=== PATIENT | female | born 1945 | race Caucasian/White ===

== ENCOUNTER → 2018-10-14 09:43 | Outpatient (CLI) | payer MEDICARE, OTHER, SELFPAY ==
--- NOTE | 2018-10-14 | DI.MG.S_ITS ---
BILATERAL DIGITAL SCREENING MAMMOGRAM 3D/2D WITH CAD: 10/14/2018 CLINICAL: Routine screening. Family history of breast cancer. Comparison is made to exams dated: 09/05/2017 mammogram, 08/12/2016 mammogram, and 08/02/2015 mammogram - [facility]. The tissue of both breasts is extremely dense, which lowers the sensitivity of mammography. Current study was also evaluated with a Computer Aided Detection (CAD) system. No significant masses, calcifications, or other findings are seen in either breast. There has been no significant interval change. IMPRESSION: NEGATIVE There is no mammographic evidence of malignancy. A 1 year screening mammogram is recommended. This exam was interpreted at Station ID: [id number]. NOTE: For mammograms, a report in lay terms will be sent to the patient. Approximately 15% of breast malignancies will not be visualized mammographically. In the management of a palpable breast mass, a negative mammogram must not discourage biopsy of a clinically suspicious lesion. Electronically Signed By: Karyn guillory/nikita:10/14/2018 16:33:29 letter sent: Normal Exam ACR BI-RADS Category 1: Negative 3341F
== END ==
PROVIDERS: PCP Internal Medicine; Visit Provider Internal Medicine
DX: Z12.31 Encounter for screening mammogram for malignant neoplasm of breast (principal); Z80.3 Family history of malignant neoplasm of breast
CPT/HCPCS: 77063; 77067

== ENCOUNTER → 2018-12-30 10:32 | Outpatient (CLI) | payer MEDICARE, OTHER, SELFPAY ==
[2018-12-30 12:14] LABS: Thyroid Stimulating Hormone 1.25 uIU/mL (0.47-4.68)
[2018-12-30 12:50] LABS: Folate 18.1 ng/mL (2.76-20.0); Vitamin B12 617 pg/mL (239-931)
== END ==
PROVIDERS: Family Provider Physician Assistant Medical; PCP Internal Medicine; Visit Provider Psychiatry & Neurology Psychiatry
DX: I47.1 Supraventricular tachycardia (principal); F39 Unspecified mood [affective] disorder
CPT/HCPCS: 36415; 82607; 82746; 84443

== ENCOUNTER → 2019-01-20 15:34 | Outpatient (CLI) | payer MEDICARE, OTHER, SELFPAY ==
[2019-01-20 16:31] LABS: Alanine Aminotransferase 19 IU/L (9-52); Albumin 4.5 g/dL (3.5-5.0); Alkaline Phosphatase 71 U/L (38-126); Aspartate Aminotransferase 22 IU/L (14-36); BUN Creatinine Ratio 16.7 (6-22); Bilirubin Total 0.1 mg/dL (0.2-1.3); Blood Urea Nitrogen 20 mg/dL (7-17); Calcium 9.8 mg/dL (8.4-10.2); Carbon Dioxide 27 mmol/L (22-32); Chloride 99 mmol/L (98-107); Estimated Glomerular Filt Rate 44.2 mL/min (>60); Globulin 2.2 g/dL (1.7-4.1); Glucose 103 mg/dL (80-110); HEMOLYSIS < 15 (0-50); Magnesium 2.1 mg/dL (1.6-2.3); Potassium 5.2 mmol/L (3.4-5.1); Sodium 135 mmol/L (137-145); Total Protein 6.7 g/dL (6.3-8.2)
== END ==
PROVIDERS: PCP Internal Medicine; Visit Provider Physician Assistant Medical
DX: I47.1 Supraventricular tachycardia (principal); B33.24 Viral cardiomyopathy
CPT/HCPCS: 36415; 80053; 83735

== ENCOUNTER → 2019-04-09 10:40 | Outpatient (CLI) | payer MEDICARE, OTHER, SELFPAY ==
--- NOTE | 2019-04-09 | DI.RAD.S_ITS ---
PROCEDURE: XR CHEST 2V INDICATIONS: COUGH TECHNIQUE: 2 views of the chest were acquired. COMPARISON: [facility], CHEST 1 VIEW, 11/14/2017, 7:41. [facility], CHEST 1 VIEW, 01/03/2008, 17:22. FINDINGS: Surgical changes and devices: None. Lungs and pleura: Lungs are clear. No pleural effusions or pneumothorax. Mediastinum: Mediastinal contours are normal. Heart size is normal. Bones and chest wall: No suspicious bony abnormalities. Soft tissues appear unremarkable. IMPRESSION: Normal for age, source of current cough symptoms is not seen. Dictated by: Gee Ash M.D. on 04/09/2019 at 11:42 Approved by: Gee Ash M.D. on 04/09/2019 at 11:42
== END ==
PROVIDERS: PCP Internal Medicine; Visit Provider Internal Medicine
DX: R05 Cough (principal)
CPT/HCPCS: 71046

== ENCOUNTER → 2019-10-07 10:28 | Outpatient (CLI) | payer MEDICARE, OTHER, SELFPAY ==
[2019-10-07 10:58] LABS: Add Manual Diff / Slide Review NO; Basophils Absolute Auto 0 /uL (0-100); Basophils Percent Auto 0.5 % (0-2); Eosinophils Absolute Auto 100 /uL (0-450); Eosinophils Percent Auto 1.4 % (2-4); Hematocrit 41.2 % (36-46); Lymphocytes Absolute Auto 1400 /uL (1100-4500); Lymphocytes Percent Auto 19.8 % (25-40); Mean Corpuscular HGB Conc 33.9 % (30-36); Mean Corpuscular Hemoglobin 32.3 PG (26-34); Mean Corpuscular Volume 95.4 fL (80-100); Monocytes Absolute Auto 500 /uL (0-900); Monocytes Percent Auto 6.5 % (3-14); Neutrophils Absolute Auto 5000 /uL (1500-7000); Neutrophils Percent Auto 71.8 % (50-75); Platelet Count 235 X10^3/uL (150-400); Red Blood Cell Count 4.32 X10^6/uL (4.0-5.2); Red Cell Distribution Width 12.7 % (11.6-14.8); White Blood Cell Count 6.9 X10^3/uL (4.5-11.0)
[2019-10-07 11:21] LABS: Erythrocyte Sedimentation Rate 1 MM/HR (0-20)
[2019-10-07 11:35] LABS: Alanine Aminotransferase 10 IU/L (<35); Albumin 4.8 g/dL (3.5-5.0); Albumin Globulin Ratio 2.4 (1.0-2.8); Alkaline Phosphatase 72 U/L (38-126); Aspartate Aminotransferase 23 IU/L (14-36); BUN Creatinine Ratio 24.5 (6-22); Bilirubin Total 0.4 mg/dL (0.2-1.3); Blood Urea Nitrogen 27 mg/dL (7-17); C-Reactive Protein Quant < 0.5 mg/dL (<1.0); Calcium 10.3 mg/dL (8.4-10.2); Carbon Dioxide 28 mmol/L (22-32); Chloride 97 mmol/L (98-107); Estimated Glomerular Filt Rate 48.8 mL/min (>60); Glucose 105 mg/dL (80-110); HEMOLYSIS < 15 (0-50); Potassium 5.5 mmol/L (3.4-5.1); Sodium 134 mmol/L (137-145); Total Protein 6.8 g/dL (6.3-8.2)
[2019-10-07 11:49] LABS: Free T4, Direct Thyroxine 1.17 ng/dL (0.78-2.19)
[2019-10-07 12:03] LABS: Thyroid Stimulating Hormone 1.94 uIU/mL (0.47-4.68)
== END ==
PROVIDERS: Family Provider Specialist; PCP Internal Medicine; Visit Provider Internal Medicine
DX: F34.0 Cyclothymic disorder (principal); N18.2 Chronic kidney disease, stage 2 (mild)
CPT/HCPCS: 36415; 80053; 84439; 84443; 85025; 85651; 86140

== ENCOUNTER → 2019-10-22 07:36 | Outpatient (CLI) | payer MEDICARE, OTHER, SELFPAY ==
--- NOTE | 2019-10-22 | DI.MRI.S_ITS ---
PROCEDURE: MR SHOULDER LT WO CON INDICATIONS: Unspecified disorder of synovium and tendon, left TECHNIQUE: Noncontrast oblique coronal T2 fast spin echo with fat saturation, oblique sagittal T1 spin echo and T2 fast spin echo with fat saturation, axial T1 spin echo and T2 fast spin echo with fat saturation through the shoulder. COMPARISON: [facility], CR, XR SHOULDER 2+ VIEWS LEFT, 08/03/2019, 9:45. FINDINGS: Image quality: Diagnostic. Rotator cuff: The supraspinatus tendon is completely torn. This tear measures at least 3.5 cm in transverse dimension with retraction of the torn tendon fragments by 3.8 cm. There is corresponding supraspinatus muscle atrophy. Mild infraspinatus muscle atrophy is present. A low to moderate grade articular surface partial thickness tearing of the distal infraspinatus tendon is present at the footprint. The subscapularis and teres minor tendons and muscles are within normal limits. Bones and bursae: No acute fracture, dislocation, or suspicious osseous lesion is identified involving the osseous structures of the shoulder. There are mild degenerative changes of the glenohumeral joint. The humeral head is high riding with respect to the glenoid with near pseudoarticulation of the undersurface of the acromion. There is a moderate-sized glenohumeral joint effusion. Mild to moderate degenerative changes of the acromial clavicular joint are present. Fluid is contained within the subacromial subdeltoid bursa. No definite intra-articular joint bodies are appreciated. Capsule and soft tissues: Evaluation of the labrum and glenohumeral ligaments is suboptimal without intra-articular contrast. However, a moderate-sized posterior labral tear is seen extending from the 6 o'clock position to the 12 o'clock position. No large paralabral cysts are evident. The long head of the biceps tendon is normally positioned within the bicipital groove and is otherwise intact. However, there is slight flattening of this tendon as it passes over the humeral head. No acute injuries are suspected involving the glenohumeral ligaments. IMPRESSION: 1. 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 2. Low to moderate grade partial-thickness tearing of the distal infraspinatus tendon with corresponding tendinopathy. 3. Moderate-sized posterior labral tear. 4. Flattening of the intra-articular portion of the biceps tendon may represent mild tendinopathy. 5. [id number] degenerative changes of the left shoulder joints. 6. Glenohumeral joint effusion. Dictated by: Doroteo Young M.D. on 10/22/2019 at 10:27 Approved by: Doroteo Young M.D. on 10/22/2019 at 10:31
== END ==
PROVIDERS: Family Provider Specialist; PCP Internal Medicine; Visit Provider Orthopaedic Surgery
DX: M75.122 Complete rotator cuff tear or rupture of left shoulder, not specified as traumatic (principal); S43.492A Other sprain of left shoulder joint, initial encounter; M25.412 Effusion, left shoulder
CPT/HCPCS: 73221

== ENCOUNTER → 2019-11-30 12:09 | Outpatient (CLI) | payer MEDICARE, OTHER, SELFPAY ==
--- NOTE | 2019-11-30 | DI.MG.S_ITS ---
BILATERAL DIGITAL SCREENING MAMMOGRAM 3D/2D WITH CAD: 11/30/2019 CLINICAL: Routine screening. Family history of breast cancer. Comparison is made to exams dated: 10/14/2018 mammogram, 09/05/2017 mammogram, 08/12/2016 mammogram, 04/17/2016 mammogram, 08/02/2015 mammogram, and 07/25/2014 mammogram - [facility]. The tissue of both breasts is extremely dense, which lowers the sensitivity of mammography. Current study was also evaluated with a Computer Aided Detection (CAD) system. No significant masses, calcifications, or other findings are seen in either breast. There has been no significant interval change. IMPRESSION: NEGATIVE There is no mammographic evidence of malignancy. A 1 year screening mammogram is recommended. This exam was interpreted at Station ID: [id number]. NOTE: For mammograms, a report in lay terms will be sent to the patient. Approximately 15% of breast malignancies will not be visualized mammographically. In the management of a palpable breast mass, a negative mammogram must not discourage biopsy of a clinically suspicious lesion. Electronically Signed By: Kranthi patel/nikita:11/30/2019 16:24:54 letter sent: Normal Exam ACR BI-RADS Category 1: Negative 3341F
== END ==
PROVIDERS: Family Provider Specialist; PCP Internal Medicine; Referring Provider Internal Medicine; Visit Provider Internal Medicine
DX: Z12.31 Encounter for screening mammogram for malignant neoplasm of breast (principal); Z80.3 Family history of malignant neoplasm of breast
CPT/HCPCS: 77063; 77067

== ENCOUNTER → 2020-02-23 07:12 | Outpatient (CLI) | payer MEDICARE, OTHER, SELFPAY ==
[2020-02-23 08:31] LABS: Alanine Aminotransferase 11 IU/L (<35); Albumin 4.5 g/dL (3.5-5.0); Alkaline Phosphatase 76 U/L (38-126); Aspartate Aminotransferase 26 IU/L (14-36); BUN Creatinine Ratio 15.3 (6-22); Bilirubin Total 0.5 mg/dL (0.2-1.3); Blood Urea Nitrogen 18 mg/dL (7-17); Calcium 9.6 mg/dL (8.4-10.2); Carbon Dioxide 29 mmol/L (22-32); Chloride 100 mmol/L (98-107); Estimated Glomerular Filt Rate 44.9 mL/min (>60); Globulin 2.3 g/dL (1.7-4.1); Glucose 101 mg/dL (80-110); HEMOLYSIS < 15 (0-50); Magnesium 2.1 mg/dL (1.6-2.3); Potassium 4.8 mmol/L (3.4-5.1); Sodium 135 mmol/L (137-145); Total Protein 6.8 g/dL (6.3-8.2)
== END ==
PROVIDERS: Family Provider Specialist; PCP Internal Medicine; Referring Provider Specialist; Visit Provider Specialist
DX: B33.24 Viral cardiomyopathy (principal); R00.2 Palpitations; R42 Dizziness and giddiness; I49.3 Ventricular premature depolarization
CPT/HCPCS: 36415; 80053; 83735

== ENCOUNTER 2020-06-13 11:42 | Emergency (ER) | payer MEDICARE, OTHER, SELFPAY ==
[2020-06-13 11:52] VITALS: BP 146/67; PULSE 71; RESP 16; TEMP 36.9; O2SAT 98
--- NOTE | 2020-06-13 11:52 | DI.RAD.S_ITS ---
PROCEDURE: XR CHEST 1V INDICATIONS: flu-like symptoms TECHNIQUE: One view of the chest was acquired. COMPARISON: [facility], CM, XR CHEST 2V, 04/09/2019, 10:44. [facility], CM, CHEST 1 VIEW, 11/14/2017, 7:41. FINDINGS: Surgical changes and devices: None. Lungs and pleura: Lungs are clear. No pleural effusions or pneumothorax. Mediastinum: Mediastinal contours appear normal. Heart size is normal. Bones and chest wall: No suspicious bony lesions. Prior left-sided rib fractures. Overlying soft tissues appear unremarkable. IMPRESSION: No airspace opacity identified. Dictated by: Kranthi Rodriguez M.D. on 06/13/2020 at 12:21 Approved by: Kranthi Rodriguez M.D. on 06/13/2020 at 12:28
[2020-06-13 12:10] LABS: Add Manual Diff / Slide Review NO; Basophils Absolute Auto 0 /uL (0-100); Basophils Percent Auto 0.6 % (0-2); Eosinophils Absolute Auto 100 /uL (0-450); Eosinophils Percent Auto 1.8 % (2-4); Hematocrit 36.4 % (36-46); Hemoglobin 12.2 g/dL (12.0-16.0); Lymphocytes Absolute Auto 1200 /uL (1100-4500); Lymphocytes Percent Auto 17.6 % (25-40); Mean Corpuscular HGB Conc 33.6 % (30-36); Mean Corpuscular Hemoglobin 31.1 PG (26-34); Mean Corpuscular Volume 92.6 fL (80-100); Monocytes Absolute Auto 400 /uL (0-900); Monocytes Percent Auto 5.8 % (3-14); Neutrophils Absolute Auto 5200 /uL (1500-7000); Neutrophils Percent Auto 74.2 % (50-75); Platelet Count 215 X10^3/uL (150-400); Red Blood Cell Count 3.94 X10^6/uL (4.0-5.2); Red Cell Distribution Width 12.6 % (11.6-14.8); White Blood Cell Count 7.1 X10^3/uL (4.5-11.0)
[2020-06-13 12:37] LABS: Lactate (Lactic Acid) 0.8 mmol/L (0.7-2.1)
[2020-06-13 12:40] LABS: Alanine Aminotransferase 12 IU/L (<35); Albumin 4.2 g/dL (3.5-5.0); Albumin Globulin Ratio 1.9 (1.0-2.8); Alkaline Phosphatase 84 U/L (38-126); Aspartate Aminotransferase 34 IU/L (14-36); BUN Creatinine Ratio 18.9 (6-22); Bilirubin Total 0.3 mg/dL (0.2-1.3); Blood Urea Nitrogen 18 mg/dL (7-17); Calcium 9.2 mg/dL (8.4-10.2); Carbon Dioxide 27 mmol/L (22-32); Chloride 98 mmol/L (98-107); Creatine Kinase 107 U/L (30-135); Estimated Glomerular Filt Rate 57.7 mL/min (>60); Globulin 2.2 g/dL (1.7-4.1); Glucose 106 mg/dL (80-110); HEMOLYSIS 18 (0-50); Lactate Dehydrogenase 531 U/L (313-618); Potassium 4.1 mmol/L (3.4-5.1); Sodium 131 mmol/L (137-145); Total Protein 6.4 g/dL (6.3-8.2)
[2020-06-13 12:44] LABS: C-Reactive Protein Quant < 0.5 mg/dL (<1.0)
[2020-06-13 12:50] LABS: NT-proBNP (BNP-Adult 18+) 359 pg/mL (<125); Troponin I < 0.012 ng/mL (0.01-0.034)
[2020-06-13 12:53] LABS: CKMB % Relative Index 1.4 % (1.5-5.0); Creatine Kinase MB 1.52 ng/mL (<2.37)
--- NOTE | 2020-06-13 13:00 | ED_ITS ---
HPI - Chest Pain General Chief Complaint: Chest Pain Stated Complaint: COVID SYMPTOMS/TEST Time Seen by Provider: 06/13/20 11:50 Source: patient Mode of arrival: Ambulatory Limitations: no limitations History of Present Illness HPI narrative: Patient here for chest tightness 5/10 for the past few days. Also complains of dyspnea. Patient states not worse with exertion. Patient was seen by primary care physician Dr. Chin this morning. Did mention to provider. Denies any recent illness cough cold congestion fever chills. Last stress test 4 years ago. Sees Cardiology Dr. Garcia annually. Related Data Home Medications Medication Instructions Recorded Confirmed CALCIUM CARBONATE (#CALCIUM) 600 mg PO BID #0 12/26/11 06/13/20 acetaminophen [Tylenol Extra 500 mg PO Q4HP PRN #0 06/24/17 06/13/20 Strength] cholecalciferol (vitamin D3) 5,000 unit PO QDAY #0 06/24/17 06/13/20 metoprolol succinate [Toprol XL] 12.5 mg PO QDAY #0 06/24/17 06/13/20 ibuprofen 200 mg capsule 200 mg PO Q4-6H PRN 12/11/18 06/13/20 ketoconazole 2 % shampoo 1 applictn TOP 2XW 12/11/18 06/13/20 ferrous sulfate 325 mg (65 mg 325 mg PO DAILY tab 02/22/19 06/13/20 iron) tablet Previous Rx's Medication Instructions Recorded fluticasone propionate 50 2 spray NASAL BEDTIME #16 gram 01/21/19 mcg/actuation nasal spray,suspension psyllium husk 3.4 gram/5.4 gram 1 tsp PO DAILY #660 gram 01/21/19 oral powder lamotrigine 100 mg tablet 100 mg PO DAILY #90 tab 12/22/19 aripiprazole 5 mg tablet 5 mg PO DAILY #90 tab 03/31/20 duloxetine 30 mg capsule,delayed 30 mg PO QAM #90 cap 03/31/20 release trazodone 100 mg tablet 200 mg PO HSP PRN #180 tab 03/31/20 oxybutynin chloride 10 mg 10 mg PO DAILY #90 tab 06/13/20 tablet,extended release 24 hr Allergies Allergy/AdvReac Type Severity Reaction Status Date / Time bacitracin Allergy Mild RASH Verified 08/18/20 09:20 [From Neosporin ([id number])] neomycin Allergy Mild RASH Verified 06/13/20 09:20 [From Neosporin ([id number])] polymyxin B Allergy Mild RASH Verified 06/13/20 09:20 [From Neosporin ([id number])] Sulfa (Sulfonamide Allergy Mild HIVES Verified 06/13/20 09:20 Antibiotics) Review of Systems Review of Systems Narrative: GENERAL: Denies chills, fatigue, malaise, fever, sweats. HEENT: Denies sinus pain, ear pain, sore throat, difficulty swallowing, dizziness. RESPIRATORY: Complains of dyspnea, denies cough, wheezing, hemoptysis, sputum. CARDIOVASCULAR: Complains chest tightness, palpitations, orthopnea, edema, GASTROINTESTINAL: Denies nausea, vomiting, abdominal pain, diarrhea, constipation, melena. : Denies dysuria, frequency, incontinence, hematuria, urinary retention. MUSCULOSKELETAL: denies weakness, joint pain, or bony pain SKIN: Denies rash, skin lesions, or other NEUROLOGIC: Denies weakness, headache, numbness, change in speech, confusion, seizures, incoordination. PSYCHIATRIC: No concerning psychosocial issues. ROS Unobtainable: All systems reviewed & are unremarkable except as noted in HPI and below Patient History Medical History Cataracts, bilateral (Chronic ~2015) Chicken pox (Resolved) Chronic renal failure, stage 2 (mild) (Chronic) Constipation (Chronic) Cyclothymia (Chronic) Depression (Chronic) Fecal incontinence (Chronic ~2014) Fractures (Resolved ~2004) Genital warts (Chronic ~1984) Heart palpitations (Chronic) History of urinary incontinence (Resolved ~2014) Incomplete left bundle branch block (LBBB) (Inactive) Lumbar spinal stenosis (Chronic) Measles (Resolved) Mixed urge and stress incontinence (Acute) Osteoporosis, unspecified (Ruled-out) Sciatica (Resolved) Viral cardiomyopathy (Chronic) Surgical History Anesthesia (Resolved) History of vaginal hysterectomy (Inactive ~1996) Melanoma (Resolved ~1981) Family History Father Hypertension Heart disease Mother Cancer Diabetes mellitus Hyperlipidemia Sister Cervical cancer Grandfather No problems noted. Grandmother Hypertension Grandmother Hypertension Social History Smoking Status: Never smoker Smoking Status: Never smoker alcohol intake frequency: 0-2 drinks per day Substance Use Type: does not use Exam Narrative Exam Narrative: GENERAL: patient appears stated age. Well-nourished, well- developed patient, in no distress, not toxic HEAD: Atraumatic. Normocephalic. EYES: Pupils equal round and reactive. Extraocular motions intact. No scleral icterus. No injection or drainage. NECK: Trachea midline. Non tender CARDIOVASCULAR: Regular rate and rhythm without murmurs, gallops, or rubs. RESPIRATORY: Clear to auscultation. Breath sounds equal bilaterally. No wheezes, rales, or rhonchi. GASTROINTESTINAL: Abdomen soft, non-tender, nondistended. EXTREMITIES: No edema or joint tenderness. BACK: Nontender without deformity or crepitance. No flank tenderness. NEURO: AOx3. SKIN: No rash or erythema of visible areas PSYCH: Not anxious, is cooperative Initial Vital Signs Initial Vital Signs: Vital Signs Temperature 98.4 F 06/13/20 11:52 Pulse Rate 71 06/13/20 11:52 Respiratory Rate 16 06/13/20 11:52 Blood Pressure 146/67 H 06/13/20 11:52 Pulse Oximetry 98 06/13/20 11:52 Course Orders Ordered: Discontinued Medications Aspirin (Aspirin) 325 mg PO NOW ONE Stop: 06/13/20 12:47 Last Admin: 06/13/20 13:48 Dose: Not Given Documented by: IGNACIO Aspirin (Aspirin Chew) 324 mg PO NOW ONE Stop: 06/13/20 13:38 Last Admin: 06/13/20 13:39 Dose: 324 mg Documented by: IGNACIO Nitroglycerin (Nitro-Bid) 0.5 inch TOP NOW ONE Stop: 06/13/20 12:47 Last Admin: 06/13/20 13:38 Dose: 0.5 inch Documented by: IGNACIO Reevaluation(s) Reevaluation #1: Chest pain-free after nitro paste Time: 14:59 Consultations Consultation #1: Spoke with her family physician Dr. Chin, he states patient can be followed up in his office, no admission at this time, advised that p atient did get chest pain relief after nitro Time: 14:59 Vital Signs Vital signs: Vital Signs - 8 hr 06/13/20 11:52 06/13/20 13:03 06/13/20 13:30 Temperature 98.4 F Pulse Rate 71 52 L 54 L Respiratory Rate 16 23 23 Blood Pressure 146/67 H 134/62 Pulse Oximetry 98 96 96 06/13/20 14:00 Temperature Pulse Rate 50 L Respiratory Rate 23 Blood Pressure 149/61 H Pulse Oximetry 97 MDM - Chest Pain Differential Diagnosis Differential diagnosis: Likely stable angina, unstable angina pectoris, atypical chest pain and chest pain Lab Data Result diagrams: 06/13/20 Unknown 06/13/20 12:00 Labs: Lab Results 06/13/20 06/13/20 06/13/20 Range/Units 12:00 12:00 12:00 WBC (4.5-11.0) X10^3/uL RBC (4.0-5.2) X10^6/uL Hgb (12.0-16.0) g/dL Hct (36-46) % MCV (80-100) fL MCH (26-34) PG MCHC (30-36) % RDW (11.6-14.8) % Plt Count (150-400) X10^3/uL Neut % (Auto) (50-75) % Lymph % (Auto) (25-40) % Bennett % (Auto) (3-14) % Eos % (Auto) (2-4) % Baso % (Auto) (0-2) % Neut # (Auto) (0973-4572) /uL Lymph # (Auto) (5518-6664) /uL Bennett # (Auto) (0-900) /uL Eos # (Auto) (0-450) /uL Baso # (Auto) (0-100) /uL Sodium 131 L (137-145) mmol/L Potassium 4.1 (3.4-5.1) mmol/L Chloride 98 (98-107) mmol/L Carbon Dioxide 27 (22-32) mmol/L BUN 18 H (7-17) mg/dL Creatinine 0.95 (0.52-1.04) mg/dL Estimated GFR 57.7 L (>60) mL/min BUN/Creatinine Ratio 18.9 (6-22) Glucose 106 (80-110) mg/dL Lactate 0.8 (0.7-2.1) mmol/L Calcium 9.2 (8.4-10.2) mg/dL Ferritin 28 (11-264) ng/mL Total Bilirubin 0.3 (0.2-1.3) mg/dL AST 34 (14-36) IU/L ALT 12 (<35) IU/L Alkaline Phosphatase 84 (38-126) U/L Lactate Dehydrogenase 531 (313-618) U/L Total Creatine Kinase 107 (30-135) U/L CK-MB (CK-2) 1.52 (<2.37) ng/mL CK-MB (CK-2) Rel Index 1.4 L (1.5-5.0) % Troponin I < 0.012 (0.01-0.034) ng/mL C-Reactive Protein < 0.5 (<1.0) mg/dL NT-Pro-B Natriuret Pep 359 H (<125) pg/mL Total Protein 6.4 (6.3-8.2) g/dL Albumin 4.2 (3.5-5.0) g/dL Globulin 2.2 (1.7-4.1) g/dL Albumin/Globulin Ratio 1.9 (1.0-2.8) Procalcitonin < 0.05 (<0.5) ng/mL 06/13/20 Range/Units Unknown WBC 7.1 (4.5-11.0) X10^3/uL RBC 3.94 L (4.0-5.2) X10^6/uL Hgb 12.2 (12.0-16.0) g/dL Hct 36.4 (36-46) % MCV 92.6 (80-100) fL MCH 31.1 (26-34) PG MCHC 33.6 (30-36) % RDW 12.6 (11.6-14.8) % Plt Count 215 (150-400) X10^3/uL Neut % (Auto) 74.2 (50-75) % Lymph % (Auto) 17.6 L (25-40) % Bennett % (Auto) 5.8 (3-14) % Eos % (Auto) 1.8 L (2-4) % Baso % (Auto) 0.6 (0-2) % Neut # (Auto) 5200 (9562-0079) /uL Lymph # (Auto) 1200 (3601-8445) /uL Bennett # (Auto) 400 (0-900) /uL Eos # (Auto) 100 (0-450) /uL Baso # (Auto) 0 (0-100) /uL Sodium (137-145) mmol/L Potassium (3.4-5.1) mmol/L Chloride (98-107) mmol/L Carbon Dioxide (22-32) mmol/L BUN (7-17) mg/dL Creatinine (0.52-1.04) mg/dL Estimated GFR (>60) mL/min BUN/Creatinine Ratio (6-22) Glucose (80-110) mg/dL Lactate (0.7-2.1) mmol/L Calcium (8.4-10.2) mg/dL Ferritin (11-264) ng/mL Total Bilirubin (0.2-1.3) mg/dL AST (14-36) IU/L ALT (<35) IU/L Alkaline Phosphatase (38-126) U/L Lactate Dehydrogenase (313-618) U/L Total Creatine Kinase (30-135) U/L CK-MB (CK-2) (<2.37) ng/mL CK-MB (CK-2) Rel Index (1.5-5.0) % Troponin I (0.01-0.034) ng/mL C-Reactive Protein (<1.0) mg/dL NT-Pro-B Natriuret Pep (<125) pg/mL Total Protein (6.3-8.2) g/dL Albumin (3.5-5.0) g/dL Globulin (1.7-4.1) g/dL Albumin/Globulin Ratio (1.0-2.8) Procalcitonin (<0.5) ng/mL Imaging Data Chest x-ray: Radiologist's Impression: [address] [address] XRay Report Signed Patient: Serenity Asher EMR#: [id number] : 1946Acct:[id number] Age/Sex: 74 / FDate of Service: 06/13/20 Loc: ED Accession Number: [id number] Procedure: XR chest 1V Ordering Provider: Mario Fisher MD PROCEDURE: XR CHEST 1V INDICATIONS: flu-like symptoms TECHNIQUE: One view of the chest was acquired. COMPARISON: [facility], , XR CHEST 2V, 04/09/2019, 10:44. [facility], CR, CHEST 1 VIEW, 11/14/2017, 7:41. FINDINGS: Surgical changes and devices: None. Lungs and pleura: Lungs are clear. No pleural effusions or pneumothorax. Mediastinum: Mediastinal contours appear normal. Heart size is normal. Bones and chest wall: No suspicious bony lesions. Prior left-sided rib fractures. Overlying soft tissues appear unremarkable. IMPRESSION: No airspace opacity identified. Dictated by: Kranthi Rodriguez M.D. on 06/13/2020 at 12:21 Approved by: Kranthi Rodriguez M.D. on 06/13/2020 at 12:28 ECG Data Attestation: I personally reviewed and interpreted this ECG as follows: Interpretation: Sinus rhythm ventricular rate [address] elevation. Other than heart rate EKG unchanged from November 14, 2017 at 7:24 a.m. [facility] Narrative Medical decision making narrative: I spoke with patient regarding results as well as my discussion with her family physician Dr. Chin, implored with pt to be admitted and for stress test. She refused. She states she is not staying here for admission or a stress test. She understands that after giving nitroglycerin and with chest pain relief it would be advisable for observation overnight and stress test. She does not want me to call her water control station engineer Dr. Antonio while she is here. Patient refuses 2nd set of troponin Discharge Plan Departure Patient Disposition: Home Clinical Impression: Atypical chest pain Discharge Date/Time: 06/13/20 15:08 Instructions: DI for Angina, DI for Chest Pain Activity Restrictions/Additional Instructions: Return immediately if you change your mind to be admitted to the hospital. Call your family doctor and water control station engineer today for office recheck this week. Prescriptions: No Action duloxetine 30 mg capsule,delayed release(DR/EC) 30 mg PO QAM Qty: 90 RF: 1 aripiprazole [Abilify] 5 mg tablet 5 mg PO DAILY Qty: 90 RF: 1 trazodone 100 mg tablet 200 mg PO HSP PRN (Reason: insomnia) Qty: 180 RF: 1 CALCIUM CARBONATE (#CALCIUM) 600 mg PO BID Qty: 0 RF: 0 cholecalciferol (vitamin D3) 5,000 UNIT capsule 5,000 unit PO QDAY Qty: 0 RF: 0 acetaminophen [Tylenol Extra Strength] 500 MG tablet 500 mg PO Q4HP PRNQty: 0 RF: 0 metoprolol succinate [Toprol XL] 25 MG tablet extended release 24 hr 12.5 mg PO QDAY Qty: 0 RF: 0 lamotrigine [Lamictal] 100 mg tablet 100 mg PO DAILY Qty: 90 RF: 3 ketoconazole 2 % shampoo 1 applictn TOP 2XW RF: 0 ibuprofen 200 mg capsule 200 mg PO Q4-6H PRNRF: 0 ferrous sulfate 325 mg (65 mg iron) tablet 325 mg PO DAILY RF: 0 oxybutynin chloride 10 mg tablet extended release 24hr 10 mg PO DAILY Qty: 90 RF: 3 Metamucil 3.4 gram/5.4 gram powder 1 tsp PO DAILY Qty: 660 RF: 0 fluticasone propionate 50 mcg/actuation spray,suspension 2 spray NASAL BEDTIME Qty: 16 RF: 0 Referrals: Joshua Chin MD [Primary Care Provider] -
[2020-06-13 13:03] VITALS: PULSE 52; RESP 23; O2SAT 96
[2020-06-13 13:05] LABS: Procalcitonin < 0.05 ng/mL (<0.5)
[2020-06-13 13:13] LABS: Ferritin 28 ng/mL (11-264)
[2020-06-13 13:30] VITALS: BP 134/62; PULSE 54; RESP 23; O2SAT 96
[2020-06-13] MEDS: NITROGLYCERIN OINT 1 INCH/GM OINT...G. 0.5 INCH TOP (13:38)
[2020-06-13] MEDS: ASPIRIN 81 MG CHEW TAB 324 MG PO (13:39)
[2020-06-13 14:00] VITALS: BP 149/61; PULSE 50; RESP 23; O2SAT 97
[2020-06-13 14:30] VITALS: BP 127/59; PULSE 56; O2SAT 95
[2020-06-14 09:38] LABS: COVID19 Sendout Not Detected (Not Detect)
== END 2020-06-13 15:08 | disposition home or self-care (01) ==
PROVIDERS: Emergency Provider Emergency Medicine; Family Provider Specialist; PCP Internal Medicine
DX: R07.89 Other chest pain (principal); R06.00 Dyspnea, unspecified; R68.89 Other general symptoms and signs
CPT/HCPCS: 36415; 71045; 80053; 82550; 82553; 82728; 83605; 83615; 83880; 84145; 84484; 85025; 86140; 87635; 93005; 93010; 99284

== ENCOUNTER → 2020-09-19 11:54 | Outpatient (CLI) | payer MEDICARE, OTHER, SELFPAY ==
--- NOTE | 2020-09-19 11:58 | DI.MRI.S_ITS ---
PROCEDURE: MR PELVIS WO CON INDICATIONS: right pelvis and leg pain TECHNIQUE: Noncontrast axial and coronal T1 spin echo and STIR through the lumbosacral plexus region. Optional contrast may be given, followed by axial and coronal T1 spin echo with fat saturation through the sacral plexus. COMPARISON: [facility], CR, XR LUMBAR SPINE WITH OLBIQUES PLUS FLEXION EXTENSION, 09/11/2020, 9:47. [facility], MR, PELVIS WITHOUT CONTRAST, 10/14/2012, 16:19. FINDINGS: Image quality: Excellent. Lumbosacral plexus: Superior to the piriformis muscles, the pre-plexal structures appear normal, including the lumbosacral trunk and S1 root. Just anterior to the piriformis muscles, the sacral plexus proper demonstrates normal morphology (lumbosacral trunk, S1 to S3 nerve roots). Inferior to the piriformis muscles, the sciatic nerves appear normal. Soft tissues: The piriformis muscles appear symmetric in size. No presacral masses. Rectum appears normal in caliber and wall thickness. No pathologic free pelvic fluid. No visualized adenopathy by size criteria. Metal artifact left buttock area. Bones: Marrow is normal in overall signal. IMPRESSION: A mass is not seen within the pelvis, an area of marrow space inflammation is not found. No impingement on the lumbosacral plexus bilaterally is identified. Overall a source of asymmetric right pelvis and leg pain is not seen. Dictated by: Gee Ash M.D. on 09/19/2020 at 13:38 Approved by: Gee Ash M.D. on 09/19/2020 at 13:44
== END ==
PROVIDERS: Family Provider Specialist; PCP Internal Medicine; Referring Provider Physical Medicine & Rehabilitation Pain Medicine; Visit Provider Physical Medicine & Rehabilitation Pain Medicine
DX: R29.898 Other symptoms and signs involving the musculoskeletal system (principal); R10.2 Pelvic and perineal pain; M79.606 Pain in leg, unspecified
CPT/HCPCS: 72195

== ENCOUNTER 2020-11-21 08:30 | Outpatient (RCR) | payer MEDICARE, OTHER, SELFPAY ==
--- NOTE | 2020-09-27 11:19 | ST.OPIE ---
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 Gurvinder Carmona Reason for Referral Changes in memory/cognitive function Setting Assessment Location Outpatient Care Visit Type Note Type Initial evaluation Next Note Type Next Note Type Treatment Note Patient Information Identification Type Name,ID Card Medical History The pt is a 74-yr-old female who was seen by this clinician last month for a community memory screening appointment. The pt scored 20/30 on SLUMS ( [facility] Mental Status Examination), indicating mild to moderate neurocognitive disorder. Language(s) Spoken in the Home Hungarian Education Level B.A. Occupation Status Retired Hearing Hearing Level Normal Vision Vision Status Impaired Comments cataracts, bilateral (~2016) Previous Therapy Previous Speech-Language Therapy No Subjective Patient Report The pt arrived on time and reported no noticeable changes in memory or cognitive function since she was first seen during the screening. She reports challenges such as paying sufficient attention, tracking topics of conversation, WFDs that result in slowed verbal expression, difficulty recalling names, slow problem solving, and memory challenges such as remembering why she came into a room or where she placed an item. Assessment Oral Motor Examination Completed No Formal Assessment Standardized Test/Screener Type Scales of Cognitive and Communicative Ability (SCCAN) Administration Complete Results Total Raw Score: 87 %ile Rank: 25 SCCAN Index: 90 Degree of Severity: Typical Functioning Oral Expression: 95% Orientation: 100% Memory: 79% Speech Comprehension: 100% Reading Comprehension: 92% Writin% Attention: 75% Problem Solvin% Findings/Results Cognitive Function Mildly impaired Findings The pt presents with mild- moderate impairments in areas of memory and attention consistent with normal aging changes. The pt scored WNL in all other areas of evaluation and demonstrated normal expressive, receptive, and pragmatic language skills in conversations related to herself, results of assessment, and initial discussions about memory and attention strategies and POC. She did not exhibit word recall difficulties and maintained topics appropriately in these limited conversations. During discussions of strategies, the pt wrote notes, occasionally asking the clinician to pause while she wrote or to repeat information that she did not hear because she was focused on writing, which reflects selective and dual attention skills. She was receptive to information and in agreement with recommendations. Cognitive Communication Deficits Self-awareness of Cognitive- Predictive awareness (able to Communication Deficits predict problem; impact of impairments) Impact on Functioning Activity Limits/Particip.Rest. Mild: General Tasks and Demands Household Tasks Interpersonal Interactions Prognosis Prognosis Good Based on Cognitive status,Comorbidities ,Duration of symptoms/severity ,Time since onset Plan of Care Speech-Language Treatment Yes Frequency 1x/wk Duration 8 - 12 wks Patient/Caregiver Education Described results of evaluation,Patient expressed understanding of evaluation, Patient expressed agreement with goals and treatment plans Short Term Goals 1. With SLOT MACHINE MECHANIC collaboration as needed, the pt will develop external memory tools (e.g., calendar, memory book, etc.) to increase her ability to recall functional information and fulfill personal/family responsibilities. 2. The pt will demonstrate understanding of internal memory strategies by completing structured memory tasks (e.g., recall a list of items, novel information, etc.) with 80% accuracy to improve memory skills and ability to perform functional tasks independently. 3. The pt will complete simple selective and dual attention tasks with 80% accuracy to improve attention skills necessary for memory support. 4. The pt will complete deductive reasoning tasks with 80% accuracy to improve problem-solving skills and processing speeds necessary for ADLs. 5. Given abstract categories, the pt will list 10 or more items in 60 seconds to improve word recall and expressive language processing speeds for expressive communication. 6. The pt will demonstrate understanding of word recall strategies by completing structured tasks with 90% accuracy and min cues to improve expressive language skills for functional conversation. Chcf Goals 1. The pt will use external memory tools in 80% of opportunities to recall functional information necessary for personal/family responsibilities and maintain/ increase independence, as measured by pt report and clinician judgment. 2. Using internal memory strategies as needed, the pt will recall information up to 5 components after a 15 min delay across 3 trials to improve memory skills necessary to complete ADLs and personal/family responsibilities. 3. The pt will complete selective and dual attention tasks of moderate complexity with 80% accuracy to improve attention skills necessary for memory support. 4. The pt will complete problem solving tasks of moderate difficulty with normal latency and 80% accuracy to improve her ability to troubleshoot functional problems in a timely manner. 5. The pt will demonstrate expressive, receptive and cognitive WFL to maintain independence and complete ADLs and personal/family responsibilities, as measured by pt report and clinician judgment. Discharge Recommendations Home
--- NOTE | 2020-10-03 11:38 | ST.OPTN ---
Visit Care Team Role Provider Type Joshua Chin MD Primary Care Provider Physician Address: [address] [place] [address], [address], [place], [address] Gurvinder Carmona DO Attending Provider Physician Referring Provider Address: [address] [place] [address], [address] , [place], [address] SCOURING PADS SUPERVISOR Treatment Note SCOURING PADS SUPERVISOR Treatment Note Start: 09/27/20 08:52 Freq: Status: Active Protocol: Document 10/03/20 11:25 JANNETTE (Rec: 10/03/20 11:26 JANNETTE [email or web address]) Speech Pathology Treatment Note Session Time Visit Start Time 08:30 Visit Stop Time 09:15 Total Visit Minutes 45 Visit Information Visit Number [id number] Plan of Care Dates 09/27/20 - 12/26/20 Insurance Information Medicare Setting Treatment Setting Outpatient Care Visit Type Note Type Treatment Note Next Note Type Next Note Type Treatment Note General Information General Information The pt is a 74-yr-old female who was seen by this clinician last month for a community memory screening appointment. The pt scored 20/30 on SLUMS ( [facility] Mental Status Examination), indicating mild to moderate neurocognitive disorder. She reports challenges such as paying sufficient attention, tracking topics of conversation, WFDs that result in slowed verbal expression, difficulty recalling names, slow problem solving, and memory challenges such as remembering why she came into a room or where she placed an item. Subjective Observations/Patient Presentation The pt arrived on time and reported having implemented many of the strategies discussed at last session. She felt the strategies were helping when she remembered to use them, and felt that she was becoming more familiar with them. Chief Complaint(s) Cognitive Rehab Expectation/Goals: Patient Goals Improve memory, attention, problem-solving Patient Knowledge/Awareness of SCOURING PADS SUPERVISOR Role Good in Treatment Patient/Caregiver Compliance with Home Excellent Exercise Program Objective Short Term Goals 1. With SCOURING PADS SUPERVISOR collaboration as needed, the pt will develop external memory tools (e.g., calendar, memory book, etc.) to increase her ability to recall functional information and fulfill personal/family responsibilities. 2. The pt will demonstrate understanding of internal memory strategies by completing structured memory tasks (e.g., recall a list of items, novel information, etc. ) with 80% accuracy to improve memory skills and ability to perform functional tasks independently. 3. The pt will complete simple selective and dual attention tasks with 80% accuracy to improve attention skills necessary for memory support. 4. The pt will complete deductive reasoning tasks with 80% accuracy to improve problem-solving skills and processing speeds necessary for ADLs. 5. Given abstract categories, the pt will list 10 or more items in 60 seconds to improve word recall and expressive language processing speeds for expressive communication. 6. The pt will demonstrate understanding of word recall strategies by completing structured tasks with 90% accuracy and min cues to improve expressive language skills for functional conversation. Supply Aide Goals 1. The pt will use external memory tools in 80% of opportunities to recall functional information necessary for personal/family responsibilities and maintain/ increase independence, as measured by pt report and clinician judgment. 2. Using internal memory strategies as needed, the pt will recall information up to 5 components after a 15 min delay across 3 trials to improve memory skills necessary to complete ADLs and personal/family responsibilities. 3. The pt will complete selective and dual attention tasks of moderate complexity with 80% accuracy to improve attention skills necessary for memory support. 4. The pt will complete problem solving tasks of moderate difficulty with normal latency and 80% accuracy to improve her ability to troubleshoot functional problems in a timely manner. 5. The pt will demonstrate expressive, receptive and cognitive WFL to maintain independence and complete ADLs and personal/family responsibilities, as measured by pt report and clinician judgment. Treatment Activities Educated and trained pt in areas of cognitive organization and memory strategies via categorical naming and number and word recall tasks. The pt was highly responsive to all training, particularly cognitive organization for categorical naming (concrete), completing strategies independently following initial instruction. Although initially doubtful of strategies to recall numbers, she did identify various patterns/associations between numbers when presented with 4- digit spans. Skilled feedback was provided RE the need for training herself to think in new ways and view numbers with a new perspective, as one might when learning about art or poetry. This seemed to resonate with the pt, and she became increasingly optimistic about number strategies. She verbalized understanding of word recall strategies. Further practice and reinforcement is needed in all of these tasks/areas. Education was provided in writing with exercises for home practice. The pt expressed appreciation. Assessment Patient Response to Treatment Excellent Rehab Potential Excellent Impairments Identified Attention,Cognitive-Linguistic Skills,Memory - Short Term, Memory - Working,Problem Solving Progress Towards Goals Excellent Progress Assessment of Overall Progress Improving Assessment of Improvement The pt has demonstrated excellent understanding and application of education and strategies targeted. She remains eagerly participatory and motivated to improve skills. Reviewed with Patient Goals,Progress Being Made,Home Exercise Program Patient/Caregiver Understanding Excellent Plan Therapeutic Contents Client Education,Cognitive- Linguistic Training,Home Exercise Program Provided Patient/Caregiver Instruction Home Exercise Program,Plan of Care,Questions/Concerns Therapy Recommendations Continue with Current Program
--- NOTE | 2020-10-10 11:37 | ST.OPTN ---
Visit Care Team Role Provider Type Joshua Chin MD Primary Care Provider Physician Address: [address] [place] [address], [address], [place], [address] Gurvinder Carmona DO Attending Provider Physician Referring Provider Address: [address] [place] [address], [address] , [place], [address] POLE TESTER Treatment Note POLE TESTER Treatment Note Start: 09/27/20 08:52 Freq: Status: Active Protocol: Document 10/10/20 11:22 JANNETTE (Rec: 10/10/20 11:36 JANNETTE [email or web address]) Speech Pathology Treatment Note Session Time Visit Start Time 09:30 Visit Stop Time 10:20 Total Visit Minutes 50 Visit Information Visit Number 12/06 Plan of Care Dates 09/27/20 - 12/26/20 Insurance Information Medicare Setting Treatment Setting Outpatient Care Visit Type Note Type Treatment Note Next Note Type Next Note Type Treatment Note General Information General Information The pt is a 74-yr-old female who was seen by this clinician last month for a community memory screening appointment. The pt scored 20/30 on SLUMS ( [facility] Mental Status Examination), indicating mild to moderate neurocognitive disorder. She reports challenges such as paying sufficient attention, tracking topics of conversation, WFDs that result in slowed verbal expression, difficulty recalling names, slow problem solving, and memory challenges such as remembering why she came into a room or where she placed an item. Subjective Observations/Patient Presentation The pt arrived on time and reported having implemented many of the strategies discussed at last session. She had questions related to remembering numbers, To-Do list items, and problem solving. She was highly participatory and took notes throughout the session to assist in memory and carryover of therapeutic targets. Chief Complaint(s) Cognitive Rehab Expectation/Goals: Patient Goals Improve memory, attention, problem-solving Patient Knowledge/Awareness of POLE TESTER Role Good in Treatment Patient/Caregiver Compliance with Home Excellent Exercise Program Objective Short Term Goals 1. With POLE TESTER collaboration as needed, the pt will develop external memory tools (e.g., calendar, memory book, etc.) to increase her ability to recall functional information and fulfill personal/family responsibilities. 2. The pt will demonstrate understanding of internal memory strategies by completing structured memory tasks (e.g., recall a list of items, novel information, etc. ) with 80% accuracy to improve memory skills and ability to perform functional tasks independently. 3. The pt will complete simple selective and dual attention tasks with 80% accuracy to improve attention skills necessary for memory support. 4. The pt will complete deductive reasoning tasks with 80% accuracy to improve problem-solving skills and processing speeds necessary for ADLs. 5. Given abstract categories, the pt will list 10 or more items in 60 seconds to improve word recall and expressive language processing speeds for expressive communication. 6. The pt will demonstrate understanding of word recall strategies by completing structured tasks with 90% accuracy and min cues to improve expressive language skills for functional conversation. Nuclear Equipment Test Engineer Goals 1. The pt will use external memory tools in 80% of opportunities to recall functional information necessary for personal/family responsibilities and maintain/ increase independence, as measured by pt report and clinician judgment. 2. Using internal memory strategies as needed, the pt will recall information up to 5 components after a 15 min delay across 3 trials to improve memory skills necessary to complete ADLs and personal/family responsibilities. 3. The pt will complete selective and dual attention tasks of moderate complexity with 80% accuracy to improve attention skills necessary for memory support. 4. The pt will complete problem solving tasks of moderate difficulty with normal latency and 80% accuracy to improve her ability to troubleshoot functional problems in a timely manner. 5. The pt will demonstrate expressive, receptive and cognitive WFL to maintain independence and complete ADLs and personal/family responsibilities, as measured by pt report and clinician judgment. Treatment Activities Answered pt's questions RE recalling numbers and verbal lists with oral explanations and demonstration. The pt was able to recall a list of 9 items from today's To Do list by visualizing her route around [facility] to accomplish the tasks. Using that list, continued training in memory strategies using chunking and kenny words as trigger words. The pt verbalized understanding and recalled all 9 items without hesitation using these strategies. Initiated training in problem solving skills using the Goal- Ucyj-Gd-Dwewcu (GPDR) technique. Instruction was provided while the pt identified components provided on a worksheet using a task she does easily and well, weekly meal planning. The pt then identified a task she wished to improve on - maintaining communication with others via phone, text and email. This included communications with friends, family, doctors, and utility providers. With min-mod prompts from POLE TESTER, the pt talked through the Goal and Plan sections, including identifying helpful strategies (e.g., to prevent distractions, procrastination, etc.) and time constraints. She was instructed to complete the task 1-3 times over the next week, as appropriate to her needs, and return with completed forms for review at next session. She verbalized understanding of technique and instructions. Assessment Patient Response to Treatment Excellent Rehab Potential Excellent Impairments Identified Attention,Cognitive-Linguistic Skills,Memory - Short Term, Memory - Working,Problem Solving Progress Towards Goals Excellent Progress Assessment of Overall Progress Improving Assessment of Improvement The pt has demonstrated excellent understanding and application of education and strategies targeted, as well as carryover of targets to functional tasks. She asked good questions today and was responsive to feedback and further training. She exhibited excellent initial understanding of GPDR technique and remains motivated to improve skills. Reviewed with Patient Goals,Progress Being Made,Home Exercise Program Patient/Caregiver Understanding Excellent Plan Frequency of Treatment Once a Week Length of Session 45 Minutes Treatment Emphasis Next Session Cont GPDR technique and other problem-solving strategies Therapeutic Contents Client Education,Cognitive- Linguistic Training,Home Exercise Program Provided Patient/Caregiver Instruction Home Exercise Program,Plan of Care,Questions/Concerns Therapy Recommendations Continue with Current Program
--- NOTE | 2020-10-24 18:01 | ST.OPTN ---
Visit Care Team Role Provider Type Joshua Chin MD Primary Care Provider Physician Address: [address] [place] [address], [address], [place], [address] Gurvinder Carmona DO Attending Provider Physician Referring Provider Address: [address] [place] [address], [address] , [place], [address] PATTERN CLERK Treatment Note PATTERN CLERK Treatment Note Start: 09/27/20 08:52 Freq: Status: Active Protocol: Document 10/24/20 17:39 JANNETTE (Rec: 10/24/20 18:01 JANNETTE [id number]) Speech Pathology Treatment Note Session Time Visit Start Time 08:35 Visit Stop Time 09:20 Total Visit Minutes 45 Visit Information Visit Number 01/03 Plan of Care Dates 09/27/20 - 12/26/20 Insurance Information Medicare Setting Treatment Setting Outpatient Care Visit Type Note Type Treatment Note Next Note Type Next Note Type Treatment Note General Information General Information The pt is a 74-yr-old female who was seen by this clinician last month for a community memory screening appointment. The pt scored 20/30 on SLUMS ( [facility] Mental Status Examination), indicating mild to moderate neurocognitive disorder. She reports challenges such as paying sufficient attention, tracking topics of conversation, WFDs that result in slowed verbal expression, difficulty recalling names, slow problem solving, and memory challenges such as remembering why she came into a room or where she placed an item. Subjective Observations/Patient Presentation The pt arrived 5 min late and reported having difficulty using strategies for recalling numbers that have been trained in previous sessions; however, with rehearsal, she has been able to recall phone numbers. She also has been challenging herself to recall information she reads about and has been having success with this. As always, she was highly participatory and took notes throughout the session to assist in memory and carryover of therapeutic targets. Chief Complaint(s) Cognitive Rehab Expectation/Goals: Patient Goals Improve memory, attention, problem-solving Patient Knowledge/Awareness of PATTERN CLERK Role Good in Treatment Patient/Caregiver Compliance with Home Excellent Exercise Program Objective Short Term Goals 1. With PATTERN CLERK collaboration as needed, the pt will develop external memory tools (e.g., calendar, memory book, etc.) to increase her ability to recall functional information and fulfill personal/family responsibilities. 2. The pt will demonstrate understanding of internal memory strategies by completing structured memory tasks (e.g., recall a list of items, novel information, etc. ) with 80% accuracy to improve memory skills and ability to perform functional tasks independently. 3. The pt will complete simple selective and dual attention tasks with 80% accuracy to improve attention skills necessary for memory support. 4. The pt will complete deductive reasoning tasks with 80% accuracy to improve problem-solving skills and processing speeds necessary for ADLs. 5. Given abstract categories, the pt will list 10 or more items in 60 seconds to improve word recall and expressive language processing speeds for expressive communication. 6. The pt will demonstrate understanding of word recall strategies by completing structured tasks with 90% accuracy and min cues to improve expressive language skills for functional conversation. [employer] Court Justice Goals 1. The pt will use external memory tools in 80% of opportunities to recall functional information necessary for personal/family responsibilities and maintain/ increase independence, as measured by pt report and clinician judgment. 2. Using internal memory strategies as needed, the pt will recall information up to 5 components after a 15 min delay across 3 trials to improve memory skills necessary to complete ADLs and personal/family responsibilities. 3. The pt will complete selective and dual attention tasks of moderate complexity with 80% accuracy to improve attention skills necessary for memory support. 4. The pt will complete problem solving tasks of moderate difficulty with normal latency and 80% accuracy to improve her ability to troubleshoot functional problems in a timely manner. 5. The pt will demonstrate expressive, receptive and cognitive WFL to maintain independence and complete ADLs and personal/family responsibilities, as measured by pt report and clinician judgment. Treatment Activities Continued training of GPDR problem solving technique. Pt identified a cooking goal and listed all materials and steps to completing it. She estimated it will take 30 min to complete. She identified having difficulty recalling recipe instructions as a potential problem during the task. Discussed strategies such as reading the recipe once or twice prior to starting cooking, lining up all ingredients to minimize distractions, and saying steps or quantities of ingredients aloud to assist recall. Initiated education and training in strategies to assist in expressive communication during events of WFDs or slowed processing speeds, including using go-to statements and fillers (e.g. , uh, so, etc.) to fill pauses in speech to maintain the conversation and provide added processing time. The pt was receptive to these recommendations and verbalized observations of the PATTERN CLERK doing these things, as well as using body language, during the conversation and noted that these were helpful. Provided education and recommendations RE exercises to increase word recall and processing speeds, including word puzzles/games, reading aloud and challenging herself to complete tasks within time limits. Assessment Patient Response to Treatment Excellent Rehab Potential Excellent Impairments Identified Attention,Cognitive-Linguistic Skills,Memory - Short Term, Memory - Working,Problem Solving Progress Towards Goals Excellent Progress Assessment of Overall Progress Improving Assessment of Improvement The pt continues to ask excellent questions during treatment and was receptive to all areas of education and training provided today. She was highly observant of the PATTERN CLERK's usage of recommended strategies in conversation and noted their benefit, which increased her interest in using them. Will f/u at next session. Reviewed with Patient Goals,Progress Being Made,Home Exercise Program Patient/Caregiver Understanding Excellent Plan Frequency of Treatment Once a Week Length of Session 45 Minutes Treatment Emphasis Next Session Cont GPDR technique and other problem-solving strategies Therapeutic Contents Client Education,Cognitive- Linguistic Training,Home Exercise Program Provided Patient/Caregiver Instruction Home Exercise Program,Plan of Care,Questions/Concerns Therapy Recommendations Continue with Current Program
--- NOTE | 2020-10-31 11:18 | ST.OPTN ---
Visit Care Team Role Provider Type Joshua Chin MD Primary Care Provider Physician Address: [address] [place] [address], [address], [place], [address] Gurvinder Carmona DO Attending Provider Physician Referring Provider Address: [address] [place] [address], [address] , [place], [address] POLITICAL SCIENCE CHAIR Treatment Note POLITICAL SCIENCE CHAIR Treatment Note Start: 09/27/20 08:52 Freq: Status: Active Protocol: Document 10/31/20 09:21 JANNETTE (Rec: 10/31/20 09:31 JANNETTE [id number]) Speech Pathology Treatment Note Session Time Visit Start Time 08:30 Visit Stop Time 09:15 Total Visit Minutes 45 Visit Information Visit Number 4 Plan of Care Dates 09/27/20 - 12/26/20 Insurance Information Medicare Setting Treatment Setting Outpatient Care Visit Type Note Type Treatment Note Next Note Type Next Note Type Treatment Note General Information General Information The pt is a 74-yr-old female who was seen by this clinician last month for a community memory screening appointment. The pt scored 20/30 on SLUMS ( [facility] Mental Status Examination), indicating mild to moderate neurocognitive disorder. She reports challenges such as paying sufficient attention, tracking topics of conversation, WFDs that result in slowed verbal expression, difficulty recalling names, slow problem solving, and memory challenges such as remembering why she came into a room or where she placed an item. Subjective Observations/Patient Presentation The pt arrived on time. Reported ongoing use of strategies targeted in therapy . She brought a grocery list of 11 items that she had used for memory training this weeki . Chief Complaint(s) Cognitive Rehab Expectation/Goals: Patient Goals Improve memory, attention, problem-solving Patient Knowledge/Awareness of POLITICAL SCIENCE CHAIR Role Good in Treatment Patient/Caregiver Compliance with Home Excellent Exercise Program Objective Short Term Goals 1. With POLITICAL SCIENCE CHAIR collaboration as needed, the pt will develop external memory tools (e.g., calendar, memory book, etc.) to increase her ability to recall functional information and fulfill personal/family responsibilities. 2. The pt will demonstrate understanding of internal memory strategies by completing structured memory tasks (e.g., recall a list of items, novel information, etc. ) with 80% accuracy to improve memory skills and ability to perform functional tasks independently. 3. The pt will complete simple selective and dual attention tasks with 80% accuracy to improve attention skills necessary for memory support. 4. The pt will complete deductive reasoning tasks with 80% accuracy to improve problem-solving skills and processing speeds necessary for ADLs. 5. Given abstract categories, the pt will list 10 or more items in 60 seconds to improve word recall and expressive language processing speeds for expressive communication. 6. The pt will demonstrate understanding of word recall strategies by completing structured tasks with 90% accuracy and min cues to improve expressive language skills for functional conversation. Correction Goals 1. The pt will use external memory tools in 80% of opportunities to recall functional information necessary for personal/family responsibilities and maintain/ increase independence, as measured by pt report and clinician judgment. 2. Using internal memory strategies as needed, the pt will recall information up to 5 components after a 15 min delay across 3 trials to improve memory skills necessary to complete ADLs and personal/family responsibilities. 3. The pt will complete selective and dual attention tasks of moderate complexity with 80% accuracy to improve attention skills necessary for memory support. 4. The pt will complete problem solving tasks of moderate difficulty with normal latency and 80% accuracy to improve her ability to troubleshoot functional problems in a timely manner. 5. The pt will demonstrate expressive, receptive and cognitive WFL to maintain independence and complete ADLs and personal/family responsibilities, as measured by pt report and clinician judgment. Treatment Activities Pt recalled 10/11 grocery items independently, additional item with categorical cue. Pt primarily using visualization strategies - visualizing grocery store as well as written list. Pt informed that Dr. Carmona may reach out to POLITICAL SCIENCE CHAIR to discuss whether referral to Dr Leslie Moran for neuropsych testing is recommended. Discussed goals, progress and POC. Feedback provided. Initiated education and training in selective and dual attention skills. Using cooking as example, the pt identified 4 strategies that she could use to monitor one part of meal prep while attending to another. Also identified common distractors and, with POLITICAL SCIENCE CHAIR collaboration, created strategies to prioritize and manage or eliminate tasks and distractors. Assessment Patient Response to Treatment Excellent Rehab Potential Excellent Impairments Identified Attention,Cognitive-Linguistic Skills,Memory - Short Term, Memory - Working,Problem Solving Progress Towards Goals Excellent Progress Assessment of Overall Progress Improving Assessment of Improvement The pt continues to ask excellent questions during treatment and was receptive to all areas of education and training provided today. She is making excellent progress in adapting therapeutic strategies into functional tasks. She also exhibited good metacognitive skills today, as she demonstrated increased independence in identifying/ creating both internal strategies and external tools that could assist her in being more successful. The pt exhibits deficits that are common with the natural aging process. She has demonstrated the ability to learn new strategies, recall and use strategies and information provided, recall targeted items after significant delays. Concern of progressive cognitive impairment, including dementia , is low. Evaluation measures taken at [facility] include SLUMS and SCCAN assessments, which may serve as baseline measures. Re -evaluation using MoCA will be completed at next session. If scores reflect either no improvement or decline, Dr. Carmona will be informed for consultation RE referral for neuropsych assessment. Email to Dr. Carmona was sent to communicate this assessment and plan. Reviewed with Patient Goals,Progress Being Made,Home Exercise Program Patient/Caregiver Understanding Excellent Plan Frequency of Treatment Once a Week Length of Session 45 Minutes Treatment Emphasis Next Session MoCA; F/U attn skills; initiate problem solving Therapeutic Contents Client Education,Cognitive- Linguistic Training,Home Exercise Program Provided Patient/Caregiver Instruction Home Exercise Program,Plan of Care,Questions/Concerns Therapy Recommendations Continue with Current Program
--- NOTE | 2020-11-07 09:33 | ST.OPTN ---
Visit Care Team Role Provider Type Joshua Chin MD Primary Care Provider Physician Address: [address] [place] [address], [address], [place], [address] Gurvinder Carmona DO Attending Provider Physician Referring Provider Address: [address] [place] [address], [address] , [place], [address] PILL MAKER Treatment Note PILL MAKER Treatment Note Start: 09/27/20 08:52 Freq: Status: Active Protocol: Document 11/07/20 09:23 JANNETTE (Rec: 11/07/20 09:33 JANNETTE [id number]) Speech Pathology Treatment Note Session Time Visit Start Time 08:30 Visit Stop Time 09:15 Total Visit Minutes 45 Visit Information Visit Number 5 Plan of Care Dates 09/27/20 - 12/26/20 Insurance Information Medicare Setting Treatment Setting Outpatient Care Visit Type Note Type Treatment Note Next Note Type Next Note Type Treatment Note General Information General Information The pt is a 74-yr-old female who was seen by this clinician last month for a community memory screening appointment. The pt scored 20/30 on SLUMS ( [facility] Mental Status Examination), indicating mild to moderate neurocognitive disorder. She reports challenges such as paying sufficient attention, tracking topics of conversation, WFDs that result in slowed verbal expression, difficulty recalling names, slow problem solving, and memory challenges such as remembering why she came into a room or where she placed an item. Subjective Observations/Patient Presentation The pt arrived on time. Reported ongoing use of strategies targeted in therapy . She had questions related to recalling things she wants to say while listening to others , and asked for further training in categorical naming tasks. Chief Complaint(s) Cognitive Rehab Expectation/Goals: Patient Goals Improve memory, attention, problem-solving Patient Knowledge/Awareness of PILL MAKER Role Good in Treatment Patient/Caregiver Compliance with Home Excellent Exercise Program Objective Short Term Goals 1. With PILL MAKER collaboration as needed, the pt will develop external memory tools (e.g., calendar, memory book, etc.) to increase her ability to recall functional information and fulfill personal/family responsibilities. 2. The pt will demonstrate understanding of internal memory strategies by completing structured memory tasks (e.g., recall a list of items, novel information, etc. ) with 80% accuracy to improve memory skills and ability to perform functional tasks independently. 3. The pt will complete simple selective and dual attention tasks with 80% accuracy to improve attention skills necessary for memory support. 4. The pt will complete deductive reasoning tasks with 80% accuracy to improve problem-solving skills and processing speeds necessary for ADLs. 5. Given abstract categories, the pt will list 10 or more items in 60 seconds to improve word recall and expressive language processing speeds for expressive communication. 6. The pt will demonstrate understanding of word recall strategies by completing structured tasks with 90% accuracy and min cues to improve expressive language skills for functional conversation. [facility] Goals 1. The pt will use external memory tools in 80% of opportunities to recall functional information necessary for personal/family responsibilities and maintain/ increase independence, as measured by pt report and clinician judgment. 2. Using internal memory strategies as needed, the pt will recall information up to 5 components after a 15 min delay across 3 trials to improve memory skills necessary to complete ADLs and personal/family responsibilities. 3. The pt will complete selective and dual attention tasks of moderate complexity with 80% accuracy to improve attention skills necessary for memory support. 4. The pt will complete problem solving tasks of moderate difficulty with normal latency and 80% accuracy to improve her ability to troubleshoot functional problems in a timely manner. 5. The pt will demonstrate expressive, receptive and cognitive WFL to maintain independence and complete ADLs and personal/family responsibilities, as measured by pt report and clinician judgment. Treatment Activities Education provided RE selective, alternating and divided attention skills using functional examples from the pt's experiences. Also educated pt RE working and short term memory skills, particularly as related to recalling topics she wishes to discuss while in a conversation with others. Pt stated she often will have a thought but lose it d/t distractions while listening to others. Trained pt in strategy in which one briefly and politely interrupts the speaker, asking that person to remember a kenny word related to the topic to be recalled later. The pt stated the process sounded cumbersome but that she would try it with her . Encouraged pt to try it with the PILL MAKER during the session, but no opportunity presented itself. Continued training in categorical naming task using words that begin with certain letters. Demonstration provided using an alphabetical strategy with letter F. Using the strategy, the pt then named 14 words beginning with M in 2 minutes. Feedback and further training provided. Instructed pt to always questions, How can I make things simple and organized? when feeling stuck in any cognitive task. Administration of MoCA not completed d/t time restraints after addressing pt's questions. Assessment Patient Response to Treatment Excellent Rehab Potential Excellent Impairments Identified Attention,Cognitive-Linguistic Skills,Memory - Short Term, Memory - Working,Problem Solving Progress Towards Goals Excellent Progress Assessment of Overall Progress Improving Assessment of Improvement As always, the pt asked excellent questions during treatment and was receptive to all areas of education and training provided today. She continues to progress in adapting therapeutic strategies into functional tasks. She demonstrated improved ability with abstract categorical naming task targeted today. Reviewed with Patient Goals,Progress Being Made,Home Exercise Program Patient/Caregiver Understanding Excellent Plan Frequency of Treatment Once a Week Length of Session 45 Minutes Treatment Emphasis Next Session MoCA; F/U attn skills; initiate problem solving Therapeutic Contents Client Education,Cognitive- Linguistic Training,Home Exercise Program Provided Patient/Caregiver Instruction Home Exercise Program,Plan of Care,Questions/Concerns Therapy Recommendations Continue with Current Program
--- NOTE | 2020-11-14 12:53 | ST.OPTN ---
Visit Care Team Role Provider Type Joshua Chin MD Primary Care Provider Physician Address: [address] [place] [address], [address], [place], [address] Gurvinder Carmona DO Attending Provider Physician Referring Provider Address: [address] [place] [address], [address] , [place], [address] WOOD FINISHER Treatment Note WOOD FINISHER Treatment Note Start: 09/27/20 08:52 Freq: Status: Active Protocol: Document 11/14/20 12:40 JANNETTE (Rec: 11/14/20 12:53 JANNETTE [id number]) Speech Pathology Treatment Note Session Time Visit Start Time 08:30 Visit Stop Time 09:15 Total Visit Minutes 45 Visit Information Visit Number 6 Plan of Care Dates 09/27/20 - 12/26/20 Insurance Information Medicare Setting Treatment Setting Outpatient Care Visit Type Note Type Treatment Note Next Note Type Next Note Type Treatment Note General Information General Information The pt is a 74-yr-old female who was seen by this clinician last month for a community memory screening appointment. The pt scored 20/30 on SLUMS ( [facility] Mental Status Examination), indicating mild to moderate neurocognitive disorder. She reports challenges such as paying sufficient attention, tracking topics of conversation, WFDs that result in slowed verbal expression, difficulty recalling names, slow problem solving, and memory challenges such as remembering why she came into a room or where she placed an item. Subjective Observations/Patient Presentation The pt arrived on time. Reported ongoing use of strategies targeted in therapy . Chief Complaint(s) Cognitive Rehab Expectation/Goals: Patient Goals Improve memory, attention, problem-solving Patient Knowledge/Awareness of WOOD FINISHER Role Excellent in Treatment Patient/Caregiver Compliance with Home Excellent Exercise Program Objective Short Term Goals 1. With WOOD FINISHER collaboration as needed, the pt will develop external memory tools (e.g., calendar, memory book, etc.) to increase her ability to recall functional information and fulfill personal/family responsibilities. 2. The pt will demonstrate understanding of internal memory strategies by completing structured memory tasks (e.g., recall a list of items, novel information, etc. ) with 80% accuracy to improve memory skills and ability to perform functional tasks independently. 3. The pt will complete simple selective and dual attention tasks with 80% accuracy to improve attention skills necessary for memory support. 4. The pt will complete deductive reasoning tasks with 80% accuracy to improve problem-solving skills and processing speeds necessary for ADLs. 5. Given abstract categories, the pt will list 10 or more items in 60 seconds to improve word recall and expressive language processing speeds for expressive communication. 6. The pt will demonstrate understanding of word recall strategies by completing structured tasks with 90% accuracy and min cues to improve expressive language skills for functional conversation. [employer] Goals 1. The pt will use external memory tools in 80% of opportunities to recall functional information necessary for personal/family responsibilities and maintain/ increase independence, as measured by pt report and clinician judgment. 2. Using internal memory strategies as needed, the pt will recall information up to 5 components after a 15 min delay across 3 trials to improve memory skills necessary to complete ADLs and personal/family responsibilities. 3. The pt will complete selective and dual attention tasks of moderate complexity with 80% accuracy to improve attention skills necessary for memory support. 4. The pt will complete problem solving tasks of moderate difficulty with normal latency and 80% accuracy to improve her ability to troubleshoot functional problems in a timely manner. 5. The pt will demonstrate expressive, receptive and cognitive WFL to maintain independence and complete ADLs and personal/family responsibilities, as measured by pt report and clinician judgment. Treatment Activities Discussed WOOD FINISHER's communication with Dr. Carmona RE if referral to Dr. Moran, Neuropsychologist, is recommended. Administered MoCA (v8.3) to pt with score of 26 /30 (WNL). After session, WOOD FINISHER communicated score to Dr. Carmona via email, stating referral to Dr. Moran is not recommended at this time. This was also communicated to the pt, who was in agreement. The pt identified a functional situation with which to employ the strategy; i.e., being too direct when talking to people, which is sometimes off-putting to her conversation partners. The pt expressed difficulty in generating alternative and more diplomatic responses. Education and training provided using the [employer] 5 Strategies to Better Communication using acronym THINK: is it True, Helpful, [employer], Necessary, Kind? Additional exercises in word recall were recommended using synonyms or alternate words/ phrases to statements the pt makes that are too direct. For example, instead of No, statements such as I don't think so, Maybe X instead, etc.The pt was responsive and appreciative of all topics covered today. She reported following the GPDR strategy when cooking with her , identifying the steps included and demonstrating good carryover of skills. Initiated education/training in problem solving strategy using hand, in which each finger respresents a step: pause, identify problem, identify alternative solutions , evaluate alternatives, choose action/act. Assessment Patient Response to Treatment Excellent Rehab Potential Excellent Impairments Identified Attention,Cognitive-Linguistic Skills,Memory - Short Term, Memory - Working,Problem Solving Progress Towards Goals Excellent Progress Assessment of Overall Progress Improving Assessment of Improvement The pt scored WNL (26/30) on MoCA, an improvement from 20/ 30 on SLUMS at [facility]. She applied strategies practiced in therapy to the assessment tasks, as well as to funcitonal tasks at home and in the community, per her reports. She was responsive to and appreciative of new strategies and recommendations addressed in today's session and is progressing nicely toward goals. Reviewed with Patient Goals,Progress Being Made,Home Exercise Program Patient/Caregiver Understanding Excellent Plan Frequency of Treatment Once a Week Length of Session 45 Minutes Treatment Emphasis Next Session MoCA; F/U attn skills; initiate problem solving Therapeutic Contents Client Education,Cognitive- Linguistic Training,Home Exercise Program Provided Patient/Caregiver Instruction Home Exercise Program,Plan of Care,Questions/Concerns Therapy Recommendations Continue with Current Program
--- NOTE | 2020-11-21 12:55 | ST.OPDS ---
Visit Care Team Role Provider Type Joshua Chin MD Primary Care Provider Physician Address: [address] [place] [address], [address], [place], [address] Gurvinder Carmona DO Attending Provider Physician Referring Provider Address: [address] [place] [address], [address] , [place], [address] GENERAL PASSENGER AGENT Treatment Note GENERAL PASSENGER AGENT Treatment Note Start: 09/27/20 08:52 Freq: Status: Active Protocol: Document 11/21/20 12:37 JANNETTE (Rec: 11/21/20 12:54 JANNETTE [id number]) Speech Pathology Treatment Note Session Time Visit Start Time 08:30 Visit Stop Time 09:15 Total Visit Minutes 45 Visit Information Visit Number 7 Plan of Care Dates 09/27/20 - 12/26/20 Insurance Information Medicare Setting Treatment Setting Outpatient Care Visit Type Note Type Discharge Summary General Information General Information The pt is a 74-yr-old female who was seen by this clinician last month for a community memory screening appointment. The pt scored 20/30 on SLUMS ( [facility] Mental Status Examination), indicating mild to moderate neurocognitive disorder. She reports challenges such as paying sufficient attention, tracking topics of conversation, WFDs that result in slowed verbal expression, difficulty recalling names, slow problem solving, and memory challenges such as remembering why she came into a room or where she placed an item. Subjective Observations/Patient Presentation The pt arrived on time. Reported ongoing use of strategies targeted in therapy . Chief Complaint(s) Cognitive Rehab Expectation/Goals: Patient Goals Improve memory, attention, problem-solving Patient Knowledge/Awareness of GENERAL PASSENGER AGENT Role Excellent in Treatment Patient/Caregiver Compliance with Home Excellent Exercise Program Objective Short Term Goals 1. With GENERAL PASSENGER AGENT collaboration as needed, the pt will develop external memory tools (e.g., calendar, memory book, etc.) to increase her ability to recall functional information and fulfill personal/family responsibilities. GOAL MET 2. The pt will demonstrate understanding of internal memory strategies by completing structured memory tasks (e.g., recall a list of items, novel information, etc. ) with 80% accuracy to improve memory skills and ability to perform functional tasks independently. GOAL MET 3. The pt will complete simple selective and dual attention tasks with 80% accuracy to improve attention skills necessary for memory support. 4. The pt will complete deductive reasoning tasks with 80% accuracy to improve problem-solving skills and processing speeds necessary for ADLs. GOAL MET WITH USE OF [id number]-REVIEW TECHNIQUE VS DEDUCTIVE REASONING. 5. Given abstract categories, the pt will list 10 or more items in 60 seconds to improve word recall and expressive language processing speeds for expressive communication. GOAL MET 6. The pt will demonstrate understanding of word recall strategies by completing structured tasks with 90% accuracy and min cues to improve expressive language skills for functional conversation. [employer] Goals 1. The pt will use external memory tools in 80% of opportunities to recall functional information necessary for personal/family responsibilities and maintain/ increase independence, as measured by pt report and clinician judgment. GOAL MET 2. Using internal memory strategies as needed, the pt will recall information up to 5 components after a 15 min delay across 3 trials to improve memory skills necessary to complete ADLs and personal/family responsibilities. GOAL MET PER PT REPORTS IN FUNCTIONAL TASKS 3. The pt will complete selective and dual attention tasks of moderate complexity with 80% accuracy to improve attention skills necessary for memory support. GOAL MET 4. The pt will complete problem solving tasks of moderate difficulty with normal latency and 80% accuracy to improve her ability to troubleshoot functional problems in a timely manner. GOAL MET 5. The pt will demonstrate expressive, receptive and cognitive WFL to maintain independence and complete ADLs and personal/family responsibilities, as measured by pt report and clinician judgment. Treatment Activities Continued training in THINK strategy to improve communication with others. Education/training provided RE consideration of audience, perspective taking, and use of go-to statements to assist in managing and problem- solving communication with difficult conversation topics. The pt provided alternative statements to responses she often gives but are sometimes received as harsh. Additionally she created one go-to statement for use with spouse during decision making conversations., demonstrating good understanding of concepts and techniques. Discussed POC and progress to date. The pt has met all goals of treatment, although some demonstration of meeting goals has been measured by pt reports from functional task completion vs accuracy obtained during structured therapeutic tasks. She reports improved memory and use of techniques. She requested discharge at this time to focus on all that has been learned with request to return to therapy in the future with new MD orders should new challenges arise or should she desire further training in targets of this course of therapy. GENERAL PASSENGER AGENT agreed with and encouraged this. Assessment Patient Response to Treatment Excellent Rehab Potential Excellent Impairments Identified Attention,Cognitive-Linguistic Skills,Memory - Short Term, Memory - Working,Problem Solving Progress Towards Goals Excellent Progress Assessment of Overall Progress Improving Assessment of Improvement Over the course of treatment, the pt has made excellent progress in use of external tools and internal strategies to improve memory, attention, problem-solving, and communication skills. She has been highly engaged and participatory, with excellent carryover of skills from therapy into functional tasks. Scores of cognitive screening tools (SLUMS and MoCA) have improved from 67% acc (20/30 pts) to 87% (26/30, WNL) since SOC. She has been a pleasure to work with and will be discharged from skilled intervention at this time. Reviewed with Patient Goals,Progress Being Made,Home Exercise Program Patient/Caregiver Understanding Excellent Plan Therapeutic Contents Client Education,Cognitive- Linguistic Training,Home Exercise Program Provided Patient/Caregiver Instruction Home Exercise Program,Plan of Care,Questions/Concerns Therapy Recommendations Discharge from Speech Therapy
== END 2020-12-01 12:24 ==
LOC: SP 08:30
PROVIDERS: PCP Internal Medicine; Referring Provider Psychiatry & Neurology Psychiatry; Visit Provider Psychiatry & Neurology Psychiatry
DX: R41.9 Unspecified symptoms and signs involving cognitive functions and awareness (principal)
CPT/HCPCS: 92507; 96125; 97129; 97130

== ENCOUNTER → 2020-12-06 15:41 | Outpatient (CLI) | payer MEDICARE, OTHER, SELFPAY ==
--- NOTE | 2020-12-06 | DI.MG.S_ITS ---
BILATERAL DIGITAL SCREENING MAMMOGRAM 3D/2D WITH CAD: 12/06/2020 CLINICAL: Routine screening. Family history of breast cancer. Comparison is made to exams dated: 11/30/2019 mammogram, 10/14/2018 mammogram, and 09/05/2017 mammogram - [facility]. The tissue of both breasts is extremely dense, which lowers the sensitivity of mammography. Current study was also evaluated with a Computer Aided Detection (CAD) system. No significant masses, calcifications, or other findings are seen in either breast. There has been no significant interval change. IMPRESSION: NEGATIVE There is no mammographic evidence of malignancy. A 1 year screening mammogram is recommended. This exam was interpreted at Station ID: [id number]. NOTE: For mammograms, a report in lay terms will be sent to the patient. Approximately 15% of breast malignancies will not be visualized mammographically. In the management of a palpable breast mass, a negative mammogram must not discourage biopsy of a clinically suspicious lesion. Electronically Signed By: Pete Echeverria acr/penrad:12/06/2020 17:03:30 letter sent: Normal Exam ACR BI-RADS Category 1: Negative [id number]
== END ==
PROVIDERS: PCP Internal Medicine; Referring Provider Internal Medicine; Visit Provider Internal Medicine
DX: Z12.31 Encounter for screening mammogram for malignant neoplasm of breast (principal); Z80.3 Family history of malignant neoplasm of breast
CPT/HCPCS: 77063; 77067

== ENCOUNTER 2020-12-13 17:13 | Emergency (ER) | payer MEDICARE, OTHER, SELFPAY ==
[2020-12-13] VITALS (7 sets, daily range): BP systolic 131–160; BP diastolic 61–75; PULSE 48–62; RESP 15–19; TEMP 36.1; O2SAT 95–100; BMI 20.9
--- NOTE | 2020-12-13 17:22 | DI.CT.S_ITS ---
PROCEDURE: CT HEAD/BRAIN WO CON INDICATIONS: unsteady on feet, last known well 2100 12/12/20 TECHNIQUE: Noncontrast 4.5 mm thick angled axial sections acquired from the foramen magnum to the vertex, with coronal and sagittal reformats. For radiation dose reduction, the following was used: automated exposure control, adjustment of mA and/or kV according to patient size. COMPARISON: None. FINDINGS: Image quality: Excellent. CSF spaces: Basal cisterns are patent. No extra-axial fluid collections. The ventricles are symmetric in size and shape. Brain: No acute intracranial hemorrhage or mass effect. There is mild cerebral volume loss for age, with resultant ventricular and sulcal prominence. There are minimal scattered periventricular and deep white matter chronic small vessel ischemic changes. There is intracranial internal carotid artery atherosclerosis. Skull and face: Calvarium and visualized facial bones appear intact, without suspicious lesions. Sinuses: Visualized sinuses and mastoids are clear. IMPRESSION: No acute intracranial abnormality. Dictated by: Rodney Carrion M.D. on 12/13/2020 at 17:46 Approved by: Rodney Carrion M.D. on 12/13/2020 at 17:49
[2020-12-13 17:41] LABS: Add Manual Diff / Slide Review NO; Basophils Absolute Auto 100 /uL (0-100); Basophils Percent Auto 0.6 % (0-2); Eosinophils Absolute Auto 100 /uL (0-450); Eosinophils Percent Auto 1.5 % (2-4); Hematocrit 41.1 % (36-46); Hemoglobin 13.7 g/dL (12.0-16.0); Lymphocytes Absolute Auto 2200 /uL (1100-4500); Lymphocytes Percent Auto 26.3 % (25-40); Mean Corpuscular HGB Conc 33.4 % (30-36); Mean Corpuscular Hemoglobin 30.3 PG (26-34); Mean Corpuscular Volume 90.8 fL (80-100); Monocytes Absolute Auto 600 /uL (0-900); Neutrophils Absolute Auto 5400 /uL (1500-7000); Neutrophils Percent Auto 64.6 % (50-75); Platelet Count 203 X10^3/uL (150-400); Red Blood Cell Count 4.52 X10^6/uL (4.0-5.2); Red Cell Distribution Width 12.7 % (11.6-14.8); White Blood Cell Count 8.4 X10^3/uL (4.5-11.0)
[2020-12-13 17:47] LABS: INR 0.9 (0.9-1.3); Prothrombin Time 10.7 SECONDS (10.1-12.7)
[2020-12-13 17:50] LABS: PTT Partial Thromboplastin Tim 28 SECONDS (26.4-36.2)
[2020-12-13 17:51] LABS: Alanine Aminotransferase 11 IU/L (<35); Albumin 4.3 g/dL (3.5-5.0); Albumin Globulin Ratio 1.9 (1.0-2.8); Alkaline Phosphatase 74 U/L (38-126); Aspartate Aminotransferase 26 IU/L (14-36); BUN Creatinine Ratio 19.5 (6-22); Bilirubin Total 0.4 mg/dL (0.2-1.3); Blood Urea Nitrogen 25 mg/dL (7-17); Calcium 9.3 mg/dL (8.4-10.2); Carbon Dioxide 27 mmol/L (22-32); Chloride 97 mmol/L (98-107); Creatine Kinase 150 U/L (30-135); Estimated Glomerular Filt Rate 40.8 mL/min (>60); Ethanol (ETOH) < 10 mg/dL; Globulin 2.3 g/dL (1.7-4.1); Glucose 102 mg/dL (80-110); HEMOLYSIS < 15 (0-50); Sodium 128 mmol/L (137-145); Total Protein 6.6 g/dL (6.3-8.2)
[2020-12-13 18:02] LABS: Troponin I < 0.012 ng/mL (0.01-0.034)
[2020-12-13 18:06] LABS: CKMB % Relative Index 1.6 % (1.5-5.0); Creatine Kinase MB 2.44 ng/mL (<2.37)
--- NOTE | 2020-12-13 19:14 | ED.NEUROSD ---
HPI - Neuro Symptoms/Deficit General Chief Complaint: Neuro Symptoms/Deficit Stated Complaint: thinks having stroke, trouble walking, tingly fing Time Seen by Provider: 12/13/20 18:46 Source: patient Mode of arrival: Ambulatory Limitations: no limitations History of Present Illness HPI Narrative: Patient is a 75-year-old female. Does have multiple chronic medical issues who is here for evaluation of symptoms that she states started when she woke up this morning. She describes tingling in her fingers and hands on both sides. She states that she feels like her hands to not work as well as they should. She also states that she is having some problems walking and feels like her legs are very heavy. She denies any other associated symptoms. She has had some muscular/neurologic issues with her right lower extremity and these have not changed. She states the symptoms she came into the emergency department today with our new symptoms. She has been taking all of her medications as directed. Has not tried anything for symptoms prior to arrival On Anticoagulants: No Related Data Home Medications Medication Instructions Recorded Confirmed CALCIUM CARBONATE (#CALCIUM) 600 mg PO BID #0 12/26/11 11/17/20 acetaminophen [Tylenol Extra 500 mg PO Q4HP PRN #0 06/24/17 11/17/20 Strength] cholecalciferol (vitamin D3) 5,000 unit PO QDAY #0 06/24/17 11/17/20 metoprolol succinate [Toprol XL] 12.5 mg PO QDAY #0 06/24/17 11/17/20 ibuprofen 200 mg capsule 200 mg PO Q4-6H PRN 12/11/18 11/17/20 ketoconazole 2 % shampoo 1 applictn TOP 2XW 12/11/18 11/17/20 ferrous sulfate 325 mg (65 mg 325 mg PO DAILY tab 02/22/19 11/17/20 iron) tablet oxybutynin chloride 5 mg tablet 5 mg PO DAILY 06/27/20 11/17/20 trazodone 100 mg tablet 150 mg PO HSP PRN tab 09/19/20 11/17/20 Previous Rx's Medication Instructions Recorded fluticasone propionate 50 2 spray NASAL BEDTIME #16 gram 01/21/19 mcg/actuation nasal spray,suspension psyllium husk 3.4 gram/5.4 gram 1 tsp PO DAILY #660 gram 01/21/19 oral powder aripiprazole 5 mg tablet 5 mg PO DAILY #90 tab 10/30/20 duloxetine 20 mg capsule,delayed 20 mg PO QAM #90 cap 10/30/20 release lamotrigine 100 mg tablet 100 mg PO DAILY #90 tab 10/30/20 Allergies Allergy/AdvReac Type Severity Reaction Status Date / Time bacitracin Allergy Mild RASH Verified 11/17/20 15:23 [From Neosporin ([id number])] neomycin Allergy Mild RASH Verified 11/17/20 15:23 [From Neosporin ([id number])] polymyxin B Allergy Mild RASH Verified 11/17/20 15:23 [From Neosporin ([id number])] Sulfa (Sulfonamide Allergy Mild HIVES Verified 11/17/20 15:23 Antibiotics) Review of Systems Constitutional Constitutional: Denies chills, Denies fever(s), Denies headache(s) and Reports weakness ENT Ears, Nose, Mouth, and Throat: Denies vertigo, Denies dizziness, Denies headache(s) and Reports disequilibrium Cardiovascular Cardiovascular: Denies chest pain and Denies dyspnea Respiratory Respiratory: Denies dyspnea Gastrointestinal Gastrointestinal: Denies abdominal pain, Denies nausea and Denies vomiting Musculoskeletal Musculoskeletal: Denies arthralgias, Denies back pain, Denies myalgias, Reports numbness and Reports tingling Integumentary/Breasts Skin/Breast: Denies lesions and Denies rash Neurologic Neurologic: Denies behavioral changes, Denies burning sensations, Denies confusion, Denies vertigo, Denies dizziness, Denies headache(s), Reports numbness, Reports tingling, Reports disequilibrium and Reports weakness Psychiatric Psychiatric: Denies behavioral changes and Denies confusion Hematologic/Lymphatic On Anticoagulants: No Allergic/Immunologic Allergic/Immunologic: Denies urticaria Patient History Medical History Cataracts, bilateral (~2015) Chicken pox Chronic renal failure, stage 2 (mild) Constipation Cyclothymia Depression Fecal incontinence (~2014) Fractures (~2004) Genital warts (~1984) Heart palpitations History of urinary incontinence (~2014) Incomplete left bundle branch block (LBBB) Lumbar spinal stenosis Measles Mixed urge and stress incontinence Osteoporosis, unspecified Sciatica Viral cardiomyopathy Surgical History Anesthesia History of vaginal hysterectomy (~1996) Melanoma (~1981) Family History Father Hypertension Heart disease Mother Cancer Diabetes mellitus Hyperlipidemia Sister Cervical cancer Grandfather No problems noted. Grandmother Hypertension Grandmother Hypertension Social History Smoking Status: Never smoker Smoking Status: Never smoker alcohol intake frequency: 0-2 drinks per day Substance Use Type: does not use Exam Initial Vital Signs Initial Vital Signs: Vital Signs Temperature 97.0 F L 12/13/20 17:16 Pulse Rate 62 12/13/20 17:16 Respiratory Rate 18 12/13/20 17:16 Blood Pressure 160/75 H 12/13/20 17:16 Pulse Oximetry 100 12/13/20 17:16 Const General: cooperative, comfortable and well developed Limitations: mental status not altered HENMT Head: normal to inspection and normocephalic Resp Effort & Inspection: normal respiratory effort Auscultation: clear to auscultation bilaterally Cardio Rate: bradycardic Rhythm: regular rhythm Pulses: radial pulses present GI Inspection: non-distended Palpation: soft Skin Lesions: no lesions Rashes: no rashes Neuro General: patient alert, patient awake and patient oriented x3 Cranial Nerves: CN's II-XI intact bilaterally Cognition: normal cognition Speech: speech normal Gait: not ataxic, shuffling and steppage Motor: no pronator drift Sensory Exam: no sensory deficits noted DTR's: Rt Triceps: 2+, Lt Triceps: 2+, Rt Patellar: 2+, Lt Patellar: 2+, Rt Ankle: 2+ and Lt Ankle: 2+ Coordination: [id number] test normal and [id number] test normal Other: Patient has a 5/5 strength bilateral upper extremities except for a 4/5 strength compared to the right of the deltoids. Patient also has 5/5 bilateral lower extremity strength except for 4/5 strength on the left quadriceps compared to 5/5 strength to the right. Patient does seem to have bilateral footdrop with walking however she is not slapping her feet on the ground with walking. Scores GCS [place] coma scale eye opening: Spontaneous [place] coma scale verbal response: Orientated Jet coma scale motor response: Obey commands [place] coma scale total score: 15 NIH Stroke Scale Level of Conciousness: Alert, keenly responsive Ask month/age: Answers both questions correctly. Open/close eyes, close hand: Performs both tasks correctly Best gaze horizontal: Normal Visual bonilla: No visual loss Facial palsy: Normal symetrical movement Left arm drift: No drift for full 10 sec Right arm drift: No drift for full 10 sec Left leg drift: No drift for full 5 sec Right leg drift: No drift for full 5 sec Limb ataxia: Absent Sensory on face/arms/legs: Normal, no sensory loss Best language: No aphasia, normal Dysarthria: Normal Extinction or inattention: No abnormality Total NIH Stroke scale score: 0 Course Orders Ordered: ED Orders 12/13/20 17:22 CT head/brain wo con Stat 12/13/20 17:24 EKG-12 Lead Stat 12/13/20 17:31 Complete Blood Count AUTO DIFF Stat Comprehensive Metabolic Panel Stat Ethanol (ETOH) Stat Partial Thromboplastin Time Stat Prothrombin Time INR Stat Troponin & CK Cardiac Panel Stat Vital Signs Vital signs: Vital Signs - 8 hr 12/13/20 17:16 12/13/20 17:32 12/13/20 17:33 Temperature 97.0 F L Pulse Rate 62 51 L 50 L Respiratory Rate 18 16 17 Blood Pressure 160/75 H 155/72 H Pulse Oximetry 100 100 100 12/13/20 17:46 12/13/20 18:00 12/13/20 18:30 Temperature Pulse Rate 52 L 48 L 50 L Respiratory Rate 18 16 15 Blood Pressure 149/63 H 131/63 145/63 H Pulse Oximetry 100 97 95 12/13/20 19:00 Temperature Pulse Rate 58 L Respiratory Rate 19 Blood Pressure 137/61 Pulse Oximetry 97 MDM - Neuro Symptoms/Deficit Medical Records Attestation: I reviewed the patient's medical records. Lab Data Attestation: I reviewed the patient's lab results. Result diagrams: 12/13/20 17:31 12/13/20 17:31 Labs: Lab Results 12/13/20 12/13/20 12/13/20 Range/Units 17:31 17:31 17:31 WBC 8.4 (4.5-11.0) X10^3/uL RBC 4.52 (4.0-5.2) X10^6/uL Hgb 13.7 (12.0-16.0) g/dL Hct 41.1 (36-46) % MCV 90.8 (80-100) fL MCH 30.3 (26-34) PG MCHC 33.4 (30-36) % RDW 12.7 (11.6-14.8) % Plt Count 203 (150-400) X10^3/uL Neut % (Auto) 64.6 (50-75) % Lymph % (Auto) 26.3 (25-40) % Crawford % (Auto) 7.0 (3-14) % Eos % (Auto) 1.5 L (2-4) % Baso % (Auto) 0.6 (0-2) % Neut # (Auto) 5400 (2247-2531) /uL Lymph # (Auto) 2200 (7192-4036) /uL Crawford # (Auto) 600 (0-900) /uL Eos # (Auto) 100 (0-450) /uL Baso # (Auto) 100 (0-100) /uL PT 10.7 (10.1-12.7) SECONDS INR 0.9 (0.9-1.3) APTT 28 (26.4-36.2) SECONDS Sodium 128 L (137-145) mmol/L Potassium 4.0 (3.4-5.1) mmol/L Chloride 97 L (98-107) mmol/L Carbon Dioxide 27 (22-32) mmol/L BUN 25 H (7-17) mg/dL Creatinine 1.28 H (0.52-1.04) mg/dL Estimated GFR 40.8 L (>60) mL/min BUN/Creatinine Ratio 19.5 (6-22) Glucose 102 (80-110) mg/dL Calcium 9.3 (8.4-10.2) mg/dL Total Bilirubin 0.4 (0.2-1.3) mg/dL AST 26 (14-36) IU/L ALT 11 (<35) IU/L Alkaline Phosphatase 74 (38-126) U/L Total Creatine Kinase 150 H (30-135) U/L CK-MB (CK-2) 2.44 H (<2.37) ng/mL CK-MB (CK-2) Rel Index 1.6 (1.5-5.0) % Troponin I < 0.012 (0.01-0.034) ng/mL Total Protein 6.6 (6.3-8.2) g/dL Albumin 4.3 (3.5-5.0) g/dL Globulin 2.3 (1.7-4.1) g/dL Albumin/Globulin Ratio 1.9 (1.0-2.8) Ethyl Alcohol < 10 ( - 10) mg/dL Point of Care Testing Glucose POC [address] scan - head: Radiologist's Impression: [address] [id number] Scan ReportSigned Patient: Serenity Asher EMR#: [id number]: 1945cct:[id number]/Sex: 75 / FDate of Service: 12/13/20Loc: EDAccession Number: [id number] Procedure: CT head/brain wo con Ordering Provider: Nisha Avery D.O. PROCEDURE: CT HEAD/BRAIN WO CON INDICATIONS: unsteady on feet, last known well 2100 12/12/20 TECHNIQUE: Noncontrast 4.5 mm thick angled axial sections acquired from the foramen magnum to the vertex, with coronal and sagittal reformats. For radiation dose reduction, the following was used: automated exposure control, adjustment of mA and/or kV according to patient size. COMPARISON: None. FINDINGS: Image quality: Excellent. CSF spaces: Basal cisterns are patent. No extra-axial fluid collections. The ventricles are symmetric in size and shape. Brain: No acute intracranial hemorrhage or mass effect. There is mild cerebral volume loss for age, with resultant ventricular and sulcal prominence. There are minimal scattered periventricular and deep white matter chronic small vessel ischemic changes. There is intracranial internal carotid artery atherosclerosis. Skull and face: Calvarium and visualized facial bones appear intact, without suspicious lesions. Sinuses: Visualized sinuses and mastoids are clear. IMPRESSION: No acute intracranial abnormality. Dictated by: Rodney Carrion M.D. on 12/13/2020 at 17:46 Approved by: Rodney Carrion M.D. on 12/13/2020 at 17:49 ECG Data Attestation: I personally reviewed and interpreted this ECG as follows: Prior ECG tracings: not available for review Interpretation: Sinus bradycardia Ventricular rate of 53 Normal axis Normal QRS Normal QTC No ST T wave changes MDM Narrative Medical decision making narrative: Patient's symptoms started this morning when she woke up and thought they or worsening until about 1300 this afternoon with any seem to have not worsened since then. She has NIH score of 0. Her head CT is unremarkable. Labs are unremarkable. On physical exam she does seem to have a bilateral footdrop with walking however with strength testing she does have good strength bilaterally except for differences in the left quadriceps and left deltoid compared to the right. Her physical exam symptoms are not consistent with a spinal cord syndrome. She has not had any trauma. No recent instrumentation is. Symptoms are not consistent with a TIA. Patient did have her COVID-19 vaccine 2 weeks ago. Low suspicion for Guillain-[place]. She has not had any travel. Unsure the exact etiology of the patient's symptoms and given her symptoms are bilateral and lower extremity an isolated to appears to be foot drop but do have low suspicion for CVA as well. I did discuss the case with Dr. Vaca who is on-call for the patient's primary provider. He will contact the patient's primary provider tomorrow to have the patient be seen in the clinic in the next couple days. The patient was adamant that she did not want to be admitted to the hospital. She was given strict return precautions. She was also instructed to contact her primary doctor in the morning. She expressed understanding agreement. Discharge Plan Departure Patient Disposition: Home Clinical Impression: Ataxia Instructions: How to Prevent Falls Activity Restrictions/Additional Instructions: Dr. Chin should be expecting her call tomorrow for follow-up in the next couple days. Continue all of your medications as directed. Return to the emergency department for any new or worsening symptoms Prescriptions: No Action duloxetine 20 mg capsule,delayed release(DR/EC) 20 mg PO QAM Qty: 90 RF: 1 aripiprazole [Abilify] 5 mg tablet 5 mg PO DAILY Qty: 90 RF: 1 lamotrigine [Lamictal] 100 mg tablet 100 mg PO DAILY Qty: 90 RF: 3 oxybutynin chloride 5 mg tablet 5 mg PO DAILY RF: 0 CALCIUM CARBONATE (#CALCIUM) 600 mg PO BID Qty: 0 RF: 0 cholecalciferol (vitamin D3) 5,000 UNIT capsule 5,000 unit PO QDAY Qty: 0 RF: 0 acetaminophen [Tylenol Extra Strength] 500 MG tablet 500 mg PO Q4HP PRNQty: 0 RF: 0 metoprolol succinate [Toprol XL] 25 MG tablet extended release 24 hr 12.5 mg PO QDAY Qty: 0 RF: 0 ketoconazole 2 % shampoo 1 applictn TOP 2XW RF: 0 ibuprofen 200 mg capsule 200 mg PO Q4-6H PRNRF: 0 ferrous sulfate 325 mg (65 mg iron) tablet 325 mg PO DAILY RF: 0 trazodone 100 mg tablet 150 mg PO HSP PRN (Reason: insomnia) RF: 0 Metamucil 3.4 gram/5.4 gram powder 1 tsp PO DAILY Qty: 660 RF: 0 fluticasone propionate 50 mcg/actuation spray,suspension 2 spray NASAL BEDTIME Qty: 16 RF: 0 Referrals: Joshua Chin MD [Primary Care Provider] -
== END 2020-12-13 19:53 | disposition home or self-care (01) ==
PROVIDERS: Emergency Medicine; Emergency Provider Emergency Medicine; PCP Internal Medicine
DX: R27.0 Ataxia, unspecified (principal); R53.1 Weakness; R00.1 Bradycardia, unspecified
CPT/HCPCS: 36415; 70450; 80053; 80320; 82550; 82553; 82962; 84484; 85025; 85610; 85730; 93005; 93010; 99284

== ENCOUNTER → 2020-12-25 07:11 | Outpatient (CLI) | payer MEDICARE, OTHER, SELFPAY ==
[2020-12-25 09:00] LABS: Alanine Aminotransferase 8 IU/L (<35); Alkaline Phosphatase 68 U/L (38-126); Aspartate Aminotransferase 23 IU/L (14-36); BUN Creatinine Ratio 13.5 (6-22); Bilirubin Total 0.4 mg/dL (0.2-1.3); Blood Urea Nitrogen 13 mg/dL (7-17); Calcium 9.6 mg/dL (8.4-10.2); Carbon Dioxide 29 mmol/L (22-32); Chloride 100 mmol/L (98-107); Estimated Glomerular Filt Rate 56.8 mL/min (>60); Glucose 108 mg/dL (80-110); HEMOLYSIS < 15 (0-50); Potassium 4.9 mmol/L (3.4-5.1); Sodium 133 mmol/L (137-145)
== END ==
PROVIDERS: PCP Internal Medicine; Referring Provider Specialist; Visit Provider Specialist
DX: R00.2 Palpitations (principal); B33.24 Viral cardiomyopathy; I49.3 Ventricular premature depolarization
CPT/HCPCS: 36415; 80053; 83735

== ENCOUNTER 2021-02-07 09:30 | Outpatient (RCR) | payer MEDICARE, OTHER, SELFPAY ==
--- NOTE | 2021-01-23 17:00 | ST.OPIE ---
Visit Care Team Role Provider Type Joshua Chin MD Attending Provider Physician Family Provider Primary Care Provider Referring Provider Specialty: Internal Medicine Address: [address] [place] [address], [address], [address] Email: [email or web address] Speech-Language Pathology Initial Evaluation LIFT BUILDER WHOLE Clinical Swallow Evaluation Start: 01/23/21 15:37 Freq: Status: Active Protocol: Document 01/23/21 15:37 JANNETTE (Rec: 01/23/21 17:00 JANNETTE [email or web address]) Clinical Swallow Evaluation Session Time Visit Start Time 15:30 Visit Stop Time 16:20 Total Visit Minutes 50 Visit Information Visit Number Initial Evaluation Plan of Care Dates 01/23/21 - 04/25/21 Insurance Information Medicare Referral Referring Provider Dr. Joshua Chin Reason for Referral Cognitive; Aerophagia Setting Assessment Location Outpatient Care Visit Type Note Type Initial evaluation Next Note Type Next Note Type Treatment Note Patient Information Identification Type Name,ID Card History The pt is a 75-yr-old female familiar to this LIFT BUILDER WHOLE from previous therapy targeting memory skills. The pt presented today with c/o frequent burping associated with swallow. She reported swallowing air mostly when swallowing food and liquid but also saliva, followed by burping immediately or within a few minutes. The pt has hx of depression and anxiety and is followed by Dr. Carmona. The pt denied association of anxiety with swallowing but did state that she often feels rushed when eating, a need to get on to other things which may contribute to swallowing of air or general distraction when eating and drinking. She reported rare mild heartburn but does not have diagnosis of reflux and does not take medicine to manage. She has not been evaluated by GI. Subjective Observations The pt arrived on time and provided case history supplemental to medical records. Reported by Patient Current Diet Regular,Thin liquids Baseline Feeding Method Independent in self-feeding Patient Questionnaire No Objective Assessment Mental Status Alert,Responsive,Cooperative Oral Integrity WFL Dentition Within normal limits Lip Function Within normal limits Observation of Lips at Rest Symmetrical Pucker Within normal limits Lip Retraction Within normal limits Alternating Pucker/Lip Retraction Within normal limits Tongue Function Within normal limits Observations of Tongue at Rest Within normal limits Tongue Protrusion Within normal limits Tongue Retraction Within normal limits Tongue Lateralization Within normal limits Jaw Function Within normal limits Observations of Jaw at Rest Within normal limits Jaw Opening Within normal limits Jaw Closing Within normal limits Jaw Lateralization Within normal limits Hard/Soft Palate Function Within normal limits Observations of Hard/Soft Palate Within normal limits Gag Reflex Within normal limits Nasality Within normal limits Phonation Within normal limits Respiratory Sufficiency Within normal limits Food and Liquid Trials Position During Assessment Upright (90 degrees) Liquids Trialed Thin Solids Trialed Regular Oral Impairment Within normal limits Oral Phase Comments Oral phase appears to be WNL from bedside evaluation. Pharyngeal Impairment Within normal limits Pharyngeal Phase Comments No overt s/sx of aspiration. No abnormally audible swallow perceived. The pt consumed trials of thin liquid and dry cracker, both in isolation and combined. She exhibited 1-3 small burps after each swallow . In most but not all trials she reported feeling a sticking sensation at mid- chest level; within ~10 seconds, she burped and the sensation was relieved. Fatigue/Endurance Endurance WNL Comment Education provided orally and with video animation RE normal oral, pharyngeal and esophageal swallow phase function; swallowing vs injection of air by habit and/ or abnormal muscular function or reduced strength and/or coordination. Discussed referral to myofunctional therapist for further evaluation vs dysphagia therapy targeting increased understanding and awareness of swallow physiology, compensatory strategies including reducing rate of intake and distractions with oral intake, and exercises to increase strength and coordination of swallow musculature. The pt preferred to pursue dysphagia therapy and, if no results, to then consider referral to myofunctional therapy. LIFT BUILDER WHOLE in agreement. Strategies Attempted Other Response/Comments Small exhale through nose prior to swallow; increased lingopalatal contact during swallow. No benefit observed with first trials. Will continue to assess over duration of practice and therapy. Findings Swallowing Function Comments Mild-moderate aerophagia Severity of Swallow Impairment Within functional limits Prognosis Good Based on Cognitive status,Duration of symptoms/severity Comment The pt presents with aerophagia likely secondary to habitual behavior and/or reduced strength and coordination of swallow musculature. The pt was highly responsive to education and training provided today. Pt to reduce speed of intake, increase awareness of swallow behaviors, and follow compensatory strategies to reduce intake of air with swallow. Will f/u in 2 wks. Impact on Safety and Functioning No limitations Comments Not a safety risk but contributes to pt discomfort Recommendations Instrumental Assessment No Swallowing Treatment Yes Frequency 3-5 visits Duration over 1-2 mos Recommended Solids Regular Recommended Liquids Thin Safety Precautions/Swallowing Reduce distractions,Small Recommendations bites and sips when eating, Slow rate; swallow between bites Medication Recommendations As Tolerated Education Patient/Caregiver Education Described results of evaluation,Patient expressed understanding of evaluation, Patient expressed agreement with goals & treatment plans, Patient requires further education/training Goals Short-term Goals 1. The pt will use compensatory swallow strategies independently to decrease intake of air with swallow. 2. The pt will perform exercises as needed to increase strength and coordination of swallow musculature to improve efficiency of swallow and decrease intake of air with swallow. Long-term Goals 1. Elimination of aerophagia symptoms; normal swallow function to improve pt comfort with oral intake and improve quality of life.
--- NOTE | 2021-02-07 12:12 | ST.IPDYTX ---
Visit Care Team Role Provider Type Joshua Chin MD Attending Provider Physician Family Provider Primary Care Provider Referring Provider Specialty: Internal Medicine Address: [address] [place] [address], [address], [address] Email: [email or web address] GEAR REPAIR SUPERVISOR Dysphagia Treatment GEAR REPAIR SUPERVISOR Dysphagia Treatment Start: 01/23/21 15:37 Freq: Status: Active Protocol: Document 02/07/21 10:18 JANNETTE (Rec: 02/07/21 10:18 JANNETTE [email or web address]) Dysphagia Treatment Session Time Visit Start Time 09:30 Visit Stop Time 10:10 Total Visit Minutes 40 Visit Information Visit Number 11/05 Plan of Care Dates 01/23/21 - 04/25/21 Insurance Information Medicare Setting Assessment Location Outpatient Care Visit Type Note Type Treatment Note Next Note Type Next Note Type Treatment Note Patient Information Subjective Observations Pt arrived on time and reported being more mindful during swallow, exhaling prior to swallowing to eliminate air in the oral cavity, and eating/drinking more slowly. These strategies have been helpful. She also reported improved memory for functional tasks, for which she had received therapy from this clinician in the past. Treatment Liquids Trialed Thin Oral Strategies Upright at 90 degrees, Controlled Bite/Sip Size Additional Dysphagia Treatment Exhale prior to swallow Strategies Treatment Activities Trained pt in lingua-palatal, base of tongue and Madeleine exercises to increase seals and air pressure involved with swallow as well as improve efficiency of pharyngeal bolus clearance to eliminate intake of excessive air that may lead to aerophagia. The pt performed all exercises as instructed. She consumed 6 oz of thin liquid over the course of the session without s/sx of aerophagia, although she did experience occ minimal burping during lingua-palatal exercise. Discussed POC. The pt stated she would like to continue independently over the next 3- 4 wks and would check in with the clinician via phone, either to schedule a f/u appt or to d/c from services. GEAR REPAIR SUPERVISOR in agreement with this plan. Assessment Patient Response to Treatment Excellent Rehab Potential Good Assessment of Improvement The pt has been compliant with HEP tasks and strategies, resulting in reduced s/sx of aerophagia. She experienced no burping with intake of 6 oz thin liquid during the session today, which is a significant improvement since last visit when she exhibited burping after every sip/swallow regardless of size. She was responsive to training and education provided today, demonstrating good understanding and ability to perform tasks as instructed. Diet Recommendations Recommendations Continue Current Diet Liquids Order Thin Diet Order Regular Medication Recommendations As Tolerated Aspiration Precautions Recommended Precautions Upright at 90 Degrees,Small Bites/Sips Additional Precautions Exhale prior to swallow to eliminate excessive air in oral/nasal cavities Treatment Plan Appropriate for Continued Therapy Yes Dysphagia Goals 1. The pt will use compensatory swallow strategies independently to decrease intake of air with swallow. 2. The pt will perform exercises as needed to increase strength and coordination of swallow musculature to improve efficiency of swallow and decrease intake of air with swallow.
--- NOTE | 2021-09-12 14:04 | ST.IPDYTX ---
Visit Care Team Role Provider Type Joshua Chin MD Attending Provider Physician Family Provider Primary Care Provider Referring Provider Specialty: Internal Medicine Address: [address] [place] [address], [address], [address] Email: [email or web address] ACADEMIC COORDINATOR Dysphagia Treatment ACADEMIC COORDINATOR Dysphagia Treatment Start: 01/23/21 15:37 Freq: Status: Active Protocol: Document 09/12/21 14:02 JANNETTE (Rec: 09/12/21 14:04 JANNETTE [email or web address]) Dysphagia Treatment Visit Information Plan of Care Dates 01/23/21 - 04/25/21 Insurance Information Medicare Setting Assessment Location Outpatient Care Visit Type Note Type Discharge Summary Patient Information Subjective Observations The pt was last seen 02/07/21 at which time she stated she would like to continue independently over the next 3- 4 wks and would check in with the clinician via phone, either to schedule a f/u appt or to d/c from services. The pt has not communicated desire for ongoing therapy and is discharged from skilled intervention at this time. Treatment Plan Appropriate for Continued Therapy No: Discharge
== END 2021-11-27 09:42 ==
LOC: SP 09:30
PROVIDERS: Family Provider Internal Medicine; PCP Internal Medicine; Referring Provider Internal Medicine; Visit Provider Internal Medicine
DX: R41.9 Unspecified symptoms and signs involving cognitive functions and awareness (principal); F45.8 Other somatoform disorders
CPT/HCPCS: 92526; 92610

== ENCOUNTER → 2021-03-23 12:04 | Outpatient (CLI) | payer MEDICARE, OTHER, SELFPAY ==
--- NOTE | 2021-03-23 12:06 | DI.RAD.S_ITS ---
PROCEDURE: XR RIBS LT MIN 3V W CXR1V INDICATIONS: LEFT rib pain TECHNIQUE: 2 views of the left ribs were acquired, along with a single view chest. COMPARISON: None. FINDINGS: Surgical changes and devices: None. Bones and chest wall: No acute fractures or dislocations but left-sided posterolateral 6th and 7th rib fractures that appear healed are noted.. No suspicious bony lesions. Overlying soft tissues appear unremarkable. Lungs and pleura: No pleural effusions or pneumothorax. Lungs appear clear. Mediastinum: Mediastinal contours appear normal. Heart size is normal. IMPRESSION: No acute disease, source of rib pain is not identified. Old left posterolateral rib fractures incidentally noted Dictated by: Gee Ash M.D. on 03/23/2021 at 12:55 Approved by: Gee Ash M.D. on 03/23/2021 at 12:56
== END ==
PROVIDERS: Family Provider Internal Medicine; PCP Internal Medicine; Referring Provider Physician Assistant; Visit Provider Physician Assistant
DX: R07.81 Pleurodynia (principal)
CPT/HCPCS: 71101

== ENCOUNTER 2021-04-12 09:53 | Emergency (ER) | payer MEDICARE, OTHER, SELFPAY ==
[2021-04-12 09:50] VITALS: BP 185/92; PULSE 69; RESP 16; TEMP 36.6; O2SAT 98; BMI 21.2
--- NOTE | 2021-04-12 10:07 | DI.RAD.S_ITS ---
PROCEDURE: XR CHEST 2V INDICATIONS: fall, sternal and mid anterior chest rib pain TECHNIQUE: 2 views of the chest were acquired. COMPARISON: [facility], CR, XR CHEST 1V, 06/13/2020, 11:58. FINDINGS: Surgical changes and devices: None. Lungs and pleura: Lungs are clear. No pleural effusions or pneumothorax. Mediastinum: Mediastinal contours are normal. Heart size is normal. Bones and chest wall: No suspicious bony abnormalities. Soft tissues appear unremarkable. IMPRESSION: No acute pulmonary process. No visualized acute fracture or dislocation. However, if clinical concern and/or pain persist, short interval imaging followup in 7-10 days is recommended, as occult injury cannot be definitively excluded. Dictated by: Maggy Reeder M.D. on 04/12/2021 at 10:29 Approved by: Maggy Reeder M.D. on 04/12/2021 at 10:30
--- NOTE | 2021-04-12 10:09 | ED_ITS ---
HPI - Fall General Chief Complaint: Fall Stated Complaint: fall x8 days ago, rib/sternal pain Time Seen by Provider: 04/12/21 10:01 Source: EMS Mode of arrival: EMS History of Present Illness HPI Narrative: 75-year-old woman with a history of hypertension and bipolar disorder presents 8 days after fall. She was apparently in the [employer] parking lot stumbled fell forward landing on both hands and both knees and then continued to fall with her chest hitting the ground and the left side of the face hitting the ground as well. She is not currently anticoagulated she did not lose consciousness. She did not seek any medical care at this time. She has a large bruise over the entire left side of her face. She was seen by orthopedics for left shoulder pain with negative x-rays and suspicion of a rotator cuff tear. She states that she was doing well until today she stood up twisted just wrong and had severe pain to the right side of her sternum that is making it difficult for her to take a deep breath and is painful with any palp ation along the lower sternal borders. Related Data Home Medications Medication Instructions Recorded Confirmed CALCIUM CARBONATE (#CALCIUM) 600 mg PO BID #0 12/26/11 03/23/21 acetaminophen [Tylenol Extra 500 mg PO Q4HP PRN #0 06/24/17 03/23/21 Strength] cholecalciferol (vitamin D3) 5,000 unit PO QDAY #0 06/24/17 03/23/21 metoprolol succinate [Toprol XL] 12.5 mg PO QDAY #0 06/24/17 03/23/21 ibuprofen 200 mg capsule 200 mg PO Q4-6H PRN 12/11/18 03/23/21 ketoconazole 2 % shampoo 1 applictn TOP 2XW 12/11/18 03/23/21 ferrous sulfate 325 mg (65 mg 325 mg PO DAILY tab 02/22/19 03/23/21 iron) tablet Previous Rx's Medication Instructions Recorded psyllium husk 3.4 gram/5.4 gram 1 tsp PO DAILY #660 gram 01/21/19 oral powder aripiprazole 5 mg tablet 5 mg PO DAILY #90 tab 10/30/20 lamotrigine 100 mg tablet 100 mg PO DAILY #90 tab 10/30/20 fluticasone propionate 50 2 spray NASAL BEDTIME #16 gram 12/22/20 mcg/actuation nasal spray,suspension trazodone 100 mg tablet See Rx Instructions PO HSP PRN 12/26/20 #180 tab duloxetine 20 mg capsule,delayed 20 mg PO QAM #90 cap 04/03/21 release oxybutynin chloride 5 mg 5 mg PO DAILY #90 tab 04/04/21 tablet,extended release 24 hr Allergies Allergy/AdvReac Type Severity Reaction Status Date / Time bacitracin Allergy Mild RASH Verified 04/12/21 10:08 [From Neosporin ([id number])] neomycin Allergy Mild RASH Verified 04/12/21 10:08 [From Neosporin ([id number])] polymyxin B Allergy Mild RASH Verified 04/12/21 10:08 [From Neosporin ([id number])] Sulfa (Sulfonamide Allergy Mild HIVES Verified 04/12/21 10:08 Antibiotics) Review of Systems Review of Systems Narrative: Pertinent positive and negative findings as per HPI Remainder of review of systems is otherwise unremarkable for Constitutional: Fevers, chills, weakness ENT: No sore throat, neck pain, ear pain CV: palpitations, Respiratory: Cough, wheeze, dyspnea GI: Nausea, vomiting, diarrhea, : Dysuria, hematuria, Patient History Medical History Cataracts, bilateral (~2015) Chicken pox Chronic renal failure, stage 2 (mild) Constipation Cyclothymia Depression Fecal incontinence (~2014) Fractures (~2004) Genital warts (~1984) Heart palpitations History of urinary incontinence (~2014) Incomplete left bundle branch block (LBBB) Lumbar spinal stenosis Measles Mixed urge and stress incontinence Osteoporosis, unspecified Sciatica Viral cardiomyopathy Surgical History Anesthesia History of vaginal hysterectomy (~1996) Melanoma (~1981) Family History Father Hypertension Heart disease Mother Cancer Diabetes mellitus Hyperlipidemia Sister Cervical cancer Grandfather No problems noted. Grandmother Hypertension Grandmother Hypertension Social History Smoking Status: Never smoker Smoking Status: Never smoker alcohol intake frequency: 0-2 drinks per day Alcohol type: wine Substance Use Type: does not use Exam Narrative Exam Narrative: General: Large contusion least a week old along the left side of her face and neck. Able to give a complete and coherent history. Well- nourished well-developed HEENT: Moist mucous membranes, normal sclera with reactive pupils, Neck: supple Respiratory: Lungs are clear to auscultation, no wheezing no rales no rhonchi. Full and symmetrical air movement Cardiac: Regular rate and rhythm no murmurs no bruits Chest: Tender along lower sternal borders without abrasions or contusions. No subcutaneous air. No tenderness with posterior rib manipulation Abdomen: Soft, nontender, good bowel tones, no flank pain Skin: Warm and dry, no rashes Neurologic: Grossly neurologically intact with no obvious asymmetries or abnormalities Extremities: Mild left anterior shoulder fullness and tenderness to palpation but otherwise well perfused Psych: Cooperative, appropriate insight and affect Initial Vital Signs Initial Vital Signs: Vital Signs Temperature 98 F 04/12/21 09:50 Pulse Rate 69 04/12/21 09:50 Respiratory Rate 16 04/12/21 09:50 Blood Pressure 185/92 H 04/12/21 09:50 Pulse Oximetry 98 04/12/21 09:50 Course Orders Ordered: ED Orders 04/12/21 10:07 XR chest 2V Stat Discontinued Medications Ketorolac Tromethamine (Ketorolac 30 Mg/Ml Vial) 30 mg IM NOW ONE Stop: 04/12/21 11:28 Oxycodone/Acetaminophen (Oxycodone/Acetaminophen 5/325 Tablet) 1 tab PO NOW ONE Stop: 04/12/21 10:08 Last Admin: 04/12/21 10:18 Dose: 1 tab Documented by: CYNTHIA Vital Signs Vital signs: Vital Signs - 8 hr 04/12/21 09:50 Temperature 98 F Pulse Rate 69 Respiratory Rate 16 Blood Pressure 185/92 H Pulse Oximetry 98 MDM - Fall Medical Records Attestation: I reviewed the patient's medical records. Lab Data Attestation: I reviewed the patient's lab results. Imaging Data Chest x-ray: Radiologist's Impression: FINDINGS: Surgical changes and devices: None. Lungs and pleura: Lungs are clear. No pleural effusions or pneumothorax. Mediastinum: Mediastinal contours are normal. Heart size is normal. Bones and chest wall: No suspicious bony abnormalities. Soft tissues appear unremarkable. IMPRESSION: No acute pulmonary process. No visualized acute fracture or dislocation. However, if clinical concern and/or pain persist, short interval imaging followup in 7-10 days is recommended, as occult injury cannot be definitively excluded. Dictated by: Maggy Reeder M.D. on 04/12/2021 at 10:29 MDM Narrative Medical decision making narrative: 75-year-old woman 8 days after a fall with acute onset of musculoskeletal central lower sternal chest pain today. Chest x- ray is unremarkable. She has quite a bit of tenderness at the costochondral angles. I suspect she twisted and turned and cause irritation to the area again with inflammation at the costal margins. No pneumothorax,. She is feeling somewhat better after Percocet. Will send her home with pain medication as well as incentive spirometry. Will ask her to return if symptoms worsen. Discharge Plan Departure Prescriptions: No Action aripiprazole [Abilify] 5 mg tablet 5 mg PO DAILY Qty: 90 RF: 1 lamotrigine [Lamictal] 100 mg tablet 100 mg PO DAILY Qty: 90 RF: 3 CALCIUM CARBONATE (#CALCIUM) 600 mg PO BID Qty: 0 RF: 0 cholecalciferol (vitamin D3) 5,000 UNIT capsule 5,000 unit PO QDAY Qty: 0 RF: 0 acetaminophen [Tylenol Extra Strength] 500 MG tablet 500 mg PO Q4HP PRNQty: 0 RF: 0 metoprolol succinate [Toprol XL] 25 MG tablet extended release 24 hr 12.5 mg PO QDAY Qty: 0 RF: 0 trazodone 100 mg tablet See Rx Instructions PO HSP PRN (Reason: insomnia) Qty: 180 RF: 3 duloxetine 20 mg capsule,delayed release(DR/EC) 20 mg PO QAM Qty: 90 RF: 1 oxybutynin chloride 5 mg tablet extended release 24hr 5 mg PO DAILY Qty: 90 RF: 3 ketoconazole 2 % shampoo 1 applictn TOP 2XW RF: 0 ibuprofen 200 mg capsule 200 mg PO Q4-6H PRNRF: 0 ferrous sulfate 325 mg (65 mg iron) tablet 325 mg PO DAILY RF: 0 Metamucil 3.4 gram/5.4 gram powder 1 tsp PO DAILY Qty: 660 RF: 0 fluticasone propionate 50 mcg/actuation spray,suspension 2 spray NASAL BEDTIME Qty: 16 RF: 4
[2021-04-12] MEDS: OXYCODONE/ACETAMINOPHEN 5/325 TABLET 1 TAB PO (10:18)
[2021-04-12 10:36] VITALS: PULSE 61; O2SAT 96
[2021-04-12 11:00] VITALS: O2SAT 95
[2021-04-12] MEDS: KETOROLAC 30 MG/ML VIAL IM (11:39)
[2021-04-12 12:04] VITALS: BP 181/87; PULSE 64; RESP 18; O2SAT 98
== END 2021-04-12 12:13 | disposition home or self-care (01) ==
PROVIDERS: Emergency Provider Emergency Medicine; Family Provider Internal Medicine; PCP Internal Medicine
DX: R07.89 Other chest pain (principal); R07.81 Pleurodynia; W19.XXXA Unspecified fall, initial encounter
CPT/HCPCS: 71046; 96372; 99283; 99284; J1885

== ENCOUNTER 2021-05-25 09:00 | Outpatient (RCR) | payer MEDICARE, OTHER, SELFPAY ==
--- NOTE | 2021-01-22 12:12 | PT.OIE ---
Current Diagnoses Other symptoms and signs involving the musculoskeletal system (01/22/21) Past Medical History (Last Reviewed 12/14/20 @ 01:01 by Camron Benitez DO) Cataracts, bilateral (~2015) Chicken pox Chronic renal failure, stage 2 (mild) Constipation Cyclothymia Depression Fecal incontinence (~2014) Fractures (~2004) Genital warts (~1984) Heart palpitations History of urinary incontinence (~2014) Incomplete left bundle branch block (LBBB) Lumbar spinal stenosis Measles Mixed urge and stress incontinence Osteoporosis, unspecified Sciatica Viral cardiomyopathy Past Surgical History (Last Reviewed 12/14/20 @ 01:01 by Camron Benitez DO) Anesthesia History of vaginal hysterectomy (~1996) Melanoma (~1981) Visit Care Team Role Provider Type Joshua Chin MD Family Provider Physician Primary Care Provider Specialty: Internal Medicine Address: [address] [place] [address] [address], [place], [address] Email: [email or web address] Tavon Wilson MD Attending Provider Non-Staff Referring Provider Specialty: Psychiatry Address: [address] [place] [address], [address], [address] Email: Physical Therapy Initial Evaluation PT-OP-A Visit Information Start: 01/22/21 11:36 Freq: Status: Active Protocol: Document 01/22/21 11:40 HH (Rec: 01/22/21 12:12 [email or web address]) Out-Patient Physical Therapy Visit Information Visit Information Visit Type Initial Evaluation Visit Start Time 08:15 Visit Stop Time 09:50 Total Visit Minutes 40 Visit Number / Number of RESIDENTIAL CASE MANAGER Visits 0 Evaluation Information Evaluation Date 01/22/21 Precautions Precautions 6 falls in last year. depression PT-OP-B Current Condition Start: 01/22/21 11:36 Freq: Status: Active Protocol: Document 01/22/21 11:40 HH (Rec: 01/22/21 12:12 [email or web address]) Current Condition History of Current Condition Onset Date many years ago Current Complaints R hip weakness, decreased balance, difficulty in walking History of Current Condition Serenity is a 75yo female referred by Dr. Wilson evaluate for pelvic muscle weakness. She has been walking with an abnormal gait for many years with unknown cause. She had MRI which showed atrophy and fatty replacement of the right gluteus medius muscle. She leans towards R side when she walks and tends to caught with her L foot sometimes. Pt had 6 falls in last year and unable to walk for long distance d/t poor balance and fall risks. Pt does not have any recent back pain but had sciatica in the past but does not recall which leg. She denies any tingling and numbness and noticeable pain at this point. No sensation loss noted from Dr. Dallas note. Pt is very active and does her full body workout program 5x/ week. Prior Treatments and Tests EMG examination shows signficiant chronic denervation without active denervation restricted tot the R gluteus medius muscle. There is no evidence of myopathy in any of the muscle sampled. The decreased right peroneal motor amplitude is a nonspecific finding in isolation, but given the normal superficial peroneal sensory response, could indicate a chronic L5/S1 radiculopathy. MRI which showed atrophy and fatty replacement of the right gluteus medius muscle Treatment Goals Patient/Caregiver Goals 1. To normalize her gait pattern 2. to be able to walk a mile Personal Factors Other Personal Factors That May Effect 6 falls in last year. 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) PT-OP-C Subjective Start: 01/22/21 11:36 Freq: Status: Active Protocol: Document 01/22/21 11:40 HH (Rec: 01/22/21 12:12 HH [email or web address]) Patient Questionnaires Lower Extremity Functional Scale LEFS Score 56 LEFS Impairment 20 to 39% Impaired (Score 48- 62) PT-OP-D Balance Start: 01/22/21 11:36 Freq: Status: Active Protocol: Document 01/22/21 11:40 HH (Rec: 01/22/21 12:12 HH [email or web address]) Balance Tests Single Limb Standing Single Limb- Right 1 Single Limb- Left 9 PT-OP-F Manual Assessment Start: 01/22/21 11:36 Freq: Status: Active Protocol: Document 01/22/21 11:40 HH (Rec: 01/22/21 12:12 HH [email or web address]) Manual Assessments Soft Tissue Assessment Soft Tissue Mobility Assessment hypertonicity noted at R SIJ, proximal gluteal max insertion reports of tingling sensation at lateral thigh with pressure at gluteus medius atrophy noted at R gluteal muscle group Joint Mobility Assessment Joint Mobility Assessment WFL PT-OP-G Mobility & Gait Start: 01/22/21 11:36 Freq: Status: Active Protocol: Document 01/22/21 11:40 HH (Rec: 01/22/21 12:12 HH [email or web address]) OP Gait Assessment Gait Deviations General Gait Pattern Decreased Stride Length, Decreased Feet Clearance, Lateral Trunk Lean Factors Limiting Gait Function Factors Limiting Gait Function Decreased Activity Tolerance, Decreased Strength,Poor Balance Comments Gait Comments +ve tredelenburg sign on R side during stance phase on REL. Mild knee valgus noted on R knee as well. PT-OP-H Neuro Start: 01/22/21 11:36 Freq: Status: Active Protocol: Document 01/22/21 11:40 HH (Rec: 01/22/21 12:12 HH [email or web address]) Sensation Evaluation Gross Sensation Gross Sensation WNL Deep Tendon Reflex & Clonus Assessment Deep Tendon Reflex Bilateral Achilles Deep Tendon Reflex 2+ Normal Bilateral Patellar Deep Tendon Reflex 2+ Normal PT-OP-J Posture/Palpation/Skin Start: 01/22/21 11:36 Freq: Status: Active Protocol: Document 01/22/21 11:40 HH (Rec: 01/22/21 12:12 HH [email or web address]) Posture Evaluation Position Standing Weight Distribution Weight Shifted Left,Decreased Wt.Bear on (R) PT-OP-K Range of Motion Start: 01/22/21 11:36 Freq: Status: Active Protocol: Document 01/22/21 11:40 HH (Rec: 01/22/21 12:12 HH [email or web address]) Hip Goniometric Range of Motion Hip Right Active Hip ROM WFL Yes Left Active Hip ROM WFL Yes Knee Goniometric Range of Motion Knee Right Knee ROM WFL Yes Left Knee ROM WFL Yes PT-OP-L Special Tests Start: 01/22/21 11:36 Freq: Status: Active Protocol: Document 01/22/21 11:40 HH (Rec: 01/22/21 12:12 HH [email or web address]) Special Tests Hip Special Tests Piriformis Test Results -ve Scour Test Test Results -ve FLACO Test Results -ve Trendelenberg Test Results +R Comments significant R lateral trunk lean and L hip drop during stance phase of RLE PT-OP-M Strength Start: 01/22/21 11:36 Freq: Status: Active Protocol: Document 01/22/21 11:40 HH (Rec: 01/22/21 12:12 [email or web address]) Hip Strength Hip Manual Muscle Testing Right Flexion (L2) 3+ Fair+ Extension (S1) 3+ Fair+ Abduction 2 Poor Adduction 4- Good- External Rotation 4 Good Internal Rotation 3+ Fair+ Left Flexion (L2) 4+ Good+ Extension (S1) 4+ Good+ Abduction 4+ Good+ Adduction 4+ Good+ External Rotation 4 Good Internal Rotation 4- Good- Knee Strength Knee Manual Muscle Testing Left Flexion (S2) 4+ Good+ Extension (L3) 4+ Good+ Right Flexion (S2) 4+ Good+ Extension (L3) 4+ Good+ Ankle/Foot Strength Ankle and Foot Manual Muscle Testing Left Dorsiflexion (L4) 4+ Good+ Plantarflexion (S1) 4+ Good+ Inversion 4+ Good+ Eversion (S1) 4+ Good+ Right Dorsiflexion (L4) 4+ Good+ Plantarflexion (S1) 4+ Good+ Inversion 4+ Good+ Eversion (S1) 4+ Good+ PT-OP-T Assessment and Plan Start: 01/22/21 11:36 Freq: Status: Active Protocol: Document 01/22/21 11:40 (Rec: 01/22/21 12:12 [email or web address]) Physical Therapy Assessment Rehab Potential Rehabilitation Potential Good Evaluation Complexity Number of Personal Factors/Comorbidities 1-2 Number of Body Systems Impaired 1-2 Clinical Presentation at Evaluation Stable Impairments Impairments Activity Tolerance,Balance, Functional Activities, Functional Mobility,Gait, Posture,ROM,Soft Tissue Mobility,Strength Goals balance Impairment pt does has have single leg balance on RLE Short Term Goal (STG) pt will improve her R single leg balance by 4 seconds to improve her gait stability. STG Duration 5 weeks Palaeontologist Goal (LTG) pt will improve her R single leg balance by 8 seconds to improve her gait stability. LTG Duration 10 weeks activity tolerance Impairment pt cannot walk for long distance Short Term Goal (STG) pt will be able to complete a 0.5 walk 3 times a week without increase in discomfort . STG Duration 5 weeks Half-Way Goal (LTG) pt will be able to complete a mile walk 3 times a week without increase in discomfort . LTG Duration 10 weeks strength Impairment pt has 2/5 muscle strength at R hip abduction Short Term Goal (STG) Pt will gain 1 MMT grade on her R hip abduction to improve her gait mechanics. STG Duration 5 weeks Half-Way Goal (LTG) Pt will gain 2 MMT grade on her R hip abduction to improve her trendelenburg sign during gait. LTG Duration 10 weeks LEFS Impairment pt scores 56 on LEFS Palaeontologist Goal (LTG) pt will score 65 on LEFS to improve her overall and mobility and strength. LTG Duration 10 weeks Assessment Summary Assessment Serenity is a 75yo female referred by Dr. Wilson evaluate for pelvic muscle weakness and gait instability. Her MRI and EMG evaluation show gluteus medius atrophy and decreased R peroneal motor amplitude and chronic denervation at R gluteus medius. Upon assessment, pt walks with a tredelenburg sign on R LE and significant weakness at R hip abduction (2/5 MMT grade). Her ROM, sensation, reflex are all intact which does not show any myopathy and motor neuron disorder. She also does not have signs of OA/ joint disease. She does c/o radiating tingling sensation with pressure at R proximal gluteus insertion and RSIJ which indicates possible chronic radiculopathy from L4- S1 (the superior gluteal nerve ). Serenity will benefit from skilled therapy to target activating and strengthen her R hip stabilizers followed by a course of gait training and balance training, in order to normalize the gait mechanics and progress to daily walking safely. Physical Therapy Plan Frequency and Duration Frequency of Treatment 2x/Week Duration of Treatment 10 weeks Plan of Care Start Date 01/22/21 Plan of Care End Date 04/07/21 Therapeutic Interventions Therapeutic Interventions Aquatic Therapy,Balance Training,Gait Training,Home Exercise Program,Joint Mobilizations,Manual Therapy, Neuromuscular Re-education, Patient/Caregiver Education, Self-Care/Home Management, Sensory Integration,Soft Tissue Mobilization,Taping, Therapeutic Activities, Therapeutic Exercises Modalities Cold Pack/Ice Massage,Electric Stimulation,Hot Packs, Infrared Therapy,Ultrasound Next Visit Focus/Plan Next Note Type Treatment Note Next Visit Plan STM at R SIJ, gluteal insertion clam shell supine hip ER bridging hold
--- NOTE | 2021-01-22 12:13 | PT.OPPOC ---
Physical, Occupational & Speech Therapy At [facility] Current Diagnoses Other symptoms and signs involving the musculoskeletal system (01/22/21) Visit Care Team Role Provider Type Joshua Chin MD Family Provider Physician Primary Care Provider Specialty: Internal Medicine Address: [address] [place] [address] [address], [place], [address] Email: [email or web address] Tavon Wilson MD Attending Provider Non-Staff Referring Provider Specialty: Psychiatry Address: [address] [place] [address], [address], [place], [address] Email: Plan Of Care PT-OP-T Assessment and Plan Start: 01/22/21 11:36 Freq: Status: Active Protocol: Document 01/22/21 11:40 HH (Rec: 01/22/21 12:12 [email or web address]) Physical Therapy Assessment Rehab Potential Rehabilitation Potential Good Evaluation Complexity Number of Personal Factors/Comorbidities 1-2 Number of Body Systems Impaired 1-2 Clinical Presentation at Evaluation Stable Impairments Impairments Activity Tolerance,Balance, Functional Activities, Functional Mobility,Gait, Posture,ROM,Soft Tissue Mobility,Strength Goals balance Impairment pt does has have single leg balance on RLE Short Term Goal (STG) pt will improve her R single leg balance by 4 seconds to improve her gait stability. STG Duration 5 weeks Buggy Driver Goal (LTG) pt will improve her R single leg balance by 8 seconds to improve her gait stability. LTG Duration 10 weeks activity tolerance Impairment pt cannot walk for long distance Short Term Goal (STG) pt will be able to complete a 0.5 walk 3 times a week without increase in discomfort . STG Duration 5 weeks Prison Goal (LTG) pt will be able to complete a mile walk 3 times a week without increase in discomfort . LTG Duration 10 weeks strength Impairment pt has 2/5 muscle strength at R hip abduction Short Term Goal (STG) Pt will gain 1 MMT grade on her R hip abduction to improve her gait mechanics. STG Duration 5 weeks Buggy Driver Goal (LTG) Pt will gain 2 MMT grade on her R hip abduction to improve her trendelenburg sign during gait. LTG Duration 10 weeks LEFS Impairment pt scores 56 on LEFS Buggy Driver Goal (LTG) pt will score 65 on LEFS to improve her overall and mobility and strength. LTG Duration 10 weeks Assessment Summary Assessment Serenity is a 75yo female referred by Dr. Wilson evaluate for pelvic muscle weakness and gait instability. Her MRI and EMG evaluation show gluteus medius atrophy and decreased R peroneal motor amplitude and chronic denervation at R gluteus medius. Upon assessment, pt walks with a tredelenburg sign on R LE and significant weakness at R hip abduction (2/5 MMT grade). Her ROM, sensation, reflex are all intact which does not show any myopathy and motor neuron disorder. She also does not have signs of OA/ joint disease. She does c/o radiating tingling sensation with pressure at R proximal gluteus insertion and RSIJ which indicates possible chronic radiculopathy from L4- S1 (the superior gluteal nerve ). Serenity will benefit from skilled therapy to target activating and strengthen her R hip stabilizers followed by a course of gait training and balance training, in order to normalize the gait mechanics and progress to daily walking safely. Physical Therapy Plan Frequency and Duration Frequency of Treatment 2x/Week Duration of Treatment 10 weeks Plan of Care Start Date 01/22/21 Plan of Care End Date 04/07/21 Therapeutic Interventions Therapeutic Interventions Aquatic Therapy,Balance Training,Gait Training,Home Exercise Program,Joint Mobilizations,Manual Therapy, Neuromuscular Re-education, Patient/Caregiver Education, Self-Care/Home Management, Sensory Integration,Soft Tissue Mobilization,Taping, Therapeutic Activities, Therapeutic Exercises Modalities Cold Pack/Ice Massage,Electric Stimulation,Hot Packs, Infrared Therapy,Ultrasound Next Visit Focus/Plan Next Note Type Treatment Note Next Visit Plan STM at R SIJ, gluteal insertion clam shell supine hip ER bridging hold Plan of Care Dates Plan of Care Start Date 01/22/21 Plan of Care End Date 04/07/21 Electronically Signed by: Lalito Trujillo, PT 01/22/21 [id number] Please Sign and Return: I have reviewed this Plan of Care and certify that the skilled therapy services above are required to meet the patient?s needs. Physician Signature Date Printed Name and Credentials Clinical Instructor Signature Printed Name and Credentials
--- NOTE | 2021-01-26 09:03 | PT.OTN ---
Current Diagnoses Other symptoms and signs involving the musculoskeletal system (01/26/21) Physical Therapy Treatment Note PT-OP-A Visit Information Start: 01/22/21 11:36 Freq: Status: Active Protocol: Document 01/26/21 08:17 HH (Rec: 01/26/21 09:03 HH [id number]) Out-Patient Physical Therapy Visit Information Visit Information Visit Type Treatment Note Visit Start Time 08:18 Visit Stop Time 09:00 Total Visit Minutes 42 Visit Number 2/ Number of FEED HOUSE SUPERVISOR Visits 0 PT-OP-B Current Condition Start: 01/22/21 11:36 Freq: Status: Active Protocol: Document 01/22/21 11:40 HH (Rec: 01/22/21 12:12 HH [email or web address]) Current Condition History of Current Condition Onset Date many years ago Current Complaints R hip weakness, decreased balance, difficulty in walking History of Current Condition Serenity is a 75yo female referred by Dr. Wilson evaluate for pelvic muscle weakness. She has been walking with an abnormal gait for many years with unknown cause. She had MRI which showed atrophy and fatty replacement of the right gluteus medius muscle. She leans towards R side when she walks and tends to caught with her L foot sometimes. Pt had 6 falls in last year and unable to walk for long distance d/t poor balance and fall risks. Pt does not have any recent back pain but had sciatica in the past but does not recall which leg. She denies any tingling and numbness and noticeable pain at this point. No sensation loss noted from Dr. Dallas note. Pt is very active and does her full body workout program 5x/ week. Prior Treatments and Tests EMG examination shows signficiant chronic denervation without active denervation restricted tot the R gluteus medius muscle. There is no evidence of myopathy in any of the muscle sampled. The decreased right peroneal motor amplitude is a nonspecific finding in isolation, but given the normal superficial peroneal sensory response, could indicate a chronic L5/S1 radiculopathy. MRI which showed atrophy and fatty replacement of the right gluteus medius muscle Treatment Goals Patient/Caregiver Goals 1. To normalize her gait pattern 2. to be able to walk a mile Personal Factors Other Personal Factors That May Effect 6 falls in last year. 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) PT-OP-C Subjective Start: 01/22/21 11:36 Freq: Status: Active Protocol: Document 01/22/21 11:40 HH (Rec: 01/22/21 12:12 HH [email or web address]) Patient Questionnaires Lower Extremity Functional Scale LEFS Score 56 LEFS Impairment 20 to 39% Impaired (Score 48- 62) PT-OP-D Balance Start: 01/22/21 11:36 Freq: Status: Active Protocol: Document 01/22/21 11:40 HH (Rec: 01/22/21 12:12 HH [email or web address]) Balance Tests Single Limb Standing Single Limb- Right 1 Single Limb- Left 9 PT-OP-F Manual Assessment Start: 01/22/21 11:36 Freq: Status: Active Protocol: Document 01/22/21 11:40 HH (Rec: 01/22/21 12:12 HH [email or web address]) Manual Assessments Soft Tissue Assessment Soft Tissue Mobility Assessment hypertonicity noted at R SIJ, proximal gluteal max insertion reports of tingling sensation at lateral thigh with pressure at gluteus medius atrophy noted at R gluteal muscle group Joint Mobility Assessment Joint Mobility Assessment WFL PT-OP-G Mobility & Gait Start: 01/22/21 11:36 Freq: Status: Active Protocol: Document 01/22/21 11:40 HH (Rec: 01/22/21 12:12 HH [email or web address]) OP Gait Assessment Gait Deviations General Gait Pattern Decreased Stride Length, Decreased Feet Clearance, Lateral Trunk Lean Factors Limiting Gait Function Factors Limiting Gait Function Decreased Activity Tolerance, Decreased Strength,Poor Balance Comments Gait Comments +ve tredelenburg sign on R side during stance phase on REL. Mild knee valgus noted on R knee as well. PT-OP-H Neuro Start: 01/22/21 11:36 Freq: Status: Active Protocol: Document 01/22/21 11:40 HH (Rec: 01/22/21 12:12 HH [email or web address]) Sensation Evaluation Gross Sensation Gross Sensation WNL Deep Tendon Reflex & Clonus Assessment Deep Tendon Reflex Bilateral Achilles Deep Tendon Reflex 2+ Normal Bilateral Patellar Deep Tendon Reflex 2+ Normal PT-OP-J Posture/Palpation/Skin Start: 01/22/21 11:36 Freq: Status: Active Protocol: Document 01/22/21 11:40 HH (Rec: 01/22/21 12:12 HH [email or web address]) Posture Evaluation Position Standing Weight Distribution Weight Shifted Left,Decreased Wt.Bear on (R) PT-OP-K Range of Motion Start: 01/22/21 11:36 Freq: Status: Active Protocol: Document 01/22/21 11:40 HH (Rec: 01/22/21 12:12 [email or web address]) Hip Goniometric Range of Motion Hip Right Active Hip ROM WFL Yes Left Active Hip ROM WFL Yes Knee Goniometric Range of Motion Knee Right Knee ROM WFL Yes Left Knee ROM WFL Yes PT-OP-L Special Tests Start: 01/22/21 11:36 Freq: Status: Active Protocol: Document 01/22/21 11:40 HH (Rec: 01/22/21 12:12 HH [email or web address]) Special Tests Hip Special Tests Piriformis Test Results -ve Scour Test Test Results -ve FLACO Test Results -ve Trendelenberg Test Results +R Comments significant R lateral trunk lean and L hip drop during stance phase of RLE PT-OP-M Strength Start: 01/22/21 11:36 Freq: Status: Active Protocol: Document 01/22/21 11:40 HH (Rec: 01/22/21 12:12 [email or web address]) Hip Strength Hip Manual Muscle Testing Right Flexion (L2) 3+ Fair+ Extension (S1) 3+ Fair+ Abduction 2 Poor Adduction 4- Good- External Rotation 4 Good Internal Rotation 3+ Fair+ Left Flexion (L2) 4+ Good+ Extension (S1) 4+ Good+ Abduction 4+ Good+ Adduction 4+ Good+ External Rotation 4 Good Internal Rotation 4- Good- Knee Strength Knee Manual Muscle Testing Left Flexion (S2) 4+ Good+ Extension (L3) 4+ Good+ Right Flexion (S2) 4+ Good+ Extension (L3) 4+ Good+ Ankle/Foot Strength Ankle and Foot Manual Muscle Testing Left Dorsiflexion (L4) 4+ Good+ Plantarflexion (S1) 4+ Good+ Inversion 4+ Good+ Eversion (S1) 4+ Good+ Right Dorsiflexion (L4) 4+ Good+ Plantarflexion (S1) 4+ Good+ Inversion 4+ Good+ Eversion (S1) 4+ Good+ PT-OP-Q Treatments Start: 01/22/21 11:36 Freq: Status: Active Protocol: Document 01/26/21 08:17 HH (Rec: 01/26/21 09:03 HH [id number]) Gym Equipment Shuttle Recovery SL squat Resistance 37# Shuttle Recovery Platform Stable Reps/Time 8 x2 Therapeutic Exercises Supine Exercises tennis ball release Side right Comments for HEP bridge Side bilateral Equipment Used yellow band Reps/Minutes 8 x2 Comments for HEP supine clamshell Side bilateral Equipment Used yellow band Reps/Minutes 8 x2 Comments for HEP Sidelying Exercises clamshell Side bilateral Equipment Used yellow band Reps/Minutes 8x2 Comments for HEP Manual Therapy Treatment Soft Tissue Mobilization glutes Mobilization Type Sustained Pressure,Trigger Point Release Intensity/Depth Moderate Body Position Sidelying PT-OP-T Assessment and Plan Start: 01/22/21 11:36 Freq: Status: Active Protocol: Document 01/26/21 08:17 (Rec: 01/26/21 09:03 [id number]) Physical Therapy Assessment Goals balance Impairment pt does has have single leg balance on RLE Short Term Goal (STG) pt will improve her R single leg balance by 4 seconds to improve her gait stability. STG Duration 5 weeks Senior Living Goal (LTG) pt will improve her R single leg balance by 8 seconds to improve her gait stability. LTG Duration 10 weeks activity tolerance Impairment pt cannot walk for long distance Short Term Goal (STG) pt will be able to complete a 0.5 walk 3 times a week without increase in discomfort . STG Duration 5 weeks Senior Living Goal (LTG) pt will be able to complete a mile walk 3 times a week without increase in discomfort . LTG Duration 10 weeks strength Impairment pt has 2/5 muscle strength at R hip abduction Short Term Goal (STG) Pt will gain 1 MMT grade on her R hip abduction to improve her gait mechanics. STG Duration 5 weeks Senior Living Goal (LTG) Pt will gain 2 MMT grade on her R hip abduction to improve her trendelenburg sign during gait. LTG Duration 10 weeks LEFS Impairment pt scores 56 on LEFS Senior Living Goal (LTG) pt will score 65 on LEFS to improve her overall and mobility and strength. LTG Duration 10 weeks Assessment Summary Assessment Pt elke session very well with focus on gluteal strengthening and activation. Pt shows close to full ROM during clamshell and bridging but she gets fatigue easily. Physical Therapy Plan Frequency and Duration Frequency of Treatment 2x/Week Duration of Treatment 10 weeks Plan of Care Start Date 01/22/21 Plan of Care End Date 04/07/21 Next Visit Focus/Plan Next Note Type Treatment Note Next Visit Plan STM at R SIJ, gluteal insertion clam shell supine hip ER bridging hold
--- NOTE | 2021-02-01 09:01 | PT.OTN ---
Current Diagnoses Other symptoms and signs involving the musculoskeletal system (02/01/21) Physical Therapy Treatment Note PT-OP-A Visit Information Start: 01/22/21 11:36 Freq: Status: Active Protocol: Document 02/01/21 08:15 HH (Rec: 02/01/21 09:01 HH [id number]) Out-Patient Physical Therapy Visit Information Visit Information Visit Type Treatment Note Visit Start Time 08:16 Visit Stop Time 09:00 Total Visit Minutes 44 Visit Number 3/ Number of CERTIFIED FLEX ENDOSCOPE REPROCESSOR Visits 0 PT-OP-B Current Condition Start: 01/22/21 11:36 Freq: Status: Active Protocol: Document 01/22/21 11:40 HH (Rec: 01/22/21 12:12 HH [email or web address]) Current Condition History of Current Condition Onset Date many years ago Current Complaints R hip weakness, decreased balance, difficulty in walking History of Current Condition Serenity is a 75yo female referred by Dr. Wilson evaluate for pelvic muscle weakness. She has been walking with an abnormal gait for many years with unknown cause. She had MRI which showed atrophy and fatty replacement of the right gluteus medius muscle. She leans towards R side when she walks and tends to caught with her L foot sometimes. Pt had 6 falls in last year and unable to walk for long distance d/t poor balance and fall risks. Pt does not have any recent back pain but had sciatica in the past but does not recall which leg. She denies any tingling and numbness and noticeable pain at this point. No sensation loss noted from Dr. Dallas note. Pt is very active and does her full body workout program 5x/ week. Prior Treatments and Tests EMG examination shows signficiant chronic denervation without active denervation restricted tot the R gluteus medius muscle. There is no evidence of myopathy in any of the muscle sampled. The decreased right peroneal motor amplitude is a nonspecific finding in isolation, but given the normal superficial peroneal sensory response, could indicate a chronic L5/S1 radiculopathy. MRI which showed atrophy and fatty replacement of the right gluteus medius muscle Treatment Goals Patient/Caregiver Goals 1. To normalize her gait pattern 2. to be able to walk a mile Personal Factors Other Personal Factors That May Effect 6 falls in last year. 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 And deya been waking. PT-OP-D Balance Start: 01/22/21 11:36 Freq: Status: Active Protocol: Document 01/22/21 11:40 HH (Rec: 01/22/21 12:12 HH [email or web address]) Balance Tests Single Limb Standing Single Limb- Right 1 Single Limb- Left 9 PT-OP-F Manual Assessment Start: 01/22/21 11:36 Freq: Status: Active Protocol: Document 01/22/21 11:40 HH (Rec: 01/22/21 12:12 HH [email or web address]) Manual Assessments Soft Tissue Assessment Soft Tissue Mobility Assessment hypertonicity noted at R SIJ, proximal gluteal max insertion reports of tingling sensation at lateral thigh with pressure at gluteus medius atrophy noted at R gluteal muscle group Joint Mobility Assessment Joint Mobility Assessment WFL PT-OP-G Mobility & Gait Start: 01/22/21 11:36 Freq: Status: Active Protocol: Document 01/22/21 11:40 HH (Rec: 01/22/21 12:12 HH [email or web address]) OP Gait Assessment Gait Deviations General Gait Pattern Decreased Stride Length, Decreased Feet Clearance, Lateral Trunk Lean Factors Limiting Gait Function Factors Limiting Gait Function Decreased Activity Tolerance, Decreased Strength,Poor Balance Comments Gait Comments +ve tredelenburg sign on R side during stance phase on REL. Mild knee valgus noted on R knee as well. PT-OP-H Neuro Start: 01/22/21 11:36 Freq: Status: Active Protocol: Document 01/22/21 11:40 HH (Rec: 01/22/21 12:12 HH [email or web address]) Sensation Evaluation Gross Sensation Gross Sensation WNL Deep Tendon Reflex & Clonus Assessment Deep Tendon Reflex Bilateral Achilles Deep Tendon Reflex 2+ Normal Bilateral Patellar Deep Tendon Reflex 2+ Normal PT-OP-J Posture/Palpation/Skin Start: 01/22/21 11:36 Freq: Status: Active Protocol: Document 01/22/21 11:40 HH (Rec: 01/22/21 12:12 HH [email or web address]) Posture Evaluation Position Standing Weight Distribution Weight Shifted Left,Decreased Wt.Bear on (R) PT-OP-K Range of Motion Start: 01/22/21 11:36 Freq: Status: Active Protocol: Document 01/22/21 11:40 HH (Rec: 01/22/21 12:12 HH [email or web address]) Hip Goniometric Range of Motion Hip Right Active Hip ROM WFL Yes Left Active Hip ROM WFL Yes Knee Goniometric Range of Motion Knee Right Knee ROM WFL Yes Left Knee ROM WFL Yes PT-OP-L Special Tests Start: 01/22/21 11:36 Freq: Status: Active Protocol: Document 01/22/21 11:40 HH (Rec: 01/22/21 12:12 HH [email or web address]) Special Tests Hip Special Tests Piriformis Test Results -ve Scour Test Test Results -ve FLACO Test Results -ve Trendelenberg Test Results +R Comments significant R lateral trunk lean and L hip drop during stance phase of RLE PT-OP-M Strength Start: 01/22/21 11:36 Freq: Status: Active Protocol: Document 01/22/21 11:40 HH (Rec: 01/22/21 12:12 [email or web address]) Hip Strength Hip Manual Muscle Testing Right Flexion (L2) 3+ Fair+ Extension (S1) 3+ Fair+ Abduction 2 Poor Adduction 4- Good- External Rotation 4 Good Internal Rotation 3+ Fair+ Left Flexion (L2) 4+ Good+ Extension (S1) 4+ Good+ Abduction 4+ Good+ Adduction 4+ Good+ External Rotation 4 Good Internal Rotation 4- Good- Knee Strength Knee Manual Muscle Testing Left Flexion (S2) 4+ Good+ Extension (L3) 4+ Good+ Right Flexion (S2) 4+ Good+ Extension (L3) 4+ Good+ Ankle/Foot Strength Ankle and Foot Manual Muscle Testing Left Dorsiflexion (L4) 4+ Good+ Plantarflexion (S1) 4+ Good+ Inversion 4+ Good+ Eversion (S1) 4+ Good+ Right Dorsiflexion (L4) 4+ Good+ Plantarflexion (S1) 4+ Good+ Inversion 4+ Good+ Eversion (S1) 4+ Good+ PT-OP-Q Treatments Start: 01/22/21 11:36 Freq: Status: Active Protocol: Document 02/01/21 08:15 HH (Rec: 02/01/21 09:01 HH [id number]) Gym Equipment Shuttle Recovery B squat Details with yellow band on knees Resistance #50 Shuttle Recovery Platform Stable Reps/Time 8x2 SL squat Resistance 37# Shuttle Recovery Platform Stable Reps/Time 8 x2 Therapeutic Exercises Supine Exercises tennis ball release Side right bridge Side bilateral Equipment Used yellow band Reps/Minutes 8 x2 supine clamshell Side bilateral Equipment Used yellow band Reps/Minutes 8 x2 Sidelying Exercises clamshell Side bilateral Equipment Used yellow band Reps/Minutes 8x2 Standing Exercises SL stance Standing Exercise Name hold on to L rail Side right Reps/Minutes 5 sec hold x 5 Comments cues on R knee extension Manual Therapy Treatment Soft Tissue Mobilization glutes Mobilization Type Sustained Pressure,Trigger Point Release Intensity/Depth Moderate Body Position Sidelying PT-OP-T Assessment and Plan Start: 01/22/21 11:36 Freq: Status: Active Protocol: Document 02/01/21 08:15 (Rec: 02/01/21 09:01 [id number]) Physical Therapy Assessment Goals balance Impairment pt does has have single leg balance on RLE Short Term Goal (STG) pt will improve her R single leg balance by 4 seconds to improve her gait stability. STG Duration 5 weeks Infection Control Preventionist Goal (LTG) pt will improve her R single leg balance by 8 seconds to improve her gait stability. LTG Duration 10 weeks activity tolerance Impairment pt cannot walk for long distance Short Term Goal (STG) pt will be able to complete a 0.5 walk 3 times a week without increase in discomfort . STG Duration 5 weeks Infection Control Preventionist Goal (LTG) pt will be able to complete a mile walk 3 times a week without increase in discomfort . LTG Duration 10 weeks strength Impairment pt has 2/5 muscle strength at R hip abduction Short Term Goal (STG) Pt will gain 1 MMT grade on her R hip abduction to improve her gait mechanics. STG Duration 5 weeks Infection Control Preventionist Goal (LTG) Pt will gain 2 MMT grade on her R hip abduction to improve her trendelenburg sign during gait. LTG Duration 10 weeks LEFS Impairment pt scores 56 on LEFS Senior Living Goal (LTG) pt will score 65 on LEFS to improve her overall and mobility and strength. LTG Duration 10 weeks Assessment Summary Assessment Reviewed HEP with pt today and pt shows good form and technique. pt elke session well with improved hip stabilizer engagement during closed chain ex. Physical Therapy Plan Frequency and Duration Frequency of Treatment 2x/Week Duration of Treatment 10 weeks Plan of Care Start Date 01/22/21 Plan of Care End Date 04/07/21 Next Visit Focus/Plan Next Note Type Treatment Note Next Visit Plan STM at R SIJ, gluteal insertion clam shell supine hip ER bridging hold
--- NOTE | 2021-02-06 09:01 | PT.OTN ---
Current Diagnoses Other symptoms and signs involving the musculoskeletal system (02/06/21) Physical Therapy Treatment Note PT-OP-A Visit Information Start: 01/22/21 11:36 Freq: Status: Active Protocol: Document 02/06/21 08:15 HH (Rec: 02/06/21 09:01 HH [id number]) Out-Patient Physical Therapy Visit Information Visit Information Visit Type Treatment Note Visit Start Time 08:17 Visit Stop Time 09:00 Total Visit Minutes 43 Visit Number 02/12 Number of PAPER MACHINE BACKTENDER Visits 0 PT-OP-B Current Condition Start: 01/22/21 11:36 Freq: Status: Active Protocol: Document 01/22/21 11:40 HH (Rec: 01/22/21 12:12 HH [email or web address]) Current Condition History of Current Condition Onset Date many years ago Current Complaints R hip weakness, decreased balance, difficulty in walking History of Current Condition Serenity is a 75yo female referred by Dr. [place] evaluate for pelvic muscle weakness. She has been walking with an abnormal gait for many years with unknown cause. She had MRI which showed atrophy and fatty replacement of the right gluteus medius muscle. She leans towards R side when she walks and tends to caught with her L foot sometimes. Pt had 6 falls in last year and unable to walk for long distance d/t poor balance and fall risks. Pt does not have any recent back pain but had sciatica in the past but does not recall which leg. She denies any tingling and numbness and noticeable pain at this point. No sensation loss noted from Dr. Dallas note. Pt is very active and does her full body workout program 5x/ week. Prior Treatments and Tests EMG examination shows signficiant chronic denervation without active denervation restricted tot the R gluteus medius muscle. There is no evidence of myopathy in any of the muscle sampled. The decreased right peroneal motor amplitude is a nonspecific finding in isolation, but given the normal superficial peroneal sensory response, could indicate a chronic L5/S1 radiculopathy. MRI which showed atrophy and fatty replacement of the right gluteus medius muscle Treatment Goals Patient/Caregiver Goals 1. To normalize her gait pattern 2. to be able to walk a mile Personal Factors Other Personal Factors That May Effect 6 falls in last year. 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 PT-OP-D Balance Start: 01/22/21 11:36 Freq: Status: Active Protocol: Document 01/22/21 11:40 HH (Rec: 01/22/21 12:12 HH [email or web address]) Balance Tests Single Limb Standing Single Limb- Right 1 Single Limb- Left 9 PT-OP-F Manual Assessment Start: 01/22/21 11:36 Freq: Status: Active Protocol: Document 01/22/21 11:40 HH (Rec: 01/22/21 12:12 HH [email or web address]) Manual Assessments Soft Tissue Assessment Soft Tissue Mobility Assessment hypertonicity noted at R SIJ, proximal gluteal max insertion reports of tingling sensation at lateral thigh with pressure at gluteus medius atrophy noted at R gluteal muscle group Joint Mobility Assessment Joint Mobility Assessment WFL PT-OP-G Mobility & Gait Start: 01/22/21 11:36 Freq: Status: Active Protocol: Document 01/22/21 11:40 HH (Rec: 01/22/21 12:12 HH [email or web address]) OP Gait Assessment Gait Deviations General Gait Pattern Decreased Stride Length, Decreased Feet Clearance, Lateral Trunk Lean Factors Limiting Gait Function Factors Limiting Gait Function Decreased Activity Tolerance, Decreased Strength,Poor Balance Comments Gait Comments +ve tredelenburg sign on R side during stance phase on REL. Mild knee valgus noted on R knee as well. PT-OP-H Neuro Start: 01/22/21 11:36 Freq: Status: Active Protocol: Document 01/22/21 11:40 HH (Rec: 01/22/21 12:12 HH [email or web address]) Sensation Evaluation Gross Sensation Gross Sensation WNL Deep Tendon Reflex & Clonus Assessment Deep Tendon Reflex Bilateral Achilles Deep Tendon Reflex 2+ Normal Bilateral Patellar Deep Tendon Reflex 2+ Normal PT-OP-J Posture/Palpation/Skin Start: 01/22/21 11:36 Freq: Status: Active Protocol: Document 01/22/21 11:40 HH (Rec: 01/22/21 12:12 HH [email or web address]) Posture Evaluation Position Standing Weight Distribution Weight Shifted Left,Decreased Wt.Bear on (R) PT-OP-K Range of Motion Start: 01/22/21 11:36 Freq: Status: Active Protocol: Document 01/22/21 11:40 HH (Rec: 01/22/21 12:12 HH [email or web address]) Hip Goniometric Range of Motion Hip Right Active Hip ROM WFL Yes Left Active Hip ROM WFL Yes Knee Goniometric Range of Motion Knee Right Knee ROM WFL Yes Left Knee ROM WFL Yes PT-OP-L Special Tests Start: 01/22/21 11:36 Freq: Status: Active Protocol: Document 01/22/21 11:40 HH (Rec: 01/22/21 12:12 HH [email or web address]) Special Tests Hip Special Tests Piriformis Test Results -ve Scour Test Test Results -ve FLACO Test Results -ve Trendelenberg Test Results +R Comments significant R lateral trunk lean and L hip drop during stance phase of RLE PT-OP-M Strength Start: 01/22/21 11:36 Freq: Status: Active Protocol: Document 01/22/21 11:40 HH (Rec: 01/22/21 12:12 HH [email or web address]) Hip Strength Hip Manual Muscle Testing Right Flexion (L2) 3+ Fair+ Extension (S1) 3+ Fair+ Abduction 2 Poor Adduction 4- Good- External Rotation 4 Good Internal Rotation 3+ Fair+ Left Flexion (L2) 4+ Good+ Extension (S1) 4+ Good+ Abduction 4+ Good+ Adduction 4+ Good+ External Rotation 4 Good Internal Rotation 4- Good- Knee Strength Knee Manual Muscle Testing Left Flexion (S2) 4+ Good+ Extension (L3) 4+ Good+ Right Flexion (S2) 4+ Good+ Extension (L3) 4+ Good+ Ankle/Foot Strength Ankle and Foot Manual Muscle Testing Left Dorsiflexion (L4) 4+ Good+ Plantarflexion (S1) 4+ Good+ Inversion 4+ Good+ Eversion (S1) 4+ Good+ Right Dorsiflexion (L4) 4+ Good+ Plantarflexion (S1) 4+ Good+ Inversion 4+ Good+ Eversion (S1) 4+ Good+ PT-OP-Q Treatments Start: 01/22/21 11:36 Freq: Status: Active Protocol: Document 02/06/21 08:15 HH (Rec: 02/06/21 09:01 HH [id number]) Gym Equipment Shuttle Recovery B squat Details with yellow band on knees Resistance #50 Shuttle Recovery Platform Stable Reps/Time 8x2 SL squat Resistance 37# Shuttle Recovery Platform Stable Reps/Time 8 x2 Therapeutic Exercises Supine Exercises bridge Side bilateral Equipment Used yellow band Reps/Minutes 8 x2 Sidelying Exercises clamshell Side bilateral Equipment Used yellow band Reps/Minutes 8x2 Standing Exercises standing hip abd Equipment Used no band Comments cues on isolated hip abduction . SL stance Standing Exercise Name hold on to L rail, with lewis Side right Reps/Minutes 5 mins Comments for R stance phase, pt has significant L hip drop Manual Therapy Treatment Soft Tissue Mobilization glutes Mobilization Type Sustained Pressure,Trigger Point Release Intensity/Depth Moderate Body Position Sidelying PT-OP-T Assessment and Plan Start: 01/22/21 11:36 Freq: Status: Active Protocol: Document 02/06/21 08:15 (Rec: 02/06/21 09:01 [id number]) Physical Therapy Assessment Goals balance Impairment pt does has have single leg balance on RLE Short Term Goal (STG) pt will improve her R single leg balance by 4 seconds to improve her gait stability. STG Duration 5 weeks Forensic Specialist Goal (LTG) pt will improve her R single leg balance by 8 seconds to improve her gait stability. LTG Duration 10 weeks activity tolerance Impairment pt cannot walk for long distance Short Term Goal (STG) pt will be able to complete a 0.5 walk 3 times a week without increase in discomfort . STG Duration 5 weeks Forensic Specialist Goal (LTG) pt will be able to complete a mile walk 3 times a week without increase in discomfort . LTG Duration 10 weeks strength Impairment pt has 2/5 muscle strength at R hip abduction Short Term Goal (STG) Pt will gain 1 MMT grade on her R hip abduction to improve her gait mechanics. STG Duration 5 weeks Senior Living Goal (LTG) Pt will gain 2 MMT grade on her R hip abduction to improve her trendelenburg sign during gait. LTG Duration 10 weeks LEFS Impairment pt scores 56 on LEFS Senior Living Goal (LTG) pt will score 65 on LEFS to improve her overall and mobility and strength. LTG Duration 10 weeks Assessment Summary Assessment Pt elke session well who is doing well with hip stabilizers activation in open chain position. But she has difficulty controlling her L hip drop at R stance phase. Physical Therapy Plan Frequency and Duration Frequency of Treatment 2x/Week Duration of Treatment 10 weeks Plan of Care Start Date 01/22/21 Plan of Care End Date 04/07/21 Next Visit Focus/Plan Next Note Type Treatment Note Next Visit Plan STM at R SIJ, gluteal insertion clam shell supine hip ER bridging hold
--- NOTE | 2021-02-13 14:36 | PT.OTN ---
Current Diagnoses Other symptoms and signs involving the musculoskeletal system (02/13/21) Physical Therapy Treatment Note PT-OP-A Visit Information Start: 01/22/21 11:36 Freq: Status: Active Protocol: Document 02/13/21 13:49 SP (Rec: 02/13/21 16:14 SP [id number]) Out-Patient Physical Therapy Visit Information Visit Information Visit Type Treatment Note Visit Start Time 13:49 Visit Stop Time 14:36 Total Visit Minutes 47 Visit Number 03/14 Number of CHIEF NUCLEAR MEDICINE TECHNOLOGIST Visits 1 Evaluation Information Evaluation Date 01/22/21 Precautions Precautions 6 falls in last year. depression PT-OP-B Current Condition Start: 01/22/21 11:36 Freq: Status: Active Protocol: Document 01/22/21 11:40 HH (Rec: 01/22/21 12:12 HH [email or web address]) Current Condition History of Current Condition Onset Date many years ago Current Complaints R hip weakness, decreased balance, difficulty in walking History of Current Condition Serenity is a 75yo female referred by Dr. Wilson evaluate for pelvic muscle weakness. She has been walking with an abnormal gait for many years with unknown cause. She had MRI which showed atrophy and fatty replacement of the right gluteus medius muscle. She leans towards R side when she walks and tends to caught with her L foot sometimes. Pt had 6 falls in last year and unable to walk for long distance d/t poor balance and fall risks. Pt does not have any recent back pain but had sciatica in the past but does not recall which leg. She denies any tingling and numbness and noticeable pain at this point. No sensation loss noted from Dr. Dallas note. Pt is very active and does her full body workout program 5x/ week. Prior Treatments and Tests EMG examination shows signficiant chronic denervation without active denervation restricted tot the R gluteus medius muscle. There is no evidence of myopathy in any of the muscle sampled. The decreased right peroneal motor amplitude is a nonspecific finding in isolation, but given the normal superficial peroneal sensory response, could indicate a chronic L5/S1 radiculopathy. MRI which showed atrophy and fatty replacement of the right gluteus medius muscle Treatment Goals Patient/Caregiver Goals 1. To normalize her gait pattern 2. to be able to walk a mile Personal Factors Other Personal Factors That May Effect 6 falls in last year. 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 Patient Reported Progress Improving PT-OP-D Balance Start: 01/22/21 11:36 Freq: Status: Active Protocol: Document 01/22/21 11:40 HH (Rec: 01/22/21 12:12 HH [email or web address]) Balance Tests Single Limb Standing Single Limb- Right 1 Single Limb- Left 9 PT-OP-F Manual Assessment Start: 01/22/21 11:36 Freq: Status: Active Protocol: Document 01/22/21 11:40 HH (Rec: 01/22/21 12:12 HH [email or web address]) Manual Assessments Soft Tissue Assessment Soft Tissue Mobility Assessment hypertonicity noted at R SIJ, proximal gluteal max insertion reports of tingling sensation at lateral thigh with pressure at gluteus medius atrophy noted at R gluteal muscle group Joint Mobility Assessment Joint Mobility Assessment WFL PT-OP-G Mobility & Gait Start: 01/22/21 11:36 Freq: Status: Active Protocol: Document 01/22/21 11:40 HH (Rec: 01/22/21 12:12 HH [email or web address]) OP Gait Assessment Gait Deviations General Gait Pattern Decreased Stride Length, Decreased Feet Clearance, Lateral Trunk Lean Factors Limiting Gait Function Factors Limiting Gait Function Decreased Activity Tolerance, Decreased Strength,Poor Balance Comments Gait Comments +ve tredelenburg sign on R side during stance phase on REL. Mild knee valgus noted on R knee as well. PT-OP-H Neuro Start: 01/22/21 11:36 Freq: Status: Active Protocol: Document 01/22/21 11:40 HH (Rec: 01/22/21 12:12 HH [email or web address]) Sensation Evaluation Gross Sensation Gross Sensation WNL Deep Tendon Reflex & Clonus Assessment Deep Tendon Reflex Bilateral Achilles Deep Tendon Reflex 2+ Normal Bilateral Patellar Deep Tendon Reflex 2+ Normal PT-OP-J Posture/Palpation/Skin Start: 01/22/21 11:36 Freq: Status: Active Protocol: Document 01/22/21 11:40 HH (Rec: 01/22/21 12:12 [email or web address]) Posture Evaluation Position Standing Weight Distribution Weight Shifted Left,Decreased Wt.Bear on (R) PT-OP-K Range of Motion Start: 01/22/21 11:36 Freq: Status: Active Protocol: Document 01/22/21 11:40 HH (Rec: 01/22/21 12:12 [email or web address]) Hip Goniometric Range of Motion Hip Right Active Hip ROM WFL Yes Left Active Hip ROM WFL Yes Knee Goniometric Range of Motion Knee Right Knee ROM WFL Yes Left Knee ROM WFL Yes PT-OP-L Special Tests Start: 01/22/21 11:36 Freq: Status: Active Protocol: Document 01/22/21 11:40 HH (Rec: 01/22/21 12:12 [email or web address]) Special Tests Hip Special Tests Piriformis Test Results -ve Scour Test Test Results -ve FLACO Test Results -ve Trendelenberg Test Results +R Comments significant R lateral trunk lean and L hip drop during stance phase of RLE PT-OP-M Strength Start: 01/22/21 11:36 Freq: Status: Active Protocol: Document 01/22/21 11:40 HH (Rec: 01/22/21 12:12 [email or web address]) Hip Strength Hip Manual Muscle Testing Right Flexion (L2) 3+ Fair+ Extension (S1) 3+ Fair+ Abduction 2 Poor Adduction 4- Good- External Rotation 4 Good Internal Rotation 3+ Fair+ Left Flexion (L2) 4+ Good+ Extension (S1) 4+ Good+ Abduction 4+ Good+ Adduction 4+ Good+ External Rotation 4 Good Internal Rotation 4- Good- Knee Strength Knee Manual Muscle Testing Left Flexion (S2) 4+ Good+ Extension (L3) 4+ Good+ Right Flexion (S2) 4+ Good+ Extension (L3) 4+ Good+ Ankle/Foot Strength Ankle and Foot Manual Muscle Testing Left Dorsiflexion (L4) 4+ Good+ Plantarflexion (S1) 4+ Good+ Inversion 4+ Good+ Eversion (S1) 4+ Good+ Right Dorsiflexion (L4) 4+ Good+ Plantarflexion (S1) 4+ Good+ Inversion 4+ Good+ Eversion (S1) 4+ Good+ PT-OP-Q Treatments Start: 01/22/21 11:36 Freq: Status: Active Protocol: Document 02/13/21 13:49 SP (Rec: 02/13/21 16:14 SP [id number]) Gym Equipment Shuttle Recovery B squat Details cued knees apart- good self corrections Resistance #50 Shuttle Recovery Platform Unstable Reps/Time x10 SL squat Details good effort, cued knee alignment glut/quad facilitation Resistance 50# Shuttle Recovery Platform Stable Reps/Time 2x15 Therapeutic Exercises Supine Exercises bridge Supine Exercise Name provided #2 loop band for HEP Side bilateral Equipment Used YTB x10> GTB x10 supine clamshell Supine Exercise Name provided #2 loop band for HEP Side bilateral Reps/Minutes x10 YTB> x10 GTB Comments cued slow pacing control Prone Exercises hip ext Prone Exercise Name hip ER and DF Side bilateral Equipment Used AROM Reps/Minutes 3 sec hold x5 x2 sets Sidelying Exercises hip abd Sidelying Exercise Name w/ ER and DF lift Side bilateral Reps/Minutes 2 x5 2 sec hold Comments cued slight alignment corrections for hip abd focus clamshell Side bilateral Reps/Minutes x10 YTB> x10 GTb Comments good pacing control Standing Exercises standing hip abd Standing Exercise Name pt declined stating to hard right now SL stance Standing Exercise Name stance at bottom stairs Side right Resistance CG Equipment Used SLS 11 sec LLE R rail, R SLS B UE support Reps/Minutes tall posture over stance LE, quad knee ext, space between knees, bottom tuc Comments for R stance phase, improved glut facilitation Gait Training Gait Activity gait in mirror Description forward/backward in mirror Device Used none Level of Assistance CGA- Min Surface level Distance/Duration 10 ft x 2 laps Treatment Focus glut and quad facilitation stance LE Comments use of rail and mirror next tx PT-OP-T Assessment and Plan Start: 01/22/21 11:36 Freq: Status: Active Protocol: Document 02/13/21 13:49 SP (Rec: 02/13/21 16:14 SP [id number]) Physical Therapy Assessment Goals balance Impairment pt does has have single leg balance on RLE Short Term Goal (STG) pt will improve her R single leg balance by 4 seconds to improve her gait stability. STG Duration 5 weeks Car Wrecker Goal (LTG) pt will improve her R single leg balance by 8 seconds to improve her gait stability. LTG Duration 10 weeks activity tolerance Impairment pt cannot walk for long distance Short Term Goal (STG) pt will be able to complete a 0.5 walk 3 times a week without increase in discomfort . STG Duration 5 weeks Group Home Goal (LTG) pt will be able to complete a mile walk 3 times a week without increase in discomfort . LTG Duration 10 weeks strength Impairment pt has 2/5 muscle strength at R hip abduction Short Term Goal (STG) Pt will gain 1 MMT grade on her R hip abduction to improve her gait mechanics. STG Duration 5 weeks Group Home Goal (LTG) Pt will gain 2 MMT grade on her R hip abduction to improve her trendelenburg sign during gait. LTG Duration 10 weeks LEFS Impairment pt scores 56 on LEFS Car Wrecker Goal (LTG) pt will score 65 on LEFS to improve her overall and mobility and strength. LTG Duration 10 weeks Assessment Summary Assessment Pt work hard throughout tx, tx focused on glut and quad facilitation R>L today. Started tx shuttle>SLS>table HEP. Pt improved in L stance phase during SLS, RLE improved but still L hip drop BUE support. Physical Therapy Plan Frequency and Duration Frequency of Treatment 2x/Week Duration of Treatment 10 weeks Plan of Care Start Date 01/22/21 Plan of Care End Date 04/07/21 Therapeutic Interventions Therapeutic Interventions Aquatic Therapy,Balance Training,Gait Training,Home Exercise Program,Joint Mobilizations,Manual Therapy, Neuromuscular Re-education, Patient/Caregiver Education, Self-Care/Home Management, Sensory Integration,Soft Tissue Mobilization,Taping, Therapeutic Activities, Therapeutic Exercises Modalities Cold Pack/Ice Massage,Electric Stimulation,Hot Packs, Infrared Therapy,Ultrasound Next Visit Focus/Plan Next Note Type Treatment Note Next Visit Plan Assess response to HEP review increased GTB and hip abd/ext table instead standing. Continue per PT POC: STM at R SIJ, gluteal insertion clam shell supine hip ER bridging hold
--- NOTE | 2021-02-15 13:45 | PT.OTN ---
Current Diagnoses Other symptoms and signs involving the musculoskeletal system (02/15/21) Physical Therapy Treatment Note PT-OP-A Visit Information Start: 01/22/21 11:36 Freq: Status: Active Protocol: Document 02/15/21 13:01 SP (Rec: 02/15/21 13:47 SP [id number]) Out-Patient Physical Therapy Visit Information Visit Information Visit Type Treatment Note Visit Start Time 13:01 Visit Stop Time 13:45 Total Visit Minutes 44 Visit Number 04/14 Number of NURSE EMERGENCY ROOM Visits 2 Evaluation Information Evaluation Date 01/22/21 Precautions Precautions 6 falls in last year. depression PT-OP-B Current Condition Start: 01/22/21 11:36 Freq: Status: Active Protocol: Document 01/22/21 11:40 HH (Rec: 01/22/21 12:12 HH [email or web address]) Current Condition History of Current Condition Onset Date many years ago Current Complaints R hip weakness, decreased balance, difficulty in walking History of Current Condition Serenity is a 75yo female referred by Dr. Wilson evaluate for pelvic muscle weakness. She has been walking with an abnormal gait for many years with unknown cause. She had MRI which showed atrophy and fatty replacement of the right gluteus medius muscle. She leans towards R side when she walks and tends to caught with her L foot sometimes. Pt had 6 falls in last year and unable to walk for long distance d/t poor balance and fall risks. Pt does not have any recent back pain but had sciatica in the past but does not recall which leg. She denies any tingling and numbness and noticeable pain at this point. No sensation loss noted from Dr. Dallas note. Pt is very active and does her full body workout program 5x/ week. Prior Treatments and Tests EMG examination shows signficiant chronic denervation without active denervation restricted tot the R gluteus medius muscle. There is no evidence of myopathy in any of the muscle sampled. The decreased right peroneal motor amplitude is a nonspecific finding in isolation, but given the normal superficial peroneal sensory response, could indicate a chronic L5/S1 radiculopathy. MRI which showed atrophy and fatty replacement of the right gluteus medius muscle Treatment Goals Patient/Caregiver Goals 1. To normalize her gait pattern 2. to be able to walk a mile Personal Factors Other Personal Factors That May Effect 6 falls in last year. 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 Patient Reported Progress Improving PT-OP-D Balance Start: 01/22/21 11:36 Freq: Status: Active Protocol: Document 01/22/21 11:40 HH (Rec: 01/22/21 12:12 HH [email or web address]) Balance Tests Single Limb Standing Single Limb- Right 1 Single Limb- Left 9 PT-OP-F Manual Assessment Start: 01/22/21 11:36 Freq: Status: Active Protocol: Document 01/22/21 11:40 HH (Rec: 01/22/21 12:12 HH [email or web address]) Manual Assessments Soft Tissue Assessment Soft Tissue Mobility Assessment hypertonicity noted at R SIJ, proximal gluteal max insertion reports of tingling sensation at lateral thigh with pressure at gluteus medius atrophy noted at R gluteal muscle group Joint Mobility Assessment Joint Mobility Assessment WFL PT-OP-G Mobility & Gait Start: 01/22/21 11:36 Freq: Status: Active Protocol: Document 01/22/21 11:40 HH (Rec: 01/22/21 12:12 HH [email or web address]) OP Gait Assessment Gait Deviations General Gait Pattern Decreased Stride Length, Decreased Feet Clearance, Lateral Trunk Lean Factors Limiting Gait Function Factors Limiting Gait Function Decreased Activity Tolerance, Decreased Strength,Poor Balance Comments Gait Comments +ve tredelenburg sign on R side during stance phase on REL. Mild knee valgus noted on R knee as well. PT-OP-H Neuro Start: 01/22/21 11:36 Freq: Status: Active Protocol: Document 01/22/21 11:40 HH (Rec: 01/22/21 12:12 HH [email or web address]) Sensation Evaluation Gross Sensation Gross Sensation WNL Deep Tendon Reflex & Clonus Assessment Deep Tendon Reflex Bilateral Achilles Deep Tendon Reflex 2+ Normal Bilateral Patellar Deep Tendon Reflex 2+ Normal PT-OP-J Posture/Palpation/Skin Start: 01/22/21 11:36 Freq: Status: Active Protocol: Document 01/22/21 11:40 HH (Rec: 01/22/21 12:12 [email or web address]) Posture Evaluation Position Standing Weight Distribution Weight Shifted Left,Decreased Wt.Bear on (R) PT-OP-K Range of Motion Start: 01/22/21 11:36 Freq: Status: Active Protocol: Document 01/22/21 11:40 HH (Rec: 01/22/21 12:12 HH [email or web address]) Hip Goniometric Range of Motion Hip Right Active Hip ROM WFL Yes Left Active Hip ROM WFL Yes Knee Goniometric Range of Motion Knee Right Knee ROM WFL Yes Left Knee ROM WFL Yes PT-OP-L Special Tests Start: 01/22/21 11:36 Freq: Status: Active Protocol: Document 01/22/21 11:40 HH (Rec: 01/22/21 12:12 [email or web address]) Special Tests Hip Special Tests Piriformis Test Results -ve Scour Test Test Results -ve FLACO Test Results -ve Trendelenberg Test Results +R Comments significant R lateral trunk lean and L hip drop during stance phase of RLE PT-OP-M Strength Start: 01/22/21 11:36 Freq: Status: Active Protocol: Document 01/22/21 11:40 HH (Rec: 01/22/21 12:12 [email or web address]) Hip Strength Hip Manual Muscle Testing Right Flexion (L2) 3+ Fair+ Extension (S1) 3+ Fair+ Abduction 2 Poor Adduction 4- Good- External Rotation 4 Good Internal Rotation 3+ Fair+ Left Flexion (L2) 4+ Good+ Extension (S1) 4+ Good+ Abduction 4+ Good+ Adduction 4+ Good+ External Rotation 4 Good Internal Rotation 4- Good- Knee Strength Knee Manual Muscle Testing Left Flexion (S2) 4+ Good+ Extension (L3) 4+ Good+ Right Flexion (S2) 4+ Good+ Extension (L3) 4+ Good+ Ankle/Foot Strength Ankle and Foot Manual Muscle Testing Left Dorsiflexion (L4) 4+ Good+ Plantarflexion (S1) 4+ Good+ Inversion 4+ Good+ Eversion (S1) 4+ Good+ Right Dorsiflexion (L4) 4+ Good+ Plantarflexion (S1) 4+ Good+ Inversion 4+ Good+ Eversion (S1) 4+ Good+ PT-OP-Q Treatments Start: 01/22/21 11:36 Freq: Status: Active Protocol: Document 02/15/21 13:01 SP (Rec: 02/15/21 13:47 SP [id number]) Therapeutic Exercises Supine Exercises bridge Supine Exercise Name provided #2 loop band for HEP Side bilateral Equipment Used #2 supine clamshell Supine Exercise Name provided #2 loop band for HEP Side bilateral Reps/Minutes #2 TB Comments good slow pacing control Prone Exercises hip ext Prone Exercise Name hip ER and DF Side bilateral Equipment Used AROM Reps/Minutes 3 sec hold x5 x2 sets Sidelying Exercises hip abd Sidelying Exercise Name w/ ER and DF lift Side bilateral Reps/Minutes 2 x5 2 sec hold Comments cued slight alignment corrections for hip abd focus Standing Exercises side stepping Equipment Used rail Min contact to L, Mod contact R Reps/Minutes 15 ft x3 laps Comments cued glut, quad, COG over LUCINDA, clear trail LE standing hip abd Resistance AROM Equipment Used B HR bottom sydnee p Comments cued quad and glut facilitation, tall posture Gait Training Gait Activity stair mgt Description ascend/ descend Device Used 1 HR Level of Assistance S Distance/Duration 4 steps x3 sets Comments improved decreased valgus w/ cues for space between B knees . PT-OP-T Assessment and Plan Start: 01/22/21 11:36 Freq: Status: Active Protocol: Document 02/15/21 13:01 SP (Rec: 02/15/21 13:47 SP [id number]) Physical Therapy Assessment Goals balance Impairment pt does has have single leg balance on RLE Short Term Goal (STG) pt will improve her R single leg balance by 4 seconds to improve her gait stability. STG Duration 5 weeks Trauma Director Goal (LTG) pt will improve her R single leg balance by 8 seconds to improve her gait stability. LTG Duration 10 weeks activity tolerance Impairment pt cannot walk for long distance Short Term Goal (STG) pt will be able to complete a 0.5 walk 3 times a week without increase in discomfort . STG Duration 5 weeks Alf Goal (LTG) pt will be able to complete a mile walk 3 times a week without increase in discomfort . LTG Duration 10 weeks strength Impairment pt has 2/5 muscle strength at R hip abduction Short Term Goal (STG) Pt will gain 1 MMT grade on her R hip abduction to improve her gait mechanics. STG Duration 5 weeks Alf Goal (LTG) Pt will gain 2 MMT grade on her R hip abduction to improve her trendelenburg sign during gait. LTG Duration 10 weeks LEFS Impairment pt scores 56 on LEFS Alf Goal (LTG) pt will score 65 on LEFS to improve her overall and mobility and strength. LTG Duration 10 weeks Assessment Summary Assessment Pt improved glut and quad facilitation during standing activities, and gait decreased knee valgus cave with conscious effort each step. Good stair mgt 1 contact rail with cue for knee abd awareness with very slight lateral wt trunk shift. Physical Therapy Plan Frequency and Duration Frequency of Treatment 2x/Week Duration of Treatment 10 weeks Plan of Care Start Date 01/22/21 Plan of Care End Date 04/07/21 Therapeutic Interventions Therapeutic Interventions Aquatic Therapy,Balance Training,Gait Training,Home Exercise Program,Joint Mobilizations,Manual Therapy, Neuromuscular Re-education, Patient/Caregiver Education, Self-Care/Home Management, Sensory Integration,Soft Tissue Mobilization,Taping, Therapeutic Activities, Therapeutic Exercises Modalities Cold Pack/Ice Massage,Electric Stimulation,Hot Packs, Infrared Therapy,Ultrasound Next Visit Focus/Plan Next Note Type Treatment Note Next Visit Plan Assess response to HEP review initiated prone hip ext, side hip abd, standing abd and side stepping at rail. Continue per PT POC: STM at R SIJ, gluteal insertion clam shell supine hip ER bridging hold Continue improved hip abd and glut fac to allow level pelvis and aligned knees during gait.
--- NOTE | 2021-02-19 16:09 | PT.OTN ---
Current Diagnoses Other symptoms and signs involving the musculoskeletal system (02/19/21) Physical Therapy Treatment Note PT-OP-A Visit Information Start: 01/22/21 11:36 Freq: Status: Active Protocol: Document 02/19/21 15:20 HH (Rec: 02/19/21 16:09 HH [id number]) Out-Patient Physical Therapy Visit Information Visit Information Visit Type Treatment Note Visit Start Time 15:18 Visit Stop Time 16:00 Total Visit Minutes 42 Visit Number 05/14 Number of SLIP BRIDGE OPERATOR Visits 2 PT-OP-B Current Condition Start: 01/22/21 11:36 Freq: Status: Active Protocol: Document 01/22/21 11:40 HH (Rec: 01/22/21 12:12 HH [email or web address]) Current Condition History of Current Condition Onset Date many years ago Current Complaints R hip weakness, decreased balance, difficulty in walking History of Current Condition Serenity is a 75yo female referred by Dr. Wilson evaluate for pelvic muscle weakness. She has been walking with an abnormal gait for many years with unknown cause. She had MRI which showed atrophy and fatty replacement of the right gluteus medius muscle. She leans towards R side when she walks and tends to caught with her L foot sometimes. Pt had 6 falls in last year and unable to walk for long distance d/t poor balance and fall risks. Pt does not have any recent back pain but had sciatica in the past but does not recall which leg. She denies any tingling and numbness and noticeable pain at this point. No sensation loss noted from Dr. Dallas note. Pt is very active and does her full body workout program 5x/ week. Prior Treatments and Tests EMG examination shows signficiant chronic denervation without active denervation restricted tot the R gluteus medius muscle. There is no evidence of myopathy in any of the muscle sampled. The decreased right peroneal motor amplitude is a nonspecific finding in isolation, but given the normal superficial peroneal sensory response, could indicate a chronic L5/S1 radiculopathy. MRI which showed atrophy and fatty replacement of the right gluteus medius muscle Treatment Goals Patient/Caregiver Goals 1. To normalize her gait pattern 2. to be able to walk a mile Personal Factors Other Personal Factors That May Effect 6 falls in last year. 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 My walking and balance have been both getting better even my and my friends noticed that Patient Reported Progress Improving PT-OP-D Balance Start: 01/22/21 11:36 Freq: Status: Active Protocol: Document 01/22/21 11:40 HH (Rec: 01/22/21 12:12 HH [email or web address]) Balance Tests Single Limb Standing Single Limb- Right 1 Single Limb- Left 9 PT-OP-F Manual Assessment Start: 01/22/21 11:36 Freq: Status: Active Protocol: Document 01/22/21 11:40 HH (Rec: 01/22/21 12:12 HH [email or web address]) Manual Assessments Soft Tissue Assessment Soft Tissue Mobility Assessment hypertonicity noted at R SIJ, proximal gluteal max insertion reports of tingling sensation at lateral thigh with pressure at gluteus medius atrophy noted at R gluteal muscle group Joint Mobility Assessment Joint Mobility Assessment WFL PT-OP-G Mobility & Gait Start: 01/22/21 11:36 Freq: Status: Active Protocol: Document 01/22/21 11:40 HH (Rec: 01/22/21 12:12 HH [email or web address]) OP Gait Assessment Gait Deviations General Gait Pattern Decreased Stride Length, Decreased Feet Clearance, Lateral Trunk Lean Factors Limiting Gait Function Factors Limiting Gait Function Decreased Activity Tolerance, Decreased Strength,Poor Balance Comments Gait Comments +ve tredelenburg sign on R side during stance phase on REL. Mild knee valgus noted on R knee as well. PT-OP-H Neuro Start: 01/22/21 11:36 Freq: Status: Active Protocol: Document 01/22/21 11:40 HH (Rec: 01/22/21 12:12 HH [email or web address]) Sensation Evaluation Gross Sensation Gross Sensation WNL Deep Tendon Reflex & Clonus Assessment Deep Tendon Reflex Bilateral Achilles Deep Tendon Reflex 2+ Normal Bilateral Patellar Deep Tendon Reflex 2+ Normal PT-OP-J Posture/Palpation/Skin Start: 01/22/21 11:36 Freq: Status: Active Protocol: Document 01/22/21 11:40 HH (Rec: 01/22/21 12:12 HH [email or web address]) Posture Evaluation Position Standing Weight Distribution Weight Shifted Left,Decreased Wt.Bear on (R) PT-OP-K Range of Motion Start: 01/22/21 11:36 Freq: Status: Active Protocol: Document 01/22/21 11:40 HH (Rec: 01/22/21 12:12 [email or web address]) Hip Goniometric Range of Motion Hip Right Active Hip ROM WFL Yes Left Active Hip ROM WFL Yes Knee Goniometric Range of Motion Knee Right Knee ROM WFL Yes Left Knee ROM WFL Yes PT-OP-L Special Tests Start: 01/22/21 11:36 Freq: Status: Active Protocol: Document 01/22/21 11:40 HH (Rec: 01/22/21 12:12 [email or web address]) Special Tests Hip Special Tests Piriformis Test Results -ve Scour Test Test Results -ve FLACO Test Results -ve Trendelenberg Test Results +R Comments significant R lateral trunk lean and L hip drop during stance phase of RLE PT-OP-M Strength Start: 01/22/21 11:36 Freq: Status: Active Protocol: Document 01/22/21 11:40 HH (Rec: 01/22/21 12:12 [email or web address]) Hip Strength Hip Manual Muscle Testing Right Flexion (L2) 3+ Fair+ Extension (S1) 3+ Fair+ Abduction 2 Poor Adduction 4- Good- External Rotation 4 Good Internal Rotation 3+ Fair+ Left Flexion (L2) 4+ Good+ Extension (S1) 4+ Good+ Abduction 4+ Good+ Adduction 4+ Good+ External Rotation 4 Good Internal Rotation 4- Good- Knee Strength Knee Manual Muscle Testing Left Flexion (S2) 4+ Good+ Extension (L3) 4+ Good+ Right Flexion (S2) 4+ Good+ Extension (L3) 4+ Good+ Ankle/Foot Strength Ankle and Foot Manual Muscle Testing Left Dorsiflexion (L4) 4+ Good+ Plantarflexion (S1) 4+ Good+ Inversion 4+ Good+ Eversion (S1) 4+ Good+ Right Dorsiflexion (L4) 4+ Good+ Plantarflexion (S1) 4+ Good+ Inversion 4+ Good+ Eversion (S1) 4+ Good+ PT-OP-Q Treatments Start: 01/22/21 11:36 Freq: Status: Active Protocol: Document 02/19/21 15:20 HH (Rec: 02/19/21 16:09 [id number]) Gym Equipment Shuttle Recovery B squat Details cued knees apart- good self corrections Resistance #50 Shuttle Recovery Platform Unstable Reps/Time x10 SL squat Details good effort, cued knee alignment glut/quad facilitation Resistance 50# Shuttle Recovery Platform Stable Reps/Time 2x15 Therapeutic Exercises Supine Exercises supine hip abduction Side bilateral Reps/Minutes 8 x 2 bridge Supine Exercise Name provided #2 loop band for HEP Side bilateral Equipment Used #2 supine clamshell Supine Exercise Name provided #2 loop band for HEP Side bilateral Reps/Minutes #2 TB Comments good slow pacing control Standing Exercises side stepping Equipment Used no support Reps/Minutes 15 ft x4 laps Comments cued glut, quad, COG over LUCINDA, clear trail LE Manual Therapy Treatment Soft Tissue Mobilization glutes Mobilization Type Sustained Pressure,Trigger Point Release Intensity/Depth Moderate Body Position Sidelying PT-OP-T Assessment and Plan Start: 01/22/21 11:36 Freq: Status: Active Protocol: Document 02/19/21 15:20 (Rec: 02/19/21 16:09 [id number]) Physical Therapy Assessment Goals balance Impairment pt does has have single leg balance on RLE Short Term Goal (STG) pt will improve her R single leg balance by 4 seconds to improve her gait stability. STG Duration 5 weeks Benefits Administrator Goal (LTG) pt will improve her R single leg balance by 8 seconds to improve her gait stability. LTG Duration 10 weeks activity tolerance Impairment pt cannot walk for long distance Short Term Goal (STG) pt will be able to complete a 0.5 walk 3 times a week without increase in discomfort . STG Duration 5 weeks Benefits Administrator Goal (LTG) pt will be able to complete a mile walk 3 times a week without increase in discomfort . LTG Duration 10 weeks strength Impairment pt has 2/5 muscle strength at R hip abduction Short Term Goal (STG) Pt will gain 1 MMT grade on her R hip abduction to improve her gait mechanics. STG Duration 5 weeks Benefits Administrator Goal (LTG) Pt will gain 2 MMT grade on her R hip abduction to improve her trendelenburg sign during gait. LTG Duration 10 weeks LEFS Impairment pt scores 56 on LEFS Penitentiary Goal (LTG) pt will score 65 on LEFS to improve her overall and mobility and strength. LTG Duration 10 weeks Assessment Summary Assessment Pt cont to show improvements in R hip strength and stability during gait. She is still unable to perform active hip abduction in SL position but able to complete in supine position. Physical Therapy Plan Frequency and Duration Frequency of Treatment 2x/Week Duration of Treatment 10 weeks Plan of Care Start Date 01/22/21 Plan of Care End Date 04/07/21 Therapeutic Interventions Therapeutic Interventions Aquatic Therapy,Balance Training,Gait Training,Home Exercise Program,Joint Mobilizations,Manual Therapy, Neuromuscular Re-education, Patient/Caregiver Education, Self-Care/Home Management, Sensory Integration,Soft Tissue Mobilization,Taping, Therapeutic Activities, Therapeutic Exercises Modalities Cold Pack/Ice Massage,Electric Stimulation,Hot Packs, Infrared Therapy,Ultrasound Next Visit Focus/Plan Next Note Type Treatment Note Next Visit Plan Assess response to HEP review initiated prone hip ext, side hip abd, standing abd and side stepping at rail. Continue per PT POC: STM at R SIJ, gluteal insertion clam shell supine hip ER bridging hold Continue improved hip abd and glut fac to allow level pelvis and aligned knees during gait.
--- NOTE | 2021-02-23 09:00 | PT.OTN ---
Current Diagnoses Other symptoms and signs involving the musculoskeletal system (02/23/21) Physical Therapy Treatment Note PT-OP-A Visit Information Start: 01/22/21 11:36 Freq: Status: Active Protocol: Document 02/23/21 08:18 SP (Rec: 02/23/21 09:03 SP [id number]) Out-Patient Physical Therapy Visit Information Visit Information Visit Type Treatment Note Visit Start Time 08:18 Visit Stop Time 09:00 Total Visit Minutes 42 Visit Number 06/14 Number of [employer]BER Visits 3 Evaluation Information Evaluation Date 01/22/21 Precautions Precautions 6 falls in last year. depression PT-OP-B Current Condition Start: 01/22/21 11:36 Freq: Status: Active Protocol: Document 01/22/21 11:40 HH (Rec: 01/22/21 12:12 HH [email or web address]) Current Condition History of Current Condition Onset Date many years ago Current Complaints R hip weakness, decreased balance, difficulty in walking History of Current Condition Serenity is a 75yo female referred by Dr. Wilson evaluate for pelvic muscle weakness. She has been walking with an abnormal gait for many years with unknown cause. She had MRI which showed atrophy and fatty replacement of the right gluteus medius muscle. She leans towards R side when she walks and tends to caught with her L foot sometimes. Pt had 6 falls in last year and unable to walk for long distance d/t poor balance and fall risks. Pt does not have any recent back pain but had sciatica in the past but does not recall which leg. She denies any tingling and numbness and noticeable pain at this point. No sensation loss noted from Dr. Dallas note. Pt is very active and does her full body workout program 5x/ week. Prior Treatments and Tests EMG examination shows signficiant chronic denervation without active denervation restricted tot the R gluteus medius muscle. There is no evidence of myopathy in any of the muscle sampled. The decreased right peroneal motor amplitude is a nonspecific finding in isolation, but given the normal superficial peroneal sensory response, could indicate a chronic L5/S1 radiculopathy. MRI which showed atrophy and fatty replacement of the right gluteus medius muscle Treatment Goals Patient/Caregiver Goals 1. To normalize her gait pattern 2. to be able to walk a mile Personal Factors Other Personal Factors That May Effect 6 falls in last year. 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 I am trying to do the side stepping at home and feel improving stance on LLE more than RLE. Patient Reported Progress Improving PT-OP-D Balance Start: 01/22/21 11:36 Freq: Status: Active Protocol: Document 01/22/21 11:40 HH (Rec: 01/22/21 12:12 HH [email or web address]) Balance Tests Single Limb Standing Single Limb- Right 1 Single Limb- Left 9 PT-OP-F Manual Assessment Start: 01/22/21 11:36 Freq: Status: Active Protocol: Document 01/22/21 11:40 HH (Rec: 01/22/21 12:12 HH [email or web address]) Manual Assessments Soft Tissue Assessment Soft Tissue Mobility Assessment hypertonicity noted at R SIJ, proximal gluteal max insertion reports of tingling sensation at lateral thigh with pressure at gluteus medius atrophy noted at R gluteal muscle group Joint Mobility Assessment Joint Mobility Assessment WFL PT-OP-G Mobility & Gait Start: 01/22/21 11:36 Freq: Status: Active Protocol: Document 01/22/21 11:40 HH (Rec: 01/22/21 12:12 HH [email or web address]) OP Gait Assessment Gait Deviations General Gait Pattern Decreased Stride Length, Decreased Feet Clearance, Lateral Trunk Lean Factors Limiting Gait Function Factors Limiting Gait Function Decreased Activity Tolerance, Decreased Strength,Poor Balance Comments Gait Comments +ve tredelenburg sign on R side during stance phase on REL. Mild knee valgus noted on R knee as well. PT-OP-H Neuro Start: 01/22/21 11:36 Freq: Status: Active Protocol: Document 01/22/21 11:40 HH (Rec: 01/22/21 12:12 HH [email or web address]) Sensation Evaluation Gross Sensation Gross Sensation WNL Deep Tendon Reflex & Clonus Assessment Deep Tendon Reflex Bilateral Achilles Deep Tendon Reflex 2+ Normal Bilateral Patellar Deep Tendon Reflex 2+ Normal PT-OP-J Posture/Palpation/Skin Start: 01/22/21 11:36 Freq: Status: Active Protocol: Document 01/22/21 11:40 HH (Rec: 01/22/21 12:12 [email or web address]) Posture Evaluation Position Standing Weight Distribution Weight Shifted Left,Decreased Wt.Bear on (R) PT-OP-K Range of Motion Start: 01/22/21 11:36 Freq: Status: Active Protocol: Document 01/22/21 11:40 HH (Rec: 01/22/21 12:12 HH [email or web address]) Hip Goniometric Range of Motion Hip Right Active Hip ROM WFL Yes Left Active Hip ROM WFL Yes Knee Goniometric Range of Motion Knee Right Knee ROM WFL Yes Left Knee ROM WFL Yes PT-OP-L Special Tests Start: 01/22/21 11:36 Freq: Status: Active Protocol: Document 01/22/21 11:40 HH (Rec: 01/22/21 12:12 HH [email or web address]) Special Tests Hip Special Tests Piriformis Test Results -ve Scour Test Test Results -ve FLACO Test Results -ve Trendelenberg Test Results +R Comments significant R lateral trunk lean and L hip drop during stance phase of RLE PT-OP-M Strength Start: 01/22/21 11:36 Freq: Status: Active Protocol: Document 01/22/21 11:40 HH (Rec: 01/22/21 12:12 [email or web address]) Hip Strength Hip Manual Muscle Testing Right Flexion (L2) 3+ Fair+ Extension (S1) 3+ Fair+ Abduction 2 Poor Adduction 4- Good- External Rotation 4 Good Internal Rotation 3+ Fair+ Left Flexion (L2) 4+ Good+ Extension (S1) 4+ Good+ Abduction 4+ Good+ Adduction 4+ Good+ External Rotation 4 Good Internal Rotation 4- Good- Knee Strength Knee Manual Muscle Testing Left Flexion (S2) 4+ Good+ Extension (L3) 4+ Good+ Right Flexion (S2) 4+ Good+ Extension (L3) 4+ Good+ Ankle/Foot Strength Ankle and Foot Manual Muscle Testing Left Dorsiflexion (L4) 4+ Good+ Plantarflexion (S1) 4+ Good+ Inversion 4+ Good+ Eversion (S1) 4+ Good+ Right Dorsiflexion (L4) 4+ Good+ Plantarflexion (S1) 4+ Good+ Inversion 4+ Good+ Eversion (S1) 4+ Good+ PT-OP-Q Treatments Start: 01/22/21 11:36 Freq: Status: Active Protocol: Document 02/23/21 08:18 SP (Rec: 02/23/21 09:03 SP [id number]) Gym Equipment Shuttle Recovery B squat Details cued knees apart- good self corrections Resistance #50x10> 62# x10 Shuttle Recovery Platform Unstable SL squat Details good effort, cued knee alignment glut/quad facilitation Resistance 50# Shuttle Recovery Platform Stable Reps/Time 2x15 Therapeutic Exercises Supine Exercises supine hip abduction Side bilateral Reps/Minutes 8 x 2 bridge Side bilateral Resistance #2 Tb loop Reps/Minutes 3x10 Standing Exercises SLS step over back Standing Exercise Name added to HEP Side bilateral Equipment Used cane on floor, mirror self feedback alignment Reps/Minutes 3x8 reps SLS L, 3x4 reps SLS R Comments cued quad and glut facilitation, tall posture standing hip abd Standing Exercise Name hep review Side bilateral Resistance AROM Equipment Used at rail Reps/Minutes x10 reps no contact L SLS, x6- 8 R SLS mod UE support Comments cued quad and glut facilitation, tall posture Other Exercises self STMs Other Exercise Name gluts Side bilateral Comments racquetball roll over gluts at wall with no adverse reactions PT-OP-T Assessment and Plan Start: 01/22/21 11:36 Freq: Status: Active Protocol: Document 02/23/21 08:18 SP (Rec: 02/23/21 09:03 SP [id number]) Physical Therapy Assessment Goals balance Impairment pt does has have single leg balance on RLE Short Term Goal (STG) pt will improve her R single leg balance by 4 seconds to improve her gait stability. STG Duration 5 weeks Tongue Lining Stitcher Goal (LTG) pt will improve her R single leg balance by 8 seconds to improve her gait stability. LTG Duration 10 weeks activity tolerance Impairment pt cannot walk for long distance Short Term Goal (STG) pt will be able to complete a 0.5 walk 3 times a week without increase in discomfort . STG Duration 5 weeks Senior Living Goal (LTG) pt will be able to complete a mile walk 3 times a week without increase in discomfort . LTG Duration 10 weeks strength Impairment pt has 2/5 muscle strength at R hip abduction Short Term Goal (STG) Pt will gain 1 MMT grade on her R hip abduction to improve her gait mechanics. STG Duration 5 weeks Tongue Lining Stitcher Goal (LTG) Pt will gain 2 MMT grade on her R hip abduction to improve her trendelenburg sign during gait. LTG Duration 10 weeks LEFS Impairment pt scores 56 on LEFS Tongue Lining Stitcher Goal (LTG) pt will score 65 on LEFS to improve her overall and mobility and strength. LTG Duration 10 weeks Assessment Summary Assessment Pt responded well to standing stationary glut facilitaiton strengthening improved trunk alignment and support for SLS. Reviewed supine/ sidelying HEP with good form. Physical Therapy Plan Frequency and Duration Frequency of Treatment 2x/Week Duration of Treatment 10 weeks Plan of Care Start Date 01/22/21 Plan of Care End Date 04/07/21 Therapeutic Interventions Therapeutic Interventions Aquatic Therapy,Balance Training,Gait Training,Home Exercise Program,Joint Mobilizations,Manual Therapy, Neuromuscular Re-education, Patient/Caregiver Education, Self-Care/Home Management, Sensory Integration,Soft Tissue Mobilization,Taping, Therapeutic Activities, Therapeutic Exercises Modalities Cold Pack/Ice Massage,Electric Stimulation,Hot Packs, Infrared Therapy,Ultrasound Next Visit Focus/Plan Next Note Type Treatment Note Next Visit Plan Assess response to HEP review side hip abd, standing abd and stand step over back instead side stepping at rail. next tx review prond hip ext. Continue per PT POC: STM at R SIJ, gluteal insertion clam shell supine hip ER bridging hold Continue improved hip abd and glut fac to allow level pelvis and aligned knees during gait.
--- NOTE | 2021-03-08 16:11 | PT.OTN ---
Current Diagnoses Other symptoms and signs involving the musculoskeletal system (03/08/21) Physical Therapy Treatment Note PT-OP-A Visit Information Start: 01/22/21 11:36 Freq: Status: Active Protocol: Document 03/08/21 14:31 HH (Rec: 03/08/21 16:11 HH [id number]) Out-Patient Physical Therapy Visit Information Visit Information Visit Type Treatment Note Visit Start Time 14:32 Visit Stop Time 15:15 Total Visit Minutes 43 Visit Number 07/15 Number of [employer]BLER Visits 0 PT-OP-B Current Condition Start: 01/22/21 11:36 Freq: Status: Active Protocol: Document 01/22/21 11:40 HH (Rec: 01/22/21 12:12 HH [email or web address]) Current Condition History of Current Condition Onset Date many years ago Current Complaints R hip weakness, decreased balance, difficulty in walking History of Current Condition Serenity is a 75yo female referred by Dr. Wilson evaluate for pelvic muscle weakness. She has been walking with an abnormal gait for many years with unknown cause. She had MRI which showed atrophy and fatty replacement of the right gluteus medius muscle. She leans towards R side when she walks and tends to caught with her L foot sometimes. Pt had 6 falls in last year and unable to walk for long distance d/t poor balance and fall risks. Pt does not have any recent back pain but had sciatica in the past but does not recall which leg. She denies any tingling and numbness and noticeable pain at this point. No sensation loss noted from Dr. Dallas note. Pt is very active and does her full body workout program 5x/ week. Prior Treatments and Tests EMG examination shows signficiant chronic denervation without active denervation restricted tot the R gluteus medius muscle. There is no evidence of myopathy in any of the muscle sampled. The decreased right peroneal motor amplitude is a nonspecific finding in isolation, but given the normal superficial peroneal sensory response, could indicate a chronic L5/S1 radiculopathy. MRI which showed atrophy and fatty replacement of the right gluteus medius muscle Treatment Goals Patient/Caregiver Goals 1. To normalize her gait pattern 2. to be able to walk a mile Personal Factors Other Personal Factors That May Effect 6 falls in last year. 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 I am trying to do the side stepping at home and feel improving stance on LLE more than RLE. Patient Reported Progress Improving PT-OP-D Balance Start: 01/22/21 11:36 Freq: Status: Active Protocol: Document 01/22/21 11:40 HH (Rec: 01/22/21 12:12 HH [email or web address]) Balance Tests Single Limb Standing Single Limb- Right 1 Single Limb- Left 9 PT-OP-F Manual Assessment Start: 01/22/21 11:36 Freq: Status: Active Protocol: Document 01/22/21 11:40 HH (Rec: 01/22/21 12:12 HH [email or web address]) Manual Assessments Soft Tissue Assessment Soft Tissue Mobility Assessment hypertonicity noted at R SIJ, proximal gluteal max insertion reports of tingling sensation at lateral thigh with pressure at gluteus medius atrophy noted at R gluteal muscle group Joint Mobility Assessment Joint Mobility Assessment WFL PT-OP-G Mobility & Gait Start: 01/22/21 11:36 Freq: Status: Active Protocol: Document 01/22/21 11:40 HH (Rec: 01/22/21 12:12 HH [email or web address]) OP Gait Assessment Gait Deviations General Gait Pattern Decreased Stride Length, Decreased Feet Clearance, Lateral Trunk Lean Factors Limiting Gait Function Factors Limiting Gait Function Decreased Activity Tolerance, Decreased Strength,Poor Balance Comments Gait Comments +ve tredelenburg sign on R side during stance phase on REL. Mild knee valgus noted on R knee as well. PT-OP-H Neuro Start: 01/22/21 11:36 Freq: Status: Active Protocol: Document 01/22/21 11:40 HH (Rec: 01/22/21 12:12 HH [email or web address]) Sensation Evaluation Gross Sensation Gross Sensation WNL Deep Tendon Reflex & Clonus Assessment Deep Tendon Reflex Bilateral Achilles Deep Tendon Reflex 2+ Normal Bilateral Patellar Deep Tendon Reflex 2+ Normal PT-OP-J Posture/Palpation/Skin Start: 01/22/21 11:36 Freq: Status: Active Protocol: Document 01/22/21 11:40 HH (Rec: 01/22/21 12:12 [email or web address]) Posture Evaluation Position Standing Weight Distribution Weight Shifted Left,Decreased Wt.Bear on (R) PT-OP-K Range of Motion Start: 01/22/21 11:36 Freq: Status: Active Protocol: Document 01/22/21 11:40 HH (Rec: 01/22/21 12:12 [email or web address]) Hip Goniometric Range of Motion Hip Right Active Hip ROM WFL Yes Left Active Hip ROM WFL Yes Knee Goniometric Range of Motion Knee Right Knee ROM WFL Yes Left Knee ROM WFL Yes PT-OP-L Special Tests Start: 01/22/21 11:36 Freq: Status: Active Protocol: Document 01/22/21 11:40 HH (Rec: 01/22/21 12:12 [email or web address]) Special Tests Hip Special Tests Piriformis Test Results -ve Scour Test Test Results -ve FLACO Test Results -ve Trendelenberg Test Results +R Comments significant R lateral trunk lean and L hip drop during stance phase of RLE PT-OP-M Strength Start: 01/22/21 11:36 Freq: Status: Active Protocol: Document 01/22/21 11:40 HH (Rec: 01/22/21 12:12 [email or web address]) Hip Strength Hip Manual Muscle Testing Right Flexion (L2) 3+ Fair+ Extension (S1) 3+ Fair+ Abduction 2 Poor Adduction 4- Good- External Rotation 4 Good Internal Rotation 3+ Fair+ Left Flexion (L2) 4+ Good+ Extension (S1) 4+ Good+ Abduction 4+ Good+ Adduction 4+ Good+ External Rotation 4 Good Internal Rotation 4- Good- Knee Strength Knee Manual Muscle Testing Left Flexion (S2) 4+ Good+ Extension (L3) 4+ Good+ Right Flexion (S2) 4+ Good+ Extension (L3) 4+ Good+ Ankle/Foot Strength Ankle and Foot Manual Muscle Testing Left Dorsiflexion (L4) 4+ Good+ Plantarflexion (S1) 4+ Good+ Inversion 4+ Good+ Eversion (S1) 4+ Good+ Right Dorsiflexion (L4) 4+ Good+ Plantarflexion (S1) 4+ Good+ Inversion 4+ Good+ Eversion (S1) 4+ Good+ PT-OP-Q Treatments Start: 01/22/21 11:36 Freq: Status: Active Protocol: Document 03/08/21 14:31 (Rec: 03/08/21 16:11 [id number]) Gym Equipment Shuttle Recovery SL squat Details good effort, cued knee alignment glut/quad facilitation Resistance 50# Shuttle Recovery Platform Stable Reps/Time 2x15 Therapeutic Exercises Supine Exercises bridge Side bilateral Resistance #2 Tb loop Reps/Minutes 3x10 Sidelying Exercises clamshell Side bilateral Reps/Minutes x10 YTB> x10 GTb Comments good pacing control Standing Exercises step up Equipment Used 6step on L, 4 on R Reps/Minutes 8 x2 SLS step over back Standing Exercise Name added to HEP Side bilateral Equipment Used cane on floor, mirror self feedback alignment Reps/Minutes 3x8 reps SLS L, 3x4 reps SLS R Comments cued quad and glut facilitation, tall posture Manual Therapy Treatment Soft Tissue Mobilization glutes Mobilization Type Sustained Pressure,Trigger Point Release Intensity/Depth Moderate Body Position Sidelying Comments hypertoncity noted today PT-OP-T Assessment and Plan Start: 01/22/21 11:36 Freq: Status: Active Protocol: Document 03/08/21 14:31 (Rec: 03/08/21 16:11 [id number]) Physical Therapy Assessment Goals balance Impairment pt does has have single leg balance on RLE Short Term Goal (STG) pt will improve her R single leg balance by 4 seconds to improve her gait stability. STG Duration 5 weeks Penitentiary Goal (LTG) pt will improve her R single leg balance by 8 seconds to improve her gait stability. LTG Duration 10 weeks activity tolerance Impairment pt cannot walk for long distance Short Term Goal (STG) pt will be able to complete a 0.5 walk 3 times a week without increase in discomfort . STG Duration 5 weeks Penitentiary Goal (LTG) pt will be able to complete a mile walk 3 times a week without increase in discomfort . LTG Duration 10 weeks strength Impairment pt has 2/5 muscle strength at R hip abduction Short Term Goal (STG) Pt will gain 1 MMT grade on her R hip abduction to improve her gait mechanics. STG Duration 5 weeks Penitentiary Goal (LTG) Pt will gain 2 MMT grade on her R hip abduction to improve her trendelenburg sign during gait. LTG Duration 10 weeks LEFS Impairment pt scores 56 on LEFS Cigarette Tipper Goal (LTG) pt will score 65 on LEFS to improve her overall and mobility and strength. LTG Duration 10 weeks Assessment Summary Assessment Pt reports of fatigue and soreness after her first fitness class since COVID 19 outbreak. Tx focused more on stretching and light strnegthening ex. She shows improved overall SL stability and strength, along with less lateral sway gait. AR next time Physical Therapy Plan Frequency and Duration Frequency of Treatment 2x/Week Duration of Treatment 10 weeks Plan of Care Start Date 01/22/21 Plan of Care End Date 04/07/21 Therapeutic Interventions Therapeutic Interventions Aquatic Therapy,Balance Training,Gait Training,Home Exercise Program,Joint Mobilizations,Manual Therapy, Neuromuscular Re-education, Patient/Caregiver Education, Self-Care/Home Management, Sensory Integration,Soft Tissue Mobilization,Taping, Therapeutic Activities, Therapeutic Exercises Modalities Cold Pack/Ice Massage,Electric Stimulation,Hot Packs, Infrared Therapy,Ultrasound Next Visit Focus/Plan Next Note Type Progress Note Next Visit Plan Assess response to HEP review side hip abd, standing abd and stand step over back instead side stepping at rail. next tx review prond hip ext. Continue per PT POC: STM at R SIJ, gluteal insertion clam shell supine hip ER bridging hold Continue improved hip abd and glut fac to allow level pelvis and aligned knees during gait.
--- NOTE | 2021-03-19 09:04 | PT.OTN ---
Current Diagnoses Other symptoms and signs involving the musculoskeletal system (03/19/21) Physical Therapy Treatment Note PT-OP-A Visit Information Start: 01/22/21 11:36 Freq: Status: Active Protocol: Document 03/19/21 08:11 HH (Rec: 03/19/21 09:02 [id number]) Out-Patient Physical Therapy Visit Information Visit Information Visit Type Progress Note Visit Note pt cancelled her last 2 appts d/t a recent fall Visit Start Time 08:16 Visit Stop Time 09:00 Total Visit Minutes 44 Visit Number 08/14 Number of STAFF NURSE ICU RESOURCE TEAM Visits 0 PT-OP-B Current Condition Start: 01/22/21 11:36 Freq: Status: Active Protocol: Document 01/22/21 11:40 HH (Rec: 01/22/21 12:12 [email or web address]) Current Condition History of Current Condition Onset Date many years ago Current Complaints R hip weakness, decreased balance, difficulty in walking History of Current Condition Serenity is a 75yo female referred by Dr. Wilson evaluate for pelvic muscle weakness. She has been walking with an abnormal gait for many years with unknown cause. She had MRI which showed atrophy and fatty replacement of the right gluteus medius muscle. She leans towards R side when she walks and tends to caught with her L foot sometimes. Pt had 6 falls in last year and unable to walk for long distance d/t poor balance and fall risks. Pt does not have any recent back pain but had sciatica in the past but does not recall which leg. She denies any tingling and numbness and noticeable pain at this point. No sensation loss noted from Dr. Dallas note. Pt is very active and does her full body workout program 5x/ week. Prior Treatments and Tests EMG examination shows signficiant chronic denervation without active denervation restricted tot the R gluteus medius muscle. There is no evidence of myopathy in any of the muscle sampled. The decreased right peroneal motor amplitude is a nonspecific finding in isolation, but given the normal superficial peroneal sensory response, could indicate a chronic L5/S1 radiculopathy. MRI which showed atrophy and fatty replacement of the right gluteus medius muscle Treatment Goals Patient/Caregiver Goals 1. To normalize her gait pattern 2. to be able to walk a mile Personal Factors Other Personal Factors That May Effect 6 falls in last year. 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 Im slowly recovering. Patient Questionnaires Lower Extremity Functional Scale LEFS Score 48 LEFS Impairment 20 to 39% Impaired (Score 48- 62) PT-OP-D Balance Start: 01/22/21 11:36 Freq: Status: Active Protocol: Document 03/19/21 08:11 HH (Rec: 03/19/21 09:02 [id number]) Balance Tests Single Limb Standing Single Limb- Right 5,9 Single Limb- Left 16 x2 PT-OP-F Manual Assessment Start: 01/22/21 11:36 Freq: Status: Active Protocol: Document 01/22/21 11:40 HH (Rec: 01/22/21 12:12 HH [email or web address]) Manual Assessments Soft Tissue Assessment Soft Tissue Mobility Assessment hypertonicity noted at R SIJ, proximal gluteal max insertion reports of tingling sensation at lateral thigh with pressure at gluteus medius atrophy noted at R gluteal muscle group Joint Mobility Assessment Joint Mobility Assessment WFL PT-OP-G Mobility & Gait Start: 01/22/21 11:36 Freq: Status: Active Protocol: Document 01/22/21 11:40 HH (Rec: 01/22/21 12:12 [email or web address]) OP Gait Assessment Gait Deviations General Gait Pattern Decreased Stride Length, Decreased Feet Clearance, Lateral Trunk Lean Factors Limiting Gait Function Factors Limiting Gait Function Decreased Activity Tolerance, Decreased Strength,Poor Balance Comments Gait Comments +ve tredelenburg sign on R side during stance phase on REL. Mild knee valgus noted on R knee as well. PT-OP-H Neuro Start: 01/22/21 11:36 Freq: Status: Active Protocol: Document 01/22/21 11:40 HH (Rec: 01/22/21 12:12 [email or web address]) Sensation Evaluation Gross Sensation Gross Sensation WNL Deep Tendon Reflex & Clonus Assessment Deep Tendon Reflex Bilateral Achilles Deep Tendon Reflex 2+ Normal Bilateral Patellar Deep Tendon Reflex 2+ Normal PT-OP-J Posture/Palpation/Skin Start: 01/22/21 11:36 Freq: Status: Active Protocol: Document 01/22/21 11:40 HH (Rec: 01/22/21 12:12 [email or web address]) Posture Evaluation Position Standing Weight Distribution Weight Shifted Left,Decreased Wt.Bear on (R) PT-OP-K Range of Motion Start: 01/22/21 11:36 Freq: Status: Active Protocol: Document 01/22/21 11:40 HH (Rec: 01/22/21 12:12 [email or web address]) Hip Goniometric Range of Motion Hip Right Active Hip ROM WFL Yes Left Active Hip ROM WFL Yes Knee Goniometric Range of Motion Knee Right Knee ROM WFL Yes Left Knee ROM WFL Yes PT-OP-L Special Tests Start: 01/22/21 11:36 Freq: Status: Active Protocol: Document 01/22/21 11:40 HH (Rec: 01/22/21 12:12 [email or web address]) Special Tests Hip Special Tests Piriformis Test Results -ve Scour Test Test Results -ve FLACO Test Results -ve Trendelenberg Test Results +R Comments significant R lateral trunk lean and L hip drop during stance phase of RLE PT-OP-M Strength Start: 01/22/21 11:36 Freq: Status: Active Protocol: Document 03/19/21 08:11 HH (Rec: 03/19/21 09:02 [id number]) Hip Strength Hip Manual Muscle Testing Right Flexion (L2) 3+ Fair+ Extension (S1) 3+ Fair+ Abduction 2 Poor Adduction 4- Good- External Rotation 4 Good Internal Rotation 3+ Fair+ Left Flexion (L2) 4+ Good+ Extension (S1) 4+ Good+ Abduction 4+ Good+ Adduction 4+ Good+ External Rotation 4 Good Internal Rotation 4- Good- PT-OP-Q Treatments Start: 01/22/21 11:36 Freq: Status: Active Protocol: Document 03/19/21 08:11 HH (Rec: 03/19/21 09:02 [id number]) Gym Equipment Shuttle Recovery SL squat Details good effort, cued knee alignment glut/quad facilitation Resistance 50# Shuttle Recovery Platform Stable Reps/Time 2x15 Therapeutic Exercises Supine Exercises bridge Side bilateral Resistance #2 Tb loop Reps/Minutes 3x10 Sidelying Exercises hip abd Sidelying Exercise Name w/ ER and DF lift Side bilateral Reps/Minutes 2 x5 2 sec hold Comments cued slight alignment corrections for hip abd focus Sitting Exercises trunk rotation Side bilateral Reps/Minutes 5 x2 trunk lateral flexion Sitting Exercise Name To R for stretching Reps/Minutes 8 x2 Standing Exercises step up Equipment Used 6step on L, 4 on R Reps/Minutes 8 x2 PT-OP-T Assessment and Plan Start: 01/22/21 11:36 Freq: Status: Active Protocol: Document 03/19/21 08:11 (Rec: 03/19/21 09:02 [id number]) Physical Therapy Assessment Goals balance Impairment pt does has have single leg balance on RLE Short Term Goal (STG) pt will improve her R single leg balance by 4 seconds to improve her gait stability. 03/19 met pt able to stand on RLE 5-9 seconds with R lateral trunk lean 03/19 STG Duration 5 weeks Longterm Goal (LTG) pt will improve her R single leg balance by 8 seconds to improve her gait stability. LTG Duration 10 weeks activity tolerance Impairment pt cannot walk for long distance Short Term Goal (STG) pt will be able to complete a 0.5 walk 3 times a week without increase in discomfort . 03/19 pt started to workout with her workplace trainer and assessor for a week but she just fell recnetly so she stopped her ex routine. 03/19 STG Duration 5 weeks Der[employer] Boat Captain Goal (LTG) pt will be able to complete a mile walk 3 times a week without increase in discomfort . LTG Duration 10 weeks strength Impairment pt has 2/5 muscle strength at R hip abduction Short Term Goal (STG) Pt will gain 1 MMT grade on her R hip abduction to improve her gait mechanics. 03/19 STG Duration 5 weeks Longterm Goal (LTG) Pt will gain 2 MMT grade on her R hip abduction to improve her trendelenburg sign during gait. LTG Duration 10 weeks LEFS Impairment pt scores 56 on LEFS Short Term Goal (STG) 03/19 pt scores 48 after her fall 1.5 weeks ago.. Derrick Boat Captain Goal (LTG) pt will score 65 on LEFS to improve her overall and mobility and strength. LTG Duration 10 weeks Assessment Summary Assessment Pt had a fall on her L midback last week. She is recovering slowly d/t pain . Pt does not appear to have any fx at her ribcage but stiffness and slight pain to pressure. She felt better after stretching today. Pt did show improved single leg strength and balance than IE. Upcoming POC will focus more on gait training with heel toe pattern . Pt will continue benefit from skilled therapy to strength her hip stabilizers , gait stability and gait pattern in order to prevent fall risks. Physical Therapy Plan Frequency and Duration Frequency of Treatment 2x/Week Duration of Treatment 10 weeks Plan of Care Start Date 01/22/21 Plan of Care End Date 04/07/21 Therapeutic Interventions Therapeutic Interventions Aquatic Therapy,Balance Training,Gait Training,Home Exercise Program,Joint Mobilizations,Manual Therapy, Neuromuscular Re-education, Patient/Caregiver Education, Self-Care/Home Management, Sensory Integration,Soft Tissue Mobilization,Taping, Therapeutic Activities, Therapeutic Exercises Modalities Cold Pack/Ice Massage,Electric Stimulation,Hot Packs, Infrared Therapy,Ultrasound Next Visit Focus/Plan Next Note Type Progress Note Next Visit Plan Assess response to HEP review side hip abd, standing abd and stand step over back instead side stepping at rail. next tx review prond hip ext. Continue per PT POC: STM at R SIJ, gluteal insertion clam shell supine hip ER bridging hold Continue improved hip abd and glut fac to allow level pelvis and aligned knees during gait.
--- NOTE | 2021-03-22 13:54 | PT.OTN ---
Current Diagnoses Other symptoms and signs involving the musculoskeletal system (03/22/21) Physical Therapy Treatment Note PT-OP-A Visit Information Start: 01/22/21 11:36 Freq: Status: Active Protocol: Document 03/22/21 13:01 HH (Rec: 03/22/21 13:53 [id number]) Out-Patient Physical Therapy Visit Information Visit Information Visit Type Treatment Note Visit Start Time 13:05 Visit Stop Time 13:45 Total Visit Minutes 40 Visit Number 09/14 Number of FOUNTAIN SERVER Visits 0 PT-OP-B Current Condition Start: 01/22/21 11:36 Freq: Status: Active Protocol: Document 01/22/21 11:40 HH (Rec: 01/22/21 12:12 [email or web address]) Current Condition History of Current Condition Onset Date many years ago Current Complaints R hip weakness, decreased balance, difficulty in walking History of Current Condition Serenity is a 75yo female referred by Dr. Wilson evaluate for pelvic muscle weakness. She has been walking with an abnormal gait for many years with unknown cause. She had MRI which showed atrophy and fatty replacement of the right gluteus medius muscle. She leans towards R side when she walks and tends to caught with her L foot sometimes. Pt had 6 falls in last year and unable to walk for long distance d/t poor balance and fall risks. Pt does not have any recent back pain but had sciatica in the past but does not recall which leg. She denies any tingling and numbness and noticeable pain at this point. No sensation loss noted from Dr. Dallas note. Pt is very active and does her full body workout program 5x/ week. Prior Treatments and Tests EMG examination shows signficiant chronic denervation without active denervation restricted tot the R gluteus medius muscle. There is no evidence of myopathy in any of the muscle sampled. The decreased right peroneal motor amplitude is a nonspecific finding in isolation, but given the normal superficial peroneal sensory response, could indicate a chronic L5/S1 radiculopathy. MRI which showed atrophy and fatty replacement of the right gluteus medius muscle Treatment Goals Patient/Caregiver Goals 1. To normalize her gait pattern 2. to be able to walk a mile Personal Factors Other Personal Factors That May Effect 6 falls in last year. 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 My legs felt good after we did the exercises PT-OP-D Balance Start: 01/22/21 11:36 Freq: Status: Active Protocol: Document 03/19/21 08:11 HH (Rec: 03/19/21 09:02 HH [id number]) Balance Tests Single Limb Standing Single Limb- Right 5,9 Single Limb- Left 16 x2 PT-OP-F Manual Assessment Start: 01/22/21 11:36 Freq: Status: Active Protocol: Document 01/22/21 11:40 HH (Rec: 01/22/21 12:12 HH [email or web address]) Manual Assessments Soft Tissue Assessment Soft Tissue Mobility Assessment hypertonicity noted at R SIJ, proximal gluteal max insertion reports of tingling sensation at lateral thigh with pressure at gluteus medius atrophy noted at R gluteal muscle group Joint Mobility Assessment Joint Mobility Assessment WFL PT-OP-G Mobility & Gait Start: 01/22/21 11:36 Freq: Status: Active Protocol: Document 01/22/21 11:40 HH (Rec: 01/22/21 12:12 HH [email or web address]) OP Gait Assessment Gait Deviations General Gait Pattern Decreased Stride Length, Decreased Feet Clearance, Lateral Trunk Lean Factors Limiting Gait Function Factors Limiting Gait Function Decreased Activity Tolerance, Decreased Strength,Poor Balance Comments Gait Comments +ve tredelenburg sign on R side during stance phase on REL. Mild knee valgus noted on R knee as well. PT-OP-H Neuro Start: 01/22/21 11:36 Freq: Status: Active Protocol: Document 01/22/21 11:40 HH (Rec: 01/22/21 12:12 HH [email or web address]) Sensation Evaluation Gross Sensation Gross Sensation WNL Deep Tendon Reflex & Clonus Assessment Deep Tendon Reflex Bilateral Achilles Deep Tendon Reflex 2+ Normal Bilateral Patellar Deep Tendon Reflex 2+ Normal PT-OP-J Posture/Palpation/Skin Start: 01/22/21 11:36 Freq: Status: Active Protocol: Document 01/22/21 11:40 HH (Rec: 01/22/21 12:12 HH [email or web address]) Posture Evaluation Position Standing Weight Distribution Weight Shifted Left,Decreased Wt.Bear on (R) PT-OP-K Range of Motion Start: 01/22/21 11:36 Freq: Status: Active Protocol: Document 01/22/21 11:40 HH (Rec: 01/22/21 12:12 [email or web address]) Hip Goniometric Range of Motion Hip Right Active Hip ROM WFL Yes Left Active Hip ROM WFL Yes Knee Goniometric Range of Motion Knee Right Knee ROM WFL Yes Left Knee ROM WFL Yes PT-OP-L Special Tests Start: 01/22/21 11:36 Freq: Status: Active Protocol: Document 01/22/21 11:40 HH (Rec: 01/22/21 12:12 [email or web address]) Special Tests Hip Special Tests Piriformis Test Results -ve Scour Test Test Results -ve FLACO Test Results -ve Trendelenberg Test Results +R Comments significant R lateral trunk lean and L hip drop during stance phase of RLE PT-OP-M Strength Start: 01/22/21 11:36 Freq: Status: Active Protocol: Document 03/19/21 08:11 HH (Rec: 03/19/21 09:02 [id number]) Hip Strength Hip Manual Muscle Testing Right Flexion (L2) 3+ Fair+ Extension (S1) 3+ Fair+ Abduction 2 Poor Adduction 4- Good- External Rotation 4 Good Internal Rotation 3+ Fair+ Left Flexion (L2) 4+ Good+ Extension (S1) 4+ Good+ Abduction 4+ Good+ Adduction 4+ Good+ External Rotation 4 Good Internal Rotation 4- Good- PT-OP-Q Treatments Start: 01/22/21 11:36 Freq: Status: Active Protocol: Document 03/22/21 13:01 (Rec: 03/22/21 13:53 [id number]) Gym Equipment Shuttle Recovery SL squat Details good effort, cued knee alignment glut/quad facilitation Resistance 50# Shuttle Recovery Platform Stable Reps/Time 2x15 Therapeutic Exercises Supine Exercises bridge Side bilateral Resistance #2 Tb loop Reps/Minutes 2x10 Standing Exercises marching in place Side bilateral Equipment Used //bar Reps/Minutes 10 ft x4 TKE Side right Equipment Used level 2 band Reps/Minutes 10 x2 Comments for HEP hip ext Side bilateral Resistance AROM Equipment Used at rail Reps/Minutes 10 x 2 Comments tactile cue on RKE step up Equipment Used 6step on L, 4 on R Reps/Minutes 8 x2 standing hip abd Standing Exercise Name hep review Side bilateral Resistance AROM Equipment Used at rail Reps/Minutes x10 reps no contact L SLS, x6- 8 R SLS mod UE support Comments tactile cue on RTKE Gait Training Gait Activity heel toe Device Used //bar Surface ground level Distance/Duration 20 ft x 8 Manual Therapy Treatment Soft Tissue Mobilization ribcage Body Location T10 Mobilization Type Myofascial Release Intensity/Depth Superficial Body Position Sidelying Comments significant tenderness to light pressure along 10th rib glutes Mobilization Type Sustained Pressure,Trigger Point Release Intensity/Depth Moderate Body Position Sidelying Comments hypertoncity noted today PT-OP-T Assessment and Plan Start: 01/22/21 11:36 Freq: Status: Active Protocol: Document 03/22/21 13:01 (Rec: 03/22/21 13:53 [id number]) Physical Therapy Assessment Goals balance Impairment pt does has have single leg balance on RLE Short Term Goal (STG) pt will improve her R single leg balance by 4 seconds to improve her gait stability. 03/19 met pt able to stand on RLE 5-9 seconds with R lateral trunk lean 03/19 STG Duration 5 weeks Retirement Goal (LTG) pt will improve her R single leg balance by 8 seconds to improve her gait stability. LTG Duration 10 weeks activity tolerance Impairment pt cannot walk for long distance Short Term Goal (STG) pt will be able to complete a 0.5 walk 3 times a week without increase in discomfort . 03/19 pt started to workout with her sports trainer for a week but she just fell recnetly so she stopped her ex routine. 03/19 STG Duration 5 weeks Retirement Goal (LTG) pt will be able to complete a mile walk 3 times a week without increase in discomfort . LTG Duration 10 weeks strength Impairment pt has 2/5 muscle strength at R hip abduction Short Term Goal (STG) Pt will gain 1 MMT grade on her R hip abduction to improve her gait mechanics. 03/19 STG Duration 5 weeks Retirement Goal (LTG) Pt will gain 2 MMT grade on her R hip abduction to improve her trendelenburg sign during gait. LTG Duration 10 weeks LEFS Impairment pt scores 56 on LEFS Short Term Goal (STG) 03/19 pt scores 48 after her fall 1.5 weeks ago.. Retirement Goal (LTG) pt will score 65 on LEFS to improve her overall and mobility and strength. LTG Duration 10 weeks Assessment Summary Assessment pt has increased pain at L rib cage (T10 region) today. Educated pt to do check up with x-ray if her pain persists and with difficulty in breathing to rule out possible fx. Added TKE today to facilitate quad activation during single leg stance. Physical Therapy Plan Frequency and Duration Frequency of Treatment 2x/Week Duration of Treatment 10 weeks Plan of Care Start Date 01/22/21 Plan of Care End Date 04/07/21 Therapeutic Interventions Therapeutic Interventions Aquatic Therapy,Balance Training,Gait Training,Home Exercise Program,Joint Mobilizations,Manual Therapy, Neuromuscular Re-education, Patient/Caregiver Education, Self-Care/Home Management, Sensory Integration,Soft Tissue Mobilization,Taping, Therapeutic Activities, Therapeutic Exercises Modalities Cold Pack/Ice Massage,Electric Stimulation,Hot Packs, Infrared Therapy,Ultrasound Next Visit Focus/Plan Next Note Type Progress Note Next Visit Plan Assess response to HEP review side hip abd, standing abd and stand step over back instead side stepping at rail. next tx review prond hip ext. Continue per PT POC: STM at R SIJ, gluteal insertion clam shell supine hip ER bridging hold Continue improved hip abd and glut fac to allow level pelvis and aligned knees during gait.
--- NOTE | 2021-03-27 12:00 | PT.OTN ---
Current Diagnoses Other symptoms and signs involving the musculoskeletal system (03/27/21) Physical Therapy Treatment Note PT-OP-A Visit Information Start: 01/22/21 11:36 Freq: Status: Active Protocol: Document 03/27/21 11:19 SP (Rec: 03/27/21 12:10 SP [id number]) Out-Patient Physical Therapy Visit Information Visit Information Visit Type Treatment Note Visit Start Time 11:19 Visit Stop Time 12:00 Total Visit Minutes 41 Visit Number 10/14 Number of FISHERIES OFFICER Visits 1 Evaluation Information Evaluation Date 01/22/21 Precautions Precautions 6 falls in last year. depression PT-OP-B Current Condition Start: 01/22/21 11:36 Freq: Status: Active Protocol: Document 01/22/21 11:40 HH (Rec: 01/22/21 12:12 HH [email or web address]) Current Condition History of Current Condition Onset Date many years ago Current Complaints R hip weakness, decreased balance, difficulty in walking History of Current Condition Serenity is a 75yo female referred by Dr. Wilson evaluate for pelvic muscle weakness. She has been walking with an abnormal gait for many years with unknown cause. She had MRI which showed atrophy and fatty replacement of the right gluteus medius muscle. She leans towards R side when she walks and tends to caught with her L foot sometimes. Pt had 6 falls in last year and unable to walk for long distance d/t poor balance and fall risks. Pt does not have any recent back pain but had sciatica in the past but does not recall which leg. She denies any tingling and numbness and noticeable pain at this point. No sensation loss noted from Dr. Dallas note. Pt is very active and does her full body workout program 5x/ week. Prior Treatments and Tests EMG examination shows signficiant chronic denervation without active denervation restricted tot the R gluteus medius muscle. There is no evidence of myopathy in any of the muscle sampled. The decreased right peroneal motor amplitude is a nonspecific finding in isolation, but given the normal superficial peroneal sensory response, could indicate a chronic L5/S1 radiculopathy. MRI which showed atrophy and fatty replacement of the right gluteus medius muscle Treatment Goals Patient/Caregiver Goals 1. To normalize her gait pattern 2. to be able to walk a mile Personal Factors Other Personal Factors That May Effect 6 falls in last year. 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) PT-OP-C Subjective Start: 01/22/21 11:36 Freq: Status: Active Protocol: Document 03/27/21 11:19 SP (Rec: 03/27/21 12:10 SP [id number]) OP-PT Subjective Patient Comments Patient Comments Pt stated PT-OP-D Balance Start: 01/22/21 11:36 Freq: Status: Active Protocol: Document 03/19/21 08:11 HH (Rec: 03/19/21 09:02 HH [id number]) Balance Tests Single Limb Standing Single Limb- Right 5,9 Single Limb- Left 16 x2 PT-OP-F Manual Assessment Start: 01/22/21 11:36 Freq: Status: Active Protocol: Document 01/22/21 11:40 HH (Rec: 01/22/21 12:12 HH [email or web address]) Manual Assessments Soft Tissue Assessment Soft Tissue Mobility Assessment hypertonicity noted at R SIJ, proximal gluteal max insertion reports of tingling sensation at lateral thigh with pressure at gluteus medius atrophy noted at R gluteal muscle group Joint Mobility Assessment Joint Mobility Assessment WFL PT-OP-G Mobility & Gait Start: 01/22/21 11:36 Freq: Status: Active Protocol: Document 01/22/21 11:40 HH (Rec: 01/22/21 12:12 HH [email or web address]) OP Gait Assessment Gait Deviations General Gait Pattern Decreased Stride Length, Decreased Feet Clearance, Lateral Trunk Lean Factors Limiting Gait Function Factors Limiting Gait Function Decreased Activity Tolerance, Decreased Strength,Poor Balance Comments Gait Comments +ve tredelenburg sign on R side during stance phase on REL. Mild knee valgus noted on R knee as well. PT-OP-H Neuro Start: 01/22/21 11:36 Freq: Status: Active Protocol: Document 01/22/21 11:40 HH (Rec: 01/22/21 12:12 HH [email or web address]) Sensation Evaluation Gross Sensation Gross Sensation WNL Deep Tendon Reflex & Clonus Assessment Deep Tendon Reflex Bilateral Achilles Deep Tendon Reflex 2+ Normal Bilateral Patellar Deep Tendon Reflex 2+ Normal PT-OP-J Posture/Palpation/Skin Start: 01/22/21 11:36 Freq: Status: Active Protocol: Document 01/22/21 11:40 HH (Rec: 01/22/21 12:12 HH [email or web address]) Posture Evaluation Position Standing Weight Distribution Weight Shifted Left,Decreased Wt.Bear on (R) PT-OP-K Range of Motion Start: 01/22/21 11:36 Freq: Status: Active Protocol: Document 01/22/21 11:40 HH (Rec: 01/22/21 12:12 [email or web address]) Hip Goniometric Range of Motion Hip Right Active Hip ROM WFL Yes Left Active Hip ROM WFL Yes Knee Goniometric Range of Motion Knee Right Knee ROM WFL Yes Left Knee ROM WFL Yes PT-OP-L Special Tests Start: 01/22/21 11:36 Freq: Status: Active Protocol: Document 01/22/21 11:40 HH (Rec: 01/22/21 12:12 [email or web address]) Special Tests Hip Special Tests Piriformis Test Results -ve Scour Test Test Results -ve FLACO Test Results -ve Trendelenberg Test Results +R Comments significant R lateral trunk lean and L hip drop during stance phase of RLE PT-OP-M Strength Start: 01/22/21 11:36 Freq: Status: Active Protocol: Document 03/19/21 08:11 HH (Rec: 03/19/21 09:02 [id number]) Hip Strength Hip Manual Muscle Testing Right Flexion (L2) 3+ Fair+ Extension (S1) 3+ Fair+ Abduction 2 Poor Adduction 4- Good- External Rotation 4 Good Internal Rotation 3+ Fair+ Left Flexion (L2) 4+ Good+ Extension (S1) 4+ Good+ Abduction 4+ Good+ Adduction 4+ Good+ External Rotation 4 Good Internal Rotation 4- Good- PT-OP-Q Treatments Start: 01/22/21 11:36 Freq: Status: Active Protocol: Document 03/27/21 11:19 SP (Rec: 03/27/21 12:10 SP [id number]) Therapeutic Exercises Supine Exercises supine clamshell Supine Exercise Name provided #2 loop band for HEP Side bilateral Resistance #2 TB Reps/Minutes x10 Comments good slow pacing control Sidelying Exercises clamshell Side bilateral Reps/Minutes 10 #2 TB B, x5 GTB B, provided #3Tb for HEP Comments good pacing control Sitting Exercises open book Sitting Exercise Name head w/ arm Side bilateral Reps/Minutes x8 each direction Standing Exercises SLS Standing Exercise Name SLS L w /RLE step tap cone, SLS R w/LLE slider f/b Side bilateral Resistance added to HEP (wash cloth for HEP slider substitute) Reps/Minutes 3x5 reps during L SLS, 3x3 reps R SLS R TKE Side right Equipment Used level 2> 3 TB ( provided for HEP) Reps/Minutes 10 x2 Comments for HEP hip ext Side bilateral Resistance AROM Equipment Used at rail, light contact during LLE ext Reps/Minutes 10 x 2 Comments cue on R TKE PT-OP-T Assessment and Plan Start: 01/22/21 11:36 Freq: Status: Active Protocol: Document 03/27/21 11:19 SP (Rec: 03/27/21 12:10 SP [id number]) Physical Therapy Assessment Goals balance Impairment pt does has have single leg balance on RLE Short Term Goal (STG) pt will improve her R single leg balance by 4 seconds to improve her gait stability. 03/19 met pt able to stand on RLE 5-9 seconds with R lateral trunk lean 03/19 STG Duration 5 weeks Flag Decorator Goal (LTG) pt will improve her R single leg balance by 8 seconds to improve her gait stability. LTG Duration 10 weeks activity tolerance Impairment pt cannot walk for long distance Short Term Goal (STG) pt will be able to complete a 0.5 walk 3 times a week without increase in discomfort . 03/19 pt started to workout with her dog handler or trainer for a week but she just fell recnetly so she stopped her ex routine. 03/19 STG Duration 5 weeks Flag Decorator Goal (LTG) pt will be able to complete a mile walk 3 times a week without increase in discomfort . LTG Duration 10 weeks strength Impairment pt has 2/5 muscle strength at R hip abduction Short Term Goal (STG) Pt will gain 1 MMT grade on her R hip abduction to improve her gait mechanics. 03/19 STG Duration 5 weeks Fpc Goal (LTG) Pt will gain 2 MMT grade on her R hip abduction to improve her trendelenburg sign during gait. LTG Duration 10 weeks LEFS Impairment pt scores 56 on LEFS Short Term Goal (STG) 03/19 pt scores 48 after her fall 1.5 weeks ago.. Flag Decorator Goal (LTG) pt will score 65 on LEFS to improve her overall and mobility and strength. LTG Duration 10 weeks Assessment Summary Assessment Pt responded well to HEP review stand hip ext side clamshell Tb, difficulty standing marching so modified to cone taps RLE, slider forward slide LLE with improved quad and glut facilitations with good muscle work response. Pt stated her mid back discomfort during SLS activity but improved with added open book ther ex. Physical Therapy Plan Frequency and Duration Frequency of Treatment 2x/Week Duration of Treatment 10 weeks Plan of Care Start Date 01/22/21 Plan of Care End Date 04/07/21 Therapeutic Interventions Therapeutic Interventions Aquatic Therapy,Balance Training,Gait Training,Home Exercise Program,Joint Mobilizations,Manual Therapy, Neuromuscular Re-education, Patient/Caregiver Education, Self-Care/Home Management, Sensory Integration,Soft Tissue Mobilization,Taping, Therapeutic Activities, Therapeutic Exercises Modalities Cold Pack/Ice Massage,Electric Stimulation,Hot Packs, Infrared Therapy,Ultrasound Next Visit Focus/Plan Next Note Type Progress Note Next Visit Plan Assess response to HEP review hip ext, SLS activities, increase TKE #3 TB, clamshell, added open book for TS rotation. Next tx review prone hip ext. Continue per PT POC: STM at R SIJ, gluteal insertion clam shell supine hip ER bridging hold Continue improved hip abd and glut fac to allow level pelvis and aligned knees during gait.
--- NOTE | 2021-03-30 16:07 | PT.OTN ---
Current Diagnoses Other symptoms and signs involving the musculoskeletal system (03/30/21) Physical Therapy Treatment Note PT-OP-A Visit Information Start: 01/22/21 11:36 Freq: Status: Active Protocol: Document 03/30/21 15:11 HH (Rec: 03/30/21 16:07 [id number]) Out-Patient Physical Therapy Visit Information Visit Information Visit Type Treatment Note Visit Start Time 15:18 Visit Stop Time 16:00 Total Visit Minutes 42 Visit Number 13/ Number of MOTHER SUPERIOR Visits 0 PT-OP-B Current Condition Start: 01/22/21 11:36 Freq: Status: Active Protocol: Document 01/22/21 11:40 HH (Rec: 01/22/21 12:12 HH [email or web address]) Current Condition History of Current Condition Onset Date many years ago Current Complaints R hip weakness, decreased balance, difficulty in walking History of Current Condition Serenity is a 75yo female referred by Dr. Wilson evaluate for pelvic muscle weakness. She has been walking with an abnormal gait for many years with unknown cause. She had MRI which showed atrophy and fatty replacement of the right gluteus medius muscle. She leans towards R side when she walks and tends to caught with her L foot sometimes. Pt had 6 falls in last year and unable to walk for long distance d/t poor balance and fall risks. Pt does not have any recent back pain but had sciatica in the past but does not recall which leg. She denies any tingling and numbness and noticeable pain at this point. No sensation loss noted from Dr. Dallas note. Pt is very active and does her full body workout program 5x/ week. Prior Treatments and Tests EMG examination shows signficiant chronic denervation without active denervation restricted tot the R gluteus medius muscle. There is no evidence of myopathy in any of the muscle sampled. The decreased right peroneal motor amplitude is a nonspecific finding in isolation, but given the normal superficial peroneal sensory response, could indicate a chronic L5/S1 radiculopathy. MRI which showed atrophy and fatty replacement of the right gluteus medius muscle Treatment Goals Patient/Caregiver Goals 1. To normalize her gait pattern 2. to be able to walk a mile Personal Factors Other Personal Factors That May Effect 6 falls in last year. 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 PT-OP-D Balance Start: 01/22/21 11:36 Freq: Status: Active Protocol: Document 03/19/21 08:11 HH (Rec: 03/19/21 09:02 HH [id number]) Balance Tests Single Limb Standing Single Limb- Right 5,9 Single Limb- Left 16 x2 PT-OP-F Manual Assessment Start: 01/22/21 11:36 Freq: Status: Active Protocol: Document 01/22/21 11:40 HH (Rec: 01/22/21 12:12 HH [email or web address]) Manual Assessments Soft Tissue Assessment Soft Tissue Mobility Assessment hypertonicity noted at R SIJ, proximal gluteal max insertion reports of tingling sensation at lateral thigh with pressure at gluteus medius atrophy noted at R gluteal muscle group Joint Mobility Assessment Joint Mobility Assessment WFL PT-OP-G Mobility & Gait Start: 01/22/21 11:36 Freq: Status: Active Protocol: Document 01/22/21 11:40 HH (Rec: 01/22/21 12:12 HH [email or web address]) OP Gait Assessment Gait Deviations General Gait Pattern Decreased Stride Length, Decreased Feet Clearance, Lateral Trunk Lean Factors Limiting Gait Function Factors Limiting Gait Function Decreased Activity Tolerance, Decreased Strength,Poor Balance Comments Gait Comments +ve tredelenburg sign on R side during stance phase on REL. Mild knee valgus noted on R knee as well. PT-OP-H Neuro Start: 01/22/21 11:36 Freq: Status: Active Protocol: Document 01/22/21 11:40 HH (Rec: 01/22/21 12:12 HH [email or web address]) Sensation Evaluation Gross Sensation Gross Sensation WNL Deep Tendon Reflex & Clonus Assessment Deep Tendon Reflex Bilateral Achilles Deep Tendon Reflex 2+ Normal Bilateral Patellar Deep Tendon Reflex 2+ Normal PT-OP-J Posture/Palpation/Skin Start: 01/22/21 11:36 Freq: Status: Active Protocol: Document 01/22/21 11:40 HH (Rec: 01/22/21 12:12 HH [email or web address]) Posture Evaluation Position Standing Weight Distribution Weight Shifted Left,Decreased Wt.Bear on (R) PT-OP-K Range of Motion Start: 01/22/21 11:36 Freq: Status: Active Protocol: Document 01/22/21 11:40 HH (Rec: 01/22/21 12:12 [email or web address]) Hip Goniometric Range of Motion Hip Right Active Hip ROM WFL Yes Left Active Hip ROM WFL Yes Knee Goniometric Range of Motion Knee Right Knee ROM WFL Yes Left Knee ROM WFL Yes PT-OP-L Special Tests Start: 01/22/21 11:36 Freq: Status: Active Protocol: Document 01/22/21 11:40 HH (Rec: 01/22/21 12:12 [email or web address]) Special Tests Hip Special Tests Piriformis Test Results -ve Scour Test Test Results -ve FLACO Test Results -ve Trendelenberg Test Results +R Comments significant R lateral trunk lean and L hip drop during stance phase of RLE PT-OP-M Strength Start: 01/22/21 11:36 Freq: Status: Active Protocol: Document 03/19/21 08:11 HH (Rec: 03/19/21 09:02 [id number]) Hip Strength Hip Manual Muscle Testing Right Flexion (L2) 3+ Fair+ Extension (S1) 3+ Fair+ Abduction 2 Poor Adduction 4- Good- External Rotation 4 Good Internal Rotation 3+ Fair+ Left Flexion (L2) 4+ Good+ Extension (S1) 4+ Good+ Abduction 4+ Good+ Adduction 4+ Good+ External Rotation 4 Good Internal Rotation 4- Good- PT-OP-Q Treatments Start: 01/22/21 11:36 Freq: Status: Active Protocol: Document 03/30/21 15:11 HH (Rec: 03/30/21 16:07 [id number]) Gym Equipment Shuttle Recovery SL squat Details good effort, cued knee alignment glut/quad facilitation Resistance 50# Shuttle Recovery Platform Stable Reps/Time 2x15 Therapeutic Exercises Supine Exercises supine hip abduction Supine Exercise Name regular stance and NBOS Side bilateral Reps/Minutes 8 mins bridge Side bilateral Resistance #3 Tb loop Reps/Minutes 2x10 supine clamshell Supine Exercise Name provided #3 loop band for HEP Side bilateral Resistance #3 TB Reps/Minutes x10 Comments good slow pacing control Standing Exercises marching in place Standing Exercise Name in place Side bilateral Equipment Used //bar Comments cues with R knee extension TKE Side right Equipment Used level 2> 3 TB ( provided for HEP) Reps/Minutes 10 x2 Comments for HEP Manual Therapy Treatment Soft Tissue Mobilization glutes Mobilization Type Sustained Pressure,Trigger Point Release Intensity/Depth Moderate Body Position Sidelying Comments minimal discomfort at glute med PT-OP-T Assessment and Plan Start: 01/22/21 11:36 Freq: Status: Active Protocol: Document 03/30/21 15:11 (Rec: 03/30/21 16:07 [id number]) Physical Therapy Assessment Goals balance Impairment pt does has have single leg balance on RLE Short Term Goal (STG) pt will improve her R single leg balance by 4 seconds to improve her gait stability. 03/19 met pt able to stand on RLE 5-9 seconds with R lateral trunk lean 03/19 STG Duration 5 weeks [employer] Engineer Goal (LTG) pt will improve her R single leg balance by 8 seconds to improve her gait stability. LTG Duration 10 weeks activity tolerance Impairment pt cannot walk for long distance Short Term Goal (STG) pt will be able to complete a 0.5 walk 3 times a week without increase in discomfort . 03/19 pt started to workout with her sharepoint trainer for a week but she just fell recnetly so she stopped her ex routine. 03/19 STG Duration 5 weeks [employer] Engineer Goal (LTG) pt will be able to complete a mile walk 3 times a week without increase in discomfort . LTG Duration 10 weeks strength Impairment pt has 2/5 muscle strength at R hip abduction Short Term Goal (STG) Pt will gain 1 MMT grade on her R hip abduction to improve her gait mechanics. 03/19 STG Duration 5 weeks Longterm Goal (LTG) Pt will gain 2 MMT grade on her R hip abduction to improve her trendelenburg sign during gait. LTG Duration 10 weeks LEFS Impairment pt scores 56 on LEFS Short Term Goal (STG) 03/19 pt scores 48 after her fall 1.5 weeks ago.. [employer] Engineer Goal (LTG) pt will score 65 on LEFS to improve her overall and mobility and strength. LTG Duration 10 weeks Assessment Summary Assessment pt is doing well with good understanding on RTKE. Will continue to work on SL balance and strengthening Physical Therapy Plan Frequency and Duration Frequency of Treatment 2x/Week Duration of Treatment 10 weeks Plan of Care Start Date 01/22/21 Plan of Care End Date 04/07/21 Therapeutic Interventions Therapeutic Interventions Aquatic Therapy,Balance Training,Gait Training,Home Exercise Program,Joint Mobilizations,Manual Therapy, Neuromuscular Re-education, Patient/Caregiver Education, Self-Care/Home Management, Sensory Integration,Soft Tissue Mobilization,Taping, Therapeutic Activities, Therapeutic Exercises Modalities Cold Pack/Ice Massage,Electric Stimulation,Hot Packs, Infrared Therapy,Ultrasound Next Visit Focus/Plan Next Note Type Progress Note Next Visit Plan Assess response to HEP review hip ext, SLS activities, increase TKE #3 onesimo CONNELL, added open book for TS rotation. Next tx review prone hip ext. Continue per PT POC: STM at R SIJ, gluteal insertion clam shell supine hip ER bridging hold Continue improved hip abd and glut fac to allow level pelvis and aligned knees during gait.
--- NOTE | 2021-04-03 14:35 | PT.OTN ---
Current Diagnoses Other symptoms and signs involving the musculoskeletal system (04/03/21) Physical Therapy Treatment Note PT-OP-A Visit Information Start: 01/22/21 11:36 Freq: Status: Active Protocol: Document 04/03/21 14:03 SP (Rec: 04/03/21 15:54 SP [id number]) Out-Patient Physical Therapy Visit Information Visit Information Visit Type Treatment Note Visit Note pt 14 min late for appt Visit Start Time 14:03 Visit Stop Time 14:35 Total Visit Minutes 32 Visit Number Number of VITICULTURE TEACHER Visits 1 Evaluation Information Evaluation Date 01/22/21 Precautions Precautions 6 falls in last year. depression PT-OP-B Current Condition Start: 01/22/21 11:36 Freq: Status: Active Protocol: Document 01/22/21 11:40 HH (Rec: 01/22/21 12:12 HH [email or web address]) Current Condition History of Current Condition Onset Date many years ago Current Complaints R hip weakness, decreased balance, difficulty in walking History of Current Condition Serenity is a 75yo female referred by Dr. Wilson evaluate for pelvic muscle weakness. She has been walking with an abnormal gait for many years with unknown cause. She had MRI which showed atrophy and fatty replacement of the right gluteus medius muscle. She leans towards R side when she walks and tends to caught with her L foot sometimes. Pt had 6 falls in last year and unable to walk for long distance d/t poor balance and fall risks. Pt does not have any recent back pain but had sciatica in the past but does not recall which leg. She denies any tingling and numbness and noticeable pain at this point. No sensation loss noted from Dr. Dallas note. Pt is very active and does her full body workout program 5x/ week. Prior Treatments and Tests EMG examination shows signficiant chronic denervation without active denervation restricted tot the R gluteus medius muscle. There is no evidence of myopathy in any of the muscle sampled. The decreased right peroneal motor amplitude is a nonspecific finding in isolation, but given the normal superficial peroneal sensory response, could indicate a chronic L5/S1 radiculopathy. MRI which showed atrophy and fatty replacement of the right gluteus medius muscle Treatment Goals Patient/Caregiver Goals 1. To normalize her gait pattern 2. to be able to walk a mile Personal Factors Other Personal Factors That May Effect 6 falls in last year. 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) PT-OP-C Subjective Start: 01/22/21 11:36 Freq: Status: Active Protocol: Document 04/03/21 14:03 SP (Rec: 04/03/21 15:54 SP [id number]) OP-PT Subjective Patient Comments Patient Comments Pt stated sees her diabetes trainer at [employer], wants to show an exercise started hip flexion single leg march against resistance similar to PT-OP-D Balance Start: 01/22/21 11:36 Freq: Status: Active Protocol: Document 03/19/21 08:11 HH (Rec: 03/19/21 09:02 HH [id number]) Balance Tests Single Limb Standing Single Limb- Right 5,9 Single Limb- Left 16 x2 PT-OP-F Manual Assessment Start: 01/22/21 11:36 Freq: Status: Active Protocol: Document 01/22/21 11:40 HH (Rec: 01/22/21 12:12 HH [email or web address]) Manual Assessments Soft Tissue Assessment Soft Tissue Mobility Assessment hypertonicity noted at R SIJ, proximal gluteal max insertion reports of tingling sensation at lateral thigh with pressure at gluteus medius atrophy noted at R gluteal muscle group Joint Mobility Assessment Joint Mobility Assessment WFL PT-OP-G Mobility & Gait Start: 01/22/21 11:36 Freq: Status: Active Protocol: Document 01/22/21 11:40 HH (Rec: 01/22/21 12:12 HH [email or web address]) OP Gait Assessment Gait Deviations General Gait Pattern Decreased Stride Length, Decreased Feet Clearance, Lateral Trunk Lean Factors Limiting Gait Function Factors Limiting Gait Function Decreased Activity Tolerance, Decreased Strength,Poor Balance Comments Gait Comments +ve tredelenburg sign on R side during stance phase on REL. Mild knee valgus noted on R knee as well. PT-OP-H Neuro Start: 01/22/21 11:36 Freq: Status: Active Protocol: Document 01/22/21 11:40 HH (Rec: 01/22/21 12:12 HH [email or web address]) Sensation Evaluation Gross Sensation Gross Sensation WNL Deep Tendon Reflex & Clonus Assessment Deep Tendon Reflex Bilateral Achilles Deep Tendon Reflex 2+ Normal Bilateral Patellar Deep Tendon Reflex 2+ Normal PT-OP-J Posture/Palpation/Skin Start: 01/22/21 11:36 Freq: Status: Active Protocol: Document 01/22/21 11:40 HH (Rec: 01/22/21 12:12 HH [email or web address]) Posture Evaluation Position Standing Weight Distribution Weight Shifted Left,Decreased Wt.Bear on (R) PT-OP-K Range of Motion Start: 01/22/21 11:36 Freq: Status: Active Protocol: Document 01/22/21 11:40 HH (Rec: 01/22/21 12:12 HH [email or web address]) Hip Goniometric Range of Motion Hip Right Active Hip ROM WFL Yes Left Active Hip ROM WFL Yes Knee Goniometric Range of Motion Knee Right Knee ROM WFL Yes Left Knee ROM WFL Yes PT-OP-L Special Tests Start: 01/22/21 11:36 Freq: Status: Active Protocol: Document 01/22/21 11:40 HH (Rec: 01/22/21 12:12 HH [email or web address]) Special Tests Hip Special Tests Piriformis Test Results -ve Scour Test Test Results -ve FLACO Test Results -ve Trendelenberg Test Results +R Comments significant R lateral trunk lean and L hip drop during stance phase of RLE PT-OP-M Strength Start: 01/22/21 11:36 Freq: Status: Active Protocol: Document 03/19/21 08:11 HH (Rec: 03/19/21 09:02 HH [id number]) Hip Strength Hip Manual Muscle Testing Right Flexion (L2) 3+ Fair+ Extension (S1) 3+ Fair+ Abduction 2 Poor Adduction 4- Good- External Rotation 4 Good Internal Rotation 3+ Fair+ Left Flexion (L2) 4+ Good+ Extension (S1) 4+ Good+ Abduction 4+ Good+ Adduction 4+ Good+ External Rotation 4 Good Internal Rotation 4- Good- PT-OP-Q Treatments Start: 01/22/21 11:36 Freq: Status: Active Protocol: Document 04/03/21 14:03 SP (Rec: 04/03/21 15:54 SP [id number]) Therapeutic Exercises Prone Exercises hip ext Prone Exercise Name reviewed HEP good form post cues Side bilateral Resistance AROM Reps/Minutes 2x10 Comments occasional cue for TA and stable pelvis on table, no adducation recruitment Sidelying Exercises open book Sidelying Exercise Name hep review Side bilateral Reps/Minutes x10 Comments cued rotation both directions each side hip abd Sidelying Exercise Name w/ ER and DF lift- HEP review Side bilateral Equipment Used pillow under RLE isometric> small lift, full ROM LLE Reps/Minutes 2 x5 1 sec hold R, x10 L Comments cued slight trunk side stacked alignment corrections for hip abd focus Standing Exercises SLS Standing Exercise Name SLS L w /RLE step tap cone, SLS R w/LLE slider f/b Side bilateral Resistance AROM (wash cloth for HEP slider substitute) Equipment Used contact table during RLE Stance, PRN contact LLE stance Reps/Minutes 3x5 reps during L SLS, 3x3 reps R SLS R TKE Standing Exercise Name HEP review Side right Equipment Used level 3 TB Reps/Minutes 10 x2 Comments good form PT-OP-T Assessment and Plan Start: 01/22/21 11:36 Freq: Status: Active Protocol: Document 04/03/21 14:03 SP (Rec: 04/03/21 15:54 SP [id number]) Physical Therapy Assessment Goals balance Impairment pt does has have single leg balance on RLE Short Term Goal (STG) pt will improve her R single leg balance by 4 seconds to improve her gait stability. 03/19 met pt able to stand on RLE 5-9 seconds with R lateral trunk lean 03/19 STG Duration 5 weeks Halfway Goal (LTG) pt will improve her R single leg balance by 8 seconds to improve her gait stability. LTG Duration 10 weeks activity tolerance Impairment pt cannot walk for long distance Short Term Goal (STG) pt will be able to complete a 0.5 walk 3 times a week without increase in discomfort . 03/19 pt started to workout with her diabetes trainer for a week but she just fell recnetly so she stopped her ex routine. 03/19 STG Duration 5 weeks Patrol Lady Goal (LTG) pt will be able to complete a mile walk 3 times a week without increase in discomfort . LTG Duration 10 weeks strength Impairment pt has 2/5 muscle strength at R hip abduction Short Term Goal (STG) Pt will gain 1 MMT grade on her R hip abduction to improve her gait mechanics. 03/19 STG Duration 5 weeks Halfway Goal (LTG) Pt will gain 2 MMT grade on her R hip abduction to improve her trendelenburg sign during gait. LTG Duration 10 weeks LEFS Impairment pt scores 56 on LEFS Short Term Goal (STG) 03/19 pt scores 48 after her fall 1.5 weeks ago.. Patrol Lady Goal (LTG) pt will score 65 on LEFS to improve her overall and mobility and strength. LTG Duration 10 weeks Assessment Summary Assessment Tx focused on HEP review prone sidelying, improvement in AROM L, isometric to slight lift hip abd RLE at mid range support w/ pillows good glut med engagement w/ good carryover to shuttle press and SLS cone tap/slider. Cued for slower movement and focus on proper form, quality up abd/ quad facilitation during tx and gait. Physical Therapy Plan Frequency and Duration Frequency of Treatment 2x/Week Duration of Treatment 10 weeks Plan of Care Start Date 01/22/21 Plan of Care End Date 04/07/21 Therapeutic Interventions Therapeutic Interventions Aquatic Therapy,Balance Training,Gait Training,Home Exercise Program,Joint Mobilizations,Manual Therapy, Neuromuscular Re-education, Patient/Caregiver Education, Self-Care/Home Management, Sensory Integration,Soft Tissue Mobilization,Taping, Therapeutic Activities, Therapeutic Exercises Modalities Cold Pack/Ice Massage,Electric Stimulation,Hot Packs, Infrared Therapy,Ultrasound Next Visit Focus/Plan Next Note Type Treatment Note Next Visit Plan Assess response to HEP review prone hip ext /side abd, SLS activities. Next tx gluteal insertion clam shell supine hip ER bridging hold Continue per PT POC: STM at R SIJ as needed, Continue improved hip abd and glut fac to allow level pelvis and aligned knees during gait.
--- NOTE | 2021-04-09 12:10 | PT.OPPOC ---
Physical, Occupational & Speech Therapy At [facility] Current Diagnoses Other symptoms and signs involving the musculoskeletal system (04/09/21) Visit Care Team Role Provider Type Joshua Chin MD Family Provider Physician Primary Care Provider Specialty: Internal Medicine Address: [address] [place] [address] [address], [place], [address] Email: [email or web address] Tavon Wilson MD Attending Provider Non-Staff Referring Provider Specialty: Psychiatry Address: [address] [place] [address], [address], [address] Email: Plan Of Care PT-OP-T Assessment and Plan Start: 01/22/21 11:36 Freq: Status: Active Protocol: Document 04/09/21 11:16 (Rec: 04/09/21 12:00 [id number]) Physical Therapy Assessment Goals falls Impairment pt has had 2 falls within 1 month Short Term Goal (STG) pt will show improved balance and gait mechanics (less toe drag) so she will not fall again for the next 2 months STG Duration 4 weeks balance Impairment pt does has have single leg balance on RLE Short Term Goal (STG) pt will improve her R single leg balance by 4 seconds to improve her gait stability. 03/19 met pt able to stand on RLE 5-9 seconds with R lateral trunk lean 03/19 STG Duration 5 weeks Prison Goal (LTG) 04/09 unable to assess d/t her recent fall pt will improve her R single leg balance by 8 seconds to improve her gait stability. LTG Duration 10 weeks activity tolerance Impairment pt cannot walk for long distance Short Term Goal (STG) pt will be able to complete a 0.5 walk 3 times a week without increase in discomfort . 03/19 pt started to workout with her hearing dog trainer for a week but she just fell recnetly so she stopped her ex routine. 03/19 STG Duration 5 weeks Acid Retort Operator Goal (LTG) pt will be able to complete a mile walk 3 times a week without increase in discomfort . LTG Duration 10 weeks strength Impairment pt has 2/5 muscle strength at R hip abduction Short Term Goal (STG) Pt will gain 1 MMT grade on her R hip abduction to improve her gait mechanics. 04/09 pt able to complete 10 times clamshell x2 sets iso 2 second hold for SL hip abduction STG Duration 5 weeks Prison Goal (LTG) Pt will gain 2 MMT grade on her R hip abduction to improve her trendelenburg sign during gait. LTG Duration 10 weeks LEFS Impairment pt scores 56 on LEFS Short Term Goal (STG) 03/19 pt scores 48 after her fall 1.5 weeks ago.. Prison Goal (LTG) pt will score 65 on LEFS to improve her overall and mobility and strength. LTG Duration 10 weeks Progress Towards Goals Progress Towards Goals Slow Progress - Other Assessment Summary Assessment Pt fell on her left side last friday while being distracted adn walking over a speed bump. Pt has a significant ecchymosis and swelling on her face, L shoulder and ribcage. However, pt only did an x-ray on L shoulder since she refused to go to ER. Spent time educated pt to go urgent care to rule out possible ribcage and facial fx. Quick assessment on her L shoulder shows pt has possible RTC involvement since PROM > AROM. Recommended her to request MRI for her upcoming ortho assessment. Physical Therapy Plan Frequency and Duration Frequency of Treatment 2x/Week Duration of Treatment 8 weeks Plan of Care Start Date 04/09/21 Plan of Care End Date 06/08/21 Therapeutic Interventions Therapeutic Interventions Aquatic Therapy,Balance Training,Gait Training,Home Exercise Program,Joint Mobilizations,Manual Therapy, Neuromuscular Re-education, Patient/Caregiver Education, Self-Care/Home Management, Sensory Integration,Soft Tissue Mobilization,Taping, Therapeutic Activities, Therapeutic Exercises Modalities Cold Pack/Ice Massage,Electric Stimulation,Hot Packs, Infrared Therapy,Ultrasound Next Visit Focus/Plan Next Note Type Treatment Note Next Visit Plan Assess response to HEP review prone hip ext /side abd, SLS activities. Next tx gluteal insertion clam shell supine hip ER bridging hold Continue per PT POC: STM at R SIJ as needed, Continue improved hip abd and glut fac to allow level pelvis and aligned knees during gait. Plan of Care Dates Plan of Care Start Date 04/09/21 Plan of Care End Date 06/08/21 Electronically Signed by: Lalito Trujillo, PT 04/09/21 1210 Please Sign and Return: I have reviewed this Plan of Care and certify that the skilled therapy services above are required to meet the patient?s needs. Physician Signature Date Printed Name and Credentials Clinical Instructor Signature Printed Name and Credentials
--- NOTE | 2021-04-09 12:11 | PT.OPPN ---
Current Diagnoses Other symptoms and signs involving the musculoskeletal system (04/09/21) Physical Therapy Progress Note PT-OP-A Visit Information Start: 01/22/21 11:36 Freq: Status: Active Protocol: Document 04/09/21 11:16 HH (Rec: 04/09/21 12:00 HH [id number]) Out-Patient Physical Therapy Visit Information Visit Information Visit Type Re-Evaluation Visit Note Pt fell on 04/04/21 her L shoulder x-ray= negative . Will consult with Dr. Mandujano for further assessment. Visit Start Time 11:18 Visit Stop Time 12:45 Total Visit Minutes 27 Visit Number 15/ Number of CONE PICKER Visits 0 PT-OP-B Current Condition Start: 01/22/21 11:36 Freq: Status: Active Protocol: Document 01/22/21 11:40 HH (Rec: 01/22/21 12:12 HH [email or web address]) Current Condition History of Current Condition Onset Date many years ago Current Complaints R hip weakness, decreased balance, difficulty in walking History of Current Condition Serenity is a 75yo female referred by Dr. Wilson evaluate for pelvic muscle weakness. She has been walking with an abnormal gait for many years with unknown cause. She had MRI which showed atrophy and fatty replacement of the right gluteus medius muscle. She leans towards R side when she walks and tends to caught with her L foot sometimes. Pt had 6 falls in last year and unable to walk for long distance d/t poor balance and fall risks. Pt does not have any recent back pain but had sciatica in the past but does not recall which leg. She denies any tingling and numbness and noticeable pain at this point. No sensation loss noted from Dr. Dallas note. Pt is very active and does her full body workout program 5x/ week. Prior Treatments and Tests EMG examination shows signficiant chronic denervation without active denervation restricted tot the R gluteus medius muscle. There is no evidence of myopathy in any of the muscle sampled. The decreased right peroneal motor amplitude is a nonspecific finding in isolation, but given the normal superficial peroneal sensory response, could indicate a chronic L5/S1 radiculopathy. MRI which showed atrophy and fatty replacement of the right gluteus medius muscle Treatment Goals Patient/Caregiver Goals 1. To normalize her gait pattern 2. to be able to walk a mile Personal Factors Other Personal Factors That May Effect 6 falls in last year. 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 I hurt my face, shoulder and ribcage badly. My shoulder has been hurting more than the other body parts but the x-ray from ortho office shows negative for fx. I couldnt lift my arm since then PT-OP-D Balance Start: 01/22/21 11:36 Freq: Status: Active Protocol: Document 03/19/21 08:11 HH (Rec: 03/19/21 09:02 HH [id number]) Balance Tests Single Limb Standing Single Limb- Right 5,9 Single Limb- Left 16 x2 PT-OP-F Manual Assessment Start: 01/22/21 11:36 Freq: Status: Active Protocol: Document 01/22/21 11:40 HH (Rec: 01/22/21 12:12 HH [email or web address]) Manual Assessments Soft Tissue Assessment Soft Tissue Mobility Assessment hypertonicity noted at R SIJ, proximal gluteal max insertion reports of tingling sensation at lateral thigh with pressure at gluteus medius atrophy noted at R gluteal muscle group Joint Mobility Assessment Joint Mobility Assessment WFL PT-OP-G Mobility & Gait Start: 01/22/21 11:36 Freq: Status: Active Protocol: Document 01/22/21 11:40 HH (Rec: 01/22/21 12:12 HH [email or web address]) OP Gait Assessment Gait Deviations General Gait Pattern Decreased Stride Length, Decreased Feet Clearance, Lateral Trunk Lean Factors Limiting Gait Function Factors Limiting Gait Function Decreased Activity Tolerance, Decreased Strength,Poor Balance Comments Gait Comments +ve tredelenburg sign on R side during stance phase on REL. Mild knee valgus noted on R knee as well. PT-OP-H Neuro Start: 01/22/21 11:36 Freq: Status: Active Protocol: Document 01/22/21 11:40 HH (Rec: 01/22/21 12:12 HH [email or web address]) Sensation Evaluation Gross Sensation Gross Sensation WNL Deep Tendon Reflex & Clonus Assessment Deep Tendon Reflex Bilateral Achilles Deep Tendon Reflex 2+ Normal Bilateral Patellar Deep Tendon Reflex 2+ Normal PT-OP-J Posture/Palpation/Skin Start: 01/22/21 11:36 Freq: Status: Active Protocol: Document 01/22/21 11:40 HH (Rec: 01/22/21 12:12 [email or web address]) Posture Evaluation Position Standing Weight Distribution Weight Shifted Left,Decreased Wt.Bear on (R) PT-OP-K Range of Motion Start: 01/22/21 11:36 Freq: Status: Active Protocol: Document 04/09/21 12:10 HH (Rec: 04/09/21 12:10 [id number]) Shoulder Goniometric Range of Motion Shoulder Measured in Degrees Left Active Shoulder ROM WFL No Comments unable to engage AROM d/t significant pain at L shoulder PROM ~ 100 degrees for both flexion and abduction with minimal pain. PT-OP-L Special Tests Start: 01/22/21 11:36 Freq: Status: Active Protocol: Document 01/22/21 11:40 HH (Rec: 01/22/21 12:12 [email or web address]) Special Tests Hip Special Tests Piriformis Test Results -ve Scour Test Test Results -ve FLACO Test Results -ve Trendelenberg Test Results +R Comments significant R lateral trunk lean and L hip drop during stance phase of RLE PT-OP-M Strength Start: 01/22/21 11:36 Freq: Status: Active Protocol: Document 03/19/21 08:11 HH (Rec: 03/19/21 09:02 [id number]) Hip Strength Hip Manual Muscle Testing Right Flexion (L2) 3+ Fair+ Extension (S1) 3+ Fair+ Abduction 2 Poor Adduction 4- Good- External Rotation 4 Good Internal Rotation 3+ Fair+ Left Flexion (L2) 4+ Good+ Extension (S1) 4+ Good+ Abduction 4+ Good+ Adduction 4+ Good+ External Rotation 4 Good Internal Rotation 4- Good- PT-OP-T Assessment and Plan Start: 01/22/21 11:36 Freq: Status: Active Protocol: Document 04/09/21 11:16 HH (Rec: 04/09/21 12:00 [id number]) Physical Therapy Assessment Goals falls Impairment pt has had 2 falls within 1 month Short Term Goal (STG) pt will show improved balance and gait mechanics (less toe drag) so she will not fall again for the next 2 months STG Duration 4 weeks balance Impairment pt does has have single leg balance on RLE Short Term Goal (STG) pt will improve her R single leg balance by 4 seconds to improve her gait stability. 03/19 met pt able to stand on RLE 5-9 seconds with R lateral trunk lean 03/19 STG Duration 5 weeks Snf Goal (LTG) 04/09 unable to assess d/t her recent fall pt will improve her R single leg balance by 8 seconds to improve her gait stability. LTG Duration 10 weeks activity tolerance Impairment pt cannot walk for long distance Short Term Goal (STG) pt will be able to complete a 0.5 walk 3 times a week without increase in discomfort . 03/19 pt started to workout with her lion trainer for a week but she just fell recnetly so she stopped her ex routine. 03/19 STG Duration 5 weeks Sales Officer Goal (LTG) pt will be able to complete a mile walk 3 times a week without increase in discomfort . LTG Duration 10 weeks strength Impairment pt has 2/5 muscle strength at R hip abduction Short Term Goal (STG) Pt will gain 1 MMT grade on her R hip abduction to improve her gait mechanics. 04/09 pt able to complete 10 times clamshell x2 sets iso 2 second hold for SL hip abduction STG Duration 5 weeks Sales Officer Goal (LTG) Pt will gain 2 MMT grade on her R hip abduction to improve her trendelenburg sign during gait. LTG Duration 10 weeks LEFS Impairment pt scores 56 on LEFS Short Term Goal (STG) 03/19 pt scores 48 after her fall 1.5 weeks ago.. Snf Goal (LTG) pt will score 65 on LEFS to improve her overall and mobility and strength. LTG Duration 10 weeks Progress Towards Goals Progress Towards Goals Slow Progress - Other Assessment Summary Assessment Pt fell on her left side last friday while being distracted adn walking over a speed bump. Pt has a significant ecchymosis and swelling on her face, L shoulder and ribcage. However, pt only did an x-ray on L shoulder since she refused to go to ER. Spent time educated pt to go urgent care to rule out possible ribcage and facial fx. Quick assessment on her L shoulder shows pt has possible RTC involvement since PROM > AROM. Recommended her to request MRI for her upcoming ortho assessment. Physical Therapy Plan Frequency and Duration Frequency of Treatment 2x/Week Duration of Treatment 8 weeks Plan of Care Start Date 04/09/21 Plan of Care End Date 06/08/21 Therapeutic Interventions Therapeutic Interventions Aquatic Therapy,Balance Training,Gait Training,Home Exercise Program,Joint Mobilizations,Manual Therapy, Neuromuscular Re-education, Patient/Caregiver Education, Self-Care/Home Management, Sensory Integration,Soft Tissue Mobilization,Taping, Therapeutic Activities, Therapeutic Exercises Modalities Cold Pack/Ice Massage,Electric Stimulation,Hot Packs, Infrared Therapy,Ultrasound Next Visit Focus/Plan Next Note Type Treatment Note Next Visit Plan Assess response to HEP review prone hip ext /side abd, SLS activities. Next tx gluteal insertion clam shell supine hip ER bridging hold Continue per PT POC: STM at R SIJ as needed, Continue improved hip abd and glut fac to allow level pelvis and aligned knees during gait.
--- NOTE | 2021-05-01 16:17 | PT.OTN ---
Current Diagnoses Other symptoms and signs involving the musculoskeletal system (05/01/21) Physical Therapy Treatment Note PT-OP-A Visit Information Start: 01/22/21 11:36 Freq: Status: Active Protocol: Document 05/01/21 14:32 HH (Rec: 05/01/21 16:17 [id number]) Out-Patient Physical Therapy Visit Information Visit Information Visit Type Treatment Note Visit Note Received a new PT referral for pt's L RTC strain d/t her fall in March. However, pt stated her L shoulder has been progressing and would like to continue therapy on her hip instead. Will put her L shoulder referral on hold at this point. Visit Start Time 14:30 Visit Stop Time 15:14 Total Visit Minutes 44 Visit Number Number of ARCHEOLOGY FACULTY MEMBER Visits 0 PT-OP-B Current Condition Start: 01/22/21 11:36 Freq: Status: Active Protocol: Document 01/22/21 11:40 HH (Rec: 01/22/21 12:12 HH [email or web address]) Current Condition History of Current Condition Onset Date many years ago Current Complaints R hip weakness, decreased balance, difficulty in walking History of Current Condition Serenity is a 75yo female referred by Dr. Wilson evaluate for pelvic muscle weakness. She has been walking with an abnormal gait for many years with unknown cause. She had MRI which showed atrophy and fatty replacement of the right gluteus medius muscle. She leans towards R side when she walks and tends to caught with her L foot sometimes. Pt had 6 falls in last year and unable to walk for long distance d/t poor balance and fall risks. Pt does not have any recent back pain but had sciatica in the past but does not recall which leg. She denies any tingling and numbness and noticeable pain at this point. No sensation loss noted from Dr. Dallas note. Pt is very active and does her full body workout program 5x/ week. Prior Treatments and Tests EMG examination shows signficiant chronic denervation without active denervation restricted tot the R gluteus medius muscle. There is no evidence of myopathy in any of the muscle sampled. The decreased right peroneal motor amplitude is a nonspecific finding in isolation, but given the normal superficial peroneal sensory response, could indicate a chronic L5/S1 radiculopathy. MRI which showed atrophy and fatty replacement of the right gluteus medius muscle Treatment Goals Patient/Caregiver Goals 1. To normalize her gait pattern 2. to be able to walk a mile Personal Factors Other Personal Factors That May Effect 6 falls in last year. 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) PT-OP-C Subjective Start: 01/22/21 11:36 Freq: Status: Active Protocol: Document 05/01/21 14:32 HH (Rec: 05/01/21 16:17 HH [id number]) OP-PT Subjective Patient Comments Patient Comments My L arm is getting better and able to reach close to full range but weak. I started getting back to my HEP and im feeling much better PT-OP-D Balance Start: 01/22/21 11:36 Freq: Status: Active Protocol: Document 03/19/21 08:11 HH (Rec: 03/19/21 09:02 [id number]) Balance Tests Single Limb Standing Single Limb- Right 5,9 Single Limb- Left 16 x2 PT-OP-F Manual Assessment Start: 01/22/21 11:36 Freq: Status: Active Protocol: Document 01/22/21 11:40 HH (Rec: 01/22/21 12:12 HH [email or web address]) Manual Assessments Soft Tissue Assessment Soft Tissue Mobility Assessment hypertonicity noted at R SIJ, proximal gluteal max insertion reports of tingling sensation at lateral thigh with pressure at gluteus medius atrophy noted at R gluteal muscle group Joint Mobility Assessment Joint Mobility Assessment WFL PT-OP-G Mobility & Gait Start: 01/22/21 11:36 Freq: Status: Active Protocol: Document 01/22/21 11:40 HH (Rec: 01/22/21 12:12 HH [email or web address]) OP Gait Assessment Gait Deviations General Gait Pattern Decreased Stride Length, Decreased Feet Clearance, Lateral Trunk Lean Factors Limiting Gait Function Factors Limiting Gait Function Decreased Activity Tolerance, Decreased Strength,Poor Balance Comments Gait Comments +ve tredelenburg sign on R side during stance phase on REL. Mild knee valgus noted on R knee as well. PT-OP-H Neuro Start: 01/22/21 11:36 Freq: Status: Active Protocol: Document 01/22/21 11:40 HH (Rec: 01/22/21 12:12 HH [email or web address]) Sensation Evaluation Gross Sensation Gross Sensation WNL Deep Tendon Reflex & Clonus Assessment Deep Tendon Reflex Bilateral Achilles Deep Tendon Reflex 2+ Normal Bilateral Patellar Deep Tendon Reflex 2+ Normal PT-OP-J Posture/Palpation/Skin Start: 01/22/21 11:36 Freq: Status: Active Protocol: Document 01/22/21 11:40 HH (Rec: 01/22/21 12:12 HH [email or web address]) Posture Evaluation Position Standing Weight Distribution Weight Shifted Left,Decreased Wt.Bear on (R) PT-OP-K Range of Motion Start: 01/22/21 11:36 Freq: Status: Active Protocol: Document 04/09/21 12:10 HH (Rec: 04/09/21 12:10 HH [id number]) Shoulder Goniometric Range of Motion Shoulder Left Active Shoulder ROM WFL No Comments unable to engage AROM d/t significant pain at L shoulder PROM ~ 100 degrees for both flexion and abduction with minimal pain. PT-OP-L Special Tests Start: 01/22/21 11:36 Freq: Status: Active Protocol: Document 01/22/21 11:40 HH (Rec: 01/22/21 12:12 [email or web address]) Special Tests Hip Special Tests Piriformis Test Results -ve Scour Test Test Results -ve FLACO Test Results -ve Trendelenberg Test Results +R Comments significant R lateral trunk lean and L hip drop during stance phase of RLE PT-OP-M Strength Start: 01/22/21 11:36 Freq: Status: Active Protocol: Document 03/19/21 08:11 HH (Rec: 03/19/21 09:02 HH [id number]) Hip Strength Hip Manual Muscle Testing Right Flexion (L2) 3+ Fair+ Extension (S1) 3+ Fair+ Abduction 2 Poor Adduction 4- Good- External Rotation 4 Good Internal Rotation 3+ Fair+ Left Flexion (L2) 4+ Good+ Extension (S1) 4+ Good+ Abduction 4+ Good+ Adduction 4+ Good+ External Rotation 4 Good Internal Rotation 4- Good- PT-OP-Q Treatments Start: 01/22/21 11:36 Freq: Status: Active Protocol: Document 05/01/21 14:32 HH (Rec: 05/01/21 16:17 HH [id number]) Therapeutic Exercises Supine Exercises SLR Side bilateral Reps/Minutes 10 x2 Comments no pain noted bridge Side bilateral Resistance #3 Tb loop Reps/Minutes 2x10 Sidelying Exercises clamshell Side bilateral Reps/Minutes 10 #2 TB B, x5 GTB B, provided #3Tb for HEP Comments good pacing control Gait Training Gait Activity side step Description with UE support Device Used //bar Surface ground level, // bar heel toe Description with UE support Device Used //bar Surface ground level, // bar Distance/Duration 20 ft x 8 Comments cues on heel strike for initial contact Manual Therapy Treatment Soft Tissue Mobilization glutes Mobilization Type Sustained Pressure,Trigger Point Release Intensity/Depth Moderate Body Position Sidelying Comments minimal discomfort at glute med PT-OP-T Assessment and Plan Start: 01/22/21 11:36 Freq: Status: Active Protocol: Document 05/01/21 14:32 HH (Rec: 05/01/21 16:17 HH [id number]) Physical Therapy Assessment Goals falls Impairment pt has had 2 falls within 1 month Short Term Goal (STG) pt will show improved balance and gait mechanics (less toe drag) so she will not fall again for the next 2 months STG Duration 4 weeks balance Impairment pt does has have single leg balance on RLE Short Term Goal (STG) pt will improve her R single leg balance by 4 seconds to improve her gait stability. 03/19 met pt able to stand on RLE 5-9 seconds with R lateral trunk lean 03/19 STG Duration 5 weeks Ladle Builder Goal (LTG) 04/09 unable to assess d/t her recent fall pt will improve her R single leg balance by 8 seconds to improve her gait stability. LTG Duration 10 weeks activity tolerance Impairment pt cannot walk for long distance Short Term Goal (STG) pt will be able to complete a 0.5 walk 3 times a week without increase in discomfort . 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 03/19 STG Duration 5 weeks Retirement Goal (LTG) pt will be able to complete a mile walk 3 times a week without increase in discomfort . LTG Duration 10 weeks strength Impairment pt has 2/5 muscle strength at R hip abduction Short Term Goal (STG) Pt will gain 1 MMT grade on her R hip abduction to improve her gait mechanics. 04/09 pt able to complete 10 times clamshell x2 sets iso 2 second hold for SL hip abduction STG Duration 5 weeks Retirement Goal (LTG) Pt will gain 2 MMT grade on her R hip abduction to improve her trendelenburg sign during gait. LTG Duration 10 weeks LEFS Impairment pt scores 56 on LEFS Short Term Goal (STG) 03/19 pt scores 48 after her fall 1.5 weeks ago.. Ladle Builder Goal (LTG) pt will score 65 on LEFS to improve her overall and mobility and strength. LTG Duration 10 weeks Assessment Summary Assessment pt returned to PT after her fall in first week of March. She began to follow her HEP again few days ago and she has been doing better. Will continue therapy for her L hip 2x/wk through April then 1x/ wk for May. Physical Therapy Plan Frequency and Duration Frequency of Treatment 2x/Week Duration of Treatment 8 weeks Plan of Care Start Date 04/09/21 Plan of Care End Date 06/08/21 Therapeutic Interventions Therapeutic Interventions Aquatic Therapy,Balance Training,Gait Training,Home Exercise Program,Joint Mobilizations,Manual Therapy, Neuromuscular Re-education, Patient/Caregiver Education, Self-Care/Home Management, Sensory Integration,Soft Tissue Mobilization,Taping, Therapeutic Activities, Therapeutic Exercises Modalities Cold Pack/Ice Massage,Electric Stimulation,Hot Packs, Infrared Therapy,Ultrasound Next Visit Focus/Plan Next Note Type Treatment Note Next Visit Plan Assess response to HEP review prone hip ext /side abd, SLS activities. Next tx gluteal insertion clam shell supine hip ER bridging hold Continue per PT POC: STM at R SIJ as needed, Continue improved hip abd and glut fac to allow level pelvis and aligned knees during gait.
--- NOTE | 2021-05-04 08:15 | PT.OTN ---
Current Diagnoses Other symptoms and signs involving the musculoskeletal system (05/04/21) Physical Therapy Treatment Note PT-OP-A Visit Information Start: 01/22/21 11:36 Freq: Status: Active Protocol: Document 05/04/21 07:35 SP (Rec: 05/04/21 08:25 SP [id number]) Out-Patient Physical Therapy Visit Information Visit Information Visit Type Treatment Note Visit Note Reviewed PT last note, continue hip Txs, pt demonstrates almost FROM on L shld. Pt 5 min late for appt Visit Start Time 07:35 Visit Stop Time 08:15 Total Visit Minutes 40 Visit Number 17/ Number of PEDIATRIC SURGEON Visits 1 Evaluation Information Evaluation Date 01/22/21 Precautions Precautions 6 falls in last year. depression PT-OP-B Current Condition Start: 01/22/21 11:36 Freq: Status: Active Protocol: Document 01/22/21 11:40 HH (Rec: 01/22/21 12:12 HH [email or web address]) Current Condition History of Current Condition Onset Date many years ago Current Complaints R hip weakness, decreased balance, difficulty in walking History of Current Condition Serenity is a 75yo female referred by Dr. Wilson evaluate for pelvic muscle weakness. She has been walking with an abnormal gait for many years with unknown cause. She had MRI which showed atrophy and fatty replacement of the right gluteus medius muscle. She leans towards R side when she walks and tends to caught with her L foot sometimes. Pt had 6 falls in last year and unable to walk for long distance d/t poor balance and fall risks. Pt does not have any recent back pain but had sciatica in the past but does not recall which leg. She denies any tingling and numbness and noticeable pain at this point. No sensation loss noted from Dr. Dallas note. Pt is very active and does her full body workout program 5x/ week. Prior Treatments and Tests EMG examination shows signficiant chronic denervation without active denervation restricted tot the R gluteus medius muscle. There is no evidence of myopathy in any of the muscle sampled. The decreased right peroneal motor amplitude is a nonspecific finding in isolation, but given the normal superficial peroneal sensory response, could indicate a chronic L5/S1 radiculopathy. MRI which showed atrophy and fatty replacement of the right gluteus medius muscle Treatment Goals Patient/Caregiver Goals 1. To normalize her gait pattern 2. to be able to walk a mile Personal Factors Other Personal Factors That May Effect 6 falls in last year. 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 PT-OP-D Balance Start: 01/22/21 11:36 Freq: Status: Active Protocol: Document 03/19/21 08:11 HH (Rec: 03/19/21 09:02 HH [id number]) Balance Tests Single Limb Standing Single Limb- Right 5,9 Single Limb- Left 16 x2 PT-OP-F Manual Assessment Start: 01/22/21 11:36 Freq: Status: Active Protocol: Document 01/22/21 11:40 HH (Rec: 01/22/21 12:12 HH [email or web address]) Manual Assessments Soft Tissue Assessment Soft Tissue Mobility Assessment hypertonicity noted at R SIJ, proximal gluteal max insertion reports of tingling sensation at lateral thigh with pressure at gluteus medius atrophy noted at R gluteal muscle group Joint Mobility Assessment Joint Mobility Assessment WFL PT-OP-G Mobility & Gait Start: 01/22/21 11:36 Freq: Status: Active Protocol: Document 01/22/21 11:40 HH (Rec: 01/22/21 12:12 HH [email or web address]) OP Gait Assessment Gait Deviations General Gait Pattern Decreased Stride Length, Decreased Feet Clearance, Lateral Trunk Lean Factors Limiting Gait Function Factors Limiting Gait Function Decreased Activity Tolerance, Decreased Strength,Poor Balance Comments Gait Comments +ve tredelenburg sign on R side during stance phase on REL. Mild knee valgus noted on R knee as well. PT-OP-H Neuro Start: 01/22/21 11:36 Freq: Status: Active Protocol: Document 01/22/21 11:40 HH (Rec: 01/22/21 12:12 HH [email or web address]) Sensation Evaluation Gross Sensation Gross Sensation WNL Deep Tendon Reflex & Clonus Assessment Deep Tendon Reflex Bilateral Achilles Deep Tendon Reflex 2+ Normal Bilateral Patellar Deep Tendon Reflex 2+ Normal PT-OP-J Posture/Palpation/Skin Start: 01/22/21 11:36 Freq: Status: Active Protocol: Document 01/22/21 11:40 HH (Rec: 01/22/21 12:12 HH [email or web address]) Posture Evaluation Position Standing Weight Distribution Weight Shifted Left,Decreased Wt.Bear on (R) PT-OP-K Range of Motion Start: 01/22/21 11:36 Freq: Status: Active Protocol: Document 04/09/21 12:10 HH (Rec: 04/09/21 12:10 HH [id number]) Shoulder Goniometric Range of Motion Shoulder Left Active Shoulder ROM WFL No Comments unable to engage AROM d/t significant pain at L shoulder PROM ~ 100 degrees for both flexion and abduction with minimal pain. PT-OP-L Special Tests Start: 01/22/21 11:36 Freq: Status: Active Protocol: Document 01/22/21 11:40 HH (Rec: 01/22/21 12:12 HH [email or web address]) Special Tests Hip Special Tests Piriformis Test Results -ve Scour Test Test Results -ve FLACO Test Results -ve Trendelenberg Test Results +R Comments significant R lateral trunk lean and L hip drop during stance phase of RLE PT-OP-M Strength Start: 01/22/21 11:36 Freq: Status: Active Protocol: Document 03/19/21 08:11 HH (Rec: 03/19/21 09:02 HH [id number]) Hip Strength Hip Manual Muscle Testing Right Flexion (L2) 3+ Fair+ Extension (S1) 3+ Fair+ Abduction 2 Poor Adduction 4- Good- External Rotation 4 Good Internal Rotation 3+ Fair+ Left Flexion (L2) 4+ Good+ Extension (S1) 4+ Good+ Abduction 4+ Good+ Adduction 4+ Good+ External Rotation 4 Good Internal Rotation 4- Good- PT-OP-Q Treatments Start: 01/22/21 11:36 Freq: Status: Active Protocol: Document 05/04/21 07:35 SP (Rec: 05/04/21 08:25 SP [id number]) Therapeutic Exercises Supine Exercises SLR Supine Exercise Name Keep feet // Side bilateral Reps/Minutes x20 Comments no pain noted supine hip abduction Side bilateral Reps/Minutes x20 bridge Side bilateral Resistance #3 Tb loop Reps/Minutes 8 sec hold x10 Comments cued PPT and core fac, not arch mid back supine clamshell Supine Exercise Name hip ER Side bilateral Resistance #3 TB Reps/Minutes x20 Comments good slow pacing core stab control Sidelying Exercises clamshell Side bilateral Reps/Minutes 10 #3 TB Comments good pacing control Gait Training Gait Activity side step Description with UE support Device Used //bar, mirror for self feedback Surface ground level, // bar 1 UE contact Treatment Focus R>L hip glut/ hip abd fac for normalizing level pelvis gait Comments cued R glut and quad and hip ER w/ foot flat facilitation to allow decreased R hip depression heel toe Description (Tandem) with UE support Device Used //bar, mirror for self feedback Surface ground level, // bar Distance/Duration 20 ft x 8 Treatment Focus R>L hip glut/ hip abd fac for normalizing level pelvis gait Comments cues on heel strike for initial contact w/ quad/hip abd fac and tall trunk elevation over stance LE (R weaker than L). Requires RUE contact support due to continued L UE pain if WB to much. PT-OP-T Assessment and Plan Start: 01/22/21 11:36 Freq: Status: Active Protocol: Document 05/04/21 07:35 SP (Rec: 05/04/21 08:25 SP [id number]) Physical Therapy Assessment Goals falls Impairment pt has had 2 falls within 1 month Short Term Goal (STG) pt will show improved balance and gait mechanics (less toe drag) so she will not fall again for the next 2 months STG Duration 4 weeks balance Impairment pt does has have single leg balance on RLE Short Term Goal (STG) pt will improve her R single leg balance by 4 seconds to improve her gait stability. 03/19 met pt able to stand on RLE 5-9 seconds with R lateral trunk lean 03/19 STG Duration 5 weeks [facility] Goal (LTG) 04/09 unable to assess d/t her recent fall pt will improve her R single leg balance by 8 seconds to improve her gait stability. LTG Duration 10 weeks activity tolerance Impairment pt cannot walk for long distance Short Term Goal (STG) pt will be able to complete a 0.5 walk 3 times a week without increase in discomfort . 03/19 pt started to workout with her lead trainer for a week but she just fell recnetly so she stopped her ex routine. 03/19 STG Duration 5 weeks [employer] Goal (LTG) pt will be able to complete a mile walk 3 times a week without increase in discomfort . LTG Duration 10 weeks strength Impairment pt has 2/5 muscle strength at R hip abduction Short Term Goal (STG) Pt will gain 1 MMT grade on her R hip abduction to improve her gait mechanics. 04/09 pt able to complete 10 times clamshell x2 sets iso 2 second hold for SL hip abduction STG Duration 5 weeks [facility] Goal (LTG) Pt will gain 2 MMT grade on her R hip abduction to improve her trendelenburg sign during gait. LTG Duration 10 weeks LEFS Impairment pt scores 56 on LEFS Short Term Goal (STG) 03/19 pt scores 48 after her fall 1.5 weeks ago.. [facility] Goal (LTG) pt will score 65 on LEFS to improve her overall and mobility and strength. LTG Duration 10 weeks Assessment Summary Assessment Tx focused on R hip abd and quad facilitation with added cues for tall posture over R stance L to maintain 25% of time allow increased stability during LLe advancement w/UE support and mirror self feedback. Physical Therapy Plan Frequency and Duration Frequency of Treatment 2x/Week Duration of Treatment 8 weeks Plan of Care Start Date 04/09/21 Plan of Care End Date 06/08/21 Therapeutic Interventions Therapeutic Interventions Aquatic Therapy,Balance Training,Gait Training,Home Exercise Program,Joint Mobilizations,Manual Therapy, Neuromuscular Re-education, Patient/Caregiver Education, Self-Care/Home Management, Sensory Integration,Soft Tissue Mobilization,Taping, Therapeutic Activities, Therapeutic Exercises Modalities Cold Pack/Ice Massage,Electric Stimulation,Hot Packs, Infrared Therapy,Ultrasound Next Visit Focus/Plan Next Note Type Treatment Note Next Visit Plan Continue R >L hip abd strengthening. Next tx gluteal insertion clam shell supine hip ER bridging hold tandem and side stepping stab strengthening Continue per PT POC: STM at R SIJ as needed, Continue improved hip abd and glut fac to allow level pelvis and aligned knees during gait.
--- NOTE | 2021-05-08 16:19 | PT.OTN ---
Current Diagnoses Other symptoms and signs involving the musculoskeletal system (05/08/21) Physical Therapy Treatment Note PT-OP-A Visit Information Start: 01/22/21 11:36 Freq: Status: Active Protocol: Document 05/08/21 14:33 HH (Rec: 05/08/21 16:14 [id number]) Out-Patient Physical Therapy Visit Information Visit Information Visit Type Treatment Note Visit Note KX modifier next visit Visit Start Time 07:35 Visit Stop Time 08:15 Total Visit Minutes 40 Visit Number 18/19 Number of TREATING ENGINEER Visits 0 PT-OP-B Current Condition Start: 01/22/21 11:36 Freq: Status: Active Protocol: Document 01/22/21 11:40 HH (Rec: 01/22/21 12:12 HH [email or web address]) Current Condition History of Current Condition Onset Date many years ago Current Complaints R hip weakness, decreased balance, difficulty in walking History of Current Condition Serenity is a 75yo female referred by Dr. Wilson evaluate for pelvic muscle weakness. She has been walking with an abnormal gait for many years with unknown cause. She had MRI which showed atrophy and fatty replacement of the right gluteus medius muscle. She leans towards R side when she walks and tends to caught with her L foot sometimes. Pt had 6 falls in last year and unable to walk for long distance d/t poor balance and fall risks. Pt does not have any recent back pain but had sciatica in the past but does not recall which leg. She denies any tingling and numbness and noticeable pain at this point. No sensation loss noted from Dr. Dallas note. Pt is very active and does her full body workout program 5x/ week. Prior Treatments and Tests EMG examination shows signficiant chronic denervation without active denervation restricted tot the R gluteus medius muscle. There is no evidence of myopathy in any of the muscle sampled. The decreased right peroneal motor amplitude is a nonspecific finding in isolation, but given the normal superficial peroneal sensory response, could indicate a chronic L5/S1 radiculopathy. MRI which showed atrophy and fatty replacement of the right gluteus medius muscle Treatment Goals Patient/Caregiver Goals 1. To normalize her gait pattern 2. to be able to walk a mile Personal Factors Other Personal Factors That May Effect 6 falls in last year. 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 PT-OP-D Balance Start: 01/22/21 11:36 Freq: Status: Active Protocol: Document 03/19/21 08:11 HH (Rec: 03/19/21 09:02 HH [id number]) Balance Tests Single Limb Standing Single Limb- Right 5,9 Single Limb- Left 16 x2 PT-OP-F Manual Assessment Start: 01/22/21 11:36 Freq: Status: Active Protocol: Document 01/22/21 11:40 HH (Rec: 01/22/21 12:12 HH [email or web address]) Manual Assessments Soft Tissue Assessment Soft Tissue Mobility Assessment hypertonicity noted at R SIJ, proximal gluteal max insertion reports of tingling sensation at lateral thigh with pressure at gluteus medius atrophy noted at R gluteal muscle group Joint Mobility Assessment Joint Mobility Assessment WFL PT-OP-G Mobility & Gait Start: 01/22/21 11:36 Freq: Status: Active Protocol: Document 01/22/21 11:40 HH (Rec: 01/22/21 12:12 HH [email or web address]) OP Gait Assessment Gait Deviations General Gait Pattern Decreased Stride Length, Decreased Feet Clearance, Lateral Trunk Lean Factors Limiting Gait Function Factors Limiting Gait Function Decreased Activity Tolerance, Decreased Strength,Poor Balance Comments Gait Comments +ve tredelenburg sign on R side during stance phase on REL. Mild knee valgus noted on R knee as well. PT-OP-H Neuro Start: 01/22/21 11:36 Freq: Status: Active Protocol: Document 01/22/21 11:40 HH (Rec: 01/22/21 12:12 HH [email or web address]) Sensation Evaluation Gross Sensation Gross Sensation WNL Deep Tendon Reflex & Clonus Assessment Deep Tendon Reflex Bilateral Achilles Deep Tendon Reflex 2+ Normal Bilateral Patellar Deep Tendon Reflex 2+ Normal PT-OP-J Posture/Palpation/Skin Start: 01/22/21 11:36 Freq: Status: Active Protocol: Document 01/22/21 11:40 HH (Rec: 01/22/21 12:12 HH [email or web address]) Posture Evaluation Position Standing Weight Distribution Weight Shifted Left,Decreased Wt.Bear on (R) PT-OP-K Range of Motion Start: 01/22/21 11:36 Freq: Status: Active Protocol: Document 04/09/21 12:10 HH (Rec: 04/09/21 12:10 HH [id number]) Shoulder Goniometric Range of Motion Shoulder Left Active Shoulder ROM WFL No Comments unable to engage AROM d/t significant pain at L shoulder PROM ~ 100 degrees for both flexion and abduction with minimal pain. PT-OP-L Special Tests Start: 01/22/21 11:36 Freq: Status: Active Protocol: Document 01/22/21 11:40 HH (Rec: 01/22/21 12:12 [email or web address]) Special Tests Hip Special Tests Piriformis Test Results -ve Scour Test Test Results -ve FLACO Test Results -ve Trendelenberg Test Results +R Comments significant R lateral trunk lean and L hip drop during stance phase of RLE PT-OP-M Strength Start: 01/22/21 11:36 Freq: Status: Active Protocol: Document 03/19/21 08:11 HH (Rec: 03/19/21 09:02 [id number]) Hip Strength Hip Manual Muscle Testing Right Flexion (L2) 3+ Fair+ Extension (S1) 3+ Fair+ Abduction 2 Poor Adduction 4- Good- External Rotation 4 Good Internal Rotation 3+ Fair+ Left Flexion (L2) 4+ Good+ Extension (S1) 4+ Good+ Abduction 4+ Good+ Adduction 4+ Good+ External Rotation 4 Good Internal Rotation 4- Good- PT-OP-Q Treatments Start: 01/22/21 11:36 Freq: Status: Active Protocol: Document 05/08/21 14:33 HH (Rec: 05/08/21 16:14 HH [id number]) Gym Equipment Shuttle Recovery SL squat Details good effort, cued knee alignment glut/quad facilitation Resistance 50# Shuttle Recovery Platform Stable Reps/Time 2x15 Therapeutic Exercises Supine Exercises SLR Supine Exercise Name Keep feet // Side bilateral Reps/Minutes x20 Comments no pain noted supine hip abduction Side bilateral Reps/Minutes x20 bridge Side bilateral Resistance #3 Tb loop Reps/Minutes 8 sec hold x10 Comments cued PPT and core fac, not arch mid back supine clamshell Supine Exercise Name hip ER Side bilateral Resistance #3 TB Reps/Minutes x20 Comments good slow pacing core stab control Gait Training Gait Activity SPC Device Used SPC Level of Assistance SBA Surface ground level Distance/Duration 40 x4 Treatment Focus on 2 point pattern Comments reciprocal pattern encouraged. reduced R knee valgus and toe drag side step Description with UE support Device Used //bar, mirror for self feedback Surface ground level, // bar 1 UE contact Treatment Focus R>L hip glut/ hip abd fac for normalizing level pelvis gait Comments cued R glut and quad and hip ER w/ foot flat facilitation to allow decreased R hip depression heel toe Description (Tandem) with UE support Device Used //bar, mirror for self feedback Surface ground level, // bar Distance/Duration 20 ft x 8 Treatment Focus R>L hip glut/ hip abd fac for normalizing level pelvis gait Comments cues on heel strike for initial contact w/ quad/hip abd fac and tall trunk elevation over stance LE (R weaker than L). Requires RUE contact support due to continued L UE pain if WB to much. PT-OP-T Assessment and Plan Start: 01/22/21 11:36 Freq: Status: Active Protocol: Document 05/08/21 14:33 (Rec: 05/08/21 16:14 [id number]) Physical Therapy Assessment Goals falls Impairment pt has had 2 falls within 1 month Short Term Goal (STG) pt will show improved balance and gait mechanics (less toe drag) so she will not fall again for the next 2 months STG Duration 4 weeks balance Impairment pt does has have single leg balance on RLE Short Term Goal (STG) pt will improve her R single leg balance by 4 seconds to improve her gait stability. 03/19 met pt able to stand on RLE 5-9 seconds with R lateral trunk lean 03/19 STG Duration 5 weeks [employer] Goal (LTG) 04/09 unable to assess d/t her recent fall pt will improve her R single leg balance by 8 seconds to improve her gait stability. LTG Duration 10 weeks activity tolerance Impairment pt cannot walk for long distance Short Term Goal (STG) pt will be able to complete a 0.5 walk 3 times a week without increase in discomfort . 03/19 pt started to workout with her link trainer mechanic for a week but she just fell recnetly so she stopped her ex routine. 03/19 STG Duration 5 weeks [employer] Goal (LTG) pt will be able to complete a mile walk 3 times a week without increase in discomfort . LTG Duration 10 weeks strength Impairment pt has 2/5 muscle strength at R hip abduction Short Term Goal (STG) Pt will gain 1 MMT grade on her R hip abduction to improve her gait mechanics. 04/09 pt able to complete 10 times clamshell x2 sets iso 2 second hold for SL hip abduction STG Duration 5 weeks [facility] Goal (LTG) Pt will gain 2 MMT grade on her R hip abduction to improve her trendelenburg sign during gait. LTG Duration 10 weeks LEFS Impairment pt scores 56 on LEFS Short Term Goal (STG) 03/19 pt scores 48 after her fall 1.5 weeks ago.. [facility] Goal (LTG) pt will score 65 on LEFS to improve her overall and mobility and strength. LTG Duration 10 weeks Assessment Summary Assessment Pt continues to recover from her fall in March. Her functional level back to where she was before her fall. Pt did practice gait training with SPC on LUE (2 pt pattern) . Pt shows reduced knock knee pattern + and increased stability. Educated her to use it for outdoor activities. Although pt almost reaches her visit limits since she had two accidents which set her back for the progress, i personally believes pt will still continuously benefit from skilled therapy to strengthening her trunk, hip stability and gait training to reduce her fall risks. Physical Therapy Plan Frequency and Duration Frequency of Treatment 2x/Week Duration of Treatment 8 weeks Plan of Care Start Date 04/09/21 Plan of Care End Date 06/08/21 Therapeutic Interventions Therapeutic Interventions Aquatic Therapy,Balance Training,Gait Training,Home Exercise Program,Joint Mobilizations,Manual Therapy, Neuromuscular Re-education, Patient/Caregiver Education, Self-Care/Home Management, Sensory Integration,Soft Tissue Mobilization,Taping, Therapeutic Activities, Therapeutic Exercises Modalities Cold Pack/Ice Massage,Electric Stimulation,Hot Packs, Infrared Therapy,Ultrasound Next Visit Focus/Plan Next Note Type Treatment Note Next Visit Plan Continue R >L hip abd strengthening. Next tx gluteal insertion clam shell supine hip ER bridging hold tandem and side stepping stab strengthening Continue per PT POC: STM at R SIJ as needed, Continue improved hip abd and glut fac to allow level pelvis and aligned knees during gait.
--- NOTE | 2021-05-10 14:35 | PT.OTN ---
Current Diagnoses Other symptoms and signs involving the musculoskeletal system (05/10/21) Physical Therapy Treatment Note PT-OP-A Visit Information Start: 01/22/21 11:36 Freq: Status: Active Protocol: Document 05/10/21 13:51 SP (Rec: 05/10/21 14:50 SP [id number]) Out-Patient Physical Therapy Visit Information Visit Information Visit Type Treatment Note Visit Note KX modifier next visit Visit Start Time 13:51 Visit Stop Time 14:35 Total Visit Minutes 44 Visit Number Number of UNDERWRITER SOLICITATION DIRECTOR Visits 1 Evaluation Information Evaluation Date 01/22/21 Precautions Precautions 6 falls in last year. depression PT-OP-B Current Condition Start: 01/22/21 11:36 Freq: Status: Active Protocol: Document 01/22/21 11:40 HH (Rec: 01/22/21 12:12 HH [email or web address]) Current Condition History of Current Condition Onset Date many years ago Current Complaints R hip weakness, decreased balance, difficulty in walking History of Current Condition Serenity is a 75yo female referred by Dr. Wilson evaluate for pelvic muscle weakness. She has been walking with an abnormal gait for many years with unknown cause. She had MRI which showed atrophy and fatty replacement of the right gluteus medius muscle. She leans towards R side when she walks and tends to caught with her L foot sometimes. Pt had 6 falls in last year and unable to walk for long distance d/t poor balance and fall risks. Pt does not have any recent back pain but had sciatica in the past but does not recall which leg. She denies any tingling and numbness and noticeable pain at this point. No sensation loss noted from Dr. Dallas note. Pt is very active and does her full body workout program 5x/ week. Prior Treatments and Tests EMG examination shows signficiant chronic denervation without active denervation restricted tot the R gluteus medius muscle. There is no evidence of myopathy in any of the muscle sampled. The decreased right peroneal motor amplitude is a nonspecific finding in isolation, but given the normal superficial peroneal sensory response, could indicate a chronic L5/S1 radiculopathy. MRI which showed atrophy and fatty replacement of the right gluteus medius muscle Treatment Goals Patient/Caregiver Goals 1. To normalize her gait pattern 2. to be able to walk a mile Personal Factors Other Personal Factors That May Effect 6 falls in last year. 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 I am compliant with HEP . PT-OP-D Balance Start: 01/22/21 11:36 Freq: Status: Active Protocol: Document 03/19/21 08:11 HH (Rec: 03/19/21 09:02 HH [id number]) Balance Tests Single Limb Standing Single Limb- Right 5,9 Single Limb- Left 16 x2 PT-OP-F Manual Assessment Start: 01/22/21 11:36 Freq: Status: Active Protocol: Document 01/22/21 11:40 HH (Rec: 01/22/21 12:12 HH [email or web address]) Manual Assessments Soft Tissue Assessment Soft Tissue Mobility Assessment hypertonicity noted at R SIJ, proximal gluteal max insertion reports of tingling sensation at lateral thigh with pressure at gluteus medius atrophy noted at R gluteal muscle group Joint Mobility Assessment Joint Mobility Assessment WFL PT-OP-G Mobility & Gait Start: 01/22/21 11:36 Freq: Status: Active Protocol: Document 01/22/21 11:40 HH (Rec: 01/22/21 12:12 HH [email or web address]) OP Gait Assessment Gait Deviations General Gait Pattern Decreased Stride Length, Decreased Feet Clearance, Lateral Trunk Lean Factors Limiting Gait Function Factors Limiting Gait Function Decreased Activity Tolerance, Decreased Strength,Poor Balance Comments Gait Comments +ve tredelenburg sign on R side during stance phase on REL. Mild knee valgus noted on R knee as well. PT-OP-H Neuro Start: 01/22/21 11:36 Freq: Status: Active Protocol: Document 01/22/21 11:40 HH (Rec: 01/22/21 12:12 HH [email or web address]) Sensation Evaluation Gross Sensation Gross Sensation WNL Deep Tendon Reflex & Clonus Assessment Deep Tendon Reflex Bilateral Achilles Deep Tendon Reflex 2+ Normal Bilateral Patellar Deep Tendon Reflex 2+ Normal PT-OP-J Posture/Palpation/Skin Start: 01/22/21 11:36 Freq: Status: Active Protocol: Document 01/22/21 11:40 HH (Rec: 01/22/21 12:12 HH [email or web address]) Posture Evaluation Position Standing Weight Distribution Weight Shifted Left,Decreased Wt.Bear on (R) PT-OP-K Range of Motion Start: 01/22/21 11:36 Freq: Status: Active Protocol: Document 04/09/21 12:10 HH (Rec: 04/09/21 12:10 HH [id number]) Shoulder Goniometric Range of Motion Shoulder Left Active Shoulder ROM WFL No Comments unable to engage AROM d/t significant pain at L shoulder PROM ~ 100 degrees for both flexion and abduction with minimal pain. PT-OP-L Special Tests Start: 01/22/21 11:36 Freq: Status: Active Protocol: Document 01/22/21 11:40 HH (Rec: 01/22/21 12:12 HH [email or web address]) Special Tests Hip Special Tests Piriformis Test Results -ve Scour Test Test Results -ve FLACO Test Results -ve Trendelenberg Test Results +R Comments significant R lateral trunk lean and L hip drop during stance phase of RLE PT-OP-M Strength Start: 01/22/21 11:36 Freq: Status: Active Protocol: Document 03/19/21 08:11 HH (Rec: 03/19/21 09:02 HH [id number]) Hip Strength Hip Manual Muscle Testing Right Flexion (L2) 3+ Fair+ Extension (S1) 3+ Fair+ Abduction 2 Poor Adduction 4- Good- External Rotation 4 Good Internal Rotation 3+ Fair+ Left Flexion (L2) 4+ Good+ Extension (S1) 4+ Good+ Abduction 4+ Good+ Adduction 4+ Good+ External Rotation 4 Good Internal Rotation 4- Good- PT-OP-Q Treatments Start: 01/22/21 11:36 Freq: Status: Active Protocol: Document 05/10/21 13:51 SP (Rec: 05/10/21 14:50 SP [id number]) Gym Equipment Shuttle Recovery B squat Resistance 62# Shuttle Recovery Platform Unstable Reps/Time x30 SL squat Details good effort, cued knee alignment glut/quad facilitation Resistance 50# Shuttle Recovery Platform Stable Reps/Time 2x15 Therapeutic Exercises Supine Exercises SLR Supine Exercise Name toe pointed to ceiling Side bilateral Reps/Minutes x20 Comments no pain supine hip abduction Supine Exercise Name keep feet // Side bilateral Reps/Minutes x20 bridge Side bilateral Resistance #3 Tb loop Reps/Minutes x20 Comments cued PPT and core fac, not arch mid back Sidelying Exercises clamshell Side bilateral Reps/Minutes 10 #3 TB Comments good pacing control Sitting Exercises ankle EV, DF Sitting Exercise Name assist foot clearance during gait carryover Side left Resistance TB #1 Reps/Minutes x10 reps each Comments cued stab of L knee/ hip for focused isolation strengthening for foot clear hip IR/ER stretch Side bilateral Reps/Minutes 30 Standing Exercises arch lift in standing Standing Exercise Name assist with ankle stab- per pt Side bilateral Comments cued MTP contact floor and femur forward align Gait Training Gait Activity SPC Device Used SPC Level of Assistance SBA Surface ground level, front mirror self feedback Distance/Duration 40 x4 Treatment Focus on 2 point pattern Comments reciprocal pattern encouraged. cued heel toe and eversion awareness noted reduced R knee valgus and toe drag heel toe Description stagger with UE support Device Used //bar, mirror for self feedback Surface ground level, SPC Distance/Duration 20 ft x 8 Treatment Focus R>L hip glut/ hip abd fac for normalizing level pelvis gait, L ankle EV&DF Comments cues on heel strike for initial contact w/ quad/hip abd fac and tall trunk elevation over stance LE (R weaker than L). Requires RUE contact support due to continued L UE pain if WB to much. PT-OP-T Assessment and Plan Start: 01/22/21 11:36 Freq: Status: Active Protocol: Document 05/10/21 13:51 SP (Rec: 05/10/21 14:50 SP [id number]) Physical Therapy Assessment Goals falls Impairment pt has had 2 falls within 1 month Short Term Goal (STG) pt will show improved balance and gait mechanics (less toe drag) so she will not fall again for the next 2 months STG Duration 4 weeks balance Impairment pt does has have single leg balance on RLE Short Term Goal (STG) pt will improve her R single leg balance by 4 seconds to improve her gait stability. 03/19 met pt able to stand on RLE 5-9 seconds with R lateral trunk lean 03/19 STG Duration 5 weeks Detention Goal (LTG) 04/09 unable to assess d/t her recent fall pt will improve her R single leg balance by 8 seconds to improve her gait stability. LTG Duration 10 weeks activity tolerance Impairment pt cannot walk for long distance Short Term Goal (STG) pt will be able to complete a 0.5 walk 3 times a week without increase in discomfort . 03/19 pt started to workout with her safety trainer for a week but she just fell recnetly so she stopped her ex routine. 03/19 STG Duration 5 weeks Detention Goal (LTG) pt will be able to complete a mile walk 3 times a week without increase in discomfort . LTG Duration 10 weeks strength Impairment pt has 2/5 muscle strength at R hip abduction Short Term Goal (STG) Pt will gain 1 MMT grade on her R hip abduction to improve her gait mechanics. 04/09 pt able to complete 10 times clamshell x2 sets iso 2 second hold for SL hip abduction STG Duration 5 weeks Detention Goal (LTG) Pt will gain 2 MMT grade on her R hip abduction to improve her trendelenburg sign during gait. LTG Duration 10 weeks LEFS Impairment pt scores 56 on LEFS Short Term Goal (STG) 03/19 pt scores 48 after her fall 1.5 weeks ago.. Detention Goal (LTG) pt will score 65 on LEFS to improve her overall and mobility and strength. LTG Duration 10 weeks Assessment Summary Assessment Tx focused on glut med, hip abd and ankle DF, EVs to improve level pelvis during gait and proper patterning SPC. Pt felt had more detailed awareness end of tx. I work on this at home and feel improving. Physical Therapy Plan Frequency and Duration Frequency of Treatment 2x/Week Duration of Treatment 8 weeks Plan of Care Start Date 04/09/21 Plan of Care End Date 06/08/21 Therapeutic Interventions Therapeutic Interventions Aquatic Therapy,Balance Training,Gait Training,Home Exercise Program,Joint Mobilizations,Manual Therapy, Neuromuscular Re-education, Patient/Caregiver Education, Self-Care/Home Management, Sensory Integration,Soft Tissue Mobilization,Taping, Therapeutic Activities, Therapeutic Exercises Modalities Cold Pack/Ice Massage,Electric Stimulation,Hot Packs, Infrared Therapy,Ultrasound Next Visit Focus/Plan Next Note Type Treatment Note Next Visit Plan Continue R >L hip abd strengthening. Next tx gluteal insertion clam shell supine hip ER bridging hold tandem and side stepping stab strengthening Continue per PT POC: STM at R SIJ as needed, Continue improved hip abd and glut fac to allow level pelvis and aligned knees during gait.
--- NOTE | 2021-05-15 16:14 | PT.OTN ---
Current Diagnoses Other symptoms and signs involving the musculoskeletal system (05/15/21) Physical Therapy Treatment Note PT-OP-A Visit Information Start: 01/22/21 11:36 Freq: Status: Active Protocol: Document 05/15/21 13:56 HH (Rec: 05/15/21 15:16 HH [id number]) Out-Patient Physical Therapy Visit Information Visit Information Visit Type Treatment Note Visit Note KX modifier next visit Visit Start Time 14:33 Visit Stop Time 15:15 Total Visit Minutes 42 Visit Number Number of USED CAR SALES SUPERVISOR Visits 0 PT-OP-B Current Condition Start: 01/22/21 11:36 Freq: Status: Active Protocol: Document 01/22/21 11:40 HH (Rec: 01/22/21 12:12 HH [email or web address]) Current Condition History of Current Condition Onset Date many years ago Current Complaints R hip weakness, decreased balance, difficulty in walking History of Current Condition Serenity is a 75yo female referred by Dr. Wilson evaluate for pelvic muscle weakness. She has been walking with an abnormal gait for many years with unknown cause. She had MRI which showed atrophy and fatty replacement of the right gluteus medius muscle. She leans towards R side when she walks and tends to caught with her L foot sometimes. Pt had 6 falls in last year and unable to walk for long distance d/t poor balance and fall risks. Pt does not have any recent back pain but had sciatica in the past but does not recall which leg. She denies any tingling and numbness and noticeable pain at this point. No sensation loss noted from Dr. Dallas note. Pt is very active and does her full body workout program 5x/ week. Prior Treatments and Tests EMG examination shows signficiant chronic denervation without active denervation restricted tot the R gluteus medius muscle. There is no evidence of myopathy in any of the muscle sampled. The decreased right peroneal motor amplitude is a nonspecific finding in isolation, but given the normal superficial peroneal sensory response, could indicate a chronic L5/S1 radiculopathy. MRI which showed atrophy and fatty replacement of the right gluteus medius muscle Treatment Goals Patient/Caregiver Goals 1. To normalize her gait pattern 2. to be able to walk a mile Personal Factors Other Personal Factors That May Effect 6 falls in last year. 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 I havent tripped as much lately Patient Reported Progress Improving PT-OP-D Balance Start: 01/22/21 11:36 Freq: Status: Active Protocol: Document 03/19/21 08:11 HH (Rec: 03/19/21 09:02 HH [id number]) Balance Tests Single Limb Standing Single Limb- Right 5,9 Single Limb- Left 16 x2 PT-OP-F Manual Assessment Start: 01/22/21 11:36 Freq: Status: Active Protocol: Document 01/22/21 11:40 HH (Rec: 01/22/21 12:12 HH [email or web address]) Manual Assessments Soft Tissue Assessment Soft Tissue Mobility Assessment hypertonicity noted at R SIJ, proximal gluteal max insertion reports of tingling sensation at lateral thigh with pressure at gluteus medius atrophy noted at R gluteal muscle group Joint Mobility Assessment Joint Mobility Assessment WFL PT-OP-G Mobility & Gait Start: 01/22/21 11:36 Freq: Status: Active Protocol: Document 01/22/21 11:40 HH (Rec: 01/22/21 12:12 HH [email or web address]) OP Gait Assessment Gait Deviations General Gait Pattern Decreased Stride Length, Decreased Feet Clearance, Lateral Trunk Lean Factors Limiting Gait Function Factors Limiting Gait Function Decreased Activity Tolerance, Decreased Strength,Poor Balance Comments Gait Comments +ve tredelenburg sign on R side during stance phase on REL. Mild knee valgus noted on R knee as well. PT-OP-H Neuro Start: 01/22/21 11:36 Freq: Status: Active Protocol: Document 01/22/21 11:40 HH (Rec: 01/22/21 12:12 HH [email or web address]) Sensation Evaluation Gross Sensation Gross Sensation WNL Deep Tendon Reflex & Clonus Assessment Deep Tendon Reflex Bilateral Achilles Deep Tendon Reflex 2+ Normal Bilateral Patellar Deep Tendon Reflex 2+ Normal PT-OP-J Posture/Palpation/Skin Start: 01/22/21 11:36 Freq: Status: Active Protocol: Document 01/22/21 11:40 HH (Rec: 01/22/21 12:12 HH [email or web address]) Posture Evaluation Position Standing Weight Distribution Weight Shifted Left,Decreased Wt.Bear on (R) PT-OP-K Range of Motion Start: 01/22/21 11:36 Freq: Status: Active Protocol: Document 04/09/21 12:10 HH (Rec: 04/09/21 12:10 HH [id number]) Shoulder Goniometric Range of Motion Shoulder Left Active Shoulder ROM WFL No Comments unable to engage AROM d/t significant pain at L shoulder PROM ~ 100 degrees for both flexion and abduction with minimal pain. PT-OP-L Special Tests Start: 01/22/21 11:36 Freq: Status: Active Protocol: Document 01/22/21 11:40 HH (Rec: 01/22/21 12:12 [email or web address]) Special Tests Hip Special Tests Piriformis Test Results -ve Scour Test Test Results -ve FLACO Test Results -ve Trendelenberg Test Results +R Comments significant R lateral trunk lean and L hip drop during stance phase of RLE PT-OP-M Strength Start: 01/22/21 11:36 Freq: Status: Active Protocol: Document 03/19/21 08:11 HH (Rec: 03/19/21 09:02 [id number]) Hip Strength Hip Manual Muscle Testing Right Flexion (L2) 3+ Fair+ Extension (S1) 3+ Fair+ Abduction 2 Poor Adduction 4- Good- External Rotation 4 Good Internal Rotation 3+ Fair+ Left Flexion (L2) 4+ Good+ Extension (S1) 4+ Good+ Abduction 4+ Good+ Adduction 4+ Good+ External Rotation 4 Good Internal Rotation 4- Good- PT-OP-Q Treatments Start: 01/22/21 11:36 Freq: Status: Active Protocol: Document 05/15/21 13:56 HH (Rec: 05/15/21 15:16 HH [id number]) Gym Equipment Shuttle Recovery SL squat Details good effort, cued knee alignment glut/quad facilitation Resistance 37# Shuttle Recovery Platform Stable Reps/Time 2x15 Therapeutic Exercises Supine Exercises SLR Supine Exercise Name toe pointed to ceiling Side bilateral Reps/Minutes 10 x2 Comments no pain supine hip abduction Supine Exercise Name keep feet // Side bilateral Reps/Minutes 10 x2 bridge Side bilateral Resistance balance disc under feet Reps/Minutes x20 Comments cued PPT and core fac, not arch mid back Standing Exercises step up Standing Exercise Name with UE support Equipment Used 6step on L, 4 on R Reps/Minutes 8 x2 Gait Training Gait Activity SPC Device Used SPC Level of Assistance SBA Surface ground level, front mirror self feedback Distance/Duration 40 x6 Treatment Focus on 2 point pattern Comments reciprocal pattern encouraged. cued heel toe and eversion awareness noted reduced R knee valgus and toe drag PT-OP-T Assessment and Plan Start: 01/22/21 11:36 Freq: Status: Active Protocol: Document 05/15/21 13:56 HH (Rec: 05/15/21 15:16 [id number]) Physical Therapy Assessment Goals falls Impairment pt has had 2 falls within 1 month Short Term Goal (STG) pt will show improved balance and gait mechanics (less toe drag) so she will not fall again for the next 2 months STG Duration 4 weeks balance Impairment pt does has have single leg balance on RLE Short Term Goal (STG) pt will improve her R single leg balance by 4 seconds to improve her gait stability. 03/19 met pt able to stand on RLE 5-9 seconds with R lateral trunk lean 03/19 STG Duration 5 weeks Ship Manager Goal (LTG) 04/09 unable to assess d/t her recent fall pt will improve her R single leg balance by 8 seconds to improve her gait stability. LTG Duration 10 weeks activity tolerance Impairment pt cannot walk for long distance Short Term Goal (STG) pt will be able to complete a 0.5 walk 3 times a week without increase in discomfort . 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 03/19 STG Duration 5 weeks Care Home Goal (LTG) pt will be able to complete a mile walk 3 times a week without increase in discomfort . LTG Duration 10 weeks strength Impairment pt has 2/5 muscle strength at R hip abduction Short Term Goal (STG) Pt will gain 1 MMT grade on her R hip abduction to improve her gait mechanics. 04/09 pt able to complete 10 times clamshell x2 sets iso 2 second hold for SL hip abduction STG Duration 5 weeks Care Home Goal (LTG) Pt will gain 2 MMT grade on her R hip abduction to improve her trendelenburg sign during gait. LTG Duration 10 weeks LEFS Impairment pt scores 56 on LEFS Short Term Goal (STG) 03/19 pt scores 48 after her fall 1.5 weeks ago.. Ship Manager Goal (LTG) pt will score 65 on LEFS to improve her overall and mobility and strength. LTG Duration 10 weeks Assessment Summary Assessment pt has shown improved trunk stability, hip overall strength since her last fall. Continue to practice gait training with SPC and she is getting more comfortable with improved gait quality. Physical Therapy Plan Frequency and Duration Frequency of Treatment 2x/Week Duration of Treatment 8 weeks Plan of Care Start Date 04/09/21 Plan of Care End Date 06/08/21 Therapeutic Interventions Therapeutic Interventions Aquatic Therapy,Balance Training,Gait Training,Home Exercise Program,Joint Mobilizations,Manual Therapy, Neuromuscular Re-education, Patient/Caregiver Education, Self-Care/Home Management, Sensory Integration,Soft Tissue Mobilization,Taping, Therapeutic Activities, Therapeutic Exercises Modalities Cold Pack/Ice Massage,Electric Stimulation,Hot Packs, Infrared Therapy,Ultrasound Next Visit Focus/Plan Next Note Type Treatment Note Next Visit Plan Continue R >L hip abd strengthening. Next tx gluteal insertion clam shell supine hip ER bridging hold tandem and side stepping stab strengthening Continue per PT POC: STM at R SIJ as needed, Continue improved hip abd and glut fac to allow level pelvis and aligned knees during gait.
--- NOTE | 2021-05-18 10:35 | PT.OTN ---
Current Diagnoses Other symptoms and signs involving the musculoskeletal system (05/18/21) Physical Therapy Treatment Note PT-OP-A Visit Information Start: 01/22/21 11:36 Freq: Status: Active Protocol: Document 05/18/21 09:55 MA (Rec: 05/18/21 10:34 MA [id number]) Out-Patient Physical Therapy Visit Information Visit Information Visit Type Treatment Note Visit Start Time 09:50 Visit Stop Time 10:30 Total Visit Minutes 40 Visit Number Number of PARTITION ASSEMBLY MACHINE OPERATOR Visits 1 PT-OP-B Current Condition Start: 01/22/21 11:36 Freq: Status: Active Protocol: Document 01/22/21 11:40 HH (Rec: 01/22/21 12:12 HH [email or web address]) Current Condition History of Current Condition Onset Date many years ago Current Complaints R hip weakness, decreased balance, difficulty in walking History of Current Condition Serenity is a 75yo female referred by Dr. Wilson evaluate for pelvic muscle weakness. She has been walking with an abnormal gait for many years with unknown cause. She had MRI which showed atrophy and fatty replacement of the right gluteus medius muscle. She leans towards R side when she walks and tends to caught with her L foot sometimes. Pt had 6 falls in last year and unable to walk for long distance d/t poor balance and fall risks. Pt does not have any recent back pain but had sciatica in the past but does not recall which leg. She denies any tingling and numbness and noticeable pain at this point. No sensation loss noted from Dr. Dallas note. Pt is very active and does her full body workout program 5x/ week. Prior Treatments and Tests EMG examination shows signficiant chronic denervation without active denervation restricted tot the R gluteus medius muscle. There is no evidence of myopathy in any of the muscle sampled. The decreased right peroneal motor amplitude is a nonspecific finding in isolation, but given the normal superficial peroneal sensory response, could indicate a chronic L5/S1 radiculopathy. MRI which showed atrophy and fatty replacement of the right gluteus medius muscle Treatment Goals Patient/Caregiver Goals 1. To normalize her gait pattern 2. to be able to walk a mile Personal Factors Other Personal Factors That May Effect 6 falls in last year. 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) PT-OP-C Subjective Start: 01/22/21 11:36 Freq: Status: Active Protocol: Document 05/18/21 09:55 MA (Rec: 05/18/21 10:34 MA [id number]) OP-PT Subjective Patient Comments Patient Comments Pt has bruise on L cheeck from fall in March PT-OP-D Balance Start: 01/22/21 11:36 Freq: Status: Active Protocol: Document 03/19/21 08:11 HH (Rec: 03/19/21 09:02 HH [id number]) Balance Tests Single Limb Standing Single Limb- Right 5,9 Single Limb- Left 16 x2 PT-OP-F Manual Assessment Start: 01/22/21 11:36 Freq: Status: Active Protocol: Document 01/22/21 11:40 HH (Rec: 01/22/21 12:12 HH [email or web address]) Manual Assessments Soft Tissue Assessment Soft Tissue Mobility Assessment hypertonicity noted at R SIJ, proximal gluteal max insertion reports of tingling sensation at lateral thigh with pressure at gluteus medius atrophy noted at R gluteal muscle group Joint Mobility Assessment Joint Mobility Assessment WFL PT-OP-G Mobility & Gait Start: 01/22/21 11:36 Freq: Status: Active Protocol: Document 01/22/21 11:40 HH (Rec: 01/22/21 12:12 HH [email or web address]) OP Gait Assessment Gait Deviations General Gait Pattern Decreased Stride Length, Decreased Feet Clearance, Lateral Trunk Lean Factors Limiting Gait Function Factors Limiting Gait Function Decreased Activity Tolerance, Decreased Strength,Poor Balance Comments Gait Comments +ve tredelenburg sign on R side during stance phase on REL. Mild knee valgus noted on R knee as well. PT-OP-H Neuro Start: 01/22/21 11:36 Freq: Status: Active Protocol: Document 01/22/21 11:40 HH (Rec: 01/22/21 12:12 HH [email or web address]) Sensation Evaluation Gross Sensation Gross Sensation WNL Deep Tendon Reflex & Clonus Assessment Deep Tendon Reflex Bilateral Achilles Deep Tendon Reflex 2+ Normal Bilateral Patellar Deep Tendon Reflex 2+ Normal PT-OP-J Posture/Palpation/Skin Start: 01/22/21 11:36 Freq: Status: Active Protocol: Document 01/22/21 11:40 HH (Rec: 01/22/21 12:12 HH [email or web address]) Posture Evaluation Position Standing Weight Distribution Weight Shifted Left,Decreased Wt.Bear on (R) PT-OP-K Range of Motion Start: 01/22/21 11:36 Freq: Status: Active Protocol: Document 04/09/21 12:10 HH (Rec: 04/09/21 12:10 HH [id number]) Shoulder Goniometric Range of Motion Shoulder Left Active Shoulder ROM WFL No Comments unable to engage AROM d/t significant pain at L shoulder PROM ~ 100 degrees for both flexion and abduction with minimal pain. PT-OP-L Special Tests Start: 01/22/21 11:36 Freq: Status: Active Protocol: Document 01/22/21 11:40 HH (Rec: 01/22/21 12:12 HH [email or web address]) Special Tests Hip Special Tests Piriformis Test Results -ve Scour Test Test Results -ve FLACO Test Results -ve Trendelenberg Test Results +R Comments significant R lateral trunk lean and L hip drop during stance phase of RLE PT-OP-M Strength Start: 01/22/21 11:36 Freq: Status: Active Protocol: Document 03/19/21 08:11 HH (Rec: 03/19/21 09:02 [id number]) Hip Strength Hip Manual Muscle Testing Right Flexion (L2) 3+ Fair+ Extension (S1) 3+ Fair+ Abduction 2 Poor Adduction 4- Good- External Rotation 4 Good Internal Rotation 3+ Fair+ Left Flexion (L2) 4+ Good+ Extension (S1) 4+ Good+ Abduction 4+ Good+ Adduction 4+ Good+ External Rotation 4 Good Internal Rotation 4- Good- PT-OP-Q Treatments Start: 01/22/21 11:36 Freq: Status: Active Protocol: Document 05/18/21 09:55 MA (Rec: 05/18/21 10:34 MA [id number]) Gym Equipment Shuttle Recovery B squat Resistance 62# Shuttle Recovery Platform Unstable Reps/Time x30 SL squat Details good effort, cued knee alignment glut/quad facilitation Resistance 37# Shuttle Recovery Platform Stable Reps/Time 2x20 Therapeutic Exercises Supine Exercises SLR Supine Exercise Name toe pointed to ceiling Side bilateral Reps/Minutes 10 x2 Comments no pain bridge Side bilateral Resistance #3 TB loop Reps/Minutes x20 Comments cued PPT and core fac, not arch mid back Sidelying Exercises clamshell Side bilateral Reps/Minutes 10 #3 TB Comments good pacing control Sitting Exercises Stretch Sitting Exercise Name HS stretch Side bilateral Reps/Minutes 30 SH hip IR/ER stretch Side bilateral Reps/Minutes 30 Standing Exercises marching in place Standing Exercise Name in place controlling movement Side bilateral Equipment Used counter Comments cues with R knee extension hip ext Side bilateral Resistance AROM Equipment Used at rail, light contact during LLE ext Reps/Minutes 10 x 2 Comments cue on R TKE; avoiding adduction of LLE Gait Training Gait Activity SPC Device Used SPC Level of Assistance SBA Surface ground level, front mirror self feedback Distance/Duration 40 x6 Treatment Focus on 2 point pattern Comments reciprocal pattern encouraged. cued heel toe and eversion awareness noted reduced R knee valgus and toe drag PT-OP-T Assessment and Plan Start: 01/22/21 11:36 Freq: Status: Active Protocol: Document 05/18/21 09:55 MA (Rec: 05/18/21 10:34 MA [id number]) Physical Therapy Assessment Goals falls Impairment pt has had 2 falls within 1 month Short Term Goal (STG) pt will show improved balance and gait mechanics (less toe drag) so she will not fall again for the next 2 months STG Duration 4 weeks balance Impairment pt does has have single leg balance on RLE Short Term Goal (STG) pt will improve her R single leg balance by 4 seconds to improve her gait stability. 03/19 met pt able to stand on RLE 5-9 seconds with R lateral trunk lean 03/19 STG Duration 5 weeks Carriage Feeder Goal (LTG) 04/09 unable to assess d/t her recent fall pt will improve her R single leg balance by 8 seconds to improve her gait stability. LTG Duration 10 weeks activity tolerance Impairment pt cannot walk for long distance Short Term Goal (STG) pt will be able to complete a 0.5 walk 3 times a week without increase in discomfort . 03/19 pt started to workout with her guide dog trainer for a week but she just fell recnetly so she stopped her ex routine. 03/19 STG Duration 5 weeks Carriage Feeder Goal (LTG) pt will be able to complete a mile walk 3 times a week without increase in discomfort . LTG Duration 10 weeks strength Impairment pt has 2/5 muscle strength at R hip abduction Short Term Goal (STG) Pt will gain 1 MMT grade on her R hip abduction to improve her gait mechanics. 04/09 pt able to complete 10 times clamshell x2 sets iso 2 second hold for SL hip abduction STG Duration 5 weeks Carriage Feeder Goal (LTG) Pt will gain 2 MMT grade on her R hip abduction to improve her trendelenburg sign during gait. LTG Duration 10 weeks LEFS Impairment pt scores 56 on LEFS Short Term Goal (STG) 03/19 pt scores 48 after her fall 1.5 weeks ago.. Carriage Feeder Goal (LTG) pt will score 65 on LEFS to improve her overall and mobility and strength. LTG Duration 10 weeks Assessment Summary Assessment Pt arrives walking improperly with cane. After gait activity , pt is able to step reciprocally with two pt gait. She needs cues for posture throughout exercises or will flex trunk to watch feet. During standing SL exercises, pt needs cues for TKE on R side and cues to avoid adducting LLE. She has most difficulty with standing marching due to RLE weakness causing balance impairments. Physical Therapy Plan Frequency and Duration Frequency of Treatment 2x/Week Duration of Treatment 8 weeks Plan of Care Start Date 04/09/21 Plan of Care End Date 06/08/21 Therapeutic Interventions Therapeutic Interventions Aquatic Therapy,Balance Training,Gait Training,Home Exercise Program,Joint Mobilizations,Manual Therapy, Neuromuscular Re-education, Patient/Caregiver Education, Self-Care/Home Management, Sensory Integration,Soft Tissue Mobilization,Taping, Therapeutic Activities, Therapeutic Exercises Modalities Cold Pack/Ice Massage,Electric Stimulation,Hot Packs, Infrared Therapy,Ultrasound Next Visit Focus/Plan Next Note Type Treatment Note Next Visit Plan Continue R >L hip abd strengthening. Next tx gluteal insertion clam shell supine hip ER bridging hold tandem and side stepping stab strengthening Continue per PT POC: STM at R SIJ as needed, Continue improved hip abd and glut fac to allow level pelvis and aligned knees during gait.
--- NOTE | 2021-05-23 12:58 | PT.OTN ---
Current Diagnoses Other symptoms and signs involving the musculoskeletal system (05/23/21) Physical Therapy Treatment Note PT-OP-A Visit Information Start: 01/22/21 11:36 Freq: Status: Active Protocol: Document 05/23/21 08:13 HH (Rec: 05/23/21 09:01 [id number]) Out-Patient Physical Therapy Visit Information Visit Information Visit Type Treatment Note Visit Note Pt brought in new shoes and cane Visit Start Time 08:18 Visit Stop Time 09:00 Total Visit Minutes 42 Visit Number Number of GEOPOLITICS TEACHER Visits 0 PT-OP-B Current Condition Start: 01/22/21 11:36 Freq: Status: Active Protocol: Document 01/22/21 11:40 HH (Rec: 01/22/21 12:12 HH [email or web address]) Current Condition History of Current Condition Onset Date many years ago Current Complaints R hip weakness, decreased balance, difficulty in walking History of Current Condition Serenity is a 75yo female referred by Dr. Wilson evaluate for pelvic muscle weakness. She has been walking with an abnormal gait for many years with unknown cause. She had MRI which showed atrophy and fatty replacement of the right gluteus medius muscle. She leans towards R side when she walks and tends to caught with her L foot sometimes. Pt had 6 falls in last year and unable to walk for long distance d/t poor balance and fall risks. Pt does not have any recent back pain but had sciatica in the past but does not recall which leg. She denies any tingling and numbness and noticeable pain at this point. No sensation loss noted from Dr. Dallas note. Pt is very active and does her full body workout program 5x/ week. Prior Treatments and Tests EMG examination shows signficiant chronic denervation without active denervation restricted tot the R gluteus medius muscle. There is no evidence of myopathy in any of the muscle sampled. The decreased right peroneal motor amplitude is a nonspecific finding in isolation, but given the normal superficial peroneal sensory response, could indicate a chronic L5/S1 radiculopathy. MRI which showed atrophy and fatty replacement of the right gluteus medius muscle Treatment Goals Patient/Caregiver Goals 1. To normalize her gait pattern 2. to be able to walk a mile Personal Factors Other Personal Factors That May Effect 6 falls in last year. 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) PT-OP-C Subjective Start: 01/22/21 11:36 Freq: Status: Active Protocol: Document 05/23/21 08:13 HH (Rec: 05/23/21 09:01 HH [id number]) OP-PT Subjective Patient Comments Patient Comments I bring my new shoes and cane in for adjustment Patient Reported Progress Improving PT-OP-D Balance Start: 01/22/21 11:36 Freq: Status: Active Protocol: Document 03/19/21 08:11 HH (Rec: 03/19/21 09:02 HH [id number]) Balance Tests Single Limb Standing Single Limb- Right 5,9 Single Limb- Left 16 x2 PT-OP-F Manual Assessment Start: 01/22/21 11:36 Freq: Status: Active Protocol: Document 01/22/21 11:40 HH (Rec: 01/22/21 12:12 HH [email or web address]) Manual Assessments Soft Tissue Assessment Soft Tissue Mobility Assessment hypertonicity noted at R SIJ, proximal gluteal max insertion reports of tingling sensation at lateral thigh with pressure at gluteus medius atrophy noted at R gluteal muscle group Joint Mobility Assessment Joint Mobility Assessment WFL PT-OP-G Mobility & Gait Start: 01/22/21 11:36 Freq: Status: Active Protocol: Document 01/22/21 11:40 HH (Rec: 01/22/21 12:12 HH [email or web address]) OP Gait Assessment Gait Deviations General Gait Pattern Decreased Stride Length, Decreased Feet Clearance, Lateral Trunk Lean Factors Limiting Gait Function Factors Limiting Gait Function Decreased Activity Tolerance, Decreased Strength,Poor Balance Comments Gait Comments +ve tredelenburg sign on R side during stance phase on REL. Mild knee valgus noted on R knee as well. PT-OP-H Neuro Start: 01/22/21 11:36 Freq: Status: Active Protocol: Document 01/22/21 11:40 HH (Rec: 01/22/21 12:12 HH [email or web address]) Sensation Evaluation Gross Sensation Gross Sensation WNL Deep Tendon Reflex & Clonus Assessment Deep Tendon Reflex Bilateral Achilles Deep Tendon Reflex 2+ Normal Bilateral Patellar Deep Tendon Reflex 2+ Normal PT-OP-J Posture/Palpation/Skin Start: 01/22/21 11:36 Freq: Status: Active Protocol: Document 01/22/21 11:40 HH (Rec: 01/22/21 12:12 HH [email or web address]) Posture Evaluation Position Standing Weight Distribution Weight Shifted Left,Decreased Wt.Bear on (R) PT-OP-K Range of Motion Start: 01/22/21 11:36 Freq: Status: Active Protocol: Document 04/09/21 12:10 HH (Rec: 04/09/21 12:10 [id number]) Shoulder Goniometric Range of Motion Shoulder Left Active Shoulder ROM WFL No Comments unable to engage AROM d/t significant pain at L shoulder PROM ~ 100 degrees for both flexion and abduction with minimal pain. PT-OP-L Special Tests Start: 01/22/21 11:36 Freq: Status: Active Protocol: Document 01/22/21 11:40 HH (Rec: 01/22/21 12:12 [email or web address]) Special Tests Hip Special Tests Piriformis Test Results -ve Scour Test Test Results -ve FLACO Test Results -ve Trendelenberg Test Results +R Comments significant R lateral trunk lean and L hip drop during stance phase of RLE PT-OP-M Strength Start: 01/22/21 11:36 Freq: Status: Active Protocol: Document 03/19/21 08:11 HH (Rec: 03/19/21 09:02 [id number]) Hip Strength Hip Manual Muscle Testing Right Flexion (L2) 3+ Fair+ Extension (S1) 3+ Fair+ Abduction 2 Poor Adduction 4- Good- External Rotation 4 Good Internal Rotation 3+ Fair+ Left Flexion (L2) 4+ Good+ Extension (S1) 4+ Good+ Abduction 4+ Good+ Adduction 4+ Good+ External Rotation 4 Good Internal Rotation 4- Good- PT-OP-Q Treatments Start: 01/22/21 11:36 Freq: Status: Active Protocol: Document 05/23/21 08:13 HH (Rec: 05/23/21 09:01 [id number]) Gym Equipment Shuttle Recovery SL squat Details good effort, cued knee alignment glut/quad facilitation Resistance 37# Shuttle Recovery Platform Stable Reps/Time 2x20 Therapeutic Exercises Supine Exercises SLR Supine Exercise Name toe pointed to ceiling Side bilateral Reps/Minutes 10 x2 Comments no pain supine hip abduction Supine Exercise Name keep feet // Side bilateral Reps/Minutes 10 x2 Standing Exercises cone tap Side bilateral Reps/Minutes 6 inches Comments for HEP hip ext Side bilateral Resistance AROM Equipment Used at rail, light contact during LLE ext Reps/Minutes 10 x 2 Comments cue on R TKE; avoiding adduction of LLE step up Standing Exercise Name with UE support Equipment Used 6step on L, 4 on R Reps/Minutes 8 x2 Comments for HEP Self-Care/Home Management Treatment Education Patient Education Body Mechanics,Home Exercise Program,Joint Protection,Pain Management,Safety Other Education adjusted pt's new cane for her height. explained to pt regarding his new shoes's features which provides more lateral stability during stance phase of gait cycle. PT-OP-T Assessment and Plan Start: 01/22/21 11:36 Freq: Status: Active Protocol: Document 05/23/21 08:13 (Rec: 05/23/21 09:01 [id number]) Physical Therapy Assessment Goals falls Impairment pt has had 2 falls within 1 month Short Term Goal (STG) pt will show improved balance and gait mechanics (less toe drag) so she will not fall again for the next 2 months STG Duration 4 weeks balance Impairment pt does has have single leg balance on RLE Short Term Goal (STG) pt will improve her R single leg balance by 4 seconds to improve her gait stability. 03/19 met pt able to stand on RLE 5-9 seconds with R lateral trunk lean 03/19 STG Duration 5 weeks Typesetting Machine Operator/Tender Goal (LTG) 04/09 unable to assess d/t her recent fall pt will improve her R single leg balance by 8 seconds to improve her gait stability. LTG Duration 10 weeks activity tolerance Impairment pt cannot walk for long distance Short Term Goal (STG) pt will be able to complete a 0.5 walk 3 times a week without increase in discomfort . 03/19 pt started to workout with her operational trainer for a week but she just fell recnetly so she stopped her ex routine. 03/19 STG Duration 5 weeks Typesetting Machine Operator/Tender Goal (LTG) pt will be able to complete a mile walk 3 times a week without increase in discomfort . LTG Duration 10 weeks strength Impairment pt has 2/5 muscle strength at R hip abduction Short Term Goal (STG) Pt will gain 1 MMT grade on her R hip abduction to improve her gait mechanics. 04/09 pt able to complete 10 times clamshell x2 sets iso 2 second hold for SL hip abduction STG Duration 5 weeks Typesetting Machine Operator/Tender Goal (LTG) Pt will gain 2 MMT grade on her R hip abduction to improve her trendelenburg sign during gait. LTG Duration 10 weeks LEFS Impairment pt scores 56 on LEFS Short Term Goal (STG) 03/19 pt scores 48 after her fall 1.5 weeks ago.. Retirement Goal (LTG) pt will score 65 on LEFS to improve her overall and mobility and strength. LTG Duration 10 weeks Assessment Summary Assessment pt brought in new shoes and cane today. Completed adjustment and fitting for her and pt does show improved gait quality and balance. Discussed with pt regarding getting discharged after next visit since pt continues to have shoulder pain and limited ROM & strength after her fall in March. I recommended her to start rehab on her shoulder somewhere in May. Physical Therapy Plan Frequency and Duration Frequency of Treatment 2x/Week Duration of Treatment 8 weeks Plan of Care Start Date 04/09/21 Plan of Care End Date 06/08/21 Therapeutic Interventions Therapeutic Interventions Aquatic Therapy,Balance Training,Gait Training,Home Exercise Program,Joint Mobilizations,Manual Therapy, Neuromuscular Re-education, Patient/Caregiver Education, Self-Care/Home Management, Sensory Integration,Soft Tissue Mobilization,Taping, Therapeutic Activities, Therapeutic Exercises Modalities Cold Pack/Ice Massage,Electric Stimulation,Hot Packs, Infrared Therapy,Ultrasound Next Visit Focus/Plan Next Note Type Treatment Note Next Visit Plan review her HEP continue balance , SL stability work
--- NOTE | 2021-05-25 09:46 | PT.OTN ---
Current Diagnoses Other symptoms and signs involving the musculoskeletal system (05/25/21) Physical Therapy Treatment Note PT-OP-A Visit Information Start: 01/22/21 11:36 Freq: Status: Active Protocol: Document 05/25/21 09:03 SP (Rec: 05/25/21 11:56 SP [id number]) Out-Patient Physical Therapy Visit Information Visit Information Visit Type Treatment Note Visit Note Pt brought in new shoes and cane to check proper fit/ height. Visit Start Time 09:03 Visit Stop Time 09:46 Total Visit Minutes 43 Visit Number Number of BODY TRIMMER Visits 1 Evaluation Information Evaluation Date 01/22/21 Precautions Precautions 6 falls in last year. depression PT-OP-B Current Condition Start: 01/22/21 11:36 Freq: Status: Active Protocol: Document 01/22/21 11:40 HH (Rec: 01/22/21 12:12 HH [email or web address]) Current Condition History of Current Condition Onset Date many years ago Current Complaints R hip weakness, decreased balance, difficulty in walking History of Current Condition Serenity is a 75yo female referred by Dr. Wilson evaluate for pelvic muscle weakness. She has been walking with an abnormal gait for many years with unknown cause. She had MRI which showed atrophy and fatty replacement of the right gluteus medius muscle. She leans towards R side when she walks and tends to caught with her L foot sometimes. Pt had 6 falls in last year and unable to walk for long distance d/t poor balance and fall risks. Pt does not have any recent back pain but had sciatica in the past but does not recall which leg. She denies any tingling and numbness and noticeable pain at this point. No sensation loss noted from Dr. Dallas note. Pt is very active and does her full body workout program 5x/ week. Prior Treatments and Tests EMG examination shows signficiant chronic denervation without active denervation restricted tot the R gluteus medius muscle. There is no evidence of myopathy in any of the muscle sampled. The decreased right peroneal motor amplitude is a nonspecific finding in isolation, but given the normal superficial peroneal sensory response, could indicate a chronic L5/S1 radiculopathy. MRI which showed atrophy and fatty replacement of the right gluteus medius muscle Treatment Goals Patient/Caregiver Goals 1. To normalize her gait pattern 2. to be able to walk a mile Personal Factors Other Personal Factors That May Effect 6 falls in last year. 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) PT-OP-C Subjective Start: 01/22/21 11:36 Freq: Status: Active Protocol: Document 05/25/21 09:03 SP (Rec: 05/25/21 11:56 SP [id number]) OP-PT Subjective Patient Comments Patient Comments I brought my shoes and ew cane. I want to briefly review new standing ex then rest of HEP for I. Today will be my last day for this referral then will make appt to see [facility] for new shoulder referral. Patient Reported Progress Improving PT-OP-D Balance Start: 01/22/21 11:36 Freq: Status: Active Protocol: Document 03/19/21 08:11 HH (Rec: 03/19/21 09:02 HH [id number]) Balance Tests Single Limb Standing Single Limb- Right 5,9 Single Limb- Left 16 x2 PT-OP-F Manual Assessment Start: 01/22/21 11:36 Freq: Status: Active Protocol: Document 01/22/21 11:40 HH (Rec: 01/22/21 12:12 HH [email or web address]) Manual Assessments Soft Tissue Assessment Soft Tissue Mobility Assessment hypertonicity noted at R SIJ, proximal gluteal max insertion reports of tingling sensation at lateral thigh with pressure at gluteus medius atrophy noted at R gluteal muscle group Joint Mobility Assessment Joint Mobility Assessment WFL PT-OP-G Mobility & Gait Start: 01/22/21 11:36 Freq: Status: Active Protocol: Document 01/22/21 11:40 HH (Rec: 01/22/21 12:12 HH [email or web address]) OP Gait Assessment Gait Deviations General Gait Pattern Decreased Stride Length, Decreased Feet Clearance, Lateral Trunk Lean Factors Limiting Gait Function Factors Limiting Gait Function Decreased Activity Tolerance, Decreased Strength,Poor Balance Comments Gait Comments +ve tredelenburg sign on R side during stance phase on REL. Mild knee valgus noted on R knee as well. PT-OP-H Neuro Start: 01/22/21 11:36 Freq: Status: Active Protocol: Document 01/22/21 11:40 HH (Rec: 01/22/21 12:12 HH [email or web address]) Sensation Evaluation Gross Sensation Gross Sensation WNL Deep Tendon Reflex & Clonus Assessment Deep Tendon Reflex Bilateral Achilles Deep Tendon Reflex 2+ Normal Bilateral Patellar Deep Tendon Reflex 2+ Normal PT-OP-J Posture/Palpation/Skin Start: 01/22/21 11:36 Freq: Status: Active Protocol: Document 01/22/21 11:40 HH (Rec: 01/22/21 12:12 HH [email or web address]) Posture Evaluation Position Standing Weight Distribution Weight Shifted Left,Decreased Wt.Bear on (R) PT-OP-K Range of Motion Start: 01/22/21 11:36 Freq: Status: Active Protocol: Document 04/09/21 12:10 HH (Rec: 04/09/21 12:10 HH [id number]) Shoulder Goniometric Range of Motion Shoulder Left Active Shoulder ROM WFL No Comments unable to engage AROM d/t significant pain at L shoulder PROM ~ 100 degrees for both flexion and abduction with minimal pain. PT-OP-L Special Tests Start: 01/22/21 11:36 Freq: Status: Active Protocol: Document 01/22/21 11:40 HH (Rec: 01/22/21 12:12 [email or web address]) Special Tests Hip Special Tests Piriformis Test Results -ve Scour Test Test Results -ve FLACO Test Results -ve Trendelenberg Test Results +R Comments significant R lateral trunk lean and L hip drop during stance phase of RLE PT-OP-M Strength Start: 01/22/21 11:36 Freq: Status: Active Protocol: Document 03/19/21 08:11 HH (Rec: 03/19/21 09:02 HH [id number]) Hip Strength Hip Manual Muscle Testing Right Flexion (L2) 3+ Fair+ Extension (S1) 3+ Fair+ Abduction 2 Poor Adduction 4- Good- External Rotation 4 Good Internal Rotation 3+ Fair+ Left Flexion (L2) 4+ Good+ Extension (S1) 4+ Good+ Abduction 4+ Good+ Adduction 4+ Good+ External Rotation 4 Good Internal Rotation 4- Good- PT-OP-Q Treatments Start: 01/22/21 11:36 Freq: Status: Active Protocol: Document 05/25/21 09:03 SP (Rec: 05/25/21 11:56 SP [id number]) Therapeutic Exercises Standing Exercises cone tap Side bilateral Equipment Used rail contact Reps/Minutes 6 inches bottom step Comments for HEP hip ext Side bilateral Resistance AROM Equipment Used at rail, light contact during LLE ext Reps/Minutes 10 x 2 Comments cue on R TKE; avoiding adduction of LLE step up Standing Exercise Name with UE support Equipment Used 6step on L, 4 on R Reps/Minutes 8 x2 Comments for HEP standing hip abd Standing Exercise Name hep review Side bilateral Resistance AROM Equipment Used at rail Reps/Minutes x10 reps no contact L SLS, x6- 8 R SLS mod UE support Comments tactile cue on RTKE Gait Training Gait Activity SPC Device Used SPC Level of Assistance SBA Surface ground level, front mirror self feedback Distance/Duration 40 x3 Treatment Focus on 2 point pattern Comments reciprocal pattern encouraged. cued heel toe and eversion awareness noted reduced R knee valgus and toe drag side step Description with UE support Device Used w/ SPC L and R Surface ground level, mirror with cues for level pelvis and hip abd fac. Treatment Focus R>L hip glut/ hip abd fac for normalizing level pelvis gait Comments cued R glut and quad and hip ER stair mgt Description ascend/ descend Device Used 1 HR Level of Assistance S Distance/Duration 4 steps x3 sets Comments improved decreased valgus w/ cues for space between B knees . PT-OP-T Assessment and Plan Start: 01/22/21 11:36 Freq: Status: Active Protocol: Document 05/25/21 09:03 SP (Rec: 05/25/21 11:56 SP [id number]) Physical Therapy Assessment Goals falls Impairment pt has had 2 falls within 1 month Short Term Goal (STG) pt will show improved balance and gait mechanics (less toe drag) so she will not fall again for the next 2 months 05/25/21: no falls , does have occasional toe catching floor but is more aware of foot clearance. STG Duration 4 weeks GOAL MET 05/25/21 balance Impairment pt does has have single leg balance on RLE Short Term Goal (STG) pt will improve her R single leg balance by 4 seconds to improve her gait stability. 03/19 met pt able to stand on RLE 5-9 seconds with R lateral trunk lean 05/25/21: unable without UE heavy support. STG Duration 5 weeks PROGRESSING 05/25/21 Book Sewer Goal (LTG) 04/09 unable to assess d/t her recent fall pt will improve her R single leg balance by 8 seconds to improve her gait stability. LTG Duration 10 weeks activity tolerance Impairment pt cannot walk for long distance Short Term Goal (STG) pt will be able to complete a 0.5 walk 3 times a week without increase in discomfort . 04/28/21: can do the .5 mile walk without discomfort mostly . 03/19 pt started to workout with her guide dog trainer for a week but she just fell recnetly so she stopped her ex routine. 03/19 STG Duration 5 WEEKS Goals met 05/25/21 Assisted Goal (LTG) pt will be able to complete a mile walk 3 times a week without increase in discomfort . LTG Duration 10 weeks strength Impairment pt has 2/5 muscle strength at R hip abduction Short Term Goal (STG) Pt will gain 1 MMT grade on her R hip abduction to improve her gait mechanics. 04/09 pt able to complete 10 times clamshell x2 sets iso 2 second hold for SL hip abduction STG Duration 5 weeks Book Sewer Goal (LTG) Pt will gain 2 MMT grade on her R hip abduction to improve her trendelenburg sign during gait. LTG Duration 10 weeks LEFS Impairment pt scores 56 on LEFS Short Term Goal (STG) 03/19 pt scores 48 after her fall 1.5 weeks ago.. Assisted Goal (LTG) pt will score 65 on LEFS to improve her overall and mobility and strength. 05/25/21: progressing 26 this date. LTG Duration 10 weeks progressing 05/25/21 Assessment Summary Assessment Pt worked hard on standing exercises today cued for level pelvis and hip glut facilitation that carrys over during gait using SPC in LUE to support RLE than without AD . Mirror use today was helpful in self awareness of compenstations making and how to perform self corrections. Pt will DC to [facility] and has new referral for Lo bhakta to start when [facility] PT returns. Physical Therapy Plan Frequency and Duration Frequency of Treatment 2x/Week Duration of Treatment 8 weeks Plan of Care Start Date 04/09/21 Plan of Care End Date 06/08/21 Therapeutic Interventions Therapeutic Interventions Aquatic Therapy,Balance Training,Gait Training,Home Exercise Program,Joint Mobilizations,Manual Therapy, Neuromuscular Re-education, Patient/Caregiver Education, Self-Care/Home Management, Sensory Integration,Soft Tissue Mobilization,Taping, Therapeutic Activities, Therapeutic Exercises Modalities Cold Pack/Ice Massage,Electric Stimulation,Hot Packs, Infrared Therapy,Ultrasound Discharge Physical Therapy Discharge Reasons Patient Request Discharge Comments DC current referral, continue on own with [facility]. Will return with new referral to start PT on shoulder in May. Next Visit Focus/Plan Next Note Type Treatment Note Next Visit Plan DC
--- NOTE | 2021-06-11 08:50 | PT.OPDS ---
Current Diagnoses Other symptoms and signs involving the musculoskeletal system (05/25/21) Visit Care Team Role Provider Type Joshua Chin MD Family Provider Physician Primary Care Provider Specialty: Internal Medicine Address: [address] [place] [address] [address], [place], [address] Email: [email or web address] Tavon Wilson MD Attending Provider Non-Staff Referring Provider Specialty: Psychiatry Address: [address] [place] [address], [facility] [address], [place], [address] Email: Visit Number Visit Number Discharge Summary PT-OP-T Assessment and Plan Start: 01/22/21 11:36 Freq: Status: Active Protocol: Document 06/11/21 08:48 HH (Rec: 06/11/21 08:50 HH [email or web address]) Physical Therapy Plan Discharge Physical Therapy Discharge Reasons Plateau in Progress Discharge Comments pt reached plateau with her rehab for gait, balance and hip strength. Pt also got a referral for her shoulder d/t a fall from 2 months ago. Pt agreed to DC from PT for her hip and will have a new eval on 06/18 for her shoulder.
== END 2021-06-11 10:44 | disposition home or self-care (01) ==
LOC: PHYS 09:00
PROVIDERS: Family Provider Internal Medicine; PCP Internal Medicine; Referring Provider Internal Medicine; Visit Provider Internal Medicine
DX: R29.898 Other symptoms and signs involving the musculoskeletal system (principal)
CPT/HCPCS: 97110; 97116; 97140; 97161; 97535

== ENCOUNTER → 2021-07-19 14:07 | Outpatient (CLI) | payer MEDICARE, OTHER, SELFPAY ==
--- NOTE | 2021-07-19 | DI.CT.S_ITS ---
PROCEDURE: CT FACIAL BONES WO CON INDICATIONS: facial pain TECHNIQUE: Noncontrast 2.5 mm thick axial images acquired from the mandible through the frontal sinuses, with coronal and sagittal reformatting. For radiation dose reduction, the following was used: automated exposure control, adjustment of mA and/or kV according to patient size. COMPARISON: [facility], CT, CT HEAD/BRAIN WO CON, 12/13/2020, 17:38. FINDINGS: Image quality: Excellent. Bones and teeth: Orbital gray are intact. Sinus gray show no fracture or deformity. Nasal bones and septum are intact. Visualized portions of the mandible demonstrate no fractures or subluxation. Zygomatic arches are intact. Pterygoid plates are intact. Visualized portions of the skull base and auditory canals are intact. Sinuses: Paranasal sinuses are aerated, without fluid levels, mucosal thickening, or mucoceles. Mastoid air cells are aerated. Surgical screw is noted traversing at the base of the right maxillary sinus. Soft tissues: No edema, masses, or fluid collections. No enlarged lymph nodes. No soft tissue lacerations or debris. Vascular: Visualized vascular structures appear normal in the absence of contrast. Bony vascular foramina and canals are intact. IMPRESSION: 1. No mass lesions. 2. Surgical screw is noted at the base of the right maxillary sinus of indeterminate age. No priors are available for comparison. No surrounding hardware fracture or loosening. Dictated by: Maggy Reeder M.D. on 07/19/2021 at 15:55 Approved by: Maggy Reeder M.D. on 07/19/2021 at 15:58
== END ==
PROVIDERS: PCP Internal Medicine; Referring Provider Internal Medicine; Visit Provider Internal Medicine
DX: G50.1 Atypical facial pain (principal); R51.9 Headache, unspecified
CPT/HCPCS: 70486

== ENCOUNTER → 2021-07-24 15:09 | Outpatient (CLI) | payer MEDICARE, OTHER, SELFPAY ==
--- NOTE | 2021-07-24 | DI.RAD.S_ITS ---
PROCEDURE: XR DEXA AXIAL SKELETON INDICATIONS: Nondisplaced fracture of fifth metatarsal bone COMPARISON: None. FINDINGS: This blank DEXA report has been sent in error by the PACS system. The correct and complete report will be forthcoming in 1-2 days. Thank you for your patience and understanding. Dictated by: Traci Aldrich MD, PhD on 07/24/2021 at 16:00 Approved by: Traci Aldrich MD, PhD on 07/24/2021 at 16:00
== END ==
PROVIDERS: PCP Internal Medicine; Referring Provider Orthopaedic Surgery Foot and Ankle Surgery; Visit Provider Orthopaedic Surgery Foot and Ankle Surgery
DX: M85.852 Other specified disorders of bone density and structure, left thigh (principal); Z78.0 Asymptomatic menopausal state; S92.355A Nondisplaced fracture of fifth metatarsal bone, left foot, initial encounter for closed fracture; Z82.62 Family history of osteoporosis
CPT/HCPCS: 77080

== ENCOUNTER → 2021-12-11 10:06 | Outpatient (CLI) | payer MEDICARE, OTHER, SELFPAY | PROVIDERS: PCP Internal Medicine; Visit Provider Urology | DX: R30.0 Dysuria (principal); N39.41 Urge incontinence; R35.0 Frequency of micturition; N32.81 Overactive bladder | CPT/HCPCS: 51798; 81002; 87077; 87086; 87186; 99213 ==

== ENCOUNTER → 2021-12-19 08:26 | Outpatient (CLI) | payer MEDICARE, OTHER, SELFPAY ==
--- NOTE | 2021-12-19 | DI.MG.S_ITS ---
BILATERAL DIGITAL SCREENING MAMMOGRAM 3D/2D WITH CAD: 12/19/2021 CLINICAL: Routine screening. Family history of breast cancer. Comparison is made to exams dated: 12/06/2020 mammogram, 11/30/2019 mammogram, and 10/14/2018 mammogram - [facility]. The tissue of both breasts is extremely dense, which lowers the sensitivity of mammography. Current study was also evaluated with a Computer Aided Detection (CAD) system. No significant masses, calcifications, or other findings are seen in either breast. There has been no significant interval change. IMPRESSION: NEGATIVE There is no mammographic evidence of malignancy. A 1 year screening mammogram is recommended. This exam was interpreted at Station ID: [id number]. NOTE: For mammograms, a report in lay terms will be sent to the patient. Approximately 15% of breast malignancies will not be visualized mammographically. In the management of a palpable breast mass, a negative mammogram must not discourage biopsy of a clinically suspicious lesion. Electronically Signed By: Eric Ni M.D., jr/nikita:12/19/2021 09:36:21 letter sent: Normal Exam ACR BI-RADS Category 1: Negative [id number]
== END ==
PROVIDERS: PCP Internal Medicine; Referring Provider Internal Medicine; Visit Provider Internal Medicine
DX: Z12.31 Encounter for screening mammogram for malignant neoplasm of breast (principal); Z80.3 Family history of malignant neoplasm of breast
CPT/HCPCS: 77063; 77067

== ENCOUNTER 2021-12-31 09:00 | Outpatient (RCR) | payer MEDICARE, OTHER, SELFPAY ==
--- NOTE | 2021-06-18 10:29 | PT.OIE ---
Current Diagnoses Other specific arthropathies, not elsewhere classified, right shoulder (06/18/21) Strain of other muscles, fascia and tendons at shoulder and upper arm level, left arm, initial encounter (06/18/21) Past Medical History (Last Reviewed 04/12/21 @ 10:12 by Liv Lin MD) Cataracts, bilateral (~2015) Chicken pox Chronic renal failure, stage 2 (mild) Constipation Cyclothymia Depression Fecal incontinence (~2014) Fractures (~2004) Genital warts (~1984) Heart palpitations History of urinary incontinence (~2014) History of vaginal hysterectomy (~1996) Incomplete left bundle branch block (LBBB) Lumbar spinal stenosis Measles Mixed urge and stress incontinence Osteoporosis, unspecified Sciatica Viral cardiomyopathy Past Surgical History (Last Reviewed 04/12/21 @ 10:12 by Liv Lin MD) Anesthesia History of vaginal hysterectomy (~1996) Melanoma (~1981) Visit Care Team Role Provider Type Joshua Chin MD Primary Care Provider Physician Specialty: Internal Medicine Address: [address] [place] [address], [address], [address] Email: [email or web address] Juancho Mandujano MD Attending Provider Physician Referring Provider Specialty: Orthopedic Surgery Address: [address] [place] [address], [id number] Email: [email or web address] Physical Therapy Initial Evaluation PT-OP-A Visit Information Start: 06/18/21 07:58 Freq: Status: Active Protocol: Document 06/18/21 10:01 (Rec: 06/18/21 10:28 [email or web address]) Out-Patient Physical Therapy Visit Information Visit Information Visit Type Initial Evaluation Visit Note KX modifier Visit Start Time 08:15 Visit Stop Time 09:00 Total Visit Minutes 45 Visit Number 1 Number of CAP JEWEL PLATE ASSEMBLER Visits 0 Evaluation Information Evaluation Date 06/18/21 Precautions Precautions 7 falls in last year depression psychological disorder (didnt specific) PT-OP-B Current Condition Start: 06/18/21 07:58 Freq: Status: Active Protocol: Document 06/18/21 10:01 (Rec: 06/18/21 10:28 [email or web address]) Current Condition History of Current Condition Onset Date 04/04/21 Current Complaints L shoulder pain, difficulty lifting her arm History of Current Condition Serenity is a 75yo female here for her L shoulder pain and difficulty lifting her arm up after her recent fall on out of [employer] parking lot. Pt fell on her L side and L side of the face. She has been experiencing pain at superior lateral aspect of the L shoulder. Her major limitation is shoulder flexion and abduction and she is unable to hold any weighted object. She states she has been getting better and able to regain most AROM but with pain. She has no pain at rest and also denies any night pain, radiating pain, tingling and numbness. She has been using OH brianna and bicep curls and AROM exercise at home. Prior Treatments and Tests X-ray at L shoulder = negative pt had a course of PT here at [facility] for her R hip and gait. 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) PT-OP-C Subjective Start: 06/18/21 07:58 Freq: Status: Active Protocol: Document 06/18/21 10:01 (Rec: 06/18/21 10:28 [email or web address]) Patient Questionnaires Quick Dash- Upper Extremity Quick Dash UE Score 40.9 Quick Dash UE Impairment 40 to 59% Impaired (Score 40- 59) OP-PT Pain Assessment Location L shoulder Pain Location Details superiolateral shoulder ( deltoid region) Intensity 1 Scale Used Numeric (0 - 10) Description Aching,Dull Frequency Frequent Pain Aggravating Factors ADL's,Activity,Exercise Pain Alleviating Factors Inactivity PT-OP-E Functional Tests Start: 06/18/21 07:58 Freq: Status: Active Protocol: Document 06/18/21 10:01 (Rec: 06/18/21 10:28 [email or web address]) Functional Tests Apley's Scratch Test Action 2- Left T2 Action 2- Right T3 Action 3- Left T4 Action 3- Right T6 PT-OP-F Manual Assessment Start: 06/18/21 07:58 Freq: Status: Active Protocol: Document 06/18/21 10:01 (Rec: 06/18/21 10:28 [email or web address]) Manual Assessments Soft Tissue Assessment Soft Tissue Mobility Assessment tenderness with pressure at supraspinatus and middle deltoid PT-OP-K Range of Motion Start: 06/18/21 07:58 Freq: Status: Active Protocol: Document 06/18/21 10:01 (Rec: 06/18/21 10:28 [email or web address]) Shoulder Goniometric Range of Motion Shoulder Left Passive Testing Position Standing Flexion 160 Abduction 165 Comments reduced pain noted compared to AROM Right Active Shoulder ROM WFL Yes Testing Position Standing Flexion 160 Extension 55 Abduction 145 External Rotation at 90 degrees 90 Abduction Internal Rotation 90 Left Active Testing Position Standing Flexion 145 Extension 50 Abduction 150 External Rotation at 90 degrees 70 Abduction Internal Rotation 82 Comments pain with flexion and abduction PT-OP-L Special Tests Start: 06/18/21 07:58 Freq: Status: Active Protocol: Document 06/18/21 10:01 (Rec: 06/18/21 10:28 [email or web address]) Special Tests Shoulder Special Tests Drop Arm Rotator Cuff Test Results -ve Comments significant weakness noted Yergason's Biceps Test Results -ve painful arc Test Results +VE L Comments pain Speed's Biceps Test Results -ve [place] Test Test Results +VE Comments no clicking, significant weakness noted [place] Jay Impingement Test Results -ve Empty Can Test Results +VE L Comments significant weakness noted PT-OP-M Strength Start: 06/18/21 07:58 Freq: Status: Active Protocol: Document 06/18/21 10:01 (Rec: 06/18/21 10:28 [email or web address]) Shoulder Strength Shoulder Manual Muscle Testing Right Flexion 4+ Good+ Extension 4+ Good+ Abduction (C5) 4+ Good+ Adduction 4+ Good+ External Rotation 4+ Good+ Internal Rotation 4+ Good+ Left Flexion 3- Fair- Extension 4+ Good+ Abduction (C5) 3- Fair- Adduction 4+ Good+ External Rotation 3+ Fair+ Internal Rotation 3+ Fair+ PT-OP-Q Treatments Start: 06/18/21 07:58 Freq: Status: Active Protocol: Document 06/18/21 10:01 (Rec: 06/18/21 10:28 [email or web address]) Therapeutic Exercises Sitting Exercises shoulder ER AAROM Side bilateral Equipment Used PVC Comments HEP brianna Sitting Exercise Name flexion, abd Side bilateral Comments HEP Standing Exercises wall slide Standing Exercise Name abd only Side left Comments HEP, pain with flexion PT-OP-T Assessment and Plan Start: 06/18/21 07:58 Freq: Status: Active Protocol: Document 06/18/21 10:01 (Rec: 06/18/21 10:28 [email or web address]) Physical Therapy Assessment Rehab Potential Rehabilitation Potential Good Evaluation Complexity Number of Personal Factors/Comorbidities 1-2 Number of Body Systems Impaired 1-2 Clinical Presentation at Evaluation Stable Impairments Impairments Activity Tolerance,Functional Activities,Functional Mobility ,Gait,Pain,Posture,ROM,Soft Tissue Mobility,Strength Goals compensation Impairment pt compensates through shoulder elevation and trunk lateral flexion with OH Mobile Plant Operators Goal (LTG) pt will show improved scapular and shoulder strength to reach overhead with minimal compensation of shoulder elevation and trunk lateral flexion to R LTG Duration 8 weeks strength Impairment significant weakness for flexion and abduction Short Term Goal (STG) pt will show 1 MMT improvements on L shoulder ( flexion and abduction) so she can hold a cup of water with L arm, STG Duration 4 weeks Mobile Plant Operators Goal (LTG) pt will increase in overall shoulder strength so she can participate house chorese such as dish washing, sweeping and etc LTG Duration 8 weeks quickdash Impairment pt scores 40.9 on quick dash Short Term Goal (STG) pt will regain mobility and strength by scoring <30 on quickdash STG Duration 4 weeks Mobile Plant Operators Goal (LTG) pt will regain mobility and strength by scoring <20 on quickdash LTG Duration 8 weeks Assessment Summary Assessment Serenity is a 75 yo female here for her L shoulder pain and difficulty lifting her arm since her fall on 04/04/21. Upon assessment, pt presents supraspinatus strain / possible partial tear of it since she has WFL AROM but significant weakness with flexion and abduction (3-/5). Her pain reduces with PROM. She has been progressing well and she will benefit from skilled therapy to strengthen and stabilizer her shoulder progressively therefore she can participate general manager and daily activities ( able to hold weighted object on L hand). Pt is currently under KX modifier d/t previous PT for her R hip and gait early this year. Physical Therapy Plan Frequency and Duration Frequency of Treatment 2x/Week Duration of Treatment 8 weeks Plan of Care Start Date 06/18/21 Plan of Care End Date 08/17/21 Therapeutic Interventions Therapeutic Interventions Home Exercise Program,Joint Mobilizations,Manual Therapy, Neuromuscular Re-education, Patient/Caregiver Education, Self-Care/Home Management,Soft Tissue Mobilization,Taping, Therapeutic Activities, Therapeutic Exercises Modalities Cold Pack/Ice Massage,Electric Stimulation,Hot Packs, Infrared Therapy,Ultrasound Next Visit Focus/Plan Next Note Type Treatment Note Next Visit Plan review HEP strengthening in gravity eliminated position hor abd, prone I,T if elke
--- NOTE | 2021-06-18 10:29 | PT.OPPOC ---
Physical, Occupational & Speech Therapy At [facility] Current Diagnoses Other specific arthropathies, not elsewhere classified, right shoulder (06/18/21) Strain of other muscles, fascia and tendons at shoulder and upper arm level, left arm, initial encounter (06/18/21) Visit Care Team Role Provider Type Joshua Chin MD Primary Care Provider Physician Specialty: Internal Medicine Address: [address] [place] [address], [address], [place], [address] Email: [email or web address] Juancho Mandujano MD Attending Provider Physician Referring Provider Specialty: Orthopedic Surgery Address: [address] [place] [address], [id number] Email: [email or web address] Plan Of Care PT-OP-T Assessment and Plan Start: 06/18/21 07:58 Freq: Status: Active Protocol: Document 06/18/21 10:01 (Rec: 06/18/21 10:28 [email or web address]) Physical Therapy Assessment Rehab Potential Rehabilitation Potential Good Evaluation Complexity Number of Personal Factors/Comorbidities 1-2 Number of Body Systems Impaired 1-2 Clinical Presentation at Evaluation Stable Impairments Impairments Activity Tolerance,Functional Activities,Functional Mobility ,Gait,Pain,Posture,ROM,Soft Tissue Mobility,Strength Goals compensation Impairment pt compensates through shoulder elevation and trunk lateral flexion with OH Circuit Board Inspector Goal (LTG) pt will show improved scapular and shoulder strength to reach overhead with minimal compensation of shoulder elevation and trunk lateral flexion to R LTG Duration 8 weeks strength Impairment significant weakness for flexion and abduction Short Term Goal (STG) pt will show 1 MMT improvements on L shoulder ( flexion and abduction) so she can hold a cup of water with L arm, STG Duration 4 weeks [facility] Goal (LTG) pt will increase in overall shoulder strength so she can participate house chorese such as dish washing, sweeping and etc LTG Duration 8 weeks quickdash Impairment pt scores 40.9 on quick dash Short Term Goal (STG) pt will regain mobility and strength by scoring <30 on quickdash STG Duration 4 weeks Circuit Board Inspector Goal (LTG) pt will regain mobility and strength by scoring <20 on quickdash LTG Duration 8 weeks Assessment Summary Assessment Serenity is a 75 yo female here for her L shoulder pain and difficulty lifting her arm since her fall on 04/04/21. Upon assessment, pt presents supraspinatus strain / possible partial tear of it since she has WFL AROM but significant weakness with flexion and abduction (3-/5). Her pain reduces with PROM. 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 Pt is currently under KX modifier d/t previous PT for her R hip and gait early this year. Physical Therapy Plan Frequency and Duration Frequency of Treatment 2x/Week Duration of Treatment 8 weeks Plan of Care Start Date 06/18/21 Plan of Care End Date 08/17/21 Therapeutic Interventions Therapeutic Interventions Home Exercise Program,Joint Mobilizations,Manual Therapy, Neuromuscular Re-education, Patient/Caregiver Education, Self-Care/Home Management,Soft Tissue Mobilization,Taping, Therapeutic Activities, Therapeutic Exercises Modalities Cold Pack/Ice Massage,Electric Stimulation,Hot Packs, Infrared Therapy,Ultrasound Next Visit Focus/Plan Next Note Type Treatment Note Next Visit Plan review HEP strengthening in gravity eliminated position hor abd, prone I,T if elke Plan of Care Dates Plan of Care Start Date 06/18/21 Plan of Care End Date 08/17/21 Electronically Signed by: Lalito Trujillo, PT 06/18/21 1210 Please Sign and Return: I have reviewed this Plan of Care and certify that the skilled therapy services above are required to meet the patient?s needs. Physician Signature Date Printed Name and Credentials Clinical Instructor Signature Printed Name and Credentials
--- NOTE | 2021-06-26 09:02 | PT.OTN ---
Current Diagnoses Other specific arthropathies, not elsewhere classified, right shoulder (06/26/21) Strain of other muscles, fascia and tendons at shoulder and upper arm level, left arm, initial encounter (06/26/21) Physical Therapy Treatment Note PT-OP-A Visit Information Start: 06/18/21 07:58 Freq: Status: Active Protocol: Document 06/26/21 08:15 HH (Rec: 06/26/21 09:02 [id number]) Out-Patient Physical Therapy Visit Information Visit Information Visit Type Treatment Note Visit Note KX modifier pt is 7 mins late. Visit Start Time 08:22 Visit Stop Time 09:00 Total Visit Minutes 38 Visit Number 2 Number of BOX TRUCK DRIVER Visits 0 PT-OP-B Current Condition Start: 06/18/21 07:58 Freq: Status: Active Protocol: Document 06/18/21 10:01 HH (Rec: 06/18/21 10:28 [email or web address]) Current Condition History of Current Condition Onset Date 04/04/21 Current Complaints L shoulder pain, difficulty lifting her arm History of Current Condition Serenity is a 75yo female here for her L shoulder pain and difficulty lifting her arm up after her recent fall on out of [employer] parking lot. Pt fell on her L side and L side of the face. She has been experiencing pain at superior lateral aspect of the L shoulder. Her major limitation is shoulder flexion and abduction and she is unable to hold any weighted object. She states she has been getting better and able to regain most AROM but with pain. She has no pain at rest and also denies any night pain, radiating pain, tingling and numbness. She has been using OH brianna and bicep curls and AROM exercise at home. Prior Treatments and Tests X-ray at L shoulder = negative pt had a course of PT here at [facility] for her R hip and gait. 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 Bonnie been gardening a lot. My shoulder doesnt hurt spontaneuously like before. Patient Reported Progress Same PT-OP-E Functional Tests Start: 06/18/21 07:58 Freq: Status: Active Protocol: Document 06/18/21 10:01 (Rec: 06/18/21 10:28 [email or web address]) Functional Tests Apley's Scratch Test Action 2- Left T2 Action 2- Right T3 Action 3- Left T4 Action 3- Right T6 PT-OP-F Manual Assessment Start: 06/18/21 07:58 Freq: Status: Active Protocol: Document 06/18/21 10:01 (Rec: 06/18/21 10:28 [email or web address]) Manual Assessments Soft Tissue Assessment Soft Tissue Mobility Assessment tenderness with pressure at supraspinatus and middle deltoid PT-OP-K Range of Motion Start: 06/18/21 07:58 Freq: Status: Active Protocol: Document 06/18/21 10:01 (Rec: 06/18/21 10:28 [email or web address]) Shoulder Goniometric Range of Motion Shoulder Left Passive Testing Position Standing Flexion 160 Abduction 165 Comments reduced pain noted compared to AROM Right Active Shoulder ROM WFL Yes Testing Position Standing Flexion 160 Extension 55 Abduction 145 External Rotation at 90 degrees 90 Abduction Internal Rotation 90 Left Active Testing Position Standing Flexion 145 Extension 50 Abduction 150 External Rotation at 90 degrees 70 Abduction Internal Rotation 82 Comments pain with flexion and abduction PT-OP-L Special Tests Start: 06/18/21 07:58 Freq: Status: Active Protocol: Document 06/18/21 10:01 (Rec: 06/18/21 10:28 [email or web address]) Special Tests Shoulder Special Tests Drop Arm Rotator Cuff Test Results -ve Comments significant weakness noted Yergason's Biceps Test Results -ve painful arc Test Results +VE L Comments pain Speed's Biceps Test Results -ve Pierce Test Test Results +VE Comments no clicking, significant weakness noted Samayoa Jay Impingement Test Results -ve Empty Can Test Results +VE L Comments significant weakness noted PT-OP-M Strength Start: 06/18/21 07:58 Freq: Status: Active Protocol: Document 06/18/21 10:01 (Rec: 06/18/21 10:28 [email or web address]) Shoulder Strength Shoulder Manual Muscle Testing Right Flexion 4+ Good+ Extension 4+ Good+ Abduction (C5) 4+ Good+ Adduction 4+ Good+ External Rotation 4+ Good+ Internal Rotation 4+ Good+ Left Flexion 3- Fair- Extension 4+ Good+ Abduction (C5) 3- Fair- Adduction 4+ Good+ External Rotation 3+ Fair+ Internal Rotation 3+ Fair+ PT-OP-Q Treatments Start: 06/18/21 07:58 Freq: Status: Active Protocol: Document 06/26/21 08:15 (Rec: 06/26/21 09:02 [id number]) Cardio Equipment Upper Body Ergometer (UBE) Duration (Minutes) 4 RPM 4 Seat Position 10 Height 3 Other no discomfort. Therapeutic Exercises Sidelying Exercises shoulder abd Side left Reps/Minutes 8x2 Comments for HEP, fatigue after first set. hor abd Side left Reps/Minutes 10 x2 Comments for HEP Sitting Exercises brianna Sitting Exercise Name flexion, abd Side bilateral Comments HEP Standing Exercises wall slide Standing Exercise Name abd only Side left Comments HEP, pain with flexion Manual Therapy Treatment Soft Tissue Mobilization supraspinatus tendon Mobilization Type Myofascial Release,Sustained Pressure,Trigger Point Release Intensity/Depth Moderate Body Position Sidelying Joint Mobilizations GHJ Direction post glide Grade III Body Position Supine Comments pain reduce for ER PT-OP-T Assessment and Plan Start: 06/18/21 07:58 Freq: Status: Active Protocol: Document 06/26/21 08:15 (Rec: 06/26/21 09:02 [id number]) Physical Therapy Assessment Goals compensation Impairment pt compensates through shoulder elevation and trunk lateral flexion with OH Retirement Goal (LTG) pt will show improved scapular and shoulder strength to reach overhead with minimal compensation of shoulder elevation and trunk lateral flexion to R LTG Duration 8 weeks strength Impairment significant weakness for flexion and abduction Short Term Goal (STG) pt will show 1 MMT improvements on L shoulder ( flexion and abduction) so she can hold a cup of water with L arm, STG Duration 4 weeks Patient Ombudsperson Goal (LTG) pt will increase in overall shoulder strength so she can participate house chorese such as dish washing, sweeping and etc LTG Duration 8 weeks quickdash Impairment pt scores 40.9 on quick dash Short Term Goal (STG) pt will regain mobility and strength by scoring <30 on quickdash STG Duration 4 weeks Patient Ombudsperson Goal (LTG) pt will regain mobility and strength by scoring <20 on quickdash LTG Duration 8 weeks Assessment Summary Assessment first tx session today with a start of brianna, UBE followed by scap control and light shoulder strengthening ex. Pt does get fatigue easily for SL shoulder abd. Physical Therapy Plan Frequency and Duration Frequency of Treatment 2x/Week Duration of Treatment 8 weeks Plan of Care Start Date 06/18/21 Plan of Care End Date 08/17/21 Therapeutic Interventions Therapeutic Interventions Home Exercise Program,Joint Mobilizations,Manual Therapy, Neuromuscular Re-education, Patient/Caregiver Education, Self-Care/Home Management,Soft Tissue Mobilization,Taping, Therapeutic Activities, Therapeutic Exercises Modalities Cold Pack/Ice Massage,Electric Stimulation,Hot Packs, Infrared Therapy,Ultrasound Next Visit Focus/Plan Next Note Type Treatment Note Next Visit Plan review HEP strengthening in gravity eliminated position hor abd, prone I,T if elke
--- NOTE | 2021-06-29 09:02 | PT.OTN ---
Current Diagnoses Other specific arthropathies, not elsewhere classified, right shoulder (06/29/21) Strain of other muscles, fascia and tendons at shoulder and upper arm level, left arm, initial encounter (06/29/21) Physical Therapy Treatment Note PT-OP-A Visit Information Start: 06/18/21 07:58 Freq: Status: Active Protocol: Document 06/29/21 08:14 HH (Rec: 06/29/21 09:02 [id number]) Out-Patient Physical Therapy Visit Information Visit Information Visit Type Treatment Note Visit Note KX modifier pt is 7 mins late Visit Start Time 08:22 Visit Stop Time 09:00 Total Visit Minutes 38 Visit Number 3 Number of TELECOMMUNICATIONS LINESWORKER Visits 0 PT-OP-B Current Condition Start: 06/18/21 07:58 Freq: Status: Active Protocol: Document 06/18/21 10:01 HH (Rec: 06/18/21 10:28 [email or web address]) Current Condition History of Current Condition Onset Date 04/04/21 Current Complaints L shoulder pain, difficulty lifting her arm History of Current Condition Serenity is a 75yo female here for her L shoulder pain and difficulty lifting her arm up after her recent fall on out of [employer] parking lot. Pt fell on her L side and L side of the face. She has been experiencing pain at superior lateral aspect of the L shoulder. Her major limitation is shoulder flexion and abduction and she is unable to hold any weighted object. She states she has been getting better and able to regain most AROM but with pain. She has no pain at rest and also denies any night pain, radiating pain, tingling and numbness. She has been using OH brianna and bicep curls and AROM exercise at home. Prior Treatments and Tests X-ray at L shoulder = negative pt had a course of PT here at [facility] for her R hip and gait. 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 PT-OP-E Functional Tests Start: 06/18/21 07:58 Freq: Status: Active Protocol: Document 06/18/21 10:01 (Rec: 06/18/21 10:28 [email or web address]) Functional Tests Apley's Scratch Test Action 2- Left T2 Action 2- Right T3 Action 3- Left T4 Action 3- Right T6 PT-OP-F Manual Assessment Start: 06/18/21 07:58 Freq: Status: Active Protocol: Document 06/18/21 10:01 (Rec: 06/18/21 10:28 [email or web address]) Manual Assessments Soft Tissue Assessment Soft Tissue Mobility Assessment tenderness with pressure at supraspinatus and middle deltoid PT-OP-K Range of Motion Start: 06/18/21 07:58 Freq: Status: Active Protocol: Document 06/18/21 10:01 (Rec: 06/18/21 10:28 [email or web address]) Shoulder Goniometric Range of Motion Shoulder Left Passive Testing Position Standing Flexion 160 Abduction 165 Comments reduced pain noted compared to AROM Right Active Shoulder ROM WFL Yes Testing Position Standing Flexion 160 Extension 55 Abduction 145 External Rotation at 90 degrees 90 Abduction Internal Rotation 90 Left Active Testing Position Standing Flexion 145 Extension 50 Abduction 150 External Rotation at 90 degrees 70 Abduction Internal Rotation 82 Comments pain with flexion and abduction PT-OP-L Special Tests Start: 06/18/21 07:58 Freq: Status: Active Protocol: Document 06/18/21 10:01 (Rec: 06/18/21 10:28 [email or web address]) Special Tests Shoulder Special Tests Drop Arm Rotator Cuff Test Results -ve Comments significant weakness noted Yergason's Biceps Test Results -ve painful arc Test Results +VE L Comments pain Speed's Biceps Test Results -ve Gaines Test Test Results +VE Comments no clicking, significant weakness noted Samayoa Jay Impingement Test Results -ve Empty Can Test Results +VE L Comments significant weakness noted PT-OP-M Strength Start: 06/18/21 07:58 Freq: Status: Active Protocol: Document 06/18/21 10:01 HH (Rec: 06/18/21 10:28 [email or web address]) Shoulder Strength Shoulder Manual Muscle Testing Right Flexion 4+ Good+ Extension 4+ Good+ Abduction (C5) 4+ Good+ Adduction 4+ Good+ External Rotation 4+ Good+ Internal Rotation 4+ Good+ Left Flexion 3- Fair- Extension 4+ Good+ Abduction (C5) 3- Fair- Adduction 4+ Good+ External Rotation 3+ Fair+ Internal Rotation 3+ Fair+ PT-OP-Q Treatments Start: 06/18/21 07:58 Freq: Status: Active Protocol: Document 06/29/21 08:14 (Rec: 06/29/21 09:02 [id number]) Cardio Equipment Upper Body Ergometer (UBE) Duration (Minutes) 4 RPM 4 Seat Position 10 Height 3 Other no discomfort. Therapeutic Exercises Sidelying Exercises shoulder abd Side left Reps/Minutes 8x2 Comments for HEP, fatigue after 4 reps hor abd Side left Reps/Minutes 10 x2 Comments for HEP Sitting Exercises shoulder ER AAROM Side bilateral Equipment Used PVC Comments HEP brianna Sitting Exercise Name flexion, abd Side bilateral Comments HEP Standing Exercises wall slide Standing Exercise Name abd and flexion Side left Comments HEP, pain with flexion, recommended pt to focus this more at home Manual Therapy Treatment Soft Tissue Mobilization supraspinatus tendon Mobilization Type Myofascial Release,Sustained Pressure,Trigger Point Release Intensity/Depth Moderate Body Position Sidelying PT-OP-T Assessment and Plan Start: 06/18/21 07:58 Freq: Status: Active Protocol: Document 06/29/21 08:14 (Rec: 06/29/21 09:02 [id number]) Physical Therapy Assessment Goals compensation Impairment pt compensates through shoulder elevation and trunk lateral flexion with [place] Prison Goal (LTG) pt will show improved scapular and shoulder strength to reach overhead with minimal compensation of shoulder elevation and trunk lateral flexion to R LTG Duration 8 weeks strength Impairment significant weakness for flexion and abduction Short Term Goal (STG) pt will show 1 MMT improvements on L shoulder ( flexion and abduction) so she can hold a cup of water with L arm, STG Duration 4 weeks Network Security Officer Goal (LTG) pt will increase in overall shoulder strength so she can participate house chorese such as dish washing, sweeping and etc LTG Duration 8 weeks quickdash Impairment pt scores 40.9 on quick dash Short Term Goal (STG) pt will regain mobility and strength by scoring <30 on quickdash STG Duration 4 weeks Network Security Officer Goal (LTG) pt will regain mobility and strength by scoring <20 on quickdash LTG Duration 8 weeks Assessment Summary Assessment pt has a new 5th metatarsal fx which affects her walking. I explained to her that is possibly d/t repetitive loading on lateral foot from her R gluteal weakness. Recommended her to use SPC on her L UE for load management. Pt's L shoulder continue to have the most difficulty for abduction. We focused on SL open book and wall sldie today . Physical Therapy Plan Frequency and Duration Frequency of Treatment 2x/Week Duration of Treatment 8 weeks Plan of Care Start Date 06/18/21 Plan of Care End Date 08/17/21 Therapeutic Interventions Therapeutic Interventions Home Exercise Program,Joint Mobilizations,Manual Therapy, Neuromuscular Re-education, Patient/Caregiver Education, Self-Care/Home Management,Soft Tissue Mobilization,Taping, Therapeutic Activities, Therapeutic Exercises Modalities Cold Pack/Ice Massage,Electric Stimulation,Hot Packs, Infrared Therapy,Ultrasound Next Visit Focus/Plan Next Note Type Treatment Note Next Visit Plan review HEP strengthening in gravity eliminated position hor abd, prone I,T if elke
--- NOTE | 2021-07-03 08:55 | PT.OTN ---
Current Diagnoses Other specific arthropathies, not elsewhere classified, right shoulder (07/03/21) Strain of other muscles, fascia and tendons at shoulder and upper arm level, left arm, initial encounter (07/03/21) Physical Therapy Treatment Note PT-OP-A Visit Information Start: 06/18/21 07:58 Freq: Status: Active Protocol: Document 07/03/21 08:12 HH (Rec: 07/03/21 08:54 [id number]) Out-Patient Physical Therapy Visit Information Visit Information Visit Type Treatment Note Visit Note KX modifier Pt came in with walking boot today and SPC d/t her metatarsal fx. Visit Start Time 08:15 Visit Stop Time 09:00 Total Visit Minutes 45 Visit Number 4 Number of FIELD ADMINISTRATOR Visits 0 PT-OP-B Current Condition Start: 06/18/21 07:58 Freq: Status: Active Protocol: Document 06/18/21 10:01 HH (Rec: 06/18/21 10:28 HH [email or web address]) Current Condition History of Current Condition Onset Date 04/04/21 Current Complaints L shoulder pain, difficulty lifting her arm History of Current Condition Serenity is a 75yo female here for her L shoulder pain and difficulty lifting her arm up after her recent fall on out of [employer] parking lot. Pt fell on her L side and L side of the face. She has been experiencing pain at superior lateral aspect of the L shoulder. Her major limitation is shoulder flexion and abduction and she is unable to hold any weighted object. She states she has been getting better and able to regain most AROM but with pain. She has no pain at rest and also denies any night pain, radiating pain, tingling and numbness. She has been using OH brianna and bicep curls and AROM exercise at home. Prior Treatments and Tests X-ray at L shoulder = negative pt had a course of PT here at [facility] for her R hip and gait. 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) PT-OP-C Subjective Start: 06/18/21 07:58 Freq: Status: Active Protocol: Document 07/03/21 08:12 HH (Rec: 07/03/21 08:54 [id number]) OP-PT Subjective Patient Comments Patient Comments My shoulder is a little tender today. I was able to reach my arm a little higher and i was doing lots of overhead reaching to pick iraheta Patient Reported Progress Improving PT-OP-E Functional Tests Start: 06/18/21 07:58 Freq: Status: Active Protocol: Document 06/18/21 10:01 (Rec: 06/18/21 10:28 [email or web address]) Functional Tests Apley's Scratch Test Action 2- Left T2 Action 2- Right T3 Action 3- Left T4 Action 3- Right T6 PT-OP-F Manual Assessment Start: 06/18/21 07:58 Freq: Status: Active Protocol: Document 06/18/21 10:01 (Rec: 06/18/21 10:28 [email or web address]) Manual Assessments Soft Tissue Assessment Soft Tissue Mobility Assessment tenderness with pressure at supraspinatus and middle deltoid PT-OP-K Range of Motion Start: 06/18/21 07:58 Freq: Status: Active Protocol: Document 06/18/21 10:01 (Rec: 06/18/21 10:28 [email or web address]) Shoulder Goniometric Range of Motion Shoulder Left Passive Testing Position Standing Flexion 160 Abduction 165 Comments reduced pain noted compared to AROM Right Active Shoulder ROM WFL Yes Testing Position Standing Flexion 160 Extension 55 Abduction 145 External Rotation at 90 degrees 90 Abduction Internal Rotation 90 Left Active Testing Position Standing Flexion 145 Extension 50 Abduction 150 External Rotation at 90 degrees 70 Abduction Internal Rotation 82 Comments pain with flexion and abduction PT-OP-L Special Tests Start: 06/18/21 07:58 Freq: Status: Active Protocol: Document 06/18/21 10:01 (Rec: 06/18/21 10:28 [email or web address]) Special Tests Shoulder Special Tests Drop Arm Rotator Cuff Test Results -ve Comments significant weakness noted Demarcorgason's Biceps Test Results -ve painful arc Test Results +VE L Comments pain Speed's Biceps Test Results -ve [place] Test Test Results +VE Comments no clicking, significant weakness noted Samayoa Jay Impingement Test Results -ve Empty Can Test Results +VE L Comments significant weakness noted PT-OP-M Strength Start: 06/18/21 07:58 Freq: Status: Active Protocol: Document 06/18/21 10:01 (Rec: 06/18/21 10:28 [email or web address]) Shoulder Strength Shoulder Manual Muscle Testing Right Flexion 4+ Good+ Extension 4+ Good+ Abduction (C5) 4+ Good+ Adduction 4+ Good+ External Rotation 4+ Good+ Internal Rotation 4+ Good+ Left Flexion 3- Fair- Extension 4+ Good+ Abduction (C5) 3- Fair- Adduction 4+ Good+ External Rotation 3+ Fair+ Internal Rotation 3+ Fair+ PT-OP-Q Treatments Start: 06/18/21 07:58 Freq: Status: Active Protocol: Document 07/03/21 08:12 HH (Rec: 07/03/21 08:54 [id number]) Cardio Equipment Upper Body Ergometer (UBE) Duration (Minutes) 4 RPM 4 Seat Position 10 Height 3 Other no discomfort. Therapeutic Exercises Supine Exercises supine ER Equipment Used PVC Reps/Minutes 2 mins Sidelying Exercises shoulder ER Side left Reps/Minutes 5x 2 Comments very painful today. shoulder abd Comments very painful today hor abd Side left Reps/Minutes 10 x2 Sitting Exercises brianna Sitting Exercise Name flexion, abd Side bilateral Comments HEP Standing Exercises shoulder rows Side bilateral Equipment Used level 1 band Reps/Minutes 10 x2 Comments for HEP wall slide Standing Exercise Name abd and flexion Side left Comments HEP, pain with flexion, recommended pt to focus this more at home Manual Therapy Treatment Soft Tissue Mobilization supraspinatus tendon Mobilization Type Myofascial Release,Sustained Pressure,Trigger Point Release Intensity/Depth Moderate Body Position Sidelying Comments very sensitive today and radiating down to middle delt PT-OP-R Modalities Start: 06/18/21 07:58 Freq: Status: Active Protocol: Document 07/03/21 08:15 HH (Rec: 07/03/21 08:55 [id number]) Hot Pack/Cold Pack Treatment Cold Pack Location L shd Patient Position Sitting Treatment Duration (minutes) 7 Patient Tolerance Good PT-OP-T Assessment and Plan Start: 06/18/21 07:58 Freq: Status: Active Protocol: Document 07/03/21 08:12 HH (Rec: 07/03/21 08:54 [id number]) Physical Therapy Assessment Goals compensation Impairment pt compensates through shoulder elevation and trunk lateral flexion with OH Custodial Goal (LTG) pt will show improved scapular and shoulder strength to reach overhead with minimal compensation of shoulder elevation and trunk lateral flexion to R LTG Duration 8 weeks strength Impairment significant weakness for flexion and abduction Short Term Goal (STG) pt will show 1 MMT improvements on L shoulder ( flexion and abduction) so she can hold a cup of water with L arm, STG Duration 4 weeks Custodial Goal (LTG) pt will increase in overall shoulder strength so she can participate house chorese such as dish washing, sweeping and etc LTG Duration 8 weeks quickdash Impairment pt scores 40.9 on quick dash Short Term Goal (STG) pt will regain mobility and strength by scoring <30 on quickdash STG Duration 4 weeks Senior Software Architect Goal (LTG) pt will regain mobility and strength by scoring <20 on quickdash LTG Duration 8 weeks Assessment Summary Assessment pt's shoulder is somewhat irritated today with more pain radiating to middle delt after lots of overhead reaching activities at home yesterday. Spent time educating pt on load management and allowing recovery during the week. She elke okay with AAROM, UBE and scap row. Physical Therapy Plan Frequency and Duration Frequency of Treatment 2x/Week Duration of Treatment 8 weeks Plan of Care Start Date 06/18/21 Plan of Care End Date 08/17/21 Therapeutic Interventions Therapeutic Interventions Home Exercise Program,Joint Mobilizations,Manual Therapy, Neuromuscular Re-education, Patient/Caregiver Education, Self-Care/Home Management,Soft Tissue Mobilization,Taping, Therapeutic Activities, Therapeutic Exercises Modalities Cold Pack/Ice Massage,Electric Stimulation,Hot Packs, Infrared Therapy,Ultrasound Next Visit Focus/Plan Next Note Type Treatment Note Next Visit Plan review HEP strengthening in gravity eliminated position hor abd, prone I,T if elke
--- NOTE | 2021-07-06 09:00 | PT.OTN ---
Current Diagnoses Other specific arthropathies, not elsewhere classified, right shoulder (07/06/21) Strain of other muscles, fascia and tendons at shoulder and upper arm level, left arm, initial encounter (07/06/21) Physical Therapy Treatment Note PT-OP-A Visit Information Start: 06/18/21 07:58 Freq: Status: Active Protocol: Document 07/06/21 08:17 SP (Rec: 07/06/21 09:06 SP [id number]) Out-Patient Physical Therapy Visit Information Visit Information Visit Type Treatment Note Visit Note KX modifier Pt came in with walking boot today and SPC d/t her metatarsal fx. Visit Start Time 08:17 Visit Stop Time 09:00 Total Visit Minutes 42 Visit Number 5 Number of CONSTRUCTION ENGINEER Visits 1 Evaluation Information Evaluation Date 06/18/21 PT-OP-B Current Condition Start: 06/18/21 07:58 Freq: Status: Active Protocol: Document 06/18/21 10:01 HH (Rec: 06/18/21 10:28 HH [email or web address]) Current Condition History of Current Condition Onset Date 04/04/21 Current Complaints L shoulder pain, difficulty lifting her arm History of Current Condition Serenity is a 75yo female here for her L shoulder pain and difficulty lifting her arm up after her recent fall on out of [employer] parking lot. Pt fell on her L side and L side of the face. She has been experiencing pain at superior lateral aspect of the L shoulder. Her major limitation is shoulder flexion and abduction and she is unable to hold any weighted object. She states she has been getting better and able to regain most AROM but with pain. She has no pain at rest and also denies any night pain, radiating pain, tingling and numbness. She has been using OH brianna and bicep curls and AROM exercise at home. Prior Treatments and Tests X-ray at L shoulder = negative pt had a course of PT here at [facility] for her R hip and gait. 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 PT-OP-E Functional Tests Start: 06/18/21 07:58 Freq: Status: Active Protocol: Document 06/18/21 10:01 (Rec: 06/18/21 10:28 [email or web address]) Functional Tests Apley's Scratch Test Action 2- Left T2 Action 2- Right T3 Action 3- Left T4 Action 3- Right T6 PT-OP-F Manual Assessment Start: 06/18/21 07:58 Freq: Status: Active Protocol: Document 06/18/21 10:01 (Rec: 06/18/21 10:28 [email or web address]) Manual Assessments Soft Tissue Assessment Soft Tissue Mobility Assessment tenderness with pressure at supraspinatus and middle deltoid PT-OP-K Range of Motion Start: 06/18/21 07:58 Freq: Status: Active Protocol: Document 06/18/21 10:01 (Rec: 06/18/21 10:28 [email or web address]) Shoulder Goniometric Range of Motion Shoulder Left Passive Testing Position Standing Flexion 160 Abduction 165 Comments reduced pain noted compared to AROM Right Active Shoulder ROM WFL Yes Testing Position Standing Flexion 160 Extension 55 Abduction 145 External Rotation at 90 degrees 90 Abduction Internal Rotation 90 Left Active Testing Position Standing Flexion 145 Extension 50 Abduction 150 External Rotation at 90 degrees 70 Abduction Internal Rotation 82 Comments pain with flexion and abduction PT-OP-L Special Tests Start: 06/18/21 07:58 Freq: Status: Active Protocol: Document 06/18/21 10:01 (Rec: 06/18/21 10:28 [email or web address]) Special Tests Shoulder Special Tests Drop Arm Rotator Cuff Test Results -ve Comments significant weakness noted Yergason's Biceps Test Results -ve painful arc Test Results +VE L Comments pain Speed's Biceps Test Results -ve [place] Test Test Results +VE Comments no clicking, significant weakness noted Samayoa Jay Impingement Test Results -ve Empty Can Test Results +VE L Comments significant weakness noted PT-OP-M Strength Start: 06/18/21 07:58 Freq: Status: Active Protocol: Document 06/18/21 10:01 (Rec: 06/18/21 10:28 [email or web address]) Shoulder Strength Shoulder Manual Muscle Testing Right Flexion 4+ Good+ Extension 4+ Good+ Abduction (C5) 4+ Good+ Adduction 4+ Good+ External Rotation 4+ Good+ Internal Rotation 4+ Good+ Left Flexion 3- Fair- Extension 4+ Good+ Abduction (C5) 3- Fair- Adduction 4+ Good+ External Rotation 3+ Fair+ Internal Rotation 3+ Fair+ PT-OP-Q Treatments Start: 06/18/21 07:58 Freq: Status: Active Protocol: Document 07/06/21 08:17 SP (Rec: 07/06/21 09:06 SP [id number]) Cardio Equipment Upper Body Ergometer (UBE) Duration (Minutes) 4 RPM 120 Seat Position 9 Height 2.5 Other 30 fwd, 30 bkwd, Therapeutic Exercises Supine Exercises supine ER Resistance AAROM self Equipment Used SPC Reps/Minutes x10 Comments cued SLOW, tall posture, CS ext neutral that can. Sidelying Exercises shoulder ER Side left Resistance AAROM Equipment Used towel under arm Reps/Minutes 5x 2 Comments pain free, states just get to a point can't go further need help shoulder abd Sidelying Exercise Name 130 deg PT Aide measured under instruction and visual guidence Side left Resistance PROM-AAROM (therapist assisted ) Reps/Minutes x5 reps total Comments painfree, hor abd Side left Resistance AROM Reps/Minutes 5 reps x2 Comments cued alignment toward ceiling and use peripherial vision- good self correct Sitting Exercises shoulder ER AAROM Sitting Exercise Name HEP Side bilateral Equipment Used SPC Reps/Minutes x10 Comments cued SLOW, tall posture, CS ext neutral that can. brianna Sitting Exercise Name flexion, abd- HEP Side bilateral Equipment Used mirror Reps/Minutes x20 for quality assessment, pause 5 sec Comments Intermitttent cues for slow pacing to allow decrease UT recruitment Standing Exercises wall slide Standing Exercise Name abd and flexion Side left Resistance HEP, pain with flexion, recommended pt to focus this more at home Comments cued stop rest/ breath various ranges for decrease UT recruit and comfort Manual Therapy Treatment Manual Techniques AAROM/ PROM during HEP Type L shld: HEP review ABD, ER sidelying. Comments 8 min. PT-OP-R Modalities Start: 06/18/21 07:58 Freq: Status: Active Protocol: Document 07/03/21 08:15 HH (Rec: 07/03/21 08:55 HH [id number]) Hot Pack/Cold Pack Treatment Cold Pack Location L shd Patient Position Sitting Treatment Duration (minutes) 7 Patient Tolerance Good PT-OP-T Assessment and Plan Start: 06/18/21 07:58 Freq: Status: Active Protocol: Document 07/06/21 08:17 SP (Rec: 07/06/21 09:06 SP [id number]) Physical Therapy Assessment Goals compensation Impairment pt compensates through shoulder elevation and trunk lateral flexion with OH Check Embosser Goal (LTG) pt will show improved scapular and shoulder strength to reach overhead with minimal compensation of shoulder elevation and trunk lateral flexion to R LTG Duration 8 weeks strength Impairment significant weakness for flexion and abduction Short Term Goal (STG) pt will show 1 MMT improvements on L shoulder ( flexion and abduction) so she can hold a cup of water with L arm, STG Duration 4 weeks Check Embosser Goal (LTG) pt will increase in overall shoulder strength so she can participate house chorese such as dish washing, sweeping and etc LTG Duration 8 weeks quickdash Impairment pt scores 40.9 on quick dash Short Term Goal (STG) pt will regain mobility and strength by scoring <30 on quickdash STG Duration 4 weeks Check Embosser Goal (LTG) pt will regain mobility and strength by scoring <20 on quickdash LTG Duration 8 weeks Assessment Summary Assessment Pt has weakness active FF, ABD and ER. Improves post cues and use of mirror for proper form and alignment with reported decreased pain in L shld. Extra time spend in education on slower pacing movement, awareness of tall posture/ alignment/ CS ext to neutral and not recruiting UT (shld elevation) during pulleys, wall slides and sidelying ER/ABD. Pt is able to perform ABD to approx 90 deg AROM, 130 deg AAROM. Physical Therapy Plan Frequency and Duration Frequency of Treatment 2x/Week Duration of Treatment 8 weeks Plan of Care Start Date 06/18/21 Plan of Care End Date 08/17/21 Therapeutic Interventions Therapeutic Interventions Home Exercise Program,Joint Mobilizations,Manual Therapy, Neuromuscular Re-education, Patient/Caregiver Education, Self-Care/Home Management,Soft Tissue Mobilization,Taping, Therapeutic Activities, Therapeutic Exercises Modalities Cold Pack/Ice Massage,Electric Stimulation,Hot Packs, Infrared Therapy,Ultrasound Next Visit Focus/Plan Next Note Type Treatment Note Next Visit Plan Assess response to pulleys, wall slides improved form. Next tx add standing at wall L shld isometrics. Review HEP strengthening in gravity eliminated position hor abd, prone I,T if elke
--- NOTE | 2021-07-10 09:02 | PT.OPPOC ---
Physical, Occupational & Speech Therapy At [facility] Current Diagnoses Other specific arthropathies, not elsewhere classified, right shoulder (07/10/21) Strain of other muscles, fascia and tendons at shoulder and upper arm level, left arm, initial encounter (07/10/21) Visit Care Team Role Provider Type oJshua Chin MD Primary Care Provider Physician Specialty: Internal Medicine Address: [address] [place] [address], [address], [address] Email: [email or web address] Juancho Mandujano MD Attending Provider Physician Referring Provider Specialty: Orthopedic Surgery Address: [address] [place] [address], [id number] Email: [email or web address] Plan Of Care PT-OP-T Assessment and Plan Start: 06/18/21 07:58 Freq: Status: Active Protocol: Document 07/10/21 08:12 (Rec: 07/10/21 09:02 [id number]) Physical Therapy Assessment Goals compensation Impairment pt compensates through shoulder elevation and trunk lateral flexion with OH Crew Leader/Control Room Operator Goal (LTG) pt will show improved scapular and shoulder strength to reach overhead with minimal compensation of shoulder elevation and trunk lateral flexion to R LTG Duration 8 weeks strength Impairment significant weakness for flexion and abduction Short Term Goal (STG) pt will show 1 MMT improvements on L shoulder ( flexion and abduction) so she can hold a cup of water with L arm, STG Duration 4 weeks Crew Leader/Control Room Operator Goal (LTG) pt will increase in overall shoulder strength so she can participate house chorese such as dish washing, sweeping and etc LTG Duration 8 weeks quickdash Impairment pt scores 40.9 on quick dash Short Term Goal (STG) pt will regain mobility and strength by scoring <30 on quickdash STG Duration 4 weeks Senior Living Goal (LTG) pt will regain mobility and strength by scoring <20 on quickdash LTG Duration 8 weeks Assessment Summary Assessment Pt reports her progress is limited because of her significant shoulder weakness. I spent time educating pt that her possible partial tear / full tear of supraspinatus tendon which can be a long rehab and requires compensation from surrounding musculature. Recommended her to consult with her shoulder specialist Dr. Mandujano for a MRI and consultation. Since pt has shown limited progress, change her POC to twice a month for follow up routine. Physical Therapy Plan Frequency and Duration Frequency of Treatment Every Other Week Duration of Treatment 12 weeks Plan of Care Start Date 07/10/21 Plan of Care End Date 10/08/21 Therapeutic Interventions Therapeutic Interventions Home Exercise Program,Joint Mobilizations,Manual Therapy, Neuromuscular Re-education, Patient/Caregiver Education, Self-Care/Home Management,Soft Tissue Mobilization,Taping, Therapeutic Activities, Therapeutic Exercises Modalities Cold Pack/Ice Massage,Electric Stimulation,Hot Packs, Infrared Therapy,Ultrasound Next Visit Focus/Plan Next Note Type Treatment Note Next Visit Plan Assess response to pulleys, wall slides improved form. Next tx add standing at wall L shld isometrics. Review HEP strengthening in gravity eliminated position hor abd, prone I,T if elke Plan of Care Dates Plan of Care Start Date 07/10/21 Plan of Care End Date 10/08/21 Electronically Signed by: Lalito Trujillo PT 07/10/21 0902 Please Sign and Return: I have reviewed this Plan of Care and certify that the skilled therapy services above are required to meet the patient?s needs. Physician Signature Date Printed Name and Credentials Clinical Instructor Signature Printed Name and Credentials
--- NOTE | 2021-07-10 09:02 | PT.OTN ---
Current Diagnoses Other specific arthropathies, not elsewhere classified, right shoulder (07/10/21) Strain of other muscles, fascia and tendons at shoulder and upper arm level, left arm, initial encounter (07/10/21) Physical Therapy Treatment Note PT-OP-A Visit Information Start: 06/18/21 07:58 Freq: Status: Active Protocol: Document 07/10/21 08:12 (Rec: 07/10/21 09:02 [id number]) Out-Patient Physical Therapy Visit Information Visit Information Visit Type Treatment Note Visit Note KX modifier Pt came in with walking boot today and SPC d/t her metatarsal fx. Visit Start Time 08:15 Visit Stop Time 08:59 Total Visit Minutes 44 Visit Number 6 Number of MAGNETIC LOCATER Visits 0 PT-OP-B Current Condition Start: 06/18/21 07:58 Freq: Status: Active Protocol: Document 06/18/21 10:01 HH (Rec: 06/18/21 10:28 [email or web address]) Current Condition History of Current Condition Onset Date 04/04/21 Current Complaints L shoulder pain, difficulty lifting her arm History of Current Condition Serenity is a 75yo female here for her L shoulder pain and difficulty lifting her arm up after her recent fall on out of [employer] parking lot. Pt fell on her L side and L side of the face. She has been experiencing pain at superior lateral aspect of the L shoulder. Her major limitation is shoulder flexion and abduction and she is unable to hold any weighted object. She states she has been getting better and able to regain most AROM but with pain. She has no pain at rest and also denies any night pain, radiating pain, tingling and numbness. She has been using OH brianna and bicep curls and AROM exercise at home. Prior Treatments and Tests X-ray at L shoulder = negative pt had a course of PT here at [facility] for her R hip and gait. 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) PT-OP-C Subjective Start: 06/18/21 07:58 Freq: Status: Active Protocol: Document 07/10/21 08:12 HH (Rec: 07/10/21 09:02 [id number]) OP-PT Subjective Patient Comments Patient Comments I think my arm is not getting stronger. It is just so weak that i cant hold anything if i extend my arm out. PT-OP-E Functional Tests Start: 06/18/21 07:58 Freq: Status: Active Protocol: Document 06/18/21 10:01 (Rec: 06/18/21 10:28 [email or web address]) Functional Tests Apley's Scratch Test Action 2- Left T2 Action 2- Right T3 Action 3- Left T4 Action 3- Right T6 PT-OP-F Manual Assessment Start: 06/18/21 07:58 Freq: Status: Active Protocol: Document 06/18/21 10:01 (Rec: 06/18/21 10:28 [email or web address]) Manual Assessments Soft Tissue Assessment Soft Tissue Mobility Assessment tenderness with pressure at supraspinatus and middle deltoid PT-OP-K Range of Motion Start: 06/18/21 07:58 Freq: Status: Active Protocol: Document 06/18/21 10:01 (Rec: 06/18/21 10:28 [email or web address]) Shoulder Goniometric Range of Motion Shoulder Left Passive Testing Position Standing Flexion 160 Abduction 165 Comments reduced pain noted compared to AROM Right Active Shoulder ROM WFL Yes Testing Position Standing Flexion 160 Extension 55 Abduction 145 External Rotation at 90 degrees 90 Abduction Internal Rotation 90 Left Active Testing Position Standing Flexion 145 Extension 50 Abduction 150 External Rotation at 90 degrees 70 Abduction Internal Rotation 82 Comments pain with flexion and abduction PT-OP-L Special Tests Start: 06/18/21 07:58 Freq: Status: Active Protocol: Document 06/18/21 10:01 (Rec: 06/18/21 10:28 [email or web address]) Special Tests Shoulder Special Tests Drop Arm Rotator Cuff Test Results -ve Comments significant weakness noted Yergason's Biceps Test Results -ve painful arc Test Results +VE L Comments pain Speed's Biceps Test Results -ve [place] Test Test Results +VE Comments no clicking, significant weakness noted Samayoa Jay Impingement Test Results -ve Empty Can Test Results +VE L Comments significant weakness noted PT-OP-M Strength Start: 06/18/21 07:58 Freq: Status: Active Protocol: Document 06/18/21 10:01 HH (Rec: 06/18/21 10:28 [email or web address]) Shoulder Strength Shoulder Manual Muscle Testing Right Flexion 4+ Good+ Extension 4+ Good+ Abduction (C5) 4+ Good+ Adduction 4+ Good+ External Rotation 4+ Good+ Internal Rotation 4+ Good+ Left Flexion 3- Fair- Extension 4+ Good+ Abduction (C5) 3- Fair- Adduction 4+ Good+ External Rotation 3+ Fair+ Internal Rotation 3+ Fair+ PT-OP-Q Treatments Start: 06/18/21 07:58 Freq: Status: Active Protocol: Document 07/10/21 08:12 HH (Rec: 07/10/21 09:02 [id number]) Cardio Equipment Upper Body Ergometer (UBE) Duration (Minutes) 4 RPM 120 Seat Position 9 Height 2.5 Other 30 fwd, 30 bkwd, Therapeutic Exercises Supine Exercises shoulder punch Resistance PVC pipe Reps/Minutes 10 x 2 Sidelying Exercises hor abd Side left Resistance AROM Reps/Minutes 10 x2 Comments cued alignment toward ceiling and use peripherial vision- good self correct Sitting Exercises brianna Sitting Exercise Name flexion, abd- HEP Side bilateral Equipment Used mirror Reps/Minutes x20 for quality assessment, pause 5 sec Comments Intermitttent cues for slow pacing to allow decrease UT recruitment Standing Exercises shoulder rows Side bilateral Equipment Used level 1 band Reps/Minutes 10 x2 Comments for HEP wall slide Standing Exercise Name abd and flexion Side left Resistance HEP, pain with flexion, recommended pt to focus this more at home Reps/Minutes 3 times Comments cued stop rest/ breath various ranges for decrease UT recruit and comfort PT-OP-R Modalities Start: 06/18/21 07:58 Freq: Status: Active Protocol: Document 07/03/21 08:15 HH (Rec: 07/03/21 08:55 [id number]) Hot Pack/Cold Pack Treatment Cold Pack Location L shd Patient Position Sitting Treatment Duration (minutes) 7 Patient Tolerance Good PT-OP-T Assessment and Plan Start: 06/18/21 07:58 Freq: Status: Active Protocol: Document 07/10/21 08:12 HH (Rec: 07/10/21 09:02 [id number]) Physical Therapy Assessment Goals compensation Impairment pt compensates through shoulder elevation and trunk lateral flexion with OH Snf Goal (LTG) pt will show improved scapular and shoulder strength to reach overhead with minimal compensation of shoulder elevation and trunk lateral flexion to R LTG Duration 8 weeks strength Impairment significant weakness for flexion and abduction Short Term Goal (STG) pt will show 1 MMT improvements on L shoulder ( flexion and abduction) so she can hold a cup of water with L arm, STG Duration 4 weeks Hydro Technician Goal (LTG) pt will increase in overall shoulder strength so she can participate house chorese such as dish washing, sweeping and etc LTG Duration 8 weeks quickdash Impairment pt scores 40.9 on quick dash Short Term Goal (STG) pt will regain mobility and strength by scoring <30 on quickdash STG Duration 4 weeks Hydro Technician Goal (LTG) pt will regain mobility and strength by scoring <20 on quickdash LTG Duration 8 weeks Assessment Summary Assessment Pt reports her progress is limited because of her significant shoulder weakness. I spent time educating pt that her possible partial tear / full tear of supraspinatus tendon which can be a long rehab and requires compensation from surrounding musculature. Recommended her to consult with her shoulder specialist Dr. Mandujano for a MRI and consultation. Since pt has shown limited progress, change her POC to twice a month for follow up routine. Physical Therapy Plan Frequency and Duration Frequency of Treatment Every Other Week Duration of Treatment 12 weeks Plan of Care Start Date 07/10/21 Plan of Care End Date 10/08/21 Therapeutic Interventions Therapeutic Interventions Home Exercise Program,Joint Mobilizations,Manual Therapy, Neuromuscular Re-education, Patient/Caregiver Education, Self-Care/Home Management,Soft Tissue Mobilization,Taping, Therapeutic Activities, Therapeutic Exercises Modalities Cold Pack/Ice Massage,Electric Stimulation,Hot Packs, Infrared Therapy,Ultrasound Next Visit Focus/Plan Next Note Type Treatment Note Next Visit Plan Assess response to pulleys, wall slides improved form. Next tx add standing at wall L shld isometrics. Review HEP strengthening in gravity eliminated position hor abd, prone I,T if elke
--- NOTE | 2021-07-24 09:48 | PT.OTN ---
Current Diagnoses Other specific arthropathies, not elsewhere classified, right shoulder (07/24/21) Strain of other muscles, fascia and tendons at shoulder and upper arm level, left arm, initial encounter (07/24/21) Physical Therapy Treatment Note PT-OP-A Visit Information Start: 06/18/21 07:58 Freq: Status: Active Protocol: Document 07/24/21 08:14 HH (Rec: 07/24/21 09:48 [id number]) Out-Patient Physical Therapy Visit Information Visit Information Visit Type Treatment Note Visit Note KX modifier Pt came in with walking boot today and SPC d/t her metatarsal fx. Visit Start Time 08:15 Visit Stop Time 08:59 Total Visit Minutes 44 Visit Number 6 Number of ADVERTISEMENT COMPOSITOR Visits 0 PT-OP-B Current Condition Start: 06/18/21 07:58 Freq: Status: Active Protocol: Document 06/18/21 10:01 HH (Rec: 06/18/21 10:28 [email or web address]) Current Condition History of Current Condition Onset Date 04/04/21 Current Complaints L shoulder pain, difficulty lifting her arm History of Current Condition Serenity is a 75yo female here for her L shoulder pain and difficulty lifting her arm up after her recent fall on out of [employer] parking lot. Pt fell on her L side and L side of the face. She has been experiencing pain at superior lateral aspect of the L shoulder. Her major limitation is shoulder flexion and abduction and she is unable to hold any weighted object. She states she has been getting better and able to regain most AROM but with pain. She has no pain at rest and also denies any night pain, radiating pain, tingling and numbness. She has been using OH brianna and bicep curls and AROM exercise at home. Prior Treatments and Tests X-ray at L shoulder = negative pt had a course of PT here at [facility] for her R hip and gait. 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 Patient Reported Progress Improving PT-OP-E Functional Tests Start: 06/18/21 07:58 Freq: Status: Active Protocol: Document 06/18/21 10:01 (Rec: 06/18/21 10:28 [email or web address]) Functional Tests Apley's Scratch Test Action 2- Left T2 Action 2- Right T3 Action 3- Left T4 Action 3- Right T6 PT-OP-F Manual Assessment Start: 06/18/21 07:58 Freq: Status: Active Protocol: Document 06/18/21 10:01 (Rec: 06/18/21 10:28 [email or web address]) Manual Assessments Soft Tissue Assessment Soft Tissue Mobility Assessment tenderness with pressure at supraspinatus and middle deltoid PT-OP-K Range of Motion Start: 06/18/21 07:58 Freq: Status: Active Protocol: Document 06/18/21 10:01 (Rec: 06/18/21 10:28 [email or web address]) Shoulder Goniometric Range of Motion Shoulder Left Passive Testing Position Standing Flexion 160 Abduction 165 Comments reduced pain noted compared to AROM Right Active Shoulder ROM WFL Yes Testing Position Standing Flexion 160 Extension 55 Abduction 145 External Rotation at 90 degrees 90 Abduction Internal Rotation 90 Left Active Testing Position Standing Flexion 145 Extension 50 Abduction 150 External Rotation at 90 degrees 70 Abduction Internal Rotation 82 Comments pain with flexion and abduction PT-OP-L Special Tests Start: 06/18/21 07:58 Freq: Status: Active Protocol: Document 06/18/21 10:01 (Rec: 06/18/21 10:28 [email or web address]) Special Tests Shoulder Special Tests Drop Arm Rotator Cuff Test Results -ve Comments significant weakness noted Yergason's Biceps Test Results -ve painful arc Test Results +VE L Comments pain Speed's Biceps Test Results -ve [place] Test Test Results +VE Comments no clicking, significant weakness noted Samayoa Jay Impingement Test Results -ve Empty Can Test Results +VE L Comments significant weakness noted PT-OP-M Strength Start: 06/18/21 07:58 Freq: Status: Active Protocol: Document 06/18/21 10:01 (Rec: 06/18/21 10:28 [email or web address]) Shoulder Strength Shoulder Manual Muscle Testing Right Flexion 4+ Good+ Extension 4+ Good+ Abduction (C5) 4+ Good+ Adduction 4+ Good+ External Rotation 4+ Good+ Internal Rotation 4+ Good+ Left Flexion 3- Fair- Extension 4+ Good+ Abduction (C5) 3- Fair- Adduction 4+ Good+ External Rotation 3+ Fair+ Internal Rotation 3+ Fair+ PT-OP-Q Treatments Start: 06/18/21 07:58 Freq: Status: Active Protocol: Document 07/24/21 08:14 HH (Rec: 07/24/21 09:48 [id number]) Cardio Equipment Upper Body Ergometer (UBE) Duration (Minutes) 5 RPM 120 Seat Position 9 Height 2.5 Other 30 fwd, 30 bkwd, Therapeutic Exercises Supine Exercises supine ER Supine Exercise Name full ROM Resistance AAROM self Equipment Used SPC Reps/Minutes x10 Comments cued SLOW, tall posture, CS ext neutral that can. Sitting Exercises table slides Sitting Exercise Name flexion and abd Reps/Minutes 10 x3 Comments for HEP brianna Sitting Exercise Name flexion, abd- HEP Side bilateral Equipment Used mirror Reps/Minutes x20 for quality assessment, pause 5 sec Comments Intermitttent cues for slow pacing to allow decrease UT recruitment Standing Exercises 4 ways isometrics Standing Exercise Name flexion, abd, ER, IR Reps/Minutes 5 sec hold x 5 Comments for HEP wall slide Reps/Minutes 3 times Comments pt reports painful, DC this Manual Therapy Treatment Soft Tissue Mobilization supraspinatus tendon Mobilization Type Myofascial Release,Sustained Pressure,Trigger Point Release Intensity/Depth Moderate Body Position Sidelying Comments very sensitive today and radiating down to middle delt PT-OP-R Modalities Start: 06/18/21 07:58 Freq: Status: Active Protocol: Document 07/03/21 08:15 (Rec: 07/03/21 08:55 [id number]) Hot Pack/Cold Pack Treatment Cold Pack Location L shd Patient Position Sitting Treatment Duration (minutes) 7 Patient Tolerance Good PT-OP-T Assessment and Plan Start: 06/18/21 07:58 Freq: Status: Active Protocol: Document 07/24/21 08:14 (Rec: 07/24/21 09:48 [id number]) Physical Therapy Assessment Goals compensation Impairment pt compensates through shoulder elevation and trunk lateral flexion with OH Administrative Resident Goal (LTG) pt will show improved scapular and shoulder strength to reach overhead with minimal compensation of shoulder elevation and trunk lateral flexion to R LTG Duration 8 weeks strength Impairment significant weakness for flexion and abduction Short Term Goal (STG) pt will show 1 MMT improvements on L shoulder ( flexion and abduction) so she can hold a cup of water with L arm, STG Duration 4 weeks Administrative Resident Goal (LTG) pt will increase in overall shoulder strength so she can participate house chorese such as dish washing, sweeping and etc LTG Duration 8 weeks quickdash Impairment pt scores 40.9 on quick dash Short Term Goal (STG) pt will regain mobility and strength by scoring <30 on quickdash STG Duration 4 weeks Administrative Resident Goal (LTG) pt will regain mobility and strength by scoring <20 on quickdash LTG Duration 8 weeks Assessment Summary Assessment pt reports impproved functional mobility and strength. However, she still have difficulty with wall slide. DC that today and added table slide and 4 way isometrics and she was able to elke 10-15 times with min discomfort. Physical Therapy Plan Frequency and Duration Frequency of Treatment Every Other Week Duration of Treatment 12 weeks Plan of Care Start Date 07/10/21 Plan of Care End Date 10/08/21 Therapeutic Interventions Therapeutic Interventions Home Exercise Program,Joint Mobilizations,Manual Therapy, Neuromuscular Re-education, Patient/Caregiver Education, Self-Care/Home Management,Soft Tissue Mobilization,Taping, Therapeutic Activities, Therapeutic Exercises Modalities Cold Pack/Ice Massage,Electric Stimulation,Hot Packs, Infrared Therapy,Ultrasound Next Visit Focus/Plan Next Note Type Treatment Note Next Visit Plan Assess response to pulleys, wall slides improved form. Next tx add standing at wall L shld isometrics. Review HEP strengthening in gravity eliminated position hor abd, prone I,T if elke
--- NOTE | 2021-08-10 09:03 | PT.OTN ---
Current Diagnoses Other specific arthropathies, not elsewhere classified, right shoulder (08/10/21) Strain of other muscles, fascia and tendons at shoulder and upper arm level, left arm, initial encounter (08/10/21) Physical Therapy Treatment Note PT-OP-A Visit Information Start: 06/18/21 07:58 Freq: Status: Active Protocol: Document 08/10/21 08:15 SP (Rec: 08/10/21 09:03 SP [id number]) Out-Patient Physical Therapy Visit Information Visit Information Visit Type Treatment Note Visit Note KX modifier Pt ambulating with B shoes and no SPC today. Visit Start Time 08:15 Visit Stop Time 09:03 Total Visit Minutes 48 Visit Number 7 Number of STOREROOM SUPERVISOR Visits 1 Evaluation Information Evaluation Date 06/18/21 PT-OP-B Current Condition Start: 06/18/21 07:58 Freq: Status: Active Protocol: Document 06/18/21 10:01 HH (Rec: 06/18/21 10:28 HH [email or web address]) Current Condition History of Current Condition Onset Date 04/04/21 Current Complaints L shoulder pain, difficulty lifting her arm History of Current Condition Serenity is a 75yo female here for her L shoulder pain and difficulty lifting her arm up after her recent fall on out of [employer] parking lot. Pt fell on her L side and L side of the face. She has been experiencing pain at superior lateral aspect of the L shoulder. Her major limitation is shoulder flexion and abduction and she is unable to hold any weighted object. She states she has been getting better and able to regain most AROM but with pain. She has no pain at rest and also denies any night pain, radiating pain, tingling and numbness. She has been using OH brianna and bicep curls and AROM exercise at home. Prior Treatments and Tests X-ray at L shoulder = negative pt had a course of PT here at [facility] for her R hip and gait. 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) PT-OP-C Subjective Start: 06/18/21 07:58 Freq: Status: Active Protocol: Document 08/10/21 08:15 SP (Rec: 08/10/21 10:31 SP [id number]) OP-PT Subjective Patient Comments Patient Comments Pt reported saw ortho for L shld and pleased with AROM and wants pt to start with strengthening and gave packet of progressing exercises to improve LUE functional ROM. PT-OP-E Functional Tests Start: 06/18/21 07:58 Freq: Status: Active Protocol: Document 06/18/21 10:01 HH (Rec: 06/18/21 10:28 HH [email or web address]) Functional Tests Apley's Scratch Test Action 2- Left T2 Action 2- Right T3 Action 3- Left T4 Action 3- Right T6 PT-OP-F Manual Assessment Start: 06/18/21 07:58 Freq: Status: Active Protocol: Document 06/18/21 10:01 HH (Rec: 06/18/21 10:28 [email or web address]) Manual Assessments Soft Tissue Assessment Soft Tissue Mobility Assessment tenderness with pressure at supraspinatus and middle deltoid PT-OP-K Range of Motion Start: 06/18/21 07:58 Freq: Status: Active Protocol: Document 08/10/21 08:15 SP (Rec: 08/10/21 09:03 SP [id number]) Shoulder Goniometric Range of Motion Shoulder Left Active Shoulder ROM WFL No Testing Position Sitting Flexion 155 Extension 50 Abduction 180 External Rotation at 0 degrees Abduction 40 Internal Rotation Behind Back (text) T4 (standing) PT-OP-L Special Tests Start: 06/18/21 07:58 Freq: Status: Active Protocol: Document 06/18/21 10:01 HH (Rec: 06/18/21 10:28 [email or web address]) Special Tests Shoulder Special Tests Drop Arm Rotator Cuff Test Results -ve Comments significant weakness noted Demarcorgason's Biceps Test Results -ve painful arc Test Results +VE L Comments pain Speed's Biceps Test Results -ve [place] Test Test Results +VE Comments no clicking, significant weakness noted Samayoa Jay Impingement Test Results -ve Empty Can Test Results +VE L Comments significant weakness noted PT-OP-M Strength Start: 06/18/21 07:58 Freq: Status: Active Protocol: Document 06/18/21 10:01 HH (Rec: 06/18/21 10:28 HH [email or web address]) Shoulder Strength Shoulder Manual Muscle Testing Right Flexion 4+ Good+ Extension 4+ Good+ Abduction (C5) 4+ Good+ Adduction 4+ Good+ External Rotation 4+ Good+ Internal Rotation 4+ Good+ Left Flexion 3- Fair- Extension 4+ Good+ Abduction (C5) 3- Fair- Adduction 4+ Good+ External Rotation 3+ Fair+ Internal Rotation 3+ Fair+ PT-OP-Q Treatments Start: 06/18/21 07:58 Freq: Status: Active Protocol: Document 08/10/21 08:15 SP (Rec: 08/10/21 09:03 SP [id number]) Therapeutic Exercises Supine Exercises abd w/ elbow bent Supine Exercise Name added to HEP (deltoid strengthening) Resistance wand as needed (she was able to perform AROM but tires quickly) Equipment Used AAROM Reps/Minutes 2 reps x3 sets Comments wand at elbow to assist as needed for AAROM shoulder punch Supine Exercise Name HEP review Resistance umbrella Reps/Minutes 10 x 2 supine ER Supine Exercise Name reviewed HEP Side left Resistance #2 DB Equipment Used full ROM Reps/Minutes x10 Comments cued SLOW, B shld contact table, CS ext neutra. Sitting Exercises brianna Sitting Exercise Name flexion, abd- HEP Side bilateral Equipment Used mirror Reps/Minutes x20 for quality assessment, pause 5 sec Comments cued slow, noted little L UE tremor end range 180 deg due to muscle tension Standing Exercises 4 ways isometrics Standing Exercise Name flexion, abd, ER, IR Reps/Minutes 5 sec hold x 5 Comments review HEP wall slide Reps/Minutes x3 reps Comments pt reports feels like good strengthening, little twinges PT-OP-R Modalities Start: 06/18/21 07:58 Freq: Status: Active Protocol: Document 07/03/21 08:15 HH (Rec: 07/03/21 08:55 HH [id number]) Hot Pack/Cold Pack Treatment Cold Pack Location L shd Patient Position Sitting Treatment Duration (minutes) 7 Patient Tolerance Good PT-OP-T Assessment and Plan Start: 06/18/21 07:58 Freq: Status: Active Protocol: Document 08/10/21 08:15 SP (Rec: 08/10/21 09:03 SP [id number]) Physical Therapy Assessment Goals compensation Impairment pt compensates through shoulder elevation and trunk lateral flexion with OH Freight Weigher Goal (LTG) pt will show improved scapular and shoulder strength to reach overhead with minimal compensation of shoulder elevation and trunk lateral flexion to R LTG Duration 8 weeks strength Impairment significant weakness for flexion and abduction Short Term Goal (STG) pt will show 1 MMT improvements on L shoulder ( flexion and abduction) so she can hold a cup of water with L arm, STG Duration 4 weeks Freight Weigher Goal (LTG) pt will increase in overall shoulder strength so she can participate house chorese such as dish washing, sweeping and etc LTG Duration 8 weeks quickdash Impairment pt scores 40.9 on quick dash Short Term Goal (STG) pt will regain mobility and strength by scoring <30 on quickdash STG Duration 4 weeks Freight Weigher Goal (LTG) pt will regain mobility and strength by scoring <20 on quickdash LTG Duration 8 weeks Assessment Summary Assessment Pt improved AROM seated, focused on standing wall slides, isometric review with education helps with strengthening gravity eliminated, and improved supine strengthening ER, ABD w / elbow bent wand assist as needed both of which shown to progress endurance serratus press. Pt notices quality has helped her form function. Physical Therapy Plan Frequency and Duration Frequency of Treatment Every Other Week Duration of Treatment 12 weeks Plan of Care Start Date 07/10/21 Plan of Care End Date 10/08/21 Therapeutic Interventions Therapeutic Interventions Home Exercise Program,Joint Mobilizations,Manual Therapy, Neuromuscular Re-education, Patient/Caregiver Education, Self-Care/Home Management,Soft Tissue Mobilization,Taping, Therapeutic Activities, Therapeutic Exercises Modalities Cold Pack/Ice Massage,Electric Stimulation,Hot Packs, Infrared Therapy,Ultrasound Next Visit Focus/Plan Next Note Type Treatment Note Next Visit Plan Review supine shld ER with #, FF and abd assist needed, wall slides alignment and scap stab, isometrics maybe assess if ready for TB standing. Next tx add standing at wall L shld isometrics. Review HEP strengthening in gravity eliminated position hor abd, prone I,T if elke
--- NOTE | 2021-08-21 09:48 | PT.OTN ---
Current Diagnoses Other specific arthropathies, not elsewhere classified, right shoulder (08/21/21) Strain of other muscles, fascia and tendons at shoulder and upper arm level, left arm, initial encounter (08/21/21) Physical Therapy Treatment Note PT-OP-A Visit Information Start: 06/18/21 07:58 Freq: Status: Active Protocol: Document 08/21/21 09:01 (Rec: 08/21/21 09:48 [id number]) Out-Patient Physical Therapy Visit Information Visit Information Visit Type Treatment Note Visit Note KX modifier Pt ambulating with B shoes and no SPC today. Visit Start Time 09:05 Visit Stop Time 09:45 Total Visit Minutes 40 Visit Number 8 Number of I&C TECH Visits 0 PT-OP-B Current Condition Start: 06/18/21 07:58 Freq: Status: Active Protocol: Document 06/18/21 10:01 (Rec: 06/18/21 10:28 [email or web address]) Current Condition History of Current Condition Onset Date 04/04/21 Current Complaints L shoulder pain, difficulty lifting her arm History of Current Condition Serenity is a 75yo female here for her L shoulder pain and difficulty lifting her arm up after her recent fall on out of [employer] parking lot. Pt fell on her L side and L side of the face. She has been experiencing pain at superior lateral aspect of the L shoulder. Her major limitation is shoulder flexion and abduction and she is unable to hold any weighted object. She states she has been getting better and able to regain most AROM but with pain. She has no pain at rest and also denies any night pain, radiating pain, tingling and numbness. She has been using OH brianna and bicep curls and AROM exercise at home. Prior Treatments and Tests X-ray at L shoulder = negative pt had a course of PT here at [facility] for her R hip and gait. 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 I can hold a glass of water in front of me but not to the side. Patient Reported Progress Improving PT-OP-E Functional Tests Start: 06/18/21 07:58 Freq: Status: Active Protocol: Document 06/18/21 10:01 HH (Rec: 06/18/21 10:28 HH [email or web address]) Functional Tests Apley's Scratch Test Action 2- Left T2 Action 2- Right T3 Action 3- Left T4 Action 3- Right T6 PT-OP-F Manual Assessment Start: 06/18/21 07:58 Freq: Status: Active Protocol: Document 06/18/21 10:01 HH (Rec: 06/18/21 10:28 HH [email or web address]) Manual Assessments Soft Tissue Assessment Soft Tissue Mobility Assessment tenderness with pressure at supraspinatus and middle deltoid PT-OP-K Range of Motion Start: 06/18/21 07:58 Freq: Status: Active Protocol: Document 08/10/21 08:15 SP (Rec: 08/10/21 09:03 SP [id number]) Shoulder Goniometric Range of Motion Shoulder Left Active Shoulder ROM WFL No Testing Position Sitting Flexion 155 Extension 50 Abduction 180 External Rotation at 0 degrees Abduction 40 Internal Rotation Behind Back (text) T4 (standing) PT-OP-L Special Tests Start: 06/18/21 07:58 Freq: Status: Active Protocol: Document 06/18/21 10:01 HH (Rec: 06/18/21 10:28 HH [email or web address]) Special Tests Shoulder Special Tests Drop Arm Rotator Cuff Test Results -ve Comments significant weakness noted Demarcorselam's Biceps Test Results -ve painful arc Test Results +VE L Comments pain Speed's Biceps Test Results -ve [place] Test Test Results +VE Comments no clicking, significant weakness noted Samayoa Jay Impingement Test Results -ve Empty Can Test Results +VE L Comments significant weakness noted PT-OP-M Strength Start: 06/18/21 07:58 Freq: Status: Active Protocol: Document 06/18/21 10:01 HH (Rec: 06/18/21 10:28 HH [email or web address]) Shoulder Strength Shoulder Manual Muscle Testing Right Flexion 4+ Good+ Extension 4+ Good+ Abduction (C5) 4+ Good+ Adduction 4+ Good+ External Rotation 4+ Good+ Internal Rotation 4+ Good+ Left Flexion 3- Fair- Extension 4+ Good+ Abduction (C5) 3- Fair- Adduction 4+ Good+ External Rotation 3+ Fair+ Internal Rotation 3+ Fair+ PT-OP-Q Treatments Start: 06/18/21 07:58 Freq: Status: Active Protocol: Document 08/21/21 09:01 (Rec: 08/21/21 09:48 [id number]) Cardio Equipment Upper Body Ergometer (UBE) Duration (Minutes) 5 RPM 120 Seat Position 9 Height 2.5 Other 30 fwd, 30 bkwd, Therapeutic Exercises Supine Exercises abd w/ elbow bent Supine Exercise Name added to HEP (deltoid strengthening) Resistance wand as needed (she was able to perform AROM but tires quickly) Equipment Used AAROM Reps/Minutes 2 reps x3 sets Comments wand at elbow to assist as needed for AAROM shoulder punch Supine Exercise Name HEP review Resistance SPC Reps/Minutes 10 x 2 supine ER Supine Exercise Name reviewed HEP Side left Resistance #2 DB Equipment Used full ROM Reps/Minutes x10 Comments cued SLOW, B shld contact table, CS ext neutra. Sitting Exercises table slides Sitting Exercise Name flexion and abd Reps/Minutes 10 x3 Comments for HEP, full range no discomfort Standing Exercises wall slide Comments hold PT-OP-R Modalities Start: 06/18/21 07:58 Freq: Status: Active Protocol: Document 07/03/21 08:15 (Rec: 07/03/21 08:55 [id number]) Hot Pack/Cold Pack Treatment Cold Pack Location L shd Patient Position Sitting Treatment Duration (minutes) 7 Patient Tolerance Good PT-OP-T Assessment and Plan Start: 06/18/21 07:58 Freq: Status: Active Protocol: Document 08/21/21 09:01 (Rec: 08/21/21 09:48 [id number]) Physical Therapy Assessment Goals compensation Impairment pt compensates through shoulder elevation and trunk lateral flexion with OH Shelter Goal (LTG) pt will show improved scapular and shoulder strength to reach overhead with minimal compensation of shoulder elevation and trunk lateral flexion to R LTG Duration 8 weeks strength Impairment significant weakness for flexion and abduction Short Term Goal (STG) pt will show 1 MMT improvements on L shoulder ( flexion and abduction) so she can hold a cup of water with L arm, STG Duration 4 weeks Shelter Goal (LTG) pt will increase in overall shoulder strength so she can participate house chorese such as dish washing, sweeping and etc LTG Duration 8 weeks quickdash Impairment pt scores 40.9 on quick dash Short Term Goal (STG) pt will regain mobility and strength by scoring <30 on quickdash STG Duration 4 weeks Cardiac Rehab Nurse Goal (LTG) pt will regain mobility and strength by scoring <20 on quickdash LTG Duration 8 weeks Assessment Summary Assessment pt has been progressing well who has full AROM for flexion and abduction but limited strength. Recommended her to replace tables slides full ROM with wall slide d/t pain she experienced. Will progress to more upright exerciess next visit Physical Therapy Plan Frequency and Duration Frequency of Treatment Every Other Week Duration of Treatment 12 weeks Plan of Care Start Date 07/10/21 Plan of Care End Date 10/08/21 Therapeutic Interventions Therapeutic Interventions Home Exercise Program,Joint Mobilizations,Manual Therapy, Neuromuscular Re-education, Patient/Caregiver Education, Self-Care/Home Management,Soft Tissue Mobilization,Taping, Therapeutic Activities, Therapeutic Exercises Modalities Cold Pack/Ice Massage,Electric Stimulation,Hot Packs, Infrared Therapy,Ultrasound Next Visit Focus/Plan Next Note Type Progress Note Next Visit Plan Review supine shld ER with #, FF and abd assist needed, wall slides alignment and scap stab, isometrics maybe assess if ready for TB standing. Next tx add standing at wall L shld isometrics. Review HEP strengthening in gravity eliminated position hor abd, prone I,T if elke
--- NOTE | 2021-09-05 09:01 | PT.OTN ---
Current Diagnoses Other specific arthropathies, not elsewhere classified, right shoulder (09/05/21) Strain of other muscles, fascia and tendons at shoulder and upper arm level, left arm, initial encounter (09/05/21) Physical Therapy Treatment Note PT-OP-A Visit Information Start: 06/18/21 07:58 Freq: Status: Active Protocol: Document 09/05/21 08:10 (Rec: 09/05/21 09:01 [id number]) Out-Patient Physical Therapy Visit Information Visit Information Visit Type Treatment Note Visit Note KX modifier . Visit Start Time 08:15 Visit Stop Time 09:00 Total Visit Minutes 45 Visit Number 9 Number of VEGETABLE FARMING SUPERVISOR Visits 0 PT-OP-B Current Condition Start: 06/18/21 07:58 Freq: Status: Active Protocol: Document 06/18/21 10:01 (Rec: 06/18/21 10:28 [email or web address]) Current Condition History of Current Condition Onset Date 04/04/21 Current Complaints L shoulder pain, difficulty lifting her arm History of Current Condition Serenity is a 75yo female here for her L shoulder pain and difficulty lifting her arm up after her recent fall on out of [employer] parking lot. Pt fell on her L side and L side of the face. She has been experiencing pain at superior lateral aspect of the L shoulder. Her major limitation is shoulder flexion and abduction and she is unable to hold any weighted object. She states she has been getting better and able to regain most AROM but with pain. She has no pain at rest and also denies any night pain, radiating pain, tingling and numbness. She has been using OH brianna and bicep curls and AROM exercise at home. Prior Treatments and Tests X-ray at L shoulder = negative pt had a course of PT here at [facility] for her R hip and gait. 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 I also just had a booster shot so my L arm is sore. Patient Reported Progress Same PT-OP-E Functional Tests Start: 06/18/21 07:58 Freq: Status: Active Protocol: Document 06/18/21 10:01 HH (Rec: 06/18/21 10:28 HH [email or web address]) Functional Tests Apley's Scratch Test Action 2- Left T2 Action 2- Right T3 Action 3- Left T4 Action 3- Right T6 PT-OP-F Manual Assessment Start: 06/18/21 07:58 Freq: Status: Active Protocol: Document 06/18/21 10:01 HH (Rec: 06/18/21 10:28 HH [email or web address]) Manual Assessments Soft Tissue Assessment Soft Tissue Mobility Assessment tenderness with pressure at supraspinatus and middle deltoid PT-OP-K Range of Motion Start: 06/18/21 07:58 Freq: Status: Active Protocol: Document 08/10/21 08:15 SP (Rec: 08/10/21 09:03 SP [id number]) Shoulder Goniometric Range of Motion Shoulder Left Active Shoulder ROM WFL No Testing Position Sitting Flexion 155 Extension 50 Abduction 180 External Rotation at 0 degrees Abduction 40 Internal Rotation Behind Back (text) T4 (standing) PT-OP-L Special Tests Start: 06/18/21 07:58 Freq: Status: Active Protocol: Document 06/18/21 10:01 HH (Rec: 06/18/21 10:28 HH [email or web address]) Special Tests Shoulder Special Tests Drop Arm Rotator Cuff Test Results -ve Comments significant weakness noted Demarcoranason's Biceps Test Results -ve painful arc Test Results +VE L Comments pain Speed's Biceps Test Results -ve [place] Test Test Results +VE Comments no clicking, significant weakness noted Samayoa Jay Impingement Test Results -ve Empty Can Test Results +VE L Comments significant weakness noted PT-OP-M Strength Start: 06/18/21 07:58 Freq: Status: Active Protocol: Document 06/18/21 10:01 HH (Rec: 06/18/21 10:28 HH [email or web address]) Shoulder Strength Shoulder Manual Muscle Testing Right Flexion 4+ Good+ Extension 4+ Good+ Abduction (C5) 4+ Good+ Adduction 4+ Good+ External Rotation 4+ Good+ Internal Rotation 4+ Good+ Left Flexion 3- Fair- Extension 4+ Good+ Abduction (C5) 3- Fair- Adduction 4+ Good+ External Rotation 3+ Fair+ Internal Rotation 3+ Fair+ PT-OP-Q Treatments Start: 06/18/21 07:58 Freq: Status: Active Protocol: Document 09/05/21 08:10 (Rec: 09/05/21 09:01 [id number]) Cardio Equipment Upper Body Ergometer (UBE) Duration (Minutes) 5 RPM 120 Seat Position 9 Height 2.5 Other 30 fwd, 30 bkwd, Therapeutic Exercises Supine Exercises supine ER Supine Exercise Name reviewed HEP Side left Resistance #1 DB Equipment Used full ROM Reps/Minutes x10 x2 Comments for HEP Sidelying Exercises shoulder abd Sidelying Exercise Name with cane assist Reps/Minutes 10 x2 Comments for HEP hor abd Side left Resistance AROM Equipment Used 1lb DB Reps/Minutes 10 x2 Comments cued alignment toward ceiling and use peripherial vision- good self correct Sitting Exercises shoulder AROM Sitting Exercise Name scaption table slides Sitting Exercise Name review,flexion and abd Reps/Minutes 10 x2 Comments for HEP, full range no discomfort PT-OP-R Modalities Start: 06/18/21 07:58 Freq: Status: Active Protocol: Document 07/03/21 08:15 HH (Rec: 07/03/21 08:55 [id number]) Hot Pack/Cold Pack Treatment Cold Pack Location L shd Patient Position Sitting Treatment Duration (minutes) 7 Patient Tolerance Good PT-OP-T Assessment and Plan Start: 06/18/21 07:58 Freq: Status: Active Protocol: Document 09/05/21 08:10 (Rec: 09/05/21 09:01 [id number]) Physical Therapy Assessment Goals compensation Impairment pt compensates through shoulder elevation and trunk lateral flexion with OH Assistant Statistician Goal (LTG) pt will show improved scapular and shoulder strength to reach overhead with minimal compensation of shoulder elevation and trunk lateral flexion to R LTG Duration 8 weeks strength Impairment significant weakness for flexion and abduction Short Term Goal (STG) pt will show 1 MMT improvements on L shoulder ( flexion and abduction) so she can hold a cup of water with L arm, STG Duration 4 weeks Fpc Goal (LTG) pt will increase in overall shoulder strength so she can participate house chorese such as dish washing, sweeping and etc LTG Duration 8 weeks quickdash Impairment pt scores 40.9 on quick dash Short Term Goal (STG) pt will regain mobility and strength by scoring <30 on quickdash STG Duration 4 weeks Fpc Goal (LTG) pt will regain mobility and strength by scoring <20 on quickdash LTG Duration 8 weeks Assessment Summary Assessment pt reports soreness after her booster shot on L shoulder. Her AROM is WFL but lack of strength. Consolidated her HEP today with AAROM/AROM for flexoin, ER , abduction in supine. Educated pt that her strength might not be fully recovered d/t the nature of torn RTC. She expresses good understanding. Physical Therapy Plan Frequency and Duration Frequency of Treatment Every Other Week Duration of Treatment 12 weeks Plan of Care Start Date 07/10/21 Plan of Care End Date 10/08/21 Therapeutic Interventions Therapeutic Interventions Home Exercise Program,Joint Mobilizations,Manual Therapy, Neuromuscular Re-education, Patient/Caregiver Education, Self-Care/Home Management,Soft Tissue Mobilization,Taping, Therapeutic Activities, Therapeutic Exercises Modalities Cold Pack/Ice Massage,Electric Stimulation,Hot Packs, Infrared Therapy,Ultrasound Next Visit Focus/Plan Next Note Type Progress Note Next Visit Plan Review supine shld ER with #, FF and abd assist needed, wall slides alignment and scap stab, isometrics maybe assess if ready for TB standing. Next tx add standing at wall L shld isometrics. Review HEP strengthening in gravity eliminated position hor abd, prone I,T if elke
--- NOTE | 2021-09-24 14:54 | PT.OPPOC ---
Physical, Occupational & Speech Therapy At [facility] Current Diagnoses Other specific arthropathies, not elsewhere classified, right shoulder (09/24/21) Strain of other muscles, fascia and tendons at shoulder and upper arm level, left arm, initial encounter (09/24/21) Visit Care Team Role Provider Type Joshua Chin MD Primary Care Provider Physician Specialty: Internal Medicine Address: [address] [place] [address], [address], [place], [address] Email: [email or web address] Juancho Mandujano MD Attending Provider Physician Referring Provider Specialty: Orthopedic Surgery Address: [address] [place] [address], [id number] Email: [email or web address] Plan Of Care PT-OP-T Assessment and Plan Start: 06/18/21 07:58 Freq: Status: Active Protocol: Document 09/24/21 13:46 HH (Rec: 09/24/21 14:54 HH [id number]) Physical Therapy Assessment Goals compensation Impairment pt compensates through shoulder elevation and trunk lateral flexion with OH Short Term Goal (STG) 09/24 goal met pt has minimal L shoulder hike while performing active shoulder flexion and abduction . Inventory Clerk Goal (LTG) pt will show improved scapular and shoulder strength to reach overhead with minimal compensation of shoulder elevation and trunk lateral flexion to R LTG Duration 8 weeks strength Impairment significant weakness for flexion and abduction Short Term Goal (STG) 09/24 partially met pt is able to hold a cup without water with an extended arm pt will show 1 MMT improvements on L shoulder ( flexion and abduction) so she can hold a cup of water with L arm, STG Duration 4 weeks Inventory Clerk Goal (LTG) pt will increase in overall shoulder strength so she can participate house chorese such as dish washing, sweeping and etc LTG Duration 8 weeks quickdash Impairment pt scores 40.9 on quick dash Short Term Goal (STG) 09/24 goal met pt scores 25 on quickdash pt will regain mobility and strength by scoring <30 on quickdash STG Duration 4 weeks Inventory Clerk Goal (LTG) pt will regain mobility and strength by scoring <20 on quickdash LTG Duration 8 weeks Assessment Summary Assessment Pt stated her overall L shoulder strength has slightly improved. She has been very compliant to her HEP daily. She has good AROM but lack of endurance/ strength for any OH /lifting repetitively. I recommended her to acquire a portable UBE for home use and consolidated her HEP today. This is my last session with patient due to job relocation. Pt will continue her POC with a new primary physical therapist. Pt agreeable to aforementioned management for her torn RTC and continous skilled PT for endurance and strength training. Physical Therapy Plan Frequency and Duration Frequency of Treatment Every Other Week Duration of Treatment 12 weeks Plan of Care Start Date 09/24/21 Plan of Care End Date 12/23/21 Therapeutic Interventions Therapeutic Interventions Home Exercise Program,Joint Mobilizations,Manual Therapy, Neuromuscular Re-education, Patient/Caregiver Education, Self-Care/Home Management,Soft Tissue Mobilization,Taping, Therapeutic Activities, Therapeutic Exercises Modalities Cold Pack/Ice Massage,Electric Stimulation,Hot Packs, Infrared Therapy,Ultrasound Next Visit Focus/Plan Next Note Type Progress Note Next Visit Plan Review supine shld ER with #, FF and abd assist needed, wall slides alignment and scap stab, isometrics maybe assess if ready for TB standing. Next tx add standing at wall L shld isometrics. Review HEP strengthening in gravity eliminated position hor abd, prone I,T if elke Plan of Care Dates Plan of Care Start Date 09/24/21 Plan of Care End Date 12/23/21 Electronically Signed by: Lalito Trujillo, PT 09/24/21 [id number] Please Sign and Return: I have reviewed this Plan of Care and certify that the skilled therapy services above are required to meet the patient?s needs. Physician Signature Date Printed Name and Credentials Clinical Instructor Signature Printed Name and Credentials
--- NOTE | 2021-09-24 14:54 | PT.OTN ---
Current Diagnoses Other specific arthropathies, not elsewhere classified, right shoulder (09/24/21) Strain of other muscles, fascia and tendons at shoulder and upper arm level, left arm, initial encounter (09/24/21) Physical Therapy Treatment Note PT-OP-A Visit Information Start: 06/18/21 07:58 Freq: Status: Active Protocol: Document 09/24/21 13:46 HH (Rec: 09/24/21 14:54 [id number]) Out-Patient Physical Therapy Visit Information Visit Information Visit Type Progress Note Visit Note KX modifier . Visit Start Time 13:48 Visit Stop Time 14:30 Total Visit Minutes 42 Visit Number 10 Number of FLIGHT TEST DATA ACQUISITION TECHNICIAN Visits 0 PT-OP-B Current Condition Start: 06/18/21 07:58 Freq: Status: Active Protocol: Document 06/18/21 10:01 HH (Rec: 06/18/21 10:28 [email or web address]) Current Condition History of Current Condition Onset Date 04/04/21 Current Complaints L shoulder pain, difficulty lifting her arm History of Current Condition Serenity is a 75yo female here for her L shoulder pain and difficulty lifting her arm up after her recent fall on out of [employer] parking lot. Pt fell on her L side and L side of the face. She has been experiencing pain at superior lateral aspect of the L shoulder. Her major limitation is shoulder flexion and abduction and she is unable to hold any weighted object. She states she has been getting better and able to regain most AROM but with pain. She has no pain at rest and also denies any night pain, radiating pain, tingling and numbness. She has been using OH brianna and bicep curls and AROM exercise at home. Prior Treatments and Tests X-ray at L shoulder = negative pt had a course of PT here at [facility] for her R hip and gait. 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) PT-OP-C Subjective Start: 06/18/21 07:58 Freq: Status: Active Protocol: Document 09/24/21 13:46 HH (Rec: 09/24/21 14:54 [id number]) OP-PT Subjective Patient Comments Patient Comments My strength has gotten better slowly but isometrics strengthening ex tends to be painful Patient Reported Progress Improving Patient Questionnaires Quick Dash- Upper Extremity Quick Dash UE Score 25 Quick Dash UE Impairment 20 to 39% Impaired (Score 20- 39) PT-OP-E Functional Tests Start: 06/18/21 07:58 Freq: Status: Active Protocol: Document 06/18/21 10:01 HH (Rec: 06/18/21 10:28 [email or web address]) Functional Tests Apley's Scratch Test Action 2- Left T2 Action 2- Right T3 Action 3- Left T4 Action 3- Right T6 PT-OP-F Manual Assessment Start: 06/18/21 07:58 Freq: Status: Active Protocol: Document 06/18/21 10:01 HH (Rec: 06/18/21 10:28 [email or web address]) Manual Assessments Soft Tissue Assessment Soft Tissue Mobility Assessment tenderness with pressure at supraspinatus and middle deltoid PT-OP-K Range of Motion Start: 06/18/21 07:58 Freq: Status: Active Protocol: Document 09/24/21 13:46 HH (Rec: 09/24/21 14:54 [id number]) Shoulder Goniometric Range of Motion Shoulder Right Active Shoulder ROM WFL Yes Testing Position Standing Flexion 160 Extension 55 Abduction 145 External Rotation at 90 degrees 90 Abduction Internal Rotation 90 Left Active Shoulder ROM WFL No Testing Position Sitting Flexion 153 Extension 55 Abduction 170 External Rotation at 90 degrees 65 Abduction External Rotation at 0 degrees Abduction 65 Internal Rotation 62 PT-OP-L Special Tests Start: 06/18/21 07:58 Freq: Status: Active Protocol: Document 06/18/21 10:01 HH (Rec: 06/18/21 10:28 [email or web address]) Special Tests Shoulder Special Tests Drop Arm Rotator Cuff Test Results -ve Comments significant weakness noted Yergason's Biceps Test Results -ve painful arc Test Results +VE L Comments pain Speed's Biceps Test Results -ve [place] Test Test Results +VE Comments no clicking, significant weakness noted Samayoa Jay Impingement Test Results -ve Empty Can Test Results +VE L Comments significant weakness noted PT-OP-M Strength Start: 06/18/21 07:58 Freq: Status: Active Protocol: Document 09/24/21 13:46 HH (Rec: 09/24/21 14:54 [id number]) Shoulder Strength Shoulder Manual Muscle Testing Right Flexion 4+ Good+ Extension 4+ Good+ Abduction (C5) 4+ Good+ Adduction 4+ Good+ External Rotation 4+ Good+ Internal Rotation 4+ Good+ Left Flexion 3+ Fair+ Extension 4+ Good+ Abduction (C5) 3+ Fair+ Adduction 4+ Good+ External Rotation 3+ Fair+ Internal Rotation 4 Good Comments pain with resisted ER PT-OP-Q Treatments Start: 06/18/21 07:58 Freq: Status: Active Protocol: Document 09/24/21 13:46 HH (Rec: 09/24/21 14:54 [id number]) Therapeutic Exercises Supine Exercises abd w/ elbow bent Supine Exercise Name added to HEP (deltoid strengthening) Resistance wand as needed (she was able to perform AROM but tires quickly) Equipment Used AAROM Reps/Minutes 2 reps x3 sets Comments wand at elbow to assist as needed for AAROM supine ER Supine Exercise Name reviewed HEP Side left Resistance #1 DB Equipment Used full ROM Reps/Minutes x10 x2 Comments for HEP Sidelying Exercises hor abd Side left Resistance AROM Equipment Used 1lb DB Reps/Minutes 10 x2 Comments cued alignment toward ceiling and use peripherial vision- good self correct Sitting Exercises brianna Sitting Exercise Name flexion, abd- HEP Side bilateral Equipment Used mirror Reps/Minutes x20 for quality assessment, pause 5 sec Comments cued slow, noted little L UE tremor end range 180 deg due to muscle tension Manual Therapy Treatment Soft Tissue Mobilization supraspinatus tendon Mobilization Type Myofascial Release,Sustained Pressure,Trigger Point Release Intensity/Depth Moderate Body Position Sidelying Comments very sensitive today and radiating down to middle delt PT-OP-R Modalities Start: 06/18/21 07:58 Freq: Status: Active Protocol: Document 07/03/21 08:15 HH (Rec: 07/03/21 08:55 [id number]) Hot Pack/Cold Pack Treatment Cold Pack Location L shd Patient Position Sitting Treatment Duration (minutes) 7 Patient Tolerance Good PT-OP-T Assessment and Plan Start: 06/18/21 07:58 Freq: Status: Active Protocol: Document 09/24/21 13:46 HH (Rec: 09/24/21 14:54 [id number]) Physical Therapy Assessment Goals compensation Impairment pt compensates through shoulder elevation and trunk lateral flexion with OH Short Term Goal (STG) 09/24 goal met pt has minimal L shoulder hike while performing active shoulder flexion and abduction . Music Publisher Goal (LTG) pt will show improved scapular and shoulder strength to reach overhead with minimal compensation of shoulder elevation and trunk lateral flexion to R LTG Duration 8 weeks strength Impairment significant weakness for flexion and abduction Short Term Goal (STG) 09/24 partially met pt is able to hold a cup without water with an extended arm pt will show 1 MMT improvements on L shoulder ( flexion and abduction) so she can hold a cup of water with L arm, STG Duration 4 weeks Longterm Goal (LTG) pt will increase in overall shoulder strength so she can participate house chorese such as dish washing, sweeping and etc LTG Duration 8 weeks quickdash Impairment pt scores 40.9 on quick dash Short Term Goal (STG) 09/24 goal met pt scores 25 on quickdash pt will regain mobility and strength by scoring <30 on quickdash STG Duration 4 weeks Longterm Goal (LTG) pt will regain mobility and strength by scoring <20 on quickdash LTG Duration 8 weeks Assessment Summary Assessment Pt stated her overall L shoulder strength has slightly improved. She has been very compliant to her HEP daily. She has good AROM but lack of endurance/ strength for any OH /lifting repetitively. I recommended her to acquire a portable UBE for home use and consolidated her HEP today. This is my last session with patient due to job relocation. Pt will continue her POC with a new primary physical therapist. Pt agreeable to aforementioned management for her torn RTC and continous skilled PT for endurance and strength training. Physical Therapy Plan Frequency and Duration Frequency of Treatment Every Other Week Duration of Treatment 12 weeks Plan of Care Start Date 09/24/21 Plan of Care End Date 12/23/21 Therapeutic Interventions Therapeutic Interventions Home Exercise Program,Joint Mobilizations,Manual Therapy, Neuromuscular Re-education, Patient/Caregiver Education, Self-Care/Home Management,Soft Tissue Mobilization,Taping, Therapeutic Activities, Therapeutic Exercises Modalities Cold Pack/Ice Massage,Electric Stimulation,Hot Packs, Infrared Therapy,Ultrasound Next Visit Focus/Plan Next Note Type Progress Note Next Visit Plan Review supine shld ER with #, FF and abd assist needed, wall slides alignment and scap stab, isometrics maybe assess if ready for TB standing. Next tx add standing at wall L shld isometrics. Review HEP strengthening in gravity eliminated position hor abd, prone I,T if elke
--- NOTE | 2021-10-03 18:24 | PT.OTN ---
Current Diagnoses Other specific arthropathies, not elsewhere classified, right shoulder (10/03/21) Strain of other muscles, fascia and tendons at shoulder and upper arm level, left arm, initial encounter (10/03/21) Physical Therapy Treatment Note PT-OP-A Visit Information Start: 06/18/21 07:58 Freq: Status: Active Protocol: Document 10/03/21 09:04 ELVA (Rec: 10/03/21 09:26 ELVA [id number]) Out-Patient Physical Therapy Visit Information Visit Information Visit Type Treatment Note Visit Note KX modifier SPT Sue was directly supervised by FERMIN Webb Visit Start Time 08:16 Visit Stop Time 09:00 Total Visit Minutes 44 Visit Number 11 Number of ADULT BASIC EDUCATION INSTRUCTOR Visits 0 PT-OP-B Current Condition Start: 06/18/21 07:58 Freq: Status: Active Protocol: Document 06/18/21 10:01 HH (Rec: 06/18/21 10:28 [email or web address]) Current Condition History of Current Condition Onset Date 04/04/21 Current Complaints L shoulder pain, difficulty lifting her arm History of Current Condition Serenity is a 75yo female here for her L shoulder pain and difficulty lifting her arm up after her recent fall on out of [employer] parking lot. Pt fell on her L side and L side of the face. She has been experiencing pain at superior lateral aspect of the L shoulder. Her major limitation is shoulder flexion and abduction and she is unable to hold any weighted object. She states she has been getting better and able to regain most AROM but with pain. She has no pain at rest and also denies any night pain, radiating pain, tingling and numbness. She has been using OH brianna and bicep curls and AROM exercise at home. Prior Treatments and Tests X-ray at L shoulder = negative pt had a course of PT here at [facility] for her R hip and gait. 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 Pt states she has increased ROM, but still feels weak. Pt reports she has difficulty putting on a blouse and moving a cup of water from her mouth back to table in front of her. Patient Reported Progress Improving PT-OP-E Functional Tests Start: 06/18/21 07:58 Freq: Status: Active Protocol: Document 06/18/21 10:01 (Rec: 06/18/21 10:28 [email or web address]) Functional Tests Apley's Scratch Test Action 2- Left T2 Action 2- Right T3 Action 3- Left T4 Action 3- Right T6 PT-OP-F Manual Assessment Start: 06/18/21 07:58 Freq: Status: Active Protocol: Document 06/18/21 10:01 (Rec: 06/18/21 10:28 [email or web address]) Manual Assessments Soft Tissue Assessment Soft Tissue Mobility Assessment tenderness with pressure at supraspinatus and middle deltoid PT-OP-K Range of Motion Start: 06/18/21 07:58 Freq: Status: Active Protocol: Document 09/24/21 13:46 HH (Rec: 09/24/21 14:54 [id number]) Shoulder Goniometric Range of Motion Shoulder Right Active Shoulder ROM WFL Yes Testing Position Standing Flexion 160 Extension 55 Abduction 145 External Rotation at 90 degrees 90 Abduction Internal Rotation 90 Left Active Shoulder ROM WFL No Testing Position Sitting Flexion 153 Extension 55 Abduction 170 External Rotation at 90 degrees 65 Abduction External Rotation at 0 degrees Abduction 65 Internal Rotation 62 PT-OP-L Special Tests Start: 06/18/21 07:58 Freq: Status: Active Protocol: Document 06/18/21 10:01 (Rec: 06/18/21 10:28 [email or web address]) Special Tests Shoulder Special Tests Drop Arm Rotator Cuff Test Results -ve Comments significant weakness noted Markus's Biceps Test Results -ve painful arc Test Results +VE L Comments pain Speed's Biceps Test Results -ve [place] Test Test Results +VE Comments no clicking, significant weakness noted Samayoa Jay Impingement Test Results -ve Empty Can Test Results +VE L Comments significant weakness noted PT-OP-M Strength Start: 06/18/21 07:58 Freq: Status: Active Protocol: Document 09/24/21 13:46 HH (Rec: 09/24/21 14:54 [id number]) Shoulder Strength Shoulder Manual Muscle Testing Right Flexion 4+ Good+ Extension 4+ Good+ Abduction (C5) 4+ Good+ Adduction 4+ Good+ External Rotation 4+ Good+ Internal Rotation 4+ Good+ Left Flexion 3+ Fair+ Extension 4+ Good+ Abduction (C5) 3+ Fair+ Adduction 4+ Good+ External Rotation 3+ Fair+ Internal Rotation 4 Good Comments pain with resisted ER PT-OP-Q Treatments Start: 06/18/21 07:58 Freq: Status: Active Protocol: Document 10/03/21 09:04 J (Rec: 10/03/21 09:26 [id number]) Cardio Equipment Upper Body Ergometer (UBE) Duration (Minutes) 5 RPM 120 Seat Position 10 Height 4 Other 2 minutes fwd, 2 minutes back Therapeutic Exercises Supine Exercises abd w/ elbow bent Equipment Used AAROM, SPC Reps/Minutes 1x12 Comments wand at elbow to assist as needed for AAROM shoulder punch Supine Exercise Name HEP review Resistance SPC Reps/Minutes 1x15 supine ER Side left Resistance #1 DB Reps/Minutes 1x12 w/wt, 1x5 w/o wt Comments cue for painfree range, still limited ER Prone Exercises I, Y, T Prone Exercise Name I, Y, T Side left Equipment Used bodyweight Reps/Minutes 2x10, 1x5 Comments T was painful so discontinued. cue for scap movement, ROM. Sidelying Exercises shoulder abd Equipment Used 1lb DB Reps/Minutes 1x15 hor abd Side left Resistance AROM Equipment Used 1lb DB Reps/Minutes 1x15 Sitting Exercises AAROM Sitting Exercise Name Shld flexion and abduction Reps/Minutes 2x12 Comments cues for ROM, scapula down and back shoulder AROM Sitting Exercise Name ER Side left Reps/Minutes 1x15 Comments cues for ROM, scapula down and back Standing Exercises wall slide Standing Exercise Name small ROM: bottom 2 inches Reps/Minutes 1x8 Comments cue for posture, scapula down and back Manual Therapy Treatment Soft Tissue Mobilization supraspinatus tendon Body Location tendon and muscle Mobilization Type Myofascial Release,Sustained Pressure,Trigger Point Release Intensity/Depth Moderate Body Position Sidelying ribcage Body Location T10 Mobilization Type Myofascial Release Intensity/Depth Moderate Body Position Sidelying PT-OP-R Modalities Start: 06/18/21 07:58 Freq: Status: Active Protocol: Document 10/03/21 09:04 JG (Rec: 10/03/21 09:26 JG [id number]) Hot Pack/Cold Pack Treatment Heat Location L shld Patient Position Sidelying Treatment Duration (minutes) 10 Patient Tolerance Good PT-OP-T Assessment and Plan Start: 06/18/21 07:58 Freq: Status: Active Protocol: Document 10/03/21 09:04 JG (Rec: 10/03/21 09:26 J [id number]) Physical Therapy Assessment Goals compensation Impairment pt compensates through shoulder elevation and trunk lateral flexion with OH Short Term Goal (STG) 09/24 goal met pt has minimal L shoulder hike while performing active shoulder flexion and abduction . Jail Goal (LTG) pt will show improved scapular and shoulder strength to reach overhead with minimal compensation of shoulder elevation and trunk lateral flexion to R LTG Duration 8 weeks strength Impairment significant weakness for flexion and abduction Short Term Goal (STG) 09/24 partially met pt is able to hold a cup without water with an extended arm pt will show 1 MMT improvements on L shoulder ( flexion and abduction) so she can hold a cup of water with L arm, STG Duration 4 weeks Jail Goal (LTG) pt will increase in overall shoulder strength so she can participate house chorese such as dish washing, sweeping and etc LTG Duration 8 weeks quickdash Impairment pt scores 40.9 on quick dash Short Term Goal (STG) 09/24 goal met pt scores 25 on quickdash pt will regain mobility and strength by scoring <30 on quickdash STG Duration 4 weeks Jail Goal (LTG) pt will regain mobility and strength by scoring <20 on quickdash LTG Duration 8 weeks Assessment Summary Assessment Pt brought in HEP from [facility] DPT for SPT and PT to view. Pt was willing to try seated and prone exercises and did well with ROM. Pt found prone exercises saji challenging w/ strength and expressed she knew they were good for her. Pt also found maintaining posture challenging in both seated and standing positions. Continued PT focusing on ideal posture to maximize shld alignmnet during functional movements is important. Physical Therapy Plan Frequency and Duration Frequency of Treatment Every Other Week Duration of Treatment 12 weeks Plan of Care Start Date 09/24/21 Plan of Care End Date 12/23/21 Therapeutic Interventions Therapeutic Interventions Home Exercise Program,Joint Mobilizations,Manual Therapy, Neuromuscular Re-education, Patient/Caregiver Education, Self-Care/Home Management,Soft Tissue Mobilization,Taping, Therapeutic Activities, Therapeutic Exercises Modalities Cold Pack/Ice Massage,Electric Stimulation,Hot Packs, Infrared Therapy,Ultrasound Next Visit Focus/Plan Next Note Type Treatment Note Next Visit Plan Review sitting and standing posture. Continue progressing seated strengthening and ROM exercises. Continue prone I and Y.
--- NOTE | 2021-10-08 09:05 | PT.OTN ---
Current Diagnoses Other specific arthropathies, not elsewhere classified, right shoulder (10/08/21) Strain of other muscles, fascia and tendons at shoulder and upper arm level, left arm, initial encounter (10/08/21) Physical Therapy Treatment Note PT-OP-A Visit Information Start: 06/18/21 07:58 Freq: Status: Active Protocol: Document 10/08/21 08:19 SP (Rec: 10/08/21 09:06 SP [id number]) Out-Patient Physical Therapy Visit Information Visit Information Visit Type Treatment Note Visit Note KX modifier Visit Start Time 08:19 Visit Stop Time 09:05 Total Visit Minutes 46 Visit Number 12 Number of ABSORPTION OPERATOR Visits 1 Evaluation Information Evaluation Date 06/18/21 Precautions Precautions 7 falls in last year depression psychological disorder (didnt specific) PT-OP-B Current Condition Start: 06/18/21 07:58 Freq: Status: Active Protocol: Document 06/18/21 10:01 HH (Rec: 06/18/21 10:28 HH [email or web address]) Current Condition History of Current Condition Onset Date 04/04/21 Current Complaints L shoulder pain, difficulty lifting her arm History of Current Condition Serenity is a 75yo female here for her L shoulder pain and difficulty lifting her arm up after her recent fall on out of [employer] parking lot. Pt fell on her L side and L side of the face. She has been experiencing pain at superior lateral aspect of the L shoulder. Her major limitation is shoulder flexion and abduction and she is unable to hold any weighted object. She states she has been getting better and able to regain most AROM but with pain. She has no pain at rest and also denies any night pain, radiating pain, tingling and numbness. She has been using OH brianna and bicep curls and AROM exercise at home. Prior Treatments and Tests X-ray at L shoulder = negative pt had a course of PT here at [facility] for her R hip and gait. 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 I think I am doing pretty well over all, still can do thing in certain positions. Still unable to citrus picker cup and bring toward her and reach up over head due to weakness still. Patient Reported Progress Improving PT-OP-E Functional Tests Start: 06/18/21 07:58 Freq: Status: Active Protocol: Document 06/18/21 10:01 (Rec: 06/18/21 10:28 [email or web address]) Functional Tests Apley's Scratch Test Action 2- Left T2 Action 2- Right T3 Action 3- Left T4 Action 3- Right T6 PT-OP-F Manual Assessment Start: 06/18/21 07:58 Freq: Status: Active Protocol: Document 06/18/21 10:01 (Rec: 06/18/21 10:28 [email or web address]) Manual Assessments Soft Tissue Assessment Soft Tissue Mobility Assessment tenderness with pressure at supraspinatus and middle deltoid PT-OP-K Range of Motion Start: 06/18/21 07:58 Freq: Status: Active Protocol: Document 09/24/21 13:46 (Rec: 09/24/21 14:54 [id number]) Shoulder Goniometric Range of Motion Shoulder Right Active Shoulder ROM WFL Yes Testing Position Standing Flexion 160 Extension 55 Abduction 145 External Rotation at 90 degrees 90 Abduction Internal Rotation 90 Left Active Shoulder ROM WFL No Testing Position Sitting Flexion 153 Extension 55 Abduction 170 External Rotation at 90 degrees 65 Abduction External Rotation at 0 degrees Abduction 65 Internal Rotation 62 PT-OP-L Special Tests Start: 06/18/21 07:58 Freq: Status: Active Protocol: Document 06/18/21 10:01 (Rec: 06/18/21 10:28 [email or web address]) Special Tests Shoulder Special Tests Drop Arm Rotator Cuff Test Results -ve Comments significant weakness noted Yergason's Biceps Test Results -ve painful arc Test Results +VE L Comments pain Speed's Biceps Test Results -ve Bibb Test Test Results +VE Comments no clicking, significant weakness noted Samayoa Jay Impingement Test Results -ve Empty Can Test Results +VE L Comments significant weakness noted PT-OP-M Strength Start: 06/18/21 07:58 Freq: Status: Active Protocol: Document 09/24/21 13:46 HH (Rec: 09/24/21 14:54 HH [id number]) Shoulder Strength Shoulder Manual Muscle Testing Right Flexion 4+ Good+ Extension 4+ Good+ Abduction (C5) 4+ Good+ Adduction 4+ Good+ External Rotation 4+ Good+ Internal Rotation 4+ Good+ Left Flexion 3+ Fair+ Extension 4+ Good+ Abduction (C5) 3+ Fair+ Adduction 4+ Good+ External Rotation 3+ Fair+ Internal Rotation 4 Good Comments pain with resisted ER PT-OP-Q Treatments Start: 06/18/21 07:58 Freq: Status: Active Protocol: Document 10/08/21 08:19 SP (Rec: 10/08/21 09:06 SP [id number]) Therapeutic Exercises Supine Exercises abd w/ elbow bent Supine Exercise Name HEP Equipment Used AROM Reps/Minutes x5 Comments wand at elbow to assist as needed for AAROM supine ER Supine Exercise Name HEP Side left Resistance #1 DB Reps/Minutes 1x12 Comments cue for painfree range, still limited ER Sidelying Exercises shoulder abd Sidelying Exercise Name HEP Equipment Used 1lb DB Reps/Minutes 1x15 hor abd Sidelying Exercise Name incorporated open book motion (HEP) Side left Resistance AROM Equipment Used 1lb DB Reps/Minutes 1x15 Comments cued head with arm Standing Exercises 4 ways isometrics Standing Exercise Name to easy shoulder rows Standing Exercise Name HEP Side bilateral Equipment Used level 1 band Reps/Minutes 10 x2 Comments for HEP wall slide Standing Exercise Name small ROM: bottom 2 inches ( HEP) Reps/Minutes 1x8 Comments cue for posture, scapula down and back PT-OP-R Modalities Start: 06/18/21 07:58 Freq: Status: Active Protocol: Document 10/03/21 09:04 JG (Rec: 10/03/21 09:26 JG [id number]) Hot Pack/Cold Pack Treatment Heat Location L shld Patient Position Sidelying Treatment Duration (minutes) 10 Patient Tolerance Good PT-OP-T Assessment and Plan Start: 06/18/21 07:58 Freq: Status: Active Protocol: Document 10/08/21 08:19 SP (Rec: 10/08/21 09:06 SP [id number]) Physical Therapy Assessment Goals compensation Impairment pt compensates through shoulder elevation and trunk lateral flexion with OH Short Term Goal (STG) 09/24 goal met pt has minimal L shoulder hike while performing active shoulder flexion and abduction . Tape Making Machine Operator Goal (LTG) pt will show improved scapular and shoulder strength to reach overhead with minimal compensation of shoulder elevation and trunk lateral flexion to R LTG Duration 8 weeks strength Impairment significant weakness for flexion and abduction Short Term Goal (STG) 09/24 partially met pt is able to hold a cup without water with an extended arm pt will show 1 MMT improvements on L shoulder ( flexion and abduction) so she can hold a cup of water with L arm, STG Duration 4 weeks Custodial Goal (LTG) pt will increase in overall shoulder strength so she can participate house chorese such as dish washing, sweeping and etc LTG Duration 8 weeks quickdash Impairment pt scores 40.9 on quick dash Short Term Goal (STG) 09/24 goal met pt scores 25 on quickdash pt will regain mobility and strength by scoring <30 on quickdash STG Duration 4 weeks Custodial Goal (LTG) pt will regain mobility and strength by scoring <20 on quickdash LTG Duration 8 weeks Assessment Summary Assessment Extra time spent condensing HEP hand outs and what to focus on at home. Told her to bring HOs with her to appts. Pt noted good effort muscle tiring and able to use 1# DB today, no adverse affects. Next tx progress sitting strengthening. Physical Therapy Plan Frequency and Duration Frequency of Treatment Every Other Week Duration of Treatment 12 weeks Plan of Care Start Date 09/24/21 Plan of Care End Date 12/23/21 Therapeutic Interventions Therapeutic Interventions Home Exercise Program,Joint Mobilizations,Manual Therapy, Neuromuscular Re-education, Patient/Caregiver Education, Self-Care/Home Management,Soft Tissue Mobilization,Taping, Therapeutic Activities, Therapeutic Exercises Modalities Cold Pack/Ice Massage,Electric Stimulation,Hot Packs, Infrared Therapy,Ultrasound Next Visit Focus/Plan Next Note Type Treatment Note Next Visit Plan Review sitting and standing posture. Continue progressing seated strengthening and ROM exercises. Continue prone I and Y.
--- NOTE | 2021-10-11 12:48 | PT.OTN ---
Current Diagnoses Other specific arthropathies, not elsewhere classified, right shoulder (10/11/21) Strain of other muscles, fascia and tendons at shoulder and upper arm level, left arm, initial encounter (10/11/21) Physical Therapy Treatment Note PT-OP-A Visit Information Start: 06/18/21 07:58 Freq: Status: Active Protocol: Document 10/11/21 09:06 ELVA (Rec: 10/11/21 09:55 JG [id number]) Out-Patient Physical Therapy Visit Information Visit Information Visit Type Treatment Note Visit Note KX modifier SPT Sue was directly supoervised by FERMIN Webb Visit Start Time 09:04 Visit Stop Time 09:44 Total Visit Minutes 40 Visit Number 13 Number of STORE ASSOCIATE Visits 0 PT-OP-B Current Condition Start: 06/18/21 07:58 Freq: Status: Active Protocol: Document 06/18/21 10:01 HH (Rec: 06/18/21 10:28 [email or web address]) Current Condition History of Current Condition Onset Date 04/04/21 Current Complaints L shoulder pain, difficulty lifting her arm History of Current Condition Serenity is a 75yo female here for her L shoulder pain and difficulty lifting her arm up after her recent fall on out of [employer] parking lot. Pt fell on her L side and L side of the face. She has been experiencing pain at superior lateral aspect of the L shoulder. Her major limitation is shoulder flexion and abduction and she is unable to hold any weighted object. She states she has been getting better and able to regain most AROM but with pain. She has no pain at rest and also denies any night pain, radiating pain, tingling and numbness. She has been using OH brianna and bicep curls and AROM exercise at home. Prior Treatments and Tests X-ray at L shoulder = negative pt had a course of PT here at [facility] for her R hip and gait. 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) PT-OP-C Subjective Start: 06/18/21 07:58 Freq: Status: Active Protocol: Document 10/11/21 09:06 ELVA (Rec: 10/11/21 09:55 [email or web address] [id number]) OP-PT Subjective Patient Comments Patient Comments Pt reports upper ergo machine harder than normal, slept in an extra 1.5 hours this morning. Patient Reported Progress Improving PT-OP-E Functional Tests Start: 06/18/21 07:58 Freq: Status: Active Protocol: Document 06/18/21 10:01 HH (Rec: 06/18/21 10:28 [email or web address]) Functional Tests Apley's Scratch Test Action 2- Left T2 Action 2- Right T3 Action 3- Left T4 Action 3- Right T6 PT-OP-F Manual Assessment Start: 06/18/21 07:58 Freq: Status: Active Protocol: Document 06/18/21 10:01 HH (Rec: 06/18/21 10:28 [email or web address]) Manual Assessments Soft Tissue Assessment Soft Tissue Mobility Assessment tenderness with pressure at supraspinatus and middle deltoid PT-OP-K Range of Motion Start: 06/18/21 07:58 Freq: Status: Active Protocol: Document 09/24/21 13:46 HH (Rec: 09/24/21 14:54 [id number]) Shoulder Goniometric Range of Motion Shoulder Right Active Shoulder ROM WFL Yes Testing Position Standing Flexion 160 Extension 55 Abduction 145 External Rotation at 90 degrees 90 Abduction Internal Rotation 90 Left Active Shoulder ROM WFL No Testing Position Sitting Flexion 153 Extension 55 Abduction 170 External Rotation at 90 degrees 65 Abduction External Rotation at 0 degrees Abduction 65 Internal Rotation 62 PT-OP-L Special Tests Start: 06/18/21 07:58 Freq: Status: Active Protocol: Document 06/18/21 10:01 HH (Rec: 06/18/21 10:28 [email or web address]) Special Tests Shoulder Special Tests Drop Arm Rotator Cuff Test Results -ve Comments significant weakness noted Yergason's Biceps Test Results -ve painful arc Test Results +VE L Comments pain Speed's Biceps Test Results -ve [place] Test Test Results +VE Comments no clicking, significant weakness noted Samayoa Jay Impingement Test Results -ve Empty Can Test Results +VE L Comments significant weakness noted PT-OP-M Strength Start: 06/18/21 07:58 Freq: Status: Active Protocol: Document 09/24/21 13:46 HH (Rec: 09/24/21 14:54 [id number]) Shoulder Strength Shoulder Manual Muscle Testing Right Flexion 4+ Good+ Extension 4+ Good+ Abduction (C5) 4+ Good+ Adduction 4+ Good+ External Rotation 4+ Good+ Internal Rotation 4+ Good+ Left Flexion 3+ Fair+ Extension 4+ Good+ Abduction (C5) 3+ Fair+ Adduction 4+ Good+ External Rotation 3+ Fair+ Internal Rotation 4 Good Comments pain with resisted ER PT-OP-Q Treatments Start: 06/18/21 07:58 Freq: Status: Active Protocol: Document 10/11/21 09:06 ELVA (Rec: 10/11/21 09:55 J [id number]) Therapeutic Exercises Supine Exercises Abduction Side bilateral Resistance bodyweight Reps/Minutes 1x20 supine ER Side left Resistance cane, 1# Reps/Minutes 3x20 Comments cue painfree range, added 1# Sidelying Exercises shoulder ER Side left Resistance 1# Equipment Used towel under arm Reps/Minutes 1x15 shoulder abd Sidelying Exercise Name w/open book Side left Equipment Used bw, 1# Reps/Minutes 2x15 Comments cue for adding torso rotation, painfree range Standing Exercises wall slide Standing Exercise Name increased ROM, decreased as fatigued Reps/Minutes 1x12 Comments cue for posture, scapula down and back Manual Therapy Treatment Soft Tissue Mobilization pecs Mobilization Type Cross-Friction,Oscillations, Strumming,Sustained Pressure Intensity/Depth Moderate Body Position Sidelying supraspinatus tendon Body Location tendon and muscle Mobilization Type Cross-Friction,Myofascial Release,Oscillations,Sustained Pressure,Trigger Point Release Intensity/Depth Moderate Body Position Sidelying Joint Mobilizations GHJ Direction post glide Grade II Body Position Supine PT-OP-R Modalities Start: 06/18/21 07:58 Freq: Status: Active Protocol: Document 10/03/21 09:04 ELVA (Rec: 10/03/21 09:26 J [id number]) Hot Pack/Cold Pack Treatment Heat Location L shld Patient Position Sidelying Treatment Duration (minutes) 10 Patient Tolerance Good PT-OP-T Assessment and Plan Start: 06/18/21 07:58 Freq: Status: Active Protocol: Document 10/11/21 09:06 ELVA (Rec: 10/11/21 09:55 J [id number]) Physical Therapy Assessment Goals compensation Impairment pt compensates through shoulder elevation and trunk lateral flexion with OH Short Term Goal (STG) 09/24 goal met pt has minimal L shoulder hike while performing active shoulder flexion and abduction . Alf Goal (LTG) pt will show improved scapular and shoulder strength to reach overhead with minimal compensation of shoulder elevation and trunk lateral flexion to R LTG Duration 8 weeks strength Impairment significant weakness for flexion and abduction Short Term Goal (STG) 09/24 partially met pt is able to hold a cup without water with an extended arm pt will show 1 MMT improvements on L shoulder ( flexion and abduction) so she can hold a cup of water with L arm, STG Duration 4 weeks Counter Intelligence Goal (LTG) pt will increase in overall shoulder strength so she can participate house chorese such as dish washing, sweeping and etc LTG Duration 8 weeks quickdash Impairment pt scores 40.9 on quick dash Short Term Goal (STG) 09/24 goal met pt scores 25 on quickdash pt will regain mobility and strength by scoring <30 on quickdash STG Duration 4 weeks Alf Goal (LTG) pt will regain mobility and strength by scoring <20 on quickdash LTG Duration 8 weeks Assessment Summary Assessment Pt demostrated improved ability in painfree ROM and endurance. Pt req less cueing for scapular retration during open book, ER, and wall slides . Manual therapy significantly reduced soft tissue knots and hypertonicity which allow pt to depress scapula more. Physical Therapy Plan Next Visit Focus/Plan Next Note Type Treatment Note Next Visit Plan progress supine, sidelying, standing exercises. continue prone exercises. manual therapy for anterior shld soft tissue
--- NOTE | 2021-10-15 16:56 | PT.OTN ---
Current Diagnoses Other specific arthropathies, not elsewhere classified, right shoulder (10/15/21) Strain of other muscles, fascia and tendons at shoulder and upper arm level, left arm, initial encounter (10/15/21) Physical Therapy Treatment Note PT-OP-A Visit Information Start: 06/18/21 07:58 Freq: Status: Active Protocol: Document 10/15/21 16:11 [facility] (Rec: 10/15/21 16:56 [facility] [id number]) Out-Patient Physical Therapy Visit Information Visit Information Visit Type Treatment Note Visit Note KX modifier Visit Start Time 16:03 Visit Stop Time 16:45 Total Visit Minutes 42 Visit Number 14 Number of SALES TECHNICIAN Visits 0 PT-OP-B Current Condition Start: 06/18/21 07:58 Freq: Status: Active Protocol: Document 06/18/21 10:01 (Rec: 06/18/21 10:28 [email or web address]) Current Condition History of Current Condition Onset Date 04/04/21 Current Complaints L shoulder pain, difficulty lifting her arm History of Current Condition Serenity is a 75yo female here for her L shoulder pain and difficulty lifting her arm up after her recent fall on out of [employer] parking lot. Pt fell on her L side and L side of the face. She has been experiencing pain at superior lateral aspect of the L shoulder. Her major limitation is shoulder flexion and abduction and she is unable to hold any weighted object. She states she has been getting better and able to regain most AROM but with pain. She has no pain at rest and also denies any night pain, radiating pain, tingling and numbness. She has been using OH brianna and bicep curls and AROM exercise at home. Prior Treatments and Tests X-ray at L shoulder = negative pt had a course of PT here at [facility] for her R hip and gait. 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 PT-OP-E Functional Tests Start: 06/18/21 07:58 Freq: Status: Active Protocol: Document 06/18/21 10:01 HH (Rec: 06/18/21 10:28 [email or web address]) Functional Tests Apley's Scratch Test Action 2- Left T2 Action 2- Right T3 Action 3- Left T4 Action 3- Right T6 PT-OP-F Manual Assessment Start: 06/18/21 07:58 Freq: Status: Active Protocol: Document 06/18/21 10:01 HH (Rec: 06/18/21 10:28 [email or web address]) Manual Assessments Soft Tissue Assessment Soft Tissue Mobility Assessment tenderness with pressure at supraspinatus and middle deltoid PT-OP-K Range of Motion Start: 06/18/21 07:58 Freq: Status: Active Protocol: Document 09/24/21 13:46 HH (Rec: 09/24/21 14:54 [id number]) Shoulder Goniometric Range of Motion Shoulder Right Active Shoulder ROM WFL Yes Testing Position Standing Flexion 160 Extension 55 Abduction 145 External Rotation at 90 degrees 90 Abduction Internal Rotation 90 Left Active Shoulder ROM WFL No Testing Position Sitting Flexion 153 Extension 55 Abduction 170 External Rotation at 90 degrees 65 Abduction External Rotation at 0 degrees Abduction 65 Internal Rotation 62 PT-OP-L Special Tests Start: 06/18/21 07:58 Freq: Status: Active Protocol: Document 06/18/21 10:01 HH (Rec: 06/18/21 10:28 [email or web address]) Special Tests Shoulder Special Tests Drop Arm Rotator Cuff Test Results -ve Comments significant weakness noted Yergason's Biceps Test Results -ve painful arc Test Results +VE L Comments pain Speed's Biceps Test Results -ve [place] Test Test Results +VE Comments no clicking, significant weakness noted Samayoa Jay Impingement Test Results -ve Empty Can Test Results +VE L Comments significant weakness noted PT-OP-M Strength Start: 06/18/21 07:58 Freq: Status: Active Protocol: Document 09/24/21 13:46 HH (Rec: 09/24/21 14:54 [id number]) Shoulder Strength Shoulder Manual Muscle Testing Right Flexion 4+ Good+ Extension 4+ Good+ Abduction (C5) 4+ Good+ Adduction 4+ Good+ External Rotation 4+ Good+ Internal Rotation 4+ Good+ Left Flexion 3+ Fair+ Extension 4+ Good+ Abduction (C5) 3+ Fair+ Adduction 4+ Good+ External Rotation 3+ Fair+ Internal Rotation 4 Good Comments pain with resisted ER PT-OP-Q Treatments Start: 06/18/21 07:58 Freq: Status: Active Protocol: Document 10/15/21 16:11 [facility] (Rec: 10/15/21 16:56 [facility] [id number]) Cardio Equipment Upper Body Ergometer (UBE) Duration (Minutes) 5 RPM 120 Seat Position 10 Height 4 Other 1/2 fwd/back Therapeutic Exercises Supine Exercises Abduction Side bilateral Resistance bodyweight Reps/Minutes 1x20 supine ER Supine Exercise Name 1. at side 2. 90/90 Side left Resistance 2# Reps/Minutes x12 ea Comments cued for painfree range Sidelying Exercises shoulder abd Side left Reps/Minutes 8 Comments thumb up hor abd Sidelying Exercise Name incorporated open book motion (HEP) Side left Resistance AROM Equipment Used 1lb DB Reps/Minutes 1x15 Comments cued head with arm Standing Exercises shoulder rows Standing Exercise Name HEP Side bilateral Equipment Used level 1 band Reps/Minutes 10 x2 Comments for HEP wall slide Standing Exercise Name increased ROM, decreased as fatigued Reps/Minutes 3x5 Comments cue for posture, scapula down and back Manual Therapy Treatment Soft Tissue Mobilization UT/LS Body Location L Mobilization Type Rolling,Strumming Intensity/Depth Moderate Body Position Sidelying ribcage Body Location paraspinals & rhoboids L Mobilization Type Myofascial Release Intensity/Depth Moderate Body Position Sidelying Joint Mobilizations ribcage Joint UPA T6 FM Grade II GHJ Direction post glide, inf & distraction glides FM Grade II Body Position Supine PT-OP-R Modalities Start: 06/18/21 07:58 Freq: Status: Active Protocol: Document 10/03/21 09:04 JG (Rec: 10/03/21 09:26 JG [id number]) Hot Pack/Cold Pack Treatment Heat Location L shld Patient Position Sidelying Treatment Duration (minutes) 10 Patient Tolerance Good PT-OP-T Assessment and Plan Start: 06/18/21 07:58 Freq: Status: Active Protocol: Document 10/15/21 16:11 [facility] (Rec: 10/15/21 16:56 [facility] [id number]) Physical Therapy Assessment Goals compensation Impairment pt compensates through shoulder elevation and trunk lateral flexion with OH Short Term Goal (STG) 09/24 goal met pt has minimal L shoulder hike while performing active shoulder flexion and abduction . Skilled Nursing Goal (LTG) pt will show improved scapular and shoulder strength to reach overhead with minimal compensation of shoulder elevation and trunk lateral flexion to R LTG Duration 8 weeks strength Impairment significant weakness for flexion and abduction Short Term Goal (STG) 09/24 partially met pt is able to hold a cup without water with an extended arm pt will show 1 MMT improvements on L shoulder ( flexion and abduction) so she can hold a cup of water with L arm, STG Duration 4 weeks Chainstitch Hemmer Goal (LTG) pt will increase in overall shoulder strength so she can participate house chorese such as dish washing, sweeping and etc LTG Duration 8 weeks quickdash Impairment pt scores 40.9 on quick dash Short Term Goal (STG) 09/24 goal met pt scores 25 on quickdash pt will regain mobility and strength by scoring <30 on quickdash STG Duration 4 weeks Chainstitch Hemmer Goal (LTG) pt will regain mobility and strength by scoring <20 on quickdash LTG Duration 8 weeks Assessment Summary Assessment Pt did well with exercises and was able to tolerate 2# w/ER but was not able to abd w/wt today. She still fatigues w/ exercise but improving w/ performance. Pt had less pain w/90/90 IR and more range before pain started w/passive flex and abd after manual treatmetn Physical Therapy Plan Frequency and Duration Frequency of Treatment Every Other Week Duration of Treatment 12 weeks Plan of Care Start Date 09/24/21 Plan of Care End Date 12/23/21 Next Visit Focus/Plan Next Note Type Treatment Note Next Visit Plan progress supine, sidelying, standing exercises. continue prone exercises. manual therapy for anterior shld soft tissue
--- NOTE | 2021-10-15 17:30 | PT.OPPOC ---
Physical, Occupational & Speech Therapy At [facility] Current Diagnoses Other specific arthropathies, not elsewhere classified, right shoulder (10/30/21) Strain of other muscles, fascia and tendons at shoulder and upper arm level, left arm, initial encounter (10/30/21) Visit Care Team Role Provider Type Joshua Chin MD Primary Care Provider Physician Specialty: Internal Medicine Address: [address] [place] [address], [address], [place], [address] Email: [email or web address] [email or web address] Mandujano MD Attending Provider Physician Referring Provider Specialty: Orthopedic Surgery Address: [address] [place] [address], [id number] Email: [email or web address] Plan Of Care PT-OP-T Assessment and Plan Start: 06/18/21 07:58 Freq: Status: Active Protocol: Document 10/30/21 13:19 [facility] (Rec: 10/15/21 16:56 [facility] [id number]) Physical Therapy Assessment Goals compensation Impairment pt compensates through shoulder elevation and trunk lateral flexion with OH Short Term Goal (STG) 09/24 goal met pt has minimal L shoulder hike while performing active shoulder flexion and abduction . [employer] Goal (LTG) pt will show improved scapular and shoulder strength to reach overhead with minimal compensation of shoulder elevation and trunk lateral flexion to R LTG Duration 8 weeks strength Impairment significant weakness for flexion and abduction Short Term Goal (STG) 09/24 partially met pt is able to hold a cup without water with an extended arm pt will show 1 MMT improvements on L shoulder ( flexion and abduction) so she can hold a cup of water with L arm, STG Duration 4 weeks [facility] Goal (LTG) pt will increase in overall shoulder strength so she can participate house chorese such as dish washing, sweeping and etc LTG Duration 8 weeks quickdash Impairment pt scores 40.9 on quick dash Short Term Goal (STG) 09/24 goal met pt scores 25 on quickdash pt will regain mobility and strength by scoring <30 on quickdash STG Duration 4 weeks [facility] Goal (LTG) pt will regain mobility and strength by scoring <20 on quickdash LTG Duration 8 weeks Assessment Summary Assessment Pt did well with exercises and was able to tolerate 2# w/ER but was not able to abd w/wt today. She still fatigues w/ exercise but improving w/ performance. Pt had less pain w/90/90 IR and more range before pain started w/passive flex and abd after manual treatmetn. She is progressing w/her performance of exercises and ROM w/manual and ther ex combo w/PT and would benefit from PT 1-2x/week to cont to progress her mobility. Physical Therapy Plan Frequency and Duration Frequency of Treatment 1-2x/week Duration of Treatment 2 months Plan of Care Start Date 10/15/21 Plan of Care End Date 12/16/21 Therapeutic Interventions Therapeutic Interventions Home Exercise Program,Joint Mobilizations,Manual Therapy, Neuromuscular Re-education, Patient/Caregiver Education, Self-Care/Home Management,Soft Tissue Mobilization,Taping, Therapeutic Activities, Therapeutic Exercises Modalities Cold Pack/Ice Massage,Electric Stimulation,Hot Packs, Infrared Therapy,Ultrasound Next Visit Focus/Plan Next Note Type Treatment Note Next Visit Plan progress supine, sidelying, standing exercises. continue prone exercises. manual therapy for anterior shld soft tissue Plan of Care Dates Plan of Care Start Date 10/15/21 Plan of Care End Date 12/16/21 Electronically Signed by: Tracey Cedeno, PT 10/30/21 1320 Please Sign and Return: I have reviewed this Plan of Care and certify that the skilled therapy services above are required to meet the patient?s needs. Physician Signature Date Printed Name and Credentials Clinical Instructor Signature Printed Name and Credentials
--- NOTE | 2021-10-18 13:44 | PT.OTN ---
Current Diagnoses Other specific arthropathies, not elsewhere classified, right shoulder (10/18/21) Strain of other muscles, fascia and tendons at shoulder and upper arm level, left arm, initial encounter (10/18/21) Physical Therapy Treatment Note PT-OP-A Visit Information Start: 06/18/21 07:58 Freq: Status: Active Protocol: Document 10/18/21 11:26 JG (Rec: 10/18/21 11:33 [id number]) Out-Patient Physical Therapy Visit Information Visit Information Visit Type Treatment Note Visit Note KX modifier SPT Sue was directly supervised by FERMIN Webb Visit Start Time 11:22 Visit Stop Time 12:01 Total Visit Minutes 39 Visit Number 15 Number of ARCHITECTURAL PRACTICE MANAGER Visits 0 PT-OP-B Current Condition Start: 06/18/21 07:58 Freq: Status: Active Protocol: Document 06/18/21 10:01 HH (Rec: 06/18/21 10:28 [email or web address]) Current Condition History of Current Condition Onset Date 04/04/21 Current Complaints L shoulder pain, difficulty lifting her arm History of Current Condition Serenity is a 75yo female here for her L shoulder pain and difficulty lifting her arm up after her recent fall on out of [employer] parking lot. Pt fell on her L side and L side of the face. She has been experiencing pain at superior lateral aspect of the L shoulder. Her major limitation is shoulder flexion and abduction and she is unable to hold any weighted object. She states she has been getting better and able to regain most AROM but with pain. She has no pain at rest and also denies any night pain, radiating pain, tingling and numbness. She has been using OH brianna and bicep curls and AROM exercise at home. Prior Treatments and Tests X-ray at L shoulder = negative pt had a course of PT here at [facility] for her R hip and gait. 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 PT-OP-E Functional Tests Start: 06/18/21 07:58 Freq: Status: Active Protocol: Document 06/18/21 10:01 HH (Rec: 06/18/21 10:28 [email or web address]) Functional Tests Apley's Scratch Test Action 2- Left T2 Action 2- Right T3 Action 3- Left T4 Action 3- Right T6 PT-OP-F Manual Assessment Start: 06/18/21 07:58 Freq: Status: Active Protocol: Document 06/18/21 10:01 HH (Rec: 06/18/21 10:28 [email or web address]) Manual Assessments Soft Tissue Assessment Soft Tissue Mobility Assessment tenderness with pressure at supraspinatus and middle deltoid PT-OP-K Range of Motion Start: 06/18/21 07:58 Freq: Status: Active Protocol: Document 09/24/21 13:46 HH (Rec: 09/24/21 14:54 [id number]) Shoulder Goniometric Range of Motion Shoulder Right Active Shoulder ROM WFL Yes Testing Position Standing Flexion 160 Extension 55 Abduction 145 External Rotation at 90 degrees 90 Abduction Internal Rotation 90 Left Active Shoulder ROM WFL No Testing Position Sitting Flexion 153 Extension 55 Abduction 170 External Rotation at 90 degrees 65 Abduction External Rotation at 0 degrees Abduction 65 Internal Rotation 62 PT-OP-L Special Tests Start: 06/18/21 07:58 Freq: Status: Active Protocol: Document 06/18/21 10:01 HH (Rec: 06/18/21 10:28 [email or web address]) Special Tests Shoulder Special Tests Drop Arm Rotator Cuff Test Results -ve Comments significant weakness noted Demarcorselam's Biceps Test Results -ve painful arc Test Results +VE L Comments haven Speed's Biceps Test Results -ve [place] Test Test Results +VE Comments no clicking, significant weakness noted Samay[place] Jay Impingement Test Results -ve Empty Can Test Results +VE L Comments significant weakness noted PT-OP-M Strength Start: 06/18/21 07:58 Freq: Status: Active Protocol: Document 09/24/21 13:46 HH (Rec: 09/24/21 14:54 [id number]) Shoulder Strength Shoulder Manual Muscle Testing Right Flexion 4+ Good+ Extension 4+ Good+ Abduction (C5) 4+ Good+ Adduction 4+ Good+ External Rotation 4+ Good+ Internal Rotation 4+ Good+ Left Flexion 3+ Fair+ Extension 4+ Good+ Abduction (C5) 3+ Fair+ Adduction 4+ Good+ External Rotation 3+ Fair+ Internal Rotation 4 Good Comments pain with resisted ER PT-OP-Q Treatments Start: 06/18/21 07:58 Freq: Status: Active Protocol: Document 10/18/21 11:26 ELVA (Rec: 10/18/21 11:33 [email or web address] [id number]) Cardio Equipment Upper Body Ergometer (UBE) Duration (Minutes) 5 RPM 120 Seat Position 10 Height 4 Other alt every 30 seconds Therapeutic Exercises Supine Exercises Abduction Side left Resistance w/riley Reps/Minutes 1x20 shoulder punch Side bilateral Resistance w/riley Reps/Minutes 1x8 Comments painful today, discontinued supine ER Supine Exercise Name 90/90 Side left Resistance 2# Reps/Minutes 1x12 Comments cued for painfree range Sidelying Exercises shoulder ER Side left shoulder abd Side left Equipment Used 1# Comments tried w/1# but unable to move through ROM, decreased ROM w/o wt hor abd Side left Comments cue for scap control Standing Exercises shoulder rows Side bilateral Equipment Used L2 Reps/Minutes 1x15 Comments cue for scap retraction wall slide Standing Exercise Name palms on wall Reps/Minutes 1x10 Comments cue for posture, scapula down and back Manual Therapy Treatment Soft Tissue Mobilization UT/LS Body Location L Mobilization Type Rolling,Strumming,Sustained Pressure Intensity/Depth Moderate Body Position Sidelying Comments w/passive scap movement pecs Mobilization Type Cross-Friction,Oscillations, Strumming,Sustained Pressure Intensity/Depth Moderate Body Position Sidelying supraspinatus tendon Body Location tendon and muscle Mobilization Type Cross-Friction,Myofascial Release,Oscillations,Sustained Pressure,Trigger Point Release Intensity/Depth Moderate Body Position Sidelying Comments w/ER passive movement PT-OP-R Modalities Start: 06/18/21 07:58 Freq: Status: Active Protocol: Document 10/03/21 09:04 ELVA (Rec: 10/03/21 09:26 ELVA [id number]) Hot Pack/Cold Pack Treatment Heat Location L shld Patient Position Sidelying Treatment Duration (minutes) 10 Patient Tolerance Good PT-OP-T Assessment and Plan Start: 06/18/21 07:58 Freq: Status: Active Protocol: Document 10/18/21 11:26 ELVA (Rec: 10/18/21 11:33 [id number]) Physical Therapy Assessment Goals compensation Impairment pt compensates through shoulder elevation and trunk lateral flexion with OH Short Term Goal (STG) 09/24 goal met pt has minimal L shoulder hike while performing active shoulder flexion and abduction . Retirement Goal (LTG) pt will show improved scapular and shoulder strength to reach overhead with minimal compensation of shoulder elevation and trunk lateral flexion to R LTG Duration 8 weeks strength Impairment significant weakness for flexion and abduction Short Term Goal (STG) 09/24 partially met pt is able to hold a cup without water with an extended arm pt will show 1 MMT improvements on L shoulder ( flexion and abduction) so she can hold a cup of water with L arm, STG Duration 4 weeks Corporate Investigator Goal (LTG) pt will increase in overall shoulder strength so she can participate house chorese such as dish washing, sweeping and etc LTG Duration 8 weeks quickdash Impairment pt scores 40.9 on quick dash Short Term Goal (STG) 09/24 goal met pt scores 25 on quickdash pt will regain mobility and strength by scoring <30 on quickdash STG Duration 4 weeks Corporate Investigator Goal (LTG) pt will regain mobility and strength by scoring <20 on quickdash LTG Duration 8 weeks Assessment Summary Assessment Pt continues to complete HEP indep, but req cueing and feedback during exercises at clinic. Pt reports that she feels the PT sessions and patient education are vital to her rehab potential. Pt continues to have improved scapular depression and muscular tone with manual therapy. Physical Therapy Plan Frequency and Duration Frequency of Treatment Every Other Week Duration of Treatment 12 weeks Plan of Care Start Date 09/24/21 Plan of Care End Date 12/23/21 Therapeutic Interventions Therapeutic Interventions Home Exercise Program,Joint Mobilizations,Manual Therapy, Neuromuscular Re-education, Patient/Caregiver Education, Self-Care/Home Management,Soft Tissue Mobilization,Taping, Therapeutic Activities, Therapeutic Exercises Modalities Cold Pack/Ice Massage,Electric Stimulation,Hot Packs, Infrared Therapy,Ultrasound Next Visit Focus/Plan Next Note Type Treatment Note Next Visit Plan progress standing shld strengthening and stabilizing exercises. Manual therapy to decrease tone in supraspinatus , pecs, UT muscles and increase scapular depression on L shld.
--- NOTE | 2021-10-24 11:18 | PT.OTN ---
Current Diagnoses Other specific arthropathies, not elsewhere classified, right shoulder (10/24/21) Strain of other muscles, fascia and tendons at shoulder and upper arm level, left arm, initial encounter (10/24/21) Physical Therapy Treatment Note PT-OP-A Visit Information Start: 06/18/21 07:58 Freq: Status: Active Protocol: Document 10/24/21 10:29 [facility] (Rec: 10/24/21 11:18 [facility] [id number]) Out-Patient Physical Therapy Visit Information Visit Information Visit Type Treatment Note Visit Note KX modifier Visit Start Time 10:32 Visit Stop Time 11:15 Total Visit Minutes 43 Visit Number 16 Number of ELECTROTYPER HELPER Visits 0 PT-OP-B Current Condition Start: 06/18/21 07:58 Freq: Status: Active Protocol: Document 06/18/21 10:01 (Rec: 06/18/21 10:28 [email or web address]) Current Condition History of Current Condition Onset Date 04/04/21 Current Complaints L shoulder pain, difficulty lifting her arm History of Current Condition Serenity is a 75yo female here for her L shoulder pain and difficulty lifting her arm up after her recent fall on out of [employer] parking lot. Pt fell on her L side and L side of the face. She has been experiencing pain at superior lateral aspect of the L shoulder. Her major limitation is shoulder flexion and abduction and she is unable to hold any weighted object. She states she has been getting better and able to regain most AROM but with pain. She has no pain at rest and also denies any night pain, radiating pain, tingling and numbness. She has been using OH brianna and bicep curls and AROM exercise at home. Prior Treatments and Tests X-ray at L shoulder = negative pt had a course of PT here at [facility] for her R hip and gait. 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 Reaching fwd and/or to the side w/something in her hand is still difficult PT-OP-E Functional Tests Start: 06/18/21 07:58 Freq: Status: Active Protocol: Document 06/18/21 10:01 (Rec: 06/18/21 10:28 [email or web address]) Functional Tests Apley's Scratch Test Action 2- Left T2 Action 2- Right T3 Action 3- Left T4 Action 3- Right T6 PT-OP-F Manual Assessment Start: 06/18/21 07:58 Freq: Status: Active Protocol: Document 06/18/21 10:01 HH (Rec: 06/18/21 10:28 [email or web address]) Manual Assessments Soft Tissue Assessment Soft Tissue Mobility Assessment tenderness with pressure at supraspinatus and middle deltoid PT-OP-K Range of Motion Start: 06/18/21 07:58 Freq: Status: Active Protocol: Document 09/24/21 13:46 HH (Rec: 09/24/21 14:54 [id number]) Shoulder Goniometric Range of Motion Shoulder Right Active Shoulder ROM WFL Yes Testing Position Standing Flexion 160 Extension 55 Abduction 145 External Rotation at 90 degrees 90 Abduction Internal Rotation 90 Left Active Shoulder ROM WFL No Testing Position Sitting Flexion 153 Extension 55 Abduction 170 External Rotation at 90 degrees 65 Abduction External Rotation at 0 degrees Abduction 65 Internal Rotation 62 PT-OP-L Special Tests Start: 06/18/21 07:58 Freq: Status: Active Protocol: Document 06/18/21 10:01 HH (Rec: 06/18/21 10:28 [email or web address]) Special Tests Shoulder Special Tests Drop Arm Rotator Cuff Test Results -ve Comments significant weakness noted Demarcorselam's Biceps Test Results -ve painful arc Test Results +VE L Comments pain Speed's Biceps Test Results -ve [place] Test Test Results +VE Comments no clicking, significant weakness noted Samayoa Jay Impingement Test Results -ve Empty Can Test Results +VE L Comments significant weakness noted PT-OP-M Strength Start: 06/18/21 07:58 Freq: Status: Active Protocol: Document 09/24/21 13:46 HH (Rec: 09/24/21 14:54 [id number]) Shoulder Strength Shoulder Manual Muscle Testing Right Flexion 4+ Good+ Extension 4+ Good+ Abduction (C5) 4+ Good+ Adduction 4+ Good+ External Rotation 4+ Good+ Internal Rotation 4+ Good+ Left Flexion 3+ Fair+ Extension 4+ Good+ Abduction (C5) 3+ Fair+ Adduction 4+ Good+ External Rotation 3+ Fair+ Internal Rotation 4 Good Comments pain with resisted ER PT-OP-Q Treatments Start: 06/18/21 07:58 Freq: Status: Active Protocol: Document 10/24/21 10:29 [facility] (Rec: 10/24/21 11:18 [facility] [id number]) Cardio Equipment Upper Body Ergometer (UBE) Duration (Minutes) 5 RPM 120 Seat Position 10 Height 4 Other alt every 30 seconds Therapeutic Exercises Supine Exercises Abduction Side bilateral Resistance bodyweight Reps/Minutes 6 Sidelying Exercises shoulder ER Side left Reps/Minutes 2x10 shoulder abd Side left Reps/Minutes 15 hor abd Sidelying Exercise Name incorporated open book motion (HEP) Side left Equipment Used 1lb DB Reps/Minutes 1x15 Comments cue for scap control Standing Exercises cross body Standing Exercise Name D2 flex pattern(not pure as pt unable to do full flex/abd); D1 flex Side left Reps/Minutes 1.5 2. 10 IR Side left Equipment Used L1 Reps/Minutes 15 ext Side bilateral Equipment Used L3 Reps/Minutes 8 shoulder rows Side bilateral Equipment Used L3 Reps/Minutes 1x15 Comments cue for scap retraction wall slide Standing Exercise Name forearm on wall Reps/Minutes 1x10 Comments cue for posture, scapula down and back Manual Therapy Treatment Soft Tissue Mobilization UT/LS Body Location L Mobilization Type Rolling,Strumming,Sustained Pressure Intensity/Depth Moderate Body Position Sidelying Comments w/passive scap movement pecs Mobilization Type Cross-Friction,Oscillations, Strumming,Sustained Pressure Intensity/Depth Moderate Body Position Sidelying Comments w/ER/IR supraspinatus tendon Body Location tendon and muscle Mobilization Type Cross-Friction,Myofascial Release,Oscillations,Sustained Pressure,Trigger Point Release Intensity/Depth Moderate Body Position Sidelying Comments w/ER passive movement Joint Mobilizations AC Joint gapping L Direction FM Grade II GHJ Direction post glide, inf & distraction glides FM Grade II Body Position Supine Comments w/flex, abd, IR PT-OP-R Modalities Start: 06/18/21 07:58 Freq: Status: Active Protocol: Document 10/03/21 09:04 ELVA (Rec: 10/03/21 09:26 Vangie [id number]) Hot Pack/Cold Pack Treatment Heat Location L shld Patient Position Sidelying Treatment Duration (minutes) 10 Patient Tolerance Good PT-OP-T Assessment and Plan Start: 06/18/21 07:58 Freq: Status: Active Protocol: Document 10/24/21 10:29 [facility] (Rec: 10/24/21 11:18 [facility] [id number]) Physical Therapy Assessment Goals compensation Impairment pt compensates through shoulder elevation and trunk lateral flexion with OH Short Term Goal (STG) 09/24 goal met pt has minimal L shoulder hike while performing active shoulder flexion and abduction . Fdc Goal (LTG) pt will show improved scapular and shoulder strength to reach overhead with minimal compensation of shoulder elevation and trunk lateral flexion to R LTG Duration 8 weeks strength Impairment significant weakness for flexion and abduction Short Term Goal (STG) 09/24 partially met pt is able to hold a cup without water with an extended arm pt will show 1 MMT improvements on L shoulder ( flexion and abduction) so she can hold a cup of water with L arm, STG Duration 4 weeks Fdc Goal (LTG) pt will increase in overall shoulder strength so she can participate house chorese such as dish washing, sweeping and etc LTG Duration 8 weeks quickdash Impairment pt scores 40.9 on quick dash Short Term Goal (STG) 09/24 goal met pt scores 25 on quickdash pt will regain mobility and strength by scoring <30 on quickdash STG Duration 4 weeks Fdc Goal (LTG) pt will regain mobility and strength by scoring <20 on quickdash LTG Duration 8 weeks Assessment Summary Assessment Pt was able to try some of the standing tband exercises on one of her papers from prior therapy that she was intersted in. The more difficult cross body exercises, pt had less ability to perform repetitions Physical Therapy Plan Frequency and Duration Frequency of Treatment Every Other Week Duration of Treatment 12 weeks Plan of Care Start Date 09/24/21 Plan of Care End Date 12/23/21 Next Visit Focus/Plan Next Note Type Treatment Note Next Visit Plan progress standing shld strengthening and stabilizing exercises. Manual therapy to decrease tone in supraspinatus , pecs, UT muscles and increase scapular depression on L shld.
--- NOTE | 2021-10-30 13:18 | PT.OTN ---
Current Diagnoses Other specific arthropathies, not elsewhere classified, right shoulder (10/30/21) Strain of other muscles, fascia and tendons at shoulder and upper arm level, left arm, initial encounter (10/30/21) Physical Therapy Treatment Note PT-OP-A Visit Information Start: 06/18/21 07:58 Freq: Status: Active Protocol: Document 10/30/21 11:16 [facility] (Rec: 10/30/21 11:22 [facility] [id number]) Out-Patient Physical Therapy Visit Information Visit Information Visit Type Treatment Note Visit Note 06/05 Visit Start Time 10:35 Visit Stop Time 11:25 Total Visit Minutes 50 Visit Number 17 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 Pt fell on her L side and L side of the face. She has been experiencing pain at superior lateral aspect of the L shoulder. Her major limitation is shoulder flexion and abduction and she is unable to hold any weighted object. She states she has been getting better and able to regain most AROM but with pain. She has no pain at rest and also denies any night pain, radiating pain, tingling and numbness. She has been using OH brianna and bicep curls and AROM exercise at home. Prior Treatments and Tests X-ray at L shoulder = negative pt had a course of PT here at [facility] for her R hip and gait. 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) PT-OP-C Subjective Start: 06/18/21 07:58 Freq: Status: Active Protocol: Document 10/30/21 11:16 [facility] (Rec: 10/30/21 11:22 [facility] [id number]) OP-PT Subjective Patient Comments Patient Comments Pt reports since about Friday shoulder has been hurting her a lot more. notes she doens't know why. She has not done her exercises the past 2 days d/t pain in shoulder and avoiding inc pain PT-OP-E Functional Tests Start: 06/18/21 07:58 Freq: Status: Active Protocol: Document 06/18/21 10:01 (Rec: 06/18/21 10:28 [email or web address]) Functional Tests Apley's Scratch Test Action 2- Left T2 Action 2- Right T3 Action 3- Left T4 Action 3- Right T6 PT-OP-F Manual Assessment Start: 06/18/21 07:58 Freq: Status: Active Protocol: Document 06/18/21 10:01 HH (Rec: 06/18/21 10:28 [email or web address]) Manual Assessments Soft Tissue Assessment Soft Tissue Mobility Assessment tenderness with pressure at supraspinatus and middle deltoid PT-OP-K Range of Motion Start: 06/18/21 07:58 Freq: Status: Active Protocol: Document 09/24/21 13:46 HH (Rec: 09/24/21 14:54 [id number]) Shoulder Goniometric Range of Motion Shoulder Right Active Shoulder ROM WFL Yes Testing Position Standing Flexion 160 Extension 55 Abduction 145 External Rotation at 90 degrees 90 Abduction Internal Rotation 90 Left Active Shoulder ROM WFL No Testing Position Sitting Flexion 153 Extension 55 Abduction 170 External Rotation at 90 degrees 65 Abduction External Rotation at 0 degrees Abduction 65 Internal Rotation 62 PT-OP-L Special Tests Start: 06/18/21 07:58 Freq: Status: Active Protocol: Document 06/18/21 10:01 HH (Rec: 06/18/21 10:28 [email or web address]) Special Tests Shoulder Special Tests Drop Arm Rotator Cuff Test Results -ve Comments significant weakness noted Demarcorgason's Biceps Test Results -ve painful arc Test Results +VE L Comments haven Speed's Biceps Test Results -ve [place] Test Test Results +VE Comments no clicking, significant weakness noted Samayoa Jay Impingement Test Results -ve Empty Can Test Results +VE L Comments significant weakness noted PT-OP-M Strength Start: 06/18/21 07:58 Freq: Status: Active Protocol: Document 09/24/21 13:46 HH (Rec: 09/24/21 14:54 [id number]) Shoulder Strength Shoulder Manual Muscle Testing Right Flexion 4+ Good+ Extension 4+ Good+ Abduction (C5) 4+ Good+ Adduction 4+ Good+ External Rotation 4+ Good+ Internal Rotation 4+ Good+ Left Flexion 3+ Fair+ Extension 4+ Good+ Abduction (C5) 3+ Fair+ Adduction 4+ Good+ External Rotation 3+ Fair+ Internal Rotation 4 Good Comments pain with resisted ER PT-OP-Q Treatments Start: 06/18/21 07:58 Freq: Status: Active Protocol: Document 10/30/21 11:16 [facility] (Rec: 10/30/21 11:22 [facility] [id number]) Therapeutic Exercises Sidelying Exercises hor abd Sidelying Exercise Name incorporated open book motion (HEP) Side left Reps/Minutes 10 Comments cue for scap control Standing Exercises shoulder rows Side bilateral Equipment Used L1 Reps/Minutes 1x15 Comments cue for scap retraction wall slide Standing Exercise Name forearm on wall-comfortable range Reps/Minutes 1x10 Comments cue for posture, scapula down and back Manual Therapy Treatment Soft Tissue Mobilization UT/LS Body Location L Mobilization Type Rolling,Strumming,Sustained Pressure Intensity/Depth Moderate Body Position Sidelying Comments w/passive scap movement pecs Mobilization Type Cross-Friction,Oscillations, Strumming,Sustained Pressure Intensity/Depth Moderate Body Position Sidelying Comments w/ER/IR supraspinatus tendon Body Location tendon and muscle Mobilization Type Cross-Friction,Myofascial Release,Oscillations,Sustained Pressure,Trigger Point Release Intensity/Depth Moderate Body Position Sidelying Comments w/ER passive movement ribcage Body Location paraspinals & rhoboids & lats & teres L Mobilization Type Rolling,Strumming Intensity/Depth Moderate Body Position Sidelying Joint Mobilizations AC Joint gapping L Direction FM Grade II ribcage Joint UPA L T4 & transverse glide T4 R Grade II Comments inf mob rib 1 GHJ Direction distraction Grade I Body Position Supine PT-OP-R Modalities Start: 06/18/21 07:58 Freq: Status: Active Protocol: Document 10/03/21 09:04 ELVA (Rec: 10/03/21 09:26 [facility] [id number]) Hot Pack/Cold Pack Treatment Heat Location L shld Patient Position Sidelying Treatment Duration (minutes) 10 Patient Tolerance Good PT-OP-T Assessment and Plan Start: 06/18/21 07:58 Freq: Status: Active Protocol: Document 10/30/21 11:16 [facility] (Rec: 10/30/21 11:22 [facility] [id number]) Physical Therapy Assessment Goals compensation Impairment pt compensates through shoulder elevation and trunk lateral flexion with OH Short Term Goal (STG) 09/24 goal met pt has minimal L shoulder hike while performing active shoulder flexion and abduction . Prison Goal (LTG) pt will show improved scapular and shoulder strength to reach overhead with minimal compensation of shoulder elevation and trunk lateral flexion to R LTG Duration 8 weeks strength Impairment significant weakness for flexion and abduction Short Term Goal (STG) 09/24 partially met pt is able to hold a cup without water with an extended arm pt will show 1 MMT improvements on L shoulder ( flexion and abduction) so she can hold a cup of water with L arm, STG Duration 4 weeks [employer] Goal (LTG) pt will increase in overall shoulder strength so she can participate house chorese such as dish washing, sweeping and etc LTG Duration 8 weeks quickdash Impairment pt scores 40.9 on quick dash Short Term Goal (STG) 09/24 goal met pt scores 25 on quickdash pt will regain mobility and strength by scoring <30 on quickdash STG Duration 4 weeks [employer] Goal (LTG) pt will regain mobility and strength by scoring <20 on quickdash LTG Duration 8 weeks Assessment Summary Assessment Pt had improved PROM after manual treatment. She had signficiant tightnes of shoulder mm today w/limited PROM w/o pain. Encouraged to work on exercsies in pain free range and painfree reps only. Physical Therapy Plan Frequency and Duration Frequency of Treatment 2x/Week Duration of Treatment 12 weeks Plan of Care Start Date 09/24/21 Plan of Care End Date 12/23/21 Next Visit Focus/Plan Next Note Type Treatment Note Next Visit Plan progress standing shld strengthening and stabilizing exercises. Manual therapy to decrease tone in supraspinatus , pecs, UT muscles and increase scapular depression on L shld.
--- NOTE | 2021-11-05 13:45 | PT.OTN ---
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 Pt fell on her L side and L side of the face. She has been experiencing pain at superior lateral aspect of the L shoulder. Her major limitation is shoulder flexion and abduction and she is unable to hold any weighted object. She states she has been getting better and able to regain most AROM but with pain. She has no pain at rest and also denies any night pain, radiating pain, tingling and numbness. She has been using OH brianna and bicep curls and AROM exercise at home. Prior Treatments and Tests X-ray at L shoulder = negative pt had a course of PT here at [facility] for her R hip and gait. 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 Painfree today, wants to progress in physician HEP using TB if can. Patient Reported Progress Improving PT-OP-E Functional Tests Start: 06/18/21 07:58 Freq: Status: Active Protocol: Document 06/18/21 10:01 HH (Rec: 06/18/21 10:28 [email or web address]) Functional Tests Apley's Scratch Test Action 2- Left T2 Action 2- Right T3 Action 3- Left T4 Action 3- Right T6 PT-OP-F Manual Assessment Start: 06/18/21 07:58 Freq: Status: Active Protocol: Document 06/18/21 10:01 HH (Rec: 06/18/21 10:28 [email or web address]) Manual Assessments Soft Tissue Assessment Soft Tissue Mobility Assessment tenderness with pressure at supraspinatus and middle deltoid PT-OP-K Range of Motion Start: 06/18/21 07:58 Freq: Status: Active Protocol: Document 09/24/21 13:46 HH (Rec: 09/24/21 14:54 [id number]) Shoulder Goniometric Range of Motion Shoulder Right Active Shoulder ROM WFL Yes Testing Position Standing Flexion 160 Extension 55 Abduction 145 External Rotation at 90 degrees 90 Abduction Internal Rotation 90 Left Active Shoulder ROM WFL No Testing Position Sitting Flexion 153 Extension 55 Abduction 170 External Rotation at 90 degrees 65 Abduction External Rotation at 0 degrees Abduction 65 Internal Rotation 62 PT-OP-L Special Tests Start: 06/18/21 07:58 Freq: Status: Active Protocol: Document 06/18/21 10:01 HH (Rec: 06/18/21 10:28 [email or web address]) Special Tests Shoulder Special Tests Drop Arm Rotator Cuff Test Results -ve Comments significant weakness noted Yergason's Biceps Test Results -ve painful arc Test Results +VE L Comments pain Speed's Biceps Test Results -ve [place] Test Test Results +VE Comments no clicking, significant weakness noted Samayoa Jay Impingement Test Results -ve Empty Can Test Results +VE L Comments significant weakness noted PT-OP-M Strength Start: 06/18/21 07:58 Freq: Status: Active Protocol: Document 09/24/21 13:46 HH (Rec: 09/24/21 14:54 [id number]) Shoulder Strength Shoulder Manual Muscle Testing Right Flexion 4+ Good+ Extension 4+ Good+ Abduction (C5) 4+ Good+ Adduction 4+ Good+ External Rotation 4+ Good+ Internal Rotation 4+ Good+ Left Flexion 3+ Fair+ Extension 4+ Good+ Abduction (C5) 3+ Fair+ Adduction 4+ Good+ External Rotation 3+ Fair+ Internal Rotation 4 Good Comments pain with resisted ER PT-OP-Q Treatments Start: 06/18/21 07:58 Freq: Status: Active Protocol: Document 11/05/21 13:00 SP (Rec: 11/05/21 13:58 SP [id number]) Therapeutic Exercises Supine Exercises FF Supine Exercise Name approx 162 deg Side left Resistance AROM Reps/Minutes x10 Comments initial lift support off table then ableto complete arc OH shoulder punch Supine Exercise Name added to HEP Side bilateral Resistance AROM Reps/Minutes 1x2 reps (after many stand/ side) Comments tiring but able to do without RUE assist supine ER Supine Exercise Name 90/90 Side left Resistance TB 2# Reps/Minutes 1x12 Comments cued for painfree range Sidelying Exercises shoulder ER Side left Resistance AROM Reps/Minutes 2x10 shoulder abd Side left Reps/Minutes 2x15 Comments cued stacked shld's hor abd Sidelying Exercise Name incorporated open book motion (HEP) Side left Reps/Minutes 20 Comments good scap control Sitting Exercises brianna Sitting Exercise Name flexion, abd- HEP Side bilateral Resistance ROM warm up Equipment Used mirror Reps/Minutes x20 for quality assessment, pause 5 sec Comments cued slow, noted little L UE tremor end range 180 deg due to muscle tension Standing Exercises forward punch Standing Exercise Name added to HEP Side right Resistance AROM Reps/Minutes x10 Comments approx 90 deg FF, last few reps approx 70-80 deg IR Side left Resistance TB #1 Equipment Used towel under arm Reps/Minutes x15 Comments cued elbow at side seam, humeral spin ext Standing Exercise Name R only- added to HEP Side right Equipment Used L1 Reps/Minutes x10 Comments cued slow eccentric control, level shlds shoulder rows Standing Exercise Name single arm- added to HEP Side right Equipment Used L1 Reps/Minutes x10 Comments cue for scap retraction wall slide Standing Exercise Name forearm on wall-comfortable range up to 90 deg Side bilateral Resistance together, RUE only able get to 90 deg Reps/Minutes 1x10 Comments cue for posture, scapula down and back PT-OP-R Modalities Start: 06/18/21 07:58 Freq: Status: Active Protocol: Document 10/03/21 09:04 JG (Rec: 10/03/21 09:26 JG [id number]) Hot Pack/Cold Pack Treatment Heat Location L shld Patient Position Sidelying Treatment Duration (minutes) 10 Patient Tolerance Good PT-OP-T Assessment and Plan Start: 06/18/21 07:58 Freq: Status: Active Protocol: Document 11/05/21 13:00 SP (Rec: 11/05/21 13:58 SP [id number]) Physical Therapy Assessment Goals compensation Impairment pt compensates through shoulder elevation and trunk lateral flexion with OH Short Term Goal (STG) 09/24 goal met pt has minimal L shoulder hike while performing active shoulder flexion and abduction . Snf Goal (LTG) pt will show improved scapular and shoulder strength to reach overhead with minimal compensation of shoulder elevation and trunk lateral flexion to R LTG Duration 8 weeks strength Impairment significant weakness for flexion and abduction Short Term Goal (STG) 09/24 partially met pt is able to hold a cup without water with an extended arm pt will show 1 MMT improvements on L shoulder ( flexion and abduction) so she can hold a cup of water with L arm, STG Duration 4 weeks Snf Goal (LTG) pt will increase in overall shoulder strength so she can participate house chorese such as dish washing, sweeping and etc LTG Duration 8 weeks quickdash Impairment pt scores 40.9 on quick dash Short Term Goal (STG) 09/24 goal met pt scores 25 on quickdash pt will regain mobility and strength by scoring <30 on quickdash STG Duration 4 weeks Snf Goal (LTG) pt will regain mobility and strength by scoring <20 on quickdash LTG Duration 8 weeks Assessment Summary Assessment Pt worked hard, reported painfree just muscle tiring and most time just brief rest for allowance to move on to next ex. Pt still requires support of LUE using RUE initial lift off table FF in supine then able to complete FF arc OH almost to side of body return. Progressed in physican HEP TB strengthening : L single arm ext, IR, forward punch, D@ flexion AROM only with cues for alignment. Physical Therapy Plan Frequency and Duration Frequency of Treatment 2x/Week Duration of Treatment 12 weeks Plan of Care Start Date 09/24/21 Plan of Care End Date 12/23/21 Therapeutic Interventions Therapeutic Interventions Home Exercise Program,Joint Mobilizations,Manual Therapy, Neuromuscular Re-education, Patient/Caregiver Education, Self-Care/Home Management,Soft Tissue Mobilization,Taping, Therapeutic Activities, Therapeutic Exercises Modalities Cold Pack/Ice Massage,Electric Stimulation,Hot Packs, Infrared Therapy,Ultrasound Next Visit Focus/Plan Next Note Type Treatment Note Next Visit Plan Recheck TB standing HEP. POC: progress standing shld strengthening and stabilizing exercises. Manual therapy to decrease tone in supraspinatus , pecs, UT muscles and increase scapular depression on L shld.
--- NOTE | 2021-11-08 13:49 | PT.OTN ---
Current Diagnoses Other specific arthropathies, not elsewhere classified, right shoulder (11/08/21) Strain of other muscles, fascia and tendons at shoulder and upper arm level, left arm, initial encounter (11/08/21) Physical Therapy Treatment Note PT-OP-A Visit Information Start: 06/18/21 07:58 Freq: Status: Active Protocol: Document 11/08/21 13:00 [facility] (Rec: 11/08/21 13:49 [facility] [id number]) Out-Patient Physical Therapy Visit Information Visit Information Visit Type Progress Note Visit Note 11/05 Visit Start Time 13:00 Visit Stop Time 13:43 Total Visit Minutes 43 Visit Number 19 Number of CHIEF ENGINEER Visits 0 PT-OP-B Current Condition Start: 06/18/21 07:58 Freq: Status: Active Protocol: Document 06/18/21 10:01 (Rec: 06/18/21 10:28 [email or web address]) Current Condition History of Current Condition Onset Date 04/04/21 Current Complaints L shoulder pain, difficulty lifting her arm History of Current Condition Serenity is a 75yo female here for her L shoulder pain and difficulty lifting her arm up after her recent fall on out of [employer] parking lot. Pt fell on her L side and L side of the face. She has been experiencing pain at superior lateral aspect of the L shoulder. Her major limitation is shoulder flexion and abduction and she is unable to hold any weighted object. She states she has been getting better and able to regain most AROM but with pain. She has no pain at rest and also denies any night pain, radiating pain, tingling and numbness. She has been using OH brianna and bicep curls and AROM exercise at home. Prior Treatments and Tests X-ray at L shoulder = negative pt had a course of PT here at [facility] for her R hip and gait. 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 Patient Questionnaires Quick Dash- Upper Extremity Quick Dash UE Score 27 PT-OP-E Functional Tests Start: 06/18/21 07:58 Freq: Status: Active Protocol: Document 06/18/21 10:01 (Rec: 06/18/21 10:28 [email or web address]) Functional Tests Apley's Scratch Test Action 2- Left T2 Action 2- Right T3 Action 3- Left T4 Action 3- Right T6 PT-OP-F Manual Assessment Start: 06/18/21 07:58 Freq: Status: Active Protocol: Document 06/18/21 10:01 (Rec: 06/18/21 10:28 [email or web address]) Manual Assessments Soft Tissue Assessment Soft Tissue Mobility Assessment tenderness with pressure at supraspinatus and middle deltoid PT-OP-K Range of Motion Start: 06/18/21 07:58 Freq: Status: Active Protocol: Document 11/08/21 13:00 [facility] (Rec: 11/08/21 13:49 [facility] [id number]) Shoulder Goniometric Range of Motion Shoulder Right Active Shoulder ROM WFL Yes Testing Position Standing Left Active Shoulder ROM WFL No Testing Position Sitting PT-OP-L Special Tests Start: 06/18/21 07:58 Freq: Status: Active Protocol: Document 06/18/21 10:01 (Rec: 06/18/21 10:28 [email or web address]) Special Tests Shoulder Special Tests Drop Arm Rotator Cuff Test Results -ve Comments significant weakness noted Yergason's Biceps Test Results -ve painful arc Test Results +VE L Comments pain Speed's Biceps Test Results -ve [place] Test Test Results +VE Comments no clicking, significant weakness noted Samayoa Jay Impingement Test Results -ve Empty Can Test Results +VE L Comments significant weakness noted PT-OP-M Strength Start: 06/18/21 07:58 Freq: Status: Active Protocol: Document 11/08/21 13:00 [facility] (Rec: 11/08/21 13:49 [facility] [id number]) Shoulder Strength Shoulder Manual Muscle Testing Right Flexion 4+ Good+ Extension 4+ Good+ Abduction (C5) 4+ Good+ Adduction 4+ Good+ External Rotation 4+ Good+ Internal Rotation 4+ Good+ Left Flexion 3+ Fair+ Extension 4 Good Abduction (C5) 3+ Fair+ Adduction 4+ Good+ External Rotation 3+ Fair+ Internal Rotation 4+ Good+ Comments pain with resisted motion PT-OP-Q Treatments Start: 06/18/21 07:58 Freq: Status: Active Protocol: Document 11/08/21 13:00 [facility] (Rec: 11/08/21 13:49 [facility] [id number]) Therapeutic Exercises Supine Exercises FF Side left Resistance AROM Reps/Minutes x10 Comments initial lift support off table then ableto complete arc OH Abduction Side bilateral Resistance bodyweight Reps/Minutes 2x10 Standing Exercises ER Side left forward punch Side right Resistance AROM Reps/Minutes x10 Comments D 2 flex cross body Standing Exercise Name D1 flex Resistance L2 Reps/Minutes 10 IR Side left Resistance TB #1 Equipment Used towel under arm Reps/Minutes 10 Comments cued elbow at side seam, humeral spin ext Side bilateral Equipment Used L2 Reps/Minutes 15 Comments cued slow eccentric control, level shlds shoulder rows Side bilateral Equipment Used L2 Reps/Minutes x10 Comments cue for scap retraction Manual Therapy Treatment Soft Tissue Mobilization pecs Mobilization Type Cross-Friction,Oscillations, Strumming,Sustained Pressure Intensity/Depth Moderate Body Position Sidelying Comments w/ER/IR supraspinatus tendon Body Location tendon and muscle Mobilization Type Cross-Friction,Myofascial Release,Oscillations,Sustained Pressure,Trigger Point Release Intensity/Depth Moderate Body Position Sidelying Comments w/ER passive movement PT-OP-R Modalities Start: 06/18/21 07:58 Freq: Status: Active Protocol: Document 10/03/21 09:04 JG (Rec: 10/03/21 09:26 JG [id number]) Hot Pack/Cold Pack Treatment Heat Location L shld Patient Position Sidelying Treatment Duration (minutes) 10 Patient Tolerance Good PT-OP-T Assessment and Plan Start: 06/18/21 07:58 Freq: Status: Active Protocol: Document 11/08/21 13:00 [facility] (Rec: 11/08/21 13:49 [facility] [id number]) Physical Therapy Assessment Goals compensation Impairment pt compensates through shoulder elevation and trunk lateral flexion with OH Short Term Goal (STG) 09/24 goal met pt has minimal L shoulder hike while performing active shoulder flexion and abduction . STG Duration goal met Dimethylaniline Sulfator Operator Goal (LTG) pt will show improved scapular and shoulder strength to reach overhead with minimal compensation of shoulder elevation and trunk lateral flexion to R LTG Duration goal met 11/08 strength Impairment significant weakness for flexion and abduction Short Term Goal (STG) 09/24 partially met pt is able to hold a cup without water with an extended arm pt will show 1 MMT improvements on L shoulder ( flexion and abduction) so she can hold a cup of water with L arm, STG Duration 4 weeks Longterm Goal (LTG) pt will increase in overall shoulder strength so she can participate house chorese such as dish washing, sweeping and etc LTG Duration 8 weeks quickdash Impairment pt scores 40.9 on quick dash Short Term Goal (STG) 09/24 goal met pt scores 25 on quickdash pt will regain mobility and strength by scoring <30 on quickdash STG Duration goal met Longterm Goal (LTG) pt will regain mobility and strength by scoring <20 on quickdash LTG Duration 8 weeks Assessment Summary Assessment Pt is making slow progress. SHe is now able to do AROM w/o compensation when she is focusing on it but has difficulty w/any added resistance still. Plan to cont PT through end of month prior to DC to HEP Physical Therapy Plan Frequency and Duration Frequency of Treatment 2x/Week Duration of Treatment 12 weeks Plan of Care Start Date 09/24/21 Plan of Care End Date 12/23/21 Next Visit Focus/Plan Next Note Type Treatment Note Next Visit Plan Recheck TB standing HEP. POC: progress standing shld strengthening and stabilizing exercises. Manual therapy to decrease tone in supraspinatus , pecs, UT muscles and increase scapular depression on L shld.
--- NOTE | 2021-11-13 09:03 | PT.OTN ---
Current Diagnoses Other specific arthropathies, not elsewhere classified, right shoulder (11/13/21) Strain of other muscles, fascia and tendons at shoulder and upper arm level, left arm, initial encounter (11/13/21) Physical Therapy Treatment Note PT-OP-A Visit Information Start: 06/18/21 07:58 Freq: Status: Active Protocol: Document 11/13/21 08:23 [facility] (Rec: 11/13/21 09:03 [facility] [id number]) Out-Patient Physical Therapy Visit Information Visit Information Visit Type Treatment Note Visit Note 12/06 Visit Start Time 08:20 Visit Stop Time 08:59 Total Visit Minutes 39 Visit Number 20 Number of HOOP MAKER MACHINE Visits 0 PT-OP-B Current Condition Start: 06/18/21 07:58 Freq: Status: Active Protocol: Document 06/18/21 10:01 (Rec: 06/18/21 10:28 [email or web address]) Current Condition History of Current Condition Onset Date 04/04/21 Current Complaints L shoulder pain, difficulty lifting her arm History of Current Condition Serenity is a 75yo female here for her L shoulder pain and difficulty lifting her arm up after her recent fall on out of [employer] parking lot. Pt fell on her L side and L side of the face. She has been experiencing pain at superior lateral aspect of the L shoulder. Her major limitation is shoulder flexion and abduction and she is unable to hold any weighted object. She states she has been getting better and able to regain most AROM but with pain. She has no pain at rest and also denies any night pain, radiating pain, tingling and numbness. She has been using OH brianna and bicep curls and AROM exercise at home. Prior Treatments and Tests X-ray at L shoulder = negative pt had a course of PT here at [facility] for her R hip and gait. 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) PT-OP-C Subjective Start: 06/18/21 07:58 Freq: Status: Active Protocol: Document 11/13/21 08:23 [facility] (Rec: 11/13/21 09:03 [facility] [id number]) OP-PT Subjective Patient Comments Patient Comments Pt reports she has a question on Stand Inshield wiper exercise PT-OP-E Functional Tests Start: 06/18/21 07:58 Freq: Status: Active Protocol: Document 06/18/21 10:01 (Rec: 06/18/21 10:28 [email or web address]) Functional Tests Apley's Scratch Test Action 2- Left T2 Action 2- Right T3 Action 3- Left T4 Action 3- Right T6 PT-OP-F Manual Assessment Start: 06/18/21 07:58 Freq: Status: Active Protocol: Document 06/18/21 10:01 (Rec: 06/18/21 10:28 [email or web address]) Manual Assessments Soft Tissue Assessment Soft Tissue Mobility Assessment tenderness with pressure at supraspinatus and middle deltoid PT-OP-K Range of Motion Start: 06/18/21 07:58 Freq: Status: Active Protocol: Document 11/08/21 13:00 [facility] (Rec: 11/08/21 13:49 [facility] [id number]) Shoulder Goniometric Range of Motion Shoulder Right Active Shoulder ROM WFL Yes Testing Position Standing Left Active Shoulder ROM WFL No Testing Position Sitting PT-OP-L Special Tests Start: 06/18/21 07:58 Freq: Status: Active Protocol: Document 06/18/21 10:01 (Rec: 06/18/21 10:28 [email or web address]) Special Tests Shoulder Special Tests Drop Arm Rotator Cuff Test Results -ve Comments significant weakness noted Demarcorgason's Biceps Test Results -ve painful arc Test Results +VE L Comments pain Speed's Biceps Test Results -ve [place] Test Test Results +VE Comments no clicking, significant weakness noted Samayoa Jay Impingement Test Results -ve Empty Can Test Results +VE L Comments significant weakness noted PT-OP-M Strength Start: 06/18/21 07:58 Freq: Status: Active Protocol: Document 11/08/21 13:00 [facility] (Rec: 11/08/21 13:49 [facility] [id number]) Shoulder Strength Shoulder Manual Muscle Testing Right Flexion 4+ Good+ Extension 4+ Good+ Abduction (C5) 4+ Good+ Adduction 4+ Good+ External Rotation 4+ Good+ Internal Rotation 4+ Good+ Left Flexion 3+ Fair+ Extension 4 Good Abduction (C5) 3+ Fair+ Adduction 4+ Good+ External Rotation 3+ Fair+ Internal Rotation 4+ Good+ Comments pain with resisted motion PT-OP-Q Treatments Start: 06/18/21 07:58 Freq: Status: Active Protocol: Document 11/13/21 08:23 [facility] (Rec: 11/13/21 09:03 [facility] [id number]) Therapeutic Exercises Supine Exercises FF Side left Resistance AROM Reps/Minutes 2x15 Comments initial lift support off table then ableto complete arc OH Abduction Supine Exercise Name cues for palm up Side bilateral Resistance bodyweight Reps/Minutes 2x15 Standing Exercises ER Side left Equipment Used AROM Reps/Minutes 15 forward punch Side right Resistance AROM Reps/Minutes 1x12,1x10 Comments D 2 flex cross body Standing Exercise Name D1 flex Resistance L2 Reps/Minutes 2x15 IR Side left Resistance TB #2 Equipment Used towel under arm Reps/Minutes 2x15 Comments cued elbow at side seam, humeral spin ext Side bilateral Equipment Used L2 Reps/Minutes 2x10 Comments cued slow eccentric control, level shlds Manual Therapy Treatment Soft Tissue Mobilization UT/LS Body Location L Mobilization Type Rolling,Strumming,Sustained Pressure Intensity/Depth Moderate Body Position Sidelying Comments w/passive scap movement pecs Mobilization Type Cross-Friction,Oscillations, Strumming,Sustained Pressure Intensity/Depth Moderate Body Position Sidelying Comments w/ER/IR supraspinatus tendon Body Location tendon and muscle Mobilization Type Cross-Friction,Myofascial Release,Oscillations,Sustained Pressure,Trigger Point Release Intensity/Depth Moderate Body Position Sidelying Comments w/ER passive movement Joint Mobilizations GHJ Direction gentle distraction w/AROM flex & abd PT-OP-R Modalities Start: 06/18/21 07:58 Freq: Status: Active Protocol: Document 10/03/21 09:04 JG (Rec: 10/03/21 09:26 [id number]) Hot Pack/Cold Pack Treatment Heat Location L shld Patient Position Sidelying Treatment Duration (minutes) 10 Patient Tolerance Good PT-OP-T Assessment and Plan Start: 06/18/21 07:58 Freq: Status: Active Protocol: Document 11/13/21 08:23 [facility] (Rec: 11/13/21 09:03 [facility] [id number]) Physical Therapy Assessment Goals compensation Impairment pt compensates through shoulder elevation and trunk lateral flexion with OH Short Term Goal (STG) 09/24 goal met pt has minimal L shoulder hike while performing active shoulder flexion and abduction . STG Duration goal met Mmd Unit Teacher Goal (LTG) pt will show improved scapular and shoulder strength to reach overhead with minimal compensation of shoulder elevation and trunk lateral flexion to R LTG Duration goal met 11/08 strength Impairment significant weakness for flexion and abduction Short Term Goal (STG) 09/24 partially met pt is able to hold a cup without water with an extended arm pt will show 1 MMT improvements on L shoulder ( flexion and abduction) so she can hold a cup of water with L arm, STG Duration 4 weeks Mmd Unit Teacher Goal (LTG) pt will increase in overall shoulder strength so she can participate house chorese such as dish washing, sweeping and etc LTG Duration 8 weeks quickdash Impairment pt scores 40.9 on quick dash Short Term Goal (STG) 09/24 goal met pt scores 25 on quickdash pt will regain mobility and strength by scoring <30 on quickdash STG Duration goal met Mmd Unit Teacher Goal (LTG) pt will regain mobility and strength by scoring <20 on quickdash LTG Duration 8 weeks Assessment Summary Assessment Pt did better with exerciess in standing today but still needed cueing in supine for abd exercise for hand position . Physical Therapy Plan Frequency and Duration Frequency of Treatment 2x/Week Duration of Treatment 12 weeks Plan of Care Start Date 09/24/21 Plan of Care End Date 12/23/21 Next Visit Focus/Plan Next Note Type Treatment Note Next Visit Plan Review TB standing HEP. Manual therapy to decrease tone in supraspinatus, pecs, UT muscles and increase scapular depression on L shld.
--- NOTE | 2021-11-15 11:16 | PT.OTN ---
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 Pt fell on her L side and L side of the face. She has been experiencing pain at superior lateral aspect of the L shoulder. Her major limitation is shoulder flexion and abduction and she is unable to hold any weighted object. She states she has been getting better and able to regain most AROM but with pain. She has no pain at rest and also denies any night pain, radiating pain, tingling and numbness. She has been using OH brianna and bicep curls and AROM exercise at home. Prior Treatments and Tests X-ray at L shoulder = negative pt had a course of PT here at [facility] for her R hip and gait. 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 PT-OP-E Functional Tests Start: 06/18/21 07:58 Freq: Status: Active Protocol: Document 06/18/21 10:01 (Rec: 06/18/21 10:28 [email or web address]) Functional Tests Apley's Scratch Test Action 2- Left T2 Action 2- Right T3 Action 3- Left T4 Action 3- Right T6 PT-OP-F Manual Assessment Start: 06/18/21 07:58 Freq: Status: Active Protocol: Document 06/18/21 10:01 (Rec: 06/18/21 10:28 [email or web address]) Manual Assessments Soft Tissue Assessment Soft Tissue Mobility Assessment tenderness with pressure at supraspinatus and middle deltoid PT-OP-K Range of Motion Start: 06/18/21 07:58 Freq: Status: Active Protocol: Document 11/08/21 13:00 [facility] (Rec: 11/08/21 13:49 [facility] [id number]) Shoulder Goniometric Range of Motion Shoulder Right Active Shoulder ROM WFL Yes Testing Position Standing Left Active Shoulder ROM WFL No Testing Position Sitting PT-OP-L Special Tests Start: 06/18/21 07:58 Freq: Status: Active Protocol: Document 06/18/21 10:01 (Rec: 06/18/21 10:28 [email or web address]) Special Tests Shoulder Special Tests Drop Arm Rotator Cuff Test Results -ve Comments significant weakness noted Demarcoranason's Biceps Test Results -ve painful arc Test Results +VE L Comments pain Speed's Biceps Test Results -ve [place] Test Test Results +VE Comments no clicking, significant weakness noted Samayoa Jay Impingement Test Results -ve Empty Can Test Results +VE L Comments significant weakness noted PT-OP-M Strength Start: 06/18/21 07:58 Freq: Status: Active Protocol: Document 11/08/21 13:00 [facility] (Rec: 11/08/21 13:49 [facility] [id number]) Shoulder Strength Shoulder Manual Muscle Testing Right Flexion 4+ Good+ Extension 4+ Good+ Abduction (C5) 4+ Good+ Adduction 4+ Good+ External Rotation 4+ Good+ Internal Rotation 4+ Good+ Left Flexion 3+ Fair+ Extension 4 Good Abduction (C5) 3+ Fair+ Adduction 4+ Good+ External Rotation 3+ Fair+ Internal Rotation 4+ Good+ Comments pain with resisted motion PT-OP-Q Treatments Start: 06/18/21 07:58 Freq: Status: Active Protocol: Document 11/15/21 10:36 SP (Rec: 11/15/21 11:28 SP [id number]) Therapeutic Exercises Supine Exercises FF Supine Exercise Name after all stand ex, tired only 10 reps Side left Resistance AROM Reps/Minutes x10 Comments initial lift support off table then ableto complete arc OH Abduction Supine Exercise Name cues for palm up (windshield wiper/snow reji) Side bilateral Resistance bodyweight AROM Equipment Used (large table) Reps/Minutes 2x15 Comments good form abd w/ elbow bent Supine Exercise Name HEP Side left Equipment Used AROM Reps/Minutes x10 Comments able complete w/out support- good self corrections supine ER Supine Exercise Name 90/90 Side left Resistance TB 2# Reps/Minutes 1x12 Comments cued for painfree range Sidelying Exercises hor abd Sidelying Exercise Name open book motion (HEP) Side left Resistance #1 DB Reps/Minutes 20 Comments cued slow pacing for good control Standing Exercises D2 flexion Side left Resistance AROM Equipment Used in mirror Reps/Minutes x10 Comments level shlds sword held high ER Side left Equipment Used AROM Reps/Minutes 15 forward punch Side right Resistance TB #1 Equipment Used mirror Reps/Minutes x10 Comments cued level shlds IR Side left Resistance TB #2 Equipment Used towel under arm Reps/Minutes 2x15 Comments cued elbow at side seam, humeral spin ext Standing Exercise Name single arm, cued stagger wider stance. Side left Resistance row and ext Equipment Used L2 Reps/Minutes 2x10 Comments cued slow eccentric control, level shlds PT-OP-R Modalities Start: 06/18/21 07:58 Freq: Status: Active Protocol: Document 10/03/21 09:04 JG (Rec: 10/03/21 09:26 JG [id number]) Hot Pack/Cold Pack Treatment Heat Location L shld Patient Position Sidelying Treatment Duration (minutes) 10 Patient Tolerance Good PT-OP-T Assessment and Plan Start: 06/18/21 07:58 Freq: Status: Active Protocol: Document 11/15/21 10:36 SP (Rec: 11/15/21 11:28 SP [id number]) Physical Therapy Assessment Goals compensation Impairment pt compensates through shoulder elevation and trunk lateral flexion with OH Short Term Goal (STG) 09/24 goal met pt has minimal L shoulder hike while performing active shoulder flexion and abduction . STG Duration goal met Alf Goal (LTG) pt will show improved scapular and shoulder strength to reach overhead with minimal compensation of shoulder elevation and trunk lateral flexion to R LTG Duration goal met 11/08 strength Impairment significant weakness for flexion and abduction Short Term Goal (STG) 09/24 partially met pt is able to hold a cup without water with an extended arm pt will show 1 MMT improvements on L shoulder ( flexion and abduction) so she can hold a cup of water with L arm, STG Duration 4 weeks Inside Outside Sales Representative Goal (LTG) pt will increase in overall shoulder strength so she can participate house chorese such as dish washing, sweeping and etc LTG Duration 8 weeks quickdash Impairment pt scores 40.9 on quick dash Short Term Goal (STG) 09/24 goal met pt scores 25 on quickdash pt will regain mobility and strength by scoring <30 on quickdash STG Duration goal met Inside Outside Sales Representative Goal (LTG) pt will regain mobility and strength by scoring <20 on quickdash LTG Duration 8 weeks Assessment Summary Assessment Pt had good effort today, able to complete LUE abd (w/ elbow bent) to 90 deg for 10 reps supine and standing D2 flexion end range with occasional cues, even after many other TB exercises. Cued for slow pacing control and alignment at times to allow successful range throughout HEP review, more with abd and ER to reduce compensations. Physical Therapy Plan Frequency and Duration Frequency of Treatment 2x/Week Duration of Treatment 12 weeks Plan of Care Start Date 09/24/21 Plan of Care End Date 12/23/21 Therapeutic Interventions Therapeutic Interventions Home Exercise Program,Joint Mobilizations,Manual Therapy, Neuromuscular Re-education, Patient/Caregiver Education, Self-Care/Home Management,Soft Tissue Mobilization,Taping, Therapeutic Activities, Therapeutic Exercises Modalities Cold Pack/Ice Massage,Electric Stimulation,Hot Packs, Infrared Therapy,Ultrasound Next Visit Focus/Plan Next Note Type Treatment Note Next Visit Plan Next tx: emphasis on supine proximal strength abd, initiating FF off table weakness. POC: Manual therapy to decrease tone in supraspinatus , pecs, UT muscles and increase scapular depression on L shld.
--- NOTE | 2021-11-20 10:30 | PT.OTN ---
Current Diagnoses Other specific arthropathies, not elsewhere classified, right shoulder (11/20/21) Strain of other muscles, fascia and tendons at shoulder and upper arm level, left arm, initial encounter (11/20/21) Physical Therapy Treatment Note PT-OP-A Visit Information Start: 06/18/21 07:58 Freq: Status: Active Protocol: Document 11/20/21 09:47 SP (Rec: 11/20/21 10:33 SP [id number]) Out-Patient Physical Therapy Visit Information Visit Information Visit Type Treatment Note Visit Note 02/03 Visit Start Time 09:47 Visit Stop Time 10:30 Total Visit Minutes 43 Visit Number 22 Number of JOURNEYMAN PLUMBER Visits 2 Evaluation Information Evaluation Date 06/18/21 Precautions Precautions 7 falls in last year depression psychological disorder (didnt specific) PT-OP-B Current Condition Start: 06/18/21 07:58 Freq: Status: Active Protocol: Document 06/18/21 10:01 HH (Rec: 06/18/21 10:28 HH [email or web address]) Current Condition History of Current Condition Onset Date 04/04/21 Current Complaints L shoulder pain, difficulty lifting her arm History of Current Condition Serenity is a 75yo female here for her L shoulder pain and difficulty lifting her arm up after her recent fall on out of [employer] parking lot. Pt fell on her L side and L side of the face. She has been experiencing pain at superior lateral aspect of the L shoulder. Her major limitation is shoulder flexion and abduction and she is unable to hold any weighted object. She states she has been getting better and able to regain most AROM but with pain. She has no pain at rest and also denies any night pain, radiating pain, tingling and numbness. She has been using OH brianna and bicep curls and AROM exercise at home. Prior Treatments and Tests X-ray at L shoulder = negative pt had a course of PT here at [facility] for her R hip and gait. 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 She states feels continues to make gains, able to hold things out in front now but LUE tires quickly, so can't vacuum so helps. PT-OP-E Functional Tests Start: 06/18/21 07:58 Freq: Status: Active Protocol: Document 06/18/21 10:01 (Rec: 06/18/21 10:28 [email or web address]) Functional Tests Apley's Scratch Test Action 2- Left T2 Action 2- Right T3 Action 3- Left T4 Action 3- Right T6 PT-OP-F Manual Assessment Start: 06/18/21 07:58 Freq: Status: Active Protocol: Document 06/18/21 10:01 (Rec: 06/18/21 10:28 [email or web address]) Manual Assessments Soft Tissue Assessment Soft Tissue Mobility Assessment tenderness with pressure at supraspinatus and middle deltoid PT-OP-K Range of Motion Start: 06/18/21 07:58 Freq: Status: Active Protocol: Document 11/08/21 13:00 [facility] (Rec: 11/08/21 13:49 [facility] [id number]) Shoulder Goniometric Range of Motion Shoulder Right Active Shoulder ROM WFL Yes Testing Position Standing Left Active Shoulder ROM WFL No Testing Position Sitting PT-OP-L Special Tests Start: 06/18/21 07:58 Freq: Status: Active Protocol: Document 06/18/21 10:01 (Rec: 06/18/21 10:28 [email or web address]) Special Tests Shoulder Special Tests Drop Arm Rotator Cuff Test Results -ve Comments significant weakness noted Yergason's Biceps Test Results -ve painful arc Test Results +VE L Comments pain Speed's Biceps Test Results -ve Elizabeth Test Test Results +VE Comments no clicking, significant weakness noted Samayoa Jay Impingement Test Results -ve Empty Can Test Results +VE L Comments significant weakness noted PT-OP-M Strength Start: 06/18/21 07:58 Freq: Status: Active Protocol: Document 11/08/21 13:00 [facility] (Rec: 11/08/21 13:49 [facility] [id number]) Shoulder Strength Shoulder Manual Muscle Testing Right Flexion 4+ Good+ Extension 4+ Good+ Abduction (C5) 4+ Good+ Adduction 4+ Good+ External Rotation 4+ Good+ Internal Rotation 4+ Good+ Left Flexion 3+ Fair+ Extension 4 Good Abduction (C5) 3+ Fair+ Adduction 4+ Good+ External Rotation 3+ Fair+ Internal Rotation 4+ Good+ Comments pain with resisted motion PT-OP-Q Treatments Start: 06/18/21 07:58 Freq: Status: Active Protocol: Document 11/20/21 09:47 SP (Rec: 11/20/21 10:33 SP [id number]) Therapeutic Exercises Supine Exercises FF Supine Exercise Name after all stand ex, tired only 10 reps Side left Resistance AROM (7*- 163*) Reps/Minutes x16 Comments initial lift support off table RUE then able to complete arc OH Abduction Supine Exercise Name cues for palm up (windshield wiper/snow reji) Side bilateral Resistance bodyweight AROM (L UE 159*) Equipment Used small table, 1 pillow under head Reps/Minutes x17 Comments good form Standing Exercises D2 flexion Side left Resistance AROM Equipment Used in mirror Reps/Minutes x12 Comments cued level shlds sword held high ER Side left Resistance AROM Equipment Used towel under arm Reps/Minutes x15 L Comments cued tall posture, scap back neutral, CS back neutral forward punch Side right Resistance TB #1 (20 R, 10 L) Equipment Used mirror Comments cued level shlds IR Standing Exercise Name HEP reviewed Side bilateral Resistance TB #2 Equipment Used towel under arm Reps/Minutes 2x15 BUE Comments cued elbow at side seam, humeral spin ext Standing Exercise Name single arm Side left Equipment Used L1 Reps/Minutes x15 Comments cued slow eccentric control, level shlds w/ elbow straight PT-OP-R Modalities Start: 06/18/21 07:58 Freq: Status: Active Protocol: Document 10/03/21 09:04 JG (Rec: 10/03/21 09:26 JG [id number]) Hot Pack/Cold Pack Treatment Heat Location L shld Patient Position Sidelying Treatment Duration (minutes) 10 Patient Tolerance Good PT-OP-T Assessment and Plan Start: 06/18/21 07:58 Freq: Status: Active Protocol: Document 11/20/21 09:47 SP (Rec: 11/20/21 10:33 SP [id number]) Physical Therapy Assessment Goals compensation Impairment pt compensates through shoulder elevation and trunk lateral flexion with OH Short Term Goal (STG) 09/24 goal met pt has minimal L shoulder hike while performing active shoulder flexion and abduction . STG Duration goal met Half-Way Goal (LTG) pt will show improved scapular and shoulder strength to reach overhead with minimal compensation of shoulder elevation and trunk lateral flexion to R LTG Duration goal met 11/08 strength Impairment significant weakness for flexion and abduction Short Term Goal (STG) pt will show 1 MMT improvements on L shoulder ( flexion and abduction) so she can hold a cup of water with L arm 09/24 partially met pt is able to hold a cup without water with an extended arm 11/20/21: pt able to hold cup water out front with extended LUE. STG Duration 4 weeks Half-Way Goal (LTG) pt will increase in overall shoulder strength so she can participate house chores such as dish washing, sweeping and etc 11/20/21: progressing: able to wash dishes without limitation , to hard to vacuum due to tiring quickly, so performs, they dont need to sweep. Still challenged with supine lifting arm off table and out to side. LTG Duration 8 weeks quickdash Impairment pt scores 40.9 on quick dash Short Term Goal (STG) 09/24 goal met pt scores 25 on quickdash pt will regain mobility and strength by scoring <30 on quickdash STG Duration goal met Half-Way Goal (LTG) pt will regain mobility and strength by scoring <20 on quickdash LTG Duration 8 weeks Assessment Summary Assessment Pt improving in FF and ABD AROM in supine but continues to need support for initial lift off table. Pt is able to hold cup water with arm extended FF but states still limited in endurance strength to vacuum but feel still making gains and wants to continue PT beyond next and last tx scheduled. Physical Therapy Plan Frequency and Duration Frequency of Treatment 2x/Week Duration of Treatment 12 weeks Plan of Care Start Date 09/24/21 Plan of Care End Date 12/23/21 Therapeutic Interventions Therapeutic Interventions Home Exercise Program,Joint Mobilizations,Manual Therapy, Neuromuscular Re-education, Patient/Caregiver Education, Self-Care/Home Management,Soft Tissue Mobilization,Taping, Therapeutic Activities, Therapeutic Exercises Modalities Cold Pack/Ice Massage,Electric Stimulation,Hot Packs, Infrared Therapy,Ultrasound Next Visit Focus/Plan Next Note Type Treatment Note Next Visit Plan PT to assess goals further: MMT LUE and quick dash goal feedback. Next tx: Continue emphasis on supine proximal strength abd, initiating FF off table weakness. POC: Manual therapy to decrease tone in supraspinatus , pecs, UT muscles and increase scapular depression on L shld.
--- NOTE | 2021-11-22 09:01 | PT.OTN ---
Current Diagnoses Other specific arthropathies, not elsewhere classified, right shoulder (11/22/21) Strain of other muscles, fascia and tendons at shoulder and upper arm level, left arm, initial encounter (11/22/21) Physical Therapy Treatment Note PT-OP-A Visit Information Start: 06/18/21 07:58 Freq: Status: Active Protocol: Document 11/22/21 08:15 [facility] (Rec: 11/22/21 09:01 [facility] [id number]) Out-Patient Physical Therapy Visit Information Visit Information Visit Type Progress Note Visit Note 11/05 Visit Start Time 08:18 Visit Stop Time 08:57 Total Visit Minutes 39 Visit Number 23 Number of RIM ROLLER OPERATOR Visits 0 PT-OP-B Current Condition Start: 06/18/21 07:58 Freq: Status: Active Protocol: Document 06/18/21 10:01 (Rec: 06/18/21 10:28 [email or web address]) Current Condition History of Current Condition Onset Date 04/04/21 Current Complaints L shoulder pain, difficulty lifting her arm History of Current Condition Serenity is a 75yo female here for her L shoulder pain and difficulty lifting her arm up after her recent fall on out of [employer] parking lot. Pt fell on her L side and L side of the face. She has been experiencing pain at superior lateral aspect of the L shoulder. Her major limitation is shoulder flexion and abduction and she is unable to hold any weighted object. She states she has been getting better and able to regain most AROM but with pain. She has no pain at rest and also denies any night pain, radiating pain, tingling and numbness. She has been using OH brianna and bicep curls and AROM exercise at home. Prior Treatments and Tests X-ray at L shoulder = negative pt had a course of PT here at [facility] for her R hip and gait. 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) PT-OP-C Subjective Start: 06/18/21 07:58 Freq: Status: Active Protocol: Document 11/22/21 08:15 [facility] (Rec: 11/22/21 09:01 [facility] [id number]) OP-PT Subjective Patient Comments Patient Comments Pt feels like she has made good progress functionally but still has some trouble at home. Patient Questionnaires Quick Dash- Upper Extremity Quick Dash UE Score 22.7 PT-OP-E Functional Tests Start: 06/18/21 07:58 Freq: Status: Active Protocol: Document 06/18/21 10:01 (Rec: 06/18/21 10:28 [email or web address]) Functional Tests Apley's Scratch Test Action 2- Left T2 Action 2- Right T3 Action 3- Left T4 Action 3- Right T6 PT-OP-F Manual Assessment Start: 06/18/21 07:58 Freq: Status: Active Protocol: Document 06/18/21 10:01 (Rec: 06/18/21 10:28 [email or web address]) Manual Assessments Soft Tissue Assessment Soft Tissue Mobility Assessment tenderness with pressure at supraspinatus and middle deltoid PT-OP-K Range of Motion Start: 06/18/21 07:58 Freq: Status: Active Protocol: Document 11/08/21 13:00 [facility] (Rec: 11/08/21 13:49 [facility] [id number]) Shoulder Goniometric Range of Motion Shoulder Right Active Shoulder ROM WFL Yes Testing Position Standing Left Active Shoulder ROM WFL No Testing Position Sitting PT-OP-L Special Tests Start: 06/18/21 07:58 Freq: Status: Active Protocol: Document 06/18/21 10:01 (Rec: 06/18/21 10:28 [email or web address]) Special Tests Shoulder Special Tests Drop Arm Rotator Cuff Test Results -ve Comments significant weakness noted Yergason's Biceps Test Results -ve painful arc Test Results +VE L Comments pain Speed's Biceps Test Results -ve [place] Test Test Results +VE Comments no clicking, significant weakness noted Samayoa Jay Impingement Test Results -ve Empty Can Test Results +VE L Comments significant weakness noted PT-OP-M Strength Start: 06/18/21 07:58 Freq: Status: Active Protocol: Document 11/22/21 08:15 [facility] (Rec: 11/22/21 09:01 [facility] [id number]) Shoulder Strength Shoulder Manual Muscle Testing Right Flexion 4+ Good+ Extension 5 Normal Abduction (C5) 5 Normal Adduction 4+ Good+ External Rotation 4+ Good+ Internal Rotation 5 Normal Left Flexion 4- Good- Extension 5 Normal Abduction (C5) 4- Good- Adduction 5 Normal External Rotation 3+ Fair+ Internal Rotation 5 Normal Comments pain with resisted motion PT-OP-Q Treatments Start: 06/18/21 07:58 Freq: Status: Active Protocol: Document 11/22/21 08:15 [facility] (Rec: 11/22/21 09:01 [facility] [id number]) Cardio Equipment Upper Body Ergometer (UBE) Duration (Minutes) 4 Seat Position 10 Height 4 Therapeutic Exercises Supine Exercises Abduction Supine Exercise Name cues for palm up (windshield wiper/snow reji) Side bilateral Resistance bodyweight AROM Reps/Minutes 5 supine ER Supine Exercise Name 1.90/90 ER/IR 2. IR/ER at side Side left Equipment Used 2# Reps/Minutes 20 ea Comments cued for painfree range Sidelying Exercises shoulder ER Side left Resistance AROM Reps/Minutes 2x5 Standing Exercises D2 flexion Side left Resistance AROM Reps/Minutes 10 Comments cued level shlds sword held high ER Standing Exercise Name IR to neutral position Side left Resistance Lvl 1 band Equipment Used towel under arm, Reps/Minutes x15 L Comments cued tall posture, scap back neutral, CS back neutral forward punch Side right Resistance TB #2 Reps/Minutes 15 Comments cued level shlds IR Standing Exercise Name HEP reviewed Side bilateral Resistance TB #2 Equipment Used towel under arm Reps/Minutes 2x15 BUE Comments cued elbow at side seam, humeral spin ext Standing Exercise Name double arm Side bilateral Equipment Used L3 Reps/Minutes 15 Manual Therapy Treatment Soft Tissue Mobilization UT/LS Body Location L Mobilization Type Rolling,Strumming,Sustained Pressure Intensity/Depth Moderate Body Position Sidelying Comments w/passive scap movement supraspinatus tendon Body Location tendon and muscle Mobilization Type Cross-Friction,Myofascial Release,Oscillations,Sustained Pressure,Trigger Point Release Intensity/Depth Moderate Body Position Sidelying Comments w/ER passive movement PT-OP-R Modalities Start: 06/18/21 07:58 Freq: Status: Active Protocol: Document 10/03/21 09:04 [facility] (Rec: 10/03/21 09:26 [facility] [id number]) Hot Pack/Cold Pack Treatment Heat Location L shld Patient Position Sidelying Treatment Duration (minutes) 10 Patient Tolerance Good PT-OP-T Assessment and Plan Start: 06/18/21 07:58 Freq: Status: Active Protocol: Document 11/22/21 08:15 [facility] (Rec: 11/22/21 09:01 [facility] [id number]) Physical Therapy Assessment Goals compensation Impairment pt compensates through shoulder elevation and trunk lateral flexion with OH Short Term Goal (STG) 09/24 goal met pt has minimal L shoulder hike while performing active shoulder flexion and abduction . STG Duration goal met Prison Goal (LTG) pt will show improved scapular and shoulder strength to reach overhead with minimal compensation of shoulder elevation and trunk lateral flexion to R LTG Duration goal met 11/08 strength Impairment significant weakness for flexion and abduction Short Term Goal (STG) pt will show 1 MMT improvements on L shoulder ( flexion and abduction) so she can hold a cup of water with L arm 09/24 partially met pt is able to hold a cup without water with an extended arm 11/20/21: pt able to hold cup water out front with extended LUE. 11/22-can hold cup of water and 1/2 MM grade improvement STG Duration 4 weeks Trades Helper Goal (LTG) pt will increase in overall shoulder strength so she can participate house chores such as dish washing, sweeping and etc 11/20/21: progressing: able to wash dishes without limitation , to hard to vacuum due to tiring quickly, so performs, they dont need to sweep. Still challenged with supine lifting arm off table and out to side. LTG Duration 8 weeks quickdash Impairment pt scores 40.9 on quick dash Short Term Goal (STG) 09/24 goal met pt scores 25 on quickdash pt will regain mobility and strength by scoring <30 on quickdash STG Duration goal met Trades Helper Goal (LTG) pt will regain mobility and strength by scoring <20 on quickdash LTG Duration 8 weeks Assessment Summary Assessment Pt has shown good improvements over last 4 sessions w/ strength and is having greater ease w/functional activities but is still limited from more difficult activities like vacuuming. Physical Therapy Plan Frequency and Duration Frequency of Treatment 1x/Week Duration of Treatment 2 months Plan of Care Start Date 11/22/21 Plan of Care End Date 01/20/22 Therapeutic Interventions Therapeutic Interventions Home Exercise Program,Joint Mobilizations,Manual Therapy, Neuromuscular Re-education, Patient/Caregiver Education, Self-Care/Home Management,Soft Tissue Mobilization,Taping, Therapeutic Activities, Therapeutic Exercises Modalities Cold Pack/Ice Massage,Electric Stimulation,Hot Packs, Infrared Therapy,Ultrasound Next Visit Focus/Plan Next Note Type Treatment Note Next Visit Plan Continue emphasis on supine proximal strength abd, initiating FF off table weakness and ER strength. w/ Manual therapy to decrease tone in supraspinatus, pecs, UT muscles and increase scapular depression on L shld.
--- NOTE | 2021-11-22 09:02 | PT.OPPOC ---
Physical, Occupational & Speech Therapy At [facility] Current Diagnoses Other specific arthropathies, not elsewhere classified, right shoulder (11/22/21) Strain of other muscles, fascia and tendons at shoulder and upper arm level, left arm, initial encounter (11/22/21) Visit Care Team Role Provider Type Joshua Chin MD Primary Care Provider Physician Specialty: Internal Medicine Address: [address] [place] [address], [address], [place], [address] Email: [email or web address] Juancho Mandujano MD Attending Provider Physician Referring Provider Specialty: Orthopedic Surgery Address: [address] [place] [address], [id number] Email: [email or web address] Plan Of Care PT-OP-T Assessment and Plan Start: 06/18/21 07:58 Freq: Status: Active Protocol: Document 11/22/21 08:15 [facility] (Rec: 11/22/21 09:01 [facility] [id number]) Physical Therapy Assessment Goals compensation Impairment pt compensates through shoulder elevation and trunk lateral flexion with OH Short Term Goal (STG) 09/24 goal met pt has minimal L shoulder hike while performing active shoulder flexion and abduction . STG Duration goal met Predatory Hunter Goal (LTG) pt will show improved scapular and shoulder strength to reach overhead with minimal compensation of shoulder elevation and trunk lateral flexion to R LTG Duration goal met 11/08 strength Impairment significant weakness for flexion and abduction Short Term Goal (STG) pt will show 1 MMT improvements on L shoulder ( flexion and abduction) so she can hold a cup of water with L arm 09/24 partially met pt is able to hold a cup without water with an extended arm 11/20/21: pt able to hold cup water out front with extended LUE. 11/22-can hold cup of water and 1/2 MM grade improvement STG Duration 4 weeks Care Home Goal (LTG) pt will increase in overall shoulder strength so she can participate house chores such as dish washing, sweeping and etc 11/20/21: progressing: able to wash dishes without limitation , to hard to vacuum due to tiring quickly, so performs, they dont need to sweep. Still challenged with supine lifting arm off table and out to side. LTG Duration 8 weeks quickdash Impairment pt scores 40.9 on quick dash Short Term Goal (STG) 09/24 goal met pt scores 25 on quickdash pt will regain mobility and strength by scoring <30 on quickdash STG Duration goal met Predatory Hunter Goal (LTG) pt will regain mobility and strength by scoring <20 on quickdash LTG Duration 8 weeks Assessment Summary Assessment Pt has shown good improvements over last 4 sessions w/ strength and is having greater ease w/functional activities but is still limited from more difficult activities like vacuuming. Physical Therapy Plan Frequency and Duration Frequency of Treatment 1x/Week Duration of Treatment 2 months Plan of Care Start Date 11/22/21 Plan of Care End Date 01/20/22 Therapeutic Interventions Therapeutic Interventions Home Exercise Program,Joint Mobilizations,Manual Therapy, Neuromuscular Re-education, Patient/Caregiver Education, Self-Care/Home Management,Soft Tissue Mobilization,Taping, Therapeutic Activities, Therapeutic Exercises Modalities Cold Pack/Ice Massage,Electric Stimulation,Hot Packs, Infrared Therapy,Ultrasound Next Visit Focus/Plan Next Note Type Treatment Note Next Visit Plan Continue emphasis on supine proximal strength abd, initiating FF off table weakness and ER strength. w/ Manual therapy to decrease tone in supraspinatus, pecs, UT muscles and increase scapular depression on L shld. Plan of Care Dates Plan of Care Start Date 11/22/21 Plan of Care End Date 01/20/22 Electronically Signed by: Tracey Cedeno, PT 11/22/21 0902 Please Sign and Return: I have reviewed this Plan of Care and certify that the skilled therapy services above are required to meet the patient?s needs. Physician Signature Date Printed Name and Credentials Clinical Instructor Signature Printed Name and Credentials
--- NOTE | 2021-11-26 17:33 | PT.OTN ---
Current Diagnoses Other specific arthropathies, not elsewhere classified, right shoulder (11/26/21) Strain of other muscles, fascia and tendons at shoulder and upper arm level, left arm, initial encounter (11/26/21) Physical Therapy Treatment Note PT-OP-A Visit Information Start: 06/18/21 07:58 Freq: Status: Active Protocol: Document 11/26/21 16:52 [facility] (Rec: 11/26/21 17:30 [facility] [id number]) Out-Patient Physical Therapy Visit Information Visit Information Visit Type Treatment Note Visit Note 12/06 Visit Start Time 16:50 Visit Stop Time 17:30 Total Visit Minutes 40 Number of ENVIRONMENTAL ENGINEERING AIDE Visits 0 PT-OP-B Current Condition Start: 06/18/21 07:58 Freq: Status: Active Protocol: Document 06/18/21 10:01 (Rec: 06/18/21 10:28 [email or web address]) Current Condition History of Current Condition Onset Date 04/04/21 Current Complaints L shoulder pain, difficulty lifting her arm History of Current Condition Serenity is a 75yo female here for her L shoulder pain and difficulty lifting her arm up after her recent fall on out of [employer] parking lot. Pt fell on her L side and L side of the face. She has been experiencing pain at superior lateral aspect of the L shoulder. Her major limitation is shoulder flexion and abduction and she is unable to hold any weighted object. She states she has been getting better and able to regain most AROM but with pain. She has no pain at rest and also denies any night pain, radiating pain, tingling and numbness. She has been using OH brianna and bicep curls and AROM exercise at home. Prior Treatments and Tests X-ray at L shoulder = negative pt had a course of PT here at [facility] for her R hip and gait. 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 Reports she isn't walking very well and just feels sore all over. Denies any other symptoms of potential sickness. Unsure why but does note she did up her reps on Sat when working out. Was sore some yesterday so didn't do any exericses Patient Reported Progress Worse PT-OP-E Functional Tests Start: 06/18/21 07:58 Freq: Status: Active Protocol: Document 06/18/21 10:01 (Rec: 06/18/21 10:28 [email or web address]) Functional Tests Apley's Scratch Test Action 2- Left T2 Action 2- Right T3 Action 3- Left T4 Action 3- Right T6 PT-OP-F Manual Assessment Start: 06/18/21 07:58 Freq: Status: Active Protocol: Document 06/18/21 10:01 (Rec: 06/18/21 10:28 [email or web address]) Manual Assessments Soft Tissue Assessment Soft Tissue Mobility Assessment tenderness with pressure at supraspinatus and middle deltoid PT-OP-K Range of Motion Start: 06/18/21 07:58 Freq: Status: Active Protocol: Document 11/08/21 13:00 [facility] (Rec: 11/08/21 13:49 [facility] [id number]) Shoulder Goniometric Range of Motion Shoulder Right Active Shoulder ROM WFL Yes Testing Position Standing Left Active Shoulder ROM WFL No Testing Position Sitting PT-OP-L Special Tests Start: 06/18/21 07:58 Freq: Status: Active Protocol: Document 06/18/21 10:01 (Rec: 06/18/21 10:28 [email or web address]) Special Tests Shoulder Special Tests Drop Arm Rotator Cuff Test Results -ve Comments significant weakness noted Demarcorgason's Biceps Test Results -ve painful arc Test Results +VE L Comments pain Speed's Biceps Test Results -ve [place] Test Test Results +VE Comments no clicking, significant weakness noted Samayoa Jay Impingement Test Results -ve Empty Can Test Results +VE L Comments significant weakness noted PT-OP-M Strength Start: 06/18/21 07:58 Freq: Status: Active Protocol: Document 11/22/21 08:15 [facility] (Rec: 11/22/21 09:01 [facility] [id number]) Shoulder Strength Shoulder Manual Muscle Testing Right Flexion 4+ Good+ Extension 5 Normal Abduction (C5) 5 Normal Adduction 4+ Good+ External Rotation 4+ Good+ Internal Rotation 5 Normal Left Flexion 4- Good- Extension 5 Normal Abduction (C5) 4- Good- Adduction 5 Normal External Rotation 3+ Fair+ Internal Rotation 5 Normal Comments pain with resisted motion PT-OP-Q Treatments Start: 06/18/21 07:58 Freq: Status: Active Protocol: Document 11/26/21 16:52 [facility] (Rec: 11/26/21 17:30 [facility] [id number]) Cardio Equipment Upper Body Ergometer (UBE) Duration (Minutes) 4 Seat Position 10 Height 4 Other fwd/back Therapeutic Exercises Supine Exercises FF Side left Resistance AROM Reps/Minutes 5 Comments stopped d/t pain Abduction Supine Exercise Name cues for palm up (windshield wiper/snow reji) Side bilateral Resistance bodyweight AROM Reps/Minutes 8 supine ER Supine Exercise Name 1.90/90 ER/IR 2. IR/ER at side Side left Reps/Minutes 15 ea Comments cued for painfree range Sidelying Exercises shoulder ER Side left Resistance AROM Equipment Used towel at side Reps/Minutes 8 Comments stopped d/t pain shoulder abd Side left Reps/Minutes 2x attempt but unable hor abd Sidelying Exercise Name open book motion (HEP) Side left Reps/Minutes 20 Comments cued slow pacing for good control Sitting Exercises brianna Sitting Exercise Name flexion, abd Side bilateral Reps/Minutes 15 ea Manual Therapy Treatment Soft Tissue Mobilization UT/LS Body Location L Mobilization Type Rolling,Strumming,Sustained Pressure Intensity/Depth Moderate Body Position Sidelying Comments w/passive scap movement pecs Body Location L pec and bicep Mobilization Type Cross-Friction,Oscillations, Strumming,Sustained Pressure Intensity/Depth Moderate Body Position Sidelying Comments w/ER/IR supraspinatus tendon Body Location tendon and muscle Mobilization Type Cross-Friction,Myofascial Release,Oscillations,Sustained Pressure,Trigger Point Release Intensity/Depth Moderate Body Position Sidelying Comments w/ER passive movement Joint Mobilizations GHJ Direction distraction, inf, post Grade II PT-OP-R Modalities Start: 06/18/21 07:58 Freq: Status: Active Protocol: Document 10/03/21 09:04 [facility] (Rec: 10/03/21 09:26 [facility] [id number]) Hot Pack/Cold Pack Treatment Heat Location L shld Patient Position Sidelying Treatment Duration (minutes) 10 Patient Tolerance Good PT-OP-T Assessment and Plan Start: 06/18/21 07:58 Freq: Status: Active Protocol: Document 11/26/21 16:52 [facility] (Rec: 11/26/21 17:30 [facility] [id number]) Physical Therapy Assessment Goals compensation Impairment pt compensates through shoulder elevation and trunk lateral flexion with OH Short Term Goal (STG) 09/24 goal met pt has minimal L shoulder hike while performing active shoulder flexion and abduction . STG Duration goal met Chief Engineering Division Goal (LTG) pt will show improved scapular and shoulder strength to reach overhead with minimal compensation of shoulder elevation and trunk lateral flexion to R LTG Duration goal met 11/08 strength Impairment significant weakness for flexion and abduction Short Term Goal (STG) pt will show 1 MMT improvements on L shoulder ( flexion and abduction) so she can hold a cup of water with L arm 09/24 partially met pt is able to hold a cup without water with an extended arm 11/20/21: pt able to hold cup water out front with extended LUE. 11/22-can hold cup of water and 1/2 MM grade improvement STG Duration 4 weeks Senior Living Goal (LTG) pt will increase in overall shoulder strength so she can participate house chores such as dish washing, sweeping and etc 11/20/21: progressing: able to wash dishes without limitation , to hard to vacuum due to tiring quickly, so performs, they dont need to sweep. Still challenged with supine lifting arm off table and out to side. LTG Duration 8 weeks quickdash Impairment pt scores 40.9 on quick dash Short Term Goal (STG) 09/24 goal met pt scores 25 on quickdash pt will regain mobility and strength by scoring <30 on quickdash STG Duration goal met Chief Engineering Division Goal (LTG) pt will regain mobility and strength by scoring <20 on quickdash LTG Duration 8 weeks Assessment Summary Assessment Pt was significantly limited w /ROM and exercises today d/t pain. She was able to do some supine and s/l exercises but shoulder was more sore possibly from overdoing w/ exercises on Sat. Physical Therapy Plan Frequency and Duration Frequency of Treatment 1x/Week Duration of Treatment 2 months Plan of Care Start Date 11/22/21 Plan of Care End Date 01/20/22 Next Visit Focus/Plan Next Note Type Treatment Note Next Visit Plan cont to work shoulder strength for fwd reach & overhead stability/ability to reach to side
--- NOTE | 2021-12-06 10:31 | PT.OTN ---
Current Diagnoses Other specific arthropathies, not elsewhere classified, right shoulder (12/06/21) Strain of other muscles, fascia and tendons at shoulder and upper arm level, left arm, initial encounter (12/06/21) Physical Therapy Treatment Note PT-OP-A Visit Information Start: 06/18/21 07:58 Freq: Status: Active Protocol: Document 12/06/21 09:51 [facility] (Rec: 12/06/21 10:31 [facility] [id number]) Out-Patient Physical Therapy Visit Information Visit Information Visit Type Treatment Note Visit Note 01/03 Visit Start Time 09:49 Visit Stop Time 10:29 Total Visit Minutes 40 Visit Number 25 Number of FORM SETTER STEEL PAN FORMS Visits 0 PT-OP-B Current Condition Start: 06/18/21 07:58 Freq: Status: Active Protocol: Document 06/18/21 10:01 (Rec: 06/18/21 10:28 [email or web address]) Current Condition History of Current Condition Onset Date 04/04/21 Current Complaints L shoulder pain, difficulty lifting her arm History of Current Condition Serenity is a 75yo female here for her L shoulder pain and difficulty lifting her arm up after her recent fall on out of [employer] parking lot. Pt fell on her L side and L side of the face. She has been experiencing pain at superior lateral aspect of the L shoulder. Her major limitation is shoulder flexion and abduction and she is unable to hold any weighted object. She states she has been getting better and able to regain most AROM but with pain. She has no pain at rest and also denies any night pain, radiating pain, tingling and numbness. She has been using OH brianna and bicep curls and AROM exercise at home. Prior Treatments and Tests X-ray at L shoulder = negative pt had a course of PT here at [facility] for her R hip and gait. 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) PT-OP-C Subjective Start: 06/18/21 07:58 Freq: Status: Active Protocol: Document 12/06/21 09:51 [facility] (Rec: 12/06/21 10:31 [facility] [id number]) OP-PT Subjective Patient Comments Patient Comments Pt reports she still has difficulty with flex and abd ROM when on back. She has difficulty reaching for things when laying down to bring them to her. PT-OP-E Functional Tests Start: 06/18/21 07:58 Freq: Status: Active Protocol: Document 06/18/21 10:01 (Rec: 06/18/21 10:28 [email or web address]) Functional Tests Apley's Scratch Test Action 2- Left T2 Action 2- Right T3 Action 3- Left T4 Action 3- Right T6 PT-OP-F Manual Assessment Start: 06/18/21 07:58 Freq: Status: Active Protocol: Document 06/18/21 10:01 (Rec: 06/18/21 10:28 [email or web address]) Manual Assessments Soft Tissue Assessment Soft Tissue Mobility Assessment tenderness with pressure at supraspinatus and middle deltoid PT-OP-K Range of Motion Start: 06/18/21 07:58 Freq: Status: Active Protocol: Document 11/08/21 13:00 [facility] (Rec: 11/08/21 13:49 [facility] [id number]) Shoulder Goniometric Range of Motion Shoulder Right Active Shoulder ROM WFL Yes Testing Position Standing Left Active Shoulder ROM WFL No Testing Position Sitting PT-OP-L Special Tests Start: 06/18/21 07:58 Freq: Status: Active Protocol: Document 06/18/21 10:01 (Rec: 06/18/21 10:28 [email or web address]) Special Tests Shoulder Special Tests Drop Arm Rotator Cuff Test Results -ve Comments significant weakness noted Demarcoranason's Biceps Test Results -ve painful arc Test Results +VE L Comments pain Speed's Biceps Test Results -ve [place] Test Test Results +VE Comments no clicking, significant weakness noted Samayoa Jay Impingement Test Results -ve Empty Can Test Results +VE L Comments significant weakness noted PT-OP-M Strength Start: 06/18/21 07:58 Freq: Status: Active Protocol: Document 11/22/21 08:15 [facility] (Rec: 11/22/21 09:01 [facility] [id number]) Shoulder Strength Shoulder Manual Muscle Testing Right Flexion 4+ Good+ Extension 5 Normal Abduction (C5) 5 Normal Adduction 4+ Good+ External Rotation 4+ Good+ Internal Rotation 5 Normal Left Flexion 4- Good- Extension 5 Normal Abduction (C5) 4- Good- Adduction 5 Normal External Rotation 3+ Fair+ Internal Rotation 5 Normal Comments pain with resisted motion PT-OP-Q Treatments Start: 06/18/21 07:58 Freq: Status: Active Protocol: Document 12/06/21 09:51 [facility] (Rec: 12/06/21 10:31 [facility] [id number]) Cardio Equipment Upper Body Ergometer (UBE) Duration (Minutes) 4 Seat Position 10 Height 4 Other fwd/back Therapeutic Exercises Supine Exercises FF Supine Exercise Name chest press w/bar Side left Resistance AAROM Reps/Minutes 6, 10 Abduction Supine Exercise Name did thumbs up to 90 deg to work on ability to reach Side bilateral Resistance bodyweight AROM Reps/Minutes 4, 6 Standing Exercises abd Side left Equipment Used L1 Reps/Minutes 2x6 Comments to 100 deg, palm fwd flex Side left Equipment Used L1 Reps/Minutes 15 Comments to 120 deg D2 flexion Standing Exercise Name did 2-3 w/1lb then 5reps w/o wt to finish sets Side left Reps/Minutes 8, 6 Comments cued level shlds sword held high forward punch Side left Resistance TB #2 Reps/Minutes 15 Comments cued level shlds Manual Therapy Treatment Soft Tissue Mobilization UT/LS Body Location L Mobilization Type Rolling,Strumming,Sustained Pressure Intensity/Depth Moderate Body Position Sidelying Comments w/passive scap movement pecs Body Location L pec and bicep Mobilization Type Cross-Friction,Oscillations, Strumming,Sustained Pressure Intensity/Depth Moderate Body Position Sidelying Comments w/ER/IR PT-OP-R Modalities Start: 06/18/21 07:58 Freq: Status: Active Protocol: Document 10/03/21 09:04 JG (Rec: 10/03/21 09:26 JG [id number]) Hot Pack/Cold Pack Treatment Heat Location L shld Patient Position Sidelying Treatment Duration (minutes) 10 Patient Tolerance Good PT-OP-T Assessment and Plan Start: 06/18/21 07:58 Freq: Status: Active Protocol: Document 12/06/21 09:51 [facility] (Rec: 12/06/21 10:31 [facility] [id number]) Physical Therapy Assessment Goals compensation Impairment pt compensates through shoulder elevation and trunk lateral flexion with OH Short Term Goal (STG) 09/24 goal met pt has minimal L shoulder hike while performing active shoulder flexion and abduction . STG Duration goal met Speech And Drama Teacher Goal (LTG) pt will show improved scapular and shoulder strength to reach overhead with minimal compensation of shoulder elevation and trunk lateral flexion to R LTG Duration goal met 11/08 strength Impairment significant weakness for flexion and abduction Short Term Goal (STG) pt will show 1 MMT improvements on L shoulder ( flexion and abduction) so she can hold a cup of water with L arm 09/24 partially met pt is able to hold a cup without water with an extended arm 11/20/21: pt able to hold cup water out front with extended LUE. 11/22-can hold cup of water and 1/2 MM grade improvement STG Duration 4 weeks Care Home Goal (LTG) pt will increase in overall shoulder strength so she can participate house chores such as dish washing, sweeping and etc 11/20/21: progressing: able to wash dishes without limitation , to hard to vacuum due to tiring quickly, so performs, they dont need to sweep. Still challenged with supine lifting arm off table and out to side. LTG Duration 8 weeks quickdash Impairment pt scores 40.9 on quick dash Short Term Goal (STG) 09/24 goal met pt scores 25 on quickdash pt will regain mobility and strength by scoring <30 on quickdash STG Duration goal met Speech And Drama Teacher Goal (LTG) pt will regain mobility and strength by scoring <20 on quickdash LTG Duration 8 weeks Assessment Summary Assessment Pt did better with exercises today and tolerated some inc in resistance and some more difficult/specific to the ways movement is difficult for her . She does require less reps w /sets with these exercises. Physical Therapy Plan Frequency and Duration Frequency of Treatment 1x/Week Duration of Treatment 2 months Plan of Care Start Date 11/22/21 Plan of Care End Date 01/20/22 Next Visit Focus/Plan Next Note Type Treatment Note Next Visit Plan work on ability to reach out to side w/resistance
--- NOTE | 2021-12-11 09:00 | PT.OTN ---
Current Diagnoses Other specific arthropathies, not elsewhere classified, right shoulder (12/11/21) Strain of other muscles, fascia and tendons at shoulder and upper arm level, left arm, initial encounter (12/11/21) Physical Therapy Treatment Note PT-OP-A Visit Information Start: 06/18/21 07:58 Freq: Status: Active Protocol: Document 12/11/21 08:17 SP (Rec: 12/11/21 09:02 SP [id number]) Out-Patient Physical Therapy Visit Information Visit Information Visit Type Treatment Note Visit Note 02/03 Visit Start Time 08:17 Visit Stop Time 09:00 Total Visit Minutes 43 Visit Number 26 Number of DESK REPORTER Visits 1 Evaluation Information Evaluation Date 06/18/21 Precautions Precautions 7 falls in last year depression psychological disorder (didnt specific) PT-OP-B Current Condition Start: 06/18/21 07:58 Freq: Status: Active Protocol: Document 06/18/21 10:01 HH (Rec: 06/18/21 10:28 HH [email or web address]) Current Condition History of Current Condition Onset Date 04/04/21 Current Complaints L shoulder pain, difficulty lifting her arm History of Current Condition Serenity is a 75yo female here for her L shoulder pain and difficulty lifting her arm up after her recent fall on out of [employer] parking lot. Pt fell on her L side and L side of the face. She has been experiencing pain at superior lateral aspect of the L shoulder. Her major limitation is shoulder flexion and abduction and she is unable to hold any weighted object. She states she has been getting better and able to regain most AROM but with pain. She has no pain at rest and also denies any night pain, radiating pain, tingling and numbness. She has been using OH brianna and bicep curls and AROM exercise at home. Prior Treatments and Tests X-ray at L shoulder = negative pt had a course of PT here at [facility] for her R hip and gait. 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 PT-OP-E Functional Tests Start: 06/18/21 07:58 Freq: Status: Active Protocol: Document 06/18/21 10:01 (Rec: 06/18/21 10:28 [email or web address]) Functional Tests Apley's Scratch Test Action 2- Left T2 Action 2- Right T3 Action 3- Left T4 Action 3- Right T6 PT-OP-F Manual Assessment Start: 06/18/21 07:58 Freq: Status: Active Protocol: Document 06/18/21 10:01 (Rec: 06/18/21 10:28 [email or web address]) Manual Assessments Soft Tissue Assessment Soft Tissue Mobility Assessment tenderness with pressure at supraspinatus and middle deltoid PT-OP-K Range of Motion Start: 06/18/21 07:58 Freq: Status: Active Protocol: Document 11/08/21 13:00 [facility] (Rec: 11/08/21 13:49 [facility] [id number]) Shoulder Goniometric Range of Motion Shoulder Right Active Shoulder ROM WFL Yes Testing Position Standing Left Active Shoulder ROM WFL No Testing Position Sitting PT-OP-L Special Tests Start: 06/18/21 07:58 Freq: Status: Active Protocol: Document 06/18/21 10:01 (Rec: 06/18/21 10:28 [email or web address]) Special Tests Shoulder Special Tests Drop Arm Rotator Cuff Test Results -ve Comments significant weakness noted Yergason's Biceps Test Results -ve painful arc Test Results +VE L Comments pain Speed's Biceps Test Results -ve [place]rall Test Test Results +VE Comments no clicking, significant weakness noted Samayoa Jay Impingement Test Results -ve Empty Can Test Results +VE L Comments significant weakness noted PT-OP-M Strength Start: 06/18/21 07:58 Freq: Status: Active Protocol: Document 11/22/21 08:15 [facility] (Rec: 11/22/21 09:01 [facility] [id number]) Shoulder Strength Shoulder Manual Muscle Testing Right Flexion 4+ Good+ Extension 5 Normal Abduction (C5) 5 Normal Adduction 4+ Good+ External Rotation 4+ Good+ Internal Rotation 5 Normal Left Flexion 4- Good- Extension 5 Normal Abduction (C5) 4- Good- Adduction 5 Normal External Rotation 3+ Fair+ Internal Rotation 5 Normal Comments pain with resisted motion PT-OP-Q Treatments Start: 06/18/21 07:58 Freq: Status: Active Protocol: Document 12/11/21 08:17 SP (Rec: 12/11/21 09:02 SP [id number]) Cardio Equipment Upper Body Ergometer (UBE) Duration (Minutes) 6 RPM 60 Seat Position 10 Height 3 Other 1 min fwd/back Therapeutic Exercises Supine Exercises FF Supine Exercise Name chest press w/bar Side left Resistance AAROM Reps/Minutes 6, 10 Comments FF (initial RUE assist of table 10-170 deg) Abduction Supine Exercise Name elbow straight Side left Resistance AROM glide on mat table Reps/Minutes x10 (131*), x10 (132*) Comments cued palm toward face Standing Exercises FF lift off wall Standing Exercise Name added toHEP Side bilateral Equipment Used facing wall Reps/Minutes 5, 3 reps Comments cued tall posture, no low back arch,elongate, good LT fac snow reji Standing Exercise Name added to HEP Side bilateral Resistance AROM Reps/Minutes 3, 2 ,1 reps Comments cued LS and head toward wall best can up to 90 deg ABD abd Side left Resistance L1 TB unable>AROM Reps/Minutes x6 reps, 8 reps up 115 deg average Comments to 100 deg at side palm fwd then compensated into scaption 120 deg flex Side left Resistance L1 unable> AROM x10 Equipment Used front mirror Reps/Minutes 10 Comments to 100 deg last rep PT-OP-R Modalities Start: 06/18/21 07:58 Freq: Status: Active Protocol: Document 10/03/21 09:04 JG (Rec: 10/03/21 09:26 JG [id number]) Hot Pack/Cold Pack Treatment Heat Location L shld Patient Position Sidelying Treatment Duration (minutes) 10 Patient Tolerance Good PT-OP-T Assessment and Plan Start: 06/18/21 07:58 Freq: Status: Active Protocol: Document 12/11/21 08:17 SP (Rec: 12/11/21 09:02 SP [id number]) Physical Therapy Assessment Goals compensation Impairment pt compensates through shoulder elevation and trunk lateral flexion with OH Short Term Goal (STG) 09/24 goal met pt has minimal L shoulder hike while performing active shoulder flexion and abduction . STG Duration goal met Typing Bookkeeper Goal (LTG) pt will show improved scapular and shoulder strength to reach overhead with minimal compensation of shoulder elevation and trunk lateral flexion to R LTG Duration goal met 11/08 strength Impairment significant weakness for flexion and abduction Short Term Goal (STG) pt will show 1 MMT improvements on L shoulder ( flexion and abduction) so she can hold a cup of water with L arm 09/24 partially met pt is able to hold a cup without water with an extended arm 11/20/21: pt able to hold cup water out front with extended LUE. 11/22-can hold cup of water and 1/2 MM grade improvement STG Duration 4 weeks Typing Bookkeeper Goal (LTG) pt will increase in overall shoulder strength so she can participate house chores such as dish washing, sweeping and etc 11/20/21: progressing: able to wash dishes without limitation , to hard to vacuum due to tiring quickly, so performs, they dont need to sweep. Still challenged with supine lifting arm off table and out to side. LTG Duration 8 weeks quickdash Impairment pt scores 40.9 on quick dash Short Term Goal (STG) 09/24 goal met pt scores 25 on quickdash pt will regain mobility and strength by scoring <30 on quickdash STG Duration goal met Fpc Goal (LTG) pt will regain mobility and strength by scoring <20 on quickdash LTG Duration 8 weeks Assessment Summary Assessment Pt improved in L shld abd AROM in supine today up to 132 deg , still unable to lift L arm off table itself. Progressed FF and ABD at wall in PT and added for home against gravity improves self corrections in alignment and effort awareness without UT recruitment. Tires quickly so less reps able to do. Physical Therapy Plan Frequency and Duration Frequency of Treatment 1x/Week Duration of Treatment 2 months Plan of Care Start Date 11/22/21 Plan of Care End Date 01/20/22 Therapeutic Interventions Therapeutic Interventions Home Exercise Program,Joint Mobilizations,Manual Therapy, Neuromuscular Re-education, Patient/Caregiver Education, Self-Care/Home Management,Soft Tissue Mobilization,Taping, Therapeutic Activities, Therapeutic Exercises Modalities Cold Pack/Ice Massage,Electric Stimulation,Hot Packs, Infrared Therapy,Ultrasound Next Visit Focus/Plan Next Note Type Treatment Note Next Visit Plan work on ability to reach out to side w/resistance
--- NOTE | 2021-12-24 10:33 | PT.OTN ---
Current Diagnoses Other specific arthropathies, not elsewhere classified, right shoulder (12/24/21) Strain of other muscles, fascia and tendons at shoulder and upper arm level, left arm, initial encounter (12/24/21) Physical Therapy Treatment Note PT-OP-A Visit Information Start: 06/18/21 07:58 Freq: Status: Active Protocol: Document 12/24/21 10:00 [facility] (Rec: 12/24/21 10:32 [facility] [id number]) Out-Patient Physical Therapy Visit Information Visit Information Visit Type Treatment Note Visit Note 03/05 Visit Start Time 09:51 Visit Stop Time 10:30 Total Visit Minutes 39 Visit Number 27 Number of AUTOMATIC TRIMMING SEWER Visits 0 PT-OP-B Current Condition Start: 06/18/21 07:58 Freq: Status: Active Protocol: Document 06/18/21 10:01 HH (Rec: 06/18/21 10:28 [email or web address]) Current Condition History of Current Condition Onset Date 04/04/21 Current Complaints L shoulder pain, difficulty lifting her arm History of Current Condition Serenity is a 75yo female here for her L shoulder pain and difficulty lifting her arm up after her recent fall on out of [employer] parking lot. Pt fell on her L side and L side of the face. She has been experiencing pain at superior lateral aspect of the L shoulder. Her major limitation is shoulder flexion and abduction and she is unable to hold any weighted object. She states she has been getting better and able to regain most AROM but with pain. She has no pain at rest and also denies any night pain, radiating pain, tingling and numbness. She has been using OH brianna and bicep curls and AROM exercise at home. Prior Treatments and Tests X-ray at L shoulder = negative pt had a course of PT here at [facility] for her R hip and gait. 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 PT-OP-E Functional Tests Start: 06/18/21 07:58 Freq: Status: Active Protocol: Document 06/18/21 10:01 (Rec: 06/18/21 10:28 [email or web address]) Functional Tests Apley's Scratch Test Action 2- Left T2 Action 2- Right T3 Action 3- Left T4 Action 3- Right T6 PT-OP-F Manual Assessment Start: 06/18/21 07:58 Freq: Status: Active Protocol: Document 06/18/21 10:01 (Rec: 06/18/21 10:28 [email or web address]) Manual Assessments Soft Tissue Assessment Soft Tissue Mobility Assessment tenderness with pressure at supraspinatus and middle deltoid PT-OP-K Range of Motion Start: 06/18/21 07:58 Freq: Status: Active Protocol: Document 11/08/21 13:00 [facility] (Rec: 11/08/21 13:49 [facility] [id number]) Shoulder Goniometric Range of Motion Shoulder Right Active Shoulder ROM WFL Yes Testing Position Standing Left Active Shoulder ROM WFL No Testing Position Sitting PT-OP-L Special Tests Start: 06/18/21 07:58 Freq: Status: Active Protocol: Document 06/18/21 10:01 (Rec: 06/18/21 10:28 [email or web address]) Special Tests Shoulder Special Tests Drop Arm Rotator Cuff Test Results -ve Comments significant weakness noted Markus's Biceps Test Results -ve painful arc Test Results +VE L Comments pain Speed's Biceps Test Results -ve [place] Test Test Results +VE Comments no clicking, significant weakness noted Samayoa Jay Impingement Test Results -ve Empty Can Test Results +VE L Comments significant weakness noted PT-OP-M Strength Start: 06/18/21 07:58 Freq: Status: Active Protocol: Document 11/22/21 08:15 [facility] (Rec: 11/22/21 09:01 [facility] [id number]) Shoulder Strength Shoulder Manual Muscle Testing Right Flexion 4+ Good+ Extension 5 Normal Abduction (C5) 5 Normal Adduction 4+ Good+ External Rotation 4+ Good+ Internal Rotation 5 Normal Left Flexion 4- Good- Extension 5 Normal Abduction (C5) 4- Good- Adduction 5 Normal External Rotation 3+ Fair+ Internal Rotation 5 Normal Comments pain with resisted motion PT-OP-Q Treatments Start: 06/18/21 07:58 Freq: Status: Active Protocol: Document 12/24/21 10:00 [facility] (Rec: 12/24/21 10:32 [facility] [id number]) Therapeutic Exercises Supine Exercises FF Supine Exercise Name chest press w/bar Side left Resistance AAROM Reps/Minutes 10 Comments using LUE as much as she can Abduction Supine Exercise Name elbow straight Side left Resistance AROM glide on mat table Reps/Minutes x10(about 130 deg) Comments cued palm toward face Sitting Exercises ER Sitting Exercise Name 90/90 w/elbow on table Side left Equipment Used 0#, 1# Reps/Minutes 1.8 2. 6, 10 Comments changed supine home version to seated Standing Exercises snow reji Standing Exercise Name review HEP Side bilateral Resistance AROM Reps/Minutes 15 Comments cued LS and head toward wall best can up to 90 deg ABD abd Side left Resistance L1 Reps/Minutes 10 Comments to 110 deg at side palm fwd flex Side left Resistance L1 Reps/Minutes 8 Comments to 100 deg Manual Therapy Treatment Soft Tissue Mobilization UT/LS Body Location L Mobilization Type Rolling,Strumming,Sustained Pressure Intensity/Depth Moderate Body Position Sidelying Comments w/passive scap movement pecs Body Location L pec and bicep Mobilization Type Cross-Friction,Oscillations, Strumming,Sustained Pressure Intensity/Depth Moderate Body Position Sidelying Comments w/ER/IR Joint Mobilizations AC Joint gapping L Direction FM Grade II GHJ Direction distraction, inf, post Grade II PT-OP-R Modalities Start: 06/18/21 07:58 Freq: Status: Active Protocol: Document 10/03/21 09:04 JG (Rec: 10/03/21 09:26 JG [id number]) Hot Pack/Cold Pack Treatment Heat Location L shld Patient Position Sidelying Treatment Duration (minutes) 10 Patient Tolerance Good PT-OP-T Assessment and Plan Start: 06/18/21 07:58 Freq: Status: Active Protocol: Document 12/24/21 10:00 [facility] (Rec: 12/24/21 10:32 [facility] [id number]) Physical Therapy Assessment Goals compensation Impairment pt compensates through shoulder elevation and trunk lateral flexion with OH Short Term Goal (STG) 09/24 goal met pt has minimal L shoulder hike while performing active shoulder flexion and abduction . STG Duration goal met H[facility] Goal (LTG) pt will show improved scapular and shoulder strength to reach overhead with minimal compensation of shoulder elevation and trunk lateral flexion to R LTG Duration goal met 11/08 strength Impairment significant weakness for flexion and abduction Short Term Goal (STG) pt will show 1 MMT improvements on L shoulder ( flexion and abduction) so she can hold a cup of water with L arm 09/24 partially met pt is able to hold a cup without water with an extended arm 11/20/21: pt able to hold cup water out front with extended LUE. 11/22-can hold cup of water and 1/2 MM grade improvement STG Duration 4 weeks Halfway Goal (LTG) pt will increase in overall shoulder strength so she can participate house chores such as dish washing, sweeping and etc 11/20/21: progressing: able to wash dishes without limitation , to hard to vacuum due to tiring quickly, so performs, they dont need to sweep. Still challenged with supine lifting arm off table and out to side. LTG Duration 8 weeks quickdash Impairment pt scores 40.9 on quick dash Short Term Goal (STG) 09/24 goal met pt scores 25 on quickdash pt will regain mobility and strength by scoring <30 on quickdash STG Duration goal met Halfway Goal (LTG) pt will regain mobility and strength by scoring <20 on quickdash LTG Duration 8 weeks Assessment Summary Assessment Pt doing well with exercises but does require cues to stop if loses a lot of ROM w/ exercises. Adjusted 90/90 ER from supine to seated as it is a much better challenge. Physical Therapy Plan Frequency and Duration Frequency of Treatment 1x/Week Duration of Treatment 2 months Plan of Care Start Date 11/22/21 Plan of Care End Date 01/20/22 Next Visit Focus/Plan Next Note Type Discharge Summary Next Visit Plan work on ability to reach out to side w/resistance
--- NOTE | 2021-12-31 09:50 | PT.OTN ---
Current Diagnoses Other specific arthropathies, not elsewhere classified, right shoulder (12/31/21) Strain of other muscles, fascia and tendons at shoulder and upper arm level, left arm, initial encounter (12/31/21) Physical Therapy Treatment Note PT-OP-A Visit Information Start: 06/18/21 07:58 Freq: Status: Active Protocol: Document 12/31/21 09:09 [facility] (Rec: 12/31/21 09:50 [facility] [id number]) Out-Patient Physical Therapy Visit Information Visit Information Visit Type Discharge Summary Visit Start Time 09:06 Visit Stop Time 09:45 Total Visit Minutes 39 Visit Number 28 Number of POLICE PATROL OFFICER Visits 0 PT-OP-B Current Condition Start: 06/18/21 07:58 Freq: Status: Active Protocol: Document 06/18/21 10:01 (Rec: 06/18/21 10:28 [email or web address]) Current Condition History of Current Condition Onset Date 04/04/21 Current Complaints L shoulder pain, difficulty lifting her arm History of Current Condition Serenity is a 75yo female here for her L shoulder pain and difficulty lifting her arm up after her recent fall on out of [employer] parking lot. Pt fell on her L side and L side of the face. She has been experiencing pain at superior lateral aspect of the L shoulder. Her major limitation is shoulder flexion and abduction and she is unable to hold any weighted object. She states she has been getting better and able to regain most AROM but with pain. She has no pain at rest and also denies any night pain, radiating pain, tingling and numbness. She has been using OH brianna and bicep curls and AROM exercise at home. Prior Treatments and Tests X-ray at L shoulder = negative pt had a course of PT here at [facility] for her R hip and gait. 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 (Rec: 12/31/21 09:50 [facility] [id number]) OP-PT Subjective Patient Comments Patient Comments Compliane w/exercises Patient Reported Progress Same PT-OP-E Functional Tests Start: 06/18/21 07:58 Freq: Status: Active Protocol: Document 06/18/21 10:01 (Rec: 06/18/21 10:28 [email or web address]) Functional Tests Apley's Scratch Test Action 2- Left T2 Action 2- Right T3 Action 3- Left T4 Action 3- Right T6 PT-OP-F Manual Assessment Start: 06/18/21 07:58 Freq: Status: Active Protocol: Document 06/18/21 10:01 (Rec: 06/18/21 10:28 [email or web address]) Manual Assessments Soft Tissue Assessment Soft Tissue Mobility Assessment tenderness with pressure at supraspinatus and middle deltoid PT-OP-K Range of Motion Start: 06/18/21 07:58 Freq: Status: Active Protocol: Document 12/31/21 09:09 [facility] (Rec: 12/31/21 09:50 [facility] [id number]) Shoulder Goniometric Range of Motion Shoulder Left Active Shoulder ROM WFL No Testing Position Sitting Flexion 145 Extension 65 Abduction 143 External Rotation at 90 degrees 63 Abduction External Rotation at 0 degrees Abduction 55 Internal Rotation Behind Back (text) T6 PT-OP-L Special Tests Start: 06/18/21 07:58 Freq: Status: Active Protocol: Document 06/18/21 10:01 (Rec: 06/18/21 10:28 [email or web address]) Special Tests Shoulder Special Tests Drop Arm Rotator Cuff Test Results -ve Comments significant weakness noted Yergason's Biceps Test Results -ve painful arc Test Results +VE L Comments pain Speed's Biceps Test Results -ve [place] Test Test Results +VE Comments no clicking, significant weakness noted Samayoa Jay Impingement Test Results -ve Empty Can Test Results +VE L Comments significant weakness noted PT-OP-M Strength Start: 06/18/21 07:58 Freq: Status: Active Protocol: Document 12/31/21 09:09 [facility] (Rec: 12/31/21 09:50 [facility] [id number]) Shoulder Strength Shoulder Manual Muscle Testing Left Flexion 4- Good- Extension 5 Normal Abduction (C5) 4- Good- External Rotation 3+ Fair+ Internal Rotation 5 Normal Comments pain with resisted motion PT-OP-Q Treatments Start: 06/18/21 07:58 Freq: Status: Active Protocol: Document 12/31/21 09:09 [facility] (Rec: 12/31/21 09:50 [facility] [id number]) Therapeutic Exercises Supine Exercises FF Supine Exercise Name helping w/RUE as needed Side left Resistance AAROM Reps/Minutes 6 Comments using LUE as much as she can Abduction Supine Exercise Name elbow straight Side left Resistance AROM glide on mat table Reps/Minutes x10(about 130 deg) Comments cued palm toward face Sidelying Exercises hor abd Sidelying Exercise Name open book motion (HEP) Side left Reps/Minutes 10 Comments cues full range Standing Exercises FF lift off wall Standing Exercise Name added toHEP Side bilateral Equipment Used facing wall Reps/Minutes 10 Comments cued tall posture, no low back arch,elongate, snow reji Standing Exercise Name review HEP Side bilateral Resistance AROM Reps/Minutes 15 Comments can get up to 90 deg abd Standing Exercise Name slight compensation w/arm going slightly fwd Side left Resistance L1 Reps/Minutes 6 Comments to 110 deg at side palm fwd flex Side left Resistance L1 Reps/Minutes 10 Comments to 130 deg D2 flexion Standing Exercise Name attempted 1lb but unable Side left Reps/Minutes 8 Comments cued level shlds sword held high ER Standing Exercise Name IR to neutral position Side left Resistance Lvl 1 band Reps/Minutes x15 L Comments cued tall posture, scap back neutral, CS back neutral cross body Standing Exercise Name D1 flex Resistance L1 Reps/Minutes 15 IR Standing Exercise Name HEP reviewed Side left Resistance TB #2 Reps/Minutes 15 Comments cued elbow at side ext Standing Exercise Name double arm Side bilateral Equipment Used L2 Reps/Minutes 15 Manual Therapy Treatment Soft Tissue Mobilization pecs Body Location L pec Mobilization Type Cross-Friction,Oscillations, Strumming,Sustained Pressure Intensity/Depth Moderate Body Position Sidelying Comments w/ER/IR Self-Care/Home Management Treatment Education Patient Education Home Exercise Program Other Education went through exercises w/pt verbally and discussed which ones to cont and discussed which ones are still difficult . Discussed and organized sheet for 1 day of strength and 1 day of ROM exercises so she alternates days PT-OP-R Modalities Start: 06/18/21 07:58 Freq: Status: Active Protocol: Document 10/03/21 09:04 [facility] (Rec: 10/03/21 09:26 [facility] [id number]) Hot Pack/Cold Pack Treatment Heat Location L shld Patient Position Sidelying Treatment Duration (minutes) 10 Patient Tolerance Good PT-OP-T Assessment and Plan Start: 06/18/21 07:58 Freq: Status: Active Protocol: Document 12/31/21 09:09 [facility] (Rec: 12/31/21 09:50 [facility] [id number]) Physical Therapy Assessment Goals compensation Impairment pt compensates through shoulder elevation and trunk lateral flexion with OH Short Term Goal (STG) 09/24 goal met pt has minimal L shoulder hike while performing active shoulder flexion and abduction . STG Duration goal met [facility]fp Goal (LTG) pt will show improved scapular and shoulder strength to reach overhead with minimal compensation of shoulder elevation and trunk lateral flexion to R LTG Duration goal met 11/08 strength Impairment significant weakness for flexion and abduction Short Term Goal (STG) pt will show 1 MMT improvements on L shoulder ( flexion and abduction) so she can hold a cup of water with L arm 09/24 partially met pt is able to hold a cup without water with an extended arm 11/20/21: pt able to hold cup water out front with extended LUE. 11/22-can hold cup of water and 1/2 MM grade improvement STG Duration 4 weeks Mcfp Goal (LTG) pt will increase in overall shoulder strength so she can participate house chores such as dish washing, sweeping and etc 11/20/21: progressing: able to wash dishes without limitation , to hard to vacuum due to tiring quickly, so performs, they dont need to sweep. Still challenged with supine lifting arm off table and out to side. 12/31-no change LTG Duration 8 weeks quickdash Impairment pt scores 40.9 on quick dash Short Term Goal (STG) 09/24 goal met pt scores 25 on quickdash pt will regain mobility and strength by scoring <30 on quickdash STG Duration goal met [employer] Goal (LTG) pt will regain mobility and strength by scoring <20 on quickdash LTG Duration 31 today plateau Assessment Summary Assessment Pt has plateued with therapy at this time and is indep w/ HEP focusing on areas seh still has difficulty. She was set up w/2 workouts (one for AROM and one for strength ) to cont. DC at thist reema Physical Therapy Plan Discharge Physical Therapy Discharge Reasons Plateau in Progress
== END 2022-01-02 14:16 ==
LOC: PHYS 09:00
PROVIDERS: PCP Internal Medicine; Referring Provider Orthopaedic Surgery; Visit Provider Orthopaedic Surgery
DX: M12.811 Other specific arthropathies, not elsewhere classified, right shoulder (principal); S46.812A Strain of other muscles, fascia and tendons at shoulder and upper arm level, left arm, initial encounter
CPT/HCPCS: 97110; 97140; 97161; 97535

== ENCOUNTER → 2022-01-09 07:03 | Outpatient (CLI) | payer MEDICARE, OTHER, SELFPAY ==
[2022-01-09 08:23] LABS: Alanine Aminotransferase 11 IU/L (<35); Albumin 4.5 g/dL (3.5-5.0); Albumin Globulin Ratio 2.4 (1.0-2.8); Alkaline Phosphatase 80 U/L (38-126); Aspartate Aminotransferase 25 IU/L (14-36); BUN Creatinine Ratio 21.3 (6-22); Bilirubin Total 0.5 mg/dL (0.2-1.3); Blood Urea Nitrogen 23 mg/dL (7-17); Calcium 9.7 mg/dL (8.4-10.2); Carbon Dioxide 27 mmol/L (22-32); Chloride 101 mmol/L (98-107); Estimated Glomerular Filt Rate 49.5 mL/min (>60); Globulin 1.9 g/dL (1.7-4.1); Glucose 96 mg/dL (80-110); HEMOLYSIS < 15 (0-50); Potassium 4.6 mmol/L (3.4-5.1); Sodium 135 mmol/L (137-145); Total Protein 6.4 g/dL (6.3-8.2)
== END ==
PROVIDERS: PCP Internal Medicine; Referring Provider Specialist; Visit Provider Specialist
DX: I49.3 Ventricular premature depolarization (principal); B33.24 Viral cardiomyopathy; R00.2 Palpitations
CPT/HCPCS: 36415; 80053; 83735

== ENCOUNTER 2022-02-13 17:02 | Emergency (ER) | payer MEDICARE, OTHER, SELFPAY ==
[2022-02-13 17:05] VITALS: BP 186/84; PULSE 76; RESP 20; O2SAT 99; BMI 22.3
--- NOTE | 2022-02-13 17:10 | DI.CT.S_ITS ---
PROCEDURE: CT HEAD/BRAIN WO CON INDICATIONS: fall TECHNIQUE: Noncontrast 4.5 mm thick angled axial sections acquired from the foramen magnum to the vertex, with coronal and sagittal reformats. For radiation dose reduction, the following was used: automated exposure control, adjustment of mA and/or kV according to patient size. COMPARISON: [facility], CT, CT HEAD/BRAIN WO CON, 12/13/2020, 17:38. FINDINGS: Image quality: Excellent. CSF spaces: Basal cisterns are patent. No extra-axial fluid collections. The ventricles are symmetric in size and shape. Brain: No intracranial bleeds or masses. There is cerebral volume loss for age, with resultant ventricular and sulcal prominence. There are periventricular and deep white matter chronic small vessel ischemic changes. There is intracranial internal carotid artery atherosclerosis. Skull and face: Slight leftward displaced right and left nasal bone fractures. There may be a subtle nondisplaced fracture of the anterior nasal septum. There is a 1.2 cm thick hematoma overlying the right frontal region. The underlying calvarium and orbital rim appear intact. Sinuses: Visualized sinuses and mastoids are clear. IMPRESSION: 1. No acute intracranial trauma. 2. Age-appropriate exam. 3. Mildly displaced bilateral nasal bone fractures and possible nondisplaced nasal septal fracture. 4. Soft tissue hematoma overlying the right superior orbit without underlying fracture. Dictated by: Alexandrea Garcia M.D. on 02/13/2022 at 18:00 Approved by: Alexandrea Garcia M.D. on 02/13/2022 at 18:03
--- NOTE | 2022-02-13 17:13 | DI.RAD.S_ITS ---
PROCEDURE: XR HAND LT MIN 3V INDICATIONS: fall TECHNIQUE: Three views of the hand(s) acquired. COMPARISON: None. FINDINGS: Bones: Decreased mineralization. Laterally displaced and apex dorsal angulated fracture of the 5th metacarpal neck. The MCP joint appears to remain intact. No other acute fractures. Incidental note made of mild scapholunate joint space widening. There is joint space loss at the 3rd MCP joint without productive change. Soft tissues: There is a calcification of uncertain chronicity or importance projecting ventrally in the soft tissues at the 2nd metacarpal base. IMPRESSION: 1. Mildly displaced and slightly angulated 5th metacarpal neck fracture. 2. Changes of possible rheumatoid arthritis or connective tissue disease. 3. Mild scapholunate interval widening may indicate remote wrist injury. Dictated by: Alexandrea Garcia M.D. on 02/13/2022 at 17:58 Approved by: Alexandrea Garcia M.D. on 02/13/2022 at 18:00
--- NOTE | 2022-02-13 18:56 | ED.FALL ---
HPI - Fall General Chief Complaint: Fall Stated Complaint: head, facial injuries s/p fall Time Seen by Provider: 02/13/22 18:04 Source: patient Mode of arrival: Ambulatory History of Present Illness HPI Narrative: 76-year-old female who is here for evaluation of injuries that she sustained after tripping and falling at home. She did hit her head on the ground. There was no loss of consciousness. Not on blood thinners. Sustained a nose bleed which is since stop bleeding. Denies any dental injuries. No vision changes. No headache. No neck pain. Reports pain in her left hand. No hip or knee discomfort. Sustained an abrasion above her right eye. Related Data Home Medications Medication Instructions Recorded Confirmed CALCIUM CARBONATE (#CALCIUM) 600 mg PO BID #0 12/26/11 01/31/22 acetaminophen 500 mg tablet 500 mg PO Q4HP PRN #0 06/24/17 01/31/22 (Tylenol Extra Strength) cholecalciferol (vitamin D3) 125 5,000 unit PO QDAY #0 06/24/17 01/31/22 mcg (5,000 unit) capsule metoprolol succinate 25 mg 12.5 mg PO QDAY #0 06/24/17 01/31/22 tablet,extended release 24 hr (Toprol XL) ibuprofen 200 mg capsule 200 mg PO Q4-6H PRN 12/11/18 01/31/22 ketoconazole 2 % shampoo 1 applictn TOP 2XW 12/11/18 01/31/22 ferrous sulfate 325 mg (65 mg 325 mg PO DAILY tab 02/22/19 01/31/22 iron) tablet Previous Rx's Medication Instructions Recorded oxybutynin chloride 5 mg 5 mg PO DAILY #90 tab 05/02/21 tablet,extended release 24 hr aripiprazole 5 mg tablet See Rx Instructions .ROUTE 10/04/21 .COMPLEX #90 tab lamotrigine 200 mg tablet 200 mg PO DAILY #90 tab 12/31/21 trazodone 100 mg tablet 150 mg PO BEDTIME #135 tab 12/31/21 fluticasone propionate 50 2 spray NASAL BEDTIME #16 gram 02/12/22 mcg/actuation nasal spray,suspension Allergies Allergy/AdvReac Type Severity Reaction Status Date / Time bacitracin Allergy Mild RASH Verified 01/31/22 08:29 [From Neosporin ([id number])] neomycin Allergy Mild RASH Verified 01/31/22 08:29 [From Neosporin ([id number])] polymyxin B Allergy Mild RASH Verified 01/31/22 08:29 [From Neosporin ([id number])] Sulfa (Sulfonamide Allergy Mild HIVES Verified 01/31/22 08:29 Antibiotics) Review of Systems Constitutional Constitutional: Reports as per HPI and Reports system reviewed and no additional complaints, except as documented Cardiovascular Cardiovascular: Reports system reviewed and no additional complaints, except as documented Respiratory Respiratory: Reports system reviewed and no additional complaints, except as documented Gastrointestinal Gastrointestinal: Reports system reviewed and no additional complaints, except as documented Musculoskeletal Musculoskeletal: Reports system reviewed and no additional complaints, except as documented Integumentary/Breasts Skin/Breast: Reports system reviewed and no additional complaints, except as documented Neurologic Neurologic: Reports system reviewed and no additional complaints, except as documented Hematologic/Lymphatic On Anticoagulants: No Patient History Medical History Cancer Cataracts, bilateral (~2015) Chicken pox Chronic renal failure, stage 3 (moderate) Constipation Cyclothymia Depression Fecal incontinence (~2014) Fractures (~2004) Genital warts (~1984) Heart palpitations History of urinary incontinence (~2014) Incomplete left bundle branch block (LBBB) Lumbar spinal stenosis Measles Mixed urge and stress incontinence Osteoporosis, unspecified Overactive bladder Sciatica Urge incontinence Urinary frequency UTI (urinary tract infection) Viral cardiomyopathy Surgical History Anesthesia H/O hernia repair History of vaginal hysterectomy (~1996) Melanoma (~1981) Family History Father Hypertension Heart disease Mother Cancer Diabetes mellitus Hyperlipidemia Sister Cervical cancer Grandfather No problems noted. Grandmother Hypertension Grandmother Hypertension Social History Smoking Status: Never smoker Smoking Status: Never smoker alcohol intake frequency: 0-2 drinks per day Alcohol type: wine Substance Use Type: does not use Exam Initial Vital Signs Initial Vital Signs: Vital Signs Pulse Rate 76 02/13/22 17:05 Respiratory Rate 20 02/13/22 17:05 Blood Pressure 186/84 H 02/13/22 17:05 Pulse Oximetry 99 02/13/22 17:05 Const General: cooperative, comfortable and well developed HENPA Head: contusion Nose: No epistaxis and No nasal discharge Face and sinus: ecchymosis and no maxillary instability Mouth: oral mucosae normal Eyes Pupils: PERRL EOM: EOM intact bilaterally Resp Effort & Inspection: normal respiratory effort Auscultation: clear to auscultation bilaterally Cardio Rate: regular rate Rhythm: regular rhythm GI Inspection: normal to inspection Back/Spine/Pelvis Cervical Spine: No cervical spinal tenderness Skin Other: Patient does have an abrasion above her right eye. No active bleeding. Neuro General: patient alert, patient awake, patient oriented x3 and moves all extremities Extrem Other: Bilateral hips and lower extremities unremarkable. Right upper extremities unremarkable. Left upper extremity is unremarkable except for tenderness along the ulnar aspect of the hand. Psych Appearance: grossly normal and well kempt Procedures Orthopedic Splinting/Casting Injury #1: Side: left Upper Extremity Injury Location: hand Upper Extremity Immobilizer: ulnar gutter Post splinting neuro exam: no change Post splinting vascular exam: no change Placed by: Nursing Course Orders Ordered: ED Orders 02/13/22 17:10 CT head/brain wo con Stat 02/13/22 17:13 XR hand LT min 3V Stat Vital Signs Vital signs: Vital Signs - 8 hr 02/13/22 20:27 Pulse Rate 81 Respiratory Rate 16 Blood Pressure 190/90 H Pulse Oximetry 98 MDM - Fall Imaging Data CT scan - head: Radiologist's Impression: [address] [id number] Scan ReportSigned Patient: Serenity Asher EMR#: [id number]: 1945cct:[id number]/Sex: 76 / FDate of Service: 02/13/22Loc: EDAccession Number: [id number]? ? Procedure: CT head/brain wo con Ordering Provider: Daniel Mtz MD PROCEDURE:? CT HEAD/BRAIN WO CON ? INDICATIONS:? fall ? TECHNIQUE:? Noncontrast 4.5 mm thick angled axial sections acquired from the foramen magnum to the vertex, with coronal and sagittal reformats.? For radiation dose reduction, the following was used:? automated exposure control, adjustment of mA and/or kV according to patient size.? ? COMPARISON:? [facility], CT, CT HEAD/BRAIN WO CON, 12/13/2020, 17:38. ? FINDINGS:? Image quality:? Excellent.? ? CSF spaces:? Basal cisterns are patent.? No extra-axial fluid collections.? The ventricles are symmetric in size and shape.? ? Brain:? No intracranial bleeds or masses.? There is cerebral volume loss for age, with resultant ventricular and sulcal prominence.? There are periventricular and deep white matter chronic small vessel ischemic changes.? There is intracranial internal carotid artery atherosclerosis.? ? Skull and face:? Slight leftward displaced right and left nasal bone fractures.? There may be a subtle nondisplaced fracture of the anterior nasal septum.? There is a 1.2 cm thick hematoma overlying the right frontal region.? The underlying calvarium and orbital rim appear intact. ? Sinuses:? Visualized sinuses and mastoids are clear.? ? IMPRESSION:? ? 1. No acute intracranial trauma. ? 2. Age-appropriate exam. ? 3. Mildly displaced bilateral nasal bone fractures and possible nondisplaced nasal septal fracture. ? 4. Soft tissue hematoma overlying the right superior orbit without underlying fracture.? ? ? Dictated by: Alexandrea Garcia M.D. on 02/13/2022 at 18:00? ?? Approved by: Alexandrea Garcia M.D. on 02/13/2022 at 18:03 Extremity x-ray #1: Radiologist's Impression: [place] [address] XRay Report Signed Patient: Serenity Asher MR#: [id number] : 1945 Acct:[id number] Age/Sex: 76 / F Date of Service: 02/13/22 Loc: ED Accession Number: [id number] ?? Procedure: XR hand LT min 3V Ordering Provider: Daniel Mtz MD PROCEDURE:? XR HAND LT MIN 3V ? INDICATIONS:? fall ? TECHNIQUE:? Three views of the hand(s) acquired.? ? COMPARISON:? None. ? FINDINGS:? ? Bones:? Decreased mineralization.? Laterally displaced and apex dorsal angulated fracture of the 5th metacarpal neck.? The MCP joint appears to remain intact.? No other acute fractures.? Incidental note made of mild scapholunate joint space widening.? There is joint space loss at the 3rd MCP joint without productive change. ? Soft tissues:? There is a calcification of uncertain chronicity or importance projecting ventrally in the soft tissues at the 2nd metacarpal base. ? ? IMPRESSION:? ? 1. Mildly displaced and slightly angulated 5th metacarpal neck fracture. ? 2. Changes of possible rheumatoid arthritis or connective tissue disease. ? 3. Mild scapholunate interval widening may indicate remote wrist injury. ? ? Dictated by: Alexandrea Garcia M.D. on 02/13/2022 at 17:58 ? ? Approved by: Alexandrea Garcia M.D. on 02/13/2022 at 18:00?? MDM Narrative Medical decision making narrative: Does appear to be a mechanical fall. Has an abrasion above the right eye which needs no intervention here in the emergency department. Does have a nasal bone fracture. Patient also has a left metacarpal fracture for which she was placed in an ulnar gutter splint and was instructed to follow-up with orthopedics and was given information for this. No other injuries reported from the patient. I feel that we can hold on further workup. Cervical spine cleared by nexus criteria. She was given care instructions and return precautions. She expressed understanding and agreement. Discharge Plan Departure Patient Disposition: Home Clinical Impression: Abrasion of skin, Fracture of nasal bone, Fracture of hand Instructions: DI for Nose Fracture, DI for a Hand Fracture, How to Take Care of Your Splint Activity Restrictions/Additional Instructions: The splint needs to stay on and stay clean and stay dry. Recommend that you follow-up with the orthopedic providers the number provided. I do recommend that you place ice over your face. You are going to have some significant bruising over the next couple days. Contact your primary doctor for a follow-up. Return to the emergency department for any new or worsening symptoms. Prescriptions: No Action lamotrigine 200 mg tablet 200 mg PO DAILY Qty: 90 1RF Rx Instructions: new pill size trazodone 100 mg tablet 150 mg PO BEDTIME Qty: 135 1RF CALCIUM CARBONATE (#CALCIUM) 600 mg PO BID Qty: 0 0RF cholecalciferol (vitamin D3) 5,000 UNIT capsule 5,000 unit PO QDAY Qty: 0 0RF acetaminophen [Tylenol Extra Strength] 500 MG tablet 500 mg PO Q4HP PRNQty: 0 0RF metoprolol succinate [Toprol XL] 25 MG tablet extended release 24 hr 12.5 mg PO QDAY Qty: 0 0RF oxybutynin chloride 5 mg tablet extended release 24hr 5 mg PO DAILY Qty: 90 3RF aripiprazole 5 mg tablet See Rx Instructions .ROUTE .COMPLEX Qty: 90 1RF Dose Instruction: TAKE 1 TABLET DAILY Rx Instructions: TAKE 1 TABLET DAILY fluticasone propionate 50 mcg/actuation spray,suspension 2 spray NASAL BEDTIME Qty: 16 4RF Rx Instructions: administer into each nostril ketoconazole 2 % shampoo 1 applictn TOP 2XW 0RF ibuprofen 200 mg capsule 200 mg PO Q4-6H PRN0RF ferrous sulfate 325 mg (65 mg iron) tablet 325 mg PO DAILY 0RF Referrals: Joseph Cedeno MD [Physician] - Joshua Chin MD [Primary Care Provider] - Juancho Mandujano MD [Physician] -
[2022-02-13 20:27] VITALS: BP 190/90; PULSE 81; RESP 16; O2SAT 98
== END 2022-02-13 20:29 | disposition home or self-care (01) ==
PROVIDERS: Emergency Provider Emergency Medicine; PCP Internal Medicine
DX: S62.337A Displaced fracture of neck of fifth metacarpal bone, left hand, initial encounter for closed fracture (principal); S02.2XXA Fracture of nasal bones, initial encounter for closed fracture; S00.81XA Abrasion of other part of head, initial encounter; W01.198A Fall on same level from slipping, tripping and stumbling with subsequent striking against other object, initial encounter
CPT/HCPCS: 29125; 70450; 73130; 99284

== ENCOUNTER → 2022-03-07 07:40 | Outpatient (CLI) | payer MEDICARE, OTHER, SELFPAY ==
[2022-03-07 09:09] LABS: Influenza A - CEPHEID Flu A NEGATIVE (NEGATIVE); Influenza B - CEPHEID Flu B NEGATIVE (NEGATIVE)
[2022-03-07 09:10] LABS: COVID-19 CEPHEID PCR (VTM/NP) Negative (Negative)
== END ==
PROVIDERS: PCP Internal Medicine; Visit Provider Physician Assistant
DX: R05.9 Cough, unspecified (principal)
CPT/HCPCS: 0240U

== ENCOUNTER → 2022-03-08 08:06 | Outpatient (CLI) | payer MEDICARE, OTHER, SELFPAY ==
--- NOTE | 2022-03-08 | DI.MRI.S_ITS ---
PROCEDURE: MR CERVICAL SPINE WO CON INDICATIONS: Spinal stenosis, cervical region TECHNIQUE: Noncontrast sagittal T1 spin echo and T2 fast spin echo, sagittal STIR, foraminal oblique sagittal T2 fast spin echo, and axial gradient echo or T2 fast spin echo through the cervical spine. COMPARISON: [facility] [place], CR, XR CERVICAL SPINE 2 OR 3 VIEWS, 02/26/2022, 8:54. FINDINGS: Image quality: Excellent. Alignment and Curvature: Loss of normal cervical lordosis is present. Mild kyphosis at C4-C6. 2 mm of anterolisthesis of C3 on C4. 4 mm of anterolisthesis of C4 on C5. 3 mm of retrolisthesis of C5 on C6 and C6 on C7. 3 mm of anterolisthesis of C7 on T1 and T1 on T2. 3 mm of anterolisthesis of T3 on T4. Bone Marrow: Marrow demonstrates normal overall signal. Moderate reactive signal within the endplates adjacent to the C5-C6 and C6-C7 intervertebral discs. Mild reactive signal within the endplates adjacent to the remaining cervical and upper thoracic endplates. Spinal Cord: Visualized spinal cord has normal size and signal. No cerebellar tonsillar herniation. Paraspinous Soft Tissues: No paravertebral masses. Prevertebral soft tissues are normal in thickness. C2-C3: Mild disc height loss. Moderate disc desiccation. Mild diffuse disc bulge. Mild facet and uncovertebral hypertrophy bilaterally. Mild canal stenosis. Moderate left and mild right foraminal stenosis. C3-C4: Moderate disc desiccation. Mild disc height loss and diffuse disc bulge. Mild facet and uncovertebral hypertrophy bilaterally. Mild canal stenosis. Moderate bilateral foraminal stenosis. C4-C5: Moderate disc height loss and desiccation. Mild diffuse disc bulge. Mild facet and uncovertebral hypertrophy bilaterally. Moderate canal stenosis. Moderate left and mild right foraminal stenosis. C5-C6: Moderate disc height loss and desiccation. Moderate diffuse disc bulge/osteophyte. Moderate facet and uncovertebral hypertrophy bilaterally. Severe canal stenosis. Mild cord flattening. Severe bilateral foraminal stenosis with bilateral C6 nerve root compression. C6-C7: Moderate disc height loss and desiccation. Moderate diffuse disc bulge/osteophyte. Moderate facet and uncovertebral hypertrophy bilaterally. Moderate to severe canal stenosis. Severe bilateral foraminal stenosis with bilateral C7 nerve root compression. C7-T1: Moderate disc height loss and desiccation. Mild diffuse disc bulge. Mild facet and uncovertebral hypertrophy bilaterally. Mild canal stenosis. Mild right and moderate to severe left foraminal stenosis. Left C8 nerve root compression. IMPRESSION: 1. Multilevel degenerative disc and facet disease, as well as uncovertebral hypertrophy. 2. Multilevel canal stenoses, worst at C5-C6 where there is mild cord flattening. Moderate to severe canal stenosis see C6-C7 is present. 3. Multilevel foraminal stenoses, worst at C5-C6, C6-C7, and C7-T1 where there is associated intraforaminal nerve root compression. Recommend correlation with clinical symptoms to ascertain relevance of these findings. Dictated by: Wes Trejo M.D. on 03/08/2022 at 9:48 Approved by: Wes Trejo M.D. on 03/08/2022 at 9:53
== END ==
PROVIDERS: PCP Internal Medicine; Referring Provider Orthopaedic Surgery; Visit Provider Orthopaedic Surgery
DX: M48.02 Spinal stenosis, cervical region (principal); M50.31 Other cervical disc degeneration, high cervical region
CPT/HCPCS: 72141

== ENCOUNTER → 2022-03-30 08:05 | Outpatient (CLI) | payer MEDICARE, OTHER, SELFPAY ==
[2022-03-30 09:50] LABS: BUN Creatinine Ratio 14.6 (6-22); Blood Urea Nitrogen 14 mg/dL (7-17); Calcium 9.5 mg/dL (8.4-10.2); Carbon Dioxide 26 mmol/L (22-32); Chloride 103 mmol/L (98-107); Cholesterol 204 mg/dL (140-199); Estimated Glomerular Filt Rate > 60 mL/min (>60); Glucose 106 mg/dL (80-110); HDL Cholesterol 91 mg/dL (40-60); HEMOLYSIS 31 (0-50); LDL Cholesterol Calculated 95 mg/dL (<100); Potassium 4.2 mmol/L (3.4-5.1); Sodium 133 mmol/L (137-145); Triglycerides 88 mg/dL (35-150)
== END ==
PROVIDERS: PCP Internal Medicine; Referring Provider Specialist; Visit Provider Specialist
DX: E78.00 Pure hypercholesterolemia, unspecified (principal); I49.3 Ventricular premature depolarization
CPT/HCPCS: 36415; 80048; 80061

== ENCOUNTER 2022-09-10 14:08 | Emergency (ER) | payer MEDICARE, OTHER, SELFPAY ==
[2022-09-10 14:12] VITALS: BP 150/70; PULSE 66; RESP 15; TEMP 36.6; O2SAT 96; BMI 20.5
--- NOTE | 2022-09-10 14:42 | DI.CT.S_ITS ---
PROCEDURE: CT FACIAL BONES WO CON INDICATIONS: fall facial injury TECHNIQUE: Noncontrast 2.5 mm thick axial images acquired from the mandible through the frontal sinuses, with coronal and sagittal reformatting. For radiation dose reduction, the following was used: automated exposure control, adjustment of mA and/or kV according to patient size. COMPARISON: None. FINDINGS: Image quality: Excellent. Bones and teeth: Nondisplaced bilateral nasal bone fractures. Sinuses: Paranasal sinuses are aerated, without fluid levels, mucosal thickening, or mucoceles. Mastoid air cells are aerated. Soft tissues: Left malar region and left lateral periorbital region subcutaneous contusion. Vascular: Visualized vascular structures appear normal in the absence of contrast. Bony vascular foramina and canals are intact. IMPRESSION: Bilateral nondisplaced nasal bone fractures. Dictated by: Eric Ni M.D. on 09/10/2022 at 15:36 Approved by: Eric Ni M.D. on 09/10/2022 at 15:38
--- NOTE | 2022-09-10 14:42 | DI.CT.S_ITS ---
PROCEDURE: CT HEAD/BRAIN WO CON INDICATIONS: fall facial injury TECHNIQUE: Noncontrast 4.5 mm thick angled axial sections acquired from the foramen magnum to the vertex, with coronal and sagittal reformats. For radiation dose reduction, the following was used: automated exposure control, adjustment of mA and/or kV according to patient size. COMPARISON: [facility], CT, CT HEAD/BRAIN WO CON, 02/13/2022, 17:27. FINDINGS: Image quality: Excellent. CSF spaces: Basal cisterns are patent. No extra-axial fluid collections. The ventricles are symmetric in size and shape. Brain: No intracranial bleeds or masses. There is mild cerebral volume loss for age, with resultant ventricular and sulcal prominence. There are [id number] periventricular and deep white matter chronic small vessel ischemic changes. There is intracranial internal carotid artery atherosclerosis. IMPRESSION: No acute intracranial finding. Dictated by: Eric Ni M.D. on 09/10/2022 at 15:35 Approved by: Eric Ni M.D. on 09/10/2022 at 15:36
== END 2022-09-10 16:12 | disposition left against medical advice (07) ==
PROVIDERS: Emergency Provider Emergency Medicine; Family Provider Internal Medicine; PCP Internal Medicine
DX: S02.2XXA Fracture of nasal bones, initial encounter for closed fracture (principal); W18.30XA Fall on same level, unspecified, initial encounter
CPT/HCPCS: 70450; 70486; 99281

== ENCOUNTER → 2022-09-24 10:51 | Outpatient (CLI) | payer MEDICARE, OTHER, SELFPAY ==
--- NOTE | 2022-09-24 | DI.MRI.S_ITS ---
PROCEDURE: MR LUMBAR SPINE WO CON INDICATIONS: Low back pain, unspecified TECHNIQUE: Noncontrast sagittal T1 spin echo and T2 fast echo, sagittal STIR, and T2 fast spin echo through the lumbar spine. In cases with scoliosis, additional coronal T2 fast spin echo may be performed. COMPARISON: None. FINDINGS: Lumbar levoscoliosis. Retrolisthesis of T12 on L1 measuring 3 millimeters. Vertebral body heights maintained. No suspicious focal marrow signal abnormality or bone marrow edema. Normal position and appearance of the conus. Prevertebral and paraspinous soft tissues normal. T12-L1: Posterior osteophytic ridging and circumferential disc bulge flattens the ventral thecal sac without mass effect upon the traversing L1 nerve roots. Mild bilateral neural foraminal narrowing. L1-L2: No spinal canal or neural foraminal stenosis. L2-L3: No spinal canal stenosis. Mild bilateral neural foraminal narrowing due to foraminal components of a diffuse disc bulge. L3-L4: Diffuse disc bulge flattens the ventral thecal sac with displacement of the descending L4 nerve roots in both subarticular zones. Foraminal components of the disc bulge and facet hypertrophy combine to produce mild bilateral neural foraminal narrowing. L4-L5: Diffuse disc bulge with a superimposed broad-based posterior disc protrusion flattens and indents the ventral thecal sac with displacement of the descending L5 nerve roots in both subarticular zones. Foraminal components of the disc bulge combine with facet hypertrophy to produce mild bilateral neural foraminal stenosis. L5-S1: Diffuse disc bulge with superimposed broad-based posterior disc protrusion. Disc material displaces the bilateral descending S1 nerve roots in both subarticular zones. Right foraminal zone annular fissure. Foraminal components of the disc material contribute to moderate bilateral neural foraminal stenosis with flattening along the undersurface of the exiting L5 nerve roots bilaterally. IMPRESSION: Multilevel multifactorial degenerative changes, worst at L5-S1. Moderate lumbar levoscoliosis. Dictated by: Eric Ni M.D. on 09/24/2022 at 15:41 Approved by: Eric Ni M.D. on 09/24/2022 at 15:45
== END ==
PROVIDERS: Family Provider Internal Medicine; PCP Internal Medicine; Referring Provider Orthopaedic Surgery Orthopaedic Surgery of the Spine; Visit Provider Orthopaedic Surgery Orthopaedic Surgery of the Spine
DX: M47.817 Spondylosis without myelopathy or radiculopathy, lumbosacral region (principal); M41.9 Scoliosis, unspecified; M54.50 Low back pain, unspecified
CPT/HCPCS: 72148

== ENCOUNTER → 2022-12-18 07:27 | Outpatient (CLI) | payer MEDICARE, OTHER, SELFPAY ==
[2022-12-18 08:16] LABS: Alanine Aminotransferase 12 IU/L (<35); Albumin 4.1 g/dL (3.5-5.0); Albumin Globulin Ratio 2.1 (1.0-2.8); Alkaline Phosphatase 72 U/L (38-126); Aspartate Aminotransferase 21 IU/L (14-36); BUN Creatinine Ratio 15.7 (6-22); Bilirubin Total 0.5 mg/dL (0.2-1.3); Blood Urea Nitrogen 17 mg/dL (7-17); Calcium 9.2 mg/dL (8.4-10.2); Carbon Dioxide 27 mmol/L (22-32); Chloride 98 mmol/L (98-107); Estimated Glomerular Filt Rate 53 mL/min (>60); Glucose 88 mg/dL (80-110); HEMOLYSIS < 15 (0-50); Potassium 4.2 mmol/L (3.4-5.1); Sodium 132 mmol/L (137-145); Total Protein 6.1 g/dL (6.3-8.2)
[2022-12-21 08:14] LABS: Cholesterol, Total 196 mg/dL (100-199); HDL-Cholesterol 89 mg/dL (>39); HDL-Particle (Total) 41.7 umol/L (>=30.5); LDL Particle 906 nmol/L (<1000); LDL Size 21.2 nm (>20.5); LDL-Cholsterol 90 mg/dL (0-99); LP-IR Score 31 (<=45); Small LDL- Particle <90 nmol/L (<=527); Triglycerides 95 mg/dL (0-149)
== END ==
PROVIDERS: Family Provider Internal Medicine; PCP Internal Medicine; Referring Provider Specialist; Visit Provider Specialist
DX: E78.00 Pure hypercholesterolemia, unspecified (principal)
CPT/HCPCS: 36415; 80053; 80061; 83704

== ENCOUNTER → 2022-12-23 08:06 | Outpatient (CLI) | payer MEDICARE, OTHER, SELFPAY ==
--- NOTE | 2022-12-23 | DI.MG.S_ITS ---
BILATERAL DIGITAL SCREENING MAMMOGRAM 3D/2D WITH CAD: 12/23/2022 CLINICAL: Routine screening. Family history of breast cancer. Comparison is made to exams dated: 12/19/2021 mammogram, 12/06/2020 mammogram, and 11/30/2019 mammogram - [facility]. Both breasts are extremely dense, which lowers the sensitivity of mammography (category d />75% glandular tissue). Current study was also evaluated with a Computer Aided Detection (CAD) system. No significant masses, calcifications, or other findings are seen in either breast. There has been no significant interval change. IMPRESSION: NEGATIVE There is no mammographic evidence of malignancy. A 1 year screening mammogram is recommended. This exam was interpreted at Station ID: [id number]. NOTE: For mammograms, a report in lay terms will be sent to the patient. Approximately 15% of breast malignancies will not be visualized mammographically. In the management of a palpable breast mass, a negative mammogram must not discourage biopsy of a clinically suspicious lesion. Electronically Signed By: Rodney rios/nikita:12/23/2022 10:10:37 letter sent: Normal Exam ACR BI-RADS Category 1: Negative [id number]
== END ==
PROVIDERS: Family Provider Internal Medicine; PCP Internal Medicine; Referring Provider Internal Medicine; Visit Provider Internal Medicine
DX: Z12.31 Encounter for screening mammogram for malignant neoplasm of breast (principal); Z80.3 Family history of malignant neoplasm of breast
CPT/HCPCS: 77063; 77067

== ENCOUNTER 2023-02-12 15:15 | Outpatient (RCR) | payer MEDICARE, OTHER, SELFPAY ==
--- NOTE | 2022-07-16 16:00 | PT.OIE ---
Current Diagnoses Spinal stenosis, cervical region (07/16/22) Low back pain, unspecified (07/16/22) Pain in thoracic spine (07/16/22) Abnormal posture (07/16/22) Weakness (07/16/22) Past Medical History (Last Reviewed 03/07/22 @ 08:15 by Juanita Valladares PA-C) Cancer Cataracts, bilateral (~2015) Chicken pox Chronic renal failure, stage 3 (moderate) Constipation Cyclothymia Depression Fecal incontinence (~2014) Fractures (~2004) Genital warts (~1984) Heart palpitations History of urinary incontinence (~2014) Incomplete left bundle branch block (LBBB) Lumbar spinal stenosis Measles Mixed urge and stress incontinence Osteoporosis, unspecified Overactive bladder Sciatica Urge incontinence Urinary frequency UTI (urinary tract infection) Viral cardiomyopathy Past Surgical History (Last Reviewed 03/07/22 @ 08:15 by Juanita Valladares PA-C) Anesthesia H/O hernia repair History of vaginal hysterectomy (~1996) Melanoma (~1981) Visit Care Team Role Provider Type Joshua Chin MD Family Provider Physician Primary Care Provider Specialty: Internal Medicine Address: [address] [place] [address], [address], [address] Email: [email or web address] Octavia Mitchell MD Attending Provider Physician Referring Provider Specialty: Orthopedics Orthopedic Surgery Address: [address] [place] [address], [id number] Email: [email or web address] [facility] Initial Evaluation PT-OP-A Visit Information Start: 07/15/22 16:45 Freq: Status: Active Protocol: Document 07/16/22 15:28 [facility] (Rec: 07/16/22 16:02 [facility] [id number]) Out-Patient Physical Therapy Visit Information Visit Information Visit Type Initial Evaluation Visit Start Time 15:25 Visit Stop Time 16:20 Total Visit Minutes 55 Visit Number 1 Evaluation Information Evaluation Date 07/16/22 Precautions Precautions PMH: neck pain, left RC repair s/p fall, back pain, hip pain , balance dysfunction PT-OP-B Current Condition Start: 07/15/22 16:45 Freq: Status: Active Protocol: Document 07/16/22 15:28 [facility] (Rec: 07/16/22 16:02 [facility] [id number]) Current Condition History of Current Condition Onset Date 2-3 yrs ago Current Complaints mid back pain History of Current Condition gradual onset of pain mid back . No treatment for it; no exercises, no heat or ice. Takes Ibuprofen and Acetaminophen. Sleeps on side or back. Has just resumed doing exercises for shoulder and low back. Sits and lays down a lot. CAn't walk more than a few blocks due to hip and spinal pain. States middle glut doesn't fire, PT some helpful but didn't resolve issue, but pain is mostly throughout spine. Prior Treatments and Tests prior PT for RC, hip, gluts x-rays show excess kyphosis, and lots of arthritis per patient report, in Dr. Flanagan's office. Treatment Goals Patient/Caregiver Goals IMprove her posture, strength, and activity tolerance Prior Functional Status Baseline Function- ADL's Independent Baseline Function- Mobility Independent Baseline Function- Gait indep, no diff Baseline Function- Work/School retired Baseline Function- Recreation/Hobbies no diff Current Functional Impairments (Reported) Functional Limitations- ADL's painful Functional Limitations- Mobility/Gait poor tolerance for standing and walking due to back pain Functional Limitations- Work/School retired Functional Limitations- Recreation/ reading, sedentary. Painful Hobbies with other activities PT-OP-C Subjective Start: 07/15/22 16:45 Freq: Status: Active Protocol: Document 07/16/22 15:28 [facility] (Rec: 07/17/22 10:40 [facility] [id number]) Patient Questionnaires Oswestry Low Back Index Oswestry Score 44 OP-PT Pain Assessment Pain Assessment Grid Paper Pain Assessment Grid Completed Yes Location thoracolumbar spine Intensity 6 Pain Aggravating Factors Activity,Standing,Walking, Bending,Lifting PT-OP-D Balance Start: 07/15/22 16:45 Freq: Status: Active Protocol: Document 07/16/22 15:28 [facility] (Rec: 07/17/22 10:40 [facility] [id number]) OP-PT Balance Assessment Sitting Balance Static Sitting Balance Ability Good Dynamic Sitting Balance Ability Good Standing Balance Static Standing Balance Ability Fair Dynamic Standing Balance Ability Poor Standing Balance Comments encouraged patient to use cane or trekking poles due to her expressed fear of falling, difficulty with balance Garza Fall Scale Copyright Permission PT-OP-G Mobility & Gait Start: 07/15/22 16:45 Freq: Status: Active Protocol: Document 07/16/22 15:28 [facility] (Rec: 07/17/22 10:40 [facility] [id number]) OP Mobility Evaluation Bed Mobility Supine to and from Sit instrsucted in log roll for spinal protection, practice x 3 with improving performance with repeititoin OP Gait Assessment Gait Deviations General Gait Pattern Decreased Stride Length, Decreased Feet Clearance PT-OP-H Neuro Start: 07/15/22 16:45 Freq: Status: Active Protocol: Document 07/16/22 15:28 [facility] (Rec: 07/17/22 14:20 [facility] [id number]) Sensation Evaluation Gross Sensation Gross Sensation WNL PT-OP-J Posture/Palpation/Skin Start: 07/15/22 16:45 Freq: Status: Active Protocol: Document 07/16/22 15:28 [facility] (Rec: 07/17/22 14:20 [facility] [id number]) Posture Evaluation Position Standing Head/C-Spine Posture Forward Head T-Spine Posture Increased Kyphosis L-Spine Posture Increased Lordosis Shoulder Posture (L) Rounded,(R) Rounded Scapula Posture (L) Protracted,(R) Protracted Arm Posture (L) Internally Rotated,(R) Internally Rotated Palpation Assessment Location thoracolumbar paraspinals Palpation Location zachery Palpation Findings Soft Tissue Tightness, Tenderness PT-OP-K Range of Motion Start: 07/15/22 16:45 Freq: Status: Active Protocol: Document 07/16/22 15:28 [facility] (Rec: 07/17/22 14:20 [facility] [id number]) Lumbar Spine Range of Motion Lumbar Spine Active ROM Limitations Soft Tissue Tightness,Pain Comments moderately decreased all motions PT-OP-M Strength Start: 07/15/22 16:45 Freq: Status: Active Protocol: Document 07/16/22 15:28 [facility] (Rec: 07/17/22 14:20 [facility] [id number]) Trunk Strength Trunk Manual Muscle Testing Core Stabilization poor Comments Unable to do formal MMT due to pain Hip Strength Hip Manual Muscle Testing zachery Flexion (L2) 3+ Fair+ Extension (S1) 3+ Fair+ Abduction 3+ Fair+ Adduction 3+ Fair+ External Rotation 3+ Fair+ Internal Rotation 3+ Fair+ Comments limited by pain PT-OP-Q Treatments Start: 07/15/22 16:45 Freq: Status: Active Protocol: Document 07/16/22 15:28 [facility] (Rec: 07/17/22 14:20 [facility] [id number]) Self-Care/Home Management Treatment Education Patient Education Home Exercise Program,Posture Other Education issued written HO and loaned Posture, Get It Straight book PT-OP-R Modalities Start: 07/15/22 16:45 Freq: Status: Active Protocol: Document 07/16/22 15:28 [facility] (Rec: 07/17/22 14:20 [facility] [id number]) Hot Pack/Cold Pack Treatment Heat Location thoracolumbar spine Patient Position Hooklying Treatment Duration (minutes) 15 Patient Tolerance Good PT-OP-T Assessment and Plan Start: 07/15/22 16:45 Freq: Status: Active Protocol: Document 07/16/22 15:28 [facility] (Rec: 07/16/22 16:02 [facility] [id number]) Physical Therapy Assessment Rehab Potential Rehabilitation Potential Good Evaluation Complexity Number of Personal Factors/Comorbidities 1-2 Number of Body Systems Impaired 3 Clinical Presentation at Evaluation Evolving Impairments Impairments Activity Tolerance,Pain, Posture,Strength Goals activity tolerance Impairment Oswestry disability index score 44% Short Term Goal (STG) Decrease Oswestry score to no greater than 30% as measure of improved activity tolerance and function STG Duration 08/15/22 Furnace Charger Goal (LTG) Decrease Oswestry score to no greater than 20% as measur of improved activity tolerance and function in her day to day life. LTG Duration 10/15/22 weakness Impairment trunk and core muscle weakness Impairment weakness throughout trunk musculature Short Term Goal (STG) patient to be instructed in HEP for purposes of trunk and core strengthening STG Duration 08/15/22 Mcc Goal (LTG) Patient will be independent and compliant with HEP and demonstrate improved muscle strength throughout trunk and core LTG Duration 10/15/22 Two Impairment pain thoracolumbar Impairment Pain as high as 6/10 limiting ability to stand, walk, and do usual activities Short Term Goal (STG) Decrease pain to no greater than 4/10 with all usual activities STG Duration 08/15/22 Furnace Charger Goal (LTG) Decrease pain to no greater than 2/10 with patient able to resume more physical activities without difficulty LTG Duration 10/15/22 1 Impairment postural dysfunction Impairment excess thoracic kyphosis and lumbar lordosis Short Term Goal (STG) Patient to receive postural education and therapeutic exercises for postural correction STG Duration 08/15/22 Furnace Charger Goal (LTG) Patient to demonstrate improved postural awareness statically and dynamically with functional movement and activities LTG Duration 10/15/22 Assessment Summary Assessment Patient presents with function -limiting pain in thoracolumbar spine, with weakness and postural dysfunction highly contributory. Per patient x- ray shows arthritis and excess curves in her spine. Patient is mostly sedentary. Feel patient would benefit from PT to decrease her pain, improve her posture, strength, and activity tolerance to allow her to resume a more active lifestyle. Discussed POC and patient is in agreement. Started initial exercises for postural correction and issued written handout. Treatment ended with moist heat to thoracolumbar spine x 15 min with good tolerance. Physical Therapy Plan Frequency and Duration Frequency of Treatment 2x/Week Duration of Treatment 12 weeks Plan of Care Start Date 07/16/22 Plan of Care End Date 10/14/22 Therapeutic Interventions Therapeutic Interventions Manual Therapy,Patient/ Caregiver Education,Self-Care/ Home Management,Soft Tissue Mobilization,Therapeutic Activities,Therapeutic Exercises Modalities Electric Stimulation,Hot Packs ,Traction- Mechanical, Ultrasound Next Visit Focus/Plan Next Note Type Treatment Note Next Visit Plan Evaluate response to first session, review HEP, response to heat. Gentle progression of postural correction and core strengthening after starting with recumbant elliptical.
--- NOTE | 2022-07-16 16:00 | PT.OPPOC ---
Physical, Occupational & Speech Therapy At [facility] Current Diagnoses Spinal stenosis, cervical region (07/16/22) Low back pain, unspecified (07/16/22) Pain in thoracic spine (07/16/22) Abnormal posture (07/16/22) Weakness (07/16/22) Visit Care Team Role Provider Type Joshua Chin MD Family Provider Physician Primary Care Provider Specialty: Internal Medicine Address: [address] [place] [address], [facility] [address], [address] Email: [email or web address] Octavia Mitchell MD Attending Provider Physician Referring Provider Specialty: Orthopedics Orthopedic Surgery Address: [address] [place] [address], [address] Email: [email or web address] Plan Of Care PT-OP-T Assessment and Plan Start: 07/15/22 16:45 Freq: Status: Active Protocol: Document 07/16/22 15:28 [facility] (Rec: 07/16/22 16:02 [facility] [id number]) Physical Therapy Assessment Rehab Potential Rehabilitation Potential Good Evaluation Complexity Number of Personal Factors/Comorbidities 1-2 Number of Body Systems Impaired 3 Clinical Presentation at Evaluation Evolving Impairments Impairments Activity Tolerance,Pain, Posture,Strength Goals activity tolerance Impairment Oswestry disability index score 44% Short Term Goal (STG) Decrease Oswestry score to no greater than 30% as measure of improved activity tolerance and function STG Duration 08/15/22 Home Lending Officer Goal (LTG) Decrease Oswestry score to no greater than 20% as measur of improved activity tolerance and function in her day to day life. LTG Duration 10/15/22 weakness Impairment trunk and core muscle weakness Impairment weakness throughout trunk musculature Short Term Goal (STG) patient to be instructed in HEP for purposes of trunk and core strengthening STG Duration 08/15/22 Skilled Nursing Goal (LTG) Patient will be independent and compliant with HEP and demonstrate improved muscle strength throughout trunk and core LTG Duration 10/15/22 Two Impairment pain thoracolumbar Impairment Pain as high as 6/10 limiting ability to stand, walk, and do usual activities Short Term Goal (STG) Decrease pain to no greater than 4/10 with all usual activities STG Duration 08/15/22 Skilled Nursing Goal (LTG) Decrease pain to no greater than 2/10 with patient able to resume more physical activities without difficulty LTG Duration 10/15/22 1 Impairment postural dysfunction Impairment excess thoracic kyphosis and lumbar lordosis Short Term Goal (STG) Patient to receive postural education and therapeutic exercises for postural correction STG Duration 08/15/22 Home Lending Officer Goal (LTG) Patient to demonstrate improved postural awareness statically and dynamically with functional movement and activities LTG Duration 10/15/22 Assessment Summary Assessment Patient presents with function -limiting pain in thoracolumbar spine, with weakness and postural dysfunction highly contributory. Per patient x- ray shows arthritis and excess curves in her spine. Patient is mostly sedentary. Feel patient would benefit from PT to decrease her pain, improve her posture, strength, and activity tolerance to allow her to resume a more active lifestyle. Discussed POC and patient is in agreement. Started initial exercises for postural correction and issued written handout. Treatment ended with moist heat to thoracolumbar spine x 15 min with good tolerance. Physical Therapy Plan Frequency and Duration Frequency of Treatment 2x/Week Duration of Treatment 12 weeks Plan of Care Start Date 07/16/22 Plan of Care End Date 10/14/22 Therapeutic Interventions Therapeutic Interventions Manual Therapy,Patient/ Caregiver Education,Self-Care/ Home Management,Soft Tissue Mobilization,Therapeutic Activities,Therapeutic Exercises Modalities Electric Stimulation,Hot Packs ,Traction- Mechanical, Ultrasound Next Visit Focus/Plan Next Note Type Treatment Note Next Visit Plan Evaluate response to first session, review HEP, response to heat. Gentle progression of postural correction and core strengthening after starting with recumbant elliptical. Plan of Care Dates Plan of Care Start Date 07/16/22 Plan of Care End Date 10/14/22 Electronically Signed by: Opal Tineo PT 07/17/22 2624 If you are in agreement with this Plan of Care, please return a signed and dated copy. I have reviewed this Plan of Care and certify that the skilled therapy services above are required to meet the patient?s needs. Physician Signature Date Printed Name and Credentials Clinical Instructor Signature Printed Name and Credentials
--- NOTE | 2022-07-18 16:33 | PT.OTN ---
Current Diagnoses Spinal stenosis, cervical region (07/18/22) Low back pain, unspecified (07/18/22) Pain in thoracic spine (07/18/22) Abnormal posture (07/18/22) Weakness (07/18/22) Physical Therapy Treatment Note PT-OP-A Visit Information Start: 07/15/22 16:45 Freq: Status: Active Protocol: Document 07/18/22 12:55 SAK (Rec: 07/18/22 13:46 [facility] [id number]) Out-Patient Physical Therapy Visit Information Visit Information Visit Type Treatment Note Visit Start Time 13:00 Visit Stop Time 14:00 Total Visit Minutes 60 Visit Number 2 Evaluation Information Evaluation Date 07/16/22 Precautions Precautions PMH: neck pain, left RC repair s/p fall, back pain, hip pain , balance dysfunction PT-OP-B Current Condition Start: 07/15/22 16:45 Freq: Status: Active Protocol: Document 07/18/22 12:55 SAK (Rec: 07/18/22 13:46 [facility] [id number]) Current Condition History of Current Condition Onset Date 2-3 yrs ago Current Complaints mid back pain History of Current Condition gradual onset of pain mid back . No treatment for it; no exercises, no heat or ice. Takes Ibuprofen and Acetaminophen. Sleeps on side or back. Has just resumed doing exercises for shoulder and low back. Sits and lays down a lot. CAn't walk more than a few blocks due to hip and spinal pain. States middle glut doesn't fire, PT some helpful but didn't resolve issue, but pain is mostly throughout spine. Prior Treatments and Tests prior PT for RC, hip, gluts x-rays show excess kyphosis, and lots of arthritis per patient report, in Dr. Flanagan's office. Treatment Goals Patient/Caregiver Goals IMprove her posture, strength, and activity tolerance PT-OP-C Subjective Start: 07/15/22 16:45 Freq: Status: Active Protocol: Document 07/18/22 12:55 SAK (Rec: 07/18/22 13:46 [facility] [id number]) OP-PT Subjective Patient Comments Patient Comments States has been doing the first exercise in book, was hurting so bad she had to lay down for at least an hour yesterday. Agrees she may have overdone it. PT-OP-D Balance Start: 07/15/22 16:45 Freq: Status: Active Protocol: Document 07/16/22 15:28 [facility] (Rec: 07/17/22 10:40 [facility] [id number]) OP-PT Balance Assessment Sitting Balance Static Sitting Balance Ability Good Dynamic Sitting Balance Ability Good Standing Balance Static Standing Balance Ability Fair Dynamic Standing Balance Ability Poor Standing Balance Comments encouraged patient to use cane or trekking poles due to her expressed fear of falling, difficulty with balance Garza Fall Scale Copyright Permission PT-OP-G Mobility & Gait Start: 07/15/22 16:45 Freq: Status: Active Protocol: Document 07/16/22 15:28 [facility] (Rec: 07/17/22 10:40 [facility] [id number]) OP Mobility Evaluation Bed Mobility Supine to and from Sit instrsucted in log roll for spinal protection, practice x 3 with improving performance with repeititoin OP Gait Assessment Gait Deviations General Gait Pattern Decreased Stride Length, Decreased Feet Clearance PT-OP-H Neuro Start: 07/15/22 16:45 Freq: Status: Active Protocol: Document 07/16/22 15:28 [facility] (Rec: 07/17/22 14:20 [facility] [id number]) Sensation Evaluation Gross Sensation Gross Sensation WNL PT-OP-J Posture/Palpation/Skin Start: 07/15/22 16:45 Freq: Status: Active Protocol: Document 07/16/22 15:28 [facility] (Rec: 07/17/22 14:20 [facility] [id number]) Posture Evaluation Position Standing Head/C-Spine Posture Forward Head T-Spine Posture Increased Kyphosis L-Spine Posture Increased Lordosis Shoulder Posture (L) Rounded,(R) Rounded Scapula Posture (L) Protracted,(R) Protracted Arm Posture (L) Internally Rotated,(R) Internally Rotated Palpation Assessment Location thoracolumbar paraspinals Palpation Location zachery Palpation Findings Soft Tissue Tightness, Tenderness PT-OP-K Range of Motion Start: 07/15/22 16:45 Freq: Status: Active Protocol: Document 07/16/22 15:28 [facility] (Rec: 07/17/22 14:20 [facility] [id number]) Lumbar Spine Range of Motion Lumbar Spine Active ROM Limitations Soft Tissue Tightness,Pain Comments moderately decreased all motions PT-OP-M Strength Start: 07/15/22 16:45 Freq: Status: Active Protocol: Document 07/16/22 15:28 [facility] (Rec: 07/17/22 14:20 [facility] [id number]) Trunk Strength Trunk Manual Muscle Testing Core Stabilization poor Comments Unable to do formal MMT due to pain Hip Strength Hip Manual Muscle Testing zachery Flexion (L2) 3+ Fair+ Extension (S1) 3+ Fair+ Abduction 3+ Fair+ Adduction 3+ Fair+ External Rotation 3+ Fair+ Internal Rotation 3+ Fair+ Comments limited by pain PT-OP-Q Treatments Start: 07/15/22 16:45 Freq: Status: Active Protocol: Document 07/18/22 12:55 [facility] (Rec: 07/18/22 13:46 [facility] [id number]) Cardio Equipment Recumbent Stepper (Sci-Fit) Duration (Minutes) 5 Resistance 1 Seat Position 9 Therapeutic Exercises Supine Exercises pec stretch Reps/Minutes 2x30 Comments pillows under arms overhead stretch Reps/Minutes 2x30 Comments pillows under arms upper back relaxer Reps/Minutes 5 x zachery goal post Reps/Minutes 10x Comments emphasis on the external rot at should triangle stretch Reps/Minutes 10x10 Comments verbal and tactile cues posture press Reps/Minutes 10x10 Comments verbal and tactile cues Self-Care/Home Management Treatment Education Patient Education Home Exercise Program Other Education updated HO and made notes on HO for improved understanding PT-OP-R Modalities Start: 07/15/22 16:45 Freq: Status: Active Protocol: Document 07/18/22 12:55 [facility] (Rec: 07/18/22 13:46 [facility] [id number]) Hot Pack/Cold Pack Treatment Heat Location thoracolumbar spine Patient Position Hooklying Treatment Duration (minutes) 15 Patient Tolerance Good PT-OP-T Assessment and Plan Start: 07/15/22 16:45 Freq: Status: Active Protocol: Document 07/18/22 12:55 [facility] (Rec: 07/18/22 13:46 [facility] [id number]) Physical Therapy Assessment Impairments Impairments Activity Tolerance,Pain, Posture,Strength Goals activity tolerance Impairment Oswestry disability index score 44% Short Term Goal (STG) Decrease Oswestry score to no greater than 30% as measure of improved activity tolerance and function STG Duration 08/15/22 Coder Goal (LTG) Decrease Oswestry score to no greater than 20% as measur of improved activity tolerance and function in her day to day life. LTG Duration 10/15/22 weakness Impairment trunk and core muscle weakness Impairment weakness throughout trunk musculature Short Term Goal (STG) patient to be instructed in HEP for purposes of trunk and core strengthening STG Duration 08/15/22 [facility] Goal (LTG) Patient will be independent and compliant with HEP and demonstrate improved muscle strength throughout trunk and core LTG Duration 10/15/22 Two Impairment pain thoracolumbar Impairment Pain as high as 6/10 limiting ability to stand, walk, and do usual activities Short Term Goal (STG) Decrease pain to no greater than 4/10 with all usual activities STG Duration 08/15/22 [facility] Goal (LTG) Decrease pain to no greater than 2/10 with patient able to resume more physical activities without difficulty LTG Duration 10/15/22 1 Impairment postural dysfunction Impairment excess thoracic kyphosis and lumbar lordosis Short Term Goal (STG) Patient to receive postural education and therapeutic exercises for postural correction STG Duration 08/15/22 Coder Goal (LTG) Patient to demonstrate improved postural awareness statically and dynamically with functional movement and activities LTG Duration 10/15/22 Assessment Summary Assessment Patient needed moderate cues for correct exercise performance with cues for submaximal performance in pain -free ROM and intensity. Start with supine exercises as previously instructed, don't overdo. Physical Therapy Plan Frequency and Duration Frequency of Treatment 2x/Week Duration of Treatment 12 weeks Plan of Care Start Date 07/16/22 Plan of Care End Date 10/14/22 Therapeutic Interventions Therapeutic Interventions Manual Therapy,Patient/ Caregiver Education,Self-Care/ Home Management,Soft Tissue Mobilization,Therapeutic Activities,Therapeutic Exercises Modalities Electric Stimulation,Hot Packs ,Traction- Mechanical, Ultrasound Next Visit Focus/Plan Next Note Type Treatment Note Next Visit Plan Continue gentle progression of ther ex for postural correction, core strengthening , flfexibility. Modalities and manual therapy PRN.
--- NOTE | 2022-07-22 20:10 | PT.OTN ---
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 No treatment for it; no exercises, no heat or ice. Takes Ibuprofen and Acetaminophen. Sleeps on side or back. Has just resumed doing exercises for shoulder and low back. Sits and lays down a lot. CAn't walk more than a few blocks due to hip and spinal pain. States middle glut doesn't fire, PT some helpful but didn't resolve issue, but pain is mostly throughout spine. Prior Treatments and Tests prior PT for RC, hip, gluts x-rays show excess kyphosis, and lots of arthritis per patient report, in Dr. Flanagan's office. Treatment Goals Patient/Caregiver Goals IMprove her posture, strength, and activity tolerance PT-OP-C Subjective Start: 07/15/22 16:45 Freq: Status: Active Protocol: Document 07/22/22 13:50 NBM (Rec: 07/22/22 20:08 NBM [id number]) OP-PT Subjective Patient Comments Patient Comments Pt states she has stiffness and has been trying to do the exercises but they are confusing. PT-OP-D Balance Start: 07/15/22 16:45 Freq: Status: Active Protocol: Document 07/16/22 15:28 SAK (Rec: 07/17/22 10:40 [facility] [id number]) OP-PT Balance Assessment Sitting Balance Static Sitting Balance Ability Good Dynamic Sitting Balance Ability Good Standing Balance Static Standing Balance Ability Fair Dynamic Standing Balance Ability Poor Standing Balance Comments encouraged patient to use cane or trekking poles due to her expressed fear of falling, difficulty with balance Garza Fall Scale Copyright Permission PT-OP-G Mobility & Gait Start: 07/15/22 16:45 Freq: Status: Active Protocol: Document 07/16/22 15:28 [facility] (Rec: 07/17/22 10:40 [facility] [id number]) OP Mobility Evaluation Bed Mobility Supine to and from Sit instrsucted in log roll for spinal protection, practice x 3 with improving performance with repeititoin OP Gait Assessment Gait Deviations General Gait Pattern Decreased Stride Length, Decreased Feet Clearance PT-OP-H Neuro Start: 07/15/22 16:45 Freq: Status: Active Protocol: Document 07/16/22 15:28 [facility] (Rec: 07/17/22 14:20 [facility] [id number]) Sensation Evaluation Gross Sensation Gross Sensation WNL PT-OP-J Posture/Palpation/Skin Start: 07/15/22 16:45 Freq: Status: Active Protocol: Document 07/16/22 15:28 [facility] (Rec: 07/17/22 14:20 [facility] [id number]) Posture Evaluation Position Standing Head/C-Spine Posture Forward Head T-Spine Posture Increased Kyphosis L-Spine Posture Increased Lordosis Shoulder Posture (L) Rounded,(R) Rounded Scapula Posture (L) Protracted,(R) Protracted Arm Posture (L) Internally Rotated,(R) Internally Rotated Palpation Assessment Location thoracolumbar paraspinals Palpation Location zachery Palpation Findings Soft Tissue Tightness, Tenderness PT-OP-K Range of Motion Start: 07/15/22 16:45 Freq: Status: Active Protocol: Document 07/16/22 15:28 [facility] (Rec: 07/17/22 14:20 [facility] [id number]) Lumbar Spine Range of Motion Lumbar Spine Active ROM Limitations Soft Tissue Tightness,Pain Comments moderately decreased all motions PT-OP-M Strength Start: 07/15/22 16:45 Freq: Status: Active Protocol: Document 07/16/22 15:28 [facility] (Rec: 07/17/22 14:20 [facility] [id number]) Trunk Strength Trunk Manual Muscle Testing Core Stabilization poor Comments Unable to do formal MMT due to pain Hip Strength Hip Manual Muscle Testing zachery Flexion (L2) 3+ Fair+ Extension (S1) 3+ Fair+ Abduction 3+ Fair+ Adduction 3+ Fair+ External Rotation 3+ Fair+ Internal Rotation 3+ Fair+ Comments limited by pain PT-OP-Q Treatments Start: 07/15/22 16:45 Freq: Status: Active Protocol: Document 07/22/22 13:50 NBM (Rec: 07/22/22 20:08 [facility] [id number]) Cardio Equipment Recumbent Stepper (Sci-Fit) Duration (Minutes) 5 Resistance 2 Seat Position 9 Therapeutic Exercises Supine Exercises pec stretch Reps/Minutes 2x30 Comments pillows under arms overhead stretch Reps/Minutes 2x30 Comments pillows under arms upper back relaxer Reps/Minutes 5 x zachery goal post Supine Exercise Name tactile cue to keep shoulders down Reps/Minutes 10x Comments emphasis on the external rot at should triangle stretch Reps/Minutes 10x10 Comments verbal and tactile cues posture press Reps/Minutes 10x10 Comments verbal and tactile cues Manual Therapy Treatment Soft Tissue Mobilization Shoulders Body Location B Upper Trap, LS Mobilization Type Rolling,Sustained Pressure Intensity/Depth Moderate Body Position Hooklying Comments Good feedback response Cervical Body Location B Paraspinals, SO, Scalenes Mobilization Type Myofascial Release,Rolling, Sustained Pressure Intensity/Depth Superficial Body Position Hooklying Comments gentle; good feedback response Self-Care/Home Management Treatment Education Patient Education Home Exercise Program Other Education Recopied HEP HO to remove repeating front/back pages, highlighted ex names and numbered each one with notes on HO for improved understanding PT-OP-R Modalities Start: 07/15/22 16:45 Freq: Status: Active Protocol: Document 07/22/22 13:50 NBM (Rec: 07/22/22 20:08 [facility] [id number]) Hot Pack/Cold Pack Treatment Heat Location thoracolumbar spine Patient Position Hooklying Treatment Duration (minutes) 15 Patient Tolerance Good PT-OP-T Assessment and Plan Start: 07/15/22 16:45 Freq: Status: Active Protocol: Document 07/22/22 13:50 NBM (Rec: 07/22/22 20:08 [facility] [id number]) Physical Therapy Assessment Goals activity tolerance Impairment Oswestry disability index score 44% Short Term Goal (STG) Decrease Oswestry score to no greater than 30% as measure of improved activity tolerance and function STG Duration 08/15/22 Picker Packer Goal (LTG) Decrease Oswestry score to no greater than 20% as measur of improved activity tolerance and function in her day to day life. LTG Duration 10/15/22 weakness Impairment trunk and core muscle weakness Impairment weakness throughout trunk musculature Short Term Goal (STG) patient to be instructed in HEP for purposes of trunk and core strengthening STG Duration 08/15/22 Picker Packer Goal (LTG) Patient will be independent and compliant with HEP and demonstrate improved muscle strength throughout trunk and core LTG Duration 10/15/22 Two Impairment pain thoracolumbar Impairment Pain as high as 6/10 limiting ability to stand, walk, and do usual activities Short Term Goal (STG) Decrease pain to no greater than 4/10 with all usual activities STG Duration 08/15/22 Residential Goal (LTG) Decrease pain to no greater than 2/10 with patient able to resume more physical activities without difficulty LTG Duration 10/15/22 1 Impairment postural dysfunction Impairment excess thoracic kyphosis and lumbar lordosis Short Term Goal (STG) Patient to receive postural education and therapeutic exercises for postural correction STG Duration 08/15/22 Picker Packer Goal (LTG) Patient to demonstrate improved postural awareness statically and dynamically with functional movement and activities LTG Duration 10/15/22 Assessment Summary Assessment Treatment focus on HEP review with updated handouts for improved understanding of exercises. Patient requires moderate cues for correct exercise performance w/ improved self-awareness w/ repetition, and to hold stretching exercises sufficiently and in pain-free range. Palpable tightness in bilateral cervical paraspinals , scalenes, levator scapula, and Upper trapezius improves with manual therapy. Physical Therapy Plan Frequency and Duration Frequency of Treatment 2x/Week Duration of treatment (weeks) 12 Plan of Care Start Date 07/16/22 Plan of Care End Date 10/14/22 Therapeutic Interventions Therapeutic Interventions Manual Therapy,Patient/ Caregiver Education,Self-Care/ Home Management,Soft Tissue Mobilization,Therapeutic Activities,Therapeutic Exercises Modalities Electric Stimulation,Hot Packs ,Traction- Mechanical, Ultrasound Next Visit Focus/Plan Next Note Type Treatment Note Next Visit Plan Continue gentle progression of ther ex for postural correction, core strengthening , flexibility. Modalities and manual therapy PRN.
--- NOTE | 2022-07-25 14:31 | PT.OTN ---
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 No treatment for it; no exercises, no heat or ice. Takes Ibuprofen and Acetaminophen. Sleeps on side or back. Has just resumed doing exercises for shoulder and low back. Sits and lays down a lot. CAn't walk more than a few blocks due to hip and spinal pain. States middle glut doesn't fire, PT some helpful but didn't resolve issue, but pain is mostly throughout spine. Prior Treatments and Tests prior PT for RC, hip, gluts x-rays show excess kyphosis, and lots of arthritis per patient report, in Dr. Flanagan's office. Treatment Goals Patient/Caregiver Goals IMprove her posture, strength, and activity tolerance PT-OP-C Subjective Start: 07/15/22 16:45 Freq: Status: Active Protocol: Document 07/25/22 13:45 SAK (Rec: 07/25/22 14:31 SAK [id number]) OP-PT Subjective Patient Comments Patient Comments No new c/o. Leaves for [place] on Friday to visit friends for 1 week. Understands exercises better, used heating pad but it is not as large as the one in PT. PT-OP-D Balance Start: 07/15/22 16:45 Freq: Status: Active Protocol: Document 07/16/22 15:28 [facility] (Rec: 07/17/22 10:40 [facility] [id number]) OP-PT Balance Assessment Sitting Balance Static Sitting Balance Ability Good Dynamic Sitting Balance Ability Good Standing Balance Static Standing Balance Ability Fair Dynamic Standing Balance Ability Poor Standing Balance Comments encouraged patient to use cane or trekking poles due to her expressed fear of falling, difficulty with balance Garza Fall Scale Copyright Permission PT-OP-G Mobility & Gait Start: 07/15/22 16:45 Freq: Status: Active Protocol: Document 07/16/22 15:28 [facility] (Rec: 07/17/22 10:40 [facility] [id number]) OP Mobility Evaluation Bed Mobility Supine to and from Sit instrsucted in log roll for spinal protection, practice x 3 with improving performance with repeititoin OP Gait Assessment Gait Deviations General Gait Pattern Decreased Stride Length, Decreased Feet Clearance PT-OP-H Neuro Start: 07/15/22 16:45 Freq: Status: Active Protocol: Document 07/16/22 15:28 [facility] (Rec: 07/17/22 14:20 [facility] [id number]) Sensation Evaluation Gross Sensation Gross Sensation WNL PT-OP-J Posture/Palpation/Skin Start: 07/15/22 16:45 Freq: Status: Active Protocol: Document 07/16/22 15:28 [facility] (Rec: 07/17/22 14:20 [facility] [id number]) Posture Evaluation Position Standing Head/C-Spine Posture Forward Head T-Spine Posture Increased Kyphosis L-Spine Posture Increased Lordosis Shoulder Posture (L) Rounded,(R) Rounded Scapula Posture (L) Protracted,(R) Protracted Arm Posture (L) Internally Rotated,(R) Internally Rotated Palpation Assessment Location thoracolumbar paraspinals Palpation Location zachery Palpation Findings Soft Tissue Tightness, Tenderness PT-OP-K Range of Motion Start: 07/15/22 16:45 Freq: Status: Active Protocol: Document 07/16/22 15:28 [facility] (Rec: 07/17/22 14:20 [facility] [id number]) Lumbar Spine Range of Motion Lumbar Spine Active ROM Limitations Soft Tissue Tightness,Pain Comments moderately decreased all motions PT-OP-M Strength Start: 07/15/22 16:45 Freq: Status: Active Protocol: Document 07/16/22 15:28 [facility] (Rec: 07/17/22 14:20 [facility] [id number]) Trunk Strength Trunk Manual Muscle Testing Core Stabilization poor Comments Unable to do formal MMT due to pain Hip Strength Hip Manual Muscle Testing zachery Flexion (L2) 3+ Fair+ Extension (S1) 3+ Fair+ Abduction 3+ Fair+ Adduction 3+ Fair+ External Rotation 3+ Fair+ Internal Rotation 3+ Fair+ Comments limited by pain PT-OP-Q Treatments Start: 07/15/22 16:45 Freq: Status: Active Protocol: Document 07/25/22 13:45 [facility] (Rec: 07/25/22 14:31 [facility] [id number]) Cardio Equipment Recumbent Stepper (Sci-Fit) Duration (Minutes) 6 Resistance 2.5 Seat Position 9 Other 45-50rpm, 0.69 miles Therapeutic Exercises Supine Exercises pec stretch Reps/Minutes 2x30 Comments pillows under arms overhead stretch Reps/Minutes 2x30 Comments pillows under arms upper back relaxer Reps/Minutes 5 x zachery triangle stretch Supine Exercise Name triangle press Reps/Minutes 10x10 Sitting Exercises trunk rotation Sitting Exercise Name hand on opposite knee Reps/Minutes 2x30 Comments cues for deep breathing, gentle movement seated cat/cow Reps/Minutes 5x Comments cues for segmental movement Standing Exercises row, shld ext Resistance L1 TB Reps/Minutes 10x5 Self-Care/Home Management Treatment Education Patient Education Home Exercise Program Other Education added theraband exercises with new HO and issued L1 TB PT-OP-R Modalities Start: 07/15/22 16:45 Freq: Status: Active Protocol: Document 07/25/22 13:45 [facility] (Rec: 07/25/22 14:31 [facility] [id number]) Hot Pack/Cold Pack Treatment Heat Location thoracolumbar spine Patient Position Hooklying Treatment Duration (minutes) 15 Patient Tolerance Good PT-OP-T Assessment and Plan Start: 07/15/22 16:45 Freq: Status: Active Protocol: Document 07/25/22 13:45 [facility] (Rec: 07/25/22 14:31 [facility] [id number]) Physical Therapy Assessment Impairments Impairments Activity Tolerance,Pain, Posture,Strength Goals activity tolerance Impairment Oswestry disability index score 44% Short Term Goal (STG) Decrease Oswestry score to no greater than 30% as measure of improved activity tolerance and function STG Duration 08/15/22 Eggs Inspector Goal (LTG) Decrease Oswestry score to no greater than 20% as measur of improved activity tolerance and function in her day to day life. LTG Duration 10/15/22 weakness Impairment trunk and core muscle weakness Impairment weakness throughout trunk musculature Short Term Goal (STG) patient to be instructed in HEP for purposes of trunk and core strengthening STG Duration 08/15/22 Eggs Inspector Goal (LTG) Patient will be independent and compliant with HEP and demonstrate improved muscle strength throughout trunk and core LTG Duration 10/15/22 Two Impairment pain thoracolumbar Impairment Pain as high as 6/10 limiting ability to stand, walk, and do usual activities Short Term Goal (STG) Decrease pain to no greater than 4/10 with all usual activities STG Duration 08/15/22 [facility] Goal (LTG) Decrease pain to no greater than 2/10 with patient able to resume more physical activities without difficulty LTG Duration 10/15/22 1 Impairment postural dysfunction Impairment excess thoracic kyphosis and lumbar lordosis Short Term Goal (STG) Patient to receive postural education and therapeutic exercises for postural correction STG Duration 08/15/22 Eggs Inspector Goal (LTG) Patient to demonstrate improved postural awareness statically and dynamically with functional movement and activities LTG Duration 10/15/22 Assessment Summary Assessment Improving postural awareness and understanding of HEP. Tacile and verbal cues for theraband row and shld ext initially, improved after practice. Denied significant pain today. Physical Therapy Plan Frequency and Duration Frequency of Treatment 2x/Week Duration of treatment (weeks) 12 Plan of Care Start Date 07/16/22 Plan of Care End Date 10/14/22 Therapeutic Interventions Therapeutic Interventions Manual Therapy,Patient/ Caregiver Education,Self-Care/ Home Management,Soft Tissue Mobilization,Therapeutic Activities,Therapeutic Exercises Modalities Electric Stimulation,Hot Packs ,Traction- Mechanical, Ultrasound Next Visit Focus/Plan Next Note Type Treatment Note Next Visit Plan Continue gentle progression of ther ex for postural correction, core strengthening , flexibility. Modalities and manual therapy PRN.
--- NOTE | 2022-07-29 17:09 | PT.OTN ---
Current Diagnoses Spinal stenosis, cervical region (07/29/22) Low back pain, unspecified (07/29/22) Pain in thoracic spine (07/29/22) Abnormal posture (07/29/22) Weakness (07/29/22) Physical Therapy Treatment Note PT-OP-A Visit Information Start: 07/15/22 16:45 Freq: Status: Active Protocol: Document 07/29/22 13:48 NBM (Rec: 07/29/22 14:36 [facility] [id number]) Out-Patient Physical Therapy Visit Information Visit Information Visit Type Treatment Note Visit Start Time 13:45 Visit Stop Time 14:23 Total Visit Minutes 38 Visit Number 5 Number of PLANT PROTECTION SUPERINTENDENT Visits 1 PT-OP-B Current Condition Start: 07/15/22 16:45 Freq: Status: Active Protocol: Document 07/18/22 12:55 SAK (Rec: 07/18/22 13:46 SAK [id number]) Current Condition History of Current Condition Onset Date 2-3 yrs ago Current Complaints mid back pain History of Current Condition gradual onset of pain mid back . No treatment for it; no exercises, no heat or ice. Takes Ibuprofen and Acetaminophen. Sleeps on side or back. Has just resumed doing exercises for shoulder and low back. Sits and lays down a lot. CAn't walk more than a few blocks due to hip and spinal pain. States middle glut doesn't fire, PT some helpful but didn't resolve issue, but pain is mostly throughout spine. Prior Treatments and Tests prior PT for RC, hip, gluts x-rays show excess kyphosis, and lots of arthritis per patient report, in Dr. Flanagan's office. Treatment Goals Patient/Caregiver Goals IMprove her posture, strength, and activity tolerance PT-OP-C Subjective Start: 07/15/22 16:45 Freq: Status: Active Protocol: Document 07/29/22 13:48 NBM (Rec: 07/29/22 14:36 NBM [id number]) OP-PT Subjective Patient Comments Patient Comments Pt states she has adjusted her seat in the car to a comfortable position and drives w/ her hands at the bottom of the wheel. She has been doing her exercises and notices an improvement. She is more mindful of standing up straighter and has decreased pain. PT-OP-D Balance Start: 07/15/22 16:45 Freq: Status: Active Protocol: Document 07/16/22 15:28 [facility] (Rec: 07/17/22 10:40 [facility] [id number]) OP-PT Balance Assessment Sitting Balance Static Sitting Balance Ability Good Dynamic Sitting Balance Ability Good Standing Balance Static Standing Balance Ability Fair Dynamic Standing Balance Ability Poor Standing Balance Comments encouraged patient to use cane or trekking poles due to her expressed fear of falling, difficulty with balance Garza Fall Scale Copyright Permission PT-OP-G Mobility & Gait Start: 07/15/22 16:45 Freq: Status: Active Protocol: Document 07/16/22 15:28 [facility] (Rec: 07/17/22 10:40 [facility] [id number]) OP Mobility Evaluation Bed Mobility Supine to and from Sit instrsucted in log roll for spinal protection, practice x 3 with improving performance with repeititoin OP Gait Assessment Gait Deviations General Gait Pattern Decreased Stride Length, Decreased Feet Clearance PT-OP-H Neuro Start: 07/15/22 16:45 Freq: Status: Active Protocol: Document 07/16/22 15:28 [facility] (Rec: 07/17/22 14:20 [facility] [id number]) Sensation Evaluation Gross Sensation Gross Sensation WNL PT-OP-J Posture/Palpation/Skin Start: 07/15/22 16:45 Freq: Status: Active Protocol: Document 07/16/22 15:28 [facility] (Rec: 07/17/22 14:20 [facility] [id number]) Posture Evaluation Position Standing Head/C-Spine Posture Forward Head T-Spine Posture Increased Kyphosis L-Spine Posture Increased Lordosis Shoulder Posture (L) Rounded,(R) Rounded Scapula Posture (L) Protracted,(R) Protracted Arm Posture (L) Internally Rotated,(R) Internally Rotated Palpation Assessment Location thoracolumbar paraspinals Palpation Location zachery Palpation Findings Soft Tissue Tightness, Tenderness PT-OP-K Range of Motion Start: 07/15/22 16:45 Freq: Status: Active Protocol: Document 07/16/22 15:28 [facility] (Rec: 07/17/22 14:20 [facility] [id number]) Lumbar Spine Range of Motion Lumbar Spine Active ROM Limitations Soft Tissue Tightness,Pain Comments moderately decreased all motions PT-OP-M Strength Start: 07/15/22 16:45 Freq: Status: Active Protocol: Document 07/16/22 15:28 [facility] (Rec: 07/17/22 14:20 [facility] [id number]) Trunk Strength Trunk Manual Muscle Testing Core Stabilization poor Comments Unable to do formal MMT due to pain Hip Strength Hip Manual Muscle Testing zachery Flexion (L2) 3+ Fair+ Extension (S1) 3+ Fair+ Abduction 3+ Fair+ Adduction 3+ Fair+ External Rotation 3+ Fair+ Internal Rotation 3+ Fair+ Comments limited by pain PT-OP-Q Treatments Start: 07/15/22 16:45 Freq: Status: Active Protocol: Document 07/29/22 13:48 NBM (Rec: 07/29/22 14:36 [facility] [id number]) Cardio Equipment Recumbent Stepper (Sci-Fit) Other Pt declined. Therapeutic Exercises Supine Exercises pec stretch Reps/Minutes 2x30 Comments pillows under arms overhead stretch Reps/Minutes 2x30 Comments pillow no longer needed under arms upper back relaxer Reps/Minutes 5 x zachery goal post Supine Exercise Name tactile cue to keep shoulders down Reps/Minutes 10x Comments emphasis on the external rot at should triangle stretch Supine Exercise Name triangle press Reps/Minutes 10x10 posture press Reps/Minutes 6-7x10 Standing Exercises row, shld ext Resistance L1 TB Reps/Minutes 10x5 Comments Tb anchor loop given and ex reviewed in doorway Self-Care/Home Management Treatment Education Patient Education Home Exercise Program Other Education Tb anchor loop given and standing rehana rows/ext ex reviewed in doorway. HEP reviewed. PT-OP-R Modalities Start: 07/15/22 16:45 Freq: Status: Active Protocol: Document 07/29/22 13:48 NBM (Rec: 07/29/22 14:36 [facility] [id number]) Hot Pack/Cold Pack Treatment Heat Location thoracolumbar spine Patient Position Hooklying Treatment Duration (minutes) 15 Patient Tolerance Good PT-OP-T Assessment and Plan Start: 07/15/22 16:45 Freq: Status: Active Protocol: Document 07/29/22 13:48 NBM (Rec: 07/29/22 14:36 [facility] [id number]) Physical Therapy Assessment Goals activity tolerance Impairment Oswestry disability index score 44% Short Term Goal (STG) Decrease Oswestry score to no greater than 30% as measure of improved activity tolerance and function STG Duration 08/15/22 [facility]iary Goal (LTG) Decrease Oswestry score to no greater than 20% as measur of improved activity tolerance and function in her day to day life. LTG Duration 10/15/22 weakness Impairment trunk and core muscle weakness Impairment weakness throughout trunk musculature Short Term Goal (STG) patient to be instructed in HEP for purposes of trunk and core strengthening STG Duration 08/15/22 Dynamiter Goal (LTG) Patient will be independent and compliant with HEP and demonstrate improved muscle strength throughout trunk and core LTG Duration 10/15/22 Two Impairment pain thoracolumbar Impairment Pain as high as 6/10 limiting ability to stand, walk, and do usual activities Short Term Goal (STG) Decrease pain to no greater than 4/10 with all usual activities STG Duration 08/15/22 [facility]itentiary Goal (LTG) Decrease pain to no greater than 2/10 with patient able to resume more physical activities without difficulty LTG Duration 10/15/22 1 Impairment postural dysfunction Impairment excess thoracic kyphosis and lumbar lordosis Short Term Goal (STG) Patient to receive postural education and therapeutic exercises for postural correction STG Duration 08/15/22 [facility]iary Goal (LTG) Patient to demonstrate improved postural awareness statically and dynamically with functional movement and activities LTG Duration 10/15/22 Assessment Summary Assessment Pt demonstrates improving postural awareness. She requires initial cues for shoulder depression w/ supine exercises then demonstrates improved self-correction w/ repetition. [place] loop for Theraband issued for posterior chain shoulder rows/ext ex and use reviewed in clinic. Physical Therapy Plan Frequency and Duration Frequency of Treatment 2x/Week Duration of treatment (weeks) 12 Plan of Care Start Date 07/16/22 Plan of Care End Date 10/14/22 Next Visit Focus/Plan Next Note Type Treatment Note Next Visit Plan Continue gentle progression of ther ex for postural correction, core strengthening , flexibility. Modalities and manual therapy PRN.
--- NOTE | 2022-08-06 08:22 | PT.OTN ---
Current Diagnoses Spinal stenosis, cervical region (08/06/22) Low back pain, unspecified (08/06/22) Pain in thoracic spine (08/06/22) Abnormal posture (08/06/22) Weakness (08/06/22) Physical Therapy Treatment Note PT-OP-A Visit Information Start: 07/15/22 16:45 Freq: Status: Active Protocol: Document 08/06/22 09:05 SAK (Rec: 08/06/22 09:49 [facility] [id number]) Out-Patient Physical Therapy Visit Information Visit Information Visit Type Treatment Note Visit Start Time 09:06 Visit Stop Time 09:56 Total Visit Minutes 50 Visit Number 6 Number of ELA TEACHER Visits 0 Precautions Precautions PMH: neck pain, left RC repair s/p fall, back pain, hip pain , balance dysfunction PT-OP-B Current Condition Start: 07/15/22 16:45 Freq: Status: Active Protocol: Document 07/18/22 12:55 SAK (Rec: 07/18/22 13:46 SAK [id number]) Current Condition History of Current Condition Onset Date 2-3 yrs ago Current Complaints mid back pain History of Current Condition gradual onset of pain mid back . No treatment for it; no exercises, no heat or ice. Takes Ibuprofen and Acetaminophen. Sleeps on side or back. Has just resumed doing exercises for shoulder and low back. Sits and lays down a lot. CAn't walk more than a few blocks due to hip and spinal pain. States middle glut doesn't fire, PT some helpful but didn't resolve issue, but pain is mostly throughout spine. Prior Treatments and Tests prior PT for RC, hip, gluts x-rays show excess kyphosis, and lots of arthritis per patient report, in Dr. Flanagan's office. Treatment Goals Patient/Caregiver Goals IMprove her posture, strength, and activity tolerance PT-OP-C Subjective Start: 07/15/22 16:45 Freq: Status: Active Protocol: Document 08/06/22 09:05 SAK (Rec: 08/06/22 09:49 SAK [id number]) OP-PT Subjective Patient Comments Patient Comments Has been feeling better except flew and rode shuttle all day yesterday, increase in pain PT-OP-D Balance Start: 07/15/22 16:45 Freq: Status: Active Protocol: Document 07/16/22 15:28 SAK (Rec: 07/17/22 10:40 [facility] [id number]) OP-PT Balance Assessment Sitting Balance Static Sitting Balance Ability Good Dynamic Sitting Balance Ability Good Standing Balance Static Standing Balance Ability Fair Dynamic Standing Balance Ability Poor Standing Balance Comments encouraged patient to use cane or trekking poles due to her expressed fear of falling, difficulty with balance Garza Fall Scale Copyright Permission PT-OP-G Mobility & Gait Start: 07/15/22 16:45 Freq: Status: Active Protocol: Document 07/16/22 15:28 [facility] (Rec: 07/17/22 10:40 [facility] [id number]) OP Mobility Evaluation Bed Mobility Supine to and from Sit instrsucted in log roll for spinal protection, practice x 3 with improving performance with repeititoin OP Gait Assessment Gait Deviations General Gait Pattern Decreased Stride Length, Decreased Feet Clearance PT-OP-H Neuro Start: 07/15/22 16:45 Freq: Status: Active Protocol: Document 07/16/22 15:28 [facility] (Rec: 07/17/22 14:20 [facility] [id number]) Sensation Evaluation Gross Sensation Gross Sensation WNL PT-OP-J Posture/Palpation/Skin Start: 07/15/22 16:45 Freq: Status: Active Protocol: Document 07/16/22 15:28 [facility] (Rec: 07/17/22 14:20 [facility] [id number]) Posture Evaluation Position Standing Head/C-Spine Posture Forward Head T-Spine Posture Increased Kyphosis L-Spine Posture Increased Lordosis Shoulder Posture (L) Rounded,(R) Rounded Scapula Posture (L) Protracted,(R) Protracted Arm Posture (L) Internally Rotated,(R) Internally Rotated Palpation Assessment Location thoracolumbar paraspinals Palpation Location zachery Palpation Findings Soft Tissue Tightness, Tenderness PT-OP-K Range of Motion Start: 07/15/22 16:45 Freq: Status: Active Protocol: Document 07/16/22 15:28 [facility] (Rec: 07/17/22 14:20 [facility] [id number]) Lumbar Spine Range of Motion Lumbar Spine Active ROM Limitations Soft Tissue Tightness,Pain Comments moderately decreased all motions PT-OP-M Strength Start: 07/15/22 16:45 Freq: Status: Active Protocol: Document 07/16/22 15:28 [facility] (Rec: 07/17/22 14:20 [facility] [id number]) Trunk Strength Trunk Manual Muscle Testing Core Stabilization poor Comments Unable to do formal MMT due to pain Hip Strength Hip Manual Muscle Testing zachery Flexion (L2) 3+ Fair+ Extension (S1) 3+ Fair+ Abduction 3+ Fair+ Adduction 3+ Fair+ External Rotation 3+ Fair+ Internal Rotation 3+ Fair+ Comments limited by pain PT-OP-Q Treatments Start: 07/15/22 16:45 Freq: Status: Active Protocol: Document 08/06/22 09:05 [facility] (Rec: 08/06/22 09:49 [facility] [id number]) Cardio Equipment Recumbent Stepper (Sci-Fit) Other Pt declined. Therapeutic Exercises Supine Exercises pec stretch Reps/Minutes 2x30 Comments no pillows, cues for deep breathing overhead stretch Reps/Minutes 2x30 Comments pillow no longer needed under arms upper back relaxer Reps/Minutes 5 x zachery goal post Supine Exercise Name tactile cue to keep shoulders down Reps/Minutes 10x Comments emphasis on the external rot at should triangle stretch Supine Exercise Name triangle press Reps/Minutes 10x10 posture press Reps/Minutes 5x10 Sidelying Exercises open book Sidelying Exercise Name active first, then hold for stretch with deep breathing Reps/Minutes 5x Comments gentle Standing Exercises standing pec stretch Reps/Minutes 2x30 Comments gentle wall posture Standing Exercise Name with AROM shoulder ER Reps/Minutes 5x5 row, shld ext Resistance L1 TB Reps/Minutes 10x5 Comments verbal and tactile cues, cues for 5s hold Self-Care/Home Management Treatment Education Patient Education Home Exercise Program Other Education HEP reviewed and updated. Cues for neutral spine with all supine ex PT-OP-R Modalities Start: 07/15/22 16:45 Freq: Status: Active Protocol: Document 08/06/22 09:05 [facility] (Rec: 08/06/22 09:49 [facility] [id number]) Hot Pack/Cold Pack Treatment Heat Location thoracolumbar spine Patient Position Hooklying Treatment Duration (minutes) 15 Patient Tolerance Good PT-OP-T Assessment and Plan Start: 07/15/22 16:45 Freq: Status: Active Protocol: Document 08/06/22 09:05 [facility] (Rec: 08/06/22 09:49 [facility] [id number]) Physical Therapy Assessment Impairments Impairments Activity Tolerance,Pain, Posture,Strength Goals activity tolerance Impairment Oswestry disability index score 44% Short Term Goal (STG) Decrease Oswestry score to no greater than 30% as measure of improved activity tolerance and function STG Duration 08/15/22 Snowmaker Goal (LTG) Decrease Oswestry score to no greater than 20% as measur of improved activity tolerance and function in her day to day life. LTG Duration 10/15/22 weakness Impairment trunk and core muscle weakness Impairment weakness throughout trunk musculature Short Term Goal (STG) patient to be instructed in HEP for purposes of trunk and core strengthening STG Duration 08/15/22 Mcc Goal (LTG) Patient will be independent and compliant with HEP and demonstrate improved muscle strength throughout trunk and core LTG Duration 10/15/22 Two Impairment pain thoracolumbar Impairment Pain as high as 6/10 limiting ability to stand, walk, and do usual activities Short Term Goal (STG) Decrease pain to no greater than 4/10 with all usual activities STG Duration 08/15/22 Snowmaker Goal (LTG) Decrease pain to no greater than 2/10 with patient able to resume more physical activities without difficulty LTG Duration 10/15/22 1 Impairment postural dysfunction Impairment excess thoracic kyphosis and lumbar lordosis Short Term Goal (STG) Patient to receive postural education and therapeutic exercises for postural correction STG Duration 08/15/22 Mcc Goal (LTG) Patient to demonstrate improved postural awareness statically and dynamically with functional movement and activities LTG Duration 10/15/22 Assessment Summary Assessment Improving flexibility and postural awareness. moderate cues for holding and inc scapular activation. with theraband ex and Physical Therapy Plan Frequency and Duration Frequency of Treatment 2x/Week Duration of treatment (weeks) 12 Plan of Care Start Date 07/16/22 Plan of Care End Date 10/14/22 Therapeutic Interventions Therapeutic Interventions Manual Therapy,Patient/ Caregiver Education,Self-Care/ Home Management,Soft Tissue Mobilization,Therapeutic Activities,Therapeutic Exercises Modalities Electric Stimulation,Hot Packs ,Traction- Mechanical, Ultrasound Next Visit Focus/Plan Next Note Type Treatment Note Next Visit Plan Continue gentle progression of ther ex for postural correction, core strengthening , flexibility. Modalities and manual therapy PRN.
--- NOTE | 2022-08-09 10:46 | PT.OTN ---
Current Diagnoses Spinal stenosis, cervical region (08/09/22) Low back pain, unspecified (08/09/22) Pain in thoracic spine (08/09/22) Abnormal posture (08/09/22) Weakness (08/09/22) Physical Therapy Treatment Note PT-OP-A Visit Information Start: 07/15/22 16:45 Freq: Status: Active Protocol: Document 08/09/22 09:57 [facility] (Rec: 08/09/22 10:46 [facility] [id number]) Out-Patient Physical Therapy Visit Information Visit Information Visit Type Treatment Note Visit Start Time 10:00 Visit Stop Time 10:45 Total Visit Minutes 45 Visit Number 7 Number of INSTRUMENTATION SPECIALIST Visits 1 Precautions Precautions PMH: neck pain, left RC repair s/p fall, back pain, hip pain , balance dysfunction PT-OP-B Current Condition Start: 07/15/22 16:45 Freq: Status: Active Protocol: Document 07/18/22 12:55 SAK (Rec: 07/18/22 13:46 SAK [id number]) Current Condition History of Current Condition Onset Date 2-3 yrs ago Current Complaints mid back pain History of Current Condition gradual onset of pain mid back . No treatment for it; no exercises, no heat or ice. Takes Ibuprofen and Acetaminophen. Sleeps on side or back. Has just resumed doing exercises for shoulder and low back. Sits and lays down a lot. CAn't walk more than a few blocks due to hip and spinal pain. States middle glut doesn't fire, PT some helpful but didn't resolve issue, but pain is mostly throughout spine. Prior Treatments and Tests prior PT for RC, hip, gluts x-rays show excess kyphosis, and lots of arthritis per patient report, in Dr. Flanagan's office. Treatment Goals Patient/Caregiver Goals IMprove her posture, strength, and activity tolerance PT-OP-C Subjective Start: 07/15/22 16:45 Freq: Status: Active Protocol: Document 08/09/22 09:57 NBM (Rec: 08/09/22 10:46 [facility] [id number]) OP-PT Subjective Patient Comments Patient Comments Pt cancelled 08/16/22 appointment because she is having a skin surgery on 08/15 . She was able to do her ex in [place] PT-OP-D Balance Start: 07/15/22 16:45 Freq: Status: Active Protocol: Document 07/16/22 15:28 [facility] (Rec: 07/17/22 10:40 [facility] [id number]) OP-PT Balance Assessment Sitting Balance Static Sitting Balance Ability Good Dynamic Sitting Balance Ability Good Standing Balance Static Standing Balance Ability Fair Dynamic Standing Balance Ability Poor Standing Balance Comments encouraged patient to use cane or trekking poles due to her expressed fear of falling, difficulty with balance Garza Fall Scale Copyright Permission PT-OP-G Mobility & Gait Start: 07/15/22 16:45 Freq: Status: Active Protocol: Document 07/16/22 15:28 [facility] (Rec: 07/17/22 10:40 [facility] [id number]) OP Mobility Evaluation Bed Mobility Supine to and from Sit instrsucted in log roll for spinal protection, practice x 3 with improving performance with repeititoin OP Gait Assessment Gait Deviations General Gait Pattern Decreased Stride Length, Decreased Feet Clearance PT-OP-H Neuro Start: 07/15/22 16:45 Freq: Status: Active Protocol: Document 07/16/22 15:28 [facility] (Rec: 07/17/22 14:20 [facility] [id number]) Sensation Evaluation Gross Sensation Gross Sensation WNL PT-OP-J Posture/Palpation/Skin Start: 07/15/22 16:45 Freq: Status: Active Protocol: Document 07/16/22 15:28 [facility] (Rec: 07/17/22 14:20 [facility] [id number]) Posture Evaluation Position Standing Head/C-Spine Posture Forward Head T-Spine Posture Increased Kyphosis L-Spine Posture Increased Lordosis Shoulder Posture (L) Rounded,(R) Rounded Scapula Posture (L) Protracted,(R) Protracted Arm Posture (L) Internally Rotated,(R) Internally Rotated Palpation Assessment Location thoracolumbar paraspinals Palpation Location zachery Palpation Findings Soft Tissue Tightness, Tenderness PT-OP-K Range of Motion Start: 07/15/22 16:45 Freq: Status: Active Protocol: Document 07/16/22 15:28 [facility] (Rec: 07/17/22 14:20 [facility] [id number]) Lumbar Spine Range of Motion Lumbar Spine Active ROM Limitations Soft Tissue Tightness,Pain Comments moderately decreased all motions PT-OP-M Strength Start: 07/15/22 16:45 Freq: Status: Active Protocol: Document 07/16/22 15:28 [facility] (Rec: 07/17/22 14:20 [facility] [id number]) Trunk Strength Trunk Manual Muscle Testing Core Stabilization poor Comments Unable to do formal MMT due to pain Hip Strength Hip Manual Muscle Testing zachery Flexion (L2) 3+ Fair+ Extension (S1) 3+ Fair+ Abduction 3+ Fair+ Adduction 3+ Fair+ External Rotation 3+ Fair+ Internal Rotation 3+ Fair+ Comments limited by pain PT-OP-Q Treatments Start: 07/15/22 16:45 Freq: Status: Active Protocol: Document 08/09/22 09:57 [facility] (Rec: 08/09/22 10:46 [facility] [id number]) Therapeutic Exercises Supine Exercises pec stretch Reps/Minutes 2x30 Comments no pillows, cues for deep breathing overhead stretch Reps/Minutes 2x30 Comments pillow no longer needed under arms upper back relaxer Reps/Minutes 5 x zachery goal post Supine Exercise Name tactile cue to keep shoulders down Reps/Minutes 10x Comments emphasis on the external rot at should triangle stretch Supine Exercise Name triangle press Reps/Minutes 10x10 Comments pillows no longer needed under elbows posture press Reps/Minutes 5x10 Sidelying Exercises open book Sidelying Exercise Name active first, then hold for stretch with deep breathing Reps/Minutes 10x Comments gentle Standing Exercises standing pec stretch Reps/Minutes 2x30 Comments gentle, scap setting first wall posture Standing Exercise Name with AROM shoulder ER Reps/Minutes 5x5 row, shld ext Resistance L1 TB Reps/Minutes 10x5 Comments verbal and tactile cues, cues for 5s hold PT-OP-R Modalities Start: 07/15/22 16:45 Freq: Status: Active Protocol: Document 08/09/22 09:57 [facility] (Rec: 08/09/22 10:46 [facility] [id number]) Hot Pack/Cold Pack Treatment Heat Location thoracolumbar spine Patient Position Hooklying Treatment Duration (minutes) 15 Patient Tolerance Good PT-OP-T Assessment and Plan Start: 07/15/22 16:45 Freq: Status: Active Protocol: Document 08/09/22 09:57 [facility] (Rec: 08/09/22 10:46 [facility] [id number]) Physical Therapy Assessment Goals activity tolerance Impairment Oswestry disability index score 44% Short Term Goal (STG) Decrease Oswestry score to no greater than 30% as measure of improved activity tolerance and function STG Duration 08/15/22 Care Home Goal (LTG) Decrease Oswestry score to no greater than 20% as measur of improved activity tolerance and function in her day to day life. LTG Duration 10/15/22 weakness Impairment trunk and core muscle weakness Impairment weakness throughout trunk musculature Short Term Goal (STG) patient to be instructed in HEP for purposes of trunk and core strengthening STG Duration 08/15/22 Care Home Goal (LTG) Patient will be independent and compliant with HEP and demonstrate improved muscle strength throughout trunk and core LTG Duration 10/15/22 Two Impairment pain thoracolumbar Impairment Pain as high as 6/10 limiting ability to stand, walk, and do usual activities Short Term Goal (STG) Decrease pain to no greater than 4/10 with all usual activities STG Duration 08/15/22 Technical Illustrator Goal (LTG) Decrease pain to no greater than 2/10 with patient able to resume more physical activities without difficulty LTG Duration 10/15/22 1 Impairment postural dysfunction Impairment excess thoracic kyphosis and lumbar lordosis Short Term Goal (STG) Patient to receive postural education and therapeutic exercises for postural correction STG Duration 08/15/22 Care Home Goal (LTG) Patient to demonstrate improved postural awareness statically and dynamically with functional movement and activities LTG Duration 10/15/22 Assessment Summary Assessment Pt requires consistent cues for scapular setting due to Upper Trapezius overactivation . She demonstrates improved self-awareness of upright posture and improved understanding of scapular depression to improve posture and upper extremity functional mobility and reduce pain. Physical Therapy Plan Frequency and Duration Frequency of Treatment 2x/Week Duration of treatment (weeks) 12 Plan of Care Start Date 07/16/22 Plan of Care End Date 10/14/22 Therapeutic Interventions Therapeutic Interventions Manual Therapy,Patient/ Caregiver Education,Self-Care/ Home Management,Soft Tissue Mobilization,Therapeutic Activities,Therapeutic Exercises Modalities Electric Stimulation,Hot Packs ,Traction- Mechanical, Ultrasound Next Visit Focus/Plan Next Note Type Treatment Note Next Visit Plan Continue gentle progression of ther ex for postural correction, core strengthening , flexibility. Modalities and manual therapy PRN.
--- NOTE | 2022-08-13 09:01 | PT.OTN ---
Current Diagnoses Spinal stenosis, cervical region (08/13/22) Low back pain, unspecified (08/13/22) Pain in thoracic spine (08/13/22) Abnormal posture (08/13/22) Weakness (08/13/22) Physical Therapy Treatment Note PT-OP-A Visit Information Start: 07/15/22 16:45 Freq: Status: Active Protocol: Document 08/13/22 08:13 SAK (Rec: 08/13/22 09:01 [facility] [id number]) Out-Patient Physical Therapy Visit Information Visit Information Visit Type Treatment Note Visit Start Time 08:15 Visit Stop Time 08:15 Total Visit Minutes 50 Visit Number 8 Number of PRECISE WINDER Visits 0 Precautions Precautions PMH: neck pain, left RC repair s/p fall, back pain, hip pain , balance dysfunction PT-OP-B Current Condition Start: 07/15/22 16:45 Freq: Status: Active Protocol: Document 07/18/22 12:55 SAK (Rec: 07/18/22 13:46 SAK [id number]) Current Condition History of Current Condition Onset Date 2-3 yrs ago Current Complaints mid back pain History of Current Condition gradual onset of pain mid back . No treatment for it; no exercises, no heat or ice. Takes Ibuprofen and Acetaminophen. Sleeps on side or back. Has just resumed doing exercises for shoulder and low back. Sits and lays down a lot. CAn't walk more than a few blocks due to hip and spinal pain. States middle glut doesn't fire, PT some helpful but didn't resolve issue, but pain is mostly throughout spine. Prior Treatments and Tests prior PT for RC, hip, gluts x-rays show excess kyphosis, and lots of arthritis per patient report, in Dr. Flanagan's office. Treatment Goals Patient/Caregiver Goals IMprove her posture, strength, and activity tolerance PT-OP-C Subjective Start: 07/15/22 16:45 Freq: Status: Active Protocol: Document 08/13/22 08:13 SAK (Rec: 08/13/22 09:01 [facility] [id number]) OP-PT Subjective Patient Comments Patient Comments Amiclar afternoon started having muscle cramping left side of spine, has continued to have pain, initially couldn 't get comfortable at all. Has used heat. Has improved but persists. PT-OP-D Balance Start: 07/15/22 16:45 Freq: Status: Active Protocol: Document 07/16/22 15:28 [facility] (Rec: 07/17/22 10:40 [facility] [id number]) OP-PT Balance Assessment Sitting Balance Static Sitting Balance Ability Good Dynamic Sitting Balance Ability Good Standing Balance Static Standing Balance Ability Fair Dynamic Standing Balance Ability Poor Standing Balance Comments encouraged patient to use cane or trekking poles due to her expressed fear of falling, difficulty with balance Garza Fall Scale Copyright Permission PT-OP-G Mobility & Gait Start: 07/15/22 16:45 Freq: Status: Active Protocol: Document 07/16/22 15:28 [facility] (Rec: 07/17/22 10:40 [facility] [id number]) OP Mobility Evaluation Bed Mobility Supine to and from Sit instrsucted in log roll for spinal protection, practice x 3 with improving performance with repeititoin OP Gait Assessment Gait Deviations General Gait Pattern Decreased Stride Length, Decreased Feet Clearance PT-OP-H Neuro Start: 07/15/22 16:45 Freq: Status: Active Protocol: Document 07/16/22 15:28 [facility] (Rec: 07/17/22 14:20 [facility] [id number]) Sensation Evaluation Gross Sensation Gross Sensation WNL PT-OP-J Posture/Palpation/Skin Start: 07/15/22 16:45 Freq: Status: Active Protocol: Document 07/16/22 15:28 [facility] (Rec: 07/17/22 14:20 [facility] [id number]) Posture Evaluation Position Standing Head/C-Spine Posture Forward Head T-Spine Posture Increased Kyphosis L-Spine Posture Increased Lordosis Shoulder Posture (L) Rounded,(R) Rounded Scapula Posture (L) Protracted,(R) Protracted Arm Posture (L) Internally Rotated,(R) Internally Rotated Palpation Assessment Location thoracolumbar paraspinals Palpation Location zachery Palpation Findings Soft Tissue Tightness, Tenderness PT-OP-K Range of Motion Start: 07/15/22 16:45 Freq: Status: Active Protocol: Document 07/16/22 15:28 [facility] (Rec: 07/17/22 14:20 [facility] [id number]) Lumbar Spine Range of Motion Lumbar Spine Active ROM Limitations Soft Tissue Tightness,Pain Comments moderately decreased all motions PT-OP-M Strength Start: 07/15/22 16:45 Freq: Status: Active Protocol: Document 07/16/22 15:28 [facility] (Rec: 07/17/22 14:20 [facility] [id number]) Trunk Strength Trunk Manual Muscle Testing Core Stabilization poor Comments Unable to do formal MMT due to pain Hip Strength Hip Manual Muscle Testing zachery Flexion (L2) 3+ Fair+ Extension (S1) 3+ Fair+ Abduction 3+ Fair+ Adduction 3+ Fair+ External Rotation 3+ Fair+ Internal Rotation 3+ Fair+ Comments limited by pain PT-OP-Q Treatments Start: 07/15/22 16:45 Freq: Status: Active Protocol: Document 08/13/22 08:13 [facility] (Rec: 08/13/22 09:01 [facility] [id number]) Therapeutic Exercises Sidelying Exercises open book Sidelying Exercise Name active first, then hold for stretch with deep breathing Reps/Minutes 5x Comments gentle, dec ROM Sitting Exercises UT, LS stretch Reps/Minutes 2x5 Standing Exercises wall roll up Reps/Minutes 5x wall posture Standing Exercise Name with palms forward Reps/Minutes 5x5 row, shld ext Resistance L1 TB Reps/Minutes 10x5 Comments verbal and tactile cues, cues for 5s hold Manual Therapy Treatment Soft Tissue Mobilization thoracic paraspinals, rhomboids, LS Mobilization Type Myofascial Release,Sustained Pressure Intensity/Depth Moderate Body Position Sidelying Self-Care/Home Management Treatment Education Patient Education Home Exercise Program,Pain Management,Posture Other Education cues for dec intensity as needed due to inc soreness PT-OP-R Modalities Start: 07/15/22 16:45 Freq: Status: Active Protocol: Document 08/13/22 08:13 [facility] (Rec: 08/13/22 09:01 [facility] [id number]) Hot Pack/Cold Pack Treatment Heat Location thoracolumbar spine Patient Position Hooklying Treatment Duration (minutes) 15 Patient Tolerance Good PT-OP-T Assessment and Plan Start: 07/15/22 16:45 Freq: Status: Active Protocol: Document 08/13/22 08:13 [facility] (Rec: 08/13/22 09:01 [facility] [id number]) Physical Therapy Assessment Impairments Impairments Activity Tolerance,Pain, Posture,Strength Goals activity tolerance Impairment Oswestry disability index score 44% Short Term Goal (STG) Decrease Oswestry score to no greater than 30% as measure of improved activity tolerance and function STG Duration 08/15/22 Jail Goal (LTG) Decrease Oswestry score to no greater than 20% as measur of improved activity tolerance and function in her day to day life. LTG Duration 10/15/22 weakness Impairment trunk and core muscle weakness Impairment weakness throughout trunk musculature Short Term Goal (STG) patient to be instructed in HEP for purposes of trunk and core strengthening STG Duration 08/15/22 Brand Strategy Manager Goal (LTG) Patient will be independent and compliant with HEP and demonstrate improved muscle strength throughout trunk and core LTG Duration 10/15/22 Two Impairment pain thoracolumbar Impairment Pain as high as 6/10 limiting ability to stand, walk, and do usual activities Short Term Goal (STG) Decrease pain to no greater than 4/10 with all usual activities STG Duration 08/15/22 Brand Strategy Manager Goal (LTG) Decrease pain to no greater than 2/10 with patient able to resume more physical activities without difficulty LTG Duration 10/15/22 1 Impairment postural dysfunction Impairment excess thoracic kyphosis and lumbar lordosis Short Term Goal (STG) Patient to receive postural education and therapeutic exercises for postural correction STG Duration 08/15/22 Jail Goal (LTG) Patient to demonstrate improved postural awareness statically and dynamically with functional movement and activities LTG Duration 10/15/22 Physical Therapy Plan Frequency and Duration Frequency of Treatment 2x/Week Duration of treatment (weeks) 12 Plan of Care Start Date 07/16/22 Plan of Care End Date 10/14/22 Therapeutic Interventions Therapeutic Interventions Manual Therapy,Patient/ Caregiver Education,Self-Care/ Home Management,Soft Tissue Mobilization,Therapeutic Activities,Therapeutic Exercises Modalities Electric Stimulation,Hot Packs ,Traction- Mechanical, Ultrasound Next Visit Focus/Plan Next Note Type Treatment Note Next Visit Plan Continue gentle progression of ther ex for postural correction, core strengthening , flexibility. Modalities and manual therapy PRN.
--- NOTE | 2022-08-21 16:05 | PT.OTN ---
Current Diagnoses Spinal stenosis, cervical region (08/21/22) Low back pain, unspecified (08/21/22) Pain in thoracic spine (08/21/22) Abnormal posture (08/21/22) Weakness (08/21/22) Physical Therapy Treatment Note PT-OP-A Visit Information Start: 07/15/22 16:45 Freq: Status: Active Protocol: Document 08/21/22 15:10 SAK (Rec: 08/21/22 16:05 [facility] [id number]) Out-Patient Physical Therapy Visit Information Visit Information Visit Type Treatment Note Visit Start Time 15:15 Visit Stop Time 16:10 Total Visit Minutes 55 Visit Number 9 Number of [employer]ICER Visits 0 Precautions Precautions PMH: neck pain, left RC repair s/p fall, back pain, hip pain , balance dysfunction PT-OP-B Current Condition Start: 07/15/22 16:45 Freq: Status: Active Protocol: Document 07/18/22 12:55 SAK (Rec: 07/18/22 13:46 SAK [id number]) Current Condition History of Current Condition Onset Date 2-3 yrs ago Current Complaints mid back pain History of Current Condition gradual onset of pain mid back . No treatment for it; no exercises, no heat or ice. Takes Ibuprofen and Acetaminophen. Sleeps on side or back. Has just resumed doing exercises for shoulder and low back. Sits and lays down a lot. CAn't walk more than a few blocks due to hip and spinal pain. States middle glut doesn't fire, PT some helpful but didn't resolve issue, but pain is mostly throughout spine. Prior Treatments and Tests prior PT for RC, hip, gluts x-rays show excess kyphosis, and lots of arthritis per patient report, in Dr. Flanagan's office. Treatment Goals Patient/Caregiver Goals IMprove her posture, strength, and activity tolerance PT-OP-C Subjective Start: 07/15/22 16:45 Freq: Status: Active Protocol: Document 08/21/22 15:10 SAK (Rec: 08/21/22 16:05 [facility] [id number]) OP-PT Subjective Patient Comments Patient Comments Feeling better today vs last time at PT PT-OP-D Balance Start: 07/15/22 16:45 Freq: Status: Active Protocol: Document 07/16/22 15:28 SAK (Rec: 07/17/22 10:40 [facility]AK [id number]) OP-PT Balance Assessment Sitting Balance Static Sitting Balance Ability Good Dynamic Sitting Balance Ability Good Standing Balance Static Standing Balance Ability Fair Dynamic Standing Balance Ability Poor Standing Balance Comments encouraged patient to use cane or trekking poles due to her expressed fear of falling, difficulty with balance Garza Fall Scale Copyright Permission PT-OP-G Mobility & Gait Start: 07/15/22 16:45 Freq: Status: Active Protocol: Document 07/16/22 15:28 [facility] (Rec: 07/17/22 10:40 [facility] [id number]) OP Mobility Evaluation Bed Mobility Supine to and from Sit instrsucted in log roll for spinal protection, practice x 3 with improving performance with repeititoin OP Gait Assessment Gait Deviations General Gait Pattern Decreased Stride Length, Decreased Feet Clearance PT-OP-H Neuro Start: 07/15/22 16:45 Freq: Status: Active Protocol: Document 07/16/22 15:28 [facility] (Rec: 07/17/22 14:20 [facility] [id number]) Sensation Evaluation Gross Sensation Gross Sensation WNL PT-OP-J Posture/Palpation/Skin Start: 07/15/22 16:45 Freq: Status: Active Protocol: Document 07/16/22 15:28 [facility] (Rec: 07/17/22 14:20 [facility] [id number]) Posture Evaluation Position Standing Head/C-Spine Posture Forward Head T-Spine Posture Increased Kyphosis L-Spine Posture Increased Lordosis Shoulder Posture (L) Rounded,(R) Rounded Scapula Posture (L) Protracted,(R) Protracted Arm Posture (L) Internally Rotated,(R) Internally Rotated Palpation Assessment Location thoracolumbar paraspinals Palpation Location zachery Palpation Findings Soft Tissue Tightness, Tenderness PT-OP-K Range of Motion Start: 07/15/22 16:45 Freq: Status: Active Protocol: Document 07/16/22 15:28 [facility] (Rec: 07/17/22 14:20 [facility] [id number]) Lumbar Spine Range of Motion Lumbar Spine Active ROM Limitations Soft Tissue Tightness,Pain Comments moderately decreased all motions PT-OP-M Strength Start: 07/15/22 16:45 Freq: Status: Active Protocol: Document 07/16/22 15:28 [facility] (Rec: 07/17/22 14:20 [facility] [id number]) Trunk Strength Trunk Manual Muscle Testing Core Stabilization poor Comments Unable to do formal MMT due to pain Hip Strength Hip Manual Muscle Testing zachery Flexion (L2) 3+ Fair+ Extension (S1) 3+ Fair+ Abduction 3+ Fair+ Adduction 3+ Fair+ External Rotation 3+ Fair+ Internal Rotation 3+ Fair+ Comments limited by pain PT-OP-Q Treatments Start: 07/15/22 16:45 Freq: Status: Active Protocol: Document 08/21/22 15:10 [facility] (Rec: 08/21/22 16:05 [facility] [id number]) Therapeutic Exercises Supine Exercises setmental bridge Reps/Minutes 10x5 pec stretch Reps/Minutes 2x30 Comments no pillows, cues for deep breathing overhead stretch Reps/Minutes 2x30 Comments pillow no longer needed under arms upper back relaxer Reps/Minutes 5 x zachery goal post Supine Exercise Name tactile cue to keep shoulders down Reps/Minutes 10x Comments emphasis on the external rot at should triangle stretch Supine Exercise Name triangle press Reps/Minutes 10x10 Comments pillows no longer needed under elbows posture press Reps/Minutes 5x10 Sidelying Exercises open book Sidelying Exercise Name active first, then hold for stretch with deep breathing Reps/Minutes 5x Comments gentle, dec ROM Standing Exercises wall roll up Reps/Minutes 5x wall posture Standing Exercise Name with palms forward Reps/Minutes 5x5 row, shld ext Resistance L1 TB Reps/Minutes 10x5 Comments verbal and tactile cues, cues for 5s hold Self-Care/Home Management Treatment Education Patient Education Home Exercise Program,Pain Management,Posture Other Education updated written HO adding segmental bridge and wall roll up PT-OP-R Modalities Start: 07/15/22 16:45 Freq: Status: Active Protocol: Document 08/21/22 15:10 [facility] (Rec: 08/21/22 16:05 [facility] [id number]) Hot Pack/Cold Pack Treatment Heat Location thoracolumbar spine Patient Position Hooklying Treatment Duration (minutes) 15 Patient Tolerance Good PT-OP-T Assessment and Plan Start: 07/15/22 16:45 Freq: Status: Active Protocol: Document 08/21/22 15:10 [facility] (Rec: 08/21/22 16:05 [facility] [id number]) Physical Therapy Assessment Impairments Impairments Activity Tolerance,Pain, Posture,Strength Goals activity tolerance Impairment Oswestry disability index score 44% Short Term Goal (STG) Decrease Oswestry score to no greater than 30% as measure of improved activity tolerance and function 08/21/22: good goal progress STG Duration 08/15/22 Senior Care Goal (LTG) Decrease Oswestry score to no greater than 20% as measur of improved activity tolerance and function in her day to day life. LTG Duration 10/15/22 weakness Impairment trunk and core muscle weakness Impairment weakness throughout trunk musculature Short Term Goal (STG) patient to be instructed in HEP for purposes of trunk and core strengthening 08/15/22: ongoing STG Duration 08/15/22 Fisher Trap Goal (LTG) Patient will be independent and compliant with HEP and demonstrate improved muscle strength throughout trunk and core LTG Duration 10/15/22 Two Impairment pain thoracolumbar Impairment Pain as high as 6/10 limiting ability to stand, walk, and do usual activities Short Term Goal (STG) Decrease pain to no greater than 4/10 with all usual activities 08/15/22: good goal progress STG Duration 08/15/22 [place] Trap Goal (LTG) Decrease pain to no greater than 2/10 with patient able to resume more physical activities without difficulty LTG Duration 10/15/22 1 Impairment postural dysfunction Impairment excess thoracic kyphosis and lumbar lordosis Short Term Goal (STG) Patient to receive postural education and therapeutic exercises for postural correction 08/21/22: good goal progress STG Duration 08/15/22 Fisher Trap Goal (LTG) Patient to demonstrate improved postural awareness statically and dynamically with functional movement and activities 08/21/22: goal progress LTG Duration 10/15/22 Assessment Summary Assessment Patient demonstrating improving understanding of neutral alignment and postural correction exercises, cues for tall posture helpful vs positioning ribcage over pelvis. Updated [facility] Physical Therapy Plan Frequency and Duration Frequency of Treatment 2x/Week Duration of treatment (weeks) 12 Plan of Care Start Date 07/16/22 Plan of Care End Date 10/14/22 Therapeutic Interventions Therapeutic Interventions Manual Therapy,Patient/ Caregiver Education,Self-Care/ Home Management,Soft Tissue Mobilization,Therapeutic Activities,Therapeutic Exercises Modalities Electric Stimulation,Hot Packs ,Traction- Mechanical, Ultrasound Next Visit Focus/Plan Next Note Type Progress Note Next Visit Plan Continue gentle progression of ther ex for postural correction, core strengthening , flexibility. Modalities and manual therapy PRN.
--- NOTE | 2022-08-26 12:30 | PT.OTN ---
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 No treatment for it; no exercises, no heat or ice. Takes Ibuprofen and Acetaminophen. Sleeps on side or back. Has just resumed doing exercises for shoulder and low back. Sits and lays down a lot. CAn't walk more than a few blocks due to hip and spinal pain. States middle glut doesn't fire, PT some helpful but didn't resolve issue, but pain is mostly throughout spine. Prior Treatments and Tests prior PT for RC, hip, gluts x-rays show excess kyphosis, and lots of arthritis per patient report, in Dr. Flanagan's office. Treatment Goals Patient/Caregiver Goals IMprove her posture, strength, and activity tolerance PT-OP-C Subjective Start: 07/15/22 16:45 Freq: Status: Active Protocol: Document 08/26/22 11:18 NBM (Rec: 08/26/22 12:54 NBM [id number]) OP-PT Subjective Patient Comments Patient Comments Pt's back is not as bothersome as it was and we've seen improvement. Pt states she was chopping vegetables and consciously lowered her shoulders PT-OP-D Balance Start: 07/15/22 16:45 Freq: Status: Active Protocol: Document 07/16/22 15:28 [facility] (Rec: 07/17/22 10:40 [facility] [id number]) OP-PT Balance Assessment Sitting Balance Static Sitting Balance Ability Good Dynamic Sitting Balance Ability Good Standing Balance Static Standing Balance Ability Fair Dynamic Standing Balance Ability Poor Standing Balance Comments encouraged patient to use cane or trekking poles due to her expressed fear of falling, difficulty with balance Garza Fall Scale Copyright Permission PT-OP-G Mobility & Gait Start: 07/15/22 16:45 Freq: Status: Active Protocol: Document 07/16/22 15:28 [facility] (Rec: 07/17/22 10:40 [facility] [id number]) OP Mobility Evaluation Bed Mobility Supine to and from Sit instrsucted in log roll for spinal protection, practice x 3 with improving performance with repeititoin OP Gait Assessment Gait Deviations General Gait Pattern Decreased Stride Length, Decreased Feet Clearance PT-OP-H Neuro Start: 07/15/22 16:45 Freq: Status: Active Protocol: Document 07/16/22 15:28 [facility] (Rec: 07/17/22 14:20 [facility] [id number]) Sensation Evaluation Gross Sensation Gross Sensation WNL PT-OP-J Posture/Palpation/Skin Start: 07/15/22 16:45 Freq: Status: Active Protocol: Document 07/16/22 15:28 [facility] (Rec: 07/17/22 14:20 [facility] [id number]) Posture Evaluation Position Standing Head/C-Spine Posture Forward Head T-Spine Posture Increased Kyphosis L-Spine Posture Increased Lordosis Shoulder Posture (L) Rounded,(R) Rounded Scapula Posture (L) Protracted,(R) Protracted Arm Posture (L) Internally Rotated,(R) Internally Rotated Palpation Assessment Location thoracolumbar paraspinals Palpation Location zachery Palpation Findings Soft Tissue Tightness, Tenderness PT-OP-K Range of Motion Start: 07/15/22 16:45 Freq: Status: Active Protocol: Document 07/16/22 15:28 [facility] (Rec: 07/17/22 14:20 [facility] [id number]) Lumbar Spine Range of Motion Lumbar Spine Active ROM Limitations Soft Tissue Tightness,Pain Comments moderately decreased all motions PT-OP-M Strength Start: 07/15/22 16:45 Freq: Status: Active Protocol: Document 07/16/22 15:28 [facility] (Rec: 07/17/22 14:20 [facility] [id number]) Trunk Strength Trunk Manual Muscle Testing Core Stabilization poor Comments Unable to do formal MMT due to pain Hip Strength Hip Manual Muscle Testing zachery Flexion (L2) 3+ Fair+ Extension (S1) 3+ Fair+ Abduction 3+ Fair+ Adduction 3+ Fair+ External Rotation 3+ Fair+ Internal Rotation 3+ Fair+ Comments limited by pain PT-OP-Q Treatments Start: 07/15/22 16:45 Freq: Status: Active Protocol: Document 08/26/22 11:18 NBM (Rec: 08/26/22 12:54 [facility] [id number]) Therapeutic Exercises Supine Exercises setmental bridge Equipment Used green ball Reps/Minutes 5x5, 5 x 5 w/ ball squeeze Comments good challenge w/ ball squeeze pec stretch Reps/Minutes 2x30 Comments no pillows, cues for deep breathing overhead stretch Reps/Minutes 2x30 Comments pillow no longer needed under arms upper back relaxer Reps/Minutes 5 x zachery goal post Supine Exercise Name tactile cue to keep shoulders down Reps/Minutes 10x Comments emphasis on the external rot at should triangle stretch Supine Exercise Name triangle press Reps/Minutes 10x10 Comments pillows no longer needed under elbows posture press Reps/Minutes 5x10 Sidelying Exercises open book Sidelying Exercise Name active first, then hold for stretch with deep breathing Reps/Minutes 5x Comments gentle, cue to tuck chin before resting head. Standing Exercises QL Doorway stretch Standing Exercise Name L QL focus - added to HEP Side left Reps/Minutes 2 x 30 Self-Care/Home Management Treatment Education Patient Education Home Exercise Program,Pain Management,Posture Other Education Added to HEP: QL Doorway stretch - HO given. PT-OP-R Modalities Start: 07/15/22 16:45 Freq: Status: Active Protocol: Document 08/26/22 11:18 NBM (Rec: 08/26/22 12:54 [facility] [id number]) Hot Pack/Cold Pack Treatment Heat Location thoracolumbar spine Patient Position Hooklying Treatment Duration (minutes) 15 Patient Tolerance Good PT-OP-T Assessment and Plan Start: 07/15/22 16:45 Freq: Status: Active Protocol: Document 08/26/22 11:18 NBM (Rec: 08/26/22 12:54 [facility] [id number]) Physical Therapy Assessment Impairments Impairments Activity Tolerance,Pain, Posture,Strength Goals activity tolerance Impairment Oswestry disability index score 44% Short Term Goal (STG) Decrease Oswestry score to no greater than 30% as measure of improved activity tolerance and function 08/21/22: good goal progress STG Duration 08/15/22 Assisted Goal (LTG) Decrease Oswestry score to no greater than 20% as measur of improved activity tolerance and function in her day to day life. LTG Duration 10/15/22 weakness Impairment trunk and core muscle weakness Impairment weakness throughout trunk musculature Short Term Goal (STG) patient to be instructed in HEP for purposes of trunk and core strengthening 08/15/22: ongoing STG Duration 08/15/22 Theater Company Producer Goal (LTG) Patient will be independent and compliant with HEP and demonstrate improved muscle strength throughout trunk and core LTG Duration 10/15/22 Two Impairment pain thoracolumbar Impairment Pain as high as 6/10 limiting ability to stand, walk, and do usual activities Short Term Goal (STG) Decrease pain to no greater than 4/10 with all usual activities 08/15/22: good goal progress STG Duration 08/15/22 Theater Company Producer Goal (LTG) Decrease pain to no greater than 2/10 with patient able to resume more physical activities without difficulty LTG Duration 10/15/22 1 Impairment postural dysfunction Impairment excess thoracic kyphosis and lumbar lordosis Short Term Goal (STG) Patient to receive postural education and therapeutic exercises for postural correction 08/21/22: good goal progress STG Duration 08/15/22 Assisted Goal (LTG) Patient to demonstrate improved postural awareness statically and dynamically with functional movement and activities 08/21/22: goal progress LTG Duration 10/15/22 Assessment Summary Assessment Pt demonstrates self-awareness and ability to self-correct upright posture w/ posterior chain exercises with good attention to breathing. Pt requires min cues for controlled eccentric w/ shoulder rows/extension exercises, and slower pacing with exercises and transitions . Physical Therapy Plan Frequency and Duration Frequency of Treatment 2x/Week Duration of treatment (weeks) 12 Plan of Care Start Date 07/16/22 Plan of Care End Date 10/14/22 Therapeutic Interventions Therapeutic Interventions Manual Therapy,Patient/ Caregiver Education,Self-Care/ Home Management,Soft Tissue Mobilization,Therapeutic Activities,Therapeutic Exercises Modalities Electric Stimulation,Hot Packs ,Traction- Mechanical, Ultrasound Next Visit Focus/Plan Next Note Type Progress Note Next Visit Plan Continue gentle progression of ther ex for postural correction, core strengthening , flexibility. Modalities and manual therapy PRN.
--- NOTE | 2022-09-03 17:46 | PT.OTN ---
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 No treatment for it; no exercises, no heat or ice. Takes Ibuprofen and Acetaminophen. Sleeps on side or back. Has just resumed doing exercises for shoulder and low back. Sits and lays down a lot. CAn't walk more than a few blocks due to hip and spinal pain. States middle glut doesn't fire, PT some helpful but didn't resolve issue, but pain is mostly throughout spine. Prior Treatments and Tests prior PT for RC, hip, gluts x-rays show excess kyphosis, and lots of arthritis per patient report, in Dr. Flanagan's office. Treatment Goals Patient/Caregiver Goals IMprove her posture, strength, and activity tolerance PT-OP-C Subjective Start: 07/15/22 16:45 Freq: Status: Active Protocol: Document 09/03/22 16:27 NBM (Rec: 09/03/22 17:45 NBM [id number]) OP-PT Subjective Patient Comments Patient Comments Pt reports she is doing well. She wants to focus on exercises to strengthen her core. PT-OP-D Balance Start: 07/15/22 16:45 Freq: Status: Active Protocol: Document 07/16/22 15:28 SAK (Rec: 07/17/22 10:40 [facility] [id number]) OP-PT Balance Assessment Sitting Balance Static Sitting Balance Ability Good Dynamic Sitting Balance Ability Good Standing Balance Static Standing Balance Ability Fair Dynamic Standing Balance Ability Poor Standing Balance Comments encouraged patient to use cane or trekking poles due to her expressed fear of falling, difficulty with balance Garza Fall Scale Copyright Permission PT-OP-G Mobility & Gait Start: 07/15/22 16:45 Freq: Status: Active Protocol: Document 07/16/22 15:28 [facility] (Rec: 07/17/22 10:40 [facility] [id number]) OP Mobility Evaluation Bed Mobility Supine to and from Sit instrsucted in log roll for spinal protection, practice x 3 with improving performance with repeititoin OP Gait Assessment Gait Deviations General Gait Pattern Decreased Stride Length, Decreased Feet Clearance PT-OP-H Neuro Start: 07/15/22 16:45 Freq: Status: Active Protocol: Document 07/16/22 15:28 [facility] (Rec: 07/17/22 14:20 [facility] [id number]) Sensation Evaluation Gross Sensation Gross Sensation WNL PT-OP-J Posture/Palpation/Skin Start: 07/15/22 16:45 Freq: Status: Active Protocol: Document 07/16/22 15:28 [facility] (Rec: 07/17/22 14:20 [facility] [id number]) Posture Evaluation Position Standing Head/C-Spine Posture Forward Head T-Spine Posture Increased Kyphosis L-Spine Posture Increased Lordosis Shoulder Posture (L) Rounded,(R) Rounded Scapula Posture (L) Protracted,(R) Protracted Arm Posture (L) Internally Rotated,(R) Internally Rotated Palpation Assessment Location thoracolumbar paraspinals Palpation Location zachery Palpation Findings Soft Tissue Tightness, Tenderness PT-OP-K Range of Motion Start: 07/15/22 16:45 Freq: Status: Active Protocol: Document 07/16/22 15:28 [facility] (Rec: 07/17/22 14:20 [facility] [id number]) Lumbar Spine Range of Motion Lumbar Spine Active ROM Limitations Soft Tissue Tightness,Pain Comments moderately decreased all motions PT-OP-M Strength Start: 07/15/22 16:45 Freq: Status: Active Protocol: Document 07/16/22 15:28 [facility] (Rec: 07/17/22 14:20 [facility] [id number]) Trunk Strength Trunk Manual Muscle Testing Core Stabilization poor Comments Unable to do formal MMT due to pain Hip Strength Hip Manual Muscle Testing zachery Flexion (L2) 3+ Fair+ Extension (S1) 3+ Fair+ Abduction 3+ Fair+ Adduction 3+ Fair+ External Rotation 3+ Fair+ Internal Rotation 3+ Fair+ Comments limited by pain PT-OP-Q Treatments Start: 07/15/22 16:45 Freq: Status: Active Protocol: Document 09/03/22 16:27 NB (Rec: 09/03/22 17:45 [facility] [id number]) Therapeutic Exercises Supine Exercises TrA Supine Exercise Name 1. TrA w/PPT 2. Bent Knee FO 3 . Heel raise 4. Mini march Side bilateral Reps/Minutes 18' Comments HEP: december attempted - too challenging setmental bridge Equipment Used green ball Reps/Minutes 10 x 5 w/ ball squeeze Comments vc for max height; shows good ecc control posture press Supine Exercise Name 1.attempted in 90/90, then in hooklying Comments dc'd d/t to LBP - changed to TrA focus Prone Exercises Thread the Needle Prone Exercise Name added to HEP Side bilateral Reps/Minutes x5 ea Quadruped Prone Exercise Name alternating UE - added to HEP Side bilateral Reps/Minutes 5 x 2-3 s ea (hand hover) Comments vc for form, weightshift over hands Self-Care/Home Management Treatment Education Patient Education Home Exercise Program Other Education Pt educated on anatomy of Transverse abdominus and relationship w/ pelvic floor and diaphgragm, and importance of not holding breath w/ movement. PT-OP-R Modalities Start: 07/15/22 16:45 Freq: Status: Active Protocol: Document 09/03/22 16:27 NB (Rec: 09/03/22 17:45 [facility] [id number]) Hot Pack/Cold Pack Treatment Heat Location thoracolumbar spine Patient Position Hooklying Treatment Duration (minutes) 15 Patient Tolerance Good PT-OP-T Assessment and Plan Start: 07/15/22 16:45 Freq: Status: Active Protocol: Document 09/03/22 16:27 NB (Rec: 09/03/22 17:45 [facility] [id number]) Physical Therapy Assessment Goals activity tolerance Impairment Oswestry disability index score 44% Short Term Goal (STG) Decrease Oswestry score to no greater than 30% as measure of improved activity tolerance and function 08/21/22: good goal progress STG Duration 08/15/22 Residential Goal (LTG) Decrease Oswestry score to no greater than 20% as measur of improved activity tolerance and function in her day to day life. LTG Duration 10/15/22 weakness Impairment trunk and core muscle weakness Impairment weakness throughout trunk musculature Short Term Goal (STG) patient to be instructed in HEP for purposes of trunk and core strengthening 08/15/22: ongoing STG Duration 08/15/22 Residential Goal (LTG) Patient will be independent and compliant with HEP and demonstrate improved muscle strength throughout trunk and core LTG Duration 10/15/22 Two Impairment pain thoracolumbar Impairment Pain as high as 6/10 limiting ability to stand, walk, and do usual activities Short Term Goal (STG) Decrease pain to no greater than 4/10 with all usual activities 08/15/22: good goal progress STG Duration 08/15/22 Doggy Daycare Activities Director Goal (LTG) Decrease pain to no greater than 2/10 with patient able to resume more physical activities without difficulty LTG Duration 10/15/22 1 Impairment postural dysfunction Impairment excess thoracic kyphosis and lumbar lordosis Short Term Goal (STG) Patient to receive postural education and therapeutic exercises for postural correction 08/21/22: good goal progress STG Duration 08/15/22 Residential Goal (LTG) Patient to demonstrate improved postural awareness statically and dynamically with functional movement and activities 08/21/22: goal progress LTG Duration 10/15/22 Assessment Summary Assessment Treatment focus on core stability. Pt educated on anatomy of Transverse abdominus and relationship w/ pelvic floor and diaphgragm, and importance of not holding breath w/ movement. Bent Knee Fall Out ex is initially challenging for pt to maintain TrA activation but improves w / repetition and cueing. Pt requires initial cues for upper body tension beginning of session but shows improved self-correction. Pt demonstrates improved self- awareness of TrA activation end of session. Added to HEP: TrA w/ Bent Knee FO and Mini March, Quadruped w/ alternating arm, and Thread the Needle - HO given. Physical Therapy Plan Frequency and Duration Frequency of Treatment 2x/Week Duration of treatment (weeks) 12 Plan of Care Start Date 07/16/22 Plan of Care End Date 10/14/22 Therapeutic Interventions Therapeutic Interventions Manual Therapy,Patient/ Caregiver Education,Self-Care/ Home Management,Soft Tissue Mobilization,Therapeutic Activities,Therapeutic Exercises Modalities Electric Stimulation,Hot Packs ,Traction- Mechanical, Ultrasound Next Visit Focus/Plan Next Note Type Treatment Note Next Visit Plan Continue gentle progression of ther ex for postural correction, core strengthening , flexibility. Modalities and manual therapy PRN.
--- NOTE | 2022-09-09 18:34 | PT.OTN ---
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 No treatment for it; no exercises, no heat or ice. Takes Ibuprofen and Acetaminophen. Sleeps on side or back. Has just resumed doing exercises for shoulder and low back. Sits and lays down a lot. CAn't walk more than a few blocks due to hip and spinal pain. States middle glut doesn't fire, PT some helpful but didn't resolve issue, but pain is mostly throughout spine. Prior Treatments and Tests prior PT for RC, hip, gluts x-rays show excess kyphosis, and lots of arthritis per patient report, in Dr. Flanagan's office. Treatment Goals Patient/Caregiver Goals IMprove her posture, strength, and activity tolerance PT-OP-C Subjective Start: 07/15/22 16:45 Freq: Status: Active Protocol: Document 09/09/22 13:52 NBM (Rec: 09/09/22 14:33 NBM [id number]) OP-PT Subjective Patient Comments Patient Comments Pt reports she is doing well and did all of her exercises today already and declines to do resisted shoulder rows/ extension. PT-OP-D Balance Start: 07/15/22 16:45 Freq: Status: Active Protocol: Document 07/16/22 15:28 [facility] (Rec: 07/17/22 10:40 [facility] [id number]) OP-PT Balance Assessment Sitting Balance Static Sitting Balance Ability Good Dynamic Sitting Balance Ability Good Standing Balance Static Standing Balance Ability Fair Dynamic Standing Balance Ability Poor Standing Balance Comments encouraged patient to use cane or trekking poles due to her expressed fear of falling, difficulty with balance Garza Fall Scale Copyright Permission PT-OP-G Mobility & Gait Start: 07/15/22 16:45 Freq: Status: Active Protocol: Document 07/16/22 15:28 [facility] (Rec: 07/17/22 10:40 [facility] [id number]) OP Mobility Evaluation Bed Mobility Supine to and from Sit instrsucted in log roll for spinal protection, practice x 3 with improving performance with repeititoin OP Gait Assessment Gait Deviations General Gait Pattern Decreased Stride Length, Decreased Feet Clearance PT-OP-H Neuro Start: 07/15/22 16:45 Freq: Status: Active Protocol: Document 07/16/22 15:28 [facility] (Rec: 07/17/22 14:20 [facility] [id number]) Sensation Evaluation Gross Sensation Gross Sensation WNL PT-OP-J Posture/Palpation/Skin Start: 07/15/22 16:45 Freq: Status: Active Protocol: Document 07/16/22 15:28 [facility] (Rec: 07/17/22 14:20 [facility] [id number]) Posture Evaluation Position Standing Head/C-Spine Posture Forward Head T-Spine Posture Increased Kyphosis L-Spine Posture Increased Lordosis Shoulder Posture (L) Rounded,(R) Rounded Scapula Posture (L) Protracted,(R) Protracted Arm Posture (L) Internally Rotated,(R) Internally Rotated Palpation Assessment Location thoracolumbar paraspinals Palpation Location zachery Palpation Findings Soft Tissue Tightness, Tenderness PT-OP-K Range of Motion Start: 07/15/22 16:45 Freq: Status: Active Protocol: Document 07/16/22 15:28 [facility] (Rec: 07/17/22 14:20 [facility] [id number]) Lumbar Spine Range of Motion Lumbar Spine Active ROM Limitations Soft Tissue Tightness,Pain Comments moderately decreased all motions PT-OP-M Strength Start: 07/15/22 16:45 Freq: Status: Active Protocol: Document 07/16/22 15:28 [facility] (Rec: 07/17/22 14:20 [facility] [id number]) Trunk Strength Trunk Manual Muscle Testing Core Stabilization poor Comments Unable to do formal MMT due to pain Hip Strength Hip Manual Muscle Testing zachery Flexion (L2) 3+ Fair+ Extension (S1) 3+ Fair+ Abduction 3+ Fair+ Adduction 3+ Fair+ External Rotation 3+ Fair+ Internal Rotation 3+ Fair+ Comments limited by pain PT-OP-Q Treatments Start: 07/15/22 16:45 Freq: Status: Active Protocol: Document 09/09/22 13:52 NBM (Rec: 09/09/22 14:33 NBM [id number]) Therapeutic Exercises Supine Exercises TrA Supine Exercise Name 1. TrA w/PPT 2. Bent Knee FO 3 . March Side bilateral Reps/Minutes 18' Comments Pt able to december today - cue for slow eccentric setmental bridge Equipment Used green ball Reps/Minutes x5, 5 x 5 w/ ball squeeze Comments ecc glute control, PPT - resolves pain pec stretch Reps/Minutes 2x30 Comments no pillows, cues for deep breathing Prone Exercises Thread the Needle Side bilateral Reps/Minutes x5 ea Comments cue for core engagement Quadruped Prone Exercise Name alternating UE Side bilateral Reps/Minutes 5 x 2-3 s ea (hand hover) Comments vc to weightshift over hands Sidelying Exercises open book Sidelying Exercise Name active first, then hold for stretch with deep breathing Reps/Minutes 5x Comments gentle, cue to tuck chin before resting head. Standing Exercises Rhomboid Doorway stretch Standing Exercise Name added to HEP Reps/Minutes 2x30s Comments good feedback response QL Doorway stretch Standing Exercise Name L QL focus - added to HEP Side left Reps/Minutes 2 x 30 wall roll up Reps/Minutes 2 Comments dc'd per pt request d/t being challenging row, shld ext Standing Exercise Name pt declined today d/t completing earlier Resistance L1 TB Reps/Minutes 10x5 Comments verbal and tactile cues, cues for 5s hold Manual Therapy Treatment Soft Tissue Mobilization Shoulders Body Location B pec Mobilization Type Cross-Friction,Oscillations Intensity/Depth Superficial Body Position Hooklying Comments R>L Self-Care/Home Management Treatment Education Patient Education Home Exercise Program Other Education Added Rhomboid doorway stretch to HEP - HO given. PT-OP-R Modalities Start: 07/15/22 16:45 Freq: Status: Active Protocol: Document 09/09/22 13:52 NBM (Rec: 09/09/22 18:22 NBM [id number]) Hot Pack/Cold Pack Treatment Heat Location thoracolumbar spine Patient Position Hooklying Treatment Duration (minutes) 10 Patient Tolerance Good PT-OP-T Assessment and Plan Start: 07/15/22 16:45 Freq: Status: Active Protocol: Document 09/09/22 13:52 NBM (Rec: 09/09/22 14:33 NB [id number]) Physical Therapy Assessment Goals activity tolerance Impairment Oswestry disability index score 44% Short Term Goal (STG) Decrease Oswestry score to no greater than 30% as measure of improved activity tolerance and function 08/21/22: good goal progress STG Duration 08/15/22 Clinical Resource Nurse Goal (LTG) Decrease Oswestry score to no greater than 20% as measur of improved activity tolerance and function in her day to day life. LTG Duration 10/15/22 weakness Impairment trunk and core muscle weakness Impairment weakness throughout trunk musculature Short Term Goal (STG) patient to be instructed in HEP for purposes of trunk and core strengthening 08/15/22: ongoing STG Duration 08/15/22 [facility] Goal (LTG) Patient will be independent and compliant with HEP and demonstrate improved muscle strength throughout trunk and core LTG Duration 10/15/22 Two Impairment pain thoracolumbar Impairment Pain as high as 6/10 limiting ability to stand, walk, and do usual activities Short Term Goal (STG) Decrease pain to no greater than 4/10 with all usual activities 08/15/22: good goal progress STG Duration 08/15/22 [facility] Goal (LTG) Decrease pain to no greater than 2/10 with patient able to resume more physical activities without difficulty LTG Duration 10/15/22 1 Impairment postural dysfunction Impairment excess thoracic kyphosis and lumbar lordosis Short Term Goal (STG) Patient to receive postural education and therapeutic exercises for postural correction 08/21/22: good goal progress STG Duration 08/15/22 [facility] Goal (LTG) Patient to demonstrate improved postural awareness statically and dynamically with functional movement and activities 08/21/22: goal progress LTG Duration 10/15/22 Assessment Summary Assessment Pt requires cues for eccentric glute control w/ bridging which resolves low back pain, likely from hyperextension. Pt demonstrates improved core strength with progression from supine mini march last visit 09/03 to full december this visit w/ TrA activation. Wall roll- up discontinued per pt request due to challenge. Added to HEP: Rhomboid doorway stretch - HO given. Physical Therapy Plan Frequency and Duration Frequency of Treatment 2x/Week Duration of treatment (weeks) 12 Plan of Care Start Date 07/16/22 Plan of Care End Date 10/14/22 Therapeutic Interventions Therapeutic Interventions Manual Therapy,Patient/ Caregiver Education,Self-Care/ Home Management,Soft Tissue Mobilization,Therapeutic Activities,Therapeutic Exercises Modalities Electric Stimulation,Hot Packs ,Traction- Mechanical, Ultrasound Next Visit Focus/Plan Next Note Type Treatment Note Next Visit Plan Continue gentle progression of ther ex for postural correction, core strengthening , flexibility. Modalities and manual therapy PRN.
--- NOTE | 2022-09-11 16:06 | PT.OTN ---
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 No treatment for it; no exercises, no heat or ice. Takes Ibuprofen and Acetaminophen. Sleeps on side or back. Has just resumed doing exercises for shoulder and low back. Sits and lays down a lot. CAn't walk more than a few blocks due to hip and spinal pain. States middle glut doesn't fire, PT some helpful but didn't resolve issue, but pain is mostly throughout spine. Prior Treatments and Tests prior PT for RC, hip, gluts x-rays show excess kyphosis, and lots of arthritis per patient report, in Dr. Flanagan's office. Treatment Goals Patient/Caregiver Goals IMprove her posture, strength, and activity tolerance PT-OP-C Subjective Start: 07/15/22 16:45 Freq: Status: Active Protocol: Document 09/11/22 15:11 SAK (Rec: 09/11/22 16:06 SAK [id number]) OP-PT Subjective Patient Comments Patient Comments Patient states she stumbled over a small curb yesterday, fell onto face, scraped face, no other soreness. Has questions about some of the exercises. PT-OP-D Balance Start: 07/15/22 16:45 Freq: Status: Active Protocol: Document 07/16/22 15:28 [facility] (Rec: 07/17/22 10:40 [facility] [id number]) OP-PT Balance Assessment Sitting Balance Static Sitting Balance Ability Good Dynamic Sitting Balance Ability Good Standing Balance Static Standing Balance Ability Fair Dynamic Standing Balance Ability Poor Standing Balance Comments encouraged patient to use cane or trekking poles due to her expressed fear of falling, difficulty with balance Garza Fall Scale Copyright Permission PT-OP-G Mobility & Gait Start: 07/15/22 16:45 Freq: Status: Active Protocol: Document 07/16/22 15:28 [facility] (Rec: 07/17/22 10:40 [facility] [id number]) OP Mobility Evaluation Bed Mobility Supine to and from Sit instrsucted in log roll for spinal protection, practice x 3 with improving performance with repeititoin OP Gait Assessment Gait Deviations General Gait Pattern Decreased Stride Length, Decreased Feet Clearance PT-OP-H Neuro Start: 07/15/22 16:45 Freq: Status: Active Protocol: Document 07/16/22 15:28 [facility] (Rec: 07/17/22 14:20 [facility] [id number]) Sensation Evaluation Gross Sensation Gross Sensation WNL PT-OP-J Posture/Palpation/Skin Start: 07/15/22 16:45 Freq: Status: Active Protocol: Document 07/16/22 15:28 [facility] (Rec: 07/17/22 14:20 [facility] [id number]) Posture Evaluation Position Standing Head/C-Spine Posture Forward Head T-Spine Posture Increased Kyphosis L-Spine Posture Increased Lordosis Shoulder Posture (L) Rounded,(R) Rounded Scapula Posture (L) Protracted,(R) Protracted Arm Posture (L) Internally Rotated,(R) Internally Rotated Palpation Assessment Location thoracolumbar paraspinals Palpation Location zachery Palpation Findings Soft Tissue Tightness, Tenderness PT-OP-K Range of Motion Start: 07/15/22 16:45 Freq: Status: Active Protocol: Document 07/16/22 15:28 [facility] (Rec: 07/17/22 14:20 [facility] [id number]) Lumbar Spine Range of Motion Lumbar Spine Active ROM Limitations Soft Tissue Tightness,Pain Comments moderately decreased all motions PT-OP-M Strength Start: 07/15/22 16:45 Freq: Status: Active Protocol: Document 07/16/22 15:28 [facility] (Rec: 07/17/22 14:20 [facility] [id number]) Trunk Strength Trunk Manual Muscle Testing Core Stabilization poor Comments Unable to do formal MMT due to pain Hip Strength Hip Manual Muscle Testing zachery Flexion (L2) 3+ Fair+ Extension (S1) 3+ Fair+ Abduction 3+ Fair+ Adduction 3+ Fair+ External Rotation 3+ Fair+ Internal Rotation 3+ Fair+ Comments limited by pain PT-OP-Q Treatments Start: 07/15/22 16:45 Freq: Status: Active Protocol: Document 09/11/22 15:11 [facility] (Rec: 09/11/22 16:06 [facility] [id number]) Therapeutic Exercises Supine Exercises TrA Supine Exercise Name 1. TrA w/PPT 2. Bent Knee FO 3 . March Side bilateral Reps/Minutes 18' Comments Pt able to december today - cue for slow eccentric setmental bridge Equipment Used green ball Reps/Minutes 10 x 5 w/ ball squeeze Comments ecc glute control, PPT Prone Exercises Thread the Needle Side bilateral Reps/Minutes x5 ea Comments cue for core engagement Quadruped Prone Exercise Name alternating UE Side bilateral Reps/Minutes 5 x 2-3 s ea (hand hover) Comments vc to weightshift over hands Sidelying Exercises shoulder abduction Reps/Minutes 2x30 Comments with deep breathing for lateral chest expansion open book Sidelying Exercise Name active first, then hold for stretch with deep breathing Reps/Minutes 5x Comments gentle, cue to tuck chin before resting head. Standing Exercises Rhomboid Doorway stretch Standing Exercise Name or hug stretch Reps/Minutes 2x30s Comments good feedback response QL Doorway stretch Standing Exercise Name L QL focus - added to HEP Side left Reps/Minutes 2 x 30 Self-Care/Home Management Treatment Education Patient Education Home Exercise Program Other Education added SLS and tandem stand for balance/core strengthening PT-OP-R Modalities Start: 07/15/22 16:45 Freq: Status: Active Protocol: Document 09/11/22 15:11 [facility] (Rec: 09/11/22 16:06 [facility] [id number]) Hot Pack/Cold Pack Treatment Heat Location thoracolumbar spine Patient Position Hooklying Treatment Duration (minutes) 10 Patient Tolerance Good Comments during supine ex PT-OP-T Assessment and Plan Start: 07/15/22 16:45 Freq: Status: Active Protocol: Document 09/11/22 15:11 [facility] (Rec: 09/11/22 16:06 [facility] [id number]) Physical Therapy Assessment Goals activity tolerance Impairment Oswestry disability index score 44% Short Term Goal (STG) Decrease Oswestry score to no greater than 30% as measure of improved activity tolerance and function 08/21/22: good goal progress STG Duration 08/15/22 Care Home Goal (LTG) Decrease Oswestry score to no greater than 20% as measur of improved activity tolerance and function in her day to day life. 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 (LTG) Patient will be independent and compliant with HEP and demonstrate improved muscle strength throughout trunk and core LTG Duration 10/15/22 Two Impairment pain thoracolumbar Impairment Pain as high as 6/10 limiting ability to stand, walk, and do usual activities Short Term Goal (STG) Decrease pain to no greater than 4/10 with all usual activities 08/15/22: good goal progress STG Duration 08/15/22 Care Home Goal (LTG) Decrease pain to no greater than 2/10 with patient able to resume more physical activities without difficulty LTG Duration 10/15/22 1 Impairment postural dysfunction Impairment excess thoracic kyphosis and lumbar lordosis Short Term Goal (STG) Patient to receive postural education and therapeutic exercises for postural correction 08/21/22: good goal progress STG Duration 08/15/22 Care Home Goal (LTG) Patient to demonstrate improved postural awareness statically and dynamically with functional movement and activities 08/21/22: goal progress LTG Duration 10/15/22 Assessment Summary Assessment Patient continues to benefit from gentle progression of ther ex with cues for improved performance. Due to history of falls added SLS and tandem stand at counter and issued written handout. Physical Therapy Plan Frequency and Duration Frequency of Treatment 2x/Week Duration of treatment (weeks) 12 Plan of Care Start Date 07/16/22 Plan of Care End Date 10/14/22 Therapeutic Interventions Therapeutic Interventions Manual Therapy,Patient/ Caregiver Education,Self-Care/ Home Management,Soft Tissue Mobilization,Therapeutic Activities,Therapeutic Exercises Modalities Electric Stimulation,Hot Packs ,Traction- Mechanical, Ultrasound Next Visit Focus/Plan Next Note Type Treatment Note Next Visit Plan Review any exercises patient feels she needs assistance with especially quadriped and standing bal/strengthening ex. Consider seated core ex on Dynadisc. Discussed POC and plan continue PT with dec frequency to 1x/wk
--- NOTE | 2022-09-26 13:46 | PT.OTN ---
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 No treatment for it; no exercises, no heat or ice. Takes Ibuprofen and Acetaminophen. Sleeps on side or back. Has just resumed doing exercises for shoulder and low back. Sits and lays down a lot. CAn't walk more than a few blocks due to hip and spinal pain. States middle glut doesn't fire, PT some helpful but didn't resolve issue, but pain is mostly throughout spine. Prior Treatments and Tests prior PT for RC, hip, gluts x-rays show excess kyphosis, and lots of arthritis per patient report, in Dr. Flanagan's office. Treatment Goals Patient/Caregiver Goals IMprove her posture, strength, and activity tolerance PT-OP-C Subjective Start: 07/15/22 16:45 Freq: Status: Active Protocol: Document 09/26/22 12:59 SAK (Rec: 09/26/22 13:46 SAK [id number]) OP-PT Subjective Patient Comments Patient Comments No new c/o. Hasn't done her exercises over the past week due to having company. Neck and back feeling pretty good. PT-OP-D Balance Start: 07/15/22 16:45 Freq: Status: Active Protocol: Document 07/16/22 15:28 [facility] (Rec: 07/17/22 10:40 [facility] [id number]) OP-PT Balance Assessment Sitting Balance Static Sitting Balance Ability Good Dynamic Sitting Balance Ability Good Standing Balance Static Standing Balance Ability Fair Dynamic Standing Balance Ability Poor Standing Balance Comments encouraged patient to use cane or trekking poles due to her expressed fear of falling, difficulty with balance Garza Fall Scale Copyright Permission PT-OP-G Mobility & Gait Start: 07/15/22 16:45 Freq: Status: Active Protocol: Document 07/16/22 15:28 [facility] (Rec: 07/17/22 10:40 [facility] [id number]) OP Mobility Evaluation Bed Mobility Supine to and from Sit instrsucted in log roll for spinal protection, practice x 3 with improving performance with repeititoin OP Gait Assessment Gait Deviations General Gait Pattern Decreased Stride Length, Decreased Feet Clearance PT-OP-H Neuro Start: 07/15/22 16:45 Freq: Status: Active Protocol: Document 07/16/22 15:28 [facility] (Rec: 07/17/22 14:20 [facility] [id number]) Sensation Evaluation Gross Sensation Gross Sensation WNL PT-OP-J Posture/Palpation/Skin Start: 07/15/22 16:45 Freq: Status: Active Protocol: Document 07/16/22 15:28 [facility] (Rec: 07/17/22 14:20 [facility] [id number]) Posture Evaluation Position Standing Head/C-Spine Posture Forward Head T-Spine Posture Increased Kyphosis L-Spine Posture Increased Lordosis Shoulder Posture (L) Rounded,(R) Rounded Scapula Posture (L) Protracted,(R) Protracted Arm Posture (L) Internally Rotated,(R) Internally Rotated Palpation Assessment Location thoracolumbar paraspinals Palpation Location zachery Palpation Findings Soft Tissue Tightness, Tenderness PT-OP-K Range of Motion Start: 07/15/22 16:45 Freq: Status: Active Protocol: Document 07/16/22 15:28 [facility] (Rec: 07/17/22 14:20 [facility] [id number]) Lumbar Spine Range of Motion Lumbar Spine Active ROM Limitations Soft Tissue Tightness,Pain Comments moderately decreased all motions PT-OP-M Strength Start: 07/15/22 16:45 Freq: Status: Active Protocol: Document 07/16/22 15:28 [facility] (Rec: 07/17/22 14:20 [facility] [id number]) Trunk Strength Trunk Manual Muscle Testing Core Stabilization poor Comments Unable to do formal MMT due to pain Hip Strength Hip Manual Muscle Testing zachery Flexion (L2) 3+ Fair+ Extension (S1) 3+ Fair+ Abduction 3+ Fair+ Adduction 3+ Fair+ External Rotation 3+ Fair+ Internal Rotation 3+ Fair+ Comments limited by pain PT-OP-Q Treatments Start: 07/15/22 16:45 Freq: Status: Active Protocol: Document 09/26/22 12:59 [facility] (Rec: 09/26/22 13:46 [facility] [id number]) Therapeutic Exercises Supine Exercises setmental bridge Equipment Used green ball Reps/Minutes 10 x 5 w/ ball squeeze Comments ecc glute control, PPT triangle stretch Supine Exercise Name triangle press Reps/Minutes 10x10 Comments pillows no longer needed under elbows posture press Supine Exercise Name 1.attempted in 90/90, then in hooklying Comments dc'd d/t to LBP - changed to TrA focus Prone Exercises cat.cow Reps/Minutes 5x Comments cues for segmental movement Thread the Needle Side bilateral Reps/Minutes x5 ea Comments cue for core engagement Quadruped Prone Exercise Name alternating UE Side bilateral Reps/Minutes 5 x 2-3 s ea (hand hover) Comments vc to weightshift over hands Sidelying Exercises open book Sidelying Exercise Name active first, then hold for stretch with deep breathing Reps/Minutes 5x Comments gentle, cue to tuck chin before resting head. Standing Exercises Rhomboid Doorway stretch Standing Exercise Name or hug stretch Reps/Minutes 2x30s Comments good feedback response QL Doorway stretch Standing Exercise Name L QL focus - added to HEP Side left Reps/Minutes 2 x 30 row, shld ext Resistance L1 TB Reps/Minutes 10x5 Comments verbal and tactile cues, cues for 5s hold Neuro Re-Education Treatment Balance Activities SLS, tandem Reps/Duration 3x ea Comments cues with SLS to keep opp foot on ground a little PRN. Self-Care/Home Management Treatment Education Patient Education Home Exercise Program Other Education reviewed SLS and tandem, added cat/cow PT-OP-R Modalities Start: 07/15/22 16:45 Freq: Status: Active Protocol: Document 09/26/22 12:59 [facility] (Rec: 09/26/22 13:46 [facility] [id number]) Hot Pack/Cold Pack Treatment Heat Location thoracolumbar spine Patient Position Hooklying Treatment Duration (minutes) 10 Patient Tolerance Good Comments during supine ex PT-OP-T Assessment and Plan Start: 07/15/22 16:45 Freq: Status: Active Protocol: Document 09/26/22 12:59 SAK (Rec: 09/26/22 13:46 [facility] [id number]) Physical Therapy Assessment Goals activity tolerance Impairment Oswestry disability index score 44% Short Term Goal (STG) Decrease Oswestry score to no greater than 30% as measure of improved activity tolerance and function 08/21/22: good goal progress STG Duration 08/15/22 [facility] Goal (LTG) Decrease Oswestry score to no greater than 20% as measur of improved activity tolerance and function in her day to day life. LTG Duration 10/15/22 weakness Impairment trunk and core muscle weakness Impairment weakness throughout trunk musculature Short Term Goal (STG) patient to be instructed in HEP for purposes of trunk and core strengthening 08/15/22: ongoing STG Duration 08/15/22 [employer] Goal (LTG) Patient will be independent and compliant with HEP and demonstrate improved muscle strength throughout trunk and core LTG Duration 10/15/22 Two Impairment pain thoracolumbar Impairment Pain as high as 6/10 limiting ability to stand, walk, and do usual activities Short Term Goal (STG) Decrease pain to no greater than 4/10 with all usual activities 08/15/22: good goal progress STG Duration 08/15/22 W[employer] Goal (LTG) Decrease pain to no greater than 2/10 with patient able to resume more physical activities without difficulty LTG Duration 10/15/22 1 Impairment postural dysfunction Impairment excess thoracic kyphosis and lumbar lordosis Short Term Goal (STG) Patient to receive postural education and therapeutic exercises for postural correction 08/21/22: good goal progress STG Duration 08/15/22 [facility] Goal (LTG) Patient to demonstrate improved postural awareness statically and dynamically with functional movement and activities 08/21/22: goal progress LTG Duration 10/15/22 Assessment Summary Assessment Verbal and tactile cues for core activaction, alignment with ex though improving awareness. Good tolerance for cat/cow so added to HEP for spinal mobility, emphasis on segmental movement. Physical Therapy Plan Frequency and Duration Frequency of Treatment 2x/Week Duration of treatment (weeks) 12 Plan of Care Start Date 07/16/22 Plan of Care End Date 10/14/22 Therapeutic Interventions Therapeutic Interventions Manual Therapy,Patient/ Caregiver Education,Self-Care/ Home Management,Soft Tissue Mobilization,Therapeutic Activities,Therapeutic Exercises Modalities Electric Stimulation,Hot Packs ,Traction- Mechanical, Ultrasound Next Visit Focus/Plan Next Note Type Treatment Note Next Visit Plan Seated on Dynadisc for core strenthening, continue gentle progression of postural correction, spinal mobility, strengthening, and balance ex
--- NOTE | 2022-10-14 11:20 | PT.OTN ---
Current Diagnoses Spinal stenosis, cervical region (10/14/22) Low back pain, unspecified (10/14/22) Pain in thoracic spine (10/14/22) Abnormal posture (10/14/22) Weakness (10/14/22) Physical Therapy Treatment Note PT-OP-A Visit Information Start: 07/15/22 16:45 Freq: Status: Active Protocol: Document 10/14/22 10:41 [facility] (Rec: 10/14/22 11:19 [facility] [id number]) Out-Patient Physical Therapy Visit Information Visit Information Visit Type Treatment Note Visit Start Time 10:35 Visit Stop Time 11:15 Total Visit Minutes 40 Visit Number 16 Number of SEAMER Visits 1 PT-OP-B Current Condition Start: 07/15/22 16:45 Freq: Status: Active Protocol: Document 07/18/22 12:55 SAK (Rec: 07/18/22 13:46 [facility]AK [id number]) Current Condition History of Current Condition Onset Date 2-3 yrs ago Current Complaints mid back pain History of Current Condition gradual onset of pain mid back . No treatment for it; no exercises, no heat or ice. Takes Ibuprofen and Acetaminophen. Sleeps on side or back. Has just resumed doing exercises for shoulder and low back. Sits and lays down a lot. CAn't walk more than a few blocks due to hip and spinal pain. States middle glut doesn't fire, PT some helpful but didn't resolve issue, but pain is mostly throughout spine. Prior Treatments and Tests prior PT for RC, hip, gluts x-rays show excess kyphosis, and lots of arthritis per patient report, in Dr. Flanagan's office. Treatment Goals Patient/Caregiver Goals IMprove her posture, strength, and activity tolerance PT-OP-C Subjective Start: 07/15/22 16:45 Freq: Status: Active Protocol: Document 10/14/22 10:41 NBM (Rec: 10/14/22 11:19 N[facility] [id number]) OP-PT Subjective Patient Comments Patient Comments Pt states she been mindful of keeping her shoulders down. She wants to work on her ex's on her back, on hands and knees, and balance. PT-OP-D Balance Start: 07/15/22 16:45 Freq: Status: Active Protocol: Document 07/16/22 15:28 [facility]AK (Rec: 07/17/22 10:40 SAK [id number]) OP-PT Balance Assessment Sitting Balance Static Sitting Balance Ability Good Dynamic Sitting Balance Ability Good Standing Balance Static Standing Balance Ability Fair Dynamic Standing Balance Ability Poor Standing Balance Comments encouraged patient to use cane or trekking poles due to her expressed fear of falling, difficulty with balance Garza Fall Scale Copyright Permission PT-OP-G Mobility & Gait Start: 07/15/22 16:45 Freq: Status: Active Protocol: Document 07/16/22 15:28 [facility] (Rec: 07/17/22 10:40 [facility] [id number]) OP Mobility Evaluation Bed Mobility Supine to and from Sit instrsucted in log roll for spinal protection, practice x 3 with improving performance with repeititoin OP Gait Assessment Gait Deviations General Gait Pattern Decreased Stride Length, Decreased Feet Clearance PT-OP-H Neuro Start: 07/15/22 16:45 Freq: Status: Active Protocol: Document 07/16/22 15:28 [facility] (Rec: 07/17/22 14:20 [facility] [id number]) Sensation Evaluation Gross Sensation Gross Sensation WNL PT-OP-J Posture/Palpation/Skin Start: 07/15/22 16:45 Freq: Status: Active Protocol: Document 07/16/22 15:28 [facility] (Rec: 07/17/22 14:20 [facility] [id number]) Posture Evaluation Position Standing Head/C-Spine Posture Forward Head T-Spine Posture Increased Kyphosis L-Spine Posture Increased Lordosis Shoulder Posture (L) Rounded,(R) Rounded Scapula Posture (L) Protracted,(R) Protracted Arm Posture (L) Internally Rotated,(R) Internally Rotated Palpation Assessment Location thoracolumbar paraspinals Palpation Location zachery Palpation Findings Soft Tissue Tightness, Tenderness PT-OP-K Range of Motion Start: 07/15/22 16:45 Freq: Status: Active Protocol: Document 07/16/22 15:28 [facility] (Rec: 07/17/22 14:20 [facility] [id number]) Lumbar Spine Range of Motion Lumbar Spine Active ROM Limitations Soft Tissue Tightness,Pain Comments moderately decreased all motions PT-OP-M Strength Start: 07/15/22 16:45 Freq: Status: Active Protocol: Document 07/16/22 15:28 [facility] (Rec: 07/17/22 14:20 [facility] [id number]) Trunk Strength Trunk Manual Muscle Testing Core Stabilization poor Comments Unable to do formal MMT due to pain Hip Strength Hip Manual Muscle Testing zachery Flexion (L2) 3+ Fair+ Extension (S1) 3+ Fair+ Abduction 3+ Fair+ Adduction 3+ Fair+ External Rotation 3+ Fair+ Internal Rotation 3+ Fair+ Comments limited by pain PT-OP-Q Treatments Start: 07/15/22 16:45 Freq: Status: Active Protocol: Document 10/14/22 10:41 N[facility] (Rec: 10/14/22 11:19 [facility] [id number]) Therapeutic Exercises Supine Exercises setmental bridge Equipment Used green ball Reps/Minutes 5 x 5 w/ ball squeeze Comments ecc glute control, PPT pec stretch Reps/Minutes 2x30 Comments no pillows, cues for deep breathing overhead stretch Reps/Minutes 2x30 Comments pillow no longer needed under arms Prone Exercises cat.cow Reps/Minutes 5x Comments cues for segmental movement, core w/ cow Thread the Needle Side bilateral Reps/Minutes x5 ea Comments cue for bending stance UE to reduce posterior capsule tightness Neuro Re-Education Treatment Balance Activities dynadisc Details no UE support Equipment small blue dynadisc, mesh chair Reps/Duration x5 ea Comments seated marching, sit to stand x10, LAQ good feedback response tandem walking Surface level, carpet Equipment // bars, gait belt Reps/Duration 4 x 10ft Comments R foot shorter step length than L SLS, tandem Reps/Duration 3x ea Comments cues with SLS to keep opp foot on ground a little PRN. PT-OP-R Modalities Start: 07/15/22 16:45 Freq: Status: Active Protocol: Document 09/26/22 12:59 [facility] (Rec: 09/26/22 13:46 [facility] [id number]) Hot Pack/Cold Pack Treatment Heat Location thoracolumbar spine Patient Position Hooklying Treatment Duration (minutes) 10 Patient Tolerance Good Comments during supine ex PT-OP-T Assessment and Plan Start: 07/15/22 16:45 Freq: Status: Active Protocol: Document 10/14/22 10:41 [facility] (Rec: 10/14/22 11:19 [facility] [id number]) Physical Therapy Assessment Goals activity tolerance Impairment Oswestry disability index score 44% Short Term Goal (STG) Decrease Oswestry score to no greater than 30% as measure of improved activity tolerance and function 08/21/22: good goal progress STG Duration 08/15/22 [employer] Goal (LTG) Decrease Oswestry score to no greater than 20% as measur of improved activity tolerance and function in her day to day life. LTG Duration 10/15/22 weakness Impairment trunk and core muscle weakness Impairment weakness throughout trunk musculature Short Term Goal (STG) patient to be instructed in HEP for purposes of trunk and core strengthening 08/15/22: ongoing STG Duration 08/15/22 [employer] Goal (LTG) Patient will be independent and compliant with HEP and demonstrate improved muscle strength throughout trunk and core LTG Duration 10/15/22 Two Impairment pain thoracolumbar Impairment Pain as high as 6/10 limiting ability to stand, walk, and do usual activities Short Term Goal (STG) Decrease pain to no greater than 4/10 with all usual activities 08/15/22: good goal progress STG Duration 08/15/22 [employer] Goal (LTG) Decrease pain to no greater than 2/10 with patient able to resume more physical activities without difficulty LTG Duration 10/15/22 1 Impairment postural dysfunction Impairment excess thoracic kyphosis and lumbar lordosis Short Term Goal (STG) Patient to receive postural education and therapeutic exercises for postural correction 08/21/22: good goal progress STG Duration 08/15/22 [employer] Goal (LTG) Patient to demonstrate improved postural awareness statically and dynamically with functional movement and activities 08/21/22: goal progress LTG Duration 10/15/22 Assessment Summary Assessment Pt demonstrates HEP with good self-awareness for form but requires initial cues for quadruped ex's to weightshift forward over hands, and to bend stand UE to reduce posterior shoulder discomfort with thread the needle ex. Pt demonstrates good core activation and upright posture with seated balance activities using dynadisc, and can perform supine overhead stretch using one pillow instead of two pillows, demonstrating improved mobility. Physical Therapy Plan Frequency and Duration Frequency of Treatment 2x/Week Duration of treatment (weeks) 12 Plan of Care Start Date 07/16/22 Plan of Care End Date 10/14/22 Therapeutic Interventions Therapeutic Interventions Manual Therapy,Patient/ Caregiver Education,Self-Care/ Home Management,Soft Tissue Mobilization,Therapeutic Activities,Therapeutic Exercises Modalities Electric Stimulation,Hot Packs ,Traction- Mechanical, Ultrasound Next Visit Focus/Plan Next Note Type Treatment Note Next Visit Plan Seated on Dynadisc for core strenthening, continue gentle progression of postural correction, spinal mobility, strengthening, and balance ex
--- NOTE | 2022-10-17 08:09 | PT.OTRE ---
Current Diagnoses Spinal stenosis, cervical region (10/17/22) Low back pain, unspecified (10/17/22) Pain in thoracic spine (10/17/22) Abnormal posture (10/17/22) Weakness (10/17/22) Past Medical History (Last Reviewed 03/07/22 @ 08:15 by Juanita Valladares PA-C) Cancer Cataracts, bilateral (~2015) Chicken pox Chronic renal failure, stage 3 (moderate) Constipation Cyclothymia Depression Fecal incontinence (~2014) Fractures (~2004) Genital warts (~1984) Heart palpitations History of urinary incontinence (~2014) Incomplete left bundle branch block (LBBB) Lumbar spinal stenosis Measles Mixed urge and stress incontinence Osteoporosis, unspecified Overactive bladder Sciatica Urge incontinence Urinary frequency UTI (urinary tract infection) Viral cardiomyopathy Surgical History (Last Reviewed 03/07/22 @ 08:15 by Juanita Valladares PA-C) Anesthesia H/O hernia repair History of vaginal hysterectomy (~1996) Melanoma (~1981) Visit Care Team Role Provider Type Joshua Chin MD Family Provider Physician Primary Care Provider Specialty: Internal Medicine Address: [address] [place] [address], [address], [address] Email: [email or web address] Octavia Mitchell MD Attending Provider Physician Referring Provider Specialty: Orthopedics Orthopedic Surgery Address: [address] [place] [address], [id number] Email: [email or web address] Physical Therapy Re-Evaluation PT-OP-A Visit Information Start: 07/15/22 16:45 Freq: Status: Active Protocol: Document 10/17/22 09:00 [facility] (Rec: 10/17/22 09:48 [facility] [id number]) Out-Patient Physical Therapy Visit Information Visit Information Visit Type Treatment Note Visit Start Time 09:00 Visit Stop Time 09:55 Total Visit Minutes 55 Visit Number 17 Number of YARN DUMPER Visits 0 Evaluation Information Evaluation Date 07/16/22 Precautions Precautions PMH: neck pain, left RC repair s/p fall, back pain, hip pain , balance dysfunction PT-OP-B Current Condition Start: 07/15/22 16:45 Freq: Status: Active Protocol: Document 07/18/22 12:55 [facility] (Rec: 07/18/22 13:46 [facility] [id number]) Current Condition History of Current Condition Onset Date 2-3 yrs ago Current Complaints mid back pain History of Current Condition gradual onset of pain mid back . No treatment for it; no exercises, no heat or ice. Takes Ibuprofen and Acetaminophen. Sleeps on side or back. Has just resumed doing exercises for shoulder and low back. Sits and lays down a lot. CAn't walk more than a few blocks due to hip and spinal pain. States middle glut doesn't fire, PT some helpful but didn't resolve issue, but pain is mostly throughout spine. Prior Treatments and Tests prior PT for RC, hip, gluts x-rays show excess kyphosis, and lots of arthritis per patient report, in Dr. Flanagan's office. Treatment Goals Patient/Caregiver Goals IMprove her posture, strength, and activity tolerance PT-OP-C Subjective Start: 07/15/22 16:45 Freq: Status: Active Protocol: Document 10/17/22 09:00 [facility] (Rec: 10/17/22 09:48 [facility] [id number]) OP-PT Subjective Patient Comments Patient Comments WAnts to work more on balance exercises, quadriped ex. No new c/o.Compliant to HEP PT-OP-D Balance Start: 07/15/22 16:45 Freq: Status: Active Protocol: Document 07/16/22 15:28 [facility] (Rec: 07/17/22 10:40 [facility] [id number]) OP-PT Balance Assessment Sitting Balance Static Sitting Balance Ability Good Dynamic Sitting Balance Ability Good Standing Balance Static Standing Balance Ability Fair Dynamic Standing Balance Ability Poor Standing Balance Comments encouraged patient to use cane or trekking poles due to her expressed fear of falling, difficulty with balance Garza Fall Scale Copyright Permission Greg CELMONS, Greg RM, Wil SJ. Development of a scale to identify the fall- prone patient. Can J Aging 1989;8;366-7. Paulino Garza (2009). Preventing patient falls. (2nd ed). [place]: Aguirre. PT-OP-G Mobility & Gait Start: 07/15/22 16:45 Freq: Status: Active Protocol: Document 07/16/22 15:28 [facility] (Rec: 07/17/22 10:40 [facility] [id number]) OP Mobility Evaluation Bed Mobility Supine to and from Sit instrsucted in log roll for spinal protection, practice x 3 with improving performance with repeititoin OP Gait Assessment Gait Deviations General Gait Pattern Decreased Stride Length, Decreased Feet Clearance PT-OP-H Neuro Start: 07/15/22 16:45 Freq: Status: Active Protocol: Document 07/16/22 15:28 [facility] (Rec: 07/17/22 14:20 [facility] [id number]) Sensation Evaluation Gross Sensation Gross Sensation WNL PT-OP-J Posture/Palpation/Skin Start: 07/15/22 16:45 Freq: Status: Active Protocol: Document 07/16/22 15:28 [facility] (Rec: 07/17/22 14:20 [facility] [id number]) Posture Evaluation Position Standing Head/C-Spine Posture Forward Head T-Spine Posture Increased Kyphosis L-Spine Posture Increased Lordosis Shoulder Posture (L) Rounded,(R) Rounded Scapula Posture (L) Protracted,(R) Protracted Arm Posture (L) Internally Rotated,(R) Internally Rotated Palpation Assessment Location thoracolumbar paraspinals Palpation Location zachery Palpation Findings Soft Tissue Tightness, Tenderness PT-OP-K Range of Motion Start: 07/15/22 16:45 Freq: Status: Active Protocol: Document 07/16/22 15:28 [facility] (Rec: 07/17/22 14:20 [facility] [id number]) Lumbar Spine Range of Motion Lumbar Spine Active ROM Limitations Soft Tissue Tightness,Pain Comments moderately decreased all motions PT-OP-M Strength Start: 07/15/22 16:45 Freq: Status: Active Protocol: Document 07/16/22 15:28 [facility] (Rec: 07/17/22 14:20 [facility] [id number]) Trunk Strength Trunk Manual Muscle Testing Core Stabilization poor Comments Unable to do formal MMT due to pain Hip Strength Hip Manual Muscle Testing zachery Flexion (L2) 3+ Fair+ Extension (S1) 3+ Fair+ Abduction 3+ Fair+ Adduction 3+ Fair+ External Rotation 3+ Fair+ Internal Rotation 3+ Fair+ Comments limited by pain PT-OP-Q Treatments Start: 07/15/22 16:45 Freq: Status: Active Protocol: Document 10/17/22 09:00 [facility] (Rec: 10/17/22 09:48 [facility] [id number]) Therapeutic Exercises Supine Exercises setmental bridge Equipment Used green ball Reps/Minutes 5 x 5 w/ ball squeeze Comments ecc glute control, PPT pec stretch Reps/Minutes 2x30 Comments no pillows, cues for deep breathing overhead stretch Reps/Minutes 2x30 Comments pillow no longer needed under arms goal post Supine Exercise Name tactile cue to keep shoulders down Reps/Minutes 10x Comments emphasis on the external rot at should Prone Exercises cat.cow Reps/Minutes 5x Comments cues for segmental movement, core w/ cow Thread the Needle Side bilateral Reps/Minutes x5 ea Comments cue for bending stance UE to reduce posterior capsule tightness Quadruped Prone Exercise Name alternating UE, alternating LE 's Side bilateral Reps/Minutes 5 x 2-3 s ea (hand hover), 3x LE lift Comments vc to weightshift over hands, keep back and pelvis level. Sidelying Exercises Hip abduction Reps/Minutes 8x Comments only able to lift 2-3 inches open book Sidelying Exercise Name active first, then hold for stretch with deep breathing Reps/Minutes 5x Comments gentle, cue to tuck chin before resting head, stop for deep breath Neuro Re-Education Treatment Balance Activities tiltboard Details balance and wt shift Equipment tiltboard Reps/Duration 2 min Comments min UE support on parallel bars dynadisc Details no UE support Equipment small blue dynadisc, mesh chair Reps/Duration x5 ea Comments seated marching, sit to stand x10, LAQ good feedback response Sitting on disc and 2nd disc under feet: bal and head turns tandem walking Details and tandem stand Surface level, carpet Equipment // bars, gait belt Reps/Duration 4 x 10ft Comments R foot shorter step length than L SLS, tandem Reps/Duration 3x ea Comments cues with SLS to keep opp foot on ground a little PRN. PT-OP-R Modalities Start: 07/15/22 16:45 Freq: Status: Active Protocol: Document 09/26/22 12:59 [facility] (Rec: 09/26/22 13:46 [facility] [id number]) Hot Pack/Cold Pack Treatment Heat Location thoracolumbar spine Patient Position Hooklying Treatment Duration (minutes) 10 Patient Tolerance Good Comments during supine ex PT-OP-T Assessment and Plan Start: 07/15/22 16:45 Freq: Status: Active Protocol: Document 10/17/22 09:00 [facility] (Rec: 10/17/22 09:48 [facility] [id number]) Physical Therapy Assessment Goals activity tolerance Impairment Oswestry disability index score 44% Short Term Goal (STG) Decrease Oswestry score to no greater than 30% as measure of improved activity tolerance and function 08/21/22: good goal progress STG Duration goal met Halfway Goal (LTG) Decrease Oswestry score to no greater than 20% as measur of improved activity tolerance and function in her day to day life. LTG Duration 11/18/22 weakness Impairment trunk and core muscle weakness Impairment weakness throughout trunk musculature Short Term Goal (STG) patient to be instructed in HEP for purposes of trunk and core strengthening 08/15/22: ongoing STG Duration goal met Border Measurer Goal (LTG) Patient will be independent and compliant with HEP and demonstrate improved muscle strength throughout trunk and core LTG Duration 11/18/22 Two Impairment pain thoracolumbar Impairment Pain as high as 6/10 limiting ability to stand, walk, and do usual activities Short Term Goal (STG) Decrease pain to no greater than 4/10 with all usual activities 08/15/22: good goal progress STG Duration goal met Border Measurer Goal (LTG) Decrease pain to no greater than 2/10 with patient able to resume more physical activities without difficulty LTG Duration 11/18/22 1 Impairment postural dysfunction Impairment excess thoracic kyphosis and lumbar lordosis Short Term Goal (STG) Patient to receive postural education and therapeutic exercises for postural correction 08/21/22: good goal progress STG Duration goal met Border Measurer Goal (LTG) Patient to demonstrate improved postural awareness statically and dynamically with functional movement and activities 08/21/22: goal progress LTG Duration 11/18/22 Progress Towards Goals Progress Towards Goals Progressing Toward Goals Assessment Summary Assessment Added Dynadisc under feet for seated bal, progress to dynamic LE lift next session. Also added sidelying hip abduction and and quadriped LE lift to HEP after cues for level pelvis. Patient asking appropriate question, needs cues to slow down with flexibility exercises. Steady progress toward goals. Physical Therapy Plan Frequency and Duration Frequency of Treatment 2x/Week Duration of treatment (weeks) 4 Plan of Care Start Date 10/17/22 Plan of Care End Date 11/18/22 Therapeutic Interventions Therapeutic Interventions Manual Therapy,Patient/ Caregiver Education,Self-Care/ Home Management,Soft Tissue Mobilization,Therapeutic Activities,Therapeutic Exercises Modalities Electric Stimulation,Hot Packs ,Traction- Mechanical, Ultrasound Next Visit Focus/Plan Next Note Type Treatment Note Next Visit Plan Re-check new HEP ex for correct performance, progres Dynadisc ex, try lean back.
--- NOTE | 2022-10-17 08:09 | PT.OPPOC ---
Physical, Occupational & Speech Therapy At [facility] Current Diagnoses Spinal stenosis, cervical region (10/17/22) Low back pain, unspecified (10/17/22) Pain in thoracic spine (10/17/22) Abnormal posture (10/17/22) Weakness (10/17/22) Visit Care Team Role Provider Type Joshua Chin MD Family Provider Physician Primary Care Provider Specialty: Internal Medicine Address: [address] [place] [address], [facility] [address], [address] Email: [email or web address] Octavia Mitchell MD Attending Provider Physician Referring Provider Specialty: Orthopedics Orthopedic Surgery Address: [address] [place] [address], [address] Email: [email or web address] Plan Of Care PT-OP-T Assessment and Plan Start: 07/15/22 16:45 Freq: Status: Active Protocol: Document 10/17/22 09:00 [facility] (Rec: 10/17/22 09:48 [facility] [id number]) Physical Therapy Assessment Goals activity tolerance Impairment Oswestry disability index score 44% Short Term Goal (STG) Decrease Oswestry score to no greater than 30% as measure of improved activity tolerance and function 08/21/22: good goal progress STG Duration goal met Detention Goal (LTG) Decrease Oswestry score to no greater than 20% as measur of improved activity tolerance and function in her day to day life. LTG Duration 11/18/22 weakness Impairment trunk and core muscle weakness Impairment weakness throughout trunk musculature Short Term Goal (STG) patient to be instructed in HEP for purposes of trunk and core strengthening 08/15/22: ongoing STG Duration goal met Hand Ornament Maker Goal (LTG) Patient will be independent and compliant with HEP and demonstrate improved muscle strength throughout trunk and core LTG Duration 11/18/22 Two Impairment pain thoracolumbar Impairment Pain as high as 6/10 limiting ability to stand, walk, and do usual activities Short Term Goal (STG) Decrease pain to no greater than 4/10 with all usual activities 08/15/22: good goal progress STG Duration goal met Detention Goal (LTG) Decrease pain to no greater than 2/10 with patient able to resume more physical activities without difficulty LTG Duration 11/18/22 1 Impairment postural dysfunction Impairment excess thoracic kyphosis and lumbar lordosis Short Term Goal (STG) Patient to receive postural education and therapeutic exercises for postural correction 08/21/22: good goal progress STG Duration goal met Detention Goal (LTG) Patient to demonstrate improved postural awareness statically and dynamically with functional movement and activities 08/21/22: goal progress LTG Duration 11/18/22 Progress Towards Goals Progress Towards Goals Progressing Toward Goals Assessment Summary Assessment Added Dynadisc under feet for seated bal, progress to dynamic LE lift next session. Also added sidelying hip abduction and and quadriped LE lift to HEP after cues for level pelvis. Patient asking appropriate question, needs cues to slow down with flexibility exercises. Steady progress toward goals. Physical Therapy Plan Frequency and Duration Frequency of Treatment 2x/Week Duration of treatment (weeks) 4 Plan of Care Start Date 10/17/22 Plan of Care End Date 11/18/22 Therapeutic Interventions Therapeutic Interventions Manual Therapy,Patient/ Caregiver Education,Self-Care/ Home Management,Soft Tissue Mobilization,Therapeutic Activities,Therapeutic Exercises Modalities Electric Stimulation,Hot Packs ,Traction- Mechanical, Ultrasound Next Visit Focus/Plan Next Note Type Treatment Note Next Visit Plan Re-check new HEP ex for correct performance, progres Dynadisc ex, try lean back. Plan of Care Dates Plan of Care Start Date 10/17/22 Plan of Care End Date 11/18/22 Electronically Signed by: Opal Tineo, PT 10/22/22 0809 If you are in agreement with this Plan of Care, please return a signed and dated copy. I have reviewed this Plan of Care and certify that the skilled therapy services above are required to meet the patient?s needs. Physician Signature Date Printed Name and Credentials Clinical Instructor Signature Printed Name and Credentials
--- NOTE | 2022-10-17 10:51 | PT.OTN ---
Current Diagnoses Spinal stenosis, cervical region (10/17/22) Low back pain, unspecified (10/17/22) Pain in thoracic spine (10/17/22) Abnormal posture (10/17/22) Weakness (10/17/22) Physical Therapy Treatment Note PT-OP-A Visit Information Start: 07/15/22 16:45 Freq: Status: Active Protocol: Document 10/17/22 09:00 SAK (Rec: 10/17/22 09:48 [facility] [id number]) Out-Patient Physical Therapy Visit Information Visit Information Visit Type Treatment Note Visit Start Time 09:00 Visit Stop Time 09:55 Total Visit Minutes 55 Visit Number 17 Number of MERCHANDISING EXECUTION MANAGER Visits 0 Evaluation Information Evaluation Date 07/16/22 Precautions Precautions PMH: neck pain, left RC repair s/p fall, back pain, hip pain , balance dysfunction PT-OP-B Current Condition Start: 07/15/22 16:45 Freq: Status: Active Protocol: Document 07/18/22 12:55 SAK (Rec: 07/18/22 13:46 SAK [id number]) Current Condition History of Current Condition Onset Date 2-3 yrs ago Current Complaints mid back pain History of Current Condition gradual onset of pain mid back . No treatment for it; no exercises, no heat or ice. Takes Ibuprofen and Acetaminophen. Sleeps on side or back. Has just resumed doing exercises for shoulder and low back. Sits and lays down a lot. CAn't walk more than a few blocks due to hip and spinal pain. States middle glut doesn't fire, PT some helpful but didn't resolve issue, but pain is mostly throughout spine. Prior Treatments and Tests prior PT for RC, hip, gluts x-rays show excess kyphosis, and lots of arthritis per patient report, in Dr. Flanagan's office. Treatment Goals Patient/Caregiver Goals IMprove her posture, strength, and activity tolerance PT-OP-C Subjective Start: 07/15/22 16:45 Freq: Status: Active Protocol: Document 10/17/22 09:00 SAK (Rec: 10/17/22 09:48 SAK [id number]) OP-PT Subjective Patient Comments Patient Comments WAnts to work more on balance exercises, quadriped ex. No new c/o.Compliant to HEP PT-OP-D Balance Start: 07/15/22 16:45 Freq: Status: Active Protocol: Document 07/16/22 15:28 [facility] (Rec: 07/17/22 10:40 [facility] [id number]) OP-PT Balance Assessment Sitting Balance Static Sitting Balance Ability Good Dynamic Sitting Balance Ability Good Standing Balance Static Standing Balance Ability Fair Dynamic Standing Balance Ability Poor Standing Balance Comments encouraged patient to use cane or trekking poles due to her expressed fear of falling, difficulty with balance Garza Fall Scale Copyright Permission PT-OP-G Mobility & Gait Start: 07/15/22 16:45 Freq: Status: Active Protocol: Document 07/16/22 15:28 [facility] (Rec: 07/17/22 10:40 [facility] [id number]) OP Mobility Evaluation Bed Mobility Supine to and from Sit instrsucted in log roll for spinal protection, practice x 3 with improving performance with repeititoin OP Gait Assessment Gait Deviations General Gait Pattern Decreased Stride Length, Decreased Feet Clearance PT-OP-H Neuro Start: 07/15/22 16:45 Freq: Status: Active Protocol: Document 07/16/22 15:28 [facility] (Rec: 07/17/22 14:20 [facility] [id number]) Sensation Evaluation Gross Sensation Gross Sensation WNL PT-OP-J Posture/Palpation/Skin Start: 07/15/22 16:45 Freq: Status: Active Protocol: Document 07/16/22 15:28 [facility] (Rec: 07/17/22 14:20 [facility] [id number]) Posture Evaluation Position Standing Head/C-Spine Posture Forward Head T-Spine Posture Increased Kyphosis L-Spine Posture Increased Lordosis Shoulder Posture (L) Rounded,(R) Rounded Scapula Posture (L) Protracted,(R) Protracted Arm Posture (L) Internally Rotated,(R) Internally Rotated Palpation Assessment Location thoracolumbar paraspinals Palpation Location zachery Palpation Findings Soft Tissue Tightness, Tenderness PT-OP-K Range of Motion Start: 07/15/22 16:45 Freq: Status: Active Protocol: Document 07/16/22 15:28 [facility] (Rec: 07/17/22 14:20 [facility] [id number]) Lumbar Spine Range of Motion Lumbar Spine Active ROM Limitations Soft Tissue Tightness,Pain Comments moderately decreased all motions PT-OP-M Strength Start: 07/15/22 16:45 Freq: Status: Active Protocol: Document 07/16/22 15:28 [facility] (Rec: 07/17/22 14:20 [facility] [id number]) Trunk Strength Trunk Manual Muscle Testing Core Stabilization poor Comments Unable to do formal MMT due to pain Hip Strength Hip Manual Muscle Testing zachery Flexion (L2) 3+ Fair+ Extension (S1) 3+ Fair+ Abduction 3+ Fair+ Adduction 3+ Fair+ External Rotation 3+ Fair+ Internal Rotation 3+ Fair+ Comments limited by pain PT-OP-Q Treatments Start: 07/15/22 16:45 Freq: Status: Active Protocol: Document 10/17/22 09:00 [facility] (Rec: 10/17/22 09:48 [facility] [id number]) Therapeutic Exercises Supine Exercises setmental bridge Equipment Used green ball Reps/Minutes 5 x 5 w/ ball squeeze Comments ecc glute control, PPT pec stretch Reps/Minutes 2x30 Comments no pillows, cues for deep breathing overhead stretch Reps/Minutes 2x30 Comments pillow no longer needed under arms goal post Supine Exercise Name tactile cue to keep shoulders down Reps/Minutes 10x Comments emphasis on the external rot at should Prone Exercises cat.cow Reps/Minutes 5x Comments cues for segmental movement, core w/ cow Thread the Needle Side bilateral Reps/Minutes x5 ea Comments cue for bending stance UE to reduce posterior capsule tightness Quadruped Prone Exercise Name alternating UE, alternating LE 's Side bilateral Reps/Minutes 5 x 2-3 s ea (hand hover), 3x LE lift Comments vc to weightshift over hands, keep back and pelvis level. Sidelying Exercises Hip abduction Reps/Minutes 8x Comments only able to lift 2-3 inches open book Sidelying Exercise Name active first, then hold for stretch with deep breathing Reps/Minutes 5x Comments gentle, cue to tuck chin before resting head, stop for deep breath Neuro Re-Education Treatment Balance Activities tiltboard Details balance and wt shift Equipment tiltboard Reps/Duration 2 min Comments min UE support on parallel bars dynadisc Details no UE support Equipment small blue dynadisc, mesh chair Reps/Duration x5 ea Comments seated marching, sit to stand x10, LAQ good feedback response Sitting on disc and 2nd disc under feet: bal and head turns tandem walking Details and tandem stand Surface level, carpet Equipment // bars, gait belt Reps/Duration 4 x 10ft Comments R foot shorter step length than L SLS, tandem Reps/Duration 3x ea Comments cues with SLS to keep opp foot on ground a little PRN. PT-OP-R Modalities Start: 07/15/22 16:45 Freq: Status: Active Protocol: Document 09/26/22 12:59 SAK (Rec: 09/26/22 13:46 SAK [id number]) Hot Pack/Cold Pack Treatment Heat Location thoracolumbar spine Patient Position Hooklying Treatment Duration (minutes) 10 Patient Tolerance Good Comments during supine ex PT-OP-T Assessment and Plan Start: 07/15/22 16:45 Freq: Status: Active Protocol: Document 10/17/22 09:00 SAK (Rec: 10/17/22 09:48 [facility] [id number]) Physical Therapy Assessment Goals activity tolerance Impairment Oswestry disability index score 44% Short Term Goal (STG) Decrease Oswestry score to no greater than 30% as measure of improved activity tolerance and function 08/21/22: good goal progress STG Duration 08/15/22 Instrument Fitter Goal (LTG) Decrease Oswestry score to no greater than 20% as measur of improved activity tolerance and function in her day to day life. LTG Duration 10/15/22 weakness Impairment trunk and core muscle weakness Impairment weakness throughout trunk musculature Short Term Goal (STG) patient to be instructed in HEP for purposes of trunk and core strengthening 08/15/22: ongoing STG Duration 08/15/22 Prison Goal (LTG) Patient will be independent and compliant with HEP and demonstrate improved muscle strength throughout trunk and core LTG Duration 10/15/22 Two Impairment pain thoracolumbar Impairment Pain as high as 6/10 limiting ability to stand, walk, and do usual activities Short Term Goal (STG) Decrease pain to no greater than 4/10 with all usual activities 08/15/22: good goal progress STG Duration 08/15/22 Instrument Fitter Goal (LTG) Decrease pain to no greater than 2/10 with patient able to resume more physical activities without difficulty LTG Duration 10/15/22 1 Impairment postural dysfunction Impairment excess thoracic kyphosis and lumbar lordosis Short Term Goal (STG) Patient to receive postural education and therapeutic exercises for postural correction 08/21/22: good goal progress STG Duration 08/15/22 Prison Goal (LTG) Patient to demonstrate improved postural awareness statically and dynamically with functional movement and activities 08/21/22: goal progress LTG Duration 10/15/22 Assessment Summary Assessment Added Dynadisc under feet for seated bal, progress to dynamic LE lift next session. Also added sidelying hip abduction and and quadriped LE lift to HEP after cues for level pelvis. Patient asking appropriate question, needs cues to slow down with flexibility exercises. Physical Therapy Plan Frequency and Duration Frequency of Treatment 2x/Week Duration of treatment (weeks) 12 Plan of Care Start Date 07/16/22 Plan of Care End Date 10/14/22 Therapeutic Interventions Therapeutic Interventions Manual Therapy,Patient/ Caregiver Education,Self-Care/ Home Management,Soft Tissue Mobilization,Therapeutic Activities,Therapeutic Exercises Modalities Electric Stimulation,Hot Packs ,Traction- Mechanical, Ultrasound Next Visit Focus/Plan Next Note Type Treatment Note Next Visit Plan Re-check new HEP ex for correct performance, progres Dynadisc ex, try lean back.
--- NOTE | 2022-10-24 10:33 | PT.OTN ---
Current Diagnoses Spinal stenosis, cervical region (10/24/22) Low back pain, unspecified (10/24/22) Pain in thoracic spine (10/24/22) Abnormal posture (10/24/22) Weakness (10/24/22) Physical Therapy Treatment Note PT-OP-A Visit Information Start: 07/15/22 16:45 Freq: Status: Active Protocol: Document 10/24/22 09:50 SAK (Rec: 10/24/22 10:33 SAK [id number]) Out-Patient Physical Therapy Visit Information Visit Information Visit Type Treatment Note Visit Start Time 09:48 Total Visit Minutes 52 Visit Number 18 Evaluation Information Evaluation Date 07/16/22 Precautions Precautions PMH: neck pain, left RC repair s/p fall, back pain, hip pain , balance dysfunction PT-OP-B Current Condition Start: 07/15/22 16:45 Freq: Status: Active Protocol: Document 07/18/22 12:55 SAK (Rec: 07/18/22 13:46 SAK [id number]) Current Condition History of Current Condition Onset Date 2-3 yrs ago Current Complaints mid back pain History of Current Condition gradual onset of pain mid back . No treatment for it; no exercises, no heat or ice. Takes Ibuprofen and Acetaminophen. Sleeps on side or back. Has just resumed doing exercises for shoulder and low back. Sits and lays down a lot. CAn't walk more than a few blocks due to hip and spinal pain. States middle glut doesn't fire, PT some helpful but didn't resolve issue, but pain is mostly throughout spine. Prior Treatments and Tests prior PT for RC, hip, gluts x-rays show excess kyphosis, and lots of arthritis per patient report, in Dr. Flanagan's office. Treatment Goals Patient/Caregiver Goals IMprove her posture, strength, and activity tolerance PT-OP-C Subjective Start: 07/15/22 16:45 Freq: Status: Active Protocol: Document 10/17/22 09:00 SAK (Rec: 10/17/22 09:48 SAK [id number]) OP-PT Subjective Patient Comments Patient Comments WAnts to work more on balance exercises, quadriped ex. No new c/o.Compliant to HEP PT-OP-D Balance Start: 07/15/22 16:45 Freq: Status: Active Protocol: Document 07/16/22 15:28 SAK (Rec: 07/17/22 10:40 [facility] [id number]) OP-PT Balance Assessment Sitting Balance Static Sitting Balance Ability Good Dynamic Sitting Balance Ability Good Standing Balance Static Standing Balance Ability Fair Dynamic Standing Balance Ability Poor Standing Balance Comments encouraged patient to use cane or trekking poles due to her expressed fear of falling, difficulty with balance Garza Fall Scale Copyright Permission PT-OP-G Mobility & Gait Start: 07/15/22 16:45 Freq: Status: Active Protocol: Document 07/16/22 15:28 [facility] (Rec: 07/17/22 10:40 [facility] [id number]) OP Mobility Evaluation Bed Mobility Supine to and from Sit instrsucted in log roll for spinal protection, practice x 3 with improving performance with repeititoin OP Gait Assessment Gait Deviations General Gait Pattern Decreased Stride Length, Decreased Feet Clearance PT-OP-H Neuro Start: 07/15/22 16:45 Freq: Status: Active Protocol: Document 07/16/22 15:28 [facility] (Rec: 07/17/22 14:20 [facility] [id number]) Sensation Evaluation Gross Sensation Gross Sensation WNL PT-OP-J Posture/Palpation/Skin Start: 07/15/22 16:45 Freq: Status: Active Protocol: Document 07/16/22 15:28 [facility] (Rec: 07/17/22 14:20 [facility] [id number]) Posture Evaluation Position Standing Head/C-Spine Posture Forward Head T-Spine Posture Increased Kyphosis L-Spine Posture Increased Lordosis Shoulder Posture (L) Rounded,(R) Rounded Scapula Posture (L) Protracted,(R) Protracted Arm Posture (L) Internally Rotated,(R) Internally Rotated Palpation Assessment Location thoracolumbar paraspinals Palpation Location zachery Palpation Findings Soft Tissue Tightness, Tenderness PT-OP-K Range of Motion Start: 07/15/22 16:45 Freq: Status: Active Protocol: Document 07/16/22 15:28 [facility] (Rec: 07/17/22 14:20 [facility] [id number]) Lumbar Spine Range of Motion Lumbar Spine Active ROM Limitations Soft Tissue Tightness,Pain Comments moderately decreased all motions PT-OP-M Strength Start: 07/15/22 16:45 Freq: Status: Active Protocol: Document 07/16/22 15:28 [facility] (Rec: 07/17/22 14:20 [facility] [id number]) Trunk Strength Trunk Manual Muscle Testing Core Stabilization poor Comments Unable to do formal MMT due to pain Hip Strength Hip Manual Muscle Testing zachery Flexion (L2) 3+ Fair+ Extension (S1) 3+ Fair+ Abduction 3+ Fair+ Adduction 3+ Fair+ External Rotation 3+ Fair+ Internal Rotation 3+ Fair+ Comments limited by pain PT-OP-Q Treatments Start: 07/15/22 16:45 Freq: Status: Active Protocol: Document 10/24/22 09:50 SAK (Rec: 10/24/22 10:33 SAK [id number]) Therapeutic Exercises Supine Exercises single leg bridge Reps/Minutes 8x Comments cues for level pelvis pec stretch Reps/Minutes 2x30 Comments no pillows, cues for deep breathing Prone Exercises cat.cow Reps/Minutes 5x Comments cues for segmental movement, core w/ cow Thread the Needle Side bilateral Reps/Minutes x5 ea Comments cue for bending stance UE to reduce posterior capsule tightness Quadruped Prone Exercise Name Leg only today Side bilateral Reps/Minutes 5x Comments cues for level pelvis Sidelying Exercises Hip abduction Reps/Minutes 8x Comments only able to lift 2-3 inches open book Sidelying Exercise Name active first, then hold for stretch with deep breathing Reps/Minutes 5x Comments gentle, cue to tuck chin before resting head, stop for deep breath Neuro Re-Education Treatment Balance Activities tiltboard Details balance and wt shift Equipment tiltboard Reps/Duration 2 min Comments min UE support on parallel bars tandem walking Details and tandem stand Surface level, carpet Equipment // bars, gait belt Reps/Duration 4 x 10ft Comments R foot shorter step length than L SLS, tandem Reps/Duration 3x ea Comments cues with SLS to keep opp foot on ground a little PRN. PT-OP-R Modalities Start: 07/15/22 16:45 Freq: Status: Active Protocol: Document 09/26/22 12:59 SAK (Rec: 09/26/22 13:46 [facility] [id number]) Hot Pack/Cold Pack Treatment Heat Location thoracolumbar spine Patient Position Hooklying Treatment Duration (minutes) 10 Patient Tolerance Good Comments during supine ex PT-OP-T Assessment and Plan Start: 07/15/22 16:45 Freq: Status: Active Protocol: Document 10/24/22 09:50 SAK (Rec: 10/24/22 10:33 [facility] [id number]) Physical Therapy Assessment Goals activity tolerance Impairment Oswestry disability index score 44% Short Term Goal (STG) Decrease Oswestry score to no greater than 30% as measure of improved activity tolerance and function 08/21/22: good goal progress STG Duration goal met Fpc Goal (LTG) Decrease Oswestry score to no greater than 20% as measur of improved activity tolerance and function in her day to day life. 10/23/28: LTG Duration 11/18/22 weakness Impairment trunk and core muscle weakness Impairment weakness throughout trunk musculature Short Term Goal (STG) patient to be instructed in HEP for purposes of trunk and core strengthening 08/15/22: ongoing STG Duration goal met Fpc Goal (LTG) Patient will be independent and compliant with HEP and demonstrate improved muscle strength throughout trunk and core 10/23/22; good progress toward goals LTG Duration 11/18/22 Two Impairment pain thoracolumbar Impairment Pain as high as 6/10 limiting ability to stand, walk, and do usual activities Short Term Goal (STG) Decrease pain to no greater than 4/10 with all usual activities 08/15/22: good goal progress STG Duration goal met Carbonation Tester Goal (LTG) Decrease pain to no greater than 2/10 with patient able to resume more physical activities without difficulty 10/23/22:still pain across shoulder blades LTG Duration 11/18/22 1 Impairment postural dysfunction Impairment excess thoracic kyphosis and lumbar lordosis Short Term Goal (STG) Patient to receive postural education and therapeutic exercises for postural correction 08/21/22: good goal progress STG Duration goal met Carbonation Tester Goal (LTG) Patient to demonstrate improved postural awareness statically and dynamically with functional movement and activities 08/21/22: goal progress 10/23/22: good goal progress with less cues required LTG Duration 11/18/22 Assessment Summary Assessment Patient continues to tolerate progression of ther ex for balance, core strengthening, flexibilty. Updated HEP with single leg bridge, bird dog ( LE's only today), standing hip abd. Physical Therapy Plan Frequency and Duration Frequency of Treatment 2x/Week Duration of treatment (weeks) 4 Plan of Care Start Date 10/17/22 Plan of Care End Date 11/18/22 Therapeutic Interventions Therapeutic Interventions Manual Therapy,Patient/ Caregiver Education,Self-Care/ Home Management,Soft Tissue Mobilization,Therapeutic Activities,Therapeutic Exercises Modalities Electric Stimulation,Hot Packs ,Traction- Mechanical, Ultrasound Next Visit Focus/Plan Next Note Type Treatment Note Next Visit Plan Emphasis on balance, progression of core and hip strengthening, postural awareness
--- NOTE | 2022-10-29 17:14 | PT.OTN ---
Current Diagnoses Spinal stenosis, cervical region (10/29/22) Low back pain, unspecified (10/29/22) Pain in thoracic spine (10/29/22) Abnormal posture (10/29/22) Weakness (10/29/22) Physical Therapy Treatment Note PT-OP-A Visit Information Start: 07/15/22 16:45 Freq: Status: Active Protocol: Document 10/29/22 14:28 NBM (Rec: 10/29/22 17:09 NBM [id number]) Out-Patient Physical Therapy Visit Information Visit Information Visit Type Treatment Note Visit Start Time 14:35 Visit Stop Time 15:35 Total Visit Minutes 60 Visit Number 19 Number of PET CARE ATTENDANT Visits 1 PT-OP-B Current Condition Start: 07/15/22 16:45 Freq: Status: Active Protocol: Document 07/18/22 12:55 SAK (Rec: 07/18/22 13:46 SAK [id number]) Current Condition History of Current Condition Onset Date 2-3 yrs ago Current Complaints mid back pain History of Current Condition gradual onset of pain mid back . No treatment for it; no exercises, no heat or ice. Takes Ibuprofen and Acetaminophen. Sleeps on side or back. Has just resumed doing exercises for shoulder and low back. Sits and lays down a lot. CAn't walk more than a few blocks due to hip and spinal pain. States middle glut doesn't fire, PT some helpful but didn't resolve issue, but pain is mostly throughout spine. Prior Treatments and Tests prior PT for RC, hip, gluts x-rays show excess kyphosis, and lots of arthritis per patient report, in Dr. Flanagan's office. Treatment Goals Patient/Caregiver Goals IMprove her posture, strength, and activity tolerance PT-OP-C Subjective Start: 07/15/22 16:45 Freq: Status: Active Protocol: Document 10/29/22 14:28 NBM (Rec: 10/29/22 17:09 NBM [id number]) OP-PT Subjective Patient Comments Patient Comments Pt wants to work on balance and review newer HEP exercises . PT-OP-D Balance Start: 07/15/22 16:45 Freq: Status: Active Protocol: Document 07/16/22 15:28 SAK (Rec: 07/17/22 10:40 SAK [id number]) OP-PT Balance Assessment Sitting Balance Static Sitting Balance Ability Good Dynamic Sitting Balance Ability Good Standing Balance Static Standing Balance Ability Fair Dynamic Standing Balance Ability Poor Standing Balance Comments encouraged patient to use cane or trekking poles due to her expressed fear of falling, difficulty with balance Garza Fall Scale Copyright Permission PT-OP-G Mobility & Gait Start: 07/15/22 16:45 Freq: Status: Active Protocol: Document 07/16/22 15:28 [facility] (Rec: 07/17/22 10:40 [facility] [id number]) OP Mobility Evaluation Bed Mobility Supine to and from Sit instrsucted in log roll for spinal protection, practice x 3 with improving performance with repeititoin OP Gait Assessment Gait Deviations General Gait Pattern Decreased Stride Length, Decreased Feet Clearance PT-OP-H Neuro Start: 07/15/22 16:45 Freq: Status: Active Protocol: Document 07/16/22 15:28 [facility] (Rec: 07/17/22 14:20 [facility] [id number]) Sensation Evaluation Gross Sensation Gross Sensation WNL PT-OP-J Posture/Palpation/Skin Start: 07/15/22 16:45 Freq: Status: Active Protocol: Document 07/16/22 15:28 [facility] (Rec: 07/17/22 14:20 [facility] [id number]) Posture Evaluation Position Standing Head/C-Spine Posture Forward Head T-Spine Posture Increased Kyphosis L-Spine Posture Increased Lordosis Shoulder Posture (L) Rounded,(R) Rounded Scapula Posture (L) Protracted,(R) Protracted Arm Posture (L) Internally Rotated,(R) Internally Rotated Palpation Assessment Location thoracolumbar paraspinals Palpation Location zachery Palpation Findings Soft Tissue Tightness, Tenderness PT-OP-K Range of Motion Start: 07/15/22 16:45 Freq: Status: Active Protocol: Document 07/16/22 15:28 [facility] (Rec: 07/17/22 14:20 [facility] [id number]) Lumbar Spine Range of Motion Lumbar Spine Active ROM Limitations Soft Tissue Tightness,Pain Comments moderately decreased all motions PT-OP-M Strength Start: 07/15/22 16:45 Freq: Status: Active Protocol: Document 07/16/22 15:28 [facility] (Rec: 07/17/22 14:20 [facility] [id number]) Trunk Strength Trunk Manual Muscle Testing Core Stabilization poor Comments Unable to do formal MMT due to pain Hip Strength Hip Manual Muscle Testing zachery Flexion (L2) 3+ Fair+ Extension (S1) 3+ Fair+ Abduction 3+ Fair+ Adduction 3+ Fair+ External Rotation 3+ Fair+ Internal Rotation 3+ Fair+ Comments limited by pain PT-OP-Q Treatments Start: 07/15/22 16:45 Freq: Status: Active Protocol: Document 10/29/22 14:28 NB (Rec: 10/29/22 15:22 NB [id number]) Therapeutic Exercises Supine Exercises single leg bridge Reps/Minutes 10x5 SH Comments cues for level pelvis setmental bridge Equipment Used w/ and w/o green ball Reps/Minutes 5 x 5 w/ ball squeeze Comments ecc glute control, PPT Prone Exercises cat.cow Reps/Minutes 5x Comments vc core w/ cow Thread the Needle Side bilateral Reps/Minutes x5 ea Comments cue for bending stance UE to reduce posterior capsule tightness Quadruped Prone Exercise Name Leg only today Side bilateral Reps/Minutes 5x Comments cues for level pelvis Sidelying Exercises Hip abduction Sidelying Exercise Name R more challenging Reps/Minutes 8x Comments only able to lift 2-3 inches open book Sidelying Exercise Name active first, then hold for stretch with deep breathing Reps/Minutes 5x Comments gentle, cue to tuck chin before resting head, stop for deep breath Neuro Re-Education Treatment Balance Activities tiltboard Details balance and wt shift Equipment tiltboard Reps/Duration 2 min Comments min UE support on parallel bars dynadisc Details no UE support Equipment small blue dynadisc, mesh chair Reps/Duration x5 ea Comments seated marching, sit to stand x10, LAQ good feedback response Sitting on disc and 2nd disc under feet: bal and head turns -low back pain today, use thinner disc under feet next session tandem walking Details and tandem stand Surface level, carpet Equipment // bars, gait belt Reps/Duration 4 x 10ft Comments R foot shorter step length than L SLS, tandem Reps/Duration 3x ea Comments cues with SLS to keep opp foot on ground a little PRN. PT-OP-R Modalities Start: 07/15/22 16:45 Freq: Status: Active Protocol: Document 09/26/22 12:59 [facility] (Rec: 09/26/22 13:46 [facility] [id number]) Hot Pack/Cold Pack Treatment Heat Location thoracolumbar spine Patient Position Hooklying Treatment Duration (minutes) 10 Patient Tolerance Good Comments during supine ex PT-OP-T Assessment and Plan Start: 07/15/22 16:45 Freq: Status: Active Protocol: Document 10/29/22 14:28 NB (Rec: 10/29/22 15:22 [facility] [id number]) Physical Therapy Assessment Goals activity tolerance Impairment Oswestry disability index score 44% Short Term Goal (STG) Decrease Oswestry score to no greater than 30% as measure of improved activity tolerance and function 08/21/22: good goal progress STG Duration goal met Design Tech Goal (LTG) Decrease Oswestry score to no greater than 20% as measur of improved activity tolerance and function in her day to day life. 10/23/28: LTG Duration 11/18/22 weakness Impairment trunk and core muscle weakness Impairment weakness throughout trunk musculature Short Term Goal (STG) patient to be instructed in HEP for purposes of trunk and core strengthening 08/15/22: ongoing STG Duration goal met Design Tech Goal (LTG) Patient will be independent and compliant with HEP and demonstrate improved muscle strength throughout trunk and core 10/23/22; good progress toward goals LTG Duration 11/18/22 Two Impairment pain thoracolumbar Impairment Pain as high as 6/10 limiting ability to stand, walk, and do usual activities Short Term Goal (STG) Decrease pain to no greater than 4/10 with all usual activities 08/15/22: good goal progress STG Duration goal met Assisted Goal (LTG) Decrease pain to no greater than 2/10 with patient able to resume more physical activities without difficulty 10/23/22:still pain across shoulder blades LTG Duration 11/18/22 1 Impairment postural dysfunction Impairment excess thoracic kyphosis and lumbar lordosis Short Term Goal (STG) Patient to receive postural education and therapeutic exercises for postural correction 08/21/22: good goal progress STG Duration goal met Design Tech Goal (LTG) Patient to demonstrate improved postural awareness statically and dynamically with functional movement and activities 08/21/22: goal progress 10/23/22: good goal progress with less cues required LTG Duration 11/18/22 Assessment Summary Assessment Pt continues to improve self- awareness of Upper trapezius overactivation with ex's and requires minimal cues throughout treatment session. She is challenged in quadruped with core engagement and requires cues for weightshifting over her UE's before performing cat/cow, thread the needle, and alternating LE reach. She also requires cues for excessive hip rotation and TrA activation w/ LE extension in quadruped. Pt improves tandem walking when cued for upright posture and distant focal point to avoid looking down at feet. She fatigues more easily today and requires occasional rest breaks. Physical Therapy Plan Frequency and Duration Frequency of Treatment 2x/Week Duration of treatment (weeks) 4 Plan of Care Start Date 10/17/22 Plan of Care End Date 11/18/22 Therapeutic Interventions Therapeutic Interventions Manual Therapy,Patient/ Caregiver Education,Self-Care/ Home Management,Soft Tissue Mobilization,Therapeutic Activities,Therapeutic Exercises Modalities Electric Stimulation,Hot Packs ,Traction- Mechanical, Ultrasound Next Visit Focus/Plan Next Note Type Treatment Note Next Visit Plan Emphasis on balance, progression of core and hip strengthening, postural awareness
--- NOTE | 2022-11-05 12:01 | PT.OTN ---
Current Diagnoses Spinal stenosis, cervical region (11/05/22) Low back pain, unspecified (11/05/22) Pain in thoracic spine (11/05/22) Abnormal posture (11/05/22) Weakness (11/05/22) Physical Therapy Treatment Note PT-OP-A Visit Information Start: 07/15/22 16:45 Freq: Status: Active Protocol: Document 11/05/22 09:48 SAK (Rec: 11/05/22 10:28 SAK [id number]) Out-Patient Physical Therapy Visit Information Visit Information Visit Type Treatment Note Visit Start Time 09:45 Visit Stop Time 10:30 Total Visit Minutes 60 Visit Number 20 Evaluation Information Evaluation Date 07/16/22 Precautions Precautions PMH: neck pain, left RC repair s/p fall, back pain, hip pain , balance dysfunction PT-OP-B Current Condition Start: 07/15/22 16:45 Freq: Status: Active Protocol: Document 07/18/22 12:55 SAK (Rec: 07/18/22 13:46 SAK [id number]) Current Condition History of Current Condition Onset Date 2-3 yrs ago Current Complaints mid back pain History of Current Condition gradual onset of pain mid back . No treatment for it; no exercises, no heat or ice. Takes Ibuprofen and Acetaminophen. Sleeps on side or back. Has just resumed doing exercises for shoulder and low back. Sits and lays down a lot. CAn't walk more than a few blocks due to hip and spinal pain. States middle glut doesn't fire, PT some helpful but didn't resolve issue, but pain is mostly throughout spine. Prior Treatments and Tests prior PT for RC, hip, gluts x-rays show excess kyphosis, and lots of arthritis per patient report, in Dr. Flanagan's office. Treatment Goals Patient/Caregiver Goals IMprove her posture, strength, and activity tolerance PT-OP-C Subjective Start: 07/15/22 16:45 Freq: Status: Active Protocol: Document 11/05/22 09:48 SAK (Rec: 11/05/22 10:28 SAK [id number]) OP-PT Subjective Patient Comments Patient Comments Hasn't done balance exercises recently; I tend to run out of time. PT-OP-D Balance Start: 07/15/22 16:45 Freq: Status: Active Protocol: Document 07/16/22 15:28 SAK (Rec: 07/17/22 10:40 [facility] [id number]) OP-PT Balance Assessment Sitting Balance Static Sitting Balance Ability Good Dynamic Sitting Balance Ability Good Standing Balance Static Standing Balance Ability Fair Dynamic Standing Balance Ability Poor Standing Balance Comments encouraged patient to use cane or trekking poles due to her expressed fear of falling, difficulty with balance Garza Fall Scale Copyright Permission PT-OP-G Mobility & Gait Start: 07/15/22 16:45 Freq: Status: Active Protocol: Document 07/16/22 15:28 [facility] (Rec: 07/17/22 10:40 [facility] [id number]) OP Mobility Evaluation Bed Mobility Supine to and from Sit instrsucted in log roll for spinal protection, practice x 3 with improving performance with repeititoin OP Gait Assessment Gait Deviations General Gait Pattern Decreased Stride Length, Decreased Feet Clearance PT-OP-H Neuro Start: 07/15/22 16:45 Freq: Status: Active Protocol: Document 07/16/22 15:28 [facility] (Rec: 07/17/22 14:20 [facility] [id number]) Sensation Evaluation Gross Sensation Gross Sensation WNL PT-OP-J Posture/Palpation/Skin Start: 07/15/22 16:45 Freq: Status: Active Protocol: Document 07/16/22 15:28 [facility] (Rec: 07/17/22 14:20 [facility] [id number]) Posture Evaluation Position Standing Head/C-Spine Posture Forward Head T-Spine Posture Increased Kyphosis L-Spine Posture Increased Lordosis Shoulder Posture (L) Rounded,(R) Rounded Scapula Posture (L) Protracted,(R) Protracted Arm Posture (L) Internally Rotated,(R) Internally Rotated Palpation Assessment Location thoracolumbar paraspinals Palpation Location zachery Palpation Findings Soft Tissue Tightness, Tenderness PT-OP-K Range of Motion Start: 07/15/22 16:45 Freq: Status: Active Protocol: Document 07/16/22 15:28 [facility] (Rec: 07/17/22 14:20 [facility] [id number]) Lumbar Spine Range of Motion Lumbar Spine Active ROM Limitations Soft Tissue Tightness,Pain Comments moderately decreased all motions PT-OP-M Strength Start: 07/15/22 16:45 Freq: Status: Active Protocol: Document 07/16/22 15:28 [facility] (Rec: 07/17/22 14:20 [facility] [id number]) Trunk Strength Trunk Manual Muscle Testing Core Stabilization poor Comments Unable to do formal MMT due to pain Hip Strength Hip Manual Muscle Testing zachery Flexion (L2) 3+ Fair+ Extension (S1) 3+ Fair+ Abduction 3+ Fair+ Adduction 3+ Fair+ External Rotation 3+ Fair+ Internal Rotation 3+ Fair+ Comments limited by pain PT-OP-Q Treatments Start: 07/15/22 16:45 Freq: Status: Active Protocol: Document 11/05/22 09:48 [facility] (Rec: 11/05/22 10:28 [facility] [id number]) Gym Equipment Shuttle Balance red chains Details WBOS, EO, bal and wt shift f/b , side Therapeutic Exercises Supine Exercises pec stretch Reps/Minutes 2x30 Comments no pillows, cues for deep breathing Prone Exercises cat.cow Reps/Minutes 5x Comments vc core w/ cow Thread the Needle Side bilateral Reps/Minutes x5 ea Comments cue for bending stance UE to reduce posterior capsule tightness Quadruped Prone Exercise Name Leg only today Side bilateral Reps/Minutes 5x Comments cues for level pelvis Sidelying Exercises Hip abduction Sidelying Exercise Name R more challenging Reps/Minutes 10x Comments only able to lift 2-3 inches Sitting Exercises HS stretch Reps/Minutes 2x30 PT-OP-R Modalities Start: 07/15/22 16:45 Freq: Status: Active Protocol: Document 09/26/22 12:59 [facility] (Rec: 09/26/22 13:46 [facility] [id number]) Hot Pack/Cold Pack Treatment Heat Location thoracolumbar spine Patient Position Hooklying Treatment Duration (minutes) 10 Patient Tolerance Good Comments during supine ex PT-OP-T Assessment and Plan Start: 07/15/22 16:45 Freq: Status: Active Protocol: Document 11/05/22 09:48 [facility] (Rec: 11/05/22 10:28 [facility] [id number]) Physical Therapy Assessment Goals activity tolerance Impairment Oswestry disability index score 44% Short Term Goal (STG) Decrease Oswestry score to no greater than 30% as measure of improved activity tolerance and function 08/21/22: good goal progress 11/05/22: goal met STG Duration goal met Harnessmaker Apprentice Goal (LTG) Decrease Oswestry score to no greater than 20% as measur of improved activity tolerance and function in her day to day life. 11/05/22: good goal progress, dec to 25% LTG Duration 11/18/22 weakness Impairment trunk and core muscle weakness Impairment weakness throughout trunk musculature Short Term Goal (STG) patient to be instructed in HEP for purposes of trunk and core strengthening 08/15/22: ongoing STG Duration goal met; ongoing progression Group Home Goal (LTG) Patient will be independent and compliant with HEP and demonstrate improved muscle strength throughout trunk and core 10/23/22; good progress toward goals 11/05/22: patient compliant with HEP, continues to require cues for improved technique and safety. LTG Duration 11/18/22 Two Impairment pain thoracolumbar Impairment Pain as high as 6/10 limiting ability to stand, walk, and do usual activities Short Term Goal (STG) Decrease pain to no greater than 4/10 with all usual activities 08/15/22: good goal progress STG Duration goal met Group Home Goal (LTG) Decrease pain to no greater than 2/10 with patient able to resume more physical activities without difficulty 10/23/22:still pain across shoulder blades at 4/10 11/05/22: pain generally 3-4/10 LTG Duration 11/18/22 1 Impairment postural dysfunction Impairment excess thoracic kyphosis and lumbar lordosis Short Term Goal (STG) Patient to receive postural education and therapeutic exercises for postural correction 08/21/22: good goal progress STG Duration goal met; continued progression Group Home Goal (LTG) Patient to demonstrate improved postural awareness statically and dynamically with functional movement and activities 08/21/22: goal progress 10/23/22: good goal progress with less cues required 11/05/22: min cues in sitting, more frequent in standing due to posterior positioning of thorax tendency LTG Duration 11/18/22 Assessment Summary Assessment Patient improving with thoracic mobility and postural awareness, asking appropriate questions, receptive to cues for improved exercise performance and body mechanics . Progressed to shuttle balance machine today on red chains with pt requiring min to mod assistance for balance. Recommend 1x/wk x 4 weeks to help patient fully achieve her PT goals and transition to independent HEP/community exercise program. Physical Therapy Plan Frequency and Duration Frequency of Treatment 2x/Week Duration of treatment (weeks) 4 Plan of Care Start Date 10/17/22 Plan of Care End Date 11/18/22 Therapeutic Interventions Therapeutic Interventions Manual Therapy,Patient/ Caregiver Education,Self-Care/ Home Management,Soft Tissue Mobilization,Therapeutic Activities,Therapeutic Exercises Modalities Electric Stimulation,Hot Packs ,Traction- Mechanical, Ultrasound Next Visit Focus/Plan Next Note Type Treatment Note Next Visit Plan Continue PT with decreased frequency of 1x/wk x 4 weeks then anticipate discharge from PT.
--- NOTE | 2022-11-12 08:15 | PT.OTN ---
Current Diagnoses Spinal stenosis, cervical region (11/12/22) Low back pain, unspecified (11/12/22) Pain in thoracic spine (11/12/22) Abnormal posture (11/12/22) Weakness (11/12/22) Physical Therapy Treatment Note PT-OP-A Visit Information Start: 07/15/22 16:45 Freq: Status: Active Protocol: Document 11/12/22 07:33 SP (Rec: 11/12/22 08:19 SP [id number]) Out-Patient Physical Therapy Visit Information Visit Information Visit Type Treatment Note Visit Start Time 07:33 Visit Stop Time 08:15 Total Visit Minutes 42 Visit Number 21 Number of SOFTWARE VALIDATION ENGINEER Visits 1 Evaluation Information Evaluation Date 07/16/22 Precautions Precautions PMH: neck pain, left RC repair s/p fall, back pain, hip pain , balance dysfunction PT-OP-B Current Condition Start: 07/15/22 16:45 Freq: Status: Active Protocol: Document 07/18/22 12:55 SAK (Rec: 07/18/22 13:46 SAK [id number]) Current Condition History of Current Condition Onset Date 2-3 yrs ago Current Complaints mid back pain History of Current Condition gradual onset of pain mid back . No treatment for it; no exercises, no heat or ice. Takes Ibuprofen and Acetaminophen. Sleeps on side or back. Has just resumed doing exercises for shoulder and low back. Sits and lays down a lot. CAn't walk more than a few blocks due to hip and spinal pain. States middle glut doesn't fire, PT some helpful but didn't resolve issue, but pain is mostly throughout spine. Prior Treatments and Tests prior PT for RC, hip, gluts x-rays show excess kyphosis, and lots of arthritis per patient report, in Dr. Flanagan's office. Treatment Goals Patient/Caregiver Goals IMprove her posture, strength, and activity tolerance PT-OP-C Subjective Start: 07/15/22 16:45 Freq: Status: Active Protocol: Document 11/12/22 07:33 SP (Rec: 11/12/22 08:19 SP [id number]) OP-PT Subjective Patient Comments Patient Comments Pt reported balance board was challenging last tx. PT-OP-D Balance Start: 07/15/22 16:45 Freq: Status: Active Protocol: Document 07/16/22 15:28 SAK (Rec: 07/17/22 10:40 [facility] [id number]) OP-PT Balance Assessment Sitting Balance Static Sitting Balance Ability Good Dynamic Sitting Balance Ability Good Standing Balance Static Standing Balance Ability Fair Dynamic Standing Balance Ability Poor Standing Balance Comments encouraged patient to use cane or trekking poles due to her expressed fear of falling, difficulty with balance Garza Fall Scale Copyright Permission PT-OP-G Mobility & Gait Start: 07/15/22 16:45 Freq: Status: Active Protocol: Document 07/16/22 15:28 [facility] (Rec: 07/17/22 10:40 [facility] [id number]) OP Mobility Evaluation Bed Mobility Supine to and from Sit instrsucted in log roll for spinal protection, practice x 3 with improving performance with repeititoin OP Gait Assessment Gait Deviations General Gait Pattern Decreased Stride Length, Decreased Feet Clearance PT-OP-H Neuro Start: 07/15/22 16:45 Freq: Status: Active Protocol: Document 07/16/22 15:28 [facility] (Rec: 07/17/22 14:20 [facility] [id number]) Sensation Evaluation Gross Sensation Gross Sensation WNL PT-OP-J Posture/Palpation/Skin Start: 07/15/22 16:45 Freq: Status: Active Protocol: Document 07/16/22 15:28 [facility] (Rec: 07/17/22 14:20 [facility] [id number]) Posture Evaluation Position Standing Head/C-Spine Posture Forward Head T-Spine Posture Increased Kyphosis L-Spine Posture Increased Lordosis Shoulder Posture (L) Rounded,(R) Rounded Scapula Posture (L) Protracted,(R) Protracted Arm Posture (L) Internally Rotated,(R) Internally Rotated Palpation Assessment Location thoracolumbar paraspinals Palpation Location zachery Palpation Findings Soft Tissue Tightness, Tenderness PT-OP-K Range of Motion Start: 07/15/22 16:45 Freq: Status: Active Protocol: Document 07/16/22 15:28 [facility] (Rec: 07/17/22 14:20 [facility] [id number]) Lumbar Spine Range of Motion Lumbar Spine Active ROM Limitations Soft Tissue Tightness,Pain Comments moderately decreased all motions PT-OP-M Strength Start: 07/15/22 16:45 Freq: Status: Active Protocol: Document 07/16/22 15:28 [facility] (Rec: 07/17/22 14:20 [facility] [id number]) Trunk Strength Trunk Manual Muscle Testing Core Stabilization poor Comments Unable to do formal MMT due to pain Hip Strength Hip Manual Muscle Testing zachery Flexion (L2) 3+ Fair+ Extension (S1) 3+ Fair+ Abduction 3+ Fair+ Adduction 3+ Fair+ External Rotation 3+ Fair+ Internal Rotation 3+ Fair+ Comments limited by pain PT-OP-Q Treatments Start: 07/15/22 16:45 Freq: Status: Active Protocol: Document 11/12/22 07:33 SP (Rec: 11/12/22 08:19 SP [id number]) Gym Equipment Shuttle Balance red chains Details WBOS, EO, bal and wt shift f/b , HTs Reps/Duration 8 min total Comments cued chest lift posturing, scap complex/ core engagement then wt shift instructed. CG- 10% A Therapeutic Exercises Supine Exercises setmental bridge Resistance cued keep knees apart- good form corrections Equipment Used w/ and w/o green ball Reps/Minutes 5 x 5 w/ ball squeeze Comments cued neutral DNF relax jaw, not to velvet lift,c ecc glute control, PPT pec stretch Reps/Minutes 2x30 Comments no pillows, cues for deep breathing overhead stretch Supine Exercise Name FF OH Reps/Minutes x5 reps Comments 1 pillow under head support neutral c spine, TA throughout range Prone Exercises cat.cow Reps/Minutes 5x Comments vc pelvic A/P tilt full range can Thread the Needle Side bilateral Reps/Minutes x5 ea Comments cued TS rotation painfree tolerant range Quadruped Prone Exercise Name Leg only today Side bilateral Reps/Minutes 5x Comments good level pelvis Sidelying Exercises Hip abduction Sidelying Exercise Name R more challenging but improved knees slight bent Reps/Minutes 10x Comments cued core glut fac, R able to lift 5 inches PT-OP-R Modalities Start: 07/15/22 16:45 Freq: Status: Active Protocol: Document 09/26/22 12:59 SAK (Rec: 09/26/22 13:46 SAK [id number]) Hot Pack/Cold Pack Treatment Heat Location thoracolumbar spine Patient Position Hooklying Treatment Duration (minutes) 10 Patient Tolerance Good Comments during supine ex PT-OP-T Assessment and Plan Start: 07/15/22 16:45 Freq: Status: Active Protocol: Document 11/12/22 07:33 SP (Rec: 11/12/22 08:19 SP [id number]) Physical Therapy Assessment Goals activity tolerance Impairment Oswestry disability index score 44% Short Term Goal (STG) Decrease Oswestry score to no greater than 30% as measure of improved activity tolerance and function 08/21/22: good goal progress 11/05/22: goal met STG Duration goal met Nursing Home Goal (LTG) Decrease Oswestry score to no greater than 20% as measur of improved activity tolerance and function in her day to day life. 11/05/22: good goal progress, dec to 25% LTG Duration 11/18/22 weakness Impairment trunk and core muscle weakness Impairment weakness throughout trunk musculature Short Term Goal (STG) patient to be instructed in HEP for purposes of trunk and core strengthening 08/15/22: ongoing STG Duration goal met; ongoing progression Reinforcing Rod Layer Goal (LTG) Patient will be independent and compliant with HEP and demonstrate improved muscle strength throughout trunk and core 10/23/22; good progress toward goals 11/05/22: patient compliant with HEP, continues to require cues for improved technique and safety. LTG Duration 11/18/22 Two Impairment pain thoracolumbar Impairment Pain as high as 6/10 limiting ability to stand, walk, and do usual activities Short Term Goal (STG) Decrease pain to no greater than 4/10 with all usual activities 08/15/22: good goal progress STG Duration goal met Nursing Home Goal (LTG) Decrease pain to no greater than 2/10 with patient able to resume more physical activities without difficulty 10/23/22:still pain across shoulder blades at 4/10 11/05/22: pain generally 3-4/10 LTG Duration 11/18/22 1 Impairment postural dysfunction Impairment excess thoracic kyphosis and lumbar lordosis Short Term Goal (STG) Patient to receive postural education and therapeutic exercises for postural correction 08/21/22: good goal progress STG Duration goal met; continued progression Nursing Home Goal (LTG) Patient to demonstrate improved postural awareness statically and dynamically with functional movement and activities 08/21/22: goal progress 10/23/22: good goal progress with less cues required 11/05/22: min cues in sitting, more frequent in standing due to posterior positioning of thorax tendency LTG Duration 11/18/22 Assessment Summary Assessment Pt improved segmental bridge without ball stability between BLEs, able with cues for slow eccentric controlleded movement. Responded well to modified side hip abd with glut med facilitation on RLE this tx. Pt ableto complete HTs with less support this tx on SHuttle recovery. Physical Therapy Plan Frequency and Duration Frequency of Treatment 2x/Week Duration of treatment (weeks) 4 Plan of Care Start Date 10/17/22 Plan of Care End Date 11/18/22 Therapeutic Interventions Therapeutic Interventions Manual Therapy,Patient/ Caregiver Education,Self-Care/ Home Management,Soft Tissue Mobilization,Therapeutic Activities,Therapeutic Exercises Modalities Electric Stimulation,Hot Packs ,Traction- Mechanical, Ultrasound Next Visit Focus/Plan Next Note Type Treatment Note Next Visit Plan Recheck HEP, progress standing core functional strengthening and review stretching. POC: Continue PT with decreased frequency of 1x/wk x 4 weeks then anticipate discharge from PT.
--- NOTE | 2022-11-19 16:58 | PT.OPPOC ---
Physical, Occupational & Speech Therapy At Current Diagnoses Spinal stenosis, cervical region (11/12/22) Low back pain, unspecified (11/12/22) Pain in thoracic spine (11/12/22) Abnormal posture (11/12/22) Weakness (11/12/22) Visit Care Team Role Provider Type Joshua Chin MD Family Provider Physician Primary Care Provider Specialty: Internal Medicine Address: [address] [place] [address], [facility] [address], [place], [address] Email: [email or web address] Mitchell MD Attending Provider Physician Referring Provider Specialty: Orthopedics Orthopedic Surgery Address: [address] [place] [address], [address] Email: [email or web address] ([email or web address]) Plan Of Care PT-OP-T Assessment and Plan Start: 07/15/22 16:45 Freq: Status: Active Protocol: Document 11/19/22 09:48 SAK (Rec: 11/05/22 10:28 [facility] [id number]) Physical Therapy Assessment Goals activity tolerance Impairment Oswestry disability index score 44% Short Term Goal (STG) Decrease Oswestry score to no greater than 30% as measure of improved activity tolerance and function 08/21/22: good goal progress 11/05/22: goal met STG Duration goal met Integrated Circuit Fabricator Goal (LTG) Decrease Oswestry score to no greater than 20% as measur of improved activity tolerance and function in her day to day life. 11/05/22: good goal progress, dec to 25% LTG Duration 11/18/22 weakness Impairment trunk and core muscle weakness Impairment weakness throughout trunk musculature Short Term Goal (STG) patient to be instructed in HEP for purposes of trunk and core strengthening 08/15/22: ongoing STG Duration goal met; ongoing progression Intermediate Goal (LTG) Patient will be independent and compliant with HEP and demonstrate improved muscle strength throughout trunk and core 10/23/22; good progress toward goals 11/05/22: patient compliant with HEP, continues to require cues for improved technique and safety. LTG Duration 11/18/22 Two Impairment pain thoracolumbar Impairment Pain as high as 6/10 limiting ability to stand, walk, and do usual activities Short Term Goal (STG) Decrease pain to no greater than 4/10 with all usual activities 08/15/22: good goal progress STG Duration goal met Intermediate Goal (LTG) Decrease pain to no greater than 2/10 with patient able to resume more physical activities without difficulty 10/23/22:still pain across shoulder blades at 4/10 11/05/22: pain generally 3-4/10 LTG Duration 11/18/22 1 Impairment postural dysfunction Impairment excess thoracic kyphosis and lumbar lordosis Short Term Goal (STG) Patient to receive postural education and therapeutic exercises for postural correction 08/21/22: good goal progress STG Duration goal met; continued progression Integrated Circuit Fabricator Goal (LTG) Patient to demonstrate improved postural awareness statically and dynamically with functional movement and activities 08/21/22: goal progress 10/23/22: good goal progress with less cues required 11/05/22: min cues in sitting, more frequent in standing due to posterior positioning of thorax tendency LTG Duration 11/18/22 Assessment Summary Assessment Patient improving with thoracic mobility and postural awareness, asking appropriate questions, receptive to cues for improved exercise performance and body mechanics . Progressed to shuttle balance machine today on red chains with pt requiring min to mod assistance for balance. Recommend 1x/wk x 4 weeks to help patient fully achieve her PT goals and transition to independent HEP/community exercise program. Physical Therapy Plan Frequency and Duration Frequency of Treatment 2x/Week Duration of treatment (weeks) 4 Plan of Care Start Date 11/05/22 Plan of Care End Date 12/06/22 Therapeutic Interventions Therapeutic Interventions Manual Therapy,Patient/ Caregiver Education,Self-Care/ Home Management,Soft Tissue Mobilization,Therapeutic Activities,Therapeutic Exercises Modalities Electric Stimulation,Hot Packs ,Traction- Mechanical, Ultrasound Next Visit Focus/Plan Next Note Type Treatment Note Next Visit Plan Continue PT with decreased frequency of 1x/wk x 4 weeks then anticipate discharge from PT. Plan of Care Dates Plan of Care Start Date 11/05/22 Plan of Care End Date 12/06/22 Electronically Signed by: Opal Tineo, PT 11/19/22 3726 If you are in agreement with this Plan of Care, please return a signed and dated copy. I have reviewed this Plan of Care and certify that the skilled therapy services above are required to meet the patient?s needs. Physician Signature Date Printed Name and Credentials Clinical Instructor Signature Printed Name and Credentials
--- NOTE | 2022-11-20 15:20 | PT.OTN ---
Current Diagnoses Spinal stenosis, cervical region (11/20/22) Low back pain, unspecified (11/20/22) Pain in thoracic spine (11/20/22) Abnormal posture (11/20/22) Weakness (11/20/22) Physical Therapy Treatment Note PT-OP-A Visit Information Start: 07/15/22 16:45 Freq: Status: Active Protocol: Document 11/20/22 14:33 SP (Rec: 11/20/22 16:25 SP [id number]) Out-Patient Physical Therapy Visit Information Visit Information Visit Type Treatment Note Visit Start Time 14:33 Visit Stop Time 15:20 Total Visit Minutes 47 Visit Number 21 Number of RADIO REPAIR TEACHER Visits 1 Evaluation Information Evaluation Date 07/16/22 Precautions Precautions PMH: neck pain, left RC repair s/p fall, back pain, hip pain , balance dysfunction PT-OP-B Current Condition Start: 07/15/22 16:45 Freq: Status: Active Protocol: Document 07/18/22 12:55 SAK (Rec: 07/18/22 13:46 SAK [id number]) Current Condition History of Current Condition Onset Date 2-3 yrs ago Current Complaints mid back pain History of Current Condition gradual onset of pain mid back . No treatment for it; no exercises, no heat or ice. Takes Ibuprofen and Acetaminophen. Sleeps on side or back. Has just resumed doing exercises for shoulder and low back. Sits and lays down a lot. CAn't walk more than a few blocks due to hip and spinal pain. States middle glut doesn't fire, PT some helpful but didn't resolve issue, but pain is mostly throughout spine. Prior Treatments and Tests prior PT for RC, hip, gluts x-rays show excess kyphosis, and lots of arthritis per patient report, in Dr. Flanagan's office. Treatment Goals Patient/Caregiver Goals IMprove her posture, strength, and activity tolerance PT-OP-C Subjective Start: 07/15/22 16:45 Freq: Status: Active Protocol: Document 11/20/22 14:33 SP (Rec: 11/20/22 16:25 SP [id number]) OP-PT Subjective Patient Comments Patient Comments Pt reports has been doing STS' s with OH raise with hand wt and wants to look at her form. ALso wants to look at back. PT-OP-D Balance Start: 07/15/22 16:45 Freq: Status: Active Protocol: Document 07/16/22 15:28 [facility] (Rec: 07/17/22 10:40 [facility] [id number]) OP-PT Balance Assessment Sitting Balance Static Sitting Balance Ability Good Dynamic Sitting Balance Ability Good Standing Balance Static Standing Balance Ability Fair Dynamic Standing Balance Ability Poor Standing Balance Comments encouraged patient to use cane or trekking poles due to her expressed fear of falling, difficulty with balance Garza Fall Scale Copyright Permission PT-OP-G Mobility & Gait Start: 07/15/22 16:45 Freq: Status: Active Protocol: Document 07/16/22 15:28 [facility] (Rec: 07/17/22 10:40 [facility] [id number]) OP Mobility Evaluation Bed Mobility Supine to and from Sit instrsucted in log roll for spinal protection, practice x 3 with improving performance with repeititoin OP Gait Assessment Gait Deviations General Gait Pattern Decreased Stride Length, Decreased Feet Clearance PT-OP-H Neuro Start: 07/15/22 16:45 Freq: Status: Active Protocol: Document 07/16/22 15:28 [facility] (Rec: 07/17/22 14:20 [facility] [id number]) Sensation Evaluation Gross Sensation Gross Sensation WNL PT-OP-J Posture/Palpation/Skin Start: 07/15/22 16:45 Freq: Status: Active Protocol: Document 07/16/22 15:28 [facility] (Rec: 07/17/22 14:20 [facility] [id number]) Posture Evaluation Position Standing Head/C-Spine Posture Forward Head T-Spine Posture Increased Kyphosis L-Spine Posture Increased Lordosis Shoulder Posture (L) Rounded,(R) Rounded Scapula Posture (L) Protracted,(R) Protracted Arm Posture (L) Internally Rotated,(R) Internally Rotated Palpation Assessment Location thoracolumbar paraspinals Palpation Location zachery Palpation Findings Soft Tissue Tightness, Tenderness PT-OP-K Range of Motion Start: 07/15/22 16:45 Freq: Status: Active Protocol: Document 07/16/22 15:28 [facility] (Rec: 07/17/22 14:20 [facility] [id number]) Lumbar Spine Range of Motion Lumbar Spine Active ROM Limitations Soft Tissue Tightness,Pain Comments moderately decreased all motions PT-OP-M Strength Start: 07/15/22 16:45 Freq: Status: Active Protocol: Document 07/16/22 15:28 SAK (Rec: 07/17/22 14:20 [facility] [id number]) Trunk Strength Trunk Manual Muscle Testing Core Stabilization poor Comments Unable to do formal MMT due to pain Hip Strength Hip Manual Muscle Testing zachery Flexion (L2) 3+ Fair+ Extension (S1) 3+ Fair+ Abduction 3+ Fair+ Adduction 3+ Fair+ External Rotation 3+ Fair+ Internal Rotation 3+ Fair+ Comments limited by pain PT-OP-Q Treatments Start: 07/15/22 16:45 Freq: Status: Active Protocol: Document 11/20/22 14:33 SP (Rec: 11/20/22 16:25 SP [id number]) Therapeutic Exercises Supine Exercises SLR Supine Exercise Name TA (changed from standing hip extension) Side bilateral Equipment Used towel roll behind head Reps/Minutes 3 reps before tires Comments cued chin tuck, arms side ER, relaxed jaw, TA lift/lower, no LB- good form single leg bridge Supine Exercise Name DC to hard 11/20 setmental bridge Supine Exercise Name HEP reviewed- Good TA facilitation form Resistance good knees // Equipment Used cued slow pacing. Reps/Minutes 4x3 reps Comments chin tuck,relax jaw, arms side ER, segmental roll up/lower- good core fac Prone Exercises Quadruped Prone Exercise Name Leg then UEs today Side bilateral Reps/Minutes 5x Comments good level pelvis/scap and CS chin tuck- nice effort Sidelying Exercises Hip abduction Sidelying Exercise Name R knee slight bent, LLE straight Resistance modified clam full leg lift Equipment Used (her HEP image prefers modify longer clamshell image lift) Reps/Minutes 10x Comments cued stacked on side, TA lift hip abd/glut fac- good response Standing Exercises STS OH reach Standing Exercise Name reviewed self- arms across chest asc/desc then OH reach coming to standing Equipment Used low big chair Comments cued TA asc/desc PT-OP-R Modalities Start: 07/15/22 16:45 Freq: Status: Active Protocol: Document 09/26/22 12:59 SAK (Rec: 09/26/22 13:46 [facility] [id number]) Hot Pack/Cold Pack Treatment Heat Location thoracolumbar spine Patient Position Hooklying Treatment Duration (minutes) 10 Patient Tolerance Good Comments during supine ex PT-OP-T Assessment and Plan Start: 07/15/22 16:45 Freq: Status: Active Protocol: Document 11/20/22 14:33 SP (Rec: 11/20/22 16:25 SP [id number]) Physical Therapy Assessment Goals activity tolerance Impairment Oswestry disability index score 44% Short Term Goal (STG) Decrease Oswestry score to no greater than 30% as measure of improved activity tolerance and function 08/21/22: good goal progress 11/05/22: goal met STG Duration goal met Hide Handler Goal (LTG) Decrease Oswestry score to no greater than 20% as measur of improved activity tolerance and function in her day to day life. 11/05/22: good goal progress, dec to 25% LTG Duration 11/18/22 weakness Impairment trunk and core muscle weakness Impairment weakness throughout trunk musculature Short Term Goal (STG) patient to be instructed in HEP for purposes of trunk and core strengthening 08/15/22: ongoing STG Duration goal met; ongoing progression Hide Handler Goal (LTG) Patient will be independent and compliant with HEP and demonstrate improved muscle strength throughout trunk and core 10/23/22; good progress toward goals 11/05/22: patient compliant with HEP, continues to require cues for improved technique and safety. LTG Duration 11/18/22 Two Impairment pain thoracolumbar Impairment Pain as high as 6/10 limiting ability to stand, walk, and do usual activities Short Term Goal (STG) Decrease pain to no greater than 4/10 with all usual activities 08/15/22: good goal progress STG Duration goal met Assisted Goal (LTG) Decrease pain to no greater than 2/10 with patient able to resume more physical activities without difficulty 10/23/22:still pain across shoulder blades at 4/10 11/05/22: pain generally 3-4/10 LTG Duration 11/18/22 1 Impairment postural dysfunction Impairment excess thoracic kyphosis and lumbar lordosis Short Term Goal (STG) Patient to receive postural education and therapeutic exercises for postural correction 08/21/22: good goal progress STG Duration goal met; continued progression Hide Handler Goal (LTG) Patient to demonstrate improved postural awareness statically and dynamically with functional movement and activities 08/21/22: goal progress 10/23/22: good goal progress with less cues required 11/05/22: min cues in sitting, more frequent in standing due to posterior positioning of thorax tendency LTG Duration 11/18/22 Assessment Summary Assessment Pt good feedback response to cues for postural head/neck/ arm ER positioning and neutral lumbar spine/TA fac throughout HEP review today. Pt good response didn't have much neck tension when told to relax jaw suprised is that simple. Physical Therapy Plan Frequency and Duration Frequency of Treatment 2x/Week Duration of treatment (weeks) 4 Plan of Care Start Date 11/05/22 Plan of Care End Date 12/06/22 Therapeutic Interventions Therapeutic Interventions Manual Therapy,Patient/ Caregiver Education,Self-Care/ Home Management,Soft Tissue Mobilization,Therapeutic Activities,Therapeutic Exercises Modalities Electric Stimulation,Hot Packs ,Traction- Mechanical, Ultrasound Next Visit Focus/Plan Next Note Type Treatment Note Next Visit Plan Review uneven surface sitting with december,. Recheck HEP, progress standing core functional strengthening and review stretching. POC: Continue PT with decreased frequency of discuss potential anticipate discharge from PT.
--- NOTE | 2022-11-27 09:56 | PT.OTN ---
Current Diagnoses Spinal stenosis, cervical region (11/27/22) Low back pain, unspecified (11/27/22) Pain in thoracic spine (11/27/22) Abnormal posture (11/27/22) Weakness (11/27/22) Physical Therapy Treatment Note PT-OP-A Visit Information Start: 07/15/22 16:45 Freq: Status: Active Protocol: Document 11/27/22 09:06 SP (Rec: 11/27/22 09:50 SP [id number]) Out-Patient Physical Therapy Visit Information Visit Information Visit Type Treatment Note Visit Note 1 more scheduled appt, POC expires 12/06/22. 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 No treatment for it; no exercises, no heat or ice. Takes Ibuprofen and Acetaminophen. Sleeps on side or back. Has just resumed doing exercises for shoulder and low back. Sits and lays down a lot. CAn't walk more than a few blocks due to hip and spinal pain. States middle glut doesn't fire, PT some helpful but didn't resolve issue, but pain is mostly throughout spine. Prior Treatments and Tests prior PT for RC, hip, gluts x-rays show excess kyphosis, and lots of arthritis per patient report, in Dr. Flanagan's office. Treatment Goals Patient/Caregiver Goals IMprove her posture, strength, and activity tolerance PT-OP-C Subjective Start: 07/15/22 16:45 Freq: Status: Active Protocol: Document 11/27/22 09:06 SP (Rec: 11/27/22 09:50 SP [id number]) OP-PT Subjective Patient Comments Patient Comments Pt reports compliant with HEP, back soreness across LB and upper back upon arrival. Pt directs requests review of HEP this tx for confidence in HEP while using HOs. PT-OP-D Balance Start: 07/15/22 16:45 Freq: Status: Active Protocol: Document 07/16/22 15:28 [facility] (Rec: 07/17/22 10:40 [facility] [id number]) OP-PT Balance Assessment Sitting Balance Static Sitting Balance Ability Good Dynamic Sitting Balance Ability Good Standing Balance Static Standing Balance Ability Fair Dynamic Standing Balance Ability Poor Standing Balance Comments encouraged patient to use cane or trekking poles due to her expressed fear of falling, difficulty with balance Garza Fall Scale Copyright Permission PT-OP-G Mobility & Gait Start: 07/15/22 16:45 Freq: Status: Active Protocol: Document 07/16/22 15:28 [facility] (Rec: 07/17/22 10:40 [facility] [id number]) OP Mobility Evaluation Bed Mobility Supine to and from Sit instrsucted in log roll for spinal protection, practice x 3 with improving performance with repeititoin OP Gait Assessment Gait Deviations General Gait Pattern Decreased Stride Length, Decreased Feet Clearance PT-OP-H Neuro Start: 07/15/22 16:45 Freq: Status: Active Protocol: Document 07/16/22 15:28 [facility] (Rec: 07/17/22 14:20 [facility] [id number]) Sensation Evaluation Gross Sensation Gross Sensation WNL PT-OP-J Posture/Palpation/Skin Start: 07/15/22 16:45 Freq: Status: Active Protocol: Document 07/16/22 15:28 [facility] (Rec: 07/17/22 14:20 [facility] [id number]) Posture Evaluation Position Standing Head/C-Spine Posture Forward Head T-Spine Posture Increased Kyphosis L-Spine Posture Increased Lordosis Shoulder Posture (L) Rounded,(R) Rounded Scapula Posture (L) Protracted,(R) Protracted Arm Posture (L) Internally Rotated,(R) Internally Rotated Palpation Assessment Location thoracolumbar paraspinals Palpation Location zachery Palpation Findings Soft Tissue Tightness, Tenderness PT-OP-K Range of Motion Start: 07/15/22 16:45 Freq: Status: Active Protocol: Document 07/16/22 15:28 [facility] (Rec: 07/17/22 14:20 [facility] [id number]) Lumbar Spine Range of Motion Lumbar Spine Active ROM Limitations Soft Tissue Tightness,Pain Comments moderately decreased all motions PT-OP-M Strength Start: 07/15/22 16:45 Freq: Status: Active Protocol: Document 07/16/22 15:28 SAK (Rec: 07/17/22 14:20 SAK [id number]) Trunk Strength Trunk Manual Muscle Testing Core Stabilization poor Comments Unable to do formal MMT due to pain Hip Strength Hip Manual Muscle Testing zachery Flexion (L2) 3+ Fair+ Extension (S1) 3+ Fair+ Abduction 3+ Fair+ Adduction 3+ Fair+ External Rotation 3+ Fair+ Internal Rotation 3+ Fair+ Comments limited by pain PT-OP-Q Treatments Start: 07/15/22 16:45 Freq: Status: Active Protocol: Document 11/27/22 09:06 SP (Rec: 11/27/22 09:50 SP [id number]) Gym Equipment Shuttle Recovery B squat Resistance 62#> 50# (1 new band) Shuttle Recovery Platform Unstable Reps/Time x30 SL squat Details good effort, cued knee alignment glut/quad facilitation Resistance 37# (old band) Shuttle Recovery Platform Stable Reps/Time 2x20 B alternating Therapeutic Exercises Supine Exercises pec stretch Supine Exercise Name 45 deg, 80 deg abd Equipment Used towel roll under head only needed 2/1 Reps/Minutes 2x30 Comments good elke goal post Supine Exercise Name tactile cue to keep shoulders down elbows straight Equipment Used FF (//)> goal post(Ws) Reps/Minutes 10x each Comments emphasis on the external rot at L shld triangle stretch Supine Exercise Name triangle press Reps/Minutes 10x10 Comments pillows no longer needed under elbows Prone Exercises cat.cow Reps/Minutes 5x Comments vc pelvic A/P tilt full range can Thread the Needle Side bilateral Reps/Minutes x5 ea Comments cued TS rotation painfree tolerant range Sidelying Exercises Hip abduction Sidelying Exercise Name modified clam full leg lift Resistance R >L knee slight bent Equipment Used (her HEP image prefers modify longer clamshell image lift) Reps/Minutes 10x Comments cued stacked on side, TA lift hip abd/glut fac- good response Standing Exercises TA STS Standing Exercise Name added step up Standing Exercise Name initiated in PT post supine/ quadruped ther ex Equipment Used bottom step, light contact rail LUE with RLE, Mod BUE during LLE Reps/Minutes 2x5 reps Comments improved glut/ hip abd fac with cues for elevated posture STS OH reach Standing Exercise Name reviewed self- arms across chest asc/desc then OH reach coming to standing Equipment Used low black mat table Reps/Minutes x5 reps Comments cued TA asc/desc Gait Training Gait Activity TA, posturing, glut med Description added end tx for carryover core/posturing/hip abd fac. Device Used 0 Level of Assistance S Surface carpet Distance/Duration 20 ft x4 laps Treatment Focus elevated trunk, TA, level pelvis with space between BLEs Comments Pt improved taller posturing and less trunk SB and scissor stepping post ther ex. PT-OP-R Modalities Start: 07/15/22 16:45 Freq: Status: Active Protocol: Document 11/27/22 09:06 SP (Rec: 11/27/22 09:50 SP [id number]) Hot Pack/Cold Pack Treatment Heat Location thoracolumbar spine Patient Position Hooklying Treatment Duration (minutes) 10 Patient Tolerance Good Comments during supine ex PT-OP-T Assessment and Plan Start: 07/15/22 16:45 Freq: Status: Active Protocol: Document 11/27/22 09:06 SP (Rec: 11/27/22 09:50 SP [id number]) Physical Therapy Assessment Goals activity tolerance Impairment Oswestry disability index score 44% Short Term Goal (STG) Decrease Oswestry score to no greater than 30% as measure of improved activity tolerance and function 08/21/22: good goal progress 11/05/22: goal met STG Duration goal met Skilled Nursing Goal (LTG) Decrease Oswestry score to no greater than 20% as measur of improved activity tolerance and function in her day to day life. 11/05/22: good goal progress, dec to 25% LTG Duration 11/18/22 weakness Impairment trunk and core muscle weakness Impairment weakness throughout trunk musculature Short Term Goal (STG) patient to be instructed in HEP for purposes of trunk and core strengthening 08/15/22: ongoing 11/27/22: cues for assurance of set up and proper form for confidence in [place]. See HOs. STG Duration goal met; ongoing progression 11/27/22 Channeler Goal (LTG) Patient will be independent and compliant with HEP and demonstrate improved muscle strength throughout trunk and core 10/23/22; good progress toward goals 11/05/22: patient compliant with HEP, continues to require cues for improved technique and safety. LTG Duration 11/18/22 Two Impairment pain thoracolumbar Impairment Pain as high as 6/10 limiting ability to stand, walk, and do usual activities Short Term Goal (STG) Decrease pain to no greater than 4/10 with all usual activities 08/15/22: good goal progress STG Duration goal met Skilled Nursing Goal (LTG) Decrease pain to no greater than 2/10 with patient able to resume more physical activities without difficulty 10/23/22:still pain across shoulder blades at 4/10 11/05/22: pain generally 3-4/10 LTG Duration 11/18/22 1 Impairment postural dysfunction Impairment excess thoracic kyphosis and lumbar lordosis Short Term Goal (STG) Patient to receive postural education and therapeutic exercises for postural correction 08/21/22: good goal progress STG Duration goal met; continued progression Channeler Goal (LTG) Patient to demonstrate improved postural awareness statically and dynamically with functional movement and activities 08/21/22: goal progress 10/23/22: good goal progress with less cues required 11/05/22: min cues in sitting, more frequent in standing due to posterior positioning of thorax tendency LTG Duration 11/18/22 Assessment Summary Assessment Pt directed needs during tx to feel more confident in HEP with use of HOs, added written Min cues on HOs during tx. Pt improved CS ext w/ chin tuck only needed towel roll behind head supine and TS/ scapular ROM/ LT facilitation to allow taller posturing and less trunk SB and scissor stepping gait post ther ex end tx. Unable to progress uneven surface seated/standing suggested in plan this tx. Pt requested use of MHP end tx to allow decrease LB tension, good feedback response. Physical Therapy Plan Frequency and Duration Frequency of Treatment 2x/Week Duration of treatment (weeks) 4 Plan of Care Start Date 11/05/22 Plan of Care End Date 12/06/22 Therapeutic Interventions Therapeutic Interventions Manual Therapy,Patient/ Caregiver Education,Self-Care/ Home Management,Soft Tissue Mobilization,Therapeutic Activities,Therapeutic Exercises Modalities Electric Stimulation,Hot Packs ,Traction- Mechanical, Ultrasound Next Visit Focus/Plan Next Note Type Treatment Note Next Visit Plan Check need add more appts, POC expiring 12/06/22. Review uneven surface sitting with FLORENCIA alaniz. Recheck HEP, progress standing core functional strengthening and review stretching. POC: Continue PT with decreased frequency of discuss potential anticipate discharge from PT.
--- NOTE | 2022-12-04 13:27 | PT.OTN ---
Current Diagnoses Spinal stenosis, cervical region (12/04/22) Low back pain, unspecified (12/04/22) Pain in thoracic spine (12/04/22) Abnormal posture (12/04/22) Weakness (12/04/22) Physical Therapy Treatment Note PT-OP-A Visit Information Start: 07/15/22 16:45 Freq: Status: Active Protocol: Document 12/04/22 08:59 SAK (Rec: 12/04/22 09:51 [facility] [id number]) Out-Patient Physical Therapy Visit Information Visit Information Visit Type Treatment Note Visit Start Time 09:00 Visit Stop Time 09:45 Total Visit Minutes 45 Visit Number 23 Number of OBSERVATION ASSISTANT Visits 0 Precautions Precautions PMH: neck pain, left RC repair s/p fall, back pain, hip pain , balance dysfunction PT-OP-B Current Condition Start: 07/15/22 16:45 Freq: Status: Active Protocol: Document 07/18/22 12:55 SAK (Rec: 07/18/22 13:46 SAK [id number]) Current Condition History of Current Condition Onset Date 2-3 yrs ago Current Complaints mid back pain History of Current Condition gradual onset of pain mid back . No treatment for it; no exercises, no heat or ice. Takes Ibuprofen and Acetaminophen. Sleeps on side or back. Has just resumed doing exercises for shoulder and low back. Sits and lays down a lot. CAn't walk more than a few blocks due to hip and spinal pain. States middle glut doesn't fire, PT some helpful but didn't resolve issue, but pain is mostly throughout spine. Prior Treatments and Tests prior PT for RC, hip, gluts x-rays show excess kyphosis, and lots of arthritis per patient report, in Dr. Flanagan's office. Treatment Goals Patient/Caregiver Goals IMprove her posture, strength, and activity tolerance PT-OP-C Subjective Start: 07/15/22 16:45 Freq: Status: Active Protocol: Document 12/04/22 08:59 SAK (Rec: 12/04/22 09:51 SAK [id number]) OP-PT Subjective Patient Comments Patient Comments Compliant to HEP, feels balance improving some. Gluteal weakness big factor in gait stability. PT-OP-D Balance Start: 07/15/22 16:45 Freq: Status: Active Protocol: Document 07/16/22 15:28 SAK (Rec: 07/17/22 10:40 [facility] [id number]) OP-PT Balance Assessment Sitting Balance Static Sitting Balance Ability Good Dynamic Sitting Balance Ability Good Standing Balance Static Standing Balance Ability Fair Dynamic Standing Balance Ability Poor Standing Balance Comments encouraged patient to use cane or trekking poles due to her expressed fear of falling, difficulty with balance Garza Fall Scale Copyright Permission PT-OP-G Mobility & Gait Start: 07/15/22 16:45 Freq: Status: Active Protocol: Document 07/16/22 15:28 [facility] (Rec: 07/17/22 10:40 [facility] [id number]) OP Mobility Evaluation Bed Mobility Supine to and from Sit instrsucted in log roll for spinal protection, practice x 3 with improving performance with repeititoin OP Gait Assessment Gait Deviations General Gait Pattern Decreased Stride Length, Decreased Feet Clearance PT-OP-H Neuro Start: 07/15/22 16:45 Freq: Status: Active Protocol: Document 07/16/22 15:28 [facility] (Rec: 07/17/22 14:20 [facility] [id number]) Sensation Evaluation Gross Sensation Gross Sensation WNL PT-OP-J Posture/Palpation/Skin Start: 07/15/22 16:45 Freq: Status: Active Protocol: Document 07/16/22 15:28 [facility] (Rec: 07/17/22 14:20 [facility] [id number]) Posture Evaluation Position Standing Head/C-Spine Posture Forward Head T-Spine Posture Increased Kyphosis L-Spine Posture Increased Lordosis Shoulder Posture (L) Rounded,(R) Rounded Scapula Posture (L) Protracted,(R) Protracted Arm Posture (L) Internally Rotated,(R) Internally Rotated Palpation Assessment Location thoracolumbar paraspinals Palpation Location zachery Palpation Findings Soft Tissue Tightness, Tenderness PT-OP-K Range of Motion Start: 07/15/22 16:45 Freq: Status: Active Protocol: Document 07/16/22 15:28 [facility] (Rec: 07/17/22 14:20 [facility] [id number]) Lumbar Spine Range of Motion Lumbar Spine Active ROM Limitations Soft Tissue Tightness,Pain Comments moderately decreased all motions PT-OP-M Strength Start: 07/15/22 16:45 Freq: Status: Active Protocol: Document 07/16/22 15:28 [facility] (Rec: 07/17/22 14:20 [facility] [id number]) Trunk Strength Trunk Manual Muscle Testing Core Stabilization poor Comments Unable to do formal MMT due to pain Hip Strength Hip Manual Muscle Testing zachery Flexion (L2) 3+ Fair+ Extension (S1) 3+ Fair+ Abduction 3+ Fair+ Adduction 3+ Fair+ External Rotation 3+ Fair+ Internal Rotation 3+ Fair+ Comments limited by pain PT-OP-Q Treatments Start: 07/15/22 16:45 Freq: Status: Active Protocol: Document 12/04/22 08:59 SAK (Rec: 12/04/22 09:51 [facility] [id number]) Gym Equipment Shuttle Recovery B squat Resistance 62#> 50# (1 new band) Shuttle Recovery Platform Unstable Reps/Time x30 SL squat Details good effort, cued knee alignment glut/quad facilitation Resistance 37# (new band) Shuttle Recovery Platform Stable Reps/Time 2x18 B alternating Shuttle Balance red chains Details WBOS, EO, bal and wt shift f/b , HTs Reps/Duration 8 min total Comments cued chest lift posturing, scap complex/ core engagement then wt shift instructed. CG- 10% A Therapeutic Exercises Supine Exercises bridge Reps/Minutes 6x Comments cues for segmental movement single leg bridge Reps/Minutes 5x Comments cues for activating glutes, lift only if able without pelvis tipping pec stretch Supine Exercise Name 45 deg, 80 deg abd Equipment Used towel roll under head only needed 2/1 Reps/Minutes 2x30 Comments good elke goal post Supine Exercise Name tactile cue to keep shoulders down elbows straight Equipment Used FF (//)> goal post(Ws) Reps/Minutes 10x each Comments emphasis on the external rot at L shld Sidelying Exercises Hip abduction Sidelying Exercise Name modified clam full leg lift Resistance R >L knee slight bent Equipment Used (her HEP image prefers modify longer clamshell image lift) Reps/Minutes 10x2 Comments cued slower , hold 2-3 sec Standing Exercises march Reps/Minutes 5x Comments cues for glut activation, stability heel/toe raise Equipment Used bar Reps/Minutes 20x Comments cues for postural alignment, slow movement sidestepping Equipment Used bar Reps/Minutes 20 ft x w Comments cues for gluteal activation, posture step up Equipment Used bottom step, light contact rail LUE with RLE, Mod BUE during LLE Reps/Minutes 10x reps ea Comments improved glut/ hip abd fac with cues for elevated posture Gait Training Gait Activity weight acceptance Description wt shifts fwd/back Treatment Focus gluteal activation TA, posturing, glut med Description added end tx for carryover core/posturing/hip abd fac. Device Used 0 Level of Assistance S Surface carpet Distance/Duration 20 ft x4 laps Treatment Focus elevated trunk, TA, level pelvis with space between BLEs Comments Pt improved taller posturing and less trunk SB and scissor stepping post ther ex. PT-OP-R Modalities Start: 07/15/22 16:45 Freq: Status: Active Protocol: Document 12/04/22 08:59 [facility] (Rec: 12/04/22 09:51 [facility] [id number]) Hot Pack/Cold Pack Treatment Heat Comments declined, didn't feel need PT-OP-T Assessment and Plan Start: 07/15/22 16:45 Freq: Status: Active Protocol: Document 12/04/22 08:59 [facility] (Rec: 12/04/22 09:51 [facility] [id number]) Physical Therapy Assessment Impairments Impairments Activity Tolerance,Balance, Pain,Posture,Strength Goals activity tolerance Impairment Oswestry disability index score 44% Short Term Goal (STG) Decrease Oswestry score to no greater than 30% as measure of improved activity tolerance and function 08/21/22: good goal progress 11/05/22: goal met STG Duration goal met [employer] Goal (LTG) Decrease Oswestry score to no greater than 20% as measur of improved activity tolerance and function in her day to day life. 11/05/22: good goal progress, dec to 25% LTG Duration 11/18/22 weakness Impairment trunk and core muscle weakness Impairment weakness throughout trunk musculature Short Term Goal (STG) patient to be instructed in HEP for purposes of trunk and core strengthening 08/15/22: ongoing 11/27/22: cues for assurance of set up and proper form for confidence in [place]. See HOs. STG Duration goal met; ongoing progression 11/27/22 [employer] Goal (LTG) Patient will be independent and compliant with HEP and demonstrate improved muscle strength throughout trunk and core 10/23/22; good progress toward goals 11/05/22: patient compliant with HEP, continues to require cues for improved technique and safety. LTG Duration 11/18/22 Two Impairment pain thoracolumbar Impairment Pain as high as 6/10 limiting ability to stand, walk, and do usual activities Short Term Goal (STG) Decrease pain to no greater than 4/10 with all usual activities 08/15/22: good goal progress STG Duration goal met [employer] Goal (LTG) Decrease pain to no greater than 2/10 with patient able to resume more physical activities without difficulty 10/23/22:still pain across shoulder blades at 4/10 11/05/22: pain generally 3-4/10 LTG Duration 11/18/22 1 Impairment postural dysfunction Impairment excess thoracic kyphosis and lumbar lordosis Short Term Goal (STG) Patient to receive postural education and therapeutic exercises for postural correction 08/21/22: good goal progress STG Duration goal met; continued progression [employer] Goal (LTG) Patient to demonstrate improved postural awareness statically and dynamically with functional movement and activities 08/21/22: goal progress 10/23/22: good goal progress with less cues required 11/05/22: min cues in sitting, more frequent in standing due to posterior positioning of thorax tendency LTG Duration 11/18/22 Assessment Summary Assessment Agreed to dec PT to 1x wk. continues to progress with strengthening, postural awareness and correction ability. Emphasis on progression of mat exercises into function with emphasis on gluteal activation, stability , and functional safety and balance. Continues to benefit from PT and is highly compliant to HEP. Physical Therapy Plan Frequency and Duration Frequency of Treatment 1x/Week Duration of treatment (weeks) 6 Plan of Care Start Date 12/04/22 Plan of Care End Date 01/08/23 Therapeutic Interventions Therapeutic Interventions Manual Therapy,Patient/ Caregiver Education,Self-Care/ Home Management,Soft Tissue Mobilization,Therapeutic Activities,Therapeutic Exercises Modalities Electric Stimulation,Hot Packs ,Traction- Mechanical, Ultrasound Next Visit Focus/Plan Next Note Type Treatment Note Next Visit Plan Continue therapeutic exercise progression with emphasis on closed chain functional activites
--- NOTE | 2022-12-09 09:47 | PT.OTN ---
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 No treatment for it; no exercises, no heat or ice. Takes Ibuprofen and Acetaminophen. Sleeps on side or back. Has just resumed doing exercises for shoulder and low back. Sits and lays down a lot. CAn't walk more than a few blocks due to hip and spinal pain. States middle glut doesn't fire, PT some helpful but didn't resolve issue, but pain is mostly throughout spine. Prior Treatments and Tests prior PT for RC, hip, gluts x-rays show excess kyphosis, and lots of arthritis per patient report, in Dr. Flanagan's office. Treatment Goals Patient/Caregiver Goals IMprove her posture, strength, and activity tolerance PT-OP-C Subjective Start: 07/15/22 16:45 Freq: Status: Active Protocol: Document 12/09/22 08:58 SAK (Rec: 12/09/22 09:47 [facility] [id number]) OP-PT Subjective Patient Comments Patient Comments No new c/o, pain overall better but variable sometimes with no know reason. PT-OP-D Balance Start: 07/15/22 16:45 Freq: Status: Active Protocol: Document 07/16/22 15:28 SAK (Rec: 07/17/22 10:40 [facility] [id number]) OP-PT Balance Assessment Sitting Balance Static Sitting Balance Ability Good Dynamic Sitting Balance Ability Good Standing Balance Static Standing Balance Ability Fair Dynamic Standing Balance Ability Poor Standing Balance Comments encouraged patient to use cane or trekking poles due to her expressed fear of falling, difficulty with balance Garza Fall Scale Copyright Permission PT-OP-G Mobility & Gait Start: 07/15/22 16:45 Freq: Status: Active Protocol: Document 07/16/22 15:28 [facility] (Rec: 07/17/22 10:40 [facility] [id number]) OP Mobility Evaluation Bed Mobility Supine to and from Sit instrsucted in log roll for spinal protection, practice x 3 with improving performance with repeititoin OP Gait Assessment Gait Deviations General Gait Pattern Decreased Stride Length, Decreased Feet Clearance PT-OP-H Neuro Start: 07/15/22 16:45 Freq: Status: Active Protocol: Document 07/16/22 15:28 [facility] (Rec: 07/17/22 14:20 [facility] [id number]) Sensation Evaluation Gross Sensation Gross Sensation WNL PT-OP-J Posture/Palpation/Skin Start: 07/15/22 16:45 Freq: Status: Active Protocol: Document 07/16/22 15:28 [facility] (Rec: 07/17/22 14:20 [facility] [id number]) Posture Evaluation Position Standing Head/C-Spine Posture Forward Head T-Spine Posture Increased Kyphosis L-Spine Posture Increased Lordosis Shoulder Posture (L) Rounded,(R) Rounded Scapula Posture (L) Protracted,(R) Protracted Arm Posture (L) Internally Rotated,(R) Internally Rotated Palpation Assessment Location thoracolumbar paraspinals Palpation Location zachery Palpation Findings Soft Tissue Tightness, Tenderness PT-OP-K Range of Motion Start: 07/15/22 16:45 Freq: Status: Active Protocol: Document 07/16/22 15:28 [facility] (Rec: 07/17/22 14:20 [facility] [id number]) Lumbar Spine Range of Motion Lumbar Spine Active ROM Limitations Soft Tissue Tightness,Pain Comments moderately decreased all motions PT-OP-M Strength Start: 07/15/22 16:45 Freq: Status: Active Protocol: Document 07/16/22 15:28 [facility] (Rec: 07/17/22 14:20 [facility] [id number]) Trunk Strength Trunk Manual Muscle Testing Core Stabilization poor Comments Unable to do formal MMT due to pain Hip Strength Hip Manual Muscle Testing zachery Flexion (L2) 3+ Fair+ Extension (S1) 3+ Fair+ Abduction 3+ Fair+ Adduction 3+ Fair+ External Rotation 3+ Fair+ Internal Rotation 3+ Fair+ Comments limited by pain PT-OP-Q Treatments Start: 07/15/22 16:45 Freq: Status: Active Protocol: Document 12/09/22 08:58 [facility] (Rec: 12/09/22 09:47 [facility] [id number]) Gym Equipment Shuttle Recovery B squat Resistance 50 Shuttle Recovery Platform Unstable Reps/Time x30 SL squat Details good effort, cued knee alignment glut/quad facilitation Resistance 37# (new band) Shuttle Recovery Platform Stable Reps/Time 2x15 B alternating Shuttle Balance red chains Details WBOS, EO, bal and wt shift f/b , HTs Reps/Duration 10 min total Comments cued chest lift posturing, scap complex/ core engagement then wt shift instructed. CG- 10% A Therapeutic Exercises Sidelying Exercises clamshell Reps/Minutes 10x Hip abduction Sidelying Exercise Name modified clam full leg lift Resistance R >L knee slight bent Equipment Used (her HEP image prefers modify longer clamshell image lift) Reps/Minutes 10x2 Comments cued slower , hold 2-3 sec Sitting Exercises sit to stand Equipment Used blue foam under feet Reps/Minutes 10x figure 4 Reps/Minutes 2x30 HS stretch Reps/Minutes 2x30 Standing Exercises march Reps/Minutes 5x Comments cues for glut activation, stability Gait Training Gait Activity TA, posturing, glut med Device Used 0 Level of Assistance S Surface carpet Distance/Duration 20 ft x4 laps Treatment Focus elevated trunk, TA, level pelvis with space between BLEs Comments Pt improved taller posturing and less trunk SB and scissor stepping post ther ex. Neuro Re-Education Treatment Balance Activities SLS, tandem Equipment mirror Reps/Duration 3x ea Comments cues for keeping pelvis horizontal PT-OP-R Modalities Start: 07/15/22 16:45 Freq: Status: Active Protocol: Document 12/04/22 08:59 [facility] (Rec: 12/04/22 09:51 [facility] [id number]) Hot Pack/Cold Pack Treatment Heat Comments declined, didn't feel need PT-OP-T Assessment and Plan Start: 07/15/22 16:45 Freq: Status: Active Protocol: Document 12/09/22 08:58 [facility] (Rec: 12/09/22 09:47 [facility] [id number]) Physical Therapy Assessment Impairments Impairments Activity Tolerance,Balance, Pain,Posture,Strength Goals activity tolerance Impairment Oswestry disability index score 44% Short Term Goal (STG) Decrease Oswestry score to no greater than 30% as measure of improved activity tolerance and function 08/21/22: good goal progress 11/05/22: goal met STG Duration goal met Detention Goal (LTG) Decrease Oswestry score to no greater than 20% as measur of improved activity tolerance and function in her day to day life. 11/05/22: good goal progress, dec to 25% LTG Duration 11/18/22 weakness Impairment trunk and core muscle weakness Impairment weakness throughout trunk musculature Short Term Goal (STG) patient to be instructed in HEP for purposes of trunk and core strengthening 08/15/22: ongoing 11/27/22: cues for assurance of set up and proper form for confidence in [place]. See HOs. STG Duration goal met; ongoing progression 11/27/22 Office Electrician Goal (LTG) Patient will be independent and compliant with HEP and demonstrate improved muscle strength throughout trunk and core 10/23/22; good progress toward goals 11/05/22: patient compliant with HEP, continues to require cues for improved technique and safety. LTG Duration 11/18/22 Two Impairment pain thoracolumbar Impairment Pain as high as 6/10 limiting ability to stand, walk, and do usual activities Short Term Goal (STG) Decrease pain to no greater than 4/10 with all usual activities 08/15/22: good goal progress STG Duration goal met Detention Goal (LTG) Decrease pain to no greater than 2/10 with patient able to resume more physical activities without difficulty 10/23/22:still pain across shoulder blades at 4/10 11/05/22: pain generally 3-4/10 LTG Duration 11/18/22 1 Impairment postural dysfunction Impairment excess thoracic kyphosis and lumbar lordosis Short Term Goal (STG) Patient to receive postural education and therapeutic exercises for postural correction 08/21/22: good goal progress STG Duration goal met; continued progression Detention Goal (LTG) Patient to demonstrate improved postural awareness statically and dynamically with functional movement and activities 08/21/22: goal progress 10/23/22: good goal progress with less cues required 11/05/22: min cues in sitting, more frequent in standing due to posterior positioning of thorax tendency LTG Duration 11/18/22 Assessment Summary Assessment Gait improves with use of mirror, decreased step length, cues for gluteal activation. Mod cues to decrease trunk rotation with all 4's LE lift. Patient highly compliant to HEP. Physical Therapy Plan Frequency and Duration Frequency of Treatment 1x/Week Duration of treatment (weeks) 6 Plan of Care Start Date 12/04/22 Plan of Care End Date 01/08/23 Therapeutic Interventions Therapeutic Interventions Manual Therapy,Patient/ Caregiver Education,Self-Care/ Home Management,Soft Tissue Mobilization,Therapeutic Activities,Therapeutic Exercises Modalities Electric Stimulation,Hot Packs ,Traction- Mechanical, Ultrasound Next Visit Focus/Plan Next Note Type Treatment Note Next Visit Plan Continue therapeutic exercise progression with emphasis on closed chain functional activites
--- NOTE | 2022-12-20 11:41 | PT.OTN ---
Current Diagnoses Spinal stenosis, cervical region (12/20/22) Low back pain, unspecified (12/20/22) Pain in thoracic spine (12/20/22) Abnormal posture (12/20/22) Weakness (12/20/22) Physical Therapy Treatment Note PT-OP-A Visit Information Start: 07/15/22 16:45 Freq: Status: Active Protocol: Document 12/20/22 10:59 NBM (Rec: 12/20/22 11:41 NBM [id number]) Out-Patient Physical Therapy Visit Information Visit Information Visit Type Treatment Note Visit Start Time 10:47 Visit Stop Time 11:35 Total Visit Minutes 43 Visit Number 25 Number of SUPERINTENDENT DRILLING Visits 1 PT-OP-B Current Condition Start: 07/15/22 16:45 Freq: Status: Active Protocol: Document 07/18/22 12:55 SAK (Rec: 07/18/22 13:46 SAK [id number]) Current Condition History of Current Condition Onset Date 2-3 yrs ago Current Complaints mid back pain History of Current Condition gradual onset of pain mid back . No treatment for it; no exercises, no heat or ice. Takes Ibuprofen and Acetaminophen. Sleeps on side or back. Has just resumed doing exercises for shoulder and low back. Sits and lays down a lot. CAn't walk more than a few blocks due to hip and spinal pain. States middle glut doesn't fire, PT some helpful but didn't resolve issue, but pain is mostly throughout spine. Prior Treatments and Tests prior PT for RC, hip, gluts x-rays show excess kyphosis, and lots of arthritis per patient report, in Dr. Flanagan's office. Treatment Goals Patient/Caregiver Goals IMprove her posture, strength, and activity tolerance PT-OP-C Subjective Start: 07/15/22 16:45 Freq: Status: Active Protocol: Document 12/20/22 10:59 NBM (Rec: 12/20/22 11:41 NBM [id number]) OP-PT Subjective Patient Comments Patient Comments Pt states she wants to work on balance and her back. She thinks the shuttle recovery is a good exercise. She reports no back pain today. PT-OP-D Balance Start: 07/15/22 16:45 Freq: Status: Active Protocol: Document 07/16/22 15:28 SAK (Rec: 07/17/22 10:40 SAK [id number]) OP-PT Balance Assessment Sitting Balance Static Sitting Balance Ability Good Dynamic Sitting Balance Ability Good Standing Balance Static Standing Balance Ability Fair Dynamic Standing Balance Ability Poor Standing Balance Comments encouraged patient to use cane or trekking poles due to her expressed fear of falling, difficulty with balance Garza Fall Scale Copyright Permission PT-OP-G Mobility & Gait Start: 07/15/22 16:45 Freq: Status: Active Protocol: Document 07/16/22 15:28 [facility] (Rec: 07/17/22 10:40 [facility] [id number]) OP Mobility Evaluation Bed Mobility Supine to and from Sit instrsucted in log roll for spinal protection, practice x 3 with improving performance with repeititoin OP Gait Assessment Gait Deviations General Gait Pattern Decreased Stride Length, Decreased Feet Clearance PT-OP-H Neuro Start: 07/15/22 16:45 Freq: Status: Active Protocol: Document 07/16/22 15:28 [facility] (Rec: 07/17/22 14:20 [facility] [id number]) Sensation Evaluation Gross Sensation Gross Sensation WNL PT-OP-J Posture/Palpation/Skin Start: 07/15/22 16:45 Freq: Status: Active Protocol: Document 07/16/22 15:28 [facility] (Rec: 07/17/22 14:20 [facility] [id number]) Posture Evaluation Position Standing Head/C-Spine Posture Forward Head T-Spine Posture Increased Kyphosis L-Spine Posture Increased Lordosis Shoulder Posture (L) Rounded,(R) Rounded Scapula Posture (L) Protracted,(R) Protracted Arm Posture (L) Internally Rotated,(R) Internally Rotated Palpation Assessment Location thoracolumbar paraspinals Palpation Location zachery Palpation Findings Soft Tissue Tightness, Tenderness PT-OP-K Range of Motion Start: 07/15/22 16:45 Freq: Status: Active Protocol: Document 07/16/22 15:28 [facility] (Rec: 07/17/22 14:20 [facility] [id number]) Lumbar Spine Range of Motion Lumbar Spine Active ROM Limitations Soft Tissue Tightness,Pain Comments moderately decreased all motions PT-OP-M Strength Start: 07/15/22 16:45 Freq: Status: Active Protocol: Document 07/16/22 15:28 [facility] (Rec: 07/17/22 14:20 [facility] [id number]) Trunk Strength Trunk Manual Muscle Testing Core Stabilization poor Comments Unable to do formal MMT due to pain Hip Strength Hip Manual Muscle Testing zachery Flexion (L2) 3+ Fair+ Extension (S1) 3+ Fair+ Abduction 3+ Fair+ Adduction 3+ Fair+ External Rotation 3+ Fair+ Internal Rotation 3+ Fair+ Comments limited by pain PT-OP-Q Treatments Start: 07/15/22 16:45 Freq: Status: Active Protocol: Document 12/20/22 10:59 NBM (Rec: 12/20/22 11:41 NBM [id number]) Gym Equipment Shuttle Recovery B squat Resistance 50 Shuttle Recovery Platform Unstable Reps/Time x30 SL squat Details good effort, cued knee alignment glut/quad facilitation Resistance 37# (new band) Shuttle Recovery Platform Stable Reps/Time 2x15 B alternating Shuttle Balance red chains Details WBOS, EO/EC, bal and wt shift f/b, HTs, Head nods Reps/Duration 10 min total Comments balloon volleyball w/ PT 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 CG- 10% A Therapeutic Exercises Supine Exercises bridge Reps/Minutes 6x Comments cues for segmental movement pec stretch Supine Exercise Name 45 deg, 80 deg abd Equipment Used towel roll under head only needed 2/1 Reps/Minutes 2x30 Comments good elke overhead stretch Supine Exercise Name FF OH Reps/Minutes x5 reps Comments 1 pillow under head support neutral c spine, TA throughout range goal post Supine Exercise Name tactile cue to keep shoulders down elbows straight Equipment Used FF (//)> goal post(Ws) Reps/Minutes 10x each Comments emphasis on the external rot at L shld triangle stretch Supine Exercise Name triangle press Reps/Minutes 10x10 Comments pillows no longer needed under elbows Sidelying Exercises Hip abduction Sidelying Exercise Name modified clam full leg lift Resistance R >L knee slight bent Equipment Used (her HEP image prefers modify longer clamshell image lift) Reps/Minutes 10x2 Comments cued slower , hold 2-3 sec Sitting Exercises sit to stand Equipment Used blue foam under feet Reps/Minutes 10x Comments occ cues for knee valgus PT-OP-R Modalities Start: 07/15/22 16:45 Freq: Status: Active Protocol: Document 12/04/22 08:59 SAK (Rec: 12/04/22 09:51 SAK [id number]) Hot Pack/Cold Pack Treatment Heat Comments declined, didn't feel need PT-OP-T Assessment and Plan Start: 07/15/22 16:45 Freq: Status: Active Protocol: Document 12/20/22 10:59 NBM (Rec: 12/20/22 11:41 NBM [id number]) Physical Therapy Assessment Goals activity tolerance Impairment Oswestry disability index score 44% Short Term Goal (STG) Decrease Oswestry score to no greater than 30% as measure of improved activity tolerance and function 08/21/22: good goal progress 11/05/22: goal met STG Duration goal met Mcfp Goal (LTG) Decrease Oswestry score to no greater than 20% as measur of improved activity tolerance and function in her day to day life. 11/05/22: good goal progress, dec to 25% LTG Duration 11/18/22 weakness Impairment trunk and core muscle weakness Impairment weakness throughout trunk musculature Short Term Goal (STG) patient to be instructed in HEP for purposes of trunk and core strengthening 08/15/22: ongoing 11/27/22: cues for assurance of set up and proper form for confidence in [place]. See HOs. STG Duration goal met; ongoing progression 11/27/22 Mcfp Goal (LTG) Patient will be independent and compliant with HEP and demonstrate improved muscle strength throughout trunk and core 10/23/22; good progress toward goals 11/05/22: patient compliant with HEP, continues to require cues for improved technique and safety. LTG Duration 11/18/22 Two Impairment pain thoracolumbar Impairment Pain as high as 6/10 limiting ability to stand, walk, and do usual activities Short Term Goal (STG) Decrease pain to no greater than 4/10 with all usual activities 08/15/22: good goal progress STG Duration goal met County Supervisor Goal (LTG) Decrease pain to no greater than 2/10 with patient able to resume more physical activities without difficulty 10/23/22:still pain across shoulder blades at 4/10 11/05/22: pain generally 3-4/10 LTG Duration 11/18/22 1 Impairment postural dysfunction Impairment excess thoracic kyphosis and lumbar lordosis Short Term Goal (STG) Patient to receive postural education and therapeutic exercises for postural correction 08/21/22: good goal progress STG Duration goal met; continued progression County Supervisor Goal (LTG) Patient to demonstrate improved postural awareness statically and dynamically with functional movement and activities 08/21/22: goal progress 10/23/22: good goal progress with less cues required 11/05/22: min cues in sitting, more frequent in standing due to posterior positioning of thorax tendency LTG Duration 11/18/22 Assessment Summary Assessment Pt demonstrates improving balance on shuttle balance with staggered stance head turns and a/p weightshifting. Pt is challenged w/ eyes closed and vertical head nods. Pt requires occ cues for knee valgus with sit to stand and has improved balance with improved LE alignment. Physical Therapy Plan Frequency and Duration Frequency of Treatment 1x/Week Duration of treatment (weeks) 6 Plan of Care Start Date 12/04/22 Plan of Care End Date 01/08/23 Therapeutic Interventions Therapeutic Interventions Manual Therapy,Patient/ Caregiver Education,Self-Care/ Home Management,Soft Tissue Mobilization,Therapeutic Activities,Therapeutic Exercises Modalities Electric Stimulation,Hot Packs ,Traction- Mechanical, Ultrasound Next Visit Focus/Plan Next Note Type Treatment Note Next Visit Plan Continue therapeutic exercise progression with emphasis on closed chain functional activites
--- NOTE | 2022-12-25 10:30 | PT.OTN ---
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 No treatment for it; no exercises, no heat or ice. Takes Ibuprofen and Acetaminophen. Sleeps on side or back. Has just resumed doing exercises for shoulder and low back. Sits and lays down a lot. CAn't walk more than a few blocks due to hip and spinal pain. States middle glut doesn't fire, PT some helpful but didn't resolve issue, but pain is mostly throughout spine. Prior Treatments and Tests prior PT for RC, hip, gluts x-rays show excess kyphosis, and lots of arthritis per patient report, in Dr. Flanagan's office. Treatment Goals Patient/Caregiver Goals IMprove her posture, strength, and activity tolerance PT-OP-C Subjective Start: 07/15/22 16:45 Freq: Status: Active Protocol: Document 12/25/22 09:48 SP (Rec: 12/25/22 10:31 SP [id number]) OP-PT Subjective Patient Comments Patient Comments Pt reports noticing R ankle inverting with swing phase and heel catching inside of R foot and near trips her up, low back is stiff and need continue R glut strengthening to support standing better. PT-OP-D Balance Start: 07/15/22 16:45 Freq: Status: Active Protocol: Document 07/16/22 15:28 [facility] (Rec: 07/17/22 10:40 [facility] [id number]) OP-PT Balance Assessment Sitting Balance Static Sitting Balance Ability Good Dynamic Sitting Balance Ability Good Standing Balance Static Standing Balance Ability Fair Dynamic Standing Balance Ability Poor Standing Balance Comments encouraged patient to use cane or trekking poles due to her expressed fear of falling, difficulty with balance Garza Fall Scale Copyright Permission PT-OP-G Mobility & Gait Start: 07/15/22 16:45 Freq: Status: Active Protocol: Document 07/16/22 15:28 [facility] (Rec: 07/17/22 10:40 [facility] [id number]) OP Mobility Evaluation Bed Mobility Supine to and from Sit instrsucted in log roll for spinal protection, practice x 3 with improving performance with repeititoin OP Gait Assessment Gait Deviations General Gait Pattern Decreased Stride Length, Decreased Feet Clearance PT-OP-H Neuro Start: 07/15/22 16:45 Freq: Status: Active Protocol: Document 07/16/22 15:28 [facility] (Rec: 07/17/22 14:20 [facility] [id number]) Sensation Evaluation Gross Sensation Gross Sensation WNL PT-OP-J Posture/Palpation/Skin Start: 07/15/22 16:45 Freq: Status: Active Protocol: Document 07/16/22 15:28 [facility] (Rec: 07/17/22 14:20 [facility] [id number]) Posture Evaluation Position Standing Head/C-Spine Posture Forward Head T-Spine Posture Increased Kyphosis L-Spine Posture Increased Lordosis Shoulder Posture (L) Rounded,(R) Rounded Scapula Posture (L) Protracted,(R) Protracted Arm Posture (L) Internally Rotated,(R) Internally Rotated Palpation Assessment Location thoracolumbar paraspinals Palpation Location zachery Palpation Findings Soft Tissue Tightness, Tenderness PT-OP-K Range of Motion Start: 07/15/22 16:45 Freq: Status: Active Protocol: Document 07/16/22 15:28 [facility] (Rec: 07/17/22 14:20 [facility] [id number]) Lumbar Spine Range of Motion Lumbar Spine Active ROM Limitations Soft Tissue Tightness,Pain Comments moderately decreased all motions PT-OP-M Strength Start: 07/15/22 16:45 Freq: Status: Active Protocol: Document 07/16/22 15:28 [facility] (Rec: 07/17/22 14:20 [facility] [id number]) Trunk Strength Trunk Manual Muscle Testing Core Stabilization poor Comments Unable to do formal MMT due to pain Hip Strength Hip Manual Muscle Testing zachery Flexion (L2) 3+ Fair+ Extension (S1) 3+ Fair+ Abduction 3+ Fair+ Adduction 3+ Fair+ External Rotation 3+ Fair+ Internal Rotation 3+ Fair+ Comments limited by pain PT-OP-Q Treatments Start: 07/15/22 16:45 Freq: Status: Active Protocol: Document 12/25/22 09:48 SP (Rec: 12/25/22 10:31 SP [id number]) Therapeutic Exercises Supine Exercises pec stretch Supine Exercise Name 45 deg, 80 deg abd w/ LTR Equipment Used towel roll under head only needed 2/1 Reps/Minutes 2x30 Comments good feedback stretch Standing Exercises step up Standing Exercise Name 1. 6 bottom step rail PRN 2. 4 portable step DOUBLE NEEDLE STITCHER 10%A on L 3. 4step foam Resistance CG- 20%A last few reps step/ foam during RLE ascend Equipment Used 6 step, 4 step + blue foam- Reps/Minutes 10x reps ea Comments improved glut/ hip abd fac with cues flat foot. 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 PT-OP-R Modalities Start: 07/15/22 16:45 Freq: Status: Active Protocol: Document 12/04/22 08:59 SAK (Rec: 12/04/22 09:51 [facility] [id number]) Hot Pack/Cold Pack Treatment Heat Comments declined, didn't feel need PT-OP-T Assessment and Plan Start: 07/15/22 16:45 Freq: Status: Active Protocol: Document 12/25/22 09:48 SP (Rec: 12/25/22 10:31 SP [id number]) Physical Therapy Assessment Goals activity tolerance Impairment Oswestry disability index score 44% Short Term Goal (STG) Decrease Oswestry score to no greater than 30% as measure of improved activity tolerance and function 08/21/22: good goal progress 11/05/22: goal met STG Duration goal met Residential Goal (LTG) Decrease Oswestry score to no greater than 20% as measur of improved activity tolerance and function in her day to day life. 11/05/22: good goal progress, dec to 25% LTG Duration 11/18/22 weakness Impairment trunk and core muscle weakness Impairment weakness throughout trunk musculature Short Term Goal (STG) patient to be instructed in HEP for purposes of trunk and core strengthening 08/15/22: ongoing 11/27/22: cues for assurance of set up and proper form for confidence in [place]. See HOs. STG Duration goal met; ongoing progression 11/27/22 Residential Goal (LTG) Patient will be independent and compliant with HEP and demonstrate improved muscle strength throughout trunk and core 10/23/22; good progress toward goals 11/05/22: patient compliant with HEP, continues to require cues for improved technique and safety. LTG Duration 11/18/22 Two Impairment pain thoracolumbar Impairment Pain as high as 6/10 limiting ability to stand, walk, and do usual activities Short Term Goal (STG) Decrease pain to no greater than 4/10 with all usual activities 08/15/22: good goal progress STG Duration goal met Welding Machine Operator Gas Goal (LTG) Decrease pain to no greater than 2/10 with patient able to resume more physical activities without difficulty 10/23/22:still pain across shoulder blades at 4/10 11/05/22: pain generally 3-4/10 LTG Duration 11/18/22 1 Impairment postural dysfunction Impairment excess thoracic kyphosis and lumbar lordosis Short Term Goal (STG) Patient to receive postural education and therapeutic exercises for postural correction 08/21/22: good goal progress STG Duration goal met; continued progression Residential Goal (LTG) Patient to demonstrate improved postural awareness statically and dynamically with functional movement and activities 08/21/22: goal progress 10/23/22: good goal progress with less cues required 11/05/22: min cues in sitting, more frequent in standing due to posterior positioning of thorax tendency LTG Duration 11/18/22 Assessment Summary Assessment Pt improved stability and increase SLS time during uneven surface step ups and lessened back discomfort during hip hinge cone pick pack worker. Ended with stretching and stated felt alot better. Physical Therapy Plan Frequency and Duration Frequency of Treatment 1x/Week Duration of treatment (weeks) 6 Plan of Care Start Date 12/04/22 Plan of Care End Date 01/08/23 Therapeutic Interventions Therapeutic Interventions Manual Therapy,Patient/ Caregiver Education,Self-Care/ Home Management,Soft Tissue Mobilization,Therapeutic Activities,Therapeutic Exercises Modalities Electric Stimulation,Hot Packs ,Traction- Mechanical, Ultrasound Next Visit Focus/Plan Next Note Type Treatment Note Next Visit Plan Update response to goals. See if added more appts. CHeck response to dynamic standing HEP uneven surface. POC: Continue therapeutic exercise progression with emphasis on closed chain functional activites
--- NOTE | 2022-12-31 11:25 | PT.OTN ---
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 No treatment for it; no exercises, no heat or ice. Takes Ibuprofen and Acetaminophen. Sleeps on side or back. Has just resumed doing exercises for shoulder and low back. Sits and lays down a lot. CAn't walk more than a few blocks due to hip and spinal pain. States middle glut doesn't fire, PT some helpful but didn't resolve issue, but pain is mostly throughout spine. Prior Treatments and Tests prior PT for RC, hip, gluts x-rays show excess kyphosis, and lots of arthritis per patient report, in Dr. Flanagan's office. Treatment Goals Patient/Caregiver Goals IMprove her posture, strength, and activity tolerance PT-OP-C Subjective Start: 07/15/22 16:45 Freq: Status: Active Protocol: Document 12/31/22 10:35 SP (Rec: 12/31/22 11:35 SP [id number]) OP-PT Subjective Patient Comments Patient Comments Pt reports felt good and little tired after last tx but no back pain. TOday mid back hurting and still hard time not lovely crossing gait so knows still weakness in hips. Is compliant with HEP PT-OP-D Balance Start: 07/15/22 16:45 Freq: Status: Active Protocol: Document 07/16/22 15:28 [facility] (Rec: 07/17/22 10:40 [facility] [id number]) OP-PT Balance Assessment Sitting Balance Static Sitting Balance Ability Good Dynamic Sitting Balance Ability Good Standing Balance Static Standing Balance Ability Fair Dynamic Standing Balance Ability Poor Standing Balance Comments encouraged patient to use cane or trekking poles due to her expressed fear of falling, difficulty with balance Garza Fall Scale Copyright Permission PT-OP-G Mobility & Gait Start: 07/15/22 16:45 Freq: Status: Active Protocol: Document 07/16/22 15:28 [facility] (Rec: 07/17/22 10:40 [facility] [id number]) OP Mobility Evaluation Bed Mobility Supine to and from Sit instrsucted in log roll for spinal protection, practice x 3 with improving performance with repeititoin OP Gait Assessment Gait Deviations General Gait Pattern Decreased Stride Length, Decreased Feet Clearance PT-OP-H Neuro Start: 07/15/22 16:45 Freq: Status: Active Protocol: Document 07/16/22 15:28 [facility] (Rec: 07/17/22 14:20 [facility] [id number]) Sensation Evaluation Gross Sensation Gross Sensation WNL PT-OP-J Posture/Palpation/Skin Start: 07/15/22 16:45 Freq: Status: Active Protocol: Document 07/16/22 15:28 [facility] (Rec: 07/17/22 14:20 [facility] [id number]) Posture Evaluation Position Standing Head/C-Spine Posture Forward Head T-Spine Posture Increased Kyphosis L-Spine Posture Increased Lordosis Shoulder Posture (L) Rounded,(R) Rounded Scapula Posture (L) Protracted,(R) Protracted Arm Posture (L) Internally Rotated,(R) Internally Rotated Palpation Assessment Location thoracolumbar paraspinals Palpation Location zachery Palpation Findings Soft Tissue Tightness, Tenderness PT-OP-K Range of Motion Start: 07/15/22 16:45 Freq: Status: Active Protocol: Document 07/16/22 15:28 [facility] (Rec: 07/17/22 14:20 [facility] [id number]) Lumbar Spine Range of Motion Lumbar Spine Active ROM Limitations Soft Tissue Tightness,Pain Comments moderately decreased all motions PT-OP-M Strength Start: 07/15/22 16:45 Freq: Status: Active Protocol: Document 07/16/22 15:28 SAK (Rec: 07/17/22 14:20 SAK [id number]) Trunk Strength Trunk Manual Muscle Testing Core Stabilization poor Comments Unable to do formal MMT due to pain Hip Strength Hip Manual Muscle Testing zachery Flexion (L2) 3+ Fair+ Extension (S1) 3+ Fair+ Abduction 3+ Fair+ Adduction 3+ Fair+ External Rotation 3+ Fair+ Internal Rotation 3+ Fair+ Comments limited by pain PT-OP-Q Treatments Start: 07/15/22 16:45 Freq: Status: Active Protocol: Document 12/31/22 10:35 SP (Rec: 12/31/22 11:35 SP [id number]) Therapeutic Exercises Sidelying Exercises Hip abduction Sidelying Exercise Name modified clam full leg lift Resistance R >L knee slight bent Equipment Used (her HEP image prefers modify longer clamshell image lift) Reps/Minutes 10x2, 2 SH Comments cued slow con/eccentric movement- good form Standing Exercises step up Standing Exercise Name balance component w/ less UE support Resistance CORPORATE COMMUNICATIONS SPECIALIST RUE> CGA Equipment Used 6 portable step + blue foam Reps/Minutes 10x reps ea Comments improved glut/ hip abd fac with cues flat foot soft/quiet step. row, shld ext Standing Exercise Name improved core, glut facilitation Resistance L2 ext, L3 rows Equipment Used floor x10 reps, on blue foam x10 reps Comments verbal cues posturing, equal between BLEs Gait Training Gait Activity TA, posturing, glut med Description f/side stepping mirror Comments cued smaller stride L>R, tall posturing, full foot, increase LUCINDA. less SB noted during gait. Manual Therapy Treatment Soft Tissue Mobilization thoracic paraspinals, rhomboids, LS Body Location B TS ES, paraspinal, rhomboids Mobilization Type Strumming Intensity/Depth Moderate Body Position Prone Comments pillows under pelvis, head on hands PT-OP-R Modalities Start: 07/15/22 16:45 Freq: Status: Active Protocol: Document 12/31/22 10:35 SP (Rec: 12/31/22 11:35 SP [id number]) Hot Pack/Cold Pack Treatment Heat Location supine LS, TS (layed on) Patient Position Hooklying Treatment Duration (minutes) 4 Patient Tolerance Fair Comments pt requested, mid back little sore after much stand activities, decreased tolerance, due to required increase towel layering and pad rolled up under mid back. Pt stated back felt more relaxed post. PT-OP-T Assessment and Plan Start: 07/15/22 16:45 Freq: Status: Active Protocol: Document 12/31/22 10:35 SP (Rec: 12/31/22 11:35 SP [id number]) Physical Therapy Assessment Goals activity tolerance Impairment Oswestry disability index score 44% Short Term Goal (STG) Decrease Oswestry score to no greater than 30% as measure of improved activity tolerance and function 08/21/22: good goal progress 11/05/22: goal met STG Duration goal met Hydraulic Jack Operator Goal (LTG) Decrease Oswestry score to no greater than 20% as measur of improved activity tolerance and function in her day to day life. 11/05/22: good goal progress, dec to 25% LTG Duration 11/18/22 weakness Impairment trunk and core muscle weakness Impairment weakness throughout trunk musculature Short Term Goal (STG) patient to be instructed in HEP for purposes of trunk and core strengthening 08/15/22: ongoing 11/27/22: cues for assurance of set up and proper form for confidence in [place]. See HOs. STG Duration goal met; ongoing progression 11/27/22 Usp Goal (LTG) Patient will be independent and compliant with HEP and demonstrate improved muscle strength throughout trunk and core 10/23/22; good progress toward goals 11/05/22: patient compliant with HEP, continues to require cues for improved technique and safety. LTG Duration 11/18/22 Two Impairment pain thoracolumbar Impairment Pain as high as 6/10 limiting ability to stand, walk, and do usual activities Short Term Goal (STG) Decrease pain to no greater than 4/10 with all usual activities 08/15/22: good goal progress STG Duration goal met Hydraulic Jack Operator Goal (LTG) Decrease pain to no greater than 2/10 with patient able to resume more physical activities without difficulty 10/23/22:still pain across shoulder blades at 4/10 11/05/22: pain generally 3-4/10 12/31/22: progressing: states medium pain mid/low back , but other times more pain like sitting at desk >30 min, sitting in chair about 1 hr w/ pillow behind back. LTG Duration 11/18/22 progressing 12/31/22 1 Impairment postural dysfunction Impairment excess thoracic kyphosis and lumbar lordosis Short Term Goal (STG) Patient to receive postural education and therapeutic exercises for postural correction 08/21/22: good goal progress STG Duration goal met; continued progression Usp Goal (LTG) Patient to demonstrate improved postural awareness statically and dynamically with functional movement and activities 08/21/22: goal progress 10/23/22: good goal progress with less cues required 11/05/22: min cues in sitting, more frequent in standing due to posterior positioning of thorax tendency\ 12/31/22: progressing: tries to e conscious of posture sitting with pillow behind back, and walking but is still very challenging keeping feet from crossing and cued slow pacing. LTG Duration 11/18/22 progressing 12/31/22 Assessment Summary Assessment Pt able to increase resistance with standing UE ther ex, cued slow eccentric control with good carryover posturing during gait, and cues increase LUCINDA and lessened stride allowed decreased SB trunk wt shift. Education importance of self awareness during gait to allow increased core/glut med stabilization R>L. Physical Therapy Plan Frequency and Duration Frequency of Treatment 1x/Week Duration of treatment (weeks) 6 Plan of Care Start Date 12/04/22 Plan of Care End Date 01/08/23 Therapeutic Interventions Therapeutic Interventions Manual Therapy,Patient/ Caregiver Education,Self-Care/ Home Management,Soft Tissue Mobilization,Therapeutic Activities,Therapeutic Exercises Modalities Electric Stimulation,Hot Packs ,Traction- Mechanical, Ultrasound Next Visit Focus/Plan Next Note Type Treatment Note Next Visit Plan POC update soon, expires . See if added for more appts. POC: Continue therapeutic exercise progression with emphasis on closed chain functional activites
--- NOTE | 2023-01-06 08:22 | PT.OTRE ---
Current Diagnoses Spinal stenosis, cervical region (01/06/23) Low back pain, unspecified (01/06/23) Pain in thoracic spine (01/06/23) Abnormal posture (01/06/23) Weakness (01/06/23) Past Medical History (Last Reviewed 03/07/22 @ 08:15 by Juanita Valladares PA-C) Cancer Cataracts, bilateral (~2015) Chicken pox Chronic renal failure, stage 3 (moderate) Constipation Cyclothymia Depression Fecal incontinence (~2014) Fractures (~2004) Genital warts (~1984) Heart palpitations History of urinary incontinence (~2014) Incomplete left bundle branch block (LBBB) Lumbar spinal stenosis Measles Mixed urge and stress incontinence Osteoporosis, unspecified Overactive bladder Sciatica Urge incontinence Urinary frequency UTI (urinary tract infection) Viral cardiomyopathy Surgical History (Last Reviewed 03/07/22 @ 08:15 by Juanita Valladares PA-C) Anesthesia H/O hernia repair History of vaginal hysterectomy (~1996) Melanoma (~1981) Visit Care Team Role Provider Type Joshua Chin MD Family Provider Physician Primary Care Provider Specialty: Internal Medicine Address: [address] [place] [address], [address], [address] Email: [email or web address] Mitchell MD Attending Provider Physician Referring Provider Specialty: Orthopedics Orthopedic Surgery Address: [address] [place] [address], [id number] Email: [email or web address] Physical Therapy Re-Evaluation PT-OP-A Visit Information Start: 07/15/22 16:45 Freq: Status: Active Protocol: Document 01/06/23 14:30 SAK (Rec: 01/06/23 15:19 SAK [id number]) Out-Patient Physical Therapy Visit Information Visit Information Visit Type Re-Evaluation Visit Start Time 14:31 Visit Stop Time 15:15 Total Visit Minutes 44 Visit Number 28 Evaluation Information Evaluation Date 07/16/22 Precautions Precautions PMH: neck pain, left RC repair s/p fall, back pain, hip pain , balance dysfunction PT-OP-B Current Condition Start: 07/15/22 16:45 Freq: Status: Active Protocol: Document 07/18/22 12:55 [facility] (Rec: 07/18/22 13:46 [facility] [id number]) Current Condition History of Current Condition Onset Date 2-3 yrs ago Current Complaints mid back pain History of Current Condition gradual onset of pain mid back . No treatment for it; no exercises, no heat or ice. Takes Ibuprofen and Acetaminophen. Sleeps on side or back. Has just resumed doing exercises for shoulder and low back. Sits and lays down a lot. CAn't walk more than a few blocks due to hip and spinal pain. States middle glut doesn't fire, PT some helpful but didn't resolve issue, but pain is mostly throughout spine. Prior Treatments and Tests prior PT for RC, hip, gluts x-rays show excess kyphosis, and lots of arthritis per patient report, in Dr. Flanagan's office. Treatment Goals Patient/Caregiver Goals IMprove her posture, strength, and activity tolerance PT-OP-C Subjective Start: 07/15/22 16:45 Freq: Status: Active Protocol: Document 01/06/23 14:30 [facility] (Rec: 01/06/23 15:19 [facility] [id number]) OP-PT Subjective Patient Comments Patient Comments Doing some of the exercises at home. Needs to strengthen abdominals and glutes to walk better. PT-OP-D Balance Start: 07/15/22 16:45 Freq: Status: Active Protocol: Document 07/16/22 15:28 [facility] (Rec: 07/17/22 10:40 [facility] [id number]) OP-PT Balance Assessment Sitting Balance Static Sitting Balance Ability Good Dynamic Sitting Balance Ability Good Standing Balance Static Standing Balance Ability Fair Dynamic Standing Balance Ability Poor Standing Balance Comments encouraged patient to use cane or trekking poles due to her expressed fear of falling, difficulty with balance Garza Fall Scale Copyright Permission Greg CLEMONS, Greg RM, Wil SJ. Development of a scale to identify the fall- prone patient. Can J Aging 1989;8;366-7. Paulino Garza (2009). Preventing patient falls. (2nd ed). [place]: [place]. PT-OP-G Mobility & Gait Start: 07/15/22 16:45 Freq: Status: Active Protocol: Document 07/16/22 15:28 [facility] (Rec: 07/17/22 10:40 [facility] [id number]) OP Mobility Evaluation Bed Mobility Supine to and from Sit instrsucted in log roll for spinal protection, practice x 3 with improving performance with repeititoin OP Gait Assessment Gait Deviations General Gait Pattern Decreased Stride Length, Decreased Feet Clearance PT-OP-H Neuro Start: 07/15/22 16:45 Freq: Status: Active Protocol: Document 07/16/22 15:28 [facility] (Rec: 07/17/22 14:20 [facility] [id number]) Sensation Evaluation Gross Sensation Gross Sensation WNL PT-OP-J Posture/Palpation/Skin Start: 07/15/22 16:45 Freq: Status: Active Protocol: Document 07/16/22 15:28 [facility] (Rec: 07/17/22 14:20 [facility] [id number]) Posture Evaluation Position Standing Head/C-Spine Posture Forward Head T-Spine Posture Increased Kyphosis L-Spine Posture Increased Lordosis Shoulder Posture (L) Rounded,(R) Rounded Scapula Posture (L) Protracted,(R) Protracted Arm Posture (L) Internally Rotated,(R) Internally Rotated Palpation Assessment Location thoracolumbar paraspinals Palpation Location zachery Palpation Findings Soft Tissue Tightness, Tenderness PT-OP-K Range of Motion Start: 07/15/22 16:45 Freq: Status: Active Protocol: Document 07/16/22 15:28 [facility] (Rec: 07/17/22 14:20 [facility] [id number]) Lumbar Spine Range of Motion Lumbar Spine Active ROM Limitations Soft Tissue Tightness,Pain Comments moderately decreased all motions PT-OP-M Strength Start: 07/15/22 16:45 Freq: Status: Active Protocol: Document 07/16/22 15:28 [facility] (Rec: 07/17/22 14:20 [facility] [id number]) Trunk Strength Trunk Manual Muscle Testing Core Stabilization poor Comments Unable to do formal MMT due to pain Hip Strength Hip Manual Muscle Testing zachery Flexion (L2) 3+ Fair+ Extension (S1) 3+ Fair+ Abduction 3+ Fair+ Adduction 3+ Fair+ External Rotation 3+ Fair+ Internal Rotation 3+ Fair+ Comments limited by pain PT-OP-Q Treatments Start: 07/15/22 16:45 Freq: Status: Active Protocol: Document 01/06/23 14:30 [facility] (Rec: 01/06/23 15:19 [facility] [id number]) Gym Equipment Shuttle Recovery B squat Resistance 62 Shuttle Recovery Platform Unstable Reps/Time 12x2 SL squat Details good effort, cued knee alignment glut/quad facilitation Resistance 37# (new band) Shuttle Recovery Platform Stable Reps/Time 2x10 B alternating Shuttle Balance red chains Details WBOS, EO/EC, bal and wt shift f/b, HTs, Head nods Reps/Duration 10 min total Comments balloon volleyball w/ PT Aide 1 COLLAR SEWER WBOS a/p, m/l cued chest lift posturing, scap complex/ core engagement then wt shift instructed. CG- 10% A Therapeutic Exercises Supine Exercises single leg bridge Reps/Minutes 5x Comments cues for activating glutes, lift only if able without pelvis tipping Prone Exercises cat.cow Reps/Minutes 5x Comments vc pelvic A/P tilt full range can Quadruped Prone Exercise Name Leg then UEs today Side bilateral Reps/Minutes 5x Comments good level pelvis/scap and CS chin tuck- nice effort Sidelying Exercises Hip abduction Sidelying Exercise Name modified clam full leg lift Resistance R >L knee slight bent Equipment Used (her HEP image prefers modify longer clamshell image lift) Reps/Minutes 10x2, 2 SH Comments cued slow con/eccentric movement- good form Standing Exercises hip ext Equipment Used L2 TB Reps/Minutes 10x step up Standing Exercise Name balance component w/ less UE support Resistance COLLAR SEWER RUE> CGA Equipment Used 6 portable step + blue foam Reps/Minutes 10x reps ea Comments improved glut/ hip abd fac with cues flat foot soft/quiet step. Self-Care/Home Management Treatment Education Patient Education Home Exercise Program Other Education updated HEP HO PT-OP-R Modalities Start: 07/15/22 16:45 Freq: Status: Active Protocol: Document 12/31/22 10:35 SP (Rec: 12/31/22 11:35 SP [id number]) Hot Pack/Cold Pack Treatment Heat Location supine LS, TS (layed on) Patient Position Hooklying Treatment Duration (minutes) 4 Patient Tolerance Fair Comments pt requested, mid back little sore after much stand activities, decreased tolerance, due to required increase towel layering and pad rolled up under mid back. Pt stated back felt more relaxed post. PT-OP-T Assessment and Plan Start: 07/15/22 16:45 Freq: Status: Active Protocol: Document 01/06/23 14:30 [facility]AK (Rec: 01/06/23 15:19 SAK [id number]) Physical Therapy Assessment Goals activity tolerance Impairment Oswestry disability index score 44% Short Term Goal (STG) Decrease Oswestry score to no greater than 30% as measure of improved activity tolerance and function 08/21/22: good goal progress 11/05/22: goal met STG Duration goal met Intermediate Goal (LTG) Decrease Oswestry score to no greater than 20% as measur of improved activity tolerance and function in her day to day life. 11/05/22: good goal progress, dec to 25% LTG Duration 02/21/23 weakness Impairment trunk and core muscle weakness Impairment weakness throughout trunk musculature Short Term Goal (STG) patient to be instructed in HEP for purposes of trunk and core strengthening 08/15/22: ongoing 11/27/22: cues for assurance of set up and proper form for confidence in [place]. See HOs. STG Duration goal met; ongoing progression 11/27/22 Quality Control Analyst Goal (LTG) Patient will be independent and compliant with HEP and demonstrate improved muscle strength throughout trunk and core 10/23/22; good progress toward goals 11/05/22: patient compliant with HEP, continues to require cues for improved technique and safety. LTG Duration 02/21/23 Two Impairment pain thoracolumbar Impairment Pain as high as 6/10 limiting ability to stand, walk, and do usual activities Short Term Goal (STG) Decrease pain to no greater than 4/10 with all usual activities 08/15/22: good goal progress STG Duration goal met Intermediate Goal (LTG) Decrease pain to no greater than 2/10 with patient able to resume more physical activities without difficulty 10/23/22:still pain across shoulder blades at 4/10 11/05/22: pain generally 3-4/10 12/31/22: progressing: states medium pain mid/low back , but other times more pain like sitting at desk >30 min, sitting in chair about 1 hr w/ pillow behind back. LTG Duration 02/21/23 1 Impairment postural dysfunction Impairment excess thoracic kyphosis and lumbar lordosis Short Term Goal (STG) Patient to receive postural education and therapeutic exercises for postural correction 08/21/22: good goal progress STG Duration goal met; continued progression Quality Control Analyst Goal (LTG) Patient to demonstrate improved postural awareness statically and dynamically with functional movement and activities 08/21/22: goal progress 10/23/22: good goal progress with less cues required 11/05/22: min cues in sitting, more frequent in standing due to posterior positioning of thorax tendency\ 12/31/22: progressing: tries to e conscious of posture sitting with pillow behind back, and walking but is still very challenging keeping feet from crossing and cued slow pacing. LTG Duration 02/21/23 Assessment Summary Assessment Progressed HEP with 2 additional exercises today. Patient highly compliant with HEP. Due to age and multiple medical and orthopedic issues progress has been slow and steady. Discussed patient continueing with her HEP and returning in 3-4 weeks for 1-2 visits to assess progress and update/modify HEP as indicated. Anticipate we will discharge at that time pending further PT needs. Physical Therapy Plan Frequency and Duration Frequency of Treatment 2 visits Duration of treatment (weeks) 6 Plan of Care Start Date 01/06/23 Plan of Care End Date 02/21/23 Therapeutic Interventions Therapeutic Interventions Manual Therapy,Patient/ Caregiver Education,Self-Care/ Home Management,Soft Tissue Mobilization,Therapeutic Activities,Therapeutic Exercises Modalities Electric Stimulation,Hot Packs ,Traction- Mechanical, Ultrasound Next Visit Focus/Plan Next Note Type Treatment Note Next Visit Plan 2 further PT appointments in 3 -4 weeks to update HEP, anticipate discharge from PT at that time.
--- NOTE | 2023-01-06 16:00 | PT.OTN ---
Current Diagnoses Spinal stenosis, cervical region (01/06/23) Low back pain, unspecified (01/06/23) Pain in thoracic spine (01/06/23) Abnormal posture (01/06/23) Weakness (01/06/23) Physical Therapy Treatment Note PT-OP-A Visit Information Start: 07/15/22 16:45 Freq: Status: Active Protocol: Document 01/06/23 14:30 SAK (Rec: 01/06/23 15:19 SAK [id number]) Out-Patient Physical Therapy Visit Information Visit Information Visit Type Re-Evaluation Visit Start Time 14:31 Visit Stop Time 15:15 Total Visit Minutes 44 Visit Number 28 Evaluation Information Evaluation Date 07/16/22 Precautions Precautions PMH: neck pain, left RC repair s/p fall, back pain, hip pain , balance dysfunction PT-OP-B Current Condition Start: 07/15/22 16:45 Freq: Status: Active Protocol: Document 07/18/22 12:55 SAK (Rec: 07/18/22 13:46 SAK [id number]) Current Condition History of Current Condition Onset Date 2-3 yrs ago Current Complaints mid back pain History of Current Condition gradual onset of pain mid back . No treatment for it; no exercises, no heat or ice. Takes Ibuprofen and Acetaminophen. Sleeps on side or back. Has just resumed doing exercises for shoulder and low back. Sits and lays down a lot. CAn't walk more than a few blocks due to hip and spinal pain. States middle glut doesn't fire, PT some helpful but didn't resolve issue, but pain is mostly throughout spine. Prior Treatments and Tests prior PT for RC, hip, gluts x-rays show excess kyphosis, and lots of arthritis per patient report, in Dr. Flanagan's office. Treatment Goals Patient/Caregiver Goals IMprove her posture, strength, and activity tolerance PT-OP-C Subjective Start: 07/15/22 16:45 Freq: Status: Active Protocol: Document 01/06/23 14:30 SAK (Rec: 01/06/23 15:19 SAK [id number]) OP-PT Subjective Patient Comments Patient Comments Doing some of the exercises at home. Needs to strengthen abdominals and glutes to walk better. PT-OP-D Balance Start: 07/15/22 16:45 Freq: Status: Active Protocol: Document 07/16/22 15:28 SAK (Rec: 07/17/22 10:40 [facility] [id number]) OP-PT Balance Assessment Sitting Balance Static Sitting Balance Ability Good Dynamic Sitting Balance Ability Good Standing Balance Static Standing Balance Ability Fair Dynamic Standing Balance Ability Poor Standing Balance Comments encouraged patient to use cane or trekking poles due to her expressed fear of falling, difficulty with balance Garza Fall Scale Copyright Permission PT-OP-G Mobility & Gait Start: 07/15/22 16:45 Freq: Status: Active Protocol: Document 07/16/22 15:28 [facility] (Rec: 07/17/22 10:40 [facility] [id number]) OP Mobility Evaluation Bed Mobility Supine to and from Sit instrsucted in log roll for spinal protection, practice x 3 with improving performance with repeititoin OP Gait Assessment Gait Deviations General Gait Pattern Decreased Stride Length, Decreased Feet Clearance PT-OP-H Neuro Start: 07/15/22 16:45 Freq: Status: Active Protocol: Document 07/16/22 15:28 [facility] (Rec: 07/17/22 14:20 [facility] [id number]) Sensation Evaluation Gross Sensation Gross Sensation WNL PT-OP-J Posture/Palpation/Skin Start: 07/15/22 16:45 Freq: Status: Active Protocol: Document 07/16/22 15:28 [facility] (Rec: 07/17/22 14:20 [facility] [id number]) Posture Evaluation Position Standing Head/C-Spine Posture Forward Head T-Spine Posture Increased Kyphosis L-Spine Posture Increased Lordosis Shoulder Posture (L) Rounded,(R) Rounded Scapula Posture (L) Protracted,(R) Protracted Arm Posture (L) Internally Rotated,(R) Internally Rotated Palpation Assessment Location thoracolumbar paraspinals Palpation Location zachery Palpation Findings Soft Tissue Tightness, Tenderness PT-OP-K Range of Motion Start: 07/15/22 16:45 Freq: Status: Active Protocol: Document 07/16/22 15:28 [facility] (Rec: 07/17/22 14:20 [facility] [id number]) Lumbar Spine Range of Motion Lumbar Spine Active ROM Limitations Soft Tissue Tightness,Pain Comments moderately decreased all motions PT-OP-M Strength Start: 07/15/22 16:45 Freq: Status: Active Protocol: Document 07/16/22 15:28 [facility] (Rec: 07/17/22 14:20 [facility] [id number]) Trunk Strength Trunk Manual Muscle Testing Core Stabilization poor Comments Unable to do formal MMT due to pain Hip Strength Hip Manual Muscle Testing zachery Flexion (L2) 3+ Fair+ Extension (S1) 3+ Fair+ Abduction 3+ Fair+ Adduction 3+ Fair+ External Rotation 3+ Fair+ Internal Rotation 3+ Fair+ Comments limited by pain PT-OP-Q Treatments Start: 07/15/22 16:45 Freq: Status: Active Protocol: Document 01/06/23 14:30 SAK (Rec: 01/06/23 15:19 SAK [id number]) Gym Equipment Shuttle Recovery B squat Resistance 62 Shuttle Recovery Platform Unstable Reps/Time 12x2 SL squat Details good effort, cued knee alignment glut/quad facilitation Resistance 37# (new band) Shuttle Recovery Platform Stable Reps/Time 2x10 B alternating Shuttle Balance red chains Details WBOS, EO/EC, bal and wt shift f/b, HTs, Head nods Reps/Duration 10 min total Comments balloon volleyball w/ PT Aide 1 CELLULAR EQUIPMENT REPAIRER WBOS a/p, m/l cued chest lift posturing, scap complex/ core engagement then wt shift instructed. CG- 10% A Therapeutic Exercises Supine Exercises single leg bridge Reps/Minutes 5x Comments cues for activating glutes, lift only if able without pelvis tipping Prone Exercises cat.cow Reps/Minutes 5x Comments vc pelvic A/P tilt full range can Quadruped Prone Exercise Name Leg then UEs today Side bilateral Reps/Minutes 5x Comments good level pelvis/scap and CS chin tuck- nice effort Sidelying Exercises Hip abduction Sidelying Exercise Name modified clam full leg lift Resistance R >L knee slight bent Equipment Used (her HEP image prefers modify longer clamshell image lift) Reps/Minutes 10x2, 2 SH Comments cued slow con/eccentric movement- good form Standing Exercises hip ext Equipment Used L2 TB Reps/Minutes 10x step up Standing Exercise Name balance component w/ less UE support Resistance CELLULAR EQUIPMENT REPAIRER RUE> CGA Equipment Used 6 portable step + blue foam Reps/Minutes 10x reps ea Comments improved glut/ hip abd fac with cues flat foot soft/quiet step. Self-Care/Home Management Treatment Education Patient Education Home Exercise Program Other Education updated HEP HO PT-OP-R Modalities Start: 07/15/22 16:45 Freq: Status: Active Protocol: Document 12/31/22 10:35 SP (Rec: 12/31/22 11:35 SP [id number]) Hot Pack/Cold Pack Treatment Heat Location supine LS, TS (layed on) Patient Position Hooklying Treatment Duration (minutes) 4 Patient Tolerance Fair Comments pt requested, mid back little sore after much stand activities, decreased tolerance, due to required increase towel layering and pad rolled up under mid back. Pt stated back felt more relaxed post. PT-OP-T Assessment and Plan Start: 07/15/22 16:45 Freq: Status: Active Protocol: Document 01/06/23 14:30 [facility] (Rec: 01/06/23 15:19 SAK [id number]) Physical Therapy Assessment Goals activity tolerance Impairment Oswestry disability index score 44% Short Term Goal (STG) Decrease Oswestry score to no greater than 30% as measure of improved activity tolerance and function 08/21/22: good goal progress 11/05/22: goal met STG Duration goal met Correction Goal (LTG) Decrease Oswestry score to no greater than 20% as measur of improved activity tolerance and function in her day to day life. 11/05/22: good goal progress, dec to 25% LTG Duration 02/21/23 weakness Impairment trunk and core muscle weakness Impairment weakness throughout trunk musculature Short Term Goal (STG) patient to be instructed in HEP for purposes of trunk and core strengthening 08/15/22: ongoing 11/27/22: cues for assurance of set up and proper form for confidence in [place]. See HOs. STG Duration goal met; ongoing progression 11/27/22 Bridal Consultant Goal (LTG) Patient will be independent and compliant with HEP and demonstrate improved muscle strength throughout trunk and core 10/23/22; good progress toward goals 11/05/22: patient compliant with HEP, continues to require cues for improved technique and safety. LTG Duration 02/21/23 Two Impairment pain thoracolumbar Impairment Pain as high as 6/10 limiting ability to stand, walk, and do usual activities Short Term Goal (STG) Decrease pain to no greater than 4/10 with all usual activities 08/15/22: good goal progress STG Duration goal met Bridal Consultant Goal (LTG) Decrease pain to no greater than 2/10 with patient able to resume more physical activities without difficulty 10/23/22:still pain across shoulder blades at 4/10 11/05/22: pain generally 3-4/10 /7/23: progressing: states medium pain mid/low back , but other times more pain like sitting at desk >30 min, sitting in chair about 1 hr w/ pillow behind back. LTG Duration 02/21/23 1 Impairment postural dysfunction Impairment excess thoracic kyphosis and lumbar lordosis Short Term Goal (STG) Patient to receive postural education and therapeutic exercises for postural correction 08/21/22: good goal progress STG Duration goal met; continued progression Correction Goal (LTG) Patient to demonstrate improved postural awareness statically and dynamically with functional movement and activities 08/21/22: goal progress 10/23/22: good goal progress with less cues required 11/05/22: min cues in sitting, more frequent in standing due to posterior positioning of thorax tendency\ 12/31/22: progressing: tries to e conscious of posture sitting with pillow behind back, and walking but is still very challenging keeping feet from crossing and cued slow pacing. LTG Duration 02/21/23 Assessment Summary Assessment Progressed HEP with 2 additional exercises today. Patient highly compliant with HEP. Due to age and multiple medical and orthopedic issues progress has been slow and steady. Discussed patient continueing with her HEP and returning in 3-4 weeks for 1-2 visits to assess progress and update/modify HEP as indicated. Anticipate we will discharge at that time pending further PT needs. Physical Therapy Plan Frequency and Duration Frequency of Treatment 2 visits Duration of treatment (weeks) 6 Plan of Care Start Date 01/06/23 Plan of Care End Date 02/21/23 Therapeutic Interventions Therapeutic Interventions Manual Therapy,Patient/ Caregiver Education,Self-Care/ Home Management,Soft Tissue Mobilization,Therapeutic Activities,Therapeutic Exercises Modalities Electric Stimulation,Hot Packs ,Traction- Mechanical, Ultrasound Next Visit Focus/Plan Next Note Type Treatment Note Next Visit Plan 2 further PT appointments in 3 -4 weeks to update HEP, anticipate discharge from PT at that time.
--- NOTE | 2023-01-06 16:00 | PT.OPPOC ---
Physical, Occupational & Speech Therapy At [facility] Current Diagnoses Spinal stenosis, cervical region (01/06/23) Low back pain, unspecified (01/06/23) Pain in thoracic spine (01/06/23) Abnormal posture (01/06/23) Weakness (01/06/23) Visit Care Team Role Provider Type Joshua Chin MD Family Provider Physician Primary Care Provider Specialty: Internal Medicine Address: [address] [place] [address], [facility] [address], [place], [address] Email: [email or web address] Mitchell MD Attending Provider Physician Referring Provider Specialty: Orthopedics Orthopedic Surgery Address: [address] [place] [address], [id number] Email: [email or web address] Plan Of Care PT-OP-T Assessment and Plan Start: 07/15/22 16:45 Freq: Status: Active Protocol: Document 01/06/23 14:30 SAK (Rec: 01/06/23 15:19 [facility] [id number]) Physical Therapy Assessment Goals activity tolerance Impairment Oswestry disability index score 44% Short Term Goal (STG) Decrease Oswestry score to no greater than 30% as measure of improved activity tolerance and function 08/21/22: good goal progress 11/05/22: goal met STG Duration goal met Salvage Determiner Goal (LTG) Decrease Oswestry score to no greater than 20% as measur of improved activity tolerance and function in her day to day life. 11/05/22: good goal progress, dec to 25% LTG Duration 02/21/23 weakness Impairment trunk and core muscle weakness Impairment weakness throughout trunk musculature Short Term Goal (STG) patient to be instructed in HEP for purposes of trunk and core strengthening 08/15/22: ongoing 11/27/22: cues for assurance of set up and proper form for confidence in [place]. See HOs. STG Duration goal met; ongoing progression 11/27/22 Prison Goal (LTG) Patient will be independent and compliant with HEP and demonstrate improved muscle strength throughout trunk and core 10/23/22; good progress toward goals 11/05/22: patient compliant with HEP, continues to require cues for improved technique and safety. LTG Duration 02/21/23 Two Impairment pain thoracolumbar Impairment Pain as high as 6/10 limiting ability to stand, walk, and do usual activities Short Term Goal (STG) Decrease pain to no greater than 4/10 with all usual activities 08/15/22: good goal progress STG Duration goal met Salvage Determiner Goal (LTG) Decrease pain to no greater than 2/10 with patient able to resume more physical activities without difficulty 10/23/22:still pain across shoulder blades at 4/10 11/05/22: pain generally 3-4/10 12/31/22: progressing: states medium pain mid/low back , but other times more pain like sitting at desk >30 min, sitting in chair about 1 hr w/ pillow behind back. LTG Duration 02/21/23 1 Impairment postural dysfunction Impairment excess thoracic kyphosis and lumbar lordosis Short Term Goal (STG) Patient to receive postural education and therapeutic exercises for postural correction 08/21/22: good goal progress STG Duration goal met; continued progression Salvage Determiner Goal (LTG) Patient to demonstrate improved postural awareness statically and dynamically with functional movement and activities 08/21/22: goal progress 10/23/22: good goal progress with less cues required 11/05/22: min cues in sitting, more frequent in standing due to posterior positioning of thorax tendency\ 12/31/22: progressing: tries to e conscious of posture sitting with pillow behind back, and walking but is still very challenging keeping feet from crossing and cued slow pacing. LTG Duration 02/21/23 Assessment Summary Assessment Progressed HEP with 2 additional exercises today. Patient highly compliant with HEP. Due to age and multiple medical and orthopedic issues progress has been slow and steady. Discussed patient continueing with her HEP and returning in 3-4 weeks for 1-2 visits to assess progress and update/modify HEP as indicated. Anticipate we will discharge at that time pending further PT needs. Physical Therapy Plan Frequency and Duration Frequency of Treatment 2 visits Duration of treatment (weeks) 6 Plan of Care Start Date 01/06/23 Plan of Care End Date 02/21/23 Therapeutic Interventions Therapeutic Interventions Manual Therapy,Patient/ Caregiver Education,Self-Care/ Home Management,Soft Tissue Mobilization,Therapeutic Activities,Therapeutic Exercises Modalities Electric Stimulation,Hot Packs ,Traction- Mechanical, Ultrasound Next Visit Focus/Plan Next Note Type Treatment Note Next Visit Plan 2 further PT appointments in 3 -4 weeks to update HEP, anticipate discharge from PT at that time. Plan of Care Dates Plan of Care Start Date 01/06/23 Plan of Care End Date 02/21/23 Electronically Signed by: Opal Tineo, PT 01/07/23 0823 If you are in agreement with this Plan of Care, please return a signed and dated copy. I have reviewed this Plan of Care and certify that the skilled therapy services above are required to meet the patient?s needs. Physician Signature Date Printed Name and Credentials Clinical Instructor Signature Printed Name and Credentials
--- NOTE | 2023-02-05 12:15 | PT.OTN ---
Current Diagnoses Spinal stenosis, cervical region (02/05/23) Low back pain, unspecified (02/05/23) Pain in thoracic spine (02/05/23) Abnormal posture (02/05/23) Weakness (02/05/23) Physical Therapy Treatment Note PT-OP-A Visit Information Start: 07/15/22 16:45 Freq: Status: Active Protocol: Document 02/05/23 11:17 SAK (Rec: 02/05/23 12:15 SAK [id number]) Out-Patient Physical Therapy Visit Information Visit Information Visit Type Treatment Note Visit Start Time 11:17 Visit Stop Time 11:59 Total Visit Minutes 42 Visit Number 29 Evaluation Information Evaluation Date 07/16/22 Precautions Precautions PMH: neck pain, left RC repair s/p fall, back pain, hip pain , balance dysfunction PT-OP-B Current Condition Start: 07/15/22 16:45 Freq: Status: Active Protocol: Document 07/18/22 12:55 SAK (Rec: 07/18/22 13:46 SAK [id number]) Current Condition History of Current Condition Onset Date 2-3 yrs ago Current Complaints mid back pain History of Current Condition gradual onset of pain mid back . No treatment for it; no exercises, no heat or ice. Takes Ibuprofen and Acetaminophen. Sleeps on side or back. Has just resumed doing exercises for shoulder and low back. Sits and lays down a lot. CAn't walk more than a few blocks due to hip and spinal pain. States middle glut doesn't fire, PT some helpful but didn't resolve issue, but pain is mostly throughout spine. Prior Treatments and Tests prior PT for RC, hip, gluts x-rays show excess kyphosis, and lots of arthritis per patient report, in Dr. Flanagan's office. Treatment Goals Patient/Caregiver Goals IMprove her posture, strength, and activity tolerance PT-OP-C Subjective Start: 07/15/22 16:45 Freq: Status: Active Protocol: Document 01/06/23 14:30 SAK (Rec: 01/06/23 15:19 SAK [id number]) OP-PT Subjective Patient Comments Patient Comments Doing some of the exercises at home. Needs to strengthen abdominals and glutes to walk better. PT-OP-D Balance Start: 07/15/22 16:45 Freq: Status: Active Protocol: Document 07/16/22 15:28 SAK (Rec: 07/17/22 10:40 [facility] [id number]) OP-PT Balance Assessment Sitting Balance Static Sitting Balance Ability Good Dynamic Sitting Balance Ability Good Standing Balance Static Standing Balance Ability Fair Dynamic Standing Balance Ability Poor Standing Balance Comments encouraged patient to use cane or trekking poles due to her expressed fear of falling, difficulty with balance Garza Fall Scale Copyright Permission PT-OP-G Mobility & Gait Start: 07/15/22 16:45 Freq: Status: Active Protocol: Document 07/16/22 15:28 [facility] (Rec: 07/17/22 10:40 [facility] [id number]) OP Mobility Evaluation Bed Mobility Supine to and from Sit instrsucted in log roll for spinal protection, practice x 3 with improving performance with repeititoin OP Gait Assessment Gait Deviations General Gait Pattern Decreased Stride Length, Decreased Feet Clearance PT-OP-H Neuro Start: 07/15/22 16:45 Freq: Status: Active Protocol: Document 07/16/22 15:28 [facility] (Rec: 07/17/22 14:20 [facility] [id number]) Sensation Evaluation Gross Sensation Gross Sensation WNL PT-OP-J Posture/Palpation/Skin Start: 07/15/22 16:45 Freq: Status: Active Protocol: Document 07/16/22 15:28 [facility] (Rec: 07/17/22 14:20 [facility] [id number]) Posture Evaluation Position Standing Head/C-Spine Posture Forward Head T-Spine Posture Increased Kyphosis L-Spine Posture Increased Lordosis Shoulder Posture (L) Rounded,(R) Rounded Scapula Posture (L) Protracted,(R) Protracted Arm Posture (L) Internally Rotated,(R) Internally Rotated Palpation Assessment Location thoracolumbar paraspinals Palpation Location zachery Palpation Findings Soft Tissue Tightness, Tenderness PT-OP-K Range of Motion Start: 07/15/22 16:45 Freq: Status: Active Protocol: Document 07/16/22 15:28 [facility] (Rec: 07/17/22 14:20 [facility] [id number]) Lumbar Spine Range of Motion Lumbar Spine Active ROM Limitations Soft Tissue Tightness,Pain Comments moderately decreased all motions PT-OP-M Strength Start: 07/15/22 16:45 Freq: Status: Active Protocol: Document 07/16/22 15:28 [facility] (Rec: 07/17/22 14:20 [facility] [id number]) Trunk Strength Trunk Manual Muscle Testing Core Stabilization poor Comments Unable to do formal MMT due to pain Hip Strength Hip Manual Muscle Testing zachery Flexion (L2) 3+ Fair+ Extension (S1) 3+ Fair+ Abduction 3+ Fair+ Adduction 3+ Fair+ External Rotation 3+ Fair+ Internal Rotation 3+ Fair+ Comments limited by pain PT-OP-Q Treatments Start: 07/15/22 16:45 Freq: Status: Active Protocol: Document 02/05/23 11:17 [facility] (Rec: 02/05/23 12:15 [facility] [id number]) Therapeutic Exercises Supine Exercises bridge Reps/Minutes 6x Comments cues for segmental movement SLR Reps/Minutes 6x Comments cues for core activation single leg bridge Reps/Minutes 5x Comments cues for activating glutes, lift only if able without pelvis tipping Prone Exercises cat.cow Reps/Minutes 5x Comments vc pelvic A/P tilt full range can Thread the Needle Side bilateral Reps/Minutes x5 ea Comments cued TS rotation painfree tolerant range Quadruped Prone Exercise Name LE lift, UE lift Side bilateral Reps/Minutes 5x Comments cues for neutral hips/pelvis Sidelying Exercises Hip abduction Sidelying Exercise Name cues for straight knee even on right; feel for muscle activation Resistance R >L knee slight bent Reps/Minutes 10x1, 2 SH Comments cued slow con/eccentric movement- good form Standing Exercises step up Standing Exercise Name balance component w/ less UE support Resistance FRONT DESK RUE> CGA Equipment Used 6 portable step Reps/Minutes 10x reps ea Comments improved glut/ hip abd fac with cues flat foot soft/quiet step. Rhomboid Doorway stretch Standing Exercise Name or hug stretch Reps/Minutes 2x30s Comments good feedback response QL Doorway stretch Standing Exercise Name L QL focus - added to HEP Side left Reps/Minutes 2 x 30 standing pec stretch Reps/Minutes 2x30 Comments gentle, scap setting first wall posture Standing Exercise Name with palms forward Reps/Minutes 5x5 row, shld ext Standing Exercise Name improved core, glut facilitation Resistance L2 ext, L3 rows Equipment Used floor x10 reps, on blue foam x10 reps Comments verbal cues posturing, equal between BLEs Self-Care/Home Management Treatment Education Patient Education Home Exercise Program Other Education added SLR and SAQ. Patient to bring all handouts to final visit in 1 week. PT-OP-R Modalities Start: 07/15/22 16:45 Freq: Status: Active Protocol: Document 12/31/22 10:35 SP (Rec: 12/31/22 11:35 SP [id number]) Hot Pack/Cold Pack Treatment Heat Location supine LS, TS (layed on) Patient Position Hooklying Treatment Duration (minutes) 4 Patient Tolerance Fair Comments pt requested, mid back little sore after much stand activities, decreased tolerance, due to required increase towel layering and pad rolled up under mid back. Pt stated back felt more relaxed post. PT-OP-T Assessment and Plan Start: 07/15/22 16:45 Freq: Status: Active Protocol: Document 02/05/23 11:17 SAK (Rec: 02/05/23 12:15 SAK [id number]) Physical Therapy Assessment Goals activity tolerance Impairment Oswestry disability index score 44% Short Term Goal (STG) Decrease Oswestry score to no greater than 30% as measure of improved activity tolerance and function 08/21/22: good goal progress 11/05/22: goal met STG Duration goal met Alf Goal (LTG) Decrease Oswestry score to no greater than 20% as measur of improved activity tolerance and function in her day to day life. 11/05/22: good goal progress, dec to 25% LTG Duration 02/21/23 weakness Impairment trunk and core muscle weakness Impairment weakness throughout trunk musculature Short Term Goal (STG) patient to be instructed in HEP for purposes of trunk and core strengthening 08/15/22: ongoing 11/27/22: cues for assurance of set up and proper form for confidence in [place]. See HOs. STG Duration goal met; ongoing progression 11/27/22 Spa Director/Finance Goal (LTG) Patient will be independent and compliant with HEP and demonstrate improved muscle strength throughout trunk and core 10/23/22; good progress toward goals 11/05/22: patient compliant with HEP, continues to require cues for improved technique and safety. LTG Duration 02/21/23 Two Impairment pain thoracolumbar Impairment Pain as high as 6/10 limiting ability to stand, walk, and do usual activities Short Term Goal (STG) Decrease pain to no greater than 4/10 with all usual activities 08/15/22: good goal progress STG Duration goal met Alf Goal (LTG) Decrease pain to no greater than 2/10 with patient able to resume more physical activities without difficulty 10/23/22:still pain across shoulder blades at 4/10 11/05/22: pain generally 3-4/10 12/31/22: progressing: states medium pain mid/low back , but other times more pain like sitting at desk >30 min, sitting in chair about 1 hr w/ pillow behind back. LTG Duration 02/21/23 1 Impairment postural dysfunction Impairment excess thoracic kyphosis and lumbar lordosis Short Term Goal (STG) Patient to receive postural education and therapeutic exercises for postural correction 08/21/22: good goal progress STG Duration goal met; continued progression Alf Goal (LTG) Patient to demonstrate improved postural awareness statically and dynamically with functional movement and activities 08/21/22: goal progress 10/23/22: good goal progress with less cues required 11/05/22: min cues in sitting, more frequent in standing due to posterior positioning of thorax tendency\ 12/31/22: progressing: tries to e conscious of posture sitting with pillow behind back, and walking but is still very challenging keeping feet from crossing and cued slow pacing. LTG Duration 02/21/23 Assessment Summary Assessment Good compliance to HEP, added SLR and SAQ. Good compliance with HEP. Cues for core activation, pelvic and hip alignment with ex. Will benefit from 1 further PT appointment to assure safety and independence with all HEP and self-management. Physical Therapy Plan Frequency and Duration Frequency of Treatment 2 visits Duration of treatment (weeks) 6 Plan of Care Start Date 01/06/23 Plan of Care End Date 02/21/23 Therapeutic Interventions Therapeutic Interventions Manual Therapy,Patient/ Caregiver Education,Self-Care/ Home Management,Soft Tissue Mobilization,Therapeutic Activities,Therapeutic Exercises Modalities Electric Stimulation,Hot Packs ,Traction- Mechanical, Ultrasound Next Visit Focus/Plan Next Note Type Discharge Summary Next Visit Plan Anticipate discharge after 1 further visit. Patient to bring all HEP handouts for final review and modifications PRN
--- NOTE | 2023-02-12 16:04 | PT.OTN ---
Current Diagnoses Spinal stenosis, cervical region (02/12/23) Low back pain, unspecified (02/12/23) Pain in thoracic spine (02/12/23) Abnormal posture (02/12/23) Weakness (02/12/23) Physical Therapy Treatment Note PT-OP-A Visit Information Start: 07/15/22 16:45 Freq: Status: Active Protocol: Document 02/12/23 15:54 SAK (Rec: 02/12/23 16:04 SAK [id number]) Out-Patient Physical Therapy Visit Information Visit Information Visit Type Treatment Note Visit Note and discharge summary Visit Start Time 15:15 Visit Stop Time 15:53 Total Visit Minutes 38 Evaluation Information Evaluation Date 07/16/22 Precautions Precautions PMH: neck pain, left RC repair s/p fall, back pain, hip pain , balance dysfunction PT-OP-B Current Condition Start: 07/15/22 16:45 Freq: Status: Active Protocol: Document 07/18/22 12:55 SAK (Rec: 07/18/22 13:46 SAK [id number]) Current Condition History of Current Condition Onset Date 2-3 yrs ago Current Complaints mid back pain History of Current Condition gradual onset of pain mid back . No treatment for it; no exercises, no heat or ice. Takes Ibuprofen and Acetaminophen. Sleeps on side or back. Has just resumed doing exercises for shoulder and low back. Sits and lays down a lot. CAn't walk more than a few blocks due to hip and spinal pain. States middle glut doesn't fire, PT some helpful but didn't resolve issue, but pain is mostly throughout spine. Prior Treatments and Tests prior PT for RC, hip, gluts x-rays show excess kyphosis, and lots of arthritis per patient report, in Dr. Flanagan's office. Treatment Goals Patient/Caregiver Goals IMprove her posture, strength, and activity tolerance PT-OP-C Subjective Start: 07/15/22 16:45 Freq: Status: Active Protocol: Document 02/12/23 15:54 SAK (Rec: 02/12/23 16:04 SAK [id number]) OP-PT Subjective Patient Comments Patient Comments Patient reports she did gardening for 4 hours, back hurts. Compliant to HEP and feels she is doing much better . PT goals achieved, will continue with HEP PT-OP-D Balance Start: 07/15/22 16:45 Freq: Status: Active Protocol: Document 07/16/22 15:28 [facility] (Rec: 07/17/22 10:40 [facility] [id number]) OP-PT Balance Assessment Sitting Balance Static Sitting Balance Ability Good Dynamic Sitting Balance Ability Good Standing Balance Static Standing Balance Ability Fair Dynamic Standing Balance Ability Poor Standing Balance Comments encouraged patient to use cane or trekking poles due to her expressed fear of falling, difficulty with balance Garza Fall Scale Copyright Permission PT-OP-G Mobility & Gait Start: 07/15/22 16:45 Freq: Status: Active Protocol: Document 07/16/22 15:28 [facility] (Rec: 07/17/22 10:40 [facility] [id number]) OP Mobility Evaluation Bed Mobility Supine to and from Sit instrsucted in log roll for spinal protection, practice x 3 with improving performance with repeititoin OP Gait Assessment Gait Deviations General Gait Pattern Decreased Stride Length, Decreased Feet Clearance PT-OP-H Neuro Start: 07/15/22 16:45 Freq: Status: Active Protocol: Document 07/16/22 15:28 [facility] (Rec: 07/17/22 14:20 [facility] [id number]) Sensation Evaluation Gross Sensation Gross Sensation WNL PT-OP-J Posture/Palpation/Skin Start: 07/15/22 16:45 Freq: Status: Active Protocol: Document 07/16/22 15:28 [facility] (Rec: 07/17/22 14:20 [facility] [id number]) Posture Evaluation Position Standing Head/C-Spine Posture Forward Head T-Spine Posture Increased Kyphosis L-Spine Posture Increased Lordosis Shoulder Posture (L) Rounded,(R) Rounded Scapula Posture (L) Protracted,(R) Protracted Arm Posture (L) Internally Rotated,(R) Internally Rotated Palpation Assessment Location thoracolumbar paraspinals Palpation Location zachery Palpation Findings Soft Tissue Tightness, Tenderness PT-OP-K Range of Motion Start: 07/15/22 16:45 Freq: Status: Active Protocol: Document 07/16/22 15:28 [facility] (Rec: 07/17/22 14:20 [facility] [id number]) Lumbar Spine Range of Motion Lumbar Spine Active ROM Limitations Soft Tissue Tightness,Pain Comments moderately decreased all motions PT-OP-M Strength Start: 07/15/22 16:45 Freq: Status: Active Protocol: Document 07/16/22 15:28 SAK (Rec: 07/17/22 14:20 SAK [id number]) Trunk Strength Trunk Manual Muscle Testing Core Stabilization poor Comments Unable to do formal MMT due to pain Hip Strength Hip Manual Muscle Testing zachery Flexion (L2) 3+ Fair+ Extension (S1) 3+ Fair+ Abduction 3+ Fair+ Adduction 3+ Fair+ External Rotation 3+ Fair+ Internal Rotation 3+ Fair+ Comments limited by pain PT-OP-Q Treatments Start: 07/15/22 16:45 Freq: Status: Active Protocol: Document 02/12/23 15:54 SAK (Rec: 02/12/23 16:04 SAK [id number]) Therapeutic Exercises Supine Exercises SAQ Reps/Minutes 5x SLR Reps/Minutes 6x Comments cues for core activation pec stretch Supine Exercise Name 45 deg, 80 deg abd w/ LTR Equipment Used towel roll under head only needed 2/1 Reps/Minutes 2x30 Comments good feedback stretch overhead stretch Supine Exercise Name FF OH Reps/Minutes x5 reps Comments 1 pillow under head support neutral c spine, TA throughout range goal post Supine Exercise Name tactile cue to keep shoulders down elbows straight Equipment Used FF (//)> goal post(Ws) Reps/Minutes 10x each Comments emphasis on the external rot at L shld triangle stretch Supine Exercise Name triangle press Reps/Minutes 10x10 Comments pillows no longer needed under elbows Prone Exercises supine hip abd Prone Exercise Name verbal review Sidelying Exercises open book Sidelying Exercise Name active first, then hold for stretch with deep breathing Reps/Minutes 5x Comments gentle, cue to tuck chin before resting head, stop for deep breath Standing Exercises hip ext Reps/Minutes 10x Neuro Re-Education Treatment Balance Activities SLS, tandem Equipment mirror Reps/Duration 3x ea Comments cues for keeping pelvis horizontal Self-Care/Home Management Treatment Education Other Education HEP review using patient handouts with written clarification provided on a few ex for improved understanding and performance PT-OP-R Modalities Start: 07/15/22 16:45 Freq: Status: Active Protocol: Document 12/31/22 10:35 SP (Rec: 12/31/22 11:35 SP [id number]) Hot Pack/Cold Pack Treatment Heat Location supine LS, TS (layed on) Patient Position Hooklying Treatment Duration (minutes) 4 Patient Tolerance Fair Comments pt requested, mid back little sore after much stand activities, decreased tolerance, due to required increase towel layering and pad rolled up under mid back. Pt stated back felt more relaxed post. PT-OP-T Assessment and Plan Start: 07/15/22 16:45 Freq: Status: Active Protocol: Document 02/12/23 15:54 [facility] (Rec: 02/12/23 16:04 [facility] [id number]) Physical Therapy Assessment Goals activity tolerance Impairment Oswestry disability index score 44% Short Term Goal (STG) Decrease Oswestry score to no greater than 30% as measure of improved activity tolerance and function 08/21/22: good goal progress 11/05/22: goal met STG Duration goal met [facility] Goal (LTG) Decrease Oswestry score to no greater than 20% as measur of improved activity tolerance and function in her day to day life. 11/05/22: good goal progress, dec to 25% 02/12/23: goal met LTG Duration goal met weakness Impairment trunk and core muscle weakness Impairment weakness throughout trunk musculature Short Term Goal (STG) patient to be instructed in HEP for purposes of trunk and core strengthening 08/15/22: ongoing 11/27/22: cues for assurance of set up and proper form for confidence in [place]. See HOs. STG Duration goal met; ongoing progression 11/27/22 Chemical Dependency Therapist Goal (LTG) Patient will be independent and compliant with HEP and demonstrate improved muscle strength throughout trunk and core 10/23/22; good progress toward goals 11/05/22: patient compliant with HEP, continues to require cues for improved technique and safety. 02/11/23: goal met LTG Duration goal met Two Impairment pain thoracolumbar Impairment Pain as high as 6/10 limiting ability to stand, walk, and do usual activities Short Term Goal (STG) Decrease pain to no greater than 4/10 with all usual activities 08/15/22: good goal progress STG Duration goal met Chemical Dependency Therapist Goal (LTG) Decrease pain to no greater than 2/10 with patient able to resume more physical activities without difficulty 10/23/22:still pain across shoulder blades at 4/10 11/05/22: pain generally 3-4/10 12/31/22: progressing: states medium pain mid/low back , but other times more pain like sitting at desk >30 min, sitting in chair about 1 hr w/ pillow behind back. 02/12/23: goal met LTG Duration goal met 1 Impairment postural dysfunction Impairment excess thoracic kyphosis and lumbar lordosis Short Term Goal (STG) Patient to receive postural education and therapeutic exercises for postural correction 08/21/22: good goal progress STG Duration goal met; continued progression Chemical Dependency Therapist Goal (LTG) Patient to demonstrate improved postural awareness statically and dynamically with functional movement and activities 08/21/22: goal progress 10/23/22: good goal progress with less cues required 11/05/22: min cues in sitting, more frequent in standing due to posterior positioning of thorax tendency\ 12/31/22: progressing: tries to e conscious of posture sitting with pillow behind back, and walking but is still very challenging keeping feet from crossing and cued slow pacing. 02/12/23: goal met LTG Duration goal met Progress Towards Goals Progress Towards Goals Goals Met Assessment Summary Assessment PT goal met after final review and progression of HEP, clarifications today. Patient being discharged from PT today. Physical Therapy Plan Discharge Physical Therapy Discharge Reasons Goals Met
== END 2023-02-13 14:23 | disposition home or self-care (01) ==
LOC: PHYS 15:15
PROVIDERS: Family Provider Internal Medicine; PCP Internal Medicine; Referring Provider Orthopaedic Surgery Orthopaedic Surgery of the Spine; Visit Provider Orthopaedic Surgery Orthopaedic Surgery of the Spine
DX: M54.6 Pain in thoracic spine (principal); R29.3 Abnormal posture; R53.1 Weakness; M48.02 Spinal stenosis, cervical region; M54.50 Low back pain, unspecified
CPT/HCPCS: 97010; 97110; 97112; 97116; 97162; 97530; 97535

== ENCOUNTER → 2023-04-16 15:48 | Outpatient (CLI) | payer MEDICARE, OTHER, SELFPAY ==
--- NOTE | 2023-04-16 15:54 | DI.MRI.S_ITS ---
PROCEDURE: MR SHOULDER LT WO CON INDICATIONS: LEFT SHOULDER PAIN TECHNIQUE: Noncontrast oblique coronal T2 fast spin echo with fat saturation, oblique sagittal T1 spin echo and T2 fast spin echo with fat saturation, axial T1 spin echo and T2 fast spin echo with fat saturation through the shoulder. COMPARISON: [facility], MR, MR SHOULDER LT WO CON, 10/22/2019, 8:13. FINDINGS: Image quality: Degraded by motion artifact. Rotator cuff: There is full-thickness tearing of the entire supraspinatus and infraspinatus tendons with medial retraction and atrophy of the supraspinatus and infraspinatus, which has progressed compared to the prior examination. Subscapularis and teres minor tendons are intact. Bones and bursae: No bone marrow contusions or fractures. Mild acromioclavicular joint degeneration. The acromion demonstrates conventional anatomy, without an os acromiale. No pathologic subacromial-subdeltoid or subcoracoid bursal fluid is present. Capsule and soft tissues: Diffuse degenerative fraying of the glenoid labrum. Moderate glenohumeral joint effusion. The long head of the biceps tendon demonstrates normal location and morphology. The rotator interval appears normal, without fibrosis. The coracohumeral ligament is normal in thickness. IMPRESSION: 1. 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 2. Acromioclavicular joint osteoarthritis. 3. Glenoid labral tearing. Dictated by: Wes Trejo M.D. on 04/17/2023 at 9:03 Approved by: Wes Trejo M.D. on 04/17/2023 at 9:06
== END ==
PROVIDERS: Family Provider Internal Medicine; PCP Internal Medicine; Referring Provider Orthopaedic Surgery; Visit Provider Orthopaedic Surgery
DX: M75.122 Complete rotator cuff tear or rupture of left shoulder, not specified as traumatic (principal); S43.492A Other sprain of left shoulder joint, initial encounter; M19.012 Primary osteoarthritis, left shoulder
CPT/HCPCS: 73221

== ENCOUNTER → 2023-05-12 11:17 | Outpatient (CLI) | payer MEDICARE, OTHER, SELFPAY ==
--- NOTE | 2023-05-12 11:22 | DI.RAD.S_ITS ---
PROCEDURE: XR CHEST 2V INDICATIONS: dysphagia TECHNIQUE: 2 views of the chest were acquired. COMPARISON: [facility], CR, XR CHEST 2V, 04/12/2021, 10:08. FINDINGS: Surgical changes and devices: None. Lungs and pleura: Lungs are clear. No pleural effusions or pneumothorax. Mediastinum: Mediastinal contours are normal. Heart size is normal. Bones and chest wall: No suspicious bony abnormalities. Moderate kyphosis is seen. Soft tissues appear unremarkable. IMPRESSION: No acute cardiopulmonary pathology. Dictated by: Joe Colon M.D. on 05/12/2023 at 12:26 Approved by: Joe Colon M.D. on 05/12/2023 at 12:35
[2023-05-12 12:21] LABS: Hematocrit 41.4 % (36-46); Hemoglobin 14.1 g/dL (12.0-16.0); Mean Corpuscular HGB Conc 34.1 % (30-36); Mean Corpuscular Hemoglobin 30.5 PG (26-34); Mean Corpuscular Volume 89.3 fL (80-100); Platelet Count 217 X10^3/uL (150-400); Red Blood Cell Count 4.63 X10^6/uL (4.0-5.2); Red Cell Distribution Width 13.1 % (11.6-14.8); White Blood Cell Count 7.4 X10^3/uL (4.5-11.0)
[2023-05-12 12:38] LABS: Alanine Aminotransferase 13 IU/L (<35); Albumin 4.2 g/dL (3.5-5.0); Albumin Globulin Ratio 1.8 (1.0-2.8); Alkaline Phosphatase 64 U/L (38-126); Aspartate Aminotransferase 23 IU/L (14-36); BUN Creatinine Ratio 19.8 (6-22); Bilirubin Total 0.7 mg/dL (0.2-1.3); Blood Urea Nitrogen 18 mg/dL (7-17); Calcium 9.7 mg/dL (8.4-10.2); Carbon Dioxide 26 mmol/L (22-32); Chloride 98 mmol/L (98-107); Estimated Glomerular Filt Rate > 60 mL/min (>60); Globulin 2.4 g/dL (1.7-4.1); Glucose 100 mg/dL (80-110); Potassium 4.5 mmol/L (3.4-5.1); Sodium 132 mmol/L (137-145); Total Protein 6.6 g/dL (6.3-8.2)
[2023-05-12 12:39] LABS: HEMOLYSIS 52 (0-50)
[2023-05-12 13:05] LABS: TSH w/ Reflex to FT4 1.51 uIU/mL (0.47-4.68)
== END ==
LOC: LAB 11:19 → RAD 11:21
PROVIDERS: Family Provider Internal Medicine; PCP Internal Medicine; Referring Provider Internal Medicine; Visit Provider Internal Medicine
DX: K21.9 Gastro-esophageal reflux disease without esophagitis (principal); R13.10 Dysphagia, unspecified; R63.4 Abnormal weight loss
CPT/HCPCS: 36415; 71046; 80053; 84443; 85027

== ENCOUNTER → 2023-05-15 13:35 | Outpatient (CLI) | payer MEDICARE, OTHER, SELFPAY ==
--- NOTE | 2023-05-15 13:38 | DI.RAD.S_ITS ---
PROCEDURE: FL UPPER GI SERIES INDICATIONS: dysphagia COMPARISON: [facility], CR, XR FOOT 3 VIEWS WEIGHT BEARING BILATERAL, 05/15/2023, 8:08. FINDINGS: KUB: Preprocedural business law teacher film demonstrates a normal bowel gas pattern. No suspicious abdominal calcifications. Visualized solid organ contours appear normal. Bony structures appear unremarkable. Levoscoliosis. There is an old healed right 12th rib fracture. There is a nerve stimulator in sacrum. Esophagus: The distal esophagus is narrow, suggesting a focal stricture. There is moderate to severe esophageal peristalsis. No extrinsic mass effects, or diverticula. No hiatal hernia or elicited gastroesophageal reflux was elicited during examination. There is normal transit of a calibrated barium tablet through the esophagus. Stomach: The stomach is normally distensible, with normal rugal fold thickness. No mucosal masses or ulcers. Pylorus and duodenal bulb appear normal in morphology. Duodenal folds are normal in thickness as well. IMPRESSION: 1. Suboptimal examination. The patient was unable to tolerate drinking in prone position. That part of the examination was, therefore, not performed. 2. The distal esophagus appears narrow. There is, however, no obstruction of barium suspension or the calibrated barium pill. Recommend EGD for further evaluation. 3. Moderate to severe esophageal dysmotility. Dictated by: Montez Rangel M.D. on 05/15/2023 at 16:02 Approved by: Montez Rangel M.D. on 05/15/2023 at 16:08
== END ==
PROVIDERS: Family Provider Internal Medicine; PCP Internal Medicine; Referring Provider Internal Medicine; Visit Provider Internal Medicine
DX: R13.10 Dysphagia, unspecified (principal); K21.9 Gastro-esophageal reflux disease without esophagitis; K22.4 Dyskinesia of esophagus
CPT/HCPCS: 74240

== ENCOUNTER 2023-07-01 08:53 | Day surgery (SDC) | payer MEDICARE, OTHER, SELFPAY ==
--- NOTE | 2023-07-01 | PATH_ITS ---
[facility] Accession Number: [id number] No. of containers..02 Tissue . 01 Material submitted: . PART A: esophagus, E-G Junction - GE JUNCTION BIOPSY PART B: esophagus - ESOPHAGUS BIOPSY . 01 Diagnosis: A. Gastroesophageal Junction, Biopsy: Squamocolumnar junctional mucosa with mild chronic inflammation. No goblet cell metaplasia identified on H/E slide. No dysplasia or malignancy. . B. Esophagus, Biopsy: Squamous epithelium with no diagnostic abnormality. Intraepithelial eosinophils are not increased. Negative for dysplasia and malignancy. MRV 07/08/2023 1804 Local . 01 Electronically signed: . Sarah Sierra MD, Pathologist NPI- [id number] . 01 Gross description: . Part A: GE JUNCTION BIOPSY: Received in formalin is multiple fragment(s) of calderon, soft tissue measuring 0.3 x 0.3 x 0.1 cm in aggregate submitted entirely in 1 cassette(s) Part B: ESOPHAGUS BIOPSY: Received in formalin is multiple fragment(s) of calderon, soft tissue measuring 0.7 x 0.3 x 0.1 cm in aggregate submitted entirely in 1 cassette(s) /AAY 07/02/2023 0435 Local . 01 Pathologist provided ICD-10: K21.9 . 01 CPT . 302253, 815401 Specimen Comment: A courtesy copy of this report has been sent to [phone] Performed at: [facility] [address] [place] [address] [id number] MD Kavon Betancourt MD Phone: [phone]
[2023-07-01] MEDS: LACTATED RINGERS 1,000 ML 100 ML IV (09:14)
[2023-07-01 09:28] VITALS: BP 133/70; PULSE 71; RESP 16; TEMP 36.2; O2SAT 96; BMI 19.2
--- NOTE | 2023-07-01 09:44 | PM.HP.1 ---
History of Present Illness History of Present Illness Date Patient Seen: 07/01/23 Time Patient Seen: 09:44 Chief complaint: EGD w/poss bx Narrative: 77-year-old woman here for diagnostic esophagoduodenoscopy for a diagnosis of esophageal dysphagia. She continues to have esophageal dysphagia but not as severe as when she was seen 2 months ago. Otherwise no interval changes in health. [facility] Medical History Cancer Cataracts, bilateral (~2015) Chicken pox Chronic hyponatremia Chronic renal failure, stage 3 (moderate) Constipation Cyclothymia Depression Dysphagia Fecal incontinence (~2014) Fractures (~2004) Genital warts (~1984) Heart palpitations History of urinary incontinence (~2014) Incomplete left bundle branch block (LBBB) Lumbar spinal stenosis Measles Mixed urge and stress incontinence Odynophagia Osteoporosis, unspecified Overactive bladder Sciatica Urge incontinence Urinary frequency UTI (urinary tract infection) Viral cardiomyopathy Weight loss Surgical History Anesthesia H/O hernia repair History of vaginal hysterectomy (~1996) Melanoma (~1981) Family History Father Hypertension Heart disease Mother Cancer Diabetes mellitus Hyperlipidemia Sister Cervical cancer Grandfather No problems noted. Grandmother Hypertension Grandmother Hypertension Social History household members: spouse Smoking Status: Never smoker Meds Home Medications and Allergies Home Medications Medication Instructions Recorded Confirmed Type acetaminophen 500 mg tablet 500 mg PO Q4HP PRN Pain (Scale 06/24/17 07/01/23 History (Tylenol Extra Strength) Score 1-3) ##0 cholecalciferol (vitamin D3) 125 5,000 unit PO QDAY ##0 06/24/17 07/01/23 History mcg (5,000 unit) capsule metoprolol succinate 25 mg 12.5 mg PO QDAY ##0 06/24/17 07/01/23 History tablet,extended release 24 hr (Toprol XL) ibuprofen 200 mg capsule 200 mg PO Q4-6H PRN Pain (Scale 12/11/18 07/01/23 History Score 1-3) ketoconazole 2 % shampoo 1 applictn topical 2XW 12/11/18 07/01/23 History aripiprazole 5 mg tablet 5 mg PO DAILY #90 tabs 07/16/22 07/01/23 Rx lamotrigine 200 mg tablet 200 mg PO DAILY #90 tabs 07/16/22 07/01/23 Rx trazodone 100 mg tablet 150 mg PO BEDTIME insomnia #135 07/16/22 07/01/23 Rx tabs Disabled Parking #1 ea 11/22/22 05/30/23 Rx oxybutynin chloride 10 mg 10 mg PO DAILY #90 tabs 02/28/23 07/01/23 Rx tablet,extended release 24 hr calcium carbonate 600 mg calcium 600 mg PO BID 05/12/23 07/01/23 History (1,500 mg) tablet clobetasol 0.05 % shampoo 1 applic topical 2XW 05/12/23 07/01/23 History omeprazole 40 mg capsule,delayed 40 mg PO BID #180 caps 05/30/23 07/01/23 Rx release Allergies Allergy/AdvReac Type Severity Reaction Status Date / Time bacitracin Allergy Mild RASH Verified 07/01/23 09:08 [From Neosporin ([id number])] neomycin Allergy Mild RASH Verified 07/01/23 09:08 [From Neosporin ([id number])] polymyxin B Allergy Mild RASH Verified 07/01/23 09:08 [From Neosporin ([id number])] Sulfa (Sulfonamide Allergy Mild HIVES Verified 07/01/23 09:08 Antibiotics) Exam Vital Signs (past 8 hours): - 07/01/23 09:28 Temperature 97.1 F L Pulse Rate 71 Respiratory Rate 16 Blood Pressure 133/70 Pulse Oximetry 96 Oxygen Delivery Method Room Air Oxygen Delivery Method Room Air Narrative Exam Narrative: General adult woman alert oriented no acute distress Chest nonlabored respiration Abdomen soft nontender nondistended Assessment & Plan Assessment & Plan narrative: 77-year-old woman with esophageal dysphagia here for diagnostic EGD with possible dilation and biopsy. Overview of the operation was discussed. Risks including hemorrhage, infection, intestinal injury discussed. Questions have been answered she is in agreement with this plan.
--- NOTE | 2023-07-01 09:45 | PM.OP.EGD ---
Operative Date/Time/Diagnoses Date of procedure: 07/01/23 Time of procedure: 10:10 Pre-op diagnosis: Esophageal dysphagia Post-op diagnosis: other (Esophagitis) Procedure & Clinicians Study performed: Diagnostic esophagoduodenoscopy Same procedure as scheduled: Yes Indications: 77-year-old woman with esophageal dysphagia here for diagnostic EGD Surgeon: Tee Sheridan Procedure Notes Procedure in detail: The history and physical was performed/updated and the patient is ASA class is 2. The procedure was discussed in detail with the patient. Potential risks complications including infection, bleeding, missed diagnosis, perforation, need for surgery, and were explained. Their questions were answered and informed consent was obtained. Patient placed in left lateral decubitus position. Time out was performed. Procedural sedation was administered by Anesthesia. A bite block was placed. the scope was inserted into the mouth and advanced through the esophagus and into the stomach. There was no esophageal stricture. The stomach was without masses, ulcers or gastritis. The pylorus was intubated and the duodenum was normal to the 2nd portion. The scope was withdrawn into the esophagus the Z line was seen at 35 cm from the incisions. Stomach was desufflated and scope removed. The GE junction had mild inflammation biopsies were performed with forceps. Multiple biopsies of the esophagus were performed with forceps. The patient tolerated the procedure well and will be discharged when they meet criteria. Specimen(s): other (GE junction, esophagus) Impression: Esophagitis Post-procedure Plan for aftercare: Will notify with biopsies. Continue omeprazole as prescribed until that point Disposition: same day surgery
[2023-07-01 10:05] VITALS: BP 99/46; PULSE 66; RESP 12; TEMP 36.8; O2SAT 97
[2023-07-01 10:10] VITALS: BP 90/45; PULSE 63; RESP 15; TEMP 36.8; O2SAT 96
[2023-07-01 10:15] VITALS: BP 98/42; PULSE 58; RESP 12; O2SAT 97
[2023-07-01 10:20] VITALS: BP 106/48; PULSE 59; RESP 14; TEMP 36.7; O2SAT 99
[2023-07-01 10:26] VITALS: BP 120/51; PULSE 62; RESP 14; TEMP 36.7; O2SAT 99
== END 2023-07-01 10:54 | disposition home or self-care (01) ==
PROVIDERS: Family Provider Internal Medicine; PCP Internal Medicine; Referring Provider Surgery; Visit Provider Surgery
PROC: 0DJ08ZZ Inspection of Upper Intestinal Tract, Via Natural or Artificial Opening Endoscopic (ICD-10-PCS; CPT 43235; principal; 2023-07-01 10:00)
DX: R13.14 Dysphagia, pharyngoesophageal phase (principal); K20.90 Esophagitis, unspecified without bleeding; K29.50 Unspecified chronic gastritis without bleeding
CPT/HCPCS: 43239; J2704

== ENCOUNTER → 2023-07-25 09:34 | Outpatient (CLI) | payer MEDICARE, OTHER, SELFPAY ==
--- NOTE | 2023-07-25 09:37 | DI.RAD.S_ITS ---
PROCEDURE: XR ACUTE ABDOMEN SERIES INDICATIONS: diarrhea TECHNIQUE: One view chest and two views of the abdomen were acquired. COMPARISON: [facility], , ABDOMEN ACUTE SERIES, 11/16/2016, 7:05. FINDINGS: Surgical changes and devices: Stimulator is again seen projecting over left hemipelvis. Chest: Lungs are clear. Heart size is normal. No pleural effusions. No pneumoperitoneum. Abdomen: Bowel gas pattern is nonobstructive. Moderate fecal stasis throughout the colon is seen. No suspicious calcifications. Visualized solid organ contours appear normal. Bones: No suspicious bony lesions. IMPRESSION: Moderate stool burden. No gross free air. No acute cardiopulmonary pathology. Dictated by: Joe Colon M.D. on 07/25/2023 at 12:44 Approved by: Joe Colon M.D. on 07/25/2023 at 12:45
[2023-07-25 10:18] LABS: Add Manual Diff / Slide Review NO; Basophils Absolute Auto 0 /uL (0-100); Basophils Percent Auto 0.4 % (0-2); Eosinophils Absolute Auto 100 /uL (0-450); Eosinophils Percent Auto 0.9 % (2-4); Hematocrit 41.1 % (36-46); Hemoglobin 13.9 g/dL (12.0-16.0); Lymphocytes Absolute Auto 1300 /uL (1100-4500); Lymphocytes Percent Auto 18.1 % (25-40); Mean Corpuscular HGB Conc 33.9 % (30-36); Mean Corpuscular Hemoglobin 30.3 PG (26-34); Mean Corpuscular Volume 89.5 fL (80-100); Monocytes Absolute Auto 400 /uL (0-900); Neutrophils Absolute Auto 5200 /uL (1500-7000); Neutrophils Percent Auto 74.6 % (50-75); Platelet Count 229 X10^3/uL (150-400); Red Blood Cell Count 4.59 X10^6/uL (4.0-5.2); Red Cell Distribution Width 13.2 % (11.6-14.8)
[2023-07-25 10:59] LABS: Alanine Aminotransferase 15 IU/L (<35); Albumin 4.1 g/dL (3.5-5.0); Albumin Globulin Ratio 2.1 (1.0-2.8); Alkaline Phosphatase 69 U/L (38-126); Aspartate Aminotransferase 22 IU/L (14-36); BUN Creatinine Ratio 12.3 (6-22); Bilirubin Total 0.4 mg/dL (0.2-1.3); Blood Urea Nitrogen 10 mg/dL (7-17); Calcium 9.9 mg/dL (8.4-10.2); Carbon Dioxide 28 mmol/L (22-32); Chloride 98 mmol/L (98-107); Estimated Glomerular Filt Rate > 60 mL/min (>60); Glucose 109 mg/dL (80-110); HEMOLYSIS < 15 (0-50); Potassium 4.5 mmol/L (3.4-5.1); Sodium 131 mmol/L (137-145); Total Protein 6.1 g/dL (6.3-8.2)
== END ==
PROVIDERS: Family Provider Internal Medicine; PCP Internal Medicine; Referring Provider Internal Medicine; Visit Provider Internal Medicine
DX: R19.7 Diarrhea, unspecified (principal); R63.4 Abnormal weight loss
CPT/HCPCS: 74022; 80053; 84443; 85025

== ENCOUNTER → 2023-07-26 08:21 | Outpatient (CLI) | payer MEDICARE, OTHER, SELFPAY ==
[2023-07-26 09:39] LABS: Clostridium Difficile Tox PCR Negative for C. diff (Negative)
== END ==
PROVIDERS: Family Provider Internal Medicine; PCP Internal Medicine; Referring Provider Internal Medicine; Visit Provider Internal Medicine
DX: R63.4 Abnormal weight loss (principal)
CPT/HCPCS: 87493

== ENCOUNTER 2023-07-29 08:15 | Outpatient (RCR) | payer MEDICARE, OTHER, SELFPAY ==
--- NOTE | 2023-04-23 10:15 | PT.OIE ---
Current Diagnoses Other specific arthropathies, not elsewhere classified, left shoulder (04/23/23) Past Medical History (Last Updated 02/28/23 @ 16:04 by Joshua Chin MD) Cancer Cataracts, bilateral (~2015) Chicken pox Chronic hyponatremia Chronic renal failure, stage 3 (moderate) Constipation Cyclothymia Depression Fecal incontinence (~2014) Fractures (~2004) Genital warts (~1984) Heart palpitations History of urinary incontinence (~2014) Incomplete left bundle branch block (LBBB) Lumbar spinal stenosis Measles Mixed urge and stress incontinence Osteoporosis, unspecified Overactive bladder Sciatica Urge incontinence Urinary frequency UTI (urinary tract infection) Viral cardiomyopathy Past Surgical History (Last Reviewed 03/07/22 @ 08:15 by Juanita Valladares PA-C) Anesthesia H/O hernia repair History of vaginal hysterectomy (~1996) Melanoma (~1981) Visit Care Team Role Provider Type Joshua Chin MD Family Provider Physician Primary Care Provider Specialty: Internal Medicine Address: [address] [place] [address], [address], [address] Email: [email or web address] Hernández MD Attending Provider Physician Referring Provider Specialty: Orthopedics Orthopedic Surgery Address: [address] [place] [address], [id number] Email: [email or web address] Physical Therapy Initial Evaluation PT-OP-A Visit Information Start: 04/17/23 17:53 Freq: Status: Active Protocol: Document 04/23/23 08:20 [facility] (Rec: 04/23/23 09:04 [facility] [id number]) Out-Patient Physical Therapy Visit Information Visit Information Visit Type Initial Evaluation Visit Note 11/05 Visit Start Time 08:20 Visit Stop Time 09:03 Total Visit Minutes 43 Visit Number 1 Number of BUSINESS DEVELOPMENT RECRUITER Visits 0 PT-OP-B Current Condition Start: 04/17/23 17:53 Freq: Status: Active Protocol: Document 04/23/23 08:20 [facility] (Rec: 04/23/23 09:04 [facility] [id number]) Current Condition History of Current Condition Onset Date a couple years ago; worse after fall 1.5 month ago Current Complaints L shoulder pain History of Current Condition Pt had a fall in her garden and fell back on to her back and reached across body w/L arm to grab an umbrella. This was about a month and a half ago. It started to get really sore a couple days later. She took some ibuprofen. She has started seeing an ortho and follows up re: imagaing next week. Kavon likes to garden but can't raise her hand w/ anything in it. She cannot reach further than 90 into abd . She needs help washing her hair. She has been unable to do these things for a couple years, but it is now more painful since the fall to do these things. Even just sitting, she notes pain. Prior Treatments and Tests MRI: IMPRESSION: 1. 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 2. Acromioclavicular joint osteoarthritis. 3. Glenoid labral tearing. Treatment Goals Patient/Caregiver Goals get the arm where she can use it in all positions and get it strength PT-OP-C Subjective Start: 04/17/23 17:53 Freq: Status: Active Protocol: Document 04/23/23 08:20 [facility] (Rec: 04/23/23 09:04 [facility] [id number]) OP-PT Pain Assessment Location L shoulder Pain Location Details sup/ant shoulder and lat brachium Scale Used worst:7 Description Aching,Sharp Description- Other sharp w/activity Frequency Constant Pain Aggravating Factors ADL's,Activity,Sitting Other Pain Aggravating Factors overhead or reaching motions fwd/to sides Pain Alleviating Factors Medication Other Pain Alleviating Factors lay on back or seated w/ shoulder back& arm at side PT-OP-J Posture/Palpation/Skin Start: 04/17/23 17:53 Freq: Status: Active Protocol: Document 04/23/23 08:20 [facility] (Rec: 04/23/23 09:04 [facility] [id number]) Posture Evaluation Luiza Postural Classification System Luiza Postural Classifications Posterior/Anterior Elbow Flexion Test 0 Comments Posture Comments EFT done seated PT-OP-K Range of Motion Start: 04/17/23 17:53 Freq: Status: Active Protocol: Document 04/23/23 08:20 [facility] (Rec: 04/23/23 09:04 [facility] [id number]) Shoulder Goniometric Range of Motion Shoulder Left Passive Testing Position Supine Flexion 124 Abduction 70 External Rotation at 45 degrees 59 Abduction Internal Rotation 80 Right Active Testing Position Sitting Flexion 130 Extension 74 Abduction 161 External Rotation at 90 degrees 78 Abduction External Rotation at 0 degrees Abduction 76 Internal Rotation 76 Internal Rotation Behind Back (text) T7 Left Active Testing Position Sitting Flexion 98 Extension 59 Abduction 68 External Rotation at 0 degrees Abduction 28 Internal Rotation 57 Internal Rotation Behind Back (text) T8 Comments pain w/ROM PT-OP-M Strength Start: 04/17/23 17:53 Freq: Status: Active Protocol: Document 04/23/23 08:20 [facility] (Rec: 04/23/23 09:04 [facility] [id number]) Shoulder Strength Shoulder Manual Muscle Testing Right Flexion 4 Good Extension 3+ Fair+ Abduction (C5) 3 Fair External Rotation 4 Good Internal Rotation 3+ Fair+ Horizontal Adduction 3+ Fair+ Left Flexion 3 Fair Extension 3 Fair Abduction (C5) 2+ Poor+ External Rotation 3 Fair Internal Rotation 3+ Fair+ Horizontal Adduction 3 Fair Elbow/Forearm Strength Elbow and Forearm Manual Muscle Testing Left Flexion (C6) 4+ Good+ Extension (C7) 3 Fair Right Flexion (C6) 4+ Good+ Extension (C7) 4 Good PT-OP-Q Treatments Start: 04/17/23 17:53 Freq: Status: Active Protocol: Document 04/23/23 08:20 [facility] (Rec: 04/23/23 09:04 [facility] [id number]) Self-Care/Home Management Treatment Education Other Education 8 min: expectation for PT will be that she will likely be able to get only to the point she was at prior to the fall and taht d/t the long standing weakness and tearing, it is unlikely that she will fully return to LUE being strong. Encouraged to discuss options re:this w/ortho. PT-OP-T Assessment and Plan Start: 04/17/23 17:53 Freq: Status: Active Protocol: Document 04/23/23 08:20 [facility] (Rec: 04/23/23 09:04 [facility] [id number]) Physical Therapy Assessment Rehab Potential Rehabilitation Potential Fair Evaluation Complexity Number of Personal Factors/Comorbidities 3 or More Number of Body Systems Impaired 4 or More Clinical Presentation at Evaluation Evolving Impairments Impairments Activity Tolerance,Balance, Functional Activities, Functional Mobility,Gait,Pain, Posture,ROM,Soft Tissue Mobility,Strength Goals activity tolerance Sales Agent Financial Report Service Goal (LTG) Pt will report ability to use LUE more w/o inc of pain LTG Duration 07/02 weakness Short Term Goal (STG) Pt will be indep w/HEP STG Duration 05/27 Usp Goal (LTG) Pt will score at least 1 full MMT for all movements of L shoulder and at least 3/5 EFT LTG Duration 07/02 Two Impairment AROM Short Term Goal (STG) Pt will be able to raise UE to at least 107 and abd to at least 80 deg STG Duration 05/31 Usp Goal (LTG) Pt will be able to inc flex to at least 120 deg and abd to 90 w/o inc pain LTG Duration 07/02 1 Impairment 52.3 quick dash Short Term Goal (STG) Pt will improve Quick Dash score to no higher than 42 to show improved fucnctional ability. STG Duration 06/01 Sales Agent Financial Report Service Goal (LTG) Pt will improve Quick Dash score to no higher than 30 to show improved fucnctional ability. LTG Duration 07/02 Assessment Summary Assessment Pt presents w/L RC tear and labral tearing per MRI w/inc pain after a fall about 1.5 months ago. She has done extensive PT in the past d/t RC tear on L which she had much less pain after PT but still very limited AROM and strength w/ inability to do functional tasks. She has denied want for surgery in the past d/t pain was managable and L shoulder dec ability did not dec her function enough to feel like it warrented the want for surgery at the time. Pt was educated that expectation for PT will be that she will likely be able to get only to the point she was at prior to the fall and taht d/t the long standing weakness and tearing, it is unlikely that she will fully return to LUE being strong. Encouraged to discuss this w/ ortho. She is having more pain since this fall and is more limited in motiona nd LUE and would benefit from skilled PT to work on returning pt to prior function before the fall . Physical Therapy Plan Frequency and Duration Frequency of Treatment 2x/Week Duration of treatment (weeks) 10 Plan of Care Start Date 04/23/23 Plan of Care End Date 07/02/23 Therapeutic Interventions Therapeutic Interventions Balance Training,Gait Training ,Home Exercise Program,Joint Mobilizations,Manual Therapy, Neuromuscular Re-education, Patient/Caregiver Education, Self-Care/Home Management,Soft Tissue Mobilization,Taping, Therapeutic Activities, Therapeutic Exercises Modalities Cold Pack/Ice Massage,Electric Stimulation,Hot Packs, Infrared Therapy,Iontophoresis ,Ultrasound Next Visit Focus/Plan Next Note Type Treatment Note Next Visit Plan HEP: pulleys (flex, scaption, abd), table slides or wall slides can work towards different directions, B row if able (peach band), isometrics at wall(IR, ER, flex, abd), manual for dec pain and improve ROM/mechanics: inf glides, post glides, distraction
--- NOTE | 2023-04-23 10:15 | PT.OPPOC ---
Physical, Occupational & Speech Therapy At Current Diagnoses Other specific arthropathies, not elsewhere classified, left shoulder (04/23/23) Visit Care Team Role Provider Type Joshua Chin MD Family Provider Physician Primary Care Provider Specialty: Internal Medicine Address: [address] [place] [address], [address], [address] Email: [email or web address] Manuel Hernández MD Attending Provider Physician Referring Provider Specialty: Orthopedics Orthopedic Surgery Address: [address] [place] [address], [id number] Email: [email or web address] Plan Of Care PT-OP-T Assessment and Plan Start: 04/17/23 17:53 Freq: Status: Active Protocol: Document 04/23/23 08:20 [facility] (Rec: 04/23/23 09:04 [facility] [id number]) Physical Therapy Assessment Rehab Potential Rehabilitation Potential Fair Evaluation Complexity Number of Personal Factors/Comorbidities 3 or More Number of Body Systems Impaired 4 or More Clinical Presentation at Evaluation Evolving Impairments Impairments Activity Tolerance,Balance, Functional Activities, Functional Mobility,Gait,Pain, Posture,ROM,Soft Tissue Mobility,Strength Goals activity tolerance Casting Wheel Operator Goal (LTG) Pt will report ability to use LUE more w/o inc of pain LTG Duration 07/02 weakness Short Term Goal (STG) Pt will be indep w/HEP STG Duration 05/27 Residential Goal (LTG) Pt will score at least 1 full MMT for all movements of L shoulder and at least 3/5 EFT LTG Duration 07/02 Two Impairment AROM Short Term Goal (STG) Pt will be able to raise UE to at least 107 and abd to at least 80 deg STG Duration 05/31 Casting Wheel Operator Goal (LTG) Pt will be able to inc flex to at least 120 deg and abd to 90 w/o inc pain LTG Duration 07/02 1 Impairment 52.3 quick dash Short Term Goal (STG) Pt will improve Quick Dash score to no higher than 42 to show improved fucnctional ability. STG Duration 06/01 Residential Goal (LTG) Pt will improve Quick Dash score to no higher than 30 to show improved fucnctional ability. LTG Duration 07/02 Assessment Summary Assessment Pt presents w/L RC tear and labral tearing per MRI w/inc pain after a fall about 1.5 months ago. She has done extensive PT in the past d/t RC tear on L which she had much less pain after PT but still very limited AROM and strength w/ inability to do functional tasks. She has denied want for surgery in the past d/t pain was managable and L shoulder dec ability did not dec her function enough to feel like it warrented the want for surgery at the time. Pt was educated that expectation for PT will be that she will likely be able to get only to the point she was at prior to the fall and taht d/t the long standing weakness and tearing, it is unlikely that she will fully return to LUE being strong. Encouraged to discuss this w/ ortho. She is having more pain since this fall and is more limited in motiona nd LUE and would benefit from skilled PT to work on returning pt to prior function before the fall . Physical Therapy Plan Frequency and Duration Frequency of Treatment 2x/Week Duration of treatment (weeks) 10 Plan of Care Start Date 04/23/23 Plan of Care End Date 07/02/23 Therapeutic Interventions Therapeutic Interventions Balance Training,Gait Training ,Home Exercise Program,Joint Mobilizations,Manual Therapy, Neuromuscular Re-education, Patient/Caregiver Education, Self-Care/Home Management,Soft Tissue Mobilization,Taping, Therapeutic Activities, Therapeutic Exercises Modalities Cold Pack/Ice Massage,Electric Stimulation,Hot Packs, Infrared Therapy,Iontophoresis ,Ultrasound Next Visit Focus/Plan Next Note Type Treatment Note Next Visit Plan HEP: pulleys (flex, scaption, abd), table slides or wall slides can work towards different directions, B row if able (peach band), isometrics at wall(IR, ER, flex, abd), manual for dec pain and improve ROM/mechanics: inf glides, post glides, distraction Plan of Care Dates Plan of Care Start Date 04/23/23 Plan of Care End Date 07/02/23 Electronically Signed by: Tracey Cedeno, PT 04/23/23 8525 If you are in agreement with this Plan of Care, please return a signed and dated copy. I have reviewed this Plan of Care and certify that the skilled therapy services above are required to meet the patient?s needs. Physician Signature Date Printed Name and Credentials Clinical Instructor Signature Printed Name and Credentials
--- NOTE | 2023-05-07 10:12 | PT.OTN ---
Addendum entered and electronically signed by Tracey Cedeno, PT 05/07/23 13:18: PT direct supervision and direction to PT student. Original Note: Current Diagnoses Other specific arthropathies, not elsewhere classified, left shoulder (05/07/23) Physical Therapy Treatment Note PT-OP-A Visit Information Start: 04/17/23 17:53 Freq: Status: Active Protocol: Document 05/07/23 08:39 (Rec: 05/07/23 08:59 [id number]) Out-Patient Physical Therapy Visit Information Visit Information Visit Type Treatment Note Visit Note 12/06 Visit Start Time 07:33 Visit Stop Time 08:16 Total Visit Minutes 43 Visit Number 2 Number of ADVERTISING COLUMNIST Visits 0 PT-OP-B Current Condition Start: 04/17/23 17:53 Freq: Status: Active Protocol: Document 04/23/23 08:20 [facility] (Rec: 04/23/23 09:04 [facility] [id number]) Current Condition History of Current Condition Onset Date a couple years ago; worse after fall 1.5 month ago Current Complaints L shoulder pain History of Current Condition Pt had a fall in her garden and fell back on to her back and reached across body w/L arm to grab an umbrella. This was about a month and a half ago. It started to get really sore a couple days later. She took some ibuprofen. She has started seeing an ortho and follows up re: imagaing next week. h likes to garden but can't raise her hand w/ anything in it. She cannot reach further than 90 into abd . She needs help washing her hair. She has been unable to do these things for a couple years, but it is now more painful since the fall to do these things. Even just sitting, she notes pain. Prior Treatments and Tests MRI: IMPRESSION: 1. 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 2. Acromioclavicular joint osteoarthritis. 3. Glenoid labral tearing. Treatment Goals Patient/Caregiver Goals get the arm where she can use it in all positions and get it strength PT-OP-C Subjective Start: 04/17/23 17:53 Freq: Status: Active Protocol: Document 05/07/23 08:39 (Rec: 05/07/23 08:59 [id number]) OP-PT Subjective Patient Comments Patient Comments pt notes no new concerns. She has been enjoying her garden and has had people come to help her with the manual labor . PT-OP-J Posture/Palpation/Skin Start: 04/17/23 17:53 Freq: Status: Active Protocol: Document 04/23/23 08:20 [facility] (Rec: 04/23/23 09:04 [facility] [id number]) Posture Evaluation [facility] Postural Classification System [facility] Postural Classifications Posterior/Anterior Elbow Flexion Test 0 Comments Posture Comments EFT done seated PT-OP-K Range of Motion Start: 04/17/23 17:53 Freq: Status: Active Protocol: Document 04/23/23 08:20 [facility] (Rec: 04/23/23 09:04 [facility] [id number]) Shoulder Goniometric Range of Motion Shoulder Left Passive Testing Position Supine Flexion 124 Abduction 70 External Rotation at 45 degrees 59 Abduction Internal Rotation 80 Right Active Testing Position Sitting Flexion 130 Extension 74 Abduction 161 External Rotation at 90 degrees 78 Abduction External Rotation at 0 degrees Abduction 76 Internal Rotation 76 Internal Rotation Behind Back (text) T7 Left Active Testing Position Sitting Flexion 98 Extension 59 Abduction 68 External Rotation at 0 degrees Abduction 28 Internal Rotation 57 Internal Rotation Behind Back (text) T8 Comments pain w/ROM PT-OP-M Strength Start: 04/17/23 17:53 Freq: Status: Active Protocol: Document 04/23/23 08:20 [facility] (Rec: 04/23/23 09:04 [facility] [id number]) Shoulder Strength Shoulder Manual Muscle Testing Right Flexion 4 Good Extension 3+ Fair+ Abduction (C5) 3 Fair External Rotation 4 Good Internal Rotation 3+ Fair+ Horizontal Adduction 3+ Fair+ Left Flexion 3 Fair Extension 3 Fair Abduction (C5) 2+ Poor+ External Rotation 3 Fair Internal Rotation 3+ Fair+ Horizontal Adduction 3 Fair Elbow/Forearm Strength Elbow and Forearm Manual Muscle Testing Left Flexion (C6) 4+ Good+ Extension (C7) 3 Fair Right Flexion (C6) 4+ Good+ Extension (C7) 4 Good PT-OP-Q Treatments Start: 04/17/23 17:53 Freq: Status: Active Protocol: Document 05/07/23 08:39 (Rec: 05/07/23 08:59 [id number]) Therapeutic Exercises Sitting Exercises Table slides Side bilateral Equipment Used towel Reps/Minutes 10x Comments flexion, both hands on towel Standing Exercises isometrics Standing Exercise Name ER only Side bilateral Reps/Minutes 8x ea Comments ER w/ 3 second hold, towel under arm Wall slides Standing Exercise Name AAROM Side left Equipment Used towel Reps/Minutes 8x Comments RUE assists the LUE Rows Side bilateral Equipment Used peach band Reps/Minutes 8x Comments cues for posture Other Exercises Pulleys Side bilateral Equipment Used pulleys Reps/Minutes 10x ea Comments Flex, Scap, Abd Manual Therapy Treatment Soft Tissue Mobilization Post Body Location L UT Mobilization Type Sustained Pressure Intensity/Depth Moderate Body Position Sidelying Comments w/ shoulder shrug Pec Mobilization Type Myofascial Release,Sustained Pressure Intensity/Depth Moderate Body Position Supine Joint Mobilizations Scapular Direction elevation, medial, lateral, medial/lateral tilt, depression Grade II Body Position Sidelying Comments improve mobility post manual, ed scap retraction. GH Grade II Body Position Supine Comments Post, inf, distraction PT-OP-T Assessment and Plan Start: 04/17/23 17:53 Freq: Status: Active Protocol: Document 05/07/23 08:39 (Rec: 05/07/23 08:59 [id number]) Physical Therapy Assessment Goals activity tolerance Impairment Oswestry disability index score 44% Residential Goal (LTG) Pt will report ability to use LUE more w/o inc of pain LTG Duration 07/02 weakness Impairment weakness throughout trunk musculature Short Term Goal (STG) Pt will be indep w/HEP STG Duration 05/27 Market Development Director Goal (LTG) Pt will score at least 1 full MMT for all movements of L shoulder and at least 3/5 EFT LTG Duration 07/02 Two Impairment AROM Impairment Pain as high as 6/10 limiting ability to stand, walk, and do usual activities Short Term Goal (STG) Pt will be able to raise UE to at least 107 and abd to at least 80 deg STG Duration 05/31 Residential Goal (LTG) Pt will be able to inc flex to at least 120 deg and abd to 90 w/o inc pain LTG Duration 07/02 1 Impairment 52.3 quick dash Short Term Goal (STG) Pt will improve Quick Dash score to no higher than 42 to show improved fucnctional ability. STG Duration 06/01 Residential Goal (LTG) Pt will improve Quick Dash score to no higher than 30 to show improved fucnctional ability. LTG Duration 07/02 Assessment Summary Assessment Pt was able to go through movements well but was quick to fatigue. ABD during pulleys was the most bothersome for her. Iso metrics was difficult for her to maintain with 3 second hold. Following manual, she had increased scapular mobility. Physical Therapy Plan Frequency and Duration Frequency of Treatment 2x/Week Duration of treatment (weeks) 10 Plan of Care Start Date 04/23/23 Plan of Care End Date 07/02/23 Next Visit Focus/Plan Next Visit Plan Review HEP: pulleys (flex, scap, abd), wall slides w/ R assisting L, Rows (peach). Manual: inf glides, post glides, SC joint. Soft tissue trap and lat.
--- NOTE | 2023-05-09 12:01 | PT.OTN ---
Current Diagnoses Other specific arthropathies, not elsewhere classified, left shoulder (05/09/23) Physical Therapy Treatment Note PT-OP-A Visit Information Start: 04/17/23 17:53 Freq: Status: Active Protocol: Document 05/09/23 09:18 [facility] (Rec: 05/09/23 11:55 [facility] [id number]) Out-Patient Physical Therapy Visit Information Visit Information Visit Type Treatment Note Visit Note 01/03 Visit Start Time 09:19 Visit Stop Time 10:02 Total Visit Minutes 43 Visit Number 3 Number of DIGITAL CARTOGRAPHER Visits 1 PT-OP-B Current Condition Start: 04/17/23 17:53 Freq: Status: Active Protocol: Document 04/23/23 08:20 [facility] (Rec: 04/23/23 09:04 [facility] [id number]) Current Condition History of Current Condition Onset Date a couple years ago; worse after fall 1.5 month ago Current Complaints L shoulder pain History of Current Condition Pt had a fall in her garden and fell back on to her back and reached across body w/L arm to grab an umbrella. This was about a month and a half ago. It started to get really sore a couple days later. She took some ibuprofen. She has started seeing an ortho and follows up re: imagaing next week. Kavon likes to garden but can't raise her hand w/ anything in it. She cannot reach further than 90 into abd . She needs help washing her hair. She has been unable to do these things for a couple years, but it is now more painful since the fall to do these things. Even just sitting, she notes pain. Prior Treatments and Tests MRI: IMPRESSION: 1. 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 2. Acromioclavicular joint osteoarthritis. 3. Glenoid labral tearing. Treatment Goals Patient/Caregiver Goals get the arm where she can use it in all positions and get it strength PT-OP-C Subjective Start: 04/17/23 17:53 Freq: Status: Active Protocol: Document 05/09/23 09:18 [facility] (Rec: 05/09/23 11:55 [facility] [id number]) OP-PT Subjective Patient Comments Patient Comments Pt reports the cortisone shot helped a lot. She thought the manual therapy at last visit was not hard enough and requests PT instead of student . PT-OP-J Posture/Palpation/Skin Start: 04/17/23 17:53 Freq: Status: Active Protocol: Document 04/23/23 08:20 [facility] (Rec: 04/23/23 09:04 [facility] [id number]) Posture Evaluation [facility] Postural Classification System [facility] Postural Classifications Posterior/Anterior Elbow Flexion Test 0 Comments Posture Comments EFT done seated PT-OP-K Range of Motion Start: 04/17/23 17:53 Freq: Status: Active Protocol: Document 04/23/23 08:20 [facility] (Rec: 04/23/23 09:04 [facility] [id number]) Shoulder Goniometric Range of Motion Shoulder Left Passive Testing Position Supine Flexion 124 Abduction 70 External Rotation at 45 degrees 59 Abduction Internal Rotation 80 Right Active Testing Position Sitting Flexion 130 Extension 74 Abduction 161 External Rotation at 90 degrees 78 Abduction External Rotation at 0 degrees Abduction 76 Internal Rotation 76 Internal Rotation Behind Back (text) T7 Left Active Testing Position Sitting Flexion 98 Extension 59 Abduction 68 External Rotation at 0 degrees Abduction 28 Internal Rotation 57 Internal Rotation Behind Back (text) T8 Comments pain w/ROM PT-OP-M Strength Start: 04/17/23 17:53 Freq: Status: Active Protocol: Document 04/23/23 08:20 [facility] (Rec: 04/23/23 09:04 [facility] [id number]) Shoulder Strength Shoulder Manual Muscle Testing Right Flexion 4 Good Extension 3+ Fair+ Abduction (C5) 3 Fair External Rotation 4 Good Internal Rotation 3+ Fair+ Horizontal Adduction 3+ Fair+ Left Flexion 3 Fair Extension 3 Fair Abduction (C5) 2+ Poor+ External Rotation 3 Fair Internal Rotation 3+ Fair+ Horizontal Adduction 3 Fair Elbow/Forearm Strength Elbow and Forearm Manual Muscle Testing Left Flexion (C6) 4+ Good+ Extension (C7) 3 Fair Right Flexion (C6) 4+ Good+ Extension (C7) 4 Good PT-OP-Q Treatments Start: 04/17/23 17:53 Freq: Status: Active Protocol: Document 05/09/23 09:18 [facility] (Rec: 05/09/23 11:55 [facility] [id number]) Therapeutic Exercises Standing Exercises Karo Extension Side bilateral Resistance [place] Tb Reps/Minutes x10 Comments posture, UT overactivation isometrics Standing Exercise Name ER/IR Side bilateral Reps/Minutes 8x ea Comments ER w/ 3 second hold, towel under arm Wall slides Standing Exercise Name AAROM Side left Equipment Used towel Reps/Minutes 8x Comments RUE assists the LUE Rows Side bilateral Equipment Used peach band Reps/Minutes 10x Comments cues for posture, eccentric control Other Exercises Pulleys Side left Equipment Used pulleys Reps/Minutes 10x ea Comments Flex, Scap, Abd Manual Therapy Treatment Soft Tissue Mobilization Post Body Location L UT focus, L biceps long/ short heads Mobilization Type Sustained Pressure Intensity/Depth Moderate Body Position Sidelying Pec Mobilization Type Cross-Friction,Myofascial Release,Sustained Pressure Intensity/Depth Moderate Body Position Supine Comments Circular strokes Joint Mobilizations Scapular Direction elevation, medial, lateral, medial/lateral tilt, depression Grade II Body Position Sidelying GH Grade II Body Position Supine Comments Post, inf, distraction Self-Care/Home Management Treatment Education Patient Education Home Exercise Program,Joint Protection,Pain Management, Posture Other Education Encouraged pt to regularly resume supine pec stretching/ chest openers from previous PT HEP to lengthen pec and improve protracted shoulders. PT-OP-T Assessment and Plan Start: 04/17/23 17:53 Freq: Status: Active Protocol: Document 05/09/23 09:18 [facility] (Rec: 05/09/23 11:55 [facility] [id number]) Physical Therapy Assessment Impairments Impairments Activity Tolerance,Balance, Functional Activities, Functional Mobility,Gait,Pain, Posture,ROM,Soft Tissue Mobility,Strength Goals activity tolerance Impairment Oswestry disability index score 44% Municipal Maintenance Worker Goal (LTG) Pt will report ability to use LUE more w/o inc of pain LTG Duration 07/02 weakness Impairment weakness throughout trunk musculature Short Term Goal (STG) Pt will be indep w/HEP STG Duration 05/27 Municipal Maintenance Worker Goal (LTG) Pt will score at least 1 full MMT for all movements of L shoulder and at least 3/5 EFT LTG Duration 07/02 Two Impairment AROM Impairment Pain as high as 6/10 limiting ability to stand, walk, and do usual activities Short Term Goal (STG) Pt will be able to raise UE to at least 107 and abd to at least 80 deg STG Duration 05/31 Custodial Goal (LTG) Pt will be able to inc flex to at least 120 deg and abd to 90 w/o inc pain LTG Duration 07/02 1 Impairment 52.3 quick dash Short Term Goal (STG) Pt will improve Quick Dash score to no higher than 42 to show improved fucnctional ability. STG Duration 06/01 Municipal Maintenance Worker Goal (LTG) Pt will improve Quick Dash score to no higher than 30 to show improved fucnctional ability. LTG Duration 07/02 Assessment Summary Assessment Serenity is able to perform resisted shoulder extension without increase in symptoms but requires cues for posture and Upper trapezius overactivion at end-range. She also requires cues to decrease workload of L limb with AAROM wall slides and pulleys, and to rest when fatigued. She tolerates manual therapy without increase in pain but has pinpoint pain in area of L bicipittal groove. Palpable tightness to L UT improves with manual. Encouraged pt to regularly resume supine pec stretching/ chest openers from previous PT HEP to lengthen pec and improve protracted shoulders. Physical Therapy Plan Frequency and Duration Frequency of Treatment 2x/Week Duration of treatment (weeks) 10 Plan of Care Start Date 04/23/23 Plan of Care End Date 07/02/23 Therapeutic Interventions Therapeutic Interventions Balance Training,Gait Training ,Home Exercise Program,Joint Mobilizations,Manual Therapy, Neuromuscular Re-education, Patient/Caregiver Education, Self-Care/Home Management,Soft Tissue Mobilization,Taping, Therapeutic Activities, Therapeutic Exercises Modalities Cold Pack/Ice Massage,Electric Stimulation,Hot Packs, Infrared Therapy,Iontophoresis ,Ultrasound Next Visit Focus/Plan Next Visit Plan Review HEP: pulleys (flex, scap, abd), wall slides w/ R assisting L, Rows (peach). Manual: inf glides, post glides, SC joint. Soft tissue trap and lat.
--- NOTE | 2023-05-13 11:24 | PT.OTN ---
Current Diagnoses Other specific arthropathies, not elsewhere classified, left shoulder (05/13/23) Physical Therapy Treatment Note PT-OP-A Visit Information Start: 04/17/23 17:53 Freq: Status: Active Protocol: Document 05/13/23 07:31 [facility] (Rec: 05/13/23 11:23 [facility] [id number]) Out-Patient Physical Therapy Visit Information Visit Information Visit Type Treatment Note Visit Note 02/03 Visit Start Time 07:34 Visit Stop Time 08:15 Total Visit Minutes 41 Visit Number 4 Number of RIGGING UP MAN Visits 0 PT-OP-B Current Condition Start: 04/17/23 17:53 Freq: Status: Active Protocol: Document 04/23/23 08:20 [facility] (Rec: 04/23/23 09:04 [facility] [id number]) Current Condition History of Current Condition Onset Date a couple years ago; worse after fall 1.5 month ago Current Complaints L shoulder pain History of Current Condition Pt had a fall in her garden and fell back on to her back and reached across body w/L arm to grab an umbrella. This was about a month and a half ago. It started to get really sore a couple days later. She took some ibuprofen. She has started seeing an ortho and follows up re: imagaing next week. Kavon likes to garden but can't raise her hand w/ anything in it. She cannot reach further than 90 into abd . She needs help washing her hair. She has been unable to do these things for a couple years, but it is now more painful since the fall to do these things. Even just sitting, she notes pain. Prior Treatments and Tests MRI: IMPRESSION: 1. 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 2. Acromioclavicular joint osteoarthritis. 3. Glenoid labral tearing. Treatment Goals Patient/Caregiver Goals get the arm where she can use it in all positions and get it strength PT-OP-C Subjective Start: 04/17/23 17:53 Freq: Status: Active Protocol: Document 05/13/23 07:31 [facility] (Rec: 05/13/23 11:23 [facility] [id number]) OP-PT Subjective Patient Comments Patient Comments Pt reports getting her exercises in. She wants to review her exercises. PT-OP-J Posture/Palpation/Skin Start: 04/17/23 17:53 Freq: Status: Active Protocol: Document 04/23/23 08:20 [facility] (Rec: 04/23/23 09:04 [facility] [id number]) Posture Evaluation [facility] Postural Classification System Luiza Postural Classifications Posterior/Anterior Elbow Flexion Test 0 Comments Posture Comments EFT done seated PT-OP-K Range of Motion Start: 04/17/23 17:53 Freq: Status: Active Protocol: Document 04/23/23 08:20 [facility] (Rec: 04/23/23 09:04 [facility] [id number]) Shoulder Goniometric Range of Motion Shoulder Left Passive Testing Position Supine Flexion 124 Abduction 70 External Rotation at 45 degrees 59 Abduction Internal Rotation 80 Right Active Testing Position Sitting Flexion 130 Extension 74 Abduction 161 External Rotation at 90 degrees 78 Abduction External Rotation at 0 degrees Abduction 76 Internal Rotation 76 Internal Rotation Behind Back (text) T7 Left Active Testing Position Sitting Flexion 98 Extension 59 Abduction 68 External Rotation at 0 degrees Abduction 28 Internal Rotation 57 Internal Rotation Behind Back (text) T8 Comments pain w/ROM PT-OP-M Strength Start: 04/17/23 17:53 Freq: Status: Active Protocol: Document 04/23/23 08:20 [facility] (Rec: 04/23/23 09:04 [facility] [id number]) Shoulder Strength Shoulder Manual Muscle Testing Right Flexion 4 Good Extension 3+ Fair+ Abduction (C5) 3 Fair External Rotation 4 Good Internal Rotation 3+ Fair+ Horizontal Adduction 3+ Fair+ Left Flexion 3 Fair Extension 3 Fair Abduction (C5) 2+ Poor+ External Rotation 3 Fair Internal Rotation 3+ Fair+ Horizontal Adduction 3 Fair Elbow/Forearm Strength Elbow and Forearm Manual Muscle Testing Left Flexion (C6) 4+ Good+ Extension (C7) 3 Fair Right Flexion (C6) 4+ Good+ Extension (C7) 4 Good PT-OP-Q Treatments Start: 04/17/23 17:53 Freq: Status: Active Protocol: Document 05/13/23 07:31 [facility] (Rec: 05/13/23 11:23 [facility] [id number]) Therapeutic Exercises Sidelying Exercises abd Sidelying Exercise Name AAROM w/PT Side left Reps/Minutes 10 Comments to about 45 deg ER Side left Reps/Minutes 8 Comments towel at side open book Side left Reps/Minutes 10 Sitting Exercises Table slides Side bilateral Equipment Used towel Reps/Minutes 10x Comments flexion, both hands on towel Standing Exercises IR Side left Equipment Used peach band Reps/Minutes 15 Comments towel at side; cues for posture Karo Extension Standing Exercise Name straight arm ext Side bilateral Resistance orange Tb Reps/Minutes x15 ea Comments posture, UT overactivation isometrics Standing Exercise Name ER Side bilateral Reps/Minutes 5 sec x10 Comments towel at elbow Wall slides Standing Exercise Name AAROM Side left Equipment Used towel Reps/Minutes 8x Comments RUE assists the LUE Rows Side bilateral Equipment Used orange band Reps/Minutes 15x Comments cues for posture, eccentric control Other Exercises Pulleys Side left Equipment Used pulleys Reps/Minutes 10x ea Comments Flex, Scap, Abd Manual Therapy Treatment Soft Tissue Mobilization Post Body Location L rhomboids and lats, UT Mobilization Type Sustained Pressure Intensity/Depth Moderate Body Position Sidelying Pec Body Location major/minor Mobilization Type Myofascial Release,Sustained Pressure Intensity/Depth Moderate Body Position Supine Joint Mobilizations AC Joint post scap FM Grade II GH Grade II Body Position Supine Comments Post, lat distraction, distraction PT-OP-T Assessment and Plan Start: 04/17/23 17:53 Freq: Status: Active Protocol: Document 05/13/23 07:31 [facility] (Rec: 05/13/23 11:23 [facility] [id number]) Physical Therapy Assessment Goals activity tolerance Impairment Oswestry disability index score 44% Fpc Goal (LTG) Pt will report ability to use LUE more w/o inc of pain LTG Duration 07/02 weakness Impairment weakness throughout trunk musculature Short Term Goal (STG) Pt will be indep w/HEP STG Duration 05/27 Physical Education Teacher Goal (LTG) Pt will score at least 1 full MMT for all movements of L shoulder and at least 3/5 EFT LTG Duration 07/02 Two Impairment AROM Impairment Pain as high as 6/10 limiting ability to stand, walk, and do usual activities Short Term Goal (STG) Pt will be able to raise UE to at least 107 and abd to at least 80 deg STG Duration 05/31 Physical Education Teacher Goal (LTG) Pt will be able to inc flex to at least 120 deg and abd to 90 w/o inc pain LTG Duration 07/02 1 Impairment 52.3 quick dash Short Term Goal (STG) Pt will improve Quick Dash score to no higher than 42 to show improved fucnctional ability. STG Duration 06/01 Physical Education Teacher Goal (LTG) Pt will improve Quick Dash score to no higher than 30 to show improved fucnctional ability. LTG Duration 07/02 Assessment Summary Assessment Pt was able to do more resitstance and was able to do more reps of exercises today. S he was unable to do s/l abd indep but was able to do AAROM . She cont to be weak but is tolerating progression of exercise Physical Therapy Plan Frequency and Duration Frequency of Treatment 2x/Week Duration of treatment (weeks) 10 Plan of Care Start Date 04/23/23 Plan of Care End Date 07/02/23 Next Visit Focus/Plan Next Note Type Treatment Note Next Visit Plan Review HEP: pulleys (flex, scap, abd), wall slides w/ R assisting L, Rows (peach). Manual: inf glides, post glides, SC joint. Soft tissue trap and lat.
--- NOTE | 2023-05-16 10:45 | PT.OTN ---
Current Diagnoses Other specific arthropathies, not elsewhere classified, left shoulder (05/16/23) Physical Therapy Treatment Note PT-OP-A Visit Information Start: 04/17/23 17:53 Freq: Status: Active Protocol: Document 05/16/23 10:01 [facility] (Rec: 05/16/23 10:48 [facility] [id number]) Out-Patient Physical Therapy Visit Information Visit Information Visit Type Treatment Note Visit Note 03/05 Visit Start Time 10:01 Visit Stop Time 10:45 Total Visit Minutes 44 Visit Number 5 Number of PLATE TAKE OUT WORKER Visits 1 PT-OP-B Current Condition Start: 04/17/23 17:53 Freq: Status: Active Protocol: Document 04/23/23 08:20 [facility] (Rec: 04/23/23 09:04 [facility] [id number]) Current Condition History of Current Condition Onset Date a couple years ago; worse after fall 1.5 month ago Current Complaints L shoulder pain History of Current Condition Pt had a fall in her garden and fell back on to her back and reached across body w/L arm to grab an umbrella. This was about a month and a half ago. It started to get really sore a couple days later. She took some ibuprofen. She has started seeing an ortho and follows up re: imagaing next week. Kavon likes to garden but can't raise her hand w/ anything in it. She cannot reach further than 90 into abd . She needs help washing her hair. She has been unable to do these things for a couple years, but it is now more painful since the fall to do these things. Even just sitting, she notes pain. Prior Treatments and Tests MRI: IMPRESSION: 1. 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 2. Acromioclavicular joint osteoarthritis. 3. Glenoid labral tearing. Treatment Goals Patient/Caregiver Goals get the arm where she can use it in all positions and get it strength PT-OP-C Subjective Start: 04/17/23 17:53 Freq: Status: Active Protocol: Document 05/16/23 10:01 [facility] (Rec: 05/16/23 10:48 SP [id number]) OP-PT Subjective Patient Comments Patient Comments Pt reports challenging lifting L arm extended with filled cup, pain and lack of strength . PT-OP-J Posture/Palpation/Skin Start: 04/17/23 17:53 Freq: Status: Active Protocol: Document 04/23/23 08:20 [facility] (Rec: 04/23/23 09:04 [facility] [id number]) Posture Evaluation [facility] Postural Classification System [place] Postural Classifications Posterior/Anterior Elbow Flexion Test 0 Comments Posture Comments EFT done seated PT-OP-K Range of Motion Start: 04/17/23 17:53 Freq: Status: Active Protocol: Document 04/23/23 08:20 [facility] (Rec: 04/23/23 09:04 [facility] [id number]) Shoulder Goniometric Range of Motion Shoulder Left Passive Testing Position Supine Flexion 124 Abduction 70 External Rotation at 45 degrees 59 Abduction Internal Rotation 80 Right Active Testing Position Sitting Flexion 130 Extension 74 Abduction 161 External Rotation at 90 degrees 78 Abduction External Rotation at 0 degrees Abduction 76 Internal Rotation 76 Internal Rotation Behind Back (text) T7 Left Active Testing Position Sitting Flexion 98 Extension 59 Abduction 68 External Rotation at 0 degrees Abduction 28 Internal Rotation 57 Internal Rotation Behind Back (text) T8 Comments pain w/ROM PT-OP-M Strength Start: 04/17/23 17:53 Freq: Status: Active Protocol: Document 04/23/23 08:20 [facility] (Rec: 04/23/23 09:04 [facility] [id number]) Shoulder Strength Shoulder Manual Muscle Testing Right Flexion 4 Good Extension 3+ Fair+ Abduction (C5) 3 Fair External Rotation 4 Good Internal Rotation 3+ Fair+ Horizontal Adduction 3+ Fair+ Left Flexion 3 Fair Extension 3 Fair Abduction (C5) 2+ Poor+ External Rotation 3 Fair Internal Rotation 3+ Fair+ Horizontal Adduction 3 Fair Elbow/Forearm Strength Elbow and Forearm Manual Muscle Testing Left Flexion (C6) 4+ Good+ Extension (C7) 3 Fair Right Flexion (C6) 4+ Good+ Extension (C7) 4 Good PT-OP-Q Treatments Start: 04/17/23 17:53 Freq: Status: Active Protocol: Document 05/16/23 10:01 [facility] (Rec: 05/16/23 10:48 [facility] [id number]) Therapeutic Exercises Supine Exercises manual AAROM/PROM Supine Exercise Name ABD: 97 deg PROM, w/ distraction 120 deg Side left Reps/Minutes FF: 104deg, w/ distraction 136 Comments post PROM Standing Exercises IR Side left Resistance peach band Equipment Used towel under arm Reps/Minutes 5 reps peach, 10 reps orange Comments cues for chin tuck/head back neutral, scap squeeze Karo Extension Standing Exercise Name straight arm ext Side bilateral Resistance orange Tb Reps/Minutes 10 reps OTB, 10 reps PeachTB Comments cued chin tuck/ head back neutral, scap squeeze throughout range isometrics Standing Exercise Name ER Side bilateral Equipment Used towel at elbow Reps/Minutes 5 sec x10 Comments occasional cue for chin tuck Other Exercises Pulleys Other Exercise Name Flex, Scap, Abd Side left Resistance AAROM Equipment Used pulleys Reps/Minutes 10x ea Manual Therapy Treatment Soft Tissue Mobilization Post Body Location L distal RTC, deltoid Mobilization Type Strumming Intensity/Depth Moderate Body Position Hooklying Comments adjusted pressure, Pec Body Location distal major and prox bicep Mobilization Type Myofascial Release,Sustained Pressure Intensity/Depth Moderate Body Position Supine Joint Mobilizations GH Joint L shld Direction posterior, inferior, decompression w/PROM Grade II Body Position Supine Comments Post, lat distraction, distraction MWM FF, ABD - improvement in tolerated PROM. PT-OP-T Assessment and Plan Start: 04/17/23 17:53 Freq: Status: Active Protocol: Document 05/16/23 10:01 SP (Rec: 05/16/23 10:48 [facility] [id number]) Physical Therapy Assessment Goals activity tolerance Impairment Oswestry disability index score 44% Line Controller Goal (LTG) Pt will report ability to use LUE more w/o inc of pain LTG Duration 07/02 weakness Impairment weakness throughout trunk musculature Short Term Goal (STG) Pt will be indep w/HEP STG Duration 05/27 Prison Goal (LTG) Pt will score at least 1 full MMT for all movements of L shoulder and at least 3/5 EFT LTG Duration 07/02 Two Impairment AROM Impairment Pain as high as 6/10 limiting ability to stand, walk, and do usual activities Short Term Goal (STG) Pt will be able to raise UE to at least 107 and abd to at least 80 deg STG Duration 05/31 Line Controller Goal (LTG) Pt will be able to inc flex to at least 120 deg and abd to 90 w/o inc pain LTG Duration 07/02 1 Impairment 52.3 quick dash Short Term Goal (STG) Pt will improve Quick Dash score to no higher than 42 to show improved fucnctional ability. STG Duration 06/01 Prison Goal (LTG) Pt will improve Quick Dash score to no higher than 30 to show improved fucnctional ability. LTG Duration 07/02 Assessment Summary Assessment Pt improved postural corrections during HEP review with cues for w/ head chin tuck/ext neutral with HEP and scap stabilization. Decreased tension post manual. Pt made gains during PROM with less pain with decompression of L GH Jt. Physical Therapy Plan Frequency and Duration Frequency of Treatment 2x/Week Duration of treatment (weeks) 10 Plan of Care Start Date 04/23/23 Plan of Care End Date 07/02/23 Therapeutic Interventions Therapeutic Interventions Balance Training,Gait Training ,Home Exercise Program,Joint Mobilizations,Manual Therapy, Neuromuscular Re-education, Patient/Caregiver Education, Self-Care/Home Management,Soft Tissue Mobilization,Taping, Therapeutic Activities, Therapeutic Exercises Modalities Cold Pack/Ice Massage,Electric Stimulation,Hot Packs, Infrared Therapy,Iontophoresis ,Ultrasound Next Visit Focus/Plan Next Note Type Treatment Note Next Visit Plan Review HEP: pulleys (flex, scap, abd), wall slides w/ R assisting L, Rows (peach). Manual: inf glides, post glides, SC joint. Soft tissue trap and lat.
--- NOTE | 2023-05-20 08:24 | PT.OTN ---
Current Diagnoses Other specific arthropathies, not elsewhere classified, left shoulder (05/20/23) Physical Therapy Treatment Note PT-OP-A Visit Information Start: 04/17/23 17:53 Freq: Status: Active Protocol: Document 05/20/23 07:31 [facility] (Rec: 05/20/23 08:24 [facility] [id number]) Out-Patient Physical Therapy Visit Information Visit Information Visit Type Treatment Note Visit Note 04/05 Visit Start Time 07:34 Visit Stop Time 08:15 Total Visit Minutes 41 Visit Number 6 Number of CLIP LOADING MACHINE FEEDER Visits 0 PT-OP-B Current Condition Start: 04/17/23 17:53 Freq: Status: Active Protocol: Document 04/23/23 08:20 [facility] (Rec: 04/23/23 09:04 [facility] [id number]) Current Condition History of Current Condition Onset Date a couple years ago; worse after fall 1.5 month ago Current Complaints L shoulder pain History of Current Condition Pt had a fall in her garden and fell back on to her back and reached across body w/L arm to grab an umbrella. This was about a month and a half ago. It started to get really sore a couple days later. She took some ibuprofen. She has started seeing an ortho and follows up re: imagaing next week. Kavon likes to garden but can't raise her hand w/ anything in it. She cannot reach further than 90 into abd . She needs help washing her hair. She has been unable to do these things for a couple years, but it is now more painful since the fall to do these things. Even just sitting, she notes pain. Prior Treatments and Tests MRI: IMPRESSION: 1. 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 2. Acromioclavicular joint osteoarthritis. 3. Glenoid labral tearing. Treatment Goals Patient/Caregiver Goals get the arm where she can use it in all positions and get it strength PT-OP-C Subjective Start: 04/17/23 17:53 Freq: Status: Active Protocol: Document 05/20/23 07:31 [facility] (Rec: 05/20/23 08:24 [facility] [id number]) OP-PT Subjective Patient Comments Patient Comments Pt reports she is sore starting last night through the night. Unsure why. Soreness has been better except past couple days PT-OP-J Posture/Palpation/Skin Start: 04/17/23 17:53 Freq: Status: Active Protocol: Document 04/23/23 08:20 [facility] (Rec: 04/23/23 09:04 [facility] [id number]) Posture Evaluation [facility] Postural Classification System [facility] Postural Classifications Posterior/Anterior Elbow Flexion Test 0 Comments Posture Comments EFT done seated PT-OP-K Range of Motion Start: 04/17/23 17:53 Freq: Status: Active Protocol: Document 04/23/23 08:20 [facility] (Rec: 04/23/23 09:04 [facility] [id number]) Shoulder Goniometric Range of Motion Shoulder Left Passive Testing Position Supine Flexion 124 Abduction 70 External Rotation at 45 degrees 59 Abduction Internal Rotation 80 Right Active Testing Position Sitting Flexion 130 Extension 74 Abduction 161 External Rotation at 90 degrees 78 Abduction External Rotation at 0 degrees Abduction 76 Internal Rotation 76 Internal Rotation Behind Back (text) T7 Left Active Testing Position Sitting Flexion 98 Extension 59 Abduction 68 External Rotation at 0 degrees Abduction 28 Internal Rotation 57 Internal Rotation Behind Back (text) T8 Comments pain w/ROM PT-OP-M Strength Start: 04/17/23 17:53 Freq: Status: Active Protocol: Document 04/23/23 08:20 [facility] (Rec: 04/23/23 09:04 [facility] [id number]) Shoulder Strength Shoulder Manual Muscle Testing Right Flexion 4 Good Extension 3+ Fair+ Abduction (C5) 3 Fair External Rotation 4 Good Internal Rotation 3+ Fair+ Horizontal Adduction 3+ Fair+ Left Flexion 3 Fair Extension 3 Fair Abduction (C5) 2+ Poor+ External Rotation 3 Fair Internal Rotation 3+ Fair+ Horizontal Adduction 3 Fair Elbow/Forearm Strength Elbow and Forearm Manual Muscle Testing Left Flexion (C6) 4+ Good+ Extension (C7) 3 Fair Right Flexion (C6) 4+ Good+ Extension (C7) 4 Good PT-OP-Q Treatments Start: 04/17/23 17:53 Freq: Status: Active Protocol: Document 05/20/23 07:31 [facility] (Rec: 05/20/23 08:24 [facility] [id number]) Therapeutic Exercises Sidelying Exercises abd Sidelying Exercise Name AAROM w/PT Side left Reps/Minutes 8 Comments to about 70 deg ER Side left Reps/Minutes 10 Comments towel at side open book Side left Reps/Minutes 10 Standing Exercises wall posture Standing Exercise Name 10 sec holds (B UE ext) Side bilateral Reps/Minutes 6 min spent total Comments max cues and education IR Side left Resistance orange band Equipment Used towel under arm Reps/Minutes 15 Comments cues for chin tuck/head back neutral, scap squeeze Karo Extension Standing Exercise Name straight arm ext Side bilateral Resistance green Tb Reps/Minutes 10 Comments cues controlled motion isometrics Standing Exercise Name ER Side bilateral Equipment Used towel at elbow Reps/Minutes 5 sec x12 Comments occasional cue for chin tuck Wall slides Standing Exercise Name AAROM Side left Equipment Used towel Reps/Minutes 8x Comments RUE assists the LUE Rows Side bilateral Equipment Used orange band Reps/Minutes 15x Comments cues for control and posture Other Exercises Pulleys Other Exercise Name Flex, Scap, Abd Side left Resistance AAROM Equipment Used pulleys Reps/Minutes 10x ea Manual Therapy Treatment Soft Tissue Mobilization Post Body Location L UT, LS Mobilization Type Strumming Intensity/Depth Moderate Body Position Sidelying Pec Body Location sup aspect Mobilization Type Myofascial Release,Sustained Pressure Body Position Sidelying Joint Mobilizations AC Joint post scap FM Grade II GH Joint L shld Grade II Comments Post, lat distraction, distraction PT-OP-T Assessment and Plan Start: 04/17/23 17:53 Freq: Status: Active Protocol: Document 05/20/23 07:31 [facility] (Rec: 05/20/23 08:24 [facility] [id number]) Physical Therapy Assessment Goals activity tolerance Impairment Oswestry disability index score 44% Marketing Content Specialist Goal (LTG) Pt will report ability to use LUE more w/o inc of pain LTG Duration 07/02 weakness Impairment weakness throughout trunk musculature Short Term Goal (STG) Pt will be indep w/HEP STG Duration 05/27 Fdc Goal (LTG) Pt will score at least 1 full MMT for all movements of L shoulder and at least 3/5 EFT LTG Duration 07/02 Two Impairment AROM Impairment Pain as high as 6/10 limiting ability to stand, walk, and do usual activities Short Term Goal (STG) Pt will be able to raise UE to at least 107 and abd to at least 80 deg STG Duration 05/31 Marketing Content Specialist Goal (LTG) Pt will be able to inc flex to at least 120 deg and abd to 90 w/o inc pain LTG Duration 07/02 1 Impairment 52.3 quick dash Short Term Goal (STG) Pt will improve Quick Dash score to no higher than 42 to show improved fucnctional ability. STG Duration 06/01 Marketing Content Specialist Goal (LTG) Pt will improve Quick Dash score to no higher than 30 to show improved fucnctional ability. LTG Duration 07/02 Assessment Summary Assessment Pt is doing better w/exercises and was able to inc resistance today, but does still require cues. Wall posture was very dificult for pt. She has a lot of thoracic stiffness but did improve w/ abiltiy to get higher up after reps. Physical Therapy Plan Frequency and Duration Frequency of Treatment 2x/Week Duration of treatment (weeks) 10 Plan of Care Start Date 04/23/23 Plan of Care End Date 07/02/23 Next Visit Focus/Plan Next Note Type Treatment Note Next Visit Plan Review HEP: pulleys (flex, scap, abd), wall slides w/ R assisting L, Rows (peach). Manual: inf glides, post glides, SC joint. Soft tissue trap and lat.
--- NOTE | 2023-05-27 09:00 | PT.OTN ---
Current Diagnoses Other specific arthropathies, not elsewhere classified, left shoulder (05/27/23) Physical Therapy Treatment Note PT-OP-A Visit Information Start: 04/17/23 17:53 Freq: Status: Active Protocol: Document 05/27/23 08:18 [facility] (Rec: 05/27/23 09:01 [facility] [id number]) Out-Patient Physical Therapy Visit Information Visit Information Visit Type Treatment Note Visit Note 05/05 Visit Start Time 08:18 Visit Stop Time 09:00 Total Visit Minutes 42 Visit Number 7 Number of CLEANING LABORER Visits 1 PT-OP-B Current Condition Start: 04/17/23 17:53 Freq: Status: Active Protocol: Document 04/23/23 08:20 [facility] (Rec: 04/23/23 09:04 [facility] [id number]) Current Condition History of Current Condition Onset Date a couple years ago; worse after fall 1.5 month ago Current Complaints L shoulder pain History of Current Condition Pt had a fall in her garden and fell back on to her back and reached across body w/L arm to grab an umbrella. This was about a month and a half ago. It started to get really sore a couple days later. She took some ibuprofen. She has started seeing an ortho and follows up re: imagaing next week. Kavon likes to garden but can't raise her hand w/ anything in it. She cannot reach further than 90 into abd . She needs help washing her hair. She has been unable to do these things for a couple years, but it is now more painful since the fall to do these things. Even just sitting, she notes pain. Prior Treatments and Tests MRI: IMPRESSION: 1. 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 2. Acromioclavicular joint osteoarthritis. 3. Glenoid labral tearing. Treatment Goals Patient/Caregiver Goals get the arm where she can use it in all positions and get it strength PT-OP-C Subjective Start: 04/17/23 17:53 Freq: Status: Active Protocol: Document 05/27/23 08:18 [facility] (Rec: 05/27/23 09:01 [facility] [id number]) OP-PT Subjective Patient Comments Patient Comments Pt reported was sore after exercises 2 days ago. PT-OP-J Posture/Palpation/Skin Start: 04/17/23 17:53 Freq: Status: Active Protocol: Document 04/23/23 08:20 [facility] (Rec: 04/23/23 09:04 [facility] [id number]) Posture Evaluation [facility] Postural Classification System [facility] Postural Classifications Posterior/Anterior Elbow Flexion Test 0 Comments Posture Comments EFT done seated PT-OP-K Range of Motion Start: 04/17/23 17:53 Freq: Status: Active Protocol: Document 04/23/23 08:20 [facility] (Rec: 04/23/23 09:04 [facility] [id number]) Shoulder Goniometric Range of Motion Shoulder Left Passive Testing Position Supine Flexion 124 Abduction 70 External Rotation at 45 degrees 59 Abduction Internal Rotation 80 Right Active Testing Position Sitting Flexion 130 Extension 74 Abduction 161 External Rotation at 90 degrees 78 Abduction External Rotation at 0 degrees Abduction 76 Internal Rotation 76 Internal Rotation Behind Back (text) T7 Left Active Testing Position Sitting Flexion 98 Extension 59 Abduction 68 External Rotation at 0 degrees Abduction 28 Internal Rotation 57 Internal Rotation Behind Back (text) T8 Comments pain w/ROM PT-OP-M Strength Start: 04/17/23 17:53 Freq: Status: Active Protocol: Document 04/23/23 08:20 [facility] (Rec: 04/23/23 09:04 [facility] [id number]) Shoulder Strength Shoulder Manual Muscle Testing Right Flexion 4 Good Extension 3+ Fair+ Abduction (C5) 3 Fair External Rotation 4 Good Internal Rotation 3+ Fair+ Horizontal Adduction 3+ Fair+ Left Flexion 3 Fair Extension 3 Fair Abduction (C5) 2+ Poor+ External Rotation 3 Fair Internal Rotation 3+ Fair+ Horizontal Adduction 3 Fair Elbow/Forearm Strength Elbow and Forearm Manual Muscle Testing Left Flexion (C6) 4+ Good+ Extension (C7) 3 Fair Right Flexion (C6) 4+ Good+ Extension (C7) 4 Good PT-OP-Q Treatments Start: 04/17/23 17:53 Freq: Status: Active Protocol: Document 05/27/23 08:18 [facility] (Rec: 05/27/23 09:01 [facility] [id number]) Therapeutic Exercises Sidelying Exercises abd Sidelying Exercise Name AROM 118 deg Side left Resistance AAROM x5 reps Reps/Minutes AROM x4 reps Comments light manual UR scapular facilitation as needed, post manual open book Side left Resistance AROM- good form Reps/Minutes 10 Comments tactile cues scap depression- increase range w/ reps Standing Exercises IR Side left Resistance orange band Equipment Used towel under arm Reps/Minutes 15 Comments occ cues for chin tuck/head back neutral, scap squeeze isometrics Standing Exercise Name ER Side bilateral Equipment Used towel at elbow Reps/Minutes 10 SH x4 reps Comments occasional cue for postural elongation & chin tuck Wall slides Standing Exercise Name AAROM> AROM on facing wall Side left Equipment Used towel Reps/Minutes 10x Comments RUE assists the LUE initially then both parallel Rows Side bilateral Equipment Used orange band Reps/Minutes 15x Comments occ cue for control and posture Manual Therapy Treatment Soft Tissue Mobilization Post Body Location L UT, LS Mobilization Type Strumming Intensity/Depth Moderate Body Position Sidelying Pec Body Location prox bicep, post deltoid, prox tricep Mobilization Type Myofascial Release,Strumming Body Position Sidelying Joint Mobilizations Scapular Direction elevation, medial, lateral, medial/lateral tilt, depression Grade II Body Position Sidelying Comments manual and MWM FF and ABD PT-OP-T Assessment and Plan Start: 04/17/23 17:53 Freq: Status: Active Protocol: Document 05/27/23 08:18 [facility] (Rec: 05/27/23 09:01 [facility] [id number]) Physical Therapy Assessment Goals activity tolerance Impairment Oswestry disability index score 44% Skilled Nursing Goal (LTG) Pt will report ability to use LUE more w/o inc of pain LTG Duration 07/02 weakness Impairment weakness throughout trunk musculature Short Term Goal (STG) Pt will be indep w/HEP STG Duration 05/27 Skilled Nursing Goal (LTG) Pt will score at least 1 full MMT for all movements of L shoulder and at least 3/5 EFT LTG Duration 07/02 Two Impairment AROM Impairment Pain as high as 6/10 limiting ability to stand, walk, and do usual activities Short Term Goal (STG) Pt will be able to raise UE to at least 107 and abd to at least 80 deg STG Duration 05/31 Skilled Nursing Goal (LTG) Pt will be able to inc flex to at least 120 deg and abd to 90 w/o inc pain LTG Duration 07/02 1 Impairment 52.3 quick dash Short Term Goal (STG) Pt will improve Quick Dash score to no higher than 42 to show improved fucnctional ability. STG Duration 06/01 Skilled Nursing Goal (LTG) Pt will improve Quick Dash score to no higher than 30 to show improved fucnctional ability. LTG Duration 07/02 Assessment Summary Assessment Pt making gains, less support to LUE of RUE as reps progress wall slides and sidelying AAROM ABD> AROM today approx 118 deg post manual. Physical Therapy Plan Frequency and Duration Frequency of Treatment 2x/Week Duration of treatment (weeks) 10 Plan of Care Start Date 04/23/23 Plan of Care End Date 07/02/23 Therapeutic Interventions Therapeutic Interventions Balance Training,Gait Training ,Home Exercise Program,Joint Mobilizations,Manual Therapy, Neuromuscular Re-education, Patient/Caregiver Education, Self-Care/Home Management,Soft Tissue Mobilization,Taping, Therapeutic Activities, Therapeutic Exercises Modalities Cold Pack/Ice Massage,Electric Stimulation,Hot Packs, Infrared Therapy,Iontophoresis ,Ultrasound Next Visit Focus/Plan Next Note Type Treatment Note Next Visit Plan Review HEP: pulleys (flex, scap, abd), wall slides w/ R assisting L, Rows (peach). Manual: inf glides, post glides, SC joint. Soft tissue trap and lat.
--- NOTE | 2023-06-02 13:17 | PT.OTN ---
Current Diagnoses Other specific arthropathies, not elsewhere classified, left shoulder (06/02/23) Physical Therapy Treatment Note PT-OP-A Visit Information Start: 04/17/23 17:53 Freq: Status: Active Protocol: Document 06/02/23 11:56 NBM (Rec: 06/02/23 13:15 [facility] [id number]) Out-Patient Physical Therapy Visit Information Visit Information Visit Type Treatment Note Visit Note 06/05 Visit Start Time 12:19 Visit Stop Time 13:05 Total Visit Minutes 46 Visit Number 8 Number of ASSESSMENT CLINICIAN Visits 2 PT-OP-B Current Condition Start: 04/17/23 17:53 Freq: Status: Active Protocol: Document 04/23/23 08:20 [facility] (Rec: 04/23/23 09:04 [facility] [id number]) Current Condition History of Current Condition Onset Date a couple years ago; worse after fall 1.5 month ago Current Complaints L shoulder pain History of Current Condition Pt had a fall in her garden and fell back on to her back and reached across body w/L arm to grab an umbrella. This was about a month and a half ago. It started to get really sore a couple days later. She took some ibuprofen. She has started seeing an ortho and follows up re: imagaing next week. Kavon likes to garden but can't raise her hand w/ anything in it. She cannot reach further than 90 into abd . She needs help washing her hair. She has been unable to do these things for a couple years, but it is now more painful since the fall to do these things. Even just sitting, she notes pain. Prior Treatments and Tests MRI: IMPRESSION: 1. 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 2. Acromioclavicular joint osteoarthritis. 3. Glenoid labral tearing. Treatment Goals Patient/Caregiver Goals get the arm where she can use it in all positions and get it strength PT-OP-C Subjective Start: 04/17/23 17:53 Freq: Status: Active Protocol: Document 06/02/23 11:56 NBM (Rec: 06/02/23 13:15 [facility] [id number]) OP-PT Subjective Patient Comments Patient Comments Serenity reports she couldn't sleep well from pain and is sore today in her back, R arm, L shoulder and hip. PT-OP-J Posture/Palpation/Skin Start: 04/17/23 17:53 Freq: Status: Active Protocol: Document 04/23/23 08:20 [facility] (Rec: 04/23/23 09:04 [facility] [id number]) Posture Evaluation [facility] Postural Classification System [facility] Postural Classifications Posterior/Anterior Elbow Flexion Test 0 Comments Posture Comments EFT done seated PT-OP-K Range of Motion Start: 04/17/23 17:53 Freq: Status: Active Protocol: Document 04/23/23 08:20 [facility] (Rec: 04/23/23 09:04 [facility] [id number]) Shoulder Goniometric Range of Motion Shoulder Left Passive Testing Position Supine Flexion 124 Abduction 70 External Rotation at 45 degrees 59 Abduction Internal Rotation 80 Right Active Testing Position Sitting Flexion 130 Extension 74 Abduction 161 External Rotation at 90 degrees 78 Abduction External Rotation at 0 degrees Abduction 76 Internal Rotation 76 Internal Rotation Behind Back (text) T7 Left Active Testing Position Sitting Flexion 98 Extension 59 Abduction 68 External Rotation at 0 degrees Abduction 28 Internal Rotation 57 Internal Rotation Behind Back (text) T8 Comments pain w/ROM PT-OP-M Strength Start: 04/17/23 17:53 Freq: Status: Active Protocol: Document 04/23/23 08:20 [facility] (Rec: 04/23/23 09:04 [facility] [id number]) Shoulder Strength Shoulder Manual Muscle Testing Right Flexion 4 Good Extension 3+ Fair+ Abduction (C5) 3 Fair External Rotation 4 Good Internal Rotation 3+ Fair+ Horizontal Adduction 3+ Fair+ Left Flexion 3 Fair Extension 3 Fair Abduction (C5) 2+ Poor+ External Rotation 3 Fair Internal Rotation 3+ Fair+ Horizontal Adduction 3 Fair Elbow/Forearm Strength Elbow and Forearm Manual Muscle Testing Left Flexion (C6) 4+ Good+ Extension (C7) 3 Fair Right Flexion (C6) 4+ Good+ Extension (C7) 4 Good PT-OP-Q Treatments Start: 04/17/23 17:53 Freq: Status: Active Protocol: Document 06/02/23 11:56 NBM (Rec: 06/02/23 13:15 NBM [id number]) Therapeutic Exercises Standing Exercises wall posture Standing Exercise Name 10 sec holds (B UE ext) Side bilateral Equipment Used yellow ball behind head - can' t reach when keeping low back on wall Reps/Minutes 5 x 10SH Comments max cues, pt's self-awareness of keeping low back in contact improves Other Exercises Pulleys Other Exercise Name Flex, Scap, Abd Side left Resistance AAROM Equipment Used pulleys Reps/Minutes 10x ea Gait Training Gait Activity SPC Description Single point cane in RUE Level of Assistance SBA Surface carpet, tile Distance/Duration 10x5 Treatment Focus sequencing, safety Comments Pt reluctant to raise SPC height. Inconsistent sequencing and encouraged to maintain 2-pt gait with SPC in RUE and LLE. Manual Therapy Treatment Soft Tissue Mobilization Post Body Location B UT, L LS, lat, subscap Mobilization Type Strumming Intensity/Depth Moderate Body Position Sidelying Pec Body Location R>L prox bicep, L post deltoid Mobilization Type Myofascial Release,Strumming Intensity/Depth Moderate Body Position Sidelying Joint Mobilizations GH Joint L shld Grade II Comments Post PT-OP-R Modalities Start: 04/17/23 17:53 Freq: Status: Active Protocol: Document 06/02/23 11:56 NBM (Rec: 06/02/23 13:15 [facility] [id number]) Hot Pack/Cold Pack Treatment Heat Location lumbothoracic Patient Position Hooklying Comments H/l w/ 90/90 LE bolster support PT-OP-T Assessment and Plan Start: 04/17/23 17:53 Freq: Status: Active Protocol: Document 06/02/23 11:56 NBM (Rec: 06/02/23 13:15 [facility] [id number]) Physical Therapy Assessment Impairments Impairments Activity Tolerance,Balance, Functional Activities, Functional Mobility,Gait,Pain, Posture,ROM,Soft Tissue Mobility,Strength Goals activity tolerance Impairment Oswestry disability index score 44% Air Export Operations Agent Goal (LTG) Pt will report ability to use LUE more w/o inc of pain LTG Duration 07/02 weakness Impairment weakness throughout trunk musculature Short Term Goal (STG) Pt will be indep w/HEP STG Duration 05/27 [employer] Export Operations Agent Goal (LTG) Pt will score at least 1 full MMT for all movements of L shoulder and at least 3/5 EFT LTG Duration 07/02 Two Impairment AROM Impairment Pain as high as 6/10 limiting ability to stand, walk, and do usual activities Short Term Goal (STG) Pt will be able to raise UE to at least 107 and abd to at least 80 deg STG Duration 8/5 Retirement Goal (LTG) Pt will be able to inc flex to at least 120 deg and abd to 90 w/o inc pain LTG Duration 07/02 1 Impairment 52.3 quick dash Short Term Goal (STG) Pt will improve Quick Dash score to no higher than 42 to show improved fucnctional ability. STG Duration 06/01 Air Export Operations Agent Goal (LTG) Pt will improve Quick Dash score to no higher than 30 to show improved fucnctional ability. LTG Duration 07/02 Assessment Summary Assessment Serenity arrives w/ SPC in RUE with inconsistent sequencing expressing increased ovreall soreness since last night but unsure why. Treatment focus on gait training and manual therapy. She is reluctant to raise SPC height and uses for R glute weakness but in RUE due to LUE pain. Pt encouraged to maintain 2-pt gait with SPC in RUE and LLE. She requires max cues for wall posture but pt's self- awareness of keeping low back in contact improves - she is unable to reach ball behind head when mindful of keeping low back in wall contact. Pt reports improved pain to R arm post-manual therapy. Physical Therapy Plan Frequency and Duration Frequency of Treatment 2x/Week Duration of treatment (weeks) 10 Plan of Care Start Date 04/23/23 Plan of Care End Date 07/02/23 Therapeutic Interventions Therapeutic Interventions Balance Training,Gait Training ,Home Exercise Program,Joint Mobilizations,Manual Therapy, Neuromuscular Re-education, Patient/Caregiver Education, Self-Care/Home Management,Soft Tissue Mobilization,Taping, Therapeutic Activities, Therapeutic Exercises Modalities Cold Pack/Ice Massage,Electric Stimulation,Hot Packs, Infrared Therapy,Iontophoresis ,Ultrasound Next Visit Focus/Plan Next Note Type Treatment Note Next Visit Plan Review HEP: pulleys (flex, scap, abd), wall slides w/ R assisting L, Rows (peach). Manual: inf glides, post glides, SC joint. Soft tissue trap and lat.
--- NOTE | 2023-06-10 11:00 | PT.OTN ---
Current Diagnoses Other specific arthropathies, not elsewhere classified, left shoulder (06/10/23) Physical Therapy Treatment Note PT-OP-A Visit Information Start: 04/17/23 17:53 Freq: Status: Active Protocol: Document 06/10/23 07:31 [facility] (Rec: 06/10/23 11:00 [facility] [id number]) Out-Patient Physical Therapy Visit Information Visit Information Visit Type Progress Note Visit Note 11/05 Visit Start Time 07:32 Visit Stop Time 08:14 Total Visit Minutes 42 Visit Number 9 Number of ROTARY DRIER FEEDER Visits 0 PT-OP-B Current Condition Start: 04/17/23 17:53 Freq: Status: Active Protocol: Document 04/23/23 08:20 [facility] (Rec: 04/23/23 09:04 [facility] [id number]) Current Condition History of Current Condition Onset Date a couple years ago; worse after fall 1.5 month ago Current Complaints L shoulder pain History of Current Condition Pt had a fall in her garden and fell back on to her back and reached across body w/L arm to grab an umbrella. This was about a month and a half ago. It started to get really sore a couple days later. She took some ibuprofen. She has started seeing an ortho and follows up re: imagaing next week. Kavon likes to garden but can't raise her hand w/ anything in it. She cannot reach further than 90 into abd . She needs help washing her hair. She has been unable to do these things for a couple years, but it is now more painful since the fall to do these things. Even just sitting, she notes pain. Prior Treatments and Tests MRI: IMPRESSION: 1. 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 2. Acromioclavicular joint osteoarthritis. 3. Glenoid labral tearing. Treatment Goals Patient/Caregiver Goals get the arm where she can use it in all positions and get it strength PT-OP-C Subjective Start: 04/17/23 17:53 Freq: Status: Active Protocol: Document 06/10/23 07:31 [facility] (Rec: 06/10/23 11:00 [facility] [id number]) OP-PT Subjective Patient Comments Patient Comments pt reports compliance w/HEP PT-OP-J Posture/Palpation/Skin Start: 04/17/23 17:53 Freq: Status: Active Protocol: Document 04/23/23 08:20 [facility] (Rec: 04/23/23 09:04 [facility] [id number]) Posture Evaluation [facility] Postural Classification System [facility] Postural Classifications Posterior/Anterior Elbow Flexion Test 0 Comments Posture Comments EFT done seated PT-OP-K Range of Motion Start: 04/17/23 17:53 Freq: Status: Active Protocol: Document 06/10/23 07:31 [facility] (Rec: 06/10/23 11:00 [facility] [id number]) Shoulder Goniometric Range of Motion Shoulder Left Active Flexion 126 Extension 56 Abduction 93 External Rotation at 90 degrees 44 Abduction External Rotation at 0 degrees Abduction 34 Internal Rotation Behind Back (text) T7 Comments pain w/ROM PT-OP-M Strength Start: 04/17/23 17:53 Freq: Status: Active Protocol: Document 06/10/23 07:31 [facility] (Rec: 06/10/23 11:00 [facility] [id number]) Shoulder Strength Shoulder Manual Muscle Testing Right Flexion 4+ Good+ Extension 4+ Good+ Abduction (C5) 3+ Fair+ External Rotation 4 Good Internal Rotation 4- Good- Horizontal Adduction 4 Good Left Flexion 3+ Fair+ Extension 4 Good Abduction (C5) 3+ Fair+ External Rotation 3+ Fair+ Internal Rotation 4- Good- Horizontal Adduction 3+ Fair+ Comments pain Elbow/Forearm Strength Elbow and Forearm Manual Muscle Testing Left Flexion (C6) 4+ Good+ Extension (C7) 4 Good Comments pain w/flex Right Flexion (C6) 4+ Good+ Extension (C7) 4+ Good+ PT-OP-Q Treatments Start: 04/17/23 17:53 Freq: Status: Active Protocol: Document 06/10/23 07:31 [facility] (Rec: 06/10/23 11:00 [facility] [id number]) Therapeutic Exercises Supine Exercises AAROM Supine Exercise Name 1. chest press up 2. chest press up to AAROm overhead Side bilateral Reps/Minutes 1. 12 2. 10 serratus punch Supine Exercise Name assist to get into the position Side bilateral Reps/Minutes 12 Sidelying Exercises abd Side left Equipment Used AAROm for up then control down Reps/Minutes 8 ER Side left Reps/Minutes 10 Comments towel at side Standing Exercises ER Side left Equipment Used peach Reps/Minutes 10 Manual Therapy Treatment Soft Tissue Mobilization Post Body Location L UT, L LS Mobilization Type Strumming Intensity/Depth Moderate Body Position Sidelying Pec Body Location pec major/minor Mobilization Type Myofascial Release,Sustained Pressure Intensity/Depth Moderate Joint Mobilizations AC Joint post scap FM Grade II GH Joint L shld Grade II Comments Post translation PT-OP-R Modalities Start: 04/17/23 17:53 Freq: Status: Active Protocol: Document 06/02/23 11:56 NBM (Rec: 06/02/23 13:15 [facility] [id number]) Hot Pack/Cold Pack Treatment Heat Location lumbothoracic Patient Position Hooklying Comments H/l w/ 90/90 LE bolster support PT-OP-T Assessment and Plan Start: 04/17/23 17:53 Freq: Status: Active Protocol: Document 06/10/23 07:31 [facility] (Rec: 06/10/23 11:00 [facility] [id number]) Physical Therapy Assessment Goals activity tolerance Impairment - Halfway Goal (LTG) Pt will report ability to use LUE more w/o inc of pain 06/10-pt reports dec pain overall LTG Duration 08/19 weakness Impairment weakness throughout trunk musculature Short Term Goal (STG) Pt will be indep w/HEP STG Duration achieved advancing as able Data Architect Manager Goal (LTG) Pt will score at least 1 full MMT for all movements of L shoulder and at least 3/5 EFT LTG Duration 08/19 Two Impairment AROM Impairment - Short Term Goal (STG) Pt will be able to raise UE to at least 107 and abd to at least 80 deg STG Duration achieved 06/10 Halfway Goal (LTG) Pt will be able to inc flex to at least 120 deg and abd to 90 w/o inc pain 06/10-achieved advance to at least 140 deg flex and 120 deg ab LTG Duration 08/19 1 Impairment 52.3 quick dash Short Term Goal (STG) Pt will improve Quick Dash score to no higher than 42 to show improved fucnctional ability. 06/10-54.5 STG Duration 07/17 Data Architect Manager Goal (LTG) Pt will improve Quick Dash score to no higher than 30 to show improved fucnctional ability. LTG Duration 08/19 Assessment Summary Assessment Pt did well with progression of exercises today. She is making good progress w/ strength and ROM of L shoulder although based on her prior bout of PT, will likely not be 100% after this rehab. She is still limited in her ability to reach overhead and her strength and is noting still more pain recently w/ activtiies although less since starting PT. Pt to cont PT to iprove functional ability, dec pain and improve strength. Physical Therapy Plan Frequency and Duration Frequency of Treatment 1-2x/Week Duration of treatment (weeks) 10 Plan of Care Start Date 06/10/23 Plan of Care End Date 08/19/23 Next Visit Focus/Plan Next Note Type Treatment Note Next Visit Plan cont to advance ROM and progress strength as able. Manual to improved mechanics. Improve thoracic mobility and AC/SC jt mobility and GH mobility
--- NOTE | 2023-06-10 11:00 | PT.OPPOC ---
Physical, Occupational & Speech Therapy At [facility] Current Diagnoses Other specific arthropathies, not elsewhere classified, left shoulder (06/10/23) Visit Care Team Role Provider Type Joshua Chin MD Family Provider Physician Primary Care Provider Specialty: Internal Medicine Address: [address] [place] [address], [address], [address] Email: [email or web address] Manuel Hernández MD Attending Provider Physician Referring Provider Specialty: Orthopedics Orthopedic Surgery Address: [address] [place] [address], [id number] Email: [email or web address] Plan Of Care PT-OP-T Assessment and Plan Start: 04/17/23 17:53 Freq: Status: Active Protocol: Document 06/10/23 07:31 [facility] (Rec: 06/10/23 11:00 [facility] [id number]) Physical Therapy Assessment Goals activity tolerance Impairment - Director Auto Goal (LTG) Pt will report ability to use LUE more w/o inc of pain 06/10-pt reports dec pain overall LTG Duration 08/19 weakness Impairment weakness throughout trunk musculature Short Term Goal (STG) Pt will be indep w/HEP STG Duration achieved advancing as able Director Auto Goal (LTG) Pt will score at least 1 full MMT for all movements of L shoulder and at least 3/5 EFT LTG Duration 08/19 Two Impairment AROM Impairment - Short Term Goal (STG) Pt will be able to raise UE to at least 107 and abd to at least 80 deg STG Duration achieved 06/10 Director Auto Goal (LTG) Pt will be able to inc flex to at least 120 deg and abd to 90 w/o inc pain 06/10-achieved advance to at least 140 deg flex and 120 deg ab LTG Duration 08/19 1 Impairment 52.3 quick dash Short Term Goal (STG) Pt will improve Quick Dash score to no higher than 42 to show improved fucnctional ability. 06/10-54.5 STG Duration 07/17 [facility] Goal (LTG) Pt will improve Quick Dash score to no higher than 30 to show improved fucnctional ability. LTG Duration 08/19 Assessment Summary Assessment Pt did well with progression of exercises today. She is making good progress w/ strength and ROM of L shoulder although based on her prior bout of PT, will likely not be 100% after this rehab. She is still limited in her ability to reach overhead and her strength and is noting still more pain recently w/ activtiies although less since starting PT. Pt to cont PT to iprove functional ability, dec pain and improve strength. Physical Therapy Plan Frequency and Duration Frequency of Treatment 1-2x/Week Duration of treatment (weeks) 10 Plan of Care Start Date 06/10/23 Plan of Care End Date 08/19/23 Next Visit Focus/Plan Next Note Type Treatment Note Next Visit Plan cont to advance ROM and progress strength as able. Manual to improved mechanics. Improve thoracic mobility and AC/SC jt mobility and GH mobility Plan of Care Dates Plan of Care Start Date 06/10/23 Plan of Care End Date 08/19/23 Electronically Signed by: Tracey Cedeno, PT 06/10/23 1100 If you are in agreement with this Plan of Care, please return a signed and dated copy. I have reviewed this Plan of Care and certify that the skilled therapy services above are required to meet the patient?s needs. Physician Signature Date Printed Name and Credentials Clinical Instructor Signature Printed Name and Credentials
--- NOTE | 2023-06-13 16:10 | PT.OTN ---
Current Diagnoses Other specific arthropathies, not elsewhere classified, left shoulder (06/13/23) Physical Therapy Treatment Note PT-OP-A Visit Information Start: 04/17/23 17:53 Freq: Status: Active Protocol: Document 06/13/23 14:13 NBM (Rec: 06/13/23 15:05 [facility] [id number]) Out-Patient Physical Therapy Visit Information Visit Information Visit Type Treatment Note Visit Note 12/06 Visit Start Time 14:15 Visit Stop Time 15:00 Total Visit Minutes 45 Visit Number 10 Number of COMPACTOR DRIVER Visits 1 PT-OP-B Current Condition Start: 04/17/23 17:53 Freq: Status: Active Protocol: Document 04/23/23 08:20 LR (Rec: 04/23/23 09:04 [facility] [id number]) Current Condition History of Current Condition Onset Date a couple years ago; worse after fall 1.5 month ago Current Complaints L shoulder pain History of Current Condition Pt had a fall in her garden and fell back on to her back and reached across body w/L arm to grab an umbrella. This was about a month and a half ago. It started to get really sore a couple days later. She took some ibuprofen. She has started seeing an ortho and follows up re: imagaing next week. Kavon likes to garden but can't raise her hand w/ anything in it. She cannot reach further than 90 into abd . She needs help washing her hair. She has been unable to do these things for a couple years, but it is now more painful since the fall to do these things. Even just sitting, she notes pain. Prior Treatments and Tests MRI: IMPRESSION: 1. 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 2. Acromioclavicular joint osteoarthritis. 3. Glenoid labral tearing. Treatment Goals Patient/Caregiver Goals get the arm where she can use it in all positions and get it strength PT-OP-C Subjective Start: 04/17/23 17:53 Freq: Status: Active Protocol: Document 06/13/23 14:13 NBM (Rec: 06/13/23 15:05 [facility] [id number]) OP-PT Subjective Patient Comments Patient Comments Serenity reports left-sided general soreness more than right. Serenity did some of her ex 's this morning before deciding to wait to do the rest for physical therapy today. PT-OP-J Posture/Palpation/Skin Start: 04/17/23 17:53 Freq: Status: Active Protocol: Document 04/23/23 08:20 [facility] (Rec: 04/23/23 09:04 [facility] [id number]) Posture Evaluation [facility] Postural Classification System [facility] Postural Classifications Posterior/Anterior Elbow Flexion Test 0 Comments Posture Comments EFT done seated PT-OP-K Range of Motion Start: 04/17/23 17:53 Freq: Status: Active Protocol: Document 06/10/23 07:31 [facility] (Rec: 06/10/23 11:00 [facility] [id number]) Shoulder Goniometric Range of Motion Shoulder Left Active Flexion 126 Extension 56 Abduction 93 External Rotation at 90 degrees 44 Abduction External Rotation at 0 degrees Abduction 34 Internal Rotation Behind Back (text) T7 Comments pain w/ROM PT-OP-M Strength Start: 04/17/23 17:53 Freq: Status: Active Protocol: Document 06/10/23 07:31 [facility] (Rec: 06/10/23 11:00 [facility] [id number]) Shoulder Strength Shoulder Manual Muscle Testing Right Flexion 4+ Good+ Extension 4+ Good+ Abduction (C5) 3+ Fair+ External Rotation 4 Good Internal Rotation 4- Good- Horizontal Adduction 4 Good Left Flexion 3+ Fair+ Extension 4 Good Abduction (C5) 3+ Fair+ External Rotation 3+ Fair+ Internal Rotation 4- Good- Horizontal Adduction 3+ Fair+ Comments pain Elbow/Forearm Strength Elbow and Forearm Manual Muscle Testing Left Flexion (C6) 4+ Good+ Extension (C7) 4 Good Comments pain w/flex Right Flexion (C6) 4+ Good+ Extension (C7) 4+ Good+ PT-OP-Q Treatments Start: 04/17/23 17:53 Freq: Status: Active Protocol: Document 06/13/23 14:13 NBM (Rec: 06/13/23 15:05 NB [id number]) Therapeutic Exercises Supine Exercises AAROM Supine Exercise Name 1. chest press up 2. chest press up to AAROm overhead Side bilateral Reps/Minutes 1. 12 2. 10 serratus punch Supine Exercise Name added to HEP Side bilateral Reps/Minutes 12 Standing Exercises ER Side bilateral Equipment Used peach Reps/Minutes x10 ea Comments cues for maintaining elbow at side w/ end-range Manual Therapy Treatment Soft Tissue Mobilization Post Body Location B UT, B LS, SOR Mobilization Type Strumming Intensity/Depth Moderate Body Position Sidelying Comments L>R focus Pec Body Location L pec major/minor Mobilization Type Myofascial Release,Sustained Pressure Intensity/Depth Moderate Joint Mobilizations AC Joint post scap FM Grade II GH Joint L shld Grade II Comments Inferior, Posterior PT-OP-R Modalities Start: 04/17/23 17:53 Freq: Status: Active Protocol: Document 06/02/23 11:56 NBM (Rec: 06/02/23 13:15 [facility] [id number]) Hot Pack/Cold Pack Treatment Heat Location lumbothoracic Patient Position Hooklying Comments H/l w/ 90/90 LE bolster support PT-OP-T Assessment and Plan Start: 04/17/23 17:53 Freq: Status: Active Protocol: Document 06/13/23 14:13 NBM (Rec: 06/13/23 15:05 [facility] [id number]) Physical Therapy Assessment Goals activity tolerance Impairment - Longterm Goal (LTG) Pt will report ability to use LUE more w/o inc of pain 06/10-pt reports dec pain overall LTG Duration 08/19 weakness Impairment weakness throughout trunk musculature Short Term Goal (STG) Pt will be indep w/HEP STG Duration achieved advancing as able Longterm Goal (LTG) Pt will score at least 1 full MMT for all movements of L shoulder and at least 3/5 EFT LTG Duration 08/19 Two Impairment AROM Impairment - Short Term Goal (STG) Pt will be able to raise UE to at least 107 and abd to at least 80 deg STG Duration achieved 06/10 Pediatric Psychiatrist Goal (LTG) Pt will be able to inc flex to at least 120 deg and abd to 90 w/o inc pain 06/10-achieved advance to at least 140 deg flex and 120 deg ab LTG Duration 08/19 1 Impairment 52.3 quick dash Short Term Goal (STG) Pt will improve Quick Dash score to no higher than 42 to show improved fucnctional ability. 06/10-54.5 STG Duration 07/17 Pediatric Psychiatrist Goal (LTG) Pt will improve Quick Dash score to no higher than 30 to show improved fucnctional ability. LTG Duration 08/19 Assessment Summary Assessment Serenity's L shoulder reaches mat table after manual therapy and she has positive feedback response - It stays there. She requires cues for maintaining elbow at side w/ end-range and for UT overactivation w/ fatigue. Added serratus punches to HEP - HO printed but not given. Physical Therapy Plan Frequency and Duration Frequency of Treatment 1-2x/Week Duration of treatment (weeks) 10 Plan of Care Start Date 06/10/23 Plan of Care End Date 08/19/23 Therapeutic Interventions Therapeutic Interventions Balance Training,Gait Training ,Home Exercise Program,Joint Mobilizations,Manual Therapy, Neuromuscular Re-education, Patient/Caregiver Education, Self-Care/Home Management,Soft Tissue Mobilization,Taping, Therapeutic Activities, Therapeutic Exercises Modalities Cold Pack/Ice Massage,Electric Stimulation,Hot Packs, Infrared Therapy,Iontophoresis ,Ultrasound Next Visit Focus/Plan Next Note Type Treatment Note Next Visit Plan Review Serratus punch ex and provide HEP HO. POC: cont to advance ROM and progress strength as able. Manual to improved mechanics. Improve thoracic mobility and AC/SC jt mobility and GH mobility
--- NOTE | 2023-06-17 09:02 | PT.OTN ---
Current Diagnoses Other specific arthropathies, not elsewhere classified, left shoulder (06/17/23) Physical Therapy Treatment Note PT-OP-A Visit Information Start: 04/17/23 17:53 Freq: Status: Active Protocol: Document 06/17/23 08:14 [facility] (Rec: 06/17/23 09:02 [facility] [id number]) Out-Patient Physical Therapy Visit Information Visit Information Visit Type Treatment Note Visit Note 01/03 Visit Start Time 08:18 Visit Stop Time 09:00 Total Visit Minutes 42 Visit Number 11 Number of TUBING MACHINE OPERATOR Visits 0 PT-OP-B Current Condition Start: 04/17/23 17:53 Freq: Status: Active Protocol: Document 04/23/23 08:20 [facility] (Rec: 04/23/23 09:04 [facility] [id number]) Current Condition History of Current Condition Onset Date a couple years ago; worse after fall 1.5 month ago Current Complaints L shoulder pain History of Current Condition Pt had a fall in her garden and fell back on to her back and reached across body w/L arm to grab an umbrella. This was about a month and a half ago. It started to get really sore a couple days later. She took some ibuprofen. She has started seeing an ortho and follows up re: imagaing next week. Kavon likes to garden but can't raise her hand w/ anything in it. She cannot reach further than 90 into abd . She needs help washing her hair. She has been unable to do these things for a couple years, but it is now more painful since the fall to do these things. Even just sitting, she notes pain. Prior Treatments and Tests MRI: IMPRESSION: 1. 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 2. Acromioclavicular joint osteoarthritis. 3. Glenoid labral tearing. Treatment Goals Patient/Caregiver Goals get the arm where she can use it in all positions and get it strength PT-OP-C Subjective Start: 04/17/23 17:53 Freq: Status: Active Protocol: Document 06/17/23 08:14 [facility] (Rec: 06/17/23 09:02 [facility] [id number]) OP-PT Subjective Patient Comments Patient Comments Pt reports B lat ant brachium is sore and has been sore for weeks. She thinks it may be with her exercises. It twinges when reaching and when lifting the covers PT-OP-J Posture/Palpation/Skin Start: 04/17/23 17:53 Freq: Status: Active Protocol: Document 04/23/23 08:20 [facility] (Rec: 04/23/23 09:04 [facility] [id number]) Posture Evaluation [facility] Postural Classification System [facility] Postural Classifications Posterior/Anterior Elbow Flexion Test 0 Comments Posture Comments EFT done seated PT-OP-K Range of Motion Start: 04/17/23 17:53 Freq: Status: Active Protocol: Document 06/10/23 07:31 [facility] (Rec: 06/10/23 11:00 [facility] [id number]) Shoulder Goniometric Range of Motion Shoulder Left Active Flexion 126 Extension 56 Abduction 93 External Rotation at 90 degrees 44 Abduction External Rotation at 0 degrees Abduction 34 Internal Rotation Behind Back (text) T7 Comments pain w/ROM PT-OP-M Strength Start: 04/17/23 17:53 Freq: Status: Active Protocol: Document 06/10/23 07:31 [facility] (Rec: 06/10/23 11:00 [facility] [id number]) Shoulder Strength Shoulder Manual Muscle Testing Right Flexion 4+ Good+ Extension 4+ Good+ Abduction (C5) 3+ Fair+ External Rotation 4 Good Internal Rotation 4- Good- Horizontal Adduction 4 Good Left Flexion 3+ Fair+ Extension 4 Good Abduction (C5) 3+ Fair+ External Rotation 3+ Fair+ Internal Rotation 4- Good- Horizontal Adduction 3+ Fair+ Comments pain Elbow/Forearm Strength Elbow and Forearm Manual Muscle Testing Left Flexion (C6) 4+ Good+ Extension (C7) 4 Good Comments pain w/flex Right Flexion (C6) 4+ Good+ Extension (C7) 4+ Good+ PT-OP-Q Treatments Start: 04/17/23 17:53 Freq: Status: Active Protocol: Document 06/17/23 08:14 [facility] (Rec: 06/17/23 09:02 [facility] [id number]) Cardio Equipment Upper Body Ergometer (UBE) Duration (Minutes) 5 RPM 120 Seat Position 8 Height 3 Other fwd/back-max cues for B shoulder avoid shrug Therapeutic Exercises Supine Exercises AAROM Supine Exercise Name AAROM flex w/cane Side left Reps/Minutes 15 serratus punch Supine Exercise Name review HEP Side bilateral Reps/Minutes 15 Sidelying Exercises abd Sidelying Exercise Name AROM Side left Reps/Minutes 2 AAROM; 4 AROM ER Side left Reps/Minutes 2x10 Comments towel at side Sitting Exercises biceps curls Side bilateral Equipment Used 2# Reps/Minutes 8 ER Sitting Exercise Name 90/90 w/elbow on table Side left Reps/Minutes 10 Standing Exercises ER Side bilateral Equipment Used peach; towel at side Reps/Minutes x15 ea Comments cues for no rot of trunk Manual Therapy Treatment Soft Tissue Mobilization lat Body Location L lat, teres, sub scap Mobilization Type Sustained Pressure Intensity/Depth Moderate Comments w/rot Pec Body Location L pec major/minor Mobilization Type Myofascial Release,Sustained Pressure Intensity/Depth Moderate Joint Mobilizations SC Joint AP L FM AC Joint AP clavical andpost scap FM Grade II GH Joint L shld Grade II Comments Inferior, Posterior & distraction PT-OP-R Modalities Start: 04/17/23 17:53 Freq: Status: Active Protocol: Document 06/02/23 11:56 NB (Rec: 06/02/23 13:15 [facility] [id number]) Hot Pack/Cold Pack Treatment Heat Location lumbothoracic Patient Position Hooklying Comments H/l w/ 90/90 LE bolster support PT-OP-T Assessment and Plan Start: 04/17/23 17:53 Freq: Status: Active Protocol: Document 06/17/23 08:14 [facility] (Rec: 06/17/23 09:02 [facility] [id number]) Physical Therapy Assessment Goals activity tolerance Impairment - Culture Manager Goal (LTG) Pt will report ability to use LUE more w/o inc of pain 06/10-pt reports dec pain overall LTG Duration 08/19 weakness Impairment weakness throughout trunk musculature Short Term Goal (STG) Pt will be indep w/HEP STG Duration achieved advancing as able Culture Manager Goal (LTG) Pt will score at least 1 full MMT for all movements of L shoulder and at least 3/5 EFT LTG Duration 08/19 Two Impairment AROM Impairment - Short Term Goal (STG) Pt will be able to raise UE to at least 107 and abd to at least 80 deg STG Duration achieved 06/10 Custodial Goal (LTG) Pt will be able to inc flex to at least 120 deg and abd to 90 w/o inc pain 06/10-achieved advance to at least 140 deg flex and 120 deg ab LTG Duration 08/19 1 Impairment 52.3 quick dash Short Term Goal (STG) Pt will improve Quick Dash score to no higher than 42 to show improved fucnctional ability. /-54.5 STG Duration 07/17 Custodial Goal (LTG) Pt will improve Quick Dash score to no higher than 30 to show improved fucnctional ability. LTG Duration 08/19 Assessment Summary Assessment Pt did well with exercsies and was able to advance today w/ some exercises w/o inc pain. She cont to improve her strength and ROM, but does cont to have pain and dec overall endurance. Physical Therapy Plan Frequency and Duration Frequency of Treatment 1-2x/Week Duration of treatment (weeks) 10 Plan of Care Start Date 06/10/23 Plan of Care End Date 08/19/23 Next Visit Focus/Plan Next Note Type Treatment Note Next Visit Plan cont to advance ROM and progress strength as able. Manual to improved mechanics. Improve thoracic mobility and AC/SC jt mobility and GH mobility
--- NOTE | 2023-06-19 09:45 | PT.OTN ---
Current Diagnoses Other specific arthropathies, not elsewhere classified, left shoulder (06/19/23) Physical Therapy Treatment Note PT-OP-A Visit Information Start: 04/17/23 17:53 Freq: Status: Active Protocol: Document 06/19/23 09:04 [facility] (Rec: 06/19/23 09:48 [facility] [id number]) Out-Patient Physical Therapy Visit Information Visit Information Visit Type Treatment Note Visit Note 02/03 after PN Visit Start Time 09:04 Visit Stop Time 09:45 Total Visit Minutes 41 Visit Number 12 Number of JAVA GROOVY DEVELOPER Visits 1 PT-OP-B Current Condition Start: 04/17/23 17:53 Freq: Status: Active Protocol: Document 04/23/23 08:20 LR (Rec: 04/23/23 09:04 [facility] [id number]) Current Condition History of Current Condition Onset Date a couple years ago; worse after fall 1.5 month ago Current Complaints L shoulder pain History of Current Condition Pt had a fall in her garden and fell back on to her back and reached across body w/L arm to grab an umbrella. This was about a month and a half ago. It started to get really sore a couple days later. She took some ibuprofen. She has started seeing an ortho and follows up re: imagaing next week. Kavon likes to garden but can't raise her hand w/ anything in it. She cannot reach further than 90 into abd . She needs help washing her hair. She has been unable to do these things for a couple years, but it is now more painful since the fall to do these things. Even just sitting, she notes pain. Prior Treatments and Tests MRI: IMPRESSION: 1. 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 2. Acromioclavicular joint osteoarthritis. 3. Glenoid labral tearing. Treatment Goals Patient/Caregiver Goals get the arm where she can use it in all positions and get it strength PT-OP-C Subjective Start: 04/17/23 17:53 Freq: Status: Active Protocol: Document 06/19/23 09:04 SP (Rec: 06/19/23 09:48 [facility] [id number]) OP-PT Subjective Patient Comments Patient Comments Pt reports thinks the manual last tx helped alot, especially doing 1st before exercises. PT-OP-J Posture/Palpation/Skin Start: 04/17/23 17:53 Freq: Status: Active Protocol: Document 04/23/23 08:20 [facility] (Rec: 04/23/23 09:04 [facility] [id number]) Posture Evaluation [facility] Postural Classification System [facility] Postural Classifications Posterior/Anterior Elbow Flexion Test 0 Comments Posture Comments EFT done seated PT-OP-K Range of Motion Start: 04/17/23 17:53 Freq: Status: Active Protocol: Document 06/10/23 07:31 [facility] (Rec: 06/10/23 11:00 [facility] [id number]) Shoulder Goniometric Range of Motion Shoulder Left Active Flexion 126 Extension 56 Abduction 93 External Rotation at 90 degrees 44 Abduction External Rotation at 0 degrees Abduction 34 Internal Rotation Behind Back (text) T7 Comments pain w/ROM PT-OP-M Strength Start: 04/17/23 17:53 Freq: Status: Active Protocol: Document 06/10/23 07:31 [facility] (Rec: 06/10/23 11:00 [facility] [id number]) Shoulder Strength Shoulder Manual Muscle Testing Right Flexion 4+ Good+ Extension 4+ Good+ Abduction (C5) 3+ Fair+ External Rotation 4 Good Internal Rotation 4- Good- Horizontal Adduction 4 Good Left Flexion 3+ Fair+ Extension 4 Good Abduction (C5) 3+ Fair+ External Rotation 3+ Fair+ Internal Rotation 4- Good- Horizontal Adduction 3+ Fair+ Comments pain Elbow/Forearm Strength Elbow and Forearm Manual Muscle Testing Left Flexion (C6) 4+ Good+ Extension (C7) 4 Good Comments pain w/flex Right Flexion (C6) 4+ Good+ Extension (C7) 4+ Good+ PT-OP-Q Treatments Start: 04/17/23 17:53 Freq: Status: Active Protocol: Document 06/19/23 09:04 SP (Rec: 06/19/23 09:48 SP [id number]) Therapeutic Exercises Supine Exercises IR, ER Side left Resistance AROM (abd 45 deg) Reps/Minutes 5 x2 Comments cued LT facilitation AAROM Supine Exercise Name AAROM flex w/ and without cane Side left Reps/Minutes 15, 5 Comments manual fac as needed for scap/ GH FM serratus punch Supine Exercise Name review HEP Side bilateral Resistance AROM Reps/Minutes 15 Comments contact/verbal cue scap LT fac manual AAROM/PROM Supine Exercise Name FF, ABD, IR, ER Side left Reps/Minutes 3 min Comments ed anatomy and functional mechanics for scap stab during FM Sitting Exercises Table slides Sitting Exercise Name FF, scaption, ER Side left Equipment Used high/low table Reps/Minutes 10x Comments scoot back chair, trunk flexion toward floor Standing Exercises ER Side bilateral Equipment Used peach; towel at side Reps/Minutes x15 ea Comments cues for no rot of trunk, chin tuck IR Side left Resistance peach Equipment Used towel under arm Reps/Minutes 15 Comments occ cues for chin tuck/head back neutral, scap squeeze Manual Therapy Treatment Soft Tissue Mobilization lat Body Location L lat, teres, sub scap Mobilization Type Sustained Pressure Intensity/Depth Moderate Comments w/rot Pec Body Location L pec major/minor, bicep, coracobrachialis Mobilization Type Myofascial Release,Sustained Pressure Intensity/Depth Moderate Comments w/FM PROM and AAROM IR/ ER, punch Joint Mobilizations SC Joint AP L FM AC Joint AP clavical and post scap FM Grade II Comments w/ FF GH Joint L shld Grade II Comments Inferior, Posterior & distraction w/ FM FF/ABD/ER PT-OP-R Modalities Start: 04/17/23 17:53 Freq: Status: Active Protocol: Document 06/02/23 11:56 NBM (Rec: 06/02/23 13:15 [facility] [id number]) Hot Pack/Cold Pack Treatment Heat Location lumbothoracic Patient Position Hooklying Comments H/l w/ 90/90 LE bolster support PT-OP-T Assessment and Plan Start: 04/17/23 17:53 Freq: Status: Active Protocol: Document 06/19/23 09:04 SP (Rec: 06/19/23 09:48 [facility] [id number]) Physical Therapy Assessment Goals activity tolerance Impairment - Manager Product Management Goal (LTG) Pt will report ability to use LUE more w/o inc of pain 06/10-pt reports dec pain overall LTG Duration 08/19 weakness Impairment weakness throughout trunk musculature Short Term Goal (STG) Pt will be indep w/HEP STG Duration achieved advancing as able Correction Goal (LTG) Pt will score at least 1 full MMT for all movements of L shoulder and at least 3/5 EFT LTG Duration 08/19 Two Impairment AROM Impairment - Short Term Goal (STG) Pt will be able to raise UE to at least 107 and abd to at least 80 deg STG Duration achieved 06/10 Manager Product Management Goal (LTG) Pt will be able to inc flex to at least 120 deg and abd to 90 w/o inc pain 06/10-achieved advance to at least 140 deg flex and 120 deg ab LTG Duration 08/19 1 Impairment 52.3 quick dash Short Term Goal (STG) Pt will improve Quick Dash score to no higher than 42 to show improved fucnctional ability. 06/10-54.5 STG Duration 07/17 Correction Goal (LTG) Pt will improve Quick Dash score to no higher than 30 to show improved fucnctional ability. LTG Duration 08/19 Assessment Summary Assessment Pt improved scapular and GH inferior glide corrections with verbal and contact cues that allowed increase FF, scaption OH without cane support and slight more ER during table slide post manual . She reports slight decrease anterior L shld pain eccentric return from supine FF with LT cues. Good feedback supine IR /ER AROM (45 deg ABD), muscle shaky but painfree. Physical Therapy Plan Frequency and Duration Frequency of Treatment 1-2x/Week Duration of treatment (weeks) 10 Plan of Care Start Date 06/10/23 Plan of Care End Date 08/19/23 Therapeutic Interventions Therapeutic Interventions Balance Training,Gait Training ,Home Exercise Program,Joint Mobilizations,Manual Therapy, Neuromuscular Re-education, Patient/Caregiver Education, Self-Care/Home Management,Soft Tissue Mobilization,Taping, Therapeutic Activities, Therapeutic Exercises Modalities Cold Pack/Ice Massage,Electric Stimulation,Hot Packs, Infrared Therapy,Iontophoresis ,Ultrasound Next Visit Focus/Plan Next Note Type Treatment Note Next Visit Plan cont to advance ROM and progress strength as able. Manual to improved mechanics. Improve thoracic mobility and AC/SC jt mobility and GH mobility
--- NOTE | 2023-06-25 10:50 | PT.OTN ---
Current Diagnoses Other specific arthropathies, not elsewhere classified, left shoulder (06/25/23) Physical Therapy Treatment Note PT-OP-A Visit Information Start: 04/17/23 17:53 Freq: Status: Active Protocol: Document 06/25/23 10:11 [facility] (Rec: 06/25/23 10:50 [facility] [id number]) Out-Patient Physical Therapy Visit Information Visit Information Visit Type Treatment Note Visit Note 03/05 Visit Start Time 10:05 Visit Stop Time 10:47 Total Visit Minutes 42 Visit Number 13 Number of POWER SHOVEL MECHANIC Visits 0 PT-OP-B Current Condition Start: 04/17/23 17:53 Freq: Status: Active Protocol: Document 04/23/23 08:20 [facility] (Rec: 04/23/23 09:04 [facility] [id number]) Current Condition History of Current Condition Onset Date a couple years ago; worse after fall 1.5 month ago Current Complaints L shoulder pain History of Current Condition Pt had a fall in her garden and fell back on to her back and reached across body w/L arm to grab an umbrella. This was about a month and a half ago. It started to get really sore a couple days later. She took some ibuprofen. She has started seeing an ortho and follows up re: imagaing next week. Kavon likes to garden but can't raise her hand w/ anything in it. She cannot reach further than 90 into abd . She needs help washing her hair. She has been unable to do these things for a couple years, but it is now more painful since the fall to do these things. Even just sitting, she notes pain. Prior Treatments and Tests MRI: IMPRESSION: 1. 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 2. Acromioclavicular joint osteoarthritis. 3. Glenoid labral tearing. Treatment Goals Patient/Caregiver Goals get the arm where she can use it in all positions and get it strength PT-OP-C Subjective Start: 04/17/23 17:53 Freq: Status: Active Protocol: Document 06/25/23 10:11 [facility] (Rec: 06/25/23 10:50 [facility] [id number]) OP-PT Subjective Patient Comments Patient Comments pt brought all exercise sfrom this PT session and last and wants to knwo what to cont PT-OP-J Posture/Palpation/Skin Start: 04/17/23 17:53 Freq: Status: Active Protocol: Document 04/23/23 08:20 [facility] (Rec: 04/23/23 09:04 [facility] [id number]) Posture Evaluation [facility] Postural Classification System [facility] Postural Classifications Posterior/Anterior Elbow Flexion Test 0 Comments Posture Comments EFT done seated PT-OP-K Range of Motion Start: 04/17/23 17:53 Freq: Status: Active Protocol: Document 06/10/23 07:31 [facility] (Rec: 06/10/23 11:00 [facility] [id number]) Shoulder Goniometric Range of Motion Shoulder Left Active Flexion 126 Extension 56 Abduction 93 External Rotation at 90 degrees 44 Abduction External Rotation at 0 degrees Abduction 34 Internal Rotation Behind Back (text) T7 Comments pain w/ROM PT-OP-M Strength Start: 04/17/23 17:53 Freq: Status: Active Protocol: Document 06/10/23 07:31 [facility] (Rec: 06/10/23 11:00 [facility] [id number]) Shoulder Strength Shoulder Manual Muscle Testing Right Flexion 4+ Good+ Extension 4+ Good+ Abduction (C5) 3+ Fair+ External Rotation 4 Good Internal Rotation 4- Good- Horizontal Adduction 4 Good Left Flexion 3+ Fair+ Extension 4 Good Abduction (C5) 3+ Fair+ External Rotation 3+ Fair+ Internal Rotation 4- Good- Horizontal Adduction 3+ Fair+ Comments pain Elbow/Forearm Strength Elbow and Forearm Manual Muscle Testing Left Flexion (C6) 4+ Good+ Extension (C7) 4 Good Comments pain w/flex Right Flexion (C6) 4+ Good+ Extension (C7) 4+ Good+ PT-OP-Q Treatments Start: 04/17/23 17:53 Freq: Status: Active Protocol: Document 06/25/23 10:11 [facility] (Rec: 06/25/23 10:50 [facility] [id number]) Cardio Equipment Upper Body Ergometer (UBE) Duration (Minutes) 4 Seat Position 8 Height 3 Other 120rpm fwd/50 back Therapeutic Exercises Supine Exercises IR, ER Side left Resistance AROM (abd 90 deg) Reps/Minutes 10 Sitting Exercises ER Sitting Exercise Name 90/90 w/elbow on table Side left Reps/Minutes 10 Standing Exercises Wall slides Standing Exercise Name 1.flex wall slide lift off 2. abd Side left Reps/Minutes 1.8 2. 5 Manual Therapy Treatment Joint Mobilizations GH Joint L Comments Post glide and IR FM Self-Care/Home Management Treatment Education Other Education 23 min: edu of which exercises are repeats from old ones, discussion re: why some are not right for her right now. edu re: trying to do as many reps to fatigue. Discussed doing less w/cane and doing mroe AROM exercises at this time.HEP: row, ext resisted, wall slide flex then lift off wall, wall slide abd, pulleys (scaption, flex, abd), tband IR, ER, open book, seated ER 90/90, wall posture, supine chest press, serratus punch then flex overhead then chest press back down (as many as possible w/o cane) PT-OP-R Modalities Start: 04/17/23 17:53 Freq: Status: Active Protocol: Document 06/02/23 11:56 [facility] (Rec: 06/02/23 13:15 [facility] [id number]) Hot Pack/Cold Pack Treatment Heat Location lumbothoracic Patient Position Hooklying Comments H/l w/ 90/90 LE bolster support PT-OP-T Assessment and Plan Start: 04/17/23 17:53 Freq: Status: Active Protocol: Document 06/25/23 10:11 [facility] (Rec: 06/25/23 10:50 [facility] [id number]) Physical Therapy Assessment Goals activity tolerance Impairment - Nursing Home Director Goal (LTG) Pt will report ability to use LUE more w/o inc of pain 06/10-pt reports dec pain overall LTG Duration 08/19 weakness Impairment weakness throughout trunk musculature Short Term Goal (STG) Pt will be indep w/HEP STG Duration achieved advancing as able Nursing Home Director Goal (LTG) Pt will score at least 1 full MMT for all movements of L shoulder and at least 3/5 EFT LTG Duration 08/19 Two Impairment AROM Impairment - Short Term Goal (STG) Pt will be able to raise UE to at least 107 and abd to at least 80 deg STG Duration achieved 06/10 Retirement Goal (LTG) Pt will be able to inc flex to at least 120 deg and abd to 90 w/o inc pain 06/10-achieved advance to at least 140 deg flex and 120 deg ab LTG Duration 08/19 1 Impairment 52.3 quick dash Short Term Goal (STG) Pt will improve Quick Dash score to no higher than 42 to show improved fucnctional ability. 06/10-54.5 STG Duration 07/17 Retirement Goal (LTG) Pt will improve Quick Dash score to no higher than 30 to show improved fucnctional ability. LTG Duration 08/19 Assessment Summary Assessment Pt did well with exercsies and was able to advance some of her HEP. Discussed w/pt HEP and made sure pt felt good about set HEP at this time. Pt to inform PT if exercises get too easy for her. Improved IR at 90 deg abd after manual ( improved about 10 deg) Physical Therapy Plan Frequency and Duration Frequency of Treatment 1-2x/Week Duration of treatment (weeks) 10 Plan of Care Start Date 06/10/23 Plan of Care End Date 08/19/23 Next Visit Focus/Plan Next Note Type Treatment Note Next Visit Plan cont to advance ROM and progress strength as able. Manual to improved mechanics. Improve thoracic mobility and AC/SC jt mobility and GH mobility
--- NOTE | 2023-06-26 14:15 | PT.OTN ---
Current Diagnoses Other specific arthropathies, not elsewhere classified, left shoulder (06/26/23) Physical Therapy Treatment Note PT-OP-A Visit Information Start: 04/17/23 17:53 Freq: Status: Active Protocol: Document 06/26/23 13:42 [facility] (Rec: 06/26/23 14:22 [facility] [id number]) Out-Patient Physical Therapy Visit Information Visit Information Visit Type Treatment Note Visit Note 04/05 NURSING SECRETARY late for appt Visit Start Time 13:36 Visit Stop Time 14:15 Total Visit Minutes 39 Visit Number 14 Number of NURSING SECRETARY Visits 1 PT-OP-B Current Condition Start: 04/17/23 17:53 Freq: Status: Active Protocol: Document 04/23/23 08:20 [facility] (Rec: 04/23/23 09:04 [facility] [id number]) Current Condition History of Current Condition Onset Date a couple years ago; worse after fall 1.5 month ago Current Complaints L shoulder pain History of Current Condition Pt had a fall in her garden and fell back on to her back and reached across body w/L arm to grab an umbrella. This was about a month and a half ago. It started to get really sore a couple days later. She took some ibuprofen. She has started seeing an ortho and follows up re: imagaing next week. Kavon likes to garden but can't raise her hand w/ anything in it. She cannot reach further than 90 into abd . She needs help washing her hair. She has been unable to do these things for a couple years, but it is now more painful since the fall to do these things. Even just sitting, she notes pain. Prior Treatments and Tests MRI: IMPRESSION: 1. 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 2. Acromioclavicular joint osteoarthritis. 3. Glenoid labral tearing. Treatment Goals Patient/Caregiver Goals get the arm where she can use it in all positions and get it strength PT-OP-C Subjective Start: 04/17/23 17:53 Freq: Status: Active Protocol: Document 06/26/23 13:42 [facility] (Rec: 06/26/23 14:22 SP [id number]) OP-PT Subjective Patient Comments Patient Comments Pt reports likes the condensed HEP. PT-OP-J Posture/Palpation/Skin Start: 04/17/23 17:53 Freq: Status: Active Protocol: Document 04/23/23 08:20 [facility] (Rec: 04/23/23 09:04 [facility] [id number]) Posture Evaluation [facility] Postural Classification System [place] Postural Classifications Posterior/Anterior Elbow Flexion Test 0 Comments Posture Comments EFT done seated PT-OP-K Range of Motion Start: 04/17/23 17:53 Freq: Status: Active Protocol: Document 06/10/23 07:31 [facility] (Rec: 06/10/23 11:00 [facility] [id number]) Shoulder Goniometric Range of Motion Shoulder Left Active Flexion 126 Extension 56 Abduction 93 External Rotation at 90 degrees 44 Abduction External Rotation at 0 degrees Abduction 34 Internal Rotation Behind Back (text) T7 Comments pain w/ROM PT-OP-M Strength Start: 04/17/23 17:53 Freq: Status: Active Protocol: Document 06/10/23 07:31 [facility] (Rec: 06/10/23 11:00 [facility] [id number]) Shoulder Strength Shoulder Manual Muscle Testing Right Flexion 4+ Good+ Extension 4+ Good+ Abduction (C5) 3+ Fair+ External Rotation 4 Good Internal Rotation 4- Good- Horizontal Adduction 4 Good Left Flexion 3+ Fair+ Extension 4 Good Abduction (C5) 3+ Fair+ External Rotation 3+ Fair+ Internal Rotation 4- Good- Horizontal Adduction 3+ Fair+ Comments pain Elbow/Forearm Strength Elbow and Forearm Manual Muscle Testing Left Flexion (C6) 4+ Good+ Extension (C7) 4 Good Comments pain w/flex Right Flexion (C6) 4+ Good+ Extension (C7) 4+ Good+ PT-OP-Q Treatments Start: 04/17/23 17:53 Freq: Status: Active Protocol: Document 06/26/23 13:42 [facility] (Rec: 06/26/23 14:22 [facility] [id number]) Therapeutic Exercises Supine Exercises IR, ER Side left Resistance AROM (abd 90 deg)> 1# DB Reps/Minutes 10 AAROM Supine Exercise Name AAROM flex w/ and without cane Side left Reps/Minutes 15 w/ cane, 5 AROM Comments self good form serratus punch Supine Exercise Name review HEP: chest press into SerrPress Side bilateral Resistance AROM Reps/Minutes 15 Comments LUE tires but able do self Sidelying Exercises abd Sidelying Exercise Name Hold off self, to challenging Side left Reps/Minutes 2 AAROM; 4 AROM Comments Manual assist first 2 reps, then able self, cues serratus press less/nopain open book Side left Resistance 1# DB Reps/Minutes 10 Comments tactile cues scap depression- increase range w/ reps Sitting Exercises ER Sitting Exercise Name 90 ABD/90 ER w/elbow on table Side left Reps/Minutes 10 x2 sets1 Comments good muscle tiring Standing Exercises Wall slides Standing Exercise Name 1.flex wall slide lift off 2. abd Side left Reps/Minutes 1.10 2. 3 Comments contact wall ABD Manual Therapy Treatment Soft Tissue Mobilization Pec Body Location L pec major/minor, bicep, suprasp, infrasp, deltoid Mobilization Type Myofascial Release,Sustained Pressure Intensity/Depth Moderate Comments w/FM ABD. PT-OP-R Modalities Start: 04/17/23 17:53 Freq: Status: Active Protocol: Document 06/02/23 11:56 [facility] (Rec: 06/02/23 13:15 [facility] [id number]) Hot Pack/Cold Pack Treatment Heat Location lumbothoracic Patient Position Hooklying Comments H/l w/ 90/90 LE bolster support PT-OP-T Assessment and Plan Start: 04/17/23 17:53 Freq: Status: Active Protocol: Document 06/26/23 13:42 SP (Rec: 06/26/23 14:22 SP [id number]) Physical Therapy Assessment Goals activity tolerance Impairment - Mcfp Goal (LTG) Pt will report ability to use LUE more w/o inc of pain 06/10-pt reports dec pain overall LTG Duration 08/19 weakness Impairment weakness throughout trunk musculature Short Term Goal (STG) Pt will be indep w/HEP STG Duration achieved advancing as able Office Asst Goal (LTG) Pt will score at least 1 full MMT for all movements of L shoulder and at least 3/5 EFT LTG Duration 08/19 Two Impairment AROM Impairment - Short Term Goal (STG) Pt will be able to raise UE to at least 107 and abd to at least 80 deg STG Duration achieved 06/10 Mcfp Goal (LTG) Pt will be able to inc flex to at least 120 deg and abd to 90 w/o inc pain 06/10-achieved advance to at least 140 deg flex and 120 deg ab LTG Duration 08/19 1 Impairment 52.3 quick dash Short Term Goal (STG) Pt will improve Quick Dash score to no higher than 42 to show improved fucnctional ability. 06/10-54.5 STG Duration 07/17 Office Asst Goal (LTG) Pt will improve Quick Dash score to no higher than 30 to show improved fucnctional ability. LTG Duration 08/19 Assessment Summary Assessment Pt improved supraspinatus and deltoid fac with cues for serratus press during side ABD and FF. She is feeling more confident with ideneified green check vazquez on HEP HOs. Cued for elongated posturing during standing activity awareness. Physical Therapy Plan Frequency and Duration Frequency of Treatment 1-2x/Week Duration of treatment (weeks) 10 Plan of Care Start Date 06/10/23 Plan of Care End Date 08/19/23 Therapeutic Interventions Therapeutic Interventions Balance Training,Gait Training ,Home Exercise Program,Joint Mobilizations,Manual Therapy, Neuromuscular Re-education, Patient/Caregiver Education, Self-Care/Home Management,Soft Tissue Mobilization,Taping, Therapeutic Activities, Therapeutic Exercises Modalities Cold Pack/Ice Massage,Electric Stimulation,Hot Packs, Infrared Therapy,Iontophoresis ,Ultrasound Next Visit Focus/Plan Next Note Type Treatment Note Next Visit Plan cont to advance ROM and progress strength as able. Manual to improved mechanics. Improve thoracic mobility and AC/SC jt mobility and GH mobility
--- NOTE | 2023-07-04 13:51 | PT.OTN ---
Current Diagnoses Other specific arthropathies, not elsewhere classified, left shoulder (07/04/23) Physical Therapy Treatment Note PT-OP-A Visit Information Start: 04/17/23 17:53 Freq: Status: Active Protocol: Document 07/04/23 09:29 NBM (Rec: 07/04/23 13:47 [facility] [id number]) Out-Patient Physical Therapy Visit Information Visit Information Visit Type Treatment Note Visit Note 05/05 Pt's sister is present throughout visit. Visit Start Time 09:30 Visit Stop Time 10:18 Total Visit Minutes 48 Visit Number 15 Number of DAIRY NUTRITION SPECIALIST Visits 2 PT-OP-B Current Condition Start: 04/17/23 17:53 Freq: Status: Active Protocol: Document 04/23/23 08:20 LR (Rec: 04/23/23 09:04 [facility] [id number]) Current Condition History of Current Condition Onset Date a couple years ago; worse after fall 1.5 month ago Current Complaints L shoulder pain History of Current Condition Pt had a fall in her garden and fell back on to her back and reached across body w/L arm to grab an umbrella. This was about a month and a half ago. It started to get really sore a couple days later. She took some ibuprofen. She has started seeing an ortho and follows up re: imagaing next week. Kavon likes to garden but can't raise her hand w/ anything in it. She cannot reach further than 90 into abd . She needs help washing her hair. She has been unable to do these things for a couple years, but it is now more painful since the fall to do these things. Even just sitting, she notes pain. Prior Treatments and Tests MRI: IMPRESSION: 1. 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 2. Acromioclavicular joint osteoarthritis. 3. Glenoid labral tearing. Treatment Goals Patient/Caregiver Goals get the arm where she can use it in all positions and get it strength PT-OP-C Subjective Start: 04/17/23 17:53 Freq: Status: Active Protocol: Document 07/04/23 09:29 NBM (Rec: 07/04/23 13:47 [facility] [id number]) OP-PT Subjective Patient Comments Patient Comments Serenity states she's been doing well except both shoulders were sore yesterday and she did her ex's anyway. Her sister is visiting. PT-OP-J Posture/Palpation/Skin Start: 04/17/23 17:53 Freq: Status: Active Protocol: Document 04/23/23 08:20 [facility] (Rec: 04/23/23 09:04 [facility] [id number]) Posture Evaluation [facility] Postural Classification System [facility] Postural Classifications Posterior/Anterior Elbow Flexion Test 0 Comments Posture Comments EFT done seated PT-OP-K Range of Motion Start: 04/17/23 17:53 Freq: Status: Active Protocol: Document 06/10/23 07:31 [facility] (Rec: 06/10/23 11:00 [facility] [id number]) Shoulder Goniometric Range of Motion Shoulder Left Active Flexion 126 Extension 56 Abduction 93 External Rotation at 90 degrees 44 Abduction External Rotation at 0 degrees Abduction 34 Internal Rotation Behind Back (text) T7 Comments pain w/ROM PT-OP-M Strength Start: 04/17/23 17:53 Freq: Status: Active Protocol: Document 06/10/23 07:31 [facility] (Rec: 06/10/23 11:00 [facility] [id number]) Shoulder Strength Shoulder Manual Muscle Testing Right Flexion 4+ Good+ Extension 4+ Good+ Abduction (C5) 3+ Fair+ External Rotation 4 Good Internal Rotation 4- Good- Horizontal Adduction 4 Good Left Flexion 3+ Fair+ Extension 4 Good Abduction (C5) 3+ Fair+ External Rotation 3+ Fair+ Internal Rotation 4- Good- Horizontal Adduction 3+ Fair+ Comments pain Elbow/Forearm Strength Elbow and Forearm Manual Muscle Testing Left Flexion (C6) 4+ Good+ Extension (C7) 4 Good Comments pain w/flex Right Flexion (C6) 4+ Good+ Extension (C7) 4+ Good+ PT-OP-Q Treatments Start: 04/17/23 17:53 Freq: Status: Active Protocol: Document 07/04/23 09:29 NBM (Rec: 07/04/23 13:47 [facility] [id number]) Therapeutic Exercises Supine Exercises IR, ER Side left Resistance AROM (abd 90 deg)> 1# DB Reps/Minutes 10 AAROM Supine Exercise Name AAROM without cane>AROM Side left Reps/Minutes x6 AAROM, x10 AROM Comments self good form serratus punch Supine Exercise Name review HEP: chest press into SerrPress Side bilateral Resistance AROM Reps/Minutes 15 Sidelying Exercises open book Side left Reps/Minutes 10 Comments verbal cues scap depression Manual Therapy Treatment Soft Tissue Mobilization Post Body Location B UT, Mobilization Type Rolling,Strumming,Sustained Pressure,Trigger Point Release Intensity/Depth Moderate Body Position Supine Comments L>R focus R Sidelying UT focus w/ FM. Pec Body Location L pec major/minor, bicep, suprasp, infrasp, deltoid Mobilization Type Myofascial Release,Sustained Pressure Intensity/Depth Moderate Comments w/FM ABD. Joint Mobilizations SC Joint AP L Body Position Hooklying AC Joint AP clavical and post scap Grade II Body Position Hooklying Scapular Direction elevation, medial, lateral, depression, upward/downward rotation Grade II Body Position Sidelying Comments manual and MWM FF and ABD GH Joint B Body Position Hooklying Comments Post glide and IR FM PT-OP-R Modalities Start: 04/17/23 17:53 Freq: Status: Active Protocol: Document 06/02/23 11:56 NB (Rec: 06/02/23 13:15 [facility] [id number]) Hot Pack/Cold Pack Treatment Heat Location lumbothoracic Patient Position Hooklying Comments H/l w/ 90/90 LE bolster support PT-OP-T Assessment and Plan Start: 04/17/23 17:53 Freq: Status: Active Protocol: Document 07/04/23 09:29 NBM (Rec: 07/04/23 13:47 [facility] [id number]) Physical Therapy Assessment Goals activity tolerance Impairment - Correction Goal (LTG) Pt will report ability to use LUE more w/o inc of pain 06/10-pt reports dec pain overall LTG Duration 08/19 weakness Impairment weakness throughout trunk musculature Short Term Goal (STG) Pt will be indep w/HEP STG Duration achieved advancing as able College Associate Goal (LTG) Pt will score at least 1 full MMT for all movements of L shoulder and at least 3/5 EFT LTG Duration 08/19 Two Impairment AROM Impairment - Short Term Goal (STG) Pt will be able to raise UE to at least 107 and abd to at least 80 deg STG Duration achieved 06/10 College Associate Goal (LTG) Pt will be able to inc flex to at least 120 deg and abd to 90 w/o inc pain 06/10-achieved advance to at least 140 deg flex and 120 deg ab LTG Duration 08/19 1 Impairment 52.3 quick dash Short Term Goal (STG) Pt will improve Quick Dash score to no higher than 42 to show improved fucnctional ability. 06/10-54.5 STG Duration 07/17 College Associate Goal (LTG) Pt will improve Quick Dash score to no higher than 30 to show improved fucnctional ability. LTG Duration 08/19 Assessment Summary Assessment Serenity continues to requires occasional cues for Upper trapezius mm overactivation. She is unable to perform more than 10 reps today in sidelying of L arm abduction due to fatigue. She is reminded she can use ice as an option for pain and swelling management but declines today. Physical Therapy Plan Frequency and Duration Frequency of Treatment 1-2x/Week Duration of treatment (weeks) 10 Plan of Care Start Date 06/10/23 Plan of Care End Date 08/19/23 Therapeutic Interventions Therapeutic Interventions Balance Training,Gait Training ,Home Exercise Program,Joint Mobilizations,Manual Therapy, Neuromuscular Re-education, Patient/Caregiver Education, Self-Care/Home Management,Soft Tissue Mobilization,Taping, Therapeutic Activities, Therapeutic Exercises Modalities Cold Pack/Ice Massage,Electric Stimulation,Hot Packs, Infrared Therapy,Iontophoresis ,Ultrasound Next Visit Focus/Plan Next Note Type Treatment Note Next Visit Plan cont to advance ROM and progress strength as able. Manual to improved mechanics. Improve thoracic mobility and AC/SC jt mobility and GH mobility
--- NOTE | 2023-07-07 11:30 | PT.OTN ---
Current Diagnoses Other specific arthropathies, not elsewhere classified, left shoulder (07/07/23) Physical Therapy Treatment Note PT-OP-A Visit Information Start: 04/17/23 17:53 Freq: Status: Active Protocol: Document 07/07/23 10:30 NBM (Rec: 07/07/23 11:30 NBM [id number]) Out-Patient Physical Therapy Visit Information Visit Information Visit Type Treatment Note Visit Note 06/05 Pt late. Pt's sister is present throughout visit. Visit Start Time 10:34 Visit Stop Time 11:14 Total Visit Minutes 40 Visit Number 16 Number of PATIENT ACCOUNTS MANAGER Visits 3 PT-OP-B Current Condition Start: 04/17/23 17:53 Freq: Status: Active Protocol: Document 04/23/23 08:20 [facility] (Rec: 04/23/23 09:04 [facility] [id number]) Current Condition History of Current Condition Onset Date a couple years ago; worse after fall 1.5 month ago Current Complaints L shoulder pain History of Current Condition Pt had a fall in her garden and fell back on to her back and reached across body w/L arm to grab an umbrella. This was about a month and a half ago. It started to get really sore a couple days later. She took some ibuprofen. She has started seeing an ortho and follows up re: imagaing next week. Kavon likes to garden but can't raise her hand w/ anything in it. She cannot reach further than 90 into abd . She needs help washing her hair. She has been unable to do these things for a couple years, but it is now more painful since the fall to do these things. Even just sitting, she notes pain. Prior Treatments and Tests MRI: IMPRESSION: 1. 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 2. Acromioclavicular joint osteoarthritis. 3. Glenoid labral tearing. Treatment Goals Patient/Caregiver Goals get the arm where she can use it in all positions and get it strength PT-OP-C Subjective Start: 04/17/23 17:53 Freq: Status: Active Protocol: Document 07/07/23 10:30 NBM (Rec: 07/07/23 11:30 NBM [id number]) OP-PT Subjective Patient Comments Patient Comments Pt states she did not do arm ex's yesterday because she knew she was coming for PT today. She did glute and back ex's and feels pretty good. Her glutes are sore. PT-OP-J Posture/Palpation/Skin Start: 04/17/23 17:53 Freq: Status: Active Protocol: Document 04/23/23 08:20 [facility] (Rec: 04/23/23 09:04 [facility] [id number]) Posture Evaluation [facility] Postural Classification System [facility] Postural Classifications Posterior/Anterior Elbow Flexion Test 0 Comments Posture Comments EFT done seated PT-OP-K Range of Motion Start: 04/17/23 17:53 Freq: Status: Active Protocol: Document 06/10/23 07:31 [facility] (Rec: 06/10/23 11:00 [facility] [id number]) Shoulder Goniometric Range of Motion Shoulder Left Active Flexion 126 Extension 56 Abduction 93 External Rotation at 90 degrees 44 Abduction External Rotation at 0 degrees Abduction 34 Internal Rotation Behind Back (text) T7 Comments pain w/ROM PT-OP-M Strength Start: 04/17/23 17:53 Freq: Status: Active Protocol: Document 06/10/23 07:31 [facility] (Rec: 06/10/23 11:00 [facility] [id number]) Shoulder Strength Shoulder Manual Muscle Testing Right Flexion 4+ Good+ Extension 4+ Good+ Abduction (C5) 3+ Fair+ External Rotation 4 Good Internal Rotation 4- Good- Horizontal Adduction 4 Good Left Flexion 3+ Fair+ Extension 4 Good Abduction (C5) 3+ Fair+ External Rotation 3+ Fair+ Internal Rotation 4- Good- Horizontal Adduction 3+ Fair+ Comments pain Elbow/Forearm Strength Elbow and Forearm Manual Muscle Testing Left Flexion (C6) 4+ Good+ Extension (C7) 4 Good Comments pain w/flex Right Flexion (C6) 4+ Good+ Extension (C7) 4+ Good+ PT-OP-Q Treatments Start: 04/17/23 17:53 Freq: Status: Active Protocol: Document 07/07/23 10:30 NBM (Rec: 07/07/23 11:30 [facility] [id number]) Therapeutic Exercises Supine Exercises AAROM Supine Exercise Name AROM>AAROM with cane Side left Reps/Minutes x4 AROM, x10 AAROM Comments Pt uses UT overactivation w/ AROM serratus punch Supine Exercise Name review HEP: chest press into SerrPress Side bilateral Resistance AROM Reps/Minutes 15 Sidelying Exercises open book Side bilateral Reps/Minutes x12 Comments tactile cues scap depression Sitting Exercises ER Sitting Exercise Name 90 ABD/90 ER w/elbow on table Side left Reps/Minutes 10 x1, x3 Comments dc'd d/t muscle tiring Standing Exercises Karo Extension Standing Exercise Name straight arm ext Side bilateral Resistance orange Tb Reps/Minutes x15 Comments vc eccentric control, pain- free range of motion (not hyperextended) Wall slides Standing Exercise Name 1.flex wall slide lift off 2. abd Side left Reps/Minutes 1.6 2. 3 Comments vc scapular setting Rows Side bilateral Equipment Used orange band Reps/Minutes 15x Comments good form and control Manual Therapy Treatment Soft Tissue Mobilization Post Body Location L UT, L LS Mobilization Type Rolling,Strumming,Sustained Pressure,Trigger Point Release Intensity/Depth Moderate Body Position Sidelying Comments R Sidelying UT focus w/ FM. Pec Body Location L pec major/minor, bicep, suprasp, infrasp, deltoid Mobilization Type Myofascial Release,Sustained Pressure Intensity/Depth Moderate Body Position Sidelying Comments w/FM ABD. Joint Mobilizations AC Joint AP clavical and post scap Grade II Body Position Sidelying Scapular Direction elevation, medial, lateral, depression, upward/downward rotation Grade II Body Position Sidelying Comments manual and MWM FF and ABD GH Joint B Body Position Hooklying Comments Post glide and IR FM Self-Care/Home Management Treatment Education Other Education Discussed icing at home for pain and swelling management - can aim for 5 min to start with goal of 8-10 min. PT-OP-R Modalities Start: 04/17/23 17:53 Freq: Status: Active Protocol: Document 06/02/23 11:56 NBM (Rec: 06/02/23 13:15 [facility] [id number]) Hot Pack/Cold Pack Treatment Heat Location lumbothoracic Patient Position Hooklying Comments H/l w/ 90/90 LE bolster support PT-OP-T Assessment and Plan Start: 04/17/23 17:53 Freq: Status: Active Protocol: Document 07/07/23 10:30 NBM (Rec: 07/07/23 11:30 [facility] [id number]) Physical Therapy Assessment Goals activity tolerance Impairment - Regulatory Product Manager Goal (LTG) Pt will report ability to use LUE more w/o inc of pain 06/10-pt reports dec pain overall LTG Duration 08/19 weakness Impairment weakness throughout trunk musculature Short Term Goal (STG) Pt will be indep w/HEP STG Duration achieved advancing as able Regulatory Product Manager Goal (LTG) Pt will score at least 1 full MMT for all movements of L shoulder and at least 3/5 EFT LTG Duration 08/19 Two Impairment AROM Impairment - Short Term Goal (STG) Pt will be able to raise UE to at least 107 and abd to at least 80 deg STG Duration achieved 06/10 Regulatory Product Manager Goal (LTG) Pt will be able to inc flex to at least 120 deg and abd to 90 w/o inc pain 06/10-achieved advance to at least 140 deg flex and 120 deg ab LTG Duration 08/19 1 Impairment 52.3 quick dash Short Term Goal (STG) Pt will improve Quick Dash score to no higher than 42 to show improved fucnctional ability. 06/10-54.5 STG Duration 07/17 Regulatory Product Manager Goal (LTG) Pt will improve Quick Dash score to no higher than 30 to show improved fucnctional ability. LTG Duration 08/19 Assessment Summary Assessment Serenity demonstrates improved L shoulder pain-free ROM after manual therapy. UT overactivation w/ L shoulder AROM improves with modification to AAROM. She requires cues for upright posture with wall slides/lift off to avoid leaning backwards but shows improved self- awareness after cueing. She has good form with resisted shoulder rows but requires cues w/ resisted shoulder extension for pain-free range at jt by not doing shoulder hyperextension. Discussed icing at home for pain and swelling management - can aim for 5 min to start with goal of 8-10 min. Physical Therapy Plan Frequency and Duration Frequency of Treatment 1-2x/Week Duration of treatment (weeks) 10 Plan of Care Start Date 06/10/23 Plan of Care End Date 08/19/23 Therapeutic Interventions Therapeutic Interventions Balance Training,Gait Training ,Home Exercise Program,Joint Mobilizations,Manual Therapy, Neuromuscular Re-education, Patient/Caregiver Education, Self-Care/Home Management,Soft Tissue Mobilization,Taping, Therapeutic Activities, Therapeutic Exercises Modalities Cold Pack/Ice Massage,Electric Stimulation,Hot Packs, Infrared Therapy,Iontophoresis ,Ultrasound Next Visit Focus/Plan Next Note Type Treatment Note Next Visit Plan cont to advance ROM and progress strength as able. Manual to improved mechanics. Improve thoracic mobility and AC/SC jt mobility and GH mobility
--- NOTE | 2023-07-29 09:03 | PT.OTN ---
Current Diagnoses Other specific arthropathies, not elsewhere classified, left shoulder (07/29/23) Physical Therapy Treatment Note PT-OP-A Visit Information Start: 04/17/23 17:53 Freq: Status: Active Protocol: Document 07/29/23 07:46 [facility] (Rec: 07/29/23 09:03 [facility] [id number]) Out-Patient Physical Therapy Visit Information Visit Information Visit Type Progress Note Visit Note 11/05 Visit Start Time 08:20 Visit Stop Time 09:00 Total Visit Minutes 40 Visit Number 17 Number of TELEPHONE DIAPHRAGM ASSEMBLER Visits 0 PT-OP-B Current Condition Start: 04/17/23 17:53 Freq: Status: Active Protocol: Document 04/23/23 08:20 [facility] (Rec: 04/23/23 09:04 [facility] [id number]) Current Condition History of Current Condition Onset Date a couple years ago; worse after fall 1.5 month ago Current Complaints L shoulder pain History of Current Condition Pt had a fall in her garden and fell back on to her back and reached across body w/L arm to grab an umbrella. This was about a month and a half ago. It started to get really sore a couple days later. She took some ibuprofen. She has started seeing an ortho and follows up re: imagaing next week. Kavon likes to garden but can't raise her hand w/ anything in it. She cannot reach further than 90 into abd . She needs help washing her hair. She has been unable to do these things for a couple years, but it is now more painful since the fall to do these things. Even just sitting, she notes pain. Prior Treatments and Tests MRI: IMPRESSION: 1. 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 2. Acromioclavicular joint osteoarthritis. 3. Glenoid labral tearing. Treatment Goals Patient/Caregiver Goals get the arm where she can use it in all positions and get it strength PT-OP-C Subjective Start: 04/17/23 17:53 Freq: Status: Active Protocol: Document 07/29/23 07:46 [facility] (Rec: 07/29/23 09:03 [facility] [id number]) OP-PT Subjective Patient Comments Patient Comments Pt reports she still has pain but does feel like her ROm has imrpoved. Patient Questionnaires Quick Dash- Upper Extremity Quick Dash UE Score 54.5 PT-OP-J Posture/Palpation/Skin Start: 04/17/23 17:53 Freq: Status: Active Protocol: Document 04/23/23 08:20 [facility] (Rec: 04/23/23 09:04 [facility] [id number]) Posture Evaluation [facility] Postural Classification System [place] Postural Classifications Posterior/Anterior Elbow Flexion Test 0 Comments Posture Comments EFT done seated PT-OP-K Range of Motion Start: 04/17/23 17:53 Freq: Status: Active Protocol: Document 07/29/23 07:46 [facility] (Rec: 07/29/23 09:03 [facility] [id number]) Shoulder Goniometric Range of Motion Shoulder Right Active Flexion 130 Extension 74 Abduction 161 External Rotation at 90 degrees 78 Abduction External Rotation at 0 degrees Abduction 76 Internal Rotation 76 Internal Rotation Behind Back (text) T7 Left Active Flexion 112 Extension 56 Abduction 101 External Rotation at 90 degrees 56 Abduction External Rotation at 0 degrees Abduction 33 Internal Rotation Behind Back (text) T7 Comments pain w/ROM PT-OP-M Strength Start: 04/17/23 17:53 Freq: Status: Active Protocol: Document 07/29/23 07:46 [facility] (Rec: 07/29/23 09:03 [facility] [id number]) Shoulder Strength Shoulder Manual Muscle Testing Right Flexion 4+ Good+ Extension 5 Normal Abduction (C5) 3+ Fair+ External Rotation 4 Good Internal Rotation 5 Normal Horizontal Adduction 4+ Good+ Left Flexion 4- Good- Extension 4 Good Abduction (C5) 3+ Fair+ External Rotation 3+ Fair+ Internal Rotation 4+ Good+ Horizontal Adduction 4 Good Comments pain PT-OP-Q Treatments Start: 04/17/23 17:53 Freq: Status: Active Protocol: Document 07/29/23 07:46 [facility] (Rec: 07/29/23 09:03 [facility] [id number]) Gym Equipment Cable Column (Body Solid) Lat Pull Down Resistance 2 Reps/Time 8 Rows Details cues for scap Resistance 2 Reps/Time 8 Therapeutic Exercises Supine Exercises serratus punch Supine Exercise Name serratus punch Side bilateral Equipment Used 1# Reps/Minutes 10 Sidelying Exercises abd Side left Reps/Minutes 10 AROM Standing Exercises scaption Side left Equipment Used peach band Reps/Minutes 10 diagonals Standing Exercise Name 1. D1 2. D2 Side left Equipment Used peach band Reps/Minutes 1. 10 2. 5 abd Side left Equipment Used [place] band Reps/Minutes 10 flex Side left Equipment Used peach band Reps/Minutes 8 Manual Therapy Treatment Joint Mobilizations GH Joint L Body Position Supine Comments post glide & translation, inf glide and translation and lat gapping FM PT-OP-R Modalities Start: 04/17/23 17:53 Freq: Status: Active Protocol: Document 06/02/23 11:56 [facility] (Rec: 06/02/23 13:15 [facility] [id number]) Hot Pack/Cold Pack Treatment Heat Location lumbothoracic Patient Position Hooklying Comments H/l w/ 90/90 LE bolster support PT-OP-T Assessment and Plan Start: 04/17/23 17:53 Freq: Status: Active Protocol: Document 07/29/23 07:46 [facility] (Rec: 07/29/23 09:03 [facility] [id number]) Physical Therapy Assessment Goals activity tolerance Impairment - Half-Way Goal (LTG) Pt will report ability to use LUE more w/o inc of pain 06/10-pt reports dec pain overall 07/29-has been able to reach more; using it more: certain movements still hurt; lowering her arm hurts; reaching across stearing wheel hurts LTG Duration 09/23/23 weakness Impairment weakness throughout trunk musculature Short Term Goal (STG) Pt will be indep w/HEP STG Duration achieved advancing as able Half-Way Goal (LTG) Pt will score at least 1 full MMT for all movements of L shoulder and at least 3/5 EFT 07/29- 1/5 EFT; much improvment LTG Duration 09/23/23 Two Impairment AROM Impairment - Short Term Goal (STG) Pt will be able to raise UE to at least 107 and abd to at least 80 deg STG Duration achieved 06/10 Half-Way Goal (LTG) Pt will be able to inc flex to at least 120 deg and abd to 90 w/o inc pain 06/10-achieved advance to at least 140 deg flex and 120 deg ab 07/29-abd improved, LTG Duration 09/23/23 1 Impairment 52.3 quick dash Short Term Goal (STG) Pt will improve Quick Dash score to no higher than 42 to show improved fucnctional ability. 06/10-54.5 07/29-no change STG Duration 08/15 Half-Way Goal (LTG) Pt will improve Quick Dash score to no higher than 30 to show improved fucnctional ability. LTG Duration 09/23/23 Assessment Summary Assessment Pt is making good progress towards goals and is noting more functional ability w/L shoulder but does still c/o pain, whcih makes it harder to use L UE throguhout the day. She is showing improved strength and is able to tolearte more overhead activity. Cont PT to work on pt's functional ability and strength for reaching and overhead activities. Physical Therapy Plan Frequency and Duration Frequency of Treatment 1x/wk Duration of treatment (weeks) 8 Plan of Care Start Date 07/29/23 Plan of Care End Date 09/23/23 Therapeutic Interventions Therapeutic Interventions Balance Training,Gait Training ,Home Exercise Program,Joint Mobilizations,Manual Therapy, Neuromuscular Re-education, Patient/Caregiver Education, Self-Care/Home Management,Soft Tissue Mobilization,Taping, Therapeutic Activities, Therapeutic Exercises Modalities Cold Pack/Ice Massage,Electric Stimulation,Hot Packs, Infrared Therapy,Iontophoresis ,Ultrasound Next Visit Focus/Plan Next Note Type Treatment Note Next Visit Plan focus on strength and mobility for overhead activities; add new exercises to HEP if pt does okay w/them (band: flex, scaption, abd, s/l abd, supine punches)
--- NOTE | 2023-07-29 09:03 | PT.OPPOC ---
Physical, Occupational & Speech Therapy At [facility] Current Diagnoses Other specific arthropathies, not elsewhere classified, left shoulder (07/29/23) Visit Care Team Role Provider Type Joshua Cihn MD Family Provider Physician Primary Care Provider Specialty: Internal Medicine Address: [address] [place] [address], [address], [address] Email: [email or web address] Manuel Hernández MD Attending Provider Physician Referring Provider Specialty: Orthopedics Orthopedic Surgery Address: [address] [place] [address], [id number] Email: [email or web address] Of [email or web address] PT-OP-T Assessment and Plan Start: 04/17/23 17:53 Freq: Status: Active Protocol: Document 07/29/23 07:46 [facility] (Rec: 07/29/23 09:03 [facility] [id number]) Physical Therapy Assessment Goals activity tolerance Impairment - Night Shift Supervisor Goal (LTG) Pt will report ability to use LUE more w/o inc of pain 06/10-pt reports dec pain overall 07/29-has been able to reach more; using it more: certain movements still hurt; lowering her arm hurts; reaching across stearing wheel hurts LTG Duration 09/23/23 weakness Impairment weakness throughout trunk musculature Short Term Goal (STG) Pt will be indep w/HEP STG Duration achieved advancing as able Night Shift Supervisor Goal (LTG) Pt will score at least 1 full MMT for all movements of L shoulder and at least 3/5 EFT 07/29- 1/5 EFT; much improvment LTG Duration 09/23/23 Two Impairment AROM Impairment - Short Term Goal (STG) Pt will be able to raise UE to at least 107 and abd to at least 80 deg STG Duration achieved 06/10 Night Shift Supervisor Goal (LTG) Pt will be able to inc flex to at least 120 deg and abd to 90 w/o inc pain 06/10-achieved advance to at least 140 deg flex and 120 deg ab 07/29-abd improved, LTG Duration 09/23/23 1 Impairment 52.3 quick dash Short Term Goal (STG) Pt will improve Quick Dash score to no higher than 42 to show improved fucnctional ability. 06/10-54.5 07/29-no change STG Duration 08/15 Senior Living Goal (LTG) Pt will improve Quick Dash score to no higher than 30 to show improved fucnctional ability. LTG Duration 09/23/23 Assessment Summary Assessment Pt is making good progress towards goals and is noting more functional ability w/L shoulder but does still c/o pain, whcih makes it harder to use L UE throguhout the day. She is showing improved strength and is able to tolearte more overhead activity. Cont PT to work on pt's functional ability and strength for reaching and overhead activities. Physical Therapy Plan Frequency and Duration Frequency of Treatment 1x/wk Duration of treatment (weeks) 8 Plan of Care Start Date 07/29/23 Plan of Care End Date 09/23/23 Therapeutic Interventions Therapeutic Interventions Balance Training,Gait Training ,Home Exercise Program,Joint Mobilizations,Manual Therapy, Neuromuscular Re-education, Patient/Caregiver Education, Self-Care/Home Management,Soft Tissue Mobilization,Taping, Therapeutic Activities, Therapeutic Exercises Modalities Cold Pack/Ice Massage,Electric Stimulation,Hot Packs, Infrared Therapy,Iontophoresis ,Ultrasound Next Visit Focus/Plan Next Note Type Treatment Note Next Visit Plan focus on strength and mobility for overhead activities; add new exercises to HEP if pt does okay w/them (band: flex, scaption, abd, s/l abd, supine punches) Plan of Care Dates Plan of Care Start Date 07/29/23 Plan of Care End Date 09/23/23 Electronically Signed by: Tracey Cedeno, PT 07/29/23 0903 If you are in agreement with this Plan of Care, please return a signed and dated copy. I have reviewed this Plan of Care and certify that the skilled therapy services above are required to meet the patient?s needs. Physician Signature Date Printed Name and Credentials Clinical Instructor Signature Printed Name and Credentials
--- NOTE | 2023-08-20 12:16 | PT.OPDS ---
Current Diagnoses Other specific arthropathies, not elsewhere classified, left shoulder (07/29/23) Visit Care Team Role Provider Type Joshua Chin MD Family Provider Physician Primary Care Provider Specialty: Internal Medicine Address: [address] [place] [address], [facility] [address], [place], [address] Email: [email or web address] Manuel Hernández MD Attending Provider Physician Referring Provider Specialty: Orthopedics Orthopedic Surgery Address: [address] [place] [address], [place], [address] Email: [email or web address] Visit Number Visit Number 17 Discharge Summary PT-OP-B Current Condition Start: 04/17/23 17:53 Freq: Status: Active Protocol: Document 04/23/23 08:20 [facility] (Rec: 04/23/23 09:04 [facility] [id number]) Current Condition History of Current Condition Onset Date a couple years ago; worse after fall 1.5 month ago Current Complaints L shoulder pain History of Current Condition Pt had a fall in her garden and fell back on to her back and reached across body w/L arm to grab an umbrella. This was about a month and a half ago. It started to get really sore a couple days later. She took some ibuprofen. She has started seeing an ortho and follows up re: imagaing next week. Seh likes to garden but can't raise her hand w/ anything in it. She cannot reach further than 90 into abd . She needs help washing her hair. She has been unable to do these things for a couple years, but it is now more painful since the fall to do these things. Even just sitting, she notes pain. Prior Treatments and Tests MRI: IMPRESSION: 1. 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 2. Acromioclavicular joint osteoarthritis. 3. Glenoid labral tearing. Treatment Goals Patient/Caregiver Goals get the arm where she can use it in all positions and get it strength PT-OP-C Subjective Start: 04/17/23 17:53 Freq: Status: Active Protocol: Document 07/29/23 07:46 [facility] (Rec: 07/29/23 09:03 [facility] [id number]) OP-PT Subjective Patient Comments Patient Comments Pt reports she still has pain but does feel like her ROm has imrpoved. Patient Questionnaires Quick Dash- Upper Extremity Quick Dash UE Score 54.5 PT-OP-J Posture/Palpation/Skin Start: 04/17/23 17:53 Freq: Status: Active Protocol: Document 04/23/23 08:20 [facility] (Rec: 04/23/23 09:04 [facility] [id number]) Posture Evaluation [facility] Postural Classification System [facility] Postural Classifications Posterior/Anterior Elbow Flexion Test 0 Comments Posture Comments EFT done seated PT-OP-K Range of Motion Start: 04/17/23 17:53 Freq: Status: Active Protocol: Document 07/29/23 07:46 [facility] (Rec: 07/29/23 09:03 [facility] [id number]) Shoulder Goniometric Range of Motion Shoulder Right Active Flexion 130 Extension 74 Abduction 161 External Rotation at 90 degrees 78 Abduction External Rotation at 0 degrees Abduction 76 Internal Rotation 76 Internal Rotation Behind Back (text) T7 Left Active Flexion 112 Extension 56 Abduction 101 External Rotation at 90 degrees 56 Abduction External Rotation at 0 degrees Abduction 33 Internal Rotation Behind Back (text) T7 Comments pain w/ROM PT-OP-M Strength Start: 04/17/23 17:53 Freq: Status: Active Protocol: Document 07/29/23 07:46 [facility] (Rec: 07/29/23 09:03 [facility] [id number]) Shoulder Strength Shoulder Manual Muscle Testing Right Flexion 4+ Good+ Extension 5 Normal Abduction (C5) 3+ Fair+ External Rotation 4 Good Internal Rotation 5 Normal Horizontal Adduction 4+ Good+ Left Flexion 4- Good- Extension 4 Good Abduction (C5) 3+ Fair+ External Rotation 3+ Fair+ Internal Rotation 4+ Good+ Horizontal Adduction 4 Good Comments pain PT-OP-T Assessment and Plan Start: 04/17/23 17:53 Freq: Status: Active Protocol: Document 08/20/23 12:15 [facility] (Rec: 08/20/23 12:16 [facility] [id number]) Physical Therapy Assessment Goals activity tolerance Impairment - Care Home Goal (LTG) Pt will report ability to use LUE more w/o inc of pain 06/10-pt reports dec pain overall 07/29-has been able to reach more; using it more: certain movements still hurt; lowering her arm hurts; reaching across stearing wheel hurts LTG Duration 09/23/23 weakness Impairment weakness throughout trunk musculature Short Term Goal (STG) Pt will be indep w/HEP STG Duration achieved advancing as able Correctional Nurse Goal (LTG) Pt will score at least 1 full MMT for all movements of L shoulder and at least 3/5 EFT 07/29- 1/5 EFT; much improvment LTG Duration 09/23/23 Two Impairment AROM Impairment - Short Term Goal (STG) Pt will be able to raise UE to at least 107 and abd to at least 80 deg STG Duration achieved 06/10 Correctional Nurse Goal (LTG) Pt will be able to inc flex to at least 120 deg and abd to 90 w/o inc pain 06/10-achieved advance to at least 140 deg flex and 120 deg ab 07/29-abd improved, LTG Duration 09/23/23 1 Impairment 52.3 quick dash Short Term Goal (STG) Pt will improve Quick Dash score to no higher than 42 to show improved fucnctional ability. 06/10-54.5 07/29-no change STG Duration 08/15 Correctional Nurse Goal (LTG) Pt will improve Quick Dash score to no higher than 30 to show improved fucnctional ability. LTG Duration 09/23/23 Assessment Summary Assessment Patient called Aug 04 to cancel next PT visit, which she thought was in October. Reports that she is having surgery and is unable to do PT at this time. DC PT d/t pt request. Pt has made good progress w/ PT at this time and was doing well with HEP w/ occ cues needed at last visit, but overall improved ROM and strength since IE. Physical Therapy Plan Discharge Physical Therapy Discharge Reasons Patient Request
== END 2023-08-22 13:20 | disposition home or self-care (01) ==
LOC: PHYS 08:15
PROVIDERS: Family Provider Internal Medicine; PCP Internal Medicine; Referring Provider Orthopaedic Surgery; Visit Provider Orthopaedic Surgery
DX: M12.812 Other specific arthropathies, not elsewhere classified, left shoulder (principal)
CPT/HCPCS: 95851; 97110; 97140; 97162; 97535

== ENCOUNTER → 2023-08-01 09:42 | Outpatient (CLI) | payer MEDICARE, OTHER, SELFPAY ==
--- NOTE | 2023-08-01 09:43 | DI.RAD.S_ITS ---
PROCEDURE: XR DEXA AXIAL SKELETON INDICATIONS: Screening for Osteoporosis COMPARISON: [facility], CM, XR DEXA AXIAL SKELETON, 07/24/2021, 15:35. [facility], CM, DEXA AXIAL SKELETON, 05/24/2014, 14:03. FINDINGS: This blank DEXA report has been sent in error by the PACS system. The correct and complete report will be forthcoming in 1-2 days. Thank you for your patience and understanding. Dictated by: Darron Mabry M.D. on 08/04/2023 at 16:01 Approved by: Darron Mabry M.D. on 08/04/2023 at 16:01
--- NOTE | 2023-08-01 10:00 | DI.DEXA.S_ITS ---
Bone Density Report Name: SOMMER FREED Age: 77 Sex: Female Ethnicity: White Date of : 1945 Indication: osteopenia; parental hip fracture; Referring Provider: RICH SANCHEZ Study: Bone densitometry was performed. Exam Date: August 01, 2023 Accession number: [id number] Bone Density: Region BMD T-score Z-score Classification AP Spine(L1, L2) 1.008 0.3 2.6 Normal Femoral Neck (Left) 0.744 -0.9 1.2 Normal Total Hip (Left) 0.795 -1.2 0.7 Osteopenia Femoral Neck (Right) 0.941 0.8 3.0 Normal Total Hip (Right) 0.896 -0.4 1.5 Normal Total Hip Mean 0.845 -0.8 1.1 Normal World Health Organization criteria for BMD impression classify patients as: Normal (T-score at or above -1.0), Osteopenia (T-score between -1.0 and -2.5), or Osteoporosis (T-score at or below -2.5). 10-year Fracture Risk(1): Major Osteoporotic Fracture 14% Hip Fracture 6.2% Reported Risk Factors: [place] (), Neck BMD=0.744, BMI=19.2, parental fracture (1) FRAX(R) Version 3.08. Fracture probability calculated for an untreated patient. Fracture probability may be lower if the patient has received treatment. Previous Exams: -- Region Exam Age BMD T-score BMD Change BMD Change Date g/cm2 vs Baseline vs Previous -- AP Spine (L1-L2) 08/01/2023 77 1.008 0.3 -0.085 (-7.8%)# -0.085 (-7.8%)# 07/24/2021 75 1.094 1.0 Total Hip(Left) 08/01/2023 77 0.795 -1.2 -0.010 (-1.2%)# -0.010 (-1.2%)# 07/24/2021 75 0.805 -1.1 Total Hip(Right) 08/01/2023 77 0.896 -0.4 0.052 (6.2%)# 0.052 (6.2%)# 07/24/2021 75 0.844 -0.8 -- *Denotes significance at 95% confidence level, LSC for AP Spine = 0.022 g/cm2, LSC for Total Hip = 0.027 g/cm2 # Denotes dissimilar scan types or analysis methods Impression: The patient has low bone mass, based on the Left Total Hip T-score. The patient has an estimated ten-year risk of hip fracture of 6.2% and an estimated ten-year risk of major fracture of 14%, based on the WHO FRAX algorithm. The patient has risk factors, including: parental hip fracture. No significant bone loss was observed. Discussion: BONE DENSITY IS LOW AT ONE OR MORE SKELETAL SITES. THE PATIENT'S BMD AND CLINICAL RISK FACTORS CONTRIBUTE TO THIS PATIENT'S INCREASED RISK OF FRACTURE. This patient's lowest T-score is low at one or more skeletal sites. It meets the World Health Organization's (WHO) criteria for ?low bone mass? (T-score between -1.0 and -2.5). The patient's 10-year risk of hip fracture as calculated by FRAX exceeds the threshold where pharmacological therapy is recommended by the National Osteoporosis Foundation (NOF). However, all treatment decisions require clinical judgment and consideration of individual patient factors, including patient preferences, comorbidities, previous drug use, risk factors not captured in the FRAX model (e.g., frailty, falls, vitamin D deficiency, increased bone turnover, interval significant decline in bone density) and possible under or overestimation of fracture risk by FRAX. The patient should follow a healthful lifestyle (good nutrition with adequate calcium and vitamin D, and appropriate weight-bearing exercise). Follow-Up: Consider a repeat BMD and Vertebral Fracture Assessment (VFA) exam in 2 years or sooner if medically necessary, to reassess this patient's status. Reported by: RIVAS ARANGO MD on 08/01/2023 10:16:00 AM.
== END ==
PROVIDERS: Family Provider Internal Medicine; PCP Internal Medicine; Referring Provider Internal Medicine; Visit Provider Internal Medicine
DX: M81.0 Age-related osteoporosis without current pathological fracture (principal)
CPT/HCPCS: 77080

== ENCOUNTER → 2023-08-20 11:44 | Outpatient (CLI) | payer MEDICARE, OTHER, SELFPAY ==
[2023-08-20 13:45] LABS: Alanine Aminotransferase 15 IU/L (<35); Albumin 4.4 g/dL (3.5-5.0); Albumin Globulin Ratio 2.2 (1.0-2.8); Alkaline Phosphatase 90 U/L (38-126); Aspartate Aminotransferase 29 IU/L (14-36); BUN Creatinine Ratio 18.7 (6-22); Bilirubin Total 0.3 mg/dL (0.2-1.3); Blood Urea Nitrogen 17 mg/dL (7-17); Calcium 10.6 mg/dL (8.4-10.2); Carbon Dioxide 29 mmol/L (22-32); Chloride 95 mmol/L (98-107); Estimated Glomerular Filt Rate > 60 mL/min (>60); Glucose 102 mg/dL (80-110); HEMOLYSIS < 15 (0-50); Potassium 4.6 mmol/L (3.4-5.1); Sodium 131 mmol/L (137-145); Total Protein 6.4 g/dL (6.3-8.2)
== END ==
PROVIDERS: Family Provider Internal Medicine; PCP Internal Medicine; Referring Provider Specialist; Visit Provider Specialist
DX: I49.3 Ventricular premature depolarization (principal); B33.24 Viral cardiomyopathy; R00.2 Palpitations; N18.2 Chronic kidney disease, stage 2 (mild)
CPT/HCPCS: 36415; 80053; 83735

== ENCOUNTER 2023-10-07 14:30 | Outpatient (RCR) | payer MEDICARE, OTHER, SELFPAY ==
--- NOTE | 2023-09-02 16:02 | PT.OPPOC ---
Physical, Occupational & Speech Therapy At [facility] Current Diagnoses Unspecified disorder of synovium and tendon, right thigh (09/02/23) Difficulty in walking, not elsewhere classified (09/02/23) Weakness (09/02/23) Visit Care Team Role Provider Type Joshua Chin MD Family Provider Physician Primary Care Provider Specialty: Internal Medicine Address: [address] [place] [address], [facility] [address], [place], [address] Email: [email or web address] Spencer Burciaga MD Attending Provider Physician Referring Provider Specialty: Orthopedics Orthopedic Surgery Address: [address] [place] [address], [address] Email: [email or web address] Plan Of Care PT-OP-T Assessment and Plan Start: 09/01/23 15:00 Freq: Status: Active Protocol: Document 09/02/23 15:02 [facility] (Rec: 09/02/23 16:18 [facility] [id number]) Physical Therapy Assessment Rehab Potential Rehabilitation Potential Good Evaluation Complexity Number of Personal Factors/Comorbidities 1-2 Number of Body Systems Impaired 3 Clinical Presentation at Evaluation Stable Impairments Impairments Gait,Pain,Strength Goals activity tolerance Impairment lower extremity functional scale (LEFS) 24% Short Term Goal (STG) Improve LEFS to at least 35% as measure of improved LE function and activity tolerance STG Duration 10/02/23 Senior Care Goal (LTG) Improve LEFS to at least 50% as measure of improved LE function and activity tolerance Two Impairment right hip weakness Impairment most significant hip abduction 2+/5, extension 3/5 Short Term Goal (STG) Patient to be instructed in HEP with emphasis on hip strengthening STG Duration 10/02/23 Senior Care Goal (LTG) Patient to be independent and compliant with HEP and demonstrate improved hip strength to at least 4/5 all motions for improved function LTG Duration 11/02/23 1 Impairment gait dysfunction Impairment Trendelenberg right even with use of SPC Short Term Goal (STG) Problem-solve most appropriate gait device and instruct in pre-gait activities with emphasis on gluteal activation STG Duration 10/02/23 Sales Account Associate Goal (LTG) Patient to be able to ambulate with minimal to no Trendelenberg with least restrictive device LTG Duration 11/02/23 Assessment Summary Assessment Patient presents to PT with function limiting weakness and pain right hip with no history of injury or trauma. Additionally with gait patient has drop foot on the left. Patient is currently preparing for left foot surgery in October so she will be relying on her right LE. Would like to improve her strength and function right hip. Discussed that she has had weakness 5+ years so unlikely she will be able to regain full strength back. Added ther ex to current HEP: hip AB standing and supine (unable to do right sidelying), supine clam with L2 TB. Patient is highly motivated. Discussed POC and patient is in agreement. Physical Therapy Plan Frequency and Duration Frequency of Treatment 2x/Week Duration of treatment (weeks) 8 Plan of Care Start Date 09/02/23 Plan of Care End Date 11/02/22 Therapeutic Interventions Therapeutic Interventions Balance Training,Gait Training ,Home Exercise Program,Manual Therapy,Neuromuscular Re- education,Patient/Caregiver Education,Self-Care/Home Management,Taping,Therapeutic Activities,Therapeutic Exercises Modalities Cold Pack/Ice Massage,Hot Packs Next Visit Focus/Plan Next Note Type Treatment Note Next Visit Plan review clamshell and supine hip abd ex, work on functional pre-gait wt shift with emphasis on neutral hip and pelvis, SLS with visual feedback (add to HEP). Consider KT tape to glut med for facil. Plan of Care Dates Plan of Care Start Date 09/02/23 Plan of Care End Date 11/02/22 Electronically Signed by: Opal Tineo, PT 09/03/23 0850 If you are in agreement with this Plan of Care, please return a signed and dated copy. I have reviewed this Plan of Care and certify that the skilled therapy services above are required to meet the patient?s needs. Physician Signature Date Printed Name and Credentials Clinical Instructor Signature Printed Name and Credentials
--- NOTE | 2023-09-02 16:02 | PT.OIE ---
Current Diagnoses Unspecified disorder of synovium and tendon, right thigh (09/02/23) Difficulty in walking, not elsewhere classified (09/02/23) Weakness (09/02/23) Past Medical History (Last Reviewed 08/01/23 @ 14:26 by Tee Sheridan MD) Cancer Cataracts, bilateral (~2015) Chicken pox Chronic hyponatremia Chronic renal failure, stage 3 (moderate) Constipation Cyclothymia Depression Dysphagia Fecal incontinence (~2014) Fractures (~2004) Gastroesophageal reflux disease with esophagitis Genital warts (~1984) Heart palpitations History of urinary incontinence (~2014) Incomplete left bundle branch block (LBBB) Lumbar spinal stenosis Measles Mixed urge and stress incontinence Osteopenia Osteoporosis, unspecified Overactive bladder Sciatica Urge incontinence Urinary frequency UTI (urinary tract infection) Viral cardiomyopathy Weight loss Past Surgical History (Last Reviewed 08/01/23 @ 14:26 by Tee Sheridan MD) Anesthesia H/O hernia repair History of vaginal hysterectomy (~1996) Melanoma (~1981) Visit Care Team Role Provider Type Joshua Chin MD Family Provider Physician Primary Care Provider Specialty: Internal Medicine Address: [address] [place] [address], [address], [address] Email: [email or web address] Spencer Burciaga MD Attending Provider Physician Referring Provider Specialty: Orthopedics Orthopedic Surgery Address: [address] [place] [address], [address] Email: [email or web address] Physical Therapy Initial Evaluation PT-OP-A Visit Information Start: 09/01/23 15:00 Freq: Status: Active Protocol: Document 09/02/23 15:02 [facility] (Rec: 09/02/23 16:18 [facility] [id number]) Out-Patient Physical Therapy Visit Information Visit Information Visit Type Initial Evaluation Visit Start Time 15:02 Visit Stop Time 15:45 Total Visit Minutes 43 Visit Number 1 Evaluation Information Evaluation Date 09/02/23 Precautions Precautions low bone density, foot drop, history depression, arthritis, falls PT-OP-B Current Condition Start: 09/01/23 15:00 Freq: Status: Active Protocol: Document 09/02/23 15:02 [facility] (Rec: 09/02/23 16:18 [facility] [id number]) Current Condition History of Current Condition Onset Date 5+ years Current Complaints right hip pain and weakness History of Current Condition no injury. Using cane about 2 years. Having major L foot surgery November 04 and wants to be stronger to be able to recover. Does band exercises for UE's, also does exercises for her back and hips. 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 [employer] no limitations Functional Limitations- Recreation/ walking painful, limited Hobbies distance PT-OP-C Subjective Start: 09/01/23 15:00 Freq: Status: Active Protocol: Document 09/02/23 15:02 [facility] (Rec: 09/02/23 16:18 [facility] [id number]) Patient Questionnaires Lower Extremity Functional Scale LEFS Score 24 OP-PT Pain Assessment Pain Assessment Grid Paper Pain Assessment Grid Completed Yes Location right hip, buttock, anterior thigh Pain Location Details see pain chart Intensity 4 PT-OP-G Mobility & Gait Start: 09/01/23 15:00 Freq: Status: Active Protocol: Document 09/02/23 15:02 [facility] (Rec: 09/02/23 16:18 [facility] [id number]) OP Gait Assessment Gait Gait Assistance Required: Independent Assistive Devices Assistive Device Straight Cane Gait Deviations General Gait Pattern Antalgic,Lateral Trunk Lean Comments Gait Comments drop foot Stair Climbing Evaluation Evaluation Level of Assist On Stairs Independent Devices Stair Climbing Assistive Devices Left Railing Technique/Endurance Stair Climbing Direction Ascend and Descend Stair Climbing Technique Step Over Step PT-OP-H Neuro Start: 09/01/23 15:00 Freq: Status: Active Protocol: Document 09/02/23 15:02 [facility] (Rec: 09/02/23 16:18 [facility] [id number]) Sensation Evaluation Gross Sensation Gross Sensation WNL PT-OP-J Posture/Palpation/Skin Start: 09/01/23 15:00 Freq: Status: Active Protocol: Document 09/02/23 15:02 [facility] (Rec: 09/02/23 16:18 [facility] [id number]) Posture Evaluation Position Standing Head/C-Spine Posture Forward Head Thorax Posture (R) Prominent L-Spine Posture Increased Lordosis Shoulder Posture (L) Rounded,(R) Rounded Scapula Posture (R) Protracted,(L) Retracted Arm Posture (L) Internally Rotated,(R) Internally Rotated Pelvis Posture Anteriorly Tilted Ankle/Foot Posture (L) Forefoot Adducted Foot Arch (L) Low Arch,(R) Low Arch Palpation Assessment Location gr trochanter Palpation Findings Tenderness PT-OP-K Range of Motion Start: 09/01/23 15:00 Freq: Status: Active Protocol: Document 09/02/23 15:02 [facility] (Rec: 09/02/23 16:18 [facility] [id number]) Lumbar Spine Range of Motion Lumbar Spine Active Comments mod dec all motions Hip Goniometric Range of Motion Hip Right Hip ROM WFL Yes Left Hip ROM WFL Yes Knee Goniometric Range of Motion Knee zachery Knee ROM WFL Yes Ankle and Foot Goniometric Range of Motion Ankle and Foot zachery Ankle/Foot ROM WFL Yes PT-OP-L Special Tests Start: 09/01/23 15:00 Freq: Status: Active Protocol: Document 09/02/23 15:02 [facility] (Rec: 09/02/23 16:18 [facility] [id number]) Special Tests Hip Special Tests Piriformis Test Results neg Scour Test Test Results neg FLACO Test Results neg Trendelenberg Test Results +R Comments significant R lateral trunk lean and L hip drop during stance phase of gait right PT-OP-M Strength Start: 09/01/23 15:00 Freq: Status: Active Protocol: Document 09/02/23 15:02 [facility] (Rec: 09/02/23 16:18 [facility] [id number]) Cervical Spine Strength Cervical Spine Manual Muscle Testing Flexion (C1-2) 4- Good- Extension 4- Good- Hip Strength Hip Manual Muscle Testing Right Flexion (L2) 3+ Fair+ Extension (S1) 3- Fair- Abduction 2+ Poor+ Adduction 3+ Fair+ External Rotation 3+ Fair+ Internal Rotation 3+ Fair+ Left Flexion (L2) 4 Good Extension (S1) 3+ Fair+ Abduction 4- Good- Adduction 4+ Good+ External Rotation 4- Good- Internal Rotation 4- Good- Knee Strength Knee Manual Muscle Testing Right Flexion (S2) 4+ Good+ Extension (L3) 4+ Good+ Left Flexion (S2) 5 Normal Extension (L3) 5 Normal Ankle/Foot Strength Ankle and Foot Manual Muscle Testing Right Dorsiflexion (L4) 4 Good Plantarflexion (S1) 4 Good Left Dorsiflexion (L4) 4 Good Plantarflexion (S1) 4 Good Comments functionally drop foot with gait with excess forefoot adduction PT-OP-Q Treatments Start: 09/01/23 15:00 Freq: Status: Active Protocol: Document 09/02/23 15:02 [facility] (Rec: 09/02/23 16:18 [facility] [id number]) Self-Care/Home Management Treatment Education Patient Education Home Exercise Program,Posture Other Education HO with supine zachery and unil clam, supine hip abduction PT-OP-T Assessment and Plan Start: 09/01/23 15:00 Freq: Status: Active Protocol: Document 09/02/23 15:02 [facility] (Rec: 09/02/23 16:18 [facility] [id number]) Physical Therapy Assessment Rehab Potential Rehabilitation Potential Good Evaluation Complexity Number of Personal Factors/Comorbidities 1-2 Number of Body Systems Impaired 3 Clinical Presentation at Evaluation Stable Impairments Impairments Gait,Pain,Strength Goals activity tolerance Impairment lower extremity functional scale (LEFS) 24% Short Term Goal (STG) Improve LEFS to at least 35% as measure of improved LE function and activity tolerance STG Duration 10/02/23 [facility] Goal (LTG) Improve LEFS to at least 50% as measure of improved LE function and activity tolerance Two Impairment right hip weakness Impairment most significant hip abduction 2+/5, extension 3/5 Short Term Goal (STG) Patient to be instructed in HEP with emphasis on hip strengthening STG Duration 10/02/23 Pharmacology Teacher Goal (LTG) Patient to be independent and compliant with HEP and demonstrate improved hip strength to at least 4/5 all motions for improved function LTG Duration 11/02/23 1 Impairment gait dysfunction Impairment Trendelenberg right even with use of SPC Short Term Goal (STG) Problem-solve most appropriate gait device and instruct in pre-gait activities with emphasis on gluteal activation STG Duration 10/02/23 [facility] Goal (LTG) Patient to be able to ambulate with minimal to no Trendelenberg with least restrictive device LTG Duration 11/02/23 Assessment Summary Assessment Patient presents to PT with function limiting weakness and pain right hip with no history of injury or trauma. Additionally with gait patient has drop foot on the left. Patient is currently preparing for left foot surgery in October so she will be relying on her right LE. Would like to improve her strength and function right hip. Discussed that she has had weakness 5+ years so unlikely she will be able to regain full strength back. Added ther ex to current HEP: hip AB standing and supine (unable to do right sidelying), supine clam with L2 TB. Patient is highly motivated. Discussed POC and patient is in agreement. Physical Therapy Plan Frequency and Duration Frequency of Treatment 2x/Week Duration of treatment (weeks) 8 Plan of Care Start Date 09/02/23 Plan of Care End Date 11/02/22 Therapeutic Interventions Therapeutic Interventions Balance Training,Gait Training ,Home Exercise Program,Manual Therapy,Neuromuscular Re- education,Patient/Caregiver Education,Self-Care/Home Management,Taping,Therapeutic Activities,Therapeutic Exercises Modalities Cold Pack/Ice Massage,Hot Packs Next Visit Focus/Plan Next Note Type Treatment Note Next Visit Plan review clamshell and supine hip abd ex, work on functional pre-gait wt shift with emphasis on neutral hip and pelvis, SLS with visual feedback (add to HEP). Consider KT tape to glut med for facil.
--- NOTE | 2023-09-05 11:11 | PT.OTN ---
Current Diagnoses Unspecified disorder of synovium and tendon, right thigh (09/05/23) Difficulty in walking, not elsewhere classified (09/05/23) Weakness (09/05/23) Physical Therapy Treatment Note PT-OP-A Visit Information Start: 09/01/23 15:00 Freq: Status: Active Protocol: Document 09/05/23 09:46 NBM (Rec: 09/05/23 11:10 NBM [id number]) Out-Patient Physical Therapy Visit Information Visit Information Visit Type Treatment Note Visit Start Time 10:01 Visit Stop Time 10:45 Total Visit Minutes 44 Visit Number 2 Number of PLANER OPERATOR Visits 1 Evaluation Information Evaluation Date 09/02/23 Precautions Precautions low bone density, foot drop, history depression, arthritis, falls PT-OP-B Current Condition Start: 09/01/23 15:00 Freq: Status: Active Protocol: Document 09/02/23 15:02 SAK (Rec: 09/02/23 16:18 SAK [id number]) Current Condition History of Current Condition Onset Date 5+ years Current Complaints right hip pain and weakness History of Current Condition no injury. Using cane about 2 years. Having major L foot surgery November 04 and wants to be stronger to be able to recover. Does band exercises for UE's, also does exercises for her back and hips. 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 She is mixing up her hip and leg ex's with her shoulder ex's. She wants to improve her leg strength before her foot surgery in preparation for using a walker or transport wheelchair during recovery, and wonders abour ankle weights. PT-OP-G Mobility & Gait Start: 09/01/23 15:00 Freq: Status: Active Protocol: Document 09/02/23 15:02 [facility] (Rec: 09/02/23 16:18 [facility] [id number]) OP Gait Assessment Gait Gait Assistance Required: Independent Assistive Devices Assistive Device Straight Cane Gait Deviations General Gait Pattern Antalgic,Lateral Trunk Lean Comments Gait Comments drop foot Stair Climbing Evaluation Evaluation Level of Assist On Stairs Independent Devices Stair Climbing Assistive Devices Left Railing Technique/Endurance Stair Climbing Direction Ascend and Descend Stair Climbing Technique Step Over Step PT-OP-H Neuro Start: 09/01/23 15:00 Freq: Status: Active Protocol: Document 09/02/23 15:02 [facility] (Rec: 09/02/23 16:18 [facility] [id number]) Sensation Evaluation Gross Sensation Gross Sensation WNL PT-OP-J Posture/Palpation/Skin Start: 09/01/23 15:00 Freq: Status: Active Protocol: Document 09/02/23 15:02 [facility] (Rec: 09/02/23 16:18 [facility] [id number]) Posture Evaluation Position Standing Head/C-Spine Posture Forward Head Thorax Posture (R) Prominent L-Spine Posture Increased Lordosis Shoulder Posture (L) Rounded,(R) Rounded Scapula Posture (R) Protracted,(L) Retracted Arm Posture (L) Internally Rotated,(R) Internally Rotated Pelvis Posture Anteriorly Tilted Ankle/Foot Posture (L) Forefoot Adducted Foot Arch (L) Low Arch,(R) Low Arch Palpation Assessment Location gr trochanter Palpation Findings Tenderness PT-OP-K Range of Motion Start: 09/01/23 15:00 Freq: Status: Active Protocol: Document 09/02/23 15:02 [facility] (Rec: 09/02/23 16:18 [facility] [id number]) Lumbar Spine Range of Motion Lumbar Spine Active Comments mod dec all motions Hip Goniometric Range of Motion Hip Right Hip ROM WFL Yes Left Hip ROM WFL Yes Knee Goniometric Range of Motion Knee zachery Knee ROM WFL Yes Ankle and Foot Goniometric Range of Motion Ankle and Foot zachrey Ankle/Foot ROM WFL Yes PT-OP-L Special Tests Start: 09/01/23 15:00 Freq: Status: Active Protocol: Document 09/02/23 15:02 [facility] (Rec: 09/02/23 16:18 SAK [id number]) Special Tests Hip Special Tests Piriformis Test Results neg Scour Test Test Results neg FLACO Test Results neg Trendelenberg Test Results +R Comments significant R lateral trunk lean and L hip drop during stance phase of gait right PT-OP-M Strength Start: 09/01/23 15:00 Freq: Status: Active Protocol: Document 09/02/23 15:02 [facility] (Rec: 09/02/23 16:18 [facility] [id number]) Cervical Spine Strength Cervical Spine Manual Muscle Testing Flexion (C1-2) 4- Good- Extension 4- Good- Hip Strength Hip Manual Muscle Testing Right Flexion (L2) 3+ Fair+ Extension (S1) 3- Fair- Abduction 2+ Poor+ Adduction 3+ Fair+ External Rotation 3+ Fair+ Internal Rotation 3+ Fair+ Left Flexion (L2) 4 Good Extension (S1) 3+ Fair+ Abduction 4- Good- Adduction 4+ Good+ External Rotation 4- Good- Internal Rotation 4- Good- Knee Strength Knee Manual Muscle Testing Right Flexion (S2) 4+ Good+ Extension (L3) 4+ Good+ Left Flexion (S2) 5 Normal Extension (L3) 5 Normal Ankle/Foot Strength Ankle and Foot Manual Muscle Testing Right Dorsiflexion (L4) 4 Good Plantarflexion (S1) 4 Good Left Dorsiflexion (L4) 4 Good Plantarflexion (S1) 4 Good Comments functionally drop foot with gait with excess forefoot adduction PT-OP-Q Treatments Start: 09/01/23 15:00 Freq: Status: Active Protocol: Document 09/05/23 09:46 NBM (Rec: 09/05/23 11:10 NBM [id number]) Therapeutic Exercises Supine Exercises bicycle Reps/Minutes x30 sec Comments LLE alignment cues bridging Supine Exercise Name HEP review Reps/Minutes 8x 3-5s hold single leg bridge Supine Exercise Name HEP review Side bilateral Reps/Minutes L stance x8, R stance x10 clamshell Supine Exercise Name alternating Side bilateral Equipment Used Lvl 3 green Tb (pt states was given this for HEP) Reps/Minutes x10 ea Comments cues for PPT Sidelying Exercises clamshell Sidelying Exercise Name HEP review Side bilateral Resistance gravity-resisted Reps/Minutes L 2x8 ea R x8, x5 Comments HEP modified to 2x5 ea Standing Exercises hip extension Standing Exercise Name HEP review Side bilateral Reps/Minutes 2x5 hip abduction Standing Exercise Name HEP review Side bilateral Reps/Minutes x8 ea Comments to fatigue, cue for minimal range Self-Care/Home Management Treatment Education Other Education HEP review today of standing hip abd and ext; supine bridging (DL and SL), clamshell w/ Lvl 3 green Tb, abduction, and bicycle; and s/ l clamshell w/ straight legs. Pt wants to improve her leg strength before her foot surgery in preparation for using a walker or transport wheelchair during recovery and asks about ankle weights - discussed current HEP ex's are challenging enough without addition of ankle weights to current ex's and explained biomechanics to hip muscles and joint of adding 1# at ankle versus above knee. Pt may consider seated marching with ankle weights focusing on LE alignment and eccentric control. For use of FWW and pt 's concern w/ strengthening triceps explained how pt can use home Tb to perform tricep extension ex. PT-OP-T Assessment and Plan Start: 09/01/23 15:00 Freq: Status: Active Protocol: Document 09/05/23 09:46 YESENIA (Rec: 09/05/23 11:10 [facility] [id number]) Physical Therapy Assessment Goals activity tolerance Impairment lower extremity functional scale (LEFS) 24% Short Term Goal (STG) Improve LEFS to at least 35% as measure of improved LE function and activity tolerance STG Duration 10/02/23 Product Support Sales Representative Goal (LTG) Improve LEFS to at least 50% as measure of improved LE function and activity tolerance Two Impairment right hip weakness Impairment most significant hip abduction 2+/5, extension 3/5 Short Term Goal (STG) Patient to be instructed in HEP with emphasis on hip strengthening STG Duration 10/02/23 Alf Goal (LTG) Patient to be independent and compliant with HEP and demonstrate improved hip strength to at least 4/5 all motions for improved function LTG Duration 11/02/23 1 Impairment gait dysfunction Impairment Trendelenberg right even with use of SPC Short Term Goal (STG) Problem-solve most appropriate gait device and instruct in pre-gait activities with emphasis on gluteal activation STG Duration 10/02/23 Product Support Sales Representative Goal (LTG) Patient to be able to ambulate with minimal to no Trendelenberg with least restrictive device LTG Duration 11/02/23 Assessment Summary Assessment Treatment focus on HEP review for LE strengthening and education for overall stregthening in preparation for foot surgery and use of FWW or transport w/c during recovery. Serenity requires cues with standing and supine hip abduction for neutral foot positioning R>L due to excessive hip external rotation and is able to self- correct with cueing until fatigued. She demonstrates R>L gluteal weakness as with sidelying clamshells and ex's are modified from x10 to 2x5 to improve form throughout. HEP review today of standing hip abd and ext; supine bridging (DL and SL), clamshell w/ Lvl 3 green Tb, abduction, and bicycle; and s/ l clamshell w/ straight legs. Pt wants to improve her leg strength before her foot surgery in preparation for using a walker or transport wheelchair during recovery and asks about ankle weights - discussed current HEP ex's are challenging enough without addition of ankle weights to current ex's and explained biomechanics to hip muscles and joint of adding 1# at ankle versus above knee. Pt may consider seated marching with ankle weights focusing on LE alignment and eccentric control. Physical Therapy Plan Frequency and Duration Frequency of Treatment 2x/Week Duration of treatment (weeks) 8 Plan of Care Start Date 09/02/23 Plan of Care End Date 11/02/22 Therapeutic Interventions Therapeutic Interventions Balance Training,Gait Training ,Home Exercise Program,Manual Therapy,Neuromuscular Re- education,Patient/Caregiver Education,Self-Care/Home Management,Taping,Therapeutic Activities,Therapeutic Exercises Modalities Cold Pack/Ice Massage,Hot Packs Next Visit Focus/Plan Next Note Type Treatment Note Next Visit Plan work on functional pre-gait wt shift with emphasis on neutral hip and pelvis, SLS with visual feedback (add to HEP). Consider KT tape to glut med for facil.
--- NOTE | 2023-09-08 14:30 | PT.OTN ---
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 Using cane about 2 years. Having major L foot surgery November 04 and wants to be stronger to be able to recover. Does band exercises for UE's, also does exercises for her back and hips. 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 PT-OP-G Mobility & Gait Start: 09/01/23 15:00 Freq: Status: Active Protocol: Document 09/02/23 15:02 [facility] (Rec: 09/02/23 16:18 [facility] [id number]) OP Gait Assessment Gait Gait Assistance Required: Independent Assistive Devices Assistive Device Straight Cane Gait Deviations General Gait Pattern Antalgic,Lateral Trunk Lean Comments Gait Comments drop foot Stair Climbing Evaluation Evaluation Level of Assist On Stairs Independent Devices Stair Climbing Assistive Devices Left Railing Technique/Endurance Stair Climbing Direction Ascend and Descend Stair Climbing Technique Step Over Step PT-OP-H Neuro Start: 09/01/23 15:00 Freq: Status: Active Protocol: Document 09/02/23 15:02 [facility] (Rec: 09/02/23 16:18 [facility] [id number]) Sensation Evaluation Gross Sensation Gross Sensation WNL PT-OP-J Posture/Palpation/Skin Start: 09/01/23 15:00 Freq: Status: Active Protocol: Document 09/02/23 15:02 [facility] (Rec: 09/02/23 16:18 [facility] [id number]) Posture Evaluation Position Standing Head/C-Spine Posture Forward Head Thorax Posture (R) Prominent L-Spine Posture Increased Lordosis Shoulder Posture (L) Rounded,(R) Rounded Scapula Posture (R) Protracted,(L) Retracted Arm Posture (L) Internally Rotated,(R) Internally Rotated Pelvis Posture Anteriorly Tilted Ankle/Foot Posture (L) Forefoot Adducted Foot Arch (L) Low Arch,(R) Low Arch Palpation Assessment Location gr trochanter Palpation Findings Tenderness PT-OP-K Range of Motion Start: 09/01/23 15:00 Freq: Status: Active Protocol: Document 09/02/23 15:02 [facility] (Rec: 09/02/23 16:18 [facility] [id number]) Lumbar Spine Range of Motion Lumbar Spine Active Comments mod dec all motions Hip Goniometric Range of Motion Hip Right Hip ROM WFL Yes Left Hip ROM WFL Yes Knee Goniometric Range of Motion Knee zachery Knee ROM WFL Yes Ankle and Foot Goniometric Range of Motion Ankle and Foot zachery Ankle/Foot ROM WFL Yes PT-OP-L Special Tests Start: 09/01/23 15:00 Freq: Status: Active Protocol: Document 09/02/23 15:02 [facility] (Rec: 09/02/23 16:18 [facility] [id number]) Special Tests Hip Special Tests Piriformis Test Results neg Scour Test Test Results neg FLACO Test Results neg Trendelenberg Test Results +R Comments significant R lateral trunk lean and L hip drop during stance phase of gait right PT-OP-M Strength Start: 09/01/23 15:00 Freq: Status: Active Protocol: Document 09/02/23 15:02 SAK (Rec: 09/02/23 16:18 SAK [id number]) Cervical Spine Strength Cervical Spine Manual Muscle Testing Flexion (C1-2) 4- Good- Extension 4- Good- Hip Strength Hip Manual Muscle Testing Right Flexion (L2) 3+ Fair+ Extension (S1) 3- Fair- Abduction 2+ Poor+ Adduction 3+ Fair+ External Rotation 3+ Fair+ Internal Rotation 3+ Fair+ Left Flexion (L2) 4 Good Extension (S1) 3+ Fair+ Abduction 4- Good- Adduction 4+ Good+ External Rotation 4- Good- Internal Rotation 4- Good- Knee Strength Knee Manual Muscle Testing Right Flexion (S2) 4+ Good+ Extension (L3) 4+ Good+ Left Flexion (S2) 5 Normal Extension (L3) 5 Normal Ankle/Foot Strength Ankle and Foot Manual Muscle Testing Right Dorsiflexion (L4) 4 Good Plantarflexion (S1) 4 Good Left Dorsiflexion (L4) 4 Good Plantarflexion (S1) 4 Good Comments functionally drop foot with gait with excess forefoot adduction PT-OP-Q Treatments Start: 09/01/23 15:00 Freq: Status: Active Protocol: Document 09/08/23 13:49 SP (Rec: 09/08/23 14:33 SP [id number]) Therapeutic Exercises Supine Exercises bicycle Supine Exercise Name sef HEP reviewed from strainer cleaner in past Reps/Minutes [id number] quick, 15-18 reps shaky core/hips Comments cued slower pacing (mini range , not circular demo'd) bridging Supine Exercise Name HEP review Reps/Minutes 10 reps x5 SH Comments cued full range touch lift able. single leg bridge Supine Exercise Name HEP review Side bilateral Reps/Minutes L stance x10 challenge last 2, R stance x11 Comments LLE stance R hip adductor helped last 2 reps Sidelying Exercises ABD Sidelying Exercise Name legs straight Side bilateral Reps/Minutes R 10, L2 with pillow support then 5 reps without Comments cued stacked sidelying, TA fac clamshell Sidelying Exercise Name HEP review Side bilateral Resistance GTB Reps/Minutes L 2x8 ea R x8, x5 Comments HEP modified to 2x5 ea Sitting Exercises STS Resistance no UE support (side front last ) Equipment Used 22> 20> 19> 18table Reps/Minutes 5 reps each height Standing Exercises step ups Standing Exercise Name Reviewed past HEP Side bilateral Equipment Used light contact rail support RLE needed Reps/Minutes 10 reps lead each LE Comments cued TKE Therapeutic Activity Therapeutic Activity squat<> stand reach OH Name 44cm tball touch floor then reach OH Reps/Minutes x10 Comments cued deep squat if want. SBA standing on blue mat. Gait Training Gait Activity no AD Comments cued shorter stride LLE- causes trunk SB for LLE clearance. PT-OP-T Assessment and Plan Start: 09/01/23 15:00 Freq: Status: Active Protocol: Document 09/08/23 13:49 SP (Rec: 09/08/23 14:33 SP [id number]) Physical Therapy Assessment Goals activity tolerance Impairment lower extremity functional scale (LEFS) 24% Short Term Goal (STG) Improve LEFS to at least 35% as measure of improved LE function and activity tolerance STG Duration 10/02/23 Healthcare Educator Goal (LTG) Improve LEFS to at least 50% as measure of improved LE function and activity tolerance Two Impairment right hip weakness Impairment most significant hip abduction 2+/5, extension 3/5 Short Term Goal (STG) Patient to be instructed in HEP with emphasis on hip strengthening STG Duration 10/02/23 Healthcare Educator Goal (LTG) Patient to be independent and compliant with HEP and demonstrate improved hip strength to at least 4/5 all motions for improved function LTG Duration 11/02/23 1 Impairment gait dysfunction Impairment Trendelenberg right even with use of SPC Short Term Goal (STG) Problem-solve most appropriate gait device and instruct in pre-gait activities with emphasis on gluteal activation STG Duration 10/02/23 Healthcare Educator Goal (LTG) Patient to be able to ambulate with minimal to no Trendelenberg with least restrictive device LTG Duration 11/02/23 Assessment Summary Assessment Pt able to increase resistance sidelying clamshell, able to perform LLE sidelying abd. Cues for slower pacing bicycle but may not get as many reps for core and hip strength, limit reps painfree back. Pt was able to complete STS from standard with lowering elevated table height progression vs just from chair 18. Cues for quad TKE and glut firing during step ups level pelvis, able to lighten RUE contact during LLE. Pt found functional squat to stand reaching over head helpful for getting out/chair and UE mobility end tx. Physical Therapy Plan Frequency and Duration Frequency of Treatment 2x/Week Duration of treatment (weeks) 8 Plan of Care Start Date 09/02/23 Plan of Care End Date 11/02/22 Therapeutic Interventions Therapeutic Interventions Balance Training,Gait Training ,Home Exercise Program,Manual Therapy,Neuromuscular Re- education,Patient/Caregiver Education,Self-Care/Home Management,Taping,Therapeutic Activities,Therapeutic Exercises Modalities Cold Pack/Ice Massage,Hot Packs Next Visit Focus/Plan Next Note Type Treatment Note Next Visit Plan Check step ups, squat/reach OH Tball (ther act) POC: work on functional pre- gait wt shift with emphasis on neutral hip and pelvis, SLS with visual feedback (add to HEP). Consider KT tape to glut med for facil.
--- NOTE | 2023-09-11 11:33 | PT-OP ANOTE ---
DNS for PT appt.
--- NOTE | 2023-09-23 10:28 | PT.OTN ---
Current Diagnoses Unspecified disorder of synovium and tendon, right thigh (09/23/23) Difficulty in walking, not elsewhere classified (09/23/23) Weakness (09/23/23) Physical Therapy Treatment Note PT-OP-A Visit Information Start: 09/01/23 15:00 Freq: Status: Active Protocol: Document 09/23/23 08:04 SAK (Rec: 09/23/23 09:05 [facility] [id number]) Out-Patient Physical Therapy Visit Information Visit Information Visit Type Treatment Note Visit Start Time 08:15 Visit Stop Time 09:10 Total Visit Minutes 55 Visit Number 5 Number of BEAUTICIAN APPRENTICE Visits 0 PT-OP-B Current Condition Start: 09/01/23 15:00 Freq: Status: Active Protocol: Document 09/02/23 15:02 SAK (Rec: 09/02/23 16:18 [facility] [id number]) Current Condition History of Current Condition Onset Date 5+ years Current Complaints right hip pain and weakness History of Current Condition no injury. Using cane about 2 years. Having major L foot surgery November 04 and wants to be stronger to be able to recover. Does band exercises for UE's, also does exercises for her back and hips. 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 Reports pain in mid back (indicating TL junction with hand) PT-OP-G Mobility & Gait Start: 09/01/23 15:00 Freq: Status: Active Protocol: Document 09/02/23 15:02 SAK (Rec: 09/02/23 16:18 [facility] [id number]) OP Gait Assessment Gait Gait Assistance Required: Independent Assistive Devices Assistive Device Straight Cane Gait Deviations General Gait Pattern Antalgic,Lateral Trunk Lean Comments Gait Comments drop foot Stair Climbing Evaluation Evaluation Level of Assist On Stairs Independent Devices Stair Climbing Assistive Devices Left Railing Technique/Endurance Stair Climbing Direction Ascend and Descend Stair Climbing Technique Step Over Step PT-OP-H Neuro Start: 09/01/23 15:00 Freq: Status: Active Protocol: Document 09/02/23 15:02 [facility] (Rec: 09/02/23 16:18 [facility] [id number]) Sensation Evaluation Gross Sensation Gross Sensation WNL PT-OP-J Posture/Palpation/Skin Start: 09/01/23 15:00 Freq: Status: Active Protocol: Document 09/02/23 15:02 [facility] (Rec: 09/02/23 16:18 [facility] [id number]) Posture Evaluation Position Standing Head/C-Spine Posture Forward Head Thorax Posture (R) Prominent L-Spine Posture Increased Lordosis Shoulder Posture (L) Rounded,(R) Rounded Scapula Posture (R) Protracted,(L) Retracted Arm Posture (L) Internally Rotated,(R) Internally Rotated Pelvis Posture Anteriorly Tilted Ankle/Foot Posture (L) Forefoot Adducted Foot Arch (L) Low Arch,(R) Low Arch Palpation Assessment Location gr trochanter Palpation Findings Tenderness PT-OP-K Range of Motion Start: 09/01/23 15:00 Freq: Status: Active Protocol: Document 09/02/23 15:02 [facility] (Rec: 09/02/23 16:18 [facility] [id number]) Lumbar Spine Range of Motion Lumbar Spine Active Comments mod dec all motions Hip Goniometric Range of Motion Hip Right Hip ROM WFL Yes Left Hip ROM WFL Yes Knee Goniometric Range of Motion Knee zachery Knee ROM WFL Yes Ankle and Foot Goniometric Range of Motion Ankle and Foot zachery Ankle/Foot ROM WFL Yes PT-OP-L Special Tests Start: 09/01/23 15:00 Freq: Status: Active Protocol: Document 09/02/23 15:02 [facility] (Rec: 09/02/23 16:18 [facility] [id number]) Special Tests Hip Special Tests Piriformis Test Results neg Scour Test Test Results neg FLACO Test Results neg Trendelenberg Test Results +R Comments significant R lateral trunk lean and L hip drop during stance phase of gait right PT-OP-M Strength Start: 09/01/23 15:00 Freq: Status: Active Protocol: Document 09/02/23 15:02 [facility] (Rec: 09/02/23 16:18 [facility] [id number]) Cervical Spine Strength Cervical Spine Manual Muscle Testing Flexion (C1-2) 4- Good- Extension 4- Good- Hip Strength Hip Manual Muscle Testing Right Flexion (L2) 3+ Fair+ Extension (S1) 3- Fair- Abduction 2+ Poor+ Adduction 3+ Fair+ External Rotation 3+ Fair+ Internal Rotation 3+ Fair+ Left Flexion (L2) 4 Good Extension (S1) 3+ Fair+ Abduction 4- Good- Adduction 4+ Good+ External Rotation 4- Good- Internal Rotation 4- Good- Knee Strength Knee Manual Muscle Testing Right Flexion (S2) 4+ Good+ Extension (L3) 4+ Good+ Left Flexion (S2) 5 Normal Extension (L3) 5 Normal Ankle/Foot Strength Ankle and Foot Manual Muscle Testing Right Dorsiflexion (L4) 4 Good Plantarflexion (S1) 4 Good Left Dorsiflexion (L4) 4 Good Plantarflexion (S1) 4 Good Comments functionally drop foot with gait with excess forefoot adduction PT-OP-Q Treatments Start: 09/01/23 15:00 Freq: Status: Active Protocol: Document 09/23/23 08:04 [facility] (Rec: 09/23/23 09:05 [facility] [id number]) Therapeutic Exercises Supine Exercises bridging Supine Exercise Name segmental Reps/Minutes 10 reps x5 SH Comments cued full range touch lift able. Standing Exercises wall posture Reps/Minutes 5x2 Comments segmental roll, cues for soft knees hip extension Standing Exercise Name HEP review Side bilateral Reps/Minutes x5 ea Comments cues to avoid lumbar hyperextension hip abduction Standing Exercise Name HEP review Side bilateral Reps/Minutes x5 ea Comments cue for minimal range Manual Therapy Treatment Taping glut med Body Location right hip Treatment Focus activation Type of Tape kinesiot Skin Inspection intact Comments 2 I strips 50% stretch. Self-Care/Home Management Treatment Education Other Education postural correction, emphasis on ribcage positioned over pelvis (pt habitual posture thoracic spine posterior to pelvis with excess kyphosis and hinging at T-L junction) PT-OP-R Modalities Start: 09/01/23 15:00 Freq: Status: Active Protocol: Document 09/15/23 13:46 NBM (Rec: 09/15/23 14:33 NBM [id number]) Hot Pack/Cold Pack Treatment Heat Location lumbothoracic Patient Position Hooklying Treatment Duration (minutes) 15 Patient Tolerance Good Comments H/l w/ LE bolster support PT-OP-T Assessment and Plan Start: 09/01/23 15:00 Freq: Status: Active Protocol: Document 09/23/23 08:04 SAK (Rec: 09/23/23 09:05 SAK [id number]) Physical Therapy Assessment Goals activity tolerance Impairment lower extremity functional scale (LEFS) 24% Short Term Goal (STG) Improve LEFS to at least 35% as measure of improved LE function and activity tolerance STG Duration 10/02/23 Detention Goal (LTG) Improve LEFS to at least 50% as measure of improved LE function and activity tolerance Two Impairment right hip weakness Impairment most significant hip abduction 2+/5, extension 3/5 Short Term Goal (STG) Patient to be instructed in HEP with emphasis on hip strengthening STG Duration 10/02/23 Chest Painting And Sealing Supervisor Goal (LTG) Patient to be independent and compliant with HEP and demonstrate improved hip strength to at least 4/5 all motions for improved function LTG Duration 11/02/23 1 Impairment gait dysfunction Impairment Trendelenberg right even with use of SPC Short Term Goal (STG) Problem-solve most appropriate gait device and instruct in pre-gait activities with emphasis on gluteal activation STG Duration 10/02/23 Chest Painting And Sealing Supervisor Goal (LTG) Patient to be able to ambulate with minimal to no Trendelenberg with least restrictive device LTG Duration 11/02/23 Assessment Summary Assessment Trial kinesiotape to right glut med. Patient demonstrated good understanding of TL junction and why often pain occurs there especially with posterior positioning of her thoracic spine; worked on segmental spinal roll on wall and segmental bridge. Patient highly compliant to HEP. MARINO with use of towel under her side during soft tissue mobilization; patient reports she will try at home; may need to issue handout next sesison . Physical Therapy Plan Frequency and Duration Frequency of Treatment 2x/Week Duration of treatment (weeks) 8 Plan of Care Start Date 09/02/23 Plan of Care End Date 11/02/22 Therapeutic Interventions Therapeutic Interventions Balance Training,Gait Training ,Home Exercise Program,Manual Therapy,Neuromuscular Re- education,Patient/Caregiver Education,Self-Care/Home Management,Taping,Therapeutic Activities,Therapeutic Exercises Modalities Cold Pack/Ice Massage,Hot Packs Next Visit Focus/Plan Next Note Type Treatment Note Next Visit Plan REview bed positioning and evaluate response. Assess response to KT tape. Continue ther ex progression. Work on use of walker and UE strengthening for post-op
--- NOTE | 2023-09-26 12:25 | PT.OTN ---
Current Diagnoses Unspecified disorder of synovium and tendon, right thigh (09/26/23) Difficulty in walking, not elsewhere classified (09/26/23) Weakness (09/26/23) Physical Therapy Treatment Note PT-OP-A Visit Information Start: 09/01/23 15:00 Freq: Status: Active Protocol: Document 09/26/23 11:14 NBM (Rec: 09/26/23 12:25 NBM [id number]) Out-Patient Physical Therapy Visit Information Visit Information Visit Type Treatment Note Visit Start Time 11:15 Visit Stop Time 12:02 Total Visit Minutes 47 Visit Number 6 Number of CANE CUTTER Visits 1 PT-OP-B Current Condition Start: 09/01/23 15:00 Freq: Status: Active Protocol: Document 09/02/23 15:02 SAK (Rec: 09/02/23 16:18 SAK [id number]) Current Condition History of Current Condition Onset Date 5+ years Current Complaints right hip pain and weakness History of Current Condition no injury. Using cane about 2 years. Having major L foot surgery November 04 and wants to be stronger to be able to recover. Does band exercises for UE's, also does exercises for her back and hips. 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 She has 2.5# ankle weights for LE strengthening in preparation for her foot surgery on Nov 04. She met the surgeon yesterday and was relieved to learn she will be able to put some weight onto her foot after surgery. She scheduled PT appts with the desktop technician accordingly. PT-OP-G Mobility & Gait Start: 09/01/23 15:00 Freq: Status: Active Protocol: Document 09/02/23 15:02 [facility] (Rec: 09/02/23 16:18 [facility] [id number]) OP Gait Assessment Gait Gait Assistance Required: Independent Assistive Devices Assistive Device Straight Cane Gait Deviations General Gait Pattern Antalgic,Lateral Trunk Lean Comments Gait Comments drop foot Stair Climbing Evaluation Evaluation Level of Assist On Stairs Independent Devices Stair Climbing Assistive Devices Left Railing Technique/Endurance Stair Climbing Direction Ascend and Descend Stair Climbing Technique Step Over Step PT-OP-H Neuro Start: 09/01/23 15:00 Freq: Status: Active Protocol: Document 09/02/23 15:02 [facility] (Rec: 09/02/23 16:18 [facility] [id number]) Sensation Evaluation Gross Sensation Gross Sensation WNL PT-OP-J Posture/Palpation/Skin Start: 09/01/23 15:00 Freq: Status: Active Protocol: Document 09/02/23 15:02 [facility] (Rec: 09/02/23 16:18 [facility] [id number]) Posture Evaluation Position Standing Head/C-Spine Posture Forward Head Thorax Posture (R) Prominent L-Spine Posture Increased Lordosis Shoulder Posture (L) Rounded,(R) Rounded Scapula Posture (R) Protracted,(L) Retracted Arm Posture (L) Internally Rotated,(R) Internally Rotated Pelvis Posture Anteriorly Tilted Ankle/Foot Posture (L) Forefoot Adducted Foot Arch (L) Low Arch,(R) Low Arch Palpation Assessment Location gr trochanter Palpation Findings Tenderness PT-OP-K Range of Motion Start: 09/01/23 15:00 Freq: Status: Active Protocol: Document 09/02/23 15:02 [facility] (Rec: 09/02/23 16:18 [facility] [id number]) Lumbar Spine Range of Motion Lumbar Spine Active Comments mod dec all motions Hip Goniometric Range of Motion Hip Right Hip ROM WFL Yes Left Hip ROM WFL Yes Knee Goniometric Range of Motion Knee zachery Knee ROM WFL Yes Ankle and Foot Goniometric Range of Motion Ankle and Foot zachery Ankle/Foot ROM WFL Yes PT-OP-L Special Tests Start: 09/01/23 15:00 Freq: Status: Active Protocol: Document 09/02/23 15:02 [facility] (Rec: 09/02/23 16:18 [facility] [id number]) Special Tests Hip Special Tests Piriformis Test Results neg Scour Test Test Results neg FLACO Test Results neg Trendelenberg Test Results +R Comments significant R lateral trunk lean and L hip drop during stance phase of gait right PT-OP-M Strength Start: 09/01/23 15:00 Freq: Status: Active Protocol: Document 09/02/23 15:02 [facility] (Rec: 09/02/23 16:18 [facility] [id number]) Cervical Spine Strength Cervical Spine Manual Muscle Testing Flexion (C1-2) 4- Good- Extension 4- Good- Hip Strength Hip Manual Muscle Testing Right Flexion (L2) 3+ Fair+ Extension (S1) 3- Fair- Abduction 2+ Poor+ Adduction 3+ Fair+ External Rotation 3+ Fair+ Internal Rotation 3+ Fair+ Left Flexion (L2) 4 Good Extension (S1) 3+ Fair+ Abduction 4- Good- Adduction 4+ Good+ External Rotation 4- Good- Internal Rotation 4- Good- Knee Strength Knee Manual Muscle Testing Right Flexion (S2) 4+ Good+ Extension (L3) 4+ Good+ Left Flexion (S2) 5 Normal Extension (L3) 5 Normal Ankle/Foot Strength Ankle and Foot Manual Muscle Testing Right Dorsiflexion (L4) 4 Good Plantarflexion (S1) 4 Good Left Dorsiflexion (L4) 4 Good Plantarflexion (S1) 4 Good Comments functionally drop foot with gait with excess forefoot adduction PT-OP-Q Treatments Start: 09/01/23 15:00 Freq: Status: Active Protocol: Document 09/26/23 11:14 [facility] (Rec: 09/26/23 12:25 [facility] [id number]) Therapeutic Exercises Supine Exercises hip flexor stretch Supine Exercise Name Pawan position - added to HEP Side bilateral Equipment Used hi-lo table Reps/Minutes x20s ea single leg bridge Supine Exercise Name HEP review Side bilateral Reps/Minutes L stance x10 challenge last 2, R stance x11 Comments cues for TrA to increase stability clamshell Supine Exercise Name 1. bilateral 2. alternating Side bilateral Equipment Used Lvl 3 green Tb Reps/Minutes x10, x10 ea alternating Comments cues for PPT Sidelying Exercises ABD Sidelying Exercise Name legs straight Side bilateral Reps/Minutes R 10, L 6-8 with pillow support Comments cued stacked sidelying, TA fac Standing Exercises wall posture Reps/Minutes 5x Comments segmental roll, cues for soft knees hip extension Standing Exercise Name HEP review Side bilateral Reps/Minutes x5 ea Comments cues to avoid lumbar hyperextension hip abduction Standing Exercise Name HEP review Side bilateral Reps/Minutes 2x5 ea R stance, x5 L stnde Comments cue for minimal range, posture Neuro Re-Education Treatment Balance Activities hurdles Details 4>6 6 hurdles progressively closer Surface firm Equipment // bars, gait belt Reps/Duration 4 x3 , 6 x2 Comments posture and foot clearance focus. tandem Details walking Surface firm Equipment // bars Reps/Duration x10 feet Comments LLE challenged to clear RLE fully. SLS Surface firm Equipment // bars, gait belt Reps/Duration trials x3 ea Comments Pt attempts Eyes Closed x1 but discontinues because of apprehension of falling Self-Care/Home Management Treatment Education Patient Education Home Exercise Program,Posture Other Education Treatment focus on LE strengthening and balanceShe is reminded that pillow supports between LEs can support LE alignment and ease stress through hip. Added to HEP: supine hip flexor stretch (Pawan) - HO given. PT-OP-R Modalities Start: 09/01/23 15:00 Freq: Status: Active Protocol: Document 09/26/23 11:14 NBM (Rec: 09/26/23 12:25 [facility] [id number]) Hot Pack/Cold Pack Treatment Heat Location lumbothoracic Patient Position Hooklying Treatment Duration (minutes) 15 Patient Tolerance Good Comments H/l w/ 90/90 LE bolster support PT-OP-T Assessment and Plan Start: 09/01/23 15:00 Freq: Status: Active Protocol: Document 09/26/23 11:14 NBM (Rec: 09/26/23 12:25 [facility] [id number]) Physical Therapy Assessment Goals activity tolerance Impairment lower extremity functional scale (LEFS) 24% Short Term Goal (STG) Improve LEFS to at least 35% as measure of improved LE function and activity tolerance STG Duration 10/02/23 Electric Cell Tender Goal (LTG) Improve LEFS to at least 50% as measure of improved LE function and activity tolerance Two Impairment right hip weakness Impairment most significant hip abduction 2+/5, extension 3/5 Short Term Goal (STG) Patient to be instructed in HEP with emphasis on hip strengthening STG Duration 10/02/23 Fpc Goal (LTG) Patient to be independent and compliant with HEP and demonstrate improved hip strength to at least 4/5 all motions for improved function LTG Duration 11/02/23 1 Impairment gait dysfunction Impairment Trendelenberg right even with use of SPC Short Term Goal (STG) Problem-solve most appropriate gait device and instruct in pre-gait activities with emphasis on gluteal activation STG Duration 10/02/23 Electric Cell Tender Goal (LTG) Patient to be able to ambulate with minimal to no Trendelenberg with least restrictive device LTG Duration 11/02/23 Assessment Summary Assessment LLE challenged to clear RLE fully with tandem walking. Pt is challenged in SLS eyes closed and pt discontinues after one attempt due to apprehension despite // bars and gait belt and CANE CUTTER CGA. For bed positioning she is educated that pillow supports between LEs can support LE alignment and ease stress through hip. Pt is instructed to remove KTape tomorrow or sooner for skin reaction. Added to HEP: supine hip flexor stretch (Pawan) - HO given. Physical Therapy Plan Frequency and Duration Frequency of Treatment 2x/Week Duration of treatment (weeks) 8 Plan of Care Start Date 09/02/23 Plan of Care End Date 11/02/22 Therapeutic Interventions Therapeutic Interventions Balance Training,Gait Training ,Home Exercise Program,Manual Therapy,Neuromuscular Re- education,Patient/Caregiver Education,Self-Care/Home Management,Taping,Therapeutic Activities,Therapeutic Exercises Modalities Cold Pack/Ice Massage,Hot Packs Next Visit Focus/Plan Next Note Type Treatment Note Next Visit Plan Review bed positioning and evaluate response. Assess response to KT tape. Continue ther ex progression. Work on use of walker and UE strengthening for post-op
--- NOTE | 2023-10-01 09:03 | PT.OTN ---
Current Diagnoses Unspecified disorder of synovium and tendon, right thigh (10/01/23) Difficulty in walking, not elsewhere classified (10/01/23) Weakness (10/01/23) Physical Therapy Treatment Note PT-OP-A Visit Information Start: 09/01/23 15:00 Freq: Status: Active Protocol: Document 10/01/23 08:18 SP (Rec: 10/01/23 09:06 SP [id number]) Out-Patient Physical Therapy Visit Information Visit Information Visit Type Treatment Note Visit Start Time 08:18 Visit Stop Time 09:03 Total Visit Minutes 45 Visit Number 7 Number of FIREARMS SPECIALIST Visits 2 Evaluation Information Evaluation Date 09/02/23 Precautions Precautions low bone density, foot drop, history depression, arthritis, falls PT-OP-B Current Condition Start: 09/01/23 15:00 Freq: Status: Active Protocol: Document 09/02/23 15:02 SAK (Rec: 09/02/23 16:18 SAK [id number]) Current Condition History of Current Condition Onset Date 5+ years Current Complaints right hip pain and weakness History of Current Condition no injury. Using cane about 2 years. Having major L foot surgery November 04 and wants to be stronger to be able to recover. Does band exercises for UE's, also does exercises for her back and hips. 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 Wants to review HEP for proper form. PT-OP-G Mobility & Gait Start: 09/01/23 15:00 Freq: Status: Active Protocol: Document 09/02/23 15:02 [facility] (Rec: 09/02/23 16:18 [facility] [id number]) OP Gait Assessment Gait Gait Assistance Required: Independent Assistive Devices Assistive Device Straight Cane Gait Deviations General Gait Pattern Antalgic,Lateral Trunk Lean Comments Gait Comments drop foot Stair Climbing Evaluation Evaluation Level of Assist On Stairs Independent Devices Stair Climbing Assistive Devices Left Railing Technique/Endurance Stair Climbing Direction Ascend and Descend Stair Climbing Technique Step Over Step PT-OP-H Neuro Start: 09/01/23 15:00 Freq: Status: Active Protocol: Document 09/02/23 15:02 [facility] (Rec: 09/02/23 16:18 [facility] [id number]) Sensation Evaluation Gross Sensation Gross Sensation WNL PT-OP-J Posture/Palpation/Skin Start: 09/01/23 15:00 Freq: Status: Active Protocol: Document 09/02/23 15:02 [facility] (Rec: 09/02/23 16:18 [facility] [id number]) Posture Evaluation Position Standing Head/C-Spine Posture Forward Head Thorax Posture (R) Prominent L-Spine Posture Increased Lordosis Shoulder Posture (L) Rounded,(R) Rounded Scapula Posture (R) Protracted,(L) Retracted Arm Posture (L) Internally Rotated,(R) Internally Rotated Pelvis Posture Anteriorly Tilted Ankle/Foot Posture (L) Forefoot Adducted Foot Arch (L) Low Arch,(R) Low Arch Palpation Assessment Location gr trochanter Palpation Findings Tenderness PT-OP-K Range of Motion Start: 09/01/23 15:00 Freq: Status: Active Protocol: Document 09/02/23 15:02 [facility] (Rec: 09/02/23 16:18 [facility] [id number]) Lumbar Spine Range of Motion Lumbar Spine Active Comments mod dec all motions Hip Goniometric Range of Motion Hip Right Hip ROM WFL Yes Left Hip ROM WFL Yes Knee Goniometric Range of Motion Knee zachery Knee ROM WFL Yes Ankle and Foot Goniometric Range of Motion Ankle and Foot zachery Ankle/Foot ROM WFL Yes PT-OP-L Special Tests Start: 09/01/23 15:00 Freq: Status: Active Protocol: Document 09/02/23 15:02 [facility] (Rec: 09/02/23 16:18 [facility] [id number]) Special Tests Hip Special Tests Piriformis Test Results neg Scour Test Test Results neg FLACO Test Results neg Trendelenberg Test Results +R Comments significant R lateral trunk lean and L hip drop during stance phase of gait right PT-OP-M Strength Start: 09/01/23 15:00 Freq: Status: Active Protocol: Document 09/02/23 15:02 SAK (Rec: 09/02/23 16:18 SAK [id number]) Cervical Spine Strength Cervical Spine Manual Muscle Testing Flexion (C1-2) 4- Good- Extension 4- Good- Hip Strength Hip Manual Muscle Testing Right Flexion (L2) 3+ Fair+ Extension (S1) 3- Fair- Abduction 2+ Poor+ Adduction 3+ Fair+ External Rotation 3+ Fair+ Internal Rotation 3+ Fair+ Left Flexion (L2) 4 Good Extension (S1) 3+ Fair+ Abduction 4- Good- Adduction 4+ Good+ External Rotation 4- Good- Internal Rotation 4- Good- Knee Strength Knee Manual Muscle Testing Right Flexion (S2) 4+ Good+ Extension (L3) 4+ Good+ Left Flexion (S2) 5 Normal Extension (L3) 5 Normal Ankle/Foot Strength Ankle and Foot Manual Muscle Testing Right Dorsiflexion (L4) 4 Good Plantarflexion (S1) 4 Good Left Dorsiflexion (L4) 4 Good Plantarflexion (S1) 4 Good Comments functionally drop foot with gait with excess forefoot adduction PT-OP-Q Treatments Start: 09/01/23 15:00 Freq: Status: Active Protocol: Document 10/01/23 08:18 SP (Rec: 10/01/23 09:06 SP [id number]) Therapeutic Exercises Supine Exercises hip flexor stretch Supine Exercise Name Pawan position - added to HEP Side bilateral Equipment Used hi-lo table Reps/Minutes x20s ea Comments cued angled upper body away EOB, quad, hip flexor stretch R>L bicycle Supine Exercise Name sef HEP reviewed from green jobs trainer in past Reps/Minutes x10 Comments cued slower pacing slight larger range- good core and performance clamshell Supine Exercise Name 1. bilateral (10/01 did on side )2. alternating Side bilateral Equipment Used Lvl 3 green Tb Reps/Minutes x10 ea alternating Comments cues for PPT level pelvis on table with, TA Sidelying Exercises ABD Sidelying Exercise Name legs straight Side bilateral Reps/Minutes R 10, L 10 with pillow support Comments cued stacked sidelying, TA fac clamshell Sidelying Exercise Name HEP review Side bilateral Resistance GTB Reps/Minutes L 2x10 R 2x10 Comments roll fwd for post hip recruitment, ankle DF neutral Standing Exercises wall posture Reps/Minutes 5x 3 SH Comments Elongated posturing- carryover to hip abd/ext hip extension Standing Exercise Name HEP review Side bilateral Reps/Minutes 2x5 reps Comments Cued elongated posture and no hyperext knees, quiver glut hip abduction Standing Exercise Name HEP review Side bilateral Reps/Minutes 2x5 each Comments Cued elongated posture and no hyperext knees, quiver glut Manual Therapy Treatment Soft Tissue Mobilization Quad Body Location L>R Mobilization Type Instrument Assisted,Myofascial Release,Rolling Intensity/Depth Moderate Body Position Hooklying Comments manual and light rolling pin back Body Location B ES, paraspinals T9-L3 Mobilization Type Strumming Intensity/Depth Moderate Body Position prone over pillows PT-OP-R Modalities Start: 09/01/23 15:00 Freq: Status: Active Protocol: Document 09/26/23 11:14 NBM (Rec: 09/26/23 12:25 NBM [id number]) Hot Pack/Cold Pack Treatment Heat Location lumbothoracic Patient Position Hooklying Treatment Duration (minutes) 15 Patient Tolerance Good Comments H/l w/ 90/90 LE bolster support PT-OP-T Assessment and Plan Start: 09/01/23 15:00 Freq: Status: Active Protocol: Document 10/01/23 08:18 SP (Rec: 10/01/23 09:06 SP [id number]) Physical Therapy Assessment Goals activity tolerance Impairment lower extremity functional scale (LEFS) 24% Short Term Goal (STG) Improve LEFS to at least 35% as measure of improved LE function and activity tolerance STG Duration 10/02/23 Taker Away Goal (LTG) Improve LEFS to at least 50% as measure of improved LE function and activity tolerance Two Impairment right hip weakness Impairment most significant hip abduction 2+/5, extension 3/5 Short Term Goal (STG) Patient to be instructed in HEP with emphasis on hip strengthening STG Duration 10/02/23 Fdc Goal (LTG) Patient to be independent and compliant with HEP and demonstrate improved hip strength to at least 4/5 all motions for improved function LTG Duration 11/02/23 1 Impairment gait dysfunction Impairment Trendelenberg right even with use of SPC Short Term Goal (STG) Problem-solve most appropriate gait device and instruct in pre-gait activities with emphasis on gluteal activation STG Duration 10/02/23 Fdc Goal (LTG) Patient to be able to ambulate with minimal to no Trendelenberg with least restrictive device LTG Duration 11/02/23 Assessment Summary Assessment Pt arrived with reports of midback pain from bending over cleaning her bathroom. Improved thoracic mobility post manual and elongated postural corrections during hip ther ex. She demonstrates improved hip abd range against gravity with good effort engagement using support of pillow supporting LE into partial range Pt reports increase hip flexor stretch with less/no LB discomfort post ed change trunk angle away from but pelvis closer to EOB. Physical Therapy Plan Frequency and Duration Frequency of Treatment 2x/Week Duration of treatment (weeks) 8 Plan of Care Start Date 09/02/23 Plan of Care End Date 11/02/22 Therapeutic Interventions Therapeutic Interventions Balance Training,Gait Training ,Home Exercise Program,Manual Therapy,Neuromuscular Re- education,Patient/Caregiver Education,Self-Care/Home Management,Taping,Therapeutic Activities,Therapeutic Exercises Modalities Cold Pack/Ice Massage,Hot Packs Next Visit Focus/Plan Next Note Type Treatment Note Next Visit Plan Review single leg bridge, bed positioning and evaluate response. Assess response to KT tape. Continue ther ex progression. Work on use of walker and UE strengthening for post-op
--- NOTE | 2023-10-03 14:30 | PT.OTN ---
Current Diagnoses Unspecified disorder of synovium and tendon, right thigh (10/03/23) Difficulty in walking, not elsewhere classified (10/03/23) Weakness (10/03/23) Physical Therapy Treatment Note PT-OP-A Visit Information Start: 09/01/23 15:00 Freq: Status: Active Protocol: Document 10/03/23 13:48 SP (Rec: 10/03/23 14:33 SP [id number]) Out-Patient Physical Therapy Visit Information Visit Information Visit Type Treatment Note Visit Start Time 13:48 Visit Stop Time 14:30 Total Visit Minutes 42 Visit Number 8 Number of CFD ENGINEER Visits 3 Precautions Precautions low bone density, foot drop, history depression, arthritis, falls PT-OP-B Current Condition Start: 09/01/23 15:00 Freq: Status: Active Protocol: Document 09/02/23 15:02 SAK (Rec: 09/02/23 16:18 SAK [id number]) Current Condition History of Current Condition Onset Date 5+ years Current Complaints right hip pain and weakness History of Current Condition no injury. Using cane about 2 years. Having major L foot surgery November 04 and wants to be stronger to be able to recover. Does band exercises for UE's, also does exercises for her back and hips. 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 She reports her back felt good when left here post manual and ther ex. Today is my 2nd to last day with her hip rehab. Then will start her pre ankle rehab th appt. PT-OP-G Mobility & Gait Start: 09/01/23 15:00 Freq: Status: Active Protocol: Document 09/02/23 15:02 [facility] (Rec: 09/02/23 16:18 [facility] [id number]) OP Gait Assessment Gait Gait Assistance Required: Independent Assistive Devices Assistive Device Straight Cane Gait Deviations General Gait Pattern Antalgic,Lateral Trunk Lean Comments Gait Comments drop foot Stair Climbing Evaluation Evaluation Level of Assist On Stairs Independent Devices Stair Climbing Assistive Devices Left Railing Technique/Endurance Stair Climbing Direction Ascend and Descend Stair Climbing Technique Step Over Step PT-OP-H Neuro Start: 09/01/23 15:00 Freq: Status: Active Protocol: Document 09/02/23 15:02 [facility] (Rec: 09/02/23 16:18 [facility] [id number]) Sensation Evaluation Gross Sensation Gross Sensation WNL PT-OP-J Posture/Palpation/Skin Start: 09/01/23 15:00 Freq: Status: Active Protocol: Document 09/02/23 15:02 [facility] (Rec: 09/02/23 16:18 [facility] [id number]) Posture Evaluation Position Standing Head/C-Spine Posture Forward Head Thorax Posture (R) Prominent L-Spine Posture Increased Lordosis Shoulder Posture (L) Rounded,(R) Rounded Scapula Posture (R) Protracted,(L) Retracted Arm Posture (L) Internally Rotated,(R) Internally Rotated Pelvis Posture Anteriorly Tilted Ankle/Foot Posture (L) Forefoot Adducted Foot Arch (L) Low Arch,(R) Low Arch Palpation Assessment Location gr trochanter Palpation Findings Tenderness PT-OP-K Range of Motion Start: 09/01/23 15:00 Freq: Status: Active Protocol: Document 09/02/23 15:02 [facility] (Rec: 09/02/23 16:18 [facility] [id number]) Lumbar Spine Range of Motion Lumbar Spine Active Comments mod dec all motions Hip Goniometric Range of Motion Hip Right Hip ROM WFL Yes Left Hip ROM WFL Yes Knee Goniometric Range of Motion Knee zachery Knee ROM WFL Yes Ankle and Foot Goniometric Range of Motion Ankle and Foot zachery Ankle/Foot ROM WFL Yes PT-OP-L Special Tests Start: 09/01/23 15:00 Freq: Status: Active Protocol: Document 09/02/23 15:02 [facility] (Rec: 09/02/23 16:18 [facility] [id number]) Special Tests Hip Special Tests Piriformis Test Results neg Scour Test Test Results neg FLACO Test Results neg Trendelenberg Test Results +R Comments significant R lateral trunk lean and L hip drop during stance phase of gait right PT-OP-M Strength Start: 09/01/23 15:00 Freq: Status: Active Protocol: Document 09/02/23 15:02 [facility] (Rec: 09/02/23 16:18 [facility] [id number]) Cervical Spine Strength Cervical Spine Manual Muscle Testing Flexion (C1-2) 4- Good- Extension 4- Good- Hip Strength Hip Manual Muscle Testing Right Flexion (L2) 3+ Fair+ Extension (S1) 3- Fair- Abduction 2+ Poor+ Adduction 3+ Fair+ External Rotation 3+ Fair+ Internal Rotation 3+ Fair+ Left Flexion (L2) 4 Good Extension (S1) 3+ Fair+ Abduction 4- Good- Adduction 4+ Good+ External Rotation 4- Good- Internal Rotation 4- Good- Knee Strength Knee Manual Muscle Testing Right Flexion (S2) 4+ Good+ Extension (L3) 4+ Good+ Left Flexion (S2) 5 Normal Extension (L3) 5 Normal Ankle/Foot Strength Ankle and Foot Manual Muscle Testing Right Dorsiflexion (L4) 4 Good Plantarflexion (S1) 4 Good Left Dorsiflexion (L4) 4 Good Plantarflexion (S1) 4 Good Comments functionally drop foot with gait with excess forefoot adduction PT-OP-Q Treatments Start: 09/01/23 15:00 Freq: Status: Active Protocol: Document 10/03/23 13:48 SP (Rec: 10/03/23 14:33 SP [id number]) Therapeutic Exercises Supine Exercises single leg bridge Supine Exercise Name HEP review Side bilateral Reps/Minutes x10 Comments cues for TrA to increase stability, little slower pauas end range good efft clamshell Supine Exercise Name 1. bilateral 2. alternating/ opp LE stationary Side bilateral Equipment Used Lvl 3 green Tb Reps/Minutes x10 ea alternating Comments cues for PPT level pelvis on table with, TA Sidelying Exercises ABD Sidelying Exercise Name legs straight Side bilateral Reps/Minutes B 2x10 with pillow support Comments improved stacked sidelying, TA fac Sitting Exercises seated march Sitting Exercise Name initiated- alternating Side bilateral Resistance 2# leg wt Reps/Minutes x15 reps Standing Exercises step ups Standing Exercise Name Reviewed past HEP Side bilateral Resistance 2# leg wt Equipment Used light contact rail support LUE needed Reps/Minutes 10 reps lead each LE Comments improved R hip tiring glut at 8 reps Manual Therapy Treatment Soft Tissue Mobilization B hips Body Location glut med& piriformis Comments MWM /c FM hip IR& ER back Body Location B ES, paraspinals T9-L3 Mobilization Type Strumming Intensity/Depth Moderate Body Position prone over pillows Neuro Re-Education Treatment Balance Activities tandem Details stationary Surface firm Equipment // bars Reps/Duration x10 feet Comments RLE and LLE fwd 15 sec before LOB cues wt shift into front leg, improves SLS Surface firm Equipment // bars, gait belt Reps/Duration trials x3 ea Comments RLE 23 sec /c LUE support on table- states feels on muscle engagement mostly over L glut and TFL recruitment/ not R Glut. LLE 30 sec /c light RUE on table Pt unsure how much UE WB on table for data feedback, but opp LE touching inside stance LE for stabiltiy support. PT-OP-R Modalities Start: 09/01/23 15:00 Freq: Status: Active Protocol: Document 09/26/23 11:14 NBM (Rec: 09/26/23 12:25 NBM [id number]) Hot Pack/Cold Pack Treatment Heat Location lumbothoracic Patient Position Hooklying Treatment Duration (minutes) 15 Patient Tolerance Good Comments H/l w/ 90/90 LE bolster support PT-OP-T Assessment and Plan Start: 09/01/23 15:00 Freq: Status: Active Protocol: Document 10/03/23 13:48 SP (Rec: 10/03/23 14:33 SP [id number]) Physical Therapy Assessment Goals activity tolerance Impairment lower extremity functional scale (LEFS) 24% Short Term Goal (STG) Improve LEFS to at least 35% as measure of improved LE function and activity tolerance STG Duration 10/02/23 Medical Transcription Editor Goal (LTG) Improve LEFS to at least 50% as measure of improved LE function and activity tolerance Two Impairment right hip weakness Impairment most significant hip abduction 2+/5, extension 3/5 Short Term Goal (STG) Patient to be instructed in HEP with emphasis on hip strengthening STG Duration 10/02/23 Medical Transcription Editor Goal (LTG) Patient to be independent and compliant with HEP and demonstrate improved hip strength to at least 4/5 all motions for improved function LTG Duration 11/02/23 1 Impairment gait dysfunction Impairment Trendelenberg right even with use of SPC Short Term Goal (STG) Problem-solve most appropriate gait device and instruct in pre-gait activities with emphasis on gluteal activation STG Duration 10/02/23 Half-Way Goal (LTG) Patient to be able to ambulate with minimal to no Trendelenberg with least restrictive device LTG Duration 11/02/23 Assessment Summary Assessment Pt improvement in self corrections with use of HOs of HEP, improved hip abd and glut/quad effort during single leg bridge today, improve ROM against gravity with noted TA engagement and less compensations in back and upper body. She demonstrated increase R glut firing, less scissor step during LLE advancement leaving appt. Physical Therapy Plan Frequency and Duration Frequency of Treatment 2x/Week Duration of treatment (weeks) 8 Plan of Care Start Date 09/02/23 Plan of Care End Date 11/02/22 Therapeutic Interventions Therapeutic Interventions Balance Training,Gait Training ,Home Exercise Program,Manual Therapy,Neuromuscular Re- education,Patient/Caregiver Education,Self-Care/Home Management,Taping,Therapeutic Activities,Therapeutic Exercises Modalities Cold Pack/Ice Massage,Hot Packs Next Visit Focus/Plan Next Note Type Discharge Summary Next Visit Plan FInialize HEP for hips Next tx : can trial lateral step ups 2 -4 step rail support if able. DC encounter for rehab for hip. POC: Continue ther ex progression. Work on prehab for ankle including use of walker and UE strengthening for post-op in the future.
--- NOTE | 2023-10-07 16:32 | PT.OTN ---
Current Diagnoses Unspecified disorder of synovium and tendon, right thigh (10/07/23) Difficulty in walking, not elsewhere classified (10/07/23) Weakness (10/07/23) Physical Therapy Treatment Note PT-OP-A Visit Information Start: 09/01/23 15:00 Freq: Status: Active Protocol: Document 10/07/23 14:34 SAK (Rec: 10/07/23 15:15 [facility] [id number]) Out-Patient Physical Therapy Visit Information Visit Information Visit Type Discharge Summary Visit Start Time 14:34 Visit Stop Time 13:14 Total Visit Minutes 40 Visit Number 9 Number of LARD MIXER Visits 0 Evaluation Information Evaluation Date 09/02/23 Precautions Precautions low bone density, foot drop, history depression, arthritis, falls PT-OP-B Current Condition Start: 09/01/23 15:00 Freq: Status: Active Protocol: Document 09/02/23 15:02 SAK (Rec: 09/02/23 16:18 SAK [id number]) Current Condition History of Current Condition Onset Date 5+ years Current Complaints right hip pain and weakness History of Current Condition no injury. Using cane about 2 years. Having major L foot surgery November 04 and wants to be stronger to be able to recover. Does band exercises for UE's, also does exercises for her back and hips. 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 [employer] no limitations Functional Limitations- Recreation/ walking painful, limited Hobbies distance PT-OP-C Subjective Start: 09/01/23 15:00 Freq: Status: Active Protocol: Document 10/07/23 14:34 SAK (Rec: 10/07/23 15:15 [facility] [id number]) OP-PT Subjective Patient Comments Patient Comments Has a few questions about her exercises, states she feels her walking is sloppy, though better when she is able to focus on gluteal activation PT-OP-G Mobility & Gait Start: 09/01/23 15:00 Freq: Status: Active Protocol: Document 09/02/23 15:02 [facility] (Rec: 09/02/23 16:18 [facility] [id number]) OP Gait Assessment Gait Gait Assistance Required: Independent Assistive Devices Assistive Device Straight Cane Gait Deviations General Gait Pattern Antalgic,Lateral Trunk Lean Comments Gait Comments drop foot Stair Climbing Evaluation Evaluation Level of Assist On Stairs Independent Devices Stair Climbing Assistive Devices Left Railing Technique/Endurance Stair Climbing Direction Ascend and Descend Stair Climbing Technique Step Over Step PT-OP-H Neuro Start: 09/01/23 15:00 Freq: Status: Active Protocol: Document 09/02/23 15:02 [facility] (Rec: 09/02/23 16:18 [facility] [id number]) Sensation Evaluation Gross Sensation Gross Sensation WNL PT-OP-J Posture/Palpation/Skin Start: 09/01/23 15:00 Freq: Status: Active Protocol: Document 09/02/23 15:02 [facility] (Rec: 09/02/23 16:18 [facility] [id number]) Posture Evaluation Position Standing Head/C-Spine Posture Forward Head Thorax Posture (R) Prominent L-Spine Posture Increased Lordosis Shoulder Posture (L) Rounded,(R) Rounded Scapula Posture (R) Protracted,(L) Retracted Arm Posture (L) Internally Rotated,(R) Internally Rotated Pelvis Posture Anteriorly Tilted Ankle/Foot Posture (L) Forefoot Adducted Foot Arch (L) Low Arch,(R) Low Arch Palpation Assessment Location gr trochanter Palpation Findings Tenderness PT-OP-K Range of Motion Start: 09/01/23 15:00 Freq: Status: Active Protocol: Document 09/02/23 15:02 [facility] (Rec: 09/02/23 16:18 [facility] [id number]) Lumbar Spine Range of Motion Lumbar Spine Active Comments mod dec all motions Hip Goniometric Range of Motion Hip Right Hip ROM WFL Yes Left Hip ROM WFL Yes Knee Goniometric Range of Motion Knee zachery Knee ROM WFL Yes Ankle and Foot Goniometric Range of Motion Ankle and Foot zachery Ankle/Foot ROM WFL Yes PT-OP-L Special Tests Start: 09/01/23 15:00 Freq: Status: Active Protocol: Document 09/02/23 15:02 [facility] (Rec: 09/02/23 16:18 [facility] [id number]) Special Tests Hip Special Tests Piriformis Test Results neg Scour Test Test Results neg FLACO Test Results neg Trendelenberg Test Results +R Comments significant R lateral trunk lean and L hip drop during stance phase of gait right PT-OP-M Strength Start: 09/01/23 15:00 Freq: Status: Active Protocol: Document 09/02/23 15:02 [facility] (Rec: 09/02/23 16:18 [facility] [id number]) Cervical Spine Strength Cervical Spine Manual Muscle Testing Flexion (C1-2) 4- Good- Extension 4- Good- Hip Strength Hip Manual Muscle Testing Right Flexion (L2) 3+ Fair+ Extension (S1) 3- Fair- Abduction 2+ Poor+ Adduction 3+ Fair+ External Rotation 3+ Fair+ Internal Rotation 3+ Fair+ Left Flexion (L2) 4 Good Extension (S1) 3+ Fair+ Abduction 4- Good- Adduction 4+ Good+ External Rotation 4- Good- Internal Rotation 4- Good- Knee Strength Knee Manual Muscle Testing Right Flexion (S2) 4+ Good+ Extension (L3) 4+ Good+ Left Flexion (S2) 5 Normal Extension (L3) 5 Normal Ankle/Foot Strength Ankle and Foot Manual Muscle Testing Right Dorsiflexion (L4) 4 Good Plantarflexion (S1) 4 Good Left Dorsiflexion (L4) 4 Good Plantarflexion (S1) 4 Good Comments functionally drop foot with gait with excess forefoot adduction PT-OP-Q Treatments Start: 09/01/23 15:00 Freq: Status: Active Protocol: Document 10/07/23 14:34 [facility] (Rec: 10/07/23 15:15 [facility] [id number]) Therapeutic Exercises Supine Exercises hip flexor stretch Supine Exercise Name Pawan position reviewed Side bilateral Equipment Used hi-lo table Reps/Minutes x20s ea Comments cues for side of bed ( horizontally across bed) bridging Supine Exercise Name segmental Reps/Minutes 10 reps x5 SH Comments cued full range touch lift able. single leg bridge Supine Exercise Name HEP review Side bilateral Reps/Minutes x10 Comments cues for TrA to increase stability, little slower pauas end range good efft clamshell Supine Exercise Name 1. bilateral 2. alternating/ opp LE stationary Side bilateral Equipment Used Lvl 3 green Tb Reps/Minutes x10 ea alternating Comments cues for PPT level pelvis on table with, TA Sidelying Exercises ABD Sidelying Exercise Name legs straight Side bilateral Reps/Minutes B 2x10 with pillow support Comments improved stacked sidelying, TA fac Standing Exercises step ups Standing Exercise Name lateral Side bilateral Equipment Used light contact on railing as needed Reps/Minutes 10 reps ea Comments needs inc UE for lateral to right hip extension Standing Exercise Name HEP review Side bilateral Reps/Minutes 2x5 reps Comments Cued elongated posture and no hyperext knees, quiver glut hip abduction Standing Exercise Name HEP review Side bilateral Reps/Minutes 2x5 each Comments Cued elongated posture and no hyperext knees, quiver glut PT-OP-R Modalities Start: 09/01/23 15:00 Freq: Status: Active Protocol: Document 09/26/23 11:14 NBM (Rec: 09/26/23 12:25 NBM [id number]) Hot Pack/Cold Pack Treatment Heat Location lumbothoracic Patient Position Hooklying Treatment Duration (minutes) 15 Patient Tolerance Good Comments H/l w/ 90/90 LE bolster support PT-OP-T Assessment and Plan Start: 09/01/23 15:00 Freq: Status: Active Protocol: Document 10/07/23 14:34 SAK (Rec: 10/07/23 15:15 SAK [id number]) Physical Therapy Assessment Goals activity tolerance Impairment lower extremity functional scale (LEFS) 24% Short Term Goal (STG) Improve LEFS to at least 35% as measure of improved LE function and activity tolerance 10/07/23: goal met STG Duration goal met Mcfp Goal (LTG) Improve LEFS to at least 50% as measure of improved LE function and activity tolerance 10/07/23: goal not met LTG Duration 11/02/23 Two Impairment right hip weakness Impairment most significant hip abduction 2+/5, extension 3/5 Short Term Goal (STG) Patient to be instructed in HEP with emphasis on hip strengthening 10/07/23: goal met STG Duration goal met Reel Repairer Goal (LTG) Patient to be independent and compliant with HEP and demonstrate improved hip strength to at least 4/5 all motions for improved function 10/07/24: patient highly compliant with HEP but strength hip ext 4-/5, abduction remains 2+/5 LTG Duration 11/02/23 1 Impairment gait dysfunction Impairment Trendelenberg right even with use of SPC Short Term Goal (STG) Problem-solve most appropriate gait device and instruct in pre-gait activities with emphasis on gluteal activation 10/07/23: goal met STG Duration goal met Reel Repairer Goal (LTG) Patient to be able to ambulate with minimal to no Trendelenberg with least restrictive device 10/07/23: goal partially met with min Trendelenberg with SPC, no Trendelenberg with FWW . LTG Duration 11/02/23 Assessment Summary Assessment Goals only partially achieved. Will be discharged from PT for hip and will be starting PT with emphasis on her ankle with pre-op preparation. Physical Therapy Plan Discharge Physical Therapy Discharge Reasons Plateau in Progress Discharge Comments Will start PT for ankle surgical prehab.
== END 2023-10-16 13:31 | disposition home or self-care (01) ==
LOC: PHYS 14:30
PROVIDERS: Family Provider Internal Medicine; PCP Internal Medicine; Referring Provider Orthopaedic Surgery Adult Reconstructive Orthopaedic Surgery; Visit Provider Orthopaedic Surgery Adult Reconstructive Orthopaedic Surgery
DX: M67.951 Unspecified disorder of synovium and tendon, right thigh (principal); R53.1 Weakness; R26.2 Difficulty in walking, not elsewhere classified
CPT/HCPCS: 97110; 97112; 97140; 97162; 97535

== ENCOUNTER 2023-10-30 09:00 | Outpatient (RCR) | payer MEDICARE, OTHER, SELFPAY ==
--- NOTE | 2023-10-09 09:42 | PT.OIE ---
Current Diagnoses Other hammer toe(s) (acquired), left foot (10/09/23) Dislocation of metatarsophalangeal joint of left lesser toe(s), sequela (10/09/23) Past Medical History (Last Reviewed 08/01/23 @ 14:26 by Tee Sheridan MD) Cancer Cataracts, bilateral (~2015) Chicken pox Chronic hyponatremia Chronic renal failure, stage 3 (moderate) Constipation Cyclothymia Depression Dysphagia Fecal incontinence (~2014) Fractures (~2004) Gastroesophageal reflux disease with esophagitis Genital warts (~1984) Heart palpitations History of urinary incontinence (~2014) Incomplete left bundle branch block (LBBB) Lumbar spinal stenosis Measles Mixed urge and stress incontinence Osteopenia Osteoporosis, unspecified Overactive bladder Sciatica Urge incontinence Urinary frequency UTI (urinary tract infection) Viral cardiomyopathy Weight loss Past Surgical History (Last Reviewed 08/01/23 @ 14:26 by Tee Sheridan MD) Anesthesia H/O hernia repair History of vaginal hysterectomy (~1996) Melanoma (~1981) Visit Care Team Role Provider Type Joshua Chin MD Family Provider Physician Primary Care Provider Specialty: Internal Medicine Address: [address] [place] [address], [address], [address] Email: [email or web address] Nata Reed DPM Attending Provider Non-Staff Referring Provider Specialty: Podiatry Address: [address] [place] [address], [phone] Email: Physical Therapy Initial Evaluation PT-OP-A Visit Information Start: 10/09/23 08:11 Freq: Status: Active Protocol: Document 10/09/23 08:16 SAK (Rec: 10/09/23 09:41 SAK [id number]) Out-Patient Physical Therapy Visit Information Visit Information Visit Type Initial Evaluation Visit Start Time 08:16 Visit Stop Time 09:11 Total Visit Minutes 55 Visit Number 1 Evaluation Information Evaluation Date 10/09/23 PT-OP-B Current Condition Start: 10/09/23 08:11 Freq: Status: Active Protocol: Document 10/09/23 08:16 SAK (Rec: 10/09/23 09:41 SAK [id number]) Current Condition History of Current Condition Current Complaints hammer toe left History of Current Condition Having surgery for hammer toe left foot 11/04/23. Has at home to help and sister will be coming to help for 2 weeks. Will be wearing a post-op boot left 6-9 weeks. Will be 25-50%, reports doctor told her she will be able to bear full weight on heel. Has walker and wheelchair for home use. (FWW) Has 3 stairs to enter the home , will have physical assist. Future Testing and Treatments Planned PT when approved by physician Treatment Goals Patient/Caregiver Goals Learn to ambulate with boot and walker maintaining appropriate weight-bearing status (25-50%). Prior Functional Status Baseline Function- ADL's Modified Independent Baseline Function- Mobility Modified Independent Baseline Function- Gait uses SPC, Trendelenberg gait PT-OP-C Subjective Start: 10/09/23 08:11 Freq: Status: Active Protocol: Document 10/09/23 08:16 [facility] (Rec: 10/09/23 09:41 [facility] [id number]) Patient Questionnaires Lower Extremity Functional Scale LEFS Score 36 OP-PT Pain Assessment Location left foot Intensity 5 PT-OP-D Balance Start: 10/09/23 08:11 Freq: Status: Active Protocol: Document 10/09/23 08:16 SAK (Rec: 10/09/23 09:41 [facility] [id number]) OP-PT Balance Assessment Sitting Balance Static Sitting Balance Ability Normal Dynamic Sitting Balance Ability Normal Standing Balance Static Standing Balance Ability Fair Dynamic Standing Balance Ability Fair Garza Fall Scale Copyright Permission PT-OP-G Mobility & Gait Start: 10/09/23 08:11 Freq: Status: Active Protocol: Document 10/09/23 08:16 SAK (Rec: 10/09/23 09:41 [facility] [id number]) OP Mobility Evaluation Transfers Sit to Stand cues for hinge at hips, knees behind toes Bed to Chair Transfers after instruction w/c to mat transfer with CGA simulating post-op Functional Movements Squats cues for knees behind toes, hip hinge, long spine Wheelchair Management Type of Wheelchair manual Assessment Details instructed in swing away footrests, brake locking, transfers OP Gait Assessment Gait Gait Assistance Required: Independent Assistive Devices Assistive Device Straight Cane Orthotic/Prosthetic Devices or Brace: No Comments Gait Comments Trendelenberg gait Stair Climbing Evaluation Comments Stair Climbing Comments not done today; ran out of time PT-OP-K Range of Motion Start: 10/09/23 08:11 Freq: Status: Active Protocol: Document 10/09/23 08:16 [facility] (Rec: 10/09/23 09:41 [facility] [id number]) Shoulder Goniometric Range of Motion Shoulder zachery Shoulder ROM WFL Yes PT-OP-M Strength Start: 10/09/23 08:11 Freq: Status: Active Protocol: Document 10/09/23 08:16 [facility] (Rec: 10/09/23 09:41 [facility] [id number]) Shoulder Strength Shoulder Manual Muscle Testing Right Flexion 4+ Good+ Extension 4 Good Abduction (C5) 4 Good External Rotation 4- Good- Internal Rotation 4 Good Left Flexion 4- Good- Extension 4- Good- Abduction (C5) 3+ Fair+ Adduction 4- Good- External Rotation 4- Good- Internal Rotation 4 Good Elbow/Forearm Strength Elbow and Forearm Manual Muscle Testing Right Flexion (C6) 4+ Good+ Extension (C7) 4+ Good+ Left Flexion (C6) 4- Good- Extension (C7) 4- Good- Wrist Strength Wrist Manual Muscle Testing zachery Flexion (C7) 4 Good Extension (C6) 4 Good Hand Caretaker Resort/Pinch Strength Hand Dominance Hand Dominance Right Hip Strength Hip Manual Muscle Testing Left Flexion (L2) 4 Good Extension (S1) 4- Good- Abduction 4- Good- External Rotation 4 Good Internal Rotation 4 Good Right Flexion (L2) 4- Good- Extension (S1) 2+ Poor+ Abduction 2+ Poor+ External Rotation 3+ Fair+ Internal Rotation 4 Good Knee Strength Knee Manual Muscle Testing Right Flexion (S2) 4+ Good+ Extension (L3) 4+ Good+ Left Flexion (S2) 5 Normal Extension (L3) 5 Normal Ankle/Foot Strength Ankle and Foot Manual Muscle Testing Left Dorsiflexion (L4) 4 Good Plantarflexion (S1) 4 Good Right Dorsiflexion (L4) 4- Good- Plantarflexion (S1) 4- Good- PT-OP-Q Treatments Start: 10/09/23 08:11 Freq: Status: Active Protocol: Document 10/09/23 08:16 [facility] (Rec: 10/09/23 09:41 [facility] [id number]) Therapeutic Activity Therapeutic Activity walker Comments correct fit and use of FWW transfers Name mat >< w/c Comments cues for dec weight bearing left LE, squat pivot transfer donning/doffing post-op boot Comments patient instruction weight bearing Comments use of walker, scale, and wood block to practice weight shifting observing weight- bearing restriction Self-Care/Home Management Treatment Education Patient Education Home Exercise Program,Safety PT-OP-T Assessment and Plan Start: 10/09/23 08:11 Freq: Status: Active Protocol: Document 10/09/23 08:16 [facility] (Rec: 10/09/23 09:41 [facility] [id number]) Physical Therapy Assessment Rehab Potential Rehabilitation Potential Good Evaluation Complexity Number of Personal Factors/Comorbidities 1-2 Number of Body Systems Impaired 3 Clinical Presentation at Evaluation Stable Impairments Impairments Activity Tolerance,Functional Mobility,Gait,Strength Other Concerns Fall Risk mod Age Related Concerns osteopenia, rotator cuff pathology left Barriers to Rehabilitation UE weakness Goals activity tolerance Impairment lower extremity functional scale (LEFS) 36 Scientific Illustrator Goal (LTG) Improve LEFS scale to at least 50% as measure of improved activity tolerance and LE function LTG Duration 10/31/23 Two Impairment functional strength impairment Impairment Due to right LE and zachery UE weakness patient has difficulty with ambulation and transfers not using left LE Short Term Goal (STG) Instruct in safe functional mobility including gait, standing bal, transfers while maintaining post-op precautions in preparation for left foot surgery STG Duration 10/26/24 Scientific Illustrator Goal (LTG) Patient to be independent and safe with all functional mobility skills for post-op recovery from left foot surgery and be able to observe post-op precautions for safe healing of left foot LTG Duration 10/31/23 1 Impairment safety Impairment patient has knowledge deficit regarding safe use of post-op boot, walker, and wheelchair which she will be using during post-op recovery from foot surgery Short Term Goal (STG) instruct patient in safe use of post-op boot, Even-up shoe riser, walker, wheelchair STG Duration 10/26/23 Custodial Goal (LTG) Patient to be independent and safe with use of post-op boot, even-up shoe riser, wheelchair, walker LTG Duration 10/31/23 Assessment Summary Assessment Patient presents to PT with function-limiting pain and malalignment of hammer toe left necessitating surgery planned for 11/04/23. She has strength and mobility impairments and knowledge deficit which will make post- op recovery challenging. Complicating factors are rotator cuff pathology, bilateral back pain, osteopenia, Trendelenberg gait right due to gluteal weakness . Feel she will benefit from PT to educate her in safe use of all post-op equipment, improve her functional strength to allow her to safely observe post-op precautions with functional mobility activities including transfers and gait. We discussed POC and she was in agreement. Patient highly motivated, attentive, and asking appropriate questions. Physical Therapy Plan Frequency and Duration Frequency of Treatment 2x/Week Duration of treatment (weeks) 4 Plan of Care Start Date 10/09/23 Plan of Care End Date 11/08/23 Therapeutic Interventions Therapeutic Interventions Gait Training,Home Exercise Program,Patient/Caregiver Education,Self-Care/Home Management,Therapeutic Activities,Therapeutic Exercises Modalities Cold Pack/Ice Massage,Hot Packs Next Visit Focus/Plan Next Note Type Treatment Note Next Visit Plan Continue PT for functional strengthening LE's and UE's, transfer training, pre-gait and gait training with post-op boot and Even-up when patient obtains including use of scale for patient feedback regarding weight-bearing percentage.
--- NOTE | 2023-10-09 09:42 | PT.OPPOC ---
Physical, Occupational & Speech Therapy At [facility] Current Diagnoses Other hammer toe(s) (acquired), left foot (10/09/23) Dislocation of metatarsophalangeal joint of left lesser toe(s), sequela (10/09/23) Visit Care Team Role Provider Type Joshua Chin MD Family Provider Physician Primary Care Provider Specialty: Internal Medicine Address: [address] [place] [address], [address], [address] Email: [email or web address] Nata Reed DPM Attending Provider Non-Staff Referring Provider Specialty: Podiatry Address: [address] [place] [address], [phone] Email: Plan Of Care PT-OP-T Assessment and Plan Start: 10/09/23 08:11 Freq: Status: Active Protocol: Document 10/09/23 08:16 [facility] (Rec: 10/09/23 09:41 [facility] [id number]) Physical Therapy Assessment Rehab Potential Rehabilitation Potential Good Evaluation Complexity Number of Personal Factors/Comorbidities 1-2 Number of Body Systems Impaired 3 Clinical Presentation at Evaluation Stable Impairments Impairments Activity Tolerance,Functional Mobility,Gait,Strength Other Concerns Fall Risk mod Age Related Concerns osteopenia, rotator cuff pathology left Barriers to Rehabilitation UE weakness Goals activity tolerance Impairment lower extremity functional scale (LEFS) 36 Assistant News Director Goal (LTG) Improve LEFS scale to at least 50% as measure of improved activity tolerance and LE function LTG Duration 10/31/23 Two Impairment functional strength impairment Impairment Due to right LE and zachery UE weakness patient has difficulty with ambulation and transfers not using left LE Short Term Goal (STG) Instruct in safe functional mobility including gait, standing bal, transfers while maintaining post-op precautions in preparation for left foot surgery STG Duration 10/26/24 Correction Goal (LTG) Patient to be independent and safe with all functional mobility skills for post-op recovery from left foot surgery and be able to observe post-op precautions for safe healing of left foot LTG Duration 10/31/23 1 Impairment safety Impairment patient has knowledge deficit regarding safe use of post-op boot, walker, and wheelchair which she will be using during post-op recovery from foot surgery Short Term Goal (STG) instruct patient in safe use of post-op boot, Even-up shoe riser, walker, wheelchair STG Duration 10/26/23 Correction Goal (LTG) Patient to be independent and safe with use of post-op boot, even-up shoe riser, wheelchair, walker LTG Duration 10/31/23 Assessment Summary Assessment Patient presents to PT with function-limiting pain and malalignment of hammer toe left necessitating surgery planned for 11/04/23. She has strength and mobility impairments and knowledge deficit which will make post- op recovery challenging. Complicating factors are rotator cuff pathology, bilateral back pain, osteopenia, Trendelenberg gait right due to gluteal weakness . Feel she will benefit from PT to educate her in safe use of all post-op equipment, improve her functional strength to allow her to safely observe post-op precautions with functional mobility activities including transfers and gait. We discussed POC and she was in agreement. Patient highly motivated, attentive, and asking appropriate questions. Physical Therapy Plan Frequency and Duration Frequency of Treatment 2x/Week Duration of treatment (weeks) 4 Plan of Care Start Date 10/09/23 Plan of Care End Date 11/08/23 Therapeutic Interventions Therapeutic Interventions Gait Training,Home Exercise Program,Patient/Caregiver Education,Self-Care/Home Management,Therapeutic Activities,Therapeutic Exercises Modalities Cold Pack/Ice Massage,Hot Packs Next Visit Focus/Plan Next Note Type Treatment Note Next Visit Plan Continue PT for functional strengthening LE's and UE's, transfer training, pre-gait and gait training with post-op boot and Even-up when patient obtains including use of scale for patient feedback regarding weight-bearing percentage. Plan of Care Dates Plan of Care Start Date 10/09/23 Plan of Care End Date 11/08/23 Electronically Signed by: Opal Tineo, PT 10/09/23 0942 If you are in agreement with this Plan of Care, please return a signed and dated copy. I have reviewed this Plan of Care and certify that the skilled therapy services above are required to meet the patient?s needs. Physician Signature Date Printed Name and Credentials Clinical Instructor Signature Printed Name and Credentials
--- NOTE | 2023-10-14 11:38 | PT.OTN ---
Current Diagnoses Other hammer toe(s) (acquired), left foot (10/14/23) Dislocation of metatarsophalangeal joint of left lesser toe(s), sequela (10/14/23) Physical Therapy Treatment Note PT-OP-A Visit Information Start: 10/09/23 08:11 Freq: Status: Active Protocol: Document 10/14/23 09:52 SAK (Rec: 10/14/23 10:47 SAK [id number]) Out-Patient Physical Therapy Visit Information Visit Information Visit Type Treatment Note Visit Start Time 09:46 Visit Stop Time 10:30 Total Visit Minutes 44 Visit Number 2 Evaluation Information Evaluation Date 10/09/23 PT-OP-B Current Condition Start: 10/09/23 08:11 Freq: Status: Active Protocol: Document 10/14/23 09:52 SAK (Rec: 10/14/23 10:47 SAK [id number]) Current Condition History of Current Condition Current Complaints hammer toe left History of Current Condition Having surgery for hammer toe left foot 11/04/23. Has at home to help and sister will be coming to help for 2 weeks. Will be wearing a post-op boot left 6-9 weeks. Will be 25-50%, reports doctor told her she will be able to bear full weight on heel. Has walker and wheelchair for home use. (FWW) Has 3 stairs to enter the home , will have physical assist. Future Testing and Treatments Planned PT when approved by physician Treatment Goals Patient/Caregiver Goals Learn to ambulate with boot and walker maintaining appropriate weight-bearing status (25-50%). PT-OP-C Subjective Start: 10/09/23 08:11 Freq: Status: Active Protocol: Document 10/14/23 09:52 SAK (Rec: 10/14/23 10:47 SAK [id number]) OP-PT Subjective Patient Comments Patient Comments Patient reports she has been practicing walking with her post-op boot and practicing transfers; states transfers to her potty chair are difficult . Wants to work on arm strength. Brought walker to check fit. Has ordered Even- up for right shoe but hasn't come yet. PT-OP-D Balance Start: 10/09/23 08:11 Freq: Status: Active Protocol: Document 10/09/23 08:16 SAK (Rec: 10/09/23 09:41 SAK [id number]) OP-PT Balance Assessment Sitting Balance Static Sitting Balance Ability Normal Dynamic Sitting Balance Ability Normal Standing Balance Static Standing Balance Ability Fair Dynamic Standing Balance Ability Fair Garza Fall Scale Copyright Permission PT-OP-G Mobility & Gait Start: 10/09/23 08:11 Freq: Status: Active Protocol: Document 10/09/23 08:16 SAK (Rec: 10/09/23 09:41 [facility] [id number]) OP Mobility Evaluation Transfers Sit to Stand cues for hinge at hips, knees behind toes Bed to Chair Transfers after instruction w/c to mat transfer with CGA simulating post-op Functional Movements Squats cues for knees behind toes, hip hinge, long spine Wheelchair Management Type of Wheelchair manual Assessment Details instructed in swing away footrests, brake locking, transfers OP Gait Assessment Gait Gait Assistance Required: Independent Assistive Devices Assistive Device Straight Cane Orthotic/Prosthetic Devices or Brace: No Comments Gait Comments Trendelenberg gait Stair Climbing Evaluation Comments Stair Climbing Comments not done today; ran out of time PT-OP-K Range of Motion Start: 10/09/23 08:11 Freq: Status: Active Protocol: Document 10/09/23 08:16 [facility] (Rec: 10/09/23 09:41 [facility] [id number]) Shoulder Goniometric Range of Motion Shoulder zachery Shoulder ROM WFL Yes PT-OP-M Strength Start: 10/09/23 08:11 Freq: Status: Active Protocol: Document 10/09/23 08:16 [facility] (Rec: 10/09/23 09:41 [facility] [id number]) Shoulder Strength Shoulder Manual Muscle Testing Right Flexion 4+ Good+ Extension 4 Good Abduction (C5) 4 Good External Rotation 4- Good- Internal Rotation 4 Good Left Flexion 4- Good- Extension 4- Good- Abduction (C5) 3+ Fair+ Adduction 4- Good- External Rotation 4- Good- Internal Rotation 4 Good Elbow/Forearm Strength Elbow and Forearm Manual Muscle Testing Right Flexion (C6) 4+ Good+ Extension (C7) 4+ Good+ Left Flexion (C6) 4- Good- Extension (C7) 4- Good- Wrist Strength Wrist Manual Muscle Testing zachery Flexion (C7) 4 Good Extension (C6) 4 Good Hand Phd Internship/Pinch Strength Hand Dominance Hand Dominance Right Hip Strength Hip Manual Muscle Testing Left Flexion (L2) 4 Good Extension (S1) 4- Good- Abduction 4- Good- External Rotation 4 Good Internal Rotation 4 Good Right Flexion (L2) 4- Good- Extension (S1) 2+ Poor+ Abduction 2+ Poor+ External Rotation 3+ Fair+ Internal Rotation 4 Good Knee Strength Knee Manual Muscle Testing Right Flexion (S2) 4+ Good+ Extension (L3) 4+ Good+ Left Flexion (S2) 5 Normal Extension (L3) 5 Normal Ankle/Foot Strength Ankle and Foot Manual Muscle Testing Left Dorsiflexion (L4) 4 Good Plantarflexion (S1) 4 Good Right Dorsiflexion (L4) 4- Good- Plantarflexion (S1) 4- Good- PT-OP-Q Treatments Start: 10/09/23 08:11 Freq: Status: Active Protocol: Document 10/14/23 09:52 [facility] (Rec: 10/14/23 10:47 [facility] [id number]) Therapeutic Exercises Supine Exercises pec stretch Reps/Minutes 1x30 Sitting Exercises chair push up Sitting Exercise Name added to HEP Reps/Minutes 10x Comments cues for as little help from LE's as possible Standing Exercises squats Equipment Used chair Reps/Minutes 10x Comments cues for LE alignment, toes behind knees wall push-up Standing Exercise Name added to HEP Reps/Minutes 10x Comments cues for neutral spine Therapeutic Activity Therapeutic Activity walker Comments correct fit and use of pt's FWW transfers Name mat >< chair simulate potty chair Reps/Minutes 4x Comments cues for dec weight bearing left LE, squat pivot transfer with scooting forward, alignment of feet for increased ease. Improved with repetition and cues donning/doffing post-op boot Comments patient review with return demo by pt weight bearing Name parallel bars Comments use of walker, scale, and wood block to practice weight shifting, stepping, observing weight-bearing restriction Self-Care/Home Management Treatment Education Patient Education Home Exercise Program,Safety PT-OP-T Assessment and Plan Start: 10/09/23 08:11 Freq: Status: Active Protocol: Document 10/14/23 09:52 [facility] (Rec: 10/14/23 10:47 [facility] [id number]) Physical Therapy Assessment Other Concerns Fall Risk mod Age Related Concerns osteopenia, rotator cuff pathology left Barriers to Rehabilitation UE weakness Goals activity tolerance Impairment lower extremity functional scale (LEFS) 36 Fdc Goal (LTG) Improve LEFS scale to at least 50% as measure of improved activity tolerance and LE function LTG Duration 1/5/24 Two Impairment functional strength impairment Impairment Due to right LE and zachery UE weakness patient has difficulty with ambulation and transfers not using left LE Short Term Goal (STG) Instruct in safe functional mobility including gait, standing bal, transfers while maintaining post-op precautions in preparation for left foot surgery STG Duration 10/26/24 Battery Installer Goal (LTG) Patient to be independent and safe with all functional mobility skills for post-op recovery from left foot surgery and be able to observe post-op precautions for safe healing of left foot LTG Duration 10/31/23 1 Impairment safety Impairment patient has knowledge deficit regarding safe use of post-op boot, walker, and wheelchair which she will be using during post-op recovery from foot surgery Short Term Goal (STG) instruct patient in safe use of post-op boot, Even-up shoe riser, walker, wheelchair STG Duration 10/26/23 Battery Installer Goal (LTG) Patient to be independent and safe with use of post-op boot, even-up shoe riser, wheelchair, walker LTG Duration 10/31/23 Progress Towards Goals Progress Towards Goals Progressing Toward Goals Assessment Summary Assessment Patient with improved ability to offload left LE with standing weight shifts and stepping wearing post-op boot, receptive for problem solving squat pivot transfer to bedside commode with improved performance after instruction and practice. Working on UE strengtheing for post-op use of UE's with gait with walker and with transfers. Physical Therapy Plan Frequency and Duration Frequency of Treatment 2x/Week Duration of treatment (weeks) 4 Plan of Care Start Date 10/09/23 Plan of Care End Date 11/08/23 Therapeutic Interventions Therapeutic Interventions Gait Training,Home Exercise Program,Patient/Caregiver Education,Self-Care/Home Management,Therapeutic Activities,Therapeutic Exercises Modalities Cold Pack/Ice Massage,Hot Packs Next Visit Focus/Plan Next Note Type Treatment Note Next Visit Plan Continue PT for functional strengthening LE's and UE's, transfer training, pre-gait and gait training with post-op boot and Even-up when patient obtains including use of scale for patient feedback regarding weight-bearing percentage.
--- NOTE | 2023-10-17 09:50 | PT.OTN ---
Current Diagnoses Other hammer toe(s) (acquired), left foot (10/17/23) Dislocation of metatarsophalangeal joint of left lesser toe(s), sequela (10/17/23) Physical Therapy Treatment Note PT-OP-A Visit Information Start: 10/09/23 08:11 Freq: Status: Active Protocol: Document 10/17/23 08:57 SP (Rec: 10/17/23 09:52 SP [id number]) Out-Patient Physical Therapy Visit Information Visit Information Visit Type Treatment Note Visit Start Time 09:02 Visit Stop Time 09:50 Total Visit Minutes 48 Visit Number 3 Number of SALES FORCE DEVELOPER Visits 1 Evaluation Information Evaluation Date 10/09/23 PT-OP-B Current Condition Start: 10/09/23 08:11 Freq: Status: Active Protocol: Document 10/14/23 09:52 SAK (Rec: 10/14/23 10:47 SAK [id number]) Current Condition History of Current Condition Current Complaints hammer toe left History of Current Condition Having surgery for hammer toe left foot 11/04/23. Has at home to help and sister will be coming to help for 2 weeks. Will be wearing a post-op boot left 6-9 weeks. Will be 25-50%, reports doctor told her she will be able to bear full weight on heel. Has walker and wheelchair for home use. (FWW) Has 3 stairs to enter the home , will have physical assist. Future Testing and Treatments Planned PT when approved by physician Treatment Goals Patient/Caregiver Goals Learn to ambulate with boot and walker maintaining appropriate weight-bearing status (25-50%). PT-OP-C Subjective Start: 10/09/23 08:11 Freq: Status: Active Protocol: Document 10/17/23 08:57 SP (Rec: 10/17/23 09:52 SP [id number]) OP-PT Subjective Patient Comments Patient Comments Pt reports wants to work on 25 -50 # WB with post op boot to better understand how much weight needs use through BUEs and gait. She brought her FWW, post op boot and lift for other sneaker for level pelvis . PT-OP-D Balance Start: 10/09/23 08:11 Freq: Status: Active Protocol: Document 10/09/23 08:16 SAK (Rec: 10/09/23 09:41 SAK [id number]) OP-PT Balance Assessment Sitting Balance Static Sitting Balance Ability Normal Dynamic Sitting Balance Ability Normal Standing Balance Static Standing Balance Ability Fair Dynamic Standing Balance Ability Fair Garza Fall Scale Copyright Permission PT-OP-G Mobility & Gait Start: 10/09/23 08:11 Freq: Status: Active Protocol: Document 10/09/23 08:16 [facility] (Rec: 10/09/23 09:41 [facility] [id number]) OP Mobility Evaluation Transfers Sit to Stand cues for hinge at hips, knees behind toes Bed to Chair Transfers after instruction w/c to mat transfer with CGA simulating post-op Functional Movements Squats cues for knees behind toes, hip hinge, long spine Wheelchair Management Type of Wheelchair manual Assessment Details instructed in swing away footrests, brake locking, transfers OP Gait Assessment Gait Gait Assistance Required: Independent Assistive Devices Assistive Device Straight Cane Orthotic/Prosthetic Devices or Brace: No Comments Gait Comments Trendelenberg gait Stair Climbing Evaluation Comments Stair Climbing Comments not done today; ran out of time PT-OP-K Range of Motion Start: 10/09/23 08:11 Freq: Status: Active Protocol: Document 10/09/23 08:16 [facility] (Rec: 10/09/23 09:41 [facility] [id number]) Shoulder Goniometric Range of Motion Shoulder zachery Shoulder ROM WFL Yes PT-OP-M Strength Start: 10/09/23 08:11 Freq: Status: Active Protocol: Document 10/09/23 08:16 [facility] (Rec: 10/09/23 09:41 [facility] [id number]) Shoulder Strength Shoulder Manual Muscle Testing Right Flexion 4+ Good+ Extension 4 Good Abduction (C5) 4 Good External Rotation 4- Good- Internal Rotation 4 Good Left Flexion 4- Good- Extension 4- Good- Abduction (C5) 3+ Fair+ Adduction 4- Good- External Rotation 4- Good- Internal Rotation 4 Good Elbow/Forearm Strength Elbow and Forearm Manual Muscle Testing Right Flexion (C6) 4+ Good+ Extension (C7) 4+ Good+ Left Flexion (C6) 4- Good- Extension (C7) 4- Good- Wrist Strength Wrist Manual Muscle Testing zachery Flexion (C7) 4 Good Extension (C6) 4 Good Hand Brim Greaser Operator/Pinch Strength Hand Dominance Hand Dominance Right Hip Strength Hip Manual Muscle Testing Left Flexion (L2) 4 Good Extension (S1) 4- Good- Abduction 4- Good- External Rotation 4 Good Internal Rotation 4 Good Right Flexion (L2) 4- Good- Extension (S1) 2+ Poor+ Abduction 2+ Poor+ External Rotation 3+ Fair+ Internal Rotation 4 Good Knee Strength Knee Manual Muscle Testing Right Flexion (S2) 4+ Good+ Extension (L3) 4+ Good+ Left Flexion (S2) 5 Normal Extension (L3) 5 Normal Ankle/Foot Strength Ankle and Foot Manual Muscle Testing Left Dorsiflexion (L4) 4 Good Plantarflexion (S1) 4 Good Right Dorsiflexion (L4) 4- Good- Plantarflexion (S1) 4- Good- PT-OP-Q Treatments Start: 10/09/23 08:11 Freq: Status: Active Protocol: Document 10/17/23 08:57 SP (Rec: 10/17/23 09:52 SP [id number]) Therapeutic Exercises Sitting Exercises chair push up Sitting Exercise Name Reviewed HEP Reps/Minutes 10x Comments cues for as little help from LE's as possible Standing Exercises squats Standing Exercise Name light chair sit/tap Equipment Used chair Reps/Minutes 10x Comments cues for LE alignment, toes behind knees wall push-up Standing Exercise Name reveiwed HEP Reps/Minutes 10x Comments cues for neutral spine Therapeutic Activity Therapeutic Activity sit stand Name Initiated STS from chair /c proper 20# WB LLE in boot Comments cues for LLE out front, scoot fwd chair, heavy UE on chair arm/FWW, hip hinge over RLE to come to stand. pt demonstrated 20-40# WB on LLE, will continue to work on BUE/ RLE for WB for safety come post surgery. walker Reps/Minutes 20 ft x2 laps Comments correct fit and use of pt's FWW, wt shift /c 20# WB use scale forward distance only donning/doffing post-op boot Name post op boot and elevated shoe lift for RLE Comments patient review with return demo by pt. SALES FORCE DEVELOPER donned shoe lift on sneakers today, pt to perform future tx. weight bearing Name parallel bars, FWW Comments use of walker, scale, and wood block to practice weight shifting, stepping, observing weight-bearing restriction 20# PT-OP-T Assessment and Plan Start: 10/09/23 08:11 Freq: Status: Active Protocol: Document 10/17/23 08:57 SP (Rec: 10/17/23 09:52 SP [id number]) Physical Therapy Assessment Goals activity tolerance Impairment lower extremity functional scale (LEFS) 36 Slip Injector And Applicator Goal (LTG) Improve LEFS scale to at least 50% as measure of improved activity tolerance and LE function LTG Duration 10/31/23 Two Impairment functional strength impairment Impairment Due to right LE and zachery UE weakness patient has difficulty with ambulation and transfers not using left LE Short Term Goal (STG) Instruct in safe functional mobility including gait, standing bal, transfers while maintaining post-op precautions in preparation for left foot surgery STG Duration 10/26/24 Slip Injector And Applicator Goal (LTG) Patient to be independent and safe with all functional mobility skills for post-op recovery from left foot surgery and be able to observe post-op precautions for safe healing of left foot LTG Duration 10/31/23 1 Impairment safety Impairment patient has knowledge deficit regarding safe use of post-op boot, walker, and wheelchair which she will be using during post-op recovery from foot surgery Short Term Goal (STG) instruct patient in safe use of post-op boot, Even-up shoe riser, walker, wheelchair STG Duration 10/26/23 Assisted Goal (LTG) Patient to be independent and safe with use of post-op boot, even-up shoe riser, wheelchair, walker LTG Duration 10/31/23 Assessment Summary Assessment Pt required cues for propre form with chair push ups, lessening LLE more BUE on chair arms and RLE support needed to progress ascend to standing maintain 20# wB on post op LLE future needs. Extra time spent don/doff boot , I today but therapist donned shoe lift to R eaker at this time for awareness how, pt will perform future. Pt requires cuing for patterning LLE and FWW while using scale to maintain 20# WB LLE /c boot , tends to be to forward in FWW. Good response to UE wall pushup muscle tiring response. Physical Therapy Plan Frequency and Duration Frequency of Treatment 2x/Week Duration of treatment (weeks) 4 Plan of Care Start Date 10/09/23 Plan of Care End Date 11/08/23 Therapeutic Interventions Therapeutic Interventions Gait Training,Home Exercise Program,Patient/Caregiver Education,Self-Care/Home Management,Therapeutic Activities,Therapeutic Exercises Modalities Cold Pack/Ice Massage,Hot Packs Next Visit Focus/Plan Next Note Type Treatment Note Next Visit Plan Next tx work on transfers and pivot turns WB #. Continue PT for functional strengthening LE's and UE's, transfer training, pre-gait and gait training with post-op boot and Even-up (shoe lift RLE) when patient obtains including use of scale for patient feedback regarding weight-bearing percentage.
--- NOTE | 2023-10-22 10:32 | PT.OTN ---
Current Diagnoses Other hammer toe(s) (acquired), left foot (10/22/23) Dislocation of metatarsophalangeal joint of left lesser toe(s), sequela (10/22/23) Physical Therapy Treatment Note PT-OP-A Visit Information Start: 10/09/23 08:11 Freq: Status: Active Protocol: Document 10/22/23 09:48 SP (Rec: 10/22/23 10:55 SP [id number]) Out-Patient Physical Therapy Visit Information Visit Information Visit Type Treatment Note Visit Start Time 09:48 Visit Stop Time 10:32 Total Visit Minutes 44 Visit Number 4 Number of RAD TECHNOLOGIST Visits 2 Evaluation Information Evaluation Date 10/09/23 PT-OP-B Current Condition Start: 10/09/23 08:11 Freq: Status: Active Protocol: Document 10/14/23 09:52 SAK (Rec: 10/14/23 10:47 SAK [id number]) Current Condition History of Current Condition Current Complaints hammer toe left History of Current Condition Having surgery for hammer toe left foot 11/04/23. Has at home to help and sister will be coming to help for 2 weeks. Will be wearing a post-op boot left 6-9 weeks. Will be 25-50%, reports doctor told her she will be able to bear full weight on heel. Has walker and wheelchair for home use. (FWW) Has 3 stairs to enter the home , will have physical assist. Future Testing and Treatments Planned PT when approved by physician Treatment Goals Patient/Caregiver Goals Learn to ambulate with boot and walker maintaining appropriate weight-bearing status (25-50%). PT-OP-C Subjective Start: 10/09/23 08:11 Freq: Status: Active Protocol: Document 10/22/23 09:48 SP (Rec: 10/22/23 10:55 SP [id number]) OP-PT Subjective Patient Comments Patient Comments Pt reports is able to don/doff boot and elevated shoe lift. Wants to work on STS and transfers using FWW while maintaining WB precautions 20 -50#. PT-OP-D Balance Start: 10/09/23 08:11 Freq: Status: Active Protocol: Document 10/09/23 08:16 SAK (Rec: 10/09/23 09:41 SAK [id number]) OP-PT Balance Assessment Sitting Balance Static Sitting Balance Ability Normal Dynamic Sitting Balance Ability Normal Standing Balance Static Standing Balance Ability Fair Dynamic Standing Balance Ability Fair Garza Fall Scale Copyright Permission PT-OP-G Mobility & Gait Start: 10/09/23 08:11 Freq: Status: Active Protocol: Document 10/09/23 08:16 SAK (Rec: 10/09/23 09:41 [facility] [id number]) OP Mobility Evaluation Transfers Sit to Stand cues for hinge at hips, knees behind toes Bed to Chair Transfers after instruction w/c to mat transfer with CGA simulating post-op Functional Movements Squats cues for knees behind toes, hip hinge, long spine Wheelchair Management Type of Wheelchair manual Assessment Details instructed in swing away footrests, brake locking, transfers OP Gait Assessment Gait Gait Assistance Required: Independent Assistive Devices Assistive Device Straight Cane Orthotic/Prosthetic Devices or Brace: No Comments Gait Comments Trendelenberg gait Stair Climbing Evaluation Comments Stair Climbing Comments not done today; ran out of time PT-OP-K Range of Motion Start: 10/09/23 08:11 Freq: Status: Active Protocol: Document 10/09/23 08:16 MARIA LUZ (Rec: 10/09/23 09:41 [facility] [id number]) Shoulder Goniometric Range of Motion Shoulder zachery Shoulder ROM WFL Yes PT-OP-M Strength Start: 10/09/23 08:11 Freq: Status: Active Protocol: Document 10/09/23 08:16 [facility] (Rec: 10/09/23 09:41 [facility] [id number]) Shoulder Strength Shoulder Manual Muscle Testing Right Flexion 4+ Good+ Extension 4 Good Abduction (C5) 4 Good External Rotation 4- Good- Internal Rotation 4 Good Left Flexion 4- Good- Extension 4- Good- Abduction (C5) 3+ Fair+ Adduction 4- Good- External Rotation 4- Good- Internal Rotation 4 Good Elbow/Forearm Strength Elbow and Forearm Manual Muscle Testing Right Flexion (C6) 4+ Good+ Extension (C7) 4+ Good+ Left Flexion (C6) 4- Good- Extension (C7) 4- Good- Wrist Strength Wrist Manual Muscle Testing zachery Flexion (C7) 4 Good Extension (C6) 4 Good Hand Purchasing Officer/Pinch Strength Hand Dominance Hand Dominance Right Hip Strength Hip Manual Muscle Testing Left Flexion (L2) 4 Good Extension (S1) 4- Good- Abduction 4- Good- External Rotation 4 Good Internal Rotation 4 Good Right Flexion (L2) 4- Good- Extension (S1) 2+ Poor+ Abduction 2+ Poor+ External Rotation 3+ Fair+ Internal Rotation 4 Good Knee Strength Knee Manual Muscle Testing Right Flexion (S2) 4+ Good+ Extension (L3) 4+ Good+ Left Flexion (S2) 5 Normal Extension (L3) 5 Normal Ankle/Foot Strength Ankle and Foot Manual Muscle Testing Left Dorsiflexion (L4) 4 Good Plantarflexion (S1) 4 Good Right Dorsiflexion (L4) 4- Good- Plantarflexion (S1) 4- Good- PT-OP-Q Treatments Start: 10/09/23 08:11 Freq: Status: Active Protocol: Document 10/22/23 09:48 SP (Rec: 10/22/23 10:55 SP [id number]) Therapeutic Exercises Sitting Exercises LAQ Sitting Exercise Name added to HEP Side bilateral Resistance AROM ( LLE boot donned/R shoe lift donned) Reps/Minutes 5 SH x10 Comments reports quad, little hip abd quivering muscle tiring chair push up Sitting Exercise Name Reviewed HEP Reps/Minutes 10x, brief 3 sec rest at 6th rep due to UE muscle quiver tiring Comments cues for as little help from LE's as possible Standing Exercises side stepping Standing Exercise Name reviewed a past HEP for strengthening Side bilateral Resistance light contact table for stability/weak hip abd Equipment Used (had boot LLE, Even up on shoe RLE) Reps/Minutes 10 ft x2 laps Comments cued increase knee flexion for foot clearance, decrease LB recruitment squats Standing Exercise Name light chair sit/tap Equipment Used chair Reps/Minutes 10x (challenge /c boot donned due to lack L ankle DF) Comments cues for LE alignment, toes behind knees Therapeutic Activity Therapeutic Activity sit stand Name STS from chair /c proper TTWB- 20# WB LLE in boot Reps/Minutes 2x5 Comments cues for LLE out front, scoot fwd chair, heavy UE on chair arm/FWW, hip hinge over RLE to come to stand. pt demonstrated 20-40# WB on LLE, will continue to work on BUE/ RLE for WB for safety come post surgery. walker Reps/Minutes 20 ft x4 laps Comments correct fit and use of pt's FWW, wt shift /c 20# WB use scale forward distance only transfers Name bed<> chair, chair<> chair simulate potty chair Reps/Minutes 4x Comments cues for dec weight bearing left LE, stand step pivot transfer /c FWW with scooting forward, alignment of feet for increased ease (LLE fwd). Improved with repetition. Pt was able don/doff pant mgt 1 UE/opp UE on FWW and maintain WB 20-50# LLE WB donning/doffing post-op boot Name post op boot and elevated Even -Up shoe lift for RLE Comments patient demo'd Independent donning both. PT-OP-T Assessment and Plan Start: 10/09/23 08:11 Freq: Status: Active Protocol: Document 10/22/23 09:48 SP (Rec: 10/22/23 10:55 SP [id number]) Physical Therapy Assessment Goals activity tolerance Impairment lower extremity functional scale (LEFS) 36 Self Sealing Fuel Tank Repairer Goal (LTG) Improve LEFS scale to at least 50% as measure of improved activity tolerance and LE function LTG Duration 10/31/23 Two Impairment functional strength impairment Impairment Due to right LE and zachery UE weakness patient has difficulty with ambulation and transfers not using left LE Short Term Goal (STG) Instruct in safe functional mobility including gait, standing bal, transfers while maintaining post-op precautions in preparation for left foot surgery STG Duration 10/26/24 Self Sealing Fuel Tank Repairer Goal (LTG) Patient to be independent and safe with all functional mobility skills for post-op recovery from left foot surgery and be able to observe post-op precautions for safe healing of left foot LTG Duration 10/31/23 1 Impairment safety Impairment patient has knowledge deficit regarding safe use of post-op boot, walker, and wheelchair which she will be using during post-op recovery from foot surgery Short Term Goal (STG) instruct patient in safe use of post-op boot, Even-up shoe riser, walker, wheelchair STG Duration 10/26/23 Shelter Goal (LTG) Patient to be independent and safe with use of post-op boot, even-up shoe riser, wheelchair, walker LTG Duration 10/31/23 Assessment Summary Assessment Pt improved ease with repetitions STS and stand step pivot transfer using FWW and additional review pant mgt for future use of BSC while maintaining suggested 20-50# WB LLE. She also improved corrections post cuing for LLE and body positioning within FWW middle vs to fwd, she felt more balanced. Good quad/hip abd tiring with ended session with LE strengthening exercises. Pt requested hand written review of activities performed today for assist recall all on 1 paper and can review HOs given previously for more details. Physical Therapy Plan Frequency and Duration Frequency of Treatment 2x/Week Duration of treatment (weeks) 4 Plan of Care Start Date 10/09/23 Plan of Care End Date 11/08/23 Therapeutic Interventions Therapeutic Interventions Gait Training,Home Exercise Program,Patient/Caregiver Education,Self-Care/Home Management,Therapeutic Activities,Therapeutic Exercises Modalities Cold Pack/Ice Massage,Hot Packs Next Visit Focus/Plan Next Note Type Treatment Note Next Visit Plan Review transfers and pivot turns WB # /c FWW. Continue PT for functional strengthening LE's and UE's, transfer training, pre-gait and gait training with post-op boot and Even-up (shoe lift RLE) when patient obtains including use of scale for patient feedback regarding weight-bearing percentage.
--- NOTE | 2023-10-24 10:40 | PT.OTN ---
Current Diagnoses Other hammer toe(s) (acquired), left foot (10/24/23) Dislocation of metatarsophalangeal joint of left lesser toe(s), sequela (10/24/23) Physical Therapy Treatment Note PT-OP-A Visit Information Start: 10/09/23 08:11 Freq: Status: Active Protocol: Document 10/24/23 09:48 SP (Rec: 10/24/23 11:48 SP [id number]) Out-Patient Physical Therapy Visit Information Visit Information Visit Type Treatment Note Visit Start Time 09:48 Visit Stop Time 10:40 Total Visit Minutes 52 Visit Number 5 Number of WELLNESS GUIDE Visits 3 Evaluation Information Evaluation Date 10/09/23 PT-OP-B Current Condition Start: 10/09/23 08:11 Freq: Status: Active Protocol: Document 10/14/23 09:52 SAK (Rec: 10/14/23 10:47 SAK [id number]) Current Condition History of Current Condition Current Complaints hammer toe left History of Current Condition Having surgery for hammer toe left foot 11/04/23. Has at home to help and sister will be coming to help for 2 weeks. Will be wearing a post-op boot left 6-9 weeks. Will be 25-50%, reports doctor told her she will be able to bear full weight on heel. Has walker and wheelchair for home use. (FWW) Has 3 stairs to enter the home , will have physical assist. Future Testing and Treatments Planned PT when approved by physician Treatment Goals Patient/Caregiver Goals Learn to ambulate with boot and walker maintaining appropriate weight-bearing status (25-50%). PT-OP-C Subjective Start: 10/09/23 08:11 Freq: Status: Active Protocol: Document 10/24/23 09:48 SP (Rec: 10/24/23 11:48 SP [id number]) OP-PT Subjective Patient Comments Patient Comments Pt reports her legs were little sore but arms were ok after last tx. She stated she is unsure if her underwear will fit over her boot. PT-OP-D Balance Start: 10/09/23 08:11 Freq: Status: Active Protocol: Document 10/09/23 08:16 SAK (Rec: 10/09/23 09:41 SAK [id number]) OP-PT Balance Assessment Sitting Balance Static Sitting Balance Ability Normal Dynamic Sitting Balance Ability Normal Standing Balance Static Standing Balance Ability Fair Dynamic Standing Balance Ability Fair Garza Fall Scale Copyright Permission PT-OP-G Mobility & Gait Start: 10/09/23 08:11 Freq: Status: Active Protocol: Document 10/09/23 08:16 MARIA LUZ (Rec: 10/09/23 09:[address] [facility] [id number]) OP Mobility Evaluation Transfers Sit to Stand cues for hinge at hips, knees behind toes Bed to Chair Transfers after instruction w/c to mat transfer with CGA simulating post-op Functional Movements Squats cues for knees behind toes, hip hinge, long spine Wheelchair Management Type of Wheelchair manual Assessment Details instructed in swing away footrests, brake locking, transfers OP Gait Assessment Gait Gait Assistance Required: Independent Assistive Devices Assistive Device Straight Cane Orthotic/Prosthetic Devices or Brace: No Comments Gait Comments Trendelenberg gait Stair Climbing Evaluation Comments Stair Climbing Comments not done today; ran out of time PT-OP-K Range of Motion Start: 10/09/23 08:11 Freq: Status: Active Protocol: Document 10/09/23 08:16 MARIA LUZ (Rec: 10/09/23 09:[address] [facility] [id number]) Shoulder Goniometric Range of Motion Shoulder zachery Shoulder ROM WFL Yes PT-OP-M Strength Start: 10/09/23 08:11 Freq: Status: Active Protocol: Document 10/09/23 08:16 MARIA LUZ (Rec: 10/09/23 09:[address] [facility] [id number]) Shoulder Strength Shoulder Manual Muscle Testing Right Flexion 4+ Good+ Extension 4 Good Abduction (C5) 4 Good External Rotation 4- Good- Internal Rotation 4 Good Left Flexion 4- Good- Extension 4- Good- Abduction (C5) 3+ Fair+ Adduction 4- Good- External Rotation 4- Good- Internal Rotation 4 Good Elbow/Forearm Strength Elbow and Forearm Manual Muscle Testing Right Flexion (C6) 4+ Good+ Extension (C7) 4+ Good+ Left Flexion (C6) 4- Good- Extension (C7) 4- Good- Wrist Strength Wrist Manual Muscle Testing zachery Flexion (C7) 4 Good Extension (C6) 4 Good Hand Social Services Analyst/Pinch Strength Hand Dominance Hand Dominance Right Hip Strength Hip Manual Muscle Testing Left Flexion (L2) 4 Good Extension (S1) 4- Good- Abduction 4- Good- External Rotation 4 Good Internal Rotation 4 Good Right Flexion (L2) 4- Good- Extension (S1) 2+ Poor+ Abduction 2+ Poor+ External Rotation 3+ Fair+ Internal Rotation 4 Good Knee Strength Knee Manual Muscle Testing Right Flexion (S2) 4+ Good+ Extension (L3) 4+ Good+ Left Flexion (S2) 5 Normal Extension (L3) 5 Normal Ankle/Foot Strength Ankle and Foot Manual Muscle Testing Left Dorsiflexion (L4) 4 Good Plantarflexion (S1) 4 Good Right Dorsiflexion (L4) 4- Good- Plantarflexion (S1) 4- Good- PT-OP-Q Treatments Start: 10/09/23 08:11 Freq: Status: Active Protocol: Document 10/24/23 09:48 SP (Rec: 10/24/23 11:48 SP [id number]) Therapeutic Exercises Sitting Exercises Shoulder rows & extension Sitting Exercise Name Reviewed past HEP support BUE WB for gait Side bilateral Resistance TB #2 orange > #3 green Reps/Minutes 8 reps x2 Comments cued full sit on chair, LLE out front if want, elong posture/no UT chair push up Sitting Exercise Name Reviewed HEP Reps/Minutes 10x, brief 3 sec rest UE muscle quiver tiring Comments cues for as little help from LE's as possible Therapeutic Activity Therapeutic Activity sit stand Name STS from chair /c proper TTWB- 20# WB LLE in boot Reps/Minutes 2x5 Comments cues for LLE out front, scoot fwd chair, heavy UE on chair arm/FWW, hip hinge over RLE to come to stand. pt demonstrated 20-40# WB on LLE, will continue to work on BUE/ RLE for WB for safety come post surgery. walker Reps/Minutes 20 ft Comments correct fit and use of pt's FWW, wt shift /c 20# WB use scale forward distance and pivot transfers Name bed<> chair, chair<> chair simulate potty chair Reps/Minutes 4x Comments occ cue for LLE stay in front assist 20# WB STS and stand step pivot transfer /c FWW. Improved with repetition. Use blankets for assimulation mgt in bed, suggested pillow case over boot for ease moving LLE around in bed so rubber sole doesn't catch sheets, also pillow between BLEs for hip/ back alignment comfort. donning/doffing post-op boot Name post op boot and elevated Even -Up shoe lift for RLE Comments patient Independent donning both. weight bearing Name parallel bars, FWW Comments occsional cues LLE front /c boot donned during gait/ transfers to assist maintain 20# WB. Improves self corrections in body and LLE positioning to maintain self. Gait Training Gait Activity /c FWW Description step to patterning, LLE fwd WB 20-50# Device Used FWW Level of Assistance S Distance/Duration 30 ft x4, 80 ft x2 Treatment Focus gait Step to while maintaining 20# WB LLE /c CAM boot donned Comments Pt improves with occasional cue for elongated posture, LLE front- states feels good LT and arm work but much easier with proper patterning LLE/FWW /RLE quick transition. PT-OP-T Assessment and Plan Start: 10/09/23 08:11 Freq: Status: Active Protocol: Document 10/24/23 09:48 SP (Rec: 10/24/23 11:48 SP [id number]) Physical Therapy Assessment Goals activity tolerance Impairment lower extremity functional scale (LEFS) 36 Warm In Worker Goal (LTG) Improve LEFS scale to at least 50% as measure of improved activity tolerance and LE function LTG Duration 10/31/23 Two Impairment functional strength impairment Impairment Due to right LE and zachery UE weakness patient has difficulty with ambulation and transfers not using left LE Short Term Goal (STG) Instruct in safe functional mobility including gait, standing bal, transfers while maintaining post-op precautions in preparation for left foot surgery STG Duration 10/26/24 Group Home Goal (LTG) Patient to be independent and safe with all functional mobility skills for post-op recovery from left foot surgery and be able to observe post-op precautions for safe healing of left foot LTG Duration 10/31/23 1 Impairment safety Impairment patient has knowledge deficit regarding safe use of post-op boot, walker, and wheelchair which she will be using during post-op recovery from foot surgery Short Term Goal (STG) instruct patient in safe use of post-op boot, Even-up shoe riser, walker, wheelchair STG Duration 10/26/23 Group Home Goal (LTG) Patient to be independent and safe with use of post-op boot, even-up shoe riser, wheelchair, walker LTG Duration 10/31/23 Assessment Summary Assessment Pt improvement forward and pivot transfers using FWW /c Cam boot and Even-up shoe lift donned, occasional-Min cues for LLE outfront step to patterning to assist in maintaining 20# WB. Today spent time on UE strengthening seated to progress BUE support endurance gait further distances. Time spent getting on/off bed with blanket mgt and boot, took suggestions of pillow over boot and pillows between BLEs for ease mobilizing. Discussed use of CP end tx if needed for swelling and pain control, pt stated will ask Doc if allowed to take off boot and put CP on at 10/29/23 pre op appt. Surgery date 11/04. Physical Therapy Plan Frequency and Duration Frequency of Treatment 2x/Week Duration of treatment (weeks) 4 Plan of Care Start Date 10/09/23 Plan of Care End Date 11/08/23 Therapeutic Interventions Therapeutic Interventions Gait Training,Home Exercise Program,Patient/Caregiver Education,Self-Care/Home Management,Therapeutic Activities,Therapeutic Exercises Modalities Cold Pack/Ice Massage,Hot Packs Next Visit Focus/Plan Next Note Type Treatment Note Next Visit Plan Review transfers bed mob and pivot turns WB # /c FWW. Next tx continue progress functional strengthening LE's and UE's, transfer training, pre-gait and gait training with post-op boot and Even-up (shoe lift RLE) when patient obtains including use of scale for patient feedback regarding weight-bearing percentage/lbs.
--- NOTE | 2023-10-28 13:40 | PT.OTN ---
Current Diagnoses Other hammer toe(s) (acquired), left foot (10/28/23) Dislocation of metatarsophalangeal joint of left lesser toe(s), sequela (10/28/23) Physical Therapy Treatment Note PT-OP-A Visit Information Start: 10/09/23 08:11 Freq: Status: Active Protocol: Document 10/28/23 09:45 SAK (Rec: 10/28/23 10:33 SAK [id number]) Out-Patient Physical Therapy Visit Information Visit Information Visit Type Treatment Note Visit Start Time 09:46 Visit Stop Time 10:30 Total Visit Minutes 44 Visit Number 6 Number of IP ARCHITECT Visits 0 Evaluation Information Evaluation Date 10/09/23 PT-OP-B Current Condition Start: 10/09/23 08:11 Freq: Status: Active Protocol: Document 10/14/23 09:52 SAK (Rec: 10/14/23 10:47 SAK [id number]) Current Condition History of Current Condition Current Complaints hammer toe left History of Current Condition Having surgery for hammer toe left foot 11/04/23. Has at home to help and sister will be coming to help for 2 weeks. Will be wearing a post-op boot left 6-9 weeks. Will be 25-50%, reports doctor told her she will be able to bear full weight on heel. Has walker and wheelchair for home use. (FWW) Has 3 stairs to enter the home , will have physical assist. Future Testing and Treatments Planned PT when approved by physician Treatment Goals Patient/Caregiver Goals Learn to ambulate with boot and walker maintaining appropriate weight-bearing status (25-50%). PT-OP-C Subjective Start: 10/09/23 08:11 Freq: Status: Active Protocol: Document 10/28/23 09:45 SAK (Rec: 10/28/23 13:35 SAK [id number]) OP-PT Subjective Patient Comments Patient Comments Patient reports she has a wheelchair but hasn't tried using yet, also hasn't tried walking on stairs in prep for surgery. States her shoulders are feeling stronger with the exercises she has been doing though still fatigues quickly with trying to practice walking with minimal weight on left LE. PT-OP-D Balance Start: 10/09/23 08:11 Freq: Status: Active Protocol: Document 10/09/23 08:16 SAK (Rec: 10/09/23 09:41 SAK [id number]) OP-PT Balance Assessment Sitting Balance Static Sitting Balance Ability Normal Dynamic Sitting Balance Ability Normal Standing Balance Static Standing Balance Ability Fair Dynamic Standing Balance Ability Fair Garza Fall Scale Copyright Permission PT-OP-G Mobility & Gait Start: 10/09/23 08:11 Freq: Status: Active Protocol: Document 10/09/23 08:16 SAK (Rec: 10/09/23 09:41 SAK [id number]) OP Mobility Evaluation Transfers Sit to Stand cues for hinge at hips, knees behind toes Bed to Chair Transfers after instruction w/c to mat transfer with CGA simulating post-op Functional Movements Squats cues for knees behind toes, hip hinge, long spine Wheelchair Management Type of Wheelchair manual Assessment Details instructed in swing away footrests, brake locking, transfers OP Gait Assessment Gait Gait Assistance Required: Independent Assistive Devices Assistive Device Straight Cane Orthotic/Prosthetic Devices or Brace: No Comments Gait Comments Trendelenberg gait Stair Climbing Evaluation Comments Stair Climbing Comments not done today; ran out of time PT-OP-K Range of Motion Start: 10/09/23 08:11 Freq: Status: Active Protocol: Document 10/09/23 08:16 SAK (Rec: 10/09/23 09:41 SAK [id number]) Shoulder Goniometric Range of Motion Shoulder zachery Shoulder ROM WFL Yes PT-OP-M Strength Start: 10/09/23 08:11 Freq: Status: Active Protocol: Document 10/09/23 08:16 SAK (Rec: 10/09/23 09:41 SAK [id number]) Shoulder Strength Shoulder Manual Muscle Testing Right Flexion 4+ Good+ Extension 4 Good Abduction (C5) 4 Good External Rotation 4- Good- Internal Rotation 4 Good Left Flexion 4- Good- Extension 4- Good- Abduction (C5) 3+ Fair+ Adduction 4- Good- External Rotation 4- Good- Internal Rotation 4 Good Elbow/Forearm Strength Elbow and Forearm Manual Muscle Testing Right Flexion (C6) 4+ Good+ Extension (C7) 4+ Good+ Left Flexion (C6) 4- Good- Extension (C7) 4- Good- Wrist Strength Wrist Manual Muscle Testing zachery Flexion (C7) 4 Good Extension (C6) 4 Good Hand Sawdust Drier/Pinch Strength Hand Dominance Hand Dominance Right Hip Strength Hip Manual Muscle Testing Left Flexion (L2) 4 Good Extension (S1) 4- Good- Abduction 4- Good- External Rotation 4 Good Internal Rotation 4 Good Right Flexion (L2) 4- Good- Extension (S1) 2+ Poor+ Abduction 2+ Poor+ External Rotation 3+ Fair+ Internal Rotation 4 Good Knee Strength Knee Manual Muscle Testing Right Flexion (S2) 4+ Good+ Extension (L3) 4+ Good+ Left Flexion (S2) 5 Normal Extension (L3) 5 Normal Ankle/Foot Strength Ankle and Foot Manual Muscle Testing Left Dorsiflexion (L4) 4 Good Plantarflexion (S1) 4 Good Right Dorsiflexion (L4) 4- Good- Plantarflexion (S1) 4- Good- PT-OP-Q Treatments Start: 10/09/23 08:11 Freq: Status: Active Protocol: Document 10/28/23 09:45 [facility] (Rec: 10/28/23 10:33 [facility] [id number]) Therapeutic Activity Therapeutic Activity stairs Reps/Minutes 2x Comments cam boot and even up, zachery railse in/out of shower Comments simulation, step over sideways , using walker w/c use Reps/Minutes 6 min Comments locking and unlocking brakes, propelling, swing away footrest, transfer safety. sit stand Name STS from chair /c proper TTWB- 20# WB LLE in boot Reps/Minutes 2x5 Comments cues for LLE out front, scoot fwd chair, heavy UE on chair arm/FWW, hip hinge over RLE to come to stand. pt demonstrated 20-40# WB on LLE, will continue to work on BUE/ RLE for WB for safety come post surgery. walker Reps/Minutes 20 ft Comments correct fit and use of pt's FWW, wt shift /c 20# WB use scale forward distance and pivot Gait Training Gait Activity /c FWW Description step to patterning, LLE fwd WB 20-50# Device Used FWW Level of Assistance S Distance/Duration 25 ft x 1, 15 ft x 2 Treatment Focus gait Step to while maintaining 20# WB LLE /c CAM boot donned PT-OP-T Assessment and Plan Start: 10/09/23 08:11 Freq: Status: Active Protocol: Document 10/28/23 09:45 [facility] (Rec: 10/28/23 10:33 [facility] [id number]) Physical Therapy Assessment Goals activity tolerance Impairment lower extremity functional scale (LEFS) 36 Senior Care Goal (LTG) Improve LEFS scale to at least 50% as measure of improved activity tolerance and LE function LTG Duration 10/31/23 Two Impairment functional strength impairment Impairment Due to right LE and zachery UE weakness patient has difficulty with ambulation and transfers not using left LE Short Term Goal (STG) Instruct in safe functional mobility including gait, standing bal, transfers while maintaining post-op precautions in preparation for left foot surgery STG Duration 10/26/24 Senior Care Goal (LTG) Patient to be independent and safe with all functional mobility skills for post-op recovery from left foot surgery and be able to observe post-op precautions for safe healing of left foot LTG Duration 10/31/23 1 Impairment safety Impairment patient has knowledge deficit regarding safe use of post-op boot, walker, and wheelchair which she will be using during post-op recovery from foot surgery Short Term Goal (STG) instruct patient in safe use of post-op boot, Even-up shoe riser, walker, wheelchair STG Duration 10/26/23 Residential Care Facility Manager Goal (LTG) Patient to be independent and safe with use of post-op boot, even-up shoe riser, wheelchair, walker LTG Duration 10/31/23 Assessment Summary Assessment Patient independent donning and doffing Cam boot and Even- up shoe. Instructed in use of 4WW and w/c for use after surgery, cues for safety with use of brakes, swing away footrests, brakes and lock function with 4WW. Cues for sequencing with stairs and step-to pattern, improved with practice. Pt. encouraged to obtain extension division director. Physical Therapy Plan Frequency and Duration Frequency of Treatment 2x/Week Duration of treatment (weeks) 4 Plan of Care Start Date 10/09/23 Plan of Care End Date 11/08/23 Therapeutic Interventions Therapeutic Interventions Gait Training,Home Exercise Program,Patient/Caregiver Education,Self-Care/Home Management,Therapeutic Activities,Therapeutic Exercises Modalities Cold Pack/Ice Massage,Hot Packs Next Visit Focus/Plan Next Note Type Treatment Note Next Visit Plan Final visit for transfers and use of adaptive equipment, ther ex, safety education. Complete all pt ed.
--- NOTE | 2023-10-30 09:44 | PT.OTN ---
Current Diagnoses Other hammer toe(s) (acquired), left foot (10/30/23) Dislocation of metatarsophalangeal joint of left lesser toe(s), sequela (10/30/23) Physical Therapy Treatment Note PT-OP-A Visit Information Start: 10/09/23 08:11 Freq: Status: Active Protocol: Document 10/30/23 09:04 SAK (Rec: 10/30/23 09:43 SAK [id number]) Out-Patient Physical Therapy Visit Information Visit Information Visit Type Treatment Note Visit Start Time 09:02 Visit Stop Time 09:45 Total Visit Minutes 43 Visit Number 6 Number of OPHTHALMIC MEDICAL TECHNICIAN Visits 0 PT-OP-B Current Condition Start: 10/09/23 08:11 Freq: Status: Active Protocol: Document 10/14/23 09:52 SAK (Rec: 10/14/23 10:47 SAK [id number]) Current Condition History of Current Condition Current Complaints hammer toe left History of Current Condition Having surgery for hammer toe left foot 11/04/23. Has at home to help and sister will be coming to help for 2 weeks. Will be wearing a post-op boot left 6-9 weeks. Will be 25-50%, reports doctor told her she will be able to bear full weight on heel. Has walker and wheelchair for home use. (FWW) Has 3 stairs to enter the home , will have physical assist. Future Testing and Treatments Planned PT when approved by physician Treatment Goals Patient/Caregiver Goals Learn to ambulate with boot and walker maintaining appropriate weight-bearing status (25-50%). PT-OP-C Subjective Start: 10/09/23 08:11 Freq: Status: Active Protocol: Document 10/30/23 09:04 SAK (Rec: 10/30/23 09:43 SAK [id number]) OP-PT Subjective Patient Comments Patient Comments States her doctor will be doing a different procedure ( no toe pinning, will be working on the muscles instead per patient) and she will still wear Cam boot but will be able to WBAT. Got a grabber for post-op. States she feels ready for surgery. PT-OP-D Balance Start: 10/09/23 08:11 Freq: Status: Active Protocol: Document 10/09/23 08:16 SAK (Rec: 10/09/23 09:41 SAK [id number]) OP-PT Balance Assessment Sitting Balance Static Sitting Balance Ability Normal Dynamic Sitting Balance Ability Normal Standing Balance Static Standing Balance Ability Fair Dynamic Standing Balance Ability Fair Garza Fall Scale Copyright Permission PT-OP-G Mobility & Gait Start: 10/09/23 08:11 Freq: Status: Active Protocol: Document 10/09/23 08:16 [facility] (Rec: 10/09/23 09:41 [facility] [id number]) OP Mobility Evaluation Transfers Sit to Stand cues for hinge at hips, knees behind toes Bed to Chair Transfers after instruction w/c to mat transfer with CGA simulating post-op Functional Movements Squats cues for knees behind toes, hip hinge, long spine Wheelchair Management Type of Wheelchair manual Assessment Details instructed in swing away footrests, brake locking, transfers OP Gait Assessment Gait Gait Assistance Required: Independent Assistive Devices Assistive Device Straight Cane Orthotic/Prosthetic Devices or Brace: No Comments Gait Comments Trendelenberg gait Stair Climbing Evaluation Comments Stair Climbing Comments not done today; ran out of time PT-OP-K Range of Motion Start: 10/09/23 08:11 Freq: Status: Active Protocol: Document 10/09/23 08:16 [facility] (Rec: 10/09/23 09:41 [facility] [id number]) Shoulder Goniometric Range of Motion Shoulder zachery Shoulder ROM WFL Yes PT-OP-M Strength Start: 10/09/23 08:11 Freq: Status: Active Protocol: Document 10/09/23 08:16 [facility] (Rec: 10/09/23 09:41 [facility] [id number]) Shoulder Strength Shoulder Manual Muscle Testing Right Flexion 4+ Good+ Extension 4 Good Abduction (C5) 4 Good External Rotation 4- Good- Internal Rotation 4 Good Left Flexion 4- Good- Extension 4- Good- Abduction (C5) 3+ Fair+ Adduction 4- Good- External Rotation 4- Good- Internal Rotation 4 Good Elbow/Forearm Strength Elbow and Forearm Manual Muscle Testing Right Flexion (C6) 4+ Good+ Extension (C7) 4+ Good+ Left Flexion (C6) 4- Good- Extension (C7) 4- Good- Wrist Strength Wrist Manual Muscle Testing zachery Flexion (C7) 4 Good Extension (C6) 4 Good Hand Powerhouse Mechanic/Pinch Strength Hand Dominance Hand Dominance Right Hip Strength Hip Manual Muscle Testing Left Flexion (L2) 4 Good Extension (S1) 4- Good- Abduction 4- Good- External Rotation 4 Good Internal Rotation 4 Good Right Flexion (L2) 4- Good- Extension (S1) 2+ Poor+ Abduction 2+ Poor+ External Rotation 3+ Fair+ Internal Rotation 4 Good Knee Strength Knee Manual Muscle Testing Right Flexion (S2) 4+ Good+ Extension (L3) 4+ Good+ Left Flexion (S2) 5 Normal Extension (L3) 5 Normal Ankle/Foot Strength Ankle and Foot Manual Muscle Testing Left Dorsiflexion (L4) 4 Good Plantarflexion (S1) 4 Good Right Dorsiflexion (L4) 4- Good- Plantarflexion (S1) 4- Good- PT-OP-Q Treatments Start: 10/09/23 08:11 Freq: Status: Active Protocol: Document 10/30/23 09:04 [facility]IA [facility] (Rec: 10/30/23 09:43 [facility] [id number]) Therapeutic Exercises Sitting Exercises row, shoulder ext, ER Equipment Used L1 Reps/Minutes 10x Comments seated for post-op december Reps/Minutes 10 LAQ Sitting Exercise Name added to HEP Side bilateral Resistance AROM ( LLE boot donned/R shoe lift donned) Reps/Minutes 5 SH x10 Comments reports quad, little hip abd quivering muscle tiring; unable hold full 5 se Standing Exercises side stepping Standing Exercise Name reviewed a past HEP for strengthening Side bilateral Resistance light contact table for stability/weak hip abd Equipment Used (had boot LLE, Even up on shoe RLE) Reps/Minutes 10 ft x2 laps Comments cued increase knee flexion for foot clearance, decrease LB recruitment squats Standing Exercise Name light chair sit/tap Equipment Used chair Reps/Minutes 10x2 (challenge /c boot donned due to lack L ankle DF) Comments cues for LE alignment, toes behind knees Therapeutic Activity Therapeutic Activity in/out of shower Comments simulation, step over sideways , using walker; hurdles, 4 block weight bearing Name parallel bars, FWW Comments wt shifts Gait Training Gait Activity /c FWW Description step to patterning, LLE fwd WB 20-full WB Device Used FWW Level of Assistance S Distance/Duration 40'x 2 Treatment Focus gait Step to while maintaining 20# WB LLE /c CAM boot donned PT-OP-T Assessment and Plan Start: 10/09/23 08:11 Freq: Status: Active Protocol: Document 10/30/23 09:04 [facility] (Rec: 10/30/23 09:43 SAK [id number]) Physical Therapy Assessment Goals activity tolerance Impairment lower extremity functional scale (LEFS) 36 Coal Mill Operator Goal (LTG) Improve LEFS scale to at least 50% as measure of improved activity tolerance and LE function LTG Duration 10/31/23 Two Impairment functional strength impairment Impairment Due to right LE and zachery UE weakness patient has difficulty with ambulation and transfers not using left LE Short Term Goal (STG) Instruct in safe functional mobility including gait, standing bal, transfers while maintaining post-op precautions in preparation for left foot surgery STG Duration 10/26/24 Correction Goal (LTG) Patient to be independent and safe with all functional mobility skills for post-op recovery from left foot surgery and be able to observe post-op precautions for safe healing of left foot LTG Duration 10/31/23 1 Impairment safety Impairment patient has knowledge deficit regarding safe use of post-op boot, walker, and wheelchair which she will be using during post-op recovery from foot surgery Short Term Goal (STG) instruct patient in safe use of post-op boot, Even-up shoe riser, walker, wheelchair STG Duration 10/26/23 Coal Mill Operator Goal (LTG) Patient to be independent and safe with use of post-op boot, even-up shoe riser, wheelchair, walker LTG Duration 10/31/23 Assessment Summary Assessment Patient has met all pre-op goals. Ready for discharge from PT. Has surgery 11/04/23. Physical Therapy Plan Frequency and Duration Frequency of Treatment 2x/Week Duration of treatment (weeks) 4 Plan of Care Start Date 10/09/23 Plan of Care End Date 11/08/23 Therapeutic Interventions Therapeutic Interventions Gait Training,Home Exercise Program,Patient/Caregiver Education,Self-Care/Home Management,Therapeutic Activities,Therapeutic Exercises Modalities Cold Pack/Ice Massage,Hot Packs Discharge Physical Therapy Discharge Reasons Goals Met Discharge Comments Patient to have toe surgery next week
== END 2023-11-20 10:05 | disposition home or self-care (01) ==
LOC: PHYS 09:00
PROVIDERS: Family Provider Internal Medicine; PCP Internal Medicine; Referring Provider Podiatrist; Visit Provider Podiatrist
DX: M20.42 Other hammer toe(s) (acquired), left foot (principal); S93.12 Dislocation of metatarsophalangeal joint
CPT/HCPCS: 97110; 97116; 97162; 97530; 97535

== ENCOUNTER → 2023-12-26 14:28 | Outpatient (CLI) | payer MEDICARE, OTHER, SELFPAY ==
--- NOTE | 2023-12-26 14:30 | DI.MG.S_ITS ---
BILATERAL DIGITAL SCREENING MAMMOGRAM 3D/2D WITH CAD: 12/26/2023 CLINICAL: Routine screening. Family history of breast cancer. Comparison is made to exams dated: 12/23/2022 mammogram, 12/19/2021 mammogram, and 12/06/2020 mammogram - [facility]. Both breasts are extremely dense, which lowers the sensitivity of mammography (category d />75% glandular tissue). Current study was also evaluated with a Computer Aided Detection (CAD) system. There are benign calcifications in the right breast. No significant masses, calcifications, or other findings are seen in either breast. There has been no significant interval change. IMPRESSION: BENIGN There is no mammographic evidence of malignancy. A 1 year screening mammogram is recommended. Based on the Tyrer Cuzick model (a risk assessment model) the patient's lifetime risk is 13.8% and her 10 year risk is 0.0%. According to the ACR, ACS, and NCCN guidelines, an annual breast MRI exam along with mammogram is recommended if the patient's lifetime risk is 20% or greater. This exam was interpreted at Station ID: [id number]. NOTE: For mammograms, a report in lay terms will be sent to the patient. Approximately 15% of breast malignancies will not be visualized mammographically. In the management of a palpable breast mass, a negative mammogram must not discourage biopsy of a clinically suspicious lesion. Electronically Signed By: Karyn guillory/nikita:12/26/2023 16:01:32 letter sent: Normal Exam ACR BI-RADS Category 2: Benign Finding(s) 3342F
== END ==
PROVIDERS: Family Provider Internal Medicine; PCP Internal Medicine; Referring Provider Internal Medicine; Visit Provider Internal Medicine
DX: Z12.31 Encounter for screening mammogram for malignant neoplasm of breast (principal); Z80.3 Family history of malignant neoplasm of breast; R92.343 Mammographic extreme density, bilateral breasts
CPT/HCPCS: 77063; 77067

== ENCOUNTER 2024-03-09 11:15 | Outpatient (RCR) | payer MEDICARE, OTHER, SELFPAY ==
--- NOTE | 2023-12-23 16:00 | PT.OPPOC ---
Physical, Occupational & Speech Therapy At [facility] Current Diagnoses Acquired deformities of toe(s), unspecified, left foot (12/23/23) Other instability, left ankle (12/23/23) Stiffness of left ankle, not elsewhere classified (12/23/23) Visit Care Team Role Provider Type Nata Reed DPM Referring Provider Non-Staff Specialty: Podiatry Address: [address] [place] [address], [phone] Email: Joshua Chin MD Attending Provider Physician Family Provider Primary Care Provider Specialty: Internal Medicine Address: [address] [place] [address], [facility] [address], [place], [address] Email: [email or web address] Plan Of Care PT-OP-T Assessment and Plan Start: 12/23/23 08:12 Freq: Status: Active Protocol: Document 12/23/23 14:30 [facility] (Rec: 12/24/23 09:24 [facility] [id number]) Physical Therapy Assessment Goals 4 Impairment Decreased strength left ankle DF/PF as compared to the right side Short Term Goal (STG) Serenity is educated in a home program for ankle strengthening STG Duration 4 weeks Door Frame Builder Goal (LTG) Serenity presents with improved strength for DF and PF of the left ankle LTG Duration 8 weeks 3 Impairment Serenity is limited to walking 1-2 blocks with SPC at this time Door Frame Builder Goal (LTG) Serenity is able to increase her walking distance to 1 mile or better with SPC LTG Duration 8 weeks 2 Impairment scar tissue restrictions on both the dorsal and plantar aspects of the great toe on the left causing reports of discomfort rated 2/10 with standing and walking Short Term Goal (STG) Serenity is able to tolerate gentle scar tissue mobilization to assist with improved mobility of the tissue around her great toe on the left STG Duration 4 weeks activity tolerance Impairment lower extremity functional scale (LEFS) 34 Alf Goal (LTG) Serenity reports a overall improvement with functional movements and has improved her score by 8-10 points LTG Duration 12 weeks Assessment Summary Assessment Serenity is a 78 year old female who presents today s/p left second toe amputation and percutaneous tenotomy of the left second and 4th toes as well as arthrodesis of left metatarsophalangeal joint on . Serenity had suffered from a hammer toe on her 2nd toe on the left that was crossed over her great toe making walking difficult and painful for her. At this time she feels she is walking better and she is using a SPC for walking. She notes pain is 2/10 and it is described more as a discomfort from the swelling she is feeling at the plantar aspect of the base of her great toe. She also describes discomfort on the dorsal aspect of the great toe along the scar. With exam today there is scar tissue present on the scar over her great toe as well as scarring from the second toe amputation . There is swelling under the base of the great toe and into the web space of where her second toe was amputated on the plantar surface. I did start with scar tissue massage today and Serenity was shown how to use vitamin E on her scars with self massage for home. This tissue work felt really good to her today. She does present with a small amount of ROM loss into DF and PF on the left as compared to her right. She presents with good great toe extension for walking. Serenity has difficulty with activities that require standing on one leg as this challenges her balance at this time. She reports difficulty getting into and out of the bath. She is limited to 1-2 blocks distance for walking at this time and has quite a bit of difficulty with squatting. Treatment for Serenity will include working to reduce her scar tissue and swelling especially at great toe (both plantar and dorsal aspects), ankle ROM and strength, balance and gait training. Serenity is a good candidate for PT Physical Therapy Plan Frequency and Duration Frequency of Treatment 2x/Week Duration of treatment (weeks) 8 Plan of Care Start Date 12/23/23 Plan of Care End Date 02/17/24 Therapeutic Interventions Therapeutic Interventions Home Exercise Program,Manual Therapy,Neuromuscular Re- education,Patient/Caregiver Education,Self-Care/Home Management,Soft Tissue Mobilization,Therapeutic Exercises Next Visit Focus/Plan Next Note Type Treatment Note Next Visit Plan Check in with how Serenity did using a frozen water bottle to roll the bottom of her foot on and with her theraband ankle exercises. Work on scar tissue massage over the plantar and dorsal aspects of the great toe and plantar fascia. Begin working on mechanics of gait with pushoff from the left foot. Assess hip strength next visit Plan of Care Dates Plan of Care Start Date 12/23/23 Plan of Care End Date 02/17/24 Electronically Signed by: Dahlia Bedolla, PT 12/25/23 1129 If you are in agreement with this Plan of Care, please return a signed and dated copy. I have reviewed this Plan of Care and certify that the skilled therapy services above are required to meet the patient?s needs. Physician Signature Date Printed Name and Credentials Clinical Instructor Signature Printed Name and Credentials
--- NOTE | 2023-12-23 16:00 | PT.OIE ---
Current Diagnoses Acquired deformities of toe(s), unspecified, left foot (12/23/23) Other instability, left ankle (12/23/23) Stiffness of left ankle, not elsewhere classified (12/23/23) Past Medical History (Last Reviewed 10/09/23 @ 15:55 by Joshua Chin MD) Cancer Cataracts, bilateral (~2015) Chicken pox Chronic hyponatremia Chronic renal failure, stage 3 (moderate) Constipation Cyclothymia Depression Dysphagia Fecal incontinence (~2014) Fractures (~2004) Gastroesophageal reflux disease with esophagitis Genital warts (~1984) Heart palpitations History of urinary incontinence (~2014) Incomplete left bundle branch block (LBBB) Lumbar spinal stenosis Measles Mixed urge and stress incontinence Osteopenia Osteoporosis, unspecified Overactive bladder Sciatica Urge incontinence Urinary frequency UTI (urinary tract infection) Viral cardiomyopathy Weight loss Past Surgical History (Last Reviewed 10/09/23 @ 15:55 by Joshua Chin MD) Anesthesia H/O hernia repair History of vaginal hysterectomy (~1996) Melanoma (~1981) Visit Care Team Role Provider Type Nata Reed DPM Referring Provider Non-Staff Specialty: Podiatry Address: [address] [place] [address], [phone] Email: Joshua Chin MD Attending Provider Physician Family Provider Primary Care Provider Specialty: Internal Medicine Address: [address] [place] [address], [address], [address] Email: [email or web address] Physical Therapy Initial Evaluation PT-OP-A Visit Information Start: 12/23/23 08:12 Freq: Status: Active Protocol: Document 12/23/23 14:31 [facility] (Rec: 12/23/23 14:35 [facility] [id number]) Out-Patient Physical Therapy Visit Information Visit Information Visit Type Initial Evaluation Visit Start Time 14:30 Visit Stop Time 15:15 Visit Number 1 Evaluation Information Evaluation Date 12/23/23 PT-OP-B Current Condition Start: 12/23/23 08:12 Freq: Status: Active Protocol: Document 12/23/23 14:30 [facility] (Rec: 12/23/23 15:12 [facility] [id number]) Current Condition History of Current Condition Onset Date 11/04/23 Current Complaints pain 2/10 left foot, decreased tolerance for walking and balance History of Current Condition November 04 she underwent a 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 At the same time she had a arthrodesis of the left metatarsophalangeal joint and percutaneous tenotomy of the left second and fourth toes. At this time Serenity is not walking as well as she would like to, she rates her discomfort as a 2/10, bending her toes is the hardest and it still is swollen. She was using a cane prior to her surgery. She reports most of her swelling feels like its on the bottom of her foot at the bottom of the great toe. She has tried using vitamin E on her scars PT-OP-C Subjective Start: 12/23/23 08:12 Freq: Status: Active Protocol: Document 12/23/23 14:30 [facility] (Rec: 12/24/23 09:44 [facility] [id number]) Patient Questionnaires Lower Extremity Functional Scale LEFS Score 34 LEFS Impairment 40 to 59% Impaired (Score 32- 47) PT-OP-J Posture/Palpation/Skin Start: 12/23/23 08:12 Freq: Status: Active Protocol: Document 12/23/23 14:30 [facility] (Rec: 12/24/23 09:24 [facility] [id number]) Palpation Assessment Location left web space between first and third toes Palpation Findings Edema,Soft Tissue Tightness, Tenderness Palpation Details scar tissue present from amputation of the second toe on the left side in the web space dorsal aspect of great toe Palpation Findings Edema,Soft Tissue Tightness Palpation Details scar tissue restrictions on the left great toe from the arthrodesis of the left metararsophalangeal going plantar aspect of the great toe left Palpation Findings Edema,Soft Tissue Tightness, Tenderness Palpation Details swelling and tenderness on the plantar aspect of the base of the great toe and where amputation was done for the second toe. PT-OP-K Range of Motion Start: 12/23/23 08:12 Freq: Status: Active Protocol: Document 12/23/23 14:30 [facility] (Rec: 12/24/23 09:39 [facility] [id number]) Ankle and Foot Goniometric Range of Motion Ankle and Foot Right Ankle/Foot ROM WFL Yes Testing Position Supine Dorsiflexion with Knee Extended 10 Plantarflexion 15 Left Ankle/Foot ROM WFL No Testing Position Supine Dorsiflexion with Knee Extended 5 Plantarflexion 10 Ankle and Foot ROM Limitations ROM Limitations Soft Tissue Tightness,Muscle Weakness PT-OP-M Strength Start: 12/24/23 09:16 Freq: Status: Active Protocol: Document 12/23/23 14:30 [facility] (Rec: 12/24/23 09:39 [facility] [id number]) Ankle/Foot Strength Ankle and Foot Manual Muscle Testing Right Dorsiflexion (L4) 5 Normal Plantarflexion (S1) 5 Normal Left Dorsiflexion (L4) 3+ Fair+ Plantarflexion (S1) 3+ Fair+ PT-OP-N Lymphedema Start: 12/24/23 09:35 Freq: Status: Active Protocol: Document 12/23/23 14:30 [facility] (Rec: 12/24/23 09:37 [facility] [id number]) Lymphedema Measurements Lower Extremity Circumference Measurements Right MT Heads 19.05 cm Left MT Heads 21.59 cm PT-OP-Q Treatments Start: 12/23/23 08:12 Freq: Status: Active Protocol: Document 12/23/23 15:12 [facility] (Rec: 12/23/23 15:14 [facility] [id number]) Therapeutic Exercises Supine Exercises long sitting ankle circles with resistance Reps/Minutes x 20 reps long sitting ankle plantar flexion /DF with resistance band Reps/Minutes x 20 reps Other Exercises frozen water bottle foot rolling Reps/Minutes 2-5 minutes Comments pt was educated to roll her foot on a frozen water bottle or small ball PT-OP-T Assessment and Plan Start: 12/23/23 08:12 Freq: Status: Active Protocol: Document 12/23/23 14:30 [facility] (Rec: 12/24/23 09:24 [facility] [id number]) Physical Therapy Assessment Goals 4 Impairment Decreased strength left ankle DF/PF as compared to the right side Short Term Goal (STG) Serenity is educated in a home program for ankle strengthening STG Duration 4 weeks Airborne Operations Manager Goal (LTG) Serenity presents with improved strength for DF and PF of the left ankle LTG Duration 8 weeks 3 Impairment Serenity is limited to walking 1-2 blocks with SPC at this time Intermediate Goal (LTG) Serenity is able to increase her walking distance to 1 mile or better with SPC LTG Duration 8 weeks 2 Impairment scar tissue restrictions on both the dorsal and plantar aspects of the great toe on the left causing reports of discomfort rated 2/10 with standing and walking Short Term Goal (STG) Serenity is able to tolerate gentle scar tissue mobilization to assist with improved mobility of the tissue around her great toe on the left STG Duration 4 weeks activity tolerance Impairment lower extremity functional scale (LEFS) 34 Airborne Operations Manager Goal (LTG) Serenity reports a overall improvement with functional movements and has improved her score by 8-10 points LTG Duration 12 weeks Assessment Summary Assessment Serenity is a 78 year old female who presents today s/p left second toe amputation and percutaneous tenotomy of the left second and 4th toes as well as arthrodesis of left metatarsophalangeal joint on . Serenity had suffered from a hammer toe on her 2nd toe on the left that was crossed over her great toe making walking difficult and painful for her. At this time she feels she is walking better and she is using a SPC for walking. She notes pain is 2/10 and it is described more as a discomfort from the swelling she is feeling at the plantar aspect of the base of her great toe. She also describes discomfort on the dorsal aspect of the great toe along the scar. With exam today there is scar tissue present on the scar over her great toe as well as scarring from the second toe ampulation . There is swelling under the base of the great toe and into the web space of where her second toe was amputated on the plantar surface. I did start with scar tissue massage today and Serenity was shown how to use vitamin E on her scars with self massage for home. This tissue work felt really good to her today. She does present with a small amount of ROM loss into DF and PF on the left as compared to her right. She presents with good great toe extension for walking. Serenity has difficulty with activities that require standing on one leg as this challanges her balance at this time. She reports difficulty getting into and out of the bath. She is limited to 1-2 blocks distance for walking at this time and has quite a bit of difficulty with squatting. Treatment for Serenity will include working to reduce her scar tissue and swelling especially at great toe (both plantar and dorsal aspects), ankle ROM and strength, balance and gait training. Serenity is a good candidate for PT Physical Therapy Plan Frequency and Duration Frequency of Treatment 2x/Week Duration of treatment (weeks) 8 Plan of Care Start Date 12/23/23 Plan of Care End Date 02/17/24 Therapeutic Interventions Therapeutic Interventions Home Exercise Program,Manual Therapy,Neuromuscular Re- education,Patient/Caregiver Education,Self-Care/Home Management,Soft Tissue Mobilization,Therapeutic Exercises Next Visit Focus/Plan Next Note Type Treatment Note Next Visit Plan Check in with how Serenity did using a frozen water bottle to roll the bottom of her foot on and with her theraband ankle exercises. Work on scar tissue massage over the plantar and dorsal aspects of the great toe and plantar fascia. Begin working on mechanics of gait with pushoff from the left foot. Assess hip strength next visit
--- NOTE | 2023-12-25 11:30 | PT.OPPOC ---
Physical, Occupational & Speech Therapy At [facility] Current Diagnoses Acquired deformities of toe(s), unspecified, left foot (12/23/23) Other instability, left ankle (12/23/23) Stiffness of left ankle, not elsewhere classified (12/23/23) Visit Care Team Role Provider Type Nata Reed DPM Referring Provider Non-Staff Specialty: Podiatry Address: [address] [place] [address], [phone] Email: Joshua Chin MD Attending Provider Physician Family Provider Primary Care Provider Specialty: Internal Medicine Address: [address] [place] [address], [facility] [address], [address] Email: [email or web address] Plan Of Care PT-OP-T Assessment and Plan Start: 12/23/23 08:12 Freq: Status: Active Protocol: Document 12/23/23 14:30 [facility] (Rec: 12/24/23 09:24 [facility] [id number]) Physical Therapy Assessment Goals 4 Impairment Decreased strength left ankle DF/PF as compared to the right side Short Term Goal (STG) Serenity is educated in a home program for ankle strengthening STG Duration 4 weeks Irish Moss Operator Goal (LTG) Serenity presents with improved strength for DF and PF of the left ankle LTG Duration 8 weeks 3 Impairment Serenity is limited to walking 1-2 blocks with SPC at this time Irish Moss Operator Goal (LTG) Serenity is able to increase her walking distance to 1 mile or better with SPC LTG Duration 8 weeks 2 Impairment scar tissue restrictions on both the dorsal and plantar aspects of the great toe on the left causing reports of discomfort rated 2/10 with standing and walking Short Term Goal (STG) Serenity is able to tolerate gentle scar tissue mobilization to assist with improved mobility of the tissue around her great toe on the left STG Duration 4 weeks activity tolerance Impairment lower extremity functional scale (LEFS) 34 Nursing Home Goal (LTG) Serenity reports a overall improvement with functional movements and has improved her score by 8-10 points LTG Duration 12 weeks Assessment Summary Assessment Serenity is a 78 year old female who presents today s/p left second toe amputation and percutaneous tenotomy of the left second and 4th toes as well as arthrodesis of left metatarsophalangeal joint on . Serenity had suffered from a hammer toe on her 2nd toe on the left that was crossed over her great toe making walking difficult and painful for her. At this time she feels she is walking better and she is using a SPC for walking. She notes pain is 2/10 and it is described more as a discomfort from the swelling she is feeling at the plantar aspect of the base of her great toe. She also describes discomfort on the dorsal aspect of the great toe along the scar. With exam today there is scar tissue present on the scar over her great toe as well as scarring from the second toe ampulation . There is swelling under the base of the great toe and into the web space of where her second toe was amputated on the plantar surface. I did start with scar tissue massage today and Serenity was shown how to use vitamin E on her scars with self massage for home. This tissue work felt really good to her today. She does present with a small amount of ROM loss into DF and PF on the left as compared to her right. She presents with good great toe extension for walking. Serenity has difficulty with activities that require standing on one leg as this challanges her balance at this time. She reports difficulty getting into and out of the bath. She is limited to 1-2 blocks distance for walking at this time and has quite a bit of difficulty with squatting. Treatment for Serenity will include working to reduce her scar tissue and swelling especially at great toe (both plantar and dorsal aspects), ankle ROM and strength, balance and gait training. Serenity is a good candidate for PT Physical Therapy Plan Frequency and Duration Frequency of Treatment 2x/Week Duration of treatment (weeks) 8 Plan of Care Start Date 12/23/23 Plan of Care End Date 02/17/24 Therapeutic Interventions Therapeutic Interventions Home Exercise Program,Manual Therapy,Neuromuscular Re- education,Patient/Caregiver Education,Self-Care/Home Management,Soft Tissue Mobilization,Therapeutic Exercises Next Visit Focus/Plan Next Note Type Treatment Note Next Visit Plan Check in with how Serenity did using a frozen water bottle to roll the bottom of her foot on and with her theraband ankle exercises. Work on scar tissue massage over the plantar and dorsal aspects of the great toe and plantar fascia. Begin working on mechanics of gait with pushoff from the left foot. Assess hip strength next visit Plan of Care Dates Plan of Care Start Date 12/23/23 Plan of Care End Date 02/17/24 Electronically Signed by: Dahlia Bedolla, PT 12/25/23 2169 If you are in agreement with this Plan of Care, please return a signed and dated copy. I have reviewed this Plan of Care and certify that the skilled therapy services above are required to meet the patient?s needs. Physician Signature Date Printed Name and Credentials Clinical Instructor Signature Printed Name and Credentials
--- NOTE | 2023-12-26 08:10 | PT.OTN ---
Current Diagnoses Acquired deformities of toe(s), unspecified, left foot (12/26/23) Other instability, left ankle (12/26/23) Stiffness of left ankle, not elsewhere classified (12/26/23) Physical Therapy Treatment Note PT-OP-A Visit Information Start: 12/23/23 08:12 Freq: Status: Active Protocol: Document 12/26/23 07:30 [facility] (Rec: 12/26/23 08:19 [facility] [id number]) Out-Patient Physical Therapy Visit Information Visit Information Visit Type Treatment Note Visit Start Time 07:30 Visit Stop Time 08:10 Visit Number 2 Number of MANAGER STRATEGIC ALLIANCES Visits 1 Evaluation Information Evaluation Date 12/23/23 PT-OP-B Current Condition Start: 12/23/23 08:12 Freq: Status: Active Protocol: Document 12/23/23 14:30 [facility] (Rec: 12/23/23 15:12 [facility] [id number]) Current Condition History of Current Condition Onset Date 11/04/23 Current Complaints pain 2/10 left foot, decreased tolerance for walking and balance History of Current Condition November 04 she underwent a 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 At the same time she had a arthrodesis of the left metatarsophalangeal joint and percutaneous tenotomy of the left second and fourth toes. At this time Serenity is not walking as well as she would like to, she rates her discomfort as a 2/10, bending her toes is the hardest and it still is swollen. She was using a cane prior to her surgery. She reports most of her swelling feels like its on the bottom of her foot at the bottom of the great toe. She has tried using vitamin E on her scars PT-OP-C Subjective Start: 12/23/23 08:12 Freq: Status: Active Protocol: Document 12/26/23 07:30 [facility] (Rec: 12/26/23 08:19 SP [id number]) OP-PT Subjective Patient Comments Patient Comments Pt reports foot feeling better . Doing ankle exercises and using Vit E on scar. She reports didn't do the rolling her foot over the waterbottle. PT-OP-J Posture/Palpation/Skin Start: 12/23/23 08:12 Freq: Status: Active Protocol: Document 12/23/23 14:30 [facility] (Rec: 12/24/23 09:24 [facility] [id number]) Palpation Assessment Location left web space between first and third toes Palpation Findings Edema,Soft Tissue Tightness, Tenderness Palpation Details scar tissue present from amputation of the second toe on the left side in the web space dorsal aspect of great toe Palpation Findings Edema,Soft Tissue Tightness Palpation Details scar tissue restrictions on the left great toe from the arthrodesis of the left metararsophalangeal going plantar aspect of the great toe left Palpation Findings Edema,Soft Tissue Tightness, Tenderness Palpation Details swelling and tenderness on the plantar aspect of the base of the great toe and where amputation was done for the second toe. PT-OP-K Range of Motion Start: 12/23/23 08:12 Freq: Status: Active Protocol: Document 12/23/23 14:30 [facility] (Rec: 12/24/23 09:39 [facility] [id number]) Ankle and Foot Goniometric Range of Motion Ankle and Foot Right Ankle/Foot ROM WFL Yes Testing Position Supine Dorsiflexion with Knee Extended 10 Plantarflexion 15 Left Ankle/Foot ROM WFL No Testing Position Supine Dorsiflexion with Knee Extended 5 Plantarflexion 10 Ankle and Foot ROM Limitations ROM Limitations Soft Tissue Tightness,Muscle Weakness PT-OP-M Strength Start: 12/24/23 09:16 Freq: Status: Active Protocol: Document 12/23/23 14:30 [facility] (Rec: 12/24/23 09:39 [facility] [id number]) Ankle/Foot Strength Ankle and Foot Manual Muscle Testing Right Dorsiflexion (L4) 5 Normal Plantarflexion (S1) 5 Normal Left Dorsiflexion (L4) 3+ Fair+ Plantarflexion (S1) 3+ Fair+ PT-OP-N Lymphedema Start: 12/24/23 09:35 Freq: Status: Active Protocol: Document 12/23/23 14:30 [facility] (Rec: 12/24/23 09:37 [facility] [id number]) Lymphedema Measurements Lower Extremity Circumference Measurements Right MT Heads 19.05 cm Left MT Heads 21.59 cm PT-OP-Q Treatments Start: 12/23/23 08:12 Freq: Status: Active Protocol: Document 12/26/23 07:30 [facility] (Rec: 12/26/23 08:19 SP [id number]) Therapeutic Exercises Supine Exercises long sitting ankle circles with resistance Supine Exercise Name ABCs Resistance TB #1 Equipment Used cued slow Reps/Minutes x 22 reps Comments reports good ankle tiring effort vs just circles long sitting ankle plantar flexion /DF with resistance band Supine Exercise Name toe and ankle PF/eccentric extension Resistance TB #1 (hammock over f/b foot over toes) Reps/Minutes x 20 reps Comments cued slow eccentric Sitting Exercises toe flexion over ball Sitting Exercise Name added to HEP: 1, 3-4 MTPs Side left Resistance AROM Reps/Minutes trial x5 reps Comments toe flexion over ball, improved IP flexion & slight dip ext noted Other Exercises frozen water bottle foot rolling Other Exercise Name rolling plantarfascia over racquetball Reps/Minutes 20 sec- trial end tx Comments cued self plantar fascia and base MTP pressure elke Manual Therapy Treatment Soft Tissue Mobilization L foot Body Location 1&2, 3-5th MTP scar mobility Mobilization Type Cross-Friction,Myofascial Release,Rolling,Sustained Pressure,Other Intensity/Depth Superficial Body Position Inclined Long Sitting Comments Manual and ed scar mobility no ointment for better senior analyst developer, then use VIt E as has been. She reports very small scars under 3-5th MTPs for tendon lengthening but MANAGER STRATEGIC ALLIANCES unable to see. Joint Mobilizations L MTPs Joint DIP, IP, PIP Direction flex/ext/rot Grade II Body Position Long sitting Comments each jt and PIP flex, ext IP/ DIP for support ROM into improved WB and progress balance with ed self application L foot over R knee . Self-Care/Home Management Treatment Education Patient Education Home Exercise Program,Pain Management Other Education Ed use bag ángela, CP in PT under L base 1st MTP today for swelling and pain mgt, good reported response 1.5 min. Good understanding for home carryover. Initiated self STMs and jt support mobility. PT-OP-T Assessment and Plan Start: 12/23/23 08:12 Freq: Status: Active Protocol: Document 12/26/23 07:30 [facility] (Rec: 12/26/23 08:19 [facility] [id number]) Physical Therapy Assessment Goals 4 Impairment Decreased strength left ankle DF/PF as compared to the right side Short Term Goal (STG) Serenity is educated in a home program for ankle strengthening STG Duration 4 weeks Intermediate Goal (LTG) Serenity presents with improved strength for DF and PF of the left ankle LTG Duration 8 weeks 3 Impairment Serenity is limited to walking 1-2 blocks with SPC at this time Intermediate Goal (LTG) Serenity is able to increase her walking distance to 1 mile or better with SPC LTG Duration 8 weeks 2 Impairment scar tissue restrictions on both the dorsal and plantar aspects of the great toe on the left causing reports of discomfort rated 2/10 with standing and walking Short Term Goal (STG) Serenity is able to tolerate gentle scar tissue mobilization to assist with improved mobility of the tissue around her great toe on the left STG Duration 4 weeks activity tolerance Impairment lower extremity functional scale (LEFS) 34 Roll Forming Machine Set Up Mechanic Goal (LTG) Serenity reports a overall improvement with functional movements and has improved her score by 8-10 points LTG Duration 12 weeks Assessment Summary Assessment Pt responded well to manual and ed how improve self application home carryover. Improve scar mobility and MTP ROM with addition of flexion over racquetball and self CP for assist pain mgt base of L 1st MTP. Noted improved toe and ankle progression in ROM modification of TB hammock positioning during PF/ Eccentric DF to allow increase ROM. Pt would beneift from continued skilled therapy progress scar mobility and initiate arch lift and gait/ balance for endurance community ambulation. Pt reported painfree end tx. Physical Therapy Plan Frequency and Duration Frequency of Treatment 2x/Week Duration of treatment (weeks) 8 Plan of Care Start Date 12/23/23 Plan of Care End Date 02/17/24 Therapeutic Interventions Therapeutic Interventions Home Exercise Program,Manual Therapy,Neuromuscular Re- education,Patient/Caregiver Education,Self-Care/Home Management,Soft Tissue Mobilization,Therapeutic Exercises Next Visit Focus/Plan Next Note Type Treatment Note Next Visit Plan Next tx: Assess hip strength next visit. Check response modalities, HEP review. Continue scar mobility and toe ROM. POC: Begin working on mechanics of gait with pushoff from the left foot.
--- NOTE | 2023-12-29 08:23 | PT.OTN ---
Current Diagnoses Acquired deformities of toe(s), unspecified, left foot (12/29/23) Other instability, left ankle (12/29/23) Stiffness of left ankle, not elsewhere classified (12/29/23) Physical Therapy Treatment Note PT-OP-A Visit Information Start: 12/23/23 08:12 Freq: Status: Active Protocol: Document 12/29/23 07:29 SP (Rec: 12/29/23 08:19 SP [id number]) Out-Patient Physical Therapy Visit Information Visit Information Visit Type Treatment Note Visit Start Time 07:30 Visit Stop Time 08:23 Visit Number 3 Number of SOCIOLOGY INSTRUCTOR Visits 2 Evaluation Information Evaluation Date 12/23/23 PT-OP-B Current Condition Start: 12/23/23 08:12 Freq: Status: Active Protocol: Document 12/23/23 14:30 [facility] (Rec: 12/23/23 15:12 [facility] [id number]) Current Condition History of Current Condition Onset Date 11/04/23 Current Complaints pain 2/10 left foot, decreased tolerance for walking and balance History of Current Condition November 04 she underwent a 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 At the same time she had a arthrodesis of the left metatarsophalangeal joint and percutaneous tenotomy of the left second and fourth toes. At this time Serenity is not walking as well as she would like to, she rates her discomfort as a 2/10, bending her toes is the hardest and it still is swollen. She was using a cane prior to her surgery. She reports most of her swelling feels like its on the bottom of her foot at the bottom of the great toe. She has tried using vitamin E on her scars PT-OP-C Subjective Start: 12/23/23 08:12 Freq: Status: Active Protocol: Document 12/29/23 07:29 SP (Rec: 12/29/23 08:19 SP [id number]) OP-PT Subjective Patient Comments Patient Comments Pt reported her L 1st great toe scar was pretty sore after last tx. Recommended using massage cream this tx. SHe thought the hammock modification to HEP PF/DF was ok. PT-OP-J Posture/Palpation/Skin Start: 12/23/23 08:12 Freq: Status: Active Protocol: Document 12/23/23 14:30 [facility] (Rec: 12/24/23 09:24 [facility] [id number]) Palpation Assessment Location left web space between first and third toes Palpation Findings Edema,Soft Tissue Tightness, Tenderness Palpation Details scar tissue present from amputation of the second toe on the left side in the web space dorsal aspect of great toe Palpation Findings Edema,Soft Tissue Tightness Palpation Details scar tissue restrictions on the left great toe from the arthrodesis of the left metararsophalangeal going plantar aspect of the great toe left Palpation Findings Edema,Soft Tissue Tightness, Tenderness Palpation Details swelling and tenderness on the plantar aspect of the base of the great toe and where amputation was done for the second toe. PT-OP-K Range of Motion Start: 12/23/23 08:12 Freq: Status: Active Protocol: Document 12/23/23 14:30 [facility] (Rec: 12/24/23 09:39 [facility] [id number]) Ankle and Foot Goniometric Range of Motion Ankle and Foot Right Ankle/Foot ROM WFL Yes Testing Position Supine Dorsiflexion with Knee Extended 10 Plantarflexion 15 Left Ankle/Foot ROM WFL No Testing Position Supine Dorsiflexion with Knee Extended 5 Plantarflexion 10 Ankle and Foot ROM Limitations ROM Limitations Soft Tissue Tightness,Muscle Weakness PT-OP-M Strength Start: 12/24/23 09:16 Freq: Status: Active Protocol: Document 12/23/23 14:30 [facility] (Rec: 12/24/23 09:39 [facility] [id number]) Ankle/Foot Strength Ankle and Foot Manual Muscle Testing Right Dorsiflexion (L4) 5 Normal Plantarflexion (S1) 5 Normal Left Dorsiflexion (L4) 3+ Fair+ Plantarflexion (S1) 3+ Fair+ PT-OP-N Lymphedema Start: 12/24/23 09:35 Freq: Status: Active Protocol: Document 12/23/23 14:30 [facility] (Rec: 12/24/23 09:37 [facility] [id number]) Lymphedema Measurements Lower Extremity Circumference Measurements Right MT Heads 19.05 cm Left MT Heads 21.59 cm PT-OP-Q Treatments Start: 12/23/23 08:12 Freq: Status: Active Protocol: Document 12/29/23 07:29 SP (Rec: 12/29/23 08:19 SP [id number]) Therapeutic Exercises Supine Exercises long sitting ankle plantar flexion /DF with resistance band Supine Exercise Name toe and ankle PF/eccentric extension Resistance TB #1 (hammock over f/b foot over toes) Reps/Minutes x 20 reps Comments cued slow eccentric, toe long flexion 1st & 2nd noted Sitting Exercises arch lift Sitting Exercise Name sit & stand pos- added to HEP Equipment Used contact counter Reps/Minutes 3 SH x5 reps Comments only heel lift comfort range due to discomfort PIP L1st toe flexion over ball Sitting Exercise Name Reviewed HEP: 1, 3-4 MTPs Side left Resistance AROM Equipment Used racquetball under proximal base of PIP Reps/Minutes 2 x5 reps- noted encourages intrinic/arch Comments toe flexion over ball, improved PIP flexion & slight dip ext 1&3rd noted Other Exercises frozen water bottle foot rolling Other Exercise Name rolling plantarfascia over racquetball Reps/Minutes 20 sec- trial end tx Comments cued self plantar fascia and base MTP pressure elke Manual Therapy Treatment Soft Tissue Mobilization L foot Body Location 1&2, 3-5th MTP scar mobility Mobilization Type Cross-Friction,Myofascial Release,Rolling,Sustained Pressure,Other Intensity/Depth Superficial Body Position Inclined Long Sitting Comments Manual and ed scar mobility no 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 She reports very small scars under 3-5th MTPs for tendon lengthening but SOCIOLOGY INSTRUCTOR unable to see. Joint Mobilizations L MTPs Joint DIP, IP, PIP Direction flex/ext/rot Grade II Body Position Long sitting Comments each jt and PIP flex, ext IP/ DIP for support ROM into improved WB and progress balance with ed self application L foot over R knee . Neuro Re-Education Treatment Balance Activities balance Equipment counter nearby safety contact PRN Comments 1. stride stance 2 apart 30 each LE pos 2. semitandem- 13 R fwd, 30 L 3. tandem- B fwd 30 Self-Care/Home Management Treatment Education Patient Education Home Exercise Program,Pain Management Other Education Ed use CP for comfort pain/ swelling. PT-OP-T Assessment and Plan Start: 12/23/23 08:12 Freq: Status: Active Protocol: Document 12/29/23 07:29 SP (Rec: 12/29/23 08:19 SP [id number]) Physical Therapy Assessment Goals 4 Impairment Decreased strength left ankle DF/PF as compared to the right side Short Term Goal (STG) Serenity is educated in a home program for ankle strengthening STG Duration 4 weeks Supervisor Scrap Preparation Goal (LTG) Serenity presents with improved strength for DF and PF of the left ankle LTG Duration 8 weeks 3 Impairment Serenity is limited to walking 1-2 blocks with SPC at this time Supervisor Scrap Preparation Goal (LTG) Serenity is able to increase her walking distance to 1 mile or better with SPC LTG Duration 8 weeks 2 Impairment scar tissue restrictions on both the dorsal and plantar aspects of the great toe on the left causing reports of discomfort rated 2/10 with standing and walking Short Term Goal (STG) Serenity is able to tolerate gentle scar tissue mobilization to assist with improved mobility of the tissue around her great toe on the left STG Duration 4 weeks activity tolerance Impairment lower extremity functional scale (LEFS) 34 Supervisor Scrap Preparation Goal (LTG) Serenity reports a overall improvement with functional movements and has improved her score by 8-10 points LTG Duration 12 weeks Assessment Summary Assessment Pt improved tolerance with given feedback toPTA for manual scar mobility using blue container cream and DIP, IP, PIP MTP mobility with continued ed self can to encourage Physical Therapy Plan Frequency and Duration Frequency of Treatment 2x/Week Duration of treatment (weeks) 8 Plan of Care Start Date 12/23/23 Plan of Care End Date 02/17/24 Therapeutic Interventions Therapeutic Interventions Home Exercise Program,Manual Therapy,Neuromuscular Re- education,Patient/Caregiver Education,Self-Care/Home Management,Soft Tissue Mobilization,Therapeutic Exercises Next Visit Focus/Plan Next Note Type Treatment Note Next Visit Plan Next tx: Assess hip strength next visit. Check response modalities, arch lift & toe ext AROM with support needed, HEP review including balance. Continue scar mobility and L toe AAROM into DIP ext, IP & PIP ext. POC: Begin working on mechanics of gait with pushoff from the left foot.
--- NOTE | 2024-01-01 14:20 | PT.OTN ---
Current Diagnoses Acquired deformities of toe(s), unspecified, left foot (01/01/24) Other instability, left ankle (01/01/24) Stiffness of left ankle, not elsewhere classified (01/01/24) Physical Therapy Treatment Note PT-OP-A Visit Information Start: 12/23/23 08:12 Freq: Status: Active Protocol: Document 01/01/24 09:45 [facility] (Rec: 01/01/24 10:36 [facility] [id number]) Out-Patient Physical Therapy Visit Information Visit Information Visit Type Treatment Note Visit Start Time 09:45 Visit Stop Time 10:30 Visit Number 4 Number of VOCATIONAL EVALUATOR Visits 0 Evaluation Information Evaluation Date 12/23/23 PT-OP-B Current Condition Start: 12/23/23 08:12 Freq: Status: Active Protocol: Document 12/23/23 14:30 [facility] (Rec: 12/23/23 15:12 [facility] [id number]) Current Condition History of Current Condition Onset Date 11/04/23 Current Complaints pain 2/10 left foot, decreased tolerance for walking and balance History of Current Condition November 04 she underwent a 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 At the same time she had a arthrodesis of the left metatarsophalangeal joint and percutaneous tenotomy of the left second and fourth toes. At this time Serenity is not walking as well as she would like to, she rates her discomfort as a 2/10, bending her toes is the hardest and it still is swollen. She was using a cane prior to her surgery. She reports most of her swelling feels like its on the bottom of her foot at the bottom of the great toe. She has tried using vitamin E on her scars PT-OP-C Subjective Start: 12/23/23 08:12 Freq: Status: Active Protocol: Document 01/01/24 09:45 [facility] (Rec: 01/01/24 10:36 [facility] [id number]) OP-PT Subjective Patient Comments Patient Comments Serenity reports she is doing really well with her foot, she has been icing. She has been able to stand 40 min to a hour. She is happy with the care she is receiving Patient Reported Progress Improving PT-OP-J Posture/Palpation/Skin Start: 12/23/23 08:12 Freq: Status: Active Protocol: Document 12/23/23 14:30 [facility] (Rec: 12/24/23 09:24 [facility] [id number]) Palpation Assessment Location left web space between first and third toes Palpation Findings Edema,Soft Tissue Tightness, Tenderness Palpation Details scar tissue present from amputation of the second toe on the left side in the web space dorsal aspect of great toe Palpation Findings Edema,Soft Tissue Tightness Palpation Details scar tissue restrictions on the left great toe from the arthrodesis of the left metararsophalangeal going plantar aspect of the great toe left Palpation Findings Edema,Soft Tissue Tightness, Tenderness Palpation Details swelling and tenderness on the plantar aspect of the base of the great toe and where amputation was done for the second toe. PT-OP-K Range of Motion Start: 12/23/23 08:12 Freq: Status: Active Protocol: Document 12/23/23 14:30 [facility] (Rec: 12/24/23 09:39 [facility] [id number]) Ankle and Foot Goniometric Range of Motion Ankle and Foot Right Ankle/Foot ROM WFL Yes Testing Position Supine Dorsiflexion with Knee Extended 10 Plantarflexion 15 Left Ankle/Foot ROM WFL No Testing Position Supine Dorsiflexion with Knee Extended 5 Plantarflexion 10 Ankle and Foot ROM Limitations ROM Limitations Soft Tissue Tightness,Muscle Weakness PT-OP-M Strength Start: 12/24/23 09:16 Freq: Status: Active Protocol: Document 12/23/23 14:30 [facility] (Rec: 12/24/23 09:39 [facility] [id number]) Ankle/Foot Strength Ankle and Foot Manual Muscle Testing Right Dorsiflexion (L4) 5 Normal Plantarflexion (S1) 5 Normal Left Dorsiflexion (L4) 3+ Fair+ Plantarflexion (S1) 3+ Fair+ PT-OP-N Lymphedema Start: 12/24/23 09:35 Freq: Status: Active Protocol: Document 12/23/23 14:30 [facility] (Rec: 12/24/23 09:37 [facility] [id number]) Lymphedema Measurements Lower Extremity Circumference Measurements Right MT Heads 19.05 cm Left MT Heads 21.59 cm PT-OP-Q Treatments Start: 12/23/23 08:12 Freq: Status: Active Protocol: Document 01/01/24 09:45 [facility] (Rec: 01/01/24 14:19 [facility] [id number]) Therapeutic Exercises Supine Exercises long sitting ankle circles with resistance Supine Exercise Name ABCs Resistance TB #1 Equipment Used cued slow Reps/Minutes x20 reps Comments reports good ankle tiring effort vs just circles long sitting ankle plantar flexion /DF with resistance band Supine Exercise Name toe and ankle PF/eccentric extension Resistance TB #1 (hammock over f/b foot over toes) Reps/Minutes x 20 reps Comments cued slow eccentric, toe long flexion 1st & 2nd noted Manual Therapy Treatment Soft Tissue Mobilization plantar fascia attachments to the MTP's Mobilization Type Myofascial Release Comments MFR of the plantar fascia especially at the base of the Metatarsal heads. 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 She reports very small scars under 3-5th MTPs for tendon lengthening but VOCATIONAL EVALUATOR unable to see. Joint Mobilizations L MTPs Joint DIP, IP, PIP Direction flex/ext/rot Grade II Body Position Long sitting Comments each jt and PIP flex, ext IP/ DIP for support ROM into improved WB and progress balance with ed self application L foot over R knee . Self-Care/Home Management Treatment Education Patient Education Home Exercise Program,Pain Management Other Education pt was educated on trying spacers between her toes and also on altra wide toe box shoes for gardening and walking PT-OP-T Assessment and Plan Start: 12/23/23 08:12 Freq: Status: Active Protocol: Document 01/01/24 09:45 [facility] (Rec: 01/01/24 14:19 [facility] [id number]) Physical Therapy Assessment Assessment Summary Assessment Serenity is liking the hammock technique for theraband and she is working hard at getting the mobility of her third and 4th toes. I did talk to her today about using spacers at night to try to work on stretching a bit between her toes. She was also educated on altra shoes due to the wide toe box as she would like to start going out to garden Physical Therapy Plan Frequency and Duration Frequency of Treatment 2x/Week Duration of treatment (weeks) 8 Plan of Care Start Date 12/23/23 Plan of Care End Date 02/17/24 Therapeutic Interventions Therapeutic Interventions Home Exercise Program,Manual Therapy,Neuromuscular Re- education,Patient/Caregiver Education,Self-Care/Home Management,Soft Tissue Mobilization,Therapeutic Exercises Next Visit Focus/Plan Next Note Type Treatment Note Next Visit Plan work towards standing balance and gait training next visit.
--- NOTE | 2024-01-06 16:30 | PT.OTN ---
Current Diagnoses Acquired deformities of toe(s), unspecified, left foot (01/06/24) Other instability, left ankle (01/06/24) Stiffness of left ankle, not elsewhere classified (01/06/24) Physical Therapy Treatment Note PT-OP-A Visit Information Start: 12/23/23 08:12 Freq: Status: Active Protocol: Document 01/06/24 08:13 [facility] (Rec: 01/06/24 08:25 [facility] [id number]) Out-Patient Physical Therapy Visit Information Visit Information Visit Type Treatment Note Visit Start Time 08:15 Visit Stop Time 09:00 Visit Number 5 Number of SPECIAL EDUCATION SCIENCE TEACHER Visits 0 PT-OP-B Current Condition Start: 12/23/23 08:12 Freq: Status: Active Protocol: Document 12/23/23 14:30 [facility] (Rec: 12/23/23 15:12 [facility] [id number]) Current Condition History of Current Condition Onset Date 11/04/23 Current Complaints pain 2/10 left foot, decreased tolerance for walking and balance History of Current Condition November 04 she underwent a 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 At the same time she had a arthrodesis of the left metatarsophalangeal joint and percutaneous tenotomy of the left second and fourth toes. At this time Serenity is not walking as well as she would like to, she rates her discomfort as a 2/10, bending her toes is the hardest and it still is swollen. She was using a cane prior to her surgery. She reports most of her swelling feels like its on the bottom of her foot at the bottom of the great toe. She has tried using vitamin E on her scars PT-OP-C Subjective Start: 12/23/23 08:12 Freq: Status: Active Protocol: Document 01/06/24 08:13 [facility] (Rec: 01/06/24 08:25 [facility] [id number]) OP-PT Subjective Patient Comments Patient Comments pt notes she is concerned about the amount of her big toe is in a valgus position and she still feels like it is still swollen from surgery, she doesn't report any increased pain from last visit but she just feels that its taking a lot of time to heal. PT-OP-J Posture/Palpation/Skin Start: 12/23/23 08:12 Freq: Status: Active Protocol: Document 12/23/23 14:30 [facility] (Rec: 12/24/23 09:24 [facility] [id number]) Palpation Assessment Location left web space between first and third toes Palpation Findings Edema,Soft Tissue Tightness, Tenderness Palpation Details scar tissue present from amputation of the second toe on the left side in the web space dorsal aspect of great toe Palpation Findings Edema,Soft Tissue Tightness Palpation Details scar tissue restrictions on the left great toe from the arthrodesis of the left metararsophalangeal going plantar aspect of the great toe left Palpation Findings Edema,Soft Tissue Tightness, Tenderness Palpation Details swelling and tenderness on the plantar aspect of the base of the great toe and where amputation was done for the second toe. PT-OP-K Range of Motion Start: 12/23/23 08:12 Freq: Status: Active Protocol: Document 12/23/23 14:30 [facility] (Rec: 12/24/23 09:39 [facility] [id number]) Ankle and Foot Goniometric Range of Motion Ankle and Foot Right Ankle/Foot ROM WFL Yes Testing Position Supine Dorsiflexion with Knee Extended 10 Plantarflexion 15 Left Ankle/Foot ROM WFL No Testing Position Supine Dorsiflexion with Knee Extended 5 Plantarflexion 10 Ankle and Foot ROM Limitations ROM Limitations Soft Tissue Tightness,Muscle Weakness PT-OP-M Strength Start: 12/24/23 09:16 Freq: Status: Active Protocol: Document 12/23/23 14:30 [facility] (Rec: 12/24/23 09:39 [facility] [id number]) Ankle/Foot Strength Ankle and Foot Manual Muscle Testing Right Dorsiflexion (L4) 5 Normal Plantarflexion (S1) 5 Normal Left Dorsiflexion (L4) 3+ Fair+ Plantarflexion (S1) 3+ Fair+ PT-OP-N Lymphedema Start: 12/24/23 09:35 Freq: Status: Active Protocol: Document 12/23/23 14:30 [facility] (Rec: 12/24/23 09:37 [facility] [id number]) Lymphedema Measurements Lower Extremity Circumference Measurements Right MT Heads 19.05 cm Left MT Heads 21.59 cm PT-OP-Q Treatments Start: 12/23/23 08:12 Freq: Status: Active Protocol: Document 01/06/24 08:15 [facility] (Rec: 01/07/24 08:40 [facility] [id number]) Therapeutic Exercises Standing Exercises standing dynamic calf stretch Side left Reps/Minutes pt to work on 5-10 reps Comments standing calf stretch with knee flexion/extension for dynamic movement Manual Therapy Treatment Soft Tissue Mobilization plantar fascia attachments to the MTP's Mobilization Type Myofascial Release Comments MFR of the plantar fascia especially at the base of the Metatarsal heads. 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 She reports very small scars under 3-5th MTPs for tendon lengthening but SPECIAL EDUCATION SCIENCE TEACHER unable to see. Joint Mobilizations L MTPs Joint DIP, IP, PIP Direction flex/ext/rot Grade II Body Position Long sitting Comments each jt and PIP flex, ext IP/ DIP for support ROM into improved WB and progress balance with ed self application L foot over R knee . PT-OP-R Modalities Start: 01/07/24 08:40 Freq: Status: Active Protocol: Document 01/06/24 08:15 [facility] (Rec: 01/07/24 08:41 [facility] [id number]) Hot Pack/Cold Pack Treatment Ice Massage Location plantar aspect of the left foot near base of great toe Patient Position Sitting Comments pt tolearate approx 1 min only PT-OP-T Assessment and Plan Start: 12/23/23 08:12 Freq: Status: Active Protocol: Document 01/06/24 08:15 [facility] (Rec: 01/07/24 08:40 [facility] [id number]) Physical Therapy Assessment Assessment Summary Assessment I talked to Serenity about her surgery today and we discussed that her surgery was not to correct the bunion but to help with hammer toes. We discussed using spacers which she hasn't tried yet. I also discussed ice use for home and she hasn't tried rolling her foot on the frozen water bottle yet. I did ice massage today to the plantar aspect of her great toe where but she did not tolerate this for more than a minute. We decided to have her try a gel iced pack at home. I did measure today again around the base of the met heads and she has decreased in swelling from 21.59 cm at inital eval to now 20.5 cm. Her right foot measures 19.05 cm. There has been improvement with decreased swelling and we talked al ot today about how long it takes to heal after surgery especially for a distal extremity. I also started standing calf stretch with dynamic knee flexion/ extension to get into the soleus. Physical Therapy Plan Frequency and Duration Frequency of Treatment 2x/Week Duration of treatment (weeks) 8 Plan of Care Start Date 12/23/23 Plan of Care End Date 02/17/24 Therapeutic Interventions Therapeutic Interventions Home Exercise Program,Manual Therapy,Neuromuscular Re- education,Patient/Caregiver Education,Self-Care/Home Management,Soft Tissue Mobilization,Therapeutic Exercises Next Visit Focus/Plan Next Note Type Treatment Note Next Visit Plan review how Serenity did with icing her foot at home and if she tried her spacers. Review standing dynamic calf stretch. work towards standing balance and gait. Continue with manual work to help improve ROM and decrease swelling. IF pt is okay with it try ice massage again on bottom of great toe.
--- NOTE | 2024-01-08 11:25 | PT.OTN ---
Current Diagnoses Acquired deformities of toe(s), unspecified, left foot (01/08/24) Other instability, left ankle (01/08/24) Stiffness of left ankle, not elsewhere classified (01/08/24) Physical Therapy Treatment Note PT-OP-A Visit Information Start: 12/23/23 08:12 Freq: Status: Active Protocol: Document 01/08/24 10:35 SP (Rec: 01/08/24 11:21 SP [id number]) Out-Patient Physical Therapy Visit Information Visit Information Visit Type Treatment Note Visit Start Time 10:35 Visit Stop Time 11:25 Visit Number 6 Number of HEATING WORKER Visits 1 Evaluation Information Evaluation Date 12/23/23 PT-OP-B Current Condition Start: 12/23/23 08:12 Freq: Status: Active Protocol: Document 12/23/23 14:30 [facility] (Rec: 12/23/23 15:12 [facility] [id number]) Current Condition History of Current Condition Onset Date 11/04/23 Current Complaints pain 2/10 left foot, decreased tolerance for walking and balance History of Current Condition November 04 she underwent a 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 At the same time she had a arthrodesis of the left metatarsophalangeal joint and percutaneous tenotomy of the left second and fourth toes. At this time Serenity is not walking as well as she would like to, she rates her discomfort as a 2/10, bending her toes is the hardest and it still is swollen. She was using a cane prior to her surgery. She reports most of her swelling feels like its on the bottom of her foot at the bottom of the great toe. She has tried using vitamin E on her scars PT-OP-C Subjective Start: 12/23/23 08:12 Freq: Status: Active Protocol: Document 01/08/24 10:35 SP (Rec: 01/08/24 11:21 SP [id number]) OP-PT Subjective Patient Comments Patient Comments Pt reports the hard time using ice whole foot, ice cup is to messy, waterbottle to hard to get around forefoot, bag peas better but won't fold top and bottom. She stated did use spacer, just took out before came and little sore 2nd toe but does help alignment more straight. PT-OP-J Posture/Palpation/Skin Start: 12/23/23 08:12 Freq: Status: Active Protocol: Document 12/23/23 14:30 [facility] (Rec: 12/24/23 09:24 [facility] [id number]) Palpation Assessment Location left web space between first and third toes Palpation Findings Edema,Soft Tissue Tightness, Tenderness Palpation Details scar tissue present from amputation of the second toe on the left side in the web space dorsal aspect of great toe Palpation Findings Edema,Soft Tissue Tightness Palpation Details scar tissue restrictions on the left great toe from the arthrodesis of the left metararsophalangeal going plantar aspect of the great toe left Palpation Findings Edema,Soft Tissue Tightness, Tenderness Palpation Details swelling and tenderness on the plantar aspect of the base of the great toe and where amputation was done for the second toe. PT-OP-K Range of Motion Start: 12/23/23 08:12 Freq: Status: Active Protocol: Document 12/23/23 14:30 [facility] (Rec: 12/24/23 09:39 [facility] [id number]) Ankle and Foot Goniometric Range of Motion Ankle and Foot Right Ankle/Foot ROM WFL Yes Testing Position Supine Dorsiflexion with Knee Extended 10 Plantarflexion 15 Left Ankle/Foot ROM WFL No Testing Position Supine Dorsiflexion with Knee Extended 5 Plantarflexion 10 Ankle and Foot ROM Limitations ROM Limitations Soft Tissue Tightness,Muscle Weakness PT-OP-M Strength Start: 12/24/23 09:16 Freq: Status: Active Protocol: Document 12/23/23 14:30 [facility] (Rec: 12/24/23 09:39 [facility] [id number]) Ankle/Foot Strength Ankle and Foot Manual Muscle Testing Right Dorsiflexion (L4) 5 Normal Plantarflexion (S1) 5 Normal Left Dorsiflexion (L4) 3+ Fair+ Plantarflexion (S1) 3+ Fair+ PT-OP-N Lymphedema Start: 12/24/23 09:35 Freq: Status: Active Protocol: Document 01/06/24 08:15 [facility] (Rec: 01/07/24 08:42 [facility] [id number]) Lymphedema Measurements Lower Extremity Circumference Measurements Left MT Heads 20.5 cm PT-OP-Q Treatments Start: 12/23/23 08:12 Freq: Status: Active Protocol: Document 01/08/24 10:35 SP (Rec: 01/08/24 11:21 SP [id number]) Therapeutic Exercises Sitting Exercises toe abduction Sitting Exercise Name reviewed toe abduction Side left Reps/Minutes 5 SH x10 Comments improvement abd and ext 1, 3-4 post cues&PROM 1&3 Standing Exercises STS, taps Standing Exercise Name 1. STS 2. eccentric taps to table Equipment Used to 18 table Reps/Minutes x5 STS, taps x3 Comments cued hip hinge, knee behind forefoot standing dynamic calf stretch Standing Exercise Name reviewed pt HOs Side left Resistance L ft front and back positions Reps/Minutes pt to work on 5-10 reps Comments standing calf stretch with knee flexion/extension for dynamic movement Other Exercises frozen water bottle foot rolling Other Exercise Name pt states bag peas better Side left Comments suggested use 2: 1 forefoot supported against pillow/other dorsal ft Manual Therapy Treatment Soft Tissue Mobilization plantar fascia attachments to the MTP's Mobilization Type Myofascial Release Comments MFR of the plantar fascia especially at the base of the Metatarsal heads. 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 PROM L 1st toe abd midline, stretch. Joint Mobilizations L MTPs Joint DIP, IP, PIP Direction flex/ext/rot Grade II Body Position Long sitting Comments each jt and PIP flex, ext IP/ DIP for support ROM into improved WB and progress balance with ed self application L foot over R knee . Neuro Re-Education Treatment Balance Activities balance Equipment counter nearby safety contact PRN Comments 1. stride stance 2 apart 2. semitandem PT-OP-R Modalities Start: 01/07/24 08:40 Freq: Status: Active Protocol: Document 01/08/24 10:35 SP (Rec: 01/08/24 11:21 SP [id number]) Hot Pack/Cold Pack Treatment CP Location L 1-3>4-5 PIP Patient Position Hooklying Comments 10 min A & P PT-OP-T Assessment and Plan Start: 12/23/23 08:12 Freq: Status: Active Protocol: Document 01/08/24 10:35 SP (Rec: 01/08/24 11:21 SP [id number]) Physical Therapy Assessment Goals 4 Impairment Decreased strength left ankle DF/PF as compared to the right side Short Term Goal (STG) Serenity is educated in a home program for ankle strengthening STG Duration 4 weeks Senior Care Goal (LTG) Serenity presents with improved strength for DF and PF of the left ankle LTG Duration 8 weeks 3 Impairment Serenity is limited to walking 1-2 blocks with SPC at this time Senior Care Goal (LTG) Serenity is able to increase her walking distance to 1 mile or better with SPC LTG Duration 8 weeks 2 Impairment scar tissue restrictions on both the dorsal and plantar aspects of the great toe on the left causing reports of discomfort rated 2/10 with standing and walking Short Term Goal (STG) Serenity is able to tolerate gentle scar tissue mobilization to assist with improved mobility of the tissue around her great toe on the left STG Duration 4 weeks activity tolerance Impairment lower extremity functional scale (LEFS) 34 Senior Care Goal (LTG) Serenity reports a overall improvement with functional movements and has improved her score by 8-10 points LTG Duration 12 weeks Assessment Summary Assessment HEATING WORKER suggested pt use 2 bag peas for dorsal and plantar forefoot while with up against supported pillow to allow mold around her forefoot better, inside pillow case for safety not burn her skin. Reviewed dynamic L ankle and calf mobility to allow gait phases and balance smaller LUCINDA , cues for rhomboid fac midline centering. Physical Therapy Plan Frequency and Duration Frequency of Treatment 2x/Week Duration of treatment (weeks) 8 Plan of Care Start Date 12/23/23 Plan of Care End Date 02/17/24 Therapeutic Interventions Therapeutic Interventions Home Exercise Program,Manual Therapy,Neuromuscular Re- education,Patient/Caregiver Education,Self-Care/Home Management,Soft Tissue Mobilization,Therapeutic Exercises Next Visit Focus/Plan Next Note Type Treatment Note Next Visit Plan review how Serenity did with icing her foot at home and if she tried her spacers. Review standing dynamic calf stretch. work towards standing balance and gait. Continue with manual work to help improve ROM and decrease swelling. IF pt is okay with it try ice massage again on bottom of great toe.
--- NOTE | 2024-01-13 12:58 | PT.OTN ---
Current Diagnoses Acquired deformities of toe(s), unspecified, left foot (01/13/24) Other instability, left ankle (01/13/24) Stiffness of left ankle, not elsewhere classified (01/13/24) Physical Therapy Treatment Note PT-OP-A Visit Information Start: 12/23/23 08:12 Freq: Status: Active Protocol: Document 01/13/24 08:16 [facility] (Rec: 01/13/24 09:00 [facility] [id number]) Out-Patient Physical Therapy Visit Information Visit Information Visit Type Progress Note Visit Start Time 08:15 Visit Stop Time 09:00 Visit Number 7 PT-OP-B Current Condition Start: 12/23/23 08:12 Freq: Status: Active Protocol: Document 12/23/23 14:30 [facility] (Rec: 12/23/23 15:12 [facility] [id number]) Current Condition History of Current Condition Onset Date 11/04/23 Current Complaints pain 2/10 left foot, decreased tolerance for walking and balance History of Current Condition November 04 she underwent a 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 At the same time she had a arthrodesis of the left metatarsophalangeal joint and percutaneous tenotomy of the left second and fourth toes. At this time Serenity is not walking as well as she would like to, she rates her discomfort as a 2/10, bending her toes is the hardest and it still is swollen. She was using a cane prior to her surgery. She reports most of her swelling feels like its on the bottom of her foot at the bottom of the great toe. She has tried using vitamin E on her scars PT-OP-C Subjective Start: 12/23/23 08:12 Freq: Status: Active Protocol: Document 01/13/24 08:16 [facility] (Rec: 01/13/24 09:00 [facility] [id number]) OP-PT Subjective Patient Comments Patient Comments pt reports she has a appointment with her doctor tomorrow am. She feels the swelling has gone down. She was on her feet quite a bit yesterday, she was at [facility] and [facility] and the sole of her foot hurt after wards. The ice worked wonderfully with two bags of peas Patient Reported Progress Improving PT-OP-J Posture/Palpation/Skin Start: 12/23/23 08:12 Freq: Status: Active Protocol: Document 12/23/23 14:30 [facility] (Rec: 12/24/23 09:24 [facility] [id number]) Palpation Assessment Location left web space between first and third toes Palpation Findings Edema,Soft Tissue Tightness, Tenderness Palpation Details scar tissue present from amputation of the second toe on the left side in the web space dorsal aspect of great toe Palpation Findings Edema,Soft Tissue Tightness Palpation Details scar tissue restrictions on the left great toe from the arthrodesis of the left metararsophalangeal going plantar aspect of the great toe left Palpation Findings Edema,Soft Tissue Tightness, Tenderness Palpation Details swelling and tenderness on the plantar aspect of the base of the great toe and where amputation was done for the second toe. PT-OP-K Range of Motion Start: 12/23/23 08:12 Freq: Status: Active Protocol: Document 12/23/23 14:30 [facility] (Rec: 12/24/23 09:39 [facility] [id number]) Ankle and Foot Goniometric Range of Motion Ankle and Foot Right Ankle/Foot ROM WFL Yes Testing Position Supine Dorsiflexion with Knee Extended 10 Plantarflexion 15 Left Ankle/Foot ROM WFL No Testing Position Supine Dorsiflexion with Knee Extended 5 Plantarflexion 10 Ankle and Foot ROM Limitations ROM Limitations Soft Tissue Tightness,Muscle Weakness PT-OP-M Strength Start: 12/24/23 09:16 Freq: Status: Active Protocol: Document 12/23/23 14:30 [facility] (Rec: 12/24/23 09:39 [facility] [id number]) Ankle/Foot Strength Ankle and Foot Manual Muscle Testing Right Dorsiflexion (L4) 5 Normal Plantarflexion (S1) 5 Normal Left Dorsiflexion (L4) 3+ Fair+ Plantarflexion (S1) 3+ Fair+ PT-OP-N Lymphedema Start: 12/24/23 09:35 Freq: Status: Active Protocol: Document 01/06/24 08:15 [facility] (Rec: 01/07/24 08:42 [facility] [id number]) Lymphedema Measurements Lower Extremity Circumference Measurements Left MT Heads 20.5 cm PT-OP-Q Treatments Start: 12/23/23 08:12 Freq: Status: Active Protocol: Document 01/13/24 08:15 [facility] (Rec: 01/14/24 12:58 [facility] [id number]) Therapeutic Exercises Supine Exercises ankle eversion with theraband Reps/Minutes 2 x 10 reps Comments tied loop around for B ankle eversion Sitting Exercises arch lift Sitting Exercise Name sit & stand pos- added to HEP Equipment Used contact counter Reps/Minutes 3 SH x5 reps Comments only heel lift comfort range due to discomfort PIP L1st Standing Exercises STS, taps Standing Exercise Name 1. STS 2. eccentric taps to table Equipment Used to 18 table Reps/Minutes x5 STS, taps x3 Comments cued hip hinge, knee behind forefoot standing dynamic calf stretch Standing Exercise Name reviewed pt HOs Side left Resistance L ft front and back positions Reps/Minutes pt to work on 5-10 reps Comments standing calf stretch with knee flexion/extension for dynamic movement Manual Therapy Treatment Soft Tissue Mobilization plantar fascia attachments to the MTP's Mobilization Type Myofascial Release Comments MFR of the plantar fascia especially at the base of the Metatarsal heads. L foot Body Location 1&2, 3-5th MTP scar mobility Mobilization Type Cross-Friction,Myofascial Release,Rolling,Sustained Pressure,Other Intensity/Depth Superficial Body Position Inclined Long Sitting Comments Manual and ed scar mobility no ointment for better [facility], then use VIt E as has been. PROM L 1st toe abd midline, stretch. Joint Mobilizations L MTPs Joint DIP, IP, PIP Direction flex/ext/rot Grade II Body Position Long sitting Comments each jt and PIP flex, ext IP/ DIP for support ROM into improved WB and progress balance with ed self application L foot over R knee . PT-OP-R Modalities Start: 01/07/24 08:40 Freq: Status: Active Protocol: Document 01/08/24 10:35 SP (Rec: 01/08/24 11:21 SP [id number]) Hot Pack/Cold Pack Treatment CP Location L 1-3>4-5 PIP Patient Position Hooklying Comments 10 min A & P PT-OP-T Assessment and Plan Start: 12/23/23 08:12 Freq: Status: Active Protocol: Document 01/13/24 08:16 [facility] (Rec: 01/13/24 09:00 [facility] [id number]) Physical Therapy Assessment Goals 3 Car Electronics Installer Goal (LTG) Serenity is no longer using a single point cane and feels she has improved her walking distance to 15-20 min Assessment Summary Assessment Serenity has been seen x 7 visits in PT s/p second toe amputation. She is progressing well with PT. We are working on scar tissue mobility, decreasing swelling, strengthening of the foot intrinsics and ankle muscles, ROM, balance and gait. Serenity is no longer using her SPC and her walking distance has increased. She is also feeling less fatigue with standing. Her swelling is slowing decreasing and circumferential measurements are decreasing. Serenity has been concerned about the valgus in her great toe and we did talk to her about using a seperator to help with gently stretching the great toe. She is tolerating this well. Serenity would benefit from continued PT Physical Therapy Plan Frequency and Duration Frequency of Treatment 2x/Week Duration of treatment (weeks) 8 Plan of Care Start Date 01/13/24 Plan of Care End Date 03/09/24 Therapeutic Interventions Therapeutic Interventions Home Exercise Program,Manual Therapy,Neuromuscular Re- education,Patient/Caregiver Education,Self-Care/Home Management,Soft Tissue Mobilization,Therapeutic Exercises Next Visit Focus/Plan Next Note Type Treatment Note Next Visit Plan Continue working towards standing balance and gait, continue manual work to help with ROM and decreased swelling. Encourage continued use of the ice for swelling
--- NOTE | 2024-01-13 13:01 | PT.OPPOC ---
Physical, Occupational & Speech Therapy At [facility] Current Diagnoses Acquired deformities of toe(s), unspecified, left foot (01/13/24) Other instability, left ankle (01/13/24) Stiffness of left ankle, not elsewhere classified (01/13/24) Visit Care Team Role Provider Type Nata Reed DPM Referring Provider Non-Staff Specialty: Podiatry Address: [address] [place] [address], [phone] Email: Joshua Chin MD Attending Provider Physician Family Provider Primary Care Provider Specialty: Internal Medicine Address: [address] [place] [address], [facility] [address], [place], [address] Email: [email or web address] Plan Of Care PT-OP-T Assessment and Plan Start: 12/23/23 08:12 Freq: Status: Active Protocol: Document 01/13/24 08:16 [facility] (Rec: 01/13/24 09:00 [facility] [id number]) Physical Therapy Assessment Goals 4 Impairment Decreased strength left ankle DF/PF as compared to the right side Short Term Goal (STG) Serenity is educated in a home program for ankle strengthening good progress STG Duration 4 weeks Long-Term Goal (LTG) Serenity presents with improved strength for DF and PF of the left ankle good progress LTG Duration 8 weeks 3 Impairment Serenity is limited to walking 1-2 blocks with SPC at this time Long-Term Goal (LTG) Serenity is no longer using a single point cane and feels she has improved her walking distance to 15-20 min excellent progress LTG Duration 8 weeks 2 Impairment scar tissue restrictions on both the dorsal and plantar aspects of the great toe on the left causing reports of discomfort rated 2/10 with standing and walking Short Term Goal (STG) Serenity is able to tolerate gentle scar tissue mobilization to assist with improved mobility of the tissue around her great toe on the left excellent progress STG Duration 4 weeks activity tolerance Impairment lower extremity functional scale (LEFS) 34 Long-Term Goal (LTG) Serenity reports a overall improvement with functional movements and has improved her score by 8-10 points LTG Duration 12 weeks Assessment Summary Assessment Serenity has been seen x 7 visits in PT s/p second toe amputation. She is progressing well with PT. We are working on scar tissue mobility, decreasing swelling, strengthening of the foot intrinsics and ankle muscles, ROM, balance and gait. Serenity is no longer using her SPC and her walking distance has increased. She is also feeling less fatigue with standing. Her swelling is slowing decreasing and circumferential measurements are decreasing. Serenity has been concerned about the valgus in her great toe and we did talk to her about using a seperator to help with gently stretching the great toe. She is tolerating this well. Serenity would benefit from continued PT Physical Therapy Plan Frequency and Duration Frequency of Treatment 2x/Week Duration of treatment (weeks) 8 Plan of Care Start Date 01/13/24 Plan of Care End Date 03/09/24 Therapeutic Interventions Therapeutic Interventions Home Exercise Program,Manual Therapy,Neuromuscular Re- education,Patient/Caregiver Education,Self-Care/Home Management,Soft Tissue Mobilization,Therapeutic Exercises Next Visit Focus/Plan Next Note Type Treatment Note Next Visit Plan Continue working towards standing balance and gait, continue manual work to help with ROM and decreased swelling. Encourage continued use of the ice for swelling Plan of Care Dates Plan of Care Start Date 01/13/24 Plan of Care End Date 03/09/24 Electronically Signed by: Dahlia Bedolla, PT 01/14/24 [id number] If you are in agreement with this Plan of Care, please return a signed and dated copy. I have reviewed this Plan of Care and certify that the skilled therapy services above are required to meet the patient?s needs. Physician Signature Date Printed Name and Credentials Clinical Instructor Signature Printed Name and Credentials
--- NOTE | 2024-01-16 08:58 | PT.OTN ---
Current Diagnoses Acquired deformities of toe(s), unspecified, left foot (01/16/24) Other instability, left ankle (01/16/24) Stiffness of left ankle, not elsewhere classified (01/16/24) Physical Therapy Treatment Note PT-OP-A Visit Information Start: 12/23/23 08:12 Freq: Status: Active Protocol: Document 01/16/24 08:16 SP (Rec: 01/16/24 09:03 SP [id number]) Out-Patient Physical Therapy Visit Information Visit Information Visit Type Treatment Note Visit Start Time 08:16 Visit Stop Time 08:58 Visit Number 8 Number of BAGGAGE CLERK Visits 1 Evaluation Information Evaluation Date 12/23/23 PT-OP-B Current Condition Start: 12/23/23 08:12 Freq: Status: Active Protocol: Document 12/23/23 14:30 [facility] (Rec: 12/23/23 15:12 [facility] [id number]) Current Condition History of Current Condition Onset Date 11/04/23 Current Complaints pain 2/10 left foot, decreased tolerance for walking and balance History of Current Condition November 04 she underwent a 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 At the same time she had a arthrodesis of the left metatarsophalangeal joint and percutaneous tenotomy of the left second and fourth toes. At this time Serenity is not walking as well as she would like to, she rates her discomfort as a 2/10, bending her toes is the hardest and it still is swollen. She was using a cane prior to her surgery. She reports most of her swelling feels like its on the bottom of her foot at the bottom of the great toe. She has tried using vitamin E on her scars PT-OP-C Subjective Start: 12/23/23 08:12 Freq: Status: Active Protocol: Document 01/16/24 08:16 SP (Rec: 01/16/24 09:03 SP [id number]) OP-PT Subjective Patient Comments Patient Comments Pt reports her follow up appt with physician provided molded hardened putty spacer between LLE 1-3 toes. PT-OP-J Posture/Palpation/Skin Start: 12/23/23 08:12 Freq: Status: Active Protocol: Document 12/23/23 14:30 [facility] (Rec: 12/24/23 09:24 [facility] [id number]) Palpation Assessment Location left web space between first and third toes Palpation Findings Edema,Soft Tissue Tightness, Tenderness Palpation Details scar tissue present from amputation of the second toe on the left side in the web space dorsal aspect of great toe Palpation Findings Edema,Soft Tissue Tightness Palpation Details scar tissue restrictions on the left great toe from the arthrodesis of the left metararsophalangeal going plantar aspect of the great toe left Palpation Findings Edema,Soft Tissue Tightness, Tenderness Palpation Details swelling and tenderness on the plantar aspect of the base of the great toe and where amputation was done for the second toe. PT-OP-K Range of Motion Start: 12/23/23 08:12 Freq: Status: Active Protocol: Document 12/23/23 14:30 [facility] (Rec: 12/24/23 09:39 [facility] [id number]) Ankle and Foot Goniometric Range of Motion Ankle and Foot Right Ankle/Foot ROM WFL Yes Testing Position Supine Dorsiflexion with Knee Extended 10 Plantarflexion 15 Left Ankle/Foot ROM WFL No Testing Position Supine Dorsiflexion with Knee Extended 5 Plantarflexion 10 Ankle and Foot ROM Limitations ROM Limitations Soft Tissue Tightness,Muscle Weakness PT-OP-M Strength Start: 12/24/23 09:16 Freq: Status: Active Protocol: Document 12/23/23 14:30 [facility] (Rec: 12/24/23 09:39 [facility] [id number]) Ankle/Foot Strength Ankle and Foot Manual Muscle Testing Right Dorsiflexion (L4) 5 Normal Plantarflexion (S1) 5 Normal Left Dorsiflexion (L4) 3+ Fair+ Plantarflexion (S1) 3+ Fair+ PT-OP-N Lymphedema Start: 12/24/23 09:35 Freq: Status: Active Protocol: Document 01/06/24 08:15 [facility] (Rec: 01/07/24 08:42 [facility] [id number]) Lymphedema Measurements Lower Extremity Circumference Measurements Left MT Heads 20.5 cm PT-OP-Q Treatments Start: 12/23/23 08:12 Freq: Status: Active Protocol: Document 01/16/24 08:16 SP (Rec: 01/16/24 09:03 SP [id number]) Therapeutic Exercises Supine Exercises ankle eversion with theraband Side bilateral Resistance TB #2 aqua green Reps/Minutes 3 x 10 reps Comments tied loop around for B ankle eversion long sitting ankle plantar flexion /DF with resistance band Supine Exercise Name toe and ankle PF/eccentric extension Resistance TB #2 aqua green (hammock over f/b foot over toes) Reps/Minutes x 20 reps Comments cued slow eccentric, toe long flexion 1st & 2nd noted Sitting Exercises toe abduction Sitting Exercise Name reviewed toe abduction- demos with ankle EV Side left Reps/Minutes 2x10, pause 1-2 sec Comments improvement abd and ext 1, 3-4 post cues&PROM 1&3 arch lift Sitting Exercise Name sit & stand pos- review HEP Equipment Used contact counter Reps/Minutes 3 SH x5 reps Comments only heel lift comfort range due to discomfort PIP L1st Standing Exercises standing dynamic calf stretch Standing Exercise Name reviewed pt HOs Side left Resistance L ft front and back positions Reps/Minutes pt to work on 5-10 reps Comments standing calf stretch with knee flexion/extension for dynamic movement Gait Training Gait Activity gait no AD Comments 6 [id number] ft Min/MOd Ed cues for taller posture, improved wt shift over RLE stance time and improved lessen LLE stride and adducted heel strike. Neuro Re-Education Treatment Balance Activities balance Comments 1. stagger HTS fine 2. semitandem HTs 3. tandem L ft fwd 23 sec, R ft fwd 7 sec 4. RLE Max LUE support 10 sec, LLE 5 sec no RUE and 10 sec light RUE WB on table PT-OP-R Modalities Start: 01/07/24 08:40 Freq: Status: Active Protocol: Document 01/08/24 10:35 SP (Rec: 01/08/24 11:21 SP [id number]) Hot Pack/Cold Pack Treatment CP Location L 1-3>4-5 PIP Patient Position Hooklying Comments 10 min A & P PT-OP-T Assessment and Plan Start: 12/23/23 08:12 Freq: Status: Active Protocol: Document 01/16/24 08:16 SP (Rec: 01/16/24 09:03 SP [id number]) Physical Therapy Assessment Goals 4 Impairment Decreased strength left ankle DF/PF as compared to the right side Short Term Goal (STG) Serenity is educated in a home program for ankle strengthening good progress STG Duration 4 weeks Usp Goal (LTG) Serenity presents with improved strength for DF and PF of the left ankle good progress LTG Duration 8 weeks 3 Impairment Serenity is limited to walking 1-2 blocks with SPC at this time Examiner Rating Clerk Goal (LTG) Serenity is no longer using a single point cane and feels she has improved her walking distance to 15-20 min excellent progress 01/16/24: progressingwalking about 15 min walking around [place] use of grocery cart, 6MWT 1005 ft no AD. LTG Duration 8 weeks progressing 01/16/24 2 Impairment scar tissue restrictions on both the dorsal and plantar aspects of the great toe on the left causing reports of discomfort rated 2/10 with standing and walking Short Term Goal (STG) Serenity is able to tolerate gentle scar tissue mobilization to assist with improved mobility of the tissue around her great toe on the left excellent progress STG Duration 4 weeks activity tolerance Impairment lower extremity functional scale (LEFS) 34 Examiner Rating Clerk Goal (LTG) Serenity reports a overall improvement with functional movements and has improved her score by 8-10 points LTG Duration 12 weeks Assessment Summary Assessment Pt improving with performance and form with her HEP. BAGGAGE CLERK suggested toe spacer received at Dr calderon, start wearing time 20 min-2 hrs at time and provide skin checks for safety , recommended bringing in her toe spacer to utilize during ex and standing activities for toe alignment and balance support. Provided cuing for elongated posturing to support increase stance time on RLE and lessen stride on LLE to allow improved stability and endurance gait progress distance community ambulation. Pt improving in time balance activities with noted toe abd positioning. Physical Therapy Plan Frequency and Duration Frequency of Treatment 2x/Week Duration of treatment (weeks) 8 Plan of Care Start Date 01/13/24 Plan of Care End Date 03/09/24 Therapeutic Interventions Therapeutic Interventions Home Exercise Program,Manual Therapy,Neuromuscular Re- education,Patient/Caregiver Education,Self-Care/Home Management,Soft Tissue Mobilization,Therapeutic Exercises Next Visit Focus/Plan Next Note Type Treatment Note Next Visit Plan Continue working towards standing balance and gait, continue manual work to help with ROM and decreased swelling. Encourage continued use of the ice for swelling
--- NOTE | 2024-01-20 13:04 | PT.OTN ---
Current Diagnoses Acquired deformities of toe(s), unspecified, left foot (01/20/24) Other instability, left ankle (01/20/24) Stiffness of left ankle, not elsewhere classified (01/20/24) Physical Therapy Treatment Note PT-OP-A Visit Information Start: 12/23/23 08:12 Freq: Status: Active Protocol: Document 01/20/24 08:13 [facility] (Rec: 01/20/24 09:00 [facility] [id number]) Out-Patient Physical Therapy Visit Information Visit Information Visit Type Treatment Note Visit Start Time 08:15 Visit Stop Time 09:00 Visit Number 9 Number of CERTIFIED MEETING PROFESSIONAL Visits 0 Evaluation Information Evaluation Date 12/23/23 PT-OP-B Current Condition Start: 12/23/23 08:12 Freq: Status: Active Protocol: Document 12/23/23 14:30 [facility] (Rec: 12/23/23 15:12 [facility] [id number]) Current Condition History of Current Condition Onset Date 11/04/23 Current Complaints pain 2/10 left foot, decreased tolerance for walking and balance History of Current Condition November 04 she underwent a 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 At the same time she had a arthrodesis of the left metatarsophalangeal joint and percutaneous tenotomy of the left second and fourth toes. At this time Serenity is not walking as well as she would like to, she rates her discomfort as a 2/10, bending her toes is the hardest and it still is swollen. She was using a cane prior to her surgery. She reports most of her swelling feels like its on the bottom of her foot at the bottom of the great toe. She has tried using vitamin E on her scars PT-OP-C Subjective Start: 12/23/23 08:12 Freq: Status: Active Protocol: Document 01/20/24 08:13 [facility] (Rec: 01/20/24 09:00 [facility] [id number]) OP-PT Subjective Patient Comments Patient Comments Serenity reports her spacer is very comfortable and she has been wearing it most of the day. She has been putting the spacer in around 9 am and wearing it until 6-7 pm. PT-OP-J Posture/Palpation/Skin Start: 12/23/23 08:12 Freq: Status: Active Protocol: Document 12/23/23 14:30 [facility] (Rec: 12/24/23 09:24 [facility] [id number]) Palpation Assessment Location left web space between first and third toes Palpation Findings Edema,Soft Tissue Tightness, Tenderness Palpation Details scar tissue present from amputation of the second toe on the left side in the web space dorsal aspect of great toe Palpation Findings Edema,Soft Tissue Tightness Palpation Details scar tissue restrictions on the left great toe from the arthrodesis of the left metararsophalangeal going plantar aspect of the great toe left Palpation Findings Edema,Soft Tissue Tightness, Tenderness Palpation Details swelling and tenderness on the plantar aspect of the base of the great toe and where amputation was done for the second toe. PT-OP-K Range of Motion Start: 12/23/23 08:12 Freq: Status: Active Protocol: Document 12/23/23 14:30 [facility] (Rec: 12/24/23 09:39 [facility] [id number]) Ankle and Foot Goniometric Range of Motion Ankle and Foot Right Ankle/Foot ROM WFL Yes Testing Position Supine Dorsiflexion with Knee Extended 10 Plantarflexion 15 Left Ankle/Foot ROM WFL No Testing Position Supine Dorsiflexion with Knee Extended 5 Plantarflexion 10 Ankle and Foot ROM Limitations ROM Limitations Soft Tissue Tightness,Muscle Weakness PT-OP-M Strength Start: 12/24/23 09:16 Freq: Status: Active Protocol: Document 12/23/23 14:30 [facility] (Rec: 12/24/23 09:39 [facility] [id number]) Ankle/Foot Strength Ankle and Foot Manual Muscle Testing Right Dorsiflexion (L4) 5 Normal Plantarflexion (S1) 5 Normal Left Dorsiflexion (L4) 3+ Fair+ Plantarflexion (S1) 3+ Fair+ PT-OP-N Lymphedema Start: 12/24/23 09:35 Freq: Status: Active Protocol: Document 01/06/24 08:15 [facility] (Rec: 01/07/24 08:42 [facility] [id number]) Lymphedema Measurements Lower Extremity Circumference Measurements Left MT Heads 20.5 cm PT-OP-Q Treatments Start: 12/23/23 08:12 Freq: Status: Active Protocol: Document 01/20/24 08:13 [facility] (Rec: 01/20/24 09:00 [facility] [id number]) Therapeutic Exercises Supine Exercises ankle eversion with theraband Side bilateral Resistance TB #2 aqua green Reps/Minutes 3 x 10 reps Comments tied loop around for B ankle eversion long sitting ankle plantar flexion /DF with resistance band Supine Exercise Name toe and ankle PF/eccentric extension Resistance TB #2 aqua green (hammock over f/b foot over toes) Reps/Minutes x 20 reps Comments cued slow eccentric, toe long flexion 1st & 2nd noted Sitting Exercises toe abduction Sitting Exercise Name reviewed toe abduction- demos with ankle EV Side left Reps/Minutes 2x10, pause 1-2 sec Comments cued to wear spacer for exercises Standing Exercises STS, taps Standing Exercise Name 1. STS 2. eccentric taps to table Equipment Used to 18 table Reps/Minutes x5 STS, taps x3 Comments cued hip hinge, knee behind forefoot standing dynamic calf stretch Standing Exercise Name reviewed pt HOs Side left Resistance L ft front and back positions Reps/Minutes pt to work on 5-10 reps Comments standing calf stretch with knee flexion/extension for dynamic movement Manual Therapy Treatment Soft Tissue Mobilization plantar fascia attachments to the MTP's Mobilization Type Myofascial Release Comments MFR of the plantar fascia especially at the base of the Metatarsal heads. L foot Body Location 1&2, 3-5th MTP scar mobility Mobilization Type Cross-Friction,Myofascial Release,Rolling,Sustained Pressure,Other Intensity/Depth Superficial Body Position Inclined Long Sitting Comments Manual and ed scar mobility no ointment for better sand conditioner, then use VIt E as has been. PROM L 1st toe abd midline, stretch. PT-OP-R Modalities Start: 01/07/24 08:40 Freq: Status: Active Protocol: Document 01/08/24 10:35 SP (Rec: 01/08/24 11:21 SP [id number]) Hot Pack/Cold Pack Treatment CP Location L 1-3>4-5 PIP Patient Position Hooklying Comments 10 min A & P PT-OP-T Assessment and Plan Start: 12/23/23 08:12 Freq: Status: Active Protocol: Document 01/20/24 08:13 [facility] (Rec: 01/20/24 09:00 [facility] [id number]) Physical Therapy Assessment Assessment Summary Assessment I encouraged Serenity to bring in her spacer and to wear it for her exercises to help decrease the valgus position of her great toe. She is doing better with calf flexibility and is feeling her exercises are helping her Physical Therapy Plan Frequency and Duration Frequency of Treatment 2x/Week Duration of treatment (weeks) 8 Plan of Care Start Date 01/13/24 Plan of Care End Date 03/09/24 Next Visit Focus/Plan Next Note Type Treatment Note Next Visit Plan Continue working towards standing balance and gait, continue manual work to help with ROM and decreased swelling. Encourage continued use of the ice for swelling
--- NOTE | 2024-01-22 09:55 | PT.OTN ---
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 At the same time she had a arthrodesis of the left metatarsophalangeal joint and percutaneous tenotomy of the left second and fourth toes. At this time Serenity is not walking as well as she would like to, she rates her discomfort as a 2/10, bending her toes is the hardest and it still is swollen. She was using a cane prior to her surgery. She reports most of her swelling feels like its on the bottom of her foot at the bottom of the great toe. She has tried using vitamin E on her scars PT-OP-C Subjective Start: 12/23/23 08:12 Freq: Status: Active Protocol: Document 01/22/24 09:16 SP (Rec: 01/22/24 09:57 SP [id number]) OP-PT Subjective Patient Comments Patient Comments Pt reports ex doing well. Wearing spacer today and all day with good skin check all is fine. Has ? about compression sock. She stated swelling in forefoot much better. PT-OP-J Posture/Palpation/Skin Start: 12/23/23 08:12 Freq: Status: Active Protocol: Document 12/23/23 14:30 AM[facility] (Rec: 12/24/23 09:24 AMH [id number]) Palpation Assessment Location left web space between first and third toes Palpation Findings Edema,Soft Tissue Tightness, Tenderness Palpation Details scar tissue present from amputation of the second toe on the left side in the web space dorsal aspect of great toe Palpation Findings Edema,Soft Tissue Tightness Palpation Details scar tissue restrictions on the left great toe from the arthrodesis of the left metararsophalangeal going plantar aspect of the great toe left Palpation Findings Edema,Soft Tissue Tightness, Tenderness Palpation Details swelling and tenderness on the plantar aspect of the base of the great toe and where amputation was done for the second toe. PT-OP-K Range of Motion Start: 12/23/23 08:12 Freq: Status: Active Protocol: Document 12/23/23 14:30 [facility] (Rec: 12/24/23 09:39 AM[facility] [id number]) Ankle and Foot Goniometric Range of Motion Ankle and Foot Right Ankle/Foot ROM WFL Yes Testing Position Supine Dorsiflexion with Knee Extended 10 Plantarflexion 15 Left Ankle/Foot ROM WFL No Testing Position Supine Dorsiflexion with Knee Extended 5 Plantarflexion 10 Ankle and Foot ROM Limitations ROM Limitations Soft Tissue Tightness,Muscle Weakness PT-OP-M Strength Start: 12/24/23 09:16 Freq: Status: Active Protocol: Document 12/23/23 14:30 AMH (Rec: 12/24/23 09:39 AMH [id number]) Ankle/Foot Strength Ankle and Foot Manual Muscle Testing Right Dorsiflexion (L4) 5 Normal Plantarflexion (S1) 5 Normal Left Dorsiflexion (L4) 3+ Fair+ Plantarflexion (S1) 3+ Fair+ PT-OP-N Lymphedema Start: 12/24/23 09:35 Freq: Status: Active Protocol: Document 01/06/24 08:15 AM[facility] (Rec: 01/07/24 08:42 COUNTS INCLUDE 234 BEDS AT THE [facility] [id number]) Lymphedema Measurements Lower Extremity Circumference Measurements Left MT Heads 20.5 cm PT-OP-Q Treatments Start: 12/23/23 08:12 Freq: Status: Active Protocol: Document 01/22/24 09:16 SP (Rec: 01/22/24 09:57 SP [id number]) Therapeutic Exercises Supine Exercises long sitting ankle circles with resistance Supine Exercise Name ABCs Resistance TB #1 Equipment Used cued slow Reps/Minutes x20 reps Comments reports good ankle tiring effort vs just circles long sitting ankle plantar flexion /DF with resistance band Supine Exercise Name toe and ankle PF/eccentric extension Resistance TB #2 aqua green (hammock over f/b foot over toes) Reps/Minutes x 20 reps Comments cued slow eccentric, toe long flexion 1st & 2nd noted Sitting Exercises toe abduction Sitting Exercise Name reviewed toe abduction- demos with ankle EV Side left Reps/Minutes x10, pause 7 sec Comments cued to wear spacer for exercises arch lift Sitting Exercise Name stand pos- review HEP Equipment Used contact counter, blue foam Reps/Minutes 3 SH x5 reps Comments only heel lift comfort range due to discomfort PIP L1st Standing Exercises HR/ TR Standing Exercise Name trialed in PT Equipment Used counter, foam Reps/Minutes 2x10 Comments good response, tiring, ankle stab trng Gait Training Gait Activity dynamic gait Description HTs, pivot Comments cues for shorten LLE stride and wider LUCINDA, elongated posturing improved midline and closer to even cleve, tends to scissor LLE stride causing to L lateral lean when walking. Manual Therapy Treatment Soft Tissue Mobilization plantar fascia attachments to the MTP's Mobilization Type Myofascial Release Comments MFR of the plantar fascia especially at the base of the Metatarsal heads. L foot Body Location 1&2, 3-5th MTP scar mobility Mobilization Type Cross-Friction,Myofascial Release,Rolling,Sustained Pressure,Other Intensity/Depth Superficial Body Position Inclined Long Sitting Comments Manual and ed scar mobility no ointment for better electronic court recorder, then use VIt E as has been. PROM L 1st toe abd midline, stretch. Neuro Re-Education Treatment Balance Activities balance Surface uneven foam Comments 1. stagger 2. semitandem 3. tandem L ft fwd 4 sec, R ft fwd 4, 10 sec Self-Care/Home Management Treatment Education Other Education compression sock (open toe) end up to DIPs to allow compression around MCPs for support circulation PT-OP-R Modalities Start: 01/07/24 08:40 Freq: Status: Active Protocol: Document 01/08/24 10:35 SP (Rec: 01/08/24 11:21 SP [id number]) Hot Pack/Cold Pack Treatment CP Location L 1-3>4-5 PIP Patient Position Hooklying Comments 10 min A & P PT-OP-T Assessment and Plan Start: 12/23/23 08:12 Freq: Status: Active Protocol: Document 01/22/24 09:16 SP (Rec: 01/22/24 09:57 SP [id number]) Physical Therapy Assessment Goals 4 Impairment Decreased strength left ankle DF/PF as compared to the right side Short Term Goal (STG) Serenity is educated in a home program for ankle strengthening good progress STG Duration 4 weeks Clay Molder Goal (LTG) Serenity presents with improved strength for DF and PF of the left ankle good progress LTG Duration 8 weeks 3 Impairment Serenity is limited to walking 1-2 blocks with SPC at this time Alf Goal (LTG) Serenity is no longer using a single point cane and feels she has improved her walking distance to 15-20 min excellent progress 01/16/24: progressingwalking about 15 min walking around [place] use of grocery cart, 6MWT 1005 ft no AD. LTG Duration 8 weeks progressing 01/16/24 2 Impairment scar tissue restrictions on both the dorsal and plantar aspects of the great toe on the left causing reports of discomfort rated 2/10 with standing and walking Short Term Goal (STG) Serenity is able to tolerate gentle scar tissue mobilization to assist with improved mobility of the tissue around her great toe on the left excellent progress STG Duration 4 weeks activity tolerance Impairment lower extremity functional scale (LEFS) 34 Alf Goal (LTG) Serenity reports a overall improvement with functional movements and has improved her score by 8-10 points LTG Duration 12 weeks Assessment Summary Assessment OCE[employer] EXPORT ACCOUNT MANAGER skin check with spacer between 1& 3rd MTPs LLE normal , no adverse irritation seen. Continued ed provide self skin checks and use spacer during daily activity for normalizing toe positioning for support standing. Small gains in scar mobility, still decreased distal end L 1st MTP, pt challenged reaching herself with decreased hip mobility. Didn't measure L forefoot circumference for swelling reduction progress but pt reports sees improvement. OCE[employer] EXPORT ACCOUNT MANAGER noted improvement form passed tx's. Pt good progression response to increased resistance to ankle and toe strengthening mobility. Introduced uneven surface balance this tx, decreased time tandem vs firm ugo. Physical Therapy Plan Frequency and Duration Frequency of Treatment 2x/Week Duration of treatment (weeks) 8 Plan of Care Start Date 01/13/24 Plan of Care End Date 03/09/24 Therapeutic Interventions Therapeutic Interventions Home Exercise Program,Manual Therapy,Neuromuscular Re- education,Patient/Caregiver Education,Self-Care/Home Management,Soft Tissue Mobilization,Therapeutic Exercises Next Visit Focus/Plan Next Note Type Treatment Note Next Visit Plan Continue working towards standing balance and gait, continue manual work to help with ROM and decreased swelling. Encourage continued use of the ice for swelling
--- NOTE | 2024-01-26 09:45 | PT.OTN ---
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 At the same time she had a arthrodesis of the left metatarsophalangeal joint and percutaneous tenotomy of the left second and fourth toes. At this time Serenity is not walking as well as she would like to, she rates her discomfort as a 2/10, bending her toes is the hardest and it still is swollen. She was using a cane prior to her surgery. She reports most of her swelling feels like its on the bottom of her foot at the bottom of the great toe. She has tried using vitamin E on her scars PT-OP-C Subjective Start: 12/23/23 08:12 Freq: Status: Active Protocol: Document 01/26/24 09:07 SP (Rec: 01/26/24 09:48 SP [id number]) OP-PT Subjective Patient Comments Patient Comments Pt reports noticing 1st MTP redness today, PIP of L 1st MTP swelling going down. She states does have an arch pad in L shoe under sole for added cushion to forefoot. SHe states is doing fine with molded toe spacer replace 2nd toe and to support maintaining width for balance and 1&3rd toe alignment. She purchased a stretchy toe spacer between 1 -2 toes on R foot for prevention due to noticed getting closer together, feels fine good skin checks self. PT-OP-J Posture/Palpation/Skin Start: 12/23/23 08:12 Freq: Status: Active Protocol: Document 12/23/23 14:30 [facility] (Rec: 12/24/23 09:24 [facility] [id number]) Palpation Assessment Location left web space between first and third toes Palpation Findings Edema,Soft Tissue Tightness, Tenderness Palpation Details scar tissue present from amputation of the second toe on the left side in the web space dorsal aspect of great toe Palpation Findings Edema,Soft Tissue Tightness Palpation Details scar tissue restrictions on the left great toe from the arthrodesis of the left metararsophalangeal going plantar aspect of the great toe left Palpation Findings Edema,Soft Tissue Tightness, Tenderness Palpation Details swelling and tenderness on the plantar aspect of the base of the great toe and where amputation was done for the second toe. PT-OP-K Range of Motion Start: 12/23/23 08:12 Freq: Status: Active Protocol: Document 12/23/23 14:30 [facility] (Rec: 12/24/23 09:39 [facility] [id number]) Ankle and Foot Goniometric Range of Motion Ankle and Foot Right Ankle/Foot ROM WFL Yes Testing Position Supine Dorsiflexion with Knee Extended 10 Plantarflexion 15 Left Ankle/Foot ROM WFL No Testing Position Supine Dorsiflexion with Knee Extended 5 Plantarflexion 10 Ankle and Foot ROM Limitations ROM Limitations Soft Tissue Tightness,Muscle Weakness PT-OP-M Strength Start: 12/24/23 09:16 Freq: Status: Active Protocol: Document 12/23/23 14:30 [facility] (Rec: 12/24/23 09:39 [facility] [id number]) Ankle/Foot Strength Ankle and Foot Manual Muscle Testing Right Dorsiflexion (L4) 5 Normal Plantarflexion (S1) 5 Normal Left Dorsiflexion (L4) 3+ Fair+ Plantarflexion (S1) 3+ Fair+ PT-OP-N Lymphedema Start: 12/24/23 09:35 Freq: Status: Active Protocol: Document 01/06/24 08:15 AMH (Rec: 01/07/24 08:42 [facility] [id number]) Lymphedema Measurements Lower Extremity Circumference Measurements Left MT Heads 20.5 cm PT-OP-Q Treatments Start: 12/23/23 08:12 Freq: Status: Active Protocol: Document 01/26/24 09:07 SP (Rec: 01/26/24 09:48 SP [id number]) Therapeutic Exercises Standing Exercises HR/ TR Standing Exercise Name HEP review Equipment Used foam Reps/Minutes 2x10 Comments good response, tiring, ankle stab trng standing dynamic calf stretch Standing Exercise Name reviewed pt HOs Side left Resistance L ft front and back positions Equipment Used foam (towel over), raised table Reps/Minutes pt to work on 5-10 reps Comments standing calf stretch with knee flexion/extension for dynamic movement Other Exercises heel & toe walking Other Exercise Name trialed in PT (shoes donned) Reps/Minutes 10 ft x2 laps each Manual Therapy Treatment Soft Tissue Mobilization plantar fascia attachments to the MTP's Mobilization Type Myofascial Release Comments MFR of the plantar fascia especially at the base of the Metatarsal heads. 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 PROM L 1st toe abd midline, stretch. Joint Mobilizations L MTPs Joint 1st MTP: DIP, IP, PIP Direction flex/ext/rot Grade II Body Position Long sitting PT-OP-R Modalities Start: 01/07/24 08:40 Freq: Status: Active Protocol: Document 01/08/24 10:35 SP (Rec: 01/08/24 11:21 SP [id number]) Hot Pack/Cold Pack Treatment CP Location L 1-3>4-5 PIP Patient Position Hooklying Comments 10 min A & P PT-OP-T Assessment and Plan Start: 12/23/23 08:12 Freq: Status: Active Protocol: Document 01/26/24 09:07 SP (Rec: 01/26/24 09:48 SP [id number]) Physical Therapy Assessment Goals 4 Impairment Decreased strength left ankle DF/PF as compared to the right side Short Term Goal (STG) Serenity is educated in a home program for ankle strengthening good progress STG Duration 4 weeks Domain Architect Goal (LTG) Serenity presents with improved strength for DF and PF of the left ankle good progress LTG Duration 8 weeks 3 Impairment Serenity is limited to walking 1-2 blocks with SPC at this time Skilled Nursing Goal (LTG) Serenity is no longer using a single point cane and feels she has improved her walking distance to 15-20 min excellent progress 01/16/24: progressingwalking about 15 min walking around [place] use of grocery cart, 6MWT 1005 ft no AD. LTG Duration 8 weeks progressing 01/16/24 2 Impairment scar tissue restrictions on both the dorsal and plantar aspects of the great toe on the left causing reports of discomfort rated 2/10 with standing and walking Short Term Goal (STG) Sereinty is able to tolerate gentle scar tissue mobilization to assist with improved mobility of the tissue around her great toe on the left excellent progress STG Duration 4 weeks activity tolerance Impairment lower extremity functional scale (LEFS) 34 Domain Architect Goal (LTG) Serenity reports a overall improvement with functional movements and has improved her score by 8-10 points LTG Duration 12 weeks Assessment Summary Assessment Scar mobility slowly improving on 1st MTP and pt states peforming self as well that can reach, 2nd scar looks good , no concerns. Improved circulation and swelling reduction post manual. Ther ex in focused on standing with foam under Foot for cushion L 1st MTP. Trialed progression heel and toe walking. Pt reported tiring maintaining DF with heel walking less ROM as 10 ft distance progressed. 2nd lap toe walking caused irritation/discomfort on plantar surface L 1st PIP so stopped. Noticed decreases stride and better hip abd and trunk LUCINDA over COG heel walking improvement PRN rail support. Pt would benefit from continued standing progression. Physical Therapy Plan Frequency and Duration Frequency of Treatment 2x/Week Duration of treatment (weeks) 8 Plan of Care Start Date 01/13/24 Plan of Care End Date 03/09/24 Therapeutic Interventions Therapeutic Interventions Home Exercise Program,Manual Therapy,Neuromuscular Re- education,Patient/Caregiver Education,Self-Care/Home Management,Soft Tissue Mobilization,Therapeutic Exercises Next Visit Focus/Plan Next Note Type Treatment Note Next Visit Plan Check heel> toe walking , measure L forefoot swelling comparison to PT. Fax PN to Dr Reed, pt to get fax # and sign release note from vis front facer. POC: Continue working towards standing balance and gait, continue manual work to help with ROM and decreased swelling. Encourage continued use of the ice for swelling
--- NOTE | 2024-01-28 09:00 | PT.OTN ---
Current Diagnoses Acquired deformities of toe(s), unspecified, left foot (01/28/24) Other instability, left ankle (01/28/24) Stiffness of left ankle, not elsewhere classified (01/28/24) Physical Therapy Treatment Note PT-OP-A Visit Information Start: 12/23/23 08:12 Freq: Status: Active Protocol: Document 01/28/24 08:16 SP (Rec: 01/28/24 09:03 SP [id number]) Out-Patient Physical Therapy Visit Information Visit Information Visit Type Treatment Note Visit Start Time 08:16 Visit Stop Time 09:00 Visit Number 12 Number of EDGER HAND Visits 3 Evaluation Information Evaluation Date 12/23/23 PT-OP-B Current Condition Start: 12/23/23 08:12 Freq: Status: Active Protocol: Document 12/23/23 14:30 [facility] (Rec: 12/23/23 15:12 AMH [id number]) Current Condition History of Current Condition Onset Date 11/04/23 Current Complaints pain 2/10 left foot, decreased tolerance for walking and balance History of Current Condition November 04 she underwent a 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 At the same time she had a arthrodesis of the left metatarsophalangeal joint and percutaneous tenotomy of the left second and fourth toes. At this time Serenity is not walking as well as she would like to, she rates her discomfort as a 2/10, bending her toes is the hardest and it still is swollen. She was using a cane prior to her surgery. She reports most of her swelling feels like its on the bottom of her foot at the bottom of the great toe. She has tried using vitamin E on her scars PT-OP-C Subjective Start: 12/23/23 08:12 Freq: Status: Active Protocol: Document 01/28/24 08:16 SP (Rec: 01/28/24 09:03 SP [id number]) OP-PT Subjective Patient Comments Patient Comments Pt reported she realized that her L foot catches the floor and with the walking in the hallway during PT when lifts up her forefoot she is now heel striking and is not as off balance. PT-OP-J Posture/Palpation/Skin Start: 12/23/23 08:12 Freq: Status: Active Protocol: Document 12/23/23 14:30 AMH (Rec: 12/24/23 09:24 AMH [id number]) Palpation Assessment Location left web space between first and third toes Palpation Findings Edema,Soft Tissue Tightness, Tenderness Palpation Details scar tissue present from amputation of the second toe on the left side in the web space dorsal aspect of great toe Palpation Findings Edema,Soft Tissue Tightness Palpation Details scar tissue restrictions on the left great toe from the arthrodesis of the left metararsophalangeal going plantar aspect of the great toe left Palpation Findings Edema,Soft Tissue Tightness, Tenderness Palpation Details swelling and tenderness on the plantar aspect of the base of the great toe and where amputation was done for the second toe. PT-OP-K Range of Motion Start: 12/23/23 08:12 Freq: Status: Active Protocol: Document 12/23/23 14:30 AMH (Rec: 12/24/23 09:39 [facility] [id number]) Ankle and Foot Goniometric Range of Motion Ankle and Foot Right Ankle/Foot ROM WFL Yes Testing Position Supine Dorsiflexion with Knee Extended 10 Plantarflexion 15 Left Ankle/Foot ROM WFL No Testing Position Supine Dorsiflexion with Knee Extended 5 Plantarflexion 10 Ankle and Foot ROM Limitations ROM Limitations Soft Tissue Tightness,Muscle Weakness PT-OP-M Strength Start: 12/24/23 09:16 Freq: Status: Active Protocol: Document 12/23/23 14:30 AMH (Rec: 12/24/23 09:39 [facility] [id number]) Ankle/Foot Strength Ankle and Foot Manual Muscle Testing Right Dorsiflexion (L4) 5 Normal Plantarflexion (S1) 5 Normal Left Dorsiflexion (L4) 3+ Fair+ Plantarflexion (S1) 3+ Fair+ PT-OP-N Lymphedema Start: 12/24/23 09:35 Freq: Status: Active Protocol: Document 01/06/24 08:15 AMH (Rec: 01/07/24 08:42 AMH [id number]) Lymphedema Measurements Lower Extremity Circumference Measurements Left MT Heads 20.5 cm PT-OP-Q Treatments Start: 12/23/23 08:12 Freq: Status: Active Protocol: Document 01/28/24 08:16 SP (Rec: 01/28/24 09:03 SP [id number]) Therapeutic Exercises Sitting Exercises 4 way ankle Sitting Exercise Name reviewed HEP seated: PF ( hammock), DF, EV, IV Side left Reps/Minutes x20 Comments occasional cues for positioning Standing Exercises HR/ TR Standing Exercise Name 1. DL 2. D up, L down Equipment Used rail support Reps/Minutes 1. 2x10 2. x10 Comments good response, tiring, ankle stab trng Other Exercises heel & toe walking Other Exercise Name added to HEP (shoes donned) Equipment Used //bars, PRN contact Reps/Minutes 10 ft x3 laps each Comments improved slight L heel raise today, Manual Therapy Treatment Soft Tissue Mobilization plantar fascia attachments to the MTP's Mobilization Type Myofascial Release Comments MFR of the plantar fascia especially at the base of the Metatarsal heads. 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 PROM L 1st toe abd midline, stretch. PT-OP-R Modalities Start: 01/07/24 08:40 Freq: Status: Active Protocol: Document 01/08/24 10:35 SP (Rec: 01/08/24 11:21 SP [id number]) Hot Pack/Cold Pack Treatment CP Location L 1-3>4-5 PIP Patient Position Hooklying Comments 10 min A & P PT-OP-T Assessment and Plan Start: 12/23/23 08:12 Freq: Status: Active Protocol: Document 01/28/24 08:16 SP (Rec: 01/28/24 09:03 SP [id number]) Physical Therapy Assessment Goals 4 Impairment Decreased strength left ankle DF/PF as compared to the right side Short Term Goal (STG) Serenity is educated in a home program for ankle strengthening good progress STG Duration 4 weeks Cutter Out Goal (LTG) Serenity presents with improved strength for DF and PF of the left ankle good progress LTG Duration 8 weeks 3 Impairment Serenity is limited to walking 1-2 blocks with SPC at this time Mcc Goal (LTG) Serenity is no longer using a single point cane and feels she has improved her walking distance to 15-20 min excellent progress 01/16/24: progressingwalking about 15 min walking around [place] use of grocery cart, 6MWT 1005 ft no AD. LTG Duration 8 weeks progressing 01/16/24 2 Impairment scar tissue restrictions on both the dorsal and plantar aspects of the great toe on the left causing reports of discomfort rated 2/10 with standing and walking Short Term Goal (STG) Serenity is able to tolerate gentle scar tissue mobilization to assist with improved mobility of the tissue around her great toe on the left excellent progress STG Duration 4 weeks activity tolerance Impairment lower extremity functional scale (LEFS) 34 Cutter Out Goal (LTG) Serenity reports a overall improvement with functional movements and has improved her score by 8-10 points LTG Duration 12 weeks Assessment Summary Assessment Pt improving in scar mobility 1st and 2nd MTP. Ts focus on ankle mobility and L calf strengthening. Added eccentric calf raises LLE with support, heel and toe walking, noted little increased in L calf raise/heel lift end tx during toe walking and good awareness of decrease stride on LLE to allow progress equal cleve and balance. Physical Therapy Plan Frequency and Duration Frequency of Treatment 2x/Week Duration of treatment (weeks) 8 Plan of Care Start Date 01/13/24 Plan of Care End Date 03/09/24 Therapeutic Interventions Therapeutic Interventions Home Exercise Program,Manual Therapy,Neuromuscular Re- education,Patient/Caregiver Education,Self-Care/Home Management,Soft Tissue Mobilization,Therapeutic Exercises Next Visit Focus/Plan Next Note Type Treatment Note Next Visit Plan Next tx: eccentric heel lift L , add hurdles for heel strike. Leg press. Check heel> toe walking ,measure L forefoot swelling comparison to PT. POC: Continue working towards standing balance and gait, continue manual work to help with ROM and decreased swelling. Encourage continued use of the ice for swelling
--- NOTE | 2024-02-04 08:15 | PT.OTN ---
Current Diagnoses Acquired deformities of toe(s), unspecified, left foot (02/04/24) Other instability, left ankle (02/04/24) Stiffness of left ankle, not elsewhere classified (02/04/24) Physical Therapy Treatment Note PT-OP-A Visit Information Start: 12/23/23 08:12 Freq: Status: Active Protocol: Document 02/04/24 07:32 SP (Rec: 02/04/24 08:17 SP [id number]) Out-Patient Physical Therapy Visit Information Visit Information Visit Type Treatment Note Visit Start Time 07:32 Visit Stop Time 08:15 Visit Number 13 Number of BRAKE SPECIALIST Visits 4 Evaluation Information Evaluation Date 12/23/23 PT-OP-B Current Condition Start: 12/23/23 08:12 Freq: Status: Active Protocol: Document 12/23/23 14:30 AMH (Rec: 12/23/23 15:12 AMH [id number]) Current Condition History of Current Condition Onset Date 11/04/23 Current Complaints pain 2/10 left foot, decreased tolerance for walking and balance History of Current Condition November 04 she underwent a 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 At the same time she had a arthrodesis of the left metatarsophalangeal joint and percutaneous tenotomy of the left second and fourth toes. At this time Serenity is not walking as well as she would like to, she rates her discomfort as a 2/10, bending her toes is the hardest and it still is swollen. She was using a cane prior to her surgery. She reports most of her swelling feels like its on the bottom of her foot at the bottom of the great toe. She has tried using vitamin E on her scars PT-OP-C Subjective Start: 12/23/23 08:12 Freq: Status: Active Protocol: Document 02/04/24 07:32 SP (Rec: 02/04/24 08:17 SP [id number]) OP-PT Subjective Patient Comments Patient Comments Pt reports the calf stretch standing lunge with knee straight, she thinks hyperextends her knee and hurt distal heel so much that had to use her cane yesterday. Wants to review it and be sure is still needed or how modify . Her base of L MTPs pinkish red swollen today. Circumference 23.5cm or 8 3/4 . She reports heel walking is ok and finds good strengthening for ankles but toe walking thinks puts to much strain in plantar foot and anterior ankle, not pain on forefoot WB though. PT-OP-J Posture/Palpation/Skin Start: 12/23/23 08:12 Freq: Status: Active Protocol: Document 12/23/23 14:30 AMH (Rec: 12/24/23 09:24 [facility] [id number]) Palpation Assessment Location left web space between first and third toes Palpation Findings Edema,Soft Tissue Tightness, Tenderness Palpation Details scar tissue present from amputation of the second toe on the left side in the web space dorsal aspect of great toe Palpation Findings Edema,Soft Tissue Tightness Palpation Details scar tissue restrictions on the left great toe from the arthrodesis of the left metararsophalangeal going plantar aspect of the great toe left Palpation Findings Edema,Soft Tissue Tightness, Tenderness Palpation Details swelling and tenderness on the plantar aspect of the base of the great toe and where amputation was done for the second toe. PT-OP-K Range of Motion Start: 12/23/23 08:12 Freq: Status: Active Protocol: Document 12/23/23 14:30 AMH (Rec: 12/24/23 09:39 [facility] [id number]) Ankle and Foot Goniometric Range of Motion Ankle and Foot Right Ankle/Foot ROM WFL Yes Testing Position Supine Dorsiflexion with Knee Extended 10 Plantarflexion 15 Left Ankle/Foot ROM WFL No Testing Position Supine Dorsiflexion with Knee Extended 5 Plantarflexion 10 Ankle and Foot ROM Limitations ROM Limitations Soft Tissue Tightness,Muscle Weakness PT-OP-M Strength Start: 12/24/23 09:16 Freq: Status: Active Protocol: Document 12/23/23 14:30 AMH (Rec: 12/24/23 09:39 [facility] [id number]) Ankle/Foot Strength Ankle and Foot Manual Muscle Testing Right Dorsiflexion (L4) 5 Normal Plantarflexion (S1) 5 Normal Left Dorsiflexion (L4) 3+ Fair+ Plantarflexion (S1) 3+ Fair+ PT-OP-N Lymphedema Start: 12/24/23 09:35 Freq: Status: Active Protocol: Document 01/06/24 08:15 AMH (Rec: 01/07/24 08:42 [facility] [id number]) Lymphedema Measurements Lower Extremity Circumference Measurements Left MT Heads 20.5 cm PT-OP-Q Treatments Start: 12/23/23 08:12 Freq: Status: Active Protocol: Document 02/04/24 07:32 SP (Rec: 02/04/24 08:17 SP [id number]) Therapeutic Exercises Supine Exercises ankle eversion with theraband Supine Exercise Name sitting Side bilateral Resistance TB #2 aqua green Reps/Minutes 3 x 10 reps Comments tied loop around for L and under R ankle long sitting ankle plantar flexion /DF with resistance band Supine Exercise Name toe and ankle PF/eccentric extension Resistance TB #2 aqua green Equipment Used seated Reps/Minutes x 20 reps Comments cued slow eccentric, toe long flexion 1st & 2nd noted Sitting Exercises 4 way ankle Sitting Exercise Name reviewed HEP seated: PF, DF, EV Side left Reps/Minutes x20 Comments occasional cues for positioning Standing Exercises standing dynamic calf stretch Standing Exercise Name Trialed off step: 1. gastroc 2 . soleus 3. Dynamic calf raises Equipment Used rail support, bottom step Manual Therapy Treatment Soft Tissue Mobilization plantar fascia attachments to the MTP's Mobilization Type Myofascial Release Comments MFR of the plantar fascia especially at the base of the Metatarsal heads. 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 PROM L 1st toe abd midline, stretch. Joint Mobilizations L MTPs Joint 1st MTP: DIP, IP, PIP Direction flex/ext/rot Grade II Body Position Long sitting PT-OP-R Modalities Start: 01/07/24 08:40 Freq: Status: Active Protocol: Document 01/08/24 10:35 SP (Rec: 01/08/24 11:21 SP [id number]) Hot Pack/Cold Pack Treatment CP Location L 1-3>4-5 PIP Patient Position Hooklying Comments 10 min A & P PT-OP-T Assessment and Plan Start: 12/23/23 08:12 Freq: Status: Active Protocol: Document 02/04/24 07:32 SP (Rec: 02/04/24 08:17 SP [id number]) Physical Therapy Assessment Goals 4 Impairment Decreased strength left ankle DF/PF as compared to the right side Short Term Goal (STG) Serenity is educated in a home program for ankle strengthening good progress STG Duration 4 weeks Cost Estimating Clerk Goal (LTG) Serenity presents with improved strength for DF and PF of the left ankle good progress LTG Duration 8 weeks 3 Impairment Serenity is limited to walking 1-2 blocks with SPC at this time Retirement Goal (LTG) Serenity is no longer using a single point cane and feels she has improved her walking distance to 15-20 min excellent progress 01/16/24: progressingwalking about 15 min walking around [place] use of grocery cart, 6MWT 1005 ft no AD. LTG Duration 8 weeks progressing 01/16/24 2 Impairment scar tissue restrictions on both the dorsal and plantar aspects of the great toe on the left causing reports of discomfort rated 2/10 with standing and walking Short Term Goal (STG) Serenity is able to tolerate gentle scar tissue mobilization to assist with improved mobility of the tissue around her great toe on the left excellent progress STG Duration 4 weeks activity tolerance Impairment lower extremity functional scale (LEFS) 34 Retirement Goal (LTG) Serenity reports a overall improvement with functional movements and has improved her score by 8-10 points LTG Duration 12 weeks Assessment Summary Assessment Tx focused on L 1st MTP scar, some improvement mobility. Continues seem weak in L ankle with calf raise activities. Modified calf stretch and dynamic calf off bottom step today with no pain in plantar surface foot and heel this tx. Spacer between 1-3 toes helping with alignment, less adduction. Pt would benefit from continued more SLS and L ankle strengthening in standing activities to improved gait stability. Physical Therapy Plan Frequency and Duration Frequency of Treatment 2x/Week Duration of treatment (weeks) 8 Plan of Care Start Date 01/13/24 Plan of Care End Date 03/09/24 Therapeutic Interventions Therapeutic Interventions Home Exercise Program,Manual Therapy,Neuromuscular Re- education,Patient/Caregiver Education,Self-Care/Home Management,Soft Tissue Mobilization,Therapeutic Exercises Next Visit Focus/Plan Next Note Type Treatment Note Next Visit Plan Ask if still icing. Next tx: eccentric heel lift L, add hurdles for heel strike. Leg press. Check heel> toe walking ,measure L forefoot swelling comparison to PT, see subjective 02/03 comparison. POC: Continue working towards standing balance and gait, continue manual work to help with ROM and decreased swelling. Encourage continued use of the ice for swelling
--- NOTE | 2024-02-05 16:50 | PT.OTN ---
Current Diagnoses Acquired deformities of toe(s), unspecified, left foot (02/05/24) Other instability, left ankle (02/05/24) Stiffness of left ankle, not elsewhere classified (02/05/24) Physical Therapy Treatment Note PT-OP-A Visit Information Start: 12/23/23 08:12 Freq: Status: Active Protocol: Document 02/05/24 11:15 AMH (Rec: 02/10/24 16:46 [facility] [id number]) Out-Patient Physical Therapy Visit Information Visit Information Visit Type Treatment Note Visit Start Time 11:15 Visit Stop Time 12:00 Visit Number 14 Number of SUPERVISOR REAL ESTATE OFFICE Visits 0 PT-OP-B Current Condition Start: 12/23/23 08:12 Freq: Status: Active Protocol: Document 12/23/23 14:30 AMH (Rec: 12/23/23 15:12 [facility] [id number]) Current Condition History of Current Condition Onset Date 11/04/23 Current Complaints pain 2/10 left foot, decreased tolerance for walking and balance History of Current Condition November 04 she underwent a 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 At the same time she had a arthrodesis of the left metatarsophalangeal joint and percutaneous tenotomy of the left second and fourth toes. At this time Serenity is not walking as well as she would like to, she rates her discomfort as a 2/10, bending her toes is the hardest and it still is swollen. She was using a cane prior to her surgery. She reports most of her swelling feels like its on the bottom of her foot at the bottom of the great toe. She has tried using vitamin E on her scars PT-OP-C Subjective Start: 12/23/23 08:12 Freq: Status: Active Protocol: Document 02/05/24 11:15 AMH (Rec: 02/05/24 12:12 [facility] [id number]) OP-PT Subjective Patient Comments Patient Comments pt notes after she does her toe walks and heel wals it flares up, on the lateral aspect of her foot it gets tender and tired. PT-OP-J Posture/Palpation/Skin Start: 12/23/23 08:12 Freq: Status: Active Protocol: Document 12/23/23 14:30 AMH (Rec: 12/24/23 09:24 [facility] [id number]) Palpation Assessment Location left web space between first and third toes Palpation Findings Edema,Soft Tissue Tightness, Tenderness Palpation Details scar tissue present from amputation of the second toe on the left side in the web space dorsal aspect of great toe Palpation Findings Edema,Soft Tissue Tightness Palpation Details scar tissue restrictions on the left great toe from the arthrodesis of the left metararsophalangeal going plantar aspect of the great toe left Palpation Findings Edema,Soft Tissue Tightness, Tenderness Palpation Details swelling and tenderness on the plantar aspect of the base of the great toe and where amputation was done for the second toe. PT-OP-K Range of Motion Start: 12/23/23 08:12 Freq: Status: Active Protocol: Document 12/23/23 14:30 AMH (Rec: 12/24/23 09:39 [facility] [id number]) Ankle and Foot Goniometric Range of Motion Ankle and Foot Right Ankle/Foot ROM WFL Yes Testing Position Supine Dorsiflexion with Knee Extended 10 Plantarflexion 15 Left Ankle/Foot ROM WFL No Testing Position Supine Dorsiflexion with Knee Extended 5 Plantarflexion 10 Ankle and Foot ROM Limitations ROM Limitations Soft Tissue Tightness,Muscle Weakness PT-OP-M Strength Start: 12/24/23 09:16 Freq: Status: Active Protocol: Document 12/23/23 14:30 AMH (Rec: 12/24/23 09:39 [facility] [id number]) Ankle/Foot Strength Ankle and Foot Manual Muscle Testing Right Dorsiflexion (L4) 5 Normal Plantarflexion (S1) 5 Normal Left Dorsiflexion (L4) 3+ Fair+ Plantarflexion (S1) 3+ Fair+ PT-OP-N Lymphedema Start: 12/24/23 09:35 Freq: Status: Active Protocol: Document 01/06/24 08:15 AMH (Rec: 01/07/24 08:42 [facility] [id number]) Lymphedema Measurements Lower Extremity Circumference Measurements Left MT Heads 20.5 cm PT-OP-Q Treatments Start: 12/23/23 08:12 Freq: Status: Active Protocol: Document 02/05/24 11:15 AMH (Rec: 02/10/24 16:49 [facility] [id number]) Therapeutic Exercises Supine Exercises ankle eversion with theraband Supine Exercise Name sitting Side bilateral Resistance TB #2 aqua green Reps/Minutes 3 x 10 reps Comments tied loop around for L and under R ankle long sitting ankle plantar flexion /DF with resistance band Supine Exercise Name toe and ankle PF/eccentric extension Resistance TB #2 aqua green Equipment Used seated Reps/Minutes x 20 reps Comments cued slow eccentric, toe long flexion 1st & 2nd noted Standing Exercises HR/ TR Standing Exercise Name 1. DL 2. D up, L down Equipment Used rail support Reps/Minutes 1. 2x10 2. x10 Comments good response, tiring, ankle stab trng STS, taps Standing Exercise Name 1. STS 2. eccentric taps to table Equipment Used to 18 table Reps/Minutes x5 STS, taps x3 Comments cued hip hinge, knee behind forefoot standing dynamic calf stretch Standing Exercise Name Trialed off step: 1. gastroc 2 . soleus 3. Dynamic calf raises Equipment Used rail support, bottom step Other Exercises heel & toe walking Comments worked on just toe lifts today as ella was experiencing pain in plantar fas Manual Therapy Treatment Soft Tissue Mobilization plantar fascia attachments to the MTP's Mobilization Type Myofascial Release Comments MFR of the plantar fascia especially at the base of the Metatarsal heads. 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 PROM L 1st toe abd midline, stretch. Joint Mobilizations L MTPs Joint 1st MTP: DIP, IP, PIP Direction flex/ext/rot Grade II Body Position Long sitting PT-OP-R Modalities Start: 01/07/24 08:40 Freq: Status: Active Protocol: Document 01/08/24 10:35 SP (Rec: 01/08/24 11:21 SP [id number]) Hot Pack/Cold Pack Treatment CP Location L 1-3>4-5 PIP Patient Position Hooklying Comments 10 min A & P PT-OP-T Assessment and Plan Start: 12/23/23 08:12 Freq: Status: Active Protocol: Document 02/10/24 16:47 AMH (Rec: 02/10/24 16:48 [facility] [id number]) Physical Therapy Assessment Assessment Summary Assessment Serenity is doing better overall with mobility. She did note lateral plantar fascia pain with her heel walks so I did modify that exercise today to just toe lifts for now. Physical Therapy Plan Frequency and Duration Frequency of Treatment 2x/Week Duration of treatment (weeks) 8 Plan of Care Start Date 01/13/24 Plan of Care End Date 03/09/24 Therapeutic Interventions Therapeutic Interventions Home Exercise Program,Manual Therapy,Neuromuscular Re- education,Patient/Caregiver Education,Self-Care/Home Management,Soft Tissue Mobilization,Therapeutic Exercises Next Visit Focus/Plan Next Note Type Treatment Note Next Visit Plan Ask if still icing. Next tx: eccentric heel lift L, add hurdles for heel strike. Leg press. Check heel> toe walking ,measure L forefoot swelling comparison to PT, see subjective 02/03 comparison. POC: Continue working towards standing balance and gait, continue manual work to help with ROM and decreased swelling. Encourage continued use of the ice for swelling
--- NOTE | 2024-02-17 08:32 | PT-OP ANOTE ---
Pt DNS for today's appt, SCHOOL TRANSPORTATION DIRECTOR called and didnt realize she had an appt today, confirmed 25th appt. SCHOOL TRANSPORTATION DIRECTOR offered Mon appt and pt will call back to schedule.
--- NOTE | 2024-02-19 12:22 | PT.OTN ---
Current Diagnoses Acquired deformities of toe(s), unspecified, left foot (02/19/24) Other instability, left ankle (02/19/24) Stiffness of left ankle, not elsewhere classified (02/19/24) Physical Therapy Treatment Note PT-OP-A Visit Information Start: 12/23/23 08:12 Freq: Status: Active Protocol: Document 02/19/24 11:27 [facility] (Rec: 02/19/24 11:52 [facility] [id number]) Out-Patient Physical Therapy Visit Information Visit Information Visit Type Treatment Note Visit Start Time 11:20 Visit Stop Time 12:00 Visit Number 15 PT-OP-B Current Condition Start: 12/23/23 08:12 Freq: Status: Active Protocol: Document 12/23/23 14:30 [facility] (Rec: 12/23/23 15:12 [facility] [id number]) Current Condition History of Current Condition Onset Date 11/04/23 Current Complaints pain 2/10 left foot, decreased tolerance for walking and balance History of Current Condition November 04 she underwent a 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 At the same time she had a arthrodesis of the left metatarsophalangeal joint and percutaneous tenotomy of the left second and fourth toes. At this time Serenity is not walking as well as she would like to, she rates her discomfort as a 2/10, bending her toes is the hardest and it still is swollen. She was using a cane prior to her surgery. She reports most of her swelling feels like its on the bottom of her foot at the bottom of the great toe. She has tried using vitamin E on her scars PT-OP-C Subjective Start: 12/23/23 08:12 Freq: Status: Active Protocol: Document 02/19/24 11:27 [facility] (Rec: 02/19/24 11:52 [facility] [id number]) OP-PT Subjective Patient Comments Patient Comments pt reports she feels thather right ankle is giving way and her knee is giving way and she will see ortho as she feels she is hyperextending. SHe will be seeing Dr Owens PT-OP-J Posture/Palpation/Skin Start: 12/23/23 08:12 Freq: Status: Active Protocol: Document 12/23/23 14:30 [facility] (Rec: 12/24/23 09:24 [facility] [id number]) Palpation Assessment Location left web space between first and third toes Palpation Findings Edema,Soft Tissue Tightness, Tenderness Palpation Details scar tissue present from amputation of the second toe on the left side in the web space dorsal aspect of great toe Palpation Findings Edema,Soft Tissue Tightness Palpation Details scar tissue restrictions on the left great toe from the arthrodesis of the left metararsophalangeal going plantar aspect of the great toe left Palpation Findings Edema,Soft Tissue Tightness, Tenderness Palpation Details swelling and tenderness on the plantar aspect of the base of the great toe and where amputation was done for the second toe. PT-OP-K Range of Motion Start: 12/23/23 08:12 Freq: Status: Active Protocol: Document 12/23/23 14:30 [facility] (Rec: 12/24/23 09:39 [facility] [id number]) Ankle and Foot Goniometric Range of Motion Ankle and Foot Right Ankle/Foot ROM WFL Yes Testing Position Supine Dorsiflexion with Knee Extended 10 Plantarflexion 15 Left Ankle/Foot ROM WFL No Testing Position Supine Dorsiflexion with Knee Extended 5 Plantarflexion 10 Ankle and Foot ROM Limitations ROM Limitations Soft Tissue Tightness,Muscle Weakness PT-OP-M Strength Start: 12/24/23 09:16 Freq: Status: Active Protocol: Document 12/23/23 14:30 [facility] (Rec: 12/24/23 09:39 [facility] [id number]) Ankle/Foot Strength Ankle and Foot Manual Muscle Testing Right Dorsiflexion (L4) 5 Normal Plantarflexion (S1) 5 Normal Left Dorsiflexion (L4) 3+ Fair+ Plantarflexion (S1) 3+ Fair+ PT-OP-N Lymphedema Start: 12/24/23 09:35 Freq: Status: Active Protocol: Document 02/19/24 11:52 [facility] (Rec: 02/19/24 11:56 [facility] [id number]) Lymphedema Measurements Lower Extremity Circumference Measurements Left MT Heads 20 cm PT-OP-Q Treatments Start: 12/23/23 08:12 Freq: Status: Active Protocol: Document 02/19/24 12:17 [facility] (Rec: 02/19/24 12:22 [facility] [id number]) Therapeutic Exercises Standing Exercises HR/ TR Standing Exercise Name 1. DL 2. D up, L down Equipment Used rail support Reps/Minutes 1. 2x10 2. x10 Comments good response, tiring, ankle stab trng STS, taps Standing Exercise Name 1. STS 2. eccentric taps to table Equipment Used to 18 table Reps/Minutes x5 STS, taps x3 Comments cued hip hinge, knee behind forefoot standing dynamic calf stretch Standing Exercise Name Trialed off step: 1. gastroc 2 . soleus 3. Dynamic calf raises Equipment Used rail support, bottom step Manual Therapy Treatment Soft Tissue Mobilization plantar fascia attachments to the MTP's Mobilization Type Myofascial Release Comments MFR of the plantar fascia especially at the base of the Metatarsal heads. 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 PROM L 1st toe abd midline, stretch. PT-OP-R Modalities Start: 01/07/24 08:40 Freq: Status: Active Protocol: Document 01/08/24 10:35 SP (Rec: 01/08/24 11:21 SP [id number]) Hot Pack/Cold Pack Treatment CP Location L 1-3>4-5 PIP Patient Position Hooklying Comments 10 min A & P PT-OP-T Assessment and Plan Start: 12/23/23 08:12 Freq: Status: Active Protocol: Document 02/19/24 12:17 [facility] (Rec: 02/19/24 12:22 [facility] [id number]) Physical Therapy Assessment Assessment Summary Assessment I talked to Serenity about using her cane again especially if she is feeling right sided ankle and knee pain. She agrees to do this. She notes decreased pain in the plantar fascia at this time Physical Therapy Plan Frequency and Duration Frequency of Treatment 2x/Week Duration of treatment (weeks) 8 Plan of Care Start Date 01/13/24 Plan of Care End Date 03/09/24 Therapeutic Interventions Therapeutic Interventions Home Exercise Program,Manual Therapy,Neuromuscular Re- education,Patient/Caregiver Education,Self-Care/Home Management,Soft Tissue Mobilization,Therapeutic Exercises Next Visit Focus/Plan Next Note Type Treatment Note Next Visit Plan continue with challanging balance and gait if right ankle/knee is feeling better next visit
--- NOTE | 2024-02-24 08:57 | PT.OTN ---
Current Diagnoses Acquired deformities of toe(s), unspecified, left foot (02/24/24) Other instability, left ankle (02/24/24) Stiffness of left ankle, not elsewhere classified (02/24/24) Physical Therapy Treatment Note PT-OP-A Visit Information Start: 12/23/23 08:12 Freq: Status: Active Protocol: Document 02/24/24 08:18 [facility] (Rec: 02/24/24 08:57 [facility] [id number]) Out-Patient Physical Therapy Visit Information Visit Information Visit Type Treatment Note Visit Start Time 08:15 Visit Stop Time 09:00 Visit Number 16 PT-OP-B Current Condition Start: 12/23/23 08:12 Freq: Status: Active Protocol: Document 12/23/23 14:30 [facility] (Rec: 12/23/23 15:12 [facility] [id number]) Current Condition History of Current Condition Onset Date 11/04/23 Current Complaints pain 2/10 left foot, decreased tolerance for walking and balance History of Current Condition November 04 she underwent a 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 At the same time she had a arthrodesis of the left metatarsophalangeal joint and percutaneous tenotomy of the left second and fourth toes. At this time Serenity is not walking as well as she would like to, she rates her discomfort as a 2/10, bending her toes is the hardest and it still is swollen. She was using a cane prior to her surgery. She reports most of her swelling feels like its on the bottom of her foot at the bottom of the great toe. She has tried using vitamin E on her scars PT-OP-C Subjective Start: 12/23/23 08:12 Freq: Status: Active Protocol: Document 02/24/24 08:18 [facility] (Rec: 02/24/24 08:57 [facility] [id number]) OP-PT Subjective Patient Comments Patient Comments pt reports her right ankle is feeling better but she hasn't done any thing either. SHe comes in without her cane today. Her left foot feels more swollen this am. She feels like she needs a new seperator. PT-OP-J Posture/Palpation/Skin Start: 12/23/23 08:12 Freq: Status: Active Protocol: Document 12/23/23 14:30 [facility] (Rec: 12/24/23 09:24 [facility] [id number]) Palpation Assessment Location left web space between first and third toes Palpation Findings Edema,Soft Tissue Tightness, Tenderness Palpation Details scar tissue present from amputation of the second toe on the left side in the web space dorsal aspect of great toe Palpation Findings Edema,Soft Tissue Tightness Palpation Details scar tissue restrictions on the left great toe from the arthrodesis of the left metararsophalangeal going plantar aspect of the great toe left Palpation Findings Edema,Soft Tissue Tightness, Tenderness Palpation Details swelling and tenderness on the plantar aspect of the base of the great toe and where amputation was done for the second toe. PT-OP-K Range of Motion Start: 12/23/23 08:12 Freq: Status: Active Protocol: Document 12/23/23 14:30 [facility] (Rec: 12/24/23 09:39 [facility] [id number]) Ankle and Foot Goniometric Range of Motion Ankle and Foot Right Ankle/Foot ROM WFL Yes Testing Position Supine Dorsiflexion with Knee Extended 10 Plantarflexion 15 Left Ankle/Foot ROM WFL No Testing Position Supine Dorsiflexion with Knee Extended 5 Plantarflexion 10 Ankle and Foot ROM Limitations ROM Limitations Soft Tissue Tightness,Muscle Weakness PT-OP-M Strength Start: 12/24/23 09:16 Freq: Status: Active Protocol: Document 12/23/23 14:30 [facility] (Rec: 12/24/23 09:39 [facility] [id number]) Ankle/Foot Strength Ankle and Foot Manual Muscle Testing Right Dorsiflexion (L4) 5 Normal Plantarflexion (S1) 5 Normal Left Dorsiflexion (L4) 3+ Fair+ Plantarflexion (S1) 3+ Fair+ PT-OP-N Lymphedema Start: 12/24/23 09:35 Freq: Status: Active Protocol: Document 02/19/24 11:52 [facility] (Rec: 02/19/24 11:56 [facility] [id number]) Lymphedema Measurements Lower Extremity Circumference Measurements Left MT Heads 20 cm PT-OP-Q Treatments Start: 12/23/23 08:12 Freq: Status: Active Protocol: Document 02/24/24 08:18 [facility] (Rec: 02/24/24 08:57 [facility] [id number]) Therapeutic Exercises Supine Exercises ankle eversion with theraband Supine Exercise Name sitting Side bilateral Resistance TB #2 aqua green Reps/Minutes 3 x 10 reps Comments tied loop around for L and under R ankle long sitting ankle plantar flexion /DF with resistance band Supine Exercise Name toe and ankle PF/eccentric extension Resistance TB #2 aqua green Equipment Used seated Reps/Minutes x 20 reps Comments cued slow eccentric, toe long flexion 1st & 2nd noted Sitting Exercises rolling foot on soft golf ball Reps/Minutes x 4 min PT-OP-R Modalities Start: 01/07/24 08:40 Freq: Status: Active Protocol: Document 01/08/24 10:35 SP (Rec: 01/08/24 11:21 SP [id number]) Hot Pack/Cold Pack Treatment CP Location L 1-3>4-5 PIP Patient Position Hooklying Comments 10 min A & P PT-OP-T Assessment and Plan Start: 12/23/23 08:12 Freq: Status: Active Protocol: Document 02/24/24 08:18 [facility] (Rec: 02/24/24 08:57 [facility] [id number]) Physical Therapy Assessment Assessment Summary Assessment Ankle ROM into DF has improved , continue discussing use of cane for Serenity as she is still feeling the right side knee and ankle discomfort with gait Physical Therapy Plan Frequency and Duration Frequency of Treatment 2x/Week Duration of treatment (weeks) 8 Plan of Care Start Date 01/13/24 Plan of Care End Date 03/09/24 Therapeutic Interventions Therapeutic Interventions Home Exercise Program,Manual Therapy,Neuromuscular Re- education,Patient/Caregiver Education,Self-Care/Home Management,Soft Tissue Mobilization,Therapeutic Exercises Next Visit Focus/Plan Next Note Type Treatment Note Next Visit Plan continue with challanging balance and gait if right ankle/knee is feeling better next visit
--- NOTE | 2024-03-05 10:29 | PT.OTN ---
Current Diagnoses Acquired deformities of toe(s), unspecified, left foot (03/05/24) Other instability, left ankle (03/05/24) Stiffness of left ankle, not elsewhere classified (03/05/24) Physical Therapy Treatment Note PT-OP-A Visit Information Start: 12/23/23 08:12 Freq: Status: Active Protocol: Document 03/05/24 09:49 SP (Rec: 03/05/24 10:28 SP [id number]) Out-Patient Physical Therapy Visit Information Visit Information Visit Type Treatment Note Visit Start Time 09:49 Visit Stop Time 10:29 Visit Number 17 Number of BEDSPREAD INSPECTOR Visits 1 Evaluation Information Evaluation Date 12/23/23 PT-OP-B Current Condition Start: 12/23/23 08:12 Freq: Status: Active Protocol: Document 12/23/23 14:30 [facility] (Rec: 12/23/23 15:12 [facility] [id number]) Current Condition History of Current Condition Onset Date 11/04/23 Current Complaints pain 2/10 left foot, decreased tolerance for walking and balance History of Current Condition November 04 she underwent a 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 At the same time she had a arthrodesis of the left metatarsophalangeal joint and percutaneous tenotomy of the left second and fourth toes. At this time Serenity is not walking as well as she would like to, she rates her discomfort as a 2/10, bending her toes is the hardest and it still is swollen. She was using a cane prior to her surgery. She reports most of her swelling feels like its on the bottom of her foot at the bottom of the great toe. She has tried using vitamin E on her scars PT-OP-C Subjective Start: 12/23/23 08:12 Freq: Status: Active Protocol: Document 03/05/24 09:49 SP (Rec: 03/05/24 10:28 SP [id number]) OP-PT Subjective Patient Comments Patient Comments Pt reported upper lumbar of back bothering her after was pulling out hose yesterday mainly to Right. PT-OP-J Posture/Palpation/Skin Start: 12/23/23 08:12 Freq: Status: Active Protocol: Document 12/23/23 14:30 [facility] (Rec: 12/24/23 09:24 [facility] [id number]) Palpation Assessment Location left web space between first and third toes Palpation Findings Edema,Soft Tissue Tightness, Tenderness Palpation Details scar tissue present from amputation of the second toe on the left side in the web space dorsal aspect of great toe Palpation Findings Edema,Soft Tissue Tightness Palpation Details scar tissue restrictions on the left great toe from the arthrodesis of the left metararsophalangeal going plantar aspect of the great toe left Palpation Findings Edema,Soft Tissue Tightness, Tenderness Palpation Details swelling and tenderness on the plantar aspect of the base of the great toe and where amputation was done for the second toe. PT-OP-K Range of Motion Start: 12/23/23 08:12 Freq: Status: Active Protocol: Document 12/23/23 14:30 [facility] (Rec: 12/24/23 09:39 [facility] [id number]) Ankle and Foot Goniometric Range of Motion Ankle and Foot Right Ankle/Foot ROM WFL Yes Testing Position Supine Dorsiflexion with Knee Extended 10 Plantarflexion 15 Left Ankle/Foot ROM WFL No Testing Position Supine Dorsiflexion with Knee Extended 5 Plantarflexion 10 Ankle and Foot ROM Limitations ROM Limitations Soft Tissue Tightness,Muscle Weakness PT-OP-M Strength Start: 12/24/23 09:16 Freq: Status: Active Protocol: Document 12/23/23 14:30 [facility] (Rec: 12/24/23 09:39 [facility] [id number]) Ankle/Foot Strength Ankle and Foot Manual Muscle Testing Right Dorsiflexion (L4) 5 Normal Plantarflexion (S1) 5 Normal Left Dorsiflexion (L4) 3+ Fair+ Plantarflexion (S1) 3+ Fair+ PT-OP-N Lymphedema Start: 12/24/23 09:35 Freq: Status: Active Protocol: Document 02/19/24 11:52 [facility] (Rec: 02/19/24 11:56 [facility] [id number]) Lymphedema Measurements Lower Extremity Circumference Measurements Left MT Heads 20 cm PT-OP-Q Treatments Start: 12/23/23 08:12 Freq: Status: Active Protocol: Document 03/05/24 09:49 SP (Rec: 03/05/24 10:28 SP [id number]) Gym Equipment Shuttle Recovery heel raises Details L Resistance 25# navy Reps/Time 6, 8, 10 reps SL squat Resistance 25# navy band Reps/Time x10 reps Therapeutic Exercises Supine Exercises stretching Supine Exercise Name 1. LTR L 2. SKTC R Reps/Minutes 20 SH each x2 Comments good feedback R LB stretch/ mobility Standing Exercises mini squats Standing Exercise Name uneven large blue foam Equipment Used inside //bars Reps/Minutes x5 reps before R knee bothersome, L ankle ok lunges Standing Exercise Name trialed mini Side bilateral Equipment Used rail support Reps/Minutes 5 reps Comments ok after manual R calf HR/ TR Standing Exercise Name 1. DL 2. L SL Equipment Used rail support Reps/Minutes 1. x10 2. 6, 10 reps Comments 1. post R knee discomfort- better post manual 2. L SL weakness no pain Manual Therapy Treatment Soft Tissue Mobilization LS Body Location L>RES, QL Neuro Re-Education Treatment Balance Activities uneven surface marching Details marching, mini squat Equipment large blue foam- inside //bars Reps/Duration 10 reps march, 5 squats before R knee started bothersome Comments no UE support PT-OP-R Modalities Start: 01/07/24 08:40 Freq: Status: Active Protocol: Document 01/08/24 10:35 SP (Rec: 01/08/24 11:21 SP [id number]) Hot Pack/Cold Pack Treatment CP Location L 1-3>4-5 PIP Patient Position Hooklying Comments 10 min A & P PT-OP-T Assessment and Plan Start: 12/23/23 08:12 Freq: Status: Active Protocol: Document 03/05/24 09:49 SP (Rec: 03/05/24 10:28 SP [id number]) Physical Therapy Assessment Goals 4 Impairment Decreased strength left ankle DF/PF as compared to the right side Short Term Goal (STG) Serenity is educated in a home program for ankle strengthening good progress STG Duration 4 weeks Commissary Assistant Goal (LTG) Serenity presents with improved strength for DF and PF of the left ankle good progress LTG Duration 8 weeks 3 Impairment Serenity is limited to walking 1-2 blocks with SPC at this time Retirement Goal (LTG) Serenity is no longer using a single point cane and feels she has improved her walking distance to 15-20 min excellent progress 01/16/24: progressingwalking about 15 min walking around [place] use of grocery cart, 6MWT 1005 ft no AD. LTG Duration 8 weeks progressing 01/16/24 2 Impairment scar tissue restrictions on both the dorsal and plantar aspects of the great toe on the left causing reports of discomfort rated 2/10 with standing and walking Short Term Goal (STG) Serenity is able to tolerate gentle scar tissue mobilization to assist with improved mobility of the tissue around her great toe on the left excellent progress STG Duration 4 weeks activity tolerance Impairment lower extremity functional scale (LEFS) 34 [employer] Assistant Goal (LTG) Serenity reports a overall improvement with functional movements and has improved her score by 8-10 points LTG Duration 12 weeks Assessment Summary Assessment Pt improved LLE ankle strengthening today to single leg with UE support during heel raises body weight and shuttle recovery press with increase reps tolerated and uneven marching and mini squat stability no UE support to progress back to yard work. Pt notices her gains in L ankle strength during ADLs although still experiences swelling in L forefoot is happ with progress made and feels can continue on own with various PT exercises given. She had physician appt follow up soon but in agreement has progressed to doing most ADLs. She has new R posterior knee discomfort but not what being seen for in PT, will address this with ortho when sees again. Physical Therapy Plan Frequency and Duration Frequency of Treatment 2x/Week Duration of treatment (weeks) 8 Plan of Care Start Date 01/13/24 Plan of Care End Date 03/09/24 Therapeutic Interventions Therapeutic Interventions Home Exercise Program,Manual Therapy,Neuromuscular Re- education,Patient/Caregiver Education,Self-Care/Home Management,Soft Tissue Mobilization,Therapeutic Exercises Next Visit Focus/Plan Next Note Type Treatment Note Next Visit Plan Review HEP and progress if needed. Possible next tx being her last. POC PT: continue with challanging balance and gait if right ankle/knee
--- NOTE | 2024-03-09 12:00 | PT.OTN ---
Current Diagnoses Acquired deformities of toe(s), unspecified, left foot (03/09/24) Other instability, left ankle (03/09/24) Stiffness of left ankle, not elsewhere classified (03/09/24) Physical Therapy Treatment Note PT-OP-A Visit Information Start: 12/23/23 08:12 Freq: Status: Active Protocol: Document 03/09/24 11:20 [facility] (Rec: 03/09/24 11:53 [facility] [id number]) Out-Patient Physical Therapy Visit Information Visit Information Visit Type Treatment Note Visit Start Time 11:20 Visit Stop Time 12:00 Visit Number 18 PT-OP-B Current Condition Start: 12/23/23 08:12 Freq: Status: Active Protocol: Document 12/23/23 14:30 [facility] (Rec: 12/23/23 15:12 [facility] [id number]) Current Condition History of Current Condition Onset Date 11/04/23 Current Complaints pain 2/10 left foot, decreased tolerance for walking and balance History of Current Condition November 04 she underwent a 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 At the same time she had a arthrodesis of the left metatarsophalangeal joint and percutaneous tenotomy of the left second and fourth toes. At this time Serenity is not walking as well as she would like to, she rates her discomfort as a 2/10, bending her toes is the hardest and it still is swollen. She was using a cane prior to her surgery. She reports most of her swelling feels like its on the bottom of her foot at the bottom of the great toe. She has tried using vitamin E on her scars PT-OP-C Subjective Start: 12/23/23 08:12 Freq: Status: Active Protocol: Document 03/09/24 11:20 [facility] (Rec: 03/09/24 11:53 [facility] [id number]) OP-PT Subjective Patient Comments Patient Comments Serenity notes she is feeling great and she sees her Surgeon tomorrow, occasionally her scar feels a little stretched but that is only occasionally PT-OP-J Posture/Palpation/Skin Start: 12/23/23 08:12 Freq: Status: Active Protocol: Document 12/23/23 14:30 [facility] (Rec: 12/24/23 09:24 [facility] [id number]) Palpation Assessment Location left web space between first and third toes Palpation Findings Edema,Soft Tissue Tightness, Tenderness Palpation Details scar tissue present from amputation of the second toe on the left side in the web space dorsal aspect of great toe Palpation Findings Edema,Soft Tissue Tightness Palpation Details scar tissue restrictions on the left great toe from the arthrodesis of the left metararsophalangeal going plantar aspect of the great toe left Palpation Findings Edema,Soft Tissue Tightness, Tenderness Palpation Details swelling and tenderness on the plantar aspect of the base of the great toe and where amputation was done for the second toe. PT-OP-K Range of Motion Start: 12/23/23 08:12 Freq: Status: Active Protocol: Document 12/23/23 14:30 [facility] (Rec: 12/24/23 09:39 [facility] [id number]) Ankle and Foot Goniometric Range of Motion Ankle and Foot Right Ankle/Foot ROM WFL Yes Testing Position Supine Dorsiflexion with Knee Extended 10 Plantarflexion 15 Left Ankle/Foot ROM WFL No Testing Position Supine Dorsiflexion with Knee Extended 5 Plantarflexion 10 Ankle and Foot ROM Limitations ROM Limitations Soft Tissue Tightness,Muscle Weakness PT-OP-M Strength Start: 12/24/23 09:16 Freq: Status: Active Protocol: Document 12/23/23 14:30 [facility] (Rec: 12/24/23 09:39 [facility] [id number]) Ankle/Foot Strength Ankle and Foot Manual Muscle Testing Right Dorsiflexion (L4) 5 Normal Plantarflexion (S1) 5 Normal Left Dorsiflexion (L4) 3+ Fair+ Plantarflexion (S1) 3+ Fair+ PT-OP-N Lymphedema Start: 12/24/23 09:35 Freq: Status: Active Protocol: Document 03/09/24 11:53 [facility] (Rec: 03/09/24 12:00 [facility] [id number]) Lymphedema Measurements Lower Extremity Circumference Measurements Left MT Heads 19.1 cm PT-OP-Q Treatments Start: 12/23/23 08:12 Freq: Status: Active Protocol: Document 03/09/24 11:20 [facility] (Rec: 03/09/24 11:53 [facility] [id number]) Therapeutic Exercises Supine Exercises ankle eversion with theraband Supine Exercise Name sitting Side bilateral Resistance TB #2 aqua green Reps/Minutes 3 x 10 reps Comments tied loop around for L and under R ankle long sitting ankle plantar flexion /DF with resistance band Supine Exercise Name toe and ankle PF/eccentric extension Resistance TB #2 aqua green Equipment Used seated Reps/Minutes x 20 reps Comments cued slow eccentric, toe long flexion 1st & 2nd noted Standing Exercises mini squats Standing Exercise Name uneven large blue foam Equipment Used inside //bars Reps/Minutes x5 reps before R knee bothersome, L ankle ok STS, taps Standing Exercise Name 1. STS 2. eccentric taps to table Equipment Used to 18 table Reps/Minutes x5 STS, taps x3 Comments cued hip hinge, knee behind forefoot PT-OP-R Modalities Start: 01/07/24 08:40 Freq: Status: Active Protocol: Document 01/08/24 10:35 [facility] (Rec: 01/08/24 11:21 [facility] [id number]) Hot Pack/Cold Pack Treatment CP Location L 1-3>4-5 PIP Patient Position Hooklying Comments 10 min A & P PT-OP-T Assessment and Plan Start: 12/23/23 08:12 Freq: Status: Active Protocol: Document 03/09/24 11:20 [facility] (Rec: 03/09/24 11:53 [facility] [id number]) Physical Therapy Assessment Goals 4 Impairment Decreased strength left ankle DF/PF as compared to the right side Short Term Goal (STG) Serenity is educated in a home program for ankle strengthening good progress STG Duration 4 weeks Usp Goal (LTG) Serenity presents with improved strength for DF and PF of the left ankle good progress LTG Duration 8 weeks 3 Impairment Serenity is limited to walking 1-2 blocks with SPC at this time Usp Goal (LTG) Serenity is no longer using a single point cane and feels she has improved her walking distance to 15-20 min excellent progress 01/16/24: progressingwalking about 15 min walking around [place] use of grocery cart, 6MWT 1005 ft no AD. LTG Duration 8 weeks progressing 01/16/24 2 Impairment scar tissue restrictions on both the dorsal and plantar aspects of the great toe on the left causing reports of discomfort rated 2/10 with standing and walking Short Term Goal (STG) Serenity is able to tolerate gentle scar tissue mobilization to assist with improved mobility of the tissue around her great toe on the left goal met STG Duration 4 weeks activity tolerance Impairment lower extremity functional scale (LEFS) 34 Usp Goal (LTG) Serenity reports a overall improvement with functional movements and has improved her score by 8-10 points LTG Duration 12 weeks Assessment Summary Assessment Serenity had her last appt in PT today and she is doing really well with her HEP. She is no longer using her cane. She is limited in walking distance due to right knee pain but is not experiencing any pain from walking on left foot. Physical Therapy Plan Discharge Physical Therapy Discharge Reasons Goals Met
== END 2024-03-11 12:13 | disposition home or self-care (01) ==
LOC: PHYS 11:15
PROVIDERS: Family Provider Internal Medicine; PCP Internal Medicine; Referring Provider Podiatrist; Visit Provider Internal Medicine
DX: M20.62 Acquired deformities of toe(s), unspecified, left foot (principal); M25.672 Stiffness of left ankle, not elsewhere classified; M25.372 Other instability, left ankle
CPT/HCPCS: 97010; 97110; 97112; 97140; 97161; 97535

== ENCOUNTER 2024-04-26 10:30 | Day surgery (SDC) | payer MEDICARE, OTHER, SELFPAY ==
--- NOTE | 2024-04-26 | PATH_ITS ---
[facility] Accession Number: [id number] No. of containers..01 Tissue . 01 Material submitted: . colon - RANDOM COLON . 01 Diagnosis: RANDOM COLON: Colonic mucosa with no diagnostic alterations. No active inflammation, granulomas, dysplasia, or malignancy identified. No evidence of colitis. [facility] 04/28/20241439 Local . 01 Electronically signed: . Kavon Betancourt MD, Pathologist NPI- [id number] . 01 Gross description: . Received in formalin with two patient identifiers and random colon biopsy, are two calderon soft tissue fragments, 0.3 to 0.4 cm in greatest dimension. Submitted in A1. ([id number]) /MRV 04/28/20241439 Local . 01 Pathologist provided ICD-10: Z86.010 . 01 CPT . 859567 Specimen Comment: A courtesy copy of this report has been sent to [phone] Performed at: [address] [facility] [address], [place], [place] [id number] MD Kavon Betancourt MD Phone: [phone]
[2024-04-26 10:55] VITALS: BP 160/80; PULSE 90; RESP 20; TEMP 36.5; O2SAT 97
[2024-04-26] MEDS: LACTATED RINGERS 1,000 ML 42 ML IV ×2 (11:04→12:13)
--- NOTE | 2024-04-26 11:09 | P.HP_ITS ---
History of Present Illness History of Present Illness Date Patient Seen: 04/26/24 Time Patient Seen: 11:09 Chief complaint: Dx Colonoscopy Narrative: 78-year-old female directly scheduled for colonoscopy today. She is unsure of her polyp history and believes she had a procedure done 5 years ago. She reports chronic longstanding diarrhea and wishes to have an evaluation for this today. [facility] Medical History Gastroesophageal reflux disease with esophagitis Osteopenia Weight loss Dysphagia Chronic hyponatremia Overactive bladder Urinary frequency Urge incontinence Cancer UTI (urinary tract infection) Chronic renal failure, stage 3 (moderate) Mixed urge and stress incontinence Incomplete left bundle branch block (LBBB) Lumbar spinal stenosis Viral cardiomyopathy Depression Osteoporosis, unspecified Cyclothymia Sciatica Fractures (~2004) Measles Chicken pox Cataracts, bilateral (~2015) Genital warts (~1984) History of urinary incontinence (~2014) Fecal incontinence (~2014) Heart palpitations Constipation Surgical History H/O hernia repair Anesthesia History of vaginal hysterectomy (~1996) Melanoma (~1981) Family History Father Hypertension Heart disease Mother Cancer Diabetes mellitus Hyperlipidemia Sister Cervical cancer Grandfather No problems noted. Grandmother Hypertension Grandmother Hypertension Social History household members: spouse Smoking Status: Never smoker Meds Home Medications and Allergies Home Medications Medication Instructions Recorded Confirmed Type acetaminophen 500 mg tablet 500 mg PO Q4HP PRN Pain (Scale 06/24/17 04/26/24 History (Tylenol Extra Strength) Score 1-3) ##0 cholecalciferol (vitamin D3) 125 5,000 unit PO QDAY ##0 06/24/17 04/26/24 History mcg (5,000 unit) capsule metoprolol succinate 25 mg 12.5 mg PO QDAY ##0 06/24/17 04/26/24 History tablet,extended release 24 hr (Toprol XL) ibuprofen 200 mg capsule 200 mg PO Q4-6H PRN Pain (Scale 12/11/18 04/26/24 History Score 1-3) Disabled Parking #1 ea 11/22/22 03/26/24 Rx calcium carbonate 600 mg PO BID 05/12/23 04/26/24 History trazodone 100 mg tablet 150 mg (1.5 x 100 mg) PO BEDTIME 07/08/23 04/26/24 Rx insomnia #135 tabs aripiprazole 5 mg tablet 5 mg PO DAILY #90 tabs 09/01/23 04/26/24 Rx lamotrigine 200 mg tablet 200 mg PO DAILY #90 tabs 09/01/23 04/26/24 Rx omeprazole 40 mg capsule,delayed 40 mg PO BID 12/01/23 04/26/24 History release oxybutynin chloride 10 mg 10 mg PO DAILY #90 tabs 02/24/24 04/26/24 Rx tablet,extended release 24 hr Allergies Allergy/AdvReac Type Severity Reaction Status Date / Time bacitracin Allergy Mild RASH Verified 03/26/24 15:25 [From Neosporin ([id number])] neomycin Allergy Mild RASH Verified 03/26/24 15:25 [From Neosporin ([id number])] polymyxin B Allergy Mild RASH Verified 03/26/24 15:25 [From Neosporin ([id number])] Sulfa (Sulfonamide Allergy Mild HIVES Verified 03/26/24 15:25 Antibiotics) Review of Systems Review of Systems ROS: Yes All systems reviewed with the patient and are negative except as otherwise documented Exam Vital Signs (past 8 hours): - 04/26/24 10:55 Temperature 97.7 F Pulse Rate 90 Respiratory Rate 20 Blood Pressure 160/80 H Pulse Oximetry 97 Oxygen Delivery Method Room Air Oxygen Delivery Method Room Air Const General: cooperative HENMT Head: normal to inspection Eyes General: appearance normal, both eyes and all related structures Neck Neck: normal visual inspection Chest Chest: normal inspection of the chest Resp Effort & Inspection: normal respiratory effort Cardio Rate: regular rate GI Inspection: normal to inspection Skin General: no rashes or lesions noted Neuro General: patient alert and patient awake Extrem General: normal to inspection and no pedal edema Psych Appearance: grossly normal Assessment & Plan Assessment & Plan narrative: This is a 78-year-old female reporting chronic longstanding diarrhea. Colonoscopy with random biopsies is pursued today.
--- NOTE | 2024-04-26 11:11 | PM.PREOP ---
Pre-operative Note Interval Note History & Physical reviewed/Exam performed by Physician: Yes Changes to H&P: No ASA Class (for procedural sedation): III
--- NOTE | 2024-04-26 12:46 | PM.OP.COLON ---
Operative Date/Time/Diagnoses Date of procedure: 04/26/24 Time of procedure: 12:46 Pre-op diagnosis: Diarrhea Post-op diagnosis: same Procedure & Clinicians Study performed: 1. Colonoscopy with biopsies 2. Incomplete colonoscopy Same procedure as scheduled: No Indications: Diarrhea Surgeon: Reji Allred Procedure Notes SCOAP/Timeout: Done Procedure in detail: After the risks and benefits were explained, written and verbal informed consent was obtained. The patient was brought into the procedure room and placed into the left lateral decubitus position. Please see anesthesia notes for sedation details. Digital rectal examination was accomplished. The scope was introduced into the patient and advanced under direct visualization to somewhere in the transverse. I suspect we were at the hepatic flexure. However the patient had an extremely tortuous redundant colon and I did not feel it was safe to continue pushing through a loop of the just could not be isolated and properly reduced. To avoid a perforation, we discontinued attempt at cecal navigation. The scope was slowly withdrawn to carefully examine the mucosa for any defects or lesions. Comprehensive imaging was accomplished throughout the rectum including the dentate line. The colon was decompressed, the scope was then removed from the patient who tolerated the procedure well. Pediatric colonoscope Bowel prep fair; with copious irrigation and suction this was rendered adequate. Scope withdrawal time: Not applicable Sedation minutes: 38 Complications: none Impression: The patient had diverticulosis all throughout the left colon. Colon was exceedingly tortuous. Was quite lengthy and redundant as well. I did not appreciate any overt procto colitis. I suspect I was probably in the proximal transverse colon when we elected to discontinue attempt at cecal navigation. We changed the patient's position multiple times and use the stiffening riley. Multiple applications of pressure were applied as well. Despite all of this, we could not overcome looping and I discontinued navigation forward to avoid possible perforation. We took some random colon biopsies on the way back in light of the patient's reported diarrhea. No additional pathology was appreciated throughout. Endoscopic diagnosis 1. Incomplete colonoscopy 2. Tortuous colon 3. Redundant colon 4. Diverticulosis Post-procedure Plan for aftercare: 1. Await histology 2. Titrate [id number] fiber supplement the desired stool consistency and frequency. 3. Consider noninvasive stool examination with Cologuard. Should this be positive, further attempt at colonoscopy with balloon assisted technology would be appropriate in that scenario. Disposition: PACU
[2024-04-26 12:51] VITALS: BP 122/70; PULSE 71; RESP 13; TEMP 36.7; O2SAT 99
[2024-04-26 12:58] VITALS: BP 112/71; PULSE 77; RESP 14; O2SAT 99
[2024-04-26 13:01] VITALS: BP 125/76; PULSE 67; RESP 17; O2SAT 100
[2024-04-26 13:06] VITALS: BP 127/61; PULSE 67; RESP 16; TEMP 36.8; O2SAT 99
[2024-04-26 13:13] VITALS: BP 135/55; PULSE 66; RESP 14; O2SAT 99
== END 2024-04-26 13:20 | disposition home or self-care (01) ==
PROVIDERS: Family Provider Internal Medicine; PCP Internal Medicine; Referring Provider Internal Medicine Gastroenterology; Visit Provider Internal Medicine Gastroenterology
PROC: 0DJD8ZZ Inspection of Lower Intestinal Tract, Via Natural or Artificial Opening Endoscopic (ICD-10-PCS; CPT 45378; principal; 2024-04-26 11:30)
DX: R19.7 Diarrhea, unspecified (principal); K57.30 Diverticulosis of large intestine without perforation or abscess without bleeding; Z53.09 Procedure and treatment not carried out because of other contraindication
CPT/HCPCS: 45378; J2704

== ENCOUNTER → 2024-05-31 07:09 | Outpatient (CLI) | payer MEDICARE, OTHER, SELFPAY ==
[2024-05-31 09:03] LABS: Alanine Aminotransferase 12 IU/L (<35); Albumin 4.1 g/dL (3.5-5.0); Albumin Globulin Ratio 2.3 (1.0-2.8); Alkaline Phosphatase 102 U/L (38-126); Aspartate Aminotransferase 26 IU/L (14-36); BUN Creatinine Ratio 21.5 (6-22); Bilirubin Total 0.4 mg/dL (0.2-1.3); Blood Urea Nitrogen 20 mg/dL (7-17); Calcium 10.1 mg/dL (8.4-10.2); Carbon Dioxide 27 mmol/L (22-32); Chloride 100 mmol/L (98-107); Estimated Glomerular Filt Rate > 60 mL/min (>60); Globulin 1.8 g/dL (1.7-4.1); Glucose 95 mg/dL (80-110); HEMOLYSIS < 15 (0-50); Magnesium 2.1 mg/dL (1.6-2.3); Sodium 133 mmol/L (137-145); Total Protein 5.9 g/dL (6.3-8.2)
== END ==
PROVIDERS: Family Provider Internal Medicine; PCP Internal Medicine; Referring Provider Specialist; Visit Provider Specialist
DX: N18.2 Chronic kidney disease, stage 2 (mild) (principal); B33.24 Viral cardiomyopathy; I44.7 Left bundle-branch block, unspecified; R00.2 Palpitations; E87.1 Hypo-osmolality and hyponatremia
CPT/HCPCS: 36415; 80053; 83735

== ENCOUNTER → 2024-09-25 15:33 | Outpatient (CLI) | payer MEDICARE, OTHER, SELFPAY ==
--- NOTE | 2024-09-25 15:35 | DI.MRI.S_ITS ---
PROCEDURE: MR SHOULDER RT WO CON INDICATIONS: IMPINGEMENT SYNDROME OF RT SHOULDER TECHNIQUE: Noncontrast oblique coronal T2 fast spin echo with fat saturation, oblique sagittal T1 spin echo and T2 fast spin echo with fat saturation, axial T1 spin echo and T2 fast spin echo with fat saturation through the shoulder. COMPARISON: [facility], MR, MR SHOULDER LT WO CON, 04/16/2023, 15:52. FINDINGS: Image quality: Excellent. Rotator cuff: Full-thickness rupture of distal supraspinatus and infraspinatus at their insertions on humeral head is seen with up to 3.7 cm medial retraction of torn tendon fibers to the level of acromioclavicular joint. Low to moderate grade intrasubstance partial-thickness tear involving distal subscapularis is seen. Sagittal images demonstrate mild to moderate supraspinatus muscle atrophy and mild infraspinatus muscle atrophy. Bones and bursae: Superior migration of humeral head in relation to glenoid is seen. [id number]-zk-[id number] acromioclavicular joint osteoarthritic changes are noted. Type 2 acromion without os acromiale. No acute fracture or dislocation. Moderate to large joint effusion and subacromial subdeltoid bursal fluid is seen, no gross loose bodies. Capsule and soft tissues: There is signal abnormality and fraying of superior anterior labrum suggestive of superior anterior labral tear. The long head of the biceps tendon appears attenuated at the level of greater tuberosity suggestive of low-grade partial-thickness tear. IMPRESSION: 1. Full-thickness rupture of supraspinatus and infraspinatus at their insertions on humeral head with up to 3.7 cm medial retraction of torn tendon fibers to the level of acromioclavicular joint. [id number]-pt-[id number] supraspinatus muscle atrophy and mild infraspinatus muscle atrophy. 2. Low to moderate grade intrasubstance partial-thickness tear involving distal subscapularis. 3. Superior migration of humeral head in relation to glenoid. Mual-[id number]-[id number] acromioclavicular joint osteoarthritis. No acute fracture or dislocation. 4. Suggestion of superior anterior glenoid labral tear. 5. Low-grade partial-thickness tear involving proximal long head of biceps. Dictated by: Joe Colon M.D. on 09/27/2024 at 8:48 Approved by: Joe Colon M.D. on 09/27/2024 at 8:52
== END ==
PROVIDERS: Family Provider Internal Medicine; PCP Internal Medicine; Referring Provider Orthopaedic Surgery; Visit Provider Orthopaedic Surgery
DX: M75.121 Complete rotator cuff tear or rupture of right shoulder, not specified as traumatic (principal); S46.111A Strain of muscle, fascia and tendon of long head of biceps, right arm, initial encounter; M75.41 Impingement syndrome of right shoulder; M19.011 Primary osteoarthritis, right shoulder
CPT/HCPCS: 73221

== ENCOUNTER → 2024-12-26 09:57 | Outpatient (CLI) | payer MEDICARE, OTHER, SELFPAY ==
--- NOTE | 2024-12-26 10:01 | DI.RAD.S_ITS ---
PROCEDURE: XR FOOT LT MIN 3V INDICATIONS: TOE DEFORMITY TECHNIQUE: 3 views of the foot were acquired. COMPARISON: None. FINDINGS: Bones: No fractures or dislocations. No suspicious bony lesions. Severe hallux valgus with prior bunionectomy. Hammertoe deformities of the 4th and 5th digits. 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 Plantar calcaneal enthesophyte. Soft tissues: No tibiotalar joint effusion. Achilles tendon appears normal. IMPRESSION: Hammertoe deformities of the 4th and 5th digits. Marked hallux valgus with prior bunionectomy Dictated by: Darron Mabry M.D. on 12/26/2024 at 10:34 Approved by: Darron Mabry M.D. on 12/26/2024 at 10:35
== END ==
PROVIDERS: Family Provider Internal Medicine; PCP Internal Medicine; Referring Provider Podiatrist; Visit Provider Podiatrist
DX: M20.62 Acquired deformities of toe(s), unspecified, left foot (principal); M20.12 Hallux valgus (acquired), left foot; M20.42 Other hammer toe(s) (acquired), left foot
CPT/HCPCS: 73630

== ENCOUNTER → 2025-01-24 11:51 | Outpatient (CLI) | payer MEDICARE, OTHER, SELFPAY ==
--- NOTE | 2025-01-24 11:52 | DI.MG.S_ITS ---
MM screening mammo BI: 01/24/2025. BI-RADS: 2 CLINICAL: 79-year old female for bilateral screening mammogram. Tyrer-Cuzick lifetime risk of 5.8%. Current reported family history of breast cancer: mother. PRIOR EXAMS 12/26/2023, 12/23/2022, 12/19/2021, 12/06/2020, 11/30/2019, 10/14/2018, 09/05/2017, 08/12/2016, 04/17/2016, 08/02/2015. MAMMOGRAPHY TECHNIQUE: 2D and 3D (tomosynthesis) digital mammographic views obtained, with additional images as needed for full coverage. Current study was also evaluated with a Computer Aided Detection (CAD) system. DENSITY D. The breasts are extremely dense, which lowers the sensitivity of mammography. MAMMOGRAPHY FINDINGS Bilateral: Benign-appearing calcifications noted. There are no suspicious masses, calcifications, or other findings in the breast. IMPRESSION: * No evidence of malignancy with benign findings. RECOMMENDATIONS Bilateral * Annual screening mammography. OVERALL ASSESSMENT CATEGORY BI-RADS-2: Benign. The [employer] recommends annual screening mammography beginning at age 40 for women with average risk of breast cancer. ELECTRONICALLY SIGNED: Shelby Goins M.D. on 01/24/2025 at 03:27:01 PM PT Interpreting Station ID: [id number]
== END ==
PROVIDERS: Family Provider Internal Medicine; PCP Internal Medicine; Referring Provider Internal Medicine; Visit Provider Internal Medicine
DX: Z12.31 Encounter for screening mammogram for malignant neoplasm of breast (principal); Z80.3 Family history of malignant neoplasm of breast; R92.333 Mammographic heterogeneous density, bilateral breasts
CPT/HCPCS: 77063; 77067

== ENCOUNTER 2025-02-03 09:45 | Outpatient (RCR) | payer MEDICARE, OTHER, SELFPAY ==
--- NOTE | 2024-11-03 15:19 | PT.OIE ---
Current Diagnoses Other specific arthropathies, not elsewhere classified, right shoulder (11/03/24) Impingement syndrome of right shoulder (11/03/24) Strain of other muscles, fascia and tendons at shoulder and upper arm level, right arm, initial encounter (11/03/24) Past Medical History (Last Reviewed 07/06/24 @ 06:12 by Zeyad Lai MD) Cancer Cataracts, bilateral (~2015) Chicken pox Chronic hyponatremia Chronic renal failure, stage 3 (moderate) Constipation Cyclothymia Depression Diverticular disease of colon Dysphagia Fecal incontinence (~2014) Fractures (~2004) Gastroesophageal reflux disease with esophagitis Genital warts (~1984) Heart palpitations History of urinary incontinence (~2014) Incomplete left bundle branch block (LBBB) Lumbar spinal stenosis Measles Mixed urge and stress incontinence Osteopenia Osteoporosis, unspecified Overactive bladder Sciatica Urge incontinence Urinary frequency UTI (urinary tract infection) Viral cardiomyopathy Weight loss Past Surgical History (Last Reviewed 07/06/24 @ 06:12 by Zeyad Lai MD) Anesthesia H/O hernia repair History of vaginal hysterectomy (~1996) Melanoma (~1981) Visit Care Team Role Provider Type Joshua Chin MD Family Provider Physician Primary Care Provider Referring Provider Specialty: Internal Medicine Address: [address] [place] [address], [address], [address] Email: [email or web address] Manuel Hernández MD Attending Provider Physician Specialty: Orthopedics Orthopedic Surgery Address: [address] [place] [address], [id number] Email: [email or web address] Physical Therapy Initial Evaluation PT-OP-A Visit Information Start: 11/03/24 09:47 Freq: Status: Active Protocol: Document 11/03/24 09:50 [facility] (Rec: 11/03/24 10:38 [facility] [id number]) Out-Patient Physical Therapy Visit Information Visit Information Visit Type Initial Evaluation Visit Start Time 09:50 Visit Stop Time 10:45 Visit Number 1 Evaluation Information Evaluation Date 11/03/24 PT-OP-B Current Condition Start: 11/03/24 09:47 Freq: Status: Active Protocol: Document 11/03/24 09:50 [facility]AK (Rec: 11/03/24 10:38 [facility] [id number]) Current Condition History of Current Condition Onset Date 09/11/24 Current Complaints right shoulder pain History of Current Condition Fell while visiting sister in [place]; tripped over curb landed on right shoulder. x- ray negative. MRI showed RC tear Saw Dr. Hernández, now going to see Dr. Villalta November 29. Hasn't done any ice or heat. Takes Ibuprofen and Acetaminophen a couple times a day. Pain as high as 8 /10. Unable to reach overhead , out to the side, or behind her back. Can't drive. Has history prior right shoulder pain due to a couple prior falls with RC tears. No surgeries Prior Treatments and Tests 1. Full-thickness rupture of supraspinatus and infraspinatus at their insertions on humeral head with up to 3.7 cm medial retraction of torn tendon fibers to the level of acromioclavicular joint. Mild -to-moderate supraspinatus muscle atrophy and mild infraspinatus muscle atrophy. 2. Low to moderate grade intrasubstance partial- thickness tear involving distal subscapularis. 3. Superior migration of humeral head in relation to glenoid. [id number] acromioclavicular joint osteoarthritis. No acute fracture or dislocation. 4. Suggestion of superior anterior glenoid labral tear. 5. Low-grade partial-thickness tear involving proximal long head of biceps. Personal Factors Other Personal Factors That May Effect chronicity, postural Therapy/Recovery dysfunction. PT-OP-C Subjective Start: 11/03/24 09:47 Freq: Status: Active Protocol: Document 11/03/24 09:50 [facility] (Rec: 11/03/24 15:17 [facility] [id number]) Patient Questionnaires Quick Dash- Upper Extremity Quick Dash UE Score 75% OP-PT Pain Assessment Pain Assessment Grid Paper Pain Assessment Grid Completed Yes Location right shoulder Intensity 8 Home Pain Medication Use Pain Medications Used Yes Pain Behaviors Pain Behaviors Facial Grimacing,Guarding, Holding Area,Restlessness, Wincing PT-OP-F Manual Assessment Start: 11/03/24 09:47 Freq: Status: Active Protocol: Document 11/03/24 09:50 [facility] (Rec: 11/03/24 15:17 [facility] [id number]) Manual Assessments Joint Mobility Assessment Joint Mobility Assessment poorly tolerated right shoulder PT-OP-H Neuro Start: 11/03/24 09:47 Freq: Status: Active Protocol: Document 11/03/24 09:50 [facility] (Rec: 11/03/24 15:17 [facility] [id number]) Sensation Evaluation Gross Sensation Gross Sensation WNL PT-OP-J Posture/Palpation/Skin Start: 11/03/24 09:47 Freq: Status: Active Protocol: Document 11/03/24 09:50 [facility] (Rec: 11/03/24 15:17 [facility] [id number]) Posture Evaluation Position Sitting Head/C-Spine Posture C-Spine Flattened T-Spine Posture Increased Kyphosis Scapula Posture (L) Protracted,(R) Protracted Arm Posture (L) Internally Rotated,(R) Internally Rotated Palpation Assessment Location right UT Palpation Findings Soft Tissue Tightness,Muscle Guarding rc insertion Palpation Location R Palpation Findings Muscle Guarding,Tenderness PT-OP-K Range of Motion Start: 11/03/24 09:47 Freq: Status: Active Protocol: Document 11/03/24 09:50 [facility] (Rec: 11/03/24 10:38 [facility] [id number]) Cervical Spine Range of Motion Cervical Spine Active Comments mod decrease all motions Shoulder Goniometric Range of Motion Shoulder Right Shoulder ROM WFL No Testing Position Sitting Flexion 25 Extension 5 Abduction 40 External Rotation at 0 degrees Abduction 10 Internal Rotation Behind Back (text) anterior hip Left Flexion 145 Extension 10 Abduction 130 External Rotation at 0 degrees Abduction 50 Internal Rotation Behind Back (text) T6 PT-OP-L Special Tests Start: 11/03/24 09:47 Freq: Status: Active Protocol: Document 11/03/24 09:50 [facility] (Rec: 11/03/24 15:17 [facility] [id number]) Special Tests Shoulder Special Tests Drop Arm Rotator Cuff Test Results + R PT-OP-Q Treatments Start: 11/03/24 09:47 Freq: Status: Active Protocol: Document 11/03/24 09:50 [facility] (Rec: 11/03/24 15:17 [facility] [id number]) Manual Therapy Treatment Consent Patient gave verbal consent for manual Yes treatment Taping R shoulder Body Location RC Treatment Focus support and pain reduction Type of Tape Kinesio Tape Skin Inspection intact Comments 3 Y strips 50% stretch, right UE supported on bolster Self-Care/Home Management Treatment Education Patient Education Home Exercise Program,Pain Management,Posture PT-OP-R Modalities Start: 11/03/24 09:47 Freq: Status: Active Protocol: Document 11/03/24 09:50 [facility] (Rec: 11/03/24 15:17 [facility] [id number]) Hot Pack/Cold Pack Treatment Heat Location right shoulder Patient Position Hooklying Patient Tolerance Good Comments bolster under legs PT-OP-T Assessment and Plan Start: 11/03/24 09:47 Freq: Status: Active Protocol: Document 11/03/24 09:50 [facility] (Rec: 11/03/24 10:38 [facility] [id number]) Physical Therapy Assessment Rehab Potential Rehabilitation Potential Fair Evaluation Complexity Number of Personal Factors/Comorbidities 1-2 Number of Body Systems Impaired 3 Clinical Presentation at Evaluation Evolving Impairments Impairments Activity Tolerance,Pain, Posture,ROM,Strength Other Concerns Fall Risk high Barriers to Rehabilitation osteopenia Goals 4 Impairment No HEP Short Term Goal (STG) Patient to be instructed in HEP for purposes of right shoulder ROM and strengthening and postural correction STG Duration 12/24/24 Apprentice Architect Goal (LTG) Patient will be independent and compliant with HEP and demonstrate right shoulder ROM WFL and strength at least 4/5 in available ROM LTG Duration 02/01/25 3 Impairment pain as high as 8/10 right shoulder Short Term Goal (STG) Decrease pain to no greater than 4/10 with all usual activities STG Duration 12/24/24 Senior Living Goal (LTG) Decrease pain to no greater than 2/10 with all usual activities LTG Duration 02/01/25 2 Impairment Quickdash UE disability score 75% Short Term Goal (STG) Decrease Quickdash score to no greater than 50% as measure of improved right UE function STG Duration 12/24/24 Apprentice Architect Goal (LTG) Decrease score to no greater than 25% as measure of improved right UE function LTG Duration 02/01/25 activity tolerance Impairment unable to reach overhead, out to side, behind her back, unable to drive Apprentice Architect Goal (LTG) Patient will demonstrate improvement in use of right UE sufficient to allow her star comb her hair, feed herself, perform toileting, and drive short distances using right UE LTG Duration 02/01/25 Assessment Summary Assessment Patient presents to PT with function-limiting pain right shoulder s/p fall with resulting RC tear and partial long head of biceps tear per MRI. Signs and symptoms consistent with MRI findings with positive drop arm test, severely limited AROM, high pain level. Patient also has significant postural dysfunction with forward head and rounded shoulders affecting biomechanics of upper quadrant. Feel she may benefit from PT to decrease her pain and improve her ROM plus gently strengthen intact musculature. Discussed POC and patient was in agreement. Physical Therapy Plan Frequency and Duration Frequency of Treatment 2x/Week Duration of treatment (weeks) 8 Plan of Care Start Date 11/03/24 Plan of Care End Date 01/01/25 Therapeutic Interventions Therapeutic Interventions Home Exercise Program,Manual Therapy,Patient/Caregiver Education,Self-Care/Home Management,Soft Tissue Mobilization,Taping, Therapeutic Activities, Therapeutic Exercises Modalities Cold Pack/Ice Massage,Electric Stimulation,Hot Packs, Infrared Therapy,Iontophoresis ,Ultrasound Next Visit Focus/Plan Next Note Type Treatment Note Next Visit Plan Review HEP, gentle AAROM and PROM, instruct in isometric exercises. Evaluate response to KT tape. Consider cold laser, iontophoresis.
--- NOTE | 2024-11-03 15:20 | PT.OPPOC ---
Physical, Occupational & Speech Therapy At [facility] Current Diagnoses Other specific arthropathies, not elsewhere classified, right shoulder (11/03/24) Impingement syndrome of right shoulder (11/03/24) Strain of other muscles, fascia and tendons at shoulder and upper arm level, right arm, initial encounter (11/03/24) Visit Care Team Role Provider Type Joshua Chin MD Family Provider Physician Primary Care Provider Referring Provider Specialty: Internal Medicine Address: [address] [place] [address], [facility] [address], [place], [address] Email: [email or web address] Manuel Hernández MD Attending Provider Physician Specialty: Orthopedics Orthopedic Surgery Address: [address] [place] [address], [address] Email: [email or web address] Plan Of Care PT-OP-B Current Condition Start: 11/03/24 09:47 Freq: Status: Active Protocol: Document 11/03/24 09:50 [facility] (Rec: 11/03/24 10:38 [facility] [id number]) Current Condition History of Current Condition Onset Date 09/11/24 Current Complaints right shoulder pain History of Current Condition Fell while visiting sister in [place]; tripped over curb landed on right shoulder. x- ray negative. MRI showed RC tear Saw Dr. Hernández, now going to see Dr. Villalta November 29. Hasn't done any ice or heat. Takes Ibuprofen and Acetaminophen a couple times a day. Pain as high as 8 /10. Unable to reach overhead , out to the side, or behind her back. Can't drive. Has history prior right shoulder pain due to a couple prior falls with RC tears. No surgeries Prior Treatments and Tests 1. Full-thickness rupture of supraspinatus and infraspinatus at their insertions on humeral head with up to 3.7 cm medial retraction of torn tendon fibers to the level of acromioclavicular joint. Mild -to-moderate supraspinatus muscle atrophy and mild infraspinatus muscle atrophy. 2. Low to moderate grade intrasubstance partial- thickness tear involving distal subscapularis. 3. Superior migration of humeral head in relation to glenoid. [id number] acromioclavicular joint osteoarthritis. No acute fracture or dislocation. 4. Suggestion of superior anterior glenoid labral tear. 5. Low-grade partial-thickness tear involving proximal long head of biceps. Personal Factors Other Personal Factors That May Effect chronicity, postural Therapy/Recovery dysfunction. PT-OP-T Assessment and Plan Start: 11/03/24 09:47 Freq: Status: Active Protocol: Document 11/03/24 09:50 [facility] (Rec: 11/03/24 10:38 [facility] [id number]) Physical Therapy Assessment Rehab Potential Rehabilitation Potential Fair Evaluation Complexity Number of Personal Factors/Comorbidities 1-2 Number of Body Systems Impaired 3 Clinical Presentation at Evaluation Evolving Impairments Impairments Activity Tolerance,Pain, Posture,ROM,Strength Other Concerns Fall Risk high Barriers to Rehabilitation osteopenia Goals 4 Impairment No HEP Short Term Goal (STG) Patient to be instructed in HEP for purposes of right shoulder ROM and strengthening and postural correction STG Duration 12/24/24 Paper Products Inspector Goal (LTG) Patient will be independent and compliant with HEP and demonstrate right shoulder ROM WFL and strength at least 4/5 in available ROM LTG Duration 02/01/25 3 Impairment pain as high as 8/10 right shoulder Short Term Goal (STG) Decrease pain to no greater than 4/10 with all usual activities STG Duration 12/24/24 Paper Products Inspector Goal (LTG) Decrease pain to no greater than 2/10 with all usual activities LTG Duration 02/01/25 2 Impairment Quickdash UE disability score 75% Short Term Goal (STG) Decrease Quickdash score to no greater than 50% as measure of improved right UE function STG Duration 12/24/24 Assisted Goal (LTG) Decrease score to no greater than 25% as measure of improved right UE function LTG Duration 02/01/25 activity tolerance Impairment unable to reach overhead, out to side, behind her back, unable to drive Assisted Goal (LTG) Patient will demonstrate improvement in use of right UE sufficient to allow her star comb her hair, feed herself, perform toileting, and drive short distances using right UE LTG Duration 02/01/25 Assessment Summary Assessment Patient presents to PT with function-limiting pain right shoulder s/p fall with resulting RC tear and partial long head of biceps tear per MRI. Signs and symptoms consistent with MRI findings with positive drop arm test, severely limited AROM, high pain level. Patient also has significant postural dysfunction with forward head and rounded shoulders affecting biomechanics of upper quadrant. Feel she may benefit from PT to decrease her pain and improve her ROM plus gently strengthen intact musculature. Discussed POC and patient was in agreement. Physical Therapy Plan Frequency and Duration Frequency of Treatment 2x/Week Duration of treatment (weeks) 8 Plan of Care Start Date 11/03/24 Plan of Care End Date 01/01/25 Therapeutic Interventions Therapeutic Interventions Home Exercise Program,Manual Therapy,Patient/Caregiver Education,Self-Care/Home Management,Soft Tissue Mobilization,Taping, Therapeutic Activities, Therapeutic Exercises Modalities Cold Pack/Ice Massage,Electric Stimulation,Hot Packs, Infrared Therapy,Iontophoresis ,Ultrasound Next Visit Focus/Plan Next Note Type Treatment Note Next Visit Plan Review HEP, gentle AAROM and PROM, instruct in isometric exercises. Evaluate response to KT tape. Consider cold laser, iontophoresis. Plan of Care Dates Plan of Care Start Date 11/03/24 Plan of Care End Date 01/01/25 Electronically Signed by: Opal Tineo, PT 11/03/24 [id number] If you are in agreement with this Plan of Care, please return a signed and dated copy. I have reviewed this Plan of Care and certify that the skilled therapy services above are required to meet the patient?s needs. Physician Signature Date Printed Name and Credentials Clinical Instructor Signature Printed Name and Credentials
--- NOTE | 2024-11-08 16:39 | PT.OTN ---
Current Diagnoses Other specific arthropathies, not elsewhere classified, right shoulder (11/08/24) Impingement syndrome of right shoulder (11/08/24) Strain of other muscles, fascia and tendons at shoulder and upper arm level, right arm, initial encounter (11/08/24) Physical Therapy Treatment Note PT-OP-A Visit Information Start: 11/03/24 09:47 Freq: Status: Active Protocol: Document 11/08/24 11:28 [facility] (Rec: 11/08/24 12:20 [facility] [id number]) Out-Patient Physical Therapy Visit Information Visit Information Visit Type Treatment Note Visit Start Time 11:30 Visit Stop Time 12:20 Visit Number 2 Evaluation Information Evaluation Date 11/03/24 PT-OP-B Current Condition Start: 11/03/24 09:47 Freq: Status: Active Protocol: Document 11/08/24 11:28 [facility] (Rec: 11/08/24 12:20 [facility] [id number]) Current Condition History of Current Condition Onset Date 09/11/24 Current Complaints right shoulder pain History of Current Condition Fell while visiting sister in [place]; tripped over curb landed on right shoulder. x- ray negative. MRI showed RC tear Saw Dr. Hernández, now going to see Dr. Villalta November 29. Hasn't done any ice or heat. Takes Ibuprofen and Acetaminophen a couple times a day. Pain as high as 8 /10. Unable to reach overhead , out to the side, or behind her back. Can't drive. Has history prior right shoulder pain due to a couple prior falls with RC tears. No surgeries Prior Treatments and Tests 1. Full-thickness rupture of supraspinatus and infraspinatus at their insertions on humeral head with up to 3.7 cm medial retraction of torn tendon fibers to the level of acromioclavicular joint. Mild -to-moderate supraspinatus muscle atrophy and mild infraspinatus muscle atrophy. 2. Low to moderate grade intrasubstance partial- thickness tear involving distal subscapularis. 3. Superior migration of humeral head in relation to glenoid. [id number] acromioclavicular joint osteoarthritis. No acute fracture or dislocation. 4. Suggestion of superior anterior glenoid labral tear. 5. Low-grade partial-thickness tear involving proximal long head of biceps. PT-OP-C Subjective Start: 11/03/24 09:47 Freq: Status: Active Protocol: Document 11/08/24 11:28 [facility] (Rec: 11/08/24 12:20 [facility] [id number]) OP-PT Subjective Patient Comments Patient Comments Reports can't use cane in left hand, has to continue to use in right, pain off and on, increased with exercises. Uncertain if KT tape helpful. OP-PT Pain Assessment Pain Behaviors Pain Behaviors Facial Grimacing,Guarding, Holding Area,Restlessness, Wincing PT-OP-F Manual Assessment Start: 11/03/24 09:47 Freq: Status: Active Protocol: Document 11/03/24 09:50 [facility] (Rec: 11/03/24 15:17 [facility] [id number]) Manual Assessments Joint Mobility Assessment Joint Mobility Assessment poorly tolerated right shoulder PT-OP-H Neuro Start: 11/03/24 09:47 Freq: Status: Active Protocol: Document 11/03/24 09:50 [facility] (Rec: 11/03/24 15:17 [facility] [id number]) Sensation Evaluation Gross Sensation Gross Sensation WNL PT-OP-J Posture/Palpation/Skin Start: 11/03/24 09:47 Freq: Status: Active Protocol: Document 11/03/24 09:50 [facility] (Rec: 11/03/24 15:17 [facility] [id number]) Posture Evaluation Position Sitting Head/C-Spine Posture C-Spine Flattened T-Spine Posture Increased Kyphosis Scapula Posture (L) Protracted,(R) Protracted Arm Posture (L) Internally Rotated,(R) Internally Rotated Palpation Assessment Location right UT Palpation Findings Soft Tissue Tightness,Muscle Guarding rc insertion Palpation Location R Palpation Findings Muscle Guarding,Tenderness PT-OP-K Range of Motion Start: 11/03/24 09:47 Freq: Status: Active Protocol: Document 11/03/24 09:50 [facility] (Rec: 11/03/24 10:38 [facility] [id number]) Cervical Spine Range of Motion Cervical Spine Active Comments mod decrease all motions Shoulder Goniometric Range of Motion Shoulder Right Shoulder ROM WFL No Testing Position Sitting Flexion 25 Extension 5 Abduction 40 External Rotation at 0 degrees Abduction 10 Internal Rotation Behind Back (text) anterior hip Left Flexion 145 Extension 10 Abduction 130 External Rotation at 0 degrees Abduction 50 Internal Rotation Behind Back (text) T6 PT-OP-L Special Tests Start: 11/03/24 09:47 Freq: Status: Active Protocol: Document 11/03/24 09:50 [facility] (Rec: 11/03/24 15:17 [facility] [id number]) Special Tests Shoulder Special Tests Drop Arm Rotator Cuff Test Results + R PT-OP-Q Treatments Start: 11/03/24 09:47 Freq: Status: Active Protocol: Document 11/08/24 11:28 [facility] (Rec: 11/08/24 12:20 [facility] [id number]) Therapeutic Exercises Sitting Exercises table slide Reps/Minutes 5x Comments slider sheet scapular squeeze Reps/Minutes 10x5 Standing Exercises shoulder isometrics Standing Exercise Name flex,ext,ab,ad,IR,ER,ad Equipment Used towel, wall Reps/Minutes 3x ea Comments cues for pain-free, gentle pendulum Reps/Minutes 5x Comments cues for not bending as far Manual Therapy Treatment Soft Tissue Mobilization right shoulder Body Location UT, LS, deltoid Mobilization Type Myofascial Release,Strumming Taping R shoulder Comments held due to patient not feeling benefit Self-Care/Home Management Treatment Education Patient Education Home Exercise Program,Pain Management,Posture Other Education issued updated HO for shoulder isometrics PT-OP-R Modalities Start: 11/03/24 09:47 Freq: Status: Active Protocol: Document 11/08/24 11:28 [facility] (Rec: 11/08/24 16:39 [facility] [id number]) Hot Pack/Cold Pack Treatment Heat Location right shoulder Patient Position Hooklying Patient Tolerance Good PT-OP-T Assessment and Plan Start: 11/03/24 09:47 Freq: Status: Active Protocol: Document 11/08/24 11:28 [facility] (Rec: 11/08/24 12:20 [facility] [id number]) Physical Therapy Assessment Impairments Impairments Activity Tolerance,Pain, Posture,ROM,Strength Other Concerns Fall Risk high Age Related Concerns osteopenia, rotator cuff pathology left Barriers to Rehabilitation osteopenia Goals 4 Impairment No HEP Impairment Decreased strength left ankle DF/PF as compared to the right side Short Term Goal (STG) Patient to be instructed in HEP for purposes of right shoulder ROM and strengthening and postural correction STG Duration 12/24/24 [facility] Goal (LTG) Patient will be independent and compliant with HEP and demonstrate right shoulder ROM WFL and strength at least 4/5 in available ROM LTG Duration 02/01/25 3 Impairment pain as high as 8/10 right shoulder Impairment Serenity is limited to walking 1-2 blocks with SPC at this time Short Term Goal (STG) Decrease pain to no greater than 4/10 with all usual activities STG Duration 12/24/24 Rn Patient Care Goal (LTG) Decrease pain to no greater than 2/10 with all usual activities LTG Duration 02/01/25 2 Impairment Quickdash UE disability score 75% Impairment scar tissue restrictions on both the dorsal and plantar aspects of the great toe on the left causing reports of discomfort rated 2/10 with standing and walking Short Term Goal (STG) Decrease Quickdash score to no greater than 50% as measure of improved right UE function STG Duration 12/24/24 Rn Patient Care Goal (LTG) Decrease score to no greater than 25% as measure of improved right UE function LTG Duration 02/01/25 activity tolerance Impairment unable to reach overhead, out to side, behind her back, unable to drive Impairment lower extremity functional scale (LEFS) 34 Rn Patient Care Goal (LTG) Patient will demonstrate improvement in use of right UE sufficient to allow her star comb her hair, feed herself, perform toileting, and drive short distances using right UE LTG Duration 02/01/25 Assessment Summary Assessment Reviewed HEP with patient demonstrating improved understanding after review; perform pain-free ROM and intensity, don't bend as far with pendulum to limit ROM. Added standing shoulder isometric exercises at wall with towel and issued written HO. Patient demonstrated good understanding. Trial cold laser right shoulder. Ended with moist heat. Physical Therapy Plan Frequency and Duration Frequency of Treatment 2x/Week Duration of treatment (weeks) 8 Plan of Care Start Date 11/03/24 Plan of Care End Date 01/01/25 Therapeutic Interventions Therapeutic Interventions Home Exercise Program,Manual Therapy,Patient/Caregiver Education,Self-Care/Home Management,Soft Tissue Mobilization,Taping, Therapeutic Activities, Therapeutic Exercises Modalities Cold Pack/Ice Massage,Electric Stimulation,Hot Packs, Infrared Therapy,Iontophoresis ,Ultrasound Next Visit Focus/Plan Next Note Type Treatment Note Next Visit Plan Review HEP especially isometrics. Trial pulleys.
--- NOTE | 2024-11-15 16:25 | PT.OTN ---
Current Diagnoses Other specific arthropathies, not elsewhere classified, right shoulder (11/15/24) Impingement syndrome of right shoulder (11/15/24) Strain of other muscles, fascia and tendons at shoulder and upper arm level, right arm, initial encounter (11/15/24) Physical Therapy Treatment Note PT-OP-A Visit Information Start: 11/03/24 09:47 Freq: Status: Active Protocol: Document 11/15/24 15:12 [facility] (Rec: 11/15/24 16:25 [facility] [id number]) Out-Patient Physical Therapy Visit Information Visit Information Visit Type Treatment Note Visit Start Time 15:15 Visit Stop Time 16:02 Visit Number 3 Evaluation Information Evaluation Date 11/03/24 PT-OP-B Current Condition Start: 11/03/24 09:47 Freq: Status: Active Protocol: Document 11/15/24 15:12 [facility] (Rec: 11/15/24 16:25 [facility] [id number]) Current Condition History of Current Condition Onset Date 09/11/24 Current Complaints right shoulder pain History of Current Condition Fell while visiting sister in [place]; tripped over curb landed on right shoulder. x- ray negative. MRI showed RC tear Saw Dr. Hernández, now going to see Dr. Villalta November 29. Hasn't done any ice or heat. Takes Ibuprofen and Acetaminophen a couple times a day. Pain as high as 8 /10. Unable to reach overhead , out to the side, or behind her back. Can't drive. Has history prior right shoulder pain due to a couple prior falls with RC tears. No surgeries Prior Treatments and Tests 1. Full-thickness rupture of supraspinatus and infraspinatus at their insertions on humeral head with up to 3.7 cm medial retraction of torn tendon fibers to the level of acromioclavicular joint. Mild -to-moderate supraspinatus muscle atrophy and mild infraspinatus muscle atrophy. 2. Low to moderate grade intrasubstance partial- thickness tear involving distal subscapularis. 3. Superior migration of humeral head in relation to glenoid. [id number] acromioclavicular joint osteoarthritis. No acute fracture or dislocation. 4. Suggestion of superior anterior glenoid labral tear. 5. Low-grade partial-thickness tear involving proximal long head of biceps. PT-OP-C Subjective Start: 11/03/24 09:47 Freq: Status: Active Protocol: Document 11/15/24 15:12 [facility] (Rec: 11/15/24 16:25 [facility] [id number]) OP-PT Subjective Patient Comments Patient Comments Saw Dr. Villalta, had cortisone shot, some helpful, can move right UE a little more. Though opened car door wrong and pain increased today, also inc with putting iraheta into a vase. PT-OP-F Manual Assessment Start: 11/03/24 09:47 Freq: Status: Active Protocol: Document 11/03/24 09:50 [facility] (Rec: 11/03/24 15:17 [facility] [id number]) Manual Assessments Joint Mobility Assessment Joint Mobility Assessment poorly tolerated right shoulder PT-OP-H Neuro Start: 11/03/24 09:47 Freq: Status: Active Protocol: Document 11/03/24 09:50 [facility] (Rec: 11/03/24 15:17 [facility] [id number]) Sensation Evaluation Gross Sensation Gross Sensation WNL PT-OP-J Posture/Palpation/Skin Start: 11/03/24 09:47 Freq: Status: Active Protocol: Document 11/03/24 09:50 [facility] (Rec: 11/03/24 15:17 [facility] [id number]) Posture Evaluation Position Sitting Head/C-Spine Posture C-Spine Flattened T-Spine Posture Increased Kyphosis Scapula Posture (L) Protracted,(R) Protracted Arm Posture (L) Internally Rotated,(R) Internally Rotated Palpation Assessment Location right UT Palpation Findings Soft Tissue Tightness,Muscle Guarding rc insertion Palpation Location R Palpation Findings Muscle Guarding,Tenderness PT-OP-K Range of Motion Start: 11/03/24 09:47 Freq: Status: Active Protocol: Document 11/03/24 09:50 [facility] (Rec: 11/03/24 10:38 [facility] [id number]) Cervical Spine Range of Motion Cervical Spine Active Comments mod decrease all motions Shoulder Goniometric Range of Motion Shoulder Right Shoulder ROM WFL No Testing Position Sitting Flexion 25 Extension 5 Abduction 40 External Rotation at 0 degrees Abduction 10 Internal Rotation Behind Back (text) anterior hip Left Flexion 145 Extension 10 Abduction 130 External Rotation at 0 degrees Abduction 50 Internal Rotation Behind Back (text) T6 PT-OP-L Special Tests Start: 11/03/24 09:47 Freq: Status: Active Protocol: Document 11/03/24 09:50 [facility] (Rec: 11/03/24 15:17 [facility] [id number]) Special Tests Shoulder Special Tests Drop Arm Rotator Cuff Test Results + R PT-OP-Q Treatments Start: 11/03/24 09:47 Freq: Status: Active Protocol: Document 11/15/24 15:12 [facility] (Rec: 11/15/24 16:25 [facility] [id number]) Therapeutic Exercises Sidelying Exercises sleeper stretch Comments painful to even start ex, discontinued Sitting Exercises pulleys Equipment Used Pulleys Reps/Minutes 10x Comments cues for painfree. Standing Exercises row Equipment Used L1 TB Reps/Minutes 10x Comments tactile and verbal cues for performance. passive external rotation Reps/Minutes 4x10 passive internal rotation Reps/Minutes 3x5 Comments wand posterior capsul stretch Reps/Minutes 2x Comments only small motion elke pendulum Standing Exercise Name fwd/bck, side, circles Reps/Minutes 5x Comments cues for not bending as far Manual Therapy Treatment Consent Patient gave verbal consent for manual Yes treatment Soft Tissue Mobilization right shoulder Body Location UT, LS, deltoid, bicep Mobilization Type Myofascial Release,Strumming Intensity/Depth Moderate Body Position Supine Self-Care/Home Management Treatment Education Other Education reviewd PT HEP and Dr. Villalta issued HEP PT-OP-R Modalities Start: 11/03/24 09:47 Freq: Status: Active Protocol: Document 11/08/24 11:28 [facility] (Rec: 11/08/24 16:39 [facility] [id number]) Hot Pack/Cold Pack Treatment Heat Location right shoulder Patient Position Hooklying Patient Tolerance Good PT-OP-T Assessment and Plan Start: 11/03/24 09:47 Freq: Status: Active Protocol: Document 11/15/24 15:12 [facility] (Rec: 11/15/24 16:25 [facility] [id number]) Physical Therapy Assessment Impairments Impairments Activity Tolerance,Pain, Posture,ROM,Strength Other Concerns Fall Risk high Age Related Concerns osteopenia, rotator cuff pathology left Barriers to Rehabilitation osteopenia Goals 4 Impairment No HEP Impairment Decreased strength left ankle DF/PF as compared to the right side Short Term Goal (STG) Patient to be instructed in HEP for purposes of right shoulder ROM and strengthening and postural correction STG Duration 12/24/24 [employer] Goal (LTG) Patient will be independent and compliant with HEP and demonstrate right shoulder ROM WFL and strength at least 4/5 in available ROM LTG Duration 02/01/25 3 Impairment pain as high as 8/10 right shoulder Impairment Serenity is limited to walking 1-2 blocks with SPC at this time Short Term Goal (STG) Decrease pain to no greater than 4/10 with all usual activities STG Duration 12/24/24 [employer] Goal (LTG) Decrease pain to no greater than 2/10 with all usual activities LTG Duration 02/01/25 2 Impairment Quickdash UE disability score 75% Impairment scar tissue restrictions on both the dorsal and plantar aspects of the great toe on the left causing reports of discomfort rated 2/10 with standing and walking Short Term Goal (STG) Decrease Quickdash score to no greater than 50% as measure of improved right UE function STG Duration 12/24/24 [facility] Goal (LTG) Decrease score to no greater than 25% as measure of improved right UE function LTG Duration 02/01/25 activity tolerance Impairment unable to reach overhead, out to side, behind her back, unable to drive Impairment lower extremity functional scale (LEFS) 34 [facility] Goal (LTG) Patient will demonstrate improvement in use of right UE sufficient to allow her star comb her hair, feed herself, perform toileting, and drive short distances using right UE LTG Duration 02/01/25 Assessment Summary Assessment Patient with positive response to cortisone shot, though shoulder pain easily exacerbated today with lifting arm to put iraheta in vase as well as with opening car door . Instructed in HEP issued by patient physician as above; all tolerated well after instruction with cues for neutral posture and ex in pain -free ROM except sleeper stretch not tolerated, and posterior capsule stretch minimally tolerated, unable to do with UE flexed to 90 done with arm in min flex with min movement (approx 10 deg) elke. Patient declined moist heat and laser. Physical Therapy Plan Frequency and Duration Frequency of Treatment 2x/Week Duration of treatment (weeks) 8 Plan of Care Start Date 11/03/24 Plan of Care End Date 01/01/25 Therapeutic Interventions Therapeutic Interventions Home Exercise Program,Manual Therapy,Patient/Caregiver Education,Self-Care/Home Management,Soft Tissue Mobilization,Taping, Therapeutic Activities, Therapeutic Exercises Modalities Cold Pack/Ice Massage,Electric Stimulation,Hot Packs, Infrared Therapy,Iontophoresis ,Ultrasound Next Visit Focus/Plan Next Note Type Treatment Note Next Visit Plan Continue gentle ther ex, review new ex from last session. Increased time for manual treatment.
--- NOTE | 2024-11-23 11:28 | PT.OTN ---
Current Diagnoses Other specific arthropathies, not elsewhere classified, right shoulder (11/23/24) Impingement syndrome of right shoulder (11/23/24) Strain of other muscles, fascia and tendons at shoulder and upper arm level, right arm, initial encounter (11/23/24) Physical Therapy Treatment Note PT-OP-A Visit Information Start: 11/03/24 09:47 Freq: Status: Active Protocol: Document 11/23/24 10:46 SP (Rec: 11/23/24 11:34 SP [id number]) Out-Patient Physical Therapy Visit Information Visit Information Visit Type Treatment Note Visit Start Time 10:46 Visit Stop Time 11:28 Visit Number 5 Number of GARMENT FORM ASSEMBLER Visits 1 Evaluation Information Evaluation Date 11/03/24 PT-OP-B Current Condition Start: 11/03/24 09:47 Freq: Status: Active Protocol: Document 11/18/24 08:15 SAK (Rec: 11/18/24 09:02 SAK [id number]) Current Condition History of Current Condition Onset Date 09/11/24 Current Complaints right shoulder pain History of Current Condition Fell while visiting sister in [place]; tripped over curb landed on right shoulder. x- ray negative. MRI showed RC tear Saw Dr. Hernández, now going to see Dr. Villalta November 29. Hasn't done any ice or heat. Takes Ibuprofen and Acetaminophen a couple times a day. Pain as high as 8 /10. Unable to reach overhead , out to the side, or behind her back. Can't drive. Has history prior right shoulder pain due to a couple prior falls with RC tears. No surgeries Prior Treatments and Tests 1. Full-thickness rupture of supraspinatus and infraspinatus at their insertions on humeral head with up to 3.7 cm medial retraction of torn tendon fibers to the level of acromioclavicular joint. Mild -to-moderate supraspinatus muscle atrophy and mild infraspinatus muscle atrophy. 2. Low to moderate grade intrasubstance partial- thickness tear involving distal subscapularis. 3. Superior migration of humeral head in relation to glenoid. [id number] acromioclavicular joint osteoarthritis. No acute fracture or dislocation. 4. Suggestion of superior anterior glenoid labral tear. 5. Low-grade partial-thickness tear involving proximal long head of biceps. PT-OP-C Subjective Start: 11/03/24 09:47 Freq: Status: Active Protocol: Document 11/23/24 10:46 SP (Rec: 11/23/24 11:34 SP [id number]) OP-PT Subjective Patient Comments Patient Comments Pt reports felt pretty good after last tx. Some of the exercises are challenging. PT-OP-F Manual Assessment Start: 11/03/24 09:47 Freq: Status: Active Protocol: Document 11/03/24 09:50 SAK (Rec: 11/03/24 15:17 SAK [id number]) Manual Assessments Joint Mobility Assessment Joint Mobility Assessment poorly tolerated right shoulder PT-OP-H Neuro Start: 11/03/24 09:47 Freq: Status: Active Protocol: Document 11/03/24 09:50 SAK (Rec: 11/03/24 15:17 SAK [id number]) Sensation Evaluation Gross Sensation Gross Sensation WNL PT-OP-J Posture/Palpation/Skin Start: 11/03/24 09:47 Freq: Status: Active Protocol: Document 11/03/24 09:50 SAK (Rec: 11/03/24 15:17 SAK [id number]) Posture Evaluation Position Sitting Head/C-Spine Posture C-Spine Flattened T-Spine Posture Increased Kyphosis Scapula Posture (L) Protracted,(R) Protracted Arm Posture (L) Internally Rotated,(R) Internally Rotated Palpation Assessment Location right UT Palpation Findings Soft Tissue Tightness,Muscle Guarding rc insertion Palpation Location R Palpation Findings Muscle Guarding,Tenderness PT-OP-K Range of Motion Start: 11/03/24 09:47 Freq: Status: Active Protocol: Document 11/03/24 09:50 SAK (Rec: 11/03/24 10:38 SAK [id number]) Cervical Spine Range of Motion Cervical Spine Active Comments mod decrease all motions Shoulder Goniometric Range of Motion Shoulder Right Shoulder ROM WFL No Testing Position Sitting Flexion 25 Extension 5 Abduction 40 External Rotation at 0 degrees Abduction 10 Internal Rotation Behind Back (text) anterior hip Left Flexion 145 Extension 10 Abduction 130 External Rotation at 0 degrees Abduction 50 Internal Rotation Behind Back (text) T6 PT-OP-L Special Tests Start: 11/03/24 09:47 Freq: Status: Active Protocol: Document 11/03/24 09:50 SAK (Rec: 11/03/24 15:17 SAK [id number]) Special Tests Shoulder Special Tests Drop Arm Rotator Cuff Test Results + R PT-OP-Q Treatments Start: 11/03/24 09:47 Freq: Status: Active Protocol: Document 11/23/24 10:46 SP (Rec: 11/23/24 11:34 SP [id number]) Therapeutic Exercises Supine Exercises chest press Reps/Minutes press over face to get into position for FF Comments painful presses, DC shoulder flex Equipment Used wand Reps/Minutes 10x Comments 90 - 165 deg Standing Exercises tricep ext Standing Exercise Name 1.TB 2. chair tricep push up ( past HEP) Equipment Used 1. L1 TB 2. BIG chair past HEP reviewed Reps/Minutes 1. 10x 2. 5 reps Comments cued facing door close and press down flex tricep bicep curl Standing Exercise Name 3 hand position Side bilateral Equipment Used 1# DB Reps/Minutes 5x Comments Rhomboid engagement helped discomfort reduction ant R shld- supin most chal row Standing Exercise Name Row & Extension Side bilateral Resistance L1 TB Reps/Minutes 10x each Comments cues body positioning arms straight passive internal rotation Reps/Minutes 5x5 Comments wand, able reach to L 1 provided towel- gentle stetch posterior capsul stretch Standing Exercise Name reviewed- Dr GABRIEL Side right Resistance LUE support RUE Reps/Minutes 2x 8 sec elke Comments only small motion elke pnfree shoulder isometrics Standing Exercise Name flex,ext,ab,ad,IR,ER,ad Equipment Used towel, wall Reps/Minutes 5 reps 10 SH Comments cues for pain-free, gentle pendulum Standing Exercise Name fwd/bck, side, circles Reps/Minutes 5x Comments only perform for relaxation Manual Therapy Treatment Consent Patient gave verbal consent for manual Yes treatment Soft Tissue Mobilization right shoulder Body Location anterior deltoid, bicep, pec Mobilization Type Myofascial Release,Strumming, Sustained Pressure,Other Intensity/Depth Moderate Body Position Supine Comments gentle pressure with feedback, MWM humeral IR/ER assisted range PT-OP-R Modalities Start: 11/03/24 09:47 Freq: Status: Active Protocol: Document 11/08/24 11:28 SAK (Rec: 11/08/24 16:39 SAK [id number]) Hot Pack/Cold Pack Treatment Heat Location right shoulder Patient Position Hooklying Patient Tolerance Good PT-OP-T Assessment and Plan Start: 11/03/24 09:47 Freq: Status: Active Protocol: Document 11/23/24 10:46 SP (Rec: 11/23/24 11:34 SP [id number]) Physical Therapy Assessment Goals 4 Impairment No HEP Impairment Decreased strength left ankle DF/PF as compared to the right side Short Term Goal (STG) Patient to be instructed in HEP for purposes of right shoulder ROM and strengthening and postural correction STG Duration 12/24/24 Sterilizer Operator Goal (LTG) Patient will be independent and compliant with HEP and demonstrate right shoulder ROM WFL and strength at least 4/5 in available ROM LTG Duration 02/01/25 3 Impairment pain as high as 8/10 right shoulder Impairment Serenity is limited to walking 1-2 blocks with SPC at this time Short Term Goal (STG) Decrease pain to no greater than 4/10 with all usual activities STG Duration 12/24/24 Senior Care Goal (LTG) Decrease pain to no greater than 2/10 with all usual activities LTG Duration 02/01/25 2 Impairment Quickdash UE disability score 75% Impairment scar tissue restrictions on both the dorsal and plantar aspects of the great toe on the left causing reports of discomfort rated 2/10 with standing and walking Short Term Goal (STG) Decrease Quickdash score to no greater than 50% as measure of improved right UE function STG Duration 12/24/24 Sterilizer Operator Goal (LTG) Decrease score to no greater than 25% as measure of improved right UE function LTG Duration 02/01/25 activity tolerance Impairment unable to reach overhead, out to side, behind her back, unable to drive Impairment lower extremity functional scale (LEFS) 34 Senior Care Goal (LTG) Patient will demonstrate improvement in use of right UE sufficient to allow her star comb her hair, feed herself, perform toileting, and drive short distances using right UE LTG Duration 02/01/25 Assessment Summary Assessment Pt improved reports muscle tiring, cues for head up with rhomboid engagement during most of ther ex reports improved more posterior engagement vs anterior R shld discomfort. She demonstrates improvement in RUE humeral IR behind back, provided towel for elevation with known not into pain just gentle stretch for ability to reach into coat arm as initial arm. SHe tolerates longer hold with isometrics today. Physical Therapy Plan Frequency and Duration Frequency of Treatment 2x/Week Duration of treatment (weeks) 8 Plan of Care Start Date 11/03/24 Plan of Care End Date 01/01/25 Therapeutic Interventions Therapeutic Interventions Home Exercise Program,Manual Therapy,Patient/Caregiver Education,Self-Care/Home Management,Soft Tissue Mobilization,Taping, Therapeutic Activities, Therapeutic Exercises Modalities Cold Pack/Ice Massage,Electric Stimulation,Hot Packs, Infrared Therapy,Iontophoresis ,Ultrasound Next Visit Focus/Plan Next Note Type Treatment Note Next Visit Plan Continue ther ex for gentle shoulder ROM and strengthening , postural correction. Modalities and manual therapy PRN
--- NOTE | 2024-11-25 12:22 | PT.OTN ---
Current Diagnoses Other specific arthropathies, not elsewhere classified, right shoulder (11/25/24) Impingement syndrome of right shoulder (11/25/24) Strain of other muscles, fascia and tendons at shoulder and upper arm level, right arm, initial encounter (11/25/24) Physical Therapy Treatment Note PT-OP-A Visit Information Start: 11/03/24 09:47 Freq: Status: Active Protocol: Document 11/25/24 11:32 SP (Rec: 11/25/24 12:22 SP [id number]) Out-Patient Physical Therapy Visit Information Visit Information Visit Type Treatment Note Visit Start Time 11:32 Visit Stop Time 12:22 Visit Number 6 Number of OFFICER CAPTAIN Visits 2 Evaluation Information Evaluation Date 11/03/24 PT-OP-B Current Condition Start: 11/03/24 09:47 Freq: Status: Active Protocol: Document 11/18/24 08:15 SAK (Rec: 11/18/24 09:02 SAK [id number]) Current Condition History of Current Condition Onset Date 09/11/24 Current Complaints right shoulder pain History of Current Condition Fell while visiting sister in [place]; tripped over curb landed on right shoulder. x- ray negative. MRI showed RC tear Saw Dr. Hernández, now going to see Dr. Villalta November 29. Hasn't done any ice or heat. Takes Ibuprofen and Acetaminophen a couple times a day. Pain as high as 8 /10. Unable to reach overhead , out to the side, or behind her back. Can't drive. Has history prior right shoulder pain due to a couple prior falls with RC tears. No surgeries Prior Treatments and Tests 1. Full-thickness rupture of supraspinatus and infraspinatus at their insertions on humeral head with up to 3.7 cm medial retraction of torn tendon fibers to the level of acromioclavicular joint. Mild -to-moderate supraspinatus muscle atrophy and mild infraspinatus muscle atrophy. 2. Low to moderate grade intrasubstance partial- thickness tear involving distal subscapularis. 3. Superior migration of humeral head in relation to glenoid. [id number] acromioclavicular joint osteoarthritis. No acute fracture or dislocation. 4. Suggestion of superior anterior glenoid labral tear. 5. Low-grade partial-thickness tear involving proximal long head of biceps. PT-OP-C Subjective Start: 11/03/24 09:47 Freq: Status: Active Protocol: Document 11/25/24 11:32 SP (Rec: 11/25/24 12:22 SP [id number]) OP-PT Subjective Patient Comments Patient Comments Pt reports PT-OP-F Manual Assessment Start: 11/03/24 09:47 Freq: Status: Active Protocol: Document 11/03/24 09:50 SAK (Rec: 11/03/24 15:17 SAK [id number]) Manual Assessments Joint Mobility Assessment Joint Mobility Assessment poorly tolerated right shoulder PT-OP-H Neuro Start: 11/03/24 09:47 Freq: Status: Active Protocol: Document 11/03/24 09:50 SAK (Rec: 11/03/24 15:17 SAK [id number]) Sensation Evaluation Gross Sensation Gross Sensation WNL PT-OP-J Posture/Palpation/Skin Start: 11/03/24 09:47 Freq: Status: Active Protocol: Document 11/03/24 09:50 SAK (Rec: 11/03/24 15:17 SAK [id number]) Posture Evaluation Position Sitting Head/C-Spine Posture C-Spine Flattened T-Spine Posture Increased Kyphosis Scapula Posture (L) Protracted,(R) Protracted Arm Posture (L) Internally Rotated,(R) Internally Rotated Palpation Assessment Location right UT Palpation Findings Soft Tissue Tightness,Muscle Guarding rc insertion Palpation Location R Palpation Findings Muscle Guarding,Tenderness PT-OP-K Range of Motion Start: 11/03/24 09:47 Freq: Status: Active Protocol: Document 11/03/24 09:50 SAK (Rec: 11/03/24 10:38 SAK [id number]) Cervical Spine Range of Motion Cervical Spine Active Comments mod decrease all motions Shoulder Goniometric Range of Motion Shoulder Right Shoulder ROM WFL No Testing Position Sitting Flexion 25 Extension 5 Abduction 40 External Rotation at 0 degrees Abduction 10 Internal Rotation Behind Back (text) anterior hip Left Flexion 145 Extension 10 Abduction 130 External Rotation at 0 degrees Abduction 50 Internal Rotation Behind Back (text) T6 PT-OP-L Special Tests Start: 11/03/24 09:47 Freq: Status: Active Protocol: Document 11/03/24 09:50 SAK (Rec: 11/03/24 15:17 SAK [id number]) Special Tests Shoulder Special Tests Drop Arm Rotator Cuff Test Results + R PT-OP-Q Treatments Start: 11/03/24 09:47 Freq: Status: Active Protocol: Document 11/25/24 11:32 SP (Rec: 11/25/24 12:22 SP [id number]) Therapeutic Exercises Sitting Exercises Neck stretch Sitting Exercise Name initiated UT Side right Resistance L assist as needed. Reps/Minutes 10 SH x3 reps Comments gentle over pressure if beneficial Wheel turning Sitting Exercise Name trial in PT: ER with turn motion Side bilateral Resistance R>L TB AROM & trial TB #! Equipment Used arm tucked into side Comments pain R shld 6 > 5 Stopped. ER Equipment Used L1 TB Reps/Minutes 5x5 Comments min movement table slide Side right Reps/Minutes 5x Comments slider sheet- causing adjustable table during end range back deloid Standing Exercises tricep ext Standing Exercise Name TB seated Equipment Used L 1 TB Reps/Minutes 7 reps Comments seated anchored at chest on L hor ab/ad Equipment Used towel, counter Reps/Minutes 4 x Comments then lateral R shld pain bicep curl Standing Exercise Name 3 hand position Side bilateral Equipment Used 1# DB Reps/Minutes 5x Comments cued sit/stand tall, head up row Standing Exercise Name Row & Extension Side bilateral Resistance L1 TB Reps/Minutes 8 row, 4 ext before R shld pain Comments cues body positioning arms straight posterior capsul stretch Standing Exercise Name elodia- Dr GABRIEL Side right Resistance LUE support RUE Reps/Minutes 2x 8 sec elke Comments only small motion elke pnfree Manual Therapy Treatment Consent Patient gave verbal consent for manual Yes treatment Soft Tissue Mobilization right shoulder Body Location anterior deltoid, bicep, pec Mobilization Type Rolling Intensity/Depth Moderate Body Position Sitting Comments gentle pressure with feedback PT-OP-R Modalities Start: 11/03/24 09:47 Freq: Status: Active Protocol: Document 11/25/24 11:32 SP (Rec: 11/25/24 12:22 SP [id number]) Hot Pack/Cold Pack Treatment Heat Location right shoulder Patient Position Hooklying Patient Tolerance Good PT-OP-T Assessment and Plan Start: 11/03/24 09:47 Freq: Status: Active Protocol: Document 11/25/24 11:32 SP (Rec: 11/25/24 12:22 SP [id number]) Physical Therapy Assessment Goals 4 Impairment No HEP Impairment Decreased strength left ankle DF/PF as compared to the right side Short Term Goal (STG) Patient to be instructed in HEP for purposes of right shoulder ROM and strengthening and postural correction STG Duration 12/24/24 Manager Utilization Goal (LTG) Patient will be independent and compliant with HEP and demonstrate right shoulder ROM WFL and strength at least 4/5 in available ROM LTG Duration 02/01/25 3 Impairment pain as high as 8/10 right shoulder Impairment Serenity is limited to walking 1-2 blocks with SPC at this time Short Term Goal (STG) Decrease pain to no greater than 4/10 with all usual activities 11/25/24: when reaches out to R side with weight has pain but no pain AROM. Has pain 5/10 R shld pain with weakeness hard midrange taking a light 2/5 wt down from OH. STG Duration 12/24/24 progressing 11/25/24 Manager Utilization Goal (LTG) Decrease pain to no greater than 2/10 with all usual activities LTG Duration 02/01/25 2 Impairment Quickdash UE disability score 75% Impairment scar tissue restrictions on both the dorsal and plantar aspects of the great toe on the left causing reports of discomfort rated 2/10 with standing and walking Short Term Goal (STG) Decrease Quickdash score to no greater than 50% as measure of improved right UE function STG Duration 12/24/24 Manager Utilization Goal (LTG) Decrease score to no greater than 25% as measure of improved right UE function LTG Duration 02/01/25 activity tolerance Impairment unable to reach overhead, out to side, behind her back, unable to drive Impairment lower extremity functional scale (LEFS) 34 Intermediate Goal (LTG) Patient will demonstrate improvement in use of right UE sufficient to allow her star comb her hair, feed herself, perform toileting, and drive short distances using right UE 11/25/24: progression: can drive better allows R arm help in 4-6 o'clock, can reach behind back approx T10 now, challenge tiring feeding self reps then pain, She can comb hair now with R, wipes back to front with RUE (normal activity performance) discussed trial front to back better hygenic. LTG Duration 02/01/25 progressing 11/25/24 Assessment Summary Assessment Pt had increased irritation today with R shld, initially assessed reach OH for goal progression trial capabilities . Decreased reps tolerated with ther ex more irritation ER and FF limited today tolerant range, cues for scap set awareness improved reduction pain. Manual supported little less soreness . MHP end tx helped pain/ soreness reduction further. Discussed continue MHP < 20 min support. Physical Therapy Plan Frequency and Duration Frequency of Treatment 2x/Week Duration of treatment (weeks) 8 Plan of Care Start Date 11/03/24 Plan of Care End Date 01/01/25 Therapeutic Interventions Therapeutic Interventions Home Exercise Program,Manual Therapy,Patient/Caregiver Education,Self-Care/Home Management,Soft Tissue Mobilization,Taping, Therapeutic Activities, Therapeutic Exercises Modalities Cold Pack/Ice Massage,Electric Stimulation,Hot Packs, Infrared Therapy,Iontophoresis ,Ultrasound Next Visit Focus/Plan Next Note Type Treatment Note Next Visit Plan Continue ther ex for gentle shoulder ROM and strengthening , postural correction. Modalities and manual therapy PRN
--- NOTE | 2024-11-30 08:15 | PT.OTN ---
Current Diagnoses Other specific arthropathies, not elsewhere classified, right shoulder (11/30/24) Impingement syndrome of right shoulder (11/30/24) Strain of other muscles, fascia and tendons at shoulder and upper arm level, right arm, initial encounter (11/30/24) Physical Therapy Treatment Note PT-OP-A Visit Information Start: 11/03/24 09:47 Freq: Status: Active Protocol: Document 11/30/24 07:31 SP (Rec: 11/30/24 08:16 SP [id number]) Out-Patient Physical Therapy Visit Information Visit Information Visit Type Treatment Note Visit Start Time 07:31 Visit Stop Time 08:15 Visit Number 7 Number of BILLET SHEARER Visits 3 Evaluation Information Evaluation Date 11/03/24 PT-OP-B Current Condition Start: 11/03/24 09:47 Freq: Status: Active Protocol: Document 11/18/24 08:15 SAK (Rec: 11/18/24 09:02 SAK [id number]) Current Condition History of Current Condition Onset Date 09/11/24 Current Complaints right shoulder pain History of Current Condition Fell while visiting sister in [place]; tripped over curb landed on right shoulder. x- ray negative. MRI showed RC tear Saw Dr. Hernández, now going to see Dr. Villalta November 29. Hasn't done any ice or heat. Takes Ibuprofen and Acetaminophen a couple times a day. Pain as high as 8 /10. Unable to reach overhead , out to the side, or behind her back. Can't drive. Has history prior right shoulder pain due to a couple prior falls with RC tears. No surgeries Prior Treatments and Tests 1. Full-thickness rupture of supraspinatus and infraspinatus at their insertions on humeral head with up to 3.7 cm medial retraction of torn tendon fibers to the level of acromioclavicular joint. Mild -to-moderate supraspinatus muscle atrophy and mild infraspinatus muscle atrophy. 2. Low to moderate grade intrasubstance partial- thickness tear involving distal subscapularis. 3. Superior migration of humeral head in relation to glenoid. [id number] acromioclavicular joint osteoarthritis. No acute fracture or dislocation. 4. Suggestion of superior anterior glenoid labral tear. 5. Low-grade partial-thickness tear involving proximal long head of biceps. PT-OP-C Subjective Start: 11/03/24 09:47 Freq: Status: Active Protocol: Document 11/30/24 07:31 SP (Rec: 11/30/24 08:16 SP [id number]) OP-PT Subjective Patient Comments Patient Comments Pt reports want to focus on most important HEP, takes her 20 min to do all exercises daily. Also which strengthens bicep & tricep. PT-OP-F Manual Assessment Start: 11/03/24 09:47 Freq: Status: Active Protocol: Document 11/03/24 09:50 SAK (Rec: 11/03/24 15:17 SAK [id number]) Manual Assessments Joint Mobility Assessment Joint Mobility Assessment poorly tolerated right shoulder PT-OP-H Neuro Start: 11/03/24 09:47 Freq: Status: Active Protocol: Document 11/03/24 09:50 SAK (Rec: 11/03/24 15:17 SAK [id number]) Sensation Evaluation Gross Sensation Gross Sensation WNL PT-OP-J Posture/Palpation/Skin Start: 11/03/24 09:47 Freq: Status: Active Protocol: Document 11/03/24 09:50 SAK (Rec: 11/03/24 15:17 SAK [id number]) Posture Evaluation Position Sitting Head/C-Spine Posture C-Spine Flattened T-Spine Posture Increased Kyphosis Scapula Posture (L) Protracted,(R) Protracted Arm Posture (L) Internally Rotated,(R) Internally Rotated Palpation Assessment Location right [place] Palpation Findings Soft Tissue Tightness,Muscle Guarding rc insertion Palpation Location R Palpation Findings Muscle Guarding,Tenderness PT-OP-K Range of Motion Start: 11/03/24 09:47 Freq: Status: Active Protocol: Document 11/03/24 09:50 SAK (Rec: 11/03/24 10:38 SAK [id number]) Cervical Spine Range of Motion Cervical Spine Active Comments mod decrease all motions Shoulder Goniometric Range of Motion Shoulder Right Shoulder ROM WFL No Testing Position Sitting Flexion 25 Extension 5 Abduction 40 External Rotation at 0 degrees Abduction 10 Internal Rotation Behind Back (text) anterior hip Left Flexion 145 Extension 10 Abduction 130 External Rotation at 0 degrees Abduction 50 Internal Rotation Behind Back (text) T6 PT-OP-L Special Tests Start: 11/03/24 09:47 Freq: Status: Active Protocol: Document 11/03/24 09:50 SAK (Rec: 11/03/24 15:17 SAK [id number]) Special Tests Shoulder Special Tests Drop Arm Rotator Cuff Test Results + R PT-OP-Q Treatments Start: 11/03/24 09:47 Freq: Status: Active Protocol: Document 11/30/24 07:31 SP (Rec: 11/30/24 08:16 SP [id number]) Therapeutic Exercises Standing Exercises Ys off wall Standing Exercise Name added to HEP /c HO Side bilateral Resistance AROM Reps/Minutes 5 reps Comments good form, no pain tricep ext Standing Exercise Name 1. TB 2. chair push ups- HEP Equipment Used 1> teal #2 TB (anchored at chest, not able put over doorway) Reps/Minutes 1. 10 x2 reps 2. 10 reps ( pauses every 3 reps) Comments seated anchored at chest on L counter slide Standing Exercise Name HABD, chest press, ER- updated Side right Equipment Used AROM> TB (sliding towel) anchor LUE ontable, single R each Reps/Minutes 10 reps each Comments keep elbow at side during ER bicep curl Standing Exercise Name 3 hand position (hammer, pron, sup)- HEP Side bilateral Equipment Used 1# DB Reps/Minutes 10x each Comments cued sit/stand tall, head up- tiring pron pos PT-OP-R Modalities Start: 11/03/24 09:47 Freq: Status: Active Protocol: Document 11/25/24 11:32 SP (Rec: 11/25/24 12:22 SP [id number]) Hot Pack/Cold Pack Treatment Heat Location right shoulder Patient Position Hooklying Patient Tolerance Good PT-OP-T Assessment and Plan Start: 11/03/24 09:47 Freq: Status: Active Protocol: Document 11/30/24 07:31 SP (Rec: 11/30/24 08:16 SP [id number]) Physical Therapy Assessment Goals 4 Impairment No HEP Impairment Decreased strength left ankle DF/PF as compared to the right side Short Term Goal (STG) Patient to be instructed in HEP for purposes of right shoulder ROM and strengthening and postural correction STG Duration 12/24/24 Laundry Routeman Goal (LTG) Patient will be independent and compliant with HEP and demonstrate right shoulder ROM WFL and strength at least 4/5 in available ROM LTG Duration 02/01/25 3 Impairment pain as high as 8/10 right shoulder Impairment Serenity is limited to walking 1-2 blocks with SPC at this time Short Term Goal (STG) Decrease pain to no greater than 4/10 with all usual activities 11/25/24: when reaches out to R side with weight has pain but no pain AROM. Has pain 5/10 R shld pain with weakeness hard midrange taking a light 2/5 wt down from [place]. STG Duration 12/24/24 progressing 11/25/24 Jail Goal (LTG) Decrease pain to no greater than 2/10 with all usual activities LTG Duration 02/01/25 2 Impairment Quickdash UE disability score 75% Impairment scar tissue restrictions on both the dorsal and plantar aspects of the great toe on the left causing reports of discomfort rated 2/10 with standing and walking Short Term Goal (STG) Decrease Quickdash score to no greater than 50% as measure of improved right UE function STG Duration 12/24/24 Laundry Routeman Goal (LTG) Decrease score to no greater than 25% as measure of improved right UE function LTG Duration 02/01/25 activity tolerance Impairment unable to reach overhead, out to side, behind her back, unable to drive Impairment lower extremity functional scale (LEFS) 34 Laundry Routeman Goal (LTG) Patient will demonstrate improvement in use of right UE sufficient to allow her star comb her hair, feed herself, perform toileting, and drive short distances using right UE 11/25/24: progression: can drive better allows R arm help in 4-6 o'clock, can reach behind back approx T10 now, challenge tiring feeding self reps then pain, She can comb hair now with R, wipes back to front with RUE (normal activity performance) discussed trial front to back better hygenic. LTG Duration 02/01/25 progressing 11/25/24 Assessment Summary Assessment Pt good feedback response to progression to increased resistance to individual table slide, tricep ext and added Ys off wall AROM for improve Over head ROM with contact wall at this time to support LT and rhomboid engagement. Future tx: consider condense HEP if pt is willing. Physical Therapy Plan Frequency and Duration Frequency of Treatment 2x/Week Duration of treatment (weeks) 8 Plan of Care Start Date 11/03/24 Plan of Care End Date 01/01/25 Therapeutic Interventions Therapeutic Interventions Home Exercise Program,Manual Therapy,Patient/Caregiver Education,Self-Care/Home Management,Soft Tissue Mobilization,Taping, Therapeutic Activities, Therapeutic Exercises Modalities Cold Pack/Ice Massage,Electric Stimulation,Hot Packs, Infrared Therapy,Iontophoresis ,Ultrasound Next Visit Focus/Plan Next Note Type Treatment Note Next Visit Plan Consider condense HEP if pt is willing. Continue ther ex for gentle shoulder ROM and strengthening, postural correction. Modalities and manual therapy PRN
--- NOTE | 2024-12-03 12:16 | PT.OTN ---
Current Diagnoses Other specific arthropathies, not elsewhere classified, right shoulder (12/03/24) Impingement syndrome of right shoulder (12/03/24) Strain of other muscles, fascia and tendons at shoulder and upper arm level, right arm, initial encounter (12/03/24) Physical Therapy Treatment Note PT-OP-A Visit Information Start: 11/03/24 09:47 Freq: Status: Active Protocol: Document 12/03/24 11:36 SP (Rec: 12/03/24 12:24 SP [id number]) Out-Patient Physical Therapy Visit Information Visit Information Visit Type Treatment Note Visit Start Time 11:36 Visit Stop Time 12:16 Visit Number 8 Number of VOLCANOLOGY PROFESSOR Visits 4 Evaluation Information Evaluation Date 11/03/24 PT-OP-B Current Condition Start: 11/03/24 09:47 Freq: Status: Active Protocol: Document 11/18/24 08:15 SAK (Rec: 11/18/24 09:02 SAK [id number]) Current Condition History of Current Condition Onset Date 09/11/24 Current Complaints right shoulder pain History of Current Condition Fell while visiting sister in [place]; tripped over curb landed on right shoulder. x- ray negative. MRI showed RC tear Saw Dr. Hernández, now going to see Dr. Villalta November 29. Hasn't done any ice or heat. Takes Ibuprofen and Acetaminophen a couple times a day. Pain as high as 8 /10. Unable to reach overhead , out to the side, or behind her back. Can't drive. Has history prior right shoulder pain due to a couple prior falls with RC tears. No surgeries Prior Treatments and Tests 1. Full-thickness rupture of supraspinatus and infraspinatus at their insertions on humeral head with up to 3.7 cm medial retraction of torn tendon fibers to the level of acromioclavicular joint. Mild -to-moderate supraspinatus muscle atrophy and mild infraspinatus muscle atrophy. 2. Low to moderate grade intrasubstance partial- thickness tear involving distal subscapularis. 3. Superior migration of humeral head in relation to glenoid. [id number] acromioclavicular joint osteoarthritis. No acute fracture or dislocation. 4. Suggestion of superior anterior glenoid labral tear. 5. Low-grade partial-thickness tear involving proximal long head of biceps. PT-OP-C Subjective Start: 11/03/24 09:47 Freq: Status: Active Protocol: Document 12/03/24 11:36 SP (Rec: 12/03/24 12:24 SP [id number]) OP-PT Subjective Patient Comments Patient Comments Pt reports her R bicep sore after performed HEP yesterday. Didnt' try Ys since last tx. She reports R shld can help driving steering wheel better but not confident going on highway yet. PT-OP-F Manual Assessment Start: 11/03/24 09:47 Freq: Status: Active Protocol: Document 11/03/24 09:50 SAK (Rec: 11/03/24 15:17 SAK [id number]) Manual Assessments Joint Mobility Assessment Joint Mobility Assessment poorly tolerated right shoulder PT-OP-H Neuro Start: 11/03/24 09:47 Freq: Status: Active Protocol: Document 11/03/24 09:50 SAK (Rec: 11/03/24 15:17 SAK [id number]) Sensation Evaluation Gross Sensation Gross Sensation WNL PT-OP-J Posture/Palpation/Skin Start: 11/03/24 09:47 Freq: Status: Active Protocol: Document 11/03/24 09:50 SAK (Rec: 11/03/24 15:17 SAK [id number]) Posture Evaluation Position Sitting Head/C-Spine Posture C-Spine Flattened T-Spine Posture Increased Kyphosis Scapula Posture (L) Protracted,(R) Protracted Arm Posture (L) Internally Rotated,(R) Internally Rotated Palpation Assessment Location right [place] Palpation Findings Soft Tissue Tightness,Muscle Guarding rc insertion Palpation Location R Palpation Findings Muscle Guarding,Tenderness PT-OP-K Range of Motion Start: 11/03/24 09:47 Freq: Status: Active Protocol: Document 11/03/24 09:50 SAK (Rec: 11/03/24 10:38 SAK [id number]) Cervical Spine Range of Motion Cervical Spine Active Comments mod decrease all motions Shoulder Goniometric Range of Motion Shoulder Right Shoulder ROM WFL No Testing Position Sitting Flexion 25 Extension 5 Abduction 40 External Rotation at 0 degrees Abduction 10 Internal Rotation Behind Back (text) anterior hip Left Flexion 145 Extension 10 Abduction 130 External Rotation at 0 degrees Abduction 50 Internal Rotation Behind Back (text) T6 PT-OP-L Special Tests Start: 11/03/24 09:47 Freq: Status: Active Protocol: Document 11/03/24 09:50 SAK (Rec: 11/03/24 15:17 SAK [id number]) Special Tests Shoulder Special Tests Drop Arm Rotator Cuff Test Results + R PT-OP-Q Treatments Start: 11/03/24 09:47 Freq: Status: Active Protocol: Document 12/03/24 11:36 SP (Rec: 12/03/24 12:24 SP [id number]) Therapeutic Exercises Supine Exercises W pec stretch Supine Exercise Name Humeral ER (90/90- W) Pec stretch: added to HEp /c HO Side bilateral Equipment Used 2 pillows under head. Reps/Minutes 2 reps 10 SH Comments good form, cued breath pnfree range Standing Exercises wall push up Standing Exercise Name reviewed from 10/14 HO given Side bilateral Reps/Minutes 5 reps Comments cued head up, allow shoulder blades glide Ys off wall Standing Exercise Name reviewed Side bilateral Resistance AROM Reps/Minutes 5 reps x2 sets Hold 2 sec Comments good form, little tension R ant deltoid/bicep counter slide Standing Exercise Name HABD, chest press, ER- updated Side right Equipment Used AROM> TB (sliding towel) anchor LUE ontable, single R each Reps/Minutes 10 reps each Comments scapular glide fwd, tall posture scap glide HABD and ER - tension ant deloid Manual Therapy Treatment Consent Patient gave verbal consent for manual Yes treatment Soft Tissue Mobilization right shoulder Body Location anterior deltoid, bicep, pec Mobilization Type Rolling Intensity/Depth Moderate Body Position SL & supine Comments gentle pressure with feedback Joint Mobilizations R GH Jt Joint R posterior glide Direction PA Comments PROM/ AROM ER PT-OP-R Modalities Start: 11/03/24 09:47 Freq: Status: Active Protocol: Document 11/25/24 11:32 SP (Rec: 11/25/24 12:22 SP [id number]) Hot Pack/Cold Pack Treatment Heat Location right shoulder Patient Position Hooklying Patient Tolerance Good PT-OP-T Assessment and Plan Start: 11/03/24 09:47 Freq: Status: Active Protocol: Document 12/03/24 11:36 SP (Rec: 12/03/24 12:24 SP [id number]) Physical Therapy Assessment Goals 4 Impairment No HEP Impairment Decreased strength left ankle DF/PF as compared to the right side Short Term Goal (STG) Patient to be instructed in HEP for purposes of right shoulder ROM and strengthening and postural correction STG Duration 12/24/24 Mcfp Goal (LTG) Patient will be independent and compliant with HEP and demonstrate right shoulder ROM WFL and strength at least 4/5 in available ROM LTG Duration 02/01/25 3 Impairment pain as high as 8/10 right shoulder Impairment Serenity is limited to walking 1-2 blocks with SPC at this time Short Term Goal (STG) Decrease pain to no greater than 4/10 with all usual activities 11/25/24: when reaches out to R side with weight has pain but no pain AROM. Has pain 5/10 R shld pain with weakeness hard midrange taking a light 2/5 wt down from [place]. STG Duration 12/24/24 progressing 11/25/24 Mcfp Goal (LTG) Decrease pain to no greater than 2/10 with all usual activities LTG Duration 02/01/25 2 Impairment Quickdash UE disability score 75% Impairment scar tissue restrictions on both the dorsal and plantar aspects of the great toe on the left causing reports of discomfort rated 2/10 with standing and walking Short Term Goal (STG) Decrease Quickdash score to no greater than 50% as measure of improved right UE function STG Duration 12/24/24 Telemedicine Physician Goal (LTG) Decrease score to no greater than 25% as measure of improved right UE function LTG Duration 02/01/25 activity tolerance Impairment unable to reach overhead, out to side, behind her back, unable to drive Impairment lower extremity functional scale (LEFS) 34 Telemedicine Physician Goal (LTG) Patient will demonstrate improvement in use of right UE sufficient to allow her star comb her hair, feed herself, perform toileting, and drive short distances using right UE 11/25/24: progression: can drive better allows R arm help in 4-6 o'clock, can reach behind back approx T10 now, challenge tiring feeding self reps then pain, She can comb hair now with R, wipes back to front with RUE (normal activity performance) discussed trial front to back better hygenic. LTG Duration 02/01/25 progressing 11/25/24 Assessment Summary Assessment Pt reported anterior deltoid discomfort during resisted ex today, some improvement with rhomboid fac and head up CS retraction neutral can. Decreased tension and improved R humeral head post glide during manual and added supine humeral ER with emphasis on pec stretch and postural suppport benefits can have. Physical Therapy Plan Frequency and Duration Frequency of Treatment 2x/Week Duration of treatment (weeks) 8 Plan of Care Start Date 11/03/24 Plan of Care End Date 01/01/25 Therapeutic Interventions Therapeutic Interventions Home Exercise Program,Manual Therapy,Patient/Caregiver Education,Self-Care/Home Management,Soft Tissue Mobilization,Taping, Therapeutic Activities, Therapeutic Exercises Modalities Cold Pack/Ice Massage,Electric Stimulation,Hot Packs, Infrared Therapy,Iontophoresis ,Ultrasound Next Visit Focus/Plan Next Note Type Treatment Note Next Visit Plan Next tx: Consider condense HEP if pt is willing. Continue ther ex for gentle shoulder ROM and strengthening, postural correction. Modalities and manual therapy PRN
--- NOTE | 2024-12-07 17:23 | PT.OTN ---
Current Diagnoses Other specific arthropathies, not elsewhere classified, right shoulder (12/07/24) Impingement syndrome of right shoulder (12/07/24) Strain of other muscles, fascia and tendons at shoulder and upper arm level, right arm, initial encounter (12/07/24) Physical Therapy Treatment Note PT-OP-A Visit Information Start: 11/03/24 09:47 Freq: Status: Active Protocol: Document 12/07/24 09:48 SAK (Rec: 12/07/24 09:46 SAK [id number]) Out-Patient Physical Therapy Visit Information Visit Information Visit Type Treatment Note Visit Start Time 09:45 Visit Stop Time 12:16 Visit Number 9 Number of CLAIM ADMINISTRATOR Visits 0 Evaluation Information Evaluation Date 11/03/24 PT-OP-B Current Condition Start: 11/03/24 09:47 Freq: Status: Active Protocol: Document 12/07/24 09:48 SAK (Rec: 12/07/24 09:46 SAK [id number]) Current Condition History of Current Condition Onset Date 09/11/24 Current Complaints right shoulder pain History of Current Condition Fell while visiting sister in [place]; tripped over curb landed on right shoulder. x- ray negative. MRI showed RC tear Saw Dr. Hernández, now going to see Dr. Villalta November 29. Hasn't done any ice or heat. Takes Ibuprofen and Acetaminophen a couple times a day. Pain as high as 8 /10. Unable to reach overhead , out to the side, or behind her back. Can't drive. Has history prior right shoulder pain due to a couple prior falls with RC tears. No surgeries Prior Treatments and Tests 1. Full-thickness rupture of supraspinatus and infraspinatus at their insertions on humeral head with up to 3.7 cm medial retraction of torn tendon fibers to the level of acromioclavicular joint. Mild -to-moderate supraspinatus muscle atrophy and mild infraspinatus muscle atrophy. 2. Low to moderate grade intrasubstance partial- thickness tear involving distal subscapularis. 3. Superior migration of humeral head in relation to glenoid. [id number] acromioclavicular joint osteoarthritis. No acute fracture or dislocation. 4. Suggestion of superior anterior glenoid labral tear. 5. Low-grade partial-thickness tear involving proximal long head of biceps. PT-OP-C Subjective Start: 11/03/24 09:47 Freq: Status: Active Protocol: Document 12/07/24 09:48 SAK (Rec: 12/07/24 10:33 SAK [id number]) OP-PT Subjective Patient Comments Patient Comments Thinks Cortisone shot is wearing off, some aching. Doing her exercises. Improved shoulder function PT-OP-F Manual Assessment Start: 11/03/24 09:47 Freq: Status: Active Protocol: Document 11/03/24 09:50 SAK (Rec: 11/03/24 15:17 SAK [id number]) Manual Assessments Joint Mobility Assessment Joint Mobility Assessment poorly tolerated right shoulder PT-OP-H Neuro Start: 11/03/24 09:47 Freq: Status: Active Protocol: Document 11/03/24 09:50 SAK (Rec: 11/03/24 15:17 SAK [id number]) Sensation Evaluation Gross Sensation Gross Sensation WNL PT-OP-J Posture/Palpation/Skin Start: 11/03/24 09:47 Freq: Status: Active Protocol: Document 11/03/24 09:50 SAK (Rec: 11/03/24 15:17 [facility] [id number]) Posture Evaluation Position Sitting Head/C-Spine Posture C-Spine Flattened T-Spine Posture Increased Kyphosis Scapula Posture (L) Protracted,(R) Protracted Arm Posture (L) Internally Rotated,(R) Internally Rotated Palpation Assessment Location right [place] Palpation Findings Soft Tissue Tightness,Muscle Guarding rc insertion Palpation Location R Palpation Findings Muscle Guarding,Tenderness PT-OP-K Range of Motion Start: 11/03/24 09:47 Freq: Status: Active Protocol: Document 11/03/24 09:50 SAK (Rec: 11/03/24 10:38 [facility] [id number]) Cervical Spine Range of Motion Cervical Spine Active Comments mod decrease all motions Shoulder Goniometric Range of Motion Shoulder Right Shoulder ROM WFL No Testing Position Sitting Flexion 25 Extension 5 Abduction 40 External Rotation at 0 degrees Abduction 10 Internal Rotation Behind Back (text) anterior hip Left Flexion 145 Extension 10 Abduction 130 External Rotation at 0 degrees Abduction 50 Internal Rotation Behind Back (text) T6 PT-OP-L Special Tests Start: 11/03/24 09:47 Freq: Status: Active Protocol: Document 11/03/24 09:50 SAK (Rec: 11/03/24 15:17 [facility] [id number]) Special Tests Shoulder Special Tests Drop Arm Rotator Cuff Test Results + R PT-OP-Q Treatments Start: 11/03/24 09:47 Freq: Status: Active Protocol: Document 12/07/24 09:48 SAK (Rec: 12/07/24 10:33 [facility] [id number]) Therapeutic Exercises Supine Exercises T pec stretch Resistance zachery Reps/Minutes 30sec x 2 Comments cues for pain-free ROM W pec stretch Supine Exercise Name Humeral ER (90/90- W) Pec stretch Side bilateral Equipment Used 2 pillows under head. Reps/Minutes 2 reps 10 SH Comments good form, cued breath pnfree range Sitting Exercises Neck stretch Side right Resistance L assist as needed. Reps/Minutes 5 sec hold x 2 pulleys Sitting Exercise Name flexion and scaption Equipment Used Pulleys Reps/Minutes 10x Comments cues for painfree, plane of scapula for scaption (cue no pinching) scapular squeeze Reps/Minutes 10x5 Standing Exercises wall push up Standing Exercise Name reviewed; cues to keep shoulders down Side bilateral Reps/Minutes 5 reps Comments cued head up, allow shoulder blades glide Ys off wall Standing Exercise Name reviewed Side bilateral Resistance AROM Reps/Minutes 5 reps x2 sets Hold 3 sec Comments good form, little tension R ant deltoid/bicep counter slide Standing Exercise Name HABD, chest press, ER- updated Side right Equipment Used AROM> TB (sliding towel) anchor LUE ontable, single R each Reps/Minutes 10 reps each Comments scapular glide fwd, tall posture scap glide HABD and ER - tension ant deloid Manual Therapy Treatment Consent Patient gave verbal consent for manual Yes treatment Soft Tissue Mobilization right shoulder Body Location anterior deltoid, bicep, pec Mobilization Type Rolling Intensity/Depth Moderate Body Position SL & supine Comments gentle pressure with feedback Joint Mobilizations R GH Jt Joint R posterior glide Direction PA Comments PROM/ AROM ER PT-OP-R Modalities Start: 11/03/24 09:47 Freq: Status: Active Protocol: Document 11/25/24 11:32 SP (Rec: 11/25/24 12:22 SP [id number]) Hot Pack/Cold Pack Treatment Heat Location right shoulder Patient Position Hooklying Patient Tolerance Good PT-OP-T Assessment and Plan Start: 11/03/24 09:47 Freq: Status: Active Protocol: Document 12/07/24 09:48 [facility] (Rec: 12/07/24 09:46 [facility] [id number]) Physical Therapy Assessment Goals 4 Impairment No HEP Impairment Decreased strength left ankle DF/PF as compared to the right side Short Term Goal (STG) Patient to be instructed in HEP for purposes of right shoulder ROM and strengthening and postural correction STG Duration 12/24/24 Donor Recruitment Manager Goal (LTG) Patient will be independent and compliant with HEP and demonstrate right shoulder ROM WFL and strength at least 4/5 in available ROM LTG Duration 02/01/25 3 Impairment pain as high as 8/10 right shoulder Impairment Serenity is limited to walking 1-2 blocks with SPC at this time Short Term Goal (STG) Decrease pain to no greater than 4/10 with all usual activities 11/25/24: when reaches out to R side with weight has pain but no pain AROM. Has pain 5/10 R shld pain with weakeness hard midrange taking a light 2/5 wt down from [place]. STG Duration 12/24/24 progressing 11/25/24 Donor Recruitment Manager Goal (LTG) Decrease pain to no greater than 2/10 with all usual activities LTG Duration 02/01/25 2 Impairment Quickdash UE disability score 75% Impairment scar tissue restrictions on both the dorsal and plantar aspects of the great toe on the left causing reports of discomfort rated 2/10 with standing and walking Short Term Goal (STG) Decrease Quickdash score to no greater than 50% as measure of improved right UE function STG Duration 12/24/24 Half-Way Goal (LTG) Decrease score to no greater than 25% as measure of improved right UE function LTG Duration 02/01/25 activity tolerance Impairment unable to reach overhead, out to side, behind her back, unable to drive Impairment lower extremity functional scale (LEFS) 34 Half-Way Goal (LTG) Patient will demonstrate improvement in use of right UE sufficient to allow her star comb her hair, feed herself, perform toileting, and drive short distances using right UE 11/25/24: progression: can drive better allows R arm help in 4-6 o'clock, can reach behind back approx T10 now, challenge tiring feeding self reps then pain, She can comb hair now with R, wipes back to front with RUE (normal activity performance) discussed trial front to back better hygenic. LTG Duration 02/01/25 progressing 11/25/24 Assessment Summary Assessment Review HEP with cues for technique and additional written instructions on HEP HO for improved effectiveness, patient attentive to details and demonstrated improved performance after review. At this time does not want to shorten HEP, reports feeling helpful and doesn't want to stop. PT urged pain-free ROM and intensity. Physical Therapy Plan Frequency and Duration Frequency of Treatment 2x/Week Duration of treatment (weeks) 8 Plan of Care Start Date 11/03/24 Plan of Care End Date 01/01/25 Therapeutic Interventions Therapeutic Interventions Home Exercise Program,Manual Therapy,Patient/Caregiver Education,Self-Care/Home Management,Soft Tissue Mobilization,Taping, Therapeutic Activities, Therapeutic Exercises Modalities Cold Pack/Ice Massage,Electric Stimulation,Hot Packs, Infrared Therapy,Iontophoresis ,Ultrasound Next Visit Focus/Plan Next Note Type Treatment Note
--- NOTE | 2024-12-09 16:40 | PT.OTN ---
Current Diagnoses Other specific arthropathies, not elsewhere classified, right shoulder (12/09/24) Impingement syndrome of right shoulder (12/09/24) Strain of other muscles, fascia and tendons at shoulder and upper arm level, right arm, initial encounter (12/09/24) Physical Therapy Treatment Note PT-OP-A Visit Information Start: 11/03/24 09:47 Freq: Status: Active Protocol: Document 12/09/24 09:47 SAK (Rec: 12/09/24 10:43 [facility] [id number]) Out-Patient Physical Therapy Visit Information Visit Information Visit Type Treatment Note Visit Start Time 09:45 Visit Stop Time 12:16 Visit Number 10 Number of COMPLIANCE MONITOR Visits 0 Evaluation Information Evaluation Date 11/03/24 PT-OP-B Current Condition Start: 11/03/24 09:47 Freq: Status: Active Protocol: Document 12/09/24 09:47 SAK (Rec: 12/09/24 10:43 SAK [id number]) Current Condition History of Current Condition Onset Date 09/11/24 Current Complaints right shoulder pain History of Current Condition Fell while visiting sister in [place]; tripped over curb landed on right shoulder. x- ray negative. MRI showed RC tear Saw Dr. Hernández, now going to see Dr. Villalta November 29. Hasn't done any ice or heat. Takes Ibuprofen and Acetaminophen a couple times a day. Pain as high as 8 /10. Unable to reach overhead , out to the side, or behind her back. Can't drive. Has history prior right shoulder pain due to a couple prior falls with RC tears. No surgeries Prior Treatments and Tests 1. Full-thickness rupture of supraspinatus and infraspinatus at their insertions on humeral head with up to 3.7 cm medial retraction of torn tendon fibers to the level of acromioclavicular joint. Mild -to-moderate supraspinatus muscle atrophy and mild infraspinatus muscle atrophy. 2. Low to moderate grade intrasubstance partial- thickness tear involving distal subscapularis. 3. Superior migration of humeral head in relation to glenoid. [id number]-fw-hyahexll acromioclavicular joint osteoarthritis. No acute fracture or dislocation. 4. Suggestion of superior anterior glenoid labral tear. 5. Low-grade partial-thickness tear involving proximal long head of biceps. PT-OP-C Subjective Start: 11/03/24 09:47 Freq: Status: Active Protocol: Document 12/09/24 09:47 SAK (Rec: 12/09/24 10:43 SAK [id number]) OP-PT Subjective Patient Comments Patient Comments Was bad yesterday, did not do her exercises, needed a day off. Min pain, can't take the weight of more than 1 plate. PT-OP-F Manual Assessment Start: 11/03/24 09:47 Freq: Status: Active Protocol: Document 11/03/24 09:50 SAK (Rec: 11/03/24 15:17 SAK [id number]) Manual Assessments Joint Mobility Assessment Joint Mobility Assessment poorly tolerated right shoulder PT-OP-H Neuro Start: 11/03/24 09:47 Freq: Status: Active Protocol: Document 11/03/24 09:50 SAK (Rec: 11/03/24 15:17 SAK [id number]) Sensation Evaluation Gross Sensation Gross Sensation WNL PT-OP-J Posture/Palpation/Skin Start: 11/03/24 09:47 Freq: Status: Active Protocol: Document 11/03/24 09:50 SAK (Rec: 11/03/24 15:17 SAK [id number]) Posture Evaluation Position Sitting Head/C-Spine Posture C-Spine Flattened T-Spine Posture Increased Kyphosis Scapula Posture (L) Protracted,(R) Protracted Arm Posture (L) Internally Rotated,(R) Internally Rotated Palpation Assessment Location right [place] Palpation Findings Soft Tissue Tightness,Muscle Guarding rc insertion Palpation Location R Palpation Findings Muscle Guarding,Tenderness PT-OP-K Range of Motion Start: 11/03/24 09:47 Freq: Status: Active Protocol: Document 11/03/24 09:50 SAK (Rec: 11/03/24 10:38 [facility] [id number]) Cervical Spine Range of Motion Cervical Spine Active Comments mod decrease all motions Shoulder Goniometric Range of Motion Shoulder Right Shoulder ROM WFL No Testing Position Sitting Flexion 25 Extension 5 Abduction 40 External Rotation at 0 degrees Abduction 10 Internal Rotation Behind Back (text) anterior hip Left Flexion 145 Extension 10 Abduction 130 External Rotation at 0 degrees Abduction 50 Internal Rotation Behind Back (text) T6 PT-OP-L Special Tests Start: 11/03/24 09:47 Freq: Status: Active Protocol: Document 11/03/24 09:50 SAK (Rec: 11/03/24 15:17 SAK [id number]) Special Tests Shoulder Special Tests Drop Arm Rotator Cuff Test Results + R PT-OP-Q Treatments Start: 11/03/24 09:47 Freq: Status: Active Protocol: Document 12/09/24 09:47 SAK (Rec: 12/09/24 10:43 SAK [id number]) Therapeutic Exercises Supine Exercises Tricep ext Equipment Used 1# Reps/Minutes 10x Comments left UE stabilizing right T pec stretch Resistance zachery Reps/Minutes 30sec x 2 Comments cues for pain-free ROM W pec stretch Supine Exercise Name Humeral ER (90/90- W) Pec stretch Side bilateral Equipment Used 2 pillows under head. Reps/Minutes 2 reps 10 SH Comments good form, cued breath pnfree range chest press Reps/Minutes 10x Comments cane shoulder flex Equipment Used wand Reps/Minutes 10x Comments 30-160 Sitting Exercises Neck stretch Side right Resistance L assist as needed. Reps/Minutes 5 sec hold x 2 pulleys Sitting Exercise Name flexion and scaption Equipment Used Pulleys Reps/Minutes 10x Comments cues for painfree, plane of scapula for scaption (cue no pinching) Standing Exercises overhead press Equipment Used 1# zachery Reps/Minutes 10x wall posture Reps/Minutes 3 min Comments cues for start abdominals, then sh bl, sh. chin tuck shoulder isometrics Standing Exercise Name flex,ext,ab,ad,IR,ER,ad review Equipment Used towel, wall Reps/Minutes 5 reps 10 SH Comments cues for posture, core set prior to ex Manual Therapy Treatment Consent Patient gave verbal consent for manual Yes treatment Soft Tissue Mobilization right shoulder Body Location anterior deltoid, bicep, pec Mobilization Type Rolling Intensity/Depth Moderate Body Position SL & supine Comments gentle pressure with feedback PT-OP-R Modalities Start: 11/03/24 09:47 Freq: Status: Active Protocol: Document 11/25/24 11:32 SP (Rec: 11/25/24 12:22 SP [id number]) Hot Pack/Cold Pack Treatment Heat Location right shoulder Patient Position Hooklying Patient Tolerance Good PT-OP-T Assessment and Plan Start: 11/03/24 09:47 Freq: Status: Active Protocol: Document 12/09/24 09:47 SAK (Rec: 12/09/24 10:43 SAK [id number]) Physical Therapy Assessment Goals 4 Impairment No HEP Impairment Decreased strength right shoulder compared to the rleft side Short Term Goal (STG) Patient to be instructed in HEP for purposes of right shoulder ROM and strengthening and postural correction 12/09/24: goal met, ongoing progression STG Duration ongoing Penitentiary Goal (LTG) Patient will be independent and compliant with HEP and demonstrate right shoulder ROM WFL and strength at least 4/5 in available ROM LTG Duration 02/01/25 3 Impairment pain as high as 8/10 right shoulder Impairment Serenity is limited to walking 1-2 blocks with SPC at this time Short Term Goal (STG) Decrease pain to no greater than 4/10 with all usual activities 11/25/24: when reaches out to R side with weight has pain but no pain AROM. Has pain 5/10 R shld pain with weakeness hard midrange taking a light 2/5 wt down from [place]. 12/09/24: STG Duration 12/24/24 progressing 11/25/24 Administrator Pesticide Goal (LTG) Decrease pain to no greater than 2/10 with all usual activities LTG Duration 02/01/25 2 Impairment Quickdash UE disability score 75% Short Term Goal (STG) Decrease Quickdash score to no greater than 50% as measure of improved right UE function STG Duration 12/24/24 Penitentiary Goal (LTG) Decrease score to no greater than 25% as measure of improved right UE function LTG Duration 02/01/25 activity tolerance Impairment unable to reach overhead, out to side, behind her back, unable to drive Penitentiary Goal (LTG) Patient will demonstrate improvement in use of right UE sufficient to allow her star comb her hair, feed herself, perform toileting, and drive short distances using right UE 11/25/24: progression: can drive better allows R arm help in 4-6 o'clock, can reach behind back approx T10 now, challenge tiring feeding self reps then pain, She can comb hair now with R, wipes back to front with RUE (normal activity performance) discussed trial front to back better hygenic. 12/09/24: can comb hair, get one plate out of cupbord, unable more. LTG Duration 02/01/25 progressing 11/25/24 Assessment Summary Assessment Review isometrics with corrections to technique including posture and core stab cues. MMT and ROM testing reveal good progress as above. Weakest with sh aband ER. Patient wanting further focus strengthing; PROM and AAROM WFL. Trial overhead press with 1# . Physical Therapy Plan Frequency and Duration Frequency of Treatment 2x/Week Duration of treatment (weeks) 8 Plan of Care Start Date 11/03/24 Plan of Care End Date 01/01/25 Therapeutic Interventions Therapeutic Interventions Home Exercise Program,Manual Therapy,Patient/Caregiver Education,Self-Care/Home Management,Soft Tissue Mobilization,Taping, Therapeutic Activities, Therapeutic Exercises Modalities Cold Pack/Ice Massage,Electric Stimulation,Hot Packs, Infrared Therapy,Iontophoresis ,Ultrasound Next Visit Focus/Plan Next Note Type Treatment Note Next Visit Plan Continue progression of HEP emphasis gentle strengthening with cues for fatigue not pain .
--- NOTE | 2024-12-09 17:01 | PT.OPPN ---
Current Diagnoses Other specific arthropathies, not elsewhere classified, right shoulder (12/09/24) Impingement syndrome of right shoulder (12/09/24) Strain of other muscles, fascia and tendons at shoulder and upper arm level, right arm, initial encounter (12/09/24) Physical Therapy Progress Note PT-OP-A Visit Information Start: 11/03/24 09:47 Freq: Status: Active Protocol: Document 12/09/24 09:47 SAK (Rec: 12/09/24 10:43 [facility] [id number]) Out-Patient Physical Therapy Visit Information Visit Information Visit Type Treatment Note Visit Start Time 09:45 Visit Stop Time 12:16 Visit Number 10 Number of TOE POUNDER Visits 0 Evaluation Information Evaluation Date 11/03/24 PT-OP-B Current Condition Start: 11/03/24 09:47 Freq: Status: Active Protocol: Document 12/09/24 09:47 SAK (Rec: 12/09/24 10:43 SAK [id number]) Current Condition History of Current Condition Onset Date 09/11/24 Current Complaints right shoulder pain History of Current Condition Fell while visiting sister in [place]; tripped over curb landed on right shoulder. x- ray negative. MRI showed RC tear Saw Dr. Hernández, now going to see Dr. Villalta November 29. Hasn't done any ice or heat. Takes Ibuprofen and Acetaminophen a couple times a day. Pain as high as 8 /10. Unable to reach overhead , out to the side, or behind her back. Can't drive. Has history prior right shoulder pain due to a couple prior falls with RC tears. No surgeries Prior Treatments and Tests 1. Full-thickness rupture of supraspinatus and infraspinatus at their insertions on humeral head with up to 3.7 cm medial retraction of torn tendon fibers to the level of acromioclavicular joint. Mild -to-moderate supraspinatus muscle atrophy and mild infraspinatus muscle atrophy. 2. Low to moderate grade intrasubstance partial- thickness tear involving distal subscapularis. 3. Superior migration of humeral head in relation to glenoid. [id number] acromioclavicular joint osteoarthritis. No acute fracture or dislocation. 4. Suggestion of superior anterior glenoid labral tear. 5. Low-grade partial-thickness tear involving proximal long head of biceps. PT-OP-C Subjective Start: 11/03/24 09:47 Freq: Status: Active Protocol: Document 12/09/24 09:47 SAK (Rec: 12/09/24 10:43 SAK [id number]) OP-PT Subjective Patient Comments Patient Comments Was bad yesterday, did not do her exercises, needed a day off. Min pain, can't take the weight of more than 1 plate. PT-OP-F Manual Assessment Start: 11/03/24 09:47 Freq: Status: Active Protocol: Document 11/03/24 09:50 SAK (Rec: 11/03/24 15:17 SAK [id number]) Manual Assessments Joint Mobility Assessment Joint Mobility Assessment poorly tolerated right shoulder PT-OP-H Neuro Start: 11/03/24 09:47 Freq: Status: Active Protocol: Document 11/03/24 09:50 SAK (Rec: 11/03/24 15:17 SAK [id number]) Sensation Evaluation Gross Sensation Gross Sensation WNL PT-OP-J Posture/Palpation/Skin Start: 11/03/24 09:47 Freq: Status: Active Protocol: Document 11/03/24 09:50 SAK (Rec: 11/03/24 15:17 SAK [id number]) Posture Evaluation Position Sitting Head/C-Spine Posture C-Spine Flattened T-Spine Posture Increased Kyphosis Scapula Posture (L) Protracted,(R) Protracted Arm Posture (L) Internally Rotated,(R) Internally Rotated Palpation Assessment Location right [place] Palpation Findings Soft Tissue Tightness,Muscle Guarding rc insertion Palpation Location R Palpation Findings Muscle Guarding,Tenderness PT-OP-K Range of Motion Start: 11/03/24 09:47 Freq: Status: Active Protocol: Document 11/03/24 09:50 SAK (Rec: 11/03/24 10:38 [facility] [id number]) Cervical Spine Range of Motion Cervical Spine Active Comments mod decrease all motions Shoulder Goniometric Range of Motion Shoulder Measured in Degrees Right Shoulder ROM WFL No Testing Position Sitting Flexion 25 Extension 5 Abduction 40 External Rotation at 0 degrees Abduction 10 Internal Rotation Behind Back (text) anterior hip Left Flexion 145 Extension 10 Abduction 130 External Rotation at 0 degrees Abduction 50 Internal Rotation Behind Back (text) T6 PT-OP-L Special Tests Start: 11/03/24 09:47 Freq: Status: Active Protocol: Document 11/03/24 09:50 SAK (Rec: 11/03/24 15:17 [facility] [id number]) Special Tests Shoulder Special Tests Drop Arm Rotator Cuff Test Results + R PT-OP-T Assessment and Plan Start: 11/03/24 09:47 Freq: Status: Active Protocol: Document 12/09/24 09:47 [facility] (Rec: 12/09/24 10:43 [facility] [id number]) Physical Therapy Assessment Goals 4 Impairment No HEP Impairment Decreased strength right shoulder compared to the rleft side Short Term Goal (STG) Patient to be instructed in HEP for purposes of right shoulder ROM and strengthening and postural correction 12/09/24: goal met, ongoing progression STG Duration goal met Ready To Wear Department Manager Goal (LTG) Patient will be independent and compliant with HEP and demonstrate right shoulder ROM WFL and strength at least 4/5 in available ROM LTG Duration 02/01/25 3 Impairment pain as high as 8/10 right shoulder Short Term Goal (STG) Decrease pain to no greater than 4/10 with all usual activities 11/25/24: when reaches out to R side with weight has pain but no pain AROM. Has pain 5/10 R shld pain with weakeness hard midrange taking a light 2/5 wt down from [place]. 12/09/24: 2-8/10, worst with holding weight out to side or overhead. STG Duration 12/24/24 progressing 11/25/24 Alf Goal (LTG) Decrease pain to no greater than 2/10 with all usual activities LTG Duration 02/01/25 2 Impairment Quickdash UE disability score 75% Short Term Goal (STG) Decrease Quickdash score to no greater than 50% as measure of improved right UE function 12/09/24: decreased to % STG Duration 12/24/24 Alf Goal (LTG) Decrease score to no greater than 25% as measure of improved right UE function LTG Duration 02/01/25 activity tolerance Impairment unable to reach overhead, out to side, behind her back, unable to drive Ready To Wear Department Manager Goal (LTG) Patient will demonstrate improvement in use of right UE sufficient to allow her star comb her hair, feed herself, perform toileting, and drive short distances using right UE 11/25/24: progression: can drive better allows R arm help in 4-6 o'clock, can reach behind back approx T10 now, challenge tiring feeding self reps then pain, She can comb hair now with R, wipes back to front with RUE (normal activity performance) discussed trial front to back better hygenic. 12/09/24: can comb hair, get one plate out of cupbord, unable more, self care when toileting still difficult but improved LTG Duration 02/01/25 Assessment Summary Assessment Good goal progress as noted above. Reviewed isometrics with corrections to technique including posture and core stab cues. MMT and ROM testing reveal good progress as above. Weakest with sh aband ER. Patient wanting further focus strengthing; PROM and AAROM WFL. Trial overhead press with 1# . Physical Therapy Plan Frequency and Duration Frequency of Treatment 2x/Week Duration of treatment (weeks) 8 Plan of Care Start Date 11/03/24 Plan of Care End Date 01/01/25 Therapeutic Interventions Therapeutic Interventions Home Exercise Program,Manual Therapy,Patient/Caregiver Education,Self-Care/Home Management,Soft Tissue Mobilization,Taping, Therapeutic Activities, Therapeutic Exercises Modalities Cold Pack/Ice Massage,Electric Stimulation,Hot Packs, Infrared Therapy,Iontophoresis ,Ultrasound Next Visit Focus/Plan Next Note Type Treatment Note Next Visit Plan Continue progression of HEP emphasis gentle strengthening with cues for fatigue not pain .
--- NOTE | 2024-12-15 14:59 | PT.OTN ---
Current Diagnoses Other specific arthropathies, not elsewhere classified, right shoulder (12/15/24) Impingement syndrome of right shoulder (12/15/24) Strain of other muscles, fascia and tendons at shoulder and upper arm level, right arm, initial encounter (12/15/24) Physical Therapy Treatment Note PT-OP-A Visit Information Start: 11/03/24 09:47 Freq: Status: Active Protocol: Document 12/15/24 08:15 SAK (Rec: 12/15/24 09:02 [facility] [id number]) Out-Patient Physical Therapy Visit Information Visit Information Visit Type Treatment Note Visit Start Time 08:15 Visit Stop Time 09:15 Visit Number 11 Number of METAL MINER BLASTING Visits 0 Evaluation Information Evaluation Date 11/03/24 PT-OP-B Current Condition Start: 11/03/24 09:47 Freq: Status: Active Protocol: Document 12/15/24 08:15 SAK (Rec: 12/15/24 09:02 SAK [id number]) Current Condition History of Current Condition Onset Date 09/11/24 Current Complaints right shoulder pain History of Current Condition Fell while visiting sister in [place]; tripped over curb landed on right shoulder. x- ray negative. MRI showed RC tear Saw Dr. Hernández, now going to see Dr. Villalta November 29. Hasn't done any ice or heat. Takes Ibuprofen and Acetaminophen a couple times a day. Pain as high as 8 /10. Unable to reach overhead , out to the side, or behind her back. Can't drive. Has history prior right shoulder pain due to a couple prior falls with RC tears. No surgeries Prior Treatments and Tests 1. Full-thickness rupture of supraspinatus and infraspinatus at their insertions on humeral head with up to 3.7 cm medial retraction of torn tendon fibers to the level of acromioclavicular joint. Mild -to-moderate supraspinatus muscle atrophy and mild infraspinatus muscle atrophy. 2. Low to moderate grade intrasubstance partial- thickness tear involving distal subscapularis. 3. Superior migration of humeral head in relation to glenoid. [id number]-[id number]-[id number] acromioclavicular joint osteoarthritis. No acute fracture or dislocation. 4. Suggestion of superior anterior glenoid labral tear. 5. Low-grade partial-thickness tear involving proximal long head of biceps. PT-OP-C Subjective Start: 11/03/24 09:47 Freq: Status: Active Protocol: Document 12/15/24 08:15 SAK (Rec: 12/15/24 09:02 SAK [id number]) OP-PT Subjective Patient Comments Patient Comments Shoulder is sore but can do exercises. Has some questions about exercises PT-OP-F Manual Assessment Start: 11/03/24 09:47 Freq: Status: Active Protocol: Document 11/03/24 09:50 SAK (Rec: 11/03/24 15:17 SAK [id number]) Manual Assessments Joint Mobility Assessment Joint Mobility Assessment poorly tolerated right shoulder PT-OP-H Neuro Start: 11/03/24 09:47 Freq: Status: Active Protocol: Document 11/03/24 09:50 SAK (Rec: 11/03/24 15:17 SAK [id number]) Sensation Evaluation Gross Sensation Gross Sensation WNL PT-OP-J Posture/Palpation/Skin Start: 11/03/24 09:47 Freq: Status: Active Protocol: Document 11/03/24 09:50 SAK (Rec: 11/03/24 15:17 SAK [id number]) Posture Evaluation Position Sitting Head/C-Spine Posture C-Spine Flattened T-Spine Posture Increased Kyphosis Scapula Posture (L) Protracted,(R) Protracted Arm Posture (L) Internally Rotated,(R) Internally Rotated Palpation Assessment Location right [place] Palpation Findings Soft Tissue Tightness,Muscle Guarding rc insertion Palpation Location R Palpation Findings Muscle Guarding,Tenderness PT-OP-K Range of Motion Start: 11/03/24 09:47 Freq: Status: Active Protocol: Document 11/03/24 09:50 SAK (Rec: 11/03/24 10:38 SAK [id number]) Cervical Spine Range of Motion Cervical Spine Active Comments mod decrease all motions Shoulder Goniometric Range of Motion Shoulder Right Shoulder ROM WFL No Testing Position Sitting Flexion 25 Extension 5 Abduction 40 External Rotation at 0 degrees Abduction 10 Internal Rotation Behind Back (text) anterior hip Left Flexion 145 Extension 10 Abduction 130 External Rotation at 0 degrees Abduction 50 Internal Rotation Behind Back (text) T6 PT-OP-L Special Tests Start: 11/03/24 09:47 Freq: Status: Active Protocol: Document 11/03/24 09:50 SAK (Rec: 11/03/24 15:17 SAK [id number]) Special Tests Shoulder Special Tests Drop Arm Rotator Cuff Test Results + R PT-OP-Q Treatments Start: 11/03/24 09:47 Freq: Status: Active Protocol: Document 12/15/24 08:15 SAK (Rec: 12/15/24 09:02 SAK [id number]) Therapeutic Exercises Supine Exercises isometrics 90/90 Supine Exercise Name shld elevation 90 deg Resistance gentle manual resistance all directions Reps/Minutes 2 min T pec stretch Supine Exercise Name also Y Resistance zachery Reps/Minutes 30sec x 2 Comments cues for pain-free ROM W pec stretch Supine Exercise Name Humeral ER (90/90- W) Pec stretch Side bilateral Equipment Used 2 pillows under head. Reps/Minutes 2 reps 10 SH Comments good form, cued breath pnfree range chest press Reps/Minutes 10x Comments cane shoulder flex Equipment Used wand Reps/Minutes 10x Comments 30-160 Sitting Exercises overhead press Equipment Used 1/2# Reps/Minutes 10x posterior capsule stretch Reps/Minutes 2x Comments cues to feel posterior shoulder or don't do, keep shoulder down ER Equipment Used L1 TB Reps/Minutes 5x5 Comments min movement Standing Exercises isometrics Reps/Minutes 3x Comments review posture, set shoulder blades, gentle Manual Therapy Treatment Soft Tissue Mobilization right shoulder Body Location anterior deltoid, bicep, pec Mobilization Type Rolling Intensity/Depth Moderate Body Position SL & supine Comments gentle pressure with feedback Joint Mobilizations R GH Jt Joint R posterior glide Direction PA Comments PROM/ AROM ER PT-OP-R Modalities Start: 11/03/24 09:47 Freq: Status: Active Protocol: Document 11/25/24 11:32 SP (Rec: 11/25/24 12:22 SP [id number]) Hot Pack/Cold Pack Treatment Heat Location right shoulder Patient Position Hooklying Patient Tolerance Good PT-OP-T Assessment and Plan Start: 11/03/24 09:47 Freq: Status: Active Protocol: Document 12/15/24 08:15 [facility] (Rec: 12/15/24 09:02 SAK [id number]) Physical Therapy Assessment Goals 4 Impairment No HEP Impairment Decreased strength right shoulder compared to the rleft side Short Term Goal (STG) Patient to be instructed in HEP for purposes of right shoulder ROM and strengthening and postural correction 12/09/24: goal met, ongoing progression STG Duration goal met Residential Goal (LTG) Patient will be independent and compliant with HEP and demonstrate right shoulder ROM WFL and strength at least 4/5 in available ROM LTG Duration 02/01/25 3 Impairment pain as high as 8/10 right shoulder Impairment Serenity is limited to walking 1-2 blocks with SPC at this time Short Term Goal (STG) Decrease pain to no greater than 4/10 with all usual activities 11/25/24: when reaches out to R side with weight has pain but no pain AROM. Has pain 5/10 R shld pain with weakeness hard midrange taking a light 2/5 wt down from [place]. 12/09/24: 2-8/10, worst with holding weight out to side or overhead. STG Duration 12/24/24 progressing 11/25/24 Accounting Recruiter Goal (LTG) Decrease pain to no greater than 2/10 with all usual activities LTG Duration 02/01/25 2 Impairment Quickdash UE disability score 75% Impairment scar tissue restrictions on both the dorsal and plantar aspects of the great toe on the left causing reports of discomfort rated 2/10 with standing and walking Short Term Goal (STG) Decrease Quickdash score to no greater than 50% as measure of improved right UE function 12/09/24: decreased to % STG Duration 12/24/24 Accounting Recruiter Goal (LTG) Decrease score to no greater than 25% as measure of improved right UE function LTG Duration 02/01/25 activity tolerance Impairment unable to reach overhead, out to side, behind her back, unable to drive Impairment lower extremity functional scale (LEFS) 34 Residential Goal (LTG) Patient will demonstrate improvement in use of right UE sufficient to allow her star comb her hair, feed herself, perform toileting, and drive short distances using right UE 11/25/24: progression: can drive better allows R arm help in 4-6 o'clock, can reach behind back approx T10 now, challenge tiring feeding self reps then pain, She can comb hair now with R, wipes back to front with RUE (normal activity performance) discussed trial front to back better hygenic. 12/09/24: can comb hair, get one plate out of cupbord, unable more, self care when toileting still difficult but improved LTG Duration 02/01/25 Assessment Summary Assessment reviewed HEP per patient questions with corrections to technique, patient demonstrated good undetstanding taking notes to correct. Physical Therapy Plan Frequency and Duration Frequency of Treatment 2x/Week Duration of treatment (weeks) 8 Plan of Care Start Date 11/03/24 Plan of Care End Date 01/01/25 Therapeutic Interventions Therapeutic Interventions Home Exercise Program,Manual Therapy,Patient/Caregiver Education,Self-Care/Home Management,Soft Tissue Mobilization,Taping, Therapeutic Activities, Therapeutic Exercises Modalities Cold Pack/Ice Massage,Electric Stimulation,Hot Packs, Infrared Therapy,Iontophoresis ,Ultrasound Next Visit Focus/Plan Next Note Type Treatment Note Next Visit Plan Continue progression of HEP emphasis gentle strengthening with cues for fatigue not pain .
--- NOTE | 2024-12-21 08:58 | PT.OTN ---
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 x- ray negative. MRI showed RC tear Saw Dr. Hernández, now going to see Dr. Villalta November 29. Hasn't done any ice or heat. Takes Ibuprofen and Acetaminophen a couple times a day. Pain as high as 8 /10. Unable to reach overhead , out to the side, or behind her back. Can't drive. Has history prior right shoulder pain due to a couple prior falls with RC tears. No surgeries Prior Treatments and Tests 1. Full-thickness rupture of supraspinatus and infraspinatus at their insertions on humeral head with up to 3.7 cm medial retraction of torn tendon fibers to the level of acromioclavicular joint. Mild -to-moderate supraspinatus muscle atrophy and mild infraspinatus muscle atrophy. 2. Low to moderate grade intrasubstance partial- thickness tear involving distal subscapularis. 3. Superior migration of humeral head in relation to glenoid. [id number] acromioclavicular joint osteoarthritis. No acute fracture or dislocation. 4. Suggestion of superior anterior glenoid labral tear. 5. Low-grade partial-thickness tear involving proximal long head of biceps. PT-OP-C Subjective Start: 11/03/24 09:47 Freq: Status: Active Protocol: Document 12/21/24 08:18 SP (Rec: 12/21/24 09:06 SP [id number]) OP-PT Subjective Patient Comments Patient Comments Pt reports did ok after last tx. R shld hurts when does certain things like seated: ER abd /c ER and over head pressing with weight. Wants to get stronger to do this. PT-OP-F Manual Assessment Start: 11/03/24 09:47 Freq: Status: Active Protocol: Document 11/03/24 09:50 SAK (Rec: 11/03/24 15:17 SAK [id number]) Manual Assessments Joint Mobility Assessment Joint Mobility Assessment poorly tolerated right shoulder PT-OP-H Neuro Start: 11/03/24 09:47 Freq: Status: Active Protocol: Document 11/03/24 09:50 SAK (Rec: 11/03/24 15:17 SAK [id number]) Sensation Evaluation Gross Sensation Gross Sensation WNL PT-OP-J Posture/Palpation/Skin Start: 11/03/24 09:47 Freq: Status: Active Protocol: Document 11/03/24 09:50 SAK (Rec: 11/03/24 15:17 SAK [id number]) Posture Evaluation Position Sitting Head/C-Spine Posture C-Spine Flattened T-Spine Posture Increased Kyphosis Scapula Posture (L) Protracted,(R) Protracted Arm Posture (L) Internally Rotated,(R) Internally Rotated Palpation Assessment Location right UT Palpation Findings Soft Tissue Tightness,Muscle Guarding rc insertion Palpation Location R Palpation Findings Muscle Guarding,Tenderness PT-OP-K Range of Motion Start: 11/03/24 09:47 Freq: Status: Active Protocol: Document 11/03/24 09:50 SAK (Rec: 11/03/24 10:38 SAK [id number]) Cervical Spine Range of Motion Cervical Spine Active Comments mod decrease all motions Shoulder Goniometric Range of Motion Shoulder Right Shoulder ROM WFL No Testing Position Sitting Flexion 25 Extension 5 Abduction 40 External Rotation at 0 degrees Abduction 10 Internal Rotation Behind Back (text) anterior hip Left Flexion 145 Extension 10 Abduction 130 External Rotation at 0 degrees Abduction 50 Internal Rotation Behind Back (text) T6 PT-OP-L Special Tests Start: 11/03/24 09:47 Freq: Status: Active Protocol: Document 11/03/24 09:50 [facility] (Rec: 11/03/24 15:17 SAK [id number]) Special Tests Shoulder Special Tests Drop Arm Rotator Cuff Test Results + R PT-OP-Q Treatments Start: 11/03/24 09:47 Freq: Status: Active Protocol: Document 12/21/24 08:18 SP (Rec: 12/21/24 09:06 SP [id number]) Therapeutic Exercises Supine Exercises shoulder ER Supine Exercise Name added to HEP: written on her HO: 0 deg abd, 30 deg abd Side right Resistance 1# DB x10, 2# DB 5 reps Comments cued scap on table con/ecc T pec stretch Supine Exercise Name T and Y Resistance zachery Reps/Minutes Y 10 sec tolerated, 30 sec x 2 , T Comments cues for pain-free ROM, W pec stretch Supine Exercise Name Humeral ER (90/90- W) Pec stretch Side bilateral Equipment Used 2 pillows under head. Reps/Minutes 2 reps 10 SH Comments good form, cued breath pnfree range Sitting Exercises ER Equipment Used L1 TB in BUE Reps/Minutes 5x5 Comments min movement Standing Exercises D2 flexion (sword) Standing Exercise Name Reviewed a past HEP Side right Resistance TB #1 peach (nonlatex) successful range Reps/Minutes 5 reps Comments chest>Y cervical ROM Standing Exercise Name Lat SB, Rotation Reps/Minutes 5 reps each Comments cued slower pacing, maintain head up, overhead press Standing Exercise Name sitting and standing Side bilateral Resistance 1# DB Reps/Minutes 5 reps before tires standing, 3 reps seated R bicep pain Comments cued head up, close chain hands closer head coming down pnfree standing bicep curl Standing Exercise Name 3 hand position (hammer, pron, sup)- HEP Side bilateral Equipment Used 1. 1# DB 2. 2# DB Reps/Minutes 1. 10x each, 2. 2# DB 4 reps hammer/ 2 rep pronated / 3 reps supinated Comments cued head up, decreased endurance 2# DB Manual Therapy Treatment Consent Patient gave verbal consent for manual Yes treatment Soft Tissue Mobilization right shoulder Body Location anterior deltoid, prox bicep, distal pec Mobilization Type Rolling,Sustained Pressure, Other Intensity/Depth Moderate Body Position SL & supine Comments gentle pressure with feedback, MWM bicep,coracobrachialis, ant deltoid. PT-OP-R Modalities Start: 11/03/24 09:47 Freq: Status: Active Protocol: Document 11/25/24 11:32 SP (Rec: 11/25/24 12:22 SP [id number]) Hot Pack/Cold Pack Treatment Heat Location right shoulder Patient Position Hooklying Patient Tolerance Good PT-OP-T Assessment and Plan Start: 11/03/24 09:47 Freq: Status: Active Protocol: Document 12/21/24 08:18 SP (Rec: 12/21/24 09:06 SP [id number]) Physical Therapy Assessment Goals 4 Impairment No HEP Impairment Decreased strength right shoulder compared to the rleft side Short Term Goal (STG) Patient to be instructed in HEP for purposes of right shoulder ROM and strengthening and postural correction 12/09/24: goal met, ongoing progression STG Duration goal met Snf Goal (LTG) Patient will be independent and compliant with HEP and demonstrate right shoulder ROM WFL and strength at least 4/5 in available ROM LTG Duration 02/01/25 3 Impairment pain as high as 8/10 right shoulder Impairment Serenity is limited to walking 1-2 blocks with SPC at this time Short Term Goal (STG) Decrease pain to no greater than 4/10 with all usual activities 11/25/24: when reaches out to R side with weight has pain but no pain AROM. Has pain 5/10 R shld pain with weakeness hard midrange taking a light 2/5 wt down from OH. 12/09/24: 2-8/10, worst with holding weight out to side or overhead. STG Duration 12/24/24 progressing 11/25/24 Snf Goal (LTG) Decrease pain to no greater than 2/10 with all usual activities LTG Duration 02/01/25 2 Impairment Quickdash UE disability score 75% Impairment scar tissue restrictions on both the dorsal and plantar aspects of the great toe on the left causing reports of discomfort rated 2/10 with standing and walking Short Term Goal (STG) Decrease Quickdash score to no greater than 50% as measure of improved right UE function 12/09/24: decreased to % STG Duration 12/24/24 Piece Hand Goal (LTG) Decrease score to no greater than 25% as measure of improved right UE function LTG Duration 02/01/25 activity tolerance Impairment unable to reach overhead, out to side, behind her back, unable to drive Impairment lower extremity functional scale (LEFS) 34 Snf Goal (LTG) Patient will demonstrate improvement in use of right UE sufficient to allow her star comb her hair, feed herself, perform toileting, and drive short distances using right UE 11/25/24: progression: can drive better allows R arm help in 4-6 o'clock, can reach behind back approx T10 now, challenge tiring feeding self reps then pain, She can comb hair now with R, wipes back to front with RUE (normal activity performance) discussed trial front to back better hygenic. 12/09/24: can comb hair, get one plate out of cupbord, unable more, self care when toileting still difficult but improved LTG Duration 02/01/25 Assessment Summary Assessment Pt improved scap set corrections and head up with cues. Progressed focus ER today supine added DB for work with gravity, no pain. Able to progress OH Sword end tx. Physical Therapy Plan Frequency and Duration Frequency of Treatment 2x/Week Duration of treatment (weeks) 8 Plan of Care Start Date 11/03/24 Plan of Care End Date 01/01/25 Therapeutic Interventions Therapeutic Interventions Home Exercise Program,Manual Therapy,Patient/Caregiver Education,Self-Care/Home Management,Soft Tissue Mobilization,Taping, Therapeutic Activities, Therapeutic Exercises Modalities Cold Pack/Ice Massage,Electric Stimulation,Hot Packs, Infrared Therapy,Iontophoresis ,Ultrasound Next Visit Focus/Plan Next Note Type Treatment Note Next Visit Plan Continue progression of HEP emphasis gentle strengthening with cues for fatigue not pain .
--- NOTE | 2024-12-23 09:01 | PT.OTN ---
Current Diagnoses Other specific arthropathies, not elsewhere classified, right shoulder (12/23/24) Impingement syndrome of right shoulder (12/23/24) Strain of other muscles, fascia and tendons at shoulder and upper arm level, right arm, initial encounter (12/23/24) Physical Therapy Treatment Note PT-OP-A Visit Information Start: 11/03/24 09:47 Freq: Status: Active Protocol: Document 12/23/24 08:16 SP (Rec: 12/23/24 09:03 SP [id number]) Out-Patient Physical Therapy Visit Information Visit Information Visit Type Treatment Note Visit Start Time 08:18 Visit Stop Time 08:59 Visit Number 13 Number of [employer]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 x- ray negative. MRI showed RC tear Saw Dr. Hernández, now going to see Dr. Villalta November 29. Hasn't done any ice or heat. Takes Ibuprofen and Acetaminophen a couple times a day. Pain as high as 8 /10. Unable to reach overhead , out to the side, or behind her back. Can't drive. Has history prior right shoulder pain due to a couple prior falls with RC tears. No surgeries Prior Treatments and Tests 1. Full-thickness rupture of supraspinatus and infraspinatus at their insertions on humeral head with up to 3.7 cm medial retraction of torn tendon fibers to the level of acromioclavicular joint. Mild -to-moderate supraspinatus muscle atrophy and mild infraspinatus muscle atrophy. 2. Low to moderate grade intrasubstance partial- thickness tear involving distal subscapularis. 3. Superior migration of humeral head in relation to glenoid. [id number] acromioclavicular joint osteoarthritis. No acute fracture or dislocation. 4. Suggestion of superior anterior glenoid labral tear. 5. Low-grade partial-thickness tear involving proximal long head of biceps. PT-OP-C Subjective Start: 11/03/24 09:47 Freq: Status: Active Protocol: Document 12/23/24 08:16 SP (Rec: 12/23/24 09:03 SP [id number]) OP-PT Subjective Patient Comments Patient Comments Pt reports still has effort to perform posture, pain with reach over head and out to side especially in bicep and anterior R shld. SHaky end range OH, pain with an weight in her hand. Compliant with HEP. SHe stated her R bicep hurt alot after last tx doing Ys and Ws supine. SHe couldn't do UE ex since last tx. So performed past leg HEP. PT-OP-F Manual Assessment Start: 11/03/24 09:47 Freq: Status: Active Protocol: Document 11/03/24 09:50 SAK (Rec: 11/03/24 15:17 SAK [id number]) Manual Assessments Joint Mobility Assessment Joint Mobility Assessment poorly tolerated right shoulder PT-OP-H Neuro Start: 11/03/24 09:47 Freq: Status: Active Protocol: Document 11/03/24 09:50 SAK (Rec: 11/03/24 15:17 SAK [id number]) Sensation Evaluation Gross Sensation Gross Sensation WNL PT-OP-J Posture/Palpation/Skin Start: 11/03/24 09:47 Freq: Status: Active Protocol: Document 11/03/24 09:50 SAK (Rec: 11/03/24 15:17 SAK [id number]) Posture Evaluation Position Sitting Head/C-Spine Posture C-Spine Flattened T-Spine Posture Increased Kyphosis Scapula Posture (L) Protracted,(R) Protracted Arm Posture (L) Internally Rotated,(R) Internally Rotated Palpation Assessment Location right UT Palpation Findings Soft Tissue Tightness,Muscle Guarding rc insertion Palpation Location R Palpation Findings Muscle Guarding,Tenderness PT-OP-K Range of Motion Start: 11/03/24 09:47 Freq: Status: Active Protocol: Document 11/03/24 09:50 SAK (Rec: 11/03/24 10:38 SAK [id number]) Cervical Spine Range of Motion Cervical Spine Active Comments mod decrease all motions Shoulder Goniometric Range of Motion Shoulder Right Shoulder ROM WFL No Testing Position Sitting Flexion 25 Extension 5 Abduction 40 External Rotation at 0 degrees Abduction 10 Internal Rotation Behind Back (text) anterior hip Left Flexion 145 Extension 10 Abduction 130 External Rotation at 0 degrees Abduction 50 Internal Rotation Behind Back (text) T6 PT-OP-L Special Tests Start: 11/03/24 09:47 Freq: Status: Active Protocol: Document 11/03/24 09:50 SAK (Rec: 11/03/24 15:17 SAK [id number]) Special Tests Shoulder Special Tests Drop Arm Rotator Cuff Test Results + R PT-OP-Q Treatments Start: 11/03/24 09:47 Freq: Status: Active Protocol: Document 12/23/24 08:16 SP (Rec: 12/23/24 09:03 SP [id number]) Therapeutic Exercises Sitting Exercises ER Sitting Exercise Name standing (ER 55 deg pain end feel, 43 deg painfree), 1/2 lb pnfree 25-43 de Side right Equipment Used AROM ok, 1/2 lb bar pain full range Reps/Minutes 10 reps AROM, 4 reps 1/2 lb bar ok Standing Exercises IR behind back Standing Exercise Name T9 behind back, then holds with LUE stretch Side right Comments self HEP AROM and stretch D2 flexion (sword) Standing Exercise Name Reviewed a past HEP Side right Resistance AROM, unable perform 1/2 lb wt Equipment Used front mirror Reps/Minutes 10 reps Comments chest>Y- ok no resistance tiring overhead press Standing Exercise Name sitting and standing Side bilateral Resistance AROM, 1/2 lb bar Equipment Used front mirror Reps/Minutes 12 reps, 8 reps 1/2 lb. Comments improved self scap depression glid con/ecc Ys off wall Standing Exercise Name Y > ll is better sliding up is ok but can't lift off wall deltoid pain. Side bilateral Resistance AROM Equipment Used wall slides Reps/Minutes 5 reps, 10 reps Comments good form, little tension R ant deltoid/bicep tricep ext Side right Equipment Used TB #2>3 [place] Reps/Minutes 1. 10 reps anchored over door 2. 10 reps anchored at chest (home set up) Comments cued head up, scap set back, tricep fac inhibit bicep hor ab/ad Equipment Used towel, counter Reps/Minutes 4 x Comments then lateral R shld pain shoulder extension Standing Exercise Name reviewed Side bilateral Equipment Used TB #2 orange (teal home) Reps/Minutes 5x 5 Comments cued head up, scap set back/ down con/ecc PT-OP-R Modalities Start: 11/03/24 09:47 Freq: Status: Active Protocol: Document 11/25/24 11:32 SP (Rec: 11/25/24 12:22 SP [id number]) Hot Pack/Cold Pack Treatment Heat Location right shoulder Patient Position Hooklying Patient Tolerance Good PT-OP-T Assessment and Plan Start: 11/03/24 09:47 Freq: Status: Active Protocol: Document 12/23/24 08:16 SP (Rec: 12/23/24 09:03 SP [id number]) Physical Therapy Assessment Goals 4 Impairment No HEP Impairment Decreased strength right shoulder compared to the rleft side Short Term Goal (STG) Patient to be instructed in HEP for purposes of right shoulder ROM and strengthening and postural correction 12/09/24: goal met, ongoing progression STG Duration goal met Fdc Goal (LTG) Patient will be independent and compliant with HEP and demonstrate right shoulder ROM WFL and strength at least 4/5 in available ROM 12/23/24: is compliant with HEP , can reach overhead with RUE now but shakey and causes pain if has any weight reachign out to side or over head. LTG Duration 02/01/25 progressing 12/23/24 3 Impairment pain as high as 8/10 right shoulder Impairment Serenity is limited to walking 1-2 blocks with SPC at this time Short Term Goal (STG) Decrease pain to no greater than 4/10 with all usual activities 11/25/24: when reaches out to R side with weight has pain but no pain AROM. Has pain 5/10 R shld pain with weakeness hard midrange taking a light 2/5 wt down from OH. 12/09/24: 2-8/10, worst with holding weight out to side or overhead. 12/23/24: Continues to have pain R shld and is shaky when reaches out to the side 6-7/10 when tries to put dishes up in cupboard with RUE, needs use LUE support. STG Duration 12/24/24 progressing 12/23/24 Fdc Goal (LTG) Decrease pain to no greater than 2/10 with all usual activities LTG Duration 02/01/25 2 Impairment Quickdash UE disability score 75% Impairment scar tissue restrictions on both the dorsal and plantar aspects of the great toe on the left causing reports of discomfort rated 2/10 with standing and walking Short Term Goal (STG) Decrease Quickdash score to no greater than 50% as measure of improved right UE function 12/09/24: decreased to % STG Duration 12/24/24 Fdc Goal (LTG) Decrease score to no greater than 25% as measure of improved right UE function LTG Duration 02/01/25 activity tolerance Impairment unable to reach overhead, out to side, behind her back, unable to drive Impairment lower extremity functional scale (LEFS) 34 Fdc Goal (LTG) Patient will demonstrate improvement in use of right UE sufficient to allow her star comb her hair, feed herself, perform toileting, and drive short distances using right UE 11/25/24: progression: can drive better allows R arm help in 4-6 o'clock, can reach behind back approx T10 now, challenge tiring feeding self reps then pain, She can comb hair now with R, wipes back to front with RUE (normal activity performance) discussed trial front to back better hygenic. 12/09/24: can comb hair, get one plate out of cupbord, unable more, self care when toileting still difficult but improved 12/23/24: MET GOAL: able to perform all self hygiene activities. LTG Duration 02/01/25 GOAL MET 12/23/24 Assessment Summary Assessment Tx focused on R shld range without pain and trial progression with light weight range can tolerate. Found ER standing is similar in range and performing light weight can for strengthening purposes . Still not meeting all goals, would benefit from continued PT beyond 01/01, PT to assess. Physical Therapy Plan Frequency and Duration Frequency of Treatment 2x/Week Duration of treatment (weeks) 8 Plan of Care Start Date 11/03/24 Plan of Care End Date 01/01/25 Therapeutic Interventions Therapeutic Interventions Home Exercise Program,Manual Therapy,Patient/Caregiver Education,Self-Care/Home Management,Soft Tissue Mobilization,Taping, Therapeutic Activities, Therapeutic Exercises Modalities Cold Pack/Ice Massage,Electric Stimulation,Hot Packs, Infrared Therapy,Iontophoresis ,Ultrasound Next Visit Focus/Plan Next Note Type Treatment Note Next Visit Plan Continue progression of HEP emphasis gentle strengthening with cues for fatigue not pain .
--- NOTE | 2024-12-29 08:15 | PT.OTN ---
Current Diagnoses Other specific arthropathies, not elsewhere classified, right shoulder (12/29/24) Impingement syndrome of right shoulder (12/29/24) Strain of other muscles, fascia and tendons at shoulder and upper arm level, right arm, initial encounter (12/29/24) Physical Therapy Treatment Note PT-OP-A Visit Information Start: 11/03/24 09:47 Freq: Status: Active Protocol: Document 12/29/24 07:31 SP (Rec: 12/29/24 08:19 SP [id number]) Out-Patient Physical Therapy Visit Information Visit Information Visit Type Treatment Note Visit Start Time 07:32 Visit Stop Time 08:15 Visit Number 14 (03/05 with PN) Number of WOOD PATTERNMAKER Visits 3 Evaluation Information Evaluation Date 11/03/24 PT-OP-B Current Condition Start: 11/03/24 09:47 Freq: Status: Active Protocol: Document 12/15/24 08:15 SAK (Rec: 12/15/24 09:02 SAK [id number]) Current Condition History of Current Condition Onset Date 09/11/24 Current Complaints right shoulder pain History of Current Condition Fell while visiting sister in [place]; tripped over curb landed on right shoulder. x- ray negative. MRI showed RC tear Saw Dr. Hernández, now going to see Dr. Villalta November 29. Hasn't done any ice or heat. Takes Ibuprofen and Acetaminophen a couple times a day. Pain as high as 8 /10. Unable to reach overhead , out to the side, or behind her back. Can't drive. Has history prior right shoulder pain due to a couple prior falls with RC tears. No surgeries Prior Treatments and Tests 1. Full-thickness rupture of supraspinatus and infraspinatus at their insertions on humeral head with up to 3.7 cm medial retraction of torn tendon fibers to the level of acromioclavicular joint. Mild -to-moderate supraspinatus muscle atrophy and mild infraspinatus muscle atrophy. 2. Low to moderate grade intrasubstance partial- thickness tear involving distal subscapularis. 3. Superior migration of humeral head in relation to glenoid. [id number] acromioclavicular joint osteoarthritis. No acute fracture or dislocation. 4. Suggestion of superior anterior glenoid labral tear. 5. Low-grade partial-thickness tear involving proximal long head of biceps. PT-OP-C Subjective Start: 11/03/24 09:47 Freq: Status: Active Protocol: Document 12/29/24 07:31 SP (Rec: 12/29/24 08:19 SP [id number]) OP-PT Subjective Patient Comments Patient Comments Pt reports her R deltoid still hurts. She has an appt orthopedic Dr Villalta at [facility], later today about her R shld. PT-OP-F Manual Assessment Start: 11/03/24 09:47 Freq: Status: Active Protocol: Document 11/03/24 09:50 SAK (Rec: 11/03/24 15:17 SAK [id number]) Manual Assessments Joint Mobility Assessment Joint Mobility Assessment poorly tolerated right shoulder PT-OP-H Neuro Start: 11/03/24 09:47 Freq: Status: Active Protocol: Document 11/03/24 09:50 SAK (Rec: 11/03/24 15:17 SAK [id number]) Sensation Evaluation Gross Sensation Gross Sensation WNL PT-OP-J Posture/Palpation/Skin Start: 11/03/24 09:47 Freq: Status: Active Protocol: Document 11/03/24 09:50 SAK (Rec: 11/03/24 15:17 SAK [id number]) Posture Evaluation Position Sitting Head/C-Spine Posture C-Spine Flattened T-Spine Posture Increased Kyphosis Scapula Posture (L) Protracted,(R) Protracted Arm Posture (L) Internally Rotated,(R) Internally Rotated Palpation Assessment Location right UT Palpation Findings Soft Tissue Tightness,Muscle Guarding rc insertion Palpation Location R Palpation Findings Muscle Guarding,Tenderness PT-OP-K Range of Motion Start: 11/03/24 09:47 Freq: Status: Active Protocol: Document 11/03/24 09:50 SAK (Rec: 11/03/24 10:38 SAK [id number]) Cervical Spine Range of Motion Cervical Spine Active Comments mod decrease all motions Shoulder Goniometric Range of Motion Shoulder Right Shoulder ROM WFL No Testing Position Sitting Flexion 25 Extension 5 Abduction 40 External Rotation at 0 degrees Abduction 10 Internal Rotation Behind Back (text) anterior hip Left Flexion 145 Extension 10 Abduction 130 External Rotation at 0 degrees Abduction 50 Internal Rotation Behind Back (text) T6 PT-OP-L Special Tests Start: 11/03/24 09:47 Freq: Status: Active Protocol: Document 11/03/24 09:50 SAK (Rec: 11/03/24 15:17 SAK [id number]) Special Tests Shoulder Special Tests Drop Arm Rotator Cuff Test Results + R PT-OP-Q Treatments Start: 11/03/24 09:47 Freq: Status: Active Protocol: Document 12/29/24 07:31 SP (Rec: 12/29/24 08:19 SP [id number]) Therapeutic Exercises Sitting Exercises TB eccentric FF an ABD Sitting Exercise Name added to HEP: FF & ABD- written/drawan on her HOs. Side right Resistance Tb #2 ff, TB #1 ABD Equipment Used seated back to wall, TB anchored in door Reps/Minutes 10 reps each direction Comments no pain in R deloid and cued head up ER Sitting Exercise Name standing Side right Equipment Used AROM ok, 1/2 lb bar pain 2 reps so DC wt Reps/Minutes 10 reps AROM, 2 reps 1/2 lb bar ok Comments Cued not use weight, more increase reps AROM to fatigue, engage Rhomboid Standing Exercises D2 flexion (sword) Standing Exercise Name Reviewed Side right Resistance AROM, 1/2 # bar Equipment Used front mirror Reps/Minutes 1 reps no weight, 1/2 lb bar 1 rep before tired, 5 reps AROM Comments cued head up, reach like Ys off wall and into cupboard Ys off wall Standing Exercise Name Ys Side bilateral Resistance AROM Equipment Used wall slides then lift off Reps/Minutes 2x 10 reps Comments good form, tiring but no pain today 12/29/24 counter slide Standing Exercise Name HABD Side right Equipment Used Added #1 light blue TB anchor LUE ontable, single R each Reps/Minutes 10 reps Comments cued stand tall, improved elbow straight full arch range no pain tall PT-OP-R Modalities Start: 11/03/24 09:47 Freq: Status: Active Protocol: Document 11/25/24 11:32 SP (Rec: 11/25/24 12:22 SP [id number]) Hot Pack/Cold Pack Treatment Heat Location right shoulder Patient Position Hooklying Patient Tolerance Good PT-OP-T Assessment and Plan Start: 11/03/24 09:47 Freq: Status: Active Protocol: Document 12/29/24 07:31 SP (Rec: 12/29/24 08:19 SP [id number]) Physical Therapy Assessment Goals 4 Impairment No HEP Impairment Decreased strength right shoulder compared to the rleft side Short Term Goal (STG) Patient to be instructed in HEP for purposes of right shoulder ROM and strengthening and postural correction 12/09/24: goal met, ongoing progression STG Duration goal met Jail Goal (LTG) Patient will be independent and compliant with HEP and demonstrate right shoulder ROM WFL and strength at least 4/5 in available ROM 12/23/24: is compliant with HEP , can reach overhead with RUE now but shakey and causes pain if has any weight reachign out to side or over head. LTG Duration 02/01/25 progressing 12/23/24 3 Impairment pain as high as 8/10 right shoulder Impairment Serenity is limited to walking 1-2 blocks with SPC at this time Short Term Goal (STG) Decrease pain to no greater than 4/10 with all usual activities 11/25/24: when reaches out to R side with weight has pain but no pain AROM. Has pain 5/10 R shld pain with weakeness hard midrange taking a light 2/5 wt down from OH. 12/09/24: 2-8/10, worst with holding weight out to side or overhead. 12/23/24: Continues to have pain R shld and is shaky when reaches out to the side 6-7/10 when tries to put dishes up in cupboard with RUE, needs use LUE support. STG Duration 12/24/24 progressing 12/23/24 Jail Goal (LTG) Decrease pain to no greater than 2/10 with all usual activities LTG Duration 02/01/25 2 Impairment Quickdash UE disability score 75% Impairment scar tissue restrictions on both the dorsal and plantar aspects of the great toe on the left causing reports of discomfort rated 2/10 with standing and walking Short Term Goal (STG) Decrease Quickdash score to no greater than 50% as measure of improved right UE function 12/09/24: decreased to % STG Duration 12/24/24 Assembly And Packing Supervisor Goal (LTG) Decrease score to no greater than 25% as measure of improved right UE function LTG Duration 02/01/25 activity tolerance Impairment unable to reach overhead, out to side, behind her back, unable to drive Impairment lower extremity functional scale (LEFS) 34 Assembly And Packing Supervisor Goal (LTG) Patient will demonstrate improvement in use of right UE sufficient to allow her star comb her hair, feed herself, perform toileting, and drive short distances using right UE 11/25/24: progression: can drive better allows R arm help in 4-6 o'clock, can reach behind back approx T10 now, challenge tiring feeding self reps then pain, She can comb hair now with R, wipes back to front with RUE (normal activity performance) discussed trial front to back better hygenic. 12/09/24: can comb hair, get one plate out of cupbord, unable more, self care when toileting still difficult but improved 12/23/24: MET GOAL: able to perform all self hygiene activities. LTG Duration 02/01/25 GOAL MET 12/23/24 Assessment Summary Assessment Pt improved postural corrections, she wrote herself written cues for carryover home. Progressed reps over head FF/Ys/Sword pull AROM, HABD table arch able progress against resistance. Initiated eccentric resisted FF and ABD seated with report I dont' have pain in deloid/bicep doing this. WOOD PATTERNMAKER provided written stick figure on her HOs for self recall/set up. Physical Therapy Plan Frequency and Duration Frequency of Treatment 2x/Week Duration of treatment (weeks) 8 Plan of Care Start Date 11/03/24 Plan of Care End Date 01/01/25 Therapeutic Interventions Therapeutic Interventions Home Exercise Program,Manual Therapy,Patient/Caregiver Education,Self-Care/Home Management,Soft Tissue Mobilization,Taping, Therapeutic Activities, Therapeutic Exercises Modalities Cold Pack/Ice Massage,Electric Stimulation,Hot Packs, Infrared Therapy,Iontophoresis ,Ultrasound Next Visit Focus/Plan Next Note Type Progress Note Next Visit Plan Update POC pre 01/01 for continue PT to continue strengthening OH without deloid/prox distal bicep pain. Check how orthopedic appt went . Continue progression of HEP emphasis gentle strengthening with cues for fatigue not pain .
--- NOTE | 2024-12-30 16:23 | PT.OTRE ---
Current Diagnoses Other specific arthropathies, not elsewhere classified, right shoulder (12/30/24) Impingement syndrome of right shoulder (12/30/24) Strain of other muscles, fascia and tendons at shoulder and upper arm level, right arm, initial encounter (12/30/24) Past Medical History (Last Reviewed 07/06/24 @ 06:12 by Zeyad Lai MD) Cancer Cataracts, bilateral (~2015) Chicken pox Chronic hyponatremia Chronic renal failure, stage 3 (moderate) Constipation Cyclothymia Depression Diverticular disease of colon Dysphagia Fecal incontinence (~2014) Fractures (~2004) Gastroesophageal reflux disease with esophagitis Genital warts (~1984) Heart palpitations History of urinary incontinence (~2014) Incomplete left bundle branch block (LBBB) Lumbar spinal stenosis Measles Mixed urge and stress incontinence Osteopenia Osteoporosis, unspecified Overactive bladder Sciatica Urge incontinence Urinary frequency UTI (urinary tract infection) Viral cardiomyopathy Weight loss Surgical History (Last Reviewed 07/06/24 @ 06:12 by Zeyad Lai MD) Anesthesia H/O hernia repair History of vaginal hysterectomy (~1996) Melanoma (~1981) Visit Care Team Role Provider Type Joshua Chin MD Attending Provider Physician Family Provider Primary Care Provider Referring Provider Specialty: Internal Medicine Address: [address] [place] [address], [address], [facility] Email: [email or web address] Physical Therapy Re-Evaluation PT-OP-A Visit Information Start: 11/03/24 09:47 Freq: Status: Active Protocol: Document 12/30/24 15:19 [facility] (Rec: 12/30/24 16:07 [facility] [id number]) Out-Patient Physical Therapy Visit Information Visit Information Visit Type Treatment Note Visit Start Time 15:19 Visit Stop Time 15:20 Visit Number 15 Number of CONCRETE CRAFTSMAN Visits 0 Evaluation Information Evaluation Date 11/03/24 PT-OP-B Current Condition Start: 11/03/24 09:47 Freq: Status: Active Protocol: Document 12/30/24 15:19 [facility] (Rec: 12/30/24 16:07 [facility] [id number]) Current Condition History of Current Condition Onset Date 09/11/24 Current Complaints right shoulder pain History of Current Condition Fell while visiting sister in [place]; tripped over curb landed on right shoulder. x- ray negative. MRI showed RC tear Saw Dr. Hernández, now going to see Dr. Villalta November 29. Hasn't done any ice or heat. Takes Ibuprofen and Acetaminophen a couple times a day. Pain as high as 8 /10. Unable to reach overhead , out to the side, or behind her back. Can't drive. Has history prior right shoulder pain due to a couple prior falls with RC tears. No surgeries Prior Treatments and Tests 1. Full-thickness rupture of supraspinatus and infraspinatus at their insertions on humeral head with up to 3.7 cm medial retraction of torn tendon fibers to the level of acromioclavicular joint. Mild -to-moderate supraspinatus muscle atrophy and mild infraspinatus muscle atrophy. 2. Low to moderate grade intrasubstance partial- thickness tear involving distal subscapularis. 3. Superior migration of humeral head in relation to glenoid. [id number] acromioclavicular joint osteoarthritis. No acute fracture or dislocation. 4. Suggestion of superior anterior glenoid labral tear. 5. Low-grade partial-thickness tear involving proximal long head of biceps. PT-OP-C Subjective Start: 11/03/24 09:47 Freq: Status: Active Protocol: Document 12/30/24 15:19 [facility] (Rec: 12/30/24 16:07 [facility] [id number]) OP-PT Subjective Patient Comments Patient Comments Saw orthopedist yesterday, recommended continue PT. States he was surprised by how well she is doing but to let him know when she feels she is ready for a total shoulder if worsens again. Patient pleased with progress but hoping for further improvement with PT. PT-OP-F Manual Assessment Start: 11/03/24 09:47 Freq: Status: Active Protocol: Document 11/03/24 09:50 SAK (Rec: 11/03/24 15:17 [facility] [id number]) Manual Assessments Joint Mobility Assessment Joint Mobility Assessment poorly tolerated right shoulder PT-OP-H Neuro Start: 11/03/24 09:47 Freq: Status: Active Protocol: Document 11/03/24 09:50 SAK (Rec: 11/03/24 15:17 [facility] [id number]) Sensation Evaluation Gross Sensation Gross Sensation WNL PT-OP-J Posture/Palpation/Skin Start: 11/03/24 09:47 Freq: Status: Active Protocol: Document 11/03/24 09:50 SAK (Rec: 11/03/24 15:17 [facility] [id number]) Posture Evaluation Position Sitting Head/C-Spine Posture C-Spine Flattened T-Spine Posture Increased Kyphosis Scapula Posture (L) Protracted,(R) Protracted Arm Posture (L) Internally Rotated,(R) Internally Rotated Palpation Assessment Location right UT Palpation Findings Soft Tissue Tightness,Muscle Guarding rc insertion Palpation Location R Palpation Findings Muscle Guarding,Tenderness PT-OP-K Range of Motion Start: 11/03/24 09:47 Freq: Status: Active Protocol: Document 11/03/24 09:50 SAK (Rec: 11/03/24 10:38 [facility] [id number]) Cervical Spine Range of Motion Cervical Spine Active Comments mod decrease all motions Shoulder Goniometric Range of Motion Shoulder Measured in Degrees Right Shoulder ROM WFL No Testing Position Sitting Flexion 25 Extension 5 Abduction 40 External Rotation at 0 degrees Abduction 10 Internal Rotation Behind Back (text) anterior hip Left Flexion 145 Extension 10 Abduction 130 External Rotation at 0 degrees Abduction 50 Internal Rotation Behind Back (text) T6 PT-OP-L Special Tests Start: 11/03/24 09:47 Freq: Status: Active Protocol: Document 11/03/24 09:50 [facility] (Rec: 11/03/24 15:17 [facility] [id number]) Special Tests Shoulder Special Tests Drop Arm Rotator Cuff Test Results + R PT-OP-Q Treatments Start: 11/03/24 09:47 Freq: Status: Active Protocol: Document 12/30/24 15:19 [facility] (Rec: 12/30/24 16:07 [facility] [id number]) Therapeutic Exercises Supine Exercises pec stretch Supine Exercise Name manual Reps/Minutes 1 min Comments arms at sides isometrics 90/90 Supine Exercise Name shld elevation 90 deg Resistance gentle manual resistance all directions Reps/Minutes 1 min Sitting Exercises TB eccentric FF an ABD Sitting Exercise Name added to HEP: FF & ABD- written/drawan on her HOs. Side right Resistance Tb #2 ff, TB #1 ABD Equipment Used seated back to wall, TB anchored in door Reps/Minutes 10 reps each direction Comments no pain in R deloid and cued head up ER Side right Equipment Used AROM Reps/Minutes 10 reps AROM, Comments cannot elek weight Standing Exercises isometrics Standing Exercise Name HEP review, doesn't elke ER Reps/Minutes 3x Comments review posture, set shoulder blades, gentle Manual Therapy Treatment Consent Patient gave verbal consent for manual Yes treatment Soft Tissue Mobilization right shoulder Body Location anterior deltoid, prox bicep, UT Mobilization Type Rolling,Sustained Pressure, Other Intensity/Depth Moderate Body Position Supine Comments gentle-mod pressure with feedback Self-Care/Home Management Treatment Education Other Education importance of setting scapulas before isometric ex. reviewed eccentric sh flex and abd with band PT-OP-R Modalities Start: 11/03/24 09:47 Freq: Status: Active Protocol: Document 12/30/24 15:19 [facility] (Rec: 12/30/24 16:23 [facility] [id number]) Hot Pack/Cold Pack Treatment Heat Location right shoulder Patient Position Hooklying Patient Tolerance Good PT-OP-T Assessment and Plan Start: 11/03/24 09:47 Freq: Status: Active Protocol: Document 12/30/24 15:19 [facility] (Rec: 12/30/24 16:07 [facility] [id number]) Physical Therapy Assessment Rehab Potential Rehabilitation Potential Fair Impairments Impairments Activity Tolerance,Pain, Posture,ROM,Strength Goals 4 Impairment No HEP Impairment . Short Term Goal (STG) Patient to be instructed in HEP for purposes of right shoulder ROM and strengthening and postural correction 12/09/24: goal met, ongoing progression STG Duration goal met Mortgage Closer Goal (LTG) Patient will be independent and compliant with HEP and demonstrate right shoulder ROM WFL and strength at least 4/5 in available ROM 12/23/24: is compliant with HEP , can reach overhead with RUE now but shakey and causes pain if has any weight reachign out to side or over head. 12/30/24: good compliance with HEP, very attentive. Has to make modifications to prevent pain, can't do W or Y laying down; hurts. ROM FF 139, ab 74, ER64. Strength 3-/5 ff, ab,ER, 3+/5 IR, 4/5 ext. LTG Duration 02/01/25 3 Impairment pain as high as 8/10 right shoulder Impairment . Short Term Goal (STG) Decrease pain to no greater than 4/10 with all usual activities 11/25/24: when reaches out to R side with weight has pain but no pain AROM. Has pain 5/10 R shld pain with weakeness hard midrange taking a light 2/5 wt down from [place]. 12/09/24: 2-8, worst with holding weight out to side or overhead. 12/23/24: Continues to have pain R shld and is shaky when reaches out to the side 6-7/10 when tries to put dishes up in cupboard with RUE, needs use LUE support. 12/29/24: 4-7 STG Duration 12/24/24 progressing 12/23/24 Mortgage Closer Goal (LTG) Decrease pain to no greater than 2/10 with all usual activities LTG Duration 02/01/25 2 Impairment Quickdash UE disability score 75% Impairment . Short Term Goal (STG) Decrease Quickdash score to no greater than 50% as measure of improved right UE function 12/09/24: decreased to % 12/30/24: STG Duration 12/24/24 Mortgage Closer Goal (LTG) Decrease score to no greater than 25% as measure of improved right UE function LTG Duration 02/01/25 activity tolerance Impairment unable to reach overhead, out to side, behind her back, unable to drive Senior Living Goal (LTG) Patient will demonstrate improvement in use of right UE sufficient to allow her star comb her hair, feed herself, perform toileting, and drive short distances using right UE . Updated goal be able to open and close doors, lift dishes into and out of cupboard withoutp pain. 11/25/24: progression: can drive better allows R arm help in 4-6 o'clock, can reach behind back approx T10 now, challenge tiring feeding self reps then pain, She can comb hair now with R, wipes back to front with RUE (normal activity performance) discussed trial front to back better hygenic. 12/09/24: can comb hair, get one plate out of cupbord, unable more, self care when toileting still difficult but improved 12/23/24: MET GOAL: able to perform all self hygiene activities. : can reach overhead but no weight tolerated (ie cup, plate). Has to push car door with left, can't move band with attempts LTG Duration 02/01/25 Assessment Summary Assessment Good progress toward goals. Has functional ROM, but is not able to tolerate lifting anything in/out cupboards or reaching out to side for typical activities such as reaching for phone or coffee at side table, or opening/ closing doors, car door; has to use left UE. She is highly motivated and compliant with HEP and has potential for further improvement in right shoulder function despite severity of RC tears. REcommend further PT. Physical Therapy Plan Frequency and Duration Frequency of Treatment 2x/Week Duration of treatment (weeks) 8 Plan of Care Start Date 12/30/24 Plan of Care End Date 01/30/25 Therapeutic Interventions Therapeutic Interventions Home Exercise Program,Manual Therapy,Patient/Caregiver Education,Self-Care/Home Management,Soft Tissue Mobilization,Taping, Therapeutic Activities, Therapeutic Exercises Modalities Cold Pack/Ice Massage,Electric Stimulation,Hot Packs, Infrared Therapy,Iontophoresis ,Ultrasound Next Visit Focus/Plan Next Note Type Treatment Note Next Visit Plan Continue gentle PT for right shoulder ROM and strengthening , update HEP as indicated. Modalities and manual therapy PRN.
--- NOTE | 2025-01-06 09:03 | PT.OTN ---
Current Diagnoses Other specific arthropathies, not elsewhere classified, right shoulder (01/06/25) Impingement syndrome of right shoulder (01/06/25) Strain of other muscles, fascia and tendons at shoulder and upper arm level, right arm, initial encounter (01/06/25) Physical Therapy Treatment Note PT-OP-A Visit Information Start: 11/03/24 09:47 Freq: Status: Active Protocol: Document 01/06/25 08:11 SAK (Rec: 01/06/25 09:03 [facility] [id number]) Out-Patient Physical Therapy Visit Information Visit Information Visit Type Treatment Note Visit Start Time 08:15 Visit Stop Time 09:15 Visit Number 16 Number of ROOMING HOUSE KEEPER Visits 0 Evaluation Information Evaluation Date 11/03/24 PT-OP-B Current Condition Start: 11/03/24 09:47 Freq: Status: Active Protocol: Document 01/06/25 08:11 SAK (Rec: 01/06/25 09:03 SAK [id number]) Current Condition History of Current Condition Onset Date 09/11/24 Current Complaints right shoulder pain History of Current Condition Fell while visiting sister in [place]; tripped over curb landed on right shoulder. x- ray negative. MRI showed RC tear Saw Dr. Hernández, now going to see Dr. Villalta November 29. Hasn't done any ice or heat. Takes Ibuprofen and Acetaminophen a couple times a day. Pain as high as 8 /10. Unable to reach overhead , out to the side, or behind her back. Can't drive. Has history prior right shoulder pain due to a couple prior falls with RC tears. No surgeries Prior Treatments and Tests 1. Full-thickness rupture of supraspinatus and infraspinatus at their insertions on humeral head with up to 3.7 cm medial retraction of torn tendon fibers to the level of acromioclavicular joint. Mild -to-moderate supraspinatus muscle atrophy and mild infraspinatus muscle atrophy. 2. Low to moderate grade intrasubstance partial- thickness tear involving distal subscapularis. 3. Superior migration of humeral head in relation to glenoid. [id number] acromioclavicular joint osteoarthritis. No acute fracture or dislocation. 4. Suggestion of superior anterior glenoid labral tear. 5. Low-grade partial-thickness tear involving proximal long head of biceps. PT-OP-C Subjective Start: 11/03/24 09:47 Freq: Status: Active Protocol: Document 01/06/25 08:11 SAK (Rec: 01/06/25 09:03 SAK [id number]) OP-PT Subjective Patient Comments Patient Comments Was sick yesterday, didn't do her exercises, has been in quite a bit of pain PT-OP-F Manual Assessment Start: 11/03/24 09:47 Freq: Status: Active Protocol: Document 11/03/24 09:50 SAK (Rec: 11/03/24 15:17 [facility] [id number]) Manual Assessments Joint Mobility Assessment Joint Mobility Assessment poorly tolerated right shoulder PT-OP-H Neuro Start: 11/03/24 09:47 Freq: Status: Active Protocol: Document 11/03/24 09:50 SAK (Rec: 11/03/24 15:17 SAK [id number]) Sensation Evaluation Gross Sensation Gross Sensation WNL PT-OP-J Posture/Palpation/Skin Start: 11/03/24 09:47 Freq: Status: Active Protocol: Document 11/03/24 09:50 SAK (Rec: 11/03/24 15:17 [facility] [id number]) Posture Evaluation Position Sitting Head/C-Spine Posture C-Spine Flattened T-Spine Posture Increased Kyphosis Scapula Posture (L) Protracted,(R) Protracted Arm Posture (L) Internally Rotated,(R) Internally Rotated Palpation Assessment Location right UT Palpation Findings Soft Tissue Tightness,Muscle Guarding rc insertion Palpation Location R Palpation Findings Muscle Guarding,Tenderness PT-OP-K Range of Motion Start: 11/03/24 09:47 Freq: Status: Active Protocol: Document 11/03/24 09:50 SAK (Rec: 11/03/24 10:38 SAK [id number]) Cervical Spine Range of Motion Cervical Spine Active Comments mod decrease all motions Shoulder Goniometric Range of Motion Shoulder Right Shoulder ROM WFL No Testing Position Sitting Flexion 25 Extension 5 Abduction 40 External Rotation at 0 degrees Abduction 10 Internal Rotation Behind Back (text) anterior hip Left Flexion 145 Extension 10 Abduction 130 External Rotation at 0 degrees Abduction 50 Internal Rotation Behind Back (text) T6 PT-OP-L Special Tests Start: 11/03/24 09:47 Freq: Status: Active Protocol: Document 11/03/24 09:50 SAK (Rec: 11/03/24 15:17 [facility] [id number]) Special Tests Shoulder Special Tests Drop Arm Rotator Cuff Test Results + R PT-OP-Q Treatments Start: 11/03/24 09:47 Freq: Status: Active Protocol: Document 01/06/25 08:11 [facility] (Rec: 01/06/25 09:03 [facility] [id number]) Therapeutic Exercises Sitting Exercises TB eccentric FF an ABD Sitting Exercise Name added to HEP: FF & ABD- written/drawan on her HOs. Side right Resistance Tb #2 ff, TB #1 ABD Equipment Used seated back to wall, TB anchored in door Reps/Minutes 10 reps each direction Comments cues for pain-free ROM, pain right with full ER Sitting Exercise Name isometric against armrest of orange chair(home) Side right Equipment Used AROM Reps/Minutes 3 reps , pulleys Sitting Exercise Name flexion and scaption, orange ball behind thoracic spine Equipment Used Pulleys Reps/Minutes 10x Comments cues for painfree, plane of scapula for scaption (cue no pinching) Standing Exercises shoulder shrugs, scap squeeze Reps/Minutes 5x Ys off wall Standing Exercise Name Ys with thumbs up Side bilateral Resistance AROM Equipment Used wall slides then lift off Reps/Minutes 10x, fatigued Comments good form, tiring but no pain today 01/06/25 shoulder extension Standing Exercise Name reviewed Side bilateral Equipment Used TB #3 latex free (teal home) Reps/Minutes 10x2 second set with sh ER ( palms forward) Comments cued head up, scap set back/ down con/ecc row Standing Exercise Name Row & Extension Side bilateral Resistance TB #3 latex tree (teal home) Reps/Minutes 12x, denies pain Comments cues body positioning arms straight Manual Therapy Treatment Consent Patient gave verbal consent for manual Yes treatment Soft Tissue Mobilization right shoulder Body Location anterior deltoid, prox bicep, UT, LS Mobilization Type Rolling,Sustained Pressure, Other Intensity/Depth Moderate Body Position Supine Comments gentle-mod pressure with feedback Self-Care/Home Management Treatment Education Other Education towel roll behind thoracic spine while seated (vertical most comfortable) PT-OP-R Modalities Start: 11/03/24 09:47 Freq: Status: Active Protocol: Document 01/06/25 08:11 [facility] (Rec: 01/06/25 09:03 [facility] [id number]) Hot Pack/Cold Pack Treatment Heat Location right shoulder, c/s Patient Position Hooklying Patient Tolerance Good PT-OP-T Assessment and Plan Start: 11/03/24 09:47 Freq: Status: Active Protocol: Document 01/06/25 08:11 MARIA LUZ (Rec: 01/06/25 09:03 SAK [id number]) Physical Therapy Assessment Impairments Impairments Activity Tolerance,Pain, Posture,ROM,Strength Goals 4 Impairment No HEP Impairment . Short Term Goal (STG) Patient to be instructed in HEP for purposes of right shoulder ROM and strengthening and postural correction 12/09/24: goal met, ongoing progression STG Duration goal met Long-Term Goal (LTG) Patient will be independent and compliant with HEP and demonstrate right shoulder ROM WFL and strength at least 4/5 in available ROM 12/23/24: is compliant with HEP , can reach overhead with RUE now but shakey and causes pain if has any weight reachign out to side or over head. 12/30/24: good compliance with HEP, very attentive. Has to make modifications to prevent pain, can't do W or Y laying down; hurts. ROM FF 139, ab 74, ER64. Strength 3-/5 ff, ab,ER, 3+/5 IR, 4/5 ext. LTG Duration 02/01/25 3 Impairment pain as high as 8/10 right shoulder Impairment . Short Term Goal (STG) Decrease pain to no greater than 4/10 with all usual activities 11/25/24: when reaches out to R side with weight has pain but no pain AROM. Has pain 5/10 R shld pain with weakeness hard midrange taking a light 2/5 wt down from [place]. 12/09/24: 2-8/10, worst with holding weight out to side or overhead. 12/23/24: Continues to have pain R shld and is shaky when reaches out to the side 6-7/10 when tries to put dishes up in cupboard with RUE, needs use LUE support. 12/29/24: 4-7 STG Duration 12/24/24 progressing 12/23/24 Wood Technologist Goal (LTG) Decrease pain to no greater than 2/10 with all usual activities LTG Duration 02/01/25 2 Impairment Quickdash UE disability score 75% Impairment . Short Term Goal (STG) Decrease Quickdash score to no greater than 50% as measure of improved right UE function 12/09/24: decreased to % 12/30/24: STG Duration 12/24/24 Long-Term Goal (LTG) Decrease score to no greater than 25% as measure of improved right UE function LTG Duration 02/01/25 activity tolerance Impairment unable to reach overhead, out to side, behind her back, unable to drive Impairment lower extremity functional scale (LEFS) 34 Wood Technologist Goal (LTG) Patient will demonstrate improvement in use of right UE sufficient to allow her star comb her hair, feed herself, perform toileting, and drive short distances using right UE . Updated goal be able to open and close doors, lift dishes into and out of cupboard withoutp pain. 11/25/24: progression: can drive better allows R arm help in 4-6 o'clock, can reach behind back approx T10 now, challenge tiring feeding self reps then pain, She can comb hair now with R, wipes back to front with RUE (normal activity performance) discussed trial front to back better hygenic. 12/09/24: can comb hair, get one plate out of cupbord, unable more, self care when toileting still difficult but improved 12/23/24: MET GOAL: able to perform all self hygiene activities. : can reach overhead but no weight tolerated (ie cup, plate). Has to push car door with left, can't move band with attempts LTG Duration 02/01/25 Assessment Summary Assessment Patient more sore today, fair elke for ther ex. Ended with STM UT, periscap and MH with good elke. Physical Therapy Plan Frequency and Duration Frequency of Treatment 2x/Week Duration of treatment (weeks) 8 Plan of Care Start Date 12/30/24 Plan of Care End Date 01/30/25 Therapeutic Interventions Therapeutic Interventions Home Exercise Program,Manual Therapy,Patient/Caregiver Education,Self-Care/Home Management,Soft Tissue Mobilization,Taping, Therapeutic Activities, Therapeutic Exercises Modalities Cold Pack/Ice Massage,Electric Stimulation,Hot Packs, Infrared Therapy,Iontophoresis ,Ultrasound Next Visit Focus/Plan Next Note Type Treatment Note Next Visit Plan Continue gentle PT for right shoulder ROM and strengthening , update HEP as indicated. Modalities and manual therapy PRN.
--- NOTE | 2025-01-10 17:01 | PT.OTN ---
Current Diagnoses Other specific arthropathies, not elsewhere classified, right shoulder (01/10/25) Impingement syndrome of right shoulder (01/10/25) Strain of other muscles, fascia and tendons at shoulder and upper arm level, right arm, initial encounter (01/10/25) Physical Therapy Treatment Note PT-OP-A Visit Information Start: 11/03/24 09:47 Freq: Status: Active Protocol: Document 01/10/25 11:34 SAK (Rec: 01/10/25 12:26 [facility] [id number]) Out-Patient Physical Therapy Visit Information Visit Information Visit Type Treatment Note Visit Start Time 11:35 Visit Stop Time 12:30 Visit Number 17 Number of BOX SORTER Visits 0 Evaluation Information Evaluation Date 11/03/24 PT-OP-B Current Condition Start: 11/03/24 09:47 Freq: Status: Active Protocol: Document 01/10/25 11:34 SAK (Rec: 01/10/25 12:26 SAK [id number]) Current Condition History of Current Condition Onset Date 09/11/24 Current Complaints right shoulder pain History of Current Condition Fell while visiting sister in [place]; tripped over curb landed on right shoulder. x- ray negative. MRI showed RC tear Saw Dr. Hernández, now going to see Dr. Villalta November 29. Hasn't done any ice or heat. Takes Ibuprofen and Acetaminophen a couple times a day. Pain as high as 8 /10. Unable to reach overhead , out to the side, or behind her back. Can't drive. Has history prior right shoulder pain due to a couple prior falls with RC tears. No surgeries Prior Treatments and Tests 1. Full-thickness rupture of supraspinatus and infraspinatus at their insertions on humeral head with up to 3.7 cm medial retraction of torn tendon fibers to the level of acromioclavicular joint. Mild -to-moderate supraspinatus muscle atrophy and mild infraspinatus muscle atrophy. 2. Low to moderate grade intrasubstance partial- thickness tear involving distal subscapularis. 3. Superior migration of humeral head in relation to glenoid. [id number] acromioclavicular joint osteoarthritis. No acute fracture or dislocation. 4. Suggestion of superior anterior glenoid labral tear. 5. Low-grade partial-thickness tear involving proximal long head of biceps. PT-OP-C Subjective Start: 11/03/24 09:47 Freq: Status: Active Protocol: Document 01/10/25 11:34 SAK (Rec: 01/10/25 12:26 SAK [id number]) OP-PT Subjective Patient Comments Patient Comments Shoulder pretty painful today , thinks was the exercises she did yesterday, possibly wand exercises. PT-OP-F Manual Assessment Start: 11/03/24 09:47 Freq: Status: Active Protocol: Document 11/03/24 09:50 SAK (Rec: 11/03/24 15:17 SAK [id number]) Manual Assessments Joint Mobility Assessment Joint Mobility Assessment poorly tolerated right shoulder PT-OP-H Neuro Start: 11/03/24 09:47 Freq: Status: Active Protocol: Document 11/03/24 09:50 SAK (Rec: 11/03/24 15:17 SAK [id number]) Sensation Evaluation Gross Sensation Gross Sensation WNL PT-OP-J Posture/Palpation/Skin Start: 11/03/24 09:47 Freq: Status: Active Protocol: Document 11/03/24 09:50 SAK (Rec: 11/03/24 15:17 SAK [id number]) Posture Evaluation Position Sitting Head/C-Spine Posture C-Spine Flattened T-Spine Posture Increased Kyphosis Scapula Posture (L) Protracted,(R) Protracted Arm Posture (L) Internally Rotated,(R) Internally Rotated Palpation Assessment Location right UT Palpation Findings Soft Tissue Tightness,Muscle Guarding rc insertion Palpation Location R Palpation Findings Muscle Guarding,Tenderness PT-OP-K Range of Motion Start: 11/03/24 09:47 Freq: Status: Active Protocol: Document 11/03/24 09:50 SAK (Rec: 11/03/24 10:38 SAK [id number]) Cervical Spine Range of Motion Cervical Spine Active Comments mod decrease all motions Shoulder Goniometric Range of Motion Shoulder Right Shoulder ROM WFL No Testing Position Sitting Flexion 25 Extension 5 Abduction 40 External Rotation at 0 degrees Abduction 10 Internal Rotation Behind Back (text) anterior hip Left Flexion 145 Extension 10 Abduction 130 External Rotation at 0 degrees Abduction 50 Internal Rotation Behind Back (text) T6 PT-OP-L Special Tests Start: 11/03/24 09:47 Freq: Status: Active Protocol: Document 11/03/24 09:50 SAK (Rec: 11/03/24 15:17 [facility] [id number]) Special Tests Shoulder Special Tests Drop Arm Rotator Cuff Test Results + R PT-OP-Q Treatments Start: 11/03/24 09:47 Freq: Status: Active Protocol: Document 01/10/25 11:34 [facility] (Rec: 01/10/25 12:26 [facility] [id number]) Therapeutic Exercises Sitting Exercises bicep curl Equipment Used 1#, 0# Reps/Minutes 10x Comments cues for neutral posture, pain -free ROM trunk rotation Reps/Minutes 5x Standing Exercises tricep ext Side right Equipment Used L2 TB Reps/Minutes 10 reps anchored high Comments cued head up, scap set back, tricep fac inhibit bicep wall posture Reps/Minutes 3 min Comments cues for start abdominals, then sh bl, sh. chin tuck Manual Therapy Treatment Soft Tissue Mobilization right shoulder Body Location anterior deltoid, prox bicep, UT, LS Mobilization Type Rolling,Sustained Pressure, Other Intensity/Depth Moderate Body Position Supine Comments gentle-mod pressure with feedback Self-Care/Home Management Treatment Education Patient Education Home Exercise Program,Pain Management,Posture Other Education decrease intensity and ROM if painful PT-OP-R Modalities Start: 11/03/24 09:47 Freq: Status: Active Protocol: Document 01/06/25 08:11 [facility] (Rec: 01/06/25 09:03 [facility] [id number]) Hot Pack/Cold Pack Treatment Heat Location right shoulder, c/s Patient Position Hooklying Patient Tolerance Good PT-OP-T Assessment and Plan Start: 11/03/24 09:47 Freq: Status: Active Protocol: Document 01/10/25 11:34 [facility] (Rec: 01/10/25 12:26 [facility] [id number]) Physical Therapy Assessment Impairments Impairments Activity Tolerance,Pain, Posture,ROM,Strength Goals 4 Impairment No HEP Impairment . Short Term Goal (STG) Patient to be instructed in HEP for purposes of right shoulder ROM and strengthening and postural correction 12/09/24: goal met, ongoing progression STG Duration goal met Snf Goal (LTG) Patient will be independent and compliant with HEP and demonstrate right shoulder ROM WFL and strength at least 4/5 in available ROM 12/23/24: is compliant with HEP , can reach overhead with RUE now but shakey and causes pain if has any weight reachign out to side or over head. 12/30/24: good compliance with HEP, very attentive. Has to make modifications to prevent pain, can't do W or Y laying down; hurts. ROM FF 139, ab 74, ER64. Strength 3-/5 ff, ab,ER, 3+/5 IR, 4/5 ext. LTG Duration 02/01/25 3 Impairment pain as high as 8/10 right shoulder Impairment . Short Term Goal (STG) Decrease pain to no greater than 4/10 with all usual activities 11/25/24: when reaches out to R side with weight has pain but no pain AROM. Has pain 5/10 R shld pain with weakeness hard midrange taking a light 2/5 wt down from [place]. 12/09/24: 2-8, worst with holding weight out to side or overhead. 12/23/24: Continues to have pain R shld and is shaky when reaches out to the side 6-7/10 when tries to put dishes up in cupboard with RUE, needs use LUE support. 12/29/24: 4-7 STG Duration 12/24/24 progressing 12/23/24 Snf Goal (LTG) Decrease pain to no greater than 2/10 with all usual activities LTG Duration 02/01/25 2 Impairment Quickdash UE disability score 75% Impairment . Short Term Goal (STG) Decrease Quickdash score to no greater than 50% as measure of improved right UE function 12/09/24: decreased to % 12/30/24: STG Duration 12/24/24 Snf Goal (LTG) Decrease score to no greater than 25% as measure of improved right UE function LTG Duration 02/01/25 activity tolerance Impairment unable to reach overhead, out to side, behind her back, unable to drive Impairment lower extremity functional scale (LEFS) 34 Snf Goal (LTG) Patient will demonstrate improvement in use of right UE sufficient to allow her star comb her hair, feed herself, perform toileting, and drive short distances using right UE . Updated goal be able to open and close doors, lift dishes into and out of cupboard withoutp pain. 11/25/24: progression: can drive better allows R arm help in 4-6 o'clock, can reach behind back approx T10 now, challenge tiring feeding self reps then pain, She can comb hair now with R, wipes back to front with RUE (normal activity performance) discussed trial front to back better hygenic. 12/09/24: can comb hair, get one plate out of cupbord, unable more, self care when toileting still difficult but improved 12/23/24: MET GOAL: able to perform all self hygiene activities. : can reach overhead but no weight tolerated (ie cup, plate). Has to push car door with left, can't move band with attempts LTG Duration 02/01/25 Assessment Summary Assessment Treatment modified due to increased shouder soreness, shown referral patterns of RC. Encouraged ex in pain-free ROM and intensity and back off as needed. Increased time on manual today followed by moist heat. Physical Therapy Plan Frequency and Duration Frequency of Treatment 2x/Week Duration of treatment (weeks) 8 Plan of Care Start Date 12/30/24 Plan of Care End Date 01/30/25 Therapeutic Interventions Therapeutic Interventions Home Exercise Program,Manual Therapy,Patient/Caregiver Education,Self-Care/Home Management,Soft Tissue Mobilization,Taping, Therapeutic Activities, Therapeutic Exercises Modalities Cold Pack/Ice Massage,Electric Stimulation,Hot Packs, Infrared Therapy,Iontophoresis ,Ultrasound Next Visit Focus/Plan Next Note Type Treatment Note Next Visit Plan Continue gentle PT for right shoulder ROM and strengthening , update HEP as indicated. Modalities and manual therapy PRN.
--- NOTE | 2025-01-10 17:02 | PT.OTN ---
Current Diagnoses Other specific arthropathies, not elsewhere classified, right shoulder (01/10/25) Impingement syndrome of right shoulder (01/10/25) Strain of other muscles, fascia and tendons at shoulder and upper arm level, right arm, initial encounter (01/10/25) Physical Therapy Treatment Note PT-OP-A Visit Information Start: 11/03/24 09:47 Freq: Status: Active Protocol: Document 01/10/25 11:34 SAK (Rec: 01/10/25 12:26 [facility] [id number]) Out-Patient Physical Therapy Visit Information Visit Information Visit Type Treatment Note Visit Start Time 11:35 Visit Stop Time 12:30 Visit Number 17 Number of [employer]ICE [employer] Visits 0 Evaluation Information Evaluation Date 11/03/24 PT-OP-B Current Condition Start: 11/03/24 09:47 Freq: Status: Active Protocol: Document 01/10/25 11:34 SAK (Rec: 01/10/25 12:26 SAK [id number]) Current Condition History of Current Condition Onset Date 09/11/24 Current Complaints right shoulder pain History of Current Condition Fell while visiting sister in [place]; tripped over curb landed on right shoulder. x- ray negative. MRI showed RC tear Saw Dr. Hernández, now going to see Dr. Villalta November 29. Hasn't done any ice or heat. Takes Ibuprofen and Acetaminophen a couple times a day. Pain as high as 8 /10. Unable to reach overhead , out to the side, or behind her back. Can't drive. Has history prior right shoulder pain due to a couple prior falls with RC tears. No surgeries Prior Treatments and Tests 1. Full-thickness rupture of supraspinatus and infraspinatus at their insertions on humeral head with up to 3.7 cm medial retraction of torn tendon fibers to the level of acromioclavicular joint. Mild -to-moderate supraspinatus muscle atrophy and mild infraspinatus muscle atrophy. 2. Low to moderate grade intrasubstance partial- thickness tear involving distal subscapularis. 3. Superior migration of humeral head in relation to glenoid. [id number] acromioclavicular joint osteoarthritis. No acute fracture or dislocation. 4. Suggestion of superior anterior glenoid labral tear. 5. Low-grade partial-thickness tear involving proximal long head of biceps. PT-OP-C Subjective Start: 11/03/24 09:47 Freq: Status: Active Protocol: Document 01/10/25 11:34 SAK (Rec: 01/10/25 12:26 SAK [id number]) OP-PT Subjective Patient Comments Patient Comments Shoulder pretty painful today , thinks was the exercises she did yesterday, possibly wand exercises. PT-OP-F Manual Assessment Start: 11/03/24 09:47 Freq: Status: Active Protocol: Document 11/03/24 09:50 SAK (Rec: 11/03/24 15:17 SAK [id number]) Manual Assessments Joint Mobility Assessment Joint Mobility Assessment poorly tolerated right shoulder PT-OP-H Neuro Start: 11/03/24 09:47 Freq: Status: Active Protocol: Document 11/03/24 09:50 SAK (Rec: 11/03/24 15:17 SAK [id number]) Sensation Evaluation Gross Sensation Gross Sensation WNL PT-OP-J Posture/Palpation/Skin Start: 11/03/24 09:47 Freq: Status: Active Protocol: Document 11/03/24 09:50 SAK (Rec: 11/03/24 15:17 SAK [id number]) Posture Evaluation Position Sitting Head/C-Spine Posture C-Spine Flattened T-Spine Posture Increased Kyphosis Scapula Posture (L) Protracted,(R) Protracted Arm Posture (L) Internally Rotated,(R) Internally Rotated Palpation Assessment Location right UT Palpation Findings Soft Tissue Tightness,Muscle Guarding rc insertion Palpation Location R Palpation Findings Muscle Guarding,Tenderness PT-OP-K Range of Motion Start: 11/03/24 09:47 Freq: Status: Active Protocol: Document 11/03/24 09:50 SAK (Rec: 11/03/24 10:38 SAK [id number]) Cervical Spine Range of Motion Cervical Spine Active Comments mod decrease all motions Shoulder Goniometric Range of Motion Shoulder Right Shoulder ROM WFL No Testing Position Sitting Flexion 25 Extension 5 Abduction 40 External Rotation at 0 degrees Abduction 10 Internal Rotation Behind Back (text) anterior hip Left Flexion 145 Extension 10 Abduction 130 External Rotation at 0 degrees Abduction 50 Internal Rotation Behind Back (text) T6 PT-OP-L Special Tests Start: 11/03/24 09:47 Freq: Status: Active Protocol: Document 11/03/24 09:50 SAK (Rec: 11/03/24 15:17 [facility] [id number]) Special Tests Shoulder Special Tests Drop Arm Rotator Cuff Test Results + R PT-OP-Q Treatments Start: 11/03/24 09:47 Freq: Status: Active Protocol: Document 01/10/25 11:34 [facility] (Rec: 01/10/25 12:26 [facility] [id number]) Therapeutic Exercises Sitting Exercises bicep curl Equipment Used 1#, 0# Reps/Minutes 10x Comments cues for neutral posture, pain -free ROM trunk rotation Reps/Minutes 5x Standing Exercises tricep ext Side right Equipment Used L2 TB Reps/Minutes 10 reps anchored high Comments cued head up, scap set back, tricep fac inhibit bicep wall posture Reps/Minutes 3 min Comments cues for start abdominals, then sh bl, sh. chin tuck Manual Therapy Treatment Soft Tissue Mobilization right shoulder Body Location anterior deltoid, prox bicep, UT, LS Mobilization Type Rolling,Sustained Pressure, Other Intensity/Depth Moderate Body Position Supine Comments gentle-mod pressure with feedback Self-Care/Home Management Treatment Education Patient Education Home Exercise Program,Pain Management,Posture Other Education decrease intensity and ROM if painful PT-OP-R Modalities Start: 11/03/24 09:47 Freq: Status: Active Protocol: Document 01/10/25 11:34 [facility] (Rec: 01/10/25 17:02 [facility] [id number]) Hot Pack/Cold Pack Treatment Heat Location zachery shoulder, c/s Patient Position Hooklying Patient Tolerance Good PT-OP-T Assessment and Plan Start: 11/03/24 09:47 Freq: Status: Active Protocol: Document 01/10/25 11:34 [facility] (Rec: 01/10/25 12:26 [facility] [id number]) Physical Therapy Assessment Impairments Impairments Activity Tolerance,Pain, Posture,ROM,Strength Goals 4 Impairment No HEP Impairment . Short Term Goal (STG) Patient to be instructed in HEP for purposes of right shoulder ROM and strengthening and postural correction 12/09/24: goal met, ongoing progression STG Duration goal met Cryptographic Clerk Goal (LTG) Patient will be independent and compliant with HEP and demonstrate right shoulder ROM WFL and strength at least 4/5 in available ROM 12/23/24: is compliant with HEP , can reach overhead with RUE now but shakey and causes pain if has any weight reachign out to side or over head. 12/30/24: good compliance with HEP, very attentive. Has to make modifications to prevent pain, can't do W or Y laying down; hurts. ROM FF 139, ab 74, ER64. Strength 3-/5 ff, ab,ER, 3+/5 IR, 4/5 ext. LTG Duration 02/01/25 3 Impairment pain as high as 8/10 right shoulder Impairment . Short Term Goal (STG) Decrease pain to no greater than 4/10 with all usual activities 11/25/24: when reaches out to R side with weight has pain but no pain AROM. Has pain 5/10 R shld pain with weakeness hard midrange taking a light 2/5 wt down from [place]. 12/09/24: 2-8, worst with holding weight out to side or overhead. 12/23/24: Continues to have pain R shld and is shaky when reaches out to the side 6-7/10 when tries to put dishes up in cupboard with RUE, needs use LUE support. 12/29/24: 4-7 STG Duration 12/24/24 progressing 12/23/24 Cryptographic Clerk Goal (LTG) Decrease pain to no greater than 2/10 with all usual activities LTG Duration 02/01/25 2 Impairment Quickdash UE disability score 75% Impairment . Short Term Goal (STG) Decrease Quickdash score to no greater than 50% as measure of improved right UE function 12/09/24: decreased to % 12/30/24: STG Duration 12/24/24 Skilled Nursing Goal (LTG) Decrease score to no greater than 25% as measure of improved right UE function LTG Duration 02/01/25 activity tolerance Impairment unable to reach overhead, out to side, behind her back, unable to drive Impairment lower extremity functional scale (LEFS) 34 Cryptographic Clerk Goal (LTG) Patient will demonstrate improvement in use of right UE sufficient to allow her star comb her hair, feed herself, perform toileting, and drive short distances using right UE . Updated goal be able to open and close doors, lift dishes into and out of cupboard withoutp pain. 11/25/24: progression: can drive better allows R arm help in 4-6 o'clock, can reach behind back approx T10 now, challenge tiring feeding self reps then pain, She can comb hair now with R, wipes back to front with RUE (normal activity performance) discussed trial front to back better hygenic. 12/09/24: can comb hair, get one plate out of cupbord, unable more, self care when toileting still difficult but improved 12/23/24: MET GOAL: able to perform all self hygiene activities. : can reach overhead but no weight tolerated (ie cup, plate). Has to push car door with left, can't move band with attempts LTG Duration 02/01/25 Assessment Summary Assessment Treatment modified due to increased shouder soreness, shown referral patterns of RC. Encouraged ex in pain-free ROM and intensity and back off as needed. Increased time on manual today followed by moist heat. Physical Therapy Plan Frequency and Duration Frequency of Treatment 2x/Week Duration of treatment (weeks) 8 Plan of Care Start Date 12/30/24 Plan of Care End Date 01/30/25 Therapeutic Interventions Therapeutic Interventions Home Exercise Program,Manual Therapy,Patient/Caregiver Education,Self-Care/Home Management,Soft Tissue Mobilization,Taping, Therapeutic Activities, Therapeutic Exercises Modalities Cold Pack/Ice Massage,Electric Stimulation,Hot Packs, Infrared Therapy,Iontophoresis ,Ultrasound Next Visit Focus/Plan Next Note Type Treatment Note Next Visit Plan Continue gentle PT for right shoulder ROM and strengthening , update HEP as indicated. Modalities and manual therapy PRN.
--- NOTE | 2025-01-13 09:01 | PT.OTN ---
Current Diagnoses Other specific arthropathies, not elsewhere classified, right shoulder (01/13/25) Impingement syndrome of right shoulder (01/13/25) Strain of other muscles, fascia and tendons at shoulder and upper arm level, right arm, initial encounter (01/13/25) Physical Therapy Treatment Note PT-OP-A Visit Information Start: 11/03/24 09:47 Freq: Status: Active Protocol: Document 01/13/25 08:11 SAK (Rec: 01/13/25 09:01 [facility] [id number]) Out-Patient Physical Therapy Visit Information Visit Information Visit Type Treatment Note Visit Start Time 08:15 Visit Stop Time 09:00 Visit Number 18 Number of PROGRAM FACILITATOR Visits 0 Evaluation Information Evaluation Date 11/03/24 PT-OP-B Current Condition Start: 11/03/24 09:47 Freq: Status: Active Protocol: Document 01/13/25 08:11 SAK (Rec: 01/13/25 09:01 SAK [id number]) Current Condition History of Current Condition Onset Date 09/11/24 Current Complaints right shoulder pain History of Current Condition Fell while visiting sister in [place]; tripped over curb landed on right shoulder. x- ray negative. MRI showed RC tear Saw Dr. Hernández, now going to see Dr. Villalta November 29. Hasn't done any ice or heat. Takes Ibuprofen and Acetaminophen a couple times a day. Pain as high as 8 /10. Unable to reach overhead , out to the side, or behind her back. Can't drive. Has history prior right shoulder pain due to a couple prior falls with RC tears. No surgeries Prior Treatments and Tests 1. Full-thickness rupture of supraspinatus and infraspinatus at their insertions on humeral head with up to 3.7 cm medial retraction of torn tendon fibers to the level of acromioclavicular joint. Mild -to-moderate supraspinatus muscle atrophy and mild infraspinatus muscle atrophy. 2. Low to moderate grade intrasubstance partial- thickness tear involving distal subscapularis. 3. Superior migration of humeral head in relation to glenoid. [id number] acromioclavicular joint osteoarthritis. No acute fracture or dislocation. 4. Suggestion of superior anterior glenoid labral tear. 5. Low-grade partial-thickness tear involving proximal long head of biceps. PT-OP-C Subjective Start: 11/03/24 09:47 Freq: Status: Active Protocol: Document 01/13/25 08:11 SAK (Rec: 01/13/25 09:01 SAK [id number]) OP-PT Subjective Patient Comments Patient Comments Woke up multiple times about every 45 minutes because shoulder hurting, feels ok this morning. PT-OP-F Manual Assessment Start: 11/03/24 09:47 Freq: Status: Active Protocol: Document 11/03/24 09:50 SAK (Rec: 11/03/24 15:17 SAK [id number]) Manual Assessments Joint Mobility Assessment Joint Mobility Assessment poorly tolerated right shoulder PT-OP-H Neuro Start: 11/03/24 09:47 Freq: Status: Active Protocol: Document 11/03/24 09:50 SAK (Rec: 11/03/24 15:17 SAK [id number]) Sensation Evaluation Gross Sensation Gross Sensation WNL PT-OP-J Posture/Palpation/Skin Start: 11/03/24 09:47 Freq: Status: Active Protocol: Document 11/03/24 09:50 SAK (Rec: 11/03/24 15:17 [facility] [id number]) Posture Evaluation Position Sitting Head/C-Spine Posture C-Spine Flattened T-Spine Posture Increased Kyphosis Scapula Posture (L) Protracted,(R) Protracted Arm Posture (L) Internally Rotated,(R) Internally Rotated Palpation Assessment Location right UT Palpation Findings Soft Tissue Tightness,Muscle Guarding rc insertion Palpation Location R Palpation Findings Muscle Guarding,Tenderness PT-OP-K Range of Motion Start: 11/03/24 09:47 Freq: Status: Active Protocol: Document 11/03/24 09:50 SAK (Rec: 11/03/24 10:38 SAK [id number]) Cervical Spine Range of Motion Cervical Spine Active Comments mod decrease all motions Shoulder Goniometric Range of Motion Shoulder Right Shoulder ROM WFL No Testing Position Sitting Flexion 25 Extension 5 Abduction 40 External Rotation at 0 degrees Abduction 10 Internal Rotation Behind Back (text) anterior hip Left Flexion 145 Extension 10 Abduction 130 External Rotation at 0 degrees Abduction 50 Internal Rotation Behind Back (text) T6 PT-OP-L Special Tests Start: 11/03/24 09:47 Freq: Status: Active Protocol: Document 11/03/24 09:50 SAK (Rec: 11/03/24 15:17 [facility] [id number]) Special Tests Shoulder Special Tests Drop Arm Rotator Cuff Test Results + R PT-OP-Q Treatments Start: 11/03/24 09:47 Freq: Status: Active Protocol: Document 01/13/25 08:11 [facility] (Rec: 01/13/25 09:01 [facility] [id number]) Therapeutic Exercises Sidelying Exercises open book Reps/Minutes 5 Comments modified, gentle Sitting Exercises thoracic ext Sitting Exercise Name with long axis UE ER and ext Equipment Used orange ball Reps/Minutes starting T10 working up to T4, cues for gentle TB eccentric FF an ABD Sitting Exercise Name added to HEP: FF & ABD- written/drawan on her HOs. Side right Resistance Tb #1 ff, TB #1 ABD Equipment Used seated back to wall, TB anchored in door Reps/Minutes 10 reps each direction Comments cues for pain-free ROM, pain right with full pulleys Sitting Exercise Name flexion and scaption, towel roll behind thoracic spine Equipment Used Pulleys Reps/Minutes 10x Comments cues for painfree, plane of scapula for scaption (cue no pinching) Standing Exercises isometrics Reps/Minutes 5x Comments review posture, close to walset shoulder blades, gentle , painfree intensity Manual Therapy Treatment Soft Tissue Mobilization periscap Intensity/Depth mod right shoulder Body Location anterior deltoid, prox bicep, UT, LS Mobilization Type Rolling,Sustained Pressure, Other Intensity/Depth Moderate Body Position Supine Comments gentle-mod pressure with feedback Self-Care/Home Management Treatment Education Patient Education Home Exercise Program,Pain Management,Posture Other Education cues for neutral posture with activities throughout the day including when patient putting coat in locker PT-OP-R Modalities Start: 11/03/24 09:47 Freq: Status: Active Protocol: Document 01/13/25 08:11 [facility] (Rec: 01/13/25 09:01 [facility] [id number]) Hot Pack/Cold Pack Treatment Heat Comments requested no heat today PT-OP-T Assessment and Plan Start: 11/03/24 09:47 Freq: Status: Active Protocol: Document 01/13/25 08:11 [facility] (Rec: 01/13/25 09:01 [facility] [id number]) Physical Therapy Assessment Impairments Impairments Activity Tolerance,Pain, Posture,ROM,Strength Goals 4 Impairment No HEP Impairment . Short Term Goal (STG) Patient to be instructed in HEP for purposes of right shoulder ROM and strengthening and postural correction 12/09/24: goal met, ongoing progression STG Duration goal met Cellophane Worker Goal (LTG) Patient will be independent and compliant with HEP and demonstrate right shoulder ROM WFL and strength at least 4/5 in available ROM 12/23/24: is compliant with HEP , can reach overhead with RUE now but shakey and causes pain if has any weight reachign out to side or over head. 12/30/24: good compliance with HEP, very attentive. Has to make modifications to prevent pain, can't do W or Y laying down; hurts. ROM FF 139, ab 74, ER64. Strength 3-/5 ff, ab,ER, 3+/5 IR, 4/5 ext. LTG Duration 02/01/25 3 Impairment pain as high as 8/10 right shoulder Impairment . Short Term Goal (STG) Decrease pain to no greater than 4/10 with all usual activities 11/25/24: when reaches out to R side with weight has pain but no pain AROM. Has pain 5/10 R shld pain with weakeness hard midrange taking a light 2/5 wt down from [place]. 12/09/24: 2-8/10, worst with holding weight out to side or overhead. 12/23/24: Continues to have pain R shld and is shaky when reaches out to the side 6-7/10 when tries to put dishes up in cupboard with RUE, needs use LUE support. 12/29/24: 4-7 STG Duration 12/24/24 progressing 12/23/24 Alf Goal (LTG) Decrease pain to no greater than 2/10 with all usual activities LTG Duration 02/01/25 2 Impairment Quickdash UE disability score 75% Impairment . Short Term Goal (STG) Decrease Quickdash score to no greater than 50% as measure of improved right UE function 12/09/24: decreased to % 12/30/24: STG Duration 12/24/24 Cellophane Worker Goal (LTG) Decrease score to no greater than 25% as measure of improved right UE function LTG Duration 02/01/25 activity tolerance Impairment unable to reach overhead, out to side, behind her back, unable to drive Impairment lower extremity functional scale (LEFS) 34 Cellophane Worker Goal (LTG) Patient will demonstrate improvement in use of right UE sufficient to allow her star comb her hair, feed herself, perform toileting, and drive short distances using right UE . Updated goal be able to open and close doors, lift dishes into and out of cupboard withoutp pain. 11/25/24: progression: can drive better allows R arm help in 4-6 o'clock, can reach behind back approx T10 now, challenge tiring feeding self reps then pain, She can comb hair now with R, wipes back to front with RUE (normal activity performance) discussed trial front to back better hygenic. 12/09/24: can comb hair, get one plate out of cupbord, unable more, self care when toileting still difficult but improved 12/23/24: MET GOAL: able to perform all self hygiene activities. : can reach overhead but no weight tolerated (ie cup, plate). Has to push car door with left, can't move band with attempts LTG Duration 02/01/25 Assessment Summary Assessment Patient with improved tolerance for ther ex today, rested yesterday. Encouraged strengtheing exercises only every other day, listen to body. POstural cues rrequired , benefits from towel roll vertically along spine Physical Therapy Plan Frequency and Duration Frequency of Treatment 2x/Week Duration of treatment (weeks) 8 Plan of Care Start Date 12/30/24 Plan of Care End Date 01/30/25 Therapeutic Interventions Therapeutic Interventions Home Exercise Program,Manual Therapy,Patient/Caregiver Education,Self-Care/Home Management,Soft Tissue Mobilization,Taping, Therapeutic Activities, Therapeutic Exercises Modalities Cold Pack/Ice Massage,Electric Stimulation,Hot Packs, Infrared Therapy,Iontophoresis ,Ultrasound Next Visit Focus/Plan Next Note Type Treatment Note Next Visit Plan Continue gentle PT for right shoulder ROM and strengthening , update HEP as indicated. Modalities and manual therapy PRN.
--- NOTE | 2025-01-19 09:02 | PT.OTN ---
Current Diagnoses Other specific arthropathies, not elsewhere classified, right shoulder (01/19/25) Impingement syndrome of right shoulder (01/19/25) Strain of other muscles, fascia and tendons at shoulder and upper arm level, right arm, initial encounter (01/19/25) Physical Therapy Treatment Note PT-OP-A Visit Information Start: 11/03/24 09:47 Freq: Status: Active Protocol: Document 01/19/25 08:13 SAK (Rec: 01/19/25 09:02 [facility] [id number]) Out-Patient Physical Therapy Visit Information Visit Information Visit Type Treatment Note Visit Start Time 08:15 Visit Stop Time 09:00 Visit Number 19 Number of SITE CONTROLLER Visits 0 Evaluation Information Evaluation Date 11/03/24 PT-OP-B Current Condition Start: 11/03/24 09:47 Freq: Status: Active Protocol: Document 01/19/25 08:13 SAK (Rec: 01/19/25 09:02 SAK [id number]) Current Condition History of Current Condition Onset Date 09/11/24 Current Complaints right shoulder pain History of Current Condition Fell while visiting sister in [place]; tripped over curb landed on right shoulder. x- ray negative. MRI showed RC tear Saw Dr. Hernández, now going to see Dr. Villalta November 29. Hasn't done any ice or heat. Takes Ibuprofen and Acetaminophen a couple times a day. Pain as high as 8 /10. Unable to reach overhead , out to the side, or behind her back. Can't drive. Has history prior right shoulder pain due to a couple prior falls with RC tears. No surgeries Prior Treatments and Tests 1. Full-thickness rupture of supraspinatus and infraspinatus at their insertions on humeral head with up to 3.7 cm medial retraction of torn tendon fibers to the level of acromioclavicular joint. Mild -to-moderate supraspinatus muscle atrophy and mild infraspinatus muscle atrophy. 2. Low to moderate grade intrasubstance partial- thickness tear involving distal subscapularis. 3. Superior migration of humeral head in relation to glenoid. [id number] acromioclavicular joint osteoarthritis. No acute fracture or dislocation. 4. Suggestion of superior anterior glenoid labral tear. 5. Low-grade partial-thickness tear involving proximal long head of biceps. PT-OP-C Subjective Start: 11/03/24 09:47 Freq: Status: Active Protocol: Document 01/19/25 08:13 SAK (Rec: 01/19/25 09:02 SAK [id number]) OP-PT Subjective Patient Comments Patient Comments Shoulder has been ok, no new c/o. Ordered 1 thick foam to put behind her spine when sitting, likes pool noodle. Hasn't had any Ibuprofen this am, not yesterday either. PT-OP-F Manual Assessment Start: 11/03/24 09:47 Freq: Status: Active Protocol: Document 11/03/24 09:50 SAK (Rec: 11/03/24 15:17 SAK [id number]) Manual Assessments Joint Mobility Assessment Joint Mobility Assessment poorly tolerated right shoulder PT-OP-H Neuro Start: 11/03/24 09:47 Freq: Status: Active Protocol: Document 11/03/24 09:50 SAK (Rec: 11/03/24 15:17 SAK [id number]) Sensation Evaluation Gross Sensation Gross Sensation WNL PT-OP-J Posture/Palpation/Skin Start: 11/03/24 09:47 Freq: Status: Active Protocol: Document 11/03/24 09:50 SAK (Rec: 11/03/24 15:17 SAK [id number]) Posture Evaluation Position Sitting Head/C-Spine Posture C-Spine Flattened T-Spine Posture Increased Kyphosis Scapula Posture (L) Protracted,(R) Protracted Arm Posture (L) Internally Rotated,(R) Internally Rotated Palpation Assessment Location right UT Palpation Findings Soft Tissue Tightness,Muscle Guarding rc insertion Palpation Location R Palpation Findings Muscle Guarding,Tenderness PT-OP-K Range of Motion Start: 11/03/24 09:47 Freq: Status: Active Protocol: Document 11/03/24 09:50 SAK (Rec: 11/03/24 10:38 SAK [id number]) Cervical Spine Range of Motion Cervical Spine Active Comments mod decrease all motions Shoulder Goniometric Range of Motion Shoulder Right Shoulder ROM WFL No Testing Position Sitting Flexion 25 Extension 5 Abduction 40 External Rotation at 0 degrees Abduction 10 Internal Rotation Behind Back (text) anterior hip Left Flexion 145 Extension 10 Abduction 130 External Rotation at 0 degrees Abduction 50 Internal Rotation Behind Back (text) T6 PT-OP-L Special Tests Start: 11/03/24 09:47 Freq: Status: Active Protocol: Document 11/03/24 09:50 SAK (Rec: 11/03/24 15:17 [facility] [id number]) Special Tests Shoulder Special Tests Drop Arm Rotator Cuff Test Results + R PT-OP-Q Treatments Start: 11/03/24 09:47 Freq: Status: Active Protocol: Document 01/19/25 08:13 SAK (Rec: 01/19/25 09:02 [facility] [id number]) Therapeutic Exercises Sidelying Exercises ER Reps/Minutes 5x open book Reps/Minutes 5x2 Comments modified, gentle, cues for thoracic motion Sitting Exercises TB eccentric FF an ABD Sitting Exercise Name added to HEP: FF & ABD- written/drawan on her HOs. Side right Resistance Tb #1 ff, TB #1 ABD Equipment Used seated back to wall, TB anchored in door Reps/Minutes 10 reps each direction Comments cues for pain-free ROM, pain right with full ER Sitting Exercise Name isometric against armrest of orange chair(home) Side right Equipment Used AROM Reps/Minutes 3 reps , pulleys Sitting Exercise Name flexion and scaption, towel roll behind thoracic spine Equipment Used Pulleys Reps/Minutes 10x Comments cues for painfree, plane of scapula for scaption (cue no pinching) Standing Exercises shoulder shrugs, scap squeeze Reps/Minutes 5x shoulder extension Side bilateral Equipment Used TB #3 latex free (teal home) Reps/Minutes 10x 5 Comments cued head up, scap set back/ down con/ecc row Standing Exercise Name Row & Extension Side bilateral Resistance TB #3 latex tree (teal home) Reps/Minutes 12x, denies pain Comments cues body positioning arms straight Manual Therapy Treatment Soft Tissue Mobilization periscap Mobilization Type Myofascial Release,Strumming, Sustained Pressure Intensity/Depth mod right shoulder Body Location anterior deltoid, prox bicep, UT, LS Mobilization Type Rolling,Sustained Pressure, Other Intensity/Depth Moderate Body Position Supine Comments gentle-mod pressure with feedback Self-Care/Home Management Treatment Education Patient Education Home Exercise Program,Pain Management,Posture Other Education cues for neutral posture with activities throughout the day including when patient putting coat in locker PT-OP-R Modalities Start: 11/03/24 09:47 Freq: Status: Active Protocol: Document 01/13/25 08:11 [facility] (Rec: 01/13/25 09:01 [facility] [id number]) Hot Pack/Cold Pack Treatment Heat Comments requested no heat today PT-OP-T Assessment and Plan Start: 11/03/24 09:47 Freq: Status: Active Protocol: Document 01/19/25 08:13 [facility] (Rec: 01/19/25 09:02 [facility] [id number]) Physical Therapy Assessment Impairments Impairments Activity Tolerance,Pain, Posture,ROM,Strength Goals 4 Impairment No HEP Impairment . Short Term Goal (STG) Patient to be instructed in HEP for purposes of right shoulder ROM and strengthening and postural correction 12/09/24: goal met, ongoing progression STG Duration goal met Mcc Goal (LTG) Patient will be independent and compliant with HEP and demonstrate right shoulder ROM WFL and strength at least 4/5 in available ROM 12/23/24: is compliant with HEP , can reach overhead with RUE now but shakey and causes pain if has any weight reachign out to side or over head. 12/30/24: good compliance with HEP, very attentive. Has to make modifications to prevent pain, can't do W or Y laying down; hurts. ROM FF 139, ab 74, ER64. Strength 3-/5 ff, ab,ER, 3+/5 IR, 4/5 ext. LTG Duration 02/01/25 3 Impairment pain as high as 8/10 right shoulder Impairment . Short Term Goal (STG) Decrease pain to no greater than 4/10 with all usual activities 11/25/24: when reaches out to R side with weight has pain but no pain AROM. Has pain 5/10 R shld pain with weakeness hard midrange taking a light 2/5 wt down from [place]. 12/09/24: 2-8/10, worst with holding weight out to side or overhead. 12/23/24: Continues to have pain R shld and is shaky when reaches out to the side 6-7/10 when tries to put dishes up in cupboard with RUE, needs use LUE support. 12/29/24: 4-7 STG Duration 12/24/24 progressing 12/23/24 Mcc Goal (LTG) Decrease pain to no greater than 2/10 with all usual activities LTG Duration 02/01/25 2 Impairment Quickdash UE disability score 75% Impairment . Short Term Goal (STG) Decrease Quickdash score to no greater than 50% as measure of improved right UE function 12/09/24: decreased to % 12/30/24: STG Duration 12/24/24 [employer] Goal (LTG) Decrease score to no greater than 25% as measure of improved right UE function LTG Duration 02/01/25 activity tolerance Impairment unable to reach overhead, out to side, behind her back, unable to drive Impairment lower extremity functional scale (LEFS) 34 Mcc Goal (LTG) Patient will demonstrate improvement in use of right UE sufficient to allow her star comb her hair, feed herself, perform toileting, and drive short distances using right UE . Updated goal be able to open and close doors, lift dishes into and out of cupboard withoutp pain. 11/25/24: progression: can drive better allows R arm help in 4-6 o'clock, can reach behind back approx T10 now, challenge tiring feeding self reps then pain, She can comb hair now with R, wipes back to front with RUE (normal activity performance) discussed trial front to back better hygenic. 12/09/24: can comb hair, get one plate out of cupbord, unable more, self care when toileting still difficult but improved 12/23/24: MET GOAL: able to perform all self hygiene activities. : can reach overhead but no weight tolerated (ie cup, plate). Has to push car door with left, can't move band with attempts LTG Duration 02/01/25 Physical Therapy Plan Frequency and Duration Frequency of Treatment 2x/Week Duration of treatment (weeks) 8 Plan of Care Start Date 12/30/24 Plan of Care End Date 01/30/25 Therapeutic Interventions Therapeutic Interventions Home Exercise Program,Manual Therapy,Patient/Caregiver Education,Self-Care/Home Management,Soft Tissue Mobilization,Taping, Therapeutic Activities, Therapeutic Exercises Modalities Cold Pack/Ice Massage,Electric Stimulation,Hot Packs, Infrared Therapy,Iontophoresis ,Ultrasound Next Visit Focus/Plan Next Note Type Treatment Note Next Visit Plan Continue gentle PT for right shoulder ROM and strengthening , update HEP as indicated. Modalities and manual therapy PRN.
--- NOTE | 2025-01-24 16:00 | PT.OTRE ---
Current Diagnoses Other specific arthropathies, not elsewhere classified, right shoulder (01/24/25) Impingement syndrome of right shoulder (01/24/25) Strain of other muscles, fascia and tendons at shoulder and upper arm level, right arm, initial encounter (01/24/25) Past Medical History (Last Reviewed 07/06/24 @ 06:12 by Zeyad Lai MD) Cancer Cataracts, bilateral (~2015) Chicken pox Chronic hyponatremia Chronic renal failure, stage 3 (moderate) Constipation Cyclothymia Depression Diverticular disease of colon Dysphagia Fecal incontinence (~2014) Fractures (~2004) Gastroesophageal reflux disease with esophagitis Genital warts (~1984) Heart palpitations History of urinary incontinence (~2014) Incomplete left bundle branch block (LBBB) Lumbar spinal stenosis Measles Mixed urge and stress incontinence Osteopenia Osteoporosis, unspecified Overactive bladder Sciatica Urge incontinence Urinary frequency UTI (urinary tract infection) Viral cardiomyopathy Weight loss Surgical History (Last Reviewed 07/06/24 @ 06:12 by Zeyad Lai MD) Anesthesia H/O hernia repair History of vaginal hysterectomy (~1996) Melanoma (~1981) Visit Care Team Role Provider Type Joshua Chin MD Attending Provider Physician Family Provider Primary Care Provider Referring Provider Specialty: Internal Medicine Address: [address] [place] [address], [address], [facility] Email: [email or web address] Physical Therapy Re-Evaluation PT-OP-A Visit Information Start: 11/03/24 09:47 Freq: Status: Active Protocol: Document 01/24/25 08:24 [facility] (Rec: 01/24/25 08:58 [facility] [id number]) Out-Patient Physical Therapy Visit Information Visit Information Visit Type Treatment Note Visit Start Time 08:15 Visit Stop Time 09:00 Visit Number 20 Number of TAX COMPLIANCE OFFICER Visits 0 Evaluation Information Evaluation Date 11/03/24 PT-OP-B Current Condition Start: 11/03/24 09:47 Freq: Status: Active Protocol: Document 01/24/25 08:24 [facility] (Rec: 01/24/25 08:58 [facility] [id number]) Current Condition History of Current Condition Onset Date 09/11/24 Current Complaints right shoulder pain History of Current Condition Fell while visiting sister in [place]; tripped over curb landed on right shoulder. x- ray negative. MRI showed RC tear Saw Dr. Hernández, now going to see Dr. Villalta November 29. Hasn't done any ice or heat. Takes Ibuprofen and Acetaminophen a couple times a day. Pain as high as 8 /10. Unable to reach overhead , out to the side, or behind her back. Can't drive. Has history prior right shoulder pain due to a couple prior falls with RC tears. No surgeries Prior Treatments and Tests 1. Full-thickness rupture of supraspinatus and infraspinatus at their insertions on humeral head with up to 3.7 cm medial retraction of torn tendon fibers to the level of acromioclavicular joint. Mild -to-moderate supraspinatus muscle atrophy and mild infraspinatus muscle atrophy. 2. Low to moderate grade intrasubstance partial- thickness tear involving distal subscapularis. 3. Superior migration of humeral head in relation to glenoid. [id number] acromioclavicular joint osteoarthritis. No acute fracture or dislocation. 4. Suggestion of superior anterior glenoid labral tear. 5. Low-grade partial-thickness tear involving proximal long head of biceps. PT-OP-C Subjective Start: 11/03/24 09:47 Freq: Status: Active Protocol: Document 01/24/25 08:24 [facility] (Rec: 01/24/25 08:58 [facility] [id number]) OP-PT Subjective Patient Comments Patient Comments Thinks slept wrong on shoulder , a little more sore today. Still difficult to lift anything overhead or use any force (ie opening door) with arm to side. Compliant to HEP PT-OP-F Manual Assessment Start: 11/03/24 09:47 Freq: Status: Active Protocol: Document 11/03/24 09:50 [facility] (Rec: 11/03/24 15:17 [facility] [id number]) Manual Assessments Joint Mobility Assessment Joint Mobility Assessment poorly tolerated right shoulder PT-OP-H Neuro Start: 11/03/24 09:47 Freq: Status: Active Protocol: Document 11/03/24 09:50 [facility] (Rec: 11/03/24 15:17 [facility] [id number]) Sensation Evaluation Gross Sensation Gross Sensation WNL PT-OP-J Posture/Palpation/Skin Start: 11/03/24 09:47 Freq: Status: Active Protocol: Document 11/03/24 09:50 [facility] (Rec: 11/03/24 15:17 [facility] [id number]) Posture Evaluation Position Sitting Head/C-Spine Posture C-Spine Flattened T-Spine Posture Increased Kyphosis Scapula Posture (L) Protracted,(R) Protracted Arm Posture (L) Internally Rotated,(R) Internally Rotated Palpation Assessment Location right UT Palpation Findings Soft Tissue Tightness,Muscle Guarding rc insertion Palpation Location R Palpation Findings Muscle Guarding,Tenderness PT-OP-K Range of Motion Start: 11/03/24 09:47 Freq: Status: Active Protocol: Document 11/03/24 09:50 [facility] (Rec: 11/03/24 10:38 [facility] [id number]) Cervical Spine Range of Motion Cervical Spine Active Comments mod decrease all motions Shoulder Goniometric Range of Motion Shoulder Measured in Degrees Right Shoulder ROM WFL No Testing Position Sitting Flexion 25 Extension 5 Abduction 40 External Rotation at 0 degrees Abduction 10 Internal Rotation Behind Back (text) anterior hip Left Flexion 145 Extension 10 Abduction 130 External Rotation at 0 degrees Abduction 50 Internal Rotation Behind Back (text) T6 PT-OP-L Special Tests Start: 11/03/24 09:47 Freq: Status: Active Protocol: Document 11/03/24 09:50 [facility] (Rec: 11/03/24 15:17 [facility] [id number]) Special Tests Shoulder Special Tests Drop Arm Rotator Cuff Test Results + R PT-OP-Q Treatments Start: 11/03/24 09:47 Freq: Status: Active Protocol: Document 01/24/25 08:24 [facility] (Rec: 01/24/25 08:58 [facility] [id number]) Cardio Equipment Recumbent Stepper (Sci-Fit) Duration (Minutes) 5 Resistance 2.5 Seat Position 8 Therapeutic Exercises Supine Exercises pec stretch Supine Exercise Name manual Reps/Minutes 1 min Comments arms at sides shoulder ER Side right Resistance AAROM isometrics 90/90 Supine Exercise Name shld elevation 90 deg Resistance gentle manual resistance all directions Reps/Minutes 1 min chest press Equipment Used wand Reps/Minutes 10x Sidelying Exercises ER Reps/Minutes 5x open book Reps/Minutes 5x2 Comments modified, gentle, cues for thoracic motion Sitting Exercises TB eccentric FF an ABD Sitting Exercise Name added to HEP: FF & ABD- written/drawan on her HOs. Side right Resistance Tb #1 ff, TB #1 ABD Equipment Used seated back to wall, TB anchored in door Reps/Minutes 10 reps each direction Comments cues for pain-free ROM, pain right with full pulleys Sitting Exercise Name flexion and scaption, sm pool noodle behind thoracic spine Equipment Used Pulleys Reps/Minutes 10x Comments cues for painfree, plane of scapula for scaption (cue no pinching) Standing Exercises sh ext Equipment Used wand Reps/Minutes 10x Comments palms bckwrd overhead press Standing Exercise Name standing Side bilateral Resistance AROM, 1/2 lb bar Equipment Used front mirror Reps/Minutes 10 reps bicep curl Standing Exercise Name palm up Side bilateral Equipment Used 1# Reps/Minutes 10x shoulder extension Side bilateral Equipment Used TB #3 latex free (teal home) Reps/Minutes 10x 5 Comments cued head up, scap set back/ down con/ecc row Standing Exercise Name Row & Extension Side bilateral Resistance TB #3 latex tree (teal home) Reps/Minutes 12x, denies pain Comments cues body positioning arms straight Manual Therapy Treatment Soft Tissue Mobilization periscap Mobilization Type Myofascial Release,Strumming, Sustained Pressure Intensity/Depth mod right shoulder Body Location anterior deltoid, prox bicep, UT, LS Mobilization Type Rolling,Sustained Pressure, Other Intensity/Depth Moderate Body Position Supine Comments gentle-mod pressure with feedback Self-Care/Home Management Treatment Education Patient Education Body Mechanics,Home Exercise Program,Posture Other Education again cued patient for long spine, short lever when putting purse away start of session PT-OP-R Modalities Start: 11/03/24 09:47 Freq: Status: Active Protocol: Document 01/13/25 08:11 [facility] (Rec: 01/13/25 09:01 [facility] [id number]) Hot Pack/Cold Pack Treatment Heat Comments requested no heat today PT-OP-T Assessment and Plan Start: 11/03/24 09:47 Freq: Status: Active Protocol: Document 01/24/25 08:24 [facility] (Rec: 01/24/25 08:58 [facility] [id number]) Physical Therapy Assessment Impairments Impairments Activity Tolerance,Pain, Posture,ROM,Strength Goals 4 Impairment No HEP Impairment . Short Term Goal (STG) Patient to be instructed in HEP for purposes of right shoulder ROM and strengthening and postural correction 12/09/24: goal met, ongoing progression STG Duration goal met Senior Living Goal (LTG) Patient will be independent and compliant with HEP and demonstrate right shoulder ROM WFL and strength at least 4/5 in available ROM 12/23/24: is compliant with HEP , can reach overhead with RUE now but shakey and causes pain if has any weight reachign out to side or over head. 12/30/24: good compliance with HEP, very attentive. Has to make modifications to prevent pain, can't do W or Y laying down; hurts. ROM FF 139, ab 74, ER64. Strength 3-/5 ff, ab,ER, 3+/5 IR, 4/5 ext. LTG Duration 02/01/25 3 Impairment pain as high as 8/10 right shoulder Impairment . Short Term Goal (STG) Decrease pain to no greater than 4/10 with all usual activities 11/25/24: when reaches out to R side with weight has pain but no pain AROM. Has pain 5/10 R shld pain with weakeness hard midrange taking a light 2/5 wt down from [place]. 12/09/24: 2-8/10, worst with holding weight out to side or overhead. 12/23/24: Continues to have pain R shld and is shaky when reaches out to the side 6-7/10 when tries to put dishes up in cupboard with RUE, needs use LUE support. 12/29/24: 4-7 STG Duration 12/24/24 progressing 12/23/24 Senior Living Goal (LTG) Decrease pain to no greater than 2/10 with all usual activities LTG Duration 02/01/25 2 Impairment Quickdash UE disability score 75% Impairment . Short Term Goal (STG) Decrease Quickdash score to no greater than 50% as measure of improved right UE function 12/09/24: decreased to 60% 12/30/24:decreased to 56 01/24/25: STG Duration 12/24/24 Superintendent Transmission Goal (LTG) Decrease score to no greater than 25% as measure of improved right UE function LTG Duration 02/01/25 activity tolerance Impairment unable to reach overhead, out to side, behind her back, unable to drive Impairment lower extremity functional scale (LEFS) 34 Superintendent Transmission Goal (LTG) Patient will demonstrate improvement in use of right UE sufficient to allow her star comb her hair, feed herself, perform toileting, and drive short distances using right UE . Updated goal be able to open and close doors, lift dishes into and out of cupboard withoutp pain. 11/25/24: progression: can drive better allows R arm help in 4-6 o'clock, can reach behind back approx T10 now, challenge tiring feeding self reps then pain, She can comb hair now with R, wipes back to front with RUE (normal activity performance) discussed trial front to back better hygenic. 12/09/24: can comb hair, get one plate out of cupbord, unable more, self care when toileting still difficult but improved 12/23/24: MET GOAL: able to perform all self hygiene activities. : can reach overhead but no weight tolerated (ie cup, plate). Has to push car door with left, can't move band with attempts LTG Duration 02/01/25 Progress Towards Goals Progress Towards Goals Progressing Toward Goals Assessment Summary Assessment Good goal progress , modified treatment due to patient symptoms, low elke reaching overhead with anything more than weight of arm or reaching to side with resistance (ie pushing door open). Good compliance to HEP. REcommend 3 further PT visits then transition to independent HEP and commuity exercise program. Physical Therapy Plan Frequency and Duration Frequency of Treatment 3 Duration of treatment (weeks) 4 Plan of Care Start Date 01/24/25 Plan of Care End Date 02/23/25 Therapeutic Interventions Therapeutic Interventions Home Exercise Program,Manual Therapy,Patient/Caregiver Education,Self-Care/Home Management,Soft Tissue Mobilization,Taping, Therapeutic Activities, Therapeutic Exercises Modalities Cold Pack/Ice Massage,Electric Stimulation,Hot Packs, Infrared Therapy,Iontophoresis ,Ultrasound Next Visit Focus/Plan Next Note Type Treatment Note Next Visit Plan Continue gentle PT for right shoulder ROM and strengthening , update HEP as indicated. Modalities and manual therapy PRN. Discharge to self care and community exercise after 3 more PT visits
--- NOTE | 2025-01-27 14:14 | PT.OTN ---
Current Diagnoses Other specific arthropathies, not elsewhere classified, right shoulder (01/27/25) Impingement syndrome of right shoulder (01/27/25) Strain of other muscles, fascia and tendons at shoulder and upper arm level, right arm, initial encounter (01/27/25) Physical Therapy Treatment Note PT-OP-A Visit Information Start: 11/03/24 09:47 Freq: Status: Active Protocol: Document 01/27/25 09:02 [facility] (Rec: 01/27/25 09:45 [facility] [id number]) Out-Patient Physical Therapy Visit Information Visit Information Visit Type Treatment Note Visit Start Time 09:00 Visit Stop Time 09:55 Visit Number 20 Number of BRADDER Visits 0 Evaluation Information Evaluation Date 11/03/24 PT-OP-B Current Condition Start: 11/03/24 09:47 Freq: Status: Active Protocol: Document 01/27/25 09:02 [facility] (Rec: 01/27/25 09:45 [facility] [id number]) Current Condition History of Current Condition Onset Date 09/11/24 Current Complaints right shoulder pain History of Current Condition Fell while visiting sister in [place]; tripped over curb landed on right shoulder. x- ray negative. MRI showed RC tear Saw Dr. Hernández, now going to see Dr. Vilallta November 29. Hasn't done any ice or heat. Takes Ibuprofen and Acetaminophen a couple times a day. Pain as high as 8 /10. Unable to reach overhead , out to the side, or behind her back. Can't drive. Has history prior right shoulder pain due to a couple prior falls with RC tears. No surgeries Prior Treatments and Tests 1. Full-thickness rupture of supraspinatus and infraspinatus at their insertions on humeral head with up to 3.7 cm medial retraction of torn tendon fibers to the level of acromioclavicular joint. Mild -to-moderate supraspinatus muscle atrophy and mild infraspinatus muscle atrophy. 2. Low to moderate grade intrasubstance partial- thickness tear involving distal subscapularis. 3. Superior migration of humeral head in relation to glenoid. [id number] acromioclavicular joint osteoarthritis. No acute fracture or dislocation. 4. Suggestion of superior anterior glenoid labral tear. 5. Low-grade partial-thickness tear involving proximal long head of biceps. PT-OP-C Subjective Start: 11/03/24 09:47 Freq: Status: Active Protocol: Document 01/27/25 09:02 [facility] (Rec: 01/27/25 09:45 [facility] [id number]) OP-PT Subjective Patient Comments Patient Comments Reports her back is killing her, has been really busy this week. PT-OP-F Manual Assessment Start: 11/03/24 09:47 Freq: Status: Active Protocol: Document 11/03/24 09:50 [facility] (Rec: 11/03/24 15:17 [facility] [id number]) Manual Assessments Joint Mobility Assessment Joint Mobility Assessment poorly tolerated right shoulder PT-OP-H Neuro Start: 11/03/24 09:47 Freq: Status: Active Protocol: Document 11/03/24 09:50 [facility] (Rec: 11/03/24 15:17 [facility] [id number]) Sensation Evaluation Gross Sensation Gross Sensation WNL PT-OP-J Posture/Palpation/Skin Start: 11/03/24 09:47 Freq: Status: Active Protocol: Document 11/03/24 09:50 [facility] (Rec: 11/03/24 15:17 [facility] [id number]) Posture Evaluation Position Sitting Head/C-Spine Posture C-Spine Flattened T-Spine Posture Increased Kyphosis Scapula Posture (L) Protracted,(R) Protracted Arm Posture (L) Internally Rotated,(R) Internally Rotated Palpation Assessment Location right UT Palpation Findings Soft Tissue Tightness,Muscle Guarding rc insertion Palpation Location R Palpation Findings Muscle Guarding,Tenderness PT-OP-K Range of Motion Start: 11/03/24 09:47 Freq: Status: Active Protocol: Document 11/03/24 09:50 [facility] (Rec: 11/03/24 10:38 [facility] [id number]) Cervical Spine Range of Motion Cervical Spine Active Comments mod decrease all motions Shoulder Goniometric Range of Motion Shoulder Right Shoulder ROM WFL No Testing Position Sitting Flexion 25 Extension 5 Abduction 40 External Rotation at 0 degrees Abduction 10 Internal Rotation Behind Back (text) anterior hip Left Flexion 145 Extension 10 Abduction 130 External Rotation at 0 degrees Abduction 50 Internal Rotation Behind Back (text) T6 PT-OP-L Special Tests Start: 11/03/24 09:47 Freq: Status: Active Protocol: Document 11/03/24 09:50 [facility] (Rec: 11/03/24 15:17 [facility] [id number]) Special Tests Shoulder Special Tests Drop Arm Rotator Cuff Test Results + R PT-OP-Q Treatments Start: 11/03/24 09:47 Freq: Status: Active Protocol: Document 01/27/25 09:02 [facility] (Rec: 01/27/25 09:45 [facility] [id number]) Therapeutic Exercises Supine Exercises posture press Reps/Minutes 10x serratus punch Reps/Minutes 10x Comments palms toward eachother shoulder ER Side right Resistance AAROM isometrics 90/90 Supine Exercise Name shld elevation 90 deg Resistance gentle manual resistance all directions Reps/Minutes 1 min chest press Equipment Used wand Reps/Minutes 10x Sidelying Exercises ER Reps/Minutes 10x Comments cues to activate rhomboids Sitting Exercises thoracic ext Sitting Exercise Name cat/cow Reps/Minutes 5x Standing Exercises wall posture Standing Exercise Name with pull aways Reps/Minutes 4 min Comments cues for start abdominals, then sh bl, sh. chin tuck Manual Therapy Treatment Consent Patient gave verbal consent for manual Yes treatment Soft Tissue Mobilization periscap Mobilization Type Myofascial Release,Strumming, Sustained Pressure Intensity/Depth mod Body Position Sidelying right shoulder Body Location anterior deltoid, prox bicep, UT, LS Mobilization Type Rolling,Sustained Pressure, Other Intensity/Depth Moderate Body Position Supine Comments gentle-mod pressure with feedback Self-Care/Home Management Treatment Education Patient Education Body Mechanics,Home Exercise Program,Posture PT-OP-R Modalities Start: 11/03/24 09:47 Freq: Status: Active Protocol: Document 01/27/25 09:02 [facility] (Rec: 01/27/25 09:45 [facility] [id number]) Hot Pack/Cold Pack Treatment Heat Patient Position Supine Patient Tolerance Good PT-OP-T Assessment and Plan Start: 11/03/24 09:47 Freq: Status: Active Protocol: Document 01/27/25 09:02 [facility] (Rec: 01/27/25 09:45 [facility] [id number]) Physical Therapy Assessment Impairments Impairments Activity Tolerance,Pain, Posture,ROM,Strength Goals 4 Impairment No HEP Impairment . Short Term Goal (STG) Patient to be instructed in HEP for purposes of right shoulder ROM and strengthening and postural correction 12/09/24: goal met, ongoing progression STG Duration goal met Retirement Goal (LTG) Patient will be independent and compliant with HEP and demonstrate right shoulder ROM WFL and strength at least 4/5 in available ROM 12/23/24: is compliant with HEP , can reach overhead with RUE now but shakey and causes pain if has any weight reachign out to side or over head. 12/30/24: good compliance with HEP, very attentive. Has to make modifications to prevent pain, can't do W or Y laying down; hurts. ROM FF 139, ab 74, ER64. Strength 3-/5 ff, ab,ER, 3+/5 IR, 4/5 ext. LTG Duration 02/23/25 3 Impairment pain as high as 8/10 right shoulder Impairment . Short Term Goal (STG) Decrease pain to no greater than 4/10 with all usual activities 11/25/24: when reaches out to R side with weight has pain but no pain AROM. Has pain 5/10 R shld pain with weakeness hard midrange taking a light 2/5 wt down from [place]. 12/09/24: 2-8/10, worst with holding weight out to side or overhead. 12/23/24: Continues to have pain R shld and is shaky when reaches out to the side 6-7/10 when tries to put dishes up in cupboard with RUE, needs use LUE support. 12/29/24: 4-7 STG Duration 12/24/24 progressing 12/23/24 Banquet Coordinator Goal (LTG) Decrease pain to no greater than 2/10 with all usual activities LTG Duration 02/23/25 2 Impairment Quickdash UE disability score 75% Impairment . Short Term Goal (STG) Decrease Quickdash score to no greater than 50% as measure of improved right UE function 12/09/24: decreased to 60% 12/30/24:decreased to 56 01/24/25: 54% STG Duration 12/24/24 Retirement Goal (LTG) Decrease score to no greater than 25% as measure of improved right UE function LTG Duration 02/23/25 activity tolerance Impairment unable to reach overhead, out to side, behind her back, unable to drive Impairment lower extremity functional scale (LEFS) 34 Banquet Coordinator Goal (LTG) Patient will demonstrate improvement in use of right UE sufficient to allow her star comb her hair, feed herself, perform toileting, and drive short distances using right UE . Updated goal be able to open and close doors, lift dishes into and out of cupboard withoutp pain. 11/25/24: progression: can drive better allows R arm help in 4-6 o'clock, can reach behind back approx T10 now, challenge tiring feeding self reps then pain, She can comb hair now with R, wipes back to front with RUE (normal activity performance) discussed trial front to back better hygenic. 12/09/24: can comb hair, get one plate out of cupbord, unable more, self care when toileting still difficult but improved 12/23/24: MET GOAL: able to perform all self hygiene activities. : can reach overhead but no weight tolerated (ie cup, plate). Has to push car door with left, can't move band with attempts LTG Duration 02/23/25 Assessment Summary Assessment Emphasis on postural alignment for improved shoulder function and spine health. Increased supine exercises for improved comfort today. Physical Therapy Plan Frequency and Duration Frequency of Treatment 3 Duration of treatment (weeks) 4 Plan of Care Start Date 01/24/25 Plan of Care End Date 02/23/25 Therapeutic Interventions Therapeutic Interventions Home Exercise Program,Manual Therapy,Patient/Caregiver Education,Self-Care/Home Management,Soft Tissue Mobilization,Taping, Therapeutic Activities, Therapeutic Exercises Modalities Cold Pack/Ice Massage,Electric Stimulation,Hot Packs, Infrared Therapy,Iontophoresis ,Ultrasound Next Visit Focus/Plan Next Note Type Treatment Note Next Visit Plan Continue gentle PT for right shoulder ROM and strengthening , update HEP as indicated. Modalities and manual therapy PRN. Discharge to self care and community exercise after 2 more PT visits
--- NOTE | 2025-02-03 12:11 | PT.OTN ---
Current Diagnoses Other specific arthropathies, not elsewhere classified, right shoulder (02/03/25) Impingement syndrome of right shoulder (02/03/25) Strain of other muscles, fascia and tendons at shoulder and upper arm level, right arm, initial encounter (02/03/25) Physical Therapy Treatment Note PT-OP-A Visit Information Start: 11/03/24 09:47 Freq: Status: Active Protocol: Document 02/03/25 09:46 SAK (Rec: 02/03/25 10:31 SAK Laptop) Out-Patient Physical Therapy Visit Information Visit Information Visit Type Treatment Note Visit Start Time 09:46 Visit Stop Time 10:32 Visit Number 21 Number of DIRECTOR OF OUTPATIENT SERVICES Visits 0 Evaluation Information Evaluation Date 11/03/24 PT-OP-B Current Condition Start: 11/03/24 09:47 Freq: Status: Active Protocol: Document 02/03/25 09:46 SAK (Rec: 02/03/25 10:31 SAK Laptop) Current Condition History of Current Condition Onset Date 09/11/24 Current Complaints right shoulder pain History of Current Condition Fell while visiting sister in [place]; tripped over curb landed on right shoulder. x- ray negative. MRI showed RC tear Saw Dr. Hernández, now going to see Dr. Villalta November 29. Hasn't done any ice or heat. Takes Ibuprofen and Acetaminophen a couple times a day. Pain as high as 8 /10. Unable to reach overhead , out to the side, or behind her back. Can't drive. Has history prior right shoulder pain due to a couple prior falls with RC tears. No surgeries Prior Treatments and Tests 1. Full-thickness rupture of supraspinatus and infraspinatus at their insertions on humeral head with up to 3.7 cm medial retraction of torn tendon fibers to the level of acromioclavicular joint. Mild -to-moderate supraspinatus muscle atrophy and mild infraspinatus muscle atrophy. 2. Low to moderate grade intrasubstance partial- thickness tear involving distal subscapularis. 3. Superior migration of humeral head in relation to glenoid. Avyv-[id number]-[id number] acromioclavicular joint osteoarthritis. No acute fracture or dislocation. 4. Suggestion of superior anterior glenoid labral tear. 5. Low-grade partial-thickness tear involving proximal long head of biceps. PT-OP-C Subjective Start: 11/03/24 09:47 Freq: Status: Active Protocol: Document 02/03/25 09:46 SAK (Rec: 02/03/25 10:31 SAK Laptop) OP-PT Subjective Patient Comments Patient Comments Has questions about wall pull aways with wall posture PT-OP-F Manual Assessment Start: 11/03/24 09:47 Freq: Status: Active Protocol: Document 11/03/24 09:50 SAK (Rec: 11/03/24 15:17 SAK [id number]) Manual Assessments Joint Mobility Assessment Joint Mobility Assessment poorly tolerated right shoulder PT-OP-H Neuro Start: 11/03/24 09:47 Freq: Status: Active Protocol: Document 11/03/24 09:50 SAK (Rec: 11/03/24 15:17 SAK [id number]) Sensation Evaluation Gross Sensation Gross Sensation WNL PT-OP-J Posture/Palpation/Skin Start: 11/03/24 09:47 Freq: Status: Active Protocol: Document 11/03/24 09:50 SAK (Rec: 11/03/24 15:17 SAK [id number]) Posture Evaluation Position Sitting Head/C-Spine Posture C-Spine Flattened T-Spine Posture Increased Kyphosis Scapula Posture (L) Protracted,(R) Protracted Arm Posture (L) Internally Rotated,(R) Internally Rotated Palpation Assessment Location right UT Palpation Findings Soft Tissue Tightness,Muscle Guarding rc insertion Palpation Location R Palpation Findings Muscle Guarding,Tenderness PT-OP-K Range of Motion Start: 11/03/24 09:47 Freq: Status: Active Protocol: Document 11/03/24 09:50 SAK (Rec: 11/03/24 10:38 SAK [id number]) Cervical Spine Range of Motion Cervical Spine Active Comments mod decrease all motions Shoulder Goniometric Range of Motion Shoulder Right Shoulder ROM WFL No Testing Position Sitting Flexion 25 Extension 5 Abduction 40 External Rotation at 0 degrees Abduction 10 Internal Rotation Behind Back (text) anterior hip Left Flexion 145 Extension 10 Abduction 130 External Rotation at 0 degrees Abduction 50 Internal Rotation Behind Back (text) T6 PT-OP-L Special Tests Start: 11/03/24 09:47 Freq: Status: Active Protocol: Document 11/03/24 09:50 SAK (Rec: 11/03/24 15:17 SAK [id number]) Special Tests Shoulder Special Tests Drop Arm Rotator Cuff Test Results + R PT-OP-Q Treatments Start: 11/03/24 09:47 Freq: Status: Active Protocol: Document 02/03/25 09:46 [facility] (Rec: 02/03/25 10:31 [facility] Laptop) Therapeutic Exercises Supine Exercises shoulder ER Side right Resistance AAROM Equipment Used towel roll chest press Equipment Used wand Reps/Minutes 10x Sidelying Exercises ER Reps/Minutes 10x Comments cues to activate rhomboids open book Reps/Minutes 5x2 Comments modified, gentle, cues for thoracic motion Standing Exercises wall push up Standing Exercise Name reviewed; cues to keep shoulders down Side bilateral Reps/Minutes 8x Comments cued head up, allow shoulder blades glide, adjust distance from the wall Ys off wall Standing Exercise Name Ys with thumbs up Side bilateral Resistance AROM Equipment Used wall slides then lift off Reps/Minutes 10x, fatigued Comments good form, tiring but no pain today 01/06/25 wall posture Standing Exercise Name with pull aways Reps/Minutes 4 min Comments cues for start abdominals, then sh bl, sh. chin tuck shoulder extension Side bilateral Equipment Used TB #3 latex free (teal home) Reps/Minutes 10x 5 Comments cued head up, scap set back/ down con/ecc row Standing Exercise Name Row & Extension Side bilateral Resistance TB #3 latex tree (teal home) Reps/Minutes 12x, denies pain Comments cues body positioning arms straight Manual Therapy Treatment Soft Tissue Mobilization periscap Mobilization Type Myofascial Release,Strumming, Sustained Pressure Intensity/Depth mod Body Position Sidelying right shoulder Body Location anterior deltoid, prox bicep, UT, LS Mobilization Type Rolling,Sustained Pressure, Other Intensity/Depth Moderate Body Position Supine Comments gentle-mod pressure with feedback Self-Care/Home Management Treatment Education Patient Education Body Mechanics,Home Exercise Program,Posture Other Education updated HEP HO adding IR and ER with TB PT-OP-R Modalities Start: 11/03/24 09:47 Freq: Status: Active Protocol: Document 01/27/25 09:02 [facility] (Rec: 01/27/25 09:45 [facility] [id number]) Hot Pack/Cold Pack Treatment Heat Patient Position Supine Patient Tolerance Good PT-OP-T Assessment and Plan Start: 11/03/24 09:47 Freq: Status: Active Protocol: Document 02/03/25 09:46 [facility] (Rec: 02/03/25 10:31 SAK Laptop) Physical Therapy Assessment Impairments Impairments Activity Tolerance,Pain, Posture,ROM,Strength Goals 4 Impairment No HEP Impairment . Short Term Goal (STG) Patient to be instructed in HEP for purposes of right shoulder ROM and strengthening and postural correction 12/09/24: goal met, ongoing progression STG Duration goal met Employee Development Director Goal (LTG) Patient will be independent and compliant with HEP and demonstrate right shoulder ROM WFL and strength at least 4/5 in available ROM 12/23/24: is compliant with HEP , can reach overhead with RUE now but shakey and causes pain if has any weight reachign out to side or over head. 12/30/24: good compliance with HEP, very attentive. Has to make modifications to prevent pain, can't do W or Y laying down; hurts. ROM FF 139, ab 74, ER64. Strength 3-/5 ff, ab,ER, 3+/5 IR, 4/5 ext. LTG Duration 02/23/25 3 Impairment pain as high as 8/10 right shoulder Impairment . Short Term Goal (STG) Decrease pain to no greater than 4/10 with all usual activities 11/25/24: when reaches out to R side with weight has pain but no pain AROM. Has pain 5/10 R shld pain with weakeness hard midrange taking a light 2/5 wt down from [place]. 12/09/24: 2-8/10, worst with holding weight out to side or overhead. 12/23/24: Continues to have pain R shld and is shaky when reaches out to the side 6-7/10 when tries to put dishes up in cupboard with RUE, needs use LUE support. 12/29/24: 4-7 STG Duration 12/24/24 progressing 12/23/24 [facility] Goal (LTG) Decrease pain to no greater than 2/10 with all usual activities LTG Duration 02/23/25 2 Impairment Quickdash UE disability score 75% Impairment . Short Term Goal (STG) Decrease Quickdash score to no greater than 50% as measure of improved right UE function 12/09/24: decreased to 60% 12/30/24:decreased to 56 01/24/25: 54% STG Duration 12/24/24 Employee Development Director Goal (LTG) Decrease score to no greater than 25% as measure of improved right UE function LTG Duration 02/23/25 activity tolerance Impairment unable to reach overhead, out to side, behind her back, unable to drive Impairment lower extremity functional scale (LEFS) 34 Employee Development Director Goal (LTG) Patient will demonstrate improvement in use of right UE sufficient to allow her star comb her hair, feed herself, perform toileting, and drive short distances using right UE . Updated goal be able to open and close doors, lift dishes into and out of cupboard withoutp pain. 11/25/24: progression: can drive better allows R arm help in 4-6 o'clock, can reach behind back approx T10 now, challenge tiring feeding self reps then pain, She can comb hair now with R, wipes back to front with RUE (normal activity performance) discussed trial front to back better hygenic. 12/09/24: can comb hair, get one plate out of cupbord, unable more, self care when toileting still difficult but improved 12/23/24: MET GOAL: able to perform all self hygiene activities. : can reach overhead but no weight tolerated (ie cup, plate). Has to push car door with left, can't move band with attempts LTG Duration 02/23/25 Progress Towards Goals Progress Towards Goals Progressing Toward Goals Assessment Summary Assessment Patient highly compliant to HEP, required cues and some modifications to HEP performance, added sh IR and ER with TB to HEP today. Structural changes in neck and shoulders impact ability to progress. Most difficulty with reaching out to side reporting severe increase in pain. Physical Therapy Plan Frequency and Duration Frequency of Treatment 3 Duration of treatment (weeks) 4 Plan of Care Start Date 01/24/25 Plan of Care End Date 02/23/25 Therapeutic Interventions Therapeutic Interventions Home Exercise Program,Manual Therapy,Patient/Caregiver Education,Self-Care/Home Management,Soft Tissue Mobilization,Taping, Therapeutic Activities, Therapeutic Exercises Modalities Cold Pack/Ice Massage,Electric Stimulation,Hot Packs, Infrared Therapy,Iontophoresis ,Ultrasound Next Visit Focus/Plan Next Note Type Treatment Note Next Visit Plan Continue gentle PT for right shoulder ROM and strengthening , update HEP as indicated. Modalities and manual therapy PRN. Discharge to self care and community exercise after 1 more PT visit
--- NOTE | 2025-02-07 08:09 | PT.OPDS ---
Current Diagnoses Other specific arthropathies, not elsewhere classified, right shoulder (02/03/25) Impingement syndrome of right shoulder (02/03/25) Strain of other muscles, fascia and tendons at shoulder and upper arm level, right arm, initial encounter (02/03/25) Visit Care Team Role Provider Type Joshua Chin MD Attending Provider Physician Family Provider Primary Care Provider Referring Provider Specialty: Internal Medicine Address: [address] [place] [address], [address], [facility] Email: [email or web address] Visit Number Visit Number 21 Discharge Summary PT-OP-B Current Condition Start: 11/03/24 09:47 Freq: Status: Active Protocol: Document 02/03/25 09:46 SAK (Rec: 02/03/25 10:31 SAK Laptop) Current Condition History of Current Condition Onset Date 09/11/24 Current Complaints right shoulder pain History of Current Condition Fell while visiting sister in [place]; tripped over curb landed on right shoulder. x- ray negative. MRI showed RC tear Saw Dr. Hernnádez, now going to see Dr. Villalta November 29. Hasn't done any ice or heat. Takes Ibuprofen and Acetaminophen a couple times a day. Pain as high as 8 /10. Unable to reach overhead , out to the side, or behind her back. Can't drive. Has history prior right shoulder pain due to a couple prior falls with RC tears. No surgeries Prior Treatments and Tests 1. Full-thickness rupture of supraspinatus and infraspinatus at their insertions on humeral head with up to 3.7 cm medial retraction of torn tendon fibers to the level of acromioclavicular joint. Mild -to-moderate supraspinatus muscle atrophy and mild infraspinatus muscle atrophy. 2. Low to moderate grade intrasubstance partial- thickness tear involving distal subscapularis. 3. Superior migration of humeral head in relation to glenoid. [id number] acromioclavicular joint osteoarthritis. No acute fracture or dislocation. 4. Suggestion of superior anterior glenoid labral tear. 5. Low-grade partial-thickness tear involving proximal long head of biceps. PT-OP-C Subjective Start: 11/03/24 09:47 Freq: Status: Active Protocol: Document 02/03/25 09:46 SAK (Rec: 02/03/25 10:31 SAK Laptop) OP-PT Subjective Patient Comments Patient Comments Has questions about wall pull aways with wall posture PT-OP-F Manual Assessment Start: 11/03/24 09:47 Freq: Status: Active Protocol: Document 11/03/24 09:50 SAK (Rec: 11/03/24 15:17 SAK [id number]) Manual Assessments Joint Mobility Assessment Joint Mobility Assessment poorly tolerated right shoulder PT-OP-H Neuro Start: 11/03/24 09:47 Freq: Status: Active Protocol: Document 11/03/24 09:50 SAK (Rec: 11/03/24 15:17 SAK [id number]) Sensation Evaluation Gross Sensation Gross Sensation WNL PT-OP-J Posture/Palpation/Skin Start: 11/03/24 09:47 Freq: Status: Active Protocol: Document 11/03/24 09:50 SAK (Rec: 11/03/24 15:17 SAK [id number]) Posture Evaluation Position Sitting Head/C-Spine Posture C-Spine Flattened T-Spine Posture Increased Kyphosis Scapula Posture (L) Protracted,(R) Protracted Arm Posture (L) Internally Rotated,(R) Internally Rotated Palpation Assessment Location right UT Palpation Findings Soft Tissue Tightness,Muscle Guarding rc insertion Palpation Location R Palpation Findings Muscle Guarding,Tenderness PT-OP-K Range of Motion Start: 11/03/24 09:47 Freq: Status: Active Protocol: Document 11/03/24 09:50 SAK (Rec: 11/03/24 10:38 SAK [id number]) Cervical Spine Range of Motion Cervical Spine Active Comments mod decrease all motions Shoulder Goniometric Range of Motion Shoulder Right Shoulder ROM WFL No Testing Position Sitting Flexion 25 Extension 5 Abduction 40 External Rotation at 0 degrees Abduction 10 Internal Rotation Behind Back (text) anterior hip Left Flexion 145 Extension 10 Abduction 130 External Rotation at 0 degrees Abduction 50 Internal Rotation Behind Back (text) T6 PT-OP-L Special Tests Start: 11/03/24 09:47 Freq: Status: Active Protocol: Document 11/03/24 09:50 SAK (Rec: 11/03/24 15:17 SAK [id number]) Special Tests Shoulder Special Tests Drop Arm Rotator Cuff Test Results + R PT-OP-T Assessment and Plan Start: 11/03/24 09:47 Freq: Status: Active Protocol: Document 02/07/25 08:08 [facility] (Rec: 02/07/25 08:09 MARIA LUZ Laptop) Physical Therapy Plan Discharge Physical Therapy Discharge Reasons Change in Medical Status
== END 2025-02-09 12:53 | disposition home or self-care (01) ==
LOC: PHYS 09:45
PROVIDERS: Family Provider Internal Medicine; PCP Internal Medicine; Referring Provider Internal Medicine; Visit Provider Internal Medicine
DX: S46.811A Strain of other muscles, fascia and tendons at shoulder and upper arm level, right arm, initial encounter (principal); M75.41 Impingement syndrome of right shoulder; M12.811 Other specific arthropathies, not elsewhere classified, right shoulder
CPT/HCPCS: 97010; 97110; 97140; 97162; 97535

== ENCOUNTER 2025-02-05 10:14 | Inpatient (IN) | payer MEDICARE, OTHER, SELFPAY ==
[2025-02-05] VITALS (19 sets, daily range): BP systolic 124–195; BP diastolic 58–88; PULSE 62–85; RESP 16–19; TEMP 36.3–36.8; O2SAT 95–100; BMI 19.0
--- NOTE | 2025-02-05 | DI.RAD.S_ITS ---
PROCEDURE: XR RIBS RT MIN 3V W CXR 1V INDICATIONS: FALL WITH RIGHT RIB PAIN TECHNIQUE: 2 views of the ribs were acquired, along with a single view chest. COMPARISON: [facility], CR, XR CHEST 2V, 05/12/2023, 11:27. [facility], CR, XR HIP W PEL IF DONE RT 2V, 02/05/2025, 11:04. [facility], CT, CT FACIAL BONES WO CON, 02/05/2025, 10:52. [facility], CT, CT HEAD/BRAIN WO CON, 02/05/2025, 10:52. [facility], CT, CT CERVICAL SPINE WO CON, 02/05/2025, 10:52. FINDINGS: Surgical changes and devices: None. Bones and chest wall: No acute appearing fractures or dislocations. Remote bilateral rib fractures can be seen. No suspicious bony lesions. Age-appropriate bony degenerative changes are seen. Mild dextroconvex scoliotic curvature is seen. Overlying soft tissues appear unremarkable. Lungs and pleura: On this supine examination, no large pneumothorax or large pleural effusions are seen. No focal areas of lung consolidation are seen. Mediastinum: Mediastinal contours appear normal. Heart size is normal. IMPRESSION: No displaced rib fracture or pneumothorax. Dictated by: Bertrand Velazco M.D. on 02/05/2025 at 11:13 Approved by: Bertrand Velazco M.D. on 02/05/2025 at 11:14
--- NOTE | 2025-02-05 10:45 | DI.RAD.S_ITS ---
PROCEDURE: XR HIP W PEL IF DONE RT 2V INDICATIONS: fall TECHNIQUE: AP pelvis with lateral view(s) of the right hip(s). COMPARISON: [facility], CR, XR RIBS RT MIN 3V W CXR 1V, 02/05/2025, 11:17. [facility], CT, CT FACIAL BONES WO CON, 02/05/2025, 10:52. [facility], CT, CT HEAD/BRAIN WO CON, 02/05/2025, 10:52. [facility], CT, CT CERVICAL SPINE WO CON, 02/05/2025, 10:52. FINDINGS: Bones: There is a moderately displaced fracture involving the right superior pubic ramus. There is a minimally displaced fracture involving the right inferior pubic ramus. Pelvic ring appears intact. No suspicious bony lesions. Degenerative changes are seen throughout, including involving the visualized lower lumbar spine. Soft tissues: The visualized bowel gas pattern is normal. No suspicious soft tissue calcifications. There is a left-sided sacral stimulator. IMPRESSION: Right-sided pubic ramus fractures seen, with moderate displacement of the superior pubic ramus fracture. Postoperative and degenerative changes are seen. Dictated by: Bertrand Velazco M.D. on 02/05/2025 at 11:10 Approved by: Bertrand Velazco M.D. on 02/05/2025 at 11:12
--- NOTE | 2025-02-05 10:45 | DI.CT.S_ITS ---
PROCEDURE: CT CERVICAL SPINE WO CON INDICATIONS: fall,head injury TECHNIQUE: Noncontrast 3 mm thick sections acquired from the skull base to the T4 level. Sagittal and coronal reformats were then constructed. For radiation dose reduction, the following was used: automated exposure control, adjustment of mA and/or kV according to patient size. COMPARISON: [facility], CT, CT CERVICAL SPINE WITHOUT CONTRAST, 09/11/2024, 14:09. [facility], CR, XR RIBS RT MIN 3V W CXR 1V, 02/05/2025, 11:17. [facility], CR, XR HIP W PEL IF DONE RT 2V, 02/05/2025, 11:04. [facility], CT, CT HEAD/BRAIN WO CON, 02/05/2025, 10:52. [facility], CT, CT FACIAL BONES WO CON, 02/05/2025, 10:52. FINDINGS: Image quality: Excellent. Bones: No fractures or dislocations. Visualized superior ribs are intact. is dextroconvex cervical thoracic scoliotic curvature. Mild anterolisthesis can be seen at C3-C4 and C4-C5. There is mild retrolisthesis at C5-C6 and C6-C7. Focal degenerative change is seen involving the C1-C2 interface anteriorly. There is at least moderate disc space narrowing seen at C4-C5, with moderate to severe disc space narrowing at C5-C6 and C6-C7. Several levels of significant facet hypertrophy can be seen. Multiple levels of thoracic spine degenerative change can be seen. Soft tissues: Prevertebral soft tissues are normal in thickness. No paravertebral hematomas. No apical pneumothoraces. Atherosclerotic calcification is noted. IMPRESSION: No displaced fracture or traumatic subluxation. Multiple levels of cervical spine degenerative change can be seen, which are worst inferiorly. Dictated by: Bertrand Velazco M.D. on 02/05/2025 at 10:39 Approved by: Bertrand Velazco M.D. on 02/05/2025 at 10:41
--- NOTE | 2025-02-05 10:45 | DI.CT.S_ITS ---
PROCEDURE: CT HEAD/BRAIN WO CON INDICATIONS: fall,head injury TECHNIQUE: Noncontrast 4.5 mm thick angled axial sections acquired from the foramen magnum to the vertex, with coronal and sagittal reformats. For radiation dose reduction, the following was used: automated exposure control, adjustment of mA and/or kV according to patient size. COMPARISON: [facility], CT, CT CERVICAL SPINE WO CON, 02/05/2025, 10:52. [facility], CT, CT FACIAL BONES WO CON, 02/05/2025, 10:52. [facility], CT, CT HEAD/BRAIN WO CON, 09/10/2022, 14:45. FINDINGS: Image quality: Diagnostic. CSF spaces: Basal cisterns are patent. No extra-axial fluid collections. The ventricles are symmetric in size and shape. Brain: No intracranial bleeds or masses. There is cerebral volume loss for age, with resultant ventricular and sulcal prominence. There are periventricular and deep white matter chronic small vessel ischemic changes. There is intracranial internal carotid artery atherosclerosis. Skull and face: Right forehead laceration is seen. No associated fracture is seen. Calvarium and visualized facial bones appear intact, without suspicious lesions. Sinuses: Visualized sinuses and mastoids are clear. IMPRESSION: Right forehead scalp laceration seen, without an associated fracture. No acute intracranial hemorrhage is seen. No acute intracranial pathology. Dictated by: Bertrand Velazco M.D. on 02/05/2025 at 10:28 Approved by: Bertrand Velazco M.D. on 02/05/2025 at 10:30
--- NOTE | 2025-02-05 10:45 | DI.CT.S_ITS ---
PROCEDURE: CT FACIAL BONES WO CON INDICATIONS: fall,head injury TECHNIQUE: Noncontrast 2.5 mm thick axial images acquired from the mandible through the frontal sinuses, with coronal and sagittal reformatting. For radiation dose reduction, the following was used: automated exposure control, adjustment of mA and/or kV according to patient size. COMPARISON: [facility], CR, XR RIBS RT MIN 3V W CXR 1V, 02/05/2025, 11:17. [facility], CR, XR HIP W PEL IF DONE RT 2V, 02/05/2025, 11:04. [facility], CT, CT HEAD/BRAIN WO CON, 02/05/2025, 10:52. [facility], CT, CT CERVICAL SPINE WO CON, 02/05/2025, 10:52. [facility], CT, CT FACIAL BONES WO CON, 09/10/2022, 14:45. FINDINGS: Image quality: Excellent. Bones and teeth: Orbital gray are intact. Sinus gray show no fracture or deformity. Nasal bones and septum are intact. Visualized portions of the mandible demonstrate no fractures or subluxation. Zygomatic arches are intact. Pterygoid plates are intact. Visualized portions of the skull base and auditory canals are intact. Sinuses: Paranasal sinuses are aerated, without fluid levels, mucosal thickening, or mucoceles. Mastoid air cells are aerated. Soft tissues: Right forehead laceration can be seen. Vascular: Visualized vascular structures appear normal in the absence of contrast. Bony vascular foramina and canals are intact. IMPRESSION: Right forehead laceration seen, without an associated fracture. Dictated by: Bertrand Velazco M.D. on 02/05/2025 at 10:41 Approved by: Bertrand Velazco M.D. on 02/05/2025 at 10:42
--- NOTE | 2025-02-05 12:01 | ED_ITS ---
HPI - Fall General Chief Complaint: Fall Stated Complaint: Fall Time Seen by Provider: 02/05/25 11:17 Source: family Mode of arrival: Wheelchair History of Present Illness HPI Narrative: Patient is a 71-year-old healthy female presenting today after mechanical ground level fall. She was going into the garage when she tripped and fell hitting her head. Not on anticoagulation or antiplatelet medications. She does have laceration to the right forehead complaining of right hip pain. No neck pain. Questionable loss of consciousness no nausea or vomiting. Related Data Home Medications Medication Instructions Recorded Confirmed acetaminophen 500 mg tablet 500 mg PO Q4HP PRN Pain (Scale 06/24/17 02/05/25 (Tylenol Extra Strength) Score 1-3) ##0 cholecalciferol (vitamin D3) 125 5,000 unit PO BEDTIME ##0 06/24/17 02/05/25 mcg (5,000 unit) capsule ibuprofen 200 mg capsule 200 mg PO Q4-6H PRN Pain (Scale 12/11/18 02/05/25 Score 1-3) calcium carbonate 600 mg PO BID 05/12/23 02/05/25 Previous Rx's Medication Instructions Recorded Disabled Parking #1 ea 11/22/22 aripiprazole 5 mg tablet 5 mg PO DAILY #90 tabs 10/22/24 lamotrigine 200 mg tablet 200 mg PO DAILY #90 tabs 10/22/24 metoprolol succinate 25 mg 12.5 mg (1/2 x 25 mg) PO QDAY #45 12/22/24 tablet,extended release 24 hr tabs (Toprol XL) oxybutynin chloride 10 mg 10 mg PO DAILY #90 tabs 12/22/24 tablet,extended release 24 hr trazodone 100 mg tablet 150 mg (1.5 x 100 mg) PO BEDTIME 12/22/24 insomnia #135 tabs Allergies Allergy/AdvReac Type Severity Reaction Status Date / Time bacitracin Allergy Mild RASH Verified 11/19/24 13:57 [From Neosporin ([id number])] neomycin Allergy Mild RASH Verified 11/19/24 13:57 [From Neosporin ([id number])] polymyxin B Allergy Mild RASH Verified 11/19/24 13:57 [From Neosporin ([id number])] Sulfa (Sulfonamide Allergy Mild HIVES Verified 11/19/24 13:57 Antibiotics) Patient History Medical History Diverticular disease of colon Gastroesophageal reflux disease with esophagitis Osteopenia Weight loss Dysphagia Chronic hyponatremia Overactive bladder Urinary frequency Urge incontinence Cancer UTI (urinary tract infection) Chronic renal failure, stage 3 (moderate) Mixed urge and stress incontinence Incomplete left bundle branch block (LBBB) Lumbar spinal stenosis Viral cardiomyopathy Depression Osteoporosis, unspecified Cyclothymia Sciatica Fractures (~2004) Measles Chicken pox Cataracts, bilateral (~2015) Genital warts (~1984) History of urinary incontinence (~2014) Fecal incontinence (~2014) Heart palpitations Constipation Surgical History H/O hernia repair Anesthesia History of vaginal hysterectomy (~1996) Melanoma (~1981) Family History Father Hypertension Heart disease Mother Cancer Diabetes mellitus Hyperlipidemia Sister Cervical cancer Grandfather No problems noted. Grandmother Hypertension Grandmother Hypertension Social History household members: spouse Smoking Status: Never smoker Smoking Status: Current every day smoker alcohol intake frequency: 0-2 drinks per day Alcohol type: wine Exam Initial Vital Signs Initial Vital Signs: Vital Signs Temperature 97.4 F L 02/05/25 10:14 Pulse Rate 77 02/05/25 10:14 Respiratory Rate 16 02/05/25 10:14 Blood Pressure 195/88 H 02/05/25 10:14 Pulse Oximetry 99 02/05/25 10:14 Oxygen Delivery Method Room Air 02/05/25 10:14 GENERAL: Alert pleasant well-appearing 79-year-old female HEENT: Head 3 cm laceration right forehead, no crepitations no depression EOMI, pupils reactive, face symmetric, moist mucous membranes NECK: No vertebral tenderness no step-off full range of motion CARDIOVASCULAR: Regular rate and rhythm without murmurs, rubs or gallops. RESPIRATORY: Breath sounds equal bilaterally, no wheezes rales or rhonchi. ABDOMEN: Soft, nontender. Normoactive bowel sounds all 4 quadrants. No guarding or rebound. EXTREMITIES: Normal range of motion, no clubbing or edema. Neurovascularly intact Legs are of equal length right leg has pain with flexion mild pain internal external rotation NEUROLOGICAL: Alert and oriented x4. Application Trainer strength equal bilaterally SKIN: Warm, dry, no laceration, no petechiae, no rashes or lesions. Procedures Laceration Repair Laceration 1: Site: face (forehead) Side (If applicable): right Size (cm): 3 Description: linear Depth: simple, single layer Local Anesthetic: lidocaine 1% and with epi Amount of anesthesia used (mL): 5 Pre-repair: wound explored, irrigated extensively and deep structures intact Skin layer closed with: nylon Skin layer suture size: 4-0 Number of sutures: 3 Technique: simple, interrupted Course Orders Ordered: ED Orders 02/05/25 10:40 BMP [Basic Metabolic Panel] Stat CBC Auto Diff [Complete Blood Count AUTO DIFF] Stat 02/05/25 10:45 CT cervical spine wo con Stat CT facial bones wo con Stat CT head/brain wo con Stat XR hip w pel if done RT 2V Stat Acetaminophen (Acetaminophen 325 Mg Tablet) 650 mg PO Q6H PRN PRN Reason: Fever/Mild Pain (1-3) Hydrocodone Bitart/Acetaminophen (Hydrocodone/Acet 5/325 Tablet) 1 tab PO Q4H PRN PRN Reason: Pain, Moderate (4-6) Al Hydrox/Mg Hydrox/Simethicone (Mag Hydrox/Alum/Simeth 30 Ml Udc) 30 ml PO Q6HR PRN PRN Reason: Dyspepsia Aripiprazole (Aripiprazole 10 Mg Tablet) 5 mg PO DAILY ON LICENSE OF [facility] Calcium Carbonate (Calcium Carbonate 500 Mg Tab) 500 mg PO BID ON LICENSE OF [facility] Enoxaparin Sodium (Enoxaparin 40 Mg/0.4 Ml Syringe) 40 mg SUBCUT DAILY ON LICENSE OF [facility] Sodium Chloride (Normal Saline 0.9%) 1,000 mls @ 100 mls/hr IV CONT HAKE[facility] Last Admin: 02/05/25 17:43 Dose: 100 mls/hr Documented By: ENRIQUETA Lamotrigine (Lamotrigine 100 Mg Tablet) 200 mg PO DAILY ON LICENSE OF [facility] Magnesium Hydroxide (Magnesium Hydroxide 30 Ml Udc) 30 ml PO DAILY PRN PRN Reason: Constipation Metoprolol Succinate (Metoprolol Er 25 Mg Tablet) 12.5 mg PO DAILY ON LICENSE OF [facility] Morphine Sulfate (Morphine 4 Mg/Ml Inj) 2 mg IV Q2HR PRN PRN Reason: Pain, Severe (7-10) Naloxone HCl (Naloxone 0.4 Mg/Ml Vial) 0.2 mg IV Q2MIN PRN PRN Reason: Opiate Reversal Ondansetron HCl (Ondansetron 4 Mg/2 Ml Inj) 4 mg IV Q8HR PRN PRN Reason: Nausea And Vomiting Oxybutynin Chloride (Oxybutynin 5 Mg Er Tab) 10 mg PO DAILY [facility] Trazodone HCl (Trazodone 50 Mg Tablet) 150 mg PO BEDTIME [facility]KE[facility] Vitamin D (Cholecalciferol (Vitamin D3) 5,000 Unit Tablet) 5,000 unit PO DAILY HAKE[facility] Discontinued Medications Hydrocodone Bitart/Acetaminophen (Hydrocodone/Acet 5/325 Tablet) 1 tab PO NOW ONE Stop: 02/05/25 12:16 Last Admin: 02/05/25 12:30 Dose: 1 tab Documented By: MARK Morphine Sulfate (Morphine 4 Mg/Ml Inj) 2 mg IV Q2HR HAKE[facility] Vital Signs Vital signs: Vital Signs - 8 hr 02/05/25 11:00 02/05/25 11:00 02/05/25 11:32 Pulse Rate 62 69 Blood Pressure 170/73 H Pulse Oximetry 100 96 02/05/25 11:36 02/05/25 11:36 02/05/25 11:45 Pulse Rate 68 63 Blood Pressure 168/71 H Pulse Oximetry 97 98 02/05/25 11:45 02/05/25 12:00 02/05/25 12:00 Pulse Rate 65 Blood Pressure 163/71 H 173/76 H Pulse Oximetry 97 02/05/25 12:15 02/05/25 12:15 02/05/25 12:30 Pulse Rate 72 72 Blood Pressure 171/77 H Pulse Oximetry 99 95 02/05/25 12:30 02/05/25 12:45 02/05/25 12:45 Pulse Rate 80 Blood Pressure 163/72 H 137/58 L Pulse Oximetry 97 02/05/25 13:00 02/05/25 13:00 02/05/25 13:15 Pulse Rate 78 Blood Pressure 152/67 H 138/58 L Pulse Oximetry 96 02/05/25 13:15 02/05/25 14:45 02/05/25 14:46 Pulse Rate 85 76 71 Blood Pressure Pulse Oximetry 97 98 99 02/05/25 14:46 02/05/25 15:00 04/12/25 15:00 Pulse Rate 68 Blood Pressure 167/73 H 154/60 H Pulse Oximetry 97 MDM - Fall Lab Data 02/05/25 10:40 02/05/25 10:40 Labs: Lab Results 02/05/25 Range/Units 10:40 WBC 12.4 H (4.5-11.0) X10^3/uL RBC 4.76 (4.0-5.2) X10^6/uL Hgb 14.7 (12.0-16.0) g/dL Hct 44.2 (36-46) % MCV 92.9 (80-100) fL MCH 30.9 (26-34) PG MCHC 33.3 (30-36) % RDW 12.5 (11.6-14.8) % Plt Count 274 (150-400) X10^3/uL Neut % (Auto) 84.1 H (50-75) % Lymph % (Auto) 10.4 L (25-40) % [place] % (Auto) 4.6 (3-14) % Eos % (Auto) 0.6 L (2-4) % Baso % (Auto) 0.3 (0-2) % Neut # (Auto) 86109 H (9671-6247) /uL Lymph # (Auto) 1300 (3693-2469) /uL [place] # (Auto) 600 (0-900) /uL Eos # (Auto) 100 (0-450) /uL Baso # (Auto) 0 (0-100) /uL Sodium 127 L (137-145) mmol/L Potassium 4.5 (3.4-5.1) mmol/L Chloride 94 L (98-107) mmol/L Carbon Dioxide 24 (22-32) mmol/L BUN 19 H (7-17) mg/dL Creatinine 0.93 (0.52-1.04) mg/dL Estimated GFR > 60 (>60) mL/min BUN/Creatinine Ratio 20.4 (6-22) Glucose 107 (80-110) mg/dL Calcium 9.8 (8.4-10.2) mg/dL Imaging Data CT scan - head: Radiologist's Impression: PROCEDURE: CT HEAD/BRAIN WO CON INDICATIONS: fall,head injury TECHNIQUE: Noncontrast 4.5 mm thick angled axial sections acquired from the foramen magnum to the vertex, with coronal and sagittal reformats. For radiation dose reduction, the following was used: automated exposure control, adjustment of mA and/or kV according to patient size. COMPARISON: [facility], CT, CT CERVICAL SPINE WO CON, 02/05/2025, 10:52. [facility], CT, CT FACIAL BONES WO CON, 02/05/2025, 10:52. [facility], CT, CT HEAD/BRAIN WO CON, 09/10/2022, 14:45. FINDINGS: Image quality: Diagnostic. CSF spaces: Basal cisterns are patent. No extra-axial fluid collections. The ventricles are symmetric in size and shape. Brain: No intracranial bleeds or masses. There is cerebral volume loss for age, with resultant ventricular and sulcal prominence. There are periventricular and deep white matter chronic small vessel ischemic changes. There is intracranial internal carotid artery atherosclerosis. Skull and face: Right forehead laceration is seen. No associated fracture is seen. Calvarium and visualized facial bones appear intact, without suspicious lesions. Sinuses: Visualized sinuses and mastoids are clear. IMPRESSION: Right forehead scalp laceration seen, without an associated fracture. No acute intracranial hemorrhage is seen. No acute intracranial pathology. Dictated by: Bertrand Velazco M.D. on 02/05/2025 at 10:28 CT - cervical spine: Radiologist's Impression: PROCEDURE: CT CERVICAL SPINE WO CON INDICATIONS: fall,head injury TECHNIQUE: Noncontrast 3 mm thick sections acquired from the skull base to the T4 level. Sagittal and coronal reformats were then constructed. For radiation dose reduction, the following was used: automated exposure control, adjustment of mA and/or kV according to patient size. COMPARISON: [facility], CT, CT CERVICAL SPINE WITHOUT CONTRAST, 09/11/2024, 14:09. [facility], CR, XR RIBS RT MIN 3V W CXR 1V, 02/05/2025, 11:17. [facility], CR, XR HIP W PEL IF DONE RT 2V, 02/05/2025, 11:04. [facility], CT, CT HEAD/BRAIN WO CON, 02/05/2025, 10:52. [facility], CT, CT FACIAL BONES WO CON, 02/05/2025, 10:52. FINDINGS: Image quality: Excellent. Bones: No fractures or dislocations. Visualized superior ribs are intact. is dextroconvex cervical thoracic scoliotic curvature. Mild anterolisthesis can be seen at C3-C4 and C4-C5. There is mild retrolisthesis at C5-C6 and C6-C7. Focal degenerative change is seen involving the C1-C2 interface anteriorly. There is at least moderate disc space narrowing seen at C4-C5, with moderate to severe disc space narrowing at C5-C6 and C6-C7. Several levels of significant facet hypertrophy can be seen. Multiple levels of thoracic spine degenerative change can be seen. Soft tissues: Prevertebral soft tissues are normal in thickness. No paravertebral hematomas. No apical pneumothoraces. Atherosclerotic calcification is noted. IMPRESSION: No displaced fracture or traumatic subluxation. Multiple levels of cervical spine degenerative change can be seen, which are worst inferiorly. Dictated by: Bertrand Velazco M.D. on 02/05/2025 at 10:39 ct face : Radiologist's Impression: PROCEDURE: CT FACIAL BONES WO CON INDICATIONS: fall,head injury TECHNIQUE: Noncontrast 2.5 mm thick axial images acquired from the mandible through the frontal sinuses, with coronal and sagittal reformatting. For radiation dose reduction, the following was used: automated exposure control, adjustment of mA and/or kV according to patient size. COMPARISON: [facility], CR, XR RIBS RT MIN 3V W CXR 1V, 02/05/2025, 11:17. [facility], CR, XR HIP W PEL IF DONE RT 2V, 02/05/2025, 11:04. [facility], CT, CT HEAD/BRAIN WO CON, 02/05/2025, 10:52. [facility], CT, CT CERVICAL SPINE WO CON, 02/05/2025, 10:52. [facility], CT, CT FACIAL BONES WO CON, 09/10/2022, 14:45. FINDINGS: Image quality: Excellent. Bones and teeth: Orbital gray are intact. Sinus gray show no fracture or deformity. Nasal bones and septum are intact. Visualized portions of the mandible demonstrate no fractures or subluxation. Zygomatic arches are intact. Pterygoid plates are intact. Visualized portions of the skull base and auditory canals are intact. Sinuses: Paranasal sinuses are aerated, without fluid levels, mucosal thickening, or mucoceles. Mastoid air cells are aerated. Soft tissues: Right forehead laceration can be seen. Vascular: Visualized vascular structures appear normal in the absence of contrast. Bony vascular foramina and canals are intact. IMPRESSION: Right forehead laceration seen, without an associated fracture. Dictated by: Bertrand Velazco M.D. on 02/05/2025 at 10:41 Extremity x-ray #1: Radiologist's Impression: PROCEDURE: XR HIP W PEL IF DONE RT 2V INDICATIONS: fall TECHNIQUE: AP pelvis with lateral view(s) of the right hip(s). COMPARISON: [facility], CR, XR RIBS RT MIN 3V W CXR 1V, 02/05/2025, 11:17. [facility], CT, CT FACIAL BONES WO CON, 02/05/2025, 10:52. [facility], CT, CT HEAD/BRAIN WO CON, 02/05/2025, 10:52. [facility], CT, CT CERVICAL SPINE WO CON, 02/05/2025, 10:52. FINDINGS: Bones: There is a moderately displaced fracture involving the right superior pubic ramus. There is a minimally displaced fracture involving the right inferior pubic ramus. Pelvic ring appears intact. No suspicious bony lesions. Degenerative changes are seen throughout, including involving the visualized lower lumbar spine. Soft tissues: The visualized bowel gas pattern is normal. No suspicious soft tissue calcifications. There is a left-sided sacral stimulator. IMPRESSION: Right-sided pubic ramus fractures seen, with moderate displacement of the superior pubic ramus fracture. Postoperative and degenerative changes are seen. Dictated by: Bertrand Velazco M.D. on 02/05/2025 at 11:10 [facility] Narrative Medical decision making narrative: Patient is a healthy 79-year-old female presenting to day with ground level fall. Sounds like she had a mechanical trip and fall. She has a right forehead laceration. Imaging has been reviewed head CT facial CT and cervical spine CT do not show any acute fracture. Right hip and pelvis x-ray do show a superior rami fracture Patient has laceration to right forehead easily repaired she was given [place] which she tolerates well. Attempted ambulation trial, however failed despite pain medication. Blood work has been reviewed she was mild hyponatremia with a sodium of 127 with mild leukocytosis of 12. Urinalysis does not show any evidence of UTI but does have some leukocytes waiting culture. Dr. Light orthopedics consulted recommends conservative management. Dr. Ferro in ED to see and evaluate patient and accepts patient Discharge Plan Departure Patient Disposition: Admitted as Observation Clinical Impression: Acute hyponatremia, Fracture of pubic ramus Admit Date/Time: 02/05/25 15:14 Admit Provider: Daniel Ferro
[2025-02-05] MEDS: HYDROCODONE/ACET 5/325 TABLET 1 TAB PO (12:30)
--- NOTE | 2025-02-05 12:48 | PC.NURSE ---
Pt vigorously masturbating while supine in bed. Advised pt this is inappropriate behavior for ED environment. ED charge and physician advised.
[2025-02-05 14:17] LABS: Add Manual Diff / Slide Review NO; Basophils Absolute Auto 0 /uL (0-100); Basophils Percent Auto 0.3 % (0-2); Eosinophils Absolute Auto 100 /uL (0-450); Eosinophils Percent Auto 0.6 % (2-4); Hematocrit 44.2 % (36-46); Hemoglobin 14.7 g/dL (12.0-16.0); Lymphocytes Absolute Auto 1300 /uL (1100-4500); Lymphocytes Percent Auto 10.4 % (25-40); Mean Corpuscular HGB Conc 33.3 % (30-36); Mean Corpuscular Hemoglobin 30.9 PG (26-34); Mean Corpuscular Volume 92.9 fL (80-100); Monocytes Absolute Auto 600 /uL (0-900); Monocytes Percent Auto 4.6 % (3-14); Neutrophils Absolute Auto 10500 /uL (1500-7000); Neutrophils Percent Auto 84.1 % (50-75); Platelet Count 274 X10^3/uL (150-400); Red Blood Cell Count 4.76 X10^6/uL (4.0-5.2); Red Cell Distribution Width 12.5 % (11.6-14.8); White Blood Cell Count 12.4 X10^3/uL (4.5-11.0)
[2025-02-05 14:22] LABS: BUN Creatinine Ratio 20.4 (6-22); Blood Urea Nitrogen 19 mg/dL (7-17); Calcium 9.8 mg/dL (8.4-10.2); Carbon Dioxide 24 mmol/L (22-32); Chloride 94 mmol/L (98-107); Estimated Glomerular Filt Rate > 60 mL/min (>60); Glucose 107 mg/dL (80-110); HEMOLYSIS 23 (0-50); Potassium 4.5 mmol/L (3.4-5.1); Sodium 127 mmol/L (137-145)
[2025-02-05 16:13] LABS: Appearance Urine UA CLEAR; Bilirubin Urine UA NEGATIVE (NEGATIVE); Color Urine UA YELLOW; Glucose Urine UA NEGATIVE (Negative); Ketones Urine UA TRACE (NEGATIVE); Leukocyte Esterase Urine UA 1+ (NEGATIVE); Nitrite Urine UA NEGATIVE (Negative); Occult Blood Urine UA TRACE-INTACT (Negative); Protein Urine UA NEGATIVE (Negative); Urobilinogen Urine UA 0.2 E.U./dL (0.2)
[2025-02-05 16:23] LABS: Bacteria Urine Occasional (0-1); Culture Indicated Urine Specimen Cultured; RBC Urine 0-1/HPF (0-5/HPF); Squamous Epithelial Cell Urine None Seen (0-5/HPF); Urine Volume 10mL (spun); WBC Urine 0-1/HPF (0-5/HPF)
--- NOTE | 2025-02-05 16:30 | PM.HP.1 ---
History of Present Illness History of Present Illness Date Patient Seen: 02/05/25 Time Patient Seen: 16:30 Date of Onset of Symptoms: 02/05/25 Chief complaint: Fall Narrative: Patient is a 79-year-old female who was backing her car out of the garage and then going into the garage and fell. Patient thinks she tripped. Apparently she has multiple issues with her legs that have been longstanding and she tends to trip and fall intermittently. Has not done lately. But this has been a longstanding issue and it has not unusual. was not there but feels as if the could not been a very long period between when she fell and when he got there. Maybe 30 or 40 seconds. Patient did hit her head. Denies loss of consciousness but does not remember basically getting a the car is the last thing she remembers and nothing until she saw her after the fall. She does not think she lost consciousness but she certainly does not remember that. If time. So she really does not know if she fell or tripped or had some event. She has not had any cardiac history he has had no chest pain no shortness and denies orthopnea PND or other change. She otherwise has felt well recently. With no new changes or complaints. History of depression. No cardiac history. Etiology of her nerve injury is probably from her lumbar stenosis. But has not changed. Otherwise no change. Patient has had no urinary changes. Diarrhea. Chest pain. She has not been drinking more than she usually does. Has a history of low sodium he has not been on treatment. No other changes or complaints. [facility] Medical History Diverticular disease of colon Gastroesophageal reflux disease with esophagitis Osteopenia Weight loss Dysphagia Chronic hyponatremia Overactive bladder Urinary frequency Urge incontinence Cancer UTI (urinary tract infection) Chronic renal failure, stage 3 (moderate) Mixed urge and stress incontinence Incomplete left bundle branch block (LBBB) Lumbar spinal stenosis Viral cardiomyopathy Depression Osteoporosis, unspecified Cyclothymia Sciatica Fractures (~2004) Measles Chicken pox Cataracts, bilateral (~2015) Genital warts (~1984) History of urinary incontinence (~2014) Fecal incontinence (~2014) Heart palpitations Constipation Surgical History H/O hernia repair Anesthesia History of vaginal hysterectomy (~1996) Melanoma (~1981) Family History Father Hypertension Heart disease Mother Cancer Diabetes mellitus Hyperlipidemia Sister Cervical cancer Grandfather No problems noted. Grandmother Hypertension Grandmother Hypertension Social History household members: spouse Smoking Status: Current every day smoker Meds Home Medications and Allergies Home Medications Medication Instructions Recorded Confirmed Type acetaminophen 500 mg tablet 500 mg PO Q4HP PRN Pain (Scale 06/24/17 11/19/24 History (Tylenol Extra Strength) Score 1-3) ##0 cholecalciferol (vitamin D3) 125 5,000 unit PO QDAY ##0 06/24/17 11/19/24 History mcg (5,000 unit) capsule ibuprofen 200 mg capsule 200 mg PO Q4-6H PRN Pain (Scale 12/11/18 11/19/24 History Score 1-3) Disabled Parking #1 ea 11/22/22 11/19/24 Rx calcium carbonate 600 mg PO BID 05/12/23 11/19/24 History aripiprazole 5 mg tablet 5 mg PO DAILY #90 tabs 10/22/24 11/19/24 Rx lamotrigine 200 mg tablet 200 mg PO DAILY #90 tabs 10/22/24 11/19/24 Rx metoprolol succinate 25 mg 12.5 mg (1/2 x 25 mg) PO QDAY #45 12/22/24 Rx tablet,extended release 24 hr tabs (Toprol XL) oxybutynin chloride 10 mg 10 mg PO DAILY #90 tabs 12/22/24 Rx tablet,extended release 24 hr trazodone 100 mg tablet 150 mg (1.5 x 100 mg) PO BEDTIME 12/22/24 Rx insomnia #135 tabs Allergies Allergy/AdvReac Type Severity Reaction Status Date / Time bacitracin Allergy Mild RASH Verified 11/19/24 13:57 [From Neosporin ([id number])] neomycin Allergy Mild RASH Verified 11/19/24 13:57 [From Neosporin ([id number])] polymyxin B Allergy Mild RASH Verified 11/19/24 13:57 [From Neosporin ([id number])] Sulfa (Sulfonamide Allergy Mild HIVES Verified 11/19/24 13:57 Antibiotics) Review of Systems Review of Systems Narrative: See above Exam Vital Signs (past 8 hours): - 02/05/25 10:14 02/05/25 10:17 02/05/25 10:30 Temperature 97.4 F L Pulse Rate 77 77 68 Respiratory Rate 16 Blood Pressure 195/88 H Pulse Oximetry 99 99 100 Oxygen Delivery Method Room Air 02/05/25 10:30 02/05/25 11:00 02/05/25 11:00 Temperature Pulse Rate 62 Respiratory Rate Blood Pressure 174/76 H 170/73 H Pulse Oximetry 100 Oxygen Delivery Method 02/05/25 11:32 02/05/25 11:36 02/05/25 11:36 Temperature Pulse Rate 69 68 Respiratory Rate Blood Pressure 168/71 H Pulse Oximetry 96 97 Oxygen Delivery Method 02/05/25 11:45 02/05/25 11:45 02/05/25 12:00 Temperature Pulse Rate 63 65 Respiratory Rate Blood Pressure 163/71 H Pulse Oximetry 98 97 Oxygen Delivery Method 02/05/25 12:00 02/05/25 12:15 02/05/25 12:15 Temperature Pulse Rate 72 Respiratory Rate Blood Pressure 173/76 H 171/77 H Pulse Oximetry 99 Oxygen Delivery Method 02/05/25 12:30 02/05/25 12:30 02/05/25 12:45 Temperature Pulse Rate 72 80 Respiratory Rate Blood Pressure 163/72 H Pulse Oximetry 95 97 Oxygen Delivery Method 02/05/25 12:45 02/05/25 13:00 02/05/25 13:00 Temperature Pulse Rate 78 Respiratory Rate Blood Pressure 137/58 L 152/67 H Pulse Oximetry 96 Oxygen Delivery Method 02/05/25 13:15 02/05/25 13:15 02/05/25 14:45 Temperature Pulse Rate 85 76 Respiratory Rate Blood Pressure 138/58 L Pulse Oximetry 97 98 Oxygen Delivery Method 02/05/25 14:46 02/05/25 14:46 02/05/25 15:00 Temperature Pulse Rate 71 68 Respiratory Rate Blood Pressure 167/73 H Pulse Oximetry 99 97 Oxygen Delivery Method 02/05/25 15:00 02/05/25 15:15 02/05/25 15:15 Temperature Pulse Rate 66 Respiratory Rate Blood Pressure 154/60 H 158/72 H Pulse Oximetry 97 Oxygen Delivery Method Oxygen Delivery Method Room Air Narrative Exam Narrative: Alert elderly female lying in bed comfortably in no acute distress except with movement. HEENT exam right side of forehead shows what appears to be a 10 cm approximately laceration which is sutured. Otherwise no tenderness of the scalp. Or posterior occiput. She does have a little bit of tenderness in the left neck muscles but nothing in the midline and range of motion is normal. Pupils are equal and responsive to light. Is moving her eyes appropriately and an Unasyn. Posterior pharynx is normal mucous membranes moist shows no tenderness of the jaw. No adenopathy JVD or bruits lungs are clear heart is regular rate and rhythm without murmurs clicks rubs or gallops abdomen is soft positive bowel sounds nontender she has tenderness with light pressure in the right groin did not move her hips. She has good pulses and neurologic exam is nonfocal Objective Labs 02/05/25 10:40 02/05/25 10:40 Labs: Laboratory Results - last 24 hr 02/05/25 02/05/25 10:40 15:55 WBC 12.4 H RBC 4.76 Hgb 14.7 Hct 44.2 MCV 92.9 MCH 30.9 MCHC 33.3 RDW 12.5 Plt Count 274 Neut % (Auto) 84.1 H Lymph % (Auto) 10.4 L [place] % (Auto) 4.6 Eos % (Auto) 0.6 L Baso % (Auto) 0.3 Neut # (Auto) 67431 H Lymph # (Auto) 1300 [place] # (Auto) 600 Eos # (Auto) 100 Baso # (Auto) 0 Sodium 127 L Potassium 4.5 Chloride 94 L Carbon Dioxide 24 BUN 19 H Creatinine 0.93 Estimated GFR > 60 BUN/Creatinine Ratio 20.4 Glucose 107 Calcium 9.8 Urine Color Yellow Urine Appearance Clear Urine pH 7.0 Ur Specific [place] 1.010 Urine Protein Negative Urine Glucose (UA) Negative Urine Ketones Trace H Urine Occult Blood Trace-intact Urine Nitrate Negative Urine Bilirubin Negative Urine Urobilinogen 0.2 Ur Leukocyte Esterase 1+ H Urine RBC 0-1/hpf Urine WBC 0-1/hpf Ur Squamous Epith Cells None seen Urine Bacteria Occasional (0-1) Ur Culture Indicated? Specimen cultured Vol Urine Centrifuged 10ml (spun) Assessment & Plan Assessment & Plan narrative: Hyponatremia. Patient with history of low sodiums but usually she runs in the low 130s. She has done 11/2026 today. Etiology is a little unclear. Could be dehydration. Unlikely SIADH. Will hydrate with saline gently over the next 24 hours and recheck in the morning. Based on how she does we may need to get urine sodium urine osmolality and cortisol. We will see how things go over the next 24 hours hopefully they settle out and she gets improved numbers. Loss of consciousness. Etiology is unclear. Could be concussion but she has no headache at this time. There does not seem to be any other cause but will place on tele. I do not think we have to do TIA workup. Certainly CT scan was without bleed will see how things go. Will see what her tele shows we may need to workup further depending on how things go. At this point I think we are stable Right pelvic fracture. Apparently ortho feels as if this can be managed conservatively. Patient has marked pain when she moves. Will treat with hydrocodone and morphine for breakthrough. We will see how she does. OT and PT consulted. They have a single floor house unclear whether she will be able to go home will discuss with social service tomorrow. History of depression. Major. Seems to be doing well. Will continue her usual medicines which appear to be somewhat manic in approach. With Abilify and Lamictal but we will continue. She seems to be doing well. Neck pain. Stable. CT scan shows no fracture. Will apply heat and see how she does. Laceration right forehead. Sutured. Will watch closely but wound care should be pretty straight forward with just bacitracin applied q.day Disposition. Patient will be here for at least 3 days. May need rehab will have to see. Pain control and sodium improvement will be needed. Time-Based Coding :: [TOTAL MINUTES] spent with patient and on the chart (including review of chart, obtaining history, exam, reviewing outside data, placing orders, documenting exam and treatment plan, and counseling patient) on [DATE].
[2025-02-05] MEDS: SODIUM CHLORIDE 0.9% 1,000 ML 100 ML IV (17:43)
--- NOTE | 2025-02-05 19:48 | PM.HP.1 ---
History of Present Illness History of Present Illness Date Patient Seen: 02/05/25 Time Patient Seen: 19:48 Date of Onset of Symptoms: 02/05/25 Chief complaint: Fall Narrative: This is a 79-year-old female who was in her garage today when she fell and noted the acute onset of right hip pain. She was unable to get up. She was down for a brief period of time and her found her. She is uncertain if she had a loss of consciousness. She did injure her head and her right hip. She does not note significant neck pain. She was unable to mobilize due to ongoing hip pain. She does not have a prior history of hip pain. [facility] Medical History Diverticular disease of colon Gastroesophageal reflux disease with esophagitis Osteopenia Weight loss Dysphagia Chronic hyponatremia Overactive bladder Urinary frequency Urge incontinence Cancer UTI (urinary tract infection) Chronic renal failure, stage 3 (moderate) Mixed urge and stress incontinence Incomplete left bundle branch block (LBBB) Lumbar spinal stenosis Viral cardiomyopathy Depression Osteoporosis, unspecified Cyclothymia Sciatica Fractures (~2004) Measles Chicken pox Cataracts, bilateral (~2015) Genital warts (~1984) History of urinary incontinence (~2014) Fecal incontinence (~2014) Heart palpitations Constipation Surgical History H/O hernia repair Anesthesia History of vaginal hysterectomy (~1996) Melanoma (~1981) Family History Father Hypertension Heart disease Mother Cancer Diabetes mellitus Hyperlipidemia Sister Cervical cancer Grandfather No problems noted. Grandmother Hypertension Grandmother Hypertension Social History household members: spouse Smoking Status: Never smoker Meds Home Medications and Allergies Home Medications Medication Instructions Recorded Confirmed Type acetaminophen 500 mg tablet 500 mg PO Q4HP PRN Pain (Scale 06/24/17 02/05/25 History (Tylenol Extra Strength) Score 1-3) ##0 cholecalciferol (vitamin D3) 125 5,000 unit PO BEDTIME ##0 06/24/17 02/05/25 History mcg (5,000 unit) capsule ibuprofen 200 mg capsule 200 mg PO Q4-6H PRN Pain (Scale 12/11/18 02/05/25 History Score 1-3) Disabled Parking #1 ea 11/22/22 11/19/24 Rx calcium carbonate 600 mg PO BID 05/12/23 02/05/25 History aripiprazole 5 mg tablet 5 mg PO DAILY #90 tabs 10/22/24 02/05/25 Rx lamotrigine 200 mg tablet 200 mg PO DAILY #90 tabs 10/22/24 02/05/25 Rx metoprolol succinate 25 mg 12.5 mg (1/2 x 25 mg) PO QDAY #45 12/22/24 02/05/25 Rx tablet,extended release 24 hr tabs (Toprol XL) oxybutynin chloride 10 mg 10 mg PO DAILY #90 tabs 12/22/24 02/05/25 Rx tablet,extended release 24 hr trazodone 100 mg tablet 150 mg (1.5 x 100 mg) PO BEDTIME 12/22/24 02/05/25 Rx insomnia #135 tabs Allergies Allergy/AdvReac Type Severity Reaction Status Date / Time bacitracin Allergy Mild RASH Verified 11/19/24 13:57 [From Neosporin ([id number])] neomycin Allergy Mild RASH Verified 11/19/24 13:57 [From Neosporin ([id number])] polymyxin B Allergy Mild RASH Verified 11/19/24 13:57 [From Neosporin ([id number])] Sulfa (Sulfonamide Allergy Mild HIVES Verified 11/19/24 13:57 Antibiotics) Review of Systems Review of Systems Narrative: She does not note any dizziness or lightheadedness right now she denies neck pain she has chronic problems with her right shoulder with a rotator cuff tear but does not note increased pain, she does note significant right hip pain which is much worse with attempting to mobilize Exam Vital Signs (past 8 hours): - 02/05/25 12:00 02/05/25 12:00 02/05/25 12:15 Temperature Pulse Rate 65 Respiratory Rate Blood Pressure 173/76 H 171/77 H Pulse Oximetry 97 Oxygen Delivery Method 02/05/25 12:15 02/05/25 12:30 02/05/25 12:30 Temperature Pulse Rate 72 72 Respiratory Rate Blood Pressure 163/72 H Pulse Oximetry 99 95 Oxygen Delivery Method 02/05/25 12:45 02/05/25 12:45 02/05/25 13:00 Temperature Pulse Rate 80 78 Respiratory Rate Blood Pressure 137/58 L Pulse Oximetry 97 96 Oxygen Delivery Method 02/05/25 13:00 02/05/25 13:15 02/05/25 13:15 Temperature Pulse Rate 85 Respiratory Rate Blood Pressure 152/67 H 138/58 L Pulse Oximetry 97 Oxygen Delivery Method 02/05/25 14:45 02/05/25 14:46 02/05/25 14:46 Temperature Pulse Rate 76 71 Respiratory Rate Blood Pressure 167/73 H Pulse Oximetry 98 99 Oxygen Delivery Method 02/05/25 15:00 02/05/25 15:00 02/05/25 15:15 Temperature Pulse Rate 68 66 Respiratory Rate Blood Pressure 154/60 H Pulse Oximetry 97 97 Oxygen Delivery Method 02/05/25 15:15 02/05/25 16:00 02/05/25 17:04 Temperature 98.2 F Pulse Rate 66 Respiratory Rate 17 Blood Pressure 158/72 H 161/70 H Pulse Oximetry 98 Oxygen Delivery Method Room Air Oxygen Delivery Method Room Air Narrative Exam Narrative: HEENT is remarkable for a laceration on the occiput, they are stitches in place, there was no active bleeding, neck is supple, lungs are clear, cor is regular, abdomen is slightly distended but bowel sounds are present, she is minimally tender along the lumbar spine, she is good range of motion in the left leg and no pain, the right leg she has focal tenderness over her pelvis, her pelvis is stable, she has minimal pain with internal and external rotation of the right hip, she can fire her toes distally, her calves are soft distally. Objective Labs 02/05/25 10:40 02/05/25 10:40 Labs: Laboratory Results - last 24 hr 02/05/25 02/05/25 10:40 15:55 WBC 12.4 H RBC 4.76 Hgb 14.7 Hct 44.2 MCV 92.9 MCH 30.9 MCHC 33.3 RDW 12.5 Plt Count 274 Neut % (Auto) 84.1 H Lymph % (Auto) 10.4 L [place] % (Auto) 4.6 Eos % (Auto) 0.6 L Baso % (Auto) 0.3 Neut # (Auto) 31633 H Lymph # (Auto) 1300 [place] # (Auto) 600 Eos # (Auto) 100 Baso # (Auto) 0 Sodium 127 L Potassium 4.5 Chloride 94 L Carbon Dioxide 24 BUN 19 H Creatinine 0.93 Estimated GFR > 60 BUN/Creatinine Ratio 20.4 Glucose 107 Calcium 9.8 Urine Color Yellow Urine Appearance Clear Urine pH 7.0 Ur Specific [place] 1.010 Urine Protein Negative Urine Glucose (UA) Negative Urine Ketones Trace H Urine Occult Blood Trace-intact Urine Nitrate Negative Urine Bilirubin Negative Urine Urobilinogen 0.2 Ur Leukocyte Esterase 1+ H Urine RBC 0-1/hpf Urine WBC 0-1/hpf Ur Squamous Epith Cells None seen Urine Bacteria Occasional (0-1) Ur Culture Indicated? Specimen cultured Vol Urine Centrifuged 10ml (spun) AP pelvis shows a displaced right superior and inferior pubic rami fracture, no evidence of hip fracture Assessment & Plan Assessment and plan (1) Fracture of pubic ramus: Status: Acute (2) Acute hyponatremia: Status: Acute (3) Osteopenia: Qualifiers: Osteopenia location: unspecified Qualified Code(s): M85.80 - Other specified disorders of bone density and structure, unspecified site Status: Chronic Plan She has a displaced right superior and inferior pubic rami fracture. She does not have significant pain posteriorly along her SI joint or sacrum. Her fractures look like they likely will be stable. She did have an laceration to her head but does not have pain with range of motion in her cervical spine. I have recommended that she can be mobilized she can be weight-bearing as tolerated on the right lower extremity. She does note some chronic problems with the right shoulder and a rotator cuff tear. This may make mobilization slightly more difficult. We will have her work with physical therapy. She is on the Medicine Service for other problems including hyponatremia possible loss of consciousness. I anticipate she will need a several day hospital stay. Time-Based Coding :: [TOTAL MINUTES] spent with patient and on the chart (including review of chart, obtaining history, exam, reviewing outside data, placing orders, documenting exam and treatment plan, and counseling patient) on [DATE]. Quality VTE Deep Vein Thrombosis/Pulmonary Embolism Present on Admission: No
[2025-02-05] MEDS: PSYLLIUM HUSK 1 PACKET PO (20:21)
[2025-02-05] MEDS: TRAZODONE 50 MG TABLET 150 MG PO (20:21)
[2025-02-05] MEDS: CALCIUM CARBONATE 500 MG TAB PO (20:21)
[2025-02-06] VITALS: BP 130/62; PULSE 80; RESP 19; TEMP 36.7; O2SAT 96
[2025-02-06] MEDS: HYDROCODONE/ACET 5/325 TABLET 1 TAB PO ×4 (02:29→20:14)
[2025-02-06] MEDS: SODIUM CHLORIDE 0.9% 1,000 ML 100 ML IV ×2 (03:22→14:22)
[2025-02-06 05:29] VITALS: BP 126/58; PULSE 76; RESP 19; TEMP 36.5; O2SAT 97
[2025-02-06 05:48] LABS: Add Manual Diff / Slide Review NO; Basophils Absolute Auto 0 /uL (0-100); Basophils Percent Auto 0.4 % (0-2); Eosinophils Absolute Auto 100 /uL (0-450); Eosinophils Percent Auto 2.1 % (2-4); Lymphocytes Absolute Auto 800 /uL (1100-4500); Lymphocytes Percent Auto 14.4 % (25-40); Mean Corpuscular HGB Conc 34.2 % (30-36); Mean Corpuscular Hemoglobin 31.8 PG (26-34); Mean Corpuscular Volume 92.8 fL (80-100); Monocytes Absolute Auto 300 /uL (0-900); Monocytes Percent Auto 6.1 % (3-14); Neutrophils Absolute Auto 4200 /uL (1500-7000); Platelet Count 167 X10^3/uL (150-400); Red Blood Cell Count 3.77 X10^6/uL (4.0-5.2); Red Cell Distribution Width 12.9 % (11.6-14.8); White Blood Cell Count 5.5 X10^3/uL (4.5-11.0)
[2025-02-06 06:01] LABS: Alanine Aminotransferase 15 IU/L (<35); Albumin 3.4 g/dL (3.5-5.0); Albumin Globulin Ratio 1.8 (1.0-2.8); Alkaline Phosphatase 63 U/L (38-126); Aspartate Aminotransferase 23 IU/L (14-36); BUN Creatinine Ratio 14.5 (6-22); Bilirubin Total 0.7 mg/dL (0.2-1.3); Blood Urea Nitrogen 11 mg/dL (7-17); Calcium 8.7 mg/dL (8.4-10.2); Carbon Dioxide 21 mmol/L (22-32); Chloride 105 mmol/L (98-107); Estimated Glomerular Filt Rate > 60 mL/min (>60); Globulin 1.9 g/dL (1.7-4.1); Glucose 111 mg/dL (80-110); HEMOLYSIS < 15 (0-50); Sodium 130 mmol/L (137-145); Total Protein 5.3 g/dL (6.3-8.2)
[2025-02-06 07:00] VITALS: BP 105/48; PULSE 85; RESP 18; TEMP 36.2; O2SAT 98
[2025-02-06] MEDS: CALCIUM CARBONATE 500 MG TAB PO ×2 (08:13→20:16)
[2025-02-06] MEDS: ARIPiprazole 10 MG TABLET 5 MG PO (08:13)
[2025-02-06] MEDS: CHOLECALCIFEROL (VITAMIN D3) 5,000 UNIT TABLET 5000 UNIT PO (08:13)
[2025-02-06] MEDS: METOPROLOL ER 25 MG TABLET 12.5 MG PO (08:15)
[2025-02-06] MEDS: lamoTRIgine 100 MG TABLET 200 MG PO (08:16)
[2025-02-06] MEDS: OXYBUTYNIN 5 MG ER TAB 10 MG PO (08:18)
[2025-02-06] MEDS: PSYLLIUM HUSK 1 PACKET PO ×2 (08:18→20:16)
[2025-02-06] MEDS: ENOXAPARIN 40 MG/0.4 ML SYRINGE SUBCUT (08:19)
--- NOTE | 2025-02-06 08:21 | PM.PN.1 ---
Subjective Subjective Date Patient Seen: 02/06/25 Time Patient Seen: 08:21 Interval history: Patient with okay night. Pain only with movement. Using oral medicine as long as she does not move. She feels as if she is going to need IV morphine when she gets up today with physical therapy. Otherwise no new changes or complaints. Exam Vital Signs (past 8 hours): - 02/06/25 05:29 Temperature 97.7 F Pulse Rate 76 Respiratory Rate 19 Blood Pressure 126/58 L Pulse Oximetry 97 Oxygen Flow Rate 0 Oxygen Delivery Method Room Air Oxygen Flow Rate 0 Narrative Exam Narrative: Alert female in no acute distress Right forehead lack healing well. Lungs are clear. Heart is regular rate and rhythm. Good pulses ext extremities Objective Labs 02/06/25 05:20 02/06/25 05:20 Labs: Laboratory Results - last 24 hr 02/05/25 02/05/25 02/06/25 10:40 15:55 05:20 WBC 12.4 H 5.5 D RBC 4.76 3.77 L Hgb 14.7 12.0 Hct 44.2 35.0 L MCV 92.9 92.8 MCH 30.9 31.8 MCHC 33.3 34.2 RDW 12.5 12.9 Plt Count 274 167 Neut % (Auto) 84.1 H 77.0 H Lymph % (Auto) 10.4 L 14.4 L [place] % (Auto) 4.6 6.1 Eos % (Auto) 0.6 L 2.1 Baso % (Auto) 0.3 0.4 Neut # (Auto) 33657 H 4200 Lymph # (Auto) 1300 800 L [place] # (Auto) 600 300 Eos # (Auto) 100 100 Baso # (Auto) 0 0 Sodium 127 L 130 L Potassium 4.5 4.0 Chloride 94 L 105 Carbon Dioxide 24 21 L BUN 19 H 11 Creatinine 0.93 0.76 Estimated GFR > 60 > 60 BUN/Creatinine Ratio 20.4 14.5 Glucose 107 111 H Calcium 9.8 8.7 Total Bilirubin 0.7 AST 23 ALT 15 Alkaline Phosphatase 63 Total Protein 5.3 L Albumin 3.4 L Globulin 1.9 Albumin/Globulin Ratio 1.8 Urine Color Yellow Urine Appearance Clear Urine pH 7.0 Ur Specific [place] 1.010 Urine Protein Negative Urine Glucose (UA) Negative Urine Ketones Trace H Urine Occult Blood Trace-intact Urine Nitrate Negative Urine Bilirubin Negative Urine Urobilinogen 0.2 Ur Leukocyte Esterase 1+ H Urine RBC 0-1/hpf Urine WBC 0-1/hpf Ur Squamous Epith Cells None seen Urine Bacteria Occasional (0-1) Ur Culture Indicated? Specimen cultured Vol Urine Centrifuged 10ml (spun) [facility] Medical History Diverticular disease of colon Gastroesophageal reflux disease with esophagitis Osteopenia Weight loss Dysphagia Chronic hyponatremia Overactive bladder Urinary frequency Urge incontinence Cancer UTI (urinary tract infection) Chronic renal failure, stage 3 (moderate) Mixed urge and stress incontinence Incomplete left bundle branch block (LBBB) Lumbar spinal stenosis Viral cardiomyopathy Depression Osteoporosis, unspecified Cyclothymia Sciatica Fractures (~2004) Measles Chicken pox Cataracts, bilateral (~2015) Genital warts (~1984) History of urinary incontinence (~2014) Fecal incontinence (~2014) Heart palpitations Constipation Surgical History H/O hernia repair Anesthesia History of vaginal hysterectomy (~1996) Melanoma (~1981) Family History Father Hypertension Heart disease Mother Cancer Diabetes mellitus Hyperlipidemia Sister Cervical cancer Grandfather No problems noted. Grandmother Hypertension Grandmother Hypertension Social History household members: spouse Smoking Status: Never smoker Assessment & Plan Assessment & Plan narrative: Hyponatremia. Improved. With IV replacement saline. Will decrease to 75 cc an hour and repeat evaluate tomorrow. Expect will be able to discontinue. Etiology a little unclear. Possibly secondary to dehydration. Pelvic ring fracture. Appreciate Orthopedic input. Feel as if surgery is not going to be needed. Will be pain control. And mobilization. Weightbearing as tolerated. We discussed this. IV morphine prior to mobilization and will see how things go. Hopefully can transition to oral relatively soon. Will see how today goes. Ground level fall. Question secondary to loss of consciousness. I think it is going to be incredibly hard to define. Her tele shows possible sick sinus but no other abnormality. She has not had any history of any other changes will obtain carotid and echo to rule out any definitive other abnormality but suspect otherwise will be difficult. May need Zio patch as outpatient. Loss of consciousness or loss of memory could be secondary to concussion although she has no headache certainly did hit her head. CT scan was negative would not order MRI at this time but may need to in the future. Will discuss usual MD. Depression. Seems to be doing well. Will continue to follow. Neck pain. Mechanical. Physical therapy and continue he. Laceration stable. Healing well. Disposition doing well will just have to see how she does with mobilization and pain control. We will follow from there. Workup for possible syncope in process. Time-Based Coding :: [TOTAL MINUTES] spent with patient and on the chart (including review of chart, obtaining history, exam, reviewing outside data, placing orders, documenting exam and treatment plan, and counseling patient) on [DATE]. Quality VTE Deep Vein Thrombosis/Pulmonary Embolism Present on Admission: No
[2025-02-06] MEDS: MORPHINE 4 MG/ML INJ 2 MG IV (09:10)
--- NOTE | 2025-02-06 10:53 | PT.IIE ---
Current Diagnoses Hypo-osmolality and hyponatremia (02/05/25) Other specified disorders of bone density and structure, unspecified site (02/05/25) Other specified fracture of unspecified pubis, initial encounter for closed fracture (02/05/25) Surgical History (Last Reviewed 02/05/25 @ 19:50 by Racquel Light MD) Anesthesia H/O hernia repair History of vaginal hysterectomy (~1996) Melanoma (~1981) Medical History (Last Reviewed 02/05/25 @ 19:50 by Racquel Light MD) Cancer Cataracts, bilateral (~2015) Chicken pox Chronic hyponatremia Chronic renal failure, stage 3 (moderate) Constipation Cyclothymia Depression Diverticular disease of colon Dysphagia Fecal incontinence (~2014) Fractures (~2004) Gastroesophageal reflux disease with esophagitis Genital warts (~1984) Heart palpitations History of urinary incontinence (~2014) Incomplete left bundle branch block (LBBB) Lumbar spinal stenosis Measles Mixed urge and stress incontinence Osteopenia Osteoporosis, unspecified Overactive bladder Sciatica Urge incontinence Urinary frequency UTI (urinary tract infection) Viral cardiomyopathy Weight loss Physical Therapy Inpatient Evaluation/Re-Eval M1 PT/OT-IP Prior Functional Status Start: 02/06/25 08:45 Freq: NEEDED Status: Active Protocol: Document 02/06/25 09:20 MB (Rec: 02/06/25 10:53 MB Desktop) Medical Review Prior Functional Status Medical History Reviewed Yes Communication Unsure baseline diet Mobility and Gait I with SPC, pt reports that she has B shoulder problems and is getting OPPT Activities of Daily Living and IADL's Pt reports I with bathing, dressing, walking and driving Social History Household Members spouse Living Arrangements House Number of Floors (Floors) Two Floors Number of Stairs To Enter/Railing? 2 steps and no rail to enter, sound like platform steps Has a second level but does not have to access Home Environment Standard Height Toilet,Walk in Shower Home Equipment Straight Cane,Hand Held Shower Employment Status Retired M2 PT-IP Current Condition Start: 02/06/25 08:45 Freq: NEEDED Status: Active Protocol: Document 02/06/25 09:20 MB (Rec: 02/06/25 10:53 MB Desktop) Physical Therapy Current Condition Current Condition Evaluation Date 02/06/25 Treatment Diagnosis Fall and right sided pubic ramus fx, mod displaced superior ramus M3 PT-IP Subjective Start: 02/06/25 08:45 Freq: NEEDED Status: Active Protocol: Document 02/06/25 09:20 MB (Rec: 02/06/25 10:53 MB Desktop) Subjective Physical Therapy Visit Type Type Initial Evaluation Visit Start Time 09:20 Visit Stop Time 09:40 Number of GLUE SIZE MACHINE OPERATOR Visits 0 Physical Therapy Visit Comments Patient Comments Pt is pleasant and agreeable to PT, smiling, no pain in bed /at rest. Therapy Pain Assessment Pain When Pain Assessed During Mobility Pain Present Pain Present Pain Reported Location Right glute Scale Used Does not rate Pain Behaviors Facial Grimacing Pain Management Techniques Distraction,Modification of Treatment,Re-positioning, Timing of Activity with Medications M4 PT-IP Mobility and Gait Start: 02/06/25 08:45 Freq: NEEDED Status: Active Protocol: Document 02/06/25 09:20 MB (Rec: 02/06/25 10:53 MB Desktop) PT-Bed Mobility Assessment Supine to Sit Supine to Sit Contact Guard Assistance,Head of Bed Elevated Scooting Scooting to Edge of Bed Contact Guard Assistance PT-Transfer Assessment Sit to and From Stand Sit to and from Stand Contact Guard Assistance Equipment Transfer Assistive Device Gait Belt,Front Wheeled Walker Orthotic/Prosthetic Devices or Brace: No Transfers Transfer Destination Chair Transfer Technique Step-to stepping Transfer Ability Level of Assist Contact Guard Assistance Comments Mobility Comments PT loops right gait belt and places around pt's right foot so she can move her right leg to the left to get OOB, as she states she cannot move her leg. Pt is then about to move to the EOB without physical assistance, HOB increased Gait Assessment Gait Gait Assistance Required: Minimum Assistance Distance (Feet) 1 Able to Maintain Weight Bearing Status Yes During Gait Assistive Devices Assistive Device Gait Belt,Front Wheeled Walker Orthotic/Prosthetic Devices or Brace: No Gait Deviations General Gait Pattern Antalgic,Decreased Stride Length,Decreased Feet Clearance,Flexed Trunk,Step-to Gait Factors Limiting Gait Function Factors Limiting Gait Function Pain Comments Gait Comments PT teaches step-to gait pattern forward and backward and pt performs well and PT reviews again after she is up in the chair. She is very light min A PT-Balance Assessment Sitting Balance and Reactions Static Sitting Balance Ability Good Dynamic Sitting Balance Ability Fair Standing Balance and Reactions Static Standing Balance Ability Fair Dynamic Standing Balance Ability Fair Device Used RW M5 PT-IP Objective Assessments Start: 02/06/25 08:45 Freq: NEEDED Status: Active Protocol: Document 02/06/25 09:20 MB (Rec: 02/06/25 10:53 MB Desktop) Orientation Orientation/Cognition Level of Alertness Alert Language Function Ability No Deficits Noted Safety Awareness Decreased Safety Awareness Memory Description No Deficits Noted Gross Range of Motion Upper Extremity ROM Impairments Pt does not tolerate, reports rotator cuff issues and getting OPPT, defer to OT Lower Extremity ROM Impairments Pt does not tolerate assessment, states she cannot move her right leg but is able to move it with gait belt and is able to take short steps Strength Comments Strength Comments Pt does not tolerate MMT, focused on function and pt tolerates well today Coordination Assessment Assessment Coordination Comments NT Sensation Assessment Comments Sensation Comments NT Muscle Tone Muscle Tone WNL Yes Other Assessments Other Other Assessments B toe changes with toe cushion between left toes M6 PT-IP Treatment Start: 02/06/25 08:45 Freq: NEEDED Status: Active Protocol: Document 02/06/25 09:20 MB (Rec: 02/06/25 10:53 MB Desktop) Physical Therapy Treatment Education Education Provided Safety Other Treatments Other Treatment Performed Nsg advances mobility order to ambulate as tolerated M7 PT-IP Assessment and Plan Start: 02/06/25 08:45 Freq: NEEDED Status: Active Protocol: Document 02/06/25 09:20 MB (Rec: 02/06/25 10:53 MB Desktop) PT Summary Assessment and Plan Potential Rehabilitation Potential Good Status of Condition at Evaluation Evolving Summary Impairments Pain,ROM,Strength,Balance, Coordination,Bed Mobility, Transfers,Gait,Activity Tolerance Progress Towards Goals Progressing Toward Goals Assessment Summary Pt is a 79 y/o female adm after fall and with right sided pubic ramus fracture with mod displacement of superior pubic ramus. Pt reports one other bad fall this year, down the steps. She reports history of falling, use of SPC, B leg and shoulder weakness. She states that she is currently getting OPPT for her shoulder. Pt has no pain at rest and does not show effort in moving right leg in the bed when asked and states it cannot move. PT places looped gait belt around foot and she is able to get to EOB to the left with CGA. Pt requires CGA to min A with RW and cues to step with step-to pattern with RW. Left up in chair with needs in reach. SNF vs home with assistance and HH. Pt reports concern about hurting her husbands back and they have two platform type steps to enter. Goals Bed Mobility Goal Independent Transfer Goal Standby Assistance,Front Wheeled Walker Gait Goal Standby Assistance,Front Wheel Walker Gait Distance 75 Other Goals Pt will ascend and descend two platform steps with LRAD and no more than CGA to allow safe home entrance. Days to Meet Goals 5 Frequency of Treatment Frequency Of Treatment Once a Day Treatment Plan Physical Therapy Treatment Plan Bed Mobility Training,Transfer Training,Gait Training, Therapeutic Exercise,Balance Retraining,Discharge Planning, Hot or Cold Pack,Neuromuscular Re-ed,Coordination Retraining ,Manual Therapy Precautions Other Precautions No precautions or WB limitations in chart Recommendations To Nursing Amount of Assist Needed 1 Person Assist Discharge Recommendations PT Discharge Recommendations Home with / Assist Available,Home Health,Home vs SNF Equipment Needed for Home Before RW set for 5'2-5'3 if pt Discharge cannot borrow from [facility] and recommend a [facility] Transportation Needs at Discharge Private Vehicle - PT assist 2 for witness
[2025-02-06 12:12] VITALS: BP 124/60; PULSE 67
[2025-02-06] MEDS: ACETAMINOPHEN 325 MG TABLET 650 MG PO (14:20)
--- NOTE | 2025-02-06 16:39 | CM.DANOTE ---
B DCP Assessment note pt is a 79yo F admitted under INPT status with hyponatremia/a pelvic fx after a GLF. under care of PCP group and ortho team PCP Dr. Elsy Devries Medicare and [place] GUEVARA reviewed EMR. INPT status as of 02/05. [facility] SNF qualifies 02/08. Per Dr. Ferro, anticipates likely SNF candidate. per chart review, non surgical intervention rec at this time. PT rec home vs HH vs SNF. per chart, pt lives indep in [place] with spouse. 1PA. per chart, pt reports concerns about hurting spouses back if he needs to assist her. would rec RW walker if cannot borrow from [employer] and [facility]. GUN PROFILER unable to meet with pt today due to triaging needs. will f/u tomorrow re: SNF vs home with HH. referrals needed, if SNF pending SNF/accepting facility, earliest could dc to SNF is 02/08 if medically stable. CM team will continue to follow closely for DCP coordination ISMAEL Sapp Discharge Planning/Care Management CM Discharge Assessment Start: 02/06/25 16:37 Freq: Status: Active Protocol: Document 02/06/25 16:37 SL (Rec: 02/06/25 16:39 SL Desktop) Discharge Planning Assessment Assigned Traffic Signal Technician ISMAEL Ocampo DPOA/Assigned Designee Name ronald Lester Contact Information [phone] Advance Directives? Yes Advance Directives on File Yes History Provided By Patient Prior Living Arrangements House Household Members spouse Patient/Family Preference Retirement Facility Additional Comment home vs home with HH vs SNF. referrals needed Review Status In Process Please Provide Date Initial DC 02/06/25 Assessment Was Performed Next Review Type Continued Stay Review
[2025-02-06 20:05] VITALS: BP 142/62; PULSE 63; RESP 19; TEMP 36.4; O2SAT 97
[2025-02-06] MEDS: TRAZODONE 50 MG TABLET 150 MG PO (20:14)
[2025-02-07] MEDS: SODIUM CHLORIDE 0.9% 1,000 ML 75 ML IV (00:30)
[2025-02-07] MEDS: ACETAMINOPHEN 325 MG TABLET 650 MG PO ×4 (00:45→23:37)
[2025-02-07 05:46] LABS: Alanine Aminotransferase 14 IU/L (<35); Albumin 3.1 g/dL (3.5-5.0); Albumin Globulin Ratio 1.6 (1.0-2.8); Alkaline Phosphatase 61 U/L (38-126); Aspartate Aminotransferase 20 IU/L (14-36); BUN Creatinine Ratio 9.6 (6-22); Bilirubin Total 0.5 mg/dL (0.2-1.3); Blood Urea Nitrogen 7 mg/dL (7-17); Calcium 8.3 mg/dL (8.4-10.2); Carbon Dioxide 22 mmol/L (22-32); Chloride 106 mmol/L (98-107); Estimated Glomerular Filt Rate > 60 mL/min (>60); Glucose 101 mg/dL (80-110); HEMOLYSIS < 15 (0-50); Sodium 132 mmol/L (137-145); Total Protein 5.1 g/dL (6.3-8.2)
[2025-02-07 07:00] VITALS: BP 156/62; PULSE 62; RESP 16; TEMP 36.6; O2SAT 95
--- NOTE | 2025-02-07 07:00 | DI.US.S_ITS ---
PROCEDURE: US CAROTID DOPPLER BI INDICATIONS: FALL TECHNIQUE: Color and pulse Doppler interrogation was performed of both carotid systems, with image documentation and velocity measurements. COMPARISON: None. FINDINGS: Stenosis calculations are based on SRU (Society of Radiologists in Ultrasound) criteria. Right side: Brachial blood pressure: 142/64 mm Hg. Common carotid artery peak systolic velocity: 61 cm/sec. Internal carotid artery peak systolic velocity: 78 cm/sec. Internal carotid artery end diastolic velocity: 22 cm/sec. External carotid artery peak systolic velocity: 68 cm/sec. ICA/CCA peak systolic ratio: 1.3 . Dixon scale imaging description: Trace atherosclerotic plaque Percent internal carotid artery stenosis: None . Vertebral artery: Flow direction is antegrade. Left side: Brachial blood pressure: 146/55 mm Hg. Common carotid artery peak systolic velocity: 55 cm/sec. Internal carotid artery peak systolic velocity: 83 cm/sec. Internal carotid artery end diastolic velocity: 22 cm/sec. External carotid artery peak systolic velocity: 69 cm/sec. ICA/CCA peak systolic ratio: 1.5 . Dixon scale imaging description: Trace atherosclerotic plaque Percent internal carotid artery stenosis: None . Vertebral artery: Flow direction is antegrade. IMPRESSION: No evidence of hemodynamically significant stenosis, bilateral proximal internal carotid arteries. Approved by: Spencer June M.D. on 02/07/2025 at 11:35
--- NOTE | 2025-02-07 07:55 | PM.PN.IH.1 ---
Subjective Subjective Date Patient Seen: 02/07/25 Time Patient Seen: 07:55 Interval history: 79-year-old female well known to me admitted over the weekend after falling at home, circumstance that is not exactly clear although patient does have history of falls, sustaining pelvic fracture admitted for pain management Also patient minimally hyponatremic placed on IV fluids and very much corrected at this point Patient he was shaved barely up with physical therapy. Still requiring parental narcotics for pain management Exam Vital Signs (past 8 hours): Oxygen Delivery Method Room Air Oxygen Flow Rate 0 Objective Labs 02/06/25 05:20 02/07/25 05:15 Labs: Laboratory Results - last 24 hr 02/07/25 05:15 Sodium 132 L Potassium 4.0 Chloride 106 Carbon Dioxide 22 BUN 7 Creatinine 0.73 Estimated GFR > 60 BUN/Creatinine Ratio 9.6 Glucose 101 Calcium 8.3 L Total Bilirubin 0.5 AST 20 ALT 14 Alkaline Phosphatase 61 Total Protein 5.1 L Albumin 3.1 L Globulin 2.0 Albumin/Globulin Ratio 1.6 PFSH Medical History Diverticular disease of colon Gastroesophageal reflux disease with esophagitis Osteopenia Weight loss Dysphagia Chronic hyponatremia Overactive bladder Urinary frequency Urge incontinence Cancer UTI (urinary tract infection) Chronic renal failure, stage 3 (moderate) Mixed urge and stress incontinence Incomplete left bundle branch block (LBBB) Lumbar spinal stenosis Viral cardiomyopathy Depression Osteoporosis, unspecified Cyclothymia Sciatica Fractures (~2004) Measles Chicken pox Cataracts, bilateral (~2015) Genital warts (~1984) History of urinary incontinence (~2014) Fecal incontinence (~2014) Heart palpitations Constipation Surgical History H/O hernia repair Anesthesia History of vaginal hysterectomy (~1996) Melanoma (~1981) Family History Father Hypertension Heart disease Mother Cancer Diabetes mellitus Hyperlipidemia Sister Cervical cancer Grandfather No problems noted. Grandmother Hypertension Grandmother Hypertension Social History household members: spouse Smoking Status: Never smoker Assessment & Plan Assessment & Plan narrative: 1. Pelvic fracture after ground level fall-continue with skilled therapy. Try and minimize parental pain medications switch to more oral pain meds in preparation for discharge. Has done pretty well in that regard, almost 24 hours since last IV morphine 2. Hyponatremia-patient chronically hyponatremic but a bit more dramatic than previous. Seems unlikely to me however that this was a significant contributing factor to her fall. Sodium has corrected back to her usual level at this point and I will DC IV fluids 3. Anxiety/depression-continue patient's usual meds 4. History of palpitations-continue low-dose beta-brad for this purpose 5. Disposition-patient to be discharged [facility] to [facility] delete that 6. Question syncope-etiology of patient's fall unclear. Unclear whether she had a syncopal spell or not although does not appear to be the case. Plan for echo and carotid ultrasound today to help rule out significant vascular neurologic and or potential cardiac source of syncope with fall. Time-Based Coding :: [TOTAL MINUTES] spent with patient and on the chart (including review of chart, obtaining history, exam, reviewing outside data, placing orders, documenting exam and treatment plan, and counseling patient) on [DATE]. Quality VTE Deep Vein Thrombosis/Pulmonary Embolism Present on Admission: No PROFEE Human Services Program Specialist Document charge(s): Yes Charge Codes Subsequent inpatient/observation care: [id number]
[2025-02-07] MEDS: HYDROCODONE/ACET 5/325 TABLET 1 TAB PO ×2 (09:54→16:49)
[2025-02-07] MEDS: METOPROLOL ER 25 MG TABLET 12.5 MG PO (09:55)
[2025-02-07] MEDS: CHOLECALCIFEROL (VITAMIN D3) 5,000 UNIT TABLET 5000 UNIT PO (09:55)
[2025-02-07] MEDS: ARIPiprazole 10 MG TABLET 5 MG PO (09:56)
[2025-02-07] MEDS: OXYBUTYNIN 5 MG ER TAB 10 MG PO (09:56)
[2025-02-07] MEDS: ENOXAPARIN 40 MG/0.4 ML SYRINGE SUBCUT (09:57)
[2025-02-07] MEDS: lamoTRIgine 100 MG TABLET 200 MG PO (09:57)
[2025-02-07] MEDS: PSYLLIUM HUSK 1 PACKET PO ×2 (09:58→20:27)
[2025-02-07] MEDS: CALCIUM CARBONATE 500 MG TAB PO ×2 (09:58→20:27)
[2025-02-07 12:00] VITALS: BP 142/64; PULSE 62; RESP 16; TEMP 36.7; O2SAT 98
--- NOTE | 2025-02-07 12:24 | CM.DPNOTE ---
Addendum entered by ISMAEL Sapp 02/07/25 15:52: Per Nadia at , able to accept pt. two pos COVID pt's in other end of building, will need to update pt. MUD ANALYSIS WELL LOGGING OPERATOR completed PASRR, provider signature needed. placed in red chart for provider to sign tomorrow. DC tomorrow to pending medical stability. will need to update pt that COVID pos at . transport pending. will follow closely for DCP coordination SL Addendum entered by ISMAEL Sapp 02/07/25 13:09: received call from Pt in room. talked to some friends, changed preference to [facility] after talking to friend that was recently at . MUD ANALYSIS WELL LOGGING OPERATOR emailed Nadia at kindly asking to review referral. SL Original Note: DCP note MUD ANALYSIS WELL LOGGING OPERATOR reviewed EMR Per chart, sodium improved since admission. Per Elsy note, investigating for potential cardiac cause of GLF today. echo pending. MUD ANALYSIS WELL LOGGING OPERATOR met with pt, spouse, and friend in room and introduced self and role. pt agreeable to spouse and friend being part of DCP conversation. confirms lives indep at baseline at home in [place]. preference is to dc to SNF for recovery period. no hx of SNF or HH. MUD ANALYSIS WELL LOGGING OPERATOR reviewed options and answered questions to best of ability. at this point, preference is 1) [facility] 2) [facility]. OT entered room for eval. MUD ANALYSIS WELL LOGGING OPERATOR [facility] agreed to review. MUD ANALYSIS WELL LOGGING OPERATOR faxed (f [phone]) initial referral information, acceptance pending. Will send OT eval when available. PASRR needed, hx of depression/anxiety. will need hospital exempt PASRR signed. P: anticipate SNF at dc pending accepting facility/medical stability. PASRR needed. transport plan pending. will continue to follow closely ISMAEL Sapp
--- NOTE | 2025-02-07 12:28 | OT.IP.EVAL ---
Current Diagnoses Hypo-osmolality and hyponatremia (02/05/25) Other specified disorders of bone density and structure, unspecified site (02/05/25) Other specified fracture of unspecified pubis, initial encounter for closed fracture (02/05/25) Past Medical History (Last Reviewed 02/05/25 @ 19:50 by Racquel Light MD) Cancer Cataracts, bilateral (~2015) Chicken pox Chronic hyponatremia Chronic renal failure, stage 3 (moderate) Constipation Cyclothymia Depression Diverticular disease of colon Dysphagia Fecal incontinence (~2014) Fractures (~2004) Gastroesophageal reflux disease with esophagitis Genital warts (~1984) Heart palpitations History of urinary incontinence (~2014) Incomplete left bundle branch block (LBBB) Lumbar spinal stenosis Measles Mixed urge and stress incontinence Osteopenia Osteoporosis, unspecified Overactive bladder Sciatica Urge incontinence Urinary frequency UTI (urinary tract infection) Viral cardiomyopathy Weight loss Surgical History (Last Reviewed 02/05/25 @ 19:50 by Racquel Light MD) Anesthesia H/O hernia repair History of vaginal hysterectomy (~1996) Melanoma (~1981) Occupational Therapy Inpatient Evaluation/Re-Eval M1 PT/OT-IP Prior Functional Status Start: 02/06/25 08:45 Freq: NEEDED Status: Active Protocol: Document 02/07/25 13:23 CGR (Rec: 02/07/25 13:39 CGR Desktop) Medical Review Prior Functional Status Medical History Reviewed Yes Communication Unsure baseline diet Mobility and Gait I with SPC, pt reports that she has B shoulder problems and is getting OPPT Activities of Daily Living and IADL's Pt reports I with bathing, dressing, walking and driving Social History Household Members spouse Living Arrangements House Number of Floors (Floors) Two Floors Number of Stairs To Enter/Railing? 2 steps and no rail to enter, sound like platform steps Has a second level but does not have to access Home Environment Standard Height Toilet,Walk in Shower Home Equipment Straight Cane,Hand Held Shower Employment Status Retired M2 OT-IP Current Condition Start: 02/07/25 12:44 Freq: Status: Active Protocol: Document 02/07/25 13:23 CGR (Rec: 02/07/25 13:39 CGR Desktop) Occupational Therapy Current Condition Current Condition Evaluation Date 02/07/25 Treatment Diagnosis fall with R pubic ramus fx, mod displaced superior ramus Diagnosis Onset Date 02/05/25 M3 OT- IP Subjective and Pain Start: 02/07/25 12:44 Freq: Status: Active Protocol: Document 02/07/25 13:23 CGR (Rec: 02/07/25 13:39 CGR Desktop) OT- Subjective Occupational Therapy Visit Type Type Initial Evaluation Visit Start Time 11:55 Visit Stop Time 12:28 Notes Pt in with CM when OT entered. OT Pain Assessment Pain When Pain Assessed During Mobility Pain Present Pain Present Pain Reported Location Right hip Intensity 7 Scale Used Numeric (0 - 10) Management Techniques Modification of Treatment,Re- positioning,Timing of Activity with Medications M4 OT- IP ADL's Start: 02/07/25 12:44 Freq: Status: Active Protocol: Document 02/07/25 13:23 CGR (Rec: 02/07/25 13:39 CGR Desktop) OT AVV-Susx-Eikdoyh General Evaluation Self-Feeding Ability Independent Comments OT Self-Feeding Comments lunch provided to pt at end of session OT ADL-Grooming General Evaluation Grooming Ability Standby Assistance Comments OT Grooming Comments Pt washed hands standing at sink OT ADL-Oral Care Comments Oral Care Comments not performed OT ADL-Dressing General Eval Lower Body Dressing Ability Total Assistance Areas Needing Assistance Socks OT ADL-Toileting Comments OT Toileting Comments not performed OT ADL-Bathing Comments OT Bathing Comments not performed M5 OT- IP IADL's Start: 02/07/25 12:44 Freq: Status: Active Protocol: Document 02/07/25 13:23 CGR (Rec: 02/07/25 13:39 CGR Desktop) OT-Instrumental Activities of Daily Living Deficits IADL Deficits Identified No Deficits Home Safety Awareness Awareness of Need for Assistance at Home Good Awareness Ability to Problem Solve Emergency Able to Problem Solve Situations Medication Management Medication Management No Deficits Identified Money Management Money Management No Deficits Identified Meal Preparation Meal Preparation Comments Pt was IND at baseline. Doctor Of Optometry Doctor Of Optometry Comments Pt was IND at baseline. 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 OT- IP Functional Cognition Start: 02/07/25 12:44 Freq: Status: Active Protocol: Document 02/07/25 13:23 CGR (Rec: 02/07/25 13:39 CGR Desktop) Cognitive Factors Limiting Selfcare Function Cognitive Ability Level of Alertness Alert Patient Orientation Name,Age,Birthday,Month,Date, Year,Day of Week,Place, Situation Attention Span Ability Capable of Focused Attention, Capable of Sustained Attention Ability to Follow Commands Able to Follow One Step Commands with Increased Time, Able to Follow One Step Commands with Repetition Cognitive Comments Cognitive Assessment Comments Pt is able to follow commands. OT- Vision and Hearing OT- Hearing Assessment OT- Hearing Assessment WFL OT- Vision Assessment Visual Acuity WFL Visual Attentiveness WFL Occular Pursuits WFL M7 OT- IP Mobility and Balance Start: 02/07/25 12:44 Freq: Status: Active Protocol: Document 02/07/25 13:23 CGR (Rec: 02/07/25 13:39 CGR Desktop) OT- Bed Mobility Assessment Supine to Sit Supine to Sit Assist Standby Assistance,Head of Bed Elevated,Bedrails Scooting Scooting to Edge of Bed Standby Assistance,Head of Bed Elevated,Bedrails OT-Transfer Assessment Sit to and From Stand Sit to and from Stand Contact Guard Assistance Transfers Transfer Ability Contact Guard Assistance Technique Transfer Destination Bed,Chair Transfer Technique Stand Step Pivot Devices Transfer Assistive Devices Gait Belt,Front Wheeled Walker Comments Mobility Comments Pt needs VC and encouragement to perform without assist. OT- Gait Assessment Gait Gait Assistance Required: Contact Guard Assist Assistive Devices Assistive Device Gait Belt,Front Wheeled Walker Comments Gait Ability Comments Pt ambulated from bed to chair then from chair to sink ~7 feet with extra time and use of walker. Pt states that she feels like it gets better the more she moves but doesn't feel like she can walk back to the chair. Chair brought to her and pt returned to bedside via chair. Pt encouraged to sit in chair for lunch and assured pt that nursing would get her back to bed afterwards . OT- Balance Assessment Sitting Balance and Reactions Static Sitting Balance Ability Good Dynamic Sitting Balance Ability Good M8 OT- IP Objective Assessments Start: 02/07/25 12:44 Freq: Status: Active Protocol: Document 02/07/25 13:23 CGR (Rec: 02/07/25 13:39 CGR Desktop) OT Gross Range of Motion Upper Extremity Range of Motion ROM Impairments B shld restrictions OT Strength Comments Strength Comments limitations to B shlds otherwise 4/5 OT- Coordination Assessment Upper Extremity Finger to Nose Test Within Functional Limits Finger Tapping Test Within Functional Limits OT-Muscle Tone Assessment Muscle Tone WNL Yes OT Sensation Assessment Edema Edema Absent M9 OT- IP Assessment and Plan Start: 02/07/25 12:44 Freq: Status: Active Protocol: Document 02/07/25 13:23 CGR (Rec: 02/07/25 13:39 CGR Desktop) OT Summary Assessment and Plan Potential Rehabilitation Potential Good Analytic Complexity at Evaluation High Summary OT Impairments Pain,Range of Motion,Strength, Balance,Functional Mobility, Grooming,Dressing,Toileting, Bathing,Toilet Transfers, Shower Transfers,Activity Tolerance Progress Towards Goals Progressing Toward Goals Assessment Summary Pt presents as a high complexity evaluation s/p admit for fall with R pelvic fx. Pt is mobilizing well with extra time and VC. Pt is effective at directing her care. Pt wants to go to a SNF for some time and has questions regarding SNF. CM aware. Pt is progressing well and will continue to benefit from therapy services. Goals Grooming Goal Independent Dressing Goal Independent Toileting Goal Independent Bathing Goal Independent Toilet Transfer Goal Independent Shower Transfer Goal Independent Days to Meet Goals 15 Frequency of Treatment Other frequency 5x per week Treatment Plan OT Treatment Plan ADL Training,Functional Mobility,Patient/Family Education,Discharge Planning Other Treatment Recommendations and Next ADLs at sink if able. Treatment Focus Discharge Recommendations OT Discharge Recommendations SNF Rehab Transportation Needs at Discharge Private Vehicle
--- NOTE | 2025-02-07 15:12 | DIET.CONS ---
Dietary Consultation Note Admission Date: 02/05/2025 15:14 Assessment: 79 y F admitted after fall. Dietitian screened for low BMI for age. Met with pt in room. Reports weight has been stable around 102 lb (46 kg) for last year or so. Per EMR, weight 110 lb in [place] this year and between 103-110 lb over 2023. Pt has not noted any recent weight loss. Reports focusing on good fiber sources. Ht: 157.48 cm Wt: 47.174 kg BMI: 19.0 UBW: 50.094 kg on 11/19/24 Last BM: 02/05/25 (02/05/25 16:40) MNA: 12 Claudio Score: 19 Diet: 02/05/25 Breakfast General (Regular) Diet Diet Modifications: Nutrition Percent Meal Consumed 50% 02/07/25 10:00 Percent Meal Consumed 1/2 egg salad sandwich 02/06/25 20:40 Percent Meal Consumed 50% 02/06/25 18:00 Percent Meal Consumed 25% 02/06/25 07:00 Percent Meal Consumed 75% 02/05/25 18:45 Labs: RBC 3.77 X10^6/uL (4.0-5.2) L 02/06/25 05:20 Hgb 12.0 g/dL (12.0-16.0) 02/06/25 05:20 Hct 35.0 % (36-46) L 02/06/25 05:20 Creatinine 0.73 mg/dL (0.52-1.04) 02/07/25 05:15 Nutrition Diagnosis: BMI underweight for age r/t inadequate oral intake aeb BMI 19.0 Interventions: -Pt trying to increase fiber intake, encouraged adequate fluid intake with fiber sources and still including protein sources with meals, reviewed protein sources available here and ones to include at home -Small freq meals to help get adequate calories throughout day EER: [id number] kcals (30-35 kcals/kg per BMI) 50 g protein (1g/kg per age) Monitoring/Evaluations: po intakes Electronically Signed by: Libby Ramirez 02/07/25 15:12 Clinical Dietitian [address] [address]
--- NOTE | 2025-02-07 17:02 | PC.NURSE ---
1700 Vaseline to laceration on R forehead. Well approximated with sutures and open to air.
--- NOTE | 2025-02-07 17:26 | PT.IPTN ---
Current Diagnoses Hypo-osmolality and hyponatremia (02/05/25) Other specified disorders of bone density and structure, unspecified site (02/05/25) Other specified fracture of unspecified pubis, initial encounter for closed fracture (02/05/25) Physical Therapy Treatment Note M2 PT-IP Current Condition Start: 02/06/25 08:45 Freq: NEEDED Status: Active Protocol: Document 02/06/25 09:20 MB (Rec: 02/06/25 10:53 MB Desktop) Physical Therapy Current Condition Current Condition Evaluation Date 02/06/25 Treatment Diagnosis Fall and right sided pubic ramus fx, mod displaced superior ramus M3 PT-IP Subjective Start: 02/06/25 08:45 Freq: NEEDED Status: Active Protocol: Document 02/07/25 16:40 MB (Rec: 02/07/25 17:26 MB Desktop) Subjective Physical Therapy Visit Type Type Treatment Note Visit Start Time 16:40 Visit Stop Time 16:50 Number of OBSTETRICS GYN PHYSICIAN Visits 0 Physical Therapy Visit Comments Patient Comments Pt states she does not want to get up to the chair. Therapy Pain Assessment Pain When Pain Assessed At Rest Pain Present Pain Present Denied Pain M4 PT-IP Mobility and Gait Start: 02/06/25 08:45 Freq: NEEDED Status: Active Protocol: Document 02/07/25 16:40 MB (Rec: 02/07/25 17:26 MB Desktop) PT-Transfer Assessment Comments Mobility Comments Bed flat, pt is able to partially bridge for bed pain and she then straightens out her right leg and c/o high pain and inability to perform further PT M5 PT-IP Objective Assessments Start: 02/06/25 08:45 Freq: NEEDED Status: Active Protocol: Document 02/06/25 09:20 MB (Rec: 02/06/25 10:53 MB Desktop) Orientation Orientation/Cognition Level of Alertness Alert Language Function Ability No Deficits Noted Safety Awareness Decreased Safety Awareness Memory Description No Deficits Noted Gross Range of Motion Upper Extremity ROM Impairments Pt does not tolerate, reports rotator cuff issues and getting OPPT, defer to OT Lower Extremity ROM Impairments Pt does not tolerate assessment, states she cannot move her right leg but is able to move it with gait belt and is able to take short steps Strength Comments Strength Comments Pt does not tolerate MMT, focused on function and pt tolerates well today Coordination Assessment Assessment Coordination Comments NT Sensation Assessment Comments Sensation Comments NT Muscle Tone Muscle Tone WNL Yes Other Assessments Other Other Assessments B toe changes with toe cushion between left toes M6 PT-IP Treatment Start: 02/06/25 08:45 Freq: NEEDED Status: Active Protocol: Document 02/07/25 16:40 MB (Rec: 02/07/25 17:26 MB Desktop) Physical Therapy Treatment Other Treatments Other Treatment Performed Extensive education in benefits of getting up to try to use the BSC to help with mobility and bladder evacuation, benefits of trying one step up with PT if PT brings into room and pt declines M7 PT-IP Assessment and Plan Start: 02/06/25 08:45 Freq: NEEDED Status: Active Protocol: Document 02/07/25 16:40 MB (Rec: 02/07/25 17:26 MB Desktop) PT Summary Assessment and Plan Potential Rehabilitation Potential Fair Status of Condition at Evaluation Evolving Summary Impairments Pain,ROM,Strength,Balance, Coordination,Bed Mobility, Transfers,Gait,Activity Tolerance Progress Towards Goals Progressing Toward Goals Assessment Summary Pt does not tolerate mobility with PT this afternoon and refuses to get up to BSC with assistance and requests bed alberto. Nsg will bring pain meds. Goals Bed Mobility Goal Independent Transfer Goal Standby Assistance,Front Wheeled Walker Gait Goal Standby Assistance,Front Wheel Walker Gait Distance 75 Other Goals Pt will ascend and descend two platform steps with LRAD and no more than CGA to allow safe home entrance. Days to Meet Goals 5 Frequency of Treatment Frequency Of Treatment Once a Day Treatment Plan Physical Therapy Treatment Plan Bed Mobility Training,Transfer Training,Gait Training, Therapeutic Exercise,Balance Retraining,Discharge Planning, Hot or Cold Pack,Neuromuscular Re-ed,Coordination Retraining ,Manual Therapy Precautions Other Precautions No precautions or WB limitations in chart Recommendations To Nursing Amount of Assist Needed 1 Person Assist Discharge Recommendations PT Discharge Recommendations SNF Rehab Transportation Needs at Discharge Private Vehicle - PT assist x1-2
[2025-02-07 19:00] VITALS: BP 120/61; PULSE 71; RESP 16; TEMP 36.6; O2SAT 93
[2025-02-07] MEDS: TRAZODONE 50 MG TABLET 150 MG PO (20:27)
[2025-02-07] MEDS: SODIUM CHLORIDE 0.9% FLUSH 10 ML IV (22:08)
[2025-02-07] MEDS: DOCUSATE 100 MG CAPSULE 200 MG PO (23:38)
[2025-02-08] MEDS: ACETAMINOPHEN 325 MG TABLET 650 MG PO ×2 (05:32→21:38)
[2025-02-08 07:00] VITALS: BP 190/76; PULSE 68; RESP 16; TEMP 36.6; O2SAT 96
[2025-02-08] MEDS: HYDROCODONE/ACET 5/325 TABLET 1 TAB PO ×3 (07:11→13:39)
--- NOTE | 2025-02-08 07:21 | DI.ECHO.S_ITS ---
[facility] : : [id number] [place] : : [id number] : : Phone: [phone] Echocardiogram Report + + :Name: SOMMER FREED Study Date: 02/08/2025 Height: 62 in : :[facility] ReadingLocation: Weight: 104 lb : : Gender: Female BSA: 1.4 m2 : :: 1945 Age: 79 yrs BP: 120/61 mmHg: :Reason For Study: FALL, SYNCOPE : :Ordering Physician: TREVON, : :BAN Performed By: Virgie Elena : :Referring: BAN LESTER : + + Interpretation Summary The left ventricle is normal in size. Left ventricular systolic function is borderline reduced. The ejection fraction is estimated to be 45-50%. Left ventricular function has slightly worsened compared to the previous exam. There is borderline global hypokinesis that is somewhat more prominent in the distal inferior wall and apex that appears unchanged from the previous study. 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 Diastolic parameters suggest a relaxation abnormality of the left ventricle, consistent with probable normal filling pressures. The right ventricle is normal in size and function. Pulmonary artery pressures cannot be estimated because of the lack of a measurable TR jet velocity. The left atrium is mildly dilated. There is mild mitral regurgitation. The aortic root is normal size. Procedure: A two-dimensional transthoracic echocardiogram with color flow and Doppler was performed. The study quality was technically adequate. Comparison is made with the echocardiogram of 01/07/2022. Patient was scanned in the supine position due to pelvis fracture. The patient was in sinus rhythm with heart rates between 63-75 bpm during the exam. Left Ventricle: The left ventricle is normal in size. There is normal left ventricular wall thickness. 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 Left ventricular systolic function is borderline reduced. The ejection fraction is estimated to be 45-50%. Left ventricular function has slightly worsened compared to the previous exam. There is borderline global hypokinesis that is somewhat more prominent in the distal inferior wall and apex that appears unchanged from the previous study. 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 Diastolic parameters suggest a relaxation abnormality of the left ventricle, consistent with probable normal filling pressures. Right Ventricle: The right ventricle is normal in size and function. Atria: The left atrium is mildly dilated. Right atrial size is normal. There is no Doppler evidence for an interatrial shunt. Mitral Valve: The mitral valve leaflets appear mildly thickened, but open well. The mitral valve leaflets appear to open well. There is mild mitral regurgitation. Aortic Valve: The aortic valve is not well visualized. The aortic valve opens well. There is no aortic valve stenosis. There is trace aortic regurgitation. Tricuspid Valve: The tricuspid valve leaflets are thin and pliable. There is trace tricuspid regurgitation. Pulmonary artery pressures cannot be estimated because of the lack of a measurable TR jet velocity. Pulmonic Valve: The pulmonic valve is not well visualized. There is no pulmonic valvular regurgitation. Great Vessels: The aortic root is normal size. The ascending aorta could not be visualized. The IVC is of normal diameter and collapses greater than 50% with a sniff. This suggests a low right atrial pressure of 3 mm Hg. Pericardium/ Pleura There is no pericardial effusion. There is no pleural effusion. MMode/2D Measurements & Calculations LVIDd: 4.3 cm LVOT diam: 2.0 cm LVIDs: 3.3 cm Ao root diam: 2.7 cm FS: 21.7 % Ao Arch Diam (Prox Trans): 2.7 cm EPSS: 0.69 cm IVSd: 0.86 cm LVPWd: 0.75 cm LV espinoza. diameter/BSA (cm/m^2): 2.9 LV sys. diameter/BSA (cm/m^2): 2.3 LA A2 area: 21.0 cm2 RA long axis: 4.6 cm LA A4 area: 13.8 cm2 RA area: 14.9 cm2 LA length (vol): 4.5 cm RA vol: 40.7 ml LA vol: 54.6 ml RA : 28.1 ml/m2 LA vol index: 37.7 ml/m2 IVC diam: 1.7 cm RVD1 (basal): 3.8 cm RVD2 (mid): 2.8 cm TAPSE: 2.4 cm Doppler Measurements & Calculations Ao V2 max: 158.9 cm/sec LVOT Max Fredi: 116.8 cm/sec Ao V2 mean: 103.1 cm/sec LV V1 max P.5 mmHg Ao max P.1 mmHg LV V1 VTI: 22.6 cm Ao mean P.0 mmHg JESUS(I,D): 2.4 cm2 Ao V2 VTI: 30.9 cm JESUS(V,D): 2.4 cm2 sev ratio: 0.73 JESUS indexed to BSA (cm^2/m^2): 1.6 MV E max fredi: 58.5 cm/sec SV(LVOT): 72.8 ml MV A max fredi: 91.7 cm/sec MV E/A: 0.64 Med Peak E' Fredi: 6.5 cm/sec E/E' med: 9.0 Lat Peak E' Fredi: 8.7 cm/sec E/E' lat: 6.7 E/e' average: 7.9 MV dec time: 0.18 sec Reading Physician:01:28 PM
--- NOTE | 2025-02-08 08:35 | P.PN_ITS ---
Subjective Subjective Date Patient Seen: 02/08/25 Time Patient Seen: 08:10 Interval history: Patient is sitting up eating breakfast Really no complaints. She was a bit unhappy with the radioactivity technician who arrived at her doorway without introducing himself and she declined to let him perform an exam. Apparently that is been straightened out now with the assistance of nursing staff an echo will be done later Up with physical therapy yesterday. Reports pain was tolerable she was hesitant to use that good of a word but was tolerable. Last morphine was given more than 24 hours ago. He was use the hydrocodone orally sparingly Ultrasound carotids yesterday unremarkable Exam Vital Signs (past 8 hours): Oxygen Delivery Method Room Air Oxygen Flow Rate 0 Objective Imaging Carotid ultrasound: Radiologist's impression: PROCEDURE: US CAROTID DOPPLER BI INDICATIONS: FALL TECHNIQUE: Color and pulse Doppler interrogation was performed of both carotid systems, with image documentation and velocity measurements. COMPARISON: None. FINDINGS: Stenosis calculations are based on SRU (Society of Radiologists in Ultrasound) criteria. Right side: Brachial blood pressure: 142/64 mm Hg. Common carotid artery peak systolic velocity: 61 cm/sec. Internal carotid artery peak systolic velocity: 78 cm/sec. Internal carotid artery end diastolic velocity: 22 cm/sec. External carotid artery peak systolic velocity: 68 cm/sec. ICA/CCA peak systolic ratio: 1.3 . Dixon scale imaging description: Trace atherosclerotic plaque Percent internal carotid artery stenosis: None . Vertebral artery: Flow direction is antegrade. Left side: Brachial blood pressure: 146/55 mm Hg. Common carotid artery peak systolic velocity: 55 cm/sec. Internal carotid artery peak systolic velocity: 83 cm/sec. Internal carotid artery end diastolic velocity: 22 cm/sec. External carotid artery peak systolic velocity: 69 cm/sec. ICA/CCA peak systolic ratio: 1.5 . Dixon scale imaging description: Trace atherosclerotic plaque Percent internal carotid artery stenosis: None . Vertebral artery: Flow direction is antegrade. IMPRESSION: No evidence of hemodynamically significant stenosis, bilateral proximal internal carotid arteries. Labs 02/06/25 05:20 02/07/25 05:15 [facility] Medical History Diverticular disease of colon Gastroesophageal reflux disease with esophagitis Osteopenia Weight loss Dysphagia Chronic hyponatremia Overactive bladder Urinary frequency Urge incontinence Cancer UTI (urinary tract infection) Chronic renal failure, stage 3 (moderate) Mixed urge and stress incontinence Incomplete left bundle branch block (LBBB) Lumbar spinal stenosis Viral cardiomyopathy Depression Osteoporosis, unspecified Cyclothymia Sciatica Fractures (~2004) Measles Chicken pox Cataracts, bilateral (~2015) Genital warts (~1984) History of urinary incontinence (~2014) Fecal incontinence (~2014) Heart palpitations Constipation Surgical History H/O hernia repair Anesthesia History of vaginal hysterectomy (~1996) Melanoma (~1981) Family History Father Hypertension Heart disease Mother Cancer Diabetes mellitus Hyperlipidemia Sister Cervical cancer Grandfather No problems noted. Grandmother Hypertension Grandmother Hypertension Social History household members: spouse Smoking Status: Never smoker Assessment & Plan Assessment & Plan narrative: 1. Pelvic fracture after ground level fall-continue with skilled therapy. I have DC the IV morphine. Will continue to use the oral hydrocodone, probably helps to pre treat prior to physical therapy etcetera 2. Hyponatremia-did not choose to recheckthis morning. Yesterday's numbers back to baseline. 3. Anxiety/depression-continue patient's usual meds 4. History of palpitations-continue low-dose beta-brad for this purpose 5. Disposition-patient to be discharged to residential. Probably ready to go tomorrow 6. Question syncope-etiology of patient's fall unclear. Carotid ultrasound negative. Awaiting echo as above. Nothing on telemetry to suggest rhythm disturbance Time-Based Coding :: [TOTAL MINUTES] spent with patient and on the chart (including review of chart, obtaining history, exam, reviewing outside data, placing orders, documenting exam and treatment plan, and counseling patient) on [DATE]. 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
[2025-02-08] MEDS: METOPROLOL ER 25 MG TABLET 12.5 MG PO (09:13)
[2025-02-08] MEDS: CHOLECALCIFEROL (VITAMIN D3) 5,000 UNIT TABLET 5000 UNIT PO (09:13)
[2025-02-08] MEDS: OXYBUTYNIN 5 MG ER TAB 10 MG PO (09:13)
[2025-02-08] MEDS: lamoTRIgine 100 MG TABLET 200 MG PO (09:13)
[2025-02-08] MEDS: CALCIUM CARBONATE 500 MG TAB PO ×2 (09:14→20:12)
[2025-02-08] MEDS: PSYLLIUM HUSK 1 PACKET PO ×2 (09:14→20:12)
[2025-02-08] MEDS: ENOXAPARIN 40 MG/0.4 ML SYRINGE SUBCUT (09:14)
[2025-02-08] MEDS: ARIPiprazole 10 MG TABLET 5 MG PO (09:52)
[2025-02-08] MEDS: SODIUM CHLORIDE 0.9% FLUSH 10 ML IV ×2 (09:52→20:12)
[2025-02-08 10:00] VITALS: BP 145/83
--- NOTE | 2025-02-08 10:35 | PT.IPTN ---
Current Diagnoses Hypo-osmolality and hyponatremia (02/05/25) Other specified disorders of bone density and structure, unspecified site (02/05/25) Other specified fracture of unspecified pubis, initial encounter for closed fracture (02/05/25) Physical Therapy Treatment Note M2 PT-IP Current Condition Start: 02/06/25 08:45 Freq: NEEDED Status: Active Protocol: Document 02/06/25 09:20 MB (Rec: 02/06/25 10:53 MB Desktop) Physical Therapy Current Condition Current Condition Evaluation Date 02/06/25 Treatment Diagnosis Fall and right sided pubic ramus fx, mod displaced superior ramus M3 PT-IP Subjective Start: 02/06/25 08:45 Freq: NEEDED Status: Active Protocol: Document 02/08/25 10:35 AB (Rec: 02/08/25 12:41 AB [id number]) Subjective Physical Therapy Visit Type Type Treatment Note Visit Start Time 10:35 Visit Stop Time 11:05 Number of FLOOR COVERING PRINTER Visits 0 Physical Therapy Visit Comments Patient Comments agreeable to do PT Therapy Pain Assessment Pain When Pain Assessed During Mobility Pain Present Pain Present Pain Reported Location Right hip Scale Used pain scale not stated Pain Management Techniques Distraction,Modification of Treatment,Re-positioning, Timing of Activity with Medications M4 PT-IP Mobility and Gait Start: 02/06/25 08:45 Freq: NEEDED Status: Active Protocol: Document 02/08/25 10:35 AB (Rec: 02/08/25 12:41 AB [id number]) PT-Bed Mobility Assessment Supine to Sit Supine to Sit Standby Assistance Sit to Supine Sit to Supine Standby Assistance PT-Transfer Assessment Sit to and From Stand Sit to and from Stand Contact Guard Assistance,1 Person Assistance,Use of Upper Extremities Equipment Transfer Assistive Device Gait Belt,Front Wheeled Walker Orthotic/Prosthetic Devices or Brace: No Comments Mobility Comments pt in bed and agreed to do PT. agricultural technician came in and will do ECHO after PT session and wants pt back in bed. pt completed supine to sit SBA with cues for techniques and needed assist to position belt under RLE as a leg quality officer. pt able to sit on EOB SBA. sit to stand CGA and ambulated ~ 15 ft using FWW CGA. pt presents with very slow antalgic gait. pt ambulated back to EOB. pt completed sit to supine SBA with use of safety belt as leg quality officer. cued for techniques. positioned pt in bed. call light and table placed within reach. Gait Assessment Gait Gait Assistance Required: Contact Guard Assist Distance (Feet) 15 Able to Maintain Weight Bearing Status Yes During Gait Assistive Devices Assistive Device Gait Belt,Front Wheeled Walker Orthotic/Prosthetic Devices or Brace: No Gait Deviations General Gait Pattern Decreased Stride Length, Decreased Feet Clearance,Step- to Gait Factors Limiting Gait Function Factors Limiting Gait Function Decreased Activity Tolerance, Decreased Strength,Difficulty Following Directions,Limited Range of Motion,Pain,Poor Balance,Poor Safety Awareness M5 PT-IP Objective Assessments Start: 02/06/25 08:45 Freq: NEEDED Status: Active Protocol: Document 02/06/25 09:20 MB (Rec: 02/06/25 10:53 MB Desktop) Orientation Orientation/Cognition Level of Alertness Alert Language Function Ability No Deficits Noted Safety Awareness Decreased Safety Awareness Memory Description No Deficits Noted Gross Range of Motion Upper Extremity ROM Impairments Pt does not tolerate, reports rotator cuff issues and getting OPPT, defer to OT Lower Extremity ROM Impairments Pt does not tolerate assessment, states she cannot move her right leg but is able to move it with gait belt and is able to take short steps Strength Comments Strength Comments Pt does not tolerate MMT, focused on function and pt tolerates well today Coordination Assessment Assessment Coordination Comments NT Sensation Assessment Comments Sensation Comments NT Muscle Tone Muscle Tone WNL Yes Other Assessments Other Other Assessments B toe changes with toe cushion between left toes M6 PT-IP Treatment Start: 02/06/25 08:45 Freq: NEEDED Status: Active Protocol: Document 02/08/25 10:35 AB (Rec: 02/08/25 12:41 AB [id number]) Physical Therapy Treatment Education Education Provided Safety M7 PT-IP Assessment and Plan Start: 02/06/25 08:45 Freq: NEEDED Status: Active Protocol: Document 02/08/25 10:35 AB (Rec: 02/08/25 12:41 AB [id number]) PT Summary Assessment and Plan Potential Rehabilitation Potential Good Summary Impairments Pain,ROM,Strength,Balance, Coordination,Sensation,Bed Mobility,Transfers,Gait, Activity Tolerance Progress Towards Goals Slow Progress due to Pain,Slow Progress due to Activity Tolerance Assessment Summary pt improving slowly with mobility requiring CGA for ambulation using FWW but was only able to ambulate ~ 15 ft. pt continues to have decrease activity tolerance affecting level of assistance. pt will benefit from SNF rehab to improve overall strength and mobility independence. Goals Bed Mobility Goal Independent Transfer Goal Standby Assistance,Front Wheeled Walker Gait Goal Standby Assistance,Front Wheel Walker Gait Distance 75 Other Goals Pt will ascend and descend two platform steps with LRAD and no more than CGA to allow safe home entrance. Days to Meet Goals 5 Frequency of Treatment Frequency Of Treatment Once a Day Treatment Plan Physical Therapy Treatment Plan Bed Mobility Training,Transfer Training,Gait Training, Therapeutic Exercise,Balance Retraining,Discharge Planning, Hot or Cold Pack,Neuromuscular Re-ed,Coordination Retraining ,Manual Therapy Weight Bearing Status Weight Bearing Status Weight Bear as Tolerated Allowed Weight Bearing Amount (enter % RLE WBAT per Dr. Light's note or #) (%) Recommendations To Nursing Amount of Assist Needed 1 Person Assist Discharge Recommendations PT Discharge Recommendations SNF Rehab Transportation Needs at Discharge Private Vehicle - PT assist 1
--- NOTE | 2025-02-08 11:39 | CM.DPNOTE ---
Addendum entered by ISMAEL Sapp 02/08/25 15:13: NEEDLE LOOM OPERATOR HELPER received call from pt, pt inquiring about her medications being sent to [facility]. NEEDLE LOOM OPERATOR HELPER educated pt that we send all the ordered scripts from the provider to [facility]. NEEDLE LOOM OPERATOR HELPER updated pt on 11am transport for tomorrow. pt appreciative of updates and remains in agreement with DCP. SL Addendum entered by ISMAEL Sapp 02/08/25 14:42: Per Nadia at , transport set up for 11am tomorrow. NEEDLE LOOM OPERATOR HELPER updated Dr. Chin via Webex. SL Original Note: DCP note NEEDLE LOOM OPERATOR HELPER reviewed EMR per ana note, pt likely stable to dc tomorrow. echo pending for today. Provider signed PASRR and place script in chart, signed med list needed day of dc. NEEDLE LOOM OPERATOR HELPER met with pt, spouse, and friend in room. updated pt on acceptance to [facility]. pt report understanding active COVID in building and wishes to proceed with dc to [facility]. NEEDLE LOOM OPERATOR HELPER answered questions to best of ability. pt continues to report preference to dc to [facility]. Per Nadia, can accept pt tomorrow, transport time pending. CC Zoe kindly agreed to send initial ref packet to [facility]. P: anticipate dc to [facility] when medically stable, time pending. PASRR completed. CM team will continue to follow closely for DCP coordination ISMAEL Sapp
--- NOTE | 2025-02-08 14:21 | OT.IP.TRT ---
Current Diagnoses Hypo-osmolality and hyponatremia (02/05/25) Other specified disorders of bone density and structure, unspecified site (02/05/25) Other specified fracture of unspecified pubis, initial encounter for closed fracture (02/05/25) Occupational Therapy Treatment Note M2 OT-IP Current Condition Start: 02/07/25 12:44 Freq: Status: Active Protocol: Document 02/07/25 13:23 CGR (Rec: 02/07/25 13:39 CGR Desktop) Occupational Therapy Current Condition Current Condition Evaluation Date 02/07/25 Treatment Diagnosis fall with R pubic ramus fx, mod displaced superior ramus Diagnosis Onset Date 02/05/25 M3 OT- IP Subjective and Pain Start: 02/07/25 12:44 Freq: Status: Active Protocol: Document 02/08/25 14:23 CCC (Rec: 02/08/25 14:36 CCC Desktop) OT- Subjective Occupational Therapy Visit Type Type Treatment Note Visit Start Time 10:20 Visit Stop Time 14:21 Notes Pt seen for split treat 1020- 1033, [id number]. Occupational Therapy Visit Comments Patient Comments Pt agreed to get up and try to practice use of LB dressing equipment. Ice pack given to pt for her right hip pain. Bed alarm turned on. Patient/Caregiver Goals To get better. OT Pain Assessment Pain When Pain Assessed During Mobility Pain Present Pain Present Pain Reported Location Right hip Intensity 5 Scale Used Numeric (0 - 10) M4 OT- IP ADL's Start: 02/07/25 12:44 Freq: Status: Active Protocol: Document 02/08/25 14:23 CCC (Rec: 02/08/25 14:36 [facility] Desktop) OT [id number] Comments OT Self-Feeding Comments Not at meal time. Pt requested OT to fill her water container with tap water. OT ADL-Grooming Comments OT Grooming Comments Not performed. OT ADL-Dressing General Eval Lower Body Dressing Ability Standby Assistance,Maximum Assistance Areas Needing Assistance Socks Comments OT Dressing Comments Able to practice use of water fitness instructor and sock aid several times before pt able to do it on her own with LB dressing equipment. Pt will benefit from LB dressing equipment. OT ADL-Toileting Comments OT Toileting Comments Pt not having to go at this time. Pt will benefit from BSC . OT ADL-Bathing Comments OT Bathing Comments NOt performed. Pt will benefit from shower chair at home. M5 OT- IP IADL's Start: 02/07/25 12:44 Freq: Status: Active Protocol: Document 02/07/25 13:23 CGR (Rec: 02/07/25 13:39 CGR Desktop) OT-Instrumental Activities of Daily Living Deficits IADL Deficits Identified No Deficits Home Safety Awareness Awareness of Need for Assistance at Home Good Awareness Ability to Problem Solve Emergency Able to Problem Solve Situations Medication Management Medication Management No Deficits Identified Money Management Money Management No Deficits Identified Meal Preparation Meal Preparation Comments Pt was IND at baseline. Farm Implement Engine Mechanic Farm Implement Engine Mechanic Comments Pt was IND at baseline. 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 Pt needing MAX vc for how to use the sock aid and water fitness instructor. Went over information for fall preventions with equipment needs with pt and her . M7 OT- IP Mobility and Balance Start: 02/07/25 12:44 Freq: Status: Active Protocol: Document 02/08/25 14:23 [facility] (Rec: 02/08/25 14:36 [facility] Desktop) OT- Bed Mobility Assessment Supine to Sit Supine to Sit Assist Standby Assistance Sit to Supine Sit to Supine Assist Minimal Assistance OT-Transfer Assessment Sit to and From Stand Sit to and from Stand Contact Guard Assistance Technique Transfer Destination Bedside Commode Devices Transfer Assistive Devices Gait Belt,Front Wheeled Walker Comments Mobility Comments Pt with increased time able to get to the edge of the bed. Pt needing CORWIN to help get her RLE back into bed. CGA wot stand to the FWW and only able to take a couple steps forwards and back with the FWW . VC not to have the FWW too close to her. In addition to push on the bed with her hands when coming to stand. M8 OT- IP Objective Assessments Start: 02/07/25 12:44 Freq: Status: Active Protocol: Document 02/07/25 13:23 CGR (Rec: 02/07/25 13:39 CGR Desktop) OT Gross Range of Motion Upper Extremity Range of Motion ROM Impairments B shld restrictions OT Strength Comments Strength Comments limitations to B shlds otherwise 4/5 OT- Coordination Assessment Upper Extremity Finger to Nose Test Within Functional Limits Finger Tapping Test Within Functional Limits OT-Muscle Tone Assessment Muscle Tone WNL Yes OT Sensation Assessment Edema Edema Absent M9 OT- IP Assessment and Plan Start: 02/07/25 12:44 Freq: Status: Active Protocol: Document 02/08/25 14:23 [facility] (Rec: 02/08/25 14:36 [facility] Desktop) OT Summary Assessment and Plan Potential Rehabilitation Potential Good Analytic Complexity at Evaluation High Summary OT Impairments Pain,Range of Motion,Strength, Balance,Functional Mobility, Grooming,Dressing,Toileting, Bathing,Toilet Transfers, Shower Transfers,Activity Tolerance Progress Towards Goals Progressing Toward Goals Assessment Summary Able to practice use of LB dressing equipment with pt and give pt ADL equipment suggestions. Pt to go to skilled rehab when medically stable. Goals Grooming Goal Independent Dressing Goal Independent Toileting Goal Independent Bathing Goal Independent Toilet Transfer Goal Independent Shower Transfer Goal Independent Days to Meet Goals 15 Frequency of Treatment Other frequency 5x per week Treatment Plan OT Treatment Plan ADL Training,Functional Mobility,Patient/Family Education,Discharge Planning Other Treatment Recommendations and Next ADLs at sink if able. Treatment Focus Discharge Recommendations OT Discharge Recommendations SNF Rehab Transportation Needs at Discharge Private Vehicle,Wheelchair/ Cabulance
[2025-02-08 20:00] VITALS: BP 152/80; PULSE 73; RESP 16; TEMP 36.2; O2SAT 96
[2025-02-08] MEDS: TRAZODONE 50 MG TABLET 150 MG PO (20:12)
[2025-02-09] MEDS: HYDROCODONE/ACET 5/325 TABLET 1 TAB PO ×2 (01:06→08:59)
--- NOTE | 2025-02-09 07:41 | P.DS_ITS ---
History of Present Illness History of Present Illness Date Patient Seen: 02/09/25 Time Patient Seen: 07:41 Chief complaint: Fall Narrative: Patient is a 79-year-old female who was backing her car out of the garage and then going into the garage and fell. Patient thinks she tripped. Apparently she has multiple issues with her legs that have been longstanding and she tends to trip and fall intermittently. Has not done lately. But this has been a longstanding issue and it has not unusual. was not there but feels as if the could not been a very long period between when she fell and when he got there. Maybe 30 or 40 seconds. Patient did hit her head. Denies loss of consciousness but does not remember basically getting a the car is the last thing she remembers and nothing until she saw her after the fall. She does not think she lost consciousness but she certainly does not remember that. If time. So she really does not know if she fell or tripped or had some event. She has not had any cardiac history he has had no chest pain no shortness and denies orthopnea PND or other change. She otherwise has felt well recently. With no new changes or complaints. History of depression. No cardiac history. Etiology of her nerve injury is probably from her lumbar stenosis. But has not changed. Otherwise no change. Patient has had no urinary changes. Diarrhea. Chest pain. She has not been drinking more than she usually does. Has a history of low sodium he has not been on treatment. No other changes or complaints. {from Dr. Ferro's H&P 02/05/25} Discharge Providers Provider Date of admission: 02/05/25 15:14 Discharge Date: 02/09/25 Primary care physician: Joshua Chin MD Consults: 02/05/25 16:30 Consult to Discharge Planning Routine Comment: Consult to Occupational Therapy Evaluate & Treat Comment: Physician Instructions: Evaluate and treat Consult to Physical Therapy Evaluate & Treat Comment: Physician Instructions: Evaluate and Treat Discharge provider: Joshua Chin MD Summary Hospital Course Discharge Diagnosis: 1. Ground level fall 2. Pelvic fracture (right superior and inferior pubic ramus) 3. Hyponatremia, resolved 4. Chronic renal failure stage 3 a 5. Lumbar spinal stenosis 6. Nonischemic cardiomyopathy, longstanding and stable 7. Depression Hospital Course: As above patient was admitted to the hospital after presenting to the ER falling at home. Found to have the fractures. Not felt to be surgical situation by Orthopedic surgery. Patient was slowly ambulated with skilled therapy initially required parental narcotics but that is seem to be tolerating minimal activity with oral hydrocodone. Clearly will need additional time for rehabilitation and plans were made for discharge [facility] [place] [facility] Patient's hyponatremia was very mild in comparison to her chronic hyponatremia. It was corrected with some IV fluids and she was returned to her baseline. Etiology for possible syncope was explored with carotid ultrasound and echocardiography. No new findings or findings at all or found on the studies. No clear etiology for her fall other than a mechanical fall was identified during this hospitalization Patient's other medical problems remained stable Status at Discharge Cognitive/behavioral status at discharge: at baseline, oriented Functional status at discharge: uses cane/walker Overall status at discharge: patient is progressing back to baseline Time Spent with Patient Time spent: Greater than 30 minutes Exam Vital Signs (past 8 hours): Oxygen Delivery Method Room Air Oxygen Flow Rate 0 Objective Labs 02/06/25 05:20 02/07/25 05:15 [facility] Medical History Diverticular disease of colon Gastroesophageal reflux disease with esophagitis Osteopenia Weight loss Dysphagia Chronic hyponatremia Overactive bladder Urinary frequency Urge incontinence Cancer UTI (urinary tract infection) Chronic renal failure, stage 3 (moderate) Mixed urge and stress incontinence Incomplete left bundle branch block (LBBB) Lumbar spinal stenosis Viral cardiomyopathy Depression Osteoporosis, unspecified Cyclothymia Sciatica Fractures (~2004) Measles Chicken pox Cataracts, bilateral (~2015) Genital warts (~1984) History of urinary incontinence (~2014) Fecal incontinence (~2014) Heart palpitations Constipation Surgical History H/O hernia repair Anesthesia History of vaginal hysterectomy (~1996) Melanoma (~1981) Family History Father Hypertension Heart disease Mother Cancer Diabetes mellitus Hyperlipidemia Sister Cervical cancer Grandfather No problems noted. Grandmother Hypertension Grandmother Hypertension Social History household members: spouse Smoking Status: Never smoker Discharge Assessment & Plan Assessment and Plan Plan of Treatment: Continue usual medications Discharge to [place] [facility] for continued rehabilitation then plans to return home when appropriate and safe Discharge Plan Discharge Plan Patient Disposition: SNF Transfer to: [facility] Consult as needed: Dental, Hearing, Mental health, Podiatry and Vision Discharge orders & Medications Prescriptions: New docusate sodium 100 mg Capsule 200 mg PO BID PRN (Reason: CONSTIPATION) Qty: 90 0RF hydrocodone-acetaminophen 5-325 mg Tablet 1 tab PO Q4H PRN (Reason: Pain, Moderate (4-6)) Qty: 20 0RF Metamucil Fiber Singles 3.4 gram Powder In Packet 1 packet PO BID Qty: 6 0RF Continued cholecalciferol (vitamin D3) 5,000 UNIT capsule 5,000 unit PO BEDTIME Qty: 0 aripiprazole 5 mg tablet 5 mg PO DAILY Qty: 90 3RF lamotrigine 200 mg tablet 200 mg PO DAILY Qty: 90 3RF oxybutynin chloride 10 mg tablet extended release 24hr 10 mg PO DAILY Qty: 90 3RF trazodone 100 mg tablet 150 mg PO BEDTIME Qty: 135 3RF metoprolol succinate [Toprol XL] 25 mg tablet extended release 24 hr 12.5 mg PO QDAY Qty: 45 3RF Patient Comments: Takes 1/2 tablet daily or 12.5mg ibuprofen 200 mg capsule 200 mg PO Q4-6H PRN (Reason: Pain (Scale Score 1-3)) Patient Comments: Has not taken for a long time. (DME) Disabled Parking See Rx Instructions .ROUTE .MEDSUPPLY Qty: 1 0RF Rx Instructions: Patient qualifies for disabled parking as per the attached form. calcium carbonate 600 mg calcium (1,500 mg) tablet 600 mg PO BID Discontinued acetaminophen [Tylenol Extra Strength] 500 MG tablet 500 mg PO Q4HP PRN (Reason: Pain (Scale Score 1-3)) Qty: 0 Follow up/Referrals: Joshua Chin MD [Primary Care Provider] - Discharge Health Status Multidrug resistant organism: No MDRO Precautions: [place] Diet/Activity/Treatments Diet: Diet as Tolerated Liquid consistency: Normal/Thin Food texture: Regular Special Rehabilitation Services Reason for rehabilitation: Other Rehab type: Physical therapy and Occupational therapy Visit Report/Discharge Packet Stand Alone Forms: Patient Portal/API Discharge Data Primary Care Provider: Chin,Joshua R Quality VTE Deep Vein Thrombosis/Pulmonary Embolism Present on Admission: No [facility] PROFEE Charge Codes Discharge inpatient/observation: [id number]
[2025-02-09 08:00] VITALS: BP 175/78; PULSE 74; RESP 16; TEMP 36.6; O2SAT 99
--- NOTE | 2025-02-09 08:38 | CM.DPNOTE ---
Addendum entered by ISMAEL Pop 02/09/25 11:53: ADD: Sent patient's Hospital Exempt PASRR to [facility] Luis data processing systems consultant via [email or web address] F [phone]. Original Note: DC Note Discharge today to [facility], transport arranged for 1100. Patient remains agreeable to plan. SHALINI Enriquez assisting with this coordination. SNF paperwork, Rx and completed/signed Hospital exempt PASRR emailed to Nadia at . Plan: Discharge to SNF via wheelchair van transport at 1100. VALDO
[2025-02-09] MEDS: CHOLECALCIFEROL (VITAMIN D3) 5,000 UNIT TABLET 5000 UNIT PO (08:57)
[2025-02-09] MEDS: METOPROLOL ER 25 MG TABLET 12.5 MG PO (08:57)
[2025-02-09] MEDS: ARIPiprazole 10 MG TABLET 5 MG PO (08:58)
[2025-02-09] MEDS: lamoTRIgine 100 MG TABLET 200 MG PO (08:58)
[2025-02-09] MEDS: CALCIUM CARBONATE 500 MG TAB PO (08:58)
[2025-02-09] MEDS: ENOXAPARIN 40 MG/0.4 ML SYRINGE SUBCUT (08:59)
[2025-02-09] MEDS: PSYLLIUM HUSK 1 PACKET PO (08:59)
[2025-02-09] MEDS: OXYBUTYNIN 5 MG ER TAB 10 MG PO (08:59)
--- NOTE | 2025-02-09 12:48 | PC.NURSE ---
Patient is A&OX4, VSS, afebrile. Patient's initial BP elevated prior to a.m. pain medication and scheduled antihypertensives. She is able to call appropriately for assistance to BSC and for other assistance. She is knowledgeable and agreeable with plan to discharge to [facility] today at 11 a.m. Transporter arrived shortly after 11a.m. Report called to [facility] nurse João. She is assisted to the w/ and assisted to pack up all of her belongings and meet her at [facility]. She is escorted by facility designee via w/ with discharge packet to vehicle at 1130 this a.m.
== END 2025-02-09 11:31 | DRG 536 ==
LOC: ED 14:59 → AC 02-06 09:06
PROVIDERS: Admitting Provider Family Medicine; Emergency Provider Emergency Medicine; Family Provider Internal Medicine; PCP Internal Medicine; Referring Provider Emergency Medicine; Visit Provider Internal Medicine
DX: S32.810A Multiple fractures of pelvis with stable disruption of pelvic ring, initial encounter for closed fracture (principal); E87.1 Hypo-osmolality and hyponatremia; I42.8 Other cardiomyopathies; M54.2 Cervicalgia; F32.A Depression, unspecified; S01.81XA Laceration without foreign body of other part of head, initial encounter; F41.9 Anxiety disorder, unspecified; R00.2 Palpitations; R55 Syncope and collapse; N18.31 Chronic kidney disease, stage 3a; M48.061 Spinal stenosis, lumbar region without neurogenic claudication; W01.0XXA Fall on same level from slipping, tripping and stumbling without subsequent striking against object, initial encounter; Z91.81 History of falling
CPT/HCPCS: 12013; 36415; 70450; 70486; 71101; 72125; 73502; 80048; 80053; 81001; 85025; 87077; 87086; 87186; 93306; 93880; 96374; 97116; 97161; 97167; 97530; 97535; 99233; 99239; 99284; J1650; J2270

== ENCOUNTER → 2025-03-04 14:34 | Outpatient (CLI) | payer MEDICARE, OTHER, SELFPAY ==
[2025-03-04 14:20] VITALS: BMI 19.0
[2025-03-04 16:22] LABS: BUN Creatinine Ratio 16.9 (6-22); Blood Urea Nitrogen 13 mg/dL (7-17); Calcium 9.2 mg/dL (8.4-10.2); Carbon Dioxide 24 mmol/L (22-32); Chloride 95 mmol/L (98-107); Estimated Glomerular Filt Rate > 60 mL/min (>60); Glucose 108 mg/dL (70-99); HEMOLYSIS < 15 (0-50); Potassium 4.6 mmol/L (3.4-5.1); Sodium 126 mmol/L (137-145)
== END ==
LOC: LAB 14:35
PROVIDERS: Family Provider Internal Medicine; PCP Internal Medicine; Referring Provider Internal Medicine; Visit Provider Internal Medicine
DX: E87.1 Hypo-osmolality and hyponatremia (principal)
CPT/HCPCS: 36415; 80048

== ENCOUNTER → 2025-04-11 11:06 | Outpatient (CLI) | payer MEDICARE, OTHER, SELFPAY ==
[2025-03-04 14:20] VITALS: BMI 19.0
[2025-04-11 11:29] LABS: Appearance Urine UA CLEAR; Bilirubin Urine UA NEGATIVE (NEGATIVE); Color Urine UA YELLOW; Glucose Urine UA NEGATIVE (Negative); Ketones Urine UA NEGATIVE (NEGATIVE); Leukocyte Esterase Urine UA TRACE (NEGATIVE); Nitrite Urine UA NEGATIVE (Negative); Occult Blood Urine UA TRACE-INTACT (Negative); Protein Urine UA NEGATIVE (Negative); Specific Gravity Urine UA <=1.005 (1.000-1.035); Urobilinogen Urine UA 0.2 E.U./dL (0.2)
[2025-04-11 11:39] LABS: Bacteria Urine Few (2-10); RBC Urine 1-5/HPF (0-5/HPF); Renal Epithelial Cells Urine 1-5/HPF (0-1/HPF); Squamous Epithelial Cell Urine 1-5 /HPF (0-5/HPF); Transitional Epi Cells Urine 1-5/HPF (0-5/HPF); Urine Volume 10mL (spun); WBC Urine 5-10/HPF (0-5/HPF)
[2025-04-11 11:40] LABS: Culture Indicated Urine Specimen Cultured
== END ==
PROVIDERS: Family Provider Internal Medicine; PCP Internal Medicine; Referring Provider Internal Medicine; Visit Provider Internal Medicine
DX: R10.9 Unspecified abdominal pain (principal)
CPT/HCPCS: 81001; 87086

== ENCOUNTER 2025-08-04 09:00 | Outpatient (RCR) | payer MEDICARE, OTHER, SELFPAY ==
[2025-03-04 14:20] VITALS: BMI 19.0
--- NOTE | 2025-06-28 10:25 | OT.OPPOC ---
Physical, Occupational & Speech Therapy At [facility] [id number] 1945 Visit Care Team Role Provider Type Daniel Ferro MD Attending Provider Physician Family Provider Primary Care Provider Referring Provider Address: [address] [place] [address], [id number] Occupational Therapy Plan of Care OT Outpatient Adult Evaluation Start: 06/24/25 18:43 Freq: Status: Active Protocol: Document 06/28/25 09:00 (Rec: 06/24/25 18:47 [id number]) General Information - Adult Visit Information Visit Number 1 of 12 Plan of Care Dates 06/28/25-09/20/25 Insurance no pre-auth;no copay;KX modifier required after 19 OT Information visits pcy Session Time Visit Start Date 06/28/25 Visit Start Time 09:00 Visit Stop Time 09:38 Setting Treatment Setting Outpatient Care Visit Type Note Type Initial Evaluation Referral Referring Physician Dr. Daniel Ferro Reason for Referral R shoulder pain Identification Identification Yes Confirmed Identification EMR Confirmed By Patient Patient Goals UB exercises for decr pain in bilateral shoulders Medical Information Medical History Cancer (remote melanoma ~1981), cataracts, chronic hyponatremia, CKD stage 3, cyclothymia/depression, diverticular disease, GERD with esophagitis, dysphagia, fecal and urinary incontinence, viral cardiomyopathy with incomplete LBBB/palpitations, lumbar spinal stenosis with sciatica, osteopenia and osteoporosis, osteoarthritis, osteoporotic fractures including right superior and inferior pubic rami fractures on 02/05/25 with minimal interval healing on 04/08/25 imaging, chronic bilateral shoulder pathology with massive rotator cuff tears, chronic balance impairment with frequent falls, history of constipation, weight loss, and mixed urge/stress incontinence. Past surgical history:vaginal hysterectomy (~1996) and hernia repair Previous Therapy Previous Therapy/ Yes Therapies History of Therapy Patient completed outpatient PT from 04/05/25 to 06/16/25 following the January 2025 pelvic fractures and 5 Week SNF rehab stay, progressing from significant bilateral lower-extremity weakness and a Urb[place] score of 41 to discharge with improved hip and knee strength, ongoing but improved hip abduction, independent HEP adherence, and transition to a [facility] balance/ strengthening program that began approximately one week prior to today?s OT evaluation. She reports long- standing bilateral shoulder pain and multiple prior therapy courses for the shoulders with only transient benefit; she is not pursuing surgery. Social Information Social History I have done it all and nothing has really helped Patient Questionnaires Quick Dash- Upper Extremity Quick Dash UE Score 68.2 Quick Dash UE 60 to 79% Impaired (Score 60-79) Impairment Goals Objective Measurements Objective QuickDASH score today is 68.2, indicating severe upper- Measurements extremity functional limitation. Formal goniometry and MMT were declined this day by patient due to time constraints; observationally the right shoulder achieves approximately 70?80 degrees of flexion/ abduction with pain and guarding, while the left arm can reach behind the head. Gait and mobility are supported with a right-hand walking stick by preference ; she uses a rollator occasionally at night. Imaging is notable for a 09/25/24 right shoulder MRI showing full -thickness supraspinatus and infraspinatus ruptures with up to 3.7 cm retraction, mild?moderate supraspinatus and mild infraspinatus atrophy, low? moderate intrasubstance subscapularis tear, superior humeral migration, AC joint osteoarthritis, suspected superior-anterior labral tear, and low-grade proximal long-head biceps partial tear. Prior left shoulder MRI on 04/16/23 demonstrated progressive full-thickness supraspinatus/infraspinatus tearing with tendon retraction and atrophy and diffuse degenerative labral fraying. Treatment Treatment pt educated on scope/role of OT, goals of care Short Term Goals Short Term Goals Within 6 weeks: 1. Patient will demonstrate independent and consistent performance of a pain-modulated bilateral shoulder HEP (including posture/scapular setting, assisted elevation within tolerance, and isometrics) at least five days per patient report and in-clinic return demo with pain increase no greater than two points on a 0?10 scale. 2. Patient will identify and adopt at least two joint- protection or task-modification strategies for priority ADLs (for example, storing essentials below shoulder height and using bilateral or forearm-supported strategies for carrying), demonstrating them in session with safe body mechanics and minimal cues. Top Tile Decorator Goals Group Home Goals Within 10 weeks: 1. Patient will maintain HEP adherence at least five days per week and progress repetitions or hold times by 20?30% without symptom flare exceeding 24 hours, as evidenced by patient report and in-clinic review. 2. Patient will complete overhead-adjacent self-care ( hair care or upper-chest/neck hygiene) using compensatory strategies with right shoulder elevation to at least 90 degrees as observed in clinic, reporting pain no greater than 3/10 and no increase in next-day soreness beyond baseline. 3. Patient will increase perceived upper-extremity functional independence as demonstrated by at least 15 points on the QuickDASH Assessment/Plan Assessment Patient Response Fair Rehabilitation Fair Potential Impairments ADLs,Balance,Body Mechanics,Functional Activities,Motor Identified Function,Pain,Weakness,Posture,Range of Motion, Recreational Activities,Meaningful Activities,Stiffness ,Safety,Insight,Soft Tissue Mobility Treatment Assessment 79-year-old female referred to occupational therapy by Dr. Daniel Ferro for right shoulder pain. Pt with a recent history of multiple falls including an January 2025 right pubic rami fracture requiring hospitalization, 5 week SNF stay for rehab, and subsequent outpatient PT course ending 06/16/25. She also has a long-standing history of bilateral shoulder pathology, with the most recent right shoulder MRI in August 2024 demonstrating massive, retracted rotator cuff tears, muscle atrophy, labral degeneration, and superior humeral migration. This presentation reflects a medically complex, fall- prone older adult with chronic, bilateral massive rotator cuff pathology (R > L) characterized by full- thickness supraspinatus and infraspinatus ruptures with tendon retraction, muscle atrophy, partial subscapularis involvement, superior humeral migration, degenerative labral changes, and AC joint osteoarthritis, superimposed on recent pelvic fractures and longstanding balance impairment. Given the chronicity of tendon failure, documented atrophy, superior migration, and the patient?s preference to avoid surgery, true rotator-cuff?dependent elevation and loading will remain structurally limited; therefore , the plan of care emphasizes pain-modulated activation within the available envelope of function, scapular/ postural optimization, compensatory movement strategies , environmental setup, joint protection, and safe assistive-device use to support mobility. The patient was noted to self-direct care and declined portions of objective testing and HEP review today due to scheduling constraints; she also reports limited benefit from prior care despite multiple therapy courses. Rehab potential is guarded due to structural irreparability, medical comorbidities, fall risk, and inconsistent engagement; however, she states she is motivated to preserve independence and has recently engaged in the [facility] program, suggesting capacity to benefit from a focused, low-dose, routine-anchored OT program. Treatment will prioritize establishing a streamlined HEP the patient can remain compliant with, caregiver coaching if appropriate, and practical accommodations and equipment recommendations to maximize safety and function within anatomical limits. Home Exercise to be reviewed next session per patient's request Program Reviewed with Goals,Progress Being Made,Home Exercise Program Patient Patient Good Understanding Plan Length of treatment 12 (weeks) Plan of Care Start 06/28/25 Plan of Care End 09/20/25 Date Treatment Frequency Once a Week Treatment Duration 45 Minutes Treatment Emphasis HEP, goniometer/MMT Next Session Therapeutic Contents Active Range of Motion,Adaptive Equipment Education, Client Education,Functional Activities,Home Exercise Program,Manual Therapy,Education,Neuromuscular Re- Education,Self-Care,Stretching/Flexibility Activities, Therapeutic Activities,Therapeutic Exercises,Modalities Modalities As Needed Types of Modalities Other Additional Types of MHP Modalities Patient Instruction Plan of Care,Questions/Concerns Patient Continue with Current Program Recommendations Electronically Signed by: Hannah Francisco OT 06/28/25 [id number] If you are in agreement with this Plan of Care, please return a signed and dated copy. I have reviewed this Plan of Care and certify that the skilled therapy services above are required to meet the patient?s needs. Physician Signature Date Printed Name and Credentials Clinical Instructor Signature Printed Name and Credentials
--- NOTE | 2025-07-07 14:48 | OT.OP.TRT ---
Visit Care Team Role Provider Type Daniel Ferro MD Attending Provider Physician Family Provider Primary Care Provider Referring Provider Specialty: Family Practice Address: [address] [place] [address], [facility] Email: [email or web address] Occupational Therapy Admin Note OT Outpatient Treatment Note - Adult Start: 06/24/25 18:43 Freq: Status: Active Protocol: Document 07/07/25 10:48 (Rec: 07/05/25 10:51 [id number]) OT Outpatient Adult Treatment Note Visit Information Plan of Care Dates 06/28/25-09/20/25 Insurance no pre-auth;no copay;KX modifier required after 19 OT Information visits pcy Setting Treatment Setting Outpatient Care Visit Type Note Type Administrative Note General Information General Information Pt scheduled for 9a appt, therapist attempted to reach pt by phone at number on file, rang without response. Did not arrive for scheduled appt time or reschedule - - - - -
--- NOTE | 2025-07-20 15:06 | OT.OP.TRT ---
Visit Care Team Role Provider Type Daniel Ferro MD Attending Provider Physician Family Provider Primary Care Provider Referring Provider Specialty: Family Practice Address: [address] [place] [address], [place], [address] Email: [email or web address] Occupational Therapy Treatment Note OT Outpatient Treatment Note - Adult Start: 06/24/25 18:43 Freq: Status: Active Protocol: Document 07/20/25 14:00 DANI (Rec: 07/20/25 12:48 [email or web address] [id number]) OT Outpatient Adult Treatment Note Session Time Visit Start Date 07/20/25 Visit Start Time 14:00 Visit Stop Time 14:45 Visit Information Visit Number 2 of 12 Plan of Care Dates 06/28/25-09/20/25 Insurance no pre-auth;no copay;KX modifier required after 19 OT Information visits pcy Setting Treatment Setting Outpatient Care Visit Type Note Type Treatment Note - Subjective Identification Type Name Identification Medical Record Reconciled With Observations Pt states I was given the band but I don't remember what exercises I was supposed to do with it. I can't grab my coffee cup from the table next to my chair and bring it to myself. Pt also reports difficulty lifting a light glass of water with R dominant UE. Chief Complaint(s) Loss of Motion/Stiffness,Pain Effect on Activity, Restricts - Objective Objective Shoulder AROM (against gravity): Measurements Flexion R 123, L 138 Extension R 55, L 52 Abduction R 138, L 135 ER R 45, L 35 MMT shoulder: flexion R 4-, L 4- extension R 4-, L 4 IR R 4-, L 4- ER R 3+, L 3+ Short Term Goals Within 6 weeks: 1. Patient will demonstrate independent and consistent performance of a pain-modulated bilateral shoulder HEP (including posture/scapular setting, assisted elevation within tolerance, and isometrics) at least five days per patient report and in-clinic return demo with pain increase no greater than two points on a 0?10 scale. 2. Patient will identify and adopt at least two joint- protection or task-modification strategies for priority ADLs (for example, storing essentials below shoulder height and using bilateral or forearm-supported strategies for carrying), demonstrating them in session with safe body mechanics and minimal cues. Fdc Goals Within 10 weeks: 1. Patient will maintain HEP adherence at least five days per week and progress repetitions or hold times by 20?30% without symptom flare exceeding 24 hours, as evidenced by patient report and in-clinic review. 2. Patient will complete overhead-adjacent self-care ( hair care or upper-chest/neck hygiene) using compensatory strategies with right shoulder elevation to at least 90 degrees as observed in clinic, reporting pain no greater than 3/10 and no increase in next-day soreness beyond baseline. 3. Patient will increase perceived upper-extremity functional independence as demonstrated by at least 15 points on the QuickDASH - Exercises 2 Descriptor Tband (level 1): Seated IR x 10 Seated ER x 5 Isometric: Seated ER x10 Side Right Visual Cues 1-2 Verbal Cues 1-2 1 Descriptor Anterior Delt Exercises (Reading Shoulder Unit program for patients with massive rotator cuff tears) -pendulums x5 minutes (with 1 rb) -AAROM (supine available ROM arc) x2 minutes, x2.5 minutes, x30 seconds -concentric contraction of anterior delt x 6 reps Physical Assistance Contact Guard Assistance Visual Cues 1-2 Verbal Cues 1-2 - Assessment Patient Response to Good Treatment Rehabilitation Fair Potential Impairments ADLs,Balance,Body Mechanics,Functional Activities,Motor Identified Function,Pain,Weakness,Range of Motion,Recreational Activities,Meaningful Activities,Stiffness,Safety, Insight,Soft Tissue Mobility Progress Towards Slow Progress Goals Assessment of Unchanged Overall Progress Assessment of Pt presents with significant limitations in AROM and Improvement muscle strength, please see objective section for details. Pt is R dominant, but has great difficulty using her R UE to do simple tasks like lifting her drinking glass. Pt has multiple rotator cuff tears and does not plan to have surgery. OT initiated the Reading Shoulder Unit Paulino technique that is specifically designed to strengthen the anterior deltoid for improved functional use in individuals with massive RC tears. Pt responded well to this program and was educated that these exercises need to be performed 5 minutes for 3-5 reps a day for 12 weeks or longer. Additionally, OT educated pt on IR and ER strengthening with light tband. Skilled OT services are appropriate to address pt deficits and promote return to desired functional tasks. Cont per established POC. Reviewed with Goals,Progress Being Made,Home Exercise Program Patient/Caregiver Patient/Caregiver Good Understanding - Plan Therapy Continue with Current Program Recommendations Amount of Therapy 2-3 Months Recommended Length of Session 45 Minutes Therapeutic Contents Active Range of Motion,Adaptive Equipment Education, Client Education,Functional Activities,Home Exercise Program,Manual Therapy,Education,Neuromuscular Re- Education,Self-Care,Stretching/Flexibility Activities, Therapeutic Activities,Therapeutic Exercises,Modalities Modalities As Needed Types of Modalities Other Additional Types of MHP Modalities
--- NOTE | 2025-07-26 11:02 | OT.OPPN ---
Current Diagnoses Other chronic pain (07/26/25) Pain in right shoulder (07/26/25) OT Progress Note OT Outpatient Treatment Note - Adult Start: 06/24/25 18:43 Freq: Status: Active Protocol: Document 07/26/25 09:40 (Rec: 07/26/25 09:43 [id number]) OT Outpatient Adult Treatment Note Session Time Visit Start Date 07/26/25 Visit Start Time 09:00 Visit Stop Time 09:45 Visit Information Visit Number 3 of 12 Plan of Care Dates 06/28/25-09/20/25 Insurance no pre-auth;no copay;KX modifier required after 19 OT Information visits pcy Setting Treatment Setting Outpatient Care Visit Type Note Type Progress Note - Subjective Identification Type Name Identification Medical Record Reconciled With Observations I have seen some slight improvements in strength and pain but no change in my range of motion Chief Complaint(s) Loss of Motion/Stiffness,Pain Effect on Activity, Restricts - Objective Short Term Goals Within 6 weeks: 1. Patient will demonstrate independent and consistent performance of a pain-modulated bilateral shoulder HEP (including posture/scapular setting, assisted elevation within tolerance, and isometrics) at least five days per patient report and in-clinic return demo with pain increase no greater than two points on a 0?10 scale. [ PROGRESSING 07/26/25] 2. Patient will identify and adopt at least two joint- protection or task-modification strategies for priority ADLs (for example, storing essentials below shoulder height and using bilateral or forearm-supported strategies for carrying), demonstrating them in session with safe body mechanics and minimal cues. [ PROGRESSING 07/26/25] Director Health Goals Within 10 weeks: 1. Patient will maintain HEP adherence at least five days per week and progress repetitions or hold times by 20?30% without symptom flare exceeding 24 hours, as evidenced by patient report and in-clinic review. [ PROGRESSING 07/26/25] 2. Patient will complete overhead-adjacent self-care ( hair care or upper-chest/neck hygiene) using compensatory strategies with right shoulder elevation to at least 90 degrees as observed in clinic, reporting pain no greater than 3/10 and no increase in next-day soreness beyond baseline. [PROGRESSING 07/26/25] 3. Patient will increase perceived upper-extremity functional independence as demonstrated by at least 15 points on the QuickDASH. [PROGRESSING 07/26/25] - Treatment 1 Descriptor Extensive education was provided regarding the limitations of range of motion and strengthening potential in the presence of chronic rotator cuff tears . The discussion emphasized the importance of compensation, adaptation, and accommodation strategies for safe task completion. The patient was counseled on surgical considerations, with focus on weighing functional independence, comfort level, and current adaptations against the risks and recovery process associated with surgery. Education also addressed the need for balancing postural and shoulder stability exercises to reduce kyphotic posture progression. The patient verbalized fair understanding and demonstrated fair return demonstration with cueing. Exercises 2 Descriptor Tband (level 1): Seated IR x 10 Seated ER x 5 Isometric: Seated ER x10 max verbal cues for reasoning and purpose of exercises, eventually performing with 1-2 cues, The patient reviewed her previously issued home exercise program and demonstrated fair return demonstration, though she required maximum verbal and visual cues to maintain correct form. Due to her concerns regarding posture and observed kyphotic alignment, inclined wall slides were added to the program. Shoulder ?rules? were reinforced to promote safe movement patterns and balance between postural and shoulder strengthening exercises. Side Right Visual Cues Max Cues Verbal Cues 1-2 1 Descriptor Anterior Delt Exercises (Reading Shoulder Unit program for patients with massive rotator cuff tears) -pendulums x5 minutes (with 1 rb) -AAROM (supine available ROM arc) x2 minutes, x2.5 minutes, x30 seconds -concentric contraction of anterior delt x 6 reps added inclined wall angels Physical Assistance Contact Guard Assistance Visual Cues 1-2 Verbal Cues 1-2 - Assessment Patient Response to Good Treatment Rehabilitation Fair Potential Impairments ADLs,Balance,Body Mechanics,Functional Activities,Motor Identified Function,Pain,Weakness,Range of Motion,Recreational Activities,Meaningful Activities,Stiffness,Safety, Insight,Soft Tissue Mobility Progress Towards Slow Progress Goals Assessment of Unchanged Overall Progress Assessment of The patient presents as motivated and compliant with Improvement her home program but continues to require maximal cueing for safe and effective exercise performance. Functional independence remains intact with the use of adaptive strategies and spousal assistance as needed. At this time, pain and limitations do not appear severe enough to necessitate surgical intervention. Skilled occupational therapy continues to be indicated to reinforce safe exercise performance, improve postural alignment, and support the long-term use of compensatory strategies to preserve functional independence and protect joint integrity. Reviewed with Goals,Progress Being Made,Home Exercise Program Patient/Caregiver Patient/Caregiver Good Understanding - Plan Therapy Continue with Current Program Recommendations Amount of Therapy 2-3 Months Recommended Length of Session 45 Minutes Therapeutic Contents Active Range of Motion,Adaptive Equipment Education, Client Education,Functional Activities,Home Exercise Program,Manual Therapy,Education,Neuromuscular Re- Education,Self-Care,Stretching/Flexibility Activities, Therapeutic Activities,Therapeutic Exercises,Modalities Modalities As Needed Types of Modalities Other Additional Types of MHP Modalities If you are in agreement with this Plan of Care, please return a signed and dated copy. I have reviewed this Plan of Care and certify that the skilled therapy services above are required to meet the patient?s needs. Physician Signature Date Printed Name and Credentials Clinical Instructor Signature Printed Name and Credentials
--- NOTE | 2025-08-04 10:01 | OT.OP.TRT ---
Visit Care Team Role Provider Type Daniel Ferro MD Attending Provider Physician Family Provider Primary Care Provider Referring Provider Specialty: Family Practice Address: [address] [place] [address], [facility] [place] [place], [facility] Email: [email or web address] Occupational Therapy Treatment Note OT Outpatient Treatment Note - Adult Start: 06/24/25 18:43 Freq: Status: Active Protocol: Document 08/04/25 09:00 (Rec: 08/03/25 17:09 [id number]) OT Outpatient Adult Treatment Note Session Time Visit Start Date 08/03/25 Visit Start Time 09:00 Visit Stop Time 09:45 Visit Information Visit Number 4 of 12 Plan of Care Dates 06/28/25-09/20/25 Insurance no pre-auth;no copay;KX modifier required after 19 OT Information visits pcy Setting Treatment Setting Outpatient Care Visit Type Note Type Treatment Note - Subjective Identification Type Name Identification Medical Record Reconciled With Observations It is definitely better, I can open my 's car door now which is really heavy Chief Complaint(s) Loss of Motion/Stiffness,Pain Effect on Activity, Restricts - Objective Short Term Goals Within 6 weeks: 1. Patient will demonstrate independent and consistent performance of a pain-modulated bilateral shoulder HEP (including posture/scapular setting, assisted elevation within tolerance, and isometrics) at least five days per patient report and in-clinic return demo with pain increase no greater than two points on a 0?10 scale. [ PROGRESSING 07/26/25] 2. Patient will identify and adopt at least two joint- protection or task-modification strategies for priority ADLs (for example, storing essentials below shoulder height and using bilateral or forearm-supported strategies for carrying), demonstrating them in session with safe body mechanics and minimal cues. [ PROGRESSING 07/26/25] High Man Goals Within 10 weeks: 1. Patient will maintain HEP adherence at least five days per week and progress repetitions or hold times by 20?30% without symptom flare exceeding 24 hours, as evidenced by patient report and in-clinic review. [ PROGRESSING 07/26/25] 2. Patient will complete overhead-adjacent self-care ( hair care or upper-chest/neck hygiene) using compensatory strategies with right shoulder elevation to at least 90 degrees as observed in clinic, reporting pain no greater than 3/10 and no increase in next-day soreness beyond baseline. [PROGRESSING 07/26/25] 3. Patient will increase perceived upper-extremity functional independence as demonstrated by at least 15 points on the QuickDASH. [PROGRESSING 07/26/25] - Exercises 2 Descriptor Tband (level 1): Seated IR x 10 Seated ER x 5 Isometric: Seated ER x10 with 1lb free weight Pt continues to require reinforcement of education on shoulder ?rules? to promote safe movement patterns and balance between postural and shoulder strengthening exercises. Pt often self-directing care despite education on purpose and goals of recommendations Side Right Visual Cues Mod Cues Verbal Cues 1-2 1 Descriptor Anterior Delt Exercises (Reading Shoulder Unit program for patients with massive rotator cuff tears) -pendulums x5 minutes (with 1 rb) -AAROM (supine available ROM arc) x2 minutes, x2.5 minutes, x30 seconds -concentric contraction of anterior delt x 6 reps added bicep curls 1x10 at patient request with education on bicep action and purpose of current exercise program. Reviewed inclined wall angels in supine 1x10 with education on modification to stay outside of painful range Physical Assistance Contact Guard Assistance Visual Cues Max Cues Verbal Cues Max Cues Modifications modifications made to accommodate pain-free range Required - Assessment Patient Response to Good Treatment Rehabilitation Fair Potential Impairments ADLs,Balance,Body Mechanics,Functional Activities,Motor Identified Function,Pain,Weakness,Range of Motion,Recreational Activities,Meaningful Activities,Stiffness,Safety, Insight,Soft Tissue Mobility Progress Towards Slow Progress Goals Assessment of Improving Overall Progress Assessment of The patient presents with chronic shoulder pathology Improvement and a long history of rotator cuff tears. She continues to report improved pain levels and functional tolerance, as well as good compliance with her home exercise program. However, during today?s session she required significant verbal and visual cues for correct form, pacing, and understanding of exercise purpose, suggesting limited carryover of proper technique between sessions. Despite frequent redirection and education, she remains largely self-directed in her care and demonstrates difficulty integrating therapeutic recommendations independently. Exercises today focused on the anterior deltoid program for massive cuff tears, incorporating pendulums, AAROM, and light concentric contractions, along with gentle strengthening through bicep curls, resistance band work , and modified ?wall angels.? She tolerated all activities well and demonstrated improved tolerance and engagement. Given her ongoing need for cueing, education reinforcement, and guided progression to ensure safety and efficacy of her home program, she continues to benefit from skilled occupational therapy services to support proper movement patterns, maintain function, and promote long-term joint protection while working toward her established goals. Reviewed with Goals,Progress Being Made,Home Exercise Program Patient/Caregiver Patient/Caregiver Good Understanding - Plan Therapy Continue with Current Program Recommendations Amount of Therapy 2-3 Months Recommended Length of Session 45 Minutes Therapeutic Contents Active Range of Motion,Adaptive Equipment Education, Client Education,Functional Activities,Home Exercise Program,Manual Therapy,Education,Neuromuscular Re- Education,Self-Care,Stretching/Flexibility Activities, Therapeutic Activities,Therapeutic Exercises,Modalities Modalities As Needed Types of Modalities Other Additional Types of MHP Modalities
--- NOTE | 2025-08-09 13:29 | OT.OP.DC ---
Visit Care Team Role Provider Type Daniel Ferro MD Attending Provider Physician Family Provider Primary Care Provider Referring Provider Address: [address] [place] [address], [facility], [place], [address] Email: [email or web address] Outpatient OT Outpatient Adult Evaluation Start: 06/24/25 18:43 Freq: Status: Active Protocol: Document 06/28/25 09:00 (Rec: 06/24/25 18:47 [id number]) General Information - Adult Visit Information Visit Number 1 of 12 Plan of Care Dates 06/28/25-09/20/25 Insurance no pre-auth;no copay;KX modifier required after 19 OT Information visits pcy Session Time Visit Start Date 06/28/25 Visit Start Time 09:00 Visit Stop Time 09:38 Setting Treatment Setting Outpatient Care Visit Type Note Type Initial Evaluation Referral Referring Physician Dr. Daniel Ferro Reason for Referral R shoulder pain Identification Identification Yes Confirmed Identification EMR Confirmed By Patient Patient Goals UB exercises for decr pain in bilateral shoulders Medical Information Medical History Cancer (remote melanoma ~1981), cataracts, chronic hyponatremia, CKD stage 3, cyclothymia/depression, diverticular disease, GERD with esophagitis, dysphagia, fecal and urinary incontinence, viral cardiomyopathy with incomplete LBBB/palpitations, lumbar spinal stenosis with sciatica, osteopenia and osteoporosis, osteoarthritis, osteoporotic fractures including right superior and inferior pubic rami fractures on 02/05/25 with minimal interval healing on 04/08/25 imaging, chronic bilateral shoulder pathology with massive rotator cuff tears, chronic balance impairment with frequent falls, history of constipation, weight loss, and mixed urge/stress incontinence. Past surgical history:vaginal hysterectomy (~1996) and hernia repair Previous Therapy Previous Therapy/ Yes Therapies History of Therapy Patient completed outpatient PT from 04/05/25 to 06/16/25 following the January 2025 pelvic fractures and 5 Week SNF rehab stay, progressing from significant bilateral lower-extremity weakness and a Urb[place] score of 41 to discharge with improved hip and knee strength, ongoing but improved hip abduction, independent HEP adherence, and transition to a community [facility] balance/ strengthening program that began approximately one week prior to today?s OT evaluation. She reports long- standing bilateral shoulder pain and multiple prior therapy courses for the shoulders with only transient benefit; she is not pursuing surgery. Social Information Social History I have done it all and nothing has really helped Patient Questionnaires Quick Dash- Upper Extremity Quick Dash UE Score 68.2 Quick Dash UE 60 to 79% Impaired (Score 60-79) Impairment Goals Objective Measurements Objective QuickDASH score today is 68.2, indicating severe upper- Measurements extremity functional limitation. Formal goniometry and MMT were declined this day by patient due to time constraints; observationally the right shoulder achieves approximately 70?80 degrees of flexion/ abduction with pain and guarding, while the left arm can reach behind the head. Gait and mobility are supported with a right-hand walking stick by preference ; she uses a rollator occasionally at night. Imaging is notable for a 09/25/24 right shoulder MRI showing full -thickness supraspinatus and infraspinatus ruptures with up to 3.7 cm retraction, mild?moderate supraspinatus and mild infraspinatus atrophy, low? moderate intrasubstance subscapularis tear, superior humeral migration, AC joint osteoarthritis, suspected superior-anterior labral tear, and low-grade proximal long-head biceps partial tear. Prior left shoulder MRI on 04/16/23 demonstrated progressive full-thickness supraspinatus/infraspinatus tearing with tendon retraction and atrophy and diffuse degenerative labral fraying. Treatment Treatment pt educated on scope/role of OT, goals of care Short Term Goals Short Term Goals Within 6 weeks: 1. Patient will demonstrate independent and consistent performance of a pain-modulated bilateral shoulder HEP (including posture/scapular setting, assisted elevation within tolerance, and isometrics) at least five days per patient report and in-clinic return demo with pain increase no greater than two points on a 0?10 scale. 2. Patient will identify and adopt at least two joint- protection or task-modification strategies for priority ADLs (for example, storing essentials below shoulder height and using bilateral or forearm-supported strategies for carrying), demonstrating them in session with safe body mechanics and minimal cues. Fpc Goals Fpc Goals Within 10 weeks: 1. Patient will maintain HEP adherence at least five days per week and progress repetitions or hold times by 20?30% without symptom flare exceeding 24 hours, as evidenced by patient report and in-clinic review. 2. Patient will complete overhead-adjacent self-care ( hair care or upper-chest/neck hygiene) using compensatory strategies with right shoulder elevation to at least 90 degrees as observed in clinic, reporting pain no greater than 3/10 and no increase in next-day soreness beyond baseline. 3. Patient will increase perceived upper-extremity functional independence as demonstrated by at least 15 points on the QuickDASH Assessment/Plan Assessment Patient Response Fair Rehabilitation Fair Potential Impairments ADLs,Balance,Body Mechanics,Functional Activities,Motor Identified Function,Pain,Weakness,Posture,Range of Motion, Recreational Activities,Meaningful Activities,Stiffness ,Safety,Insight,Soft Tissue Mobility Treatment Assessment 79-year-old female referred to occupational therapy by Dr. Daniel Ferro for right shoulder pain. Pt with a recent history of multiple falls including an January 2025 right pubic rami fracture requiring hospitalization, 5 week SNF stay for rehab, and subsequent outpatient PT course ending 06/16/25. She also has a long-standing history of bilateral shoulder pathology, with the most recent right shoulder MRI in August 2024 demonstrating massive, retracted rotator cuff tears, muscle atrophy, labral degeneration, and superior humeral migration. This presentation reflects a medically complex, fall- prone older adult with chronic, bilateral massive rotator cuff pathology (R > L) characterized by full- thickness supraspinatus and infraspinatus ruptures with tendon retraction, muscle atrophy, partial subscapularis involvement, superior humeral migration, degenerative labral changes, and AC joint osteoarthritis, superimposed on recent pelvic fractures and longstanding balance impairment. Given the chronicity of tendon failure, documented atrophy, superior migration, and the patient?s preference to avoid surgery, true rotator-cuff?dependent elevation and loading will remain structurally limited; therefore , the plan of care emphasizes pain-modulated activation within the available envelope of function, scapular/ postural optimization, compensatory movement strategies , environmental setup, joint protection, and safe assistive-device use to support mobility. The patient was noted to self-direct care and declined portions of objective testing and HEP review today due to scheduling constraints; she also reports limited benefit from prior care despite multiple therapy courses. Rehab potential is guarded due to structural irreparability, medical comorbidities, fall risk, and inconsistent engagement; however, she states she is motivated to preserve independence and has recently engaged in the [place] program, suggesting capacity to benefit from a focused, low-dose, routine-anchored OT program. Treatment will prioritize establishing a streamlined HEP the patient can remain compliant with, caregiver coaching if appropriate, and practical accommodations and equipment recommendations to maximize safety and function within anatomical limits. Home Exercise to be reviewed next session per patient's request Program Reviewed with Goals,Progress Being Made,Home Exercise Program Patient Patient Good Understanding Plan Length of treatment 12 (weeks) Plan of Care Start 06/28/25 Plan of Care End 09/20/25 Date Treatment Frequency Once a Week Treatment Duration 45 Minutes Treatment Emphasis HEP, goniometer/MMT Next Session Therapeutic Contents Active Range of Motion,Adaptive Equipment Education, Client Education,Functional Activities,Home Exercise Program,Manual Therapy,Education,Neuromuscular Re- Education,Self-Care,Stretching/Flexibility Activities, Therapeutic Activities,Therapeutic Exercises,Modalities Modalities As Needed Types of Modalities Other Additional Types of MHP Modalities Patient Instruction Plan of Care,Questions/Concerns Patient Continue with Current Program Recommendations Functional Wrist/Hand Scan Hand Side Sensory Assessment Sensory Profile2 OT Outpatient Treatment Note - Adult Start: 06/24/25 18:43 Freq: Status: Active Protocol: Document 08/09/25 13:18 (Rec: 08/09/25 13:29 [id number]) OT Outpatient Adult Treatment Note Visit Information Visit Number 4 of 12 Plan of Care Dates 06/28/25-09/20/25 Insurance no pre-auth;no copay;KX modifier required after 19 OT Information visits pcy Setting Treatment Setting Outpatient Care Visit Type Note Type Discharge Summary General Information General Information Per scheduling, pt feels adequately prepared to manage symptoms with information provided and has requested discharge. Insufficient visits to adequately assess progress as pt seen for eval and 3 treatments, she cancelled 3 and no showed 1. In last visit pt self reported subjective improvements. Pt with inconsistent compliance with HEP and treatment recommendations and as a result, limited objective improvements. Will discharge at this time per patient request. - - Objective Objective Shoulder AROM (against gravity): Measurements Flexion R 123, L 138 Extension R 55, L 52 Abduction R 138, L 135 ER R 45, L 35 MMT shoulder: flexion R 4-, L 4- extension R 4-, L 4 IR R 4-, L 4- ER R 3+, L 3+ Short Term Goals Within 6 weeks: 1. Patient will demonstrate independent and consistent performance of a pain-modulated bilateral shoulder HEP (including posture/scapular setting, assisted elevation within tolerance, and isometrics) at least five days per patient report and in-clinic return demo with pain increase no greater than two points on a 0?10 scale. [ UNMET 08/09/25] 2. Patient will identify and adopt at least two joint- protection or task-modification strategies for priority ADLs (for example, storing essentials below shoulder height and using bilateral or forearm-supported strategies for carrying), demonstrating them in session with safe body mechanics and minimal cues. [UNMET ] Fpc Goals Within 10 weeks: 1. Patient will maintain HEP adherence at least five days per week and progress repetitions or hold times by 20?30% without symptom flare exceeding 24 hours, as evidenced by patient report and in-clinic review. [ UNMET 08/09/25] 2. Patient will complete overhead-adjacent self-care ( hair care or upper-chest/neck hygiene) using compensatory strategies with right shoulder elevation to at least 90 degrees as observed in clinic, reporting pain no greater than 3/10 and no increase in next-day soreness beyond baseline. [UNMET 08/09/25] 3. Patient will increase perceived upper-extremity functional independence as demonstrated by at least 15 points on the QuickDASH. [UNMET 08/09/25] - - Assessment Patient Response to Good Treatment Rehabilitation Fair Potential Progress Towards Delayed Progress Goals Assessment of Pt is a 79 year old female referred to occupational Improvement therapy with a long-standing history of rotator cuff tears resulting in chronic shoulder pain, postural deficits, and functional limitations during activities involving overhead reach, lifting, and sustained arm elevation. At evaluation, she demonstrated significant weakness and restricted range of motion consistent with chronic cuff pathology, compensatory movement patterns , and a kyphotic postural presentation contributing to shoulder dysfunction. Pain was present with functional reaching and general shoulder use, though she reported the ability to complete most basic ADLs using adaptive strategies and spousal assistance. Over the course of treatment, the patient attended a total of four visits (evaluation plus three treatment sessions), cancelling three appointments and no-showing one, resulting in insufficient frequency to adequately assess objective progress. Treatment sessions focused on gentle anterior deltoid activation, supported and assisted range of motion, postural retraining, and review of her home exercise program. Education emphasized shoulder ?rules? for safe movement, activity modification, and compensatory strategies to reduce strain on the rotator cuff. The patient was also instructed in postural and scapular stabilization activities to improve alignment and functional reach. Subjectively, the patient reported improvement in both pain levels and functional tolerance with daily activities and demonstrated satisfaction with her progress. However, her exercise performance continued to require maximal cueing for correct form, and carryover of proper technique between sessions appeared limited. Compliance with her home exercise program and adherence to treatment recommendations were inconsistent, contributing to minimal measurable objective improvement during the short treatment duration. Per patient request and scheduling communication, she reports feeling adequately prepared to manage her symptoms independently using the education and exercises provided. Given the limited number of completed visits, inconsistent adherence, and patient- reported readiness for discharge, she will be discharged from occupational therapy at this time. Continued independent performance of her home program and attention to activity modification and postural correction are recommended to support ongoing function and symptom management. - Plan Therapy Discharge to Home Exercise Program Recommendations Amount of Therapy No Further Therapy Recommended Therapeutic Contents Active Range of Motion,Adaptive Equipment Education, Client Education,Functional Activities,Home Exercise Program,Manual Therapy,Education,Neuromuscular Re- Education,Self-Care,Stretching/Flexibility Activities, Therapeutic Activities,Therapeutic Exercises,Modalities
== END 2025-08-10 09:36 | disposition home or self-care (01) ==
LOC: OT 09:00
PROVIDERS: Family Provider Family Medicine; PCP Family Medicine; Referring Provider Family Medicine; Visit Provider Family Medicine
DX: M25.511 Pain in right shoulder (principal); G89.29 Other chronic pain
CPT/HCPCS: 97110; 97165; 97530

== ENCOUNTER 2025-08-25 10:45 | Outpatient (RCR) | payer MEDICARE, OTHER, SELFPAY ==
[2025-03-04 14:20] VITALS: BMI 19.0
--- NOTE | 2025-08-19 11:39 | PT.OIE ---
Current Diagnoses Pain in right shoulder (08/19/25) Pain in left shoulder (08/19/25) Past Medical History (Last Updated 07/19/25 @ 12:46 by Spencer Burciaga MD) Acute hyponatremia Cancer Cataracts, bilateral (~2015) Chicken pox Chronic hyponatremia Chronic renal failure, stage 3 (moderate) Constipation Cyclothymia Depression Diverticular disease of colon Dysphagia Fecal incontinence (~2014) Fracture of pubic ramus Fractures (~2004) Gastroesophageal reflux disease with esophagitis Genital warts (~1984) Heart palpitations History of urinary incontinence (~2014) Incomplete left bundle branch block (LBBB) Lumbar spinal stenosis Measles Mixed urge and stress incontinence Osteopenia Osteoporosis, unspecified Overactive bladder Primary osteoarthritis of right hip Primary osteoarthritis of right knee Sciatica Urge incontinence Urinary frequency UTI (urinary tract infection) Viral cardiomyopathy Weight loss Past Surgical History (Last Reviewed 02/09/25 @ 07:45 by Joshua Chin MD) Anesthesia H/O hernia repair History of vaginal hysterectomy (~1996) Melanoma (~1981) Visit Care Team Role Provider Type Daniel Ferro MD Family Provider Physician Primary Care Provider Specialty: Family Practice Address: [address] [place] [address], [facility] Email: [email or web address] Didier Jeffrey MD Attending Provider Physician Referring Provider Specialty: Orthopedic Surgery Address: [address] [place] [address], [facility] Email: [email or web address] Physical Therapy Initial Evaluation PT OP: Cervical/Upper Extremity Start: 08/19/25 07:27 Freq: Status: Active Protocol: Document 08/19/25 07:27 EVERARDO (Rec: 08/19/25 11:38 EVERARDO [id number]) Out-Patient Physical Therapy Visit Information Visit Information Visit Type Initial Evaluation Visit Start Time 08:25 Visit Stop Time 09:00 Visit Number 1 Number of AVIATION ELECTRONIC WARFARE OPERATOR Visits 0 Progress Note Due 09/18/25 OP-PT Subjective Patient Comments Patient Comments History of current diagnosis: Patient reports she has a torn rotator cuff in her R shoulder secondary to multiple falls. She reports she has not fallen since January 2025. She reports that she also has shoulder pain in her L side and thinks she may have a tear in that shoulder as well. She notes that her ROM is impaired on her R side. Occupation: Retired - from [employer], [place] Physical activities/ hobbies: Does PT exercises sometimes Pain location: Bilateral anterior shoulders Pain description: achy, sharp sometimes on R. Dull, not as sharp L. Pain 0-10/10 (current): 4/10 Pain 0-10/10 (worst): 10/10, when using shoulder and when holding a glass of water Pain 0-10/10 (best): 2/10 Aggravating: Reaching, lifting, reaching laterally, holding a glass of water Alleviating: rest Function prior to injury: Independent with all ADLs Function current: Independent with all ADLs - limited with putting on a jacket, reaching dishes in kitchen, grabbing a side panel hanger with clothes. Current PT exercises: Patient goals: Improve ROM, improve pain Patient Questionnaires Quick Dash- Upper Extremity Quick Dash UE Score 38.6 Quick Dash UE 20 to 39% Impaired (Score 20-39) Impairment Shoulder Goniometric Range of Motion Shoulder Active Testing Position Sitting Flexion 135 Abduction 90 Comments PROM: Flexion: 140 Abduction: 90 ER: 70 IR: 30 All ranges pain limited Left Testing Position Sitting Flexion 135 Abduction 90 Comments PROM: Flexion: 135 Abduction: 90 ER: 60 IR: 30 All ranges pain limited Shoulder Strength Shoulder Manual Muscle Testing Right Flexion 3- Fair- Abduction (C5) 3+ Fair+ Adduction 3- Fair- External Rotation 3- Fair- Left Flexion 3+ Fair+ Abduction (C5) 3- Fair- External Rotation 3- Fair- Internal Rotation 3- Fair- Therapeutic Exercises Sitting Exercises Scaption table slides Reps/Minutes x20 Comments pain free ranges Flexion table slides Reps/Minutes x20 Comments Pain free ranges Physical Therapy Assessment Rehab Potential Rehabilitation Fair Potential Evaluation Complexity Number of Personal 0 Factors/ Comorbidities Number of Body 1-2 Systems Impaired Clinical Stable Presentation at Evaluation Impairments Impairments Activity Tolerance,Balance,Coordination,Functional Activities,Functional Mobility,Pain,Posture,ROM, Strength Goals Three Impairment Bilateral shoulder strength Short Term Goal (STG Patient will demonstrate an increase in bilateral ) shoulder flexion strength to 3+/5 in order to better function with lifting small items. STG Duration 4 weeks Correction Goal (LTG) Patient will demonstrate an increase in bilateral shoulder flexion strength to 4/5 in order to better function with lifting small items. LTG Duration 8 weeks Two Impairment General function Short Term Goal (STG Patient will report a GROC of 20% in order to show an ) increase in self-perceived function. STG Duration 4 weeks Correction Goal (LTG) Patient will report a GROC of 40% in order to show an increase in self-perceived function. LTG Duration 8 weeks One Impairment Bilateral shoulder ROM Short Term Goal (STG Patient will demonstrate an increase in bilateral ) shoulder flexion AROM to 140 in order to better function with reaching. STG Duration 4 weeks Ship Steward Goal (LTG) Patient will demonstrate an increase in bilateral shoulder flexion AROM to 145 in order to better function with reaching. LTG Duration 8 weeks Assessment Summary Assessment Patient presenting to PT with complaints of bilateral shoulder pain and weakness. Functional deficits include reaching and lifting. Objective investigation revealed deficits in bilateral shoulder strength (see objective measures: flexion, abduction, ER, IR MMTs), and ROM ( See objective measures: flexion, ER, abduction AROM). Presentation is consistent with previously diagnosed bilateral rotator cuff tears and patient will benefit from PT to address deficits, maximize function, and minimize pain. Physical Therapy Plan Frequency and Duration Frequency of 2x/Week Treatment Duration of 12 treatment (weeks) Plan of Care Start 08/19/25 Date Plan of Care End 08/31/25 Date Therapeutic Interventions Therapeutic Coordination Training,Home Exercise Program,Joint Interventions Mobilizations,Manual Therapy,Neuromuscular Re-education ,Patient/Caregiver Education,Self-Care/Home Management, Taping,Therapeutic Activities,Therapeutic Exercises Modalities Biofeedback,Cold Pack/Ice Massage,Electric Stimulation, Hot Packs,Infrared Therapy,Iontophoresis,Ultrasound, Vasopneumatic Devices Next Visit Focus/Plan Next Note Type Treatment Note Next Visit Plan Initiate plan of care with focus on shoulder strengthening and ROM in symptom-free ranges.
--- NOTE | 2025-08-23 10:38 | PT.OTN ---
Current Diagnoses Pain in right shoulder (08/23/25) Pain in left shoulder (08/23/25) Physical Therapy Treatment Note PT OP: Cervical/Upper Extremity Start: 08/19/25 07:27 Freq: Status: Active Protocol: Document 08/23/25 07:28 EVERARDO (Rec: 08/23/25 10:36 EVERARDO [id number]) Out-Patient Physical Therapy Visit Information Visit Information Visit Type Treatment Note Visit Start Time 09:00 Visit Stop Time 09:40 Visit Number 2 Number of HUMAN RESOURCES PSYCHOLOGIST Visits 0 Progress Note Due 09/18/25 OP-PT Subjective Patient Comments Patient Comments Patient reports she has been doing her home exercises. No changes in presentation. Therapeutic Exercises Sitting Exercises Sammy scaption Reps/Minutes x20 Sammy flexion Reps/Minutes x20 each side Scaption table slides Reps/Minutes x20 each side Comments pain free ranges Flexion table slides Reps/Minutes x20 each side Comments Pain free ranges Standing Exercises Band Biceps curl Resistance level 1 Reps/Minutes 2x6 each side Band IR Resistance green band on L, pink on R Reps/Minutes 2x10 each side Band ER Resistance pink band Reps/Minutes 2x10 each side Physical Therapy Assessment Goals Three Impairment Bilateral shoulder strength Short Term Goal (STG Patient will demonstrate an increase in bilateral ) shoulder flexion strength to 3+/5 in order to better function with lifting small items. STG Duration 4 weeks Sifter And Miller Goal (LTG) Patient will demonstrate an increase in bilateral shoulder flexion strength to 4/5 in order to better function with lifting small items. LTG Duration 8 weeks Two Impairment General function Short Term Goal (STG Patient will report a GROC of 20% in order to show an ) increase in self-perceived function. STG Duration 4 weeks Residential Goal (LTG) Patient will report a GROC of 40% in order to show an increase in self-perceived function. LTG Duration 8 weeks One Impairment Bilateral shoulder ROM Short Term Goal (STG Patient will demonstrate an increase in bilateral ) shoulder flexion AROM to 140 in order to better function with reaching. STG Duration 4 weeks Sifter And Miller Goal (LTG) Patient will demonstrate an increase in bilateral shoulder flexion AROM to 145 in order to better function with reaching. LTG Duration 8 weeks Assessment Summary Assessment Treatment was initiated with focus on shoulder strengthening and ROM in symptoms-free ranges. Patient toelrated treatment fairly well with no lasting increases in symptoms. She struggled to tolerated band ER exercises with minimal resistance so plan to follow up on this next session and consider side lying ER AROM instead. Also plan next session to follow up on home exercises and continue with plan of care. Physical Therapy Plan Frequency and Duration Frequency of 2x/Week Treatment Duration of 12 treatment (weeks) Plan of Care Start 08/19/25 Date Plan of Care End 11/17/25 Date Next Visit Focus/Plan Next Note Type Treatment Note Next Visit Plan Continue with plan of care with focus on shoulder strengthening and ROM in symptom-free ranges. Current HEP: Sammy flexion Flexion table slides Abduction table slides Band ER Band IR Band biceps curls
--- NOTE | 2025-08-25 14:32 | PT.OTN ---
Current Diagnoses Pain in right shoulder (08/25/25) Pain in left shoulder (08/25/25) Physical Therapy Treatment Note PT OP: Cervical/Upper Extremity Start: 08/19/25 07:27 Freq: Status: Active Protocol: Document 08/25/25 10:49 JZ (Rec: 08/25/25 12:27 JZ [id number]) Out-Patient Physical Therapy Visit Information Visit Information Visit Type Treatment Note Visit Start Time 10:50 Visit Stop Time 11:30 Visit Number 3 Progress Note Due 09/18/25 OP-PT Subjective Patient Comments Patient Comments Patient reports her shoulders are more painful today. She reports they felt good after her last session. Therapeutic Exercises Sitting Exercises Sammy scaption Reps/Minutes x10 Sammy flexion Reps/Minutes x10 each side Scaption table slides Reps/Minutes x20 each side Comments pain free ranges Flexion table slides Reps/Minutes x20 each side Comments Pain free ranges Standing Exercises Band row Resistance bilateral Equipment Used green band Reps/Minutes x10 Band shoulder extension Resistance bilateral Equipment Used pink band Reps/Minutes 3x10 Band triceps extension Reps/Minutes 2x10 each side Comments pink Standing pendulums Reps/Minutes x20 each direction Band Biceps curl Resistance pink band Reps/Minutes 2x10 each side Band IR Resistance [place] band Reps/Minutes 2x10 each side Band ER Resistance pink band Reps/Minutes 2x10 each side Physical Therapy Assessment Goals Three Impairment Bilateral shoulder strength Short Term Goal (STG Patient will demonstrate an increase in bilateral ) shoulder flexion strength to 3+/5 in order to better function with lifting small items. STG Duration 4 weeks Finishing Tunnel Operator Goal (LTG) Patient will demonstrate an increase in bilateral shoulder flexion strength to 4/5 in order to better function with lifting small items. LTG Duration 8 weeks Two Impairment General function Short Term Goal (STG Patient will report a GROC of 20% in order to show an ) increase in self-perceived function. STG Duration 4 weeks Assisted Goal (LTG) Patient will report a GROC of 40% in order to show an increase in self-perceived function. LTG Duration 8 weeks One Impairment Bilateral shoulder ROM Short Term Goal (STG Patient will demonstrate an increase in bilateral ) shoulder flexion AROM to 140 in order to better function with reaching. STG Duration 4 weeks Finishing Tunnel Operator Goal (LTG) Patient will demonstrate an increase in bilateral shoulder flexion AROM to 145 in order to better function with reaching. LTG Duration 8 weeks Assessment Summary Assessment Patient presenting to PT with increases in pain levels relative to previous session. Because of this, strengthening loads were reduced and exercises were modified as needed to stay in relatively pain-free ranges. Patient struggled to tolerate treatment today, reporting increased pain levels throughout session. Plan next session to follow up on home exercises and continue with plan of care. Physical Therapy Plan Frequency and Duration Frequency of 2x/Week Treatment Duration of 12 treatment (weeks) Plan of Care Start 08/19/25 Date Plan of Care End 11/17/25 Date Next Visit Focus/Plan Next Note Type Treatment Note Next Visit Plan Continue with plan of care with focus on shoulder strengthening and ROM in symptom-free ranges. Current HEP: Sammy flexion Flexion table slides Abduction table slides Band ER Band IR Band biceps curls
--- NOTE | 2025-09-26 14:27 | PT.OPDS ---
Current Diagnoses Pain in right shoulder (08/25/25) Pain in left shoulder (08/25/25) Visit Care Team Role Provider Type Daniel Ferro MD Family Provider Physician Primary Care Provider Specialty: Family Practice Address: [address] [place] [address], [id number] Email: [email or web address] Didier Jeffrey MD Attending Provider Physician Referring Provider Specialty: Orthopedic Surgery Address: [address] [place] [address], [id number] Email: [email or web address] Visit Number Visit Number 3 Discharge Summary PT OP: Cervical/Upper Extremity Start: 08/19/25 07:27 Freq: Status: Active Protocol: Document 09/26/25 14:24 EVERARDO (Rec: 09/26/25 14:27 EVERARDO [id number]) Out-Patient Physical Therapy Visit Information Visit Information Visit Type Discharge Summary Physical Therapy Assessment Assessment Summary Assessment Patient has canceled her remaining PT visits and will not return for follow up. Patient will be discharged at this time due to lack of follow up. For a description of her most recent presentation relating to her shoulders, please refer to her last note on 08/25/2025. Physical Therapy Plan Next Visit Focus/Plan Next Visit Plan N/A - discharge plan of care
== END 2025-10-03 13:22 | disposition home or self-care (01) ==
LOC: PHYS 10:45
PROVIDERS: Family Provider Family Medicine; PCP Family Medicine; Referring Provider Orthopaedic Surgery; Visit Provider Orthopaedic Surgery
DX: M25.511 Pain in right shoulder (principal); M25.512 Pain in left shoulder
CPT/HCPCS: 97110; 97161

== ENCOUNTER → 2025-09-15 14:00 | Outpatient (CLI) | payer MEDICARE, OTHER, SELFPAY ==
[2025-03-04 14:20] VITALS: BMI 19.0
--- NOTE | 2025-09-15 14:01 | DI.RAD.S_ITS ---
PROCEDURE: XR DEXA AXIAL SKELETON INDICATIONS: osteoporosis screening COMPARISON: [facility], CR, XR DEXA AXIAL SKELETON, 08/01/2023, 10:00. [facility], CR, XR DEXA AXIAL SKELETON, 07/24/2021, 15:35. FINDINGS: Lumbar Spine: Bone mineral density 0.993 g/cm2, T score 0.1, no significant change compared to prior. Left Femoral Neck: Bone mineral density 0.735 g/cm2, T score -1.0. Left Hip: Bone mineral density 0.748 g/cm2, T score -1.6, decreased by 5.9%. Fracture Risk Calculation (when applicable): 10-year fracture risk of a major osteoporotic fracture 15 percent and of a hip fracture 7.8 percent. (T score greater or equal to -1.0 to: NORMAL) (T score from -1.1 to -2.4: OSTEOPENIA) (T score less than or equal to -2.5: OSTEOPOROSIS) IMPRESSION: Low bone mineral density (osteopenia) by WHO classification. Follow-up guidelines as follows: Osteoporosis: Consider a repeat DEXA and Vertebral Fracture Assessment (VFA) exam in 2 years or sooner if medically necessary, to reassess this patient's status. Osteopenia: Consider a repeat DEXA in 2-3 years to reassess this patient's status, or if there is a new clinical indication. Normal: Consider a repeat DEXA in 5 years or sooner, or if there is a new clinical indication. All treatment decisions require clinical judgment and consideration of individual patient factors, including patient preferences, comorbidities, previous drug use, risk factors not captured in the FRAX model (e.g., frailty, falls, vitamin D deficiency, increased bone turnover, interval significant decline in bone density ) and possible under- or over-estimation of fracture risk by FRAX. In addition, the NOF Guide recommends that FDA-approved medical therapies be considered in postmenopausal women and men age >= 50 years with a: * Hip or vertebral (clinical or morphometric) fracture * T-score of <=-2.5 at the spine or hip * Ten-year fracture probability by FRAX of >= 3% for hip fracture or >=20% for major osteoporotic fracture. Dictated by: Kirk Chapin M.D. on 09/17/2025 at 13:35 Approved by: Kirk Chapin M.D. on 09/17/2025 at 13:36
== END ==
LOC: RAD 14:01
PROVIDERS: Family Provider Family Medicine; PCP Family Medicine; Referring Provider Family Medicine; Visit Provider Family Medicine
DX: M85.88 Other specified disorders of bone density and structure, other site (principal); Z78.0 Asymptomatic menopausal state
CPT/HCPCS: 77080